=== PATIENT | female | born 1960 ===

== ENCOUNTER 2024-08-03 16:50 | Outpatient (CLI) | payer OTHER, SELFPAY ==
--- OUTSIDE RECORDS SUMMARY | 2024-08-03 16:55 | XMS_ITS | Encounter Summary ---
Author Organization [employer] Address [address] [place] [address] Care Team Providers Care Franchise Sales Manager Name Role Phone Clifford Newell Primary Care Provider + [phone] Encounter Details Date Type Department Care Team (Late st Contact Info) Description 07/31/2024 Documentation [facility] - [facility] [address] [place] [phone] Amanda Russell, CARDIAC SURGEON Social History Tobacco Use Types Packs/Day Years Used Date Smoking Tobacco: Never Smokeless Tobacco: Never Alcohol Use Standard Drinks/Week Comments Never 0 (1 standard drink = 0.6 oz pur e alcohol) Utilities Answer Date Recorded In the past 12 months, has t he electric, gas, oil, or water company threatened to shut off services in your home? No 07/12/2024 Interpersonal Safety Answer Date Record ed How often does anyone, venu thrasher family and friends, physically hurt you? Never 07/12/2024 How often does anyone, venu thrasher family and friends, insult or talk down to you? Never 07/12/2024 How often does anyone, venu thrasher family and friends, threaten you with harm? Never 07/12/2024 How often does anyone, venu thrasher family and friends, scream or curse at you? Never 07/12/2024 Housing Stability Answer Date Recorded What is your living situation today? I have a [facility] place to live 07/12/[address] you li ve. Do you have problems with any of the following? None of the above 07/12/2024 Food Insecurity Answer Date Recorded Within the past 12 months, y ou worried that your food would run out before you got money to buy more. Never true 07/12/2024 Within the past 12 months, t he food you bought just didn't last and you didn't have money to get more. Never true 07/12/2024 Transportation Needs Answer Date Record ed In the past 12 months, has l ack of reliable transportation kept you from medical appointments, meetings, work or from getting things needed for daily living? No 07/12/2024 Financial Resource Strain Answer Date R ecorded How hard is it for you to pa y for the very basics like food, housing, medical care, and heating? Would you say it is: Not hard at all 07/12/2024 Employment Answer Date Recorded Do you want help finding or keeping work or a job? I do not need or want help 07/12/2024 Family and Community Support Answer Baudilio e Recorded If for any reason you need h elp with day-to-day activities such as bathing, preparing meals, shopping, managing finances, etc., do you get the help you need? I don't need any help 07/12/2024 Feeling Lonely or Isolated 0 07/12 Educational Attainment Answer Date Kulwant rded Do you speak a language other than Emirati at [facility]? No 07/12/2024 Do you want help with school or training? For example, starting or completing job training or getting a high school diploma, GED or equivalent. No 07/12/2024 Physical Activity Answer Date Recorded Number of minutes of exercise per week 0 07/12/2024 Alcohol Use Answer Date Recorded 5 or More Drinks Per Day Past 12 Months 0 07/31/2024 Depression Answer Date Recorded Calculation of above two rows 0 Stress Answer Date Recorded Stress means a situation in which a person feels tense, restless, nervous, or anxious, or is unable to sleep at night because his or her mind is troubled all the time. Do you feel this kind of stress these days? Not at all 07/12/2024 Disabilities Answer Date Recorded Because of a physical, menta l, or emotional condition, do you have serious difficulty concentrating, remembering, or making decisions? (5 years or older) No 07/12/2024 Because of a physical, menta l, or emotional condition, do you have difficulty doing errands alone such as visiting a doctor's office or shopping? (15 years or older) No 07/12/2024 Substance Use Answer Date Recorded How many times in the past y ear have you used prescription drugs for non-medical reasons? Never 07/12/2024 How many times in the past year have you used [place] legal drugs? Never 07/12/2024 Comments No Sex and Gender Information Value Date Recorded Sex Assigned at Not on file Legal Sex Female 10:12 AM CDT Gender Identity Not on file Sexual Orientation Not on file documented as of this encounter Progress Notes * MP Rivera - 07/31/2024 10:09 AM ESTSummary: Hospice Referral Initial Social Work Assessment Patient:Francy Bailey :1960 alteration worker contacted today by patient's wavptevc-yl-vco, Wolfgang Bailey. Per [id number], patient and family have decided to transition to hospice care at home. alteration worker referred patient to [facility] today . Family was provided with manager social's contact information. Family was encouraged to contact me with any further questions or concerns. AINER FILLER documented in this encounter Plan of Treatment Not on file documented as of this encounter Visit Diagnoses Not on filedocumented in this encounter Care Teams Franchise Sales Manager Relationship Specialty Start Date End Date Clifford Newell PA [address] [place] [address] JERAD Ling [phone] PCP - General Physician Aed Trainer 10/14/23 documented as of this encounter
--- OUTSIDE RECORDS SUMMARY | 2024-08-03 16:55 | XMS_ITS | Encounter Summary ---
Author Organization [employer] Address [address] [place] [address] Care Team Providers Care Paste Mixer Liquid Name Role Phone Clifford Newell Primary Care Provider + [phone] Reason for Referral * Consultation (Routine) - New Request Specialty Diagnoses / Procedures Referred By Ana Paula anne Referred To Contact Hospice Services Diagnoses Multiple myeloma without remission (HCC) Caleb Pacheco MD [address] [facility] [employer] [address] [place] [phone] Phone: tel: fax: Referral ID Status Reason Start Date Expiration Date Visits Requested Visits Authorized [id number] New Request Specialty Services Required 07/25/2024 07/25/2025 1 1 Encounter Details Date Type Department Care Team (Late st Contact Info) Description 07/25/2024 Orders Only [facility] - [facility] [place] [address] Caleb Pacheco MD [address] [employer] [address] [place] [phone] Multiple myeloma without remission (HCC) (Primary Dx) Social History Tobacco Use Types Packs/Day Years [...] your living situation today? I have a [facility] place to live 07/12/2024 Think about the [...] Do you speak a language other than Comoran at [facility]? No 07/12/2024 Do you want help with school or training? For example, starting or completing job training or getting a high school diploma, GED or equivalent. No 07/12/2024 Physical Activity Answer Date Recorded Number of minutes of exercise per week 0 07/12/2024 Alcohol Use Answer Date Recorded 5 or More Drinks Per Day Past 12 Months 0 07/12/2024 Depression Answer Date Recorded Calculation of above [...] on file documented as of this encounter Plan of Treatment Scheduled Referrals Name Type Priority Associated Diagnoses Order Schedule Ambulatory referral to Hospice Outpatient Referral Routine Multiple myeloma without remission (HCC) Expected: 07/25/2024, Expires: 07/25/2025 documented as of this encounter Visit Diagnoses Diagnosis Multiple myeloma without remission (HCC)- Primary documented in this encounter Care Teams Paste Mixer Liquid Relationship Specialty Start Date End Date Clifford Newell PA [address] [place] [address] [place] [address] PCP - General Physician Powder Truck Driver 10/14/23 documented as of this encounter
--- OUTSIDE RECORDS SUMMARY | 2024-08-03 16:55 | XMS_ITS ---
Author Organization [employer] Address [address] [place] [address] Care Team Providers Care Cloth Printing Back Tender Name Role Phone Clifford Newell Primary Care Provider + [phone] Active Problems Problem Noted Date Diagnosed Date Sepsis 07/12/2024 Multiple myeloma without remission 06/16/2022 Current Oncology Plans [facility] DENOSUMAB (XGEVA) EVERY 28 DAYS* Plan Start Date:07/04/2024 Plan Provider:Caleb Pacheco MD Linked Problems Multiple myeloma without rem ission (HCC) Treatment Medications denosumab (XGEVA)sodium chlo ride 0.9 % (NS) [facility] LINE CARE - USE WITH INFUSIONS* Plan Start Date:02/29/2024 Linked Problems Multiple myeloma without rem ission (HCC) Treatment Medications No medications scheduled. [facility] Multiple Myeloma - elotuzumab (Empliciti) IV d1,8,15,22 + pomalidomide (Pomalyst) PO d1-21, fb elotuzumab IV d1 + pomalidomide PO d1-21, every 28 days * Plan Start Date:06/19/2024 Plan Provider:Caleb Pacheco MD Linked Problems Multiple myeloma without rem ission (HCC) Treatment Medications Current Day (Day 1 , Cycle 1 - Planned for 07/07/2024) Next Day (Day 8, Cycle 1 - Planned for 07/14/2024) dexamethasone (DECADRON) IVPBelotuzumab (Epliciti) infusiongranisetron (KYTRIL)sodium chloride 0.9 % (NS) dexAMETHasone (DECADRON) 20 mg in sodium chloride 0.9 % (NS) 50 mL IVPBelotuzumab (EMPLICITI) 1,000 mg in sodium chloride 0.9 % (NS) 290 mL infusiongranisetron (KYTRIL) injection 1 mgsodium chloride 0.9 % infusion elotuzumab (EMPLICITI) 1,000 mg in sodium chloride 0.9 % (NS) 290 mL infusiongranisetron (KYTRIL) injection 1 mgsodium chloride 0.9 % infusion Past Plans ONCOLOGY TREATMENT Plan Name Start Date Discontinue Date Treatment Medications Discontinue Reason Plan Provider Cycles [facility] Multiple Myeloma - carfilzomib (Kyprolis) 20/56 days 1,8,15 + pomalidomide (Pomalyst) 1mg PO days 1-21 + Dexamethasone weekly every 28 days 02/29/20 24 06/19/2024 Carfilzomib chemo infusiondexamethasone (DECADRON) IVPBdextrose 5 % (D5W)granisetron (KYTRIL)sodium chloride 0.9 % (NS) Progression Caleb Pacheco MD 4 of 12 cycles started [facility] Multiple Myeloma - daratumumab (Darzalex) IV d1,8,15,22 fb D1,15 fb d1 + pomalidomide (Pomalyst) PO d1-21 every 28 days 11/03/19 23 02/17/2024 daratumumab-hyaluronid ase-fihj (DARZALEX FASPRO) 1,800 mg-30,000 unit/15 mLsodium chloride 0.9 % (NS) Progression Caleb Pacheco MD 15 of 24 cycles started Therapy Infusion Plan 1 Plan Name Start Date Discontinue Date Treatment Medications Discontinue Reason Plan Provider [facility] BONE MODIFYING AGENT DENOSUMAB (PROLIA, XGEVA) 06/06/2024 06/13/2024 sodium chloride 0.9 % (NS)sodium chloride 0.9% (NS) Therapy Complete Caleb Pacheco MD [facility] BONE MODIFYING AGENT DENOSUMAB (PROLIA, XGEVA) 06/29/2023 06/06/2024 denosumab (XGEVA)sodium chloride 0.9 % (NS) Therapy Complete Caleb Pacheco MD [facility] BONE MODIFYING AGENT DENOSUMAB (PROLIA, XGEVA) 06/16/2022 06/29/2023 denosumab (XGEVA)sodium chloride 0.9 % (NS) Therapy Complete Caleb Pacheco MD Therapy Infusion Plan 2 Plan Name Start Date Discontinue Date Treatment Medications Discontinue Reason Plan Provider [facility] FILGRASTIM 01/19/2023 12/24/2023 No medication s scheduled. Therapy Complete Caleb Pacheco MD [facility] FILGRASTIM 11/25/2022 01/19/2023 No medication s scheduled. Therapy Complete Caleb Pacheco MD Radiation Treatments * No radiation treatments are documented for this patient in [facility]. Treatments may have been administered in another system.
--- OUTSIDE RECORDS SUMMARY | 2024-08-03 16:55 | XMS_ITS | Encounter Summary ---
Author Organization [employer] Address [address] [place] [address] Care Team Providers Care Roustabout Supervisor Name Role Phone Clifford Newell Primary Care Provider + [phone] Encounter Details Date Type Department Care Team (Late st Contact Info) Description 07/28/2024 Documentation [facility] - [facility] [address] [place] [phone] Shelby Nuñez RN Social History Tobacco Use Types Packs/Day Years [...] your living situation today? I [facility] a [facility] to live 07/12/2024 Think about the [...] Do you speak a language other than Frisian at [facility]? No 07/12/2024 Do you want help with [...] as of this encounter Progress Notes * Shelby Nuñez RN - 07/28/2024 8:24 AM EST Path report scanned TECHNIC ASSEMBLER documented in this encounter Plan of Treatment Not on file documented as of this encounter Visit Diagnoses Not on filedocumented in this encounter Care Teams Roustabout Supervisor Relationship Specialty Start Date End Date Clifford Newell PA [address] [place] [address] JER[place] Ling [phone] PCP - General Physician Asphalt Spreader Operator 10/14/23 documented as of this encounter
--- OUTSIDE RECORDS SUMMARY | 2024-08-03 16:55 | XMS_ITS | Encounter Summary ---
Author Organization [employer] Address [address] [place] [address] Care Team Providers Care District Manager Primary Care Sales Name Role Phone Clifford Newell Primary Care Provider + [phone] Encounter Details Date Type Department Care Team (Late st Contact Info) Description 07/28/2024 Social Work [facility] - [facility] [address] [place] [phone] Amanda Russell, SCROLL SAW OPERATOR Social History Tobacco Use Types Packs/Day Years [...] your living situation today? I have a [facility] place to live 07/12/2024 Think about [...] Do you speak a language other than [place] Korean at [facility]? No 07/12/2024 Do you want help with [...] encounter Progress Notes * MP Rivera - 07/28/2024 3:11 PM ESTSummary: Social work Note Initial Social Work Assessment Patient:Francy Bailey :1960 [employer] worker contacted by patient's brother, Rodney Thurmanibrahima. Patient's brother reported that patient has relocated to her son's home in [place], [place]. and she will remain there permanently. Brother reported that caregivers will be hired to assist with patients care. Per patient's brother, family and patient will decide this weekend if they wish to proceed with a hospice referral. Family provided with social director's contact information. They agreed to follow up with social director for hospice or home health referrals. MAKER documented in this encounter Plan of Treatment Not on file documented as of this encounter Visit Diagnoses Not on filedocumented in this encounter Care Teams District Manager Primary Care Sales Relationship Specialty Start Date End Date Clifford Newell PA [address] [place] [address] [place] [phone] PCP - General Physician Lehr Loader 10/14/23 documented as of this encounter
--- OUTSIDE RECORDS SUMMARY | 2024-08-03 16:55 | XMS_ITS | Clinical Summary ---
Author Organization [employer] Address [address] [place] [address] Care Team Providers Care Back Winder Name Role Phone Clifford Newell Primary Care Provider + [phone] Allergies Active Allergy Reactions Criticality Noted Date Comments Ampicillin Hives,Shortness Of Breath High 06/16/2022 07/12/24: Tolerated Rocephin Codeine 06/16/2022 Indomethacin 06/16/2022 Morphine 06/16/2022 Penicillin Hives High 06/16/2022 07/12/24: Tolerated Rocephin Medications busPIRone (BUSPAR) 15 MG tablet Take 1 tablet (15 mg total) by mouth 3 (three) times daily. 0 024 2024 Active cyanocobalamin 1000 MCG tablet Take 1 tablet (1,000 mcg total) by mouth daily. 0 024 2024 Active DULoxetine (CYMBALTA) 30 MG capsule Take 1 capsule (30 mg total) by mouth daily. 30 tablet 5 2024 Active ergocalciferol (DRISDOL) 1,250 mcg (50,000 unit) capsule Take 1 capsule (50,000 Units total) by mouth once a week. 4 capsule Active Additional Information Patient not taking.Reported on 07/21/2024 meclizine (ANTIVERT) 25 mg tablet Take 1 tablet (25 mg total) by mouth 4 (four) times daily as needed. 60 tablet 5 Active oxyCODONE (ROXICODONE) 10 MG tablet Take 1 tablet (10 mg total) by mouth every 4 (four) hours as needed (Pain). Max Daily Amount: 60 mg 4 tablet Active pomalidomide (Pomalyst) 1 mg cap Take 1 capsule (1 mg total) by mouth daily. 21 capsule Active Additional Information Patient not taking.Reported on 07/21/2024 simvastatin (ZOCOR) 10 MG tablet Take 1 tablet (10 mg total) by mouth nightly. 0 Active Additional Information Patient not taking.Reported on 07/21/2024 rifAXIMin (XIFAXAN) 550 mg tab Take 1 tablet (550 mg total) by mouth 2 (two) times daily for 30 days. 60 tablet 2023 Active Additional Information Patient not taking.Reported on 07/21/2024 metoprolol tartrate (LOPRESSOR) 25 MG tablet Take 0.5 tablets (12.5 mg total) by mouth 2 (two) times daily. 0 2024 Active Additional Information Patient not taking.Reported on 07/21/2024 BIOTIN ORAL Take 6,000 mcg by mouth. 2023 Discontinued cyanocobalamin (VITAMIN B-12) 1000 MCG tablet TAKE 1 TABLET BY MOUTH EVERY DAY ON AN EMPTY STOMACH FOR LOW VITAMIN B-12 2023 Discontinued ProAir HFA 90 mcg/actuation inhaler 2 puffs. 2023 Discontinued ascorbic acid, vitamin C, (VITAMIN C) 250 MG tablet Take 2 tablets (500 mg total) by mouth. 2023 Discontinued OneTouch Verio test strips Strp 2 (two) times daily. 2023 Discontinued busPIRone (BUSPAR) 15 MG tablet Take 1 tablet (15 mg total) by mouth 3 (three) times daily. 2023 Discontinued cyclobenzaprine (FLEXERIL) 5 MG tablet Take 1 tablet (5 mg total) by mouth 2 (two) times daily as needed. 2023 Discontinued ergocalciferol (ERGOCALCIFEROL) 1,250 mcg (50,000 unit) capsule Take 1 capsule (50,000 Units total) by mouth once a week. 2023 Discontinued fluticasone propionate (FLONASE) 50 mcg/actuation nasal spray 2 sprays daily. 2023 Discontinued gabapentin (NEURONTIN) 300 MG capsule Take 1 capsule (300 mg total) by mouth 3 (three) times daily. 2023 Discontinued Tab-A-Avery 400 mcg Tab Take 1 tablet by mouth daily. 2023 Discontinued PARoxetine (PAXIL) 30 MG tablet Take 1 tablet (30 mg total) by mouth daily. 2023 Discontinued potassium chloride SA (K-DUR,KLOR-CON-M ) 20 MEQ tablet Take 1 tablet (20 mEq total) by mouth daily. 2023 Discontinued Xarelto 20 mg tablet SMARTSI Tablet(s) By Mouth Every Evening 2023 Discontinued simvastatin (ZOCOR) 10 MG tablet Take 1 tablet (10 mg total) by mouth nightly. 2023 Discontinued cetirizine (ZyrTEC) 10 MG tablet Take 1 tablet (10 mg total) by mouth. 2023 Discontinued clonazePAM (KlonoPIN) 0.5 MG tablet Take 1 tablet (0.5 mg total) by mouth as needed. 2023 Discontinued Advair HFA 115-21 mcg/actuation inhaler 2 puffs 2 (two) times daily. 2023 Discontinued metoprolol succinate (TOPROL-XL) 25 MG 24 hr tablet Take 1 tablet (25 mg total) by mouth daily. 023 2023 Discontinued meclizine (ANTIVERT) 25 mg tablet Take 1 tablet (25 mg total) by mouth 4 (four) times daily as needed. 60 tablet 5 05/30/2 023 10/24/ 2024 Discontinued benzonatate (TESSALON) 100 MG capsule Take 1 capsule (100 mg total) by mouth 3 (three) times daily as needed for Cough for up to 30 doses. 30 capsule 023 2023 Discontinued oxyCODONE (OXY-IR) 10 mg tablet Take 1 tablet (10 mg total) by mouth every 4 (four) hours as needed for up to 100 doses. Max Daily Amount: 60 mg 100 tablet 2023 Discontinued UNKNOWN Take 1 tablet by mouth daily [facility] - for memory loss. 2023 Discontinued acyclovir (ZOVIRAX) 5 % ointment Apply topically every 3 (three) hours. 15 g 2 2023 Discontinued Pomalyst 1 mg Cap TAKE 1 CAPSULE BY MOUTH ONCE DAILY. 21 capsule 2023 Discontinued sulfamethoxazole- trimethoprim (BACTRIM DS) 800-160 mg per tablet Take 1 tablet (160 mg of trimethoprim total) by mouth 2 (two) times daily To begin on 04/13/2024. 20 tablet 2023 Discontinued DULoxetine (CYMBALTA) 30 MG capsule Take 1 capsule (30 mg total) by mouth daily. 30 tablet 5 2023 Discontinued fentaNYL (DURAGESIC) 25 mcg/hr patch Place 1 patch onto the skin every third day for 10 doses. Max Daily Amount: 1 patch 10 patch 2023 Discontinued promethazine (PHENERGAN) 12.5 MG tablet Take 1 tablet (12.5 mg total) by mouth every 6 (six) hours as needed for nausea or vomiting. 30 tablet 2023 Discontinued ondansetron (ZOFRAN-ODT) 4 MG disintegrating tablet Take 1 tablet (4 mg total) by mouth every 8 (eight) hours as needed. 12 tablet 2023 Discontinued nitrofurantoin, macrocrystal-mono hydrate, (MACROBID) 100 MG capsule Take 1 capsule (100 mg total) by mouth 2 (two) times daily with breakfast and dinner for 7 days. 14 capsule 024 2023 Discontinued nitrofurantoin, macrocrystal-mono hydrate, (MACROBID) 100 MG capsule Take 1 capsule (100 mg total) by mouth 2 (two) times daily with breakfast and dinner Start Date: 07/05/2024 for 7 days. 2023 Discontinued(S top Taking at Discharge) ondansetron (ZOFRAN-ODT) 4 MG disintegrating tablet Take 1 tablet (4 mg total) by mouth every 8 (eight) hours as needed for nausea or vomiting. 2023 Discontinued(S top Taking at Discharge) promethazine (PHENERGAN) 12.5 MG tablet Take 1 tablet (12.5 mg total) by mouth every 6 (six) hours as needed for nausea or vomiting. 2023 Discontinued(S top Taking at Discharge) gabapentin (NEURONTIN) 300 MG capsule Take 1 capsule (300 mg total) by mouth 3 (three) times daily Can take up to 2 caps as directed. 2023 Discontinued(S top Taking at Discharge) meclizine (ANTIVERT) 12.5 mg tablet Take 1-2 mg by mouth every 6 (six) hours as needed for dizziness. 2023 Discontinued(S top Taking at Discharge) simvastatin (ZOCOR) 10 MG tablet Take 1 tablet (10 mg total) by mouth nightly. 2023 Discontinued(S top Taking at Discharge) DULoxetine (CYMBALTA) 30 MG capsule Take 1 capsule (30 mg total) by mouth daily. 2023 Discontinued(S top Taking at Discharge) multivitamin per tablet Take 1 tablet by mouth daily. 2023 Discontinued(S top Taking at Discharge) cetirizine (ZyrTEC) 10 MG tablet Take 1 tablet (10 mg total) by mouth daily. 2023 Discontinued(S top Taking at Discharge) ergocalciferol (Vitamin D2) 1,250 mcg (50,000 unit) capsule Take 1 capsule (50,000 Units total) by mouth every 7 days. 2023 Discontinued(S top Taking at Discharge) aspirin 81 MG EC tablet Take 1 tablet (81 mg total) by mouth daily. 2023 Discontinued(S top Taking at Discharge) potassium chloride (KLOR-CON) 20 MEQ tablet Take 1 tablet (20 mEq total) by mouth daily. 2023 Discontinued(S top Taking at Discharge) metoprolol succinate (TOPROL-XL) 25 MG 24 hr tablet Take 1 tablet (25 mg total) by mouth daily. 2023 Discontinued(S top Taking at Discharge) rivaroxaban (XARELTO) 20 mg tablet Take 1 tablet (20 mg total) by mouth daily with dinner. 2023 Discontinued(S top Taking at Discharge) PARoxetine (PAXIL) 30 MG tablet Take 1 tablet (30 mg total) by mouth daily. 2023 Discontinued(S top Taking at Discharge) busPIRone (BUSPAR) 10 MG tablet Take 2 tablets (20 mg total) by mouth 3 (three) times daily. 2023 Discontinued(S top Taking at Discharge) cyanocobalamin 1000 MCG tablet Take 1 tablet (1,000 mcg total) by mouth daily. 2023 Discontinued(S top Taking at Discharge) oxyCODONE (ROXICODONE) 10 MG tablet Take 1 tablet (10 mg total) by mouth every 4 (four) hours as needed (Pain). Max Daily Amount: 60 mg 2023 Discontinued clonazePAM (KlonoPIN) 0.5 MG tablet Take 1 tablet (0.5 mg total) by mouth 2 (two) times daily as needed for anxiety. Max Daily Amount: 1 mg 2023 Discontinued(S top Taking at Discharge) albuterol 90 mcg/actuation inhaler Inhale 1-2 puffs by mouth via inhaler every 6 (six) hours as needed for wheezing. 2023 Discontinued(S top Taking at Discharge) gabapentin (NEURONTIN) 100 MG capsule Take 1 capsule (100 mg total) by mouth 3 (three) times daily for 2 days. Max Daily Amount: 300 mg 6 capsule 024 2023 valACYclovir (VALTREX) 1000 MG tablet Take 1 tablet (1,000 mg total) by mouth 3 (three) times daily for 9 days. 0 024 2023 lactulose (CHRONULAC) 20 gram/30 mL solution Take 30 mLs (20 g total) by mouth daily for 5 days. 150 mL 024 2023 Active Problems Problem Noted Date Diagnosed Date Sepsis 07/12/2024 Multiple myeloma without remission 06/16/2022 Encounters Date Type Department Care Team Description 07/31/2024 Documentation [facility] [address] [place] [id number] Amanda Russell, MAINTENANCE MECHANIC 07/28/2024 Social Work [facility] [address] [place] [address] Amanda Russell, MAINTENANCE MECHANIC 07/28/2024 Documentation [facility] [address] [place] [address] Shelby Nuñez, KOKI 07/27/2024 Documentation [facility] [address] [place] [address] Brandy Thomas, RN 07/25/2024 Orders Only [facility] [address] [place] [address] Caleb Pacheco MD Multiple myeloma without remission (HCC) (Primary Dx) 07/25/2024 Telephone [facility] [address] [place] [address] Caleb Pacheco MD hospice referral, gabapentin refill 07/21/2024 11:00 AM EDT Office Visit [facility] [address] [place] [address] Caleb Pacheco MD Multiple myeloma without remission (HCC) 07/21/2024 Travel 07/13/2024 Telephone [facility] [address] [place] [address] Caleb Pacheco MD PT update 07/12/2024 3:55 PM EDT - 07/20/2024 12:09 PM EDT Hospital Encounter [facility] 4 Interventional Care [address] [place] [address] Facundo Ackerman MD Tovar, Jesus V, MD Khan, Imran, MD Sepsis (HCC) (Primary Dx); Transient alteration of awareness; Anemia; Sepsis, due to unspecified organism, unspecified whether acute organ dysfunction present (HCC); Anemia, unspecified type Discharge Disposition: [facility] 07/12/2024 Travel 07/12/2024 Orders Only [facility] [address] [facility] [address] [place] [address] Caleb Pacheco MD 07/11/2024 Orders Only [facility] [address] [place] [address] [address] [place] [address] Caleb Pacheco MD 07/10/2024 Orders Only [facility] [address] [place] [address] [address] [place] [address] Caleb Pacheco MD 07/07/2024 12:15 PM EDT Infusion [facility] [address] [place] [address] Caleb Pacheco MD Multiple myeloma without remission (HCC) 07/07/2024 12:00 PM EDT Office Visit [facility] [address] [place] [address] Caleb Pacheco MD Multiple myeloma without remission (HCC) 07/07/2024 Documentation [facility] [address] [place] [address] Caleb Pacheco MD 07/07/2024 Travel 07/07/2024 Orders Only [facility] [address] [place] [address] Frank Castanon, PharmD BCPS 07/04/2024 12:01 PM EDT - 07/04/2024 9:[address] [facility] Emergency Department 1 [place] [address] Cuca Barajas MD Nausea and vomiting, unspecified vomiting type (Primary Dx); Urinary tract infection without hematuria, site unspecified Discharge Disposition: Home or Self Care 07/04/2024 Travel 07/04/2024 Telephone [facility] [address] [place] [address] Caleb Pacheco MD diarrhea, weakness,vertigo 2024 Orders Only [facility] [address] [place] [address] Caleb Pacheco MD 06/20/2024 Orders Only [facility] [address] [place] [address] Caleb Pacheco MD Multiple myeloma without remission (HCC) (Primary Dx) 06/20/2024 Orders Only [facility] [address] [place] [address] Caleb Pacheco MD 06/19/2024 Orders Only [facility] [address] [place] [address] Frank Castanon, PharmD BCPS 06/16/2024 Orders Only [facility] [address] [place] [address] Caleb Pacheco MD 06/16/2024 Refill [facility] [address] [place] [address] Caleb Pacheco MD 06/13/2024 2:15 PM EDT Infusion [facility] [address] [place] [address] Caleb Pacheco MD Multiple myeloma without remission (HCC) (Primary Dx) 06/13/2024 1:15 PM EDT Office Visit [facility] [address] [place] [address] Caleb Pacheco MD Multiple myeloma without remission (HCC) 06/13/2024 Travel 06/13/2024 Orders Only [facility] [address] [place] [address] Caleb Pacheco MD 06/06/2024 11:00 AM EDT Infusion [facility] [address] [place] [address] Caleb Pacheco MD Multiple myeloma without remission (HCC) (Primary Dx); Pain in both lower extremities 06/06/2024 Orders Only [facility] [address] [place] [address] Caleb Pacheco MD 06/06/2024 Travel 05/29/2024 Telephone [facility] [address] [place] [address] Caleb Pacheco MD appointment change request 05/26/2024 12:30 PM EDT Infusion [facility] [address] [place] [address] Caleb Pacheco MD Multiple myeloma without remission (HCC) (Primary Dx) 05/26/2024 12:15 PM EDT Office Visit [facility] [address] [place] [address] Caleb Pacheco MD Multiple myeloma without remission (HCC) 05/26/2024 Travel 05/19/2024 Orders Only [facility] [address] [place] [address] Caleb Pacheco MD Multiple myeloma without remission (HCC) (Primary Dx) 05/15/2024 Telephone [facility] [address] [place] [address] Caleb Pacheco MD reschedule appointment on 05/26/24 05/12/2024 10:00 AM EDT Infusion [facility] [address] [place] [address] Caleb Pacheco MD Multiple myeloma without remission (HCC) (Primary Dx) 05/12/2024 9:45 AM EDT Office Visit [facility] [address] [place] [address] Caleb Pacheco MD Multiple myeloma without remission (HCC) 05/12/2024 Travel 05/08/2024 Telephone [facility] [address] [place] [address] Caleb Pacheco MD reschedule appointment 05/04/2024 Orders Only [facility] [address] [place] [address] Caleb Pacheco MD Multiple myeloma without remission (HCC) (Primary Dx) from Last 3 Months Family History Medical History Relation Name Comments Heart attack Father Dementia Mother Relation Name Status Comments Father Mother Social History Tobacco Use Types Packs/Day Years Used Date Smoking Tobacco: Never Smokeless Tobacco: Never Tobacco Cessation:Counseling Given: Not Answered Alcohol Use Standard Drinks/Week Comments Never 0 (1 standard drink = 0.6 oz pur e alcohol) Utilities Answer Date Recorded In the past 12 months, has t he [employer], gas, oil, or water [employer] threatened to shut off services in your [...] Do you speak a language other than Uzbek at [facility]? No 07/12/2024 Do you want help [...] on file Sexual Orientation Not on file Last Filed Vital Signs Vital Sign Reading Time Taken Comments Blood Pressure 146/99 07/21/2024 10:44 AM EDT Pulse 120 07/21/2024 10:44 AM EDT Temperature 36.6 ??C (97.9 ??F) 07/21/2024 10:44 AM E DT Respiratory Rate 18 07/21/2024 10:44 AM EDT Oxygen Saturation 96% 07/21/2024 10:44 AM EDT Inhaled Oxygen Concentration - - Weight 98 kg (216 lb) 07/12/2024 3:57 PM EDT Height 177.8 cm (5' 10 ) 07/15/2024 12:28 PM EDT Body Mass Index 30.99 07/12/2024 3:57 PM EDT Plan of Treatment Health Maintenance Due Date Last Done Comments Medicare Initial AWV G0438 CT Colonography 1959 DXA SCAN 1959 FOBT/FIT 1959 Fit-DNA (Cologuard) 1959 Sigmoidoscopy 1959 COVID-19 VACCINE (#1) 1964 Depression Screening (12+) 1971 HIV Screening 1974 Hepatitis C Screening 1977 Pap Smear 1980 Respiratory Syncytial Virus (RSV) Adult or (1 - Risk 60-74 years 1-dose series) 2019 Pneumococcal 65+ years (3 of 3 - PPSV23 or PCV20) 11/06/2021 09/11/2021, 06/30/2021, 07/06/2012 Falls Risk Screening 09/20/2023 Influenza Vaccine (#1) 2024 2, 06/30/2021, 06/30/2021, Additional history exists Lipid Panel 06/30/2024 06/30/2021, 07/29/2020 Tobacco Cessation Counseling and Screening (12+) 07/21/2025 07/21/2024 Breast Cancer Screening 10/14/2025 10/14/2023 Colonoscopy 04/22/2030 04/22/2020 Colorectal Cancer Screening 04/22/2030 DTAP/TDAP/TD VACCINES (4 - T d or Tdap) 09/11/2031 09/11/2021, 06/30/2021, 06/06/2012 Shingles Vaccine (Zoster) Completed 09/11/2021, 07/2021 Procedures Procedure Name Priority Date/Time Associated Diagnosis Comments CBC HEMOGRAM (SJ-BKR) Routine 07/20/2024 8:17 AM EDT POTASSIUM STAT 07/19/2024 9:27 AM EDT BASIC METABOLIC PANEL Routine 07/19/2024 9:27 AM EDT NOVA GLUCOSE POC Routine 07/19/2024 7:29 AM EDT NOVA GLUCOSE POC Routine 07/18/2024 9:14 PM EDT NOVA GLUCOSE POC Routine 07/18/2024 4:[address] BIOPSY SITE - BONE MARROW Routine 07/18/2024 2:27 PM EDT BONE MARROW SMEAR, ASPIRATION, AND STAIN AP Routine 07/18/2024 12:42 PM EDT Sepsis (HCC) Transient alteration of awareness Anemia Sepsis, due to unspecified organism, unspecified whether acute organ dysfunction present (HCC) Anemia, unspecified type NOVA GLUCOSE POC Routine 07/18/2024 12:1 5 PM EDT NOVA GLUCOSE POC Routine 07/18/2024 6:15 AM EDT AMMONIA Routine 07/18/2024 5:13 AM EDT TSH Routine 07/18/2024 5:13 AM EDT CBC HEMOGRAM (SJ-BKR) Routine 07/18/2024 5:13 AM EDT BASIC METABOLIC PANEL Routine 07/18/2024 5:13 AM EDT NOVA GLUCOSE POC Routine 07/18/2024 12:5 7 AM EDT NOVA GLUCOSE POC Routine 07/17/2024 6:08 PM EDT ECHO COMPLETE (DOPPLER / COLOR) WO CONTRAST Routine 07/17/2024 11:49 AM EDT NOVA GLUCOSE POC Routine 07/17/2024 11:4 4 AM EDT AMMONIA Routine 07/17/2024 10:31 AM EDT NOVA GLUCOSE POC Routine 07/17/2024 8:26 AM EDT [facility] CBC SCAN Routine 07/17/2024 8:06 AM EDT COMPREHENSIVE METABOLIC PANEL Routine 07/17/2024 8:06 AM EDT CBC W/ AUTO DIFF Routine 07/17/2024 8:06 AM EDT NOVA GLUCOSE POC Routine 07/17/2024 6:00 AM EDT NOVA GLUCOSE POC Routine 07/17/2024 12:0 2 AM EDT FS_MODEL_IP_ECG 12-LEAD Routine 07/16/20 6:04 PM EDT POTASSIUM Routine 07/16/2024 5:40 PM EDT NOVA GLUCOSE POC Routine 07/16/2024 4:03 PM EDT FS_MODEL_IP_ECG 12-LEAD STAT 07/16/20 2:52 PM EDT NOVA GLUCOSE POC Routine 07/16/2024 1:00 PM EDT MAGNESIUM Add-On 07/16/2024 6:54 AM EDT AMMONIA Routine 07/16/2024 6:54 AM EDT CBC HEMOGRAM (SJ-BKR) Routine 07/16/2024 6:54 AM EDT BASIC METABOLIC PANEL Routine 07/16/2024 6:54 AM EDT NOVA GLUCOSE POC Routine 07/16/2024 5:15 AM EDT XR CHEST AP PORTABLE STAT 07/16/2024 3:32 AM EDT NOVA GLUCOSE POC Routine 07/15/2024 11:5 1 PM EDT NOVA GLUCOSE POC Routine 07/15/2024 6:20 PM EDT HEPATIC FUNCTION PANEL Add-On 2:39 PM EDT MAGNESIUM STAT 07/15/2024 2:39 PM EDT FS_MODEL_IP_ECG 12-LEAD Routine 07/15/20 1:44 PM EDT XR ABDOMEN/KUB 1 VIEW PORTABLE STAT 07/15/2024 12:00 PM EDT NOVA GLUCOSE POC Routine 07/15/2024 11:5 2 AM EDT MAGNESIUM Add-On 07/15/2024 6:13 AM EDT PHOSPHORUS Add-On 07/15/2024 6:13 AM EDT CBC HEMOGRAM (SJ-BKR) Routine 07/15/2024 6:13 AM EDT BASIC METABOLIC PANEL Routine 07/15/2024 6:13 AM EDT AMMONIA Routine 07/15/2024 6:13 AM EDT US LIVER Routine 07/14/2024 4:35 PM EDT BLOOD GAS, ARTERIAL STAT 07/14/2024 8 :15 AM EDT BASIC METABOLIC PANEL Routine 07/14/2024 6:20 AM EDT AMMONIA Routine 07/14/2024 6:19 AM EDT CBC HEMOGRAM (SJ-BKR) Routine 07/14/2024 6:19 AM EDT HEMOGLOBIN AND HEMATOCRIT Routine 07/13/2024 7:43 PM EDT HAPTOGLOBIN(SENDOUT) Routine 07/13/2024 7:43 PM EDT FS_MODEL_IP_TRANSFUSE RED BLOOD CELLS Routine 07/13/2024 12:38 PM EDT FS_MODEL_IP_TRANSFUSE RED BLOOD CELLS Routine 07/13/2024 8:26 AM EDT FS_MODEL_IP_PREPARE RBC Routine 07/13/20 6:53 AM EDT CALCIUM, IONIZED STAT 07/13/2024 6:37 AM EDT LACTATE DEHYDROGENASE (LDH) Add-On 07/13/2024 6:08 AM EDT FERRITIN Add-On 07/13/2024 6:08 AM EDT IRON AND TIBC Add-On 07/13/2024 6:08 AM EDT COMPREHENSIVE METABOLIC PANEL STAT 07/13/2024 6:08 AM EDT CBC HEMOGRAM (SJ-BKR) STAT 07/13/2024 6:08 AM EDT FOLATE, SERUM Add-On 07/13/2024 6:08 AM EDT AMMONIA STAT 07/13/2024 6:02 AM EDT URINE DRUG SCREEN STAT 07/13/2024 5:4 1 AM EDT FS_MODEL_IP_TRANSFUSE RED BLOOD CELLS Routine 07/13/2024 1:25 AM EDT URINALYSIS MICROSCOPIC STAT 7:47 PM EDT URINALYSIS, REFLEX MICROSCOPIC AND CULTURE IF INDICATED STAT 07/12/2024 7:47 PM EDT FS_MODEL_IP_TRANSFUSE RED BLOOD CELLS Routine 07/12/2024 7:34 PM EDT DIRECT JIN/BAUDILIO ([place] BKR) Routine 07/12/2024 5:22 PM EDT ABO/RH - ABORHTUBE ([place] BKR) Routine 07/12/2024 5:22 PM EDT ANTIBODY SCREEN ([place] BKR) Routine 07/12/2024 5:22 PM EDT HEMOGLOBIN AND HEMATOCRIT STAT 07/12/2024 5:[address] CHEST ABDOMEN PELVIS W CONTRAST STAT 07/12/2024 5:[address] BRAIN WITHOUT IV CONTRAST STAT 07/12/2024 5:07 PM EDT FS_MODEL_IP_PREPARE RBC STAT 07/12/20 5:01 PM EDT SARS-COV2 PCR (COVID 19) STAT 07/12/2024 4:47 PM EDT PHOSPHORUS Add-On 07/12/2024 4:46 PM EDT MAGNESIUM Add-On 07/12/2024 4:46 PM EDT VITAMIN B12 Add-On 07/12/2024 4:46 PM EDT PROCALCITONIN Add-On 07/12/2024 4:46 PM EDT [facility] PERIPHERAL SMEAR PATH REVIEW Routine 07/12/2024 4:46 PM EDT MANUAL DIFFERENTIAL Routine 07/12/2024 4 :46 PM EDT LIPASE STAT 07/12/2024 4:46 PM EDT LACTIC ACID WITH REFLEX STAT 07/12/20 4:46 PM EDT COMPREHENSIVE METABOLIC PANEL STAT 07/12/2024 4:46 PM EDT CBC W/ AUTO DIFF STAT 07/12/2024 4:46 PM EDT XR CHEST AP PORTABLE STAT 07/12/2024 4:27 PM EDT BLOOD CULTURE STAT 07/12/2024 4:20 PM EDT BLOOD CULTURE STAT 07/12/2024 4:20 PM EDT FS_MODEL_IP_ECG 12-LEAD Routine 07/12/20 4:05 PM EDT NOVA GLUCOSE POC Routine 07/12/2024 3:59 PM EDT EKG-SCANNED 07/12/2024 EKG-SCANNED 07/12/2024 URINALYSIS MICROSCOPIC STAT 8:02 PM EDT URINALYSIS, REFLEX MICROSCOPIC AND CULTURE IF INDICATED STAT 07/04/2024 8:02 PM EDT URINE CULTURE STAT 07/04/2024 8:[address] ABDOMEN/PELVIS WITH IV CONTRAST STAT 07/04/2024 4:25 PM EDT XR CHEST 1 VIEW PORTABLE / BEDSIDE STAT 07/04/2024 12:41 PM EDT MAGNESIUM Add-On 07/04/2024 12:29 PM EDT TSH STAT 07/04/2024 12:29 PM EDT LIPASE STAT 07/04/2024 12:29 PM EDT COMPREHENSIVE METABOLIC PANEL STAT 07/04/2024 12:29 PM EDT LACTIC ACID WITH REFLEX STAT 07/04/20 12:29 PM EDT CBC W/ AUTO DIFF STAT 07/04/2024 12:2 9 PM EDT SARS-COV2 PCR (COVID 19) STAT 07/04/2024 12:29 PM EDT IMMUNOFIX ELECTROPHORESIS BILL(SENDOUT) Routine 06/13/2024 3:45 PM EDT Multiple myeloma without remission (HCC) IMMUNOGLOBULIN A(SENDOUT) Routine 06/13/2024 3:45 PM EDT Multiple myeloma without remission (HCC) IMMUNOGLOBULIN M(SENDOUT) Routine 06/13/2024 3:45 PM EDT Multiple myeloma without remission (HCC) IMMUNOGLOBULIN G(SENDOUT) Routine 06/13/2024 3:45 PM EDT Multiple myeloma without remission (HCC) KAPPA-LAMBDA QUANT FLC WITH RATIO(SENDOUT) Routine 06/13/2024 3:45 PM EDT Multiple myeloma without remission (HCC) PROTEIN ELECTROPHORESIS W RFLX TO RALPH(SENDOUT) Routine 06/13/2024 3:45 PM EDT Multiple myeloma without remission (HCC) CBC W/ AUTO DIFF STAT 06/13/2024 2:43 PM EDT Multiple myeloma without remission (HCC) ONOCOLOGY CHEMISTRY PANEL STAT 06/06/2024 11:11 AM EDT Multiple myeloma without remission (HCC) CBC W/ AUTO DIFF STAT 06/06/2024 10:5 2 AM EDT Multiple myeloma without remission (HCC) CBC W/ AUTO DIFF STAT 05/26/2024 11:4 3 AM EDT Multiple myeloma without remission (HCC) ONOCOLOGY CHEMISTRY PANEL Routine 05/26/2024 11:43 AM EDT Multiple myeloma without remission (HCC) HEPATIC FUNCTION PANEL Routine 11:43 AM EDT Multiple myeloma without remission (HCC) CBC W/ AUTO DIFF STAT 05/12/2024 10:3 8 AM EDT Multiple myeloma without remission (HCC) MM DIGITAL MAMMO SCREEN BILATERAL Routine 10/14/2023 9:05 AM EST Encounter for screening mammogram for malignant neoplasm of breast from Last 3 Months or Most Recently Relevant to Health Maintenance Results * (ABNORMAL) CBC - Hemogram (SJ-BKR) (07/20/2024 8:17 AM EDT) Only the most recent of6 resultswithin the time period is included. WBC 5.5 4.0 - 10.0 K/??L 07/20/2024 8:53 AM EDT [facility] RBC 2.87(L) 3.93 - 5.22 M/??L 07/20/2024 8:53 AM EDT [facility] Hemoglobin 8.9(L) 11.2 - 15.7 GM/DL 07/20/2024 8:53 AM EDT [facility] Hematocrit 30.0(L) 34.1 - 44.9 % 07/20/2024 8:53 AM EDT [facility] MCV 105(H) 79 - 95 fL 07/20/2024 8:53 AM EDT [facility] MCH 31.0 25.6 - 32.2 pg 07/20/2024 8:53 AM EDT [facility] MCHC 29.7(L) 32.2 - 35.5 GM/DL 07/20/2024 8:53 AM EDT [facility] RDW 16.6(H) 11.7 - 14.4 % 07/20/2024 8:53 AM EDT [facility] Platelets 40(LL) 140 - 375 K/CU MM 07/20/2024 8:53 AM EDT [facility] MPV 13.5(H) 9.4 - 12.3 fL 07/20/2024 8:53 AM EDT [facility] Blood Venipuncture / Unknown 07/20/2024 8:17 AM EDT 07/20/2024 8:35 AM EDT us Chandra Jose MD LAB BLOOD ORDERABLES Final Resul t [facility] [address] [phone] * (ABNORMAL) Potassium (07/19/2024 9:27 AM EDT) Only the most recent of2 resultswithin the time period is included. Potassium 3.4(L) 3.5 - 5.1 meq/L 07/19/2024 9:58 AM EDT [facility] Blood Venipuncture / Unknown 07/19/2024 9:27 AM EDT 07/19/2024 9:32 AM EDT us Chandra Jose MD LAB BLOOD ORDERABLES Final Resul t [facility] [address] [phone] * (ABNORMAL) Basic Metabolic Panel (07/19/2024 9:27 AM EDT) Only the most recent of5 resultswithin the time period is included. Sodium 140 136 - 146 meq/L 07/19/2024 10:02 AM EDT [facility] Potassium 3.4(L) 3.5 - 5.1 meq/L 07/19/2024 10:02 AM EDT [facility] Chloride 110 102 - 112 meq/L 07/19/2024 10:02 AM EDT [facility] CO2 20(L) 21 - 32 meq/L 07/19/2024 10:02 AM EDT [facility] Anion Gap 13 9 - 20 07/19/2024 10:02 AM EDT [facility] BUN 11 7 - 22 mg/dL 07/19/2024 10:02 AM EDT [facility] Creatinine 0.47(L) 0.55 - 1.02 mg/dL 07/19/2024 10:02 AM EDT [facility] BUN/Creatinine 23(H) 8 - 20 07/19/2024 10:02 AM EDT [facility] Glucose 118(H) 74 - 106 mg/dL 07/19/2024 10:02 AM EDT [facility] Calcium 7.3(L) 8.4 - 10.1 mg/dL 07/19/2024 10:02 AM EDT [facility] Osmolality Calc 279.9 10:02 AM EDT [facility] eGFR (mL/min/1.73m2) >60 >=60 mL/min/1.7 3m2 07/19/2024 10:02 AM EDT [facility] Comment:eGFR of <60 suggests chronic kidney disease if found over a 3 month period of time. eGFR <15 indicates renal failure. Blood Venipuncture / Unknown 07/19/2024 9:27 AM EDT 07/19/2024 9:32 AM EDT us Chandra Jose MD LAB BLOOD ORDERABLES Final Resul t Performing Organization Address City/[facility] Co de Phone Number [facility] [address] [phone] * (ABNORMAL) Glucose, Nova Meter (07/19/2024 7:29 AM EDT) Only the most recent of18 resultswithin the time period is included. Pathologist [facility] POC-GLUCOSE 111(H) 70 - 110 mg/dL 07/19/2024 7:31 AM EDT [facility] Comment:In the event of poor peripheral blood flow, venous or arterial blood should be used due to the potential of erroneous results. Dollyman [id number] 07/19/2024 7:31 AM EDT [facility] Blood WHOLE BLOOD / Unknown 07/19/2024 7:29 AM EDT 07/19/2024 7:31 AM EDT Narrative [facility] - 07/19/2024 7:31 AM EDT Dollyman ID is - [id number] us Chandra Jose MD POINT OF CARE TEST ORDERABLES Fi nal Result Performing Organization Address City/[facility]/ZIP Co de Phone Number [facility] [address] [phone] * CT BIOPSY SITE - BONE MARROW (07/18/2024 2:27 PM EDT) Anatomical Region Laterality Modality Bone Computed Tomogra phy (CT) 07/18/2024 3:32 PM EDT Impressions 07/18/2024 3:35 PM EDT Status post CT guided bone marrow biopsy without immediate complication. PROCEDURAL SEDATION: 1 mg of IV Versed and 50 mcg of Fentanyl were administered. Continuous vital sign monitoring was used. An RN was present during the sedation process. Overall sedation time was 15 minutes. Images reviewed, interpreted, and dictated by Dr. Cristi Garrison. Transcribed by Serge Castillo PA-C. Narrative 07/18/2024 3:[address] GUIDED BONE MARROW BIOPSY HISTORY: ??Severe anemia and thrombocytopenia. ATTENDING PHYSICIAN: Dr. Garrison PHYSICIAN HISTORIC INTERPRETER: Serge Castillo PA-C PROCEDURE: This study was performed with techniques to keep radiation doses as low as reasonably achievable, (ALARA). Individualized dose reduction techniques using automated exposure control or adjustment of mA and/or kV according to the patient size were employed. After informed consent was obtained and a timeout was performed, the patient was prepped and draped in usual sterile fashion over the posterior superior iliac spine. Utilizing local anesthesia and sterile technique with a bone marrow biopsy system, access to marrow was obtained. Both marrow aspirates and marrow core biopsy passes were made. The patient received no procedural sedation. The patient tolerated the procedure well and left the department in good condition. Procedure Note Cristi Garrison MD - 07/18/2024 CT GUIDED BONE MARROW BIOPSY HISTORY: Severe anemia and thrombocytopenia. ATTENDING PHYSICIAN: Dr. Garrison PHYSICIAN HISTORIC INTERPRETER: Serge Castillo PA-C PROCEDURE: This study was performed with techniques to keep radiation doses as low as reasonably achievable, (ALARA). Individualized dose reduction techniques using automated exposure control or adjustment of mA and/or kV according to the patient size were employed. After informed consent was obtained and a timeout was performed, the patient was prepped and draped in usual sterile fashion over the posterior superior iliac spine. Utilizing local anesthesia and sterile technique with a bone marrow biopsy system, access to marrow was obtained. Both marrow aspirates and marrow core biopsy passes were made. The patient received no procedural sedation. The patient tolerated the procedure well and left the department in good condition. IMPRESSION: Status post CT guided bone marrow biopsy without immediate complication. PROCEDURAL SEDATION: 1 mg of IV Versed and 50 mcg of Fentanyl were administered. Continuous vital sign monitoring was used. An RN was present during the sedation process. Overall sedation time was 15 minutes. Images reviewed, interpreted, and dictated by Dr. Cristi Garrison. Transcribed by Serge Castillo PA-C. us Lico Rogers MD [facility] CT ORDERABLES Final Result * [facility] BONE MARROW SMEAR, ASPIRATION, AND STAIN (07/18/2024 12:42 PM EDT) AP RESULT See Note: [facility] Comment: [facility] [address] ?[place], [place] ??[address] or [phone] Forrest Rosado M.D., [employer] Engineer PATIENT NAME ?LABORATORY NO. [id number] ??ASHER DANIEL. ? [id number] [id number] [facility] ?AGE ?SEX ?? SSN ? CLIENT REF # [id number] ? 1960 F ? [id number] [address] [place] [address] ?REQUESTING M.D. ?? ATTENDING M.D.. ?? COPY TO.. LICO ROGERS DATE COLLECTED ?DATE RECEIVED ? DATE REPORTED 07/18/2024 ?07/18/2024 ?07/19/2024 ADDENDUM PRESENT ADDENDUM: This addendum is being released to report the result of additional testing which shows abnormal findings, see below. ??The diagnosis remains unchanged. 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 DIAGNOSIS: PERIPHERAL SMEAR , BONE MARROW ASPIRATION SMEAR , BONE MARROW ASPIRATE CLOT , BONE MARROW CORE BIOPSY BONE MARROW: Persistent/relapsed plasma cell myeloma representing ~80% of hypercellular bone marrow with decreased trilineage hematopoiesis. See comment. FLOW CYTOMETRY: Prominent lambda clonal plasma cell population identified, positive for CD56 and CD117. PERIPHERAL BLOOD: Macrocytic anemia with rouleaux formation. ??Leukopenia. ??Thrombocytopenia. COMMENT: Karyotype and myeloma FISH panel result are pending. ??These findings were communicated to Dr. Rogers by Dr. Perkins on 07/19/2024. CLINICAL HISTORY: Sepsis, Transient alteration of awareness, Anemia, Sepsis Patient has known history of multiple myeloma diagnosed in 2018 and recently presented with increased confusion and altered mental status. ??Patient recently had UTI with Klebsiella pneumoniae resistant to ampicillin and Bactrim in June. CLINICAL LABORATORY DATA WBC ?3.9 x10/3/-L RDW ?17.5% HGB ?7.5 g/dl ?PLT ? 30 x10/3/-L HCT ?23.4% MCV ?98fL PERIPHERAL SMEAR MICROSCOPIC DESCRIPTION: RBCs show macrocytic anemia with rouleaux formation. ??There is no significant increase in schistocytes population. ??WBCs show leukopenia with normal granulocyte morphology. ??No definitive circulating plasma cells or blasts identified. ??Platelets are decreased and show normal morphology. BONE MARROW ASPIRATION MICROSCOPIC DESCRIPTION: Aspirate smears are spicular and hypercellular. ??There is a significantly increased plasma cell population which comprises 80% of the total cellularity. ??There are frequent large atypical plasma cells which show prominent nucleoli, clumped chromatin or bi/multinucleation. ??There are decreased myeloid and erythroid precursors in the background with no high-grade dysplasia. ??Lymphocytes are not increased. ??Occasional unremarkable megakaryocytes are identified. BONE MARROW ASPIRATE CLOT MICROSCOPIC DESCRIPTION: The clot section shows multiple small spicules for review. The spicules have a average cellularity of approximately 80%, which is hypercellular for patient age. The cellular composition is similar to that of the core biopsy with increased sheets of plasma cells. ??There is maturing trilineage hematopoiesis in the background showing full maturation but is decreased. BONE MARROW CORE BIOPSY MICROSCOPIC DESCRIPTION: The core biopsy shows approximately 17 mm of marrow for review. The marrow shows variable cellularity ranging from 60 to 95% with an average of 80% which is hypercellular for patient age. ??It shows increased sheets of plasma cells distributed throughout the marrow. ??There is background maturing trilineage hematopoiesis. One immunohistochemical stain is performed. ??It was also evaluated by flow cytometry but is necessary to repeat on tissue for precise estimation of plasma cells which can often remain underrepresented on flow cytometry. ??CD138 identifies increased sheets of plasma cells which comprise 80% of the overall cellularity. FLOW CYTOMETRY: Interpretation: Prominent lambda clonal plasma cell population identified, positive for CD56 and CD117. The specimen viability is 93.8%. Flow cytometric analysis shows a heterogeneous cellular population. Blasts as indicated by low density CD45 antigen expression and CD34 expression are not increased (0.2%). Granulocytes show partial normal maturation pattern. ??Monocytes (11.5%) are immunophenotypically unremarkable. Lymphocytes are not increased (13.7%). T-cells (5.1%) show preserved expression of magaña-T-cell markers and have a CD4:CD8 ratio of 0.7:1. B-cells (2.5%) are polyclonal with a kappa to lambda ratio of 1.4. ??No hematogone population is identified. ??There is a prominent population of monoclonal plasma cell population (~30%) which shows right expression of CD38, CD138, lambda, bright CD56 and dim CD117. The following antibodies were evaluated by flow cytometry: CD2, CD3, CD4, CD5, CD7, CD8, CD10, CD13, CD14, CD15, CD16, CD19, CD20, CD33, CD34, CD38, CD45, CD56, CD57, CD117, CD123, HLA-DR, Blue [place], and Lambda. These tests use analyte specific reagents. The performance of these analyte specific reagents was determined by [facility] (see above for address). These tests have not been cleared or approved by the U.S. Food & Drug Administration (FDA). The FDA has determined that such approval is not necessary. These tests are used for clinical purposes and should not be considered experimental or research. Interpretation performed by Dr. Perkins. Professional interpretation rendered by Antonia Perkins M.D., MPH at [email or web address] [facility], [address] [place] [address]. GROSS DESCRIPTION: A. ?? Received 1 peripheral blood smears slides for review. B. ?? Received 5 aspirate smears slides for review. C. ?? Labeled first draw lpic consists of multiple pieces of red hemorrhagic soft tissue measuring 1.6 x 1.0 x 0.3 cm in aggregate. ??Specimen is filtered and submitted entirely in 1 block. D. ?? Labeled LPIC consists of a single portion of thorpe firm cylindrical soft tissue measuring 1.9 cm in length, and 0.3 cm in diameter. ??Specimen is submitted in 1 block following brief decalcification. ??BKO REVIEWED, DIAGNOSED AND ELECTRONICALLY SIGNED BY: Antonia Perkins M.D., MPH CPT CODES: ? 92436, 2FLP, 6FLP, 13854, 36864v2, 89787, 66048 Bone Marrow BONE MARROW STRUCTURE / Unknown 07/18/2024 12:42 PM EDT us Lico Rogers MD PATHOLOGY/CYTOLOGY ORDERABLES Edited Result - Final [facility] [address] [place] [address] * (ABNORMAL) TSH (07/18/2024 5:13 AM EDT) Only the most recent of2 resultswithin the time period is included. TSH 0.230(L) 0.358 - 3.740 uIU/mL 07/18/2024 6:02 AM EDT [facility] Blood Venipuncture / Unknown 07/18/2024 5:13 AM EDT 07/18/2024 5:28 AM EDT Narrative [facility] - 07/18/2024 6:02 AM EDT Biotin supplements can cause clinically significant incorrect lab results. The FDA has seen an increase in the number of reported adverse events related to biotin interference with lab tests. Chandra Jose MD LAB BLOOD ORDERABLES Final Resul t Performing Organization Address City/[facility] Co de Phone Number [facility] [address] [phone] * (ABNORMAL) Ammonia (07/18/2024 5:13 AM EDT) Only the most recent of6 resultswithin the time period is included. Ammonia 47(H) 11 - 32 ??mol/L 07/18/2024 5:47 AM EDT [facility] Comment:[employer] has become aware of sulfasalazine and sulfapyridine drug interference in the assays ALT, AST, T4, CKMB, glucose, and ammonia. The probability of misinterpretation of results for the assays is remote and would be limited to scenarios where a patient has taken the drug and had a blood sample drawn before clearance of the drug to a level that does not interfere with laboratory testing. Venipuncture should occur prior to administration of the drug. Blood Venipuncture / Unknown 07/18/2024 5:13 AM EDT 07/18/2024 5:28 AM EDT Chandra Jose MD LAB BLOOD ORDERABLES Final Resul t Performing Organization Address [facility]/ZIP Co de Phone Number [facility] [address] [phone] * ECHO COMPLETE (DOPPLER / COLOR) WO CONTRAST (07/17/2024 11:49 AM EDT) Anatomical Region Laterality Modality Heart Vascular Ultraso und 07/17/2024 10:4 7 AM EDT Narrative 07/17/2024 5:47 PM EDT TRANSTHORACIC ECHOCARDIOGRAPHY REPORT Demographics Patient Name: ? FREDY ASHER ?: ? 1960 ? [place] Medical Record ?[id number] ?Age: ? 64 year(s) Number: Corporate ID Number: ??[id number] ?Gender ? Female Radio Commentator: ?Amina Fiore RDCS ?Height: ?70 inches Referring Physician: ??TREY VALDES ?Weight: ?216 pounds Interpreting ?REJI CARRANZA MD ?BMI: ? 30.99 kg/m^2 Physician: Date of Service: ?07/17/2024 ?Blood ?132/67 mmHg ? Pressure: Room Number: ?2393 Type of Study: TTE procedure: ECHO COMPLETE (DOPPLER / COLOR) W OR WO CONTRAST. Patient Status: Routine IP Study Location: PortableTechnical Quality: Adequate visualization History/Tech Notes: Indication: altered mental status R40.4 Impression: ###################################### Mild left ventricular hypertrophy. Normal left ventricular systolic function with visually estimated ejection fraction 60% +/- 5%. Grade 1 diastolic dysfunction. Mild left atrial enlargement. Mild-moderate mitral regurgitation. ###################################### Measurements Summary: LVEDd: 5.31 cm ? LVESd: 3.55 cm ?IVSEd: 0.75 cm AO Root:3.24 cm ?LVPWd: 1.22 cm Contractility Score Normal Left Ventricular contractility was noted. LV regional wall motion: (0-Not visualized 1-Normal 2-Hypokinesis 3-Akinesis 4-Dyskinesis 5-Aneurysm) Left Ventricle Peak E-wave: 1.09 ?? Peak A-wave: 1.07 m/s ?? E/A ratio: 1.01 m/s ? Volume [id number] ??LV length: 8.57 cm ml Volume alcozosl45.64 ml LVOT diameter: 2.02 cm Mild left ventricular hypertrophy. Visually estimated ejection fraction 60% +/- 5%. Normal left ventricular systolic function with normal systolic strain pattern. Grade 1 diastolic dysfunction. No left ventricular masses or thrombi. Right Ventricle Diastolic dimension: 3.45 ? RV systolic pressure: 21.33 mmHg cm Normal sized right ventricle. Normal TAPSE c/w normal right ventricular function Left Atrium LA dimension: 3.8 cm ?LA volume:84.1 ml LA/Aorta: 1.17 Abnormal left atrial volume index 38.94 ml/m2. Intact atrial septum. No atrial mass or thrombus. Right Atrium RA area: 19.39 cm^2 Abnormal right atrial size. Intact atrial septum. No atrial mass or thrombus. Mitral Valve Deceleration time: ?MR velocity: 5.35 Mean gradient: 88.15 175.46 msec ? m/s ? mmHg MR VTI: 184.09 cm Thickened mitral valve leaflets. Mitral valve annulus calcification. Mild-moderate mitral regurgitation. Unable to obtain PISA ERO. No mitral stenosis. No masses or vegetations seen. Aortic Valve Peak velocity: 1.42 m/s LVOT VTI: 27.44 cm ?Peak gradient: 8.08 mmHg Thickend free edges of the aortic valve leaflets. No aortic regurgitation. No aortic stenosis. No masses or vegetations seen. Tricuspid Valve TR velocity: 1.83 m/s ?TR gradient: 13.3298 mmHg Estimated RAP: 8 mmHg ?RVSP: 21.33 mmHg Structurally normal tricuspid valve. Mild tricuspid regurgitation. No tricuspid stenosis. No masses or vegetations seen. Pulmonic Valve Acceleration time: 148.43 msec ?PASP: 21.33 mmHg Structurally normal pulmonic valve. Mild pulmonic regurgitation. No pulmonic stenosis. No masses or vegetations seen. Great Vessels Aorta Aortic Root: 3.24 cm LVOT Diameter: 2.02 cm Visualized aorta is normal. Normal aortic root. No evidence of dissection. Dilated IVC with partial collapse. Borderline elevated central venous pressure (8-12mmHg). Pericardium / Pleura No pericardial effusion. Procedure Note Reji Carranza MD - 07/17/2024 TRANSTHORACIC ECHOCARDIOGRAPHY REPORT Demographics Patient Name: FREDY STERLING : 1960 [place] Medical Record [id number] Age: 64 year(s) Number: Corporate ID Number: [id number] Gender Female Radio Commentator: Amina Fiore [facility] Height: 70 inches Referring Physician: TREY VALDES Weight: 216 pounds Interpreting REJI CARRANZA MD BMI: 30.99 kg/m^2 Physician: Date of Service: 07/17/2024 Blood 132/67 mmHg Pressure: Room Number: 3155 Type of Study: TTE procedure: ECHO COMPLETE (DOPPLER / COLOR) W OR WO CONTRAST. Patient Status: Routine IP Study Location: [facility] Quality: Adequate visualization History/Tech Notes: Indication: altered mental status R40.4 Impression: ###################################### Mild left ventricular hypertrophy. Normal left ventricular systolic function with visually estimatedejection fraction 60% +/- 5%. Grade 1 diastolic dysfunction. Mild left atrial enlargement. Mild-moderate mitral regurgitation. ###################################### Measurements Summary: LVEDd: 5.31 cm LVESd: 3.55 cm IVSEd: 0.75 cm AO Root:3.24 cm LVPWd: 1.22 cm Contractility Score Normal Left Ventricular contractility was noted. LV regional wall motion: (0-Not visualized 1-Normal 2-Hypokinesis 3-Akinesis 4-Dyskinesis 5-Aneurysm) Left Ventricle Peak E-wave: 1.09 Peak A-wave: 1.07 m/s E/A ratio: 1.01 m/s Volume [id number] LV length: 8.57 cm ml Volume xoctdymd89.64 ml LVOT diameter: 2.02 cm Mild left ventricular hypertrophy. Visually estimated ejection fraction 60% +/- 5%. Normal left ventricular systolic function with normal systolic strain pattern. Grade 1 diastolic dysfunction. No left ventricular masses or thrombi. Right Ventricle Diastolic dimension: 3.45 RV systolic pressure: 21.33 mmHg cm Normal sized right ventricle. Normal TAPSE c/w normal right ventricular function Left Atrium LA dimension: 3.8 cm LA volume:84.1 ml LA/Aorta: 1.17 Abnormal left atrial volume index 38.94 ml/m2. Intact atrial septum. No atrial mass or thrombus. Right Atrium RA area: 19.39 cm^2 Abnormal right atrial size. Intact atrial septum. No atrial mass or thrombus. Mitral Valve Deceleration time: MR velocity: 5.35 Mean gradient: 88.15 175.46 msec m/s mmHg MR VTI: 184.09 cm Thickened mitral valve leaflets. Mitral valve annulus calcification. Mild-moderate mitral regurgitation. Unable to obtain PISA ERO. No mitral stenosis. No masses or vegetations seen. Aortic Valve Peak velocity: 1.42 m/s LVOT VTI: 27.44 cm Peak gradient: 8.08 mmHg Thickend free edges of the aortic valve leaflets. No aortic regurgitation. No aortic stenosis. No masses or vegetations seen. Tricuspid Valve TR velocity: 1.83 m/s TR gradient: 13.3298 mmHg Estimated RAP: 8 mmHg RVSP: 21.33 mmHg Structurally normal tricuspid valve. Mild tricuspid regurgitation. No tricuspid stenosis. No masses or vegetations seen. Pulmonic Valve Acceleration time: 148.43 msec PASP: 21.33 mmHg Structurally normal pulmonic valve. Mild pulmonic regurgitation. No pulmonic stenosis. No masses or vegetations seen. Great Vessels Aorta Aortic Root: 3.24 cm LVOT Diameter: 2.02 cm Visualized aorta is normal. Normal aortic root. No evidence of dissection. Dilated IVC with partial collapse. Borderline elevated central venous pressure (8-12mmHg). Pericardium / Pleura No pericardial effusion. Chandra Jose MD CV ECHO ORDERABLES Final Result * (ABNORMAL) CBC Scan (07/17/2024 8:06 AM EDT) Platelet Estimate Decreased (A) Adequate 07/17/2024 9:01 AM EDT [facility] RBC Morphology abnormal( A) Normal 07/17/2024 9:01 AM EDT [facility] Anisocytosis 1+ 07/17/2024 9:01 AM EDT [facility] Polychromasia 1+ 07/17/2024 9:01 AM EDT [facility] Poikilocytes 1+ 07/17/2024 9:01 AM EDT [facility] Blood Venipuncture / Unknown 07/17/2024 8:06 AM EDT 07/17/2024 8:10 AM EDT us Jm Kimball MD LAB BLOOD ORDERABLES Final Res ult [facility] [address] [phone] * (ABNORMAL) CBC with automated diff (07/17/2024 8:06 AM EDT) Only the most recent of7 resultswithin the time period is included. WBC 5.2 4.0 - 10.0 K/??L 07/17/2024 8:22 AM EDT [facility] RBC 2.78(L) 3.93 - 5.22 M/??L 07/17/2024 8:22 AM EDT [facility] Hemoglobin 8.7(L) 11.2 - 15.7 GM/DL 07/17/2024 8:22 AM EDT [facility] Hematocrit 27.6(L) 34.1 - 44.9 % 07/17/2024 8:22 AM EDT [facility] MCV 99(H) 79 - 95 fL 07/17/2024 8:22 AM EDT [facility] MCH 31.3 25.6 - 32.2 pg 07/17/2024 8:22 AM EDT [facility] MCHC 31.5(L) 32.2 - 35.5 GM/DL 07/17/2024 8:22 AM EDT [facility] RDW 18.5(H) 11.7 - 14.4 % 07/17/2024 8:22 AM EDT [facility] Platelets 37(LL) 140 - 375 K/CU MM 07/17/2024 8:22 AM EDT [facility] MPV 12.8(H) 9.4 - 12.3 fL 07/17/2024 8:22 AM EDT [facility] Nucleated Red Blood Cell 3.1(H) 0 - 0.2 % 07/17/2024 8:22 AM EDT [facility] % Neutros 79(H) 34 - 71 % 07/17/2024 8:22 AM EDT [facility] % Lymphs 8(L) 19 - 52 % 07/17/2024 8:22 AM EDT [facility] % Monos 5 5 - 13 % 07/17/2024 8:22 AM EDT [facility] % Eos 0(L) 1 - 6 % 07/17/2024 8:22 AM EDT [facility] % Baso 0 0 - 1 % 07/17/2024 8:22 AM EDT [facility] NRBC Absolute 0.16(H) 0 - 0.012 K/ul 07/17/2024 8:22 AM EDT [facility] # Neutros 4.09 1.56 - 6.13 K/??L 07/17/2024 8:22 AM EDT [facility] # Lymphs 0.42(L) 1.18 - 3.74 K/??L 07/17/2024 8:22 AM EDT [facility] # Monos 0.24 0.24 - 0.86 K/??L 07/17/2024 8:22 AM EDT [facility] # Eos <0.03(L) 0.04 - 0.36 K/??L 07/17/2024 8:22 AM EDT [facility] # Baso <0.03 0.01 - 0.08 K/??L 07/17/2024 8:22 AM EDT [facility] Immature Granulocytes-Re lative 7.60(H) 0.01 - 0.43 % 07/17/2024 8:22 AM EDT [facility] # IG 0.39(H) 0.00 - 0.03 K/uL 07/17/2024 8:22 AM EDT [facility] Blood Venipuncture / Unknown 07/17/2024 8:06 AM EDT 07/17/2024 8:10 AM EDT Narrative [facility] - 07/17/2024 8:22 AM EDT When CBC w/ Auto Diff is ordered the lab will add a Manual Differential as a quality check at no additional charge if: Lymphocytes greater than seventy five percent with normal or increased WBC Monocytes greater than Fifteen percent Basophil greater than four percent Bands >10% or several immature myeloids are seen on scan Blast? Flag noted Atypical Lymph flag noted us Jm Kimball MD LAB BLOOD ORDERABLES Final Res ult [facility] [address] [phone] * (ABNORMAL) Comprehensive metabolic panel (07/17/2024 8:06 AM EDT) Only the most recent of4 resultswithin the time period is included. Sodium 149(H) 136 - 146 meq/L 07/17/2024 8:38 AM EDT [facility] Potassium 3.1(L) 3.5 - 5.1 meq/L 07/17/2024 8:38 AM EDT [facility] Chloride 118(H) 102 - 112 meq/L 07/17/2024 8:38 AM EDT [facility] CO2 20(L) 21 - 32 meq/L 07/17/2024 8:38 AM EDT [facility] Calcium 7.8(L) 8.4 - 10.1 mg/dL 07/17/2024 8:38 AM EDT [facility] Glucose 135(H) 74 - 106 mg/dL 07/17/2024 8:38 AM EDT [facility] BUN 19 7 - 22 mg/dL 07/17/2024 8:38 AM EDT [facility] Creatinine 0.61 0.55 - 1.02 mg/dL 07/17/2024 8:38 AM EDT [facility] BUN/Creatinine 31(H) 8 - 20 07/17/2024 8:38 AM EDT [facility] Albumin 1.1(L) 3.4 - 5.0 g/dL 07/17/2024 8:38 AM EDT [facility] Alkaline Phosphatase 45 27 - 136 U/L 07/17/2024 8:38 AM EDT [facility] ALT 11(L) 13 - 56 U/L 07/17/2024 8:38 AM EDT [facility] AST 38(H) 5 - 37 U/L 07/17/2024 8:38 AM EDT [facility] Total Bilirubin 0.5 0.2 - 1.2 mg/dL 07/17/2024 8:38 AM EDT [facility] Protein, Total 8.6(H) 6.4 - 8.2 gm/dL 07/17/2024 8:38 AM EDT [facility] Anion Gap 14 9 - 20 07/17/2024 8:38 AM EDT [facility] A/G Ratio 0.1(L) 1.1 - 2.5 07/17/2024 8:38 AM EDT [facility] Globulin 7.5(H) 1.5 - 4.5 g/dL 07/17/2024 8:38 AM EDT [facility] Osmolality Calc 300.4 8:38 AM EDT [facility] eGFR (mL/min/1.73m2) >60 >=60 mL/min/1.7 3m2 07/17/2024 8:38 AM EDT [facility] Comment:ESTIMATED GFR IS NOT ACCURATE CREATININE CLEARANCE IN PREDICTING GLOMERULAR FILTRATION RATE. ESTIMATED GFR IS NOT APPLICABLE FOR DIALYSIS PATIENTS. Blood Venipuncture / Unknown 07/17/2024 8:06 AM EDT 07/17/2024 8:10 AM EDT us Jm Kimball MD LAB BLOOD ORDERABLES Final Res ult [facility] [address] [phone] * ECG 12 lead (07/16/2024 6:04 PM EDT) Only the most recent of4 resultswithin the time period is included. VENTRICULAR RATE EKG/MIN 117 BPM GE MUSE ATRIAL RATE (MCT) 117 BPM GE MUSE ME Interval 168 ms GE MUSE QRS-INTERVAL (MSEC) 78 ms GE MUSE QT Interval 414 ms GE MUSE QTC Interval 577 ms GE MUSE P [place] 78 degrees GE MUSE R AXIS (MCT) 39 degrees GE MUSE T Wave [place] 27 degrees GE MUSE [place] Diagnosis Atrial fibrillation with rapid ventricular response Prolonged QT Abnormal ECG When compared with ECG of 16-JUL-2024 14:52, No significant change was found Confirmed by Reji Carranza ([id number]), loan expeditor DESTINY JOHN ([id number]) on 07/17/2024 6:23:03 PM GE MUSE 07/16/2024 6:04 PM EDT 07/17/2024 6:23 PM EDT Chandra Jose MD ECG ORDERABLES Final Result Performing Organization Address City/[facility]/ZIP Co de Phone Number GE MUSE * Magnesium (07/16/2024 6:54 AM EDT) Only the most recent of5 resultswithin the time period is included. Pathologist [facility] Magnesium 2.2 1.5 - 2.4 mg/dL 07/16/2024 3:37 PM EDT [facility] Blood Venipuncture / Unknown 07/16/2024 6:54 AM EDT 07/16/2024 7:57 AM EDT Chandra Jose MD LAB BLOOD ORDERABLES Final Resul t [facility] [address] [phone] * XR chest AP portable (07/16/2024 3:32 AM EDT) Only the most recent of2 resultswithin the time period is included. Anatomical Region Laterality Modality Chest X-Ray 07/16/2024 8:32 AM EDT Impressions 07/16/2024 4:32 PM EDT Stable exam. Images reviewed, interpreted, and dictated by Dr. Zac Ordoñez. Transcribed by Stacy Marte PA-C. Narrative 07/16/2024 4:32 PM EDT PORTABLE CHEST; ?? HISTORY: Precordial chest pain. COMPARISON: July 12, 2024. FINDINGS: The heart is stable in size. There are low lung volumes with perihilar vascular enlargement and crowding. There is no pneumothorax. ?? Procedure Note Zac Ordoñez MD - 07/16/2024 PORTABLE CHEST; HISTORY: Precordial chest pain. COMPARISON: July 12, 2024. FINDINGS: The heart is stable in size. There are low lung volumes with perihilar vascular enlargement and crowding. There is no pneumothorax. IMPRESSION: Stable exam. Images reviewed, interpreted, and dictated by Dr. Zac Ordoñez. Transcribed by Stacy Marte PA-C. Nelly Gallardo MD IMG DIAGNOSTIC IMAGING ORDERABLE S Final Result * (ABNORMAL) Hepatic function panel (07/15/2024 2:39 PM EDT) Only the most recent of2 resultswithin the time period is included. Protein, Total 9.1(H) 6.4 - 8.2 gm/dL 07/15/2024 6:42 PM EDT [facility] Albumin 1.1(L) 3.4 - 5.0 g/dL 07/15/2024 6:42 PM EDT [facility] Total Bilirubin 0.9 0.2 - 1.2 mg/dL 07/15/2024 6:42 PM EDT [facility] Bilirubin, Direct 0.6(H) 0.0 - 0.2 mg/dL 07/15/2024 6:42 PM EDT [facility] Alkaline Phosphatase 53 27 - 136 U/L 07/15/2024 6:42 PM EDT [facility] Globulin 8(H) 1.5 - 4.5 g/dL 07/15/2024 6:42 PM EDT [facility] A/G Ratio 0.1(L) 1.1 - 2.5 07/15/2024 6:42 PM EDT [facility] AST 26 5 - 37 U/L 07/15/2024 6:42 PM EDT [facility] Comment:[employer] has become aware of sulfasalazine and sulfapyridine drug interference in the assays ALT, AST, T4, CKMB, glucose, and ammonia. The probability of misinterpretation of results for the assays is remote and would be limited to scenarios where a patient has taken the drug and had a blood sample drawn before clearance of the drug to a level that does not interfere with laboratory testing. Venipuncture should occur prior to administration of the drug. ALT 7(L) 13 - 56 U/L 07/15/2024 6:42 PM EDT [facility] Comment:[employer] has become aware of sulfasalazine and sulfapyridine drug interference in the assays ALT, AST, T4, CKMB, glucose, and ammonia. The probability of misinterpretation of results for the assays is remote and would be limited to scenarios where a patient has taken the drug and had a blood sample drawn before clearance of the drug to a level that does not interfere with laboratory testing. Venipuncture should occur prior to administration of the drug. Blood Venipuncture / Unknown 07/15/2024 2:39 PM EDT 07/15/2024 2:55 PM EDT Gerson Aguirre MD LAB BLOOD ORDERABLES Final Re sult [facility] [address] [phone] * XR KUB PORTABLE (07/15/2024 12:00 PM EDT) Anatomical Region Laterality Modality Abdomen X-Ray 07/15/2024 12:5 4 PM EDT Impressions 07/15/2024 7:46 PM EDT Feeding tube tip in the stomach. Images reviewed, interpreted, and dictated by Dr. Zac Ordoñez. Transcribed by Stacy Marte PA-C. Narrative 07/15/2024 7:46 PM EDT SINGLE VIEW ABDOMEN HISTORY: Corpak placement. ABDOMEN: Single view of the abdomen demonstrates a nonobstructive bowel gas pattern. No abnormal calcifications are identified. There is a feeding tube with the tip in the stomach. Procedure Note Zac Ordoñez MD - 07/15/2024 SINGLE VIEW ABDOMEN HISTORY: Corpak placement. ABDOMEN: Single view of the abdomen demonstrates a nonobstructive bowel gas pattern. No abnormal calcifications are identified. There is a feeding tube with the tip in the stomach. IMPRESSION: Feeding tube tip in the stomach. Images reviewed, interpreted, and dictated by Dr. Zac Ordoñez. Transcribed by Stacy Marte PA-C. Adelaida Chowdhury PA-C IMG DIAGNOSTIC IMAGING ORD ERABLES Final Result * (ABNORMAL) Phosphorus (07/15/2024 6:13 AM EDT) Only the most recent of2 resultswithin the time period is included. Phosphorus 1.5(L) 2.5 - 4.9 mg/dL 07/15/2024 1:22 PM EDT [facility] Blood Venipuncture / Unknown 07/15/2024 6:13 AM EDT 07/15/2024 6:28 AM EDT Chandra Jose MD LAB BLOOD ORDERABLES Final Resul t [facility] [address] [phone] * Ultrasound liver (07/14/2024 4:35 PM EDT) Anatomical Region Laterality Modality Abdomen Ultrasound 07/14/2024 8:49 PM EDT Impressions 07/14/2024 8:56 PM EDT Normal-appearing portal vein. Apparent extrahepatic biliary ductal dilation, of uncertain etiology or significance, as discussed above. Images reviewed, interpreted and dictated by Dr. Bacilio Patel MD Narrative 07/14/2024 8:56 PM EDT ULTRASOUND OF THE LIVER HISTORY: Elevated ammonia. Assess patency and flow of portal vein PROCEDURE: Grayscale, color Doppler and pulsed Doppler evaluation. COMPARISON: CT of the chest abdomen and pelvis of 07/12/2024 FINDINGS: The gallbladder contains some dependent sludge, but is otherwise a subtle small echogenic area in the anterior liver likely corresponds to the focal area of fatty change adjacent to the fissure of ligamentum teres, as also seen on the prior CT. This is of no clinical significance. No focal liver lesion is identified otherwise. Common bile duct measures 9.6 mm, which is abnormally dilated, but no such biliary ductal dilation was seen on the recent CT. If (and only if) there is clinical evidence of jaundice, MRCP is recommended for further evaluation. The portal vein is a normal 11 mm in diameter, patent and flowing toward the liver. Hepatic artery is patent. Procedure Note Bacilio Patel MD - 07/14/2024 ULTRASOUND OF THE LIVER HISTORY: Elevated ammonia. Assess patency and flow of portal vein PROCEDURE: Grayscale, color Doppler and pulsed Doppler evaluation. COMPARISON: CT of the chest abdomen and pelvis of 07/12/2024 FINDINGS: The gallbladder contains some dependent sludge, but is otherwise a subtle small echogenic area in the anterior liver likely corresponds to the focal area of fatty change adjacent to the fissure of ligamentum teres, as also seen on the prior CT. This is of no clinical significance. No focal liver lesion is identified otherwise. Common bile duct measures 9.6 mm, which is abnormally dilated, but no such biliary ductal dilation was seen on the recent CT. If (and only if) there is clinical evidence of jaundice, MRCP is recommended for further evaluation. The portal vein is a normal 11 mm in diameter, patent and flowing toward the liver. Hepatic artery is patent. IMPRESSION: Normal-appearing portal vein. Apparent extrahepatic biliary ductal dilation, of uncertain etiology or significance, as discussed above. Images reviewed, interpreted and dictated by Dr. Bacilio Patel MD us Susie Petersen APRN [facility] [place] US ORDERABLES Final Res ult * (ABNORMAL) Blood gas, arterial (07/14/2024 8:15 AM EDT) pH, Arterial 7.50(H) 7.35 - 7.45 07/14/2024 8:18 AM EDT [facility] pCO2, Arterial 27(L) 35 - 45 mm Hg 07/14/2024 8:18 AM EDT [facility] pO2, Arterial 82 80 - 100 mm Hg 07/14/2024 8:18 AM EDT [facility] HCO3, Arterial 21 20 - 26 mmol/L 07/14/2024 8:18 AM EDT [facility] Base Excess, Arterial -2.1(L) -2.0 - 2.0 mmol/L 07/14/2024 8:18 AM EDT [facility] O2 Sat, Arterial 97.5 95.0 - 100.0 % 07/14/2024 8:18 AM EDT [facility] CTO2 ARTERIAL 10.4 mmol/L 07/14/2024 8:18 AM EDT [facility] THB ARTERIAL 7.7(L) 12.0 - 18.0 g/dL 07/14/2024 8:18 AM EDT [facility] PaO2/FIO2 calculated 389.0 07/14/2024 8:18 AM EDT [facility] COLLECTION SITE Left Radial 07/14/2024 8:18 AM EDT [facility] Arterial Puncture Yes 07/14/2024 8:18 AM EDT [facility] Blood Gas PT Temperature C 37.0 07/14/2024 8:18 AM EDT [facility] Rafael's Test Acceptable 07/14/2024 8:18 AM EDT [facility] ABG Number of Draw Attempts 1 07/14/2024 8:18 AM EDT [facility] FIO2 21.0 07/14/2024 8:18 AM EDT [facility] Blood Gas Temperature Corrected Results No No 07/14/2024 8:18 AM EDT [facility] Blood, Arterial 07/14/2024 8 :15 AM EDT 07/14/2024 8:18 AM EDT us Chandra Jose MD LAB BLOOD ORDERABLES Final Resul t [facility] [address] [phone] * (ABNORMAL) Haptoglobin(SENDOUT) (07/13/2024 7:43 PM EDT) Haptoglobin 213(H) 30 - 200 mg/dL 07/15/2024 11:11 PM EDT [employer] Comment: Performed By: [facility] [address] [place] [address] [employer]: Parker Rangel MD, PhD CLIA Number: [id number] Blood Venipuncture / Unknown 07/13/2024 7:43 PM EDT 07/13/2024 7:47 PM EDT us Lico Rogers MD LAB BLOOD ORDERABLES Final Res ult Performing Organization Address City/[facility]/ZIP Co de Phone Number [employer] [address] [place] [address], [facility] [phone] * (ABNORMAL) Hemoglobin and hematocrit (07/13/2024 7:43 PM EDT) Only the most recent of2 resultswithin the time period is included. Hemoglobin 7.6(L) 11.2 - 15.7 GM/DL 07/13/2024 7:53 PM EDT [facility] Hematocrit 23.5(L) 34.1 - 44.9 % 07/13/2024 7:53 PM EDT [facility] Blood Venipuncture / Unknown 07/13/2024 7:43 PM EDT 07/13/2024 7:47 PM EDT us Chandra Jose MD LAB BLOOD ORDERABLES Final Resul t [facility] [address] [place] [address], [facility] [phone] * Transfuse RBC (07/13/2024 3:47 PM EDT) Only the most recent of4 resultswithin the time period is included. us Rupert Betancourt MD [id number] TRANSFUSION ORDERABLES Final Result * Prepare RBC: 2 Units (07/13/2024 6:53 AM EDT) Only the most recent of2 resultswithin the time period is included. Issue Date/Time [id number] [facility] [place] Product Identification Red Blood Cells [facility] [place] Product Code [id number] [facility] [place] Status Information Transfused [facility] [place] Unit Number [id number] [facility]LO[facility] [place]) Blood Type 6200 [facility] [place] Cross Match Results Compatible [facility] [place] us Rupert Betancourt MD [email or web address] BANK PRODUCT ORDERABLES Final Result Performing Organization Address [facility]/ZIP Co de Phone Number [facility] ([place] [address] [place] [address], [facility] [phone] * (ABNORMAL) CALCIUM Ionized (07/13/2024 6:37 AM EDT) Pathologist [facility] Calcium Ionized 1.07(L) 1.12 - 1.32 mmol/L 07/13/2024 6:57 AM EDT [facility] Blood Venipuncture / Unknown 07/13/2024 6:37 AM EDT 07/13/2024 6:50 AM EDT us Rupert Betancourt MD LAB BLOOD ORDERABLES Final Res ult [facility] [address] [place] [address], [facility] [phone] * (ABNORMAL) Iron and TIBC (07/13/2024 6:08 AM EDT) Iron 74.0 50.0 - 170.0 ug/dL 07/13/2024 2:38 PM EDT [facility] TIBC 163(L) 250 - 450 ug/dL 07/13/2024 2:38 PM EDT [facility] % Saturation 45 15 - 55 % 07/13/2024 2:38 PM EDT [facility] UIBC 89 07/13/2024 2:38 PM EDT [facility] Blood Venipuncture / Unknown 07/13/2024 6:08 AM EDT 07/13/2024 6:16 AM EDT us Lico Rogers MD LAB BLOOD ORDERABLES Final Res ult [facility] [address] [phone] * Lactate dehydrogenase (LDH) (07/13/2024 6:08 AM EDT) LDH 231 84 - 246 U/L 07/13/2024 2:38 PM EDT [facility] Blood Venipuncture / Unknown 07/13/2024 6:08 AM EDT 07/13/2024 6:16 AM EDT us Lico Rogers MD LAB BLOOD ORDERABLES Final Res ult Performing Organization Address City/[facility]/ZIP Co de Phone Number [facility] [address] [phone] * Folate, Serum (07/13/2024 6:08 AM EDT) Folate 5.10 3.10 - 17.50 ng/mL 07/13/2024 7:05 AM EDT [facility] Blood Venipuncture / Unknown 07/13/2024 6:08 AM EDT 07/13/2024 6:16 AM EDT us Rupert Betancorut MD LAB BLOOD ORDERABLES Final Res ult [facility] [address] [phone] * (ABNORMAL) Ferritin (07/13/2024 6:08 AM EDT) Ferritin 1,036.20(H ) 8.00 - 252.00 ng/mL 07/13/2024 2:38 PM EDT [facility] Blood Venipuncture / Unknown 07/13/2024 6:08 AM EDT 07/13/2024 6:16 AM EDT us Lico Rogers MD LAB BLOOD ORDERABLES Final Res ult [facility] [address] [phone] * (ABNORMAL) Urine Drug Screen (07/13/2024 5:41 AM EDT) [facility] Amphetamine Urine Negative Negative 024 6:24 AM EDT [facility] Barbiturate Screen Negative Negative 2023 6:24 AM EDT [facility] Benzodiazepine Screen Negative Negative 6:24 AM EDT [facility] Cocaine (Metab.) Screen Negative Negative 07/13/2024 6:24 AM EDT [facility] Opiate Screen Positive(A ) Negative 07/13/2024 6:24 AM EDT [facility] Phencyclidine Screen Negative Negative 06/21 6:24 AM EDT [facility] Tricyclic Screen Negative Negative 07/13/20 6:24 AM EDT [facility] LABORATORY Tetrahydrocannabinol Positive(A ) Negative 07/13/2024 6:24 AM EDT [facility] Creatinine, Ur 219.0 mg/dL 07/13/2024 6:24 AM EDT [facility] pH, UA 5.0(L) 6.0 - 8.0 07/13/2024 6:24 AM EDT [facility] Urine 07/13/2024 5:41 AM EDT 07/13/2024 5:52 AM EDT Narrative [facility] - 07/13/2024 6:24 AM EDT Clinical consideration and professional judgement should be applied to any [id number] test result, particularly when preliminary positive results are used. Positive results should be confirmed if used for clinical or legal purposes. Cutoff Values: UDS Amphetamines & UDS TCA = 1000 ng/mL UDS Barbiturates & UDS Benzodiazepines = 200 ng/mL UDS Cocaine & UDS Opiates = 300 ng/mL UDS PCP = 25 ng/mL UDS THC = 50 ng/mL us Rupert Betancourt MD URINE ORDERABLES Final Result [facility] [address] [phone] * (ABNORMAL) Urinalysis, Reflex Microscopic and Culture If Indicated - Cath (07/12/2024 7:47 PM EDT) Only the most recent of2 resultswithin the time period is included. Color, UA Yellow 07/12/2024 8:16 PM EDT [facility] Clarity, UA Turbid(A) Clear 07/12/2024 8:16 PM EDT [facility] Specific Archie, UA 1.042(H) 1.005 - 1.030 07/12/2024 8:16 PM EDT [facility] pH, UA 5.5(L) 6.0 - 8.0 07/12/2024 8:16 PM EDT [facility] Leukocytes, UA Negative Negative 07/12/2024 8:16 PM EDT [facility] Nitrite, UA Negative Negative 07/12/2024 8:16 PM EDT [facility] Protein, UA 1+(A) Negative 07/12/2024 8:16 PM EDT [facility] Glucose, UA Normal Normal 07/12/2024 8:16 PM EDT [facility] Ketones, UA Trace(A) Negative 07/12/2024 8:16 PM EDT [facility] Bilirubin, UA Negative Negative 07/12/2024 8:16 PM EDT [facility] Blood, UA 1+(A) Negative 07/12/2024 8:16 PM EDT [facility] Urobilinogen, UA 3 mg/dL(A) Normal 07/12/2024 8:16 PM EDT [facility] Specimen Source Urine, Monet 07/12/2024 8:16 PM EDT [facility] Urine URINE SPECIMEN COLLECTION, CATHETERIZED / Unknown 07/12/2024 7:47 PM EDT 07/12/2024 8:07 PM EDT Sally Ribera DRIER UNLOADER URINE ORDERABLES Final Result Performing Organization Address City/[facility]/ZIP Co de Phone Number [facility] [address] [phone] * (ABNORMAL) Urinalysis Microscopic Only (07/12/2024 7:47 PM EDT) Only the most recent of2 resultswithin the time period is included. WBC, UA 3-5(A) None Seen /HPF 07/12/2024 8:22 PM EDT [facility] RBC, UA 0-2(A) None Seen /HPF 07/12/2024 8:22 PM EDT [facility] Bacteria, UA 1+(A) None Seen, Trace 07/12/2024 8:22 PM EDT [facility] Mucus 1+(A) None Seen 07/12/2024 8:22 PM EDT [facility] SQUAMOUS EPITHELIAL 0-2(A) None Seen /HPF 07/12/2024 8:22 PM EDT [facility] Urine URINE SPECIMEN COLLECTION, CATHETERIZED / Unknown 07/12/2024 7:47 PM EDT 07/12/2024 8:07 PM EDT us Sally Ribera DRIER UNLOADER URINE ORDERABLES Final Result [facility] [address] [place] [address], [facility] [phone] * ABO/Rh (07/12/2024 5:22 PM EDT) ABO/Rh A POSITIVE 07/12/2024 6:38 PM EDT [facility] [place] Blood Venipuncture / Unknown 07/12/2024 5:22 PM EDT 07/12/2024 5:27 PM EDT Sally Ribera APRN [facility] TEST ORDERABLES Final Result Performing Organization Address [facility]/ZIP Co de Phone Number [facility] ([place] [address] [place] [address], [facility] [phone] * Direct Jin/BAUDILIO (07/12/2024 5:22 PM EDT) BAUDILIO, Polyspecific Negative 2:14 PM EDT [facility] [place] Blood Venipuncture / Unknown 07/12/2024 5:22 PM EDT 07/13/2024 2:17 PM EDT Lico Rogers MD [facility] TEST ORDERABLES Final Result Performing Organization Address [facility]/ZIP Co de Phone Number [facility] [place] [address] [place] [address], [facility] [phone] * Antibody Screen (07/12/2024 5:22 PM EDT) Antibody Screen Negative 07/12/2024 6:39 PM EDT [facility] [place] Blood Venipuncture / Unknown 07/12/2024 5:22 PM EDT 07/12/2024 5:27 PM EDT Sally Ribera DRIER UNLOADER [facility] TEST ORDERABLES Final Result Performing Organization Address [facility]/ZIP Co de Phone Number [facility] [place] [address] [place] [id number], [facility] [phone] * CT brain without IV contrast (07/12/2024 5:07 PM EDT) Anatomical Region Laterality Modality Brain, Head Computed Tomogra phy (CT) 07/12/2024 5:40 PM EDT Impressions 07/12/2024 8:33 PM EDT No acute intracranial process. Innumerable lytic lesions throughout the calvarium, consistent with patient's known history of multiple myeloma. CT SCAN OF THE CHEST, ABDOMEN AND PELVIS WITH CONTRAST ?07/12/2024 5:06 PM HISTORY: Epigastric pain. COMPARISON: None. PROCEDURE: The patient was injected with IV contrast. Oral contrast was administered. Axial images were obtained from the lung apex to the pubic symphysis by computed tomography. This study was performed with techniques to keep radiation doses as low as reasonably achievable, (ALARA). Individualized dose reduction techniques using automated exposure control or adjustment of mA and/or kV according to the patient size were employed. FINDINGS: CHEST: There is no axillary adenopathy. There is no hilar or mediastinal adenopathy. ??The heart size is normal. There is no pericardial or pleural effusion. No suspicious infiltrate or nodule identified. There is evidence of old granulomatous disease exposure. ABDOMEN: The liver is homogenous with no focal abnormality. The spleen is unremarkable. Stable left adrenal nodule. The pancreas is unremarkable. The kidneys are unremarkable, without evidence of mass or hydronephrosis. The aorta is normal in caliber. There is no free fluid or adenopathy. Postsurgical changes to the stomach are noted. PELVIS: The GI tract demonstrates no obstruction. The appendix is normal. The urinary bladder is unremarkable. ??There is no free fluid, adenopathy, or inflammatory process. Genital organs are unremarkable. No findings to suggest ovarian torsion. BONES: No acute fractures. IMPRESSION: 1. ??No acute abnormality identified in the chest/abdomen/pelvis. 2. ??Stable left adrenal nodule. 3. ??No definite evidence to suggest cholelithiasis on today's study. 4. ??No significant interval change in innumerable lytic lesions throughout the bones consistent with patient's known history of multiple myeloma. Images reviewed, interpreted, and dictated by Trino Nguyen M.D. Narrative 07/12/2024 8:[address] ? 07/12/2024 5:06 PM HISTORY: Acute mental status change. COMPARISON: None. TECHNIQUE: Multiple axial CT images were performed from the foramen magnum to the vertex. Individualized dose reduction techniques using automated exposure control or adjustment of mA and/or kV according to the patient size were employed. FINDINGS: The brain parenchyma is unremarkable. ??The ventricles are proper size. There is no evidence of hemorrhage. No masses are identified. No abnormal extra-axial fluid is seen. The paranasal sinuses and mastoid air cells are unremarkable. Skull is intact. No skull fractures are evident. Innumerable lytic lesions scattered throughout the calvarium consistent with patient's known diagnosis of multiple myeloma. No pathologic fracture is evident. Procedure Note Forrest Nguyen MD - 07/12/[address] 07/12/2024 5:06 PM HISTORY: Acute mental status change. COMPARISON: None. TECHNIQUE: Multiple axial CT images were performed from the foramen magnum to the vertex. Individualized dose reduction techniques using automated exposure control or adjustment of mA and/or kV according to the patient size were employed. FINDINGS: The brain parenchyma is unremarkable. The ventricles are proper size. There is no evidence of hemorrhage. No masses are identified. No abnormal extra-axial fluid is seen. The paranasal sinuses and mastoid air cells are unremarkable. Skull is intact. No skull fractures are evident. Innumerable lytic lesions scattered throughout the calvarium consistent with patient's known diagnosis of multiple myeloma. No pathologic fracture is evident. IMPRESSION: No acute intracranial process. Innumerable lytic lesions throughout the calvarium, consistent with patient's known history of multiple myeloma. CT SCAN OF THE CHEST, ABDOMEN AND PELVIS WITH CONTRAST 07/12/2024 5:06 PM HISTORY: Epigastric pain. COMPARISON: None. PROCEDURE: The patient was injected with IV contrast. Oral contrast was administered. Axial images were obtained from the lung apex to the pubic symphysis by computed tomography. This study was performed with techniques to keep radiation doses as low as reasonably achievable, (ALARA). Individualized dose reduction techniques using automated exposure control or adjustment of mA and/or kV according to the patient size were employed. FINDINGS: CHEST: There is no axillary adenopathy. There is no hilar or mediastinal adenopathy. The heart size is normal. There is no pericardial or pleural effusion. No suspicious infiltrate or nodule identified. There is evidence of old granulomatous disease exposure. ABDOMEN: The liver is homogenous with no focal abnormality. The spleen is unremarkable. Stable left adrenal nodule. The pancreas is unremarkable. The kidneys are unremarkable, without evidence of mass or hydronephrosis. The aorta is normal in caliber. There is no free fluid or adenopathy. Postsurgical changes to the stomach are noted. PELVIS: The GI tract demonstrates no obstruction. The appendix is normal. The urinary bladder is unremarkable. There is no free fluid, adenopathy, or inflammatory process. Genital organs are unremarkable. No findings to suggest ovarian torsion. BONES: No acute fractures. IMPRESSION: 1. No acute abnormality identified in the chest/abdomen/pelvis. 2. Stable left adrenal nodule. 3. No definite evidence to suggest cholelithiasis on today's study. 4. No significant interval change in innumerable lytic lesions throughout the bones consistent with patient's known history of multiple myeloma. Images reviewed, interpreted, and dictated by Trino Nguyen M.D. Sally Ribera SHAR[facility] [place] CT ORDERABLES Final Result * CT chest abdomen pelvis with contrast (07/12/2024 5:07 PM EDT) Anatomical Region Laterality Modality Abdomen, Chest, Pelvis, Hip Comp uted Tomography (CT) 07/12/2024 5:40 PM EDT Impressions 07/12/2024 8:33 PM EDT No acute intracranial process. Innumerable lytic lesions throughout the calvarium, consistent with patient's known history of multiple myeloma. CT SCAN OF THE CHEST, ABDOMEN AND PELVIS WITH CONTRAST ?07/12/2024 5:06 PM HISTORY: Epigastric pain. COMPARISON: None. PROCEDURE: The patient was injected with IV contrast. Oral contrast was administered. Axial images were obtained from the lung apex to the pubic symphysis by computed tomography. This study was performed with techniques to keep radiation doses as low as reasonably achievable, (ALARA). Individualized dose reduction techniques using automated exposure control or adjustment of mA and/or kV according to the patient size were employed. FINDINGS: CHEST: There is no axillary adenopathy. There is no hilar or mediastinal adenopathy. ??The heart size is normal. There is no pericardial or pleural effusion. No suspicious infiltrate or nodule identified. There is evidence of old granulomatous disease exposure. ABDOMEN: The liver is homogenous with no focal abnormality. The spleen is unremarkable. Stable left adrenal nodule. The pancreas is unremarkable. The kidneys are unremarkable, without evidence of mass or hydronephrosis. The aorta is normal in caliber. There is no free fluid or adenopathy. Postsurgical changes to the stomach are noted. PELVIS: The GI tract demonstrates no obstruction. The appendix is normal. The urinary bladder is unremarkable. ??There is no free fluid, adenopathy, or inflammatory process. Genital organs are unremarkable. No findings to suggest ovarian torsion. BONES: No acute fractures. IMPRESSION: 1. ??No acute abnormality identified in the chest/abdomen/pelvis. 2. ??Stable left adrenal nodule. 3. ??No definite evidence to suggest cholelithiasis on today's study. 4. ??No significant interval change in innumerable lytic lesions throughout the bones consistent with patient's known history of multiple myeloma. Images reviewed, interpreted, and dictated by Trino Nguyen M.D. Narrative 07/12/2024 8:[address] ? 07/12/2024 5:06 PM HISTORY: Acute mental status change. COMPARISON: None. TECHNIQUE: Multiple axial CT images were performed from the foramen magnum to the vertex. Individualized dose reduction techniques using automated exposure control or adjustment of mA and/or kV according to the patient size were employed. FINDINGS: The brain parenchyma is unremarkable. ??The ventricles are proper size. There is no evidence of hemorrhage. No masses are identified. No abnormal extra-axial fluid is seen. The paranasal sinuses and mastoid air cells are unremarkable. Skull is intact. No skull fractures are evident. Innumerable lytic lesions scattered throughout the calvarium consistent with patient's known diagnosis of multiple myeloma. No pathologic fracture is evident. Procedure Note Forrest Nguyen MD - 07/12/[address] 07/12/2024 5:06 PM HISTORY: Acute mental status change. COMPARISON: None. TECHNIQUE: Multiple axial CT images were performed from the foramen magnum to the vertex. Individualized dose reduction techniques using automated exposure control or adjustment of mA and/or kV according to the patient size were employed. FINDINGS: The brain parenchyma is unremarkable. The ventricles are proper size. There is no evidence of hemorrhage. No masses are identified. No abnormal extra-axial fluid is seen. The paranasal sinuses and mastoid air cells are unremarkable. Skull is intact. No skull fractures are evident. Innumerable lytic lesions scattered throughout the calvarium consistent with patient's known diagnosis of multiple myeloma. No pathologic fracture is evident. IMPRESSION: No acute intracranial process. Innumerable lytic lesions throughout the calvarium, consistent with patient's known history of multiple myeloma. CT SCAN OF THE CHEST, ABDOMEN AND PELVIS WITH CONTRAST 07/12/2024 5:06 PM HISTORY: Epigastric pain. COMPARISON: None. PROCEDURE: The patient was injected with IV contrast. Oral contrast was administered. Axial images were obtained from the lung apex to the pubic symphysis by computed tomography. This study was performed with techniques to keep radiation doses as low as reasonably achievable, (ALARA). Individualized dose reduction techniques using automated exposure control or adjustment of mA and/or kV according to the patient size were employed. FINDINGS: CHEST: There is no axillary adenopathy. There is no hilar or mediastinal adenopathy. The heart size is normal. There is no pericardial or pleural effusion. No suspicious infiltrate or nodule identified. There is evidence of old granulomatous disease exposure. ABDOMEN: The liver is homogenous with no focal abnormality. The spleen is unremarkable. Stable left adrenal nodule. The pancreas is unremarkable. The kidneys are unremarkable, without evidence of mass or hydronephrosis. The aorta is normal in caliber. There is no free fluid or adenopathy. Postsurgical changes to the stomach are noted. PELVIS: The GI tract demonstrates no obstruction. The appendix is normal. The urinary bladder is unremarkable. There is no free fluid, adenopathy, or inflammatory process. Genital organs are unremarkable. No findings to suggest ovarian torsion. BONES: No acute fractures. IMPRESSION: 1. No acute abnormality identified in the chest/abdomen/pelvis. 2. Stable left adrenal nodule. 3. No definite evidence to suggest cholelithiasis on today's study. 4. No significant interval change in innumerable lytic lesions throughout the bones consistent with patient's known history of multiple myeloma. Images reviewed, interpreted, and dictated by Trino Nguyen M.D. Sally Ribera APRN [facility] [place] CT ORDERABLES Final Result * SARS-COV2/RT-PCR (07/12/2024 4:47 PM EDT) Only the most recent of2 resultswithin the time period is included. SARS-COV2/RT-P CR Negative Negative DEVICE ID9 07/12/2024 5:33 PM EDT [facility] Nasopharyngeal NASOPHARYNGEAL SWAB / Unknown 07/12/2024 4:47 PM EDT 07/12/2024 4:48 PM EDT Narrative [facility] - 07/12/2024 5:33 PM EDT Testing was performed using RT-PCR methodology approved for use under FDA Emergency Use Authorization only. Negative results do not preclude infection with the SARS-CoV-2 virus and should not be used as the sole basis of a patient treatment or public health decisions. Negative results must be considered in the context of an individual's recent exposures, history, and presence of clinical signs/symptoms. Follow-up testing should be performed according to the current CDC recommendations. us Sally Ribera APRN MICROBIOLOGY - GENERAL ORDERAB LES Final Result Performing Organization Address [facility] Co de Phone Number [facility] [address] [phone] * Peripheral Smear Path Review (07/12/2024 4:46 PM EDT) Pathologist Review See scanned Pathology Report 07/18/2024 10:11 AM EDT [facility] Blood Venipuncture / Unknown 07/12/2024 4:46 PM EDT 07/12/2024 4:47 PM EDT us Sally Ribera APRN LAB BLOOD ORDERABLES Final Res ult Performing Organization Address [facility]/ZIP Co de Phone Number [facility] [address] [phone] * (ABNORMAL) Manual Differential (07/12/2024 4:46 PM EDT) Total Counted 100 07/12/2024 6:04 PM EDT [facility] % Neutros (manual) 64 50 - 65 % 07/12/2024 6:04 PM EDT [facility] % Lymphs (manual) 21(L) 24 - 44 % 07/12/2024 6:04 PM EDT [facility] % Monos (manual) 7(H) 4 - 5 % 07/12/20 6:04 PM EDT [facility] % Metamyelo (manual) 3(H) 0 - 1 % 07/12/2024 6:04 PM EDT [facility] % Myelo (manual) 5 % 07/12/20 6:04 PM EDT [facility] RBC Morphology abnormal( A) Normal 07/12/2024 6:04 PM EDT [facility] Platelet Estimate Decreased (A) Adequate 07/12/2024 6:04 PM EDT [facility] Anisocytosis 1+ 07/12/2024 6:04 PM EDT [facility] Macrocytes 1+ 07/12/2024 6:04 PM EDT [facility] Ovalocytes 1+ 07/12/2024 6:04 PM EDT [facility] Rouleaux 1+ 07/12/2024 6:04 PM EDT [facility] Raw nRBC Count 1(H) 0 - 0 07/12/2024 6:04 PM EDT [facility] ANC# 3.58 K/??L 07/12/2024 6:04 PM EDT [facility] Blood Venipuncture / Unknown 07/12/2024 4:46 PM EDT 07/12/2024 4:47 PM EDT us Sally Ribera DRIER UNLOADER LAB BLOOD ORDERABLES Final Res ult Performing Organization Address City/State/[facility] Co de Phone Number [facility] [address] [phone] * Lactic Acid with reflex (SJ) (07/12/2024 4:46 PM EDT) Only the most recent of2 resultswithin the time period is included. Lactic Acid Level (mmol/L) 1.7 0.4 - 2.0 mmol/L 07/12/2024 5:15 PM EDT [facility] Comment:If a Lactic Acid Lev el with Reflex if Indicated result is greater than 2.0, a Lactic Acid Level will be ordered to be collected 2 hours after the original collection time. Blood Venipuncture / Unknown 07/12/2024 4:46 PM EDT 07/12/2024 4:48 PM EDT Sally Ribera DRIER UNLOADER LAB BLOOD ORDERABLES Final Res ult Performing Organization Address [facility] Co de Phone Number [facility] [address] [phone] * Procalcitonin (07/12/2024 4:46 PM EDT) Procalcitonin 0.39 <=0.50 ng/mL 07/12/2024 8:30 PM EDT [facility] Comment: Sepsis comment <0.5 Antibiotics Discouraged >0.5 Antibiotics Encouraged *Assessing Sepsis Risk and Severity* >2.0 ng/mL High Risk for Progression to severe sepsis and/or septic shock 0.5-2.0 ng/mL Sepsis should be considered <0.5 ng/mL Low Risk for Progression to Severe and/or septic shock Lower Respiratory Tract Infection (LRT) <0.25 Antibiotics Discouraged >0.25 Antibiotics Encouraged *Procalcitonin results should be interpreted carefully in settings that are known to falsely elevate results such as renal failure, trauma, localized infections and sheffield. Blood Venipuncture / Unknown 07/12/2024 4:46 PM EDT 07/12/2024 4:47 PM EDT Gagandeep Naranjo DO LAB BLOOD ORDERABLES Final Res ult Performing Organization Address [facility] Co de Phone Number [facility] [address] [phone] * Lipase (07/12/2024 4:46 PM EDT) Only the most recent of2 resultswithin the time period is included. Lipase 20 13 - 75 U/L 07/12/2024 5:15 PM EDT [facility] Blood Venipuncture / Unknown 07/12/2024 4:46 PM EDT 07/12/2024 4:47 PM EDT Sally Ribera APRN LAB BLOOD ORDERABLES Final Res ult Performing Organization Address [facility] Co de Phone Number [facility] [address] [phone] * (ABNORMAL) Vitamin B12 (07/12/2024 4:46 PM EDT) Vitamin B12 2,764(H) 193 - 986 pg/mL 07/12/2024 9:46 PM EDT [facility] Blood Venipuncture / Unknown 07/12/2024 4:46 PM EDT 07/12/2024 4:47 PM EDT Rupert Betancourt MD LAB BLOOD ORDERABLES Final Res ult Performing Organization Address [facility] Co de Phone Number [facility] [address] [phone] * Blood Culture (07/12/2024 4:20 PM EDT) Only the most recent of2 resultswithin the time period is included. Result No growth in 5 days 07/17/2024 5:00 PM EDT [facility] Blood Venipuncture / Unknown 07/12/2024 4:20 PM EDT 07/12/2024 4:23 PM EDT Sally Ribera APRN MICROBIOLOGY - GENERAL ORDERAB LES Final Result Performing Organization Address [facility] Co de Phone Number [facility] [address] [phone] * EKG-SCANNED (07/12/2024) Only the most recent of2 resultswithin the time period is included. Narrative 07/12/2024 Ordered by an unspecified provider. us Default Scanning Provider SCAN ORDERS Final Result * (ABNORMAL) Urine Culture (07/04/2024 8:02 PM EDT) Result 10-100,000 CFU Klebsiella pneumoniae(A) 07/06/2024 9:26 AM EDT [facility] Urine URINE SPECIMEN COLLECTION, CLEAN CATCH / Unknown 07/04/2024 8:02 PM EDT 07/04/2024 8:19 PM EDT Narrative Organism Antibiotic Method Susceptibility Klebsiella pneumoniae Amikacin <=16: Susceptible Klebsiella pneumoniae Amoxicillin + Clavulanate <=8/4: Susceptible Klebsiella pneumoniae Ampicillin <=8: Resistant Klebsiella pneumoniae Ampicillin + Sulbactam <=4/2: Susceptible Klebsiella pneumoniae Aztreonam <=4: Susceptible Klebsiella pneumoniae Cefazolin <=2: Susceptible Klebsiella pneumoniae Cefepime <=2: Susceptible Klebsiella pneumoniae Cefotaxime <=2: Susceptible Klebsiella pneumoniae Cefoxitin <=8: Susceptible Klebsiella pneumoniae Ceftazidime <=1: Susceptible Klebsiella pneumoniae Ceftriaxone <=1: Susceptible Klebsiella pneumoniae Cefuroxime <=4: Susceptible Klebsiella pneumoniae Ciprofloxacin <=0.25: Susceptible Klebsiella pneumoniae Ertapenem <=0.5: Susceptible Klebsiella pneumoniae Gentamicin <=2: Susceptible Klebsiella pneumoniae Imipenem <=1: Susceptible Klebsiella pneumoniae Levofloxacin <=0.5: Susceptible Klebsiella pneumoniae Meropenem <=1: Susceptible Klebsiella pneumoniae Minocycline <=4: Susceptible Klebsiella pneumoniae Nitrofurantoin <=32: Susceptible Klebsiella pneumoniae Piperacillin + Tazobactam <=8: Susceptible Klebsiella pneumoniae Tetracycline <=4: Susceptible Klebsiella pneumoniae Tigecycline <=2: Susceptible Klebsiella pneumoniae Tobramycin <=2: Susceptible Klebsiella pneumoniae Trimethoprim + Sulfamethoxazole >2/38: Resistant us Facundo Ackerman MD MICROBIOLOGY - GENERAL ORDERABL ES Final Result [facility] [address] [place] [address], [facility] [phone] * CT ABDOMEN/PELVIS WITH IV CONTRAST (07/04/2024 4:25 PM EDT) Anatomical Region Laterality Modality Abdomen, Pelvis Computed Tomogra phy (CT) 07/04/2024 5:01 PM EDT Impressions 07/04/2024 5:14 PM EDT Possible cholelithiasis. Otherwise, no acute process. Nonspecific left adrenal nodule. Numerous lytic lesions throughout the bones consistent with patient's known history of multiple myeloma. Images reviewed, interpreted, and dictated by Dr. Jaleesa Crabtree. Transcribed by Jaswant Lopez PA-C Narrative 07/04/2024 5:[address] SCAN OF THE ABDOMEN AND PELVIS WITH CONTRAST ?07/04/2024 4:10 PM HISTORY: Acute generalized weakness. COMPARISON: February 04, 2022. PROCEDURE: The patient was injected with IV contrast. Axial images were obtained from the lung bases to the pubic symphysis by computed tomography. This study was performed with techniques to keep radiation doses as low as reasonably achievable, (ALARA). Individualized dose reduction techniques using automated exposure control or adjustment of mA and/or kV according to the patient size were employed. FINDINGS: ABDOMEN: There is mild bibasilar atelectasis. The heart is normal in size. The liver is homogenous with no focal abnormality. There may be stones within the gallbladder. The spleen is unremarkable. There is a nonspecific 10 mm left adrenal nodule, new when compared to prior. The pancreas is unremarkable. The kidneys are unremarkable, without evidence of mass or hydronephrosis. The aorta is normal in caliber. There is no free fluid or adenopathy. PELVIS: The GI tract demonstrates no obstruction. ??The appendix is normal. Uterus is midline. The urinary bladder is unremarkable. There is no free fluid, adenopathy, or inflammatory process. There are numerous lytic lesions throughout the bones consistent patient's known history of multiple myeloma. Diffuse degenerative disc disease is seen throughout the spine. Procedure Note Crystal Crabtree MD - 07/04/2024 CT SCAN OF THE ABDOMEN AND PELVIS WITH CONTRAST 07/04/2024 4:10 PM HISTORY: Acute generalized weakness. COMPARISON: February 04, 2022. PROCEDURE: The patient was injected with IV contrast. Axial images were obtained from the lung bases to the pubic symphysis by computed tomography. This study was performed with techniques to keep radiation doses as low as reasonably achievable, (ALARA). Individualized dose reduction techniques using automated exposure control or adjustment of mA and/or kV according to the patient size were employed. FINDINGS: ABDOMEN: There is mild bibasilar atelectasis. The heart is normal in size. The liver is homogenous with no focal abnormality. There may be stones within the gallbladder. The spleen is unremarkable. There is a nonspecific 10 mm left adrenal nodule, new when compared to prior. The pancreas is unremarkable. The kidneys are unremarkable, without evidence of mass or hydronephrosis. The aorta is normal in caliber. There is no free fluid or adenopathy. PELVIS: The GI tract demonstrates no obstruction. The appendix is normal. Uterus is midline. The urinary bladder is unremarkable. There is no free fluid, adenopathy, or inflammatory process. There are numerous lytic lesions throughout the bones consistent patient's known history of multiple myeloma. Diffuse degenerative disc disease is seen throughout the spine. IMPRESSION: Possible cholelithiasis. Otherwise, no acute process. Nonspecific left adrenal nodule. Numerous lytic lesions throughout the bones consistent with patient's known history of multiple myeloma. Images reviewed, interpreted, and dictated by Dr. Jaleesa Crabtree. Transcribed by Jaswant Lopez PA-C Cuca Barajas MD IMG CT ORDERABLES Final Result * XR chest 1 view portable / bedside (07/04/2024 12:41 PM EDT) Anatomical Region Laterality Modality X-Ray 07/04/2024 2:35 PM EDT Impressions 07/04/2024 3:09 PM EDT No acute cardiopulmonary process. Images reviewed, interpreted, and dictated by Dr. Mert Knight. Transcribed by Silvia Pablo PA-C. Narrative 07/04/2024 3:09 PM EDT PORTABLE CHEST. ?07/04/2024 12:31 PM HISTORY: Weakness, multiple myeloma, nausea and vomiting. COMPARISON: January 2018. FINDINGS: The cardiac silhouette is normal in size. The mediastinum is unremarkable. The lungs are clear. There is no pneumothorax. Procedure Note Mert Knight MD - 07/04/2024 PORTABLE CHEST. 07/04/2024 12:31 PM HISTORY: Weakness, multiple myeloma, nausea and vomiting. COMPARISON: January 2018. FINDINGS: The cardiac silhouette is normal in size. The mediastinum is unremarkable. The lungs are clear. There is no pneumothorax. IMPRESSION: No acute cardiopulmonary process. Images reviewed, interpreted, and dictated by Dr. Mert Knight. Transcribed by Silvia Pablo PA-C. Facundo Ackerman MD IMG DIAGNOSTIC IMAGING ORDERABL ES Final Result * Immunofix Electrophoresis Bill(SENDOUT) (06/13/2024 3:45 PM EDT) Pathologist [facility] Immunofix Electrophoresis Bill Billed 06/17/2024 8:41 PM EDT [employer] Comment: Performed By: [facility] [address] [place] [address] Oil And Gas Drafter: Parker Rangel MD, PhD CLIA Number: [id number] Blood ENTIRE RIGHT UPPER ARM / Unknown Venipuncture / Unknown 06/13/2024 3:45 PM EDT 06/13/2024 3:55 PM EDT Caleb Pacheco MD LAB BLOOD ORDERABLES Final Res ult [facility] [address] [place] [address], [facility] [phone] * (ABNORMAL) Protein Electrophoresis w Rflx to RALPH(SENDOUT) (06/13/2024 3:45 PM EDT) [facility] Total Protein, Serum 7.4 6.3 - 8.2 g/dL 06/17/2024 8:41 PM EDT [facility] Albumin 2.35(L) 3.75 - 5.01 g/dL 06/17/2024 8:41 PM EDT [facility] Alpha 1 Globulin 0.35 0.19 - 0.46 g/dL 06/17/2024 8:41 PM EDT [facility] Alpha 2 Globulin 0.67 0.48 - 1.05 g/dL 06/17/2024 8:41 PM EDT [facility] Beta Globulin 3.89(H) 0.48 - 1.10 g/dL 06/17/2024 8:41 PM EDT [facility] Gamma 0.15(L) 0.62 - 1.51 g/dL 06/17/2024 8:41 PM EDT [facility] Immunofixation Reflex RALPH Done 06/17/2024 8:41 PM EDT [facility] Monoclonal Protein 3.41(H) <=0.00 g/dL 06/17/2024 8:41 PM EDT [facility] SPEP/RALPH Interpretation See Note 06/17/2024 8:41 PM EDT [facility] Comment: Monoclonal spike in the beta region. The quantitation may include complement and/or transferrin components. Measurement of total Immunoglobulin (IgA, IgG, or IgM) can be used for the quantitation of the monoclonal spike instead. Hypogammaglobulinemia. RALPH gel pattern shows an IgA type lambda monoclonal protein with an additional faint band in lambda. EER Serum Protein Electrophoresis Reflex See Note 06/17/2024 8:41 PM EDT [facility] Comment: Authorized individuals can access the [facility] Enhanced Report using the following link: [email or web address] Performed By: [facility] [address] [place] [address] Oil And [employer] Drafter: Parker Rangel MD, PhD CLIA Number: [id number] Blood ENTIRE RIGHT UPPER ARM / Unknown Venipuncture / Unknown 06/13/2024 3:45 PM EDT 06/13/2024 3:55 PM EDT us Caleb Pacheco MD LAB BLOOD ORDERABLES Final Res ult [facility] [address] [place] [address], [facility] [phone] * (ABNORMAL) [place]-Lambda Quant FLC with Ratio(SENDOUT) (06/13/2024 3:45 PM EDT) [facility] [place] Qnt Free Light Chains 1.38(L) 3.30 - 19.40 mg/L 06/15/2024 11:28 PM EDT [facility] Comment: INTERPRETIVE INFORMATION: [place] Qnt Free Light Chains Undetected antigen excess is a rare event but cannot be excluded. Free light chain results should always be interpreted in conjunction with other clinical and laboratory findings. Lambda Qnt Free Light Chains 333.51(H) 5.71 - 26.30 mg/L 06/15/2024 11:28 PM EDT [employer] Comment: INTERPRETIVE INFORMATION: Lambda Qnt Free Light Chains Undetected antigen excess is a rare event but cannot be excluded. Free light chain results should always be interpreted in conjunction with other clinical and laboratory findings. [place]/Lambda Free Light Chain Ratio <0.01(L) 0.26 - 1.65 06/15/2024 11:28 PM EDT [employer] Comment: Performed By: [facility] [address] [place] [address] [employer] And [employer] Drafter: Parker Rangel MD, PhD CLIA Number: [id number] Blood ENTIRE RIGHT UPPER ARM / Unknown Venipuncture / Unknown 06/13/2024 3:45 PM EDT 06/13/2024 3:55 PM EDT Caleb Pacheco MD LAB BLOOD ORDERABLES Final Res ult Performing Organization Address [facility] de Phone Number [address] [phone] * (ABNORMAL) Immunoglobulin M(SENDOUT) (06/13/2024 3:45 PM EDT) Immunoglobulin M 14(L) 35 - 263 mg/dL 06/17/2024 8:24 PM EDT [employer] Comment: Performed By: [facility] [address] [place] [address] [employer] And [employer] Drafter: Parker Rangel MD, PhD CLIA Number: [id number] Blood ENTIRE RIGHT UPPER ARM / Unknown Venipuncture / Unknown 06/13/2024 3:45 PM EDT 06/13/2024 3:55 PM EDT Caleb Pacheco MD LAB BLOOD ORDERABLES Final Res ult Performing Organization Address [facility]/ZIP Co de Phone Number [address] [phone] * (ABNORMAL) Immunoglobulin G(SENDOUT) (06/13/2024 3:45 PM EDT) Immunoglobulin G 107(L) 768 - 1632 mg/dL 06/17/2024 8:23 PM EDT [facility] Comment: Performed By: [facility] [address] [place] [address] [employer] And [employer] Drafter: Parker Rangel MD, PhD CLIA Number: [id number] Blood ENTIRE RIGHT UPPER ARM / Unknown Venipuncture / Unknown 06/13/2024 3:45 PM EDT 06/13/2024 3:55 PM EDT Caleb Pacheco MD LAB BLOOD ORDERABLES Final Res ult Performing Organization Address [facility] de Phone Number [address] [phone] * (ABNORMAL) Immunoglobulin A(SENDOUT) (06/13/2024 3:45 PM EDT) Pathologist [facility] Immunoglobulin A 3081(H) 68 - 408 mg/dL 06/17/2024 8:24 PM EDT [employer] Comment: Performed By: [facility] [address] [place] [address] [employer] Drafter: Parker Rangel MD, PhD CLIA Number: [id number] Blood ENTIRE RIGHT UPPER ARM / Unknown Venipuncture / Unknown 06/13/2024 3:45 PM EDT 06/13/2024 3:55 PM EDT Caleb Pacheco MD LAB BLOOD ORDERABLES Final Res ult Performing Organization Address [facility] de Phone Number [facility] [address] [phone] * (ABNORMAL) BMP (Onc - Blazer, BETTINA) (06/06/2024 11:11 AM EDT) Only the most recent of2 resultswithin the time period is included. Pathologist [facility] Sodium 141 136 - 146 meq/L 06/06/2024 11:27 AM EDT [facility] Potassium 3.8 3.5 - 5.1 meq/L 06/06/2024 11:27 AM EDT [facility] Chloride 105 98 - 108 meq/L 06/06/2024 11:27 AM EDT [facility] CO2 24 22 - 29 meq/L 06/06/2024 11:27 AM EDT [facility] Anion Gap 16 9 - 20 06/06/2024 11:27 AM EDT [facility] BUN 9 7 - 18 mg/dL 06/06/2024 11:27 AM EDT [facility] Creatinine 1.10 0.60 - 1.10 mg/dL 06/06/2024 11:27 AM EDT [facility] BUN/Creatinine 8 8 - 20 06/06/2024 11:27 AM EDT [facility] Glucose 118(H) 70 - 105 mg/dL 06/06/2024 11:27 AM EDT [facility] Calcium Ionized (mg/dL) 4.95 4.36 - 5.20 mg/dL 06/06/2024 11:27 AM EDT [facility] Blood ENTIRE RIGHT UPPER ARM / Unknown Venipuncture / Unknown 06/06/2024 11:11 AM EDT 06/06/2024 11:23 AM EDT us Caleb Pacheco MD LAB BLOOD ORDERABLES Final Res ult Performing Organization Address City/State/[facility] Co de Phone Number [facility] [address] [phone] * MM digital mammo screen bilateral (10/14/2023 9:05 AM EST) Anatomical Region Laterality Modality Breast Bilateral Mammography 10/14/2023 1:22 PM EST Impressions 10/14/2023 1:24 PM EST FINAL IMPRESSION: Stable mammogram. No findings suspicious for malignancy. Bi-RADS: ACR BI-RADS 1: Negative. RECOMMENDATIONS: ??Annual screening mammography. A letter including results and recommendations was sent to the patient. Density notification was included for patients with pattern 3 or 4 breast tissue. Patient information was entered into a reminder system with a target due date for the next mammogram. At our facility, a [place] marker is positioned over a visible skin lesion and a linear marker is used to indicate a scar. A triangular marker is placed on a self reported palpable finding. Note: Mammography does not detect approximately 10-15% of breast cancers. An annual clinical breast exam by the patient's breast care physician and regular monthly self breast exams by the patient are integral parts of breast cancer screening, in addition to annual mammography. A normal mammogram does not completely exclude the presence of breast cancer, especially if there is an abnormal finding on physical exam. When clinically indicated, a biopsy should not be deferred because of a normal mammogram report. Narrative 10/14/2023 1:24 PM EST PROCEDURE: ??Digital screening mammogram. REASON FOR EXAM: Routine screening. FAMILY HISTORY: ??Weak family history of breast cancer. COMPARISON STUDY: ??2021, 2020, 2018 from [facility] FINDINGS: Craniocaudal and mediolateral oblique images of both breasts were obtained. The breast tissue is almost entirely fatty. There is no evidence of dominant mass, architectural distortion, or suspicious calcifications. The mammogram was interpreted with the benefit of computer aided detection (CAD). Clifford HUNT [facility] MAMMOGRAPHY ORDERABLES F inal Result from Last 3 Months or Most Recently Relevant to Health Maintenance Insurance [id number] (Home) [address] [place] [id number] MEDICAID QMB DUAL COMPLETE [facility] DUAL COMPLETE MCR ADV Advance Directives For more information, please contact: [phone] * Full Code (Latest Code Status on File) Date Activated Date Inactivated Comments 07/12/2024 7:14 PM 07/20/2024 1:09 PM Care Teams Back Winder Relationship Specialty Start Date End Date Clifford Newell PA [address] [place] [address] [place] [address] PCP - General Physician Cadmium Liquor Maker 10/14/23
--- OUTSIDE RECORDS SUMMARY | 2024-08-03 16:55 | XMS_ITS | Encounter Summary ---
Author Organization [employer] Address [address] [place] [address] Care Team Providers Care Manager Garage Name Role Phone Clifford Newell Primary Care Provider + [phone] Encounter Details Date Type Department Care Team (Latest Contact Info) Description 07/21/2024 Travel Social History Tobacco Use Types Packs/Day Years [...] Date Record ed How often does anyone, debbydiane thrasher family and friends, physically hurt you? [...] Do you speak a language other than Tanzanian at [facility]? No 07/12/2024 Do you want help with [...] as of this encounter Plan of Treatment Not on file documented as of this encounter Visit Diagnoses Not on filedocumented in this encounter Care Teams Manager Garage Relationship Specialty Start Date End Date Clifford Newell PA [address] [place] [address] [place] [address] PCP - General Physician Valve Inserter 10/14/23 documented as of this encounter
--- OUTSIDE RECORDS SUMMARY | 2024-08-03 16:55 | XMS_ITS | Encounter Summary ---
Author Organization [employer] Address [address] [place] [address] Care Team Providers Care Bellows Charger Assembler Name Role Phone Clifford Newell Primary Care Provider + [phone] Reason for Visit * Reason Onset Date Comments hospice referral, gabapentin refill 07/25/2024 Encounter Details Date Type Department Care Team (Late st Contact Info) Description 07/25/2024 Telephone [place] [facility] [address] [facility] [address] [place] [address] Caleb Pacheco MD [address] [facility] [address] [place] [address] hospice referral, gabapentin refill Social History Tobacco Use Types Packs/Day Years [...] harm? Never 07/12/2024 How often does anyone, inclu ding family and friends, scream or curse at [...] Do you speak a language other than [place]ian at [facility]? No 07/12/2024 Do you want help with [...] on file documented as of this encounter Miscellaneous Notes * Telephone Encounter - Nicki Thurston RN - 07/25/2024 1:31 PM EST 07/25/24 12:43 pm Mikel Sousa [phone] about Francy Sousa like to go over options and refills and about hospice. RN returned call to pt's son Jama and he states that at the last appt DR Pacheco life expectancy, he doesn't know what to do. Pt thinks that she will be getting better because she has been getting better since being in Rehab facility. Son has taken her out of the Rehab facility after appt on Wednesday. She has been taking all her medications, she is getting up to use the bathroom. She is eating food, no full course meals. If she is not eating then she is taking ensure. She is more aware now. She does not complain of any pain. Son said that pt is out of gabapentin and inhaler. He said that every time he stands pt up to help her to the bathroom she gets short of breath and needs to use her inhaler. Advair HFA is the inhaler. RN advised son that this is not a rescue type inhaler, it's usually used scheduled. He can contact PCP or original prescriber to have them refill this. . Pt was prescribed Gabapentin [address] Jose from hospital. Pt will need this sent to [facility] on [address] in [place]. Rn will notify Dr Pacheco of refill request and also that they are ready to pursuehospice. Message sent to Dr Pacheco and Amanda, social services. ASSEMBLER documented in this encounter Plan of Treatment Not on file documented as of this encounter Visit Diagnoses Not on filedocumented in this encounter Care Teams Bellows Charger Assembler Relationship Specialty Start Date End Date Clifford Newell PA [address] [place] [address] [place] Ling [address] PCP - General Physician Developmental Psychologist 10/14/23 documented as of this encounter
--- OUTSIDE RECORDS SUMMARY | 2024-08-03 16:55 | XMS_ITS | Referral Summary ---
Author Organization [employer] Address [address] [place] [address] Care Team Providers Care Round Up Ring Hand Name Role Phone Clifford Newell Primary Care Provider + [phone] Encounters Date Type Department Care Team Description 07/31/2024 Documentation [facility] [address] [place] [phone] Amanda Russell, BED BUG EXTERMINATOR 07/28/2024 Social Work [facility] [address] [place] [phone] Amanda Russell, BED BUG EXTERMINATOR 07/28/2024 Documentation [facility] [address] [place] [address] Shelby Nuñez, RN 07/27/2024 Documentation [facility] [address] [place] [address] Brandy Thomas, RN 07/25/2024 Orders Only [facility] [address] [place] [address] Caleb Pacheco MD Multiple myeloma without remission (HCC) (Primary Dx) 07/25/2024 Telephone [facility] [address] [place] [address] Caleb Pacheco MD hospice referral, gabapentin refill 07/21/2024 Travel 07/21/2024 11:00 AM EDT Office Visit [facility] [address] [place] [address] Caleb Pacheco MD Multiple myeloma without remission (HCC) 07/12/2024 3:55 PM EDT - 07/20/2024 12:09 PM EDT Hospital Encounter [facility] 4 Interventional Care Unit 1 [place] [address] Facundo Ackerman MD Tovar, Jesus V, MD Khan, Imran, MD Sepsis (HCC) (Primary Dx); Transient alteration of awareness; Anemia; Sepsis, due to unspecified organism, unspecified whether acute organ dysfunction present (HCC); Anemia, unspecified type Discharge Disposition: Halfway Facility 07/13/2024 Telephone [facility] [address] [place] [address] Caleb Pacheco MD PT update 07/12/2024 Travel 07/12/2024 Orders Only [facility] [address] [place] [address] Caleb Pacheco MD 07/11/2024 Orders Only [facility] [address] [place] [address] Caleb Pacheco MD 07/10/2024 Orders Only [facility] [address] [place] [address] Caleb Pacheco MD 07/07/2024 Documentation [facility] - [facility] [address] [place] [address] Caleb Pacheco MD 07/07/2024 Travel 07/07/2024 Orders Only [facility] [address] [place] [address] Frank Castanon, PharmD BCPS 07/07/2024 12:15 PM EDT Infusion [facility] [address] [place] [address] Caleb Pacheco MD Multiple myeloma without remission (HCC) 07/07/2024 12:00 PM EDT Office Visit [facility] [address] [place] [address] Caleb Pacheco MD Multiple myeloma without remission (HCC) 07/04/2024 Travel 07/04/2024 12:01 PM EDT - 07/04/2024 9:00 PM EDT Emergency [facility] Emergency Department 1 [place] [address] Cuca Barajas MD Nausea and vomiting, unspecified vomiting type (Primary Dx); Urinary tract infection without hematuria, site unspecified Discharge Disposition: Home or Self Care 07/04/2024 Telephone [facility] [address] [place] [address] Caleb Pacheco MD diarrhea, weakness,vertigo 2024 Orders Only [facility] [address] [place] [phone] Caleb aPcheco MD 06/20/2024 Orders Only [facility] [address] [place] [address] Caleb Pacheco MD Multiple myeloma without remission (HCC) (Primary Dx) 06/20/2024 Orders Only [facility] [address] [place] [address] Caleb Pacheco MD 06/19/2024 Orders Only [facility] [address] [place] [address] Frank Castanon, PharmD BCPS 06/16/2024 Orders Only [facility] [address] [place] [address] Caleb Pacheco MD 06/16/2024 Refill [facility] - [facility] [address] [place] [address] Caleb Pacheco MD 06/13/2024 Travel 06/13/2024 Orders Only [facility] [address] [place] [address] Caleb Pacheco MD 06/13/2024 2:15 PM EDT Infusion [facility] [address] [place] [address] Caleb Pacheco MD Multiple myeloma without remission (HCC) (Primary Dx) 06/13/2024 1:15 PM EDT Office Visit [facility] [address] [place] [address] Caleb Pacheco MD Multiple myeloma without remission (HCC) 06/06/2024 Orders Only [facility] - [facility] [address] [place] [address] Caleb Pacheco MD 06/06/2024 Travel 06/06/2024 11:00 AM EDT Infusion [facility] [address] [place] [address] Caleb Pacheco MD Multiple myeloma without remission (HCC) (Primary Dx); Pain in both lower extremities 05/29/2024 Telephone [facility] [address] [place] [address] Caleb Pacheco MD appointment change request 05/26/2024 Travel 05/26/2024 12:30 PM EDT Infusion [facility] [address] [place] [address] Caleb Pacheco MD Multiple myeloma without remission (HCC) (Primary Dx) 05/26/2024 12:15 PM EDT Office Visit [facility] [address] [place] [address] Caleb Pacheco MD Multiple myeloma without remission (HCC) 05/19/2024 Orders Only [facility] - [facility] [address] [place] [address] Caleb Pacheco MD Multiple myeloma without remission (HCC) (Primary Dx) 05/15/2024 Telephone [facility] [address] [place] [address] Caleb Pacheco MD reschedule appointment on 05/26/24 05/12/2024 Travel 05/12/2024 10:00 AM EDT Infusion [facility] - [facility] [address] [place] [address] Caleb Pacheco MD Multiple myeloma without remission (HCC) (Primary Dx) 05/12/2024 9:45 AM EDT Office Visit [facility] [address] [place] [address] Caleb Pacheco MD Multiple myeloma without remission (HCC) 05/08/2024 Telephone [facility] - [facility] [address] [place] [address] Caleb Pacheco MD reschedule appointment 05/04/2024 Orders Only [facility] [address] [place] [address] Caleb Pacheco MD Multiple myeloma without remission (HCC) (Primary Dx) from Last 3 Months Allergies Active Allergy Reactions Criticality Noted Date [...] total) by mouth daily. 30 tablet 5 024 2024 Active ergocalciferol (DRISDOL) 1,250 mcg (50,000 [...] times daily for 30 days. 60 tablet 024 2023 Active Additional Information Patient not taking.Reported on 07/21/2024 metoprolol tartrate (LOPRESSOR) 25 MG tablet Take 0.5 tablets (12.5 mg total) by mouth 2 (two) times daily. 0 024 2024 Active Additional Information Patient not taking.Reported [...] tablet (10 mg total) by mouth nightly. 022 2023 Discontinued cetirizine (ZyrTEC) 10 MG tablet [...] (25 mg total) by mouth daily. 2023 Discontinued meclizine (ANTIVERT) 25 mg tablet Take 1 tablet (25 mg total) by mouth 4 (four) times daily as needed. 60 tablet 5 2023 Discontinued benzonatate (TESSALON) 100 MG capsule Take 1 capsule (100 mg total) by mouth 3 (three) times daily as needed for Cough for up to 30 doses. 30 capsule 023 2023 Discontinued oxyCODONE (OXY-IR) 10 mg tablet Take 1 tablet (10 mg total) by mouth every 4 (four) hours as needed for up to 100 doses. Max Daily Amount: 60 mg 100 tablet 024 2023 Discontinued UNKNOWN Take 1 tablet by mouth daily [employer] [place] - for memory loss. 2023 Discontinued acyclovir (ZOVIRAX) 5 % ointment Apply topically every 3 (three) hours. 15 g 2 024 2023 Discontinued Pomalyst 1 mg Cap TAKE 1 CAPSULE BY MOUTH ONCE DAILY. 21 capsule 024 2023 Discontinued sulfamethoxazole- trimethoprim (BACTRIM DS) 800-160 [...] and dinner for 7 days. 14 capsule 2023 Discontinued nitrofurantoin, macrocrystal-mono hydrate, (MACROBID) 100 [...] Sepsis 07/12/2024 Multiple myeloma without remission 06/16/2022 Social History Tobacco Use Types Packs/Day Years Used Date Smoking Tobacco: Never Smokeless Tobacco: Never Tobacco Cessation:Counseling Given: Not Answered Alcohol Use Standard Drinks/Week Comments Never 0 (1 standard drink = 0.6 oz pur e alcohol) Utilities Answer Date Recorded In the past 12 months, has t he [employer], gas, oil, or water company threatened to [...] Do you speak a language other than [place] at [facility]? No 07/12/2024 Do you [...] 07/12/2024 3:57 PM EDT Plan of Treatment Not on file Procedures Procedure Name Priority Date/Time Associated Diagnosis [...] GLUCOSE POC Routine 07/17/2024 8:26 AM EDT [facility] CBC SCAN Routine 07/17/2024 8:06 AM EDT [...] EDT PROCALCITONIN Add-On 07/12/2024 4:46 PM EDT [facility] PERIPHERAL SMEAR PATH REVIEW Routine 07/12/2024 4:46 [...] - 10.0 K/??L 07/20/2024 8:53 AM EDT [facility] RBC 2.87(L) 3.93 - 5.22 M/??L 07/20/2024 8:53 AM EDT [facility] Hemoglobin 8.9(L) 11.2 - 15.7 GM/DL 07/20/2024 8:53 AM T [facility] Hematocrit 30.0(L) 34.1 - 44.9 % 07/20/2024 8:53 AM [facility] MCV 105(H) 79 - 95 fL 07/20/2024 8:53 AM EDT [facility] MCH 31.0 25.6 - 32.2 pg 07/20/2024 8:53 AM EDT [facility] MCHC 29.7(L) 32.2 - 35.5 GM/DL 07/20/2024 8:53 AM T [facility] RDW 16.6(H) 11.7 - 14.4 % 07/20/2024 8:53 AM EDT [facility] Platelets 40(LL) 140 - 375 K/CU MM 07/20/2024 8:53 AM [facility] MPV 13.5(H) 9.4 - 12.3 fL 07/20/2024 8:53 AM T [facility] Blood Venipuncture / Unknown 07/20/2024 8:17 AM EDT 07/20/2024 8:35 AM EDT Chandra Jose MD LAB BLOOD ORDERABLES Final Resul t Performing Organization Address City/[facility]/ZIP Co de Phone Number [facility] [address] [phone] * (ABNORMAL) Potassium (07/19/2024 9:27 AM EDT) Only the most recent of2 resultswithin the time period is included. Potassium 3.4(L) 3.5 - 5.1 meq/L 07/19/2024 9:58 AM EDT [facility] Blood Venipuncture / Unknown 07/19/2024 9:27 AM EDT 07/19/2024 9:32 AM EDT Chandra Jose MD LAB BLOOD ORDERABLES Final Resul t [facility] [address] [phone] * (ABNORMAL) Basic Metabolic Panel (07/19/2024 9:27 AM EDT) Only the most recent of5 resultswithin the time period is included. Sodium 140 136 - 146 meq/L 07/19/2024 10:02 AM EDT [facility] Potassium 3.4(L) 3.5 - 5.1 meq/L 07/19/2024 10:02 AM EDT [facility] Chloride 110 102 - 112 meq/L 07/19/2024 10:02 AM EDT [facility] CO2 20(L) 21 - 32 meq/L 07/19/2024 10:02 AM EDT [facility] Anion Gap 13 9 - 20 07/19/2024 10:02 AM EDT [facility] BUN 11 7 - 22 mg/dL 07/19/2024 10:02 AM EDT [facility] Creatinine 0.47(L) 0.55 - 1.02 mg/dL 07/19/2024 10:02 AM EDT [facility] BUN/Creatinine 23(H) 8 - 20 07/19/2024 10:02 AM EDT [facility] Glucose 118(H) 74 - 106 mg/dL 07/19/2024 10:02 AM EDT [facility] Calcium 7.3(L) 8.4 - 10.1 mg/dL 07/19/2024 10:02 AM EDT [facility] Osmolality Calc 279.9 10:02 AM EDT [facility] eGFR (mL/min/1.73m2) >60 >=60 mL/min/1.7 3m2 07/19/2024 10:02 AM EDT [facility] Comment:eGFR of <60 suggests chronic kidney disease if found over a 3 month period of time. eGFR <15 indicates renal failure. Blood Venipuncture / Unknown 07/19/2024 9:27 AM EDT 07/19/2024 9:32 AM EDT us Chandra Jose MD LAB BLOOD ORDERABLES Final Resul t [facility] [address] [place] [address] * (ABNORMAL) Glucose, Nova Meter (07/19/2024 7:29 AM EDT) Only the most recent of18 resultswithin the time period is included. POC-GLUCOSE 111(H) 70 - 110 mg/dL 07/19/2024 7:31 AM EDT [facility] Comment:In the event of poor peripheral blood flow, venous or arterial blood should be used due to the potential of erroneous results. [employer] Support Manager [phone] 07/19/2024 7:31 AM EDT [facility] Blood WHOLE BLOOD / Unknown 07/19/2024 7:29 AM EDT 07/19/2024 7:31 AM EDT Narrative [facility] - 07/19/2024 7:31 AM EDT [employer] Support Manager ID is - [phone] Chandra Jose MD POINT OF CARE TEST ORDERABLES Fi nal Result [facility] [address] [place] [id number] [phone] * CT BIOPSY SITE - BONE MARROW [...] and thrombocytopenia. ATTENDING PHYSICIAN: Dr. Garrison PHYSICIAN PLANT CYTOLOGIST: Serge Castillo PA-C PROCEDURE: This study was [...] and thrombocytopenia. ATTENDING PHYSICIAN: Dr. Garrison PHYSICIAN PLANT CYTOLOGIST: Serge Castillo PA-C PROCEDURE: This study was [...] Cristi Garrison. Transcribed by Serge Castillo PA-C. Lico Rogers MD [facility] [place] ORDERABLES Final Result * [facility] BONE MARROW SMEAR, ASPIRATION, AND STAIN (07/18/2024 12:42 PM EDT) AP RESULT See Note: [facility] Comment: [facility] [address] ?[place], [place] ??[address] or [phone] Forrest Rosado M.D., Base Engineer PATIENT NAME ?LABORATORY NO. [id number] ??ASHER DANIEL. ? [id number] [facility] ?AGE ?SEX ?? SSN ? CLIENT REF # [id number] ? 1960 F ? [id number] [address] [place] [address] ?REQUESTING M.D. ?? ATTENDING M.Jose Angel. ?? COPY TO.. LICO ROGERS DATE COLLECTED [...] rendered by Antonia Perkins M.D., MPH at [facility], [address] [place] [address]. DIAGNOSIS: PERIPHERAL SMEAR , BONE MARROW ASPIRATION [...] CD38, CD45, CD56, CD57, CD117, CD123, HLA-DR, [place], and Lambda. These tests use analyte specific [...] rendered by Antonia Perkins M.D., MPH at [facility], [address] [place] [address]. GROSS DESCRIPTION: A. ?? Received 1 peripheral [...] Antonia Perkins M.D., MPH CPT CODES: ? 52088, 2FLP, 6FLP, 47431, [id number], 08816, 33402 Bone Marrow BONE MARROW STRUCTURE / Unknown 07/18/2024 12:42 PM EDT Lico Rogers MD PATHOLOGY/CYTOLOGY ORDERABLES Edited Result - Final [facility] [address] * (ABNORMAL) TSH (07/18/2024 5:13 AM EDT) Only the most recent of2 resultswithin the time period is included. TSH 0.230(L) 0.358 - 3.740 uIU/mL 07/18/2024 6:02 AM EDT [facility] Blood Venipuncture / Unknown 07/18/2024 5:13 AM EDT 07/18/2024 5:28 AM EDT Narrative [facility] - 07/18/2024 6:02 AM EDT Biotin supplements can cause clinically significant incorrect lab results. The FDA has seen an increase in the number of reported adverse events related to biotin interference with lab tests. Chandra Jose MD LAB BLOOD ORDERABLES Final Resul t [facility] [address] [phone] * (ABNORMAL) Ammonia (07/18/2024 5:13 AM EDT) Only the most recent of6 resultswithin the time period is included. Ammonia 47(H) 11 - 32 ??mol/L 07/18/2024 5:47 AM EDT [facility] Comment:[employer] has become aware of sulfasalazine and sulfapyridine [...] MD LAB BLOOD ORDERABLES Final Resul t [facility] [address] [phone] * ECHO COMPLETE (DOPPLER / COLOR) WO CONTRAST (07/17/2024 11:49 AM EDT) Anatomical Region Laterality Modality Heart Vascular Ultraso und 07/17/2024 10:4 7 AM EDT Narrative 07/17/2024 5:47 PM EDT TRANSTHORACIC ECHOCARDIOGRAPHY REPORT Demographics Patient Name: ? FREDY ASHER ?: ? 1960 ? [place] Medical Record ?[id number] ?Age: ? 64 year(s) Number: Corporate ID Number: ??[id number] ?Gender ? 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 30.99 kg/m^2 Physician: Date of Service: ?07/17/2024 ?Blood ?132/67 mmHg ? Pressure: Room Number: ?3155 Type of Study: TTE procedure: ECHO COMPLETE (DOPPLER / COLOR) W OR WO CONTRAST. Patient Status: Routine IP Study Location: [facility] Quality: Adequate visualization History/Tech Notes: Indication: [...] ?? E/A ratio: 1.01 m/s ? Volume [id number] ??LV length: 8.57 cm ml Volume nhppnowi74.64 ml LVOT diameter: 2.02 cm Mild left [...] Demographics Patient Name: FREDY STERLING : 1960 [place] Medical Record [id number] Age: 64 year(s) Number: Corporate ID Number: [id number] Gender Female Boat Carpenter Mechanic: Amina Fiore [facility] Height: 70 inches Referring Physician: TREY VALDES Weight: 216 pounds Interpreting REJI CARRANZA MD BMI: 30.99 kg/m^2 Physician: Date of Service: 07/17/2024 Blood 132/67 mmHg Pressure: Room Number: 3155 Type of Study: TTE procedure: ECHO COMPLETE (DOPPLER / COLOR) W OR WO CONTRAST. Patient Status: [facility]ine [facility] History/Tech Notes: Indication: altered [...] 1.07 m/s E/A ratio: 1.01 m/s Volume [id number] LV length: 8.57 cm ml Volume uydesabp12.64 ml LVOT diameter: 2.02 cm Mild left [...] (8-12mmHg). Pericardium / Pleura No pericardial effusion. us Chandra Jose MD CV ECHO ORDERABLES Final Result * (ABNORMAL) CBC Scan (07/17/2024 8:06 AM EDT) Pathologist [facility] Platelet Estimate Decreased (A) Adequate 07/17/2024 9:01 AM EDT [facility] RBC Morphology abnormal( A) Normal 07/17/2024 9:01 AM EDT [facility] Anisocytosis 1+ 07/17/2024 9:01 AM EDT [facility] Polychromasia 1+ 07/17/2024 9:01 AM EDT [facility] Poikilocytes 1+ 07/17/2024 9:01 AM EDT [facility] Blood Venipuncture / Unknown 07/17/2024 8:06 AM EDT 07/17/2024 8:10 AM EDT us Jm Kimball MD LAB BLOOD ORDERABLES Final Res ult [facility] [address] [phone] * (ABNORMAL) CBC with automated diff (07/17/2024 8:06 AM EDT) Only the most recent of7 resultswithin the time period is included. WBC 5.2 4.0 - 10.0 K/??L 07/17/2024 8:22 AM EDT [facility] RBC 2.78(L) 3.93 - 5.22 M/??L 07/17/2024 8:22 AM EDT [facility] Hemoglobin 8.7(L) 11.2 - 15.7 GM/DL 07/17/2024 8:22 AM EDT [facility] Hematocrit 27.6(L) 34.1 - 44.9 % 07/17/2024 8:22 AM EDT [facility] MCV 99(H) 79 - 95 fL 07/17/2024 8:22 AM EDT [facility] MCH 31.3 25.6 - 32.2 pg 07/17/2024 8:22 AM EDT [facility] MCHC 31.5(L) 32.2 - 35.5 GM/DL 07/17/2024 8:22 AM EDT [facility] RDW 18.5(H) 11.7 - 14.4 % 07/17/2024 8:22 AM EDT [facility] Platelets 37(LL) 140 - 375 K/CU MM 07/17/2024 8:22 AM EDT [facility] MPV 12.8(H) 9.4 - 12.3 fL 07/17/2024 8:22 AM EDT [facility] Nucleated Red Blood Cell 3.1(H) 0 - 0.2 % 07/17/2024 8:22 AM EDT [facility] % Neutros 79(H) 34 - 71 % 07/17/2024 8:22 AM EDT [facility] % Lymphs 8(L) 19 - 52 % 07/17/2024 8:22 AM EDT [facility] % Monos 5 5 - 13 % 07/17/2024 8:22 AM EDT [facility] % Eos 0(L) 1 - 6 % 07/17/2024 8:22 AM EDT [facility] % Baso 0 0 - 1 % 07/17/2024 8:22 AM EDT [facility] NRBC Absolute 0.16(H) 0 - 0.012 K/ul 07/17/2024 8:22 AM EDT [facility] # Neutros 4.09 1.56 - 6.13 K/??L 07/17/2024 8:22 AM EDT [facility] # Lymphs 0.42(L) 1.18 - 3.74 K/??L 07/17/2024 8:22 AM EDT [facility] # Monos 0.24 0.24 - 0.86 K/??L 07/17/2024 8:22 AM EDT [facility] # Eos <0.03(L) 0.04 - 0.36 K/??L 07/17/2024 8:22 AM EDT [facility] # Baso <0.03 0.01 - 0.08 K/??L 07/17/2024 8:22 AM EDT [facility] Immature Granulocytes-Re lative 7.60(H) 0.01 - 0.43 % 07/17/2024 8:22 AM EDT [facility] # IG 0.39(H) 0.00 - 0.03 K/uL 07/17/2024 8:22 AM EDT [facility] Blood Venipuncture / Unknown 07/17/2024 8:06 AM EDT 07/17/2024 8:10 AM EDT Narrative [facility] - 07/17/2024 8:22 AM EDT When [...] MD LAB BLOOD ORDERABLES Final Res ult [facility] [address] [phone] * (ABNORMAL) Comprehensive metabolic panel (07/17/2024 8:06 AM EDT) Only the most recent of4 resultswithin the time period is included. Sodium 149(H) 136 - 146 meq/L 07/17/2024 8:38 AM EDT [facility] Potassium 3.1(L) 3.5 - 5.1 meq/L 07/17/2024 8:38 AM EDT [facility] Chloride 118(H) 102 - 112 meq/L 07/17/2024 8:38 AM EDT [facility] CO2 20(L) 21 - 32 meq/L 07/17/2024 8:38 AM EDT [facility] Calcium 7.8(L) 8.4 - 10.1 mg/dL 07/17/2024 8:38 AM [facility] Glucose 135(H) 74 - 106 mg/dL 07/17/2024 8:38 AM [facility] BUN 19 7 - 22 mg/dL 07/17/2024 8:38 AM [facility] Creatinine 0.61 0.55 - 1.02 mg/dL 07/17/2024 8:38 AM [facility] BUN/Creatinine 31(H) 8 - 20 07/17/2024 8:38 AM [facility] Albumin 1.1(L) 3.4 - 5.0 g/dL 07/17/2024 8:38 AM [facility] Alkaline Phosphatase 45 27 - 136 U/L 07/17/2024 8:38 AM [facility] ALT 11(L) 13 - 56 U/L 07/17/2024 8:38 AM [facility] AST 38(H) 5 - 37 U/L 07/17/2024 8:38 AM [facility] Total Bilirubin 0.5 0.2 - 1.2 mg/dL 07/17/2024 8:38 AM [facility] Protein, Total 8.6(H) 6.4 - 8.2 gm/dL 07/17/2024 8:38 AM [facility] Anion Gap 14 9 - 20 07/17/2024 8:38 AM [facility] A/G Ratio 0.1(L) 1.1 - 2.5 07/17/2024 8:38 AM [facility] Globulin 7.5(H) 1.5 - 4.5 g/dL 07/17/2024 8:38 AM [facility] Osmolality Calc 300.4 8:38 AM [facility] eGFR (mL/min/1.73m2) >60 >=60 mL/min/1.7 3m2 07/17/2024 8:38 AM [facility] Comment:ESTIMATED GFR IS NOT ACCURATE CREATININE CLEARANCE IN PREDICTING GLOMERULAR FILTRATION RATE. ESTIMATED GFR IS NOT APPLICABLE FOR DIALYSIS PATIENTS. Blood Venipuncture / Unknown 07/17/2024 8:06 AM EDT 07/17/2024 8:10 AM EDT Jm Kimball MD LAB BLOOD ORDERABLES Final Res ult Performing Organization Address City/[facility] de Phone Number [facility] [address] [phone] * ECG 12 lead (07/16/2024 6:04 PM EDT) Only the most recent of4 resultswithin the time period is included. VENTRICULAR RATE EKG/MIN 117 BPM GE MUSE ATRIAL RATE (MCT) 117 BPM GE MUSE ME Interval 168 ms GE MUSE QRS-INTERVAL (MSEC) 78 ms GE MUSE QT Interval 414 ms GE MUSE QTC Interval 577 ms GE MUSE P [place] 78 degrees GE MUSE R AXIS (MCT) 39 degrees GE MUSE T Wave [place] 27 degrees GE MUSE [place] Diagnosis Atrial fibrillation with rapid ventricular response Prolonged QT Abnormal ECG When compared with ECG of 16-JUL-2024 14:52, No significant change was found Confirmed by Reji Carranza ([id number]), manuscript editor DESTINY JOHN ([id number]) on 07/17/2024 6:23:03 PM GE MUSE 07/16/2024 6:04 PM EDT 07/17/2024 6:23 PM EDT Chandra Jose MD ECG ORDERABLES Final Result Performing Organization Address [facility] de Phone Number GE MUSE * Magnesium (07/16/2024 6:54 AM EDT) Only the most recent of5 resultswithin the time period is included. Magnesium 2.2 1.5 - 2.4 mg/dL 07/16/2024 3:37 PM EDT [facility] Blood Venipuncture / Unknown 07/16/2024 6:54 AM EDT 07/16/2024 7:57 AM EDT Chandra Jose MD LAB BLOOD ORDERABLES Final Resul t [facility] 1 [place] [address], [facility] [phone] * XR chest AP portable (07/16/2024 3:32 [...] - 8.2 gm/dL 07/15/2024 6:42 PM EDT [facility] Albumin 1.1(L) 3.4 - 5.0 g/dL 07/15/2024 6:42 PM EDT [facility] Total Bilirubin 0.9 0.2 - 1.2 mg/dL 07/15/2024 6:42 PM EDT [facility] Bilirubin, Direct 0.6(H) 0.0 - 0.2 mg/dL 07/15/2024 6:42 PM EDT [facility] Alkaline Phosphatase 53 27 - 136 U/L 07/15/2024 6:42 PM EDT [facility] Globulin 8(H) 1.5 - 4.5 g/dL 07/15/2024 6:42 PM EDT [facility] A/G Ratio 0.1(L) 1.1 - 2.5 07/15/2024 6:42 PM EDT [facility] AST 26 5 - 37 U/L 07/15/2024 6:42 PM EDT [facility] Comment:[employer] has become aware of sulfasalazine and sulfapyridine [...] - 56 U/L 07/15/2024 6:42 PM EDT [facility] Comment:[employer] has become aware of sulfasalazine and sulfapyridine [...] 2:39 PM EDT 07/15/2024 2:55 PM EDT us Gerson Aguirre MD LAB BLOOD ORDERABLES Final Re sult [facility] [address] [phone] * XR KUB PORTABLE (07/15/2024 12:00 PM [...] - 4.9 mg/dL 07/15/2024 1:22 PM EDT [facility] Blood Venipuncture / Unknown 07/15/2024 6:13 AM EDT 07/15/2024 6:28 AM EDT Chandra Jose MD LAB BLOOD ORDERABLES Final Resul t [facility] [address] [phone] * Ultrasound liver (07/14/2024 4:35 PM EDT) [...] Dr. Bacilio Patel MD us Susie Petersen JOB COACH IMG US ORDERABLES Final Res ult * (ABNORMAL) Blood gas, arterial (07/14/2024 8:15 AM EDT) pH, Arterial 7.50(H) 7.35 - 7.45 07/14/2024 8:18 AM EDT [facility] pCO2, Arterial 27(L) 35 - 45 mm Hg 07/14/2024 8:18 AM EDT [facility] pO2, Arterial 82 80 - 100 mm Hg 07/14/2024 8:18 AM EDT [facility] HCO3, Arterial 21 20 - 26 mmol/L 07/14/2024 8:18 AM EDT [facility] Base Excess, Arterial -2.1(L) -2.0 - 2.0 mmol/L 07/14/2024 8:18 AM EDT [facility] O2 Sat, Arterial 97.5 95.0 - 100.0 % 07/14/2024 8:18 AM EDT [facility] CTO2 ARTERIAL 10.4 mmol/L 07/14/2024 8:18 AM EDT [facility] THB ARTERIAL 7.7(L) 12.0 - 18.0 g/dL 07/14/2024 8:18 AM T [facility] PaO2/FIO2 calculated 389.0 07/14/2024 8:18 AM EDT [facility] COLLECTION SITE Left Radial 07/14/2024 8:18 AM EDT [facility] Arterial Puncture Yes 07/14/2024 8:18 AM T [facility] Blood Gas PT Temperature C 37.0 07/14/2024 8:18 AM EDT [facility] Rafael's Test Acceptable 07/14/2024 8:18 AM T [facility] ABG Number of Draw Attempts 1 07/14/2024 8:18 AM EDT [facility] FIO2 21.0 07/14/2024 8:18 AM EDT [facility] Blood Gas Temperature Corrected Results No No 07/14/2024 8:18 AM EDT [facility] Blood, Arterial 07/14/2024 8 :15 AM EDT 07/14/2024 8:18 AM EDT Chandra Jose MD LAB BLOOD ORDERABLES Final Resul t Performing Organization Address City/[facility]/ZIP Co de Phone Number [facility] [address] [phone] * (ABNORMAL) Haptoglobin(SENDOUT) (07/13/2024 7:43 PM EDT) Haptoglobin 213(H) 30 - 200 mg/dL 07/15/2024 11:11 PM EDT [employer] Comment: Performed By: [employer] [address] [place] [address] Security Expert: Parker Rangel MD, PhD CLIA Number: [id number] Blood Venipuncture / Unknown 07/13/2024 7:43 PM EDT 07/13/2024 7:47 PM EDT Lico Rogers MD LAB BLOOD ORDERABLES Final Res ult Performing Organization Address [facility] Co de Phone Number [employer] [address] [place] [address] * (ABNORMAL) Hemoglobin and hematocrit (07/13/2024 7:43 PM EDT) Only the most recent of2 resultswithin the time period is included. Hemoglobin 7.6(L) 11.2 - 15.7 GM/DL 07/13/2024 7:53 PM EDT [facility] Hematocrit 23.5(L) 34.1 - 44.9 % 07/13/2024 7:53 PM EDT [facility] Blood Venipuncture / Unknown 07/13/2024 7:43 PM EDT 07/13/2024 7:47 PM EDT Chandra Jose MD LAB BLOOD ORDERABLES Final Resul t Performing Organization Address [facility] Co de Phone Number [facility] [address] [phone] * Transfuse RBC (07/13/2024 3:47 PM EDT) Only the most recent of4 resultswithin the time period is included. Rupert Betancourt MD [email or web address] TRANSFUSION ORDERABLES Final Result * Prepare RBC: 2 Units (07/13/2024 6:53 AM EDT) Only the most recent of2 resultswithin the time period is included. Issue Date/Time [id number] [facility] [place] [place] Product Identification Red Blood Cells [facility] [place] Product Code [id number] [facility] [place] Status Information Transfused [facility]) Unit Number [id number] [facility] [place]) Blood Type 6200 [facility] [place] Cross Match Results Compatible [facility] [place] us Rupert Betancourt MD [email or web address] BANK PRODUCT ORDERABLES Final Result Performing Organization Address [facility] Co de Phone Number [facility] [place] [address] [phone] * (ABNORMAL) CALCIUM Ionized (07/13/2024 6:37 AM EDT) Calcium Ionized 1.07(L) 1.12 - 1.32 mmol/L 07/13/2024 6:57 AM EDT [facility] Blood Venipuncture / Unknown 07/13/2024 6:37 AM EDT 07/13/2024 6:50 AM EDT Rupert Betancourt MD LAB BLOOD ORDERABLES Final Res ult Performing Organization Address [facility]/ZIP Co de Phone Number [facility] [address] [phone] * (ABNORMAL) Iron and TIBC (07/13/2024 6:08 AM EDT) Iron 74.0 50.0 - 170.0 ug/dL 07/13/2024 2:38 PM EDT [facility] TIBC 163(L) 250 - 450 ug/dL 07/13/2024 2:38 PM EDT [facility] % Saturation 45 15 - 55 % 07/13/2024 2:38 PM EDT [facility] UIBC 89 07/13/2024 2:38 PM EDT [facility] Blood Venipuncture / Unknown 07/13/2024 6:08 AM EDT 07/13/2024 6:16 AM EDT Lico Rogers MD LAB BLOOD ORDERABLES Final Res ult [facility] [address] [phone] * Lactate dehydrogenase (LDH) (07/13/2024 6:08 AM EDT) Pathologist [facility] LDH 231 84 - 246 U/L 07/13/2024 2:38 PM EDT [facility] Blood Venipuncture / Unknown 07/13/2024 6:08 AM EDT 07/13/2024 6:16 AM EDT Lico Rogers MD LAB BLOOD ORDERABLES Final Res ult [facility] [address] [phone] * Folate, Serum (07/13/2024 6:08 AM EDT) Folate 5.10 3.10 - 17.50 ng/mL 07/13/2024 7:05 AM EDT [facility] Blood Venipuncture / Unknown 07/13/2024 6:08 AM EDT 07/13/2024 6:16 AM EDT us Rupert Betancourt MD LAB BLOOD ORDERABLES Final Res ult Performing Organization Address [facility]/ZIP Co de Phone Number [facility] [address] [phone] * (ABNORMAL) Ferritin (07/13/2024 6:08 AM EDT) Ferritin 1,036.20(H ) 8.00 - 252.00 ng/mL 07/13/2024 2:38 PM EDT [facility] Blood Venipuncture / Unknown 07/13/2024 6:08 AM EDT 07/13/2024 6:16 AM EDT us Lico Rogers MD LAB BLOOD ORDERABLES Final Res ult Performing Organization Address [facility] Co de Phone Number [facility] [address] [phone] * (ABNORMAL) Urine Drug Screen (07/13/2024 5:41 AM EDT) [facility] Amphetamine Urine Negative Negative 024 6:24 AM EDT [facility] Barbiturate Screen Negative Negative 2023 6:24 AM EDT [facility] Benzodiazepine Screen Negative Negative 6:24 AM EDT [facility] Cocaine (Metab.) Screen Negative Negative 07/13/2024 6:24 AM EDT [facility] Opiate Screen Positive(A ) Negative 07/13/2024 6:24 AM EDT [facility] Phencyclidine Screen Negative Negative 06/21 6:24 AM EDT [facility] Tricyclic Screen Negative Negative 07/13/20 6:24 AM EDT [facility] Tetrahydrocannabinol Positive(A ) Negative 07/13/2024 6:24 AM EDT [facility] Creatinine, Ur 219.0 mg/dL 07/13/2024 6:24 AM EDT [facility] pH, UA 5.0(L) 6.0 - 8.0 07/13/2024 6:24 AM EDT [facility] Urine 07/13/2024 5:41 AM EDT 07/13/2024 5:52 AM EDT Narrative [facility] - 07/13/2024 6:24 AM EDT Clinical consideration and professional judgement should be applied to any [id number] test result, particularly when preliminary positive results [...] Rupert Betancourt MD URINE ORDERABLES Final Result [facility] [address] [phone] * (ABNORMAL) Urinalysis, Reflex Microscopic and Culture If Indicated - Cath (07/12/2024 7:47 PM EDT) Only the most recent of2 resultswithin the time period is included. Color, UA Yellow 07/12/2024 8:16 PM EDT [facility] Clarity, UA Turbid(A) Clear 07/12/2024 8:16 PM EDT [facility] Specific [place], UA 1.042(H) 1.005 - 1.030 07/12/2024 8:16 PM EDT [facility] pH, UA 5.5(L) 6.0 - 8.0 07/12/2024 8:16 PM EDT [facility] Leukocytes, UA Negative Negative 07/12/2024 8:16 PM EDT [facility] Nitrite, UA Negative Negative 07/12/2024 8:16 PM EDT [facility] Protein, UA 1+(A) Negative 07/12/2024 8:16 PM EDT [facility] Glucose, UA Normal Normal 07/12/2024 8:16 PM EDT [facility] Ketones, UA Trace(A) Negative 07/12/2024 8:16 PM EDT [facility] Bilirubin, UA Negative Negative 07/12/2024 8:16 PM EDT [facility] Blood, UA 1+(A) Negative 07/12/2024 8:16 PM EDT [facility] Urobilinogen, UA 3 mg/dL(A) Normal 07/12/2024 8:16 PM EDT [facility] Specimen Source Urine, [place] 07/12/2024 8:16 PM EDT [facility] Urine URINE SPECIMEN COLLECTION, CATHETERIZED / Unknown 07/12/2024 7:47 PM EDT 07/12/2024 8:07 PM EDT Sally Ribera JOB COACH URINE ORDERABLES Final Result Performing Organization Address City/State/[facility] Co de Phone Number [facility] [address] [place] [address] * (ABNORMAL) Urinalysis Microscopic Only (07/12/2024 7:47 PM EDT) Only the most recent of2 resultswithin the time period is included. WBC, UA 3-5(A) None Seen /HPF 07/12/2024 8:22 PM EDT [facility] RBC, UA 0-2(A) None Seen /HPF 07/12/2024 8:22 PM EDT [facility] Bacteria, UA 1+(A) None Seen, Trace 07/12/2024 8:22 PM EDT [facility] Mucus 1+(A) None Seen 07/12/2024 8:22 PM EDT [facility] SQUAMOUS EPITHELIAL 0-2(A) None Seen /HPF 07/12/2024 8:22 PM EDT [facility] Urine URINE SPECIMEN COLLECTION, CATHETERIZED / Unknown 07/12/2024 7:47 PM EDT 07/12/2024 8:07 PM EDT Sally Ribera JOB COACH URINE ORDERABLES Final Result [facility] 1 [place] [address], [facility] [phone] * ABO/Rh (07/12/2024 5:22 PM EDT) ABO/Rh A POSITIVE 07/12/2024 6:38 PM EDT [facility] ([place] Blood Venipuncture / Unknown 07/12/2024 5:22 PM EDT 07/12/2024 5:27 PM EDT Result [facility] Sallyrosa Ribera [facility] TEST ORDERABLES Final Result Performing Organization Address City/[facility]/ZIP Co de Phone Number [facility] ([place]) 1 [place] [address], [facility] [phone] * Direct Jin/BAUDILIO (07/12/2024 5:22 PM EDT) BAUDILIO, Polyspecific Negative 024 2:14 PM EDT [facility] [place] Blood Venipuncture / Unknown 07/12/2024 5:22 PM EDT 07/13/2024 2:17 PM EDT Result [facility] Lico Rogers MD [facility]OD B[facility] TEST ORDERABLES Final Result Performing Organization Address City/[facility]/ZIP Co de Phone Number [facility] ([place] 1 [place] [address], [facility] [phone] * Antibody Screen (07/12/2024 5:22 PM EDT) Antibody Screen Negative 07/12/2024 6:39 PM EDT [facility] [place] Blood Venipuncture / Unknown 07/12/2024 5:22 PM EDT 07/12/2024 5:27 PM EDT Result [facility] Sally Ribera APRN [facility] BLOOD BANK TEST ORDERABLES Final Result [facility] [place] 1 [facility] [place] [id number], [facility] [phone] * CT brain without IV contrast (07/12/2024 [...] dictated by Trino Nguyen M.D. Sally Ribera [facility] CT ORDERABLES Final Result * CT chest [...] interpreted, and dictated by Trino Nguyen M.D. us Sally Ribera APRN IMG CT ORDERABLES Final Result * SARS-COV2/RT-PCR (07/12/2024 4:47 PM EDT) Only the most recent of2 resultswithin the time period is included. SARS-COV2/RT-P CR Negative Negative DEVICE ID9 07/12/2024 5:33 PM EDT [facility] Nasopharyngeal NASOPHARYNGEAL SWAB / Unknown 07/12/2024 4:47 PM EDT 07/12/2024 4:48 PM EDT Narrative [facility] - 07/12/2024 5:33 PM EDT Testing [...] performed according to the current CDC recommendations. Sally Ribera APRN MICROBIOLOGY - GENERAL ORDERAB LES Final Result Performing Organization Address [facility]/ZIP Co de Phone Number [facility] [address] [phone] * Peripheral Smear Path Review (07/12/2024 4:46 PM EDT) Pathologist Review See scanned Pathology Report 07/18/2024 10:11 AM EDT [facility] Blood Venipuncture / Unknown 07/12/2024 4:46 PM EDT 07/12/2024 4:47 PM EDT Sally Ribera APRN LAB BLOOD ORDERABLES Final Res ult Performing Organization Address City/[facility]/ZIP Co de Phone Number [facility] [address] [phone] * (ABNORMAL) Manual Differential (07/12/2024 4:46 PM EDT) Total Counted 100 07/12/2024 6:04 PM EDT [facility] % Neutros (manual) 64 50 - 65 % 07/12/2024 6:04 PM EDT [facility] % Lymphs (manual) 21(L) 24 - 44 % 07/12/2024 6:04 PM EDT [facility] % Monos (manual) 7(H) 4 - 5 % 07/12/20 6:04 PM EDT [facility] % Metamyelo (manual) 3(H) 0 - 1 % 07/12/2024 6:04 PM EDT [facility] % Myelo (manual) 5 % 07/12/20 6:04 PM EDT [facility] RBC Morphology abnormal( A) Normal 07/12/2024 6:04 PM EDT [facility] Platelet Estimate Decreased (A) Adequate 07/12/2024 6:04 PM EDT [facility] Anisocytosis 1+ 07/12/2024 6:04 PM EDT [facility] Macrocytes 1+ 07/12/2024 6:04 PM EDT [facility] Ovalocytes 1+ 07/12/2024 6:04 PM EDT [facility] Rouleaux 1+ 07/12/2024 6:04 PM EDT [facility] Raw nRBC Count 1(H) 0 - 0 07/12/2024 6:04 PM EDT [facility] ANC# 3.58 K/??L 07/12/2024 6:04 PM EDT [facility] Blood Venipuncture / Unknown 07/12/2024 4:46 PM EDT 07/12/2024 4:47 PM EDT us Sally Ribera JOB COACH LAB BLOOD ORDERABLES Final Res ult [facility] [address] [phone] * Lactic Acid with reflex (SJ) (07/12/2024 4:46 PM EDT) Only the most recent of2 resultswithin the time period is included. Lactic Acid Level (mmol/L) 1.7 0.4 - 2.0 mmol/L 07/12/2024 5:15 PM EDT [facility] Comment:If a Lactic Acid Lev el with Reflex if Indicated result is greater than 2.0, a Lactic Acid Level will be ordered to be collected 2 hours after the original collection time. Blood Venipuncture / Unknown 07/12/2024 4:46 PM EDT 07/12/2024 4:48 PM EDT us Sally Ribera JOB COACH LAB BLOOD ORDERABLES Final Res ult Performing Organization Address [facility] Co de Phone Number [facility] [address] [phone] * Procalcitonin (07/12/2024 4:46 PM EDT) Procalcitonin 0.39 <=0.50 ng/mL 07/12/2024 8:30 PM EDT [facility] Comment: Sepsis comment <0.5 Antibiotics Discouraged [...] PM EDT 07/12/2024 4:47 PM EDT us Gagandeep Naranjo DO LAB BLOOD ORDERABLES Final Res ult Performing Organization Address [facility]/ZIP Co de Phone Number [facility] [address] [phone] * Lipase (07/12/2024 4:46 PM EDT) Only the most recent of2 resultswithin the time period is included. Lipase 20 13 - 75 U/L 07/12/2024 5:15 PM EDT [facility] Blood Venipuncture / Unknown 07/12/2024 4:46 PM EDT 07/12/2024 4:47 PM EDT us Sally Ribera APRN LAB BLOOD ORDERABLES Final Res ult Performing Organization Address City/[facility]/ZIP Co de Phone Number [facility] [address] [phone] * (ABNORMAL) Vitamin B12 (07/12/2024 4:46 PM EDT) Vitamin B12 2,764(H) 193 - 986 pg/mL 07/12/2024 9:46 PM EDT [facility] Blood Venipuncture / Unknown 07/12/2024 4:46 PM EDT 07/12/2024 4:47 PM EDT us Rupert Betancourt MD LAB BLOOD ORDERABLES Final Res ult Performing Organization Address City/[facility]/ZIP Co de Phone Number [facility] [address] [phone] * Blood Culture (07/12/2024 4:20 PM EDT) Only the most recent of2 resultswithin the time period is included. Result No growth in 5 days 07/17/2024 5:00 PM EDT [facility] Blood Venipuncture / Unknown 07/12/2024 4:20 PM EDT 07/12/2024 4:23 PM EDT us Sally Ribera JOB COACH MICROBIOLOGY - GENERAL ORDERAB LES Final Result [facility] 1 [place] [address], [facility] [phone] * EKG-SCANNED (07/12/2024) Only the most recent of2 resultswithin the time period is included. Narrative 07/12/2024 Ordered by an unspecified provider. us Default Scanning Provider SCAN ORDERS Final Result * (ABNORMAL) Urine Culture (07/04/2024 8:02 PM EDT) Result 10-100,000 CFU Klebsiella pneumoniae(A) 07/06/2024 9:26 AM EDT [facility] Urine URINE SPECIMEN COLLECTION, CLEAN CATCH [...] MICROBIOLOGY - GENERAL ORDERABL ES Final Result [facility] [address] [phone] * CT ABDOMEN/PELVIS WITH IV CONTRAST (07/04/2024 [...] is seen throughout the spine. Procedure Note Rosa Crabtree MD - 07/04/2024 CT SCAN OF [...] by Jaswant Lopez PA-C Cuca Barajas MD [facility] [place] ORDERABLES Final Result * XR chest [...] Electrophoresis Bill(SENDOUT) (06/13/2024 3:45 PM EDT) Pathologist [facility] [employer] Electrophoresis Bill Billed 06/17/2024 8:41 PM EDT [employer] Comment: Performed By: [employer] [address] [place] [address] Security Expert: Parker Rangel MD, PhD CLIA Number: [id number] Blood ENTIRE RIGHT UPPER ARM / Unknown Venipuncture / Unknown 06/13/2024 3:45 PM EDT 06/13/2024 3:55 PM EDT Caleb Pacheco MD LAB BLOOD ORDERABLES Final Res ult [employer] [address] [place] [address], [facility] [phone] * (ABNORMAL) Protein Electrophoresis w Rflx to RALPH(SENDOUT) (06/13/2024 3:45 PM EDT) Pathologist [facility] Total Protein, Serum 7.4 6.3 - 8.2 g/dL 06/17/2024 8:41 PM EDT [employer] Albumin 2.35(L) 3.75 - 5.01 g/dL 06/17/2024 8:41 PM EDT [employer] Alpha 1 Globulin 0.35 0.19 - 0.46 g/dL 06/17/2024 8:41 PM EDT [facility] Alpha 2 Globulin 0.67 0.48 - 1.05 g/dL 06/17/2024 8:41 PM EDT [facility] Beta Globulin 3.89(H) 0.48 - 1.10 g/dL 06/17/2024 8:41 PM EDT [facility] Gamma 0.15(L) 0.62 - 1.51 g/dL 06/17/2024 8:41 PM EDT [facility] Immunofixation Reflex RALPH Done 06/17/2024 8:41 PM EDT [facility] Monoclonal Protein 3.41(H) <=0.00 g/dL 06/17/2024 8:41 PM EDT [facility] SPEP/RALPH Interpretation See Note 06/17/2024 8:41 PM EDT [facility] Comment: Monoclonal spike in the beta region. The quantitation may include complement and/or transferrin components. Measurement of total Immunoglobulin (IgA, IgG, or IgM) can be used for the quantitation of the monoclonal spike instead. Hypogammaglobulinemia. RALPH gel pattern shows an IgA type lambda monoclonal protein with an additional faint band in lambda. EER Serum Protein Electrophoresis Reflex See Note 06/17/2024 8:41 PM EDT [facility] Comment: Authorized individuals can access the [facility] Enhanced Report using the following link: [email or web address] Performed By: [employer] [address] [place] [address] Security Expert: Parker aRngel MD, PhD CLIA Number: [id number] Blood ENTIRE RIGHT UPPER ARM / Unknown Venipuncture / Unknown 06/13/2024 3:45 PM EDT 06/13/2024 3:55 PM EDT us Caleb Pacheco MD LAB BLOOD ORDERABLES Final Res ult [facility] [employer] [address] [place] [address], [facility] [phone] * (ABNORMAL) [place]-Lambda Quant FLC with Ratio(SENDOUT) (06/13/2024 3:45 PM EDT) [place] Qnt Free Light Chains 1.38(L) 3.30 - 19.40 mg/L 06/15/2024 11:28 PM EDT [employer] Comment: INTERPRETIVE INFORMATION: [place] Qnt Free Light Chains Undetected antigen excess is a rare event but cannot be excluded. Free light chain results should always be interpreted in conjunction with other clinical and laboratory findings. [place] Qnt Free Light Chains 333.51(H) 5.71 - 26.30 mg/L 06/15/2024 11:28 PM EDT [employer] Comment: INTERPRETIVE INFORMATION: [place] Qnt Free Light Chains Undetected antigen excess is a rare event but cannot be excluded. Free light chain results should always be interpreted in conjunction with other clinical and laboratory findings. [place]/Lambda Free Light Chain Ratio <0.01(L) 0.26 - 1.65 06/15/2024 11:28 PM EDT [employer] Comment: Performed By: [facility] [address] [place] [address] Security Expert: Parker Rangel MD, PhD CLIA Number: [id number] Blood ENTIRE RIGHT UPPER ARM / Unknown Venipuncture / Unknown 06/13/2024 3:45 PM EDT 06/13/2024 3:55 PM EDT Caleb Pacheco MD LAB BLOOD ORDERABLES Final Res ult [facility] [address] [place] [address], [facility] [phone] * (ABNORMAL) Immunoglobulin M(SENDOUT) (06/13/2024 3:45 PM EDT) Pathologist [facility] Immunoglobulin M 14(L) 35 - 263 mg/dL 06/17/2024 8:24 PM EDT [employer] Comment: Performed By: [facility] [address] [place] [address] Security Expert: Parker Rangel MD, PhD CLIA Number: [id number] Blood ENTIRE RIGHT UPPER ARM / Unknown Venipuncture / Unknown 06/13/2024 3:45 PM EDT 06/13/2024 3:55 PM EDT Result [facility] Caleb Pacheco MD LAB BLOOD ORDERABLES Final Res ult Performing Organization Address [facility] de Phone Number [address] [phone] * (ABNORMAL) Immunoglobulin G(SENDOUT) (06/13/2024 3:45 PM EDT) Pathologist [facility] Immunoglobulin G 107(L) 768 - 1632 mg/dL 06/17/2024 8:23 PM EDT [facility] [employer] Comment: Performed By: [facility] [address] [place] [address] Security Expert: Parker Rangel MD, PhD CLIA Number: [id number] Blood ENTIRE RIGHT UPPER ARM / Unknown Venipuncture / Unknown 06/13/2024 3:45 PM EDT 06/13/2024 3:55 PM EDT Result [facility] Caleb Pacheco MD LAB BLOOD ORDERABLES Final Res ult Performing Organization Address [facility] de Phone Number [employer] [address] [place] [address] * (ABNORMAL) Immunoglobulin A(SENDOUT) (06/13/2024 3:45 PM EDT) Pathologist [facility] Immunoglobulin A 3081(H) 68 - 408 mg/dL 06/17/2024 8:24 PM EDT [employer] Comment: Performed By: [facility] [address] [place] [address] Security Expert: Parker Rangel MD, PhD CLIA Number: [id number] Blood ENTIRE RIGHT UPPER ARM / Unknown Venipuncture / Unknown 06/13/2024 3:45 PM EDT 06/13/2024 3:55 PM EDT Caleb Pacheco MD LAB BLOOD ORDERABLES Final Res ult Performing Organization Address [facility] de Phone Number [facility] [employer] [address] [place] [address] * (ABNORMAL) BMP (Onc - Blazer, BETTINA) (06/06/2024 11:11 AM EDT) Only the most recent of2 resultswithin the time period is included. Sodium 141 136 - 146 meq/L 06/06/2024 [...] MD LAB BLOOD ORDERABLES Final Res ult [facility] [address] [place] [address], [facility] [phone] * MM digital mammo screen bilateral (10/14/2023 [...] the next mammogram. At our facility, a lower [place] marker is positioned over a visible skin [...] cancer. COMPARISON STUDY: ??2021, 2020, 2018 from [facility] FINDINGS: Craniocaudal and mediolateral oblique images of both breasts were obtained. The breast tissue is almost entirely fatty. There is no evidence of dominant mass, architectural distortion, or suspicious calcifications. The mammogram was interpreted with the benefit of computer aided detection (CAD). Clifford [facility] MAMMOGRAPHY ORDERABLES F inal Result from Last 3 Months or Most Recently Relevant to Health Maintenance Insurance MEDICAID QMB [facility] MCR ADV DUAL COMPLETE [facility] DUAL COMPLETE MCR ADV Advance Directives For more information, please contact: [phone] * Full Code (Latest Code Status on File) Date Activated Date Inactivated Comments 07/12/2024 7:14 PM 07/20/2024 1:09 PM Care Teams Round Up Ring Hand Relationship Specialty Start Date End Date Clifford Newell PA [address] [place] [address] [place] [address] PCP - General Physician Maintenance Worker House Trailer 10/14/23
--- OUTSIDE RECORDS SUMMARY | 2024-08-03 16:56 | XMS_ITS | Encounter Summary ---
Author Organization [facility] Address [address] [place] [address] Care Team Providers Care Manager Architecture Name Role Phone Clifford Newell Primary Care Provider + [phone] Reason for Visit * Reason Comments Altered Mental Status * Auth/Cert (Routine) Specialty Diagnoses / Procedures Referred By Contac t Referred To Contact Diagnoses Transient alteration of awareness Anemia Sepsis (HCC) [facility] [address] [place] [address] Phone: tel: fax: [facility] [address] [place] [address] Phone: tel: fax: Referral ID Status Reason Start Date Expiration Date Visits Re quested Visits Authorized [id number] 1 1 Encounter Details Date Type Department Care Team (Late st Contact Info) Description 07/12/2024 3:55 PM EDT - 07/20/2024 12:09 PM EDT Hospital Encounter [facility] [address] [place] [address] Facundo Ackerman MD [address] [place] [address] Rupert Pagan MD [address] [address] Chandra Jose MD [address] [facility] [place] [address] Sepsis (HCC) (Primary Dx); Transient alteration of awareness; Anemia; Sepsis, due to unspecified organism, unspecified whether acute organ dysfunction present (HCC); Anemia, unspecified type Discharge Disposition: [facility] Facility Social History Tobacco Use Types Packs/Day Years [...] living situation today? I have a [facility] place to live 07/12/2024 Think about [...] Do you speak a language other than [place] at [facility]? No 07/12/2024 Do you want help [...] on file documented as of this encounter Last Filed Vital Signs Vital Sign Reading Time Taken Comments Blood Pressure 145/72 07/20/2024 4:00 AM EDT Pulse 78 07/20/2024 4:00 AM EDT Temperature 36.8 ??C (98.2 ??F) 07/20/2024 4:00 AM ED T Respiratory Rate 20 07/20/2024 4:00 AM EDT Oxygen Saturation 99% 07/19/2024 8:00 PM EDT Inhaled Oxygen Concentration - - Weight 98 kg (216 lb) 07/12/2024 3:57 PM EDT Height 177.8 cm (5' 10 ) 07/15/2024 12:28 PM EDT Body Mass Index 30.99 07/12/2024 3:57 PM EDT documented in this encounter Discharge Summaries * Chandra Jose MD - 07/20/2024 9:14 AM EDT PCP: MARILEE Muñoz Date of Admission: 07/12/2024 Date of Discharge 07/20/2024 Reason for Hospitalization Asher Daniel is a 64 y.o. female with PMHx of multiple myeloma which she is getting chemotherapy for biweekly and missed her last dose was brought in by her son with increasing confusion and altered mental status. Patient is intermittently confused. She has had multiple falls at home andhas an abrasion to right forehead. Pt is confused and able to answer some questions but most answers don't make sense. She has some lower abd discomfort. Consultations obtained -Physical and occupational therapy services -Case management -Oncology hematology -Gastroenterology -Neurology services -Infectious disease services Procedures performed -Bone marrow biopsy aspiration per oncology ordered Hospital course/follow-up 07/13 please note this is my first visit with this patient, she is somewhat somnolent at the time of my interaction no family in the room, marked anemia noted platelets also on the low side imaging studies reviewed patient appears quite sick at the moment H&P extensively reviewed as well 07/14 I have discussed extensively yesterday with the son over the phone and updated him about planof care, patient is quite sick, she is rather in critical condition, this morning she is still somnolent although easily arousable, low- grade fever overnight noted also received some Dilaudid, this morning I called and discussed with the nursing staff extensively as well, ammonia level slightly trending down after I initiated lactulose, prognosis not great, did receive blood transfusions, oncology hematology already on board here, due to her somnolent I would like to rule out hypercarbia therefore I will check arterial blood gas this was also communicated to the nursing staff, if patient deter iorates low threshold to transfer her to ICU critical illness unfortunately continues prognosis notgreat 07/15 patient seen and evaluated, remains quite sick overall, she is somnolent, unable to participate in history with me, son present in the room today, had long discussion with him today at bedside previously discussed with him extensively over the phone multiple times, patient had spiked a fever Tmax close 202 ??F last night, cultures are negative, she is on antibiotic therapy at present time, due to fever I will consult infectious disease services, patient has been placed on high-dose dexamethasone under the guidance of oncology hematology for underlying multiple myeloma, seen by gastroenterology and neurology services, rifaximin and lactulose has been added, ammonia level worsening, seems like patient unable to take oral medications on a consistent basis, I believe her prognosis not great at this time, plan discussed with the son extensively at bedside patient resisted full code 07/16 patient had good night seen and evaluated son at bedside mentation a lot better more awake follows some commands fever resolving antibiotics enhanced antiviral added sodium 149 potassium low son is happy with her progress patient's platelets hemoglobin remains low secondary to multiple myeloma, ammonia levels markedly improved after receiving rifaximin as well as lactulose 07/17 patient seen and evaluated, resting, yesterday late afternoon events noted when she went intotachyarrhythmia, now on Cardizem drip, Lovenox added per on- call physician, more awake resting communicating son at bedside overall happy with her progress, no labs out for today at the time of this dictation potassium was low magnesium normal, she remains on antivirals, I discussed with infectious disease yesterday multiple ongoing issues noted at present time although mentation fraga she is improving slowly 07/18 Patient was seen and examined today. She was much more alert and awake today and was able to answer questions properly. She feels overall better. She continues to have some back pain. Patient'sson in the room but unfortunately he slept throughout my encounter today did not wake up, now patient going for bone marrow studies per oncology, hemoglobin worse, platelet worse, full dose Lovenox on board which will be very problematic with worsening cytopenias, I worry that she is not toleratingfull dose blood thinners at this point, therefore I will hold it for now given risks in my opinion are much more than benefit, patient's ammonia levels improving, discussed with the case management in regards to discharge planning discussed with infectious disease as well 07/19 patient underwent bone marrow biopsy yesterday results pending, seen and evaluated this morning, laying on the bed awake follows command, son in the room but did not wake up at the time of my interaction, patient remains on antiviral therapy per infectious disease, oncology hematology on board, case management following for discharge planning at this time, patient not the best candidate foranticoagulation given risks are much more than benefit given marked anemia and marked thrombocytopenia 07/20 patient awake and resting at the time of my encounter nursing in the room, case management onboard, arrangements in place for rehabilitation facility discussed with oncology hematology they recommend outpatient appointment with them, I discussed with oncology hematology they agree that continuation of full dose anticoagulation is not ideal under the circumstances with anemia and thrombocytopenia, according to oncologist very risky to reinitiate anticoagulation as long as platelets are less than 50,000 Diagnosis: -Sepsis in an immunocompromise host, present upon admission, source appears to be genitourinary -Suspected UTI/acute cystitis -Acute metabolic encephalopathy, now improving, concern for encephalitis, antiviral added per oncology -Markedly elevated ammonia level, now improving, seen by gastroenterology -Marked symptomatic anemia with thrombocytopenia in the setting of known multiple myeloma-status post CT-guided bone marrow aspiration and biopsy per interventional radiology dated 07/18 -Atrial fibrillation with rapid ventricular response -Documented history of DVT/PE -chronically on xarelto, now Xarelto has been stopped given thrombocytopenia -Essential hypertension-History of peripheral neuropathy -Electrolyte imbalance with hypernatremia and hypokalemia Plan 07/13 continue broad-spectrum antibiotics, follow-up on pending cultures, continue gentle IV fluid support, monitor volume status closely, continue to monitor hemoglobin hematocrit, transfuse blood as needed, monitor platelets, watch mentation closely, continue subset of home meds as indicated, monitor labs closely, PT OT roxy, plan discussed with the patient but she is poorly cognizant of the situation, Complex medical issues with acute on chronic multiple co morbidities requiring multidisciplinary management. Holding Xarelto in the setting of marked anemia, oncology hematology consultation,in regards to elevated ammonia level adding lactulose and will monitor ammonia levels closely at this point, plan discussed with the nursing staff this morning 07/14 I will continue lactulose, continue to monitor ammonia levels on daily basis, I would like tocheck ABG to rule out hypercarbia as etiology of somnolence and mentation related issues, increase activity with physical therapy as much as possible continue lactulose at this point, continue to hold Xarelto up until hemoglobin improves further, follow oncology hematology recommendations, prognosis not great, discussed with the nursing extensively yesterday extensively discussed with the son as well updated him about plan of care and patient's poor prognosis, I have spent 32 minutes of critical care time taking care of this patient today 07/15 I will continue antibiotic therapy, enhancing coverage at this time given worsening fever, consulting infectious disease for their advice and input given patient's immunocompromise status, watch mentation closely, continue rifaximin and lactulose if she is able to take it, continue steroid added per oncology hematology, watch mentation closely, oncology thinks her prognosis is not great dueto advanced multiple myeloma, plan discussed with the patient's son extensively at bedside, discussed with the nursing staff as well 07/16 monitor electrolytes and replace as needed, continue antibiotics and antiviral per infectiousdisease, monitor labs closely monitor CBC on daily basis increase activity with physical therapy plan of care extensively discussed with son at bedside yet again, Complex medical issues with acute onchronic multiple co morbidities requiring multidisciplinary management. 07/17 continue gentle IV fluids, Lovenox added, needs to be cautious with worsening anemia worsening thrombocytopenia on full dose anticoagulation therapy will monitor CBC closely, continue antibiotics antivirals under the guidance of infectious disease services, I discussed with ID services yesterday, obtaining transthoracic echo, check TSH, cardiology consultation requested and pending, watch mentation plan extensively discussed with the son at bedside yet again 07/18 worsening CBC on full dose Lovenox, holding Lovenox given risk of more than the benefit, bonemarrow exam ordered per oncology, watch mentation closely markedly improved, antibiotics and antiviral deferred to infectious disease services, watch mentation closely, multiple issues noted discussed with the case management plan of care prognosis overall guarded 07/19 follow-up on bone marrow results, continue acyclovir under the guidance of infectious diseasewatch mentation closely increase activity with physical therapy patient need inpatient rehab case management on board plan of care discussed with the patient this morning 07/20 patient is discharging today order placed discussed with the nursing Per ID: oral valtrex 1g PO TID soon if she is tolerating PO meds ok. May consider a 14 day course empirically DCP: Post-acute facility has started a pre-cert. [facility] Your medication list START taking these medications Instructions Comments Quantity Refills lactulose 20 gram/30 mL solution Commonly known as: CHRONULAC Take 30 mLs (20 g total) by mouth daily for 5 days. 150 mL 0 metoprolol tartrate 25 MG tablet Commonly known as: LOPRESSOR Take 0.5 tablets (12.5 mg total) by mouth 2 (two) times daily. 0 rifAXIMin 550 mg Tab Commonly known as: XIFAXAN Take 1 tablet (550 mg total) by mouth 2 (two) times daily for 30 days. 60 tablet 0 valACYclovir 1000 MG tablet Commonly known as: VALTREX Take 1 tablet (1,000 mg total) by mouth 3 (three) times daily for 9 days. 0 CHANGE how you take these medications Instructions Comments Quantity Refills busPIRone 15 MG tablet Commonly known as: BUSPAR What changed: Another medication with the same name was removed. Continue taking this medication, and follow the directions you see here. Take 1 tablet (15 mg total) by mouth 3 (three) times daily. 0 cyanocobalamin 1000 MCG tablet What changed: See the new instructions. Another medication with the same name was removed. Continue taking this medication, and follow the directions you see here. Take 1 tablet (1,000 mcg total) by mouth daily. 0 DULoxetine 30 MG capsule Commonly known as: CYMBALTA What changed: Another medication with the same name was removed. Continue taking this medication, and follow the directions you see here. Take 1 capsule (30 mg total) by mouth daily. 30 tablet 5 ergocalciferol 1,250 mcg (50,000 unit) capsule Commonly known as: DRISDOL What changed: Another medication with the same name was removed. Continue taking this medication, and follow the directions you see here. Take 1 capsule (50,000 Units total) by mouth once a week. 4 capsule 0 gabapentin 100 MG capsule Commonly known as: NEURONTIN What changed: medication strength how much to take Another medication with the same name was removed. Continue taking this medication, and follow the directions you see here. Take 1 capsule (100 mg total) by mouth 3 (three) times daily for 2 days. Max Daily Amount: 300 mg 6 capsule 0 meclizine 25 mg tablet Commonly known as: ANTIVERT What changed: Another medication with the same name was removed. Continue taking this medication, and follow the directions you see here. Take 1 tablet (25 mg total) by mouth 4 (four) times daily as needed. 60 tablet 5 simvastatin 10 MG tablet Commonly known as: ZOCOR What changed: Another medication with the same name was removed. Continue taking this medication, and follow the directions you see here. Take 1 tablet (10 mg total) by mouth nightly. 0 CONTINUE taking these medications Instructions Comments Quantity Refills oxyCODONE 10 MG tablet Commonly known as: ROXICODONE Take 1 tablet (10 mg total) by mouth every 4 (four) hours as needed (Pain). Max Daily Amount: 60 mg 4 tablet 0 Pomalyst 1 mg Cap Generic drug: pomalidomide Take 1 capsule (1 mg total) by mouth daily. 21 capsule 0 STOP taking these medications albuterol 90 mcg/actuation inhaler aspirin 81 MG EC tablet cetirizine 10 MG tablet Commonly known as: ZyrTEC clonazePAM 0.5 MG tablet Commonly known as: KlonoPIN metoprolol succinate 25 MG 24 hr tablet Commonly known as: TOPROL-XL multivitamin per tablet nitrofurantoin (macrocrystal-monohydrate) 100 MG capsule Commonly known as: MACROBID ondansetron 4 MG disintegrating tablet Commonly known as: ZOFRAN-ODT PARoxetine 30 MG tablet Commonly known as: PAXIL potassium chloride 20 MEQ tablet Commonly known as: KLOR-CON promethazine 12.5 MG tablet Commonly known as: PHENERGAN rivaroxaban 20 mg tablet Commonly known as: XARELTO Where to Get Your Medications These medications were sent to [facility] [place], [place] - [address] [address], [facility] [address] DULoxetine 30 MG capsule ergocalciferol 1,250 mcg (50,000 unit) capsule gabapentin 100 MG capsule meclizine 25 mg tablet oxyCODONE 10 MG tablet You can get these medications from any pharmacy Bring a paper prescription for each of these medications Pomalyst 1 mg Cap Information about where to get these medications is not yet available Ask your nurse or doctor about these medications busPIRone 15 MG tablet cyanocobalamin 1000 MCG tablet lactulose 20 gram/30 mL solution metoprolol tartrate 25 MG tablet rifAXIMin 550 mg Tab simvastatin 10 MG tablet valACYclovir 1000 MG tablet Discharge and follow-up instructions -Follow-up with PCP recommended within 1 week -Follow-up with oncology hematology per their recommendation to discuss bone marrow results -Activity as tolerated -Patient seen and examined on the day of discharge -Discharge was discussed with the patient Time Spend: Greater than 30 minutes spent coordinating the discharge process Please send a copy of this discharge summary to primary care physician Voice compressor operator portable technology ([employer]) is used for dictation of this note and sound-alike words might be erroneously placed despite reviewing the note for accuracy. Errors in dictation mayreflect use of voice recognition software and not all errors in compressor operator portable may have been detected prior to signing Hospital Medications Scheduled Meds: atorvastatin 10 mg oral Daily 10 mg at 07/19/2444 busPIRone 15 mg oral TID 15 mg at 07/19/24 220 cyanocobalamin 1,000 mcg oral Daily 1,000 mcg at 07/19/2445 DULoxetine 30 mg oral Daily 30 mg at 07/19/2444 ergocalciferol 50,000 Units oral Weekly 50,000 Units at 07/19/24 0955 gabapentin 100 mg oral TID 100 mg at 07/19/24 2200 lactulose 20 g oral Daily 20 g at 07/19/24 0946 metoprolol tartrate 12.5 mg feeding tube BID 12.5 mg at 07/19/242129 pomalidomide 1 capsule oral Daily rifAXIMin 550 mg oral BID 550 mg at 07/19/240 valACYclovir 1,000 mg oral TID 1,000 mg at 07/19/24 2100 Continuous Infusions: PRN Meds:. acetaminophen dextrose docusate sodium glucagon glucose hydrALAZINE HYDROmorphone ipratropium-albuteroL LORazepam meclizine melatonin ondansetron Or ondansetron PF oxyCODONE sodium chloride Physical Exam Vitals: 07/20/24 0400 BP: (!) 145/72 Pulse: 78 Resp: 20 Temp: 98.2 ??F (36.8 ??C) SpO2: General: NAD HEENT: Generally negative Neck: No JVD noted CVS: S1, S2, no S3 or S4 Lungs: Equal air entry symmetrical chest expansion GI: Soft, audible bowel sounds Neurological: Nonfocal Musculoskeletal: Generally unremarkable Skin: Warm without any noted rashes Labs & Imaging Recent Results (from the past 24 hour(s)) Basic Metabolic Panel Collection Time: 07/19/24 9:27 AM Result Value Ref Range Sodium 140 136 - 146 meq/L Potassium 3.4 (L) 3.5 - 5.1 meq/L Chloride 110 102 - 112 meq/L CO2 20 (L) 21 - 32 meq/L Anion Gap 13 9 - 20 BUN 11 7 - 22 mg/dL Creatinine 0.47 (L) 0.55 - 1.02 mg/dL BUN/Creatinine 23 (H) 8 - 20 Glucose 118 (H) 74 - 106 mg/dL Calcium 7.3 (L) 8.4 - 10.1 mg/dL Osmolality Calc 279.9 eGFR (mL/min/1.73m2) >60 >=60 mL/min/1.73m2 Potassium Collection Time: 07/19/24 9:27 AM Result Value Ref Range Potassium 3.4 (L) 3.5 - 5.1 meq/L CBC - Hemogram ([facility]) Collection Time: 07/20/24 8:17 AM Result Value Ref Range WBC 5.5 4.0 - 10.0 K/??L RBC 2.87 (L) 3.93 - 5.22 M/??L Hemoglobin 8.9 (L) 11.2 - 15.7 GM/DL Hematocrit 30.0 (L) 34.1 - 44.9 % MCV 105 (H) 79 - 95 fL MCH 31.0 25.6 - 32.2 pg MCHC 29.7 (L) 32.2 - 35.5 GM/DL RDW 16.6 (H) 11.7 - 14.4 % Platelets 40 (LL) 140 - 375 K/CU MM MPV 13.5 (H) 9.4 - 12.3 fL XR chest AP portable Result Date: 07/13/2024 PORTABLE CHEST HISTORY: Mental status change for 2 days., Fall 2 days prior COMPARISON: 07/02/2024.FINDINGS: A single portable radiograph of the chest was performed. The heart is normal in size. There is a vascular congestion. There is decreased lung volume with atelectasis. There is no edema or infiltrate. The bony thorax appears intact. Underinflation with no acute process. Images reviewed, interpreted, dictated and electronically signed by Mert Knight MD Voice compressor operator portable technology ([employer]) is used for the dictation of this note and sound-alike words might be erroneously placed despite reviewing this note for accuracy. Errors in dictation may reflect use of voice recognition software and not all errors in transcripti on may have been detected prior to signing. CT brain without IV contrast Result Date: 07/12/[address] 07/12/2024 5:06 PM HISTORY: [...] are unremarkable. Skull is intact. No skull fracturesare evident. Innumerable lytic lesions scattered throughout the calvarium consistent with patient'sknown diagnosis of multiple myeloma. No pathologic fracture is evident. No acute intracranial process. Innumerable lytic lesions [...] study was performed with techniques to keep radiationdoses as low as reasonably achievable, (ALARA). Individualized [...] granulomatous disease exposure. ABDOMEN: The liver is homogenouswith no focal abnormality. The spleen is unremarkable. Stable left adrenal nodule. The pancreas is unremarkable. The kidneys are unremarkable, without evidence of mass or hydronephrosis. The aorta isnormal in caliber. There is no free fluid or adenopathy. Postsurgical changes to the stomach are noted. PELVIS: The GI tract demonstrates no obstruction. The appendix is normal. The urinary bladder is unremarkable. There is no free fluid, adenopathy, or inflammatory process. Genital organs are unremarkable. No findings to suggest ovarian torsion. BONES: No acute fractures. IMPRESSION: 1. No acuteabnormality identified in the chest/abdomen/pelvis. 2. Stable left adrenal nodule. 3. No definite evidence to suggest cholelithiasis on today's study. 4. No significant interval change in innumerablelytic lesions throughout the bones consistent with patient's known history of multiple myeloma. Images reviewed, interpreted, and dictated by Trino Nguyen M.D. CT chest abdomen pelvis with contrast Result Date: 07/12/[address] 07/12/2024 5:06 PM HISTORY: [...] are unremarkable. Skull is intact. No skull fracturesare evident. Innumerable lytic lesions scattered throughout the calvarium consistent with patient'sknown diagnosis of multiple myeloma. No pathologic fracture is evident. No acute intracranial process. Innumerable lytic lesions [...] study was performed with techniques to keep radiationdoses as low as reasonably achievable, (ALARA). Individualized [...] granulomatous disease exposure. ABDOMEN: The liver is homogenouswith no focal abnormality. The spleen is unremarkable. Stable left adrenal nodule. The pancreas is unremarkable. The kidneys are unremarkable, without evidence of mass or hydronephrosis. The aorta isnormal in caliber. There is no free fluid or adenopathy. Postsurgical changes to the stomach are noted. PELVIS: The GI tract demonstrates no obstruction. The appendix is normal. The urinary bladder is unremarkable. There is no free fluid, adenopathy, or inflammatory process. Genital organs are unremarkable. No findings to suggest ovarian torsion. BONES: No acute fractures. IMPRESSION: 1. No acuteabnormality identified in the chest/abdomen/pelvis. 2. Stable left adrenal nodule. 3. No definite evidence to suggest cholelithiasis on today's study. 4. No significant interval change in innumerablelytic lesions throughout the bones consistent with patient's known history of multiple myeloma. Images reviewed, interpreted, and dictated by Trino Nguyen M.D. CT ABDOMEN/PELVIS WITH IV CONTRAST Result Date: 07/04/2024 CT SCAN OF THE ABDOMEN AND [...] ABDOMEN: There is mild bibasilar atelectasis. The heartis normal in size. The liver is homogenous with no focal abnormality. There may be stones within the gallbladder. The spleen is unremarkable. There is a nonspecific 10 mm left adrenal nodule, new when compared to prior. The pancreas is unremarkable. The kidneys are unremarkable, without evidence ofmass or hydronephrosis. The aorta is normal in [...] disc disease is seen throughout the spine. Possible cholelithiasis. Otherwise, no acute process. Nonspecific left adrenal nodule. Numerous lytic lesions throughout the bones consistent with patient's known history of multiple myeloma. Images reviewed, interpreted, and dictated by Dr. Jaleesa Crabtree. Transcribed by Jaswant Lopez PA-C XR chest 1 view portable / bedside Result Date: 07/04/2024 PORTABLE CHEST. 07/04/2024 12:31 PM HISTORY: Weakness, multiple myeloma, nausea and vomiting. COMPARISON: January 2018. FINDINGS: The cardiac silhouette is normal in size. The mediastinum is unremarkable. The lungs are clear. There is no pneumothorax. No acute cardiopulmonary process. Images reviewed, interpreted, and dictated by Dr. Mert Knight. Transcribed by Silvia Pablo PA-C. Electronically signed by: Chandra Jose MD, 07/20/2024 at 8:13 AM EDT documented in this encounter Medications at Time of Discharge busPIRone (BUSPAR) 15 MG tablet Take 1 tablet (15 mg total) by mouth 3 (three) times daily. 0 07/19/2024 07/19/2025 cyanocobalamin 1000 MCG tablet Take 1 tablet (1,000 mcg total) by mouth daily. 0 07/20/2024 07/20/2025 DULoxetine (CYMBALTA) 30 MG capsule Take 1 capsule (30 mg total) by mouth daily. 30 tablet 5 07/19/2024 07/19/2025 ergocalciferol (DRISDOL) 1,250 mcg (50,000 unit) capsule Take 1 capsule (50,000 Units total) by mouth once a week. 4 capsule 07/19/2024 meclizine (ANTIVERT) 25 mg tablet Take 1 tablet (25 mg total) by mouth 4 (four) times daily as needed. 60 tablet 5 07/19/2024 metoprolol tartrate (LOPRESSOR) 25 MG tablet Take 0.5 tablets (12.5 mg total) by mouth 2 (two) times daily. 0 07/19/2024 07/19/2025 oxyCODONE (ROXICODONE) 10 MG tablet Take 1 tablet (10 mg total) by mouth every 4 (four) hours as needed (Pain). Max Daily Amount: 60 mg 4 tablet 07/19/2024 pomalidomide (Pomalyst) 1 mg cap Take 1 capsule (1 mg total) by mouth daily. 21 capsule 07/19/2024 rifAXIMin (XIFAXAN) 550 mg tab Take 1 tablet (550 mg total) by mouth 2 (two) times daily for 30 days. 60 tablet 07/19/2024 08/18/2024 simvastatin (ZOCOR) 10 MG tablet Take 1 tablet (10 mg total) by mouth nightly. 0 07/19/2024 gabapentin (NEURONTIN) 100 MG capsule Take 1 capsule (100 mg total) by mouth 3 (three) times daily for 2 days. Max Daily Amount: 300 mg 6 capsule 07/19/2024 07/21/2024 lactulose (CHRONULAC) 20 gram/30 mL solution Take 30 mLs (20 g total) by mouth daily for 5 days. 150 mL 07/20/2024 07/25/2024 valACYclovir (VALTREX) 1000 MG tablet Take 1 tablet (1,000 mg total) by mouth 3 (three) times daily for 9 days. 0 07/19/2024 07/28/2024 documented as of this encounter Progress Notes * Chandra Jose MD - 07/20/2024 9:12 AM EDT PCP: MARILEE Muñoz Date of Admission: 07/12/2024 Date of Discharge 07/20/2024 Reason for Hospitalization Asher Daniel is a 64 y.o. female with PMHx of multiple myeloma which she is getting chemotherapy for biweekly and missed her last dose was brought in by her son with increasing confusion and altered mental status. Patient is intermittently confused. She has had multiple falls at home andhas an abrasion to right forehead. Pt is confused and able to answer some questions but most answers don't make sense. She has some lower abd discomfort. Consultations obtained -Physical and occupational therapy services -Case management -Oncology hematology -Gastroenterology -Neurology services -Infectious disease services Procedures performed -Bone marrow biopsy aspiration per oncology ordered Hospital course/follow-up 07/13 please note this is my first visit with this patient, she is somewhat somnolent at the time of my interaction no family in the room, marked anemia noted platelets also on the low side imaging studies reviewed patient appears quite sick at the moment H&P extensively reviewed as well 07/14 I have discussed extensively yesterday with the son over the phone and updated him about planof care, patient is quite sick, she is rather in critical condition, this morning she is still somnolent although easily arousable, low- grade fever overnight noted also received some Dilaudid, this morning I called and discussed with the nursing staff extensively as well, ammonia level slightly trending down after I initiated lactulose, prognosis not great, did receive blood transfusions, oncology hematology already on board here, due to her somnolent I would like to rule out hypercarbia therefore I will check arterial blood gas this was also communicated to the nursing staff, if patient deter iorates low threshold to transfer her to ICU critical illness unfortunately continues prognosis notgreat 07/15 patient seen and evaluated, remains quite sick overall, she is somnolent, unable to participate in history with me, son present in the room today, had long discussion with him today at bedside previously discussed with him extensively over the phone multiple times, patient had spiked a fever Tmax close 202 ??F last night, cultures are negative, she is on antibiotic therapy at present time, due to fever I will consult infectious disease services, patient has been placed on high-dose dexamethasone under the guidance of oncology hematology for underlying multiple myeloma, seen by gastroenterology and neurology services, rifaximin and lactulose has been added, ammonia level worsening, seems like patient unable to take oral medications on a consistent basis, I believe her prognosis not great at this time, plan discussed with the son extensively at bedside patient resisted full code 07/16 patient had good night seen and evaluated son at bedside mentation a lot better more awake follows some commands fever resolving antibiotics enhanced antiviral added sodium 149 potassium low son is happy with her progress patient's platelets hemoglobin remains low secondary to multiple myeloma, ammonia levels markedly improved after receiving rifaximin as well as lactulose 07/17 patient seen and evaluated, resting, yesterday late afternoon events noted when she went intotachyarrhythmia, now on Cardizem drip, Lovenox added per on- call physician, more awake resting communicating son at bedside overall happy with her progress, no labs out for today at the time of this dictation potassium was low magnesium normal, she remains on antivirals, I discussed with infectious disease yesterday multiple ongoing issues noted at present time although mentation fraga she is improving slowly 07/18 Patient was seen and examined today. She was much more alert and awake today and was able to answer questions properly. She feels overall better. She continues to have some back pain. Patient'sson in the room but unfortunately he slept throughout my encounter today did not wake up, now patient going for bone marrow studies per oncology, hemoglobin worse, platelet worse, full dose Lovenox on board which will be very problematic with worsening cytopenias, I worry that she is not toleratingfull dose blood thinners at this point, therefore I will hold it for now given risks in my opinion are much more than benefit, patient's ammonia levels improving, discussed with the case management in regards to discharge planning discussed with infectious disease as well 07/19 patient underwent bone marrow biopsy yesterday results pending, seen and evaluated this morning, laying on the bed awake follows command, son in the room but did not wake up at the time of my interaction, patient remains on antiviral therapy per infectious disease, oncology hematology on board, case management following for discharge planning at this time, patient not the best candidate foranticoagulation given risks are much more than benefit given marked anemia and marked thrombocytopenia 07/20 patient awake and resting at the time of my encounter nursing in the room, case management onboard, arrangements in place for rehabilitation facility discussed with oncology hematology they recommend outpatient appointment with them, I discussed with oncology hematology they agree that continuation of full dose anticoagulation is not ideal under the circumstances with anemia and thrombocytopenia, according to oncologist very risky to reinitiate anticoagulation as long as platelets are less than 50,000 Diagnosis: -Sepsis in an immunocompromise host, present upon admission, source appears to be genitourinary -Suspected UTI/acute cystitis -Acute metabolic encephalopathy, now improving, concern for encephalitis, antiviral added per oncology -Markedly elevated ammonia level, now improving, seen by gastroenterology -Marked symptomatic anemia with thrombocytopenia in the setting of known multiple myeloma-status post CT-guided bone marrow aspiration and biopsy per interventional radiology dated 07/18 -Atrial fibrillation with rapid ventricular response -Documented history of DVT/PE -chronically on xarelto, now Xarelto has been stopped given thrombocytopenia -Essential hypertension-History of peripheral neuropathy -Electrolyte imbalance with hypernatremia and hypokalemia Plan 07/13 continue broad-spectrum antibiotics, follow-up on pending cultures, continue gentle IV fluid support, monitor volume status closely, continue to monitor hemoglobin hematocrit, transfuse blood as needed, monitor platelets, watch mentation closely, continue subset of home meds as indicated, monitor labs closely, PT TYSON ramsey, plan discussed with the patient but she is poorly cognizant of the situation, Complex medical issues with acute on chronic multiple co morbidities requiring multidisciplinary management. Holding Xarelto in the setting of marked anemia, oncology hematology consultation,in regards to elevated ammonia level adding lactulose and will monitor ammonia levels closely at this point, plan discussed with the nursing staff this morning 07/14 I will continue lactulose, continue to monitor ammonia levels on daily basis, I would like tocheck ABG to rule out hypercarbia as etiology of somnolence and mentation related issues, increase activity with physical therapy as much as possible continue lactulose at this point, continue to hold Xarelto up until hemoglobin improves further, follow oncology hematology recommendations, prognosis not great, discussed with the nursing extensively yesterday extensively discussed with the son as well updated him about plan of care and patient's poor prognosis, I have spent 32 minutes of critical care time taking care of this patient today 07/15 I will continue antibiotic therapy, enhancing coverage at this time given worsening fever, consulting infectious disease for their advice and input given patient's immunocompromise status, watch mentation closely, continue rifaximin and lactulose if she is able to take it, continue steroid added per oncology hematology, watch mentation closely, oncology thinks her prognosis is not great dueto advanced multiple myeloma, plan discussed with the patient's son extensively at bedside, discussed with the nursing staff as well 07/16 monitor electrolytes and replace as needed, continue antibiotics and antiviral per infectiousdisease, monitor labs closely monitor CBC on daily basis increase activity with physical therapy plan of care extensively discussed with son at bedside yet again, Complex medical issues with acute onchronic multiple co morbidities requiring multidisciplinary management. 07/17 continue gentle IV fluids, Lovenox added, needs to be cautious with worsening anemia worsening thrombocytopenia on full dose anticoagulation therapy will monitor CBC closely, continue antibiotics antivirals under the guidance of infectious disease services, I discussed with ID services yesterday, obtaining transthoracic echo, check TSH, cardiology consultation requested and pending, watch mentation plan extensively discussed with the son at bedside yet again 07/18 worsening CBC on full dose Lovenox, holding Lovenox given risk of more than the benefit, bonemarrow exam ordered per oncology, watch mentation closely markedly improved, antibiotics and antiviral deferred to infectious disease services, watch mentation closely, multiple issues noted discussed with the case management plan of care prognosis overall guarded 07/19 follow-up on bone marrow results, continue acyclovir under the guidance of infectious diseasewatch mentation closely increase activity with physical therapy patient need inpatient rehab case management on board plan of care discussed with the patient this morning 07/20 patient is discharging today order placed discussed with the nursing Per ID: oral valtrex 1g PO TID soon if she is tolerating PO meds ok. May consider a 14 day course empirically DCP: Post-acute facility has started a pre-cert. Signature of [employer] Voice compressor operator portable technology ([employer]) is used for dictation of this note and sound-alike words might be erroneously placed despite reviewing the note for accuracy. Errors in dictation mayreflect use of voice recognition software and not all errors in compressor operator portable may have been detected prior to signing Hospital Medications Scheduled Meds: atorvastatin 10 mg oral Daily 10 mg at 07/19/24 0944 busPIRone 15 mg oral TID 15 mg at 07/19/24 2200 cyanocobalamin 1,000 mcg oral Daily 1,000 mcg at 07/19/24 0945 DULoxetine 30 mg oral Daily 30 mg at 07/19/24 0944 ergocalciferol 50,000 Units oral Weekly 50,000 Units at 07/19/24 0955 gabapentin 100 mg oral TID 100 mg at 07/19/24 2200 lactulose 20 g oral Daily 20 g at 07/19/24 0946 metoprolol tartrate 12.5 mg feeding tube BID 12.5 mg at 07/19/24 2130 pomalidomide 1 capsule oral Daily rifAXIMin 550 mg oral BID 550 mg at 07/19/24 2200 valACYclovir 1,000 mg oral TID 1,000 mg at 07/19/24 2100 Continuous Infusions: PRN Meds:. acetaminophen dextrose docusate sodium glucagon glucose hydrALAZINE HYDROmorphone ipratropium-albuteroL LORazepam meclizine melatonin ondansetron Or ondansetron PF oxyCODONE sodium chloride Physical Exam Vitals: 07/20/24 0400 BP: (!) 145/72 Pulse: 78 Resp: 20 Temp: 98.2 ??F (36.8 ??C) SpO2: General: NAD HEENT: Generally negative Neck: No JVD noted CVS: S1, S2, no S3 or S4 Lungs: Equal air entry symmetrical chest expansion GI: Soft, audible bowel sounds Neurological: Nonfocal Musculoskeletal: Generally unremarkable Skin: Warm without any noted rashes Labs & Imaging Recent Results (from the past 24 hour(s)) Basic Metabolic Panel Collection Time: 07/19/24 9:27 AM Result Value Ref Range Sodium 140 136 - 146 meq/L Potassium 3.4 (L) 3.5 - 5.1 meq/L Chloride 110 102 - 112 meq/L CO2 20 (L) 21 - 32 meq/L Anion Gap 13 9 - 20 BUN 11 7 - 22 mg/dL Creatinine 0.47 (L) 0.55 - 1.02 mg/dL BUN/Creatinine 23 (H) 8 - 20 Glucose 118 (H) 74 - 106 mg/dL Calcium 7.3 (L) 8.4 - 10.1 mg/dL Osmolality Calc 279.9 eGFR (mL/min/1.73m2) >60 >=60 mL/min/1.73m2 Potassium Collection Time: 07/19/24 9:27 AM Result Value Ref Range Potassium 3.4 (L) 3.5 - 5.1 meq/L CBC - Hemogram (-BKR) Collection Time: 07/20/24 8:17 AM Result Value Ref Range WBC 5.5 4.0 - 10.0 K/??L RBC 2.87 (L) 3.93 - 5.22 M/??L Hemoglobin 8.9 (L) 11.2 - 15.7 GM/DL Hematocrit 30.0 (L) 34.1 - 44.9 % MCV 105 (H) 79 - 95 fL MCH 31.0 25.6 - 32.2 pg MCHC 29.7 (L) 32.2 - 35.5 GM/DL RDW 16.6 (H) 11.7 - 14.4 % Platelets 40 (LL) 140 - 375 K/CU MM MPV 13.5 (H) 9.4 - 12.3 fL XR chest AP portable Result Date: 07/13/2024 PORTABLE CHEST HISTORY: Mental status change for 2 days., Fall 2 days prior COMPARISON: 07/02/2024.FINDINGS: A single portable radiograph of the chest was performed. The heart is normal in size. There is a vascular congestion. There is decreased lung volume with atelectasis. There is no edema or infiltrate. The bony thorax appears intact. Underinflation with no acute process. Images reviewed, interpreted, dictated and electronically signed by Mert Knight MD Voice compressor operator portable technology ([employer]) is used for the dictation of this note and sound-alike words might be erroneously placed despite reviewing this note for accuracy. Errors in dictation may reflect use of voice recognition software and not all errors in transcripti on may have been detected prior to signing. CT brain without IV contrast Result Date: 07/12/[address] 07/12/2024 5:06 PM HISTORY: [...] are unremarkable. Skull is intact. No skull fracturesare evident. Innumerable lytic lesions scattered throughout the calvarium consistent with patient'sknown diagnosis of multiple myeloma. No pathologic fracture is evident. No acute intracranial process. Innumerable lytic lesions [...] study was performed with techniques to keep radiationdoses as low as reasonably achievable, (ALARA). Individualized [...] granulomatous disease exposure. ABDOMEN: The liver is homogenouswith no focal abnormality. The spleen is unremarkable. Stable left adrenal nodule. The pancreas is unremarkable. The kidneys are unremarkable, without evidence of mass or hydronephrosis. The aorta isnormal in caliber. There is no free fluid or adenopathy. Postsurgical changes to the stomach are noted. PELVIS: The GI tract demonstrates no obstruction. The appendix is normal. The urinary bladder is unremarkable. There is no free fluid, adenopathy, or inflammatory process. Genital organs are unremarkable. No findings to suggest ovarian torsion. BONES: No acute fractures. IMPRESSION: 1. No acuteabnormality identified in the chest/abdomen/pelvis. 2. Stable left adrenal nodule. 3. No definite evidence to suggest cholelithiasis on today's study. 4. No significant interval change in innumerablelytic lesions throughout the bones consistent with patient's known history of multiple myeloma. Images reviewed, interpreted, and dictated by Tirno Nguyen M.D. CT chest abdomen pelvis with contrast Result Date: 07/12/[address] 07/12/2024 5:06 PM HISTORY: [...] are unremarkable. Skull is intact. No skull fracturesare evident. Innumerable lytic lesions scattered throughout the calvarium consistent with patient'sknown diagnosis of multiple myeloma. No pathologic fracture is evident. No acute intracranial process. Innumerable lytic lesions [...] study was performed with techniques to keep radiationdoses as low as reasonably achievable, (ALARA). Individualized [...] granulomatous disease exposure. ABDOMEN: The liver is homogenouswith no focal abnormality. The spleen is unremarkable. Stable left adrenal nodule. The pancreas is unremarkable. The kidneys are unremarkable, without evidence of mass or hydronephrosis. The aorta isnormal in caliber. There is no free fluid or adenopathy. Postsurgical changes to the stomach are noted. PELVIS: The GI tract demonstrates no obstruction. The appendix is normal. The urinary bladder is unremarkable. There is no free fluid, adenopathy, or inflammatory process. Genital organs are unremarkable. No findings to suggest ovarian torsion. BONES: No acute fractures. IMPRESSION: 1. No acuteabnormality identified in the chest/abdomen/pelvis. 2. Stable left adrenal nodule. 3. No definite evidence to suggest cholelithiasis on today's study. 4. No significant interval change in innumerablelytic lesions throughout the bones consistent with patient's known history of multiple myeloma. Images reviewed, interpreted, and dictated by Trino Nguyen M.D. CT ABDOMEN/PELVIS WITH IV CONTRAST Result Date: 07/04/2024 CT SCAN OF THE ABDOMEN AND [...] ABDOMEN: There is mild bibasilar atelectasis. The heartis normal in size. The liver is homogenous with no focal abnormality. There may be stones within the gallbladder. The spleen is unremarkable. There is a nonspecific 10 mm left adrenal nodule, new when compared to prior. The pancreas is unremarkable. The kidneys are unremarkable, without evidence ofmass or hydronephrosis. The aorta is normal in [...] disc disease is seen throughout the spine. Possible cholelithiasis. Otherwise, no acute process. Nonspecific left adrenal nodule. Numerous lytic lesions throughout the bones consistent with patient's known history of multiple myeloma. Images reviewed, interpreted, and dictated by Dr. Jaleesa Crabtree. Transcribed by Jaswant John, PA-C XR chest 1 view portable / bedside Result Date: 07/04/2024 PORTABLE CHEST. 07/04/2024 12:31 PM HISTORY: Weakness, multiple myeloma, nausea and vomiting. COMPARISON: January 2018. FINDINGS: The cardiac silhouette is normal in size. The mediastinum is unremarkable. The lungs are clear. There is no pneumothorax. No acute cardiopulmonary process. Images reviewed, interpreted, and dictated by Dr. Mert Knight. Transcribed by Silvia Pablo PA-C. Electronically signed by: Chandra Jose MD, 07/20/2024 at 8:13 AM EDT * Ken Urrutia MD - 07/19/2024 4:45 PM EDT Hematology Oncology Follow Up Note History of Present Illness: Patient was seen and examined today. She denies any new complaint today. Hemodynamically stable. She reported improvement of the back pain. She is supposed to be transferred to inpatient rehab facility tomorrow. 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[facility]) Chronic low back pain DVT (deep venous thrombosis) ([facility]) History of shingles 12/2019 Hypertension Multiple myeloma ([facility]) Peripheral neuropathy Pulmonary embolism ([facility]) Past Surgical History: Procedure Laterality Date BONE MARROW BIOPSY TOTAL KNEE ARTHROPLASTY Allergies: Ampicillin, Penicillin, Codeine, Indomethacin, and Morphine Medications: Current Outpatient Medications Medication Instructions albuterol 90 mcg/actuation inhaler 1-2 puffs, inhalation, Every 6 hours PRN aspirin 81 mg, oral, Daily busPIRone (BUSPAR) 20 mg, oral, 3 times daily cetirizine (ZYRTEC) 10 mg, oral, Daily clonazePAM (KLONOPIN) 0.5 mg, oral, 2 times daily PRN cyanocobalamin 1,000 mcg, oral, Daily DULoxetine (CYMBALTA) 30 mg, oral, Daily ergocalciferol (VITAMIN D2) 50,000 Units, oral, Every 7 days gabapentin (NEURONTIN) 300 mg, oral, 3 times daily, Can take up to 2 caps as directed meclizine (ANTIVERT) 1-2 mg, oral, Every 6 hours PRN metoprolol succinate (TOPROL-XL) 25 mg, oral, Daily multivitamin per tablet 1 tablet, oral, Daily nitrofurantoin, macrocrystal-monohydrate, (MACROBID) 100 MG capsule 100 mg, oral, 2 times daily with breakfast and dinner, Start Date: 07/05/2024 for 7 days ondansetron (ZOFRAN-ODT) 4 mg, oral, Every 8 hours PRN oxyCODONE (ROXICODONE) 10 mg, oral, Every 4 hours PRN PARoxetine (PAXIL) 30 mg, oral, Daily potassium chloride (KLOR-CON) 20 MEQ tablet 20 mEq, oral, Daily promethazine (PHENERGAN) 12.5 mg, oral, Every 6 hours PRN rivaroxaban (XARELTO) 20 mg, oral, Daily with dinner simvastatin (ZOCOR) 10 mg, oral, Every Night Review of Symptoms: Review of Systems Constitutional: Positive for malaise/fatigue. HENT: Negative. Eyes: Negative. Respiratory: Negative. Cardiovascular: Negative. Gastrointestinal: Negative. Genitourinary: Negative. Musculoskeletal: Positive for back pain. Skin: Negative. Neurological: Negative. Endo/Heme/Allergies: Negative. Psychiatric/Behavioral: Negative. Vitals Vitals: 07/19/24 0010 07/19/24 0015 07/19/24 0944 07/19/24 1250 BP: (!) 145/80 133/72 (!) 148/81 (!) 162/89 BP Location: Right arm Patient Position: Sitting Pulse: 78 70 79 76 Resp: 20 18 Temp: 96.4 ??F (35.8 ??C) 98.2 ??F (36.8 ??C) 96.8 ??F (36 ??C) TempSrc: Oral SpO2: 100% 100% Weight: Height: Gain/Loss Since Last Wt (Kgs): 0 kg Physical Exam Cardiovascular: Rate and Rhythm: Normal rate and regular rhythm. Pulmonary: Effort: Pulmonary effort is normal. Breath sounds: Normal breath sounds. Abdominal: General: Abdomen is flat. Palpations: Abdomen is soft. Comments: No Hepatosplenomegaly Musculoskeletal: Cervical back: Neck supple. Comments: No peripheral edema Lymphadenopathy: Comments: No peripheral adenopathy. Skin: General: Skin is warm. Neurological: Mental Status: She is alert. Relevant Results: WBC Date Value Ref Range Status 07/18/2024 3.9 (L) 4.0 - 10.0 K/??L Final 07/17/2024 5.2 4.0 - 10.0 K/??L Final 07/16/2024 6.1 4.0 - 10.0 K/??L Final RBC Date Value Ref Range Status 07/18/2024 2.40 (L) 3.93 - 5.22 M/??L Final 07/17/2024 2.78 (L) 3.93 - 5.22 M/??L Final 07/16/2024 2.42 (L) 3.93 - 5.22 M/??L Final Hemoglobin Date Value Ref Range Status 07/18/2024 7.5 (L) 11.2 - 15.7 GM/DL Final 07/17/2024 8.7 (L) 11.2 - 15.7 GM/DL Final 07/16/2024 7.5 (L) 11.2 - 15.7 GM/DL Final Hematocrit Date Value Ref Range Status 07/18/2024 23.4 (L) 34.1 - 44.9 % Final 07/17/2024 27.6 (L) 34.1 - 44.9 % Final 07/16/2024 24.0 (L) 34.1 - 44.9 % Final Platelets Date Value Ref Range Status 07/18/2024 30 (LL) 140 - 375 K/CU MM Final 07/17/2024 37 (LL) 140 - 375 K/CU MM Final 07/16/2024 41 (L) 140 - 375 K/CU MM Final Chemistry Component Value Date/Time NA 140 07/19/2024 0927 K 3.4 (L) 07/19/2024 0927 K 3.4 (L) 07/19/2024 09 CL 110 07/19/2024 09 CO2 20 (L) 07/19/2024 09 BUN 11 07/19/2024 0927 CREATININE 0.47 (L) 07/19/2024 09 Component Value Date/Time CALCIUM 7.3 (L) 07/19/2024 09 ALKPHOS 45 07/17/2024 0806 AST 38 (H) 07/17/2024 0806 ALT 11 (L) 07/17/2024 0806 BILITOT 0.5 07/17/2024 0806 Radiology Results (last 7 days) Procedure Component Value Units Date/Time CT BIOPSY SITE - BONE MARROW [[id number]] Collected: 07/18/24 1532 Order Status: Completed Updated: 07/18/24 153 Narrative: CT GUIDED BONE MARROW BIOPSY HISTORY: Severe anemia and thrombocytopenia. ATTENDING PHYSICIAN: Dr. Garrison PHYSICIAN OPERATING ROOM TECH: Serge Castillo PA-C PROCEDURE: This study was [...] and left the department in good condition. Impression: Status post CT guided bone marrow biopsy without immediate complication. PROCEDURAL SEDATION: 1 mg of IV Versed and 50 mcg of Fentanyl were administered. Continuous vital sign monitoring was used. An RN was present during the sedation process. Overall sedation time was 15 minutes. Images reviewed, interpreted, and dictated by Dr. Cristi Garrison. Transcribed by Serge Castillo PA-C. XR chest AP portable [[id number]] Collected: 07/16/24 0832 Order Status: Completed Updated: 07/16/24 163 Narrative: PORTABLE CHEST; HISTORY: Precordial chest pain. COMPARISON: July 12, 2024. FINDINGS: The heart is stable in size. There are low lung volumes with perihilar vascular enlargement and crowding. There is no pneumothorax. Impression: Stable exam. Images reviewed, interpreted, and dictated by Dr. Zac Ordoñez. Transcribed by Stacy Marte PA-C. XR KUB PORTABLE [[id number]] Collected: 07/15/24 1254 Order Status: Completed Updated: 07/15/241947 Narrative: SINGLE VIEW ABDOMEN HISTORY: Corpak placement. ABDOMEN: Single view of the abdomen demonstrates a nonobstructive bowel gas pattern. No abnormal calcifications are identified. There is a feeding tube with the tip in the stomach. Impression: Feeding tube tip in the stomach. Images reviewed, interpreted, and dictated by Dr. Zac Ordoñez. Transcribed by Stacy Marte PA-C. Ultrasound liver [[id number]] Collected: 07/14/242048 Order Status: Completed Updated: 07/14/242057 Narrative: ULTRASOUND OF THE LIVER HISTORY: Elevated ammonia. [...] toward the liver. Hepatic artery is patent. Impression: Normal-appearing portal vein. Apparent extrahepatic biliary ductal dilation, of uncertain etiology or significance, as discussed above. Images reviewed, interpreted and dictated by Dr. Bacilio Patel MD CT brain without IV contrast [[id number]] Collected: 07/12/241739 Order Status: Completed Updated: 07/12/242034 Narrative: HEAD CT 07/12/2024 5:06 PM HISTORY: Acute [...] multiple myeloma. No pathologic fracture is evident. Impression: No acute intracranial process. Innumerable lytic lesions [...] interpreted, and dictated by Trino Nguyen M.D. CT chest abdomen pelvis with contrast [[id number]] Collected: 07/12/24 1740 Order Status: Completed Updated: 07/12/242034 Narrative: HEAD CT 07/12/2024 5:06 PM HISTORY: Acute [...] multiple myeloma. No pathologic fracture is evident. Impression: No acute intracranial process. Innumerable lytic lesions [...] interpreted, and dictated by Trino Nguyen M.D. Assessment Relapsed multiple myeloma. Her most recent systemic therapy was with Kyprolis and dexamethasone. She completed 4-day course of high-dose dexamethasone, 40 mg IV daily. She experienced significant improvement of her performance status and pain. Severe anemia and thrombocytopenia. This is most likely due to underlying bone marrow infiltration with clonal plasma cell. She had bone marrow biopsy and aspirate done the day before yesterday and the result is still pending. Plan Please consider blood and platelet transfusion as needed. Patient will be discharged to inpatient rehab facility tomorrow and she has a follow-up appointmentwith her aerospace project engineer, Dr. Pacheco day after tomorrow. Please call me if you have any question. We will continue to follow-up Signed: Electronically signed by Ken Urrutia MD 07/19/2024 4:45 PM EDT * Claritza Ocampo RN - 07/19/2024 11:21 AM EDT Discharge Plan Progress Note Pt is approved for [facility], awaiting transport time for 07/20/24 Scheduled with [employer] for 07/20 @ 11a. Claritza Ocampo RN * Jr Dominguez, PT - 07/19/2024 11:20 AM EDT Images from the original note were not included. Inpatient Physical Therapy Treatment Patient Name: Asher Daniel Date of : 1960 Date of Treatment: 07/19/24 Start Time 1120 Stop Time 1152 Session Duration 32 minutes General Visit Type: Treatment Approved by: Nurse Dahl Patient Disposition Upon Entry: Supine in bed, Call Light/Pull Cord in reach, HOB >30 degrees, Visitor/Family present Patient Verified By: Name and Date of Precautions Weight-Bearing Status: No Restrictions Precautions: Fall risk Isolation Precautions: Standard Subjective Subjective: Patient agreeable to physical therapy treatment. Pain No - Patient not reporting pain at this time Cognition Confused and anxious. Pt requiring max cues for encouragement Impulsive Objective Vitals Did not assess Functional Mobility Bed Mobility: Supine to Sit: moderate assistance Sit to Supine: maximal assistance Bed Scooting: total assistance / dependent Transfers Attempted multiple times but pt resistant due to anxiety Gait Attempted multiple times but pt resistant due to anxiety Stair Management Not appropriate at this time - working on transfers/gait as able Wheelchair Mobility Cont to assess [facility] Basic Mobility Inpatient Short Form How much difficulty does the patient currently have: Turning over in bed (including adjusting bedclothes, sheets, and blankets)? (1) Total/Unable (not able to do the activity or can only perform the activity using assistive devices or requires assistance from another person, including supervision or cueing for safety) Sitting down on and standing up from a chair with arms (e.g., wheelchair, bedside commode, etc.)? (1) Total/Unable (not able to do the activity or can only perform the activity using assistive devices or requires assistance from another person, including supervision or cueing for safety) Moving from lying on back to sitting on side of bed? (1) Total/Unable (not able to do the activity or can only perform the activity using assistive devices or requires assistance from another person,including supervision or cueing for safety) How much help from another person does the patient currently need: Moving to and from a bed to a chair (including a wheelchair)? (2) A lot (Maximal/Moderate assist) Need to walk in hospital room? (1) Total/Unable (Total assist/dependent) Climbing 3-5 steps with a railing? (1) Total/Unable (Total assist/dependent) Score Raw score=7 t-scale score=26.42 Standard error=4.33 CMS 0-100%=92.36% MDC=4.72 A raw score of >= 16 is significantly associated with increased odds of discharge to home in addition to consideration made for the patient's cognition and social determinants of health. Balance Static/dynamic sitting and static/dynamic standing balance grades Balance Grade Sitting Static Fair - patient able to maintain balance with handhold support; may require occasional minimal assistance Sitting Dynamic Fair - patient accepts minimal challenge; able to maintain balance while turning head/trunk Standing Static Did not assess Standing Dynamic Did not assess Activity Tolerance Patient limited with activity/intervention due to fatigue, deconditioning, weakness, anxiety, and difficulty following commands Treatment Performed sup to sit with HOB elevated modA. Upon sitting EOB, pt needing max cues for follow-through maxA for BLE positioned on ground with use of sheet. However, pt resistant throughout for OOB transfers despite reporting urge for voiding. Family present as well for attempts for encouragement to which pt anxious/indecisional about bathroom transfers. Pt then having watery BM at EOB. Pt returnedto supine with maxA for safety and notified for pericare. Assessment Patient demonstrates impairments and functional limitations of weakness, limited endurance, decreased mobility and impaired safety. Patient able to demonstrate bed mob but needing mod to maxA for follow-through. Primary limiting factor is capacitating pt to participate due to confusion per anxious.Family at bedside stating pt is normally able to ambulate independently as well as drive. Cont to assess. Patient would benefit from continued skilled PT services due to cooperation to improve functional mobility, activity tolerance, pain management to return to PLOF. Problems: Decreased functional mobility, Decreased strength, Decreased activity tolerance, Impairedsitting balance, Impaired standing balance Rehab potential: Guarded due to anxiety/confusion. Plan Treatment plan: Therapeutic Exercise, Therapeutic Activity, Gait Training, Neuromuscular Re-education, Transfer Training, Strengthening, Home Exercise Program, Patient/Family/Caregiver Education, DMERecommendations, Co-Treat with OT PT Frequency/Duration: 3x/week for 14 days Recommendations Discharge recommendations: Discharge recommendations pending progression of acute hospital stay secondary to the patient's medical status DME recommendations: Unable to make recommendations at this time. Goals Supine to/from sit: Linsey x 1 assist, HOB elevated, for active participation in skilled PT intervention, decreased caregiver burden Sit to/from stand: Min assist x1, Rwx, for improved functional ability, pressure relief Transfers: Linsey x 1, Rwx Gait: 50ft, Rwx, Linsey x 1 Target Date: 07/31/2024 Progress towards goals: progressing Education Patient educated on role of physical therapy, need for assistance, and risk for falls and following, they were not able to verbalize understanding. No further questions or concerns stated. Patient Disposition Upon Leaving Supine in bed, Call Light/Pull Cord in reach, All needs met and within reach, HOB >30 degrees, Side rails up, Family/visitor present If this patient discharges prior to next therapy session, this note serves as the patient's discharge summary. Electronically signed by Jr Dominguez, PT - 07/19/24 - 11:55 AM EDT * Claritza Ocampo RN - 07/19/2024 10:18 AM EDT Discharge Plan Progress Note Patient Name: Asher Daniel Date of : 1960 Insurance: Primary Coverage ([employer] - Medicare Mgd Care) Authorization number not found. Subscriber number: [id number] Admission Date: 07/12/2024 Admission Diagnosis: Transient alteration of awareness [R40.4] Anemia [D64.9] Sepsis (HCC) [A41.9] Hospital Room: [address] [place] [address] Requesting Transport Claritza Ocampo RN Oxygen Documentation from Nursing Flowsheets: Oxygen Therapy/Pulse Ox Oxygen Therapy: None (Room air) SpO2: 100 % Patient Activity During SpO2 Measurement: At rest Safety Instructions: Yes (Comment) EtCO2: 27 mmHg $ Oxygen per 12 hours: (prn) $ Pulse Oximetry Spot Check: Single $0 Patient Assessment Charge: Subsequent Ht Readings from Last 3 Encounters: 07/15/24 1.778 m (5' 10 ) 07/07/24 1.6 m (5' 3 ) 07/04/24 1.6 m (5' 3 ) Wt Readings from Last 3 Encounters: 07/12/24 98 kg (216 lb) 07/07/24 98 kg (216 lb) 07/04/24 103 kg (227 lb) Current Code Status Full code Isolation precautions: No active isolations Transport Type Requested: Ambulance - BLS PCS Justification: PCS Justification: Significant Weakness Monitoring Required: NONE Destination Type: Destination Types: Rehab Destination Address: [address] [place] [address] Destination Date Transport is Needed: 07/20/24 Phone Number for [facility] Nurses Station: [phone] Can the patient pay for transportation? N/A Claritza Ocampo RN * Mara Rodney APRN - 07/19/2024 9:52 AM EDT Subjective No complaints Objective Last Recorded Vitals Blood pressure 133/72, pulse 70, temperature 96.4 ??F (35.8 ??C), resp. rate 20, height 1.778 m (5'10 ), weight 98 kg (216 lb), SpO2 100 %. Physical Exam Vitals reviewed. Constitutional: Appearance: Normal appearance. She is normal weight. HENT: Head: Normocephalic and atraumatic. Mouth/Throat: Mouth: Mucous membranes are moist. Pharynx: Oropharynx is clear. Eyes: Extraocular Movements: Extraocular movements intact. Pupils: Pupils are equal, round, and reactive to light. Cardiovascular: Rate and Rhythm: Normal rate. Rhythm irregular. Pulses: Normal pulses. Heart sounds: Normal heart sounds. Pulmonary: Effort: Pulmonary effort is normal. Breath sounds: Normal breath sounds. Abdominal: General: Abdomen is flat. Bowel sounds are normal. Palpations: Abdomen is soft. Musculoskeletal: Right lower leg: No edema. Left lower leg: No edema. Skin: General: Skin is warm and dry. Neurological: General: No focal deficit present. Mental Status: She is alert and oriented to person, place, and time. Psychiatric: Mood and Affect: Mood normal. Behavior: Behavior normal. Labs: Results for orders placed or performed during the hospital encounter of 07/12/24 (from the past 24 hour(s)) Glucose, Nova Meter Status: Abnormal Collection Time: 07/18/24 12:15 PM Result Value Ref Range POC-GLUCOSE 125 (H) 70 - 110 mg/dL [employer] Consultant [id number] Glucose, Nova Meter Status: Abnormal Collection Time: 07/18/24 4:44 PM Result Value Ref Range POC-GLUCOSE 122 (H) 70 - 110 mg/dL [employer] Consultant [id number] Glucose, Nova Meter Status: Abnormal Collection Time: 07/18/24 9:14 PM Result Value Ref Range POC-GLUCOSE 114 (H) 70 - 110 mg/dL [employer] Resource Planning Consultant [id number] Glucose, Nova Meter Status: Abnormal Collection Time: 07/19/24 7:29 AM Result Value Ref Range POC-GLUCOSE 111 (H) 70 - 110 mg/dL [employer] Consultant [id number] CT BIOPSY SITE - BONE MARROW Narrative: CT GUIDED BONE MARROW BIOPSY HISTORY: Severe anemia and thrombocytopenia. ATTENDING PHYSICIAN: Dr. Garrison PHYSICIAN OPERATING ROOM TECH: Serge Castillo PA-C PROCEDURE: This study was [...] and left the department in good condition. Impression: Status post CT guided bone marrow biopsy without immediate complication. PROCEDURAL SEDATION: 1 mg of IV Versed and 50 mcg of Fentanyl were administered. Continuous vital sign monitoring was used. An RN was present during the sedation process. Overall sedation time was 15 minutes. Images reviewed, interpreted, and dictated by Dr. Cristi Garrison. Transcribed by Serge Castillo PA-C. Assessment PAF with RVR, now NSR - rate controlled on Cardizem, wean - keep K>4.0, Mag>2.0 replace prn - transition to oral beta ede, able to safely swallow now - echocardiogram Mild left ventricular hypertrophy. Normal left ventricular systolic function with visually estimated ejection fraction 60% +/- 5%. Grade 1 diastolic dysfunction. Mild left atrial enlargement. Mild-moderate mitral regurgitation. 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 Jose Evaluating Physician: Gerson Aguirre MD Chief Complaint: AMS Reason for Consultation: fever History of present illness: Patient is a 64 y.o. female with history of asthma, chronic lower back pain, DVT, HTN, Multiple myeloma on chemotherapy, PTE, seen today for fever. No history is available from the patient due to altered mental status and her mental status was last normal on Wednesday. Presented to the ED with complaints of recent fall, mental status changes, anorexia, and weakness. She has been treated for a recentUTI by her PCP. She was seen in the ED 07/04 with same complaints, CT revealing numerous lytic lesions throughout bones consistent with MM, CXR clear, UA with 500 LE, and urine culture with Klebsiella, and she was discharged home ojn Bactrim. Back to ED with above complaints. Tmax of 102 degrees. Ad mitting labs with WBC 6.1, plt 64, hgb 7.2, Scr 0.8, PCT 0.39, ALT 10 , AST 36, total bilirubin 1.2, and NH3 81. CXR without acute process, CT without acute abnormality chest, abdomen, pelvis, lytic lesions unchanged. HCT no acute process, innumerable lytic lesions throughout calvarium consistent with MM. Liver Us with fatty changes, no focal liver lesion noted. CBD 9.6 mm, abnormally dilated. Currently on Ceftriaxone and we were consulted for evaluation and treatment. Family in room. She will open eyes, grimace. 07/16/24: She remains afebrile without leukocytosis. Corpak removed due to malpostioning. She appears more alert this am. Does not follow commands. Son at bedside. 07/17/24: the patient is alert and following some simple commands today and trying to answer some questions although responses are minimal and not talking much. No fevers. Plt count remains low at 37today. Wbc is normal at 5.2. Cr is stable at 0.6. ammonia level has improved. 07/18/24: denies headache. Answering a few simple questions. Her son is trying to help her swallow her oral medications with water at bedside but she is not cooperating. No fevers. Ongoing cytopeniaswith downtrending plt count. BM biopsy planned for today. Hem/onc following. 07/19/24: BM biopsy results pending. Patient was sleeping during my exam. Her son who was at bedside states that she has been conversing better when she has been awake. She is still very weak but plans to work with PT. She is eating very little. No fevers. Review of Systems: Unable to provide any history due to encephalopathy 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HCC) Chronic low back pain DVT (deep venous thrombosis) (HCC) History of shingles 12/2019 Hypertension Multiple myeloma (HCC) Peripheral neuropathy Pulmonary embolism (HCC) Past Surgical History: Procedure Laterality Date BONE MARROW BIOPSY TOTAL KNEE ARTHROPLASTY Social History Socioeconomic History Marital status: / Spouse name: Not on file Number of children: 4 Years of education: Not on file Highest education level: Not on file Occupational History Not on file Tobacco Use Smoking status: Never Smokeless tobacco: Never Vaping Use Vaping Use: Never used Substance and Sexual Activity Alcohol use: Never Drug use: Never Sexual activity: Not on file Other Topics Concern Not on file Social History Narrative Not on file Social Determinants of Health Financial Resource Strain: Low Risk (07/19/2024) Financial Resource Strain : 0 Food Insecurity: No Food Insecurity (07/19/2024) Food Insecurity : 0 : 0 Transportation Needs: No Transportation Needs (07/19/2024) Transportation Needs : 2 Physical Activity: Inactive (07/12/2024) Physical Activity : 0 Stress: No Stress Concern Present (07/19/2024) Stress : 1 Social Connections: Low Risk (07/19/2024) Family and Community Support : 0 : 0 Intimate Partner Violence: Not on file Housing Stability: Low Risk (07/19/2024) Housing Stability : 0 : 0 Family History Problem Relation Age of Onset Dementia Mother Heart attack Father Allergies Allergen Reactions Ampicillin Hives and Shortness Of Breath 07/12/24: Tolerated Rocephin Penicillin Hives 07/12/24: Tolerated Rocephin Codeine Indomethacin Morphine @Scheduled Meds: acyclovir 690 mg intravenous Q8H IVPB Stopped at 07/19/24 0605 atorvastatin 10 mg oral Daily 10 mg at 07/19/24 0944 busPIRone 15 mg oral TID 15 mg at 07/19/24 0945 cyanocobalamin 1,000 mcg oral Daily 1,000 mcg at 07/19/24 0945 DULoxetine 30 mg oral Daily 30 mg at 07/19/24 0944 [Held by provider] enoxaparin 1 mg/kg subcutaneous Q12H 100 mg at 07/18/24 0912 ergocalciferol 50,000 Units oral Weekly 50,000 Units at 07/19/24 0955 gabapentin 100 mg oral TID 100 mg at 07/19/24 0945 lactulose 20 g oral Daily 20 g at 07/19/24 0946 metoprolol tartrate 12.5 mg feeding tube BID 12.5 mg at 07/19/24 0945 pomalidomide 1 capsule oral Daily rifAXIMin 550 mg oral BID 550 mg at 07/19/24 0944 Continuous Infusions: PRN Meds:. acetaminophen dextrose docusate sodium glucagon glucose hydrALAZINE HYDROmorphone ipratropium-albuteroL LORazepam meclizine melatonin ondansetron Or ondansetron PF oxyCODONE sodium chloride Physical Exam: Vital Signs Vitals: 07/19/24 0010 07/19/24 0015 07/19/24 0944 07/19/24 1250 BP: (!) 145/80 133/72 (!) 148/81 (!) 162/89 Pulse: 78 70 79 76 Resp: 20 18 Temp: 96.4 ??F (35.8 ??C) 98.2 ??F (36.8 ??C) 96.8 ??F (36 ??C) TempSrc: Oral SpO2: 100% 100% Weight: Height: GENERAL sleeping. Frail appearing HEENT: no external oral lesions noted NECK: Supple HEART: RRR; No murmur. LUNGS: CTAB. Normal respiratory effort. ABDOMEN: nondistended. EXT: No cyanosis, clubbing or edema. No palpable cord MSK: FROM without joint effusions noted arms/legs. SKIN: no generalized rashes noted. NEURO: sleeping Laboratory Data Lab Results Component Value Date WBC 3.9 (L) 07/18/2024 HGB 7.5 (L) 07/18/2024 HCT 23.4 (L) 07/18/2024 MCV 98 (H) 07/18/2024 PLT 30 (LL) 07/18/2024 Lab Results Component Value Date GLUCOSE 118 (H) 07/19/2024 CALCIUM 7.3 (L) 07/19/2024 NA 140 07/19/2024 K 3.4 (L) 07/19/2024 K 3.4 (L) 07/19/2024 CO2 20 (L) 07/19/2024 CL 110 07/19/2024 BUN 11 07/19/2024 CREATININE 0.47 (L) 07/19/2024 Estimated Creatinine Clearance: 60.7 mL/min (A) (by C-G formula based on SCr of 0.47 mg/dL (L)). Lab Results Component Value Date ALT 11 (L) 07/17/2024 AST 38 (H) 07/17/2024 ALKPHOS 45 07/17/2024 BILITOT 0.5 07/17/2024 Lab Results Component Value Date CRP < 0.2 (L) 06/17/2021 Lab Results Component Value Date SEDRATE 13 06/17/2021 Microbiology: Microbiology Results (last 7 days) Procedure Component Value Units Date/Time Blood Culture [[id number]] Collected: 07/12/241619 Order Status: Completed Specimen: Blood Updated: 07/17/24 170 Result No growth in 5 days Blood Culture [[id number]] Collected: 07/12/241619 Order Status: Completed Specimen: Blood Updated: 07/17/24 170 Result No growth in 5 days SARS-COV2/RT-PCR [[id number]] (Normal) Collected: 07/12/24 1647 Order Status: Completed Specimen: Nasopharyngeal Swab Updated: 07/12/24 173 SARS-COV2/RT-PCR Negative Narrative: Testing was performed using RT-PCR methodology approved for use under FDA Emergency Use Authorization only. Negative results do not preclude infection with the SARS-CoV-2 virus and should not be usedas the sole basis of a patient treatment or public health decisions. Negative results must be considered in the context of an individual's recent exposures, history, and presence of clinical signs/symptoms. Follow-up testing should be performed according to the current CDC recommendations. Blood Culture [[id number]] Order Status: Canceled Specimen: Blood Blood Culture [[id number]] Order Status: Canceled Specimen: Blood Radiology: Radiology Results (last 3 days) Procedure Component Value Units Date/Time CT BIOPSY SITE - BONE MARROW [[id number]] Collected: 07/18/24 153 Order Status: Completed Updated: 07/18/24 153 Narrative: CT GUIDED BONE MARROW BIOPSY HISTORY: Severe anemia and thrombocytopenia. ATTENDING PHYSICIAN: Dr. Garrison PHYSICIAN OPERATING ROOM TECH: Serge Castillo PA-C PROCEDURE: This study was [...] and left the department in good condition. Impression: Status post CT guided bone marrow biopsy without immediate complication. PROCEDURAL SEDATION: 1 mg of IV Versed and 50 mcg of Fentanyl were administered. Continuous vital sign monitoring was used. An RN was present during the sedation process. Overall sedation time was 15 minutes. Images reviewed, interpreted, and dictated by Dr. Cristi Garrison. Transcribed by Serge Castillo PA-C. XR chest AP portable [[id number]] Collected: 07/16/24 0832 Order Status: Completed Updated: 07/16/24 163 Narrative: PORTABLE CHEST; HISTORY: Precordial chest pain. COMPARISON: July 12, 2024. FINDINGS: The heart is stable in size. There are low lung volumes with perihilar vascular enlargement and crowding. There is no pneumothorax. Impression: Stable exam. Images reviewed, interpreted, and dictated by Dr. Zac Ordoñez. Transcribed by Stacy Marte PA-C. Impression: - Fever, source unclear; ? Medications/drug fever vs. HSV encephalitis. Urinalysis was not concerning for UTI and blood cultures remain NGTD. 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 No acute abnormalities noted on recent CT C/A/P. LFTs were repeat and were WNL so cholangitis seems unlikely. - Acute toxic/metabolic encephalopathy- mental status was last normal on 07/10/24 per family. Seemsmore alert today and trying to answer some simple questions and able to follow some simple commands. She is able to say a few words but was apparently conversing more with her son earlier. - Recent Klebsiella UTI, was on Bactrim - CBD dilatation, 9.6mm per liver US, not noted on CT - no indication for ERCP per GI note, now on Rifaximin, Lactulose - Multiple myeloma, s/p BM transplant- now on Pomalidomide but has not had chemo in a month - Anemia - Thrombocytopenia- worsening - DVT on Eliquis - Hyperammonemia- lactulose - History of PCN allergy- Hives PLAN: - follow cbc with diff and temperature curve - closely monitor off antibiotics - Acyclovir 10 mg/kg IV q 8hrs for now. Could consider switching to oral valtrex 1g PO TID soon if she is tolerating PO meds ok. May consider a 14 day course empirically given her fevers and mental status improved after starting acyclovir although her mental status improvement could have been due to improvement in her ammonia levels. - Hem/onc service following in the setting of her MM and cytopenias. BM biopsy done today with results pending. UM/HUNTER: I would be ok with her discharge to inpatient rehab when she is cleared by other teams. BM biopsy results pending. She can be switched to valtrex 1g PO TID through 07/28/24 at time of discharge. I discussed with her son at bedside today Copied text in this note has been reviewed and is accurate as of 07/19/24 Complex MDM Gerson Aguirre MD 07/19/2024 * Chandra Jose MD - 07/19/2024 8:06 AM EDT PCP: MARILEE Muñoz Date of Admission: 07/12/2024 Date of Discharge 07/20/2024 Reason for Hospitalization Asher Daniel is a 64 y.o. female with PMHx of multiple myeloma which she is getting chemotherapy for biweekly and missed her last dose was brought in by her son with increasing confusion and altered mental status. Patient is intermittently confused. She has had multiple falls at home andhas an abrasion to right forehead. Pt is confused and able to answer some questions but most answers don't make sense. She has some lower abd discomfort. Consultations obtained -Physical and occupational therapy services -Case management -Oncology hematology -Gastroenterology -Neurology services -Infectious disease services Procedures performed -Bone marrow biopsy aspiration per oncology ordered Hospital course/follow-up 07/13 please note this is my first visit with this patient, she is somewhat somnolent at the time of my interaction no family in the room, marked anemia noted platelets also on the low side imaging studies reviewed patient appears quite sick at the moment H&P extensively reviewed as well 07/14 I have discussed extensively yesterday with the son over the phone and updated him about planof care, patient is quite sick, she is rather in critical condition, this morning she is still somnolent although easily arousable, low- grade fever overnight noted also received some Dilaudid, this morning I called and discussed with the nursing staff extensively as well, ammonia level slightly trending down after I initiated lactulose, prognosis not great, did receive blood transfusions, oncology hematology already on board here, due to her somnolent I would like to rule out hypercarbia therefore I will check arterial blood gas this was also communicated to the nursing staff, if patient deter iorates low threshold to transfer her to ICU critical illness unfortunately continues prognosis notgreat 07/15 patient seen and evaluated, remains quite sick overall, she is somnolent, unable to participate in history with me, son present in the room today, had long discussion with him today at bedside previously discussed with him extensively over the phone multiple times, patient had spiked a fever Tmax close 202 ??F last night, cultures are negative, she is on antibiotic therapy at present time, due to fever I will consult infectious disease services, patient has been placed on high-dose dexamethasone under the guidance of oncology hematology for underlying multiple myeloma, seen by gastroenterology and neurology services, rifaximin and lactulose has been added, ammonia level worsening, seems like patient unable to take oral medications on a consistent basis, I believe her prognosis not great at this time, plan discussed with the son extensively at bedside patient resisted full code 07/16 patient had good night seen and evaluated son at bedside mentation a lot better more awake follows some commands fever resolving antibiotics enhanced antiviral added sodium 149 potassium low son is happy with her progress patient's platelets hemoglobin remains low secondary to multiple myeloma, ammonia levels markedly improved after receiving rifaximin as well as lactulose 07/17 patient seen and evaluated, resting, yesterday late afternoon events noted when she went intotachyarrhythmia, now on Cardizem drip, Lovenox added per on- call physician, more awake resting communicating son at bedside overall happy with her progress, no labs out for today at the time of this dictation potassium was low magnesium normal, she remains on antivirals, I discussed with infectiousdisease yesterday multiple ongoing issues noted at present time although mentation fraga she is improving slowly 07/18 Patient was seen and examined today. She was much more alert and awake today and was able to answer questions properly. She feels overall better. She continues to have some back pain. Patient'sson in the room but unfortunately he slept throughout my encounter today did not wake up, now patient going for bone marrow studies per oncology, hemoglobin worse, platelet worse, full dose Lovenox on board which will be very problematic with worsening cytopenias, I worry that she is not toleratingfull dose blood thinners at this point, therefore I will hold it for now given risks in my opinion are much more than benefit, patient's ammonia levels improving, discussed with the case management in regards to discharge planning discussed with infectious disease as well 07/19 patient underwent bone marrow biopsy yesterday results pending, seen and evaluated this morning, laying on the bed awake follows command, son in the room but did not wake up at the time of my interaction, patient remains on antiviral therapy per infectious disease, oncology hematology on board, case management following for discharge planning at this time, patient not the best candidate foranticoagulation given risks are much more than benefit given marked anemia and marked thrombocytopenia 07/20 Diagnosis: -Sepsis in an immunocompromise host, present upon admission, source appears to be genitourinary -Suspected UTI/acute cystitis -Acute metabolic encephalopathy, now improving, concern for encephalitis, antiviral added per oncology -Markedly elevated ammonia level, now improving, seen by gastroenterology -Marked symptomatic anemia with thrombocytopenia in the setting of known multiple myeloma-status post CT-guided bone marrow aspiration and biopsy per interventional radiology dated 07/18 -Atrial fibrillation with rapid ventricular response -Documented history of DVT/PE -chronically on Xarelto -Essential hypertension -History of peripheral neuropathy -Electrolyte imbalance with hypernatremia and hypokalemia Plan 07/13 continue broad-spectrum antibiotics, follow-up on pending cultures, continue gentle IV fluid support, monitor volume status closely, continue to monitor hemoglobin hematocrit, transfuse blood as needed, monitor platelets, watch mentation closely, continue subset of home meds as indicated, monitor labs closely, PT OT roxy, plan discussed with the patient but she is poorly cognizant of the situation, Complex medical issues with acute on chronic multiple co morbidities requiring multidisciplinary management. Holding Xarelto in the setting of marked anemia, oncology hematology consultation,in regards to elevated ammonia level adding lactulose and will monitor ammonia levels closely at this point, plan discussed with the nursing staff this morning 07/14 I will continue lactulose, continue to monitor ammonia levels on daily basis, I would like tocheck ABG to rule out hypercarbia as etiology of somnolence and mentation related issues, increase activity with physical therapy as much as possible continue lactulose at this point, continue to hold Xarelto up until hemoglobin improves further, follow oncology hematology recommendations, prognosis not great, discussed with the nursing extensively yesterday extensively discussed with the son as well updated him about plan of care and patient's poor prognosis, I have spent 32 minutes of critical care time taking care of this patient today 07/15 I will continue antibiotic therapy, enhancing coverage at this time given worsening fever, consulting infectious disease for their advice and input given patient's immunocompromise status, watch mentation closely, continue rifaximin and lactulose if she is able to take it, continue steroid added per oncology hematology, watch mentation closely, oncology thinks her prognosis is not great dueto advanced multiple myeloma, plan discussed with the patient's son extensively at bedside, discussed with the nursing staff as well 07/16 monitor electrolytes and replace as needed, continue antibiotics and antiviral per infectiousdisease, monitor labs closely monitor CBC on daily basis increase activity with physical therapy plan of care extensively discussed with son at bedside yet again, Complex medical issues with acute onchronic multiple co morbidities requiring multidisciplinary management. 07/17 continue gentle IV fluids, Lovenox added, needs to be cautious with worsening anemia worsening thrombocytopenia on full dose anticoagulation therapy will monitor CBC closely, continue antibiotics antivirals under the guidance of infectious disease services, I discussed with ID services yesterday, obtaining transthoracic echo, check TSH, cardiology consultation requested and pending, watch mentation plan extensively discussed with the son at bedside yet again 07/18 worsening CBC on full dose Lovenox, holding Lovenox given risk of more than the benefit, bonemarrow exam ordered per oncology, watch mentation closely markedly improved, antibiotics and antiviral deferred to infectious disease services, watch mentation closely, multiple issues noted discussed with the case management plan of care prognosis overall guarded 07/19 follow-up on bone marrow results, continue acyclovir under the guidance of infectious diseasewatch mentation closely increase activity with physical therapy patient need inpatient rehab case management on board plan of care discussed with the patient this morning 07/20 Per ID: oral valtrex 1g PO TID soon if she is tolerating PO meds ok. May consider a 14 day course empirically DCP: Post-acute facility has started a pre-cert. [employer] Voice compressor operator portable technology ([employer]) is used for dictation of this note and sound-alike words might be erroneously placed despite reviewing the note for accuracy. Errors in dictation mayreflect use of voice recognition software and not all errors in compressor operator portable may have been detected prior to signing Hospital Medications Scheduled Meds: acyclovir 690 mg intravenous Q8H IVPB Stopped at 07/19/24 06 atorvastatin 10 mg oral Daily 10 mg at 07/18/24912 busPIRone 15 mg oral TID 15 mg at 07/18/242116 cyanocobalamin 1,000 mcg oral Daily 1,000 mcg at 07/18/24912 DULoxetine 30 mg oral Daily 30 mg at 07/18/24912 [Held by provider] enoxaparin 1 mg/kg subcutaneous Q12H 100 mg at 07/18/24911 ergocalciferol 50,000 Units oral Weekly 50,000 Units at 07/12/242253 gabapentin 100 mg oral TID 100 mg at 07/18/242116 insulin lispro 0-18 Units subcutaneous 4x Daily AC lactulose 20 g oral BID 20 g at 07/18/242120 metoprolol tartrate 12.5 mg feeding tube BID 12.5 mg at 07/18/242121 pomalidomide 1 capsule oral Daily rifAXIMin 550 mg oral BID 550 mg at 07/18/242117 Continuous Infusions: dextrose 5 % (D5W) 50 mL/hr (07/18/24 1546) dilTIAZem Stopped (07/18/24 1023) PRN Meds:. acetaminophen dextrose docusate sodium glucagon glucose hydrALAZINE HYDROmorphone ipratropium-albuteroL LORazepam meclizine melatonin ondansetron Or ondansetron PF oxyCODONE sodium chloride Physical Exam Vitals: 07/19/24 0015 BP: 133/72 Pulse: 70 Resp: Temp: 96.4 ??F (35.8 ??C) SpO2: General: NAD HEENT: Generally negative Neck: No JVD noted CVS: S1, S2, no S3 or S4 Lungs: Equal air entry symmetrical chest expansion GI: Soft, audible bowel sounds Neurological: Nonfocal Musculoskeletal: Generally unremarkable Skin: Warm without any noted rashes Labs & Imaging Recent Results (from the past 24 hour(s)) Glucose, [employer] Meter Collection Time: 07/18/24 12:15 PM Result Value Ref Range POC-GLUCOSE 125 (H) 70 - 110 mg/dL [employer] Consultant [id number] Glucose, [employer] Meter Collection Time: 07/18/24 4:44 PM Result Value Ref Range POC-GLUCOSE 122 (H) 70 - 110 mg/dL [employer] Consultant [id number] Glucose, [employer] Meter Collection Time: 07/18/24 9:14 PM Result Value Ref Range POC-GLUCOSE 114 (H) 70 - 110 mg/dL [employer] Consultant [id number] Glucose, [employer] Meter Collection Time: 07/19/24 7:29 AM Result Value Ref Range POC-GLUCOSE 111 (H) 70 - 110 mg/dL [employer] Consultant [id number] XR chest AP portable Result Date: 07/13/2024 PORTABLE CHEST HISTORY: Mental status change for 2 days., Fall 2 days prior COMPARISON: 07/02/2024.FINDINGS: A single portable radiograph of the chest was performed. The heart is normal in size. There is a vascular congestion. There is decreased lung volume with atelectasis. There is no edema or infiltrate. The bony thorax appears intact. Underinflation with no acute process. 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 Errors in dictation may reflect use of voice recognition software and not all errors in transcripti on may have been detected prior to signing. CT brain without IV contrast Result Date: 07/12/[address] 07/12/2024 5:06 PM HISTORY: [...] are unremarkable. Skull is intact. No skull fracturesare evident. Innumerable lytic lesions scattered throughout the calvarium consistent with patient'sknown diagnosis of multiple myeloma. No pathologic fracture is evident. No acute intracranial process. Innumerable lytic lesions [...] study was performed with techniques to keep radiationdoses as low as reasonably achievable, (ALARA). Individualized [...] granulomatous disease exposure. ABDOMEN: The liver is homogenouswith no focal abnormality. The spleen is unremarkable. Stable left adrenal nodule. The pancreas is unremarkable. The kidneys are unremarkable, without evidence of mass or hydronephrosis. The aorta isnormal in caliber. There is no free fluid or adenopathy. Postsurgical changes to the stomach are noted. PELVIS: The GI tract demonstrates no obstruction. The appendix is normal. The urinary bladder is unremarkable. There is no free fluid, adenopathy, or inflammatory process. Genital organs are unremarkable. No findings to suggest ovarian torsion. BONES: No acute fractures. IMPRESSION: 1. No acuteabnormality identified in the chest/abdomen/pelvis. 2. Stable left adrenal nodule. 3. No definite evidence to suggest cholelithiasis on today's study. 4. No significant interval change in innumerablelytic lesions throughout the bones consistent with patient's known history of multiple myeloma. Images reviewed, interpreted, and dictated by Trino Nguyen M.D. CT chest abdomen pelvis with contrast Result Date: 07/12/[address] 07/12/2024 5:06 PM HISTORY: [...] are unremarkable. Skull is intact. No skull fracturesare evident. Innumerable lytic lesions scattered throughout the calvarium consistent with patient'sknown diagnosis of multiple myeloma. No pathologic fracture is evident. No acute intracranial process. Innumerable lytic lesions [...] study was performed with techniques to keep radiationdoses as low as reasonably achievable, (ALARA). Individualized [...] granulomatous disease exposure. ABDOMEN: The liver is homogenouswith no focal abnormality. The spleen is unremarkable. Stable left adrenal nodule. The pancreas is unremarkable. The kidneys are unremarkable, without evidence of mass or hydronephrosis. The aorta isnormal in caliber. There is no free fluid or adenopathy. Postsurgical changes to the stomach are noted. PELVIS: The GI tract demonstrates no obstruction. The appendix is normal. The urinary bladder is unremarkable. There is no free fluid, adenopathy, or inflammatory process. Genital organs are unremarkable. No findings to suggest ovarian torsion. BONES: No acute fractures. IMPRESSION: 1. No acuteabnormality identified in the chest/abdomen/pelvis. 2. Stable left adrenal nodule. 3. No definite evidence to suggest cholelithiasis on today's study. 4. No significant interval change in innumerablelytic lesions throughout the bones consistent with patient's known history of multiple myeloma. Images reviewed, interpreted, and dictated by Trino Nguyen M.D. CT ABDOMEN/PELVIS WITH IV CONTRAST Result Date: 07/04/2024 CT SCAN OF THE ABDOMEN AND [...] ABDOMEN: There is mild bibasilar atelectasis. The heartis normal in size. The liver is homogenous with no focal abnormality. There may be stones within the gallbladder. The spleen is unremarkable. There is a nonspecific 10 mm left adrenal nodule, new when compared to prior. The pancreas is unremarkable. The kidneys are unremarkable, without evidence ofmass or hydronephrosis. The aorta is normal in [...] disc disease is seen throughout the spine. Possible cholelithiasis. Otherwise, no acute process. Nonspecific left adrenal nodule. Numerous lytic lesions throughout the bones consistent with patient's known history of multiple myeloma. Images reviewed, interpreted, and dictated by Dr. Jaleesa Crabtree. Transcribed by Jaswant Lopez PA-C XR chest 1 view portable / bedside Result Date: 07/04/2024 PORTABLE CHEST. 07/04/2024 12:31 PM HISTORY: Weakness, multiple myeloma, nausea and vomiting. COMPARISON: January 2018. FINDINGS: The cardiac silhouette is normal in size. The mediastinum is unremarkable. The lungs are clear. There is no pneumothorax. No acute cardiopulmonary process. Images reviewed, interpreted, and dictated by Dr. Mert Knight. Transcribed by Silvia Pablo PA-C. Electronically signed by: Chandra Jose MD, 07/19/2024 at 8:13 AM EDT * Claritza Ocampo RN - 07/18/2024 2:20 PM EDT Discharge Plan Progress Note Post-acute facility has started a pre-cert. Signature of Joanne Ocampo RN * Giselle Leonard RD - 07/18/2024 12:[address] [facility] NUTRITION ASSESSMENT AD[facility] Nutrition Assessment The patient is a 64 y.o. female with h/o multiple myeloma (receives chemotherapy for biweekly;missed her last dose), admitted 07/12 with increasing confusion and altered mental status in setting of severe anemia, sepsis with UTI as well as elevated ammonia level . Present on Admission: Sepsis (HCC) Nutrition Evaluation Type: Follow Up Reason for Evaluation: MD consult- TF Subjective Comments: 07/18: High f/up. CLINICAL LABORATORY MANAGER eval today, pt ok'd for heart healthy diet. Intakes establishing. Corpak no longer in place per chart. Oncology following and planning for bone marrow biopsy today -- pt off thefloor for this during RD visit. Will monitor intakes and add ONS prn. Unable to assess wt loss/PCM,will try at next f/up. 07/15: Pt currently on room air. Heart healthy diet ordered with minimal intakes. Consult received for TF recs. Wt hx reviewed in EMR- pt with severe wt loss. Past Medical/Surgical History: 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HCC) Chronic low back pain DVT (deep venous thrombosis) (HCC) History of shingles 12/2019 Hypertension Multiple myeloma (HCC) Peripheral neuropathy Pulmonary embolism (HCC) Past Surgical History: Procedure Laterality Date BONE MARROW BIOPSY TOTAL KNEE ARTHROPLASTY Vitals and Basic Assessment: Vitals: Vitals: 07/18/24 0910 BP: 134/72 Pulse: 91 Resp: 18 Temp: 97.7 ??F (36.5 ??C) SpO2: Oxygen: room air Giuseppe Scale: Giuseppe Scale Score: 17 Last BM: Last BM Date: 07/17/24 GI: Soft abd, +BS Edema: none Skin: DTPI to R buttocks Allergies: Allergies Allergen Reactions Ampicillin Hives and Shortness Of Breath 07/12/24: Tolerated Rocephin Penicillin Hives 07/12/24: Tolerated Rocephin Codeine Indomethacin Morphine Scheduled Medications: acetaminophen acyclovir atorvastatin busPIRone cyanocobalamin dextrose 5 % (D5W) dextrose dilTIAZem docusate sodium DULoxetine [Held by provider] enoxaparin ergocalciferol gabapentin glucagon glucose hydrALAZINE HYDROmorphone insulin regular ipratropium-albuteroL lactulose LORazepam meclizine melatonin metoprolol tartrate ondansetron Or ondansetron PF oxyCODONE pomalidomide potassium chloride 10 mEq, lidocaine (PF) 10 mg/mL (1 %) 10 mg in sodium chloride 0.9 % (NS) 100 mLIVPB rifAXIMin sodium chloride sodium chloride 0.9 % (NS) Drips: D5 @ 50 ml/hr (204 kcal) Pertinent Labs: WBC 3.9, PLT 30, K+ 3.0, Glu 159, FSBG 130/124/125, Ca 7.6, Alb 1.1, AST 38, ALT 11, ammonia 47 Anthropometrics: Ht: Height: 177.8 cm (5' 10 ) Wt: Weight: 98 kg (216 lb) Wt hx: Wt Readings from Last 20 Encounters: 07/12/24 98 kg (216 lb) 07/07/24 98 kg (216 lb) 07/04/24 103 kg (227 lb) 05/26/24 103.2 kg (227 lb 8 oz) 05/12/24 106.6 kg (235 lb) 05/02/24 107.1 kg (236 lb 3.2 oz) 04/24/24 105.1 kg (231 lb 9.6 oz) 04/11/24 108 kg (238 lb) 03/28/24 105.2 kg (232 lb) 03/07/24 106.9 kg (235 lb 9.6 oz) 02/29/24 109 kg (240 lb 6.4 oz) 02/17/24 112.5 kg (248 lb 1.6 oz) 01/11/24 (P) 116.7 kg (257 lb 4 oz) 01/04/24 116.2 kg (256 lb 1.6 oz) 12/14/23 120.2 kg (265 lb) 11/16/23 119 kg (262 lb 4.8 oz) 10/19/23 121.9 kg (268 lb 11.2 oz) 09/21/23 122.4 kg (269 lb 12.8 oz) 08/24/23 125.2 kg (276 lb) 07/27/23 125.9 kg (277 lb 8 oz) BMI: Body mass index is 30.99 kg/m??. Wt Change: 9% wt loss in 3 months, 15% loss in 6 months, 22% loss in 1 year UBW: UTO IBW: 150# Percent IBW: 144% Adj BW: 76 kg Estimated Needs: 3345-2221 kcal/day (MSJ x 1.2-1.3, less 250) vs 0473-7254 kcal/day (25-27 kcal/kg Adj BW) 90-105 g protein/day (90-105 g/kg Adj BW) Current Nutrition Intake: Diet Orders: Diet Order(s): Heart Healthy Diet Supplements: none Intake: establishing Enteral Nutrition? no Diet Experience and Nutrition History: Previous Nutrition Education: unknown Diet Education Provided: monitor for needs Nutrition Focused Physical Exam: Date performed: unable to assess at this time Physical signs of fat or muscle wasting with severity: --- Energy intake hx: --- Wt loss: severe wt loss noted per EMR Assessment of Malnutrition: Unable to complete malnutrition evaluation at this time. Nutrition Diagnoses: Problem #1: Inadequate Oral Intake Etiology: AMS/confusion Signs/Symptoms: intakes establishing Status: Ongoing Problem #2: Increased Nutrient Needs Etiology: skin integrity Signs/Symptoms: DTPI to R buttocks Status: Ongoing Problem #3: Unintended Weight Loss Etiology: unsure Signs/Symptoms: 22% loss in 1 year Status: Ongoing Nutrition Interventions and Recommendations: Collaboration with other providers, General, FIGMD, and Commercial beverage Nutrition Monitoring and Goals: 1. Continue heart healthy diet per CLINICAL LABORATORY MANAGER. RD to monitor need for ONS Goal: safe PO intake, >50% 2. Monitor elytes, recommend replacing prn. Goal: wnls 3. Assess for PCM at f/up Goal: dx/rule out PCM 4. Obtain wt 2x weekly Goal: avoid involuntary significant wt change Nutrition Risk Level: High Risk Giselle Leonard RD * VAL Berman/Jessa - 07/18/2024 11:14 AM EDT Images from the original note were not included. Inpatient Occupational Therapy Treatment Note Patient Name: Asher Daniel Date of : 1960 Date of Treatment: 07/18/24 Start Time: 11:14 Stop Time: 11:58 Session Duration: 44 minutes This patient is a 64 y.o. female admitted on 07/12/2024 with Transient alteration of awareness [R40.4] Anemia [D64.9] Sepsis (HCC) [A41.9]. 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HCC) Chronic low back pain DVT (deep venous thrombosis) (HCC) History of shingles 12/2019 Hypertension Multiple myeloma (HCC) Peripheral neuropathy Pulmonary embolism (HCC) Past Surgical History: Procedure Laterality Date BONE MARROW BIOPSY TOTAL KNEE ARTHROPLASTY General Visit type: Treatment Approved by: Nurse Dahl Patient disposition upon entry: Patient verified by name, Patient verified by date of , Visitor/family present, Call light/pull cord in reach, Side rails up Precautions Weightbearing status: No restrictions Precautions: Fall risk Isolation precautions: Standard LDA/Brace/Protective equipment: Lines, drains, and airways: peripheral IV, telemetry Subjective Subjective: Pt agreeable Son and client motivated to participate in OT Pain No-patient has no complaints of pain Cognition Cognition: Overall cognitive status: Impaired Arousal/alertness: Generalized responses. Patient reacts inconsistently and nonpurposefully to stimuli in a nonspecific manner. Attention span: Difficulty attending to directions Memory: Decreased recall of recent events Orientation level: Oriented to person, Disoriented to place, Disoriented to time, Disoriented to situation Following commands: Follows one step commands with increased time Follows one step commands with repetition Safety judgment: Decreased awareness of need for assistance Decreased awareness of need for safety Objective Vitals Stable Bed Mobility Supine to sit: Minimal assistance, 1 person assist, Head of bed elevated, Use of bedrails Transfers Sit to stand:Moderate assistance, 1 person assist, Gait belt used, Rolling walker used, attempted to tsf to BSC,but client unable to pivot on BLE Stand to sit:Minimal assistance, 1 person assist, Gait belt used, Rolling walker used Balance Static sitting balance:Good: Patient able to maintain balance without handheld support; limited postural sway Dynamic sitting balance:Good: Patient accepts moderate challenge; able to maintain balance while picking object off the floor Static standing balance:Fair: Patient able to maintain balance with handheld support, may require occasional minimal assistance Dynamic standing balance:Poor: Patient unable to accept challenge or move without loss of balance Activity Tolerance Patient limited with activity/intervention due to fatigue, deconditioning, weakness, anxiety, cognitive impairment, and lethargy Treatment Client sat up to EOB with min A for LE movement. At EOB, client wanted to use the bathroom. Client stood up 3 times with mod A and attempted to pivot to BSC, but unable to take any steps. She expressed fear of falling and demonstrated anxious behavior. Son present and he attempted to complete BSC tsf, but unable to assist client with pivot tsf. Client sat EOB x 15' while participating in functional reach activities at waist to above head level. Client unable to reach floor or bring feet to opposite thigh to josh/doff socks due to decreased cognition. Client did perform nail cleaning while sitting EOB with setup with supplies and no LOB. Assessment Assessment Patient demonstrated improved performance during this treatment session. Patient continues to present with decreased strength, decreased endurance, decreased balance, decreased safety awareness, impaired cognition. These deficits currently impact the patient's ability to perform ADLs and functionalmobility, putting them at an increased risk for increased falls, decreased quality of life, poor outcomes, increased risk of pressure injury, further functional decline, further decreased strength, increased caregiver burden. Patient will benefit from continued OT services to address the aforementioned functional deficits. Plan Recommendations Discharge recommendations: Discharge recommendations pending progression of acute hospital stay secondary to the patient's medical status DME recommendations: Unable to make adaptive/DME recommendations at this time. Treatment Plan: Adaptive equipment training, ADL training, DME recommendations , Energy conservation instruction, Functional mobility/transfer training, Home modification recommendations , Home program instruction, Other activities to increase UE function, Pain management, Patient/family/caregiver education OT Frequency/Duration: 3x/week for 14 days Goals Grooming: grooming with setup Lower body dressing: donning and doffing lower body clothing with setup. Toileting: toileting with setup. Bed mobility: bed mobility with standby assist.- Progressing Functional transfers: stand pivot transfer with standby assist. Target Date: 07/31/2024 Goals were discussed with family Education Patient/Visitors educated on safety, role of occupational therapy, patient's plan of care, ADLs, functional mobility and following, they were able to verbalize understanding. Patient Disposition Upon Leaving Patient disposition upon leaving: Sitting edge of bed, All needs met and within reach, Call light/pull cord in reach, son present If this patient discharges prior to next therapy session, this note serves as the patient's discharge summary. Electronically signed by VAL Berman/Jessa - 07/18/2024 - 1:02 PM EDT * Claritza Ocampo RN - 07/18/2024 11:02 AM EDT Discharge Plan Progress Note Pt [facility], son had just left the room, will attempt to call him. Claritza Ocampo RN * Chandra Jose MD - 07/18/2024 10:12 AM EDT PCP: MARILEE Muñoz Date of Admission: 07/12/2024 Date of Discharge Reason for Hospitalization Asher Daniel is a 64 y.o. female with PMHx of multiple myeloma which she is getting chemotherapy for biweekly and missed her last dose was brought in by her son with increasing confusion and altered mental status. Patient is intermittently confused. She has had multiple falls at home andhas an abrasion to right forehead. Pt is confused and able to answer some questions but most answers don't make sense. She has some lower abd discomfort. Consultations obtained -Physical and occupational therapy services -Case management -Oncology hematology -Gastroenterology -Neurology services -Infectious disease services Procedures performed -Bone marrow biopsy aspiration per oncology ordered Hospital course/follow-up 07/13 please note this is my first visit with this patient, she is somewhat somnolent at the time of my interaction no family in the room, marked anemia noted platelets also on the low side imaging studies reviewed patient appears quite sick at the moment H&P extensively reviewed as well 07/14 I have discussed extensively yesterday with the son over the phone and updated him about planof care, patient is quite sick, she is rather in critical condition, this morning she is still somnolent although easily arousable, low- grade fever overnight noted also received some Dilaudid, this morning I called and discussed with the nursing staff extensively as well, ammonia level slightly trending down after I initiated lactulose, prognosis not great, did receive blood transfusions, oncology hematology already on board here, due to her somnolent I would like to rule out hypercarbia therefore I will check arterial blood gas this was also communicated to the nursing staff, if patient deter iorates low threshold to transfer her to ICU critical illness unfortunately continues prognosis notgreat 07/15 patient seen and evaluated, remains quite sick overall, she is somnolent, unable to participate in history with me, son present in the room today, had long discussion with him today at bedside previously discussed with him extensively over the phone multiple times, patient had spiked a fever Tmax close 202 ??F last night, cultures are negative, she is on antibiotic therapy at present time, due to fever I will consult infectious disease services, patient has been placed on high-dose dexamethasone under the guidance of oncology hematology for underlying multiple myeloma, seen by gastroenterology and neurology services, rifaximin and lactulose has been added, ammonia level worsening, seems like patient unable to take oral medications on a consistent basis, I believe her prognosis not great at this time, plan discussed with the son extensively at bedside patient resisted full code 07/16 patient had good night seen and evaluated son at bedside mentation a lot better more awake follows some commands fever resolving antibiotics enhanced antiviral added sodium 149 potassium low son is happy with her progress patient's platelets hemoglobin remains low secondary to multiple myeloma, ammonia levels markedly improved after receiving rifaximin as well as lactulose 07/17 patient seen and evaluated, resting, yesterday late afternoon events noted when she went intotachyarrhythmia, now on Cardizem drip, Lovenox added per on- call physician, more awake resting communicating son at bedside overall happy with her progress, no labs out for today at the time of this dictation potassium was low magnesium normal, she remains on antivirals, I discussed with infectiousdisease yesterday multiple ongoing issues noted at present time although mentation fraga she is improving slowly 07/18 Patient was seen and examined today. She was much more alert and awake today and was able to answer questions properly. She feels overall better. She continues to have some back pain. Patient'sson in the room but unfortunately he slept throughout my encounter today did not wake up, now patient going for bone marrow studies per oncology, hemoglobin worse, platelet worse, full dose Lovenox on board which will be very problematic with worsening cytopenias, I worry that she is not toleratingfull dose blood thinners at this point, therefore I will hold it for now given risks in my opinion are much more than benefit, patient's ammonia levels improving, discussed with the case management in regards to discharge planning discussed with infectious disease as well 07/19 07/20 07/21 07/22 07/23 Diagnosis: -Sepsis in an immunocompromise host, present upon admission, source appears to be genitourinary -Suspected UTI/acute cystitis -Acute metabolic encephalopathy, now improving, concern for encephalitis, antiviral added per oncology -Markedly elevated ammonia level, now improving, seen by gastroenterology -Marked symptomatic anemia with thrombocytopenia in the setting of known multiple myeloma -Atrial fibrillation with rapid ventricular response -Documented history of DVT/PE -chronically on Xarelto -Essential hypertension -History of peripheral neuropathy -Electrolyte imbalance with hypernatremia and hypokalemia Plan 07/13 continue broad-spectrum antibiotics, follow-up on pending cultures, continue gentle IV fluid support, monitor volume status closely, continue to monitor hemoglobin hematocrit, transfuse blood as needed, monitor platelets, watch mentation closely, continue subset of home meds as indicated, monitor labs closely, PT OT roxy, plan discussed with the patient but she is poorly cognizant of the situation, Complex medical issues with acute on chronic multiple co morbidities requiring multidisciplinary management. Holding Xarelto in the setting of marked anemia, oncology hematology consultation,in regards to elevated ammonia level adding lactulose and will monitor ammonia levels closely at this point, plan discussed with the nursing staff this morning 07/14 I will continue lactulose, continue to monitor ammonia levels on daily basis, I would like tocheck ABG to rule out hypercarbia as etiology of somnolence and mentation related issues, increase activity with physical therapy as much as possible continue lactulose at this point, continue to hold Xarelto up until hemoglobin improves further, follow oncology hematology recommendations, prognosis not great, discussed with the nursing extensively yesterday extensively discussed with the son as well updated him about plan of care and patient's poor prognosis, I have spent 32 minutes of critical care time taking care of this patient today 07/15 I will continue antibiotic therapy, enhancing coverage at this time given worsening fever, consulting infectious disease for their advice and input given patient's immunocompromise status, watch mentation closely, continue rifaximin and lactulose if she is able to take it, continue steroid added per oncology hematology, watch mentation closely, oncology thinks her prognosis is not great dueto advanced multiple myeloma, plan discussed with the patient's son extensively at bedside, discussed with the nursing staff as well 07/16 monitor electrolytes and replace as needed, continue antibiotics and antiviral per infectiousdisease, monitor labs closely monitor CBC on daily basis increase activity with physical therapy plan of care extensively discussed with son at bedside yet again, Complex medical issues with acute onchronic multiple co morbidities requiring multidisciplinary management. 07/17 continue gentle IV fluids, Lovenox added, needs to be cautious with worsening anemia worsening thrombocytopenia on full dose anticoagulation therapy will monitor CBC closely, continue antibiotics antivirals under the guidance of infectious disease services, I discussed with ID services yesterday, obtaining transthoracic echo, check TSH, cardiology consultation requested and pending, watch mentation plan extensively discussed with the son at bedside yet again 07/18 worsening CBC on full dose Lovenox, holding Lovenox given risk of more than the benefit, bonemarrow exam ordered per oncology, watch mentation closely markedly improved, antibiotics and antiviral deferred to infectious disease services, watch mentation closely, multiple issues noted discussed with the case management plan of care prognosis overall guarded 07/19 07/20 07/21 07/22 DCP: Pt wants [facility] Voice compressor operator portable technology ([employer]) is used for dictation of this note and sound-alike words might be erroneously placed despite reviewing the note for accuracy. Errors in dictation mayreflect use of voice recognition software and not all errors in compressor operator portable may have been detected prior to signing Hospital Medications Scheduled Meds: acetaminophen 650 mg rectal Once acyclovir 690 mg intravenous Q8H IVPB Stopped at 07/18/24512 atorvastatin 10 mg oral Daily 10 mg at 07/18/24912 busPIRone 15 mg oral TID 15 mg at 07/18/24912 cyanocobalamin 1,000 mcg oral Daily 1,000 mcg at 07/18/24912 DULoxetine 30 mg oral Daily 30 mg at 07/18/24912 [Held by provider] enoxaparin 1 mg/kg subcutaneous Q12H 100 mg at 07/18/24911 ergocalciferol 50,000 Units oral Weekly 50,000 Units at 07/12/24 3511 gabapentin 100 mg oral TID 100 mg at 07/18/24912 insulin regular 0-12 Units subcutaneous Q6H EDUARD 2 Units at 07/16/24 0126 lactulose 20 g oral TID 20 g at 07/18/24911 metoprolol tartrate 12.5 mg feeding tube BID 12.5 mg at 07/18/24 1007 pomalidomide 1 capsule oral Daily rifAXIMin 550 mg oral BID 550 mg at 07/18/24912 Continuous Infusions: dextrose 5 % (D5W) 50 mL/hr (07/17/242021) dilTIAZem 5 mg/hr (07/18/24930) PRN Meds:. acetaminophen dextrose docusate sodium glucagon glucose hydrALAZINE HYDROmorphone ipratropium-albuteroL LORazepam meclizine melatonin ondansetron Or ondansetron PF oxyCODONE sodium chloride Physical Exam Vitals: 07/18/24909 BP: 134/72 Pulse: 91 Resp: 18 Temp: 97.7 ??F (36.5 ??C) SpO2: General: NAD HEENT: Generally negative Neck: No JVD noted CVS: S1, S2, no S3 or S4 Lungs: Equal air entry symmetrical chest expansion GI: Soft, audible bowel sounds Neurological: Nonfocal Musculoskeletal: Generally unremarkable Skin: Warm without any noted rashes Labs & Imaging Recent Results (from the past 24 hour(s)) Ammonia Collection Time: 07/17/24 10:31 AM Result Value Ref Range Ammonia 28 11 - 32 ??mol/L Glucose, Nova Meter Collection Time: 07/17/24 11:44 AM Result Value Ref Range POC-GLUCOSE 113 (H) 70 - 110 mg/dL [employer] Consultant [id number] Glucose, Nova Meter Collection Time: 07/17/24 6:08 PM Result Value Ref Range POC-GLUCOSE 118 (H) 70 - 110 mg/dL [employer] Consultant [id number] Glucose, Nova Meter Collection Time: 07/18/24 12:57 AM Result Value Ref Range POC-GLUCOSE 130 (H) 70 - 110 mg/dL [employer] Consultant [id number] Basic Metabolic Panel Collection Time: 07/18/24 5:13 AM Result Value Ref Range Sodium 146 136 - 146 meq/L Potassium 3.0 (L) 3.5 - 5.1 meq/L Chloride 117 (H) 102 - 112 meq/L CO2 20 (L) 21 - 32 meq/L Anion Gap 12 9 - 20 BUN 17 7 - 22 mg/dL Creatinine 0.52 (L) 0.55 - 1.02 mg/dL BUN/Creatinine 33 (H) 8 - 20 Glucose 159 (H) 74 - 106 mg/dL Calcium 7.6 (L) 8.4 - 10.1 mg/dL Osmolality Calc 295.5 eGFR (mL/min/1.73m2) >60 >=60 mL/min/1.73m2 CBC - Hemogram ([facility]) Collection Time: 07/18/24 5:13 AM Result Value Ref Range WBC 3.9 (L) 4.0 - 10.0 K/??L RBC 2.40 (L) 3.93 - 5.22 M/??L Hemoglobin 7.5 (L) 11.2 - 15.7 GM/DL Hematocrit 23.4 (L) 34.1 - 44.9 % MCV 98 (H) 79 - 95 fL MCH 31.3 25.6 - 32.2 pg MCHC 32.1 (L) 32.2 - 35.5 GM/DL RDW 17.5 (H) 11.7 - 14.4 % Platelets 30 (LL) 140 - 375 K/CU MM MPV 12.8 (H) 9.4 - 12.3 fL TSH Collection Time: 07/18/24 5:13 AM Result Value Ref Range TSH 0.230 (L) 0.358 - 3.740 uIU/mL Ammonia Collection Time: 07/18/24 5:13 AM Result Value Ref Range Ammonia 47 (H) 11 - 32 ??mol/L Glucose, Nova Meter Collection Time: 07/18/24 6:15 AM Result Value Ref Range POC-GLUCOSE 124 (H) 70 - 110 mg/dL [employer] Consultant [id number] XR chest AP portable Result Date: 07/13/2024 PORTABLE CHEST HISTORY: Mental status change for 2 days., Fall 2 days prior COMPARISON: 07/02/2024.FINDINGS: A single portable radiograph of the chest was performed. The heart is normal in size. There is a vascular congestion. There is decreased lung volume with atelectasis. There is no edema or infiltrate. The bony thorax appears intact. Underinflation with no acute process. Images reviewed, interpreted, dictated and electronically signed by Mert Knight MD Voice compressor operator portable technology ([employer]) is used for the dictation of this note and sound-alike words might be erroneously placed despite reviewing this note for accuracy. Errors in dictation may reflect use of voice recognition software and not all errors in transcripti on may have been detected prior to signing. CT brain without IV contrast Result Date: 07/12/[address] 07/12/2024 5:06 PM HISTORY: [...] are unremarkable. Skull is intact. No skull fracturesare evident. Innumerable lytic lesions scattered throughout the calvarium consistent with patient'sknown diagnosis of multiple myeloma. No pathologic fracture is evident. No acute intracranial process. Innumerable lytic lesions [...] study was performed with techniques to keep radiationdoses as low as reasonably achievable, (ALARA). Individualized [...] granulomatous disease exposure. ABDOMEN: The liver is homogenouswith no focal abnormality. The spleen is unremarkable. Stable left adrenal nodule. The pancreas is unremarkable. The kidneys are unremarkable, without evidence of mass or hydronephrosis. The aorta isnormal in caliber. There is no free fluid or adenopathy. Postsurgical changes to the stomach are noted. PELVIS: The GI tract demonstrates no obstruction. The appendix is normal. The urinary bladder is unremarkable. There is no free fluid, adenopathy, or inflammatory process. Genital organs are unremarkable. No findings to suggest ovarian torsion. BONES: No acute fractures. IMPRESSION: 1. No acuteabnormality identified in the chest/abdomen/pelvis. 2. Stable left adrenal nodule. 3. No definite evidence to suggest cholelithiasis on today's study. 4. No significant interval change in innumerablelytic lesions throughout the bones consistent with patient's known history of multiple myeloma. Images reviewed, interpreted, and dictated by Trino Nguyen M.D. CT chest abdomen pelvis with contrast Result Date: 07/12/[address] 07/12/2024 5:06 PM HISTORY: [...] are unremarkable. Skull is intact. No skull fracturesare evident. Innumerable lytic lesions scattered throughout the calvarium consistent with patient'sknown diagnosis of multiple myeloma. No pathologic fracture is evident. No acute intracranial process. Innumerable lytic lesions [...] study was performed with techniques to keep radiationdoses as low as reasonably achievable, (ALARA). Individualized [...] granulomatous disease exposure. ABDOMEN: The liver is homogenouswith no focal abnormality. The spleen is unremarkable. Stable left adrenal nodule. The pancreas is unremarkable. The kidneys are unremarkable, without evidence of mass or hydronephrosis. The aorta isnormal in caliber. There is no free fluid or adenopathy. Postsurgical changes to the stomach are noted. PELVIS: The GI tract demonstrates no obstruction. The appendix is normal. The urinary bladder is unremarkable. There is no free fluid, adenopathy, or inflammatory process. Genital organs are unremarkable. No findings to suggest ovarian torsion. BONES: No acute fractures. IMPRESSION: 1. No acuteabnormality identified in the chest/abdomen/pelvis. 2. Stable left adrenal nodule. 3. No definite evidence to suggest cholelithiasis on today's study. 4. No significant interval change in innumerablelytic lesions throughout the bones consistent with patient's known history of multiple myeloma. Images reviewed, interpreted, and dictated by Trino Nguyen M.D. CT ABDOMEN/PELVIS WITH IV CONTRAST Result Date: 07/04/2024 CT SCAN OF THE ABDOMEN AND [...] ABDOMEN: There is mild bibasilar atelectasis. The heartis normal in size. The liver is homogenous with no focal abnormality. There may be stones within the gallbladder. The spleen is unremarkable. There is a nonspecific 10 mm left adrenal nodule, new when compared to prior. The pancreas is unremarkable. The kidneys are unremarkable, without evidence ofmass or hydronephrosis. The aorta is normal in [...] disc disease is seen throughout the spine. Possible cholelithiasis. Otherwise, no acute process. Nonspecific left adrenal nodule. Numerous lytic lesions throughout the bones consistent with patient's known history of multiple myeloma. Images reviewed, interpreted, and dictated by Dr. Jaleesa Crabtree. Transcribed by Jaswant Lopez PA-C XR chest 1 view portable / bedside Result Date: 07/04/2024 PORTABLE CHEST. 07/04/2024 12:31 PM HISTORY: Weakness, multiple myeloma, nausea and vomiting. COMPARISON: January 2018. FINDINGS: The cardiac silhouette is normal in size. The mediastinum is unremarkable. The lungs are clear. There is no pneumothorax. No acute cardiopulmonary process. Images reviewed, interpreted, and dictated by Dr. Mert Knight. Transcribed by Silvia Pablo PA-C. Electronically signed by: Chandra Jose MD, 07/18/2024 at 8:13 AM EDT * Gerson Aguirre MD - 07/18/2024 9:45 AM EDT [facility] Patient Name: Asher Daniel : 1960 Admission Date: 07/12/2024 Requesting Provider: Dr. Jose Evaluating Physician: Gerson Aguirre MD Chief Complaint: AMS Reason for Consultation: fever History of present illness: Patient is a 64 y.o. female with history of asthma, chronic lower back pain, DVT, HTN, Multiple myeloma on chemotherapy, PTE, seen today for fever. No history is available from the patient due to altered mental status and her mental status was last normal on Wednesday. Presented to the ED with complaints of recent fall, mental status changes, anorexia, and weakness. She has been treated for a recentUTI by her PCP. She was seen in the ED 07/04 with same complaints, CT revealing numerous lytic lesions throughout bones consistent with MM, CXR clear, UA with 500 LE, and urine culture with Klebsiella, and she was discharged home ojn Bactrim. Back to ED with above complaints. Tmax of 102 degrees. Ad mitting labs with WBC 6.1, plt 64, hgb 7.2, Scr 0.8, PCT 0.39, ALT 10 , AST 36, total bilirubin 1.2, and NH3 81. CXR without acute process, CT without acute abnormality chest, abdomen, pelvis, lytic lesions unchanged. HCT no acute process, innumerable lytic lesions throughout calvarium consistent with MM. Liver Us with fatty changes, no focal liver lesion noted. CBD 9.6 mm, abnormally dilated. Currently on Ceftriaxone and we were consulted for evaluation and treatment. Family in room. She will open eyes, grimace. 07/16/24: She remains afebrile without leukocytosis. Corpak removed due to malpostioning. She appears more alert this am. Does not follow commands. Son at bedside. 07/17/24: the patient is alert and following some simple commands today and trying to answer some questions although responses are minimal and not talking much. No fevers. Plt count remains low at 37today. Wbc is normal at 5.2. Cr is stable at 0.6. ammonia level has improved. 07/18/24: denies headache. Answering a few simple questions. Her son is trying to help her swallow her oral medications with water at bedside but she is not cooperating. No fevers. Ongoing cytopeniaswith downtrending plt count. BM biopsy planned for today. Hem/onc following. Review of Systems: Unable to provide any history due to encephalopathy 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HCC) Chronic low back pain DVT (deep venous thrombosis) (HCC) History of shingles 12/2019 Hypertension Multiple myeloma (HCC) Peripheral neuropathy Pulmonary embolism (HCC) Past Surgical History: Procedure Laterality Date BONE MARROW BIOPSY TOTAL KNEE ARTHROPLASTY Social History Socioeconomic History Marital status: / Spouse name: Not on file Number of children: 4 Years of education: Not on file Highest education level: Not on file Occupational History Not on file Tobacco Use Smoking status: Never Smokeless tobacco: Never Vaping Use Vaping Use: Never used Substance and Sexual Activity Alcohol use: Never Drug use: Never Sexual activity: Not on file Other Topics Concern Not on file Social History Narrative Not on file Social Determinants of Health Financial Resource Strain: Low Risk (07/18/2024) Financial Resource Strain : 0 Food Insecurity: No Food Insecurity (07/18/2024) Food Insecurity : 0 : 0 Transportation Needs: No Transportation Needs (07/18/2024) Transportation Needs : 2 Physical Activity: Inactive (07/12/2024) Physical Activity : 0 Stress: No Stress Concern Present (07/18/2024) Stress : 1 Social Connections: Low Risk (07/18/2024) Family and Community Support : 0 : 0 Intimate Partner Violence: Not on file Housing Stability: Low Risk (07/18/2024) Housing Stability : 0 : 0 Family History Problem Relation Age of Onset Dementia Mother Heart attack Father Allergies Allergen Reactions Ampicillin Hives and Shortness Of Breath 07/12/24: Tolerated Rocephin Penicillin Hives 07/12/24: Tolerated Rocephin Codeine Indomethacin Morphine @Scheduled Meds: acyclovir 690 mg intravenous Q8H IVPB Stopped at 07/18/24 1309 atorvastatin 10 mg oral Daily 10 mg at 07/18/24 0913 busPIRone 15 mg oral TID 15 mg at 07/18/24 1538 cyanocobalamin 1,000 mcg oral Daily 1,000 mcg at 07/18/24912 DULoxetine 30 mg oral Daily 30 mg at 07/18/24 09 [Held by provider] enoxaparin 1 mg/kg subcutaneous Q12H 100 mg at 07/18/24 0912 ergocalciferol 50,000 Units oral Weekly 50,000 Units at 07/12/24 2254 gabapentin 100 mg oral TID 100 mg at 07/18/24 1538 insulin regular 0-12 Units subcutaneous Q6H EDUARD 2 Units at 07/16/24 0126 lactulose 20 g oral BID metoprolol tartrate 12.5 mg feeding tube BID 12.5 mg at 07/18/24 1007 pomalidomide 1 capsule oral Daily potassium chloride 10 mEq, lidocaine (PF) 10 mg/mL (1 %) 10 mg in sodium chloride 0.9 % (NS) 100 mLIVPB 10 mEq intravenous Q1H EDUARD 10 mEq at 07/18/24 1400 rifAXIMin 550 mg oral BID 550 mg at 07/18/24 0913 Continuous Infusions: dextrose 5 % (D5W) 50 mL/hr (07/17/242021) dilTIAZem Stopped (07/18/24 1023) PRN Meds:. acetaminophen dextrose docusate sodium glucagon glucose hydrALAZINE HYDROmorphone ipratropium-albuteroL LORazepam meclizine melatonin ondansetron Or ondansetron PF oxyCODONE sodium chloride Physical Exam: Vital Signs Vitals: 07/18/24 0910 07/18/24 1408 07/18/24 1417 07/18/24 1426 BP: 134/72 (!) 152/89 (!) 147/75 (!) 149/87 Pulse: 91 86 81 76 Resp: 18 14 14 14 Temp: 97.7 ??F (36.5 ??C) TempSrc: SpO2: 100% 100% 100% Weight: Height: GENERAL more awake today, less confused. in no acute distress. Less ill appearing but still frail HEENT: Normocephalic, atraumatic. No conjunctival injection. NECK: Supple HEART: RRR; No murmur. LUNGS: CTAB. Normal respiratory effort. ABDOMEN: Soft, non-tender. nondistended. EXT: No cyanosis, clubbing or edema. No palpable cord : Without Monet catheter. MSK: FROM without joint effusions noted arms/legs. SKIN: no generalized rashes noted. No peripheral stigmata of infective endocarditis NEURO: more awake and alert. Following some simple commands. Answering some simple questions but still seems somewhat confused Laboratory Data Lab Results Component Value Date WBC 3.9 (L) 07/18/2024 HGB 7.5 (L) 07/18/2024 HCT 23.4 (L) 07/18/2024 MCV 98 (H) 07/18/2024 PLT 30 (LL) 07/18/2024 Lab Results Component Value Date GLUCOSE 125 (H) 07/18/2024 CALCIUM 7.6 (L) 07/18/2024 NA 146 07/18/2024 K 3.0 (L) 07/18/2024 CO2 20 (L) 07/18/2024 CL 117 (H) 07/18/2024 BUN 17 07/18/2024 CREATININE 0.52 (L) 07/18/2024 Estimated Creatinine Clearance: 60.7 mL/min (A) (by C-G formula based on SCr of 0.52 mg/dL (L)). Lab Results Component Value Date ALT 11 (L) 07/17/2024 AST 38 (H) 07/17/2024 ALKPHOS 45 07/17/2024 BILITOT 0.5 07/17/2024 Lab Results Component Value Date CRP < 0.2 (L) 06/17/2021 Lab Results Component Value Date SEDRATE 13 06/17/2021 Microbiology: Microbiology Results (last 7 days) Procedure Component Value Units Date/Time Blood Culture [[id number]] Collected: 07/12/24 162 Order Status: Completed Specimen: Blood Updated: 07/17/24 170 Result No growth in 5 days Blood Culture [[id number]] Collected: 07/12/24 162 Order Status: Completed Specimen: Blood Updated: 07/17/24 170 Result No growth in 5 days SARS-COV2/RT-PCR [[id number]] (Normal) Collected: 07/12/24 164 Order Status: Completed Specimen: Nasopharyngeal Swab Updated: 07/12/24 173 SARS-COV2/RT-PCR Negative Narrative: Testing was performed using RT-PCR methodology approved for use under FDA Emergency Use Authorization only. Negative results do not preclude infection with the SARS-CoV-2 virus and should not be usedas the sole basis of a patient treatment or public health decisions. Negative results must be considered in the context of an individual's recent exposures, history, and presence of clinical signs/symptoms. Follow-up testing should be performed according to the current CDC recommendations. Blood Culture [[id number]] Order Status: Canceled Specimen: Blood Blood Culture [[id number]] Order Status: Canceled Specimen: Blood Radiology: Radiology Results (last 3 days) Procedure Component Value Units Date/Time CT BIOPSY SITE - BONE MARROW [[id number]] Collected: 07/18/24 153 Order Status: Completed Updated: 07/18/241536 Narrative: CT GUIDED BONE MARROW BIOPSY HISTORY: Severe anemia and thrombocytopenia. ATTENDING PHYSICIAN: Dr. Garrison PHYSICIAN OPERATING ROOM TECH: Serge Castillo PA-C PROCEDURE: This study was [...] and left the department in good condition. Impression: Status post CT guided bone marrow biopsy without immediate complication. PROCEDURAL SEDATION: 1 mg of IV Versed and 50 mcg of Fentanyl were administered. Continuous vital sign monitoring was used. An RN was present during the sedation process. Overall sedation time was 15 minutes. Images reviewed, interpreted, and dictated by Dr. Cristi Garrison. Transcribed by Serge Castillo PA-C. XR chest AP portable [[id number]] Collected: 07/16/24 0832 Order Status: Completed Updated: 07/16/24 163 Narrative: PORTABLE CHEST; HISTORY: Precordial chest pain. COMPARISON: July 12, 2024. FINDINGS: The heart is stable in size. There are low lung volumes with perihilar vascular enlargement and crowding. There is no pneumothorax. Impression: Stable exam. Images reviewed, interpreted, and dictated by Dr. Zac Ordoñez. Transcribed by Stacy Marte PA-C. XR KUB PORTABLE [[id number]] Collected: 07/15/24 1254 Order Status: Completed Updated: 07/15/241947 Narrative: SINGLE VIEW ABDOMEN HISTORY: Corpak placement. ABDOMEN: Single view of the abdomen demonstrates a nonobstructive bowel gas pattern. No abnormal calcifications are identified. There is a feeding tube with the tip in the stomach. Impression: Feeding tube tip in the stomach. Images reviewed, interpreted, and dictated by Dr. Zac Ordoñez. Transcribed by Stacy Marte PA-C. Impression: - Fever, source unclear; ? Medications/drug fever vs. HSV encephalitis. Urinalysis was not concerning for UTI and blood cultures remain NGTD. 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 No acute abnormalities noted on recent CT C/A/P. LFTs were repeat and were WNL so cholangitis seems unlikely. - Acute toxic/metabolic encephalopathy- mental status was last normal on 07/10/24 per family. Seemsmore alert today and trying to answer some simple questions and able to follow some simple commands. She is able to say a few words but was apparently conversing more with her son earlier. - Recent Klebsiella UTI, was on Bactrim - CBD dilatation, 9.6mm per liver US, not noted on CT - no indication for ERCP per GI note, now on Rifaximin, Lactulose - Multiple myeloma, s/p BM transplant- now on Pomalidomide but has not had chemo in a month - Anemia - Thrombocytopenia- worsening - DVT on Eliquis - Hyperammonemia- lactulose - History of PCN allergy- Hives PLAN: - follow blood cultures, negative so far - could consider LP depending on clinical course and GOC. She has been on anticoagulation so this would need to be held prior to LP - closely monitor off antibiotics - Acyclovir 10 mg/kg IV q 8hrs for now. Could consider switching to oral valtrex 1g PO TID soon if she is tolerating PO meds ok. May consider a 14 day course empirically given her fevers and mental status improved after starting acyclovir although her mental status improvement could have been due to improvement in her ammonia levels. - Hem/onc service following in the setting of her MM and cytopenias. BM biopsy done today with results pending. Copied text in this note has been reviewed and is accurate as of 07/18/24 Complex MDM Gerson Aguirre MD 07/18/2024 * Mara Rashaun, SHARAD - 07/18/2024 9:41 AM EDT Subjective No complaints Objective Last Recorded Vitals Blood pressure 134/72, pulse 91, temperature 97.7 ??F (36.5 ??C), resp. rate 18, height 1.778 m (5'10 ), weight 98 kg (216 lb), SpO2 100 %. Physical Exam Vitals reviewed. Constitutional: Appearance: Normal appearance. She is normal weight. HENT: Head: Normocephalic and atraumatic. Mouth/Throat: Mouth: Mucous membranes are moist. Pharynx: Oropharynx is clear. Eyes: Extraocular Movements: Extraocular movements intact. Pupils: Pupils are equal, round, and reactive to light. Cardiovascular: Rate and Rhythm: Normal rate. Rhythm irregular. Pulses: Normal pulses. Heart sounds: Normal heart sounds. Pulmonary: Effort: Pulmonary effort is normal. Breath sounds: Normal breath sounds. Abdominal: General: Abdomen is flat. Bowel sounds are normal. Palpations: Abdomen is soft. Musculoskeletal: Right lower leg: No edema. Left lower leg: No edema. Skin: General: Skin is warm and dry. Neurological: General: No focal deficit present. Mental Status: She is alert and oriented to person, place, and time. Psychiatric: Mood and Affect: Mood normal. Behavior: Behavior normal. Labs: Results for orders placed or performed during the hospital encounter of 07/12/24 (from the past 24 hour(s)) Ammonia Status: Normal Collection Time: 07/17/24 10:31 AM Result Value Ref Range Ammonia 28 11 - 32 ??mol/L Glucose, Nova Meter Status: Abnormal Collection Time: 07/17/24 11:44 AM Result Value Ref Range POC-GLUCOSE 113 (H) 70 - 110 mg/dL [employer] Consultant [id number] Glucose, Nova Meter Status: Abnormal Collection Time: 07/17/24 6:08 PM Result Value Ref Range POC-GLUCOSE 118 (H) 70 - 110 mg/dL [employer] Planning Consultant [id number] Glucose, Nova Meter Status: Abnormal Collection Time: 07/18/24 12:57 AM Result Value Ref Range POC-GLUCOSE 130 (H) 70 - 110 mg/dL [employer] Planning Consultant [id number] Basic Metabolic Panel Status: Abnormal Collection Time: 07/18/24 5:13 AM Result Value Ref Range Sodium 146 136 - 146 meq/L Potassium 3.0 (L) 3.5 - 5.1 meq/L Chloride 117 (H) 102 - 112 meq/L CO2 20 (L) 21 - 32 meq/L Anion Gap 12 9 - 20 BUN 17 7 - 22 mg/dL Creatinine 0.52 (L) 0.55 - 1.02 mg/dL BUN/Creatinine 33 (H) 8 - 20 Glucose 159 (H) 74 - 106 mg/dL Calcium 7.6 (L) 8.4 - 10.1 mg/dL Osmolality Calc 295.5 eGFR (mL/min/1.73m2) >60 >=60 mL/min/1.73m2 CBC - Hemogram ([facility]J-BKR) Status: Abnormal Collection Time: 07/18/24 5:13 AM Result Value Ref Range WBC 3.9 (L) 4.0 - 10.0 K/??L RBC 2.40 (L) 3.93 - 5.22 M/??L Hemoglobin 7.5 (L) 11.2 - 15.7 GM/DL Hematocrit 23.4 (L) 34.1 - 44.9 % MCV 98 (H) 79 - 95 fL MCH 31.3 25.6 - 32.2 pg MCHC 32.1 (L) 32.2 - 35.5 GM/DL RDW 17.5 (H) 11.7 - 14.4 % Platelets 30 (LL) 140 - 375 K/CU MM MPV 12.8 (H) 9.4 - 12.3 fL TSH Status: Abnormal Collection Time: 07/18/24 5:13 AM Result Value Ref Range TSH 0.230 (L) 0.358 - 3.740 uIU/mL Ammonia Status: Abnormal Collection Time: 07/18/24 5:13 AM Result Value Ref Range Ammonia 47 (H) 11 - 32 ??mol/L Glucose, Nova Meter Status: Abnormal Collection Time: 07/18/24 6:15 AM Result Value Ref Range POC-GLUCOSE 124 (H) 70 - 110 mg/dL [employer] Consultant [id number] ECHO COMPLETE (DOPPLER / COLOR) W OR WO CONTRAST TRANSTHORACIC ECHOCARDIOGRAPHY REPORT Demographics Patient Name: FREDY STERLING : 1960 [place] Medical Record [id number] Age: 64 year(s) Number: Corporate ID Number: [id number] Gender Female Imcu Specialist: Amina Fiore RDCS Height: 70 inches Referring Physician: TREY VALDES Weight: 216 pounds Interpreting REJI SOUSA MD BMI: 30.99 kg/m^2 Physician: Date of [...] 1.07 m/s E/A ratio: 1.01 m/s Volume [id number] LV length: 8.57 cm ml Volume [id number] ml LVOT diameter: 2.02 cm Mild left [...] (8-12mmHg). Pericardium / Pleura No pericardial effusion. Assessment PAF with RVR - rate controlled on Cardizem, wean - keep K>4.0, Mag>2.0 replace prn - transition to oral beta ede, able to safely swallow now - echocardiogram Mild left ventricular hypertrophy. Normal left ventricular systolic function with visually estimated ejection fraction 60% +/- 5%. Grade 1 diastolic dysfunction. Mild left atrial enlargement. Mild-moderate mitral regurgitation. 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 [facility] Speech Language Pathology Clinical Swallow Evaluation Initial evaluation Therapy Diagnosis: No overt oropharyngeal patterns Recommendations: 1. Regular/thin 2. Meds per RN 3. No further evaluation/tx indicated Patient Name: Asher Daniel Birthday: 1960 Age: 64 y.o. Today: 07/18/2024 Time: 1771-1748 includes time spent for nursing collaboration, chart and systems review, and clinical reasoning. Mental status:Alert , Cooperative, and Confused Pain: 0 via 0-10 verbal History Additional History: Pt with acute hx of multiple myeloma. She receives chemo 2x/week. She missed her last infusion. Pt admitted to [facility] with increased confusion/AMS. +UTI and elevated ammonia. CLINICAL LABORATORY MANAGER consulted for bedside dysphagia evaluation. Speech and Dysphagia History: no previous ST in EMR Intubation History: n/a Patient Active Problem List Diagnosis Multiple myeloma without remission (HCC) Sepsis (HCC) 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HCC) Chronic low back pain DVT (deep venous thrombosis) ([facility]) History of shingles 12/2019 Hypertension Multiple myeloma (HCC) Peripheral neuropathy Pulmonary embolism ([facility]) Past Surgical History: Procedure Laterality Date BONE MARROW BIOPSY TOTAL KNEE ARTHROPLASTY Diet prior to admission: Regular/thin Current diet: Diet tube feeding continuous TF Formula: Jevity 1.5 NPO diet Subjective No c/o. Objective Respiratory Status: room air Oral Mechanism Exam: intact Dentition :Poor Condition Oral hygiene: WFL Secretion Management: functional Vocal Quality: adequate Cough: - Volitional :strong - Reflexive : Did not observe Oral Care Completed: yes Oral Feeding Trials: Positioning: upright at 90' Feeding assistance: moderate assistance Consistencies Administered: thin, puree/pudding, and solids Oral Stage: No overt oral dysphagia patterns Pharyngeal Stage: No overt pharyngeal dysphagia patterns 3 oz water test: pass Comments: Assessment Cognitive/Communication Status: Pt is alert but confused. She follows simple commands. Summary: Arrived to see pt for dysphagia evaluation. She is alert but confused. No Corpak in place.Oral care completed. No overt oropharyngeal patterns appreciated with thin, puree, or solid consistencies. Pt is ok for a regular diet and thin liquids. Meds per RN. No further evaluation/tx for oropharyngeal dysphagia is indicated. RN alerted. Patient Education:Instructed, Needs reinforcement, and Patient Results and recommendations of this evaluation were communicated to RN Plan CLINICAL LABORATORY MANAGER Recommendation at Discharge:No further CLINICAL LABORATORY MANAGER services warranted at this time. This will serve as a discharge statement if patient is discharged before further visits. Electronically signed by TALON Ken - 07/18/2024 - 7:53 AM EDT * Ken Urrutia MD - 07/17/2024 5:42 PM EDT Hematology Oncology Follow Up Note History of Present Illness: Patient was seen and examined today. She was much more alert and awake today and was able to answerquestions properly. She feels overall better. She continues to have some back pain. 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HCC) Chronic low back pain DVT (deep venous thrombosis) (HCC) History of shingles 12/2019 Hypertension Multiple myeloma (HCC) Peripheral neuropathy Pulmonary embolism (HCC) Past Surgical History: Procedure Laterality Date BONE MARROW BIOPSY TOTAL KNEE ARTHROPLASTY Allergies: Ampicillin, Penicillin, Codeine, Indomethacin, and Morphine Medications: Current Outpatient Medications Medication Instructions aspirin 81 mg, oral, Daily busPIRone (BUSPAR) 20 mg, oral, 3 times daily cetirizine (ZYRTEC) 10 mg, oral, Daily cyanocobalamin 1,000 mcg, oral, Daily DULoxetine (CYMBALTA) 30 mg, oral, Daily ergocalciferol (VITAMIN D2) 50,000 Units, oral, Every 7 days gabapentin (NEURONTIN) 300 mg, oral, 3 times daily, Can take up to 2 caps as directed meclizine (ANTIVERT) 1-2 mg, oral, Every 6 hours PRN metoprolol succinate (TOPROL-XL) 25 mg, oral, Daily multivitamin per tablet 1 tablet, oral, Daily nitrofurantoin, macrocrystal-monohydrate, (MACROBID) 100 MG capsule 100 mg, oral, 2 times daily with breakfast and dinner, Start Date: 07/05/2024 for 7 days ondansetron (ZOFRAN-ODT) 4 mg, oral, Every 8 hours PRN oxyCODONE (ROXICODONE) 10 mg, oral, Every 4 hours PRN PARoxetine (PAXIL) 30 mg, oral, Daily potassium chloride (KLOR-CON) 20 MEQ tablet 20 mEq, oral, Daily promethazine (PHENERGAN) 12.5 mg, oral, Every 6 hours PRN rivaroxaban (XARELTO) 20 mg, oral, Daily with dinner simvastatin (ZOCOR) 10 mg, oral, Every Night Review of Symptoms: Review of Systems Constitutional: Positive for malaise/fatigue. HENT: Negative. Eyes: Negative. Respiratory: Negative. Cardiovascular: Negative. Gastrointestinal: Negative. Genitourinary: Negative. Musculoskeletal: Positive for back pain. Skin: Negative. Neurological: Negative. Endo/Heme/Allergies: Negative. Psychiatric/Behavioral: Negative. Vitals Vitals: 07/17/24 0800 07/17/24 0900 07/17/24 1135 07/17/24 1625 BP: 111/64 132/67 BP Location: Right arm Patient Position: Lying Pulse: 72 72 Resp: 20 Temp: 97.4 ??F (36.3 ??C) TempSrc: Axillary SpO2: 97% 98% 97% Weight: Height: Gain/Loss Since Last Wt (Kgs): 0 kg Physical Exam Cardiovascular: Rate and Rhythm: Normal rate and regular rhythm. Pulmonary: Effort: Pulmonary effort is normal. Breath sounds: Normal breath sounds. Abdominal: General: Abdomen is flat. Palpations: Abdomen is soft. Comments: No Hepatosplenomegaly Musculoskeletal: Cervical back: Neck supple. Comments: No peripheral edema Lymphadenopathy: Comments: No peripheral adenopathy. Skin: General: Skin is warm. Neurological: Mental Status: She is alert. Relevant Results: WBC Date Value Ref Range Status 07/17/2024 5.2 4.0 - 10.0 K/??L Final 07/16/2024 6.1 4.0 - 10.0 K/??L Final 07/15/2024 5.4 4.0 - 10.0 K/??L Final RBC Date Value Ref Range Status 07/17/2024 2.78 (L) 3.93 - 5.22 M/??L Final 07/16/2024 2.42 (L) 3.93 - 5.22 M/??L Final 07/15/2024 2.41 (L) 3.93 - 5.22 M/??L Final Hemoglobin Date Value Ref Range Status 07/17/2024 8.7 (L) 11.2 - 15.7 GM/DL Final 07/16/2024 7.5 (L) 11.2 - 15.7 GM/DL Final 07/15/2024 7.6 (L) 11.2 - 15.7 GM/DL Final Hematocrit Date Value Ref Range Status 07/17/2024 27.6 (L) 34.1 - 44.9 % Final 07/16/2024 24.0 (L) 34.1 - 44.9 % Final 07/15/2024 24.3 (L) 34.1 - 44.9 % Final Platelets Date Value Ref Range Status 07/17/2024 37 (LL) 140 - 375 K/CU MM Final 07/16/2024 41 (L) 140 - 375 K/CU MM Final 07/15/2024 51 (L) 140 - 375 K/CU MM Final Chemistry Component Value Date/Time NA 149 (H) 07/17/2024 0806 K 3.1 (L) 07/17/2024 0806 CL 118 (H) 07/17/2024 0806 CO2 20 (L) 07/17/2024 0806 BUN 19 07/17/2024 0806 CREATININE 0.61 07/17/2024 0806 Component Value Date/Time CALCIUM 7.8 (L) 07/17/2024 0806 ALKPHOS 45 07/17/2024 0806 AST 38 (H) 07/17/2024 0806 ALT 11 (L) 07/17/2024 0806 BILITOT 0.5 07/17/2024 0806 Radiology Results (last 7 days) Procedure Component Value Units Date/Time XR chest AP portable [[id number]] Collected: 07/16/24 0832 Order Status: Completed Updated: 07/16/241634 Narrative: PORTABLE CHEST; HISTORY: Precordial chest pain. COMPARISON: July 12, 2024. FINDINGS: The heart is stable in size. There are low lung volumes with perihilar vascular enlargement and crowding. There is no pneumothorax. Impression: Stable exam. Images reviewed, interpreted, and dictated by Dr. Zac Ordoñez. Transcribed by Stacy Marte PA-C. XR KUB PORTABLE [[id number]] Collected: 07/15/24 1254 Order Status: Completed Updated: 07/15/241947 Narrative: SINGLE VIEW ABDOMEN HISTORY: Corpak placement. ABDOMEN: Single view of the abdomen demonstrates a nonobstructive bowel gas pattern. No abnormal calcifications are identified. There is a feeding tube with the tip in the stomach. Impression: Feeding tube tip in the stomach. Images reviewed, interpreted, and dictated by Dr. Zac Ordoñez. Transcribed by Stacy Marte PA-C. Ultrasound liver [[id number]] Collected: 07/14/242048 Order Status: Completed Updated: 07/14/242057 Narrative: ULTRASOUND OF THE LIVER HISTORY: Elevated ammonia. [...] toward the liver. Hepatic artery is patent. Impression: Normal-appearing portal vein. Apparent extrahepatic biliary ductal dilation, of uncertain etiology or significance, as discussed above. Images reviewed, interpreted and dictated by Dr. Bacilio Patel MD CT brain without IV contrast [[id number]] Collected: 07/12/241739 Order Status: Completed Updated: 07/12/242034 Narrative: HEAD CT 07/12/2024 5:06 PM HISTORY: Acute [...] multiple myeloma. No pathologic fracture is evident. Impression: No acute intracranial process. Innumerable lytic lesions [...] interpreted, and dictated by Trino Nguyen M.D. CT chest abdomen pelvis with contrast [[id number]] Collected: 07/12/241739 Order Status: Completed Updated: 07/12/242034 Narrative: HEAD CT 07/12/2024 5:06 PM HISTORY: Acute [...] multiple myeloma. No pathologic fracture is evident. Impression: No acute intracranial process. Innumerable lytic lesions [...] myeloma. Images reviewed, interpreted, and dictated by R.W. Hartsough, M.D. XR chest AP portable [[id number]] Collected: 07/12/24 3838 Order Status: Completed Updated: 07/13/24 0042 Narrative: PORTABLE CHEST HISTORY: Mental status change for 2 days., Fall 2 days prior COMPARISON: 07/02/2024. FINDINGS: A single portable radiograph of the chest was performed. The heart is normal in size. There is a vascular congestion. There is decreased lung volume with atelectasis. There is no edema or infiltrate. The bony thorax appears intact. Impression: Underinflation with no acute process. Images reviewed, interpreted, dictated and electronically signed by Mert Knight MD Voice compressor operator portable technology ([employer]) is used for the dictation of this note and sound-alike words might be erroneously placed despite reviewing this note for accuracy. Errors in dictation may reflect use of voice recognition software and not all errors in compressor operator portable may have been detected prior to signing. Assessment Relapsed multiple myeloma. Her most recent systemic therapy was with Kyprolis and dexamethasone. Patient clinically improved with high-dose of steroid. Severe anemia and thrombocytopenia. This is most likely due to underlying bone marrow infiltration with clonal plasma cell. Plan I discussed with the patient about considering bone marrow biopsy and aspirate for further evaluation of her cytopenia and specially that she is more alert and awake. She agreed. I will arrange for the bone marrow biopsy and aspirate tomorrow morning. Please consider blood and platelet transfusion as needed. We will continue to follow-up Signed: Electronically signed by Ken Urrutia MD 07/17/2024 5:43 PM EDT * Ford Sol, PT - 07/17/2024 12:09 PM EDT Images from the original note were not included. Therapist in MDRs from 1003 to 1133 for patient discussion. 6 zero charges dropped to account for time. Electronically signed by Ford Sol, PT - 07/17/2024 - 12:09 PM EDT * Glida Wang, PT - 07/17/2024 12:00 PM EDT Images from the original note were not included. Inpatient Physical Therapy Treatment This note will serve as a reassessment in order to update the patient's goals, target date for goals, and overall plan of care to appropriately reflect current presentation and participation in skilled Physical Therapy services. Patient Name: Asher Daniel Date of : 1960 Date of Treatment: 07/17/24 Start Time 1200 Stop Time 1242 Session Duration 42 minutes General Visit Type: Treatment Approved by: Nurse Huang Patient Disposition Upon Entry: Supine in bed, Call Light/Pull Cord in reach, All needs met and within reach, Nursing aware/notified, HOB >30 degrees, Side rails up, Visitor/Family present Patient Verified By: Name and Date of Assisted by: HANSA Precautions Weight-Bearing Status: No Restrictions Precautions: Fall risk Isolation Precautions: Standard Subjective Subjective: Pt informed of skilled PT treatment, and after a few seconds of silence patient states ok. When asked if she is in pain, patient shook her head no. Supine to sit, Linsey x 1. Pt supervision to CGA for EOB static sitting balance. Per son and RN, pt c/o of need to urinate for over one hour. Patient unable to allow herself to urinate using purewick; PT asked to see if patient could perform transfer to BSC. Pt sit to stand, Linsey x 2, hand hold. Pt seated on EOB. Patient performed two more sit to stands and on the third and final fourth sit to stand, encouraged to transfer to BSC. Pt could not perform any steps - most likely due to fear of falling. Patient eventually returned supine, min/modA x 1 and scooted to HOB, total assist x 2. Purewick placed and RN entered room to scan patient's bladder. Pain Pt appears to be in pain from having to urinate, and also stated her feet were very sore. PT performed skin check bilateral feet with no apparent wounds. Cognition Overall cognitive status: Impaired Arousal: Patient awake, eyes open Orientation Level: Oriented to person, was oriented to the fact she was in the hospital. Following commands: Follows one step commands with increased time Follows one step commands with repetition Safety Judgment: Decreased awareness of need for assistance Decreased awareness of need for safety Objective Vitals VSS Functional Mobility Bed Mobility: Supine to Sit: minimal assistance, 1-person assist Sit to Supine: minimal assistance, 2-person assist Transfers Sit to Stand: minimal assistance, 2-person assist, gait belt used, hand held assist Stand to Sit: minimal assistance, 1-person assist, gait belt used, hand held assist Gait Unable to assess due to impaired cognition, weakness, and fear of falling Stair Management Not assessed this date due to weakness, cognitive impairment; unsafe. Wheelchair Mobility Not assessed, patient ambulatory. -[facility] Basic Mobility Inpatient Short Form How much difficulty does the patient currently have: Turning over in bed (including adjusting bedclothes, sheets, and blankets)? (3) A little (can do the activity without assistive devices or help from another person, but requires A LITTLE more time and effort) Sitting down on and standing up from a chair with arms (e.g., wheelchair, bedside commode, etc.)? (1) Total/Unable (not able to do the activity or can only perform the activity using assistive devices or requires assistance from another person, including supervision or cueing for safety) Moving from lying on back to sitting on side of bed? (1) Total/Unable (not able to do the activity or can only perform the activity using assistive devices or requires assistance from another person,including supervision or cueing for safety) How much help from another person does the patient currently need: Moving to and from a bed to a chair (including a wheelchair)? (2) A lot (Maximal/Moderate assist) Need to walk in hospital room? (2) A lot (Maximal/Moderate assist) Climbing 3-5 steps with a railing? (2) A lot (Maximal/Moderate assist) Score Raw score=11 t-Scale score=33.86 Standard error=3.22 [facility] 0-100%=72.57% MDC=4.72 A raw score of >= 16 is significantly associated with increased odds of discharge to home in addition to consideration made for the patient's cognition and social determinants of health. Balance Static/dynamic sitting and static/dynamic standing balance grades Balance Grade Sitting Static Fair - patient able to maintain balance with handhold support; may require occasional minimal assistance Sitting Dynamic Poor - patient unable to accept challenge or move without loss of balance Standing Static Fair - patient able to maintain balance with handhold support; may require occasional minimal assistance Standing Dynamic Poor - patient unable to accept challenge or move without loss of balance Activity Tolerance Patient limited with activity/intervention due to fear, pain, cognitive impairment. Treatment PT introduced herself to patient; pt agrees to try sitting EOB. No c/o of pain. Patient supine to sit, Linsey x 1-2; initially patient's son was in the room to help encourage his mother. Once EOB, patient supervision for static sitting balance. BSC placed next to bed in hopes patient would transfer with assistance (pt has been c/o of needing to urinate, but is unable to tolerate the purewick thus far). After much encouragement, patient performed sit to stand, handheld x 2. Pt quickly seated secondary to fear. Patient performed 3 additional sit to stands, hand held x 2 (Linsey), but was unable to take any steps towards/to the BSC, to HOB, and eventually was returned supine, modA x 2. Pt positioned with HOB > 45 degrees, purewick placed, and RN entered room to perform a bladder scan. Patient was unable to cognitively follow one step commands for therapeutic exercise but was able tofollow one-step commands for functional mobility. Assessment Patient was unable to cognitively follow one step commands for therapeutic exercise but was able tofollow one-step commands for functional mobility. Son insisted patient was independent at home and was even driving to doctor's appointments. Pt will benefit from skilled PT to address deficits strength, mobility, endurance and cognition s/p admit with sepsis, and possible TIA. Problems: Decreased functional mobility, Decreased gait tolerance, Decreased strength, Decreased activity tolerance, Impaired standing balance, Pain , Impaired coordination Rehab potential: Fair Plan Treatment plan: Therapeutic Exercise, Therapeutic Activity, Gait Training, Neuromuscular Re-education, Transfer Training, Strengthening, Home Exercise Program, Patient/Family/Caregiver Education, DMERecommendations, Co-Treat with OT PT Frequency/Duration: 3x/week for 14 days Recommendations Discharge recommendations: Discharge recommendations pending progression of acute hospital stay secondary to the patient's medical status DME recommendations: Unable to make recommendations at this time. Goals Supine to/from sit: Linsey x 1 assist, HOB elevated, for active participation in skilled PT intervention, decreased caregiver burden Sit to/from stand: Min assist x1, Rwx, for improved functional ability, pressure relief Transfers: Linsey x 1, Rwx Gait: 50ft, Rwx, Linsey x 1 Target Date: 07/31/2024 Progress towards goals: progressing Education Patient educated on role of physical therapy, need for assistance, and risk for falls and following, they were not able to verbalize understanding. No further questions or concerns stated. Patient Disposition Upon Leaving Supine in bed, Call Light/Pull Cord in reach, All needs met and within reach, HOB >30 degrees, Side rails up, Nursing at bedside If this patient discharges prior to next therapy session, this note serves as the patient's discharge summary. Electronically signed by Gilda Wang, PT - 07/17/24 - 3:07 PM EDT * Gerson Aguirre MD - 07/17/2024 10:30 AM EDT [facility] Patient Name: Asher Daniel : 1960 Admission Date: 07/12/2024 Requesting Provider: Dr. Jose Evaluating Physician: Gerson Aguirre MD Chief Complaint: AMS Reason for Consultation: fever History of present illness: Patient is a 64 y.o. female with history of asthma, chronic lower back pain, DVT, HTN, Multiple myeloma on chemotherapy, PTE, seen today for fever. No history is available from the patient due to altered mental status and her mental status was last normal on Wednesday. Presented to the ED with complaints of recent fall, mental status changes, anorexia, and weakness. She has been treated for a recentUTI by her PCP. She was seen in the ED 07/04 with same complaints, CT revealing numerous lytic lesions throughout bones consistent with MM, CXR clear, UA with 500 LE, and urine culture with Klebsiella, and she was discharged home ojn Bactrim. Back to ED with above complaints. Tmax of 102 degrees. Ad mitting labs with WBC 6.1, plt 64, hgb 7.2, Scr 0.8, PCT 0.39, ALT 10 , AST 36, total bilirubin 1.2, and NH3 81. CXR without acute process, CT without acute abnormality chest, abdomen, pelvis, lytic lesions unchanged. HCT no acute process, innumerable lytic lesions throughout calvarium consistent with MM. Liver Us with fatty changes, no focal liver lesion noted. CBD 9.6 mm, abnormally dilated. Currently on Ceftriaxone and we were consulted for evaluation and treatment. Family in room. She will open eyes, grimace. 07/16/24: She remains afebrile without leukocytosis. Corpak removed due to malpostioning. She appears more alert this am. Does not follow commands. Son at bedside. 07/17/24: the patient is alert and following some simple commands today and trying to answer some questions although responses are minimal and not talking much. No fevers. Plt count remains low at 37today. Wbc is normal at 5.2. Cr is stable at 0.6. ammonia level has improved. Review of Systems: Unable to provide any history due to encephalopathy 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HCC) Chronic low back pain DVT (deep venous thrombosis) (HCC) History of shingles 12/2019 Hypertension Multiple myeloma (HCC) Peripheral neuropathy Pulmonary embolism (HCC) Past Surgical History: Procedure Laterality Date BONE MARROW BIOPSY TOTAL KNEE ARTHROPLASTY Social History Socioeconomic History Marital status: / Spouse name: Not on file Number of children: 4 Years of education: Not on file Highest education level: Not on file Occupational History Not on file Tobacco Use Smoking status: Never Smokeless tobacco: Never Vaping Use Vaping Use: Never used Substance and Sexual Activity Alcohol use: Never Drug use: Never Sexual activity: Not on file Other Topics Concern Not on file Social History Narrative Not on file Social Determinants of Health Financial Resource Strain: Low Risk (07/17/2024) Financial Resource Strain : 0 Food Insecurity: No Food Insecurity (07/17/2024) Food Insecurity : 0 : 0 Transportation Needs: No Transportation Needs (07/17/2024) Transportation Needs : 2 Physical Activity: Inactive (07/12/2024) Physical Activity : 0 Stress: No Stress Concern Present (07/17/2024) Stress : 1 Social Connections: Low Risk (07/17/2024) Family and Community Support : 0 : 0 Intimate Partner Violence: Not on file Housing Stability: Low Risk (07/17/2024) Housing Stability : 0 : 0 Family History Problem Relation Age of Onset Dementia Mother Heart attack Father Allergies Allergen Reactions Ampicillin Hives and Shortness Of Breath 07/12/24: Tolerated Rocephin Penicillin Hives 07/12/24: Tolerated Rocephin Codeine Indomethacin Morphine @Scheduled Meds: acetaminophen 650 mg rectal Once acyclovir 690 mg intravenous Q8H IVPB Stopped at 07/17/24 1526 albuterol 2.5 mg nebulization Q6H 2.5 mg at 07/17/24 1624 atorvastatin 10 mg oral Daily 10 mg at 07/13/24 0856 budesonide 0.5 mg nebulization 2 times daily 0.5 mg at 07/17/24 1134 busPIRone 15 mg oral TID 15 mg at 07/15/24 2142 cyanocobalamin 1,000 mcg oral Daily 1,000 mcg at 07/13/24 0856 dexamethasone 40 mg intravenous Q24H IVPB Stopped at 07/16/24 1810 DULoxetine 30 mg oral Daily 30 mg at 07/13/24 0856 enoxaparin 1 mg/kg subcutaneous Q12H 100 mg at 07/17/24 0858 ergocalciferol 50,000 Units oral Weekly 50,000 Units at 07/12/24 2254 gabapentin 100 mg oral TID 100 mg at 07/15/24 2142 insulin regular 0-12 Units subcutaneous Q6H EDUARD 2 Units at 07/16/24 0126 lactulose 20 g oral TID 20 g at 07/15/24 2328 pomalidomide 1 capsule oral Daily potassium chloride 10 mEq, lidocaine (PF) 10 mg/mL (1 %) 10 mg in sodium chloride 0.9 % (NS) 100 mLIVPB 10 mEq intravenous Q1H EDUARD 10 mEq at 07/17/24 1739 rifAXIMin 550 mg oral BID 550 mg at 07/15/24 2142 Continuous Infusions: dextrose 5 % (D5W) 50 mL/hr (07/17/24 0506) dilTIAZem 10 mg/hr (07/17/24 0859) PRN Meds:. acetaminophen dextrose docusate sodium glucagon glucose hydrALAZINE HYDROmorphone LORazepam meclizine melatonin ondansetron Or ondansetron PF oxyCODONE sodium chloride Physical Exam: Vital Signs Vitals: 07/17/24 0800 07/17/24 0900 07/17/24 1135 07/17/24 1625 BP: 111/64 132/67 Pulse: 72 72 Resp: 20 Temp: 97.4 ??F (36.3 ??C) TempSrc: Axillary SpO2: 97% 98% 97% Weight: Height: GENERAL more awake today, less confused. in no acute distress. Ill appearing HEENT: Normocephalic, atraumatic. PERRL. No conjunctival injection. Corpak removed NECK: Supple HEART: RRR; No murmur. LUNGS: CTAB. Normal respiratory effort. ABDOMEN: Soft, non-tender. nondistended. Positive bowel sounds. EXT: No cyanosis, clubbing or edema. No palpable cord : Without Monet catheter. MSK: FROM without joint effusions noted arms/legs. SKIN: no generalized rashes noted. No peripheral stigmata of infective endocarditis NEURO: more awake and alert. Following some simple commands. Trying to talk some but not speaking in sentences yet. Answering some simple yes/no questions. Laboratory Data Lab Results Component Value Date WBC 5.2 07/17/2024 HGB 8.7 (L) 07/17/2024 HCT 27.6 (L) 07/17/2024 MCV 99 (H) 07/17/2024 PLT 37 (LL) 07/17/2024 Lab Results Component Value Date GLUCOSE 113 (H) 07/17/2024 CALCIUM 7.8 (L) 07/17/2024 NA 149 (H) 07/17/2024 K 3.1 (L) 07/17/2024 CO2 20 (L) 07/17/2024 CL 118 (H) 07/17/2024 BUN 19 07/17/2024 CREATININE 0.61 07/17/2024 Estimated Creatinine Clearance: 60.7 mL/min (by C-G formula based on SCr of 0.61 mg/dL). Lab Results Component Value Date ALT 11 (L) 07/17/2024 AST 38 (H) 07/17/2024 ALKPHOS 45 07/17/2024 BILITOT 0.5 07/17/2024 Lab Results Component Value Date CRP < 0.2 (L) 06/17/2021 Lab Results Component Value Date SEDRATE 13 06/17/2021 Microbiology: Microbiology Results (last 7 days) Procedure Component Value Units Date/Time Blood Culture [[id number]] Collected: 07/12/24 1620 Order Status: Completed Specimen: Blood Updated: 07/17/24 1700 Result No growth in 5 days Blood Culture [[id number]] Collected: 07/12/24 1620 Order Status: Completed Specimen: Blood Updated: 07/17/24 1700 Result No growth in 5 days SARS-COV2/RT-PCR [[id number]] (Normal) Collected: 07/12/24 1647 Order Status: Completed Specimen: Nasopharyngeal Swab Updated: 07/12/24 1733 SARS-COV2/RT-PCR Negative Narrative: Testing was performed using RT-PCR methodology approved for use under [facility] Emergency Use Authorization only. Negative results do not preclude infection with the SARS-CoV-2 virus and should not be usedas the sole basis of a patient treatment or public health decisions. Negative results must be considered in the context of an individual's recent exposures, history, and presence of clinical signs/symptoms. Follow-up testing should be performed according to the current CDC recommendations. Blood Culture [[id number]] Order Status: Canceled Specimen: Blood Blood Culture [[id number]] Order Status: Canceled Specimen: Blood Radiology: Radiology Results (last 3 days) Procedure Component Value Units Date/Time XR chest AP portable [[id number]] Collected: 07/16/24 0832 Order Status: Completed Updated: 07/16/241634 Narrative: PORTABLE CHEST; HISTORY: Precordial chest pain. COMPARISON: July 12, 2024. FINDINGS: The heart is stable in size. There are low lung volumes with perihilar vascular enlargement and crowding. There is no pneumothorax. Impression: Stable exam. Images reviewed, interpreted, and dictated by Dr. Zac Ordoñez. Transcribed by Stacy Marte PA-C. XR KUB PORTABLE [[id number]] Collected: 07/15/24 1254 Order Status: Completed Updated: 07/15/24 194 Narrative: SINGLE VIEW ABDOMEN HISTORY: Corpak placement. ABDOMEN: Single view of the abdomen demonstrates a nonobstructive bowel gas pattern. No abnormal calcifications are identified. There is a feeding tube with the tip in the stomach. Impression: Feeding tube tip in the stomach. Images reviewed, interpreted, and dictated by Dr. Zac Ordoñez. Transcribed by Stacy Marte PA-C. Ultrasound liver [[id number]] Collected: 07/14/242048 Order Status: Completed Updated: 07/14/242057 Narrative: ULTRASOUND OF THE LIVER HISTORY: Elevated ammonia. [...] toward the liver. Hepatic artery is patent. Impression: Normal-appearing portal vein. Apparent extrahepatic biliary ductal dilation, of uncertain etiology or significance, as discussed above. Images reviewed, interpreted and dictated by Dr. Bacilio Patel MD Impression: - Fever, source unclear; ? Medications/drug fever vs. HSV encephalitis. Urinalysis was not concerning for UTI and blood cultures remain NGTD. 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 No acute abnormalities noted on recent CT C/A/P. LFTs were repeat and were WNL so cholangitis seems unlikely. - Acute toxic/metabolic encephalopathy- mental status was last normal on 07/10/24 per family. Seemsmore alert today and trying to answer some simple questions and able to follow some simple commands. - Recent Klebsiella UTI, was on Bactrim - CBD dilatation, 9.6mm per liver US, not noted on CT - no indication for ERCP per GI note, now on Rifaximin, Lactulose - Multiple myeloma, s/p BM transplant- now on Pomalidomide but has not had chemo in a month - Anemia - Thrombocytopenia - DVT on Eliquis - Hyperammonemia- lactulose - History of PCN allergy- Hives PLAN: - follow blood cultures, negative so far - could consider LP depending on clinical course and GOC. She has been on anticoagulation so this would need to be held prior to LP - stop meropenem and closely monitor off antibiotics - Acyclovir 10 mg/kg IV q 8hrs for now. Seems to be improving but her ammonia has also improved with lactulose so unclear if acyclovir is the reason for improvement in mental status. However, her fevers have resolved since starting acyclovir. Copied text in this note has been reviewed and is accurate as of 07/17/24 Complex MDM Gerson Aguirre MD 07/17/2024 * Sharona Clayton, OTR/L - 07/17/2024 9:09 AM EDT Images from the original note were not included. Inpatient Occupational Therapy Initial Evaluation Patient Name: Asher Daniel Date of : 1960 Date of Evaluation: 07/17/24 Start Time: 9:09 Stop Time: 9:26 Session Duration: 17 minutes Total time: 27 minutes spent, including 10 minutes for nursing collaboration, thorough chart and systems review, and clinical reasoning. This patient is a 64 y.o. female admitted on 07/12/2024 with Transient alteration of awareness [R40.4] Anemia [D64.9] Sepsis (HCC) [A41.9]. 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HCC) Chronic low back pain DVT (deep venous thrombosis) (HCC) History of shingles 12/2019 Hypertension Multiple myeloma (HCC) Peripheral neuropathy Pulmonary embolism (HCC) Past Surgical History: Procedure Laterality Date BONE MARROW BIOPSY TOTAL KNEE ARTHROPLASTY General Visit type: Initial Evaluation Approved by: Nurse Huang Patient disposition upon entry: Patient verified by name, Patient verified by date of , Supinein bed, Call light/pull cord in reach, Head of bed >30 degrees, son present Precautions Weightbearing status: No restrictions Precautions: Fall risk Isolation precautions: Standard LDA/Brace/Protective equipment: Lines, drains, and airways: peripheral IV, telemetry Subjective Son present. Client not able to agree to assessment, and generally looks uncomfortable. Son agrees to assessment. Pain Unable to answer pain question, but appears to be experiencing increased sensitivity to touch. Cognition Cognition: Overall cognitive status: Impaired Arousal/alertness: Generalized responses. Patient reacts inconsistently and nonpurposefully to stimuli in a nonspecific manner. Attention span: Difficulty attending to directions Orientation level: Unable to assess Following commands: follows some automatic motions, such as reaching hand out to shake hands; does not respond to commands when asked to perform a movement that is not automatic Vision/Hearing History Normal Home Living (from PT note and verified with son) All information provided by son, who was present in room with patient. Patient reports patient is both neurologically and cognitively intact at baseline, reports she drove herself to MD appointments,and ambulated short distances without use of AD occasionally. Lives with: Son Home Type: House Home Layout: One level Stairs to enter: handrail on right ascending, ramped entrance Stairs inside home: none Home Equipment: Rolling walker, Single point cane Functional Mobility PLOF: Family/caregiver reports patient was modified independent with all functional mobility with the use of Single point cane Activities of Daily Living PLOF: Family/caregiver reports patient was modified independent with allADL's with the use of Single point cane Objective Vitals Stab;e Range of Motion Assessment Normal: Client is able to use her arms/hand for reaching/grasping/holding objects in all planes, including above shoulder level Strength Assessment Good: client is able to use arms to pull/push/hold against resistance at shoulder/elbow/wrist levels Bed Mobility (level of assistance ONLY, see treatment note for details on quality of performance) Unable to formally assess, due to client becoming upset when being touched or moved. However, seen able to shift positions in the bed, and at baseline would be able to do this without assistance. Outcome Measures [facility] Daily Living Functional Assessment How much help from another person does the patient currently need: Putting on and taking off regular lower body clothing? 2 Bathing, including washing, rinsing, and drying? 1 Toileting, including using toilet, bedpan or urinal? 1 Putting on and taking off regular upper body clothing? 2 Taking care of personal grooming such as brushing teeth? 3 Eating meals? 3 1=Total/Unable (Total assist/Dependent) 2=A lot (Maximal/Moderate assist) 3=A little (Minimal/Contact guard/Supervision/Setup) 4=None (Modified independent/Independent) The patient's [facility] raw score is 12. The patient currently has 66.57% functional impairment. Clinicians are most likely to recommend inpatient/SNF/intermodal owner operator truck driver care for patients with scores between 6-17, home health for scores between 18-22, and routine discharge for scores above 22. Treatment Skilled service: Therapist attempted to engage client in grooming activity, using visual cues and afamiliar activity pattern. Client Did not wish to perform task, and appeared distressed. Client reported some pain in legs, son attributes to madhu horses and states that client has not been ableto sleep much last night. Client did, however, reach out to shake therapist's hand, was able to track therapist in room. Therapist provided a swab, some linens in the room for son, to help relieve some of the discomfort from dry mouth. Son reports that client has not received her usual anti-anxietymedication, due to being NPO for upcoming procedure. Therapist provided some suggestions to son to help make client more comfortable and for soothing, as client appears more receptive to son's intervention. Assessment Assessment Therapist and client/family collaborated on goals and treatment plan. Based on prior level of performance (independent), client preferences (unclear), current performances issues (feelings of distress interfering with participation), resources/level of support available (family) and social expectations, it was determined that the treatment plan should focus on mobility, ADLs in order to create discharge plan. Patient will benefit from OT services to address these goals. Without OT services, client is at increase risk for increased caregiver burden. Problems: difficulty with ADLs, impaired cognition, impaired endurance, impaired functional mobility Rehab potential: Good for stated goals and current plan Plan Recommendations Discharge recommendations: Discharge recommendations pending progression of acute hospital stay secondary to the patient's medical status DME recommendations: Unable to make adaptive/DME recommendations at this time. Treatment Plan: Adaptive equipment training, ADL training, DME recommendations , Energy conservation instruction, Functional mobility/transfer training, Home modification recommendations , Home program instruction, Other activities to increase UE function, Pain management, Patient/family/caregiver education OT Frequency/Duration: 3x/week for 14 days Goals Grooming: grooming with setup Lower body dressing: donning and doffing lower body clothing with setup. Toileting: toileting with setup. Bed mobility: bed mobility with standby assist. Functional transfers: stand pivot transfer with standby assist. Target Date: 07/31/2024 Goals were discussed with family Education Patient/Visitors educated on safety, role of occupational therapy, patient's plan of care, ADLs, functional mobility and following, they were able to verbalize understanding. Patient Disposition Upon Leaving Patient disposition upon leaving: Supine in bed, All needs met and within reach, Call light/pull cord in reach, Head of bed >30 degrees, Nursing aware/notified, son present If this patient discharges prior to next therapy session, this note serves as the patient's discharge summary. Electronically signed by Sharona Arnold OTR/L - 07/17/2024 - 12:23 PM EDT * Chandra Jose MD - 07/17/2024 8:12 AM EDT PCP: MARILEE Muñoz Date of Admission: 07/12/2024 Date of Discharge Reason for Hospitalization Asher Daniel is a 64 y.o. female with PMHx of multiple myeloma which she is getting chemotherapy for biweekly and missed her last dose was brought in by her son with increasing confusion and altered mental status. Patient is intermittently confused. She has had multiple falls at home andhas an abrasion to right forehead. Pt is confused and able to answer some questions but most answers don't make sense. She has some lower abd discomfort. Consultations obtained -Physical and occupational therapy services -Case management -Oncology hematology -Gastroenterology -Neurology services -Infectious disease services Procedures performed -None so far Hospital course/follow-up 07/13 please note this is my first visit with this patient, she is somewhat somnolent at the time of my interaction no family in the room, marked anemia noted platelets also on the low side imaging studies reviewed patient appears quite sick at the moment H&P extensively reviewed as well 07/14 I have discussed extensively yesterday with the son over the phone and updated him about planof care, patient is quite sick, she is rather in critical condition, this morning she is still somnolent although easily arousable, low- grade fever overnight noted also received some Dilaudid, this morning I called and discussed with the nursing staff extensively as well, ammonia level slightly trending down after I initiated lactulose, prognosis not great, did receive blood transfusions, oncology hematology already on board here, due to her somnolent I would like to rule out hypercarbia therefore I will check arterial blood gas this was also communicated to the nursing staff, if patient deter iorates low threshold to transfer her to ICU critical illness unfortunately continues prognosis notgreat 07/15 patient seen and evaluated, remains quite sick overall, she is somnolent, unable to participate in history with me, son present in the room today, had long discussion with him today at bedside previously discussed with him extensively over the phone multiple times, patient had spiked a fever Tmax close 202 ??F last night, cultures are negative, she is on antibiotic therapy at present time, due to fever I will consult infectious disease services, patient has been placed on high-dose dexamethasone under the guidance of oncology hematology for underlying multiple myeloma, seen by gastroenterology and neurology services, rifaximin and lactulose has been added, ammonia level worsening, seems like patient unable to take oral medications on a consistent basis, I believe her prognosis not great at this time, plan discussed with the son extensively at bedside patient resisted full code 07/16 patient had good night seen and evaluated son at bedside mentation a lot better more awake follows some commands fever resolving antibiotics enhanced antiviral added sodium 149 potassium low son is happy with her progress patient's platelets hemoglobin remains low secondary to multiple myeloma, ammonia levels markedly improved after receiving rifaximin as well as lactulose 07/17 patient seen and evaluated, resting, yesterday late afternoon events noted when she went intotachyarrhythmia, now on Cardizem drip, Lovenox added per on- call physician, more awake resting communicating son at bedside overall happy with her progress, no labs out for today at the time of this dictation potassium was low magnesium normal, she remains on antivirals, I discussed with infectiousdisease yesterday multiple ongoing issues noted at present time although mentation fraga she is improving slowly 07/18 07/19 07/20 Diagnosis: -Sepsis in an immunocompromise host, present upon admission, source appears to be genitourinary -Suspected UTI/acute cystitis -Acute metabolic encephalopathy, now improving -Markedly elevated ammonia level -Marked symptomatic anemia with thrombocytopenia in the setting of known multiple myeloma -Atrial fibrillation with rapid ventricular response -Documented history of DVT/PE -chronically on Xarelto -Essential hypertension -History of peripheral neuropathy -Electrolyte imbalance with hypernatremia and hypokalemia Plan 07/13 continue broad-spectrum antibiotics, follow-up on pending cultures, continue gentle IV fluid support, monitor volume status closely, continue to monitor hemoglobin hematocrit, transfuse blood as needed, monitor platelets, watch mentation closely, continue subset of home meds as indicated, monitor labs closely, PT OT roxy, plan discussed with the patient but she is poorly cognizant of the situation, Complex medical issues with acute on chronic multiple co morbidities requiring multidisciplinary management. Holding Xarelto in the setting of marked anemia, oncology hematology consultation,in regards to elevated ammonia level adding lactulose and will monitor ammonia levels closely at this point, plan discussed with the nursing staff this morning 07/14 I will continue lactulose, continue to monitor ammonia levels on daily basis, I would like tocheck ABG to rule out hypercarbia as etiology of somnolence and mentation related issues, increase activity with physical therapy as much as possible continue lactulose at this point, continue to hold Xarelto up until hemoglobin improves further, follow oncology hematology recommendations, prognosis not great, discussed with the nursing extensively yesterday extensively discussed with the son as well updated him about plan of care and patient's poor prognosis, I have spent 32 minutes of critical care time taking care of this patient today 07/15 I will continue antibiotic therapy, enhancing coverage at this time given worsening fever, consulting infectious disease for their advice and input given patient's immunocompromise status, watch mentation closely, continue rifaximin and lactulose if she is able to take it, continue steroid added per oncology hematology, watch mentation closely, oncology thinks her prognosis is not great dueto advanced multiple myeloma, plan discussed with the patient's son extensively at bedside, discussed with the nursing staff as well 07/16 monitor electrolytes and replace as needed, continue antibiotics and antiviral per infectiousdisease, monitor labs closely monitor CBC on daily basis increase activity with physical therapy plan of care extensively discussed with son at bedside yet again, Complex medical issues with acute onchronic multiple co morbidities requiring multidisciplinary management. 07/17 continue gentle IV fluids, Lovenox added, needs to be cautious with worsening anemia worsening thrombocytopenia on full dose anticoagulation therapy will monitor CBC closely, continue antibiotics antivirals under the guidance of infectious disease services, I discussed with ID services yesterday, obtaining transthoracic echo, check TSH, cardiology consultation requested and pending, watch mentation plan extensively discussed with the son at bedside yet again 07/18 07/19 07/20 DCP: Home vs inpatient rehab pending progress and medical stability Voice compressor operator portable technology ([employer]) is used for dictation of this note and sound-alike words might be erroneously placed despite reviewing the note for accuracy. Errors in dictation mayreflect use of voice recognition software and not all errors in compressor operator portable may have been detected prior to signing Hospital Medications Scheduled Meds: acetaminophen 650 mg rectal Once acyclovir 690 mg intravenous Q8H IVPB Stopped at 07/17/24 0610 albuterol 2.5 mg nebulization Q6H 2.5 mg at 07/17/24 0511 atorvastatin 10 mg oral Daily 10 mg at 07/13/24 0856 budesonide 0.5 mg nebulization 2 times daily 0.5 mg at 07/16/242055 busPIRone 15 mg oral TID 15 mg at 07/15/242141 cyanocobalamin 1,000 mcg oral Daily 1,000 mcg at 07/13/24 0856 dexamethasone 40 mg intravenous Q24H IVPB Stopped at 07/16/24 181 DULoxetine 30 mg oral Daily 30 mg at 07/13/24 0856 enoxaparin 1 mg/kg subcutaneous Q12H 100 mg at 07/16/247 ergocalciferol 50,000 Units oral Weekly 50,000 Units at 07/12/24 2254 gabapentin 100 mg oral TID 100 mg at 07/15/24 2142 insulin regular 0-12 Units subcutaneous Q6H EDUARD 2 Units at 07/16/24 0126 lactulose 20 g oral TID 20 g at 07/15/24 2328 pomalidomide 1 capsule oral Daily potassium chloride 20 mEq oral BID rifAXIMin 550 mg oral BID 550 mg at 07/15/24 214 Continuous Infusions: dextrose 5 % (D5W) 50 mL/hr (07/17/24 0506) dilTIAZem 10 mg/hr (07/16/24 2349) PRN Meds:. acetaminophen dextrose docusate sodium glucagon glucose hydrALAZINE HYDROmorphone LORazepam meclizine melatonin ondansetron Or ondansetron PF oxyCODONE sodium chloride Physical Exam Vitals: 07/17/24 0601 BP: 134/62 Pulse: 80 Resp: Temp: SpO2: General: NAD HEENT: Generally negative Neck: No JVD noted CVS: S1, S2, no S3 or S4 Lungs: Equal air entry symmetrical chest expansion GI: Soft, audible bowel sounds Neurological: Nonfocal Musculoskeletal: Generally unremarkable Skin: Warm without any noted rashes Labs & Imaging Recent Results (from the past 24 hour(s)) Glucose, Nova Meter Collection Time: 07/16/24 1:00 PM Result Value Ref Range POC-GLUCOSE 120 (H) 70 - 110 mg/dL [employer] Consultant [id number] ECG 12 lead Collection Time: 07/16/24 2:52 PM Result Value Ref Range VENTRICULAR RATE EKG/MIN 154 BPM ATRIAL RATE (MCT) 170 BPM QRS-INTERVAL (MSEC) 74 ms QT Interval 286 ms QTC Interval 458 ms R AXIS (MCT) 5 degrees T Wave [place] -109 degrees [place] Diagnosis Atrial fibrillation with rapid ventricular response Nonspecific ST and T wave abnormality Abnormal ECG When compared with ECG of 15-JUL-2024 13:44, Atrial fibrillation has replaced Sinus rhythm Vent. rate has increased BY 57 BPM Glucose, Nova Meter Collection Time: 07/16/24 4:03 PM Result Value Ref Range POC-GLUCOSE 131 (H) 70 - 110 mg/dL [employer] Consultant [id number] Potassium Collection Time: 07/16/24 5:40 PM Result Value Ref Range Potassium 3.1 (L) 3.5 - 5.1 meq/L ECG 12 lead Collection Time: 07/16/24 6:04 PM Result Value Ref Range VENTRICULAR RATE EKG/MIN 117 BPM ATRIAL RATE (MCT) 117 BPM RI Interval 168 ms QRS-INTERVAL (MSEC) 78 ms QT Interval 414 ms QTC Interval 577 ms P [place] 78 degrees R AXIS (MCT) 39 degrees T Wave [place] 27 degrees [place] Diagnosis Sinus tachycardia with frequent and consecutive premature ventricular complexes Prolonged QT Abnormal ECG When compared with ECG of 16-JUL-2024 14:52, Sinus rhythm has replaced Atrial fibrillation Glucose, Nova Meter Collection Time: 07/17/24 12:02 AM Result Value Ref Range POC-GLUCOSE 134 (H) 70 - 110 mg/dL [employer] Consultant [id number] Glucose, Nova Meter Collection Time: 07/17/24 6:00 AM Result Value Ref Range POC-GLUCOSE 126 (H) 70 - 110 mg/dL [employer]ant [id number] XR chest AP portable Result Date: 07/13/2024 PORTABLE CHEST HISTORY: Mental status change for 2 days., Fall 2 days prior COMPARISON: 07/02/2024.FINDINGS: A single portable radiograph of the chest was performed. The heart is normal in size. There is a vascular congestion. There is decreased lung volume with atelectasis. There is no edema or infiltrate. The bony thorax appears intact. Underinflation with no acute process. Images reviewed, interpreted, dictated and electronically signed by Mert Knight MD Voice compressor operator portable technology ([employer]) is used for the dictation of this note and sound-alike words might be erroneously placed despite reviewing this note for accuracy. Errors in dictation may reflect use of voice recognition software and not all errors in transcripti on may have been detected prior to signing. CT brain without IV contrast Result Date: 07/12/[address] 07/12/2024 5:06 PM HISTORY: [...] are unremarkable. Skull is intact. No skull fracturesare evident. Innumerable lytic lesions scattered throughout the calvarium consistent with patient'sknown diagnosis of multiple myeloma. No pathologic fracture is evident. No acute intracranial process. Innumerable lytic lesions [...] study was performed with techniques to keep radiationdoses as low as reasonably achievable, (ALARA). Individualized [...] granulomatous disease exposure. ABDOMEN: The liver is homogenouswith no focal abnormality. The spleen is unremarkable. Stable left adrenal nodule. The pancreas is unremarkable. The kidneys are unremarkable, without evidence of mass or hydronephrosis. The aorta isnormal in caliber. There is no free fluid or adenopathy. Postsurgical changes to the stomach are noted. PELVIS: The GI tract demonstrates no obstruction. The appendix is normal. The urinary bladder is unremarkable. There is no free fluid, adenopathy, or inflammatory process. Genital organs are unremarkable. No findings to suggest ovarian torsion. BONES: No acute fractures. IMPRESSION: 1. No acuteabnormality identified in the chest/abdomen/pelvis. 2. Stable left adrenal nodule. 3. No definite evidence to suggest cholelithiasis on today's study. 4. No significant interval change in innumerablelytic lesions throughout the bones consistent with patient's known history of multiple myeloma. Images reviewed, interpreted, and dictated by Trino Nguyen M.D. CT chest abdomen pelvis with contrast Result Date: 07/12/[address] 07/12/2024 5:06 PM HISTORY: [...] are unremarkable. Skull is intact. No skull fracturesare evident. Innumerable lytic lesions scattered throughout the calvarium consistent with patient'sknown diagnosis of multiple myeloma. No pathologic fracture is evident. No acute intracranial process. Innumerable lytic lesions [...] study was performed with techniques to keep radiationdoses as low as reasonably achievable, (ALARA). Individualized [...] granulomatous disease exposure. ABDOMEN: The liver is homogenouswith no focal abnormality. The spleen is unremarkable. Stable left adrenal nodule. The pancreas is unremarkable. The kidneys are unremarkable, without evidence of mass or hydronephrosis. The aorta isnormal in caliber. There is no free fluid or adenopathy. Postsurgical changes to the stomach are noted. PELVIS: The GI tract demonstrates no obstruction. The appendix is normal. The urinary bladder is unremarkable. There is no free fluid, adenopathy, or inflammatory process. Genital organs are unremarkable. No findings to suggest ovarian torsion. BONES: No acute fractures. IMPRESSION: 1. No acuteabnormality identified in the chest/abdomen/pelvis. 2. Stable left adrenal nodule. 3. No definite evidence to suggest cholelithiasis on today's study. 4. No significant interval change in innumerablelytic lesions throughout the bones consistent with patient's known history of multiple myeloma. Images reviewed, interpreted, and dictated by Trino Nguyen M.D. CT ABDOMEN/PELVIS WITH IV CONTRAST Result Date: 07/04/2024 CT SCAN OF THE ABDOMEN AND PELVIS WITH CONTRAST 07/04/2024 4:10 PM HISTORY: Acute generalized weakness. COMPARISON: February 04, 2022. PROCEDURE: The patient was injected with IV contrast. Axial images were obtained from the lung bases to the pubic symphysis by computed tomography. This study was performed with techniques to keep radiation doses as low as reasonably achievable, (ALARA). Individualizeddose reduction techniques using automated exposure control or adjustment of mA and/or kV according to the patient size were employed. FINDINGS: ABDOMEN: There is mild bibasilar atelectasis. The heartis normal in size. The liver is homogenous with no focal abnormality. There may be stones within the gallbladder. The spleen is unremarkable. There is a nonspecific 10 mm left adrenal nodule, new when compared to prior. The pancreas is unremarkable. The kidneys are unremarkable, without evidence ofmass or hydronephrosis. The aorta is normal in [...] disc disease is seen throughout the spine. Possible cholelithiasis. Otherwise, no acute process. Nonspecific left adrenal nodule. Numerous lytic lesions throughout the bones consistent with patient's known history of multiple myeloma. Images reviewed, interpreted, and dictated by Dr. Jaleesa Crabtree. Transcribed by Jaswant Lopez PA-C XR chest 1 view portable / bedside Result Date: 07/04/2024 PORTABLE CHEST. 07/04/2024 12:31 PM HISTORY: Weakness, multiple myeloma, nausea and vomiting. COMPARISON: January 2018. FINDINGS: The cardiac silhouette is normal in size. The mediastinum is unremarkable. The lungs are clear. There is no pneumothorax. No acute cardiopulmonary process. Images reviewed, interpreted, and dictated by Dr. Mert Knight. Transcribed by Silvia Pablo PA-C. Electronically signed by: Chandra Jose MD, 07/17/2024 at 8:13 AM EDT * Jm Kimball MD - 07/16/2024 3:33 PM EDT [facility] MEDICINE PROGRESS NOTE: HOSPITALIST PROGRESS NOTE Patient: Asher Daniel Date: 07/16/2024 Subjective HOSPITAL FOLLOW-UP: Was called by the nursing staff around 3 PM that patient is not doing well. She had A-fib with RVR with a heart rate in 150s. There is mild shortness of breath. Patient received 1 dose of metoprolol 5 mg IV around 2:45 PM. Patient is n.p.o. and did not receiveher regular metoprolol with known history of chronic atrial fibrillation. Patient also has a history of multiple myeloma and admitted for acute encephalopathy and mental status changes. I went in and saw the patient and evaluated her. Patient's son is at bedside. Discussed with the patient's nurse. Heart rate is in 130s to 150s range in atrial fibrillation with RVR. She open her eyes but she is nonverbal and noncommunicative. She is moaning throughout my exam and evaluation. According to son she recognizes him but she was not talking to him either. She is mildly short of breath.Her blood pressure seems stable with a systolic between 100 220 and diastolic between 60-70. There was a twelve-lead EKG done which is reviewed by me. Problem list currently included as follows: Atrial fibrillation with RVR. Chronic anticolic coagulation patient has been on Xarelto which is also on hold as she is not getting any oral medication being n.p.o. and [place] is not in place. Hyperammonemia Metabolic encephalopathy and confusion because is multifactorial. Sepsis source possibly . Acute cystitis and UTI as per admitting diagnosis. Immunocompromise host. Anemia and thrombocytopenia with a known history of multiple myeloma. Essential hypertension which is currently stable. PLAN: Start Cardizem drip Patient go to a different telemetry floor as per protocol. As oral anticoagulation is on hold due to her being n.p.o. I am going to start her on full dose of Lovenox Continue current antibiotic. Continue other current supportive and symptomatic care. Cardiology consult can be requested tomorrow if needed. Continue to monitor heart rate closely. Monitor and replace electrolytes. Potassium was low and being replaced and we have ordered the magnesium also. Needs close monitoring. Very sick patient high risk of developing more complication. Critical care time spent is around 50 minutes. I have discussed with the nursing staff in the room. Discussed with the patient's son in the room. Her CODE STATUS is full code currently. Objective Vitals: Temp: [97.3 ??F (36.3 ??C)-98.6 ??F (37 ??C)] 98 ??F (36.7 ??C) Pulse: [55-135] 76 Resp: [16-22] 22 BP: (100-149)/(57-83) 113/71 Intake/Output: Intake/Output Summary (Last 24 hours) at 07/16/2024 1533 Last data filed at 07/16/2024 1200 Gross per 24 hour Intake 129.17 ml Output 1 ml Net 128.17 ml Physical exam: General: Ill-appearing, open eyes but noncommunicative and nonverbal HEENT: PERRL reacting Neck: Supple. CVS: S1, S2, A-fib with RVR Lungs: Bilateral air entry. Clear to auscultation but diminished breath sounds at bases. Abdomen: Soft. Nontender. Positive bowel sounds. CONTACT CENTER AGENT: Cannot be assessed properly due to patient's current condition and level of cooperation. Musculoskeletal: Generally unremarkable. Skin: Warm and dry on exposed surface. Medications: Scheduled Meds: acetaminophen 650 mg rectal Once acyclovir 690 mg intravenous Q8H 690 mg at 07/16/24 1424 albuterol 2.5 mg nebulization Q6H 2.5 mg at 07/16/24 1117 atorvastatin 10 mg oral Daily 10 mg at 07/13/24 0856 budesonide 0.5 mg nebulization 2 times daily 0.5 mg at 07/16/24 1117 busPIRone 15 mg oral TID 15 mg at 07/15/24 2142 cyanocobalamin 1,000 mcg oral Daily 1,000 mcg at 07/13/24 0856 dexamethasone 40 mg intravenous Q24H IVPB Stopped at 07/16/24 0045 DULoxetine 30 mg oral Daily 30 mg at 07/13/24 0856 ergocalciferol 50,000 Units oral Weekly 50,000 Units at 07/12/24 2254 gabapentin 100 mg oral TID 100 mg at 07/15/24 2142 insulin regular 0-12 Units subcutaneous Q6H EDUARD 2 Units at 07/16/24 0126 lactulose 20 g oral TID 20 g at 07/15/24 2328 meropenem 500 mg intravenous Q6H IVPB Stopped at 07/16/24 1436 pomalidomide 1 capsule oral Daily potassium chloride 20 mEq oral BID potassium chloride 10 mEq, lidocaine (PF) 10 mg/mL (1 %) 10 mg in sodium chloride 0.9 % (NS) 100 mLIVPB 10 mEq intravenous Q1H EDUARD 10 mEq at 07/16/24 1526 rifAXIMin 550 mg oral BID 550 mg at 07/15/24 2142 sodium phosphate 15 mmol intravenous TID 15 mmol at 07/16/24 1426 Continuous Infusions: dextrose 5 % (D5W) 50 mL/hr (07/16/24 1125) dilTIAZem PRN Meds: acetaminophen dextrose docusate sodium glucagon glucose hydrALAZINE HYDROmorphone LORazepam meclizine melatonin ondansetron Or ondansetron PF oxyCODONE sodium chloride Labs: Results for orders placed or performed during the hospital encounter of 07/12/24 (from the past 24 hour(s)) Glucose, Nova Meter Status: Abnormal Collection Time: 07/15/24 6:20 PM Result Value Ref Range POC-GLUCOSE 158 (H) 70 - 110 mg/dL [employer] Consultant [id number] Glucose, Nova Meter Status: Abnormal Collection Time: 07/15/24 11:51 PM Result Value Ref Range POC-GLUCOSE 148 (H) 70 - 110 mg/dL [employer] Resource Planning Consultant [id number] Glucose, Nova Meter Status: Abnormal Collection Time: 07/16/24 5:15 AM Result Value Ref Range POC-GLUCOSE 124 (H) 70 - 110 mg/dL [employer] Planning Consultant [id number] Basic Metabolic Panel Status: Abnormal Collection Time: 07/16/24 6:54 AM Result Value Ref Range Sodium 149 (H) 136 - 146 meq/L Potassium 3.2 (L) 3.5 - 5.1 meq/L Chloride 119 (H) 102 - 112 meq/L CO2 20 (L) 21 - 32 meq/L Anion Gap 13 9 - 20 BUN 17 7 - 22 mg/dL Creatinine 0.61 0.55 - 1.02 mg/dL BUN/Creatinine 28 (H) 8 - 20 Glucose 141 (H) 74 - 106 mg/dL Calcium 8.6 8.4 - 10.1 mg/dL Osmolality Calc 300.0 eGFR (mL/min/1.73m2) >60 >=60 mL/min/1.73m2 CBC - Hemogram ([facility]J-BKR) Status: Abnormal Collection Time: 07/16/24 6:54 AM Result Value Ref Range WBC 6.1 4.0 - 10.0 K/??L RBC 2.42 (L) 3.93 - 5.22 M/??L Hemoglobin 7.5 (L) 11.2 - 15.7 GM/DL Hematocrit 24.0 (L) 34.1 - 44.9 % MCV 99 (H) 79 - 95 fL MCH 31.0 25.6 - 32.2 pg MCHC 31.3 (L) 32.2 - 35.5 GM/DL RDW 18.8 (H) 11.7 - 14.4 % Platelets 41 (L) 140 - 375 K/CU MM MPV 12.3 9.4 - 12.3 fL Ammonia Status: Abnormal Collection Time: 07/16/24 6:54 AM Result Value Ref Range Ammonia 61 (H) 11 - 32 ??mol/L Glucose, Nova Meter Status: Abnormal Collection Time: 07/16/24 1:00 PM Result Value Ref Range POC-GLUCOSE 120 (H) 70 - 110 mg/dL [employer] Resource [employer] Consultant [id number] ECG 12 lead Status: None (In process) Collection Time: 07/16/24 2:52 PM Result Value Ref Range VENTRICULAR RATE EKG/MIN 154 BPM ATRIAL RATE (MCT) 170 BPM QRS-INTERVAL (MSEC) 74 ms QT Interval 286 ms QTC Interval 458 ms R AXIS (MCT) 5 degrees T Wave [place] -109 degrees [place] Diagnosis Atrial fibrillation with rapid ventricular response Nonspecific ST and T wave abnormality Abnormal ECG When compared with ECG of 15-JUL-2024 13:44, Atrial fibrillation has replaced Sinus rhythm Vent. rate has increased BY 57 BPM Radiology: Radiology Results (last 3 days) Procedure Component Value Units Date/Time XR chest AP portable [[id number]] Collected: 07/16/24831 Order Status: Completed Updated: 07/16/24832 Narrative: PORTABLE CHEST; HISTORY: Precordial chest pain. COMPARISON: July 12, 2024. FINDINGS: The heart is stable in size. There are low lung volumes with perihilar vascular enlargement and crowding. There is no pneumothorax. Impression: Stable exam. Images reviewed, interpreted, and dictated by Dr. Zac Ordoñez. Transcribed by Stacy Marte PA-C. XR KUB PORTABLE [[id number]] Collected: 07/15/241253 Order Status: Completed Updated: 07/15/241947 Narrative: SINGLE VIEW ABDOMEN HISTORY: Corpak placement. ABDOMEN: Single view of the abdomen demonstrates a nonobstructive bowel gas pattern. No abnormal calcifications are identified. There is a feeding tube with the tip in the stomach. Impression: Feeding tube tip in the stomach. Images reviewed, interpreted, and dictated by Dr. Zac Ordoñez. Transcribed by Stacy Marte PA-C. Ultrasound liver [[id number]] Collected: 07/14/242048 Order Status: Completed Updated: 07/14/242057 Narrative: ULTRASOUND OF THE LIVER HISTORY: Elevated ammonia. [...] toward the liver. Hepatic artery is patent. Impression: Normal-appearing portal vein. Apparent extrahepatic biliary ductal dilation, of uncertain etiology or significance, as discussed above. Images reviewed, interpreted and dictated by Dr. Bacilio Patel MD Signed: 07/16/2024 * Lolis Avitia, [employer] - 07/16/2024 12:02 PM EDT Spiritual Care Progress Note 07/16/24 1202 Clinical Encounter Type Visited With Family Routine Visit Introduction Referral From Nurse;Verbal Consult Patient care Comments: Responded to request from RN and family to clarify decision maker; Ms. Daniel has no paperwork on file designating a Health Care Surrogate; therefore her 4 children, as next of kin, are together her decision makers; Discussed with son at bedside; He reported that Ms. Daniel has 3 sons and 1 daughter and that all can be available to discuss Ms. Daniel's care; He also reported Ms. Daniel identifies as Religion for crissy Chaplain Daniel 07/16/2024 12:02 PM * Gerson Aguirre MD - 07/16/2024 11:12 AM EDT [facility] Patient Name: Asher Daniel : 1960 Admission Date: 07/12/2024 Requesting Provider: Dr. Jose Evaluating Physician: Gerson Aguirre MD Chief Complaint: AMS Reason for Consultation: fever History of present illness: Patient is a 64 y.o. female with history of asthma, chronic lower back pain, DVT, HTN, Multiple myeloma on chemotherapy, PTE, seen today for fever. No history is available from the patient due to altered mental status and her mental status was last normal on Wednesday. Presented to the ED with complaints of recent fall, mental status changes, anorexia, and weakness. She has been treated for a recentUTI by her PCP. She was seen in the ED 07/04 with same complaints, CT revealing numerous lytic lesions throughout bones consistent with MM, CXR clear, UA with 500 LE, and urine culture with Klebsiella, and she was discharged home ojn Bactrim. Back to ED with above complaints. Tmax of 102 degrees. Ad mitting labs with WBC 6.1, plt 64, hgb 7.2, Scr 0.8, PCT 0.39, ALT 10 , AST 36, total bilirubin 1.2, and NH3 81. CXR without acute process, CT without acute abnormality chest, abdomen, pelvis, lytic lesions unchanged. HCT no acute process, innumerable lytic lesions throughout calvarium consistent with MM. Liver Us with fatty changes, no focal liver lesion noted. CBD 9.6 mm, abnormally dilated. Currently on Ceftriaxone and we were consulted for evaluation and treatment. Family in room. She will open eyes, grimace. 07/16/24: She remains afebrile without leukocytosis. Corpak removed due to malpostioning. She appears more alert this am. Does not follow commands. Son at bedside. Review of Systems: Unable to provide any history due to encephalopathy 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HCC) Chronic low back pain DVT (deep venous thrombosis) (HCC) History of shingles 12/2019 Hypertension Multiple myeloma (HCC) Peripheral neuropathy Pulmonary embolism (HCC) Past Surgical History: Procedure Laterality Date BONE MARROW BIOPSY TOTAL KNEE ARTHROPLASTY Social History Socioeconomic History Marital status: / Spouse name: Not on file Number of children: 4 Years of education: Not on file Highest education level: Not on file Occupational History Not on file Tobacco Use Smoking status: Never Smokeless tobacco: Never Vaping Use Vaping Use: Never used Substance and Sexual Activity Alcohol use: Never Drug use: Never Sexual activity: Not on file Other Topics Concern Not on file Social History Narrative Not on file Social Determinants of Health Financial Resource Strain: Low Risk (07/16/2024) Financial Resource Strain : 0 Food Insecurity: No Food Insecurity (07/16/2024) Food Insecurity : 0 : 0 Transportation Needs: No Transportation Needs (07/16/2024) Transportation Needs : 2 Physical Activity: Inactive (07/12/2024) Physical Activity : 0 Stress: No Stress Concern Present (07/16/2024) Stress : 1 Social Connections: Low Risk (07/16/2024) Family and Community Support : 0 : 0 Intimate Partner Violence: Not on file Housing Stability: Low Risk (07/16/2024) Housing Stability : 0 : 0 Family History Problem Relation Age of Onset Dementia Mother Heart attack Father Allergies Allergen Reactions Ampicillin Hives and Shortness Of Breath 07/12/24: Tolerated Rocephin Penicillin Hives 07/12/24: Tolerated Rocephin Codeine Indomethacin Morphine @Scheduled Meds: acetaminophen 650 mg rectal Once acyclovir 690 mg intravenous Q8H IVPB Stopped at 07/16/24 1526 albuterol 2.5 mg nebulization Q6H 2.5 mg at 07/16/24 1117 atorvastatin 10 mg oral Daily 10 mg at 07/13/24 0856 budesonide 0.5 mg nebulization 2 times daily 0.5 mg at 07/16/24 1117 busPIRone 15 mg oral TID 15 mg at 07/15/24 2142 cyanocobalamin 1,000 mcg oral Daily 1,000 mcg at 07/13/24 0856 dexamethasone 40 mg intravenous Q24H IVPB Stopped at 07/16/24 0045 DULoxetine 30 mg oral Daily 30 mg at 07/13/24 0856 enoxaparin 1 mg/kg subcutaneous Q12H ergocalciferol 50,000 Units oral Weekly 50,000 Units at 07/12/24 2254 gabapentin 100 mg oral TID 100 mg at 07/15/24 2142 insulin regular 0-12 Units subcutaneous Q6H EDUARD 2 Units at 07/16/24 0126 lactulose 20 g oral TID 20 g at 07/15/24 2328 meropenem 500 mg intravenous Q6H IVPB Stopped at 07/16/24 1436 pomalidomide 1 capsule oral Daily potassium chloride 20 mEq oral BID potassium chloride 10 mEq, lidocaine (PF) 10 mg/mL (1 %) 10 mg in sodium chloride 0.9 % (NS) 100 mLIVPB 10 mEq intravenous Q1H EDUARD 10 mEq at 07/16/24 1621 rifAXIMin 550 mg oral BID 550 mg at 07/15/24 2142 sodium phosphate 15 mmol intravenous TID 15 mmol at 07/16/24 1426 Continuous Infusions: dextrose 5 % (D5W) 50 mL/hr (07/16/24 1125) dilTIAZem 10 mg/hr (07/16/24 1624) PRN Meds:. acetaminophen dextrose docusate sodium glucagon glucose hydrALAZINE HYDROmorphone LORazepam meclizine melatonin ondansetron Or ondansetron PF oxyCODONE sodium chloride Physical Exam: Vital Signs Vitals: 07/16/24 1612 07/16/24 1620 07/16/24 1621 07/16/24 1633 BP: 109/66 110/65 113/55 117/67 Pulse: 158 156 155 155 Resp: Temp: 98 ??F (36.7 ??C) TempSrc: SpO2: 100% 99% 99% 98% Weight: Height: GENERAL more awake today, confused. in no acute distress. Ill appearing HEENT: Normocephalic, atraumatic. PERRL. No conjunctival injection. No icterus. Oropharynx clear without evidence of thrush or exudate. NECK: Supple HEART: RRR; No murmur. LUNGS: Clear to auscultation bilaterally without wheezing, rales, rhonchi. Normal respiratory effort. ABDOMEN: Soft, grimace to palpation in RUQ/LUQ nondistended. Positive bowel sounds. + guarding. Corpak EXT: No cyanosis, clubbing or edema. No palpable cord : Without Monet catheter. MSK: FROM without joint effusions noted arms/legs. SKIN: no generalized rashes noted. No peripheral stigmata of infective endocarditis NEURO: more awake. Does not follow commands. Not oriented Laboratory Data Lab Results Component Value Date WBC 6.1 07/16/2024 HGB 7.5 (L) 07/16/2024 HCT 24.0 (L) 07/16/2024 MCV 99 (H) 07/16/2024 PLT 41 (L) 07/16/2024 Lab Results Component Value Date GLUCOSE 131 (H) 07/16/2024 CALCIUM 8.6 07/16/2024 NA 149 (H) 07/16/2024 K 3.2 (L) 07/16/2024 CO2 20 (L) 07/16/2024 CL 119 (H) 07/16/2024 BUN 17 07/16/2024 CREATININE 0.61 07/16/2024 Estimated Creatinine Clearance: 60.7 mL/min (by C-G formula based on SCr of 0.61 mg/dL). Lab Results Component Value Date ALT 7 (L) 07/15/2024 AST 26 07/15/2024 ALKPHOS 53 07/15/2024 BILITOT 0.9 07/15/2024 Lab Results Component Value Date CRP < 0.2 (L) 06/17/2021 Lab Results Component Value Date SEDRATE 13 06/17/2021 Microbiology: Microbiology Results (last 7 days) Procedure Component Value Units Date/Time Blood Culture [[id number]] Collected: 07/12/241619 Order Status: Completed Specimen: Blood Updated: 07/16/241699 Result No growth in 4 days Blood Culture [[id number]] Collected: 07/12/241619 Order Status: Completed Specimen: Blood Updated: 07/16/241699 Result No growth in 4 days SARS-COV2/RT-PCR [[id number]] (Normal) Collected: 07/12/24 1647 Order Status: Completed Specimen: Nasopharyngeal Swab Updated: 07/12/24 173 SARS-COV2/RT-PCR Negative Narrative: Testing was performed using RT-PCR methodology approved for use under FDA Emergency Use Authorization only. Negative results do not preclude infection with the SARS-CoV-2 virus and should not be usedas the sole basis of a patient treatment or public health decisions. Negative results must be considered in the context of an individual's recent exposures, history, and presence of clinical signs/symptoms. Follow-up testing should be performed according to the current CDC recommendations. Blood Culture [[id number]] Order Status: Canceled Specimen: Blood Blood Culture [[id number]] Order Status: Canceled Specimen: Blood Radiology: Radiology Results (last 3 days) Procedure Component Value Units Date/Time XR chest AP portable [[id number]] Collected: 07/16/24 0832 Order Status: Completed Updated: 07/16/24 1635 Narrative: PORTABLE CHEST; HISTORY: Precordial chest pain. COMPARISON: July 12, 2024. FINDINGS: The heart is stable in size. There are low lung volumes with perihilar vascular enlargement and crowding. There is no pneumothorax. Impression: Stable exam. Images reviewed, interpreted, and dictated by Dr. Zac Ordoñez. Transcribed by Stacy Marte PA-C. XR KUB PORTABLE [[id number]] Collected: 07/15/24 1254 Order Status: Completed Updated: 07/15/241947 Narrative: SINGLE VIEW ABDOMEN HISTORY: Corpak placement. ABDOMEN: Single view of the abdomen demonstrates a nonobstructive bowel gas pattern. No abnormal calcifications are identified. There is a feeding tube with the tip in the stomach. Impression: Feeding tube tip in the stomach. Images reviewed, interpreted, and dictated by Dr. Zac Ordoñez. Transcribed by Stacy Marte PA-C. Ultrasound liver [[id number]] Collected: 07/14/242048 Order Status: Completed Updated: 07/14/242057 Narrative: ULTRASOUND OF THE LIVER HISTORY: Elevated ammonia. [...] toward the liver. Hepatic artery is patent. Impression: Normal-appearing portal vein. Apparent extrahepatic biliary ductal dilation, of uncertain etiology or significance, as discussed above. Images reviewed, interpreted and dictated by Dr. Bacilio Patel MD Impression: - Fever, source unclear; ? Medications/drug fever, CBD dilatation? 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 No acute abnormalities noted on recent CT C/A/P. LFTs were repeat and were WNL so cholangitis seems unlikely. - Acute toxic/metabolic encephalopathy- mental status was last normal on 07/10/24 per family. Seemsmore alert today and tracking with eyes but still altered - Recent Klebsiella UTI, was on Bactrim - CBD dilatation, 9.6mm per liver US, not noted on CT - no indication for ERCP per GI note, now on Rifaximin, Lactulose - Multiple myeloma, s/p BM transplant- now on Pomalidomide but has not had chemo in a month - Anemia - Thrombocytopenia - DVT on Eliquis - Hyperammonemia- lactulose - History of PCN allergy- Hives PLAN: - follow blood cultures, negative so far - could consider LP depending on clinical course and GOC. She has been on anticoagulation so this would need to be held prior to LP - Continue Meropenem. May consider stopping this soon depending on course - Acyclovir 10 mg/kg IV q 8hrs Dr. Aguirre has obtained the history, performed the PE, formulated the above treatment plan Copied text in this note has been reviewed and is accurate as of 07/16/24 I (Dr. Aguirre) independently obtained a history, performed a physical exam, and formulated the above assessment and plan. I reviewed the patient's labs, micro, radiographs, and medications today. I edited the above noted to reflect my findings. I discussed in length with the patient's son at bedside today. I discussed with Dr. Jose today. Complex MDM Gerson Aguirre MD 07/16/2024 * Chanel Salmeron MD - 07/16/2024 10:07 AM EDT Subjective Pt is more alert today, though remained nonverbal for me; son in room states she is doing better and will say a few words at times. Review of Systems Unable to perform ROS: Mental status change Objective Last Recorded Vitals Blood pressure 137/76, pulse 87, temperature 97.5 ??F (36.4 ??C), temperature source Oral, resp. rate 16, height 1.778 m (5' 10 ), weight 98 kg (216 lb), SpO2 92 %. Physical Exam Vitals and nursing note reviewed. Constitutional: Comments: Pt is awake but nonverbal; did not follow commands or participate in exam for me Eyes: Extraocular Movements: Extraocular movements intact. Pupils: Pupils are equal, round, and reactive to light. Pulmonary: Effort: Pulmonary effort is normal. Neurological: Comments: CN intact as I can assess- limited due to patient mentation She does have purposeful movement in BUE; she did not follow commands to participate in detailed exam, no obvious focal deficits noted Labs: Results for orders placed or performed during the hospital encounter of 07/12/24 (from the past 24 hour(s)) Glucose, Nova Meter Status: Abnormal Collection Time: 07/15/24 11:52 AM Result Value Ref Range POC-GLUCOSE 183 (H) 70 - 110 mg/dL [employer] Resource [employer] Consultant [id number] ECG 12 lead Status: None (In process) Collection Time: 07/15/24 1:44 PM Result Value Ref Range VENTRICULAR RATE EKG/MIN 97 BPM ATRIAL RATE (MCT) 97 BPM RI Interval 164 ms QRS-INTERVAL (MSEC) 84 ms QT Interval 402 ms QTC Interval 510 ms P [place] 68 degrees R AXIS (MCT) 19 degrees T Wave [place] 34 degrees [place] Diagnosis Normal sinus rhythm Prolonged QT Abnormal ECG When compared with ECG of 12-JUL-2024 16:05, No significant change was found Magnesium Status: Normal Collection Time: 07/15/24 2:39 PM Result Value Ref Range Magnesium 2.0 1.5 - 2.4 mg/dL Hepatic function panel Status: Abnormal Collection Time: 07/15/24 2:39 PM Result Value Ref Range Protein, Total 9.1 (H) 6.4 - 8.2 gm/dL Albumin 1.1 (L) 3.4 - 5.0 g/dL Total Bilirubin 0.9 0.2 - 1.2 mg/dL Bilirubin, Direct 0.6 (H) 0.0 - 0.2 mg/dL Alkaline Phosphatase 53 27 - 136 U/L Globulin 8 (H) 1.5 - 4.5 g/dL A/G Ratio 0.1 (L) 1.1 - 2.5 AST 26 5 - 37 U/L ALT 7 (L) 13 - 56 U/L Glucose, Nova Meter Status: Abnormal Collection Time: 07/15/24 6:20 PM Result Value Ref Range POC-GLUCOSE 158 (H) 70 - 110 mg/dL [employer] Consultant [id number] Glucose, Nova Meter Status: Abnormal Collection Time: 07/15/24 11:51 PM Result Value Ref Range POC-GLUCOSE 148 (H) 70 - 110 mg/dL [employer] Planning Consultant [id number] Glucose, Nova Meter Status: Abnormal Collection Time: 07/16/24 5:15 AM Result Value Ref Range POC-GLUCOSE 124 (H) 70 - 110 mg/dL [employer] Resource Planning Consultant [id number] Basic Metabolic Panel Status: Abnormal Collection Time: 07/16/24 6:54 AM Result Value Ref Range Sodium 149 (H) 136 - 146 meq/L Potassium 3.2 (L) 3.5 - 5.1 meq/L Chloride 119 (H) 102 - 112 meq/L CO2 20 (L) 21 - 32 meq/L Anion Gap 13 9 - 20 BUN 17 7 - 22 mg/dL Creatinine 0.61 0.55 - 1.02 mg/dL BUN/Creatinine 28 (H) 8 - 20 Glucose 141 (H) 74 - 106 mg/dL Calcium 8.6 8.4 - 10.1 mg/dL Osmolality Calc 300.0 eGFR (mL/min/1.73m2) >60 >=60 mL/min/1.73m2 CBC - Hemogram (SJ-BKR) Status: Abnormal Collection Time: 07/16/24 6:54 AM Result Value Ref Range WBC 6.1 4.0 - 10.0 K/??L RBC 2.42 (L) 3.93 - 5.22 M/??L Hemoglobin 7.5 (L) 11.2 - 15.7 GM/DL Hematocrit 24.0 (L) 34.1 - 44.9 % MCV 99 (H) 79 - 95 fL MCH 31.0 25.6 - 32.2 pg MCHC 31.3 (L) 32.2 - 35.5 GM/DL RDW 18.8 (H) 11.7 - 14.4 % Platelets 41 (L) 140 - 375 K/CU MM MPV 12.3 9.4 - 12.3 fL Ammonia Status: Abnormal Collection Time: 07/16/24 6:54 AM Result Value Ref Range Ammonia 61 (H) 11 - 32 ??mol/L XR chest AP portable Narrative: PORTABLE CHEST; HISTORY: Precordial chest pain. COMPARISON: July 12, 2024. FINDINGS: The heart is stable in size. There are low lung volumes with perihilar vascular enlargement and crowding. There is no pneumothorax. Impression: Stable exam. Images reviewed, interpreted, and dictated by Dr. Zac Ordoñez. Transcribed by Stacy Marte PA-C. Labs reviewed; ammonia 61 Assessment 64yo F with h/o multiple myeloma currently admitted with encephalopathy in setting of sepsis with UTI as well as hyperammonemia. She has continued with encephalopathy, though mentation slightly improved today; ammonia level is trending down but remains elevated. This is likely metabolic encephalopathy secondary to infection and metabolic derangements; MRI brain could be considered if mentation does not continue to improve but unlikely patient will tolerate that at this time. I suspect this would be low yield in any cause. Continue treatment of her acute medical issues; discussed with son, mentation may be slow to improve. I will plan to check back later this week if still admitted; call with any questions or concerns. * Chandra Jose MD - 07/16/2024 9:16 AM EDT PCP: MARILEE Muñoz Date of Admission: 07/12/2024 Date of Discharge Reason for Hospitalization Asher Daniel is a 64 y.o. female with PMHx of multiple myeloma which she is getting chemotherapy for biweekly and missed her last dose was brought in by her son with increasing confusion and altered mental status. Patient is intermittently confused. She has had multiple falls at home andhas an abrasion to right forehead. Pt is confused and able to answer some questions but most answers don't make sense. She has some lower abd discomfort. Consultations obtained -Physical and occupational therapy services -Case management -Oncology hematology -Gastroenterology -Neurology services -Infectious disease services Procedures performed -None so far Hospital course/follow-up 07/13 please note this is my first visit with this patient, she is somewhat somnolent at the time of my interaction no family in the room, marked anemia noted platelets also on the low side imaging studies reviewed patient appears quite sick at the moment H&P extensively reviewed as well 07/14 I have discussed extensively yesterday with the son over the phone and updated him about planof care, patient is quite sick, she is rather in critical condition, this morning she is still somnolent although easily arousable, low- grade fever overnight noted also received some Dilaudid, this morning I called and discussed with the nursing staff extensively as well, ammonia level slightly trending down after I initiated lactulose, prognosis not great, did receive blood transfusions, oncology hematology already on board here, due to her somnolent I would like to rule out hypercarbia therefore I will check arterial blood gas this was also communicated to the nursing staff, if patient deter iorates low threshold to transfer her to ICU critical illness unfortunately continues prognosis notgreat 07/15 patient seen and evaluated, remains quite sick overall, she is somnolent, unable to participate in history with me, son present in the room today, had long discussion with him today at bedside previously discussed with him extensively over the phone multiple times, patient had spiked a fever Tmax close 202 ??F last night, cultures are negative, she is on antibiotic therapy at present time, due to fever I will consult infectious disease services, patient has been placed on high-dose dexamethasone under the guidance of oncology hematology for underlying multiple myeloma, seen by gastroenterology and neurology services, rifaximin and lactulose has been added, ammonia level worsening, seems like patient unable to take oral medications on a consistent basis, I believe her prognosis not great at this time, plan discussed with the son extensively at bedside patient resisted full code 07/16 patient had good night seen and evaluated son at bedside mentation a lot better more awake follows some commands fever resolving antibiotics enhanced antiviral added sodium 149 potassium low son is happy with her progress patient's platelets hemoglobin remains low secondary to multiple myeloma, ammonia levels markedly improved after receiving rifaximin as well as lactulose 07/17 07/18 07/19 07/20 Diagnosis: -Sepsis in an immunocompromise host, present upon admission, source appears to be genitourinary -Suspected UTI/acute cystitis -Acute metabolic encephalopathy, now improving -Markedly elevated ammonia level -Marked symptomatic anemia with thrombocytopenia in the setting of known multiple myeloma -Documented history of DVT/PE -chronically on Xarelto -Essential hypertension -History of peripheral neuropathy -Electrolyte imbalance with hypernatremia and hypokalemia Plan 07/13 continue broad-spectrum antibiotics, follow-up on pending cultures, continue gentle IV fluid support, monitor volume status closely, continue to monitor hemoglobin hematocrit, transfuse blood as needed, monitor platelets, watch mentation closely, continue subset of home meds as indicated, monitor labs closely, PT OT eval, plan discussed with the patient but she is poorly cognizant of the situation, Complex medical issues with acute on chronic multiple co morbidities requiring multidisciplinary management. Holding Xarelto in the setting of marked anemia, oncology hematology consultation,in regards to elevated ammonia level adding lactulose and will monitor ammonia levels closely at this point, plan discussed with the nursing staff this morning 07/14 I will continue lactulose, continue to monitor ammonia levels on daily basis, I would like tocheck ABG to rule out hypercarbia as etiology of somnolence and mentation related issues, increase activity with physical therapy as much as possible continue lactulose at this point, continue to hold Xarelto up until hemoglobin improves further, follow oncology hematology recommendations, prognosis not great, discussed with the nursing extensively yesterday extensively discussed with the son as well updated him about plan of care and patient's poor prognosis, I have spent 32 minutes of critical care time taking care of this patient today 07/15 I will continue antibiotic therapy, enhancing coverage at this time given worsening fever, consulting infectious disease for their advice and input given patient's immunocompromise status, watch mentation closely, continue rifaximin and lactulose if she is able to take it, continue steroid added per oncology hematology, watch mentation closely, oncology thinks her prognosis is not great dueto advanced multiple myeloma, plan discussed with the patient's son extensively at bedside, discussed with the nursing staff as well 07/16 monitor electrolytes and replace as needed, continue antibiotics and antiviral per infectiousdisease, monitor labs closely monitor CBC on daily basis increase activity with physical therapy plan of care extensively discussed with son at bedside yet again, Complex medical issues with acute onchronic multiple co morbidities requiring multidisciplinary management. 07/17 07/18 07/19 07/20 DCP: Home vs inpatient rehab pending progress and medical stability Voice compressor operator portable technology ([employer]) is used for dictation of this note and sound-alike words might be erroneously placed despite reviewing the note for accuracy. Errors in dictation mayreflect use of voice recognition software and not all errors in compressor operator portable may have been detected prior to signing Hospital Medications Scheduled Meds: acetaminophen 650 mg rectal Once acyclovir 690 mg intravenous Q8H IVPB Stopped at 07/16/24 0310 albuterol 2.5 mg nebulization Q6H 2.5 mg at 07/16/24 0005 atorvastatin 10 mg oral Daily 10 mg at 07/13/24 08 budesonide 0.5 mg nebulization 2 times daily 0.5 mg at 07/16/24 0006 busPIRone 15 mg oral TID 15 mg at 07/15/24 214 cyanocobalamin 1,000 mcg oral Daily 1,000 mcg at 07/13/24 08 dexamethasone 40 mg intravenous Q24H IVPB Stopped at 07/16/24 0045 DULoxetine 30 mg oral Daily 30 mg at 07/13/24 08 ergocalciferol 50,000 Units oral Weekly 50,000 Units at 07/12/24 2254 gabapentin 100 mg oral TID 100 mg at 07/15/24 214 insulin regular 0-12 Units subcutaneous Q6H EDUARD 2 Units at 07/16/24 0126 lactulose 20 g oral TID 20 g at 07/15/24 2328 meropenem 500 mg intravenous Q6H 500 mg at 07/16/24 0600 pomalidomide 1 capsule oral Daily potassium chloride 20 mEq oral Daily 20 mEq at 07/13/24 0856 rifAXIMin 550 mg oral BID 550 mg at 07/15/24 2142 sodium phosphate 15 mmol intravenous TID IVPB Stopped at 07/16/24 0646 Continuous Infusions: sodium chloride 0.9 % (NS) 50 mL/hr (07/15/24 1519) PRN Meds:. acetaminophen dextrose docusate sodium glucagon glucose hydrALAZINE HYDROmorphone LORazepam meclizine melatonin ondansetron Or ondansetron PF oxyCODONE sodium chloride Physical Exam Vitals: 07/16/24 0700 BP: Pulse: Resp: Temp: SpO2: 92% General: NAD HEENT: Generally negative Neck: No JVD noted CVS: S1, S2, no S3 or S4 Lungs: Equal air entry symmetrical chest expansion GI: Soft, audible bowel sounds Neurological: Nonfocal Musculoskeletal: Generally unremarkable Skin: Warm without any noted rashes Labs & Imaging Recent Results (from the past 24 hour(s)) Glucose, Nova Meter Collection Time: 07/15/24 11:52 AM Result Value Ref Range POC-GLUCOSE 183 (H) 70 - 110 mg/dL [employer] [id number] ECG 12 lead Collection Time: 07/15/24 1:44 PM Result Value Ref Range VENTRICULAR RATE EKG/MIN 97 BPM ATRIAL RATE (MCT) 97 BPM RI Interval 164 ms QRS-INTERVAL (MSEC) 84 ms QT Interval 402 ms QTC Interval 510 ms P [place] 68 degrees R AXIS (MCT) 19 degrees T Wave [place] 34 degrees [place] Diagnosis Normal sinus rhythm Prolonged QT Abnormal ECG When compared with ECG of 12-JUL-2024 16:05, No significant change was found Magnesium Collection Time: 07/15/24 2:39 PM Result Value Ref Range Magnesium 2.0 1.5 - 2.4 mg/dL Hepatic function panel Collection Time: 07/15/24 2:39 PM Result Value Ref Range Protein, Total 9.1 (H) 6.4 - 8.2 gm/dL Albumin 1.1 (L) 3.4 - 5.0 g/dL Total Bilirubin 0.9 0.2 - 1.2 mg/dL Bilirubin, Direct 0.6 (H) 0.0 - 0.2 mg/dL Alkaline Phosphatase 53 27 - 136 U/L Globulin 8 (H) 1.5 - 4.5 g/dL A/G Ratio 0.1 (L) 1.1 - 2.5 AST 26 5 - 37 U/L ALT 7 (L) 13 - 56 U/L Glucose, Nova Meter Collection Time: 07/15/24 6:20 PM Result Value Ref Range POC-GLUCOSE 158 (H) 70 - 110 mg/dL [employer] [id number] Glucose, Nova Meter Collection Time: 07/15/24 11:51 PM Result Value Ref Range POC-GLUCOSE 148 (H) 70 - 110 mg/dL [employer] [id number] Glucose, Nova Meter Collection Time: 07/16/24 5:15 AM Result Value Ref Range POC-GLUCOSE 124 (H) 70 - 110 mg/dL [employer] [id number] Basic Metabolic Panel Collection Time: 07/16/24 6:54 AM Result Value Ref Range Sodium 149 (H) 136 - 146 meq/L Potassium 3.2 (L) 3.5 - 5.1 meq/L Chloride 119 (H) 102 - 112 meq/L CO2 20 (L) 21 - 32 meq/L Anion Gap 13 9 - 20 BUN 17 7 - 22 mg/dL Creatinine 0.61 0.55 - 1.02 mg/dL BUN/Creatinine 28 (H) 8 - 20 Glucose 141 (H) 74 - 106 mg/dL Calcium 8.6 8.4 - 10.1 mg/dL Osmolality Calc 300.0 eGFR (mL/min/1.73m2) >60 >=60 mL/min/1.73m2 CBC - Hemogram ([facility]) Collection Time: 07/16/24 6:54 AM Result Value Ref Range WBC 6.1 4.0 - 10.0 K/??L RBC 2.42 (L) 3.93 - 5.22 M/??L Hemoglobin 7.5 (L) 11.2 - 15.7 GM/DL Hematocrit 24.0 (L) 34.1 - 44.9 % MCV 99 (H) 79 - 95 fL MCH 31.0 25.6 - 32.2 pg MCHC 31.3 (L) 32.2 - 35.5 GM/DL RDW 18.8 (H) 11.7 - 14.4 % Platelets 41 (L) 140 - 375 K/CU MM MPV 12.3 9.4 - 12.3 fL Ammonia Collection Time: 07/16/24 6:54 AM Result Value Ref Range Ammonia 61 (H) 11 - 32 ??mol/L XR chest AP portable Result Date: 07/13/2024 PORTABLE CHEST HISTORY: Mental status change for 2 days., Fall 2 days prior COMPARISON: 07/02/2024.FINDINGS: A single portable radiograph of the chest was performed. The heart is normal in size. There is a vascular congestion. There is decreased lung volume with atelectasis. There is no edema or infiltrate. The bony thorax appears intact. Underinflation with no acute process. 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 Errors in dictation may reflect use of voice recognition software and not all errors in transcripti on may have been detected prior to signing. CT brain without IV contrast Result Date: 07/12/[address] 07/12/2024 5:06 PM HISTORY: [...] are unremarkable. Skull is intact. No skull fracturesare evident. Innumerable lytic lesions scattered throughout the calvarium consistent with patient'sknown diagnosis of multiple myeloma. No pathologic fracture is evident. No acute intracranial process. Innumerable lytic lesions [...] study was performed with techniques to keep radiationdoses as low as reasonably achievable, (ALARA). Individualized [...] granulomatous disease exposure. ABDOMEN: The liver is homogenouswith no focal abnormality. The spleen is unremarkable. Stable left adrenal nodule. The pancreas is unremarkable. The kidneys are unremarkable, without evidence of mass or hydronephrosis. The aorta isnormal in caliber. There is no free fluid or adenopathy. Postsurgical changes to the stomach are noted. PELVIS: The GI tract demonstrates no obstruction. The appendix is normal. The urinary bladder is unremarkable. There is no free fluid, adenopathy, or inflammatory process. Genital organs are unremarkable. No findings to suggest ovarian torsion. BONES: No acute fractures. IMPRESSION: 1. No acuteabnormality identified in the chest/abdomen/pelvis. 2. Stable left adrenal nodule. 3. No definite evidence to suggest cholelithiasis on today's study. 4. No significant interval change in innumerablelytic lesions throughout the bones consistent with patient's known history of multiple myeloma. Images reviewed, interpreted, and dictated by Trino Nguyen M.D. CT chest abdomen pelvis with contrast Result Date: 07/12/[address] 07/12/2024 5:06 PM HISTORY: [...] are unremarkable. Skull is intact. No skull fracturesare evident. Innumerable lytic lesions scattered throughout the calvarium consistent with patient'sknown diagnosis of multiple myeloma. No pathologic fracture is evident. No acute intracranial process. Innumerable lytic lesions [...] study was performed with techniques to keep radiationdoses as low as reasonably achievable, (ALARA). Individualized [...] granulomatous disease exposure. ABDOMEN: The liver is homogenouswith no focal abnormality. The spleen is unremarkable. Stable left adrenal nodule. The pancreas is unremarkable. The kidneys are unremarkable, without evidence of mass or hydronephrosis. The aorta isnormal in caliber. There is no free fluid or adenopathy. Postsurgical changes to the stomach are noted. PELVIS: The GI tract demonstrates no obstruction. The appendix is normal. The urinary bladder is unremarkable. There is no free fluid, adenopathy, or inflammatory process. Genital organs are unremarkable. No findings to suggest ovarian torsion. BONES: No acute fractures. IMPRESSION: 1. No acuteabnormality identified in the chest/abdomen/pelvis. 2. Stable left adrenal nodule. 3. No definite evidence to suggest cholelithiasis on today's study. 4. No significant interval change in innumerablelytic lesions throughout the bones consistent with patient's known history of multiple myeloma. Images reviewed, interpreted, and dictated by Trino Nguyen M.D. CT ABDOMEN/PELVIS WITH IV CONTRAST Result Date: 07/04/2024 CT SCAN OF THE ABDOMEN AND PELVIS WITH CONTRAST 07/04/2024 4:10 PM HISTORY: Acute generalized weakness. COMPARISON: February 04, 2022. PROCEDURE: The patient was injected with IV contrast. Axial images were obtained from the lung bases to the pubic symphysis by computed tomography. This study was performed with techniques to keep radiation doses as low as reasonably achievable, (ALARA). Individualizeddose reduction techniques using automated exposure control or adjustment of mA and/or kV according to the patient size were employed. FINDINGS: ABDOMEN: There is mild bibasilar atelectasis. The heartis normal in size. The liver is homogenous with no focal abnormality. There may be stones within the gallbladder. The spleen is unremarkable. There is a nonspecific 10 mm left adrenal nodule, new when compared to prior. The pancreas is unremarkable. The kidneys are unremarkable, without evidence ofmass or hydronephrosis. The aorta is normal in [...] disc disease is seen throughout the spine. Possible cholelithiasis. Otherwise, no acute process. Nonspecific left adrenal nodule. Numerous lytic lesions throughout the bones consistent with patient's known history of multiple myeloma. Images reviewed, interpreted, and dictated by Dr. Jaleesa Crabtree. Transcribed by Jaswant Lopez PA-C XR chest 1 view portable / bedside Result Date: 07/04/2024 PORTABLE CHEST. 07/04/2024 12:31 PM HISTORY: Weakness, multiple myeloma, nausea and vomiting. COMPARISON: January 2018. FINDINGS: The cardiac silhouette is normal in size. The mediastinum is unremarkable. The lungs are clear. There is no pneumothorax. No acute cardiopulmonary process. Images reviewed, interpreted, and dictated by Dr. Mert Knight. Transcribed by Silvia Pablo PA-C. Electronically signed by: Chandra Jose MD, 07/16/2024 at 8:13 AM EDT * Itz Freed, PT - 07/15/2024 3:54 PM EDT Images from the original note were not included. Inpatient Physical Therapy Initial Evaluation Patient Name: Asher Daniel Date of : 1960 Date of Evaluation: 07/15/24 In Time 1525 Out Time 1542 Session Duration 17 minutes Time spent for nursing collaboration, chart and systems review, and clinical reasoning. 8 minutes Total Time 25 minutes Pt is a 64 y.o. female admitted on 07/12/2024 with Transient alteration of awareness [R40.4] Anemia [D64.9] Sepsis (HCC) [A41.9]. 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HCC) Chronic low back pain DVT (deep venous thrombosis) (HCC) History of shingles 12/2019 Hypertension Multiple myeloma (HCC) Peripheral neuropathy Pulmonary embolism (HCC) Past Surgical History: Procedure Laterality Date BONE MARROW BIOPSY TOTAL KNEE ARTHROPLASTY General Visit Type: Initial Evaluation Approved By: Nurse Marquez Patient Disposition Upon Entry: Supine in bed, Nursing at bedside, Visitor/Family present Patient Verified By: Name and Date of Precautions Weight-Bearing Status: No Restrictions Precautions: Fall risk Isolation Precautions: Standard Lines, tubes, drains, airway: blood pressure cuff, nasogastric feeding tube, peripheral IV, telemetry Subjective Subjective: Patient unable to verbalize consent, patient would respond only to noxious stimuli, despite opening eyes, looking around. Pain FLACC SCALE CATEGORY SCORING FACE (REST) (1) Occasional grimace or frown, withdrawn, disinterested LEGS (REST) (2) Kicking or legs drawn up ACTIVITY (REST) (1) Squirming, shifting, back and forth, tense CRY (REST) (1) Moans or whimpers; occasional complaint CONSOLABILITY (REST) (2) Difficult to console or comfort SCORE 8/10. Pain intervention: RN aware, patient previously medicated. Repositioning. Response to intervention: Not changed Cognition Overall cognitive status: Impaired Arousal/Alertness: Patient responds only to noxious stimuli, moans/wails Following commands: Unable to register or respond to prompts this afternoon Deficits: Not aware of deficits Home Living All information provided by son, who was present in room with patient. Patient reports patient is both neurologically and cognitively intact at baseline, reports she drove herself to MD appointments,and ambulated short distances without use of AD occasionally. Lives with: Son Home Type: House Home Layout: One level Stairs to enter: handrail on right ascending, ramped entrance Stairs inside home: none Home Equipment: Rolling walker, Single point cane Functional Mobility PLOF: Family/caregiver reports patient was modified independent with all functional mobility with the use of Single point cane Activities of Daily Living PLOF: Family/caregiver reports patient was modified independent with allADL's with the use of Single point cane Objective Vitals No signs, symptoms indicative of cardiorespiratory distress observed or reported. Basic Strength Assessment Unable to assess, no volitional movement performed Range of Motion Assessment Grossly WFL PROM BLEs, Limited RUE elevation PROM Sensation Unable to assess Coordination Unable to assess, no volitional movement performed Functional Mobility Bed Mobility Unable to assess, no volitional movement performed Transfers Unable to assess, no volitional movement performed Gait Unable to assess, no volitional movement performed Stair Management Unable to assess, no volitional movement performed Wheelchair Mobility Unable to assess, no volitional movement performed Outcome Measures Unable to assess, no volitional movement performed AM-PAC Basic Mobility Inpatient Short Form How much difficulty does the patient currently have: Turning over in bed (including adjusting bedclothes, sheets, and blankets)? (1) Total/Unable (not able to do the activity or can only perform the activity using assistive devices or requires assistance from another person, including supervision or cueing for safety) Sitting down on and standing up from a chair with arms (e.g., wheelchair, bedside commode, etc.)? (1) Total/Unable (not able to do the activity or can only perform the activity using assistive devices or requires assistance from another person, including supervision or cueing for safety) Moving from lying on back to sitting on side of bed? (1) Total/Unable (not able to do the activity or can only perform the activity using assistive devices or requires assistance from another person,including supervision or cueing for safety) How much help from another person does the patient currently need: Moving to and from a bed to a chair (including a wheelchair)? (1) Total/Unable (Total assist/dependent) Need to walk in hospital room? (1) Total/Unable (Total assist/dependent) Climbing 3-5 steps with a railing? (1) Total/Unable (Total assist/dependent) Score Raw score=6 t-Scale score=23.55 Standard error=4.57 CMS 0-100%=100.00% MDC=4.72 A raw score of >= 16 is significantly associated with increased odds of discharge to home in addition to consideration made for the patient's cognition and social determinants of health. Balance Unable to assess Activity Tolerance Patient limited with activity/intervention due to pain, cognitive impairment, and difficulty following commands Treatment Assessment for spontaneous volitional activity and responsiveness to cuing performed, no active participation or volitional movement either spontaneously performed or performed in response to cuing this afternoon. PROM assessment performed, and discussed role of PT, goals of Evaluation, and PT POC with family present. Family demonstrated understanding, asked appropriate questions, and is in agreement with plan, will notify nursing of patient demonstrates improved responsiveness. Assessment Patient did not demonstrate volitional activity either spontaneously or in response to prompting this afternoon. Patient responds only to noxious stimuli at this time, and was dependent for repositioning. Patient currently unable to actively participate in skilled PT intervention at this time. Discussed plan of care with family, and they agree to notify nursing if patient demonstrates increased responsiveness while she remains in hospital. Patient's son reports high level of baseline functioning prior to hospitalization, Patient will likely benefit from skilled PT intervention once she is capable of actively participating in skilled PT treatments. Problems: Decreased functional mobility, Decreased activity tolerance, Perceptual deficits, Decreased tolerance to upright positioning Rehab potential: Guarded due to current cognitive status. Plan Treatment Plan: Therapeutic Exercise, Therapeutic Activity, Neuromuscular Re- education, Transfer Training, Balance Training, Strengthening, Patient/Family/Caregiver Education PT Frequency/Duration: 1x/week to educate family members, monitor for signs of improved cognitive status/readiness for skilled physical therapy intervention. On a trial basis, for up to 14 days if noimprovement cognitively. Recommendations Discharge recommendations: Discharge recommendations pending progression of acute hospital stay secondary to the patient's medical status DME recommendations: Unable to make recommendations at this time. Goals Supine to/from sit: Mod assist, HOB elevated, for active participation in skilled PT intervention, decreased caregiver burden Sit to/from stand: Max assist x1, for improved functional ability, pressure relief Family participation in care: Patient's family will demonstrate proficiency in essential positioning and PROM to prevent pressure ulcers, maximize patient's participation in skilled PT intervention when medically/cognitively appropriate. Target Date: 07/29/2024 Goals were discussed with family Education Patient/Visitors educated on role of physical therapy, plan of care, and positioning for pressure relief (heels) and following, family were, (patient was not) able to verbalize and nod head in understanding. No further questions or concerns stated. Patient Disposition Upon Leaving Supine in bed, Call Light/Pull Cord in reach, All needs met and within reach, Nursing aware/notified, HOB >30 degrees, Visitor/Family present, Pillow placed to offload pressure on heels BLEs If this patient discharges prior to next therapy session, this note serves as the patient's discharge summary. Electronically signed by Itz Freed, PT - 07/15/24 - 3:54 PM EDT * Itz Freed, PT - 07/15/2024 11:51 AM EDT Images from the original note were not included. Inpatient Physical Therapy Attempt to Treat Patient Name: Asher Daniel Birthday: 1960 Date of Attempt: 07/15/2024 PT orders received and chart reviewed prior to checking on patient. Patient sleeping, family present upon PT entering room. Patient's family requests PT not wake patient, notes she has just been giveDialudid, and would not be able to actively participate in PT evaluation this morning. Patient's family states she is cognitively and neurologically intact at baseline. PT to check back as time and patient's ability allow. Electronically signed by Itz Freed, PT - 07/15/2024 - 11:52 AM EDT * Chandra Jose MD - 07/15/2024 9:02 AM EDT PCP: MARILEE Muñoz Date of Admission: 07/12/2024 Date of Discharge Reason for Hospitalization Asher Daniel is a 64 y.o. female with PMHx of multiple myeloma which she is getting chemotherapy for biweekly and missed her last dose was brought in by her son with increasing confusion and altered mental status. Patient is intermittently confused. She has had multiple falls at home andhas an abrasion to right forehead. Pt is confused and able to answer some questions but most answers don't make sense. She has some lower abd discomfort. Consultations obtained -Physical and occupational therapy services -Case management -Oncology hematology -Gastroenterology -Neurology services -Infectious disease services Procedures performed -None so far Hospital course/follow-up 07/13 please note this is my first visit with this patient, she is somewhat somnolent at the time of my interaction no family in the room, marked anemia noted platelets also on the low side imaging studies reviewed patient appears quite sick at the moment H&P extensively reviewed as well 07/14 I have discussed extensively yesterday with the son over the phone and updated him about planof care, patient is quite sick, she is rather in critical condition, this morning she is still somnolent although easily arousable, low- grade fever overnight noted also received some Dilaudid, this morning I called and discussed with the nursing staff extensively as well, ammonia level slightly trending down after I initiated lactulose, prognosis not great, did receive blood transfusions, oncology hematology already on board here, due to her somnolent I would like to rule out hypercarbia therefore I will check arterial blood gas this was also communicated to the nursing staff, if patient deter iorates low threshold to transfer her to ICU critical illness unfortunately continues prognosis notgreat 07/15 patient seen and evaluated, remains quite sick overall, she is somnolent, unable to participate in history with me, son present in the room today, had long discussion with him today at bedside previously discussed with him extensively over the phone multiple times, patient had spiked a fever Tmax close 202 ??F last night, cultures are negative, she is on antibiotic therapy at present time, due to fever I will consult infectious disease services, patient has been placed on high-dose dexamethasone under the guidance of oncology hematology for underlying multiple myeloma, seen by gastroenterology and neurology services, rifaximin and lactulose has been added, ammonia level worsening, seems like patient unable to take oral medications on a consistent basis, I believe her prognosis not great at this time, plan discussed with the son extensively at bedside patient resisted full code 07/16 07/17 07/18 07/19 07/20 Diagnosis: -Sepsis in an immunocompromise host, present upon admission, source appears to be genitourinary -Suspected UTI/acute cystitis -Acute metabolic encephalopathy -Markedly elevated ammonia level -Marked symptomatic anemia with thrombocytopenia in the setting of known multiple myeloma -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 Holding Xarelto in the setting of marked anemia, oncology hematology consultation,in regards to elevated ammonia level adding lactulose and will monitor ammonia levels closely at this point, plan discussed with the nursing staff this morning 07/14 I will continue lactulose, continue to monitor ammonia levels on daily basis, I would like tocheck ABG to rule out hypercarbia as etiology of somnolence and mentation related issues, increase activity with physical therapy as much as possible continue lactulose at this point, continue to hold Xarelto up until hemoglobin improves further, follow oncology hematology recommendations, prognosis not great, discussed with the nursing extensively yesterday extensively discussed with the son as well updated him about plan of care and patient's poor prognosis, I have spent 32 minutes of critical care time taking care of this patient today 07/15 I will continue antibiotic therapy, enhancing coverage at this time given worsening fever, consulting infectious disease for their advice and input given patient's immunocompromise status, watch mentation closely, continue rifaximin and lactulose if she is able to take it, continue steroid added per oncology hematology, watch mentation closely, oncology thinks her prognosis is not great dueto advanced multiple myeloma, plan discussed with the patient's son extensively at bedside, discussed with the nursing staff as well 07/16 07/17 07/18 07/19 07/20 DCP: Home vs inpatient rehab pending progress and medical stability Voice compressor operator portable technology ([employer]) is used for dictation of this note and sound-alike words might be erroneously placed despite reviewing the note for accuracy. Errors in dictation mayreflect use of voice recognition software and not all errors in compressor operator portable may have been detected prior to signing Hospital Medications Scheduled Meds: acetaminophen 650 mg rectal Once albuterol 2.5 mg nebulization Q6H 2.5 mg at 07/15/24 0454 atorvastatin 10 mg oral Daily 10 mg at 07/13/24 0856 budesonide 0.5 mg nebulization 2 times daily 0.5 mg at 07/14/24 2351 busPIRone 15 mg oral TID 15 mg at 07/14/24 1248 cefTRIAXone 1 g intravenous Q24H IVPB Stopped at 07/14/24 1659 cyanocobalamin 1,000 mcg oral Daily 1,000 mcg at 07/13/24 0856 dexamethasone 40 mg intravenous Q24H IVPB Stopped at 07/14/24 2259 DULoxetine 30 mg oral Daily 30 mg at 07/13/24 0856 ergocalciferol 50,000 Units oral Weekly 50,000 Units at 07/12/24 2254 gabapentin 100 mg oral TID 100 mg at 07/14/24 1248 lactulose 20 g oral TID 20 g at 07/15/24 0900 pomalidomide 1 capsule oral Daily potassium chloride 20 mEq oral Daily 20 mEq at 07/13/24 0856 rifAXIMin 550 mg oral BID Continuous Infusions: dextrose 5 %-sodium chloride 0.9 % (D5NS) 50 mL/hr (07/14/24 1633) PRN Meds:. acetaminophen docusate sodium hydrALAZINE HYDROmorphone LORazepam meclizine melatonin ondansetron Or ondansetron PF oxyCODONE sodium chloride Physical Exam Vitals: 07/15/24 0853 BP: Pulse: 97 Resp: Temp: SpO2: 100% General: NAD HEENT: Generally negative Neck: No JVD noted CVS: S1, S2, no S3 or S4 Lungs: Equal air entry symmetrical chest expansion GI: Soft, audible bowel sounds Neurological: Nonfocal Musculoskeletal: Generally unremarkable Skin: Warm without any noted rashes Labs & Imaging Recent Results (from the past 24 hour(s)) Ammonia Collection Time: 07/15/24 6:13 AM Result Value Ref Range Ammonia 81 (H) 11 - 32 ??mol/L Basic Metabolic Panel Collection Time: 07/15/24 6:13 AM Result Value Ref Range Sodium 144 136 - 146 meq/L Potassium 3.9 3.5 - 5.1 meq/L Chloride 117 (H) 102 - 112 meq/L CO2 20 (L) 21 - 32 meq/L Anion Gap 11 9 - 20 BUN 14 7 - 22 mg/dL Creatinine 0.70 0.55 - 1.02 mg/dL BUN/Creatinine 20 8 - 20 Glucose 239 (H) 74 - 106 mg/dL Calcium 8.6 8.4 - 10.1 mg/dL Osmolality Calc 295.1 eGFR (mL/min/1.73m2) >60 >=60 mL/min/1.73m2 CBC - Hemogram (-[facility]) Collection Time: 07/15/24 6:13 AM Result Value Ref Range WBC 5.4 4.0 - 10.0 K/??L RBC 2.41 (L) 3.93 - 5.22 M/??L Hemoglobin 7.6 (L) 11.2 - 15.7 GM/DL Hematocrit 24.3 (L) 34.1 - 44.9 % MCV 101 (H) 79 - 95 fL MCH 31.5 25.6 - 32.2 pg MCHC 31.3 (L) 32.2 - 35.5 GM/DL RDW 19.0 (H) 11.7 - 14.4 % Platelets 51 (L) 140 - 375 K/CU MM MPV 11.8 9.4 - 12.3 fL XR chest AP portable Result Date: 07/13/2024 PORTABLE CHEST HISTORY: Mental status change for 2 days., Fall 2 days prior COMPARISON: 07/02/2024.FINDINGS: A single portable radiograph of the chest was performed. The heart is normal in size. There is a vascular congestion. There is decreased lung volume with atelectasis. There is no edema or infiltrate. The bony thorax appears intact. Underinflation with no acute process. 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 Errors in dictation may reflect use of voice recognition software and not all errors in transcripti on may have been detected prior to signing. CT brain without IV contrast Result Date: 07/12/[address] 07/12/2024 5:06 PM HISTORY: [...] are unremarkable. Skull is intact. No skull fracturesare evident. Innumerable lytic lesions scattered throughout the calvarium consistent with patient'sknown diagnosis of multiple myeloma. No pathologic fracture is evident. No acute intracranial process. Innumerable lytic lesions [...] study was performed with techniques to keep radiationdoses as low as reasonably achievable, (ALARA). Individualized [...] granulomatous disease exposure. ABDOMEN: The liver is homogenouswith no focal abnormality. The spleen is unremarkable. Stable left adrenal nodule. The pancreas is unremarkable. The kidneys are unremarkable, without evidence of mass or hydronephrosis. The aorta isnormal in caliber. There is no free fluid or adenopathy. Postsurgical changes to the stomach are noted. PELVIS: The GI tract demonstrates no obstruction. The appendix is normal. The urinary bladder is unremarkable. There is no free fluid, adenopathy, or inflammatory process. Genital organs are unremarkable. No findings to suggest ovarian torsion. BONES: No acute fractures. IMPRESSION: 1. No acuteabnormality identified in the chest/abdomen/pelvis. 2. Stable left adrenal nodule. 3. No definite evidence to suggest cholelithiasis on today's study. 4. No significant interval change in innumerablelytic lesions throughout the bones consistent with patient's known history of multiple myeloma. Images reviewed, interpreted, and dictated by Trino Nguyen M.D. CT chest abdomen pelvis with contrast Result Date: 07/12/[address] 07/12/2024 5:06 PM HISTORY: [...] are unremarkable. Skull is intact. No skull fracturesare evident. Innumerable lytic lesions scattered throughout the calvarium consistent with patient'sknown diagnosis of multiple myeloma. No pathologic fracture is evident. No acute intracranial process. Innumerable lytic lesions [...] study was performed with techniques to keep radiationdoses as low as reasonably achievable, (ALARA). Individualized [...] granulomatous disease exposure. ABDOMEN: The liver is homogenouswith no focal abnormality. The spleen is unremarkable. Stable left adrenal nodule. The pancreas is unremarkable. The kidneys are unremarkable, without evidence of mass or hydronephrosis. The aorta isnormal in caliber. There is no free fluid or adenopathy. Postsurgical changes to the stomach are noted. PELVIS: The GI tract demonstrates no obstruction. The appendix is normal. The urinary bladder is unremarkable. There is no free fluid, adenopathy, or inflammatory process. Genital organs are unremarkable. No findings to suggest ovarian torsion. BONES: No acute fractures. IMPRESSION: 1. No acuteabnormality identified in the chest/abdomen/pelvis. 2. Stable left adrenal nodule. 3. No definite evidence to suggest cholelithiasis on today's study. 4. No significant interval change in innumerablelytic lesions throughout the bones consistent with patient's known history of multiple myeloma. Images reviewed, interpreted, and dictated by Trino Nguyen M.D. CT ABDOMEN/PELVIS WITH IV CONTRAST Result Date: 07/04/2024 CT SCAN OF THE ABDOMEN AND PELVIS WITH CONTRAST 07/04/2024 4:10 PM HISTORY: Acute generalized weakness. COMPARISON: February 04, 2022. PROCEDURE: The patient was injected with IV contrast. Axial images were obtained from the lung bases to the pubic symphysis by computed tomography. This study was performed with techniques to keep radiation doses as low as reasonably achievable, (ALARA). Individualizeddose reduction techniques using automated exposure control or adjustment of mA and/or kV according to the patient size were employed. FINDINGS: ABDOMEN: There is mild bibasilar atelectasis. The heartis normal in size. The liver is homogenous with no focal abnormality. There may be stones within the gallbladder. The spleen is unremarkable. There is a nonspecific 10 mm left adrenal nodule, new when compared to prior. The pancreas is unremarkable. The kidneys are unremarkable, without evidence ofmass or hydronephrosis. The aorta is normal in [...] disc disease is seen throughout the spine. Possible cholelithiasis. Otherwise, no acute process. Nonspecific left adrenal nodule. Numerous lytic lesions throughout the bones consistent with patient's known history of multiple myeloma. Images reviewed, interpreted, and dictated by Dr. Jaleesa Crabtree. Transcribed by Jaswant Lopez PA-C XR chest 1 view portable / bedside Result Date: 07/04/2024 PORTABLE CHEST. 07/04/2024 12:31 PM HISTORY: Weakness, multiple myeloma, nausea and vomiting. COMPARISON: January 2018. FINDINGS: The cardiac silhouette is normal in size. The mediastinum is unremarkable. The lungs are clear. There is no pneumothorax. No acute cardiopulmonary process. Images reviewed, interpreted, and dictated by Dr. Mert Knight. Transcribed by Silvia Pablo PA-C. Electronically signed by: Chandra Jose MD, 07/15/2024 at 8:13 AM EDT * Adelaida Chowdhury PA-C - 07/15/2024 7:58 AM EDT Gastroenterology Progress Note Name: Asher Daniel Admit Date: 07/12/2024 LOS: 3 days Location:[address] [place] [address] PCP on file: MARILEE Muñoz Principal Problem: Sepsis (HCC) ASSESSMENT & PLAN for 07/15/2024 Principal Problem: Sepsis (HCC) Assessment: 64 y/o with MM on chemotherapy presents to our facility for increased confusion over the past week that has improved since admission per son. Hgb was 5.2 on arrival and has improved with 2 units of PRBCs. There is no overt bleeding. Ammonia level on arrival 101, now 71. No history liver disease. OnLactulose currently. -07/15/24: US with no clear evidence of cirrhosis, fatty changes noted, dilated CBD (9.6mm) howeverliver enzymes normal and CBD appeared normal on recent contrasted CT. Normal flow. Ammonia 81. Hgb stable, 7.6. Recommendations: No obvious liver disease on imaging No indication for ERCP with normal liver enzymes Continue lactulose and Xifaxan. Unable to take PO currently. Recommend [place]ak to give meds and initiate tube feeds if necessary Hyperammonemia likely related to sepsis r/t UTI vs medication induced ABX per primary team Anemia is likely chemotherapy induced. No signs of overt GI bleeding. No plans for endoscopic evaluation Supportive care Will sign off. Please call if needed SUBJECTIVE: Asher Daniel non-communicative. Lethargic appearing. No PO intake. Review of systems: Review of Systems Unable to perform ROS: Mental status change OBJECTIVE: Vitals Temp: 99.5 ??F (37.5 ??C) - BP: (!) 141/82 - Pulse: 94 - Resp: 18 - SpO2: 96 % Temp Min: 97.7 ??F (36.5 ??C) Max: 102 ??F (38.9 ??C) I / O I/O last 3 completed shifts: In: 120 [P.O.:120] Out: 1550 [Urine:1550] Weight / BMI Recent weight: @FLOWDT(14::1)@ - Body mass index is 30.99 kg/m??. Admit weight: 98 kg (216 lb) [place] - Gault (eCrCl) Estimated Creatinine Clearance: 60.7 mL/min (by C-G formula based on SCr of 0.7 mg/dL). Physical Exam Constitutional: General: She is not in acute distress. Appearance: She is ill-appearing. Comments: No family at bedside HENT: Head: Normocephalic and atraumatic. Pulmonary: Effort: Pulmonary effort is normal. Abdominal: General: There is no distension. Palpations: Abdomen is soft. Skin: General: Skin is warm and dry. Coloration: Skin is not jaundiced. Neurological: General: No focal deficit present. Mental Status: She is lethargic and disoriented. Data: Results for orders placed or performed during the hospital encounter of 07/12/24 (from the past 24 hour(s)) Blood gas, arterial Status: Abnormal Collection Time: 07/14/24 8:15 AM Result Value Ref Range pH, Arterial 7.50 (H) 7.35 - 7.45 pCO2, Arterial 27 (L) 35 - 45 mm Hg pO2, Arterial 82 80 - 100 mm Hg HCO3, Arterial 21 20 - 26 mmol/L Base Excess, Arterial -2.1 (L) -2.0 - 2.0 mmol/L O2 Sat, Arterial 97.5 95.0 - 100.0 % CTO2 ARTERIAL 10.4 mmol/L THB ARTERIAL 7.7 (L) 12.0 - 18.0 g/dL PaO2/FIO2 calculated 389.0 [facility] S[facility] Left Radial Arterial Puncture Yes Blood Gas PT Temperature C 37.0 Rafael's Test Acceptable ABG Number of Draw Attempts 1 FIO2 21.0 Blood Gas Temperature Corrected Results No No Ammonia Status: Abnormal Collection Time: 07/15/24 6:13 AM Result Value Ref Range Ammonia 81 (H) 11 - 32 ??mol/L Basic Metabolic Panel Status: Abnormal Collection Time: 07/15/24 6:13 AM Result Value Ref Range Sodium 144 136 - 146 meq/L Potassium 3.9 3.5 - 5.1 meq/L Chloride 117 (H) 102 - 112 meq/L CO2 20 (L) 21 - 32 meq/L Anion Gap 11 9 - 20 BUN 14 7 - 22 mg/dL Creatinine 0.70 0.55 - 1.02 mg/dL BUN/Creatinine 20 8 - 20 Glucose 239 (H) 74 - 106 mg/dL Calcium 8.6 8.4 - 10.1 mg/dL Osmolality Calc 295.1 eGFR (mL/min/1.73m2) >60 >=60 mL/min/1.73m2 CBC - Hemogram (-[facility]) Status: Abnormal Collection Time: 07/15/24 6:13 AM Result Value Ref Range WBC 5.4 4.0 - 10.0 K/??L RBC 2.41 (L) 3.93 - 5.22 M/??L Hemoglobin 7.6 (L) 11.2 - 15.7 GM/DL Hematocrit 24.3 (L) 34.1 - 44.9 % MCV 101 (H) 79 - 95 fL MCH 31.5 25.6 - 32.2 pg MCHC 31.3 (L) 32.2 - 35.5 GM/DL RDW 19.0 (H) 11.7 - 14.4 % Platelets 51 (L) 140 - 375 K/CU MM MPV 11.8 9.4 - 12.3 fL Radiology Results (last 3 days) Procedure Component Value Units Date/Time Ultrasound liver [[id number]] Collected: 07/14/242048 Order Status: Completed Updated: 07/14/242057 Narrative: ULTRASOUND OF THE LIVER HISTORY: Elevated ammonia. [...] toward the liver. Hepatic artery is patent. Impression: Normal-appearing portal vein. Apparent extrahepatic biliary ductal dilation, of uncertain etiology or significance, as discussed above. Images reviewed, interpreted and dictated by Dr. Bacilio Patel MD XR chest AP portable [[id number]] Collected: 07/12/24 2358 Order Status: Completed Updated: 07/13/24 0042 Narrative: PORTABLE CHEST HISTORY: Mental status change for 2 days., Fall 2 days prior COMPARISON: 07/02/2024. FINDINGS: A single portable radiograph of the chest was performed. The heart is normal in size. There is a vascular congestion. There is decreased lung volume with atelectasis. There is no edema or infiltrate. The bony thorax appears intact. Impression: Underinflation with no acute process. 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 Errors in dictation may reflect use of voice recognition software and not all errors in compressor operator portable may have been detected prior to signing. CT brain without IV contrast [[id number]] Collected: 07/12/24 1740 Order Status: Completed Updated: 07/12/242034 Narrative: HEAD CT 07/12/2024 5:06 PM HISTORY: Acute [...] multiple myeloma. No pathologic fracture is evident. Impression: No acute intracranial process. Innumerable lytic lesions [...] interpreted, and dictated by Trino Nguyen M.D. CT chest abdomen pelvis with contrast [[id number]] Collected: 07/12/240 Order Status: Completed Updated: 07/12/242034 Narrative: HEAD CT 07/12/2024 5:06 PM HISTORY: Acute [...] multiple myeloma. No pathologic fracture is evident. Impression: No acute intracranial process. Innumerable lytic lesions [...] interpreted, and dictated by Trino Nguyen M.D. Electronically signed by: Adelaida Chowdhury PA-C, 07/15/2024 at 7:59 AM Cosigned by Latonya Willoughby MD at 07/15/2024 2:07 PM EDT * Ken Urrutia MD - 07/14/2024 6:05 PM EDT Hematology Oncology Follow Up Note History of Present Illness: Patient was seen and examined today. She was very somnolent and lethargic. Patient looked very uncomfortable and in pain. Family members were at the bedside. 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HCC) Chronic low back pain DVT (deep venous thrombosis) (HCC) History of shingles 12/2019 Hypertension Multiple myeloma (HCC) Peripheral neuropathy Pulmonary embolism (HCC) Past Surgical History: Procedure Laterality Date BONE MARROW BIOPSY TOTAL KNEE ARTHROPLASTY Allergies: Ampicillin, Penicillin, Codeine, Indomethacin, and Morphine Medications: Current Outpatient Medications Medication Instructions aspirin 81 mg, oral, Daily busPIRone (BUSPAR) 20 mg, oral, 3 times daily cetirizine (ZYRTEC) 10 mg, oral, Daily cyanocobalamin 1,000 mcg, oral, Daily DULoxetine (CYMBALTA) 30 mg, oral, Daily ergocalciferol (VITAMIN D2) 50,000 Units, oral, Every 7 days gabapentin (NEURONTIN) 300 mg, oral, 3 times daily, Can take up to 2 caps as directed meclizine (ANTIVERT) 1-2 mg, oral, Every 6 hours PRN metoprolol succinate (TOPROL-XL) 25 mg, oral, Daily multivitamin per tablet 1 tablet, oral, Daily nitrofurantoin, macrocrystal-monohydrate, (MACROBID) 100 MG capsule 100 mg, oral, 2 times daily with breakfast and dinner, Start Date: 07/05/2024 for 7 days ondansetron (ZOFRAN-ODT) 4 mg, oral, Every 8 hours PRN oxyCODONE (ROXICODONE) 10 mg, oral, Every 4 hours PRN PARoxetine (PAXIL) 30 mg, oral, Daily potassium chloride (KLOR-CON) 20 MEQ tablet 20 mEq, oral, Daily promethazine (PHENERGAN) 12.5 mg, oral, Every 6 hours PRN rivaroxaban (XARELTO) 20 mg, oral, Daily with dinner simvastatin (ZOCOR) 10 mg, oral, Every Night Review of Symptoms: Review of Systems Unable to perform ROS: Acuity of condition Vitals Vitals: 07/14/24 0809 07/14/24 1157 07/14/24 1732 07/14/24 1733 BP: (!) 145/74 (!) 155/89 BP Location: Patient Position: Pulse: 91 115 Resp: 18 Temp: 98.2 ??F (36.8 ??C) 101.3 ??F (38.5 ??C) TempSrc: SpO2: 97% 100% 94% Weight: Height: Gain/Loss Since Last Wt (Kgs): 0 kg Physical Exam Cardiovascular: Rate and Rhythm: Normal rate and regular rhythm. Pulmonary: Effort: Pulmonary effort is normal. Breath sounds: Normal breath sounds. Abdominal: General: Abdomen is flat. Palpations: Abdomen is soft. Comments: No Hepatosplenomegaly Musculoskeletal: Cervical back: Neck supple. Comments: No peripheral edema Lymphadenopathy: Comments: No peripheral adenopathy. Skin: General: Skin is warm. Neurological: Mental Status: She is alert. Relevant Results: WBC Date Value Ref Range Status 07/14/2024 6.1 4.0 - 10.0 K/??L Final 07/13/2024 5.1 4.0 - 10.0 K/??L Final 07/12/2024 5.6 4.0 - 10.0 K/??L Final RBC Date Value Ref Range Status 07/14/2024 2.31 (L) 3.93 - 5.22 M/??L Final 07/13/2024 1.79 (L) 3.93 - 5.22 M/??L Final 07/12/2024 1.77 (L) 3.93 - 5.22 M/??L Final Hemoglobin Date Value Ref Range Status 07/14/2024 7.2 (L) 11.2 - 15.7 GM/DL Final 07/13/2024 7.6 (L) 11.2 - 15.7 GM/DL Final 07/13/2024 5.6 (LL) 11.2 - 15.7 GM/DL Final Hematocrit Date Value Ref Range Status 07/14/2024 22.3 (L) 34.1 - 44.9 % Final 07/13/2024 23.5 (L) 34.1 - 44.9 % Final 07/13/2024 18.3 (L) 34.1 - 44.9 % Final Platelets Date Value Ref Range Status 07/14/2024 64 (L) 140 - 375 K/CU MM Final 07/13/2024 76 (L) 140 - 375 K/CU MM Final 07/12/2024 92 (L) 140 - 375 K/CU MM Final Chemistry Component Value Date/Time NA 144 07/14/2024 0620 K 3.7 07/14/2024 0620 CL 116 (H) 07/14/2024 0620 CO2 17 (L) 07/14/2024 0620 BUN 13 07/14/2024 0620 CREATININE 0.80 07/14/2024 0620 Component Value Date/Time CALCIUM 8.8 07/14/2024 0620 ALKPHOS 54 07/13/2024 0608 AST 36 07/13/2024 0608 ALT 10 (L) 07/13/2024 0608 BILITOT 1.2 07/13/2024 0608 Radiology Results (last 7 days) Procedure Component Value Units Date/Time Ultrasound liver [[id number]] Resulted: 07/14/241643 Order Status: Sent Updated: 07/14/241645 CT brain without IV contrast [[id number]] Collected: 07/12/241739 Order Status: Completed Updated: 07/12/242034 Narrative: HEAD CT 07/12/2024 5:06 PM HISTORY: Acute [...] multiple myeloma. No pathologic fracture is evident. Impression: No acute intracranial process. Innumerable lytic lesions [...] interpreted, and dictated by Trino Nguyen M.D. CT chest abdomen pelvis with contrast [[id number]] Collected: 07/12/241739 Order Status: Completed Updated: 07/12/242034 Narrative: HEAD CT 07/12/2024 5:06 PM HISTORY: Acute [...] multiple myeloma. No pathologic fracture is evident. Impression: No acute intracranial process. Innumerable lytic lesions [...] interpreted, and dictated by Trino Nguyen M.D. XR chest AP portable [[id number]] Collected: 07/12/24 5768 Order Status: Completed Updated: 07/13/2441 Narrative: PORTABLE CHEST HISTORY: Mental status change for 2 days., Fall 2 days prior COMPARISON: 07/02/2024. FINDINGS: A single portable radiograph of the chest was performed. The heart is normal in size. There is a vascular congestion. There is decreased lung volume with atelectasis. There is no edema or infiltrate. The bony thorax appears intact. Impression: Underinflation with no acute process. 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 Errors in dictation may reflect use of voice recognition software and not all errors in compressor operator portable may have been detected prior to signing. Assessment Relapsed multiple myeloma. Unfortunately she progressed on several different lines of therapy, mostrecent regimen was Kyprolis with Pomalyst. She was in process of starting emplicitly with dexamethasone. Severe cytopenia. She received blood transfusion. Her hemoglobin today was 7.2 g/dL and platelets 64,000. Iron study was unremarkable in fact her ferritin was elevated. LDH was normal and same thing for direct Lena test. This is most likely consistent with bone marrow failure due progression of multiple myeloma. Plan I had no discussion with her family members including her sister and her son. Her overall prognosisis poor. I will try high-dose of dexamethasone, 40 mg IV daily for only a total of 4 days since multiple myeloma is usually sensitive to dexamethasone. I am hoping this will improve her performance status andmay be controlled the disease at least at the bone marrow. I also discussed with them considering comfortable measures only under hospice care. We will continue to follow-up. Signed: Electronically signed by Ken Urrutia MD 07/14/2024 6:05 PM EDT * Itz Freed, PT - 07/14/2024 4:21 PM EDT Images from the original note were not included. Inpatient Physical Therapy Attempt to Treat Patient Name: Asher Daniel Birthday: 1960 Date of Attempt: 07/14/2024 PT orders received and chart reviewed prior to PT checking on patient. Patient wailing/groining throughout attempts to see patient. Patient would not respond or adhere to questions/prompts by either PT or OT. Patient would only articulate no and don't hurt me. Patient unable to actively participate in PT evaluative process at this time. PT will check back as time and patient's status allow. Time in room: [id number] Electronically signed by Itz Freed PT - 07/14/2024 - 4:21 PM EDT * VAL Castro/Jessa - 07/14/2024 10:41 AM EDT Images from the original note were not included. Inpatient Occupational Therapy Attempt to Treat Patient Name: Asher Daniel Birthday: 1960 Date of Attempt: 07/14/2024 OT orders for eval/tx received. Upon therapists' arrival, pt was found supine in bed. Pt was moaning uncontrollably. Pt demonstrated decreased attention to task, was unable to state name and unable to follow one-step commands this date. Pt unable to participate with OT eval at this time. Therapist will follow up as time allows. Electronically signed by STACEY Castro - 07/14/2024 - 1:40 PM EDT * Chandra Jose MD - 07/14/2024 8:01 AM EDT PCP: MARILEE Muñoz Date of Admission: 07/12/2024 Date of Discharge Reason for Hospitalization Asher Daniel is a 64 y.o. female with PMHx of multiple myeloma which she is getting chemotherapy for biweekly and missed her last dose was brought in by her son with increasing confusion and altered mental status. Patient is intermittently confused. She has had multiple falls at home andhas an abrasion to right forehead. Pt is confused and able to answer some questions but most answers don't make sense. She has some lower abd discomfort. Consultations obtained -Physical and occupational therapy services -Case management -Oncology hematology Procedures performed -None so far Hospital course/follow-up 07/13 please note this is my first visit with this patient, she is somewhat somnolent at the time of my interaction no family in the room, marked anemia noted platelets also on the low side imaging studies reviewed patient appears quite sick at the moment H&P extensively reviewed as well 07/14 I have discussed extensively yesterday with the son over the phone and updated him about planof care, patient is quite sick, she is rather in critical condition, this morning she is still somnolent although easily arousable, low- grade fever overnight noted also received some Dilaudid, this morning I called and discussed with the nursing staff extensively as well, ammonia level slightly trending down after I initiated lactulose, prognosis not great, did receive blood transfusions, oncology hematology already on board here, due to her somnolent I would like to rule out hypercarbia therefore I will check arterial blood gas this was also communicated to the nursing staff, if patient deter iorates low threshold to transfer her to ICU critical illness unfortunately continues prognosis notgreat 07/15 07/16 07/17 Diagnosis: -Sepsis in an immunocompromise host, present upon admission, source appears to be genitourinary -Suspected UTI/acute cystitis -Acute metabolic encephalopathy -Markedly elevated ammonia level -Marked symptomatic anemia with thrombocytopenia in the setting of known multiple myeloma -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 Holding Xarelto in the setting of marked anemia, oncology hematology consultation,in regards to elevated ammonia level adding lactulose and will monitor ammonia levels closely at this point, plan discussed with the nursing staff this morning 07/14 I will continue lactulose, continue to monitor ammonia levels on daily basis, I would like tocheck ABG to rule out hypercarbia as etiology of somnolence and mentation related issues, increase activity with physical therapy as much as possible continue lactulose at this point, continue to hold Xarelto up until hemoglobin improves further, follow oncology hematology recommendations, prognosis not great, discussed with the nursing extensively yesterday extensively discussed with the son as well updated him about plan of care and patient's poor prognosis, I have spent 32 minutes of critical care time taking care of this patient today 07/15 07/16 07/17 07/18 07/19 DCP: Home vs inpatient rehab pending progress and medical stability Voice compressor operator portable technology ([employer]) is used for dictation of this note and sound-alike words might be erroneously placed despite reviewing the note for accuracy. Errors in dictation mayreflect use of voice recognition software and not all errors in compressor operator portable may have been detected prior to signing Hospital Medications Scheduled Meds: acetaminophen 650 mg rectal Once albuterol 2.5 mg nebulization Q6H 2.5 mg at 07/14/24 0424 atorvastatin 10 mg oral Daily 10 mg at 07/13/24 08 budesonide 0.5 mg nebulization 2 times daily 0.5 mg at 07/13/242112 busPIRone 15 mg oral TID 15 mg at 07/13/24 151 cefTRIAXone 1 g intravenous Q24H IVPB Stopped at 07/13/241914 cyanocobalamin 1,000 mcg oral Daily 1,000 mcg at 07/13/24 08 DULoxetine 30 mg oral Daily 30 mg at 07/13/24 08 ergocalciferol 50,000 Units oral Weekly 50,000 Units at 07/12/24 2254 gabapentin 100 mg oral TID 100 mg at 07/13/24 1509 lactulose 20 g oral TID 20 g at 07/13/24 1509 pomalidomide 1 capsule oral Daily potassium chloride 20 mEq oral Daily 20 mEq at 07/13/24 0856 Continuous Infusions: sodium chloride 0.9 % (NS) 20 mL/hr (07/13/24 1051) PRN Meds:. acetaminophen docusate sodium hydrALAZINE LORazepam meclizine melatonin ondansetron Or ondansetron PF oxyCODONE sodium chloride Physical Exam Vitals: 07/14/24 0755 BP: Pulse: Resp: Temp: SpO2: 95% General: NAD HEENT: Generally negative Neck: No JVD noted CVS: S1, S2, no S3 or S4 Lungs: Equal air entry symmetrical chest expansion GI: Soft, audible bowel sounds Neurological: Nonfocal Musculoskeletal: Generally unremarkable Skin: Warm without any noted rashes Labs & Imaging Recent Results (from the past 24 hour(s)) Hemoglobin and hematocrit Collection Time: 07/13/24 7:43 PM Result Value Ref Range Hemoglobin 7.6 (L) 11.2 - 15.7 GM/DL Hematocrit 23.5 (L) 34.1 - 44.9 % CBC - Hemogram ([facility]) Collection Time: 07/14/24 6:19 AM Result Value Ref Range WBC 6.1 4.0 - 10.0 K/??L RBC 2.31 (L) 3.93 - 5.22 M/??L Hemoglobin 7.2 (L) 11.2 - 15.7 GM/DL Hematocrit 22.3 (L) 34.1 - 44.9 % MCV 97 (H) 79 - 95 fL MCH 31.2 25.6 - 32.2 pg MCHC 32.3 32.2 - 35.5 GM/DL RDW 19.4 (H) 11.7 - 14.4 % Platelets 64 (L) 140 - 375 K/CU MM MPV 11.9 9.4 - 12.3 fL Ammonia Collection Time: 07/14/24 6:19 AM Result Value Ref Range Ammonia 71 (H) 11 - 32 ??mol/L Basic Metabolic Panel Collection Time: 07/14/24 6:20 AM Result Value Ref Range Sodium 144 136 - 146 meq/L Potassium 3.7 3.5 - 5.1 meq/L Chloride 116 (H) 102 - 112 meq/L CO2 17 (L) 21 - 32 meq/L Anion Gap 15 9 - 20 BUN 13 7 - 22 mg/dL Creatinine 0.80 0.55 - 1.02 mg/dL BUN/Creatinine 16 8 - 20 Glucose 156 (H) 74 - 106 mg/dL Calcium 8.8 8.4 - 10.1 mg/dL Osmolality Calc 290.1 eGFR (mL/min/1.73m2) >60 >=60 mL/min/1.73m2 XR chest AP portable Result Date: 07/13/2024 PORTABLE CHEST HISTORY: Mental status change for 2 days., Fall 2 days prior COMPARISON: 07/02/2024.FINDINGS: A single portable radiograph of the chest was performed. The heart is normal in size. There is a vascular congestion. There is decreased lung volume with atelectasis. There is no edema or infiltrate. The bony thorax appears intact. Underinflation with no acute process. 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 Errors in dictation may reflect use of voice recognition software and not all errors in transcripti on may have been detected prior to signing. CT brain without IV contrast Result Date: 07/12/[address] 07/12/2024 5:06 PM HISTORY: [...] are unremarkable. Skull is intact. No skull fracturesare evident. Innumerable lytic lesions scattered throughout the calvarium consistent with patient'sknown diagnosis of multiple myeloma. No pathologic fracture is evident. No acute intracranial process. Innumerable lytic lesions [...] study was performed with techniques to keep radiationdoses as low as reasonably achievable, (ALARA). Individualized [...] granulomatous disease exposure. ABDOMEN: The liver is homogenouswith no focal abnormality. The spleen is unremarkable. Stable left adrenal nodule. The pancreas is unremarkable. The kidneys are unremarkable, without evidence of mass or hydronephrosis. The aorta isnormal in caliber. There is no free fluid or adenopathy. Postsurgical changes to the stomach are noted. PELVIS: The GI tract demonstrates no obstruction. The appendix is normal. The urinary bladder is unremarkable. There is no free fluid, adenopathy, or inflammatory process. Genital organs are unremarkable. No findings to suggest ovarian torsion. BONES: No acute fractures. IMPRESSION: 1. No acuteabnormality identified in the chest/abdomen/pelvis. 2. Stable left adrenal nodule. 3. No definite evidence to suggest cholelithiasis on today's study. 4. No significant interval change in innumerablelytic lesions throughout the bones consistent with patient's known history of multiple myeloma. Images reviewed, interpreted, and dictated by Trino Nguyen M.D. CT chest abdomen pelvis with contrast Result Date: 07/12/[address] 07/12/2024 5:06 PM HISTORY: [...] are unremarkable. Skull is intact. No skull fracturesare evident. Innumerable lytic lesions scattered throughout the calvarium consistent with patient'sknown diagnosis of multiple myeloma. No pathologic fracture is evident. No acute intracranial process. Innumerable lytic lesions [...] study was performed with techniques to keep radiationdoses as low as reasonably achievable, (ALARA). Individualized [...] granulomatous disease exposure. ABDOMEN: The liver is homogenouswith no focal abnormality. The spleen is unremarkable. Stable left adrenal nodule. The pancreas is unremarkable. The kidneys are unremarkable, without evidence of mass or hydronephrosis. The aorta isnormal in caliber. There is no free fluid or adenopathy. Postsurgical changes to the stomach are noted. PELVIS: The GI tract demonstrates no obstruction. The appendix is normal. The urinary bladder is unremarkable. There is no free fluid, adenopathy, or inflammatory process. Genital organs are unremarkable. No findings to suggest ovarian torsion. BONES: No acute fractures. IMPRESSION: 1. No acuteabnormality identified in the chest/abdomen/pelvis. 2. Stable left adrenal nodule. 3. No definite evidence to suggest cholelithiasis on today's study. 4. No significant interval change in innumerablelytic lesions throughout the bones consistent with patient's known history of multiple myeloma. Images reviewed, interpreted, and dictated by Trino Nguyen M.D. CT ABDOMEN/PELVIS WITH IV CONTRAST Result Date: 07/04/2024 CT SCAN OF THE ABDOMEN AND PELVIS WITH CONTRAST 07/04/2024 4:10 PM HISTORY: Acute generalized weakness. COMPARISON: February 04, 2022. PROCEDURE: The patient was injected with IV contrast. Axial images were obtained from the lung bases to the pubic symphysis by computed tomography. This study was performed with techniques to keep radiation doses as low as reasonably achievable, (ALARA). Individualizeddose reduction techniques using automated exposure control or adjustment of mA and/or kV according to the patient size were employed. FINDINGS: ABDOMEN: There is mild bibasilar atelectasis. The heartis normal in size. The liver is homogenous with no focal abnormality. There may be stones within the gallbladder. The spleen is unremarkable. There is a nonspecific 10 mm left adrenal nodule, new when compared to prior. The pancreas is unremarkable. The kidneys are unremarkable, without evidence ofmass or hydronephrosis. The aorta is normal in [...] disc disease is seen throughout the spine. Possible cholelithiasis. Otherwise, no acute process. Nonspecific left adrenal nodule. Numerous lytic lesions throughout the bones consistent with patient's known history of multiple myeloma. Images reviewed, interpreted, and dictated by Dr. Jaleesa Crabtree. Transcribed by Jaswant Lopez PA-C XR chest 1 view portable / bedside Result Date: 07/04/2024 PORTABLE CHEST. 07/04/2024 12:31 PM HISTORY: Weakness, multiple myeloma, nausea and vomiting. COMPARISON: January 2018. FINDINGS: The cardiac silhouette is normal in size. The mediastinum is unremarkable. The lungs are clear. There is no pneumothorax. No acute cardiopulmonary process. Images reviewed, interpreted, and dictated by Dr. Mert Knight. Transcribed by Silvia Pablo PA-C. Electronically signed by: Chandra Jose MD, 07/14/2024 at 8:13 AM EDT * Chandra Jose MD - 07/13/2024 8:13 AM EDT PCP: MARILEE Muñoz Date of Admission: 07/12/2024 Date of Discharge Reason for Hospitalization Asher Daniel is a 64 y.o. female with PMHx of multiple myeloma which she is getting chemotherapy for biweekly and missed her last dose was brought in by her son with increasing confusion and altered mental status. Patient is intermittently confused. She has had multiple falls at home andhas an abrasion to right forehead. Pt is confused and able to answer some questions but most answers don't make sense. She has some lower abd discomfort. Consultations obtained -Physical and occupational therapy services -Case management -Oncology hematology Procedures performed -None so far Hospital course/follow-up 07/13 please note this is my first visit with this patient, she is somewhat somnolent at the time of my interaction no family in the room, marked anemia noted platelets also on the low side imaging studies reviewed patient appears quite sick at the moment H&P extensively reviewed as well 07/14 07/15 07/16 07/17 Diagnosis: -Sepsis in an immunocompromise host, present upon admission, source appears to be genitourinary -Suspected UTI/acute cystitis -Acute metabolic encephalopathy -Markedly elevated ammonia level -Marked symptomatic anemia with thrombocytopenia in the setting of known multiple myeloma -Documented history of DVT/PE -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 Holding Xarelto in the setting of marked anemia, oncology hematology consultation,in regards to elevated ammonia level adding lactulose and will monitor ammonia levels closely at this point, plan discussed with the nursing staff this morning 07/14 07/15 07/16 DCP: Home vs inpatient rehab pending progress and medical stability Voice compressor operator portable technology ([employer]) is used for dictation of this note and sound-alike words might be erroneously placed despite reviewing the note for accuracy. Errors in dictation mayreflect use of voice recognition software and not all errors in compressor operator portable may have been detected prior to signing Hospital Medications Scheduled Meds: albuterol 2.5 mg nebulization Q6H 2.5 mg at 07/13/24 0408 atorvastatin 10 mg oral Daily 10 mg at 07/12/242219 budesonide 0.5 mg nebulization 2 times daily 0.5 mg at 07/12/242234 busPIRone 15 mg oral TID 15 mg at 07/12/242218 cefTRIAXone 1 g intravenous Q24H cyanocobalamin 1,000 mcg oral Daily 1,000 mcg at 07/12/242219 DULoxetine 30 mg oral Daily 30 mg at 07/12/242217 ergocalciferol 50,000 Units oral Weekly 50,000 Units at 07/12/24 225 gabapentin 300 mg oral TID 300 mg at 07/12/242218 pomalidomide 1 capsule oral Daily potassium chloride 20 mEq oral Daily 20 mEq at 07/12/242218 Continuous Infusions: sodium chloride 0.9 % (NS) 100 mL/hr (07/13/24 0703) sodium chloride 0.9 % (NS) PRN Meds:. acetaminophen docusate sodium hydrALAZINE LORazepam meclizine melatonin ondansetron Or ondansetron PF oxyCODONE sodium chloride Physical Exam Vitals: 07/13/24 0445 BP: 119/71 Pulse: 86 Resp: 18 Temp: 97.9 ??F (36.6 ??C) SpO2: 96% General: NAD HEENT: Generally negative Neck: No JVD noted CVS: S1, S2, no S3 or S4 Lungs: Equal air entry symmetrical chest expansion GI: Soft, audible bowel sounds Neurological: Nonfocal Musculoskeletal: Generally unremarkable Skin: Warm without any noted rashes Labs & Imaging Recent Results (from the past 24 hour(s)) Glucose, Nova Meter Collection Time: 07/12/24 3:59 PM Result Value Ref Range POC-GLUCOSE 99 70 - 110 mg/dL [employer] [id number] ECG 12 lead Collection Time: 07/12/24 4:05 PM Result Value Ref Range VENTRICULAR RATE EKG/MIN 97 BPM ATRIAL RATE (MCT) 97 BPM RI Interval 158 ms QRS-INTERVAL (MSEC) 83 ms QT Interval 367 ms QTC Interval 466 ms P [place] 51 degrees R AXIS (MCT) 56 degrees T Wave [place] 27 degrees [place] Diagnosis Normal sinus rhythm Normal ECG No previous ECGs available CBC with automated diff Collection Time: 07/12/24 4:46 PM Result Value Ref Range WBC 5.6 4.0 - 10.0 K/??L RBC 1.77 (L) 3.93 - 5.22 M/??L Hemoglobin 5.7 (LL) 11.2 - 15.7 GM/DL Hematocrit 18.8 (L) 34.1 - 44.9 % MCV 106 (H) 79 - 95 fL MCH 32.2 25.6 - 32.2 pg MCHC 30.3 (L) 32.2 - 35.5 GM/DL RDW 14.5 (H) 11.7 - 14.4 % Platelets 92 (L) 140 - 375 K/CU MM MPV 11.6 9.4 - 12.3 fL NRBC Absolute 0.17 (H) 0 - 0.012 K/ul Comprehensive metabolic panel Collection Time: 07/12/24 4:46 PM Result Value Ref Range Sodium 140 136 - 146 meq/L Potassium 3.8 3.5 - 5.1 meq/L Chloride 109 102 - 112 meq/L CO2 19 (L) 21 - 32 meq/L Calcium 9.2 8.4 - 10.1 mg/dL Glucose 110 (H) 74 - 106 mg/dL BUN 12 7 - 22 mg/dL Creatinine 1.05 (H) 0.55 - 1.02 mg/dL BUN/Creatinine 11 8 - 20 Albumin 1.4 (L) 3.4 - 5.0 g/dL Alkaline Phosphatase 64 27 - 136 U/L ALT 12 (L) 13 - 56 U/L AST 52 (H) 5 - 37 U/L Total Bilirubin 1.0 0.2 - 1.2 mg/dL Protein, Total 9.9 (H) 6.4 - 8.2 gm/dL Anion Gap 16 9 - 20 A/G Ratio 0.2 (L) 1.1 - 2.5 Globulin 8.5 (H) 1.5 - 4.5 g/dL Osmolality Calc 279.8 eGFR (mL/min/1.73m2) 59 (L) >=60 mL/min/1.73m2 Lactic Acid with reflex (SJ) Collection Time: 07/12/24 4:46 PM Result Value Ref Range Lactic Acid Level (mmol/L) 1.7 0.4 - 2.0 mmol/L Lipase Collection Time: 07/12/24 4:46 PM Result Value Ref Range Lipase 20 13 - 75 U/L Manual Differential Collection Time: 07/12/24 4:46 PM Result Value Ref Range Total Counted 100 % Neutros (manual) 64 50 - 65 % % Lymphs (manual) 21 (L) 24 - 44 % % Monos (manual) 7 (H) 4 - 5 % % Metamyelo (manual) 3 (H) 0 - 1 % % Myelo (manual) 5 % RBC Morphology abnormal (A) Normal Platelet Estimate Decreased (A) Adequate Anisocytosis 1+ Macrocytes 1+ Ovalocytes 1+ Rouleaux 1+ Raw nRBC Count 1 (H) 0 - 0 ANC# 3.58 K/??L Procalcitonin Collection Time: 07/12/24 4:46 PM Result Value Ref Range Procalcitonin 0.39 <=0.50 ng/mL Vitamin B12 Collection Time: 07/12/24 4:46 PM Result Value Ref Range Vitamin B12 2,764 (H) 193 - 986 pg/mL Magnesium Collection Time: 07/12/24 4:46 PM Result Value Ref Range Magnesium 1.9 1.5 - 2.4 mg/dL Phosphorus Collection Time: 07/12/24 4:46 PM Result Value Ref Range Phosphorus 1.2 (L) 2.5 - 4.9 mg/dL SARS-COV2/RT-PCR Collection Time: 07/12/24 4:47 PM Specimen: Nasopharyngeal Swab Result Value Ref Range SARS-COV2/RT-PCR Negative Negative Prepare RBC: 2 Units Collection Time: 07/12/24 5:01 PM Result Value Ref Range Issue Date/Time [id number] Product Identification Red Blood Cells Product Code [id number] Status Information Transfused Unit Number [id number] Blood Type 6200 Cross Match Results Compatible Hemoglobin and hematocrit Collection Time: 07/12/24 5:22 PM Result Value Ref Range Hemoglobin 5.1 (LL) 11.2 - 15.7 GM/DL Hematocrit 16.7 (LL) 34.1 - 44.9 % Antibody Screen Collection Time: 07/12/24 5:22 PM Result Value Ref Range Antibody Screen Negative ABO/Rh Collection Time: 07/12/24 5:22 PM Result Value Ref Range ABO/Rh A POSITIVE Urinalysis, Reflex Microscopic and Culture If Indicated - Cath Collection Time: 07/12/24 7:47 PM Result Value Ref Range Color, UA Yellow Clarity, UA Turbid (A) Clear Specific [place], UA 1.042 (H) 1.005 - 1.030 pH, UA 5.5 (L) 6.0 - 8.0 Leukocytes, UA Negative Negative Nitrite, UA Negative Negative Protein, UA 1+ (A) Negative Glucose, UA Normal Normal Ketones, UA Trace (A) Negative Bilirubin, UA Negative Negative Blood, UA 1+ (A) Negative Urobilinogen, UA 3 mg/dL (A) Normal Specimen Source Urine, [place] Urinalysis Microscopic Only Collection Time: 07/12/24 7:47 PM Result Value Ref Range WBC, UA 3-5 (A) None Seen /HPF RBC, UA 0-2 (A) None Seen /HPF Bacteria, UA 1+ (A) None Seen, Trace Mucus 1+ (A) None Seen SQUAMOUS EPITHELIAL 0-2 (A) None Seen /HPF Urine Drug Screen Collection Time: 07/13/24 5:41 AM Result Value Ref Range Amphetamine Urine Negative Negative Barbiturate Screen Negative Negative Benzodiazepine Screen Negative Negative Cocaine (Metab.) Screen Negative Negative Opiate Screen Positive (A) Negative Phencyclidine Screen Negative Negative Tricyclic Screen Negative Negative Tetrahydrocannabinol Positive (A) Negative Creatinine, Ur 219.0 mg/dL pH, UA 5.0 (L) 6.0 - 8.0 Ammonia Collection Time: 07/13/24 6:02 AM Result Value Ref Range Ammonia 101 (H) 11 - 32 ??mol/L Folate, Serum Collection Time: 07/13/24 6:08 AM Result Value Ref Range Folate 5.10 3.10 - 17.50 ng/mL CBC - Hemogram ([facility]) Collection Time: 07/13/24 6:08 AM Result Value Ref Range WBC 5.1 4.0 - 10.0 K/??L RBC 1.79 (L) 3.93 - 5.22 M/??L Hemoglobin 5.6 (LL) 11.2 - 15.7 GM/DL Hematocrit 18.3 (L) 34.1 - 44.9 % MCV 102 (H) 79 - 95 fL MCH 31.3 25.6 - 32.2 pg MCHC 30.6 (L) 32.2 - 35.5 GM/DL RDW 17.2 (H) 11.7 - 14.4 % Platelets 76 (L) 140 - 375 K/CU MM MPV 11.5 9.4 - 12.3 fL Comprehensive Metabolic Panel Collection Time: 07/13/24 6:08 AM Result Value Ref Range Sodium 142 136 - 146 meq/L Potassium 3.9 3.5 - 5.1 meq/L Chloride 113 (H) 102 - 112 meq/L CO2 19 (L) 21 - 32 meq/L Calcium 8.3 (L) 8.4 - 10.1 mg/dL Glucose 124 (H) 74 - 106 mg/dL BUN 13 7 - 22 mg/dL Creatinine 0.88 0.55 - 1.02 mg/dL BUN/Creatinine 15 8 - 20 Albumin 1.2 (L) 3.4 - 5.0 g/dL Alkaline Phosphatase 54 27 - 136 U/L ALT 10 (L) 13 - 56 U/L AST 36 5 - 37 U/L Total Bilirubin 1.2 0.2 - 1.2 mg/dL Protein, Total 8.6 (H) 6.4 - 8.2 gm/dL Anion Gap 14 9 - 20 A/G Ratio 0.2 (L) 1.1 - 2.5 Globulin 7.4 (H) 1.5 - 4.5 g/dL Osmolality Calc 284.7 eGFR (mL/min/1.73m2) >60 >=60 mL/min/1.73m2 CALCIUM Ionized Collection Time: 07/13/24 6:37 AM Result Value Ref Range Calcium Ionized 1.07 (L) 1.12 - 1.32 mmol/L Prepare RBC: 2 Units Collection Time: 07/13/24 6:53 AM Result Value Ref Range Issue Date/Time [id number] Product Identification Red Blood Cells Product Code [id number] Status Information Issued Unit Number [id number] Blood Type 6200 Cross Match Results Compatible XR chest AP portable Result Date: 07/13/2024 PORTABLE CHEST HISTORY: Mental status change for 2 days., Fall 2 days prior COMPARISON: 07/02/2024.FINDINGS: A single portable radiograph of the chest was performed. The heart is normal in size. There is a vascular congestion. There is decreased lung volume with atelectasis. There is no edema or infiltrate. The bony thorax appears intact. Underinflation with no acute process. 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 Errors in dictation may reflect use of voice recognition software and not all errors in transcripti on may have been detected prior to signing. CT brain without IV contrast Result Date: 07/12/[address] 07/12/2024 5:06 PM HISTORY: [...] are unremarkable. Skull is intact. No skull fracturesare evident. Innumerable lytic lesions scattered throughout the calvarium consistent with patient'sknown diagnosis of multiple myeloma. No pathologic fracture is evident. No acute intracranial process. Innumerable lytic lesions [...] study was performed with techniques to keep radiationdoses as low as reasonably achievable, (ALARA). Individualized [...] granulomatous disease exposure. ABDOMEN: The liver is homogenouswith no focal abnormality. The spleen is unremarkable. Stable left adrenal nodule. The pancreas is unremarkable. The kidneys are unremarkable, without evidence of mass or hydronephrosis. The aorta isnormal in caliber. There is no free fluid or adenopathy. Postsurgical changes to the stomach are noted. PELVIS: The GI tract demonstrates no obstruction. The appendix is normal. The urinary bladder is unremarkable. There is no free fluid, adenopathy, or inflammatory process. Genital organs are unremarkable. No findings to suggest ovarian torsion. BONES: No acute fractures. IMPRESSION: 1. No acuteabnormality identified in the chest/abdomen/pelvis. 2. Stable left adrenal nodule. 3. No definite evidence to suggest cholelithiasis on today's study. 4. No significant interval change in innumerablelytic lesions throughout the bones consistent with patient's known history of multiple myeloma. Images reviewed, interpreted, and dictated by Trino Nguyen M.D. CT chest abdomen pelvis with contrast Result Date: 07/12/[address] 07/12/2024 5:06 PM HISTORY: [...] are unremarkable. Skull is intact. No skull fracturesare evident. Innumerable lytic lesions scattered throughout the calvarium consistent with patient'sknown diagnosis of multiple myeloma. No pathologic fracture is evident. No acute intracranial process. Innumerable lytic lesions [...] study was performed with techniques to keep radiationdoses as low as reasonably achievable, (ALARA). Individualized [...] granulomatous disease exposure. ABDOMEN: The liver is homogenouswith no focal abnormality. The spleen is unremarkable. Stable left adrenal nodule. The pancreas is unremarkable. The kidneys are unremarkable, without evidence of mass or hydronephrosis. The aorta isnormal in caliber. There is no free fluid or adenopathy. Postsurgical changes to the stomach are noted. PELVIS: The GI tract demonstrates no obstruction. The appendix is normal. The urinary bladder is unremarkable. There is no free fluid, adenopathy, or inflammatory process. Genital organs are unremarkable. No findings to suggest ovarian torsion. BONES: No acute fractures. IMPRESSION: 1. No acuteabnormality identified in the chest/abdomen/pelvis. 2. Stable left adrenal nodule. 3. No definite evidence to suggest cholelithiasis on today's study. 4. No significant interval change in innumerablelytic lesions throughout the bones consistent with patient's known history of multiple myeloma. Images reviewed, interpreted, and dictated by Trino Nguyen M.D. CT ABDOMEN/PELVIS WITH IV CONTRAST Result Date: 07/04/2024 CT SCAN OF THE ABDOMEN AND PELVIS WITH CONTRAST 07/04/2024 4:10 PM HISTORY: Acute generalized weakness. COMPARISON: February 04, 2022. PROCEDURE: The patient was injected with IV contrast. Axial images were obtained from the lung bases to the pubic symphysis by computed tomography. This study was performed with techniques to keep radiation doses as low as reasonably achievable, (ALARA). Individualizeddose reduction techniques using automated exposure control or adjustment of mA and/or kV according to the patient size were employed. FINDINGS: ABDOMEN: There is mild bibasilar atelectasis. The heartis normal in size. The liver is homogenous with no focal abnormality. There may be stones within the gallbladder. The spleen is unremarkable. There is a nonspecific 10 mm left adrenal nodule, new when compared to prior. The pancreas is unremarkable. The kidneys are unremarkable, without evidence ofmass or hydronephrosis. The aorta is normal in [...] disc disease is seen throughout the spine. Possible cholelithiasis. Otherwise, no acute process. Nonspecific left adrenal nodule. Numerous lytic lesions throughout the bones consistent with patient's known history of multiple myeloma. Images reviewed, interpreted, and dictated by Dr. Jaleesa Crabtree. Transcribed by Jaswant Lopez PA-C XR chest 1 view portable / bedside Result Date: 07/04/2024 PORTABLE CHEST. 07/04/2024 12:31 PM HISTORY: Weakness, multiple myeloma, nausea and vomiting. COMPARISON: January 2018. FINDINGS: The cardiac silhouette is normal in size. The mediastinum is unremarkable. The lungs are clear. There is no pneumothorax. No acute cardiopulmonary process. Images reviewed, interpreted, and dictated by Dr. Mert Knight. Transcribed by Silvia Pablo PA-C. Electronically signed by: Chandra Jose MD, 07/13/2024 at 8:13 AM EDT documented in this encounter H&P Notes * Rupert Betancourt MD - 07/12/2024 7:44 PM EDT HPI History Of Present Illness Asher Daniel is a 64 y.o. female with PMHx of multiple myeloma which she is getting chemotherapy for biweekly and missed her last dose was brought in by her son with increasing confusion and altered mental status. Patient is intermittently confused. She has had multiple falls at home andhas an abrasion to right forehead. Pt is confused and able to answer some questions but most answers don't make sense. She has some lower abd discomfort. ER workup: WBC 5.6, LA wnl hemoglobin was 5.7. ER ordered 2 units of blood. CMP unremarkable with the exception of mildly elevated LFTs. Lipase wnl CT of the head, chest, abdomen and pelvis do not show anything acute. No significant interval change in innumerable lytic lesions throughout the bones consistent with patient's known history of multiple myeloma. ER has not been able to get a urine yet because she is refusing to be cathed, but her son said thatsherrell recently was diagnosed with urinary tract infection has 1 dose of oral antibiotics left. She is tachycardic and febrile. ER gave her Rocephin. Blood Cx collected COVID test negative. CXR official report pending. EKG NSR, no acute ST changes. Pt will be admitted for sepsis, altered mental status and symptomatic anemia. Past Medical History She has a past medical history of Asthma, Autologous bone marrow transplantation status ([facility]), Chronic low back pain, DVT (deep venous thrombosis) ([facility]), History of shingles (12/2019), Hypertension, Multiple myeloma ([facility]), Peripheral neuropathy, and Pulmonary embolism ([facility]). Surgical History She has a past surgical history that includes Bone marrow biopsy and Total knee arthroplasty. Social History She reports that she has never smoked. She has never used smokeless tobacco. She reports that she does not drink alcohol and does not use drugs. Family History Her family history includes Dementia in her mother; Heart attack in her father. Allergies Ampicillin, Penicillin, Codeine, Indomethacin, and Morphine Medications Current Outpatient Medications Medication Instructions acyclovir (ZOVIRAX) 5 % ointment topical, Every 3 hours Advair HFA 115-21 mcg/actuation inhaler 2 puffs, 2 times daily ascorbic acid (VITAMIN C) 500 mg, oral benzonatate (TESSALON) 100 mg, oral, 3 times daily PRN BIOTIN ORAL 6,000 mcg, oral busPIRone (BUSPAR) 15 mg, oral, 3 times daily cetirizine (ZYRTEC) 10 mg, oral clonazePAM (KLONOPIN) 0.5 mg, oral, As needed cyanocobalamin (VITAMIN B-12) 1000 MCG tablet TAKE 1 TABLET BY MOUTH EVERY DAY ON AN EMPTY STOMACH FOR LOW VITAMIN B-12 cyclobenzaprine (FLEXERIL) 5 mg, oral, 2 times daily PRN DULoxetine (CYMBALTA) 30 mg, oral, Daily ergocalciferol (ERGOCALCIFEROL) 1,250 mcg (50,000 unit) capsule 1 capsule, oral, Weekly fentaNYL (DURAGESIC) 25 mcg/hr patch 1 patch, transdermal, Every 72 hours fluticasone propionate (FLONASE) 50 mcg/actuation nasal spray 2 sprays, Daily gabapentin (NEURONTIN) 300 mg, oral, 3 times daily meclizine (ANTIVERT) 25 mg, oral, 4 times daily PRN metoprolol succinate (TOPROL-XL) 25 mg, oral, Daily ondansetron (ZOFRAN-ODT) 4 mg, oral, Every 8 hours PRN OneTouch Verio test strips Strp 2 times daily oxyCODONE (ROXICODONE) 10 mg, oral, Every 4 hours PRN PARoxetine (PAXIL) 30 mg, oral, Daily Pomalyst 1 mg, oral, Daily potassium chloride SA (K-DUR,KLOR-CON-M) 20 MEQ tablet 20 mEq, oral, Daily ProAir HFA 90 mcg/actuation inhaler 2 puffs promethazine (PHENERGAN) 12.5 mg, oral, Every 6 hours PRN simvastatin (ZOCOR) 10 mg, oral, Every Night sulfamethoxazole-trimethoprim (BACTRIM DS) 800-160 mg per tablet 160 mg of trimethoprim, oral, 2 times daily, To begin on 04/13/2024 Tab-A-Avery 400 mcg Tab 1 tablet, oral, Daily UNKNOWN 1 tablet, oral, Daily, [place] - for memory loss Xarelto 20 mg tablet SMARTSI Tablet(s) By Mouth Every Evening Review of Systems Review of Systems As per HPI, all other systems reviewed and negative. Last Recorded Vitals Blood pressure 110/57, pulse 84, temperature 98.4 ??F (36.9 ??C), resp. rate 16, height 1.778 m (5'10 ), weight 98 kg (216 lb), SpO2 98 %. Physical Exam Constitutional: Appearance: She is ill-appearing. Alert only to person. HENT: Head: Comments: There is a small abrasion on the upper right forehead. Eyes: Pupils: Pupils are equal, round, and reactive to light. EOMI Cardiovascular: Rate and Rhythm: Regular rhythm. Tachycardia present. Pulses: Normal pulses. Heart sounds: No m/r/g Pulmonary: Effort: Pulmonary effort is normal. Breath sounds: Normal breath sounds. CTAB. Abdominal: Palpations: Abdomen is soft. Tenderness: There is lower abdominal tenderness. No rebound, +BS : FC anchored, an colored urine Musculoskeletal: Cervical back: Neck supple. No rigidity or tenderness. No C/C/E Skin: General: Skin is warm and dry. No jaundice or rash. Capillary Refill: Capillary refill takes less than 2 seconds. Neurological: Mental Status: She is alert. She is disoriented. No focal deficits, CN 2-12 intact. Psych: confused, no AVH, flat affect. Diagnostic Results Admission on 07/12/2024 Component Date Value Ref Range Status WBC 07/12/2024 5.6 4.0 - 10.0 K/??L Final RBC 07/12/2024 1.77 (L) 3.93 - 5.22 M/??L Final Hemoglobin 07/12/2024 5.7 (LL) 11.2 - 15.7 GM/DL Final Hematocrit 07/12/2024 18.8 (L) 34.1 - 44.9 % Final MCV 07/12/2024 106 (H) 79 - 95 fL Final MCH 07/12/2024 32.2 25.6 - 32.2 pg Final MCHC 07/12/2024 30.3 (L) 32.2 - 35.5 GM/DL Final RDW 07/12/2024 14.5 (H) 11.7 - 14.4 % Final Platelets 07/12/2024 92 (L) 140 - 375 K/CU MM Final MPV 07/12/2024 11.6 9.4 - 12.3 fL Final NRBC Absolute 07/12/2024 0.17 (H) 0 - 0.012 K/ul Final Sodium 07/12/2024 140 136 - 146 meq/L Final Potassium 07/12/2024 3.8 3.5 - 5.1 meq/L Final Chloride 07/12/2024 109 102 - 112 meq/L Final CO2 07/12/2024 19 (L) 21 - 32 meq/L Final Calcium 07/12/2024 9.2 8.4 - 10.1 mg/dL Final Glucose 07/12/2024 110 (H) 74 - 106 mg/dL Final BUN 07/12/2024 12 7 - 22 mg/dL Final Creatinine 07/12/2024 1.05 (H) 0.55 - 1.02 mg/dL Final BUN/Creatinine 07/12/2024 11 8 - 20 Final Albumin 07/12/2024 1.4 (L) 3.4 - 5.0 g/dL Final Alkaline Phosphatase 07/12/2024 64 27 - 136 U/L Final ALT 07/12/2024 12 (L) 13 - 56 U/L Final AST 07/12/2024 52 (H) 5 - 37 U/L Final Total Bilirubin 07/12/2024 1.0 0.2 - 1.2 mg/dL Final Protein, Total 07/12/2024 9.9 (H) 6.4 - 8.2 gm/dL Final Anion Gap 07/12/2024 16 9 - 20 Final A/G Ratio 07/12/2024 0.2 (L) 1.1 - 2.5 Final Globulin 07/12/2024 8.5 (H) 1.5 - 4.5 g/dL Final Osmolality Calc 07/12/2024 279.8 Final eGFR (mL/min/1.73m2) 07/12/2024 59 (L) >=60 mL/min/1.73m2 Final Lactic Acid Level (mmol/L) 07/12/2024 1.7 0.4 - 2.0 mmol/L Final VENTRICULAR RATE EKG/MIN 07/12/2024 97 BPM Incomplete ATRIAL RATE (MCT) 07/12/2024 97 BPM Incomplete RI Interval 07/12/2024 158 ms Incomplete QRS-INTERVAL (MSEC) 07/12/2024 83 ms Incomplete QT Interval 07/12/2024 367 ms Incomplete QTC Interval 07/12/2024 466 ms Incomplete P [place] 07/12/2024 51 degrees Incomplete R AXIS (MCT) 07/12/2024 56 degrees Incomplete T Wave [place] 07/12/2024 27 degrees Incomplete [place] Diagnosis 07/12/2024 Incomplete Value:Normal sinus rhythm Normal ECG No previous ECGs available SARS-COV2/RT-PCR 07/12/2024 Negative Negative Final Lipase 07/12/2024 20 13 - 75 U/L Final POC-GLUCOSE 07/12/2024 99 70 - 110 mg/dL Final Enterprise Resource Planning Consultant 07/12/2024 [id number] Final Hemoglobin 07/12/2024 5.1 (LL) 11.2 - 15.7 GM/DL Final Hematocrit 07/12/2024 16.7 (LL) 34.1 - 44.9 % Final Issue Date/Time 07/12/2024 [id number] Preliminary Product Identification 07/12/2024 Red Blood Cells Preliminary Product Code 07/12/2024 [id number] Preliminary Status Information 07/12/2024 Transfused Preliminary Unit Number 07/12/2024 [id number] Preliminary Blood Type 07/12/2024 6200 Preliminary Cross Match Results 07/12/2024 Compatible Preliminary Total Counted 07/12/2024 100 Final % Neutros (manual) 07/12/2024 64 50 - 65 % Final % Lymphs (manual) 07/12/2024 21 (L) 24 - 44 % Final % Monos (manual) 07/12/2024 7 (H) 4 - 5 % Final % Metamyelo (manual) 07/12/2024 3 (H) 0 - 1 % Final % Myelo (manual) 07/12/2024 5 % Final RBC Morphology 07/12/2024 abnormal (A) Normal Final Platelet Estimate 07/12/2024 Decreased (A) Adequate Final Anisocytosis 07/12/2024 1+ Final Macrocytes 07/12/2024 1+ Final Ovalocytes 07/12/2024 1+ Final Rouleaux 07/12/2024 1+ Final Raw nRBC Count 07/12/2024 1 (H) 0 - 0 Final ANC# 07/12/2024 3.58 K/??L Final Antibody Screen 07/12/2024 Negative Final ABO/Rh 07/12/[address] brain without IV contrast, CT chest abdomen pelvis with contrast Narrative: HEAD CT 07/12/2024 5:06 PM HISTORY: Acute [...] multiple myeloma. No pathologic fracture is evident. Impression: No acute intracranial process. Innumerable lytic lesions [...] interpreted, and dictated by Trino Nguyen M.D. Assessment & Plan Sepsis, presumed Recent UTI -WBC 5.6, LA wnl, COVID test negative. -07/04/24 Urine C&S with Klebsiella pneumonia resistant to ampicillin and bactrim. She appears to have been taking macrobid per ER DC note on 07/04/24 which was susceptible but <=32 which might have not been effective. -CT of the head, chest, abdomen and pelvis do not show anything acute. -Blood Cx collected -UA pending. -continue Rocephin IV. Acute Metabolic Encephalopathy -CT Head no acute process -recent TSH 07/04/24 wnl -despite h/o MM her total calcium is wnl but albumin is low, will check electrolytes. -UDS -UA pending -check ammonia, Vit B12 and folate -pt is on clonazepam, flexeril, gabapentin, fentanyl patch and high dose oxycodone 10 mg q4h prn sowonder if that is contributing. symptomatic anemia Thrombocytopenia -being transfused 2 units PRBCs -trend H&H -hold Xarelto for now as we rule out any acute bleeding process. H/o MM on chemo -CT No significant interval change in innumerable lytic lesions throughout the bones consistent with patient's known history of multiple myeloma. -resume Pomalidomide -Dr Caleb strauss oncology consulted. HTN -hold metoprolol for now in setting of sepsis. -IV hydralazine prn. Prophylaxis - SCDs and PPI FULL CODE Time: 75 mins Electronically signed by: Rupert Betancourt MD, 07/12/2024 at 7:44 PM documented in this encounter Procedure Notes * Donell Castillo PA-C - 07/18/2024 2:26 PM EDT Pre-Op Diagnosis: Abnormal Labs Post-OP Diagnosis: Same Procedure Performed: CT guided bone marrow biopsy Procedural PA: Donell Castillo PA-C Supervising Radiologist: Silas Garrison MD Sedation: Versed and Fentanyl Findings: Technically successful bone marrow biopsy from left iliac wing. Complications: No immediate complications EBL: Trace/ not significant Specimen(s) removed: Bone marrow aspirations and bone marrow core biopsy Full report to follow. * Donell Castillo PA-C - 07/18/2024 2:25 PM EDT ASA Mallampati score: Immediately prior to the procedure, I performed an ASA and or Mallampati assessment. ASA 3 - Patient with moderate systemic disease with functional limitations Mallampati score: III (soft and hard palate and base of uvula visible) Donell Castillo PA-C 2:25 PM documented in this encounter Consult Notes * Mara Rodney, DIRECTOR AUDIENCE MARKETING - 07/17/2024 9:45 AM EDT Consults History of Present Illness: Asher Daniel is a 64 y.o. female with a history of multiple myeloma, hypertension, DVT/PE, shingles, asthma. She currently follows with Dr. Pacheco with hematology/oncology. The patient presents to [facility] Emergency Department on 07/12/2024 with altered mental status, fatigue, weakness, fever and loss of appetite. She apparently had multiple falls at home recently. ER workup: WBC 5.6, LA wnl hemoglobin was 5.7. ER ordered 2 units of blood. CMP unremarkable with the exception of mildly elevated LFTs. Lipase wnl CT of the head, chest, abdomen and pelvis do not show anything acute. No significant interval change in innumerable lytic lesions throughout the bones consistent with patient's known history of multiple myeloma. ER has not been able to get a urine yet because she is refusing to be cathed, but her son said thatsherrell recently was diagnosed with urinary tract infection has 1 dose of oral antibiotics left. She is tachycardic and febrile. ER gave her Rocephin. Blood Cx collected COVID test negative. CXR official report pending. EKG NSR, no acute ST changes. The patient was admitted to medicine services for further evaluation. Past Medical History: She has a past medical history of Asthma, Autologous bone marrow transplantation status ([facility]), Chronic low back pain, DVT (deep venous thrombosis) ([facility]), History of shingles (12/2019), Hypertension, Multiple myeloma ([facility]), Peripheral neuropathy, and Pulmonary embolism ([facility]). Past Surgical History: She has a past surgical history that includes Bone marrow biopsy and Total knee arthroplasty. Social History: She reports that she has never smoked. She has never used smokeless tobacco. She reports that she does not drink alcohol and does not use drugs. Family History: Her family history includes Dementia in her mother; Heart attack in her father. Allergies: Ampicillin, Penicillin, Codeine, Indomethacin, and Morphine Medications: Medications Prior to Admission Medication Sig Dispense Refill Last Dose aspirin 81 MG EC tablet Take 1 tablet (81 mg total) by mouth daily. busPIRone (BUSPAR) 10 MG tablet Take 2 tablets (20 mg total) by mouth 3 (three) times daily. cetirizine (ZyrTEC) 10 MG tablet Take 1 tablet (10 mg total) by mouth daily. cyanocobalamin 1000 MCG tablet Take 1 tablet (1,000 mcg total) by mouth daily. DULoxetine (CYMBALTA) 30 MG capsule Take 1 capsule (30 mg total) by mouth daily. ergocalciferol (Vitamin D2) 1,250 mcg (50,000 unit) capsule Take 1 capsule (50,000 Units total) by mouth every 7 days. gabapentin (NEURONTIN) 300 MG capsule Take 1 capsule (300 mg total) by mouth 3 (three) times daily Can take up to 2 caps as directed. meclizine (ANTIVERT) 12.5 mg tablet Take 1-2 mg by mouth every 6 (six) hours as needed for dizziness. metoprolol succinate (TOPROL-XL) 25 MG 24 hr tablet Take 1 tablet (25 mg total) by mouth daily. multivitamin per tablet Take 1 tablet by mouth daily. nitrofurantoin, macrocrystal-monohydrate, (MACROBID) 100 MG capsule Take 1 capsule (100 mg total) by mouth 2 (two) times daily with breakfast and dinner Start Date: 07/05/2024 for 7 days. ondansetron (ZOFRAN-ODT) 4 MG disintegrating tablet Take 1 tablet (4 mg total) by mouth every 8 (eight) hours as needed for nausea or vomiting. oxyCODONE (ROXICODONE) 10 MG tablet Take 1 tablet (10 mg total) by mouth every 4 (four) hours as needed (Pain). Max Daily Amount: 60 mg PARoxetine (PAXIL) 30 MG tablet Take 1 tablet (30 mg total) by mouth daily. potassium chloride (KLOR-CON) 20 MEQ tablet Take 1 tablet (20 mEq total) by mouth daily. promethazine (PHENERGAN) 12.5 MG tablet Take 1 tablet (12.5 mg total) by mouth every 6 (six) hours as needed for nausea or vomiting. rivaroxaban (XARELTO) 20 mg tablet Take 1 tablet (20 mg total) by mouth daily with dinner. simvastatin (ZOCOR) 10 MG tablet Take 1 tablet (10 mg total) by mouth nightly. Vitals: Blood pressure 132/67, pulse 72, temperature (P) 97.4 ??F (36.3 ??C), temperature source (P) Axillary, resp. rate (P) 20, height 1.778 m (5' 10 ), weight 98 kg (216 lb), SpO2 (P) 97 %. Physical Exam Vitals reviewed. Constitutional: Comments: Son at bedside HENT: Head: Normocephalic and atraumatic. Mouth/Throat: Mouth: Mucous membranes are dry. Cardiovascular: Rate and Rhythm: Normal rate. Rhythm irregular. Pulses: Normal pulses. Heart sounds: Normal heart sounds. No murmur heard. Pulmonary: Effort: Pulmonary effort is normal. No respiratory distress. Breath sounds: Normal breath sounds. Neurological: Mental Status: She is alert. She is disoriented. 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 female with h/o multiple myeloma (receives chemotherapy for biweekly;missed her last dose), admitted 07/12 with increasing confusion and altered mental status in setting of severe anemia, sepsis with UTI as well as elevated ammonia level . Present on Admission: Sepsis (HCC) (Admitting Diagnoses) Nutrition Evaluation Type: Initial Assessment Reason for Evaluation: MD consult- TF Subjective Comments: 07/15: Pt currently on room air. Heart healthy diet ordered with minimal intakes. Consult received for TF recs. Wt hx reviewed in EMR- pt with severe wt loss. Past Medical/Surgical History: 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HCC) Chronic low back pain DVT (deep venous thrombosis) (HCC) History of shingles 12/2019 Hypertension Multiple myeloma (HCC) Peripheral neuropathy Pulmonary embolism (HCC) Past Surgical History: Procedure Laterality Date BONE MARROW BIOPSY TOTAL KNEE ARTHROPLASTY Vitals and Basic Assessment: Vitals: Vitals: 07/15/24 1151 BP: (!) 141/79 Pulse: 98 Resp: 20 Temp: 98.8 ??F (37.1 ??C) SpO2: Oxygen: room air Giuseppe Scale: Giuseppe Scale Score: 10 Last BM: Last BM Date: 07/14/24 GI: Soft, +BS Edema: none Skin: WNL Allergies: Allergies Allergen Reactions Ampicillin Hives and Shortness Of Breath 07/12/24: Tolerated Rocephin Penicillin Hives 07/12/24: Tolerated Rocephin Codeine Indomethacin Morphine Scheduled Medications: acetaminophen acetaminophen albuterol atorvastatin budesonide busPIRone cefTRIAXone cyanocobalamin dexamethasone dextrose docusate sodium DULoxetine ergocalciferol gabapentin glucagon glucose hydrALAZINE HYDROmorphone insulin regular lactulose LORazepam meclizine melatonin ondansetron Or ondansetron PF oxyCODONE pomalidomide potassium chloride rifAXIMin sodium chloride 0.9 % (NS) sodium chloride sodium chloride 0.9 % (NS) Drips: NaCl Pertinent Labs: Glu 239 (FSBS 183, 156) *steroids- no h/o DM noted, NH3 81 Anthropometrics: Ht: Height: 177.8 cm (5' 10 ) Wt: Weight: 98 kg (216 lb) Wt hx: Wt Readings from Last 20 Encounters: 07/12/24 98 kg (216 lb) 07/07/24 98 kg (216 lb) 07/04/24 103 kg (227 lb) 05/26/24 103.2 kg (227 lb 8 oz) 05/12/24 106.6 kg (235 lb) 05/02/24 107.1 kg (236 lb 3.2 oz) 04/24/24 105.1 kg (231 lb 9.6 oz) 04/11/24 108 kg (238 lb) 03/28/24 105.2 kg (232 lb) 03/07/24 106.9 kg (235 lb 9.6 oz) 02/29/24 109 kg (240 lb 6.4 oz) 02/17/24 112.5 kg (248 lb 1.6 oz) 01/11/24 (P) 116.7 kg (257 lb 4 oz) 01/04/24 116.2 kg (256 lb 1.6 oz) 12/14/23 120.2 kg (265 lb) 11/16/23 119 kg (262 lb 4.8 oz) 10/19/23 121.9 kg (268 lb 11.2 oz) 09/21/23 122.4 kg (269 lb 12.8 oz) 08/24/23 125.2 kg (276 lb) 07/27/23 125.9 kg (277 lb 8 oz) BMI: Body mass index is 30.99 kg/m??. Wt Change: 9% wt loss in 3 months, 15% loss in 6 months, 22% loss in 1 year UBW: UTO IBW: 150# Percent IBW: 144% Adj BW: 76 kg Estimated Needs: 0473-4761 kcal/day (MSJ x 1.2-1.3, less 250) vs 3379-6730 kcal/day (25-27 kcal/kg Adj BW) 90-105 g protein/day (90-105 g/kg Adj BW) Current Nutrition Intake: Diet Orders: Diet Order(s): Heart Healthy Diet Supplements: none Intake: 0% Enteral Nutrition? no Diet Experience and Nutrition History: Previous Nutrition Education: unknown Diet Education Provided: monitor for needs Nutrition Focused Physical Exam: Date performed: unable to assess at this time Physical signs of fat or muscle wasting with severity: --- Energy intake hx: --- Wt loss: severe wt loss noted per EMR Assessment of Malnutrition: Unable to complete malnutrition evaluation at this time. Nutrition Diagnoses: Problem #1: Inadequate Oral Intake Etiology: AMS/confusion Signs/Symptoms: need for EN Status: Ongoing Nutrition Interventions and Recommendations: Collaboration with other providers and Enteral nutrition Nutrition Monitoring and Goals: 1. Diet per MD (continue if safe given AMS/confusion) Goal: safe PO 2. Once corpak placed, then start Jevity 1.5 at 20 ml/hr, adv 10 ml q 12 hours to goal of 60 ml/hr (1980 kcal and 84 g protein). FW per MD Goal: meet est needs 3. Monitor elytes, recommend replacing prn. Pt at risk for refeeding. Will order phos/mag labs Goal: wnls 4. Monitor glucose with steroid use. Adjust insulin prn. Will adjust TF to carb steady formula prn Goal: glucose 80-140 5. Assess for PCM at f/u Goal: dx/rule out PCM 6. Obtain wt 2x weekly Goal: avoid involuntary significant wt change Nutrition Risk Level: High Risk Chanel Orosco RD * Gerson Aguirre MD - 07/15/2024 12:14 PM EDTAssociated Order(s): FS_MODEL_IP IP CONSULT TO INFECTIOUS DISEASES [facility] Patient Name: Asher Daniel : 1960 Date of Consult: 07/15/2024 Admission Date: 07/12/2024 Requesting Provider: Dr. Jose Evaluating Physician: Gerson Aguirre MD Chief Complaint: AMS Reason for Consultation: fever History of present illness: Patient is a 64 y.o. female with history of asthma, chronic lower back pain, DVT, HTN, Multiple myeloma on chemotherapy, PTE, seen today for fever. No history is available from the patient due to altered mental status and her mental status was last normal on Wednesday. Presented to the ED with complaints of recent fall, mental status changes, anorexia, and weakness. She has been treated for a recentUTI by her PCP. She was seen in the ED 07/04 with same complaints, CT revealing numerous lytic lesions throughout bones consistent with MM, CXR clear, UA with 500 LE, and urine culture with Klebsiella, and she was discharged home ojn Bactrim. Back to ED with above complaints. Tmax of 102 degrees. Ad mitting labs with WBC 6.1, plt 64, hgb 7.2, Scr 0.8, PCT 0.39, ALT 10 , AST 36, total bilirubin 1.2, and NH3 81. CXR without acute process, CT without acute abnormality chest, abdomen, pelvis, lytic lesions unchanged. HCT no acute process, innumerable lytic lesions throughout calvarium consistent with MM. Liver Us with fatty changes, no focal liver lesion noted. CBD 9.6 mm, abnormally dilated. Currently on Ceftriaxone and we were consulted for evaluation and treatment. Family in room. She will open eyes, grimace. Review of Systems: Unable to provide any history due to encephalopathy 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HCC) Chronic low back pain DVT (deep venous thrombosis) (HCC) History of shingles 12/2019 Hypertension Multiple myeloma (HCC) Peripheral neuropathy Pulmonary embolism (HCC) Past Surgical History: Procedure Laterality Date BONE MARROW BIOPSY TOTAL KNEE ARTHROPLASTY Social History Socioeconomic History Marital status: / Spouse name: Not on file Number of children: 4 Years of education: Not on file Highest education level: Not on file Occupational History Not on file Tobacco Use Smoking status: Never Smokeless tobacco: Never Vaping Use Vaping Use: Never used Substance and Sexual Activity Alcohol use: Never Drug use: Never Sexual activity: Not on file Other Topics Concern Not on file Social History Narrative Not on file Social Determinants of Health Financial Resource Strain: Low Risk (07/15/2024) Financial Resource Strain : 0 Food Insecurity: No Food Insecurity (07/15/2024) Food Insecurity : 0 : 0 Transportation Needs: No Transportation Needs (07/15/2024) Transportation Needs : 2 Physical Activity: Inactive (07/12/2024) Physical Activity : 0 Stress: No Stress Concern Present (07/15/2024) Stress : 1 Social Connections: Low Risk (07/15/2024) Family and Community Support : 0 : 0 Intimate Partner Violence: Not on file Housing Stability: Low Risk (07/15/2024) Housing Stability : 0 : 0 Family History Problem Relation Age of Onset Dementia Mother Heart attack Father Allergies Allergen Reactions Ampicillin Hives and Shortness Of Breath 07/12/24: Tolerated Rocephin Penicillin Hives 07/12/24: Tolerated Rocephin Codeine Indomethacin Morphine @Scheduled Meds: acetaminophen 650 mg rectal Once acyclovir 690 mg intravenous Q8H IVPB Stopped at 07/15/24 1619 albuterol 2.5 mg nebulization Q6H 2.5 mg at 07/15/24 1701 atorvastatin 10 mg oral Daily 10 mg at 07/13/24 0856 budesonide 0.5 mg nebulization 2 times daily 0.5 mg at 07/15/24 1105 busPIRone 15 mg oral TID 15 mg at 07/14/24 1248 cyanocobalamin 1,000 mcg oral Daily 1,000 mcg at 07/13/24 0856 dexamethasone 40 mg intravenous Q24H IVPB Stopped at 07/14/24 225 DULoxetine 30 mg oral Daily 30 mg at 07/13/24 0856 ergocalciferol 50,000 Units oral Weekly 50,000 Units at 07/12/24 2254 gabapentin 100 mg oral TID 100 mg at 07/14/24 1248 insulin regular 0-12 Units subcutaneous Q6H EDUARD 3 Units at 07/15/24 1521 lactulose 20 g oral TID 20 g at 07/15/24 0900 meropenem 1 g intravenous Once Followed by meropenem 500 mg intravenous Q6H pomalidomide 1 capsule oral Daily potassium chloride 20 mEq oral Daily 20 mEq at 07/13/24 0856 rifAXIMin 550 mg oral BID sodium phosphate 15 mmol intravenous TID 15 mmol at 07/15/24 1520 Continuous Infusions: sodium chloride 0.9 % (NS) 50 mL/hr (07/15/24 1519) PRN Meds:. acetaminophen dextrose docusate sodium glucagon glucose hydrALAZINE HYDROmorphone LORazepam meclizine melatonin ondansetron Or ondansetron PF oxyCODONE sodium chloride Physical Exam: Vital Signs Vitals: 07/15/24 1109 07/15/24 1151 07/15/24 1228 07/15/24 1604 BP: (!) 141/79 (!) 147/83 Pulse: 98 97 Resp: 20 17 Temp: 98.8 ??F (37.1 ??C) 97.3 ??F (36.3 ??C) TempSrc: Axillary Axillary SpO2: 95% 99% Weight: Height: 1.778 m (5' 10 ) GENERAL somnolent and confused. in no acute distress. Ill appearing HEENT: Normocephalic, atraumatic. PERRL. No conjunctival injection. No icterus. Oropharynx clear without evidence of thrush or exudate. NECK: Supple HEART: RRR; No murmur. LUNGS: Clear to auscultation bilaterally without wheezing, rales, rhonchi. Normal respiratory effort. ABDOMEN: Soft, grimace to palpation in RUQ. nondistended. Positive bowel sounds. + guarding. Corpak EXT: No cyanosis, clubbing or edema. No palpable cord : Without Monet catheter. MSK: FROM without joint effusions noted arms/legs. SKIN: no generalized rashes noted. No peripheral stigmata of infective endocarditis NEURO: somnolent. Not oriented Laboratory Data Lab Results Component Value Date WBC 5.4 07/15/2024 HGB 7.6 (L) 07/15/2024 HCT 24.3 (L) 07/15/2024 MCV 101 (H) 07/15/2024 PLT 51 (L) 07/15/2024 Lab Results Component Value Date GLUCOSE 183 (H) 07/15/2024 CALCIUM 8.6 07/15/2024 NA 144 07/15/2024 K 3.9 07/15/2024 CO2 20 (L) 07/15/2024 CL 117 (H) 07/15/2024 BUN 14 07/15/2024 CREATININE 0.70 07/15/2024 Estimated Creatinine Clearance: 60.7 mL/min (by C-G formula based on SCr of 0.7 mg/dL). Lab Results Component Value Date ALT 10 (L) 07/13/2024 AST 36 07/13/2024 ALKPHOS 54 07/13/2024 BILITOT 1.2 07/13/2024 Lab Results Component Value Date CRP < 0.2 (L) 06/17/2021 Lab Results Component Value Date SEDRATE 13 06/17/2021 Microbiology: Microbiology Results (last 7 days) Procedure Component Value Units Date/Time Blood Culture [[id number]] Collected: 07/12/241619 Order Status: Completed Specimen: Blood Updated: 07/15/241699 Result No growth in 3 days Blood Culture [[id number]] Collected: 07/12/241619 Order Status: Completed Specimen: Blood Updated: 07/15/241699 Result No growth in 3 days SARS-COV2/RT-PCR [[id number]] (Normal) Collected: 07/12/24 1647 Order Status: Completed Specimen: Nasopharyngeal Swab Updated: 07/12/24 9543 SARS-COV2/RT-PCR Negative Narrative: Testing was performed using RT-PCR methodology approved for use under FDA Emergency Use Authorization only. Negative results do not preclude infection with the SARS-CoV-2 virus and should not be usedas the sole basis of a patient treatment or public health decisions. Negative results must be considered in the context of an individual's recent exposures, history, and presence of clinical signs/symptoms. Follow-up testing should be performed according to the current CDC recommendations. Blood Culture [[id number]] Order Status: Canceled Specimen: Blood Blood Culture [[id number]] Order Status: Canceled Specimen: Blood Radiology: Radiology Results (last 3 days) Procedure Component Value Units Date/Time XR KUB PORTABLE [[id number]] Resulted: 07/15/24 1254 Order Status: Sent Updated: 07/15/24 1255 Ultrasound liver [[id number]] Collected: 07/14/242048 Order Status: Completed Updated: 07/14/242057 Narrative: ULTRASOUND OF THE LIVER HISTORY: Elevated ammonia. [...] toward the liver. Hepatic artery is patent. Impression: Normal-appearing portal vein. Apparent extrahepatic biliary ductal dilation, of uncertain etiology or significance, as discussed above. Images reviewed, interpreted and dictated by Dr. Bacilio Patel MD XR chest AP portable [[id number]] Collected: 07/12/24 2358 Order Status: Completed Updated: 07/13/24 0042 Narrative: PORTABLE CHEST HISTORY: Mental status change for 2 days., Fall 2 days prior COMPARISON: 07/02/2024. FINDINGS: A single portable radiograph of the chest was performed. The heart is normal in size. There is a vascular congestion. There is decreased lung volume with atelectasis. There is no edema or infiltrate. The bony thorax appears intact. Impression: Underinflation with no acute process. Images reviewed, interpreted, dictated and electronically signed by Mert Knight MD Voice compressor operator portable technology (Racemi) is used for the dictation of this note and sound-alike words might be erroneously placed despite reviewing this note for accuracy. Errors in dictation may reflect use of voice recognition software and not all errors in compressor operator portable may have been detected prior to signing. CT brain without IV contrast [[id number]] Collected: 07/12/241739 Order Status: Completed Updated: 07/12/242034 Narrative: HEAD CT 07/12/2024 5:06 PM HISTORY: Acute [...] multiple myeloma. No pathologic fracture is evident. Impression: No acute intracranial process. Innumerable lytic lesions [...] interpreted, and dictated by Trino Nguyen M.D. CT chest abdomen pelvis with contrast [[id number]] Collected: 07/12/241739 Order Status: Completed Updated: 07/12/242034 Narrative: HEAD CT 07/12/2024 5:06 PM HISTORY: Acute [...] multiple myeloma. No pathologic fracture is evident. Impression: No acute intracranial process. Innumerable lytic lesions [...] interpreted, and dictated by Trino Nguyen M.D. Impression: - Fever, source unclear; ? Medications/drug fever, CBD dilatation/stone? HSV encephalitis, UTI, vs other. 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 No acute abnormalities noted on recent CT C/A/P - Acute toxic/metabolic encephalopathy- mental status was last normal on 07/10/24 per family - Recent Klebsiella UTI, was on Bactrim - CBD dilatation, 9.6mm per liver US, not noted on CT - Multiple myeloma, s/p BM transplant- now on Pomalidomide but has not had chemo in a month - Anemia - Thrombocytopenia - DVT on Eliquis - Hyperammonemia- lactulose - History of PCN allergy- Hives PLAN: - follow blood cultures, negative so far - add hepatic function panel to las from today - could consider LP depending on clinical course and GOC. She has been on anticoagulation so this would need to be held prior to LP - DC Ceftriaxone - Start Meropenem - Acyclovir 10 mg/kg IV q 8hrs - Consider GI evaluation/MRCP Dr. Aguirre has obtained the history, performed the PE, formulated the above treatment plan I (Dr. Aguirre) independently obtained a history, performed a physical exam, and formulated the above assessment and plan. I reviewed the patient's labs, micro, radiographs, and medications today. I edited the above noted to reflect my findings. I discussed in length with the patient's family members at bedside today. Complex MDM Gerson Aguirre MD 07/15/2024 * Chanel Salmeron MD - 07/14/2024 3:03 PM EDTAssociated Order(s): Inpatient consult to Neurology Inpatient consult to Neurology Consult performed by: Chanel Salmeron MD Consult ordered by: Chandra Jose MD Reason for consult: Encephalopathy History of Present Illness: Asher Daniel is a 64 y.o. female presenting with weakness and lethargy in setting of severe anemia, UTI and sepsis; she has a history of multiple myeloma over the past 5 years and is on chemotherapy as an outpatient. Per son, she has not been taking her chemo for the past few weeks due to feeling unwell. She was admitted for this as well as encephalopathy and multiple falls at home; she has continued to be encephalopathic in the hospital setting. She did receive IV Dilaudid shortly before my evaluation and is now sleeping. She did not rouse to my exam. Multiple family members are in room; they state at baseline patient is alert and cognitively intact. They state she has been battling myeloma for a long time; oncology notes indicate that her currentregimen is for palliative treatment. Past Medical History: She has a past medical history of Asthma, Autologous bone marrow transplantation status ([facility]), Chronic low back pain, DVT (deep venous thrombosis) ([facility]), History of shingles (12/2019), Hypertension, Multiple myeloma (HCC), Peripheral neuropathy, and Pulmonary embolism (HCC). Past Surgical History: She has a past surgical history that includes Bone marrow biopsy and Total knee arthroplasty. Social History: She reports that she has never smoked. She has never used smokeless tobacco. She reports that she does not drink alcohol and does not use drugs. Family History: Her family history includes Dementia in her mother; Heart attack in her father. Allergies: Ampicillin, Penicillin, Codeine, Indomethacin, and Morphine Medications: Medications Prior to Admission Medication Sig Dispense Refill Last Dose aspirin 81 MG EC tablet Take 1 tablet (81 mg total) by mouth daily. busPIRone (BUSPAR) 10 MG tablet Take 2 tablets (20 mg total) by mouth 3 (three) times daily. cetirizine (ZyrTEC) 10 MG tablet Take 1 tablet (10 mg total) by mouth daily. cyanocobalamin 1000 MCG tablet Take 1 tablet (1,000 mcg total) by mouth daily. DULoxetine (CYMBALTA) 30 MG capsule Take 1 capsule (30 mg total) by mouth daily. ergocalciferol (Vitamin D2) 1,250 mcg (50,000 unit) capsule Take 1 capsule (50,000 Units total) by mouth every 7 days. gabapentin (NEURONTIN) 300 MG capsule Take 1 capsule (300 mg total) by mouth 3 (three) times daily Can take up to 2 caps as directed. meclizine (ANTIVERT) 12.5 mg tablet Take 1-2 mg by mouth every 6 (six) hours as needed for dizziness. metoprolol succinate (TOPROL-XL) 25 MG 24 hr tablet Take 1 tablet (25 mg total) by mouth daily. multivitamin per tablet Take 1 tablet by mouth daily. nitrofurantoin, macrocrystal-monohydrate, (MACROBID) 100 MG capsule Take 1 capsule (100 mg total) by mouth 2 (two) times daily with breakfast and dinner Start Date: 07/05/2024 for 7 days. ondansetron (ZOFRAN-ODT) 4 MG disintegrating tablet Take 1 tablet (4 mg total) by mouth every 8 (eight) hours as needed for nausea or vomiting. oxyCODONE (ROXICODONE) 10 MG tablet Take 1 tablet (10 mg total) by mouth every 4 (four) hours as needed (Pain). Max Daily Amount: 60 mg PARoxetine (PAXIL) 30 MG tablet Take 1 tablet (30 mg total) by mouth daily. potassium chloride (KLOR-CON) 20 MEQ tablet Take 1 tablet (20 mEq total) by mouth daily. promethazine (PHENERGAN) 12.5 MG tablet Take 1 tablet (12.5 mg total) by mouth every 6 (six) hours as needed for nausea or vomiting. rivaroxaban (XARELTO) 20 mg tablet Take 1 tablet (20 mg total) by mouth daily with dinner. simvastatin (ZOCOR) 10 MG tablet Take 1 tablet (10 mg total) by mouth nightly. Review of Systems Unable to perform ROS: Mental status change Vitals: Blood pressure (!) 145/74, pulse 91, temperature 98.2 ??F (36.8 ??C), resp. rate 24, height 1.778 m(5' 10 ), weight 98 kg (216 lb), SpO2 100 %. Physical Exam Vitals and nursing note reviewed. Constitutional: Comments: Pt is lethargic after medication; she did briefly open eyes to voice but did not answer questions or follow commands. She is not able to participate in exam at this time Eyes: Pupils: Pupils are equal, round, and reactive to light. Cardiovascular: Rate and Rhythm: Normal rate and regular rhythm. Pulmonary: Effort: Pulmonary effort is normal. Neurological: Comments: CN intact as I can assess- limited due to mental status Patient did not follow commands or participate in exam for me; strength/sensory/coordination function not able to be assessed Exam limited by degree of lethargy Relevant Results: Labs reviewed; ammonia 71. Hgb 5.6 on admission, now 7.2 CT head 07/12 with no acute findings Assessment & Plan Principal Problem: Sepsis (HCC) 64yo F with multiple myeloma, on chemotherapy, admitted with lethargy and encephalopathy in settingof severe anemia, sepsis with UTI as well as elevated ammonia level; she has continued to be encephalopathic in this setting, likely due to metabolic derangements and infection. CT head was done on admission and unremarkable. Recommend ongoing treatment of her acute medical issues as indicated; limit sedating medication as much as possible. I will plan to check back this weekend as time permits; call with questions or concerns. Electronically signed by Chanel Salmeron MD 07/14/2024 at 3:03 PM * Susie Petersen APRN - 07/14/2024 2:56 PM EDTAssociated Order(s): Inpatient consult to Gastroenterology Inpatient consult to Gastroenterology Consult performed by: Susie Petersen APRN Consult ordered by: Chandra Jose MD History of Present Illness: Asher Daniel is a 64 y.o. female we were asked to see for hyperammonemia. PMH includes multiple myeloma s/p bone marrow transplant, DVT, HTN, and PE. Presents to our facility for concerns of increased confusion and altered mental status over the last week. She is currently receiving chemo therapy and last dose 3 weeks ago. Denies GI symptoms. ER workup: WBC 5.6, LA wnl hemoglobin was 5.7. ER ordered 2 units of blood. CMP unremarkable with the exception of mildly elevated LFTs. Lipase wnl CT of the head, chest, abdomen and pelvis do not show anything acute. No significant interval change in innumerable lytic lesions throughout the bones consistent with patient's known history of multiple myeloma. Hemoglobin 5.7 on arrival. Now 7.2 after transfusion. Denies overt bleeding reported. Past Medical History She has a past medical history of Asthma, Autologous bone marrow transplantation status ([facility]), Chronic low back pain, DVT (deep venous thrombosis) ([facility]), History of shingles (12/2019), Hypertension, Multiple myeloma (HCC), Peripheral neuropathy, and Pulmonary embolism ([facility]). Past Surgical History She has a past surgical history that includes Bone marrow biopsy and Total knee arthroplasty. Family History: Her family history includes Dementia in her mother; Heart attack in her father. Social History: Social History Socioeconomic History Marital status: / Spouse name: Not on file Number of children: 4 Years of education: Not on file Highest education level: Not on file Occupational History Not on file Tobacco Use Smoking status: Never Smokeless tobacco: Never Vaping Use Vaping Use: Never used Substance and Sexual Activity Alcohol use: Never Drug use: Never Sexual activity: Not on file Other Topics Concern Not on file Social History Narrative Not on file Social Determinants of Health Financial Resource Strain: Low Risk (07/14/2024) Financial Resource Strain : 0 Food Insecurity: No Food Insecurity (07/14/2024) Food Insecurity : 0 : 0 Transportation Needs: No Transportation Needs (07/14/2024) Transportation Needs : 2 Physical Activity: Inactive (07/12/2024) Physical Activity : 0 Stress: No Stress Concern Present (07/14/2024) Stress : 1 Social Connections: Low Risk (07/14/2024) Family and Community Support : 0 : 0 Intimate Partner Violence: Not on file Housing Stability: Low Risk (07/14/2024) Housing Stability : 0 : 0 Allergies: Ampicillin, Penicillin, Codeine, Indomethacin, and Morphine Inpatient Medications: Current Facility-Administered Medications: acetaminophen (TYLENOL) suppository 650 mg, 650 mg, rectal, Once, Nelly Gallardo MD acetaminophen (TYLENOL) tablet 1,000 mg, 1,000 mg, oral, Q6H PRN, Rupert Betancourt MD albuterol (PROVENTIL) nebulizer solution 2.5 mg, 2.5 mg, nebulization, Q6H, Rupert Betancourt MD, 2.5 mg at 07/14/24 1058 atorvastatin (LIPITOR) tablet 10 mg, 10 mg, oral, Daily, Rupert Betancourt MD, 10 mg at 07/13/24 0856 budesonide (PULMICORT) nebulizer suspension 0.5 mg, 0.5 mg, nebulization, 2 times daily, Rupert Betancourt MD, 0.5 mg at 07/14/24 1057 busPIRone (BUSPAR) tablet 15 mg, 15 mg, oral, TID, Rupert Betancourt MD, 15 mg at 07/14/24 1248 cefTRIAXone (ROCEPHIN) 1 g in sodium chloride 0.9 % (NS) 50 mL YULISSA IVPB, 1 g, intravenous, Q24H, Rupert Betancourt MD, IVPB Stopped at 07/13/24 1915 cyanocobalamin tablet 1,000 mcg, 1,000 mcg, oral, Daily, Rupert Betancourt MD, 1,000 mcg at 07/13/24 0856 dextrose 5 % and sodium chloride 0.9 % infusion, 50 mL/hr, intravenous, Continuous, Chandra Jose MD docusate sodium (COLACE) capsule 100 mg, 100 mg, oral, BID PRN, Rupert Betancourt MD DULoxetine (CYMBALTA) DR capsule 30 mg, 30 mg, oral, Daily, Rupert Betancourt MD, 30 mg at 07/13/24 0856 ergocalciferol (DRISDOL) capsule 50,000 Units, 50,000 Units, oral, Weekly, Rupert Betancourt MD, 50,000 Units at 07/12/24 2254 gabapentin (NEURONTIN) capsule 100 mg, 100 mg, oral, TID, Chandra Jose MD, 100 mg at 07/14/24 1248 hydrALAZINE (APRESOLINE) injection 5 mg, 5 mg, intravenous, Q6H PRN, Rupert Betancourt MD HYDROmorphone (DILAUDID) injection 0.5 mg, 0.5 mg, intravenous, Q4H PRN, Chandra Jose MD, 0.5 mg at 07/14/24 1332 lactulose (CHRONULAC) solution 20 g, 20 g, oral, TID, Chandra Jose MD, 20 g at 07/13/24 1509 LORazepam (ATIVAN) tablet 1 mg, 1 mg, oral, Q4H PRN, Rupert Betancourt MD meclizine (ANTIVERT) tablet 25 mg, 25 mg, oral, 4x Daily PRN, Rupert Betancourt MD melatonin tablet 5 mg, 5 mg, oral, Every Night PRN, Rupert Betancourt MD, 5 mg at 07/13/24 0035 ondansetron (ZOFRAN-ODT) disintegrating tablet 4 mg, 4 mg, oral, Q8H PRN OR ondansetron PF (ZOFRAN) injection 4 mg, 4 mg, intravenous, Q8H PRN, Rupert Betancourt MD oxyCODONE (ROXICODONE) immediate release tablet 10 mg, 10 mg, oral, Q4H PRN, Rupert Betancourt MD, 10 mg at 07/13/24 0035 pomalidomide cap 1 mg (Pt to supply own med), 1 capsule, oral, Daily, Rupert Betancourt MD potassium chloride (KLOR-CON) ER tablet 20 mEq, 20 mEq, oral, Daily, Rupert Betancourt MD, 20 mEq at 07/13/24 0856 sodium chloride flush 10 mL, 10 mL, intravenous, PRN, Sally Ribera APRN Facility-Administered Medications Ordered in Other Encounters: sodium chloride 0.9 % infusion, 2,000 mL, intravenous, Continuous, Caleb Pacheco MD Home Medications: Medications Prior to Admission Medication Sig Dispense Refill Last Dose aspirin 81 MG EC tablet Take 1 tablet (81 mg total) by mouth daily. busPIRone (BUSPAR) 10 MG tablet Take 2 tablets (20 mg total) by mouth 3 (three) times daily. cetirizine (ZyrTEC) 10 MG tablet Take 1 tablet (10 mg total) by mouth daily. cyanocobalamin 1000 MCG tablet Take 1 tablet (1,000 mcg total) by mouth daily. DULoxetine (CYMBALTA) 30 MG capsule Take 1 capsule (30 mg total) by mouth daily. ergocalciferol (Vitamin D2) 1,250 mcg (50,000 unit) capsule Take 1 capsule (50,000 Units total) by mouth every 7 days. gabapentin (NEURONTIN) 300 MG capsule Take 1 capsule (300 mg total) by mouth 3 (three) times daily Can take up to 2 caps as directed. meclizine (ANTIVERT) 12.5 mg tablet Take 1-2 mg by mouth every 6 (six) hours as needed for dizziness. metoprolol succinate (TOPROL-XL) 25 MG 24 hr tablet Take 1 tablet (25 mg total) by mouth daily. multivitamin per tablet Take 1 tablet by mouth daily. nitrofurantoin, macrocrystal-monohydrate, (MACROBID) 100 MG capsule Take 1 capsule (100 mg total) by mouth 2 (two) times daily with breakfast and dinner Start Date: 07/05/2024 for 7 days. ondansetron (ZOFRAN-ODT) 4 MG disintegrating tablet Take 1 tablet (4 mg total) by mouth every 8 (eight) hours as needed for nausea or vomiting. oxyCODONE (ROXICODONE) 10 MG tablet Take 1 tablet (10 mg total) by mouth every 4 (four) hours as needed (Pain). Max Daily Amount: 60 mg PARoxetine (PAXIL) 30 MG tablet Take 1 tablet (30 mg total) by mouth daily. potassium chloride (KLOR-CON) 20 MEQ tablet Take 1 tablet (20 mEq total) by mouth daily. promethazine (PHENERGAN) 12.5 MG tablet Take 1 tablet (12.5 mg total) by mouth every 6 (six) hours as needed for nausea or vomiting. rivaroxaban (XARELTO) 20 mg tablet Take 1 tablet (20 mg total) by mouth daily with dinner. simvastatin (ZOCOR) 10 MG tablet Take 1 tablet (10 mg total) by mouth nightly. ROS: Review of Systems Unable to perform ROS: Mental status change Vitals Blood pressure (!) 145/74, pulse 91, temperature 98.2 ??F (36.8 ??C), resp. rate 24, height 1.778 m(5' 10 ), weight 98 kg (216 lb), SpO2 100 %. Physical Exam Vitals reviewed. Constitutional: Appearance: Normal appearance. She is obese. HENT: Head: Normocephalic. Mouth/Throat: Mouth: Mucous membranes are moist. Eyes: Pupils: Pupils are equal, round, and reactive to light. Cardiovascular: Rate and Rhythm: Normal rate and regular rhythm. Pulmonary: Effort: Pulmonary effort is normal. Breath sounds: Normal breath sounds. Abdominal: General: Abdomen is flat. Bowel sounds are normal. Palpations: Abdomen is soft. Musculoskeletal: Cervical back: Neck supple. Skin: General: Skin is warm and dry. Neurological: Mental Status: She is lethargic and disoriented. Psychiatric: Comments: Unable to assess Relevant Results: Results for orders placed or performed during the hospital encounter of 07/12/24 (from the past 24 hour(s)) Hemoglobin and hematocrit Status: Abnormal Collection Time: 07/13/24 7:43 PM Result Value Ref Range Hemoglobin 7.6 (L) 11.2 - 15.7 GM/DL Hematocrit 23.5 (L) 34.1 - 44.9 % CBC - Hemogram (SJ-BKR) Status: Abnormal Collection Time: 07/14/24 6:19 AM Result Value Ref Range WBC 6.1 4.0 - 10.0 K/??L RBC 2.31 (L) 3.93 - 5.22 M/??L Hemoglobin 7.2 (L) 11.2 - 15.7 GM/DL Hematocrit 22.3 (L) 34.1 - 44.9 % MCV 97 (H) 79 - 95 fL MCH 31.2 25.6 - 32.2 pg MCHC 32.3 32.2 - 35.5 GM/DL RDW 19.4 (H) 11.7 - 14.4 % Platelets 64 (L) 140 - 375 K/CU MM MPV 11.9 9.4 - 12.3 fL Ammonia Status: Abnormal Collection Time: 07/14/24 6:19 AM Result Value Ref Range Ammonia 71 (H) 11 - 32 ??mol/L Basic Metabolic Panel Status: Abnormal Collection Time: 07/14/24 6:20 AM Result Value Ref Range Sodium 144 136 - 146 meq/L Potassium 3.7 3.5 - 5.1 meq/L Chloride 116 (H) 102 - 112 meq/L CO2 17 (L) 21 - 32 meq/L Anion Gap 15 9 - 20 BUN 13 7 - 22 mg/dL Creatinine 0.80 0.55 - 1.02 mg/dL BUN/Creatinine 16 8 - 20 Glucose 156 (H) 74 - 106 mg/dL Calcium 8.8 8.4 - 10.1 mg/dL Osmolality Calc 290.1 eGFR (mL/min/1.73m2) >60 >=60 mL/min/1.73m2 Blood gas, arterial Status: Abnormal Collection Time: 07/14/24 8:15 AM Result Value Ref Range pH, Arterial 7.50 (H) 7.35 - 7.45 pCO2, Arterial 27 (L) 35 - 45 mm Hg pO2, Arterial 82 80 - 100 mm Hg HCO3, Arterial 21 20 - 26 mmol/L Base Excess, Arterial -2.1 (L) -2.0 - 2.0 mmol/L O2 Sat, Arterial 97.5 95.0 - 100.0 % CTO2 ARTERIAL 10.4 mmol/L THB ARTERIAL 7.7 (L) 12.0 - 18.0 g/dL PaO2/FIO2 calculated 389.0 [facility] SITE Left Radial Arterial Puncture Yes Blood Gas PT Temperature C 37.0 Rafael's Test Acceptable ABG Number of Draw Attempts 1 FIO2 21.0 Blood Gas Temperature Corrected Results No No Radiology Results (last 3 days) Procedure Component Value Units Date/Time XR chest AP portable [[id number]] Collected: 07/12/24 1442 Order Status: Completed Updated: 07/13/2441 Narrative: PORTABLE CHEST HISTORY: Mental status change for 2 days., Fall 2 days prior COMPARISON: 07/02/2024. FINDINGS: A single portable radiograph of the chest was performed. The heart is normal in size. There is a vascular congestion. There is decreased lung volume with atelectasis. There is no edema or infiltrate. The bony thorax appears intact. Impression: Underinflation with no acute process. Images reviewed, interpreted, dictated and electronically signed by Mert Knight MD Voice compressor operator portable technology ([employer]) is used for the dictation of this note and sound-alike words might be erroneously placed despite reviewing this note for accuracy. Errors in dictation may reflect use of voice recognition software and not all errors in compressor operator portable may have been detected prior to signing. CT brain without IV contrast [[id number]] Collected: 07/12/241739 Order Status: Completed Updated: 07/12/242034 Narrative: HEAD CT 07/12/2024 5:06 PM HISTORY: Acute [...] multiple myeloma. No pathologic fracture is evident. Impression: No acute intracranial process. Innumerable lytic lesions [...] interpreted, and dictated by Trino Nguyen M.D. CT chest abdomen pelvis with contrast [[id number]] Collected: 07/12/241739 Order Status: Completed Updated: 07/12/242034 Narrative: HEAD CT 07/12/2024 5:06 PM HISTORY: Acute [...] multiple myeloma. No pathologic fracture is evident. Impression: No acute intracranial process. Innumerable lytic lesions [...] interpreted, and dictated by Trino Nguyen M.D. Assessment & Plan Principal Problem: Sepsis (HCC) Assessment: 64 y/o with MM on chemotherapy presents to our facility for increased confusion over the past week that has improved since admission per son. Hgb was 5.2 on arrival and has improved with 2 units of PRBCs. There is no overt bleeding. Ammonia level on arrival 101, no 71. No history liver disease. On Lactulose currently. Recommendations: No obvious liver disease noted on CT. Ordering US liver for further evaluation. Add Xifaxan. Hyperammonemia likely related to sepsis r/t UTI vs medication induced. Anemia is likely chemotherapy induced. No signs of overt GI bleeding. GI will continue to follow. Discussed with Dr. Willoughby. Electronically signed by Susie Petersen APRN 07/14/2024 at 2:57 PM Cosigned by Latonya Willoughby MD at 07/14/2024 5:07 PM EDT * Ken Urrutia MD - 07/13/2024 2:07 PM EDTAssociated Order(s): FS_MODEL_IP IP CONSULT TO HEMATOLOGY/ONCOLOGY Hematology Oncology Consult Reason for the consult: Relapsed multiple myeloma and severe anemia. History of Present Illness: Asher Daniel is a very pleasant 64 y.o. female with medical history significant for relapsed multiple myeloma, deep venous thrombosis, hypertension, pulmonary emboli and peripheral neuropathy. Patient was brought to the emergency room for worsening fatigue and confusion and was found to havesevere anemia with hemoglobin of 5.7 g/dL. CT scan of chest, abdomen and pelvis was unremarkable except for diffuse bone lytic lesion. She was diagnosed with IgA kappa multiple myeloma in 2018 and had autologous stem cell transplant in June 2020. Unfortunately she developed disease recurrence in March 2022. She recently developed disease progression on Kyprolis and Pomalyst. Patient was very somnolent today and could not give good history however according to her son and other family members she did not have recently any rectal bleeding. She has been experiencing a lot of fatigue and significant decline in her performance status. 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[facility]) Chronic low back pain DVT (deep venous thrombosis) ([facility]) History of shingles 12/2019 Hypertension Multiple myeloma (HCC) Peripheral neuropathy Pulmonary embolism ([facility]) Past Surgical History: Procedure Laterality Date BONE MARROW BIOPSY TOTAL KNEE ARTHROPLASTY Social History Socioeconomic History Marital status: / Spouse name: Not on file Number of children: 4 Years of education: Not on file Highest education level: Not on file Occupational History Not on file Tobacco Use Smoking status: Never Smokeless tobacco: Never Vaping Use Vaping Use: Never used Substance and Sexual Activity Alcohol use: Never Drug use: Never Sexual activity: Not on file Other Topics Concern Not on file Social History Narrative Not on file Social Determinants of Health Financial Resource Strain: Low Risk (07/13/2024) Financial Resource Strain : 0 Food Insecurity: No Food Insecurity (07/13/2024) Food Insecurity : 0 : 0 Transportation Needs: No Transportation Needs (07/13/2024) Transportation Needs : 2 Physical Activity: Inactive (07/12/2024) Physical Activity : 0 Stress: No Stress Concern Present (07/13/2024) Stress : 1 Social Connections: Low Risk (07/13/2024) Family and Community Support : 0 : 0 Intimate Partner Violence: Not on file Housing Stability: Low Risk (07/13/2024) Housing Stability : 0 : 0 has a past surgical history that includes Bone marrow biopsy and Total knee arthroplasty. family history includes Dementia in her mother; Heart attack in her father. Allergies: Ampicillin, Penicillin, Codeine, Indomethacin, and Morphine Medications: Current Outpatient Medications Medication Instructions aspirin 81 mg, oral, Daily busPIRone (BUSPAR) 20 mg, oral, 3 times daily cetirizine (ZYRTEC) 10 mg, oral, Daily cyanocobalamin 1,000 mcg, oral, Daily DULoxetine (CYMBALTA) 30 mg, oral, Daily ergocalciferol (VITAMIN D2) 50,000 Units, oral, Every 7 days gabapentin (NEURONTIN) 300 mg, oral, 3 times daily, May take 2 capsules three times daily as directed meclizine (ANTIVERT) 1-2 mg, oral, Every 6 hours PRN metoprolol succinate (TOPROL-XL) 25 mg, oral, Daily multivitamin per tablet 1 tablet, oral, Daily nitrofurantoin, macrocrystal-monohydrate, (MACROBID) 100 MG capsule 100 mg, oral, 2 times daily with breakfast and dinner, Start Date: 07/05/2024 for 7 days ondansetron (ZOFRAN-ODT) 4 mg, oral, Every 8 hours PRN oxyCODONE (ROXICODONE) 10 mg, oral, Every 4 hours PRN PARoxetine (PAXIL) 30 mg, oral, Daily potassium chloride (KLOR-CON) 20 MEQ tablet 20 mEq, oral, Daily potassium chloride SA (K-DUR,KLOR-CON-M) 20 MEQ tablet 20 mEq, oral, Daily promethazine (PHENERGAN) 12.5 mg, oral, Every 6 hours PRN rivaroxaban (XARELTO) 20 mg, oral, Daily with dinner simvastatin (ZOCOR) 10 mg, oral, Every Night Review of Symptoms: Review of Systems Constitutional: Positive for malaise/fatigue. HENT: Negative. Respiratory: Negative. Cardiovascular: Negative. Gastrointestinal: Negative. Genitourinary: Negative. Musculoskeletal: Negative. Skin: Negative. Neurological: Positive for dizziness and headaches. Vitals Vitals: 07/13/24 1131 07/13/24 1201 07/13/24 1237 07/13/24 1300 BP: 123/60 127/64 122/63 131/68 Pulse: 76 80 78 81 Resp: 15 16 Temp: 97.8 ??F (36.6 ??C) 98.6 ??F (37 ??C) TempSrc: Oral SpO2: 98% 93% Weight: Height: Gain/Loss Since Last Wt (Kgs): 0 kg Physical Exam Cardiovascular: Rate and Rhythm: Normal rate and regular rhythm. Pulmonary: Effort: Pulmonary effort is normal. Breath sounds: Normal breath sounds. Abdominal: General: Abdomen is flat. Palpations: Abdomen is soft. Comments: No Hepatosplenomegaly Musculoskeletal: Cervical back: Neck supple. Comments: No peripheral edema Lymphadenopathy: Comments: No peripheral adenopathy. Skin: General: Skin is warm. Neurological: Mental Status: She is alert. Relevant Results: Radiology Results (last 7 days) Procedure Component Value Units Date/Time CT brain without IV contrast [[id number]] Collected: 07/12/24 1740 Order Status: Completed Updated: 07/12/242034 Narrative: HEAD CT 07/12/2024 5:06 PM HISTORY: Acute [...] multiple myeloma. No pathologic fracture is evident. Impression: No acute intracranial process. Innumerable lytic lesions [...] interpreted, and dictated by Trino Nguyen M.D. CT chest abdomen pelvis with contrast [[id number]] Collected: 07/12/24 1740 Order Status: Completed Updated: 07/12/242034 Narrative: HEAD CT 07/12/2024 5:06 PM HISTORY: Acute [...] multiple myeloma. No pathologic fracture is evident. Impression: No acute intracranial process. Innumerable lytic lesions [...] interpreted, and dictated by Trino Nguyen M.D. XR chest AP portable [[id number]] Collected: 07/12/24 3429 Order Status: Completed Updated: 07/13/2441 Narrative: PORTABLE CHEST HISTORY: Mental status change for 2 days., Fall 2 days prior COMPARISON: 07/02/2024. FINDINGS: A single portable radiograph of the chest was performed. The heart is normal in size. There is a vascular congestion. There is decreased lung volume with atelectasis. There is no edema or infiltrate. The bony thorax appears intact. Impression: Underinflation with no acute process. Images reviewed, interpreted, dictated and electronically signed by Mert Knight MD Voice compressor operator portable technology ([employer]) is used for the dictation of this note and sound-alike words might be erroneously placed despite reviewing this note for accuracy. Errors in dictation may reflect use of voice recognition software and not all errors in compressor operator portable may have been detected prior to signing. Admission on 07/12/2024 Component Date Value Ref Range Status WBC 07/12/2024 5.6 4.0 - 10.0 K/??L Final RBC 07/12/2024 1.77 (L) 3.93 - 5.22 M/??L Final Hemoglobin 07/12/2024 5.7 (LL) 11.2 - 15.7 GM/DL Final Hematocrit 07/12/2024 18.8 (L) 34.1 - 44.9 % Final MCV 07/12/2024 106 (H) 79 - 95 fL Final MCH 07/12/2024 32.2 25.6 - 32.2 pg Final MCHC 07/12/2024 30.3 (L) 32.2 - 35.5 GM/DL Final RDW 07/12/2024 14.5 (H) 11.7 - 14.4 % Final Platelets 07/12/2024 92 (L) 140 - 375 K/CU MM Final MPV 07/12/2024 11.6 9.4 - 12.3 fL Final NRBC Absolute 07/12/2024 0.17 (H) 0 - 0.012 K/ul Final Sodium 07/12/2024 140 136 - 146 meq/L Final Potassium 07/12/2024 3.8 3.5 - 5.1 meq/L Final Specimen slightly hemolyzed. May falsely increase potassium. Chloride 07/12/2024 109 102 - 112 meq/L Final CO2 07/12/2024 19 (L) 21 - 32 meq/L Final Calcium 07/12/2024 9.2 8.4 - 10.1 mg/dL Final Glucose 07/12/2024 110 (H) 74 - 106 mg/dL Final BUN 07/12/2024 12 7 - 22 mg/dL Final Creatinine 07/12/2024 1.05 (H) 0.55 - 1.02 mg/dL Final BUN/Creatinine 07/12/2024 11 8 - 20 Final Albumin 07/12/2024 1.4 (L) 3.4 - 5.0 g/dL Final Alkaline Phosphatase 07/12/2024 64 27 - 136 U/L Final ALT 07/12/2024 12 (L) 13 - 56 U/L Final AST 07/12/2024 52 (H) 5 - 37 U/L Final Total Bilirubin 07/12/2024 1.0 0.2 - 1.2 mg/dL Final Protein, Total 07/12/2024 9.9 (H) 6.4 - 8.2 gm/dL Final Anion Gap 07/12/2024 16 9 - 20 Final A/G Ratio 07/12/2024 0.2 (L) 1.1 - 2.5 Final Globulin 07/12/2024 8.5 (H) 1.5 - 4.5 g/dL Final Osmolality Calc 07/12/2024 279.8 Final eGFR (mL/min/1.73m2) 07/12/2024 59 (L) >=60 mL/min/1.73m2 Final ESTIMATED GFR IS NOT ACCURATE CREATININE CLEARANCE IN PREDICTING GLOMERULAR FILTRATION RATE. ESTIMATED GFR IS NOT APPLICABLE FOR DIALYSIS PATIENTS. Lactic Acid Level (mmol/L) 07/12/2024 1.7 0.4 - 2.0 mmol/L Final If a Lactic Acid Level with Reflex if Indicated result is greater than 2.0, a Lactic Acid Level will be ordered to be collected 2 hours after the original collection time. VENTRICULAR RATE EKG/MIN 07/12/2024 97 BPM Final ATRIAL RATE (MCT) 07/12/2024 97 BPM Final RI Interval 07/12/2024 158 ms Final QRS-INTERVAL (MSEC) 07/12/2024 83 ms Final QT Interval 07/12/2024 367 ms Final QTC Interval 07/12/2024 466 ms Final P [place] 07/12/2024 51 degrees Final R AXIS (MCT) 07/12/2024 56 degrees Final T Wave [place] 07/12/2024 27 degrees Final [place] Diagnosis 07/12/2024 Final Value:Normal sinus rhythm Normal ECG No previous ECGs available Confirmed by Joshua MARCUM MATTHEW ([id number]), editor city BREANNA REICH ([id number]) on 07/13/2024 2:02:48 PM Color, UA 07/12/2024 Yellow Final Clarity, UA 07/12/2024 Turbid (A) Clear Final Specific [place], UA 07/12/2024 1.042 (H) 1.005 - 1.030 Final pH, UA 07/12/2024 5.5 (L) 6.0 - 8.0 Final Leukocytes, UA 07/12/2024 Negative Negative Final Nitrite, UA 07/12/2024 Negative Negative Final Protein, UA 07/12/2024 1+ (A) Negative Final Glucose, UA 07/12/2024 Normal Normal Final Ketones, UA 07/12/2024 Trace (A) Negative Final Bilirubin, UA 07/12/2024 Negative Negative Final Blood, UA 07/12/2024 1+ (A) Negative Final Urobilinogen, UA 07/12/2024 3 mg/dL (A) Normal Final Specimen Source 07/12/2024 Urine, [place] Final SARS-COV2/RT-PCR 07/12/2024 Negative Negative Final Lipase 07/12/2024 20 13 - 75 U/L Final POC-GLUCOSE 07/12/2024 99 70 - 110 mg/dL Final In the event of poor peripheral blood flow, venous or arterial blood should be used due to the potential of erroneous results. Enterprise Resource Planning Consultant 07/12/2024 [id number] Final Hemoglobin 07/12/2024 5.1 (LL) 11.2 - 15.7 GM/DL Final Hematocrit 07/12/2024 16.7 (LL) 34.1 - 44.9 % Final Issue Date/Time 07/12/202483108128393824 Final Product Identification 07/12/2024 Red Blood Cells Final Product Code 07/12/2024 [id number] Final Status Information 07/12/2024 Transfused Final Unit Number 07/12/2024 [id number] Final Blood Type 07/12/2024 6200 Final Cross Match Results 07/12/2024 Compatible Final Total Counted 07/12/2024 100 Final % Neutros (manual) 07/12/2024 64 50 - 65 % Final % Lymphs (manual) 07/12/2024 21 (L) 24 - 44 % Final % Monos (manual) 07/12/2024 7 (H) 4 - 5 % Final % Metamyelo (manual) 07/12/2024 3 (H) 0 - 1 % Final % Myelo (manual) 07/12/2024 5 % Final RBC Morphology 07/12/2024 abnormal (A) Normal Final Platelet Estimate 07/12/2024 Decreased (A) Adequate Final Anisocytosis 07/12/2024 1+ Final Macrocytes 07/12/2024 1+ Final Ovalocytes 07/12/2024 1+ Final Rouleaux 07/12/2024 1+ Final Raw nRBC Count 07/12/2024 1 (H) 0 - 0 Final ANC# 07/12/2024 3.58 K/??L Final Antibody Screen 07/12/2024 Negative Final ABO/Rh 07/12/2024 A POSITIVE Final Procalcitonin 07/12/2024 0.39 <=0.50 ng/mL Final Sepsis comment <0.5 Antibiotics Discouraged >0.5 Antibiotics [...] renal failure, trauma, localized infections and [place]. Amphetamine Urine 07/13/2024 Negative Negative Final Barbiturate Screen 07/13/2024 Negative Negative Final Benzodiazepine Screen 07/13/2024 Negative Negative Final Cocaine (Metab.) Screen 07/13/2024 Negative Negative Final Opiate Screen 07/13/2024 Positive (A) Negative Final Phencyclidine Screen 07/13/2024 Negative Negative Final Tricyclic Screen 07/13/2024 Negative Negative Final Tetrahydrocannabinol 07/13/2024 Positive (A) Negative Final Creatinine, Ur 07/13/2024 219.0 mg/dL Final pH, UA 07/13/2024 5.0 (L) 6.0 - 8.0 Final Vitamin B12 07/12/2024 2,764 (H) 193 - 986 pg/mL Final Folate 07/13/2024 5.10 3.10 - 17.50 ng/mL Final Calcium Ionized 07/13/2024 1.07 (L) 1.12 - 1.32 mmol/L Final Magnesium 07/12/2024 1.9 1.5 - 2.4 mg/dL Final Phosphorus 07/12/2024 1.2 (L) 2.5 - 4.9 mg/dL Final WBC, UA 07/12/2024 3-5 (A) None Seen /HPF Final RBC, UA 07/12/2024 0-2 (A) None Seen /HPF Final Bacteria, UA 07/12/2024 1+ (A) None Seen, Trace Final Mucus 07/12/2024 1+ (A) None Seen Final SQUAMOUS EPITHELIAL 07/12/2024 0-2 (A) None Seen /HPF Final Ammonia 07/13/2024 101 (H) 11 - 32 ??mol/L Final eBrevia has become aware of sulfasalazine and sulfapyridine [...] occur prior to administration of the drug. WBC 07/13/2024 5.1 4.0 - 10.0 K/??L Final RBC 07/13/2024 1.79 (L) 3.93 - 5.22 M/??L Final Hemoglobin 07/13/2024 5.6 (LL) 11.2 - 15.7 GM/DL Final Hematocrit 07/13/2024 18.3 (L) 34.1 - 44.9 % Final MCV 07/13/2024 102 (H) 79 - 95 fL Final MCH 07/13/2024 31.3 25.6 - 32.2 pg Final MCHC 07/13/2024 30.6 (L) 32.2 - 35.5 GM/DL Final RDW 07/13/2024 17.2 (H) 11.7 - 14.4 % Final Platelets 07/13/2024 76 (L) 140 - 375 K/CU MM Final MPV 07/13/2024 11.5 9.4 - 12.3 fL Final Sodium 07/13/2024 142 136 - 146 meq/L Final Potassium 07/13/2024 3.9 3.5 - 5.1 meq/L Final Chloride 07/13/2024 113 (H) 102 - 112 meq/L Final CO2 07/13/2024 19 (L) 21 - 32 meq/L Final Calcium 07/13/2024 8.3 (L) 8.4 - 10.1 mg/dL Final Glucose 07/13/2024 124 (H) 74 - 106 mg/dL Final BUN 07/13/2024 13 7 - 22 mg/dL Final Creatinine 07/13/2024 0.88 0.55 - 1.02 mg/dL Final BUN/Creatinine 07/13/2024 15 8 - 20 Final Albumin 07/13/2024 1.2 (L) 3.4 - 5.0 g/dL Final Alkaline Phosphatase 07/13/2024 54 27 - 136 U/L Final ALT 07/13/2024 10 (L) 13 - 56 U/L Final AST 07/13/2024 36 5 - 37 U/L Final Total Bilirubin 07/13/2024 1.2 0.2 - 1.2 mg/dL Final Protein, Total 07/13/2024 8.6 (H) 6.4 - 8.2 gm/dL Final Anion Gap 07/13/2024 14 9 - 20 Final A/G Ratio 07/13/2024 0.2 (L) 1.1 - 2.5 Final Globulin 07/13/2024 7.4 (H) 1.5 - 4.5 g/dL Final Osmolality Calc 07/13/2024 284.7 Final eGFR (mL/min/1.73m2) 07/13/2024 >60 >=60 mL/min/1.73m2 Final ESTIMATED GFR IS NOT ACCURATE CREATININE CLEARANCE IN PREDICTING GLOMERULAR FILTRATION RATE. ESTIMATED GFR IS NOT APPLICABLE FOR DIALYSIS PATIENTS. Issue Date/Time 07/13/[id number] Final Product Identification 07/13/2024 Red Blood Cells Final Product Code 07/13/2024 [id number] Final Status Information 07/13/2024 Transfused Final Unit Number 07/13/2024 [id number] Final Blood Type 07/13/2024 6200 Final Cross Match Results 07/13/2024 Compatible Final Assessment: This is a very pleasant 64-year-old lady with medical history significant for IgA kappa multiple myeloma, relapsed disease. Most recently she had disease progression on kyprolis and Pomalyst. She wasadmitted for severe anemia, hemoglobin was 5.6 g/dL. Platelet count was 76,000 with normal white blood count. Serum creatinine was normal. Vitamin B12 was elevated. I believe this anemia and also thrombocytopenia are most likely due to underlying progressing multiple myeloma. However other etiologies need to be ruled out. She was in process of changing her myeloma treatment. Plan: I agree with the blood transfusion. I will send today for serum iron, iron saturation, TIBC, ferritin, direct Lena test, LDH and haptoglobin. We will continue to follow-up. Thank you very much for allowing me to participate in taking care of this pleasant lady. Signed: Electronically signed by Ken Urrutia MD 07/13/2024 2:07 PM EDT documented in this encounter ED Notes * Sally Ribera, DIRECTOR [employer]UDIENCE MARKETING - 07/12/2024 4:35 PM EDT Subjective Chief Complaint: Altered Mental Status Altered Mental Status Asher Daniel is a 64 y.o. female who has a past medical history of Asthma, Autologous bone marrow transplantation status ([facility]), Chronic low back pain, DVT (deep venous thrombosis) ([facility]), History of shingles (12/2019), Hypertension, Multiple myeloma ([facility]), Peripheral neuropathy, and Pulmonary embolism ([facility]). who is presenting with altered mental status, fatigue, weakness, fever and lossof appetite. Patient is disoriented at this time and is unable to answer questions. Her son is at the bedside and provides history. Patient's son says she has had a steady decline over the last two weeks. He says she will not eat, has become increasingly confused and weak. She had a fall three daysago and hit her head. Son also reports recent urinary tract infection. She has one dose of oral antibiotics left for this. ROS is negative except as documented in the HPI. Patient History 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HCC) Chronic low back pain DVT (deep venous thrombosis) (HCC) History of shingles 12/2019 Hypertension Multiple myeloma (HCC) Peripheral neuropathy Pulmonary embolism (HCC) Past Surgical History: Procedure Laterality Date BONE MARROW BIOPSY TOTAL KNEE ARTHROPLASTY Family History Problem Relation Age of Onset Dementia Mother Heart attack Father Social History Tobacco Use Smoking status: Never Smokeless tobacco: Never Substance Use Topics Alcohol use: Never I reviewed the HPI, ROS and PFSH documentation recorded by others in the medical record and supplemented my note as needed. Review of Systems Review of Systems Unable to perform ROS: Mental status change Physical Exam ED Triage Vitals [07/12/24 1557] Enc Vitals Group BP (!) 153/70 Pulse 98 Resp 20 Temp 100.5 ??F (38.1 ??C) Temp src Axillary SpO2 98 % Weight 98 kg (216 lb) Height 1.778 m (5' 10 ) Head Circumference Peak Flow Pain Score Pain Loc Pain Edu? Excl. in GC? Physical Exam Constitutional: Appearance: She is ill-appearing. HENT: Head: Comments: There is a small abrasion on the upper right forehead. Eyes: Pupils: Pupils are equal, round, and reactive to light. Cardiovascular: Rate and Rhythm: Regular rhythm. Tachycardia present. Pulses: Normal pulses. Heart sounds: Normal heart sounds. Pulmonary: Effort: Pulmonary effort is normal. Breath sounds: Normal breath sounds. Abdominal: Palpations: Abdomen is soft. Tenderness: There is abdominal tenderness. Musculoskeletal: Cervical back: Neck supple. No rigidity or tenderness. Right lower leg: Edema present. Left lower leg: Edema present. Skin: General: Skin is warm and dry. Capillary Refill: Capillary refill takes less than 2 seconds. Neurological: Mental Status: She is alert. She is disoriented. Neurologic Exam Cranial Nerves CN III, IV, Pupils are equal, round, and reactive to light. Ortho Exam ED Course & MDM Medications sodium chloride flush 10 mL (has no administration in time range) cefTRIAXone (ROCEPHIN) 2 g in sodium chloride 0.9 % (NS) 50 mL YULISSA IVPB (0 g intravenous Stopped 07/12/241856) sodium chloride 0.9 % infusion (20 mL/hr intravenous New Bag 07/12/241935) ketorolac (TORADOL) injection 15 mg (has no administration in time range) mometasone-formoterol (DULERA) HFA inhaler 200-5 mcg/puff (has no administration in time range) busPIRone (BUSPAR) tablet 15 mg (has no administration in time range) cyanocobalamin tablet 1,000 mcg (has no administration in time range) DULoxetine (CYMBALTA) DR capsule 30 mg (has no administration in time range) ergocalciferol (DRISDOL) capsule 50,000 Units (has no administration in time range) fentaNYL (DURAGESIC) patch 25 mcg/hr (has no administration in time range) gabapentin (NEURONTIN) capsule 300 mg (has no administration in time range) meclizine (ANTIVERT) tablet 25 mg (has no administration in time range) oxyCODONE (ROXICODONE) immediate release tablet 10 mg (has no administration in time range) pomalidomide cap 1 mg (has no administration in time range) potassium chloride (KLOR-CON) ER tablet 20 mEq (has no administration in time range) atorvastatin (LIPITOR) tablet 10 mg (has no administration in time range) sodium chloride 0.9% (NS) bolus (0 mLs intravenous Stopped 07/12/241856) iopamidoL (ISOVUE-370) 370 mg iodine /mL (76 %) injection 100 mL (100 mLs intravenous Given 07/12/241706) Results for orders placed or performed during the hospital encounter of 07/12/24 SARS-COV2/RT-PCR Specimen: Nasopharyngeal Swab Result Value Ref Range SARS-COV2/RT-PCR Negative Negative CBC with automated diff Result Value Ref Range WBC 5.6 4.0 - 10.0 K/??L RBC 1.77 (L) 3.93 - 5.22 M/??L Hemoglobin 5.7 (LL) 11.2 - 15.7 GM/DL Hematocrit 18.8 (L) 34.1 - 44.9 % MCV 106 (H) 79 - 95 fL MCH 32.2 25.6 - 32.2 pg MCHC 30.3 (L) 32.2 - 35.5 GM/DL RDW 14.5 (H) 11.7 - 14.4 % Platelets 92 (L) 140 - 375 K/CU MM MPV 11.6 9.4 - 12.3 fL NRBC Absolute 0.17 (H) 0 - 0.012 K/ul Comprehensive metabolic panel Result Value Ref Range Sodium 140 136 - 146 meq/L Potassium 3.8 3.5 - 5.1 meq/L Chloride 109 102 - 112 meq/L CO2 19 (L) 21 - 32 meq/L Calcium 9.2 8.4 - 10.1 mg/dL Glucose 110 (H) 74 - 106 mg/dL BUN 12 7 - 22 mg/dL Creatinine 1.05 (H) 0.55 - 1.02 mg/dL BUN/Creatinine 11 8 - 20 Albumin 1.4 (L) 3.4 - 5.0 g/dL Alkaline Phosphatase 64 27 - 136 U/L ALT 12 (L) 13 - 56 U/L AST 52 (H) 5 - 37 U/L Total Bilirubin 1.0 0.2 - 1.2 mg/dL Protein, Total 9.9 (H) 6.4 - 8.2 gm/dL Anion Gap 16 9 - 20 A/G Ratio 0.2 (L) 1.1 - 2.5 Globulin 8.5 (H) 1.5 - 4.5 g/dL Osmolality Calc 279.8 eGFR (mL/min/1.73m2) 59 (L) >=60 mL/min/1.73m2 Lactic Acid with reflex (SJ) Result Value Ref Range Lactic Acid Level (mmol/L) 1.7 0.4 - 2.0 mmol/L Lipase Result Value Ref Range Lipase 20 13 - 75 U/L Hemoglobin and hematocrit Result Value Ref Range Hemoglobin 5.1 (LL) 11.2 - 15.7 GM/DL Hematocrit 16.7 (LL) 34.1 - 44.9 % Manual Differential Result Value Ref Range Total Counted 100 % Neutros (manual) 64 50 - 65 % % Lymphs (manual) 21 (L) 24 - 44 % % Monos (manual) 7 (H) 4 - 5 % % Metamyelo (manual) 3 (H) 0 - 1 % % Myelo (manual) 5 % RBC Morphology abnormal (A) Normal Platelet Estimate Decreased (A) Adequate Anisocytosis 1+ Macrocytes 1+ Ovalocytes 1+ Rouleaux 1+ Raw nRBC Count 1 (H) 0 - 0 ANC# 3.58 K/??L Glucose, Nova Meter Result Value Ref Range POC-GLUCOSE 99 70 - 110 mg/dL [employer] Consultant [phone] ECG 12 lead Result Value Ref Range VENTRICULAR RATE EKG/MIN 97 BPM ATRIAL RATE (MCT) 97 BPM RI Interval 158 ms QRS-INTERVAL (MSEC) 83 ms QT Interval 367 ms QTC Interval 466 ms P [place] 51 degrees R AXIS (MCT) 56 degrees T Wave [place] 27 degrees [place] Diagnosis Normal sinus rhythm Normal ECG No previous ECGs available Prepare RBC: 2 Units Result Value Ref Range Issue Date/Time [id number] Product Identification Red Blood Cells Product Code [id number] Status Information Transfused Unit Number [id number] Blood Type [id number] Cross Match Results Compatible Antibody Screen Result Value Ref Range Antibody Screen Negative ABO/Rh Result Value Ref Range ABO/Rh A POSITIVE CT brain without IV contrast Preliminary Result No acute intracranial process. Innumerable lytic lesions [...] interpreted, and dictated by Trino Nguyen M.D. CT chest abdomen pelvis with contrast Preliminary Result No acute intracranial process. Innumerable lytic lesions [...] interpreted, and dictated by Trino Nguyen M.D. XR chest AP portable (Results Pending) ED Course as of 07/12/242007Jul 12, 2024 1620 ATTESTATION: Dr. Ackerman: I saw the patient [id number]. I performed a substantive portion of the MDM. [MP] 1621 EKG interpreted by me: Sinus rhythm, rate, no acute ST/T changes, this is a normal EKG [MP] ED Course User Index [MP] Facundo Ackerman MD Procedures Medical Decision Making Patient is ill-appearing and intermittently confused upon arrival. She has abdominal tenderness. She is tachycardic and febrile upon arrival. Sepsis protocol was initiated. Patient was given 1 L normal saline initially instead of a 30 cc/kg because of concern for fluid overload. Patient was given IV Rocephin here in the emergency department. Significant labs include hemoglobin 5.1, hematocrit 16.7, creatinine 1.05. 2 units of packed red blood cells were ordered and started here in the emergency department. EKG, interpreted by me in the absence of master sheet clerk, shows normal sinus rhythm without ST elevation or signs of acute ischemia. CT of the brain is negative for any acute intracranial process. CT abdomen and pelvis was also negative for any acute intra-abdominal process. I have discussed case with hospitalist who agrees on the need for admission for sepsis and symptomatic anemia. I have discussed admission and the plan of care with the patient and her son who is at the bedside. Her son is agreeable. Amount and/or Complexity of Data Reviewed Labs: ordered. Decision-making details documented in ED Course. Radiology: ordered. Decision-making details documented in ED Course. ECG/medicine tests: ordered and independent interpretation performed. Decision- making details documented in ED Course. Risk Prescription drug management. Decision regarding hospitalization. Assessment & Plan Clinical Impression Diagnosis Comment Added By Time Added Sepsis (HCC) Sally Ribera APRN 07/12/2024 7:44 PM Transient alteration of awareness Sally Ribera APRN 07/12/2024 7:44 PM Anemia Sally Ribera APRN 07/12/2024 7:44 PM Disposition Admit [3] - 07/12/2024 8:07 PM New Prescriptions No medications on file Electronically Signed By Sally Ribera APRN 07/12/242007 Cosigned by Facundo Ackerman MD at 07/13/2024 7:01 AM EDT Associated attestation - Facundo Ackerman MD - 07/13/2024 6:01 AM CDT Approximately 30 minutes total critical care time spent directly and personally managing the patient due to a high probability of clinically significant, life- threatening deterioration, the patient required my highest level of preparedness. This includes obtaining history, examination, hemodynamic m onitoring, ordering and review of studies, urgent treatment and development of management plan frequent reassessment, not including separately billable procedures. Critical care diagnoses include butnot limited to: sepsis This visit was performed by both the physician and an APC. I personally evaluated and examined thepatient. I performed all aspects of the MDM as documented. . * Sonali Foster RN - 07/12/2024 3:57 PM EDT Pt presents to ED with complaints of AMS x 2 days. Patient family at bedside states pt is normally AAO x4 and independent. Patient had fall 2 days ago, is currently on xarelto. documented in this encounter Miscellaneous Notes * Nursing Progress Notes - Angi Parra RN - 07/20/2024 11:06 AM EDT Report called to Anastacia at signature. [phone] * Plan of Care - Nabila Springer RN - 07/19/2024 2:05 PM EDT Problem: Pain Goal: Patient's pain/discomfort is manageable Description: Assess and monitor patient's pain using appropriate pain scale. Collaborate with interdisciplinary team and initiate plan and interventions as ordered. Re-assess patient's pain level after pain management intervention. Outcome: Progressing Problem: Safety Goal: Patient will be injury free during hospitalization Description: Assess and monitor vitals signs, neurological status including level of consciousness and orientation. Assess patient's risk for falls and implement fall prevention plan of care and interventions per hospital policy. Ensure arm band on, uncluttered walking paths in room, adequate room lighting, call light and overbed table within reach, bed in low position, wheels locked, side rails up per policy, and non-skid footwear provided. Outcome: Progressing Problem: Potential for Developing a Blood Clot Goal: Tissue perfusion is adequate - venous Description: Assess and monitor skin color and temperature, skin integrity, pulses, capillary refill, edema, pain in extremities, Homans' sign, labs (D- dimer), and diagnostic tests (ultrasound, CT scan, VQ scan). Monitor for signs and symptoms of deep vein thrombosis (swelling of calf/thigh, redness, pain, tenderness). Monitor for signs and symptoms of pulmonary embolism (dyspnea, tachypnea, tachycardia). Collaborate with interdisciplinary team and initiate plans and interventions as needed Outcome: Progressing Problem: Daily Care Goal: Daily care needs are met Description: Assess and monitor ability to perform self care and identify potential discharge needs. Outcome: Progressing Problem: Potential for Infection Goal: Remains infection free Description: Assess and monitor vital signs, skin (color, moisture, integrity, turgor), respiratorystatus, urinary and gastrointestinal status, and labs (WBC, cultures). Administer antibiotics and antipyretics as ordered. Ensure aseptic care of all intravenous lines, invasive tubes/drains and wounds. Monitor for signs and symptoms of infection (redness, warmth, discharge, increased body temperature). Wash hands properly before and after each patient care activity. Follow isolation guidelines per hospital protocol/policy. Collaborate with interdisciplinary team and initiate plan and interventions as ordered. Outcome: Progressing Problem: Psychosocial Needs Goal: Demonstrates ability to cope with hospitalization/illness Description: Assess and monitor patients ability to cope with his/her illness. Outcome: Progressing Goal: Collaborate with patient/family/caregiver to identify patient specific goals for this hospitalization Outcome: Progressing Problem: Anxiety Goal: Anxiety is at manageable level Description: Assess and monitor patient's anxiety level. Monitor for signs and symptoms of anxiety both physical and emotional (heart palpitations, chest pain, shortness of breath, headaches, nausea,feeling jumpy, restlessness, irritable, apprehensive). Collaborate with interdisciplinary team and initiate plan and interventions as ordered. Outcome: Progressing Problem: Inadequate Coping Goal: Demonstrates ability to cope effectively Description: Patient is able to verbalize feelings related to emotional state. Outcome: Progressing Goal: Verbalizes adaptive coping mechanisms Description: Able to verbalize adaptive coping mechanisms such as physical activity, distraction, and deep breathing exercises. Outcome: Progressing Goal: Verbalizes personal strengths Description: Spend time with the patient using empathy and active listening skills. Outcome: Progressing Problem: Discharge Barriers Goal: Patient's discharge needs are met Description: Collaborate with interdisciplinary team and initiate plans and interventions as needed. Outcome: Progressing Problem: NEUROSENSORY Goal: Achieves maximal functionality and self care Outcome: Progressing Problem: GENITOURINARY Goal: Absence of urinary retention Outcome: Progressing Goal: Urinary catheter remains patent Outcome: Progressing Problem: METABOLIC/FLUID AND ELECTROLYTES Goal: Electrolytes maintained within normal limits Outcome: Progressing Problem: SKIN/TISSUE INTEGRITY Goal: Skin integrity intact Outcome: Progressing Goal: Oral mucous membranes intact Outcome: Progressing Problem: HEMATOLOGIC Goal: Maintains hematologic stability Outcome: Progressing Problem: KNOWLEDGE DEFICIT Goal: Pt/family/caregiver demonstrates understanding of disease process, treatment plan, medications and/or discharge instructions Outcome: Progressing Problem: Knowledge Deficit Goal: Patient/family/caregiver demonstrates understanding of disease process, treatment plan, medications, and discharge instructions Description: Complete learning assessment and assess knowledge base. Outcome: Progressing Problem: Potential for Falls Goal: Patient will remain free of falls Description: Assess and monitor vitals signs, neurological status including level of consciousness and orientation. Reassess fall risk per hospital policy. Ensure arm band on, uncluttered walking paths in room, adequate room lighting, call light and overbed table within reach, bed in low position, wheels locked, side rails up per policy, and non-skid footwear provided. Outcome: Progressing Problem: Compromised Skin Integrity Goal: LTG - Patient will be free from infection Outcome: Progressing Goal: LTG - Patient will maintain/improve skin integrity through proper skin care techniques Outcome: Progressing Goal: LTG - Patient will demonstrate appropriate pressure relief techniques Outcome: Progressing Goal: LTG - Patient will demonstrate appropriate skin care techniques Outcome: Progressing Goal: LTG - Patient will be free from infection Outcome: Progressing Goal: STG - Patient demonstrates skin care/treatment/dressing change Outcome: Progressing Goal: STG - Patient will maintain good skin integrity Outcome: Progressing Goal: STG - Patient exhibits signs of wound healing. Outcome: Progressing Goal: STG - Patient demonstrates pressure reduction techniques Outcome: Progressing Goal: STG - Patient demonstrates preventative skin care measures Outcome: Progressing Problem: Increased Risk for /GI Compromise Goal: Optimal /GI status Outcome: Progressing * Plan of Care - Simona Luna RN - 07/18/2024 11:42 PM EDT Problem: Pain Goal: Patient's pain/discomfort is manageable Description: Assess and monitor patient's pain using appropriate pain scale. Collaborate with interdisciplinary team and initiate plan and interventions as ordered. Re-assess patient's pain level after pain management intervention. Outcome: Progressing Problem: Safety Goal: Patient will be injury free during hospitalization Description: Assess and monitor vitals signs, neurological status including level of consciousness and orientation. Assess patient's risk for falls and implement fall prevention plan of care and interventions per hospital policy. Ensure arm band on, uncluttered walking paths in room, adequate room lighting, call light and overbed table within reach, bed in low position, wheels locked, side rails up per policy, and non-skid footwear provided. Outcome: Progressing Problem: Potential for Developing a Blood Clot Goal: Tissue perfusion is adequate - venous Description: Assess and monitor skin color and temperature, skin integrity, pulses, capillary refill, edema, pain in extremities, Homans' sign, labs (D- dimer), and diagnostic tests (ultrasound, CT scan, VQ scan). Monitor for signs and symptoms of deep vein thrombosis (swelling of calf/thigh, redness, pain, tenderness). Monitor for signs and symptoms of pulmonary embolism (dyspnea, tachypnea, tachycardia). Collaborate with interdisciplinary team and initiate plans and interventions as needed Outcome: Progressing Problem: Daily Care Goal: Daily care needs are met Description: Assess and monitor ability to perform self care and identify potential discharge needs. Outcome: Progressing Problem: Potential for Infection Goal: Remains infection free Description: Assess and monitor vital signs, skin (color, moisture, integrity, turgor), respiratorystatus, urinary and gastrointestinal status, and labs (WBC, cultures). Administer antibiotics and antipyretics as ordered. Ensure aseptic care of all intravenous lines, invasive tubes/drains and wounds. Monitor for signs and symptoms of infection (redness, warmth, discharge, increased body temperature). Wash hands properly before and after each patient care activity. Follow isolation guidelines per hospital protocol/policy. Collaborate with interdisciplinary team and initiate plan and interventions as ordered. Outcome: Progressing Problem: Psychosocial Needs Goal: Demonstrates ability to cope with hospitalization/illness Description: Assess and monitor patients ability to cope with his/her illness. Outcome: Progressing Goal: Collaborate with patient/family/caregiver to identify patient specific goals for this hospitalization Outcome: Progressing Problem: Anxiety Goal: Anxiety is at manageable level Description: Assess and monitor patient's anxiety level. Monitor for signs and symptoms of anxiety both physical and emotional (heart palpitations, chest pain, shortness of breath, headaches, nausea,feeling jumpy, restlessness, irritable, apprehensive). Collaborate with interdisciplinary team and initiate plan and interventions as ordered. Outcome: Progressing Problem: Inadequate Coping Goal: Demonstrates ability to cope effectively Description: Patient is able to verbalize feelings related to emotional state. Outcome: Progressing Goal: Verbalizes adaptive coping mechanisms Description: Able to verbalize adaptive coping mechanisms such as physical activity, distraction, and deep breathing exercises. Outcome: Progressing Goal: Verbalizes personal strengths Description: Spend time with the patient using empathy and active listening skills. Outcome: Progressing Problem: Discharge Barriers Goal: Patient's discharge needs are met Description: Collaborate with interdisciplinary team and initiate plans and interventions as needed. Outcome: Progressing Problem: NEUROSENSORY Goal: Achieves maximal functionality and self care Outcome: Progressing Problem: GENITOURINARY Goal: Absence of urinary retention Outcome: Progressing Goal: Urinary catheter remains patent Outcome: Progressing Problem: METABOLIC/FLUID AND ELECTROLYTES Goal: Electrolytes maintained within normal limits Outcome: Progressing Problem: SKIN/TISSUE INTEGRITY Goal: Skin integrity intact Outcome: Progressing Goal: Oral mucous membranes intact Outcome: Progressing Problem: HEMATOLOGIC Goal: Maintains hematologic stability Outcome: Progressing Problem: KNOWLEDGE DEFICIT Goal: Pt/family/caregiver demonstrates understanding of disease process, treatment plan, medications and/or discharge instructions Outcome: Progressing Problem: Knowledge Deficit Goal: Patient/family/caregiver demonstrates understanding of disease process, treatment plan, medications, and discharge instructions Description: Complete learning assessment and assess knowledge base. Outcome: Progressing Problem: Potential for Falls Goal: Patient will remain free of falls Description: Assess and monitor vitals signs, neurological status including level of consciousness and orientation. Reassess fall risk per hospital policy. Ensure arm band on, uncluttered walking paths in room, adequate room lighting, call light and overbed table within reach, bed in low position, wheels locked, side rails up per policy, and non-skid footwear provided. Outcome: Progressing Problem: Compromised Skin Integrity Goal: LTG - Patient will be free from infection Outcome: Progressing Goal: LTG - Patient will maintain/improve skin integrity through proper skin care techniques Outcome: Progressing Goal: LTG - Patient will demonstrate appropriate pressure relief techniques Outcome: Progressing Goal: LTG - Patient will demonstrate appropriate skin care techniques Outcome: Progressing Goal: LTG - Patient will be free from infection Outcome: Progressing Goal: STG - Patient demonstrates skin care/treatment/dressing change Outcome: Progressing Goal: STG - Patient will maintain good skin integrity Outcome: Progressing Goal: STG - Patient exhibits signs of wound healing. Outcome: Progressing Goal: STG - Patient demonstrates pressure reduction techniques Outcome: Progressing Goal: STG - Patient demonstrates preventative skin care measures Outcome: Progressing Problem: Increased Risk for /GI Compromise Goal: Optimal /GI status Outcome: Progressing * Nursing Progress Notes - Alma Martin RN - 07/18/2024 10:12 AM EDTSummary: Wound Care Consult: Images from the original note were not included. Visit Date: 07/18/2024 Patient Name: Asher Daniel Date of : 1960 07/18/24 1012 Wound 07/14/24 Buttocks Inner;Right Date First Assessed/Time First Assessed: 07/14/24 1558 Location: Buttocks Wound Location Orientation: Inner;Right Site Assessment Purple;Red;Non-blanchable erythema Cecille-Wound Assessment Clean;Dry;Intact;Red Drainage Amount None Odor None Primary Dressing Silicone bordered dressing Dressing Changed Changed Dressing Status Clean;Dry;Intact Pressure Injury Stage DTPI Patient is seen this morning for wound care consult related to wound to the coccyx. The patient is sitting comfortably in bed with her son at the bed side. The patient is intermittently confused but is agreeable to dressing change. The wound is dressed and described as documented above. The Coccyx presents with a purple/red and non blanching DTI related to pressure. There is no open skin at this time and no moisture associated breakdown. A silicone border foam dressing is reccommended and placed to alleviate pressure. Patient tolerated the dressing change well. PIPP is in place and MANSI mattress is in use. Please consult wound care if wound worsens or new area of concern arises. * Plan of Care - Simona Luna RN - 07/17/2024 11:57 PM EDT Problem: Pain Goal: Patient's pain/discomfort is manageable Description: Assess and monitor patient's pain using appropriate pain scale. Collaborate with interdisciplinary team and initiate plan and interventions as ordered. Re-assess patient's pain level after pain management intervention. Outcome: Progressing Problem: Safety Goal: Patient will be injury free during hospitalization Description: Assess and monitor vitals signs, neurological status including level of consciousness and orientation. Assess patient's risk for falls and implement fall prevention plan of care and interventions per hospital policy. Ensure arm band on, uncluttered walking paths in room, adequate room lighting, call light and overbed table within reach, bed in low position, wheels locked, side rails up per policy, and non-skid footwear provided. Outcome: Progressing Problem: Potential for Developing a Blood Clot Goal: Tissue perfusion is adequate - venous Description: Assess and monitor skin color and temperature, skin integrity, pulses, capillary refill, edema, pain in extremities, Homans' sign, labs (D- dimer), and diagnostic tests (ultrasound, CT scan, VQ scan). Monitor for signs and symptoms of deep vein thrombosis (swelling of calf/thigh, redness, pain, tenderness). Monitor for signs and symptoms of pulmonary embolism (dyspnea, tachypnea, tachycardia). Collaborate with interdisciplinary team and initiate plans and interventions as needed Outcome: Progressing Problem: Daily Care Goal: Daily care needs are met Description: Assess and monitor ability to perform self care and identify potential discharge needs. Outcome: Progressing Problem: Potential for Infection Goal: Remains infection free Description: Assess and monitor vital signs, skin (color, moisture, integrity, turgor), respiratorystatus, urinary and gastrointestinal status, and labs (WBC, cultures). Administer antibiotics and antipyretics as ordered. Ensure aseptic care of all intravenous lines, invasive tubes/drains and wounds. Monitor for signs and symptoms of infection (redness, warmth, discharge, increased body temperature). Wash hands properly before and after each patient care activity. Follow isolation guidelines per hospital protocol/policy. Collaborate with interdisciplinary team and initiate plan and interventions as ordered. Outcome: Progressing Problem: Psychosocial Needs Goal: Demonstrates ability to cope with hospitalization/illness Description: Assess and monitor patients ability to cope with his/her illness. Outcome: Progressing Goal: Collaborate with patient/family/caregiver to identify patient specific goals for this hospitalization Outcome: Progressing Problem: Anxiety Goal: Anxiety is at manageable level Description: Assess and monitor patient's anxiety level. Monitor for signs and symptoms of anxiety both physical and emotional (heart palpitations, chest pain, shortness of breath, headaches, nausea,feeling jumpy, restlessness, irritable, apprehensive). Collaborate with interdisciplinary team and initiate plan and interventions as ordered. Outcome: Progressing Problem: Inadequate Coping Goal: Demonstrates ability to cope effectively Description: Patient is able to verbalize feelings related to emotional state. Outcome: Progressing Goal: Verbalizes adaptive coping mechanisms Description: Able to verbalize adaptive coping mechanisms such as physical activity, distraction, and deep breathing exercises. Outcome: Progressing Goal: Verbalizes personal strengths Description: Spend time with the patient using empathy and active listening skills. Outcome: Progressing Problem: Discharge Barriers Goal: Patient's discharge needs are met Description: Collaborate with interdisciplinary team and initiate plans and interventions as needed. Outcome: Progressing Problem: NEUROSENSORY Goal: Achieves maximal functionality and self care Outcome: Progressing Problem: GENITOURINARY Goal: Absence of urinary retention Outcome: Progressing Goal: Urinary catheter remains patent Outcome: Progressing Problem: METABOLIC/FLUID AND ELECTROLYTES Goal: Electrolytes maintained within normal limits Outcome: Progressing Problem: SKIN/TISSUE INTEGRITY Goal: Skin integrity intact Outcome: Progressing Goal: Oral mucous membranes intact Outcome: Progressing Problem: HEMATOLOGIC Goal: Maintains hematologic stability Outcome: Progressing Problem: KNOWLEDGE DEFICIT Goal: Pt/family/caregiver demonstrates understanding of disease process, treatment plan, medications and/or discharge instructions Outcome: Progressing Problem: Knowledge Deficit Goal: Patient/family/caregiver demonstrates understanding of disease process, treatment plan, medications, and discharge instructions Description: Complete learning assessment and assess knowledge base. Outcome: Progressing Problem: Potential for Falls Goal: Patient will remain free of falls Description: Assess and monitor vitals signs, neurological status including level of consciousness and orientation. Reassess fall risk per hospital policy. Ensure arm band on, uncluttered walking paths in room, adequate room lighting, call light and overbed table within reach, bed in low position, wheels locked, side rails up per policy, and non-skid footwear provided. Outcome: Progressing Problem: Compromised Skin Integrity Goal: LTG - Patient will be free from infection Outcome: Progressing Goal: LTG - Patient will maintain/improve skin integrity through proper skin care techniques Outcome: Progressing Goal: LTG - Patient will demonstrate appropriate pressure relief techniques Outcome: Progressing Goal: LTG - Patient will demonstrate appropriate skin care techniques Outcome: Progressing Goal: LTG - Patient will be free from infection Outcome: Progressing Goal: STG - Patient demonstrates skin care/treatment/dressing change Outcome: Progressing Goal: STG - Patient will maintain good skin integrity Outcome: Progressing Goal: STG - Patient exhibits signs of wound healing. Outcome: Progressing Goal: STG - Patient demonstrates pressure reduction techniques Outcome: Progressing Goal: STG - Patient demonstrates preventative skin care measures Outcome: Progressing Problem: Increased Risk for /GI Compromise Goal: Optimal /GI status Outcome: Progressing * Nursing Progress Notes - Myla Frey RN - 07/17/2024 9:00 AM EDTSummary: WOCN consult CWON attempted to see patient today, patient was working with PT/OT, sitting on edge of bed attempting to transfer to [facility], unable to assess inner buttocks. Will try again this week. PIPP measures to be implemented by nursing staff. * Plan of Care - Reina Cunningham RN - 07/17/2024 7:54 AM EDT Problem: Pain Goal: Patient's pain/discomfort is manageable Description: Assess and monitor patient's pain using appropriate pain scale. Collaborate with interdisciplinary team and initiate plan and interventions as ordered. Re-assess patient's pain level after pain management intervention. Outcome: Progressing Problem: Safety Goal: Patient will be injury free during hospitalization Description: Assess and monitor vitals signs, neurological status including level of consciousness and orientation. Assess patient's risk for falls and implement fall prevention plan of care and interventions per hospital policy. Ensure arm band on, uncluttered walking paths in room, adequate room lighting, call light and overbed table within reach, bed in low position, wheels locked, side rails up per policy, and non-skid footwear provided. Outcome: Progressing Problem: Potential for Developing a Blood Clot Goal: Tissue perfusion is adequate - venous Description: Assess and monitor skin color and temperature, skin integrity, pulses, capillary refill, edema, pain in extremities, Homans' sign, labs (D- dimer), and diagnostic tests (ultrasound, CT scan, VQ scan). Monitor for signs and symptoms of deep vein thrombosis (swelling of calf/thigh, redness, pain, tenderness). Monitor for signs and symptoms of pulmonary embolism (dyspnea, tachypnea, tachycardia). Collaborate with interdisciplinary team and initiate plans and interventions as needed Outcome: Progressing Problem: Daily Care Goal: Daily care needs are met Description: Assess and monitor ability to perform self care and identify potential discharge needs. Outcome: Progressing Problem: Potential for Infection Goal: Remains infection free Description: Assess and monitor vital signs, skin (color, moisture, integrity, turgor), respiratorystatus, urinary and gastrointestinal status, and labs (WBC, cultures). Administer antibiotics and antipyretics as ordered. Ensure aseptic care of all intravenous lines, invasive tubes/drains and wounds. Monitor for signs and symptoms of infection (redness, warmth, discharge, increased body temperature). Wash hands properly before and after each patient care activity. Follow isolation guidelines per hospital protocol/policy. Collaborate with interdisciplinary team and initiate plan and interventions as ordered. Outcome: Progressing Problem: Psychosocial Needs Goal: Demonstrates ability to cope with hospitalization/illness Description: Assess and monitor patients ability to cope with his/her illness. Outcome: Progressing Goal: Collaborate with patient/family/caregiver to identify patient specific goals for this hospitalization Outcome: Progressing Problem: Anxiety Goal: Anxiety is at manageable level Description: Assess and monitor patient's anxiety level. Monitor for signs and symptoms of anxiety both physical and emotional (heart palpitations, chest pain, shortness of breath, headaches, nausea,feeling jumpy, restlessness, irritable, apprehensive). Collaborate with interdisciplinary team and initiate plan and interventions as ordered. Outcome: Progressing Problem: Inadequate Coping Goal: Demonstrates ability to cope effectively Description: Patient is able to verbalize feelings related to emotional state. Outcome: Progressing Goal: Verbalizes adaptive coping mechanisms Description: Able to verbalize adaptive coping mechanisms such as physical activity, distraction, and deep breathing exercises. Outcome: Progressing Goal: Verbalizes personal strengths Description: Spend time with the patient using empathy and active listening skills. Outcome: Progressing Problem: Discharge Barriers Goal: Patient's discharge needs are met Description: Collaborate with interdisciplinary team and initiate plans and interventions as needed. Outcome: Progressing Problem: NEUROSENSORY Goal: Achieves maximal functionality and self care Outcome: Progressing Problem: GENITOURINARY Goal: Absence of urinary retention Outcome: Progressing Goal: Urinary catheter remains patent Outcome: Progressing Problem: METABOLIC/FLUID AND ELECTROLYTES Goal: Electrolytes maintained within normal limits Outcome: Progressing Problem: SKIN/TISSUE INTEGRITY Goal: Skin integrity intact Outcome: Progressing Goal: Oral mucous membranes intact Outcome: Progressing Problem: HEMATOLOGIC Goal: Maintains hematologic stability Outcome: Progressing Problem: KNOWLEDGE DEFICIT Goal: Pt/family/caregiver demonstrates understanding of disease process, treatment plan, medications and/or discharge instructions Outcome: Progressing Problem: Knowledge Deficit Goal: Patient/family/caregiver demonstrates understanding of disease process, treatment plan, medications, and discharge instructions Description: Complete learning assessment and assess knowledge base. Outcome: Progressing Problem: Potential for Falls Goal: Patient will remain free of falls Description: Assess and monitor vitals signs, neurological status including level of consciousness and orientation. Reassess fall risk per hospital policy. Ensure arm band on, uncluttered walking paths in room, adequate room lighting, call light and overbed table within reach, bed in low position, wheels locked, side rails up per policy, and non-skid footwear provided. Outcome: Progressing Problem: Compromised Skin Integrity Goal: LTG - Patient will be free from infection Outcome: Progressing Goal: LTG - Patient will maintain/improve skin integrity through proper skin care techniques Outcome: Progressing Goal: LTG - Patient will demonstrate appropriate pressure relief techniques Outcome: Progressing Goal: LTG - Patient will demonstrate appropriate skin care techniques Outcome: Progressing Goal: LTG - Patient will be free from infection Outcome: Progressing Goal: STG - Patient demonstrates skin care/treatment/dressing change Outcome: Progressing Goal: STG - Patient will maintain good skin integrity Outcome: Progressing Goal: STG - Patient exhibits signs of wound healing. Outcome: Progressing Goal: STG - Patient demonstrates pressure reduction techniques Outcome: Progressing Goal: STG - Patient demonstrates preventative skin care measures Outcome: Progressing Problem: Increased Risk for /GI Compromise Goal: Optimal /GI status Outcome: Progressing * Plan of Care - Malika Del Castillo - 07/16/2024 11:38 PM EDT Problem: Pain Goal: Patient's pain/discomfort is manageable Description: Assess and monitor patient's pain using appropriate pain scale. Collaborate with interdisciplinary team and initiate plan and interventions as ordered. Re-assess patient's pain level after pain management intervention. Outcome: Progressing Problem: Safety Goal: Patient will be injury free during hospitalization Description: Assess and monitor vitals signs, neurological status including level of consciousness and orientation. Assess patient's risk for falls and implement fall prevention plan of care and interventions per hospital policy. Ensure arm band on, uncluttered walking paths in room, adequate room lighting, call light and overbed table within reach, bed in low position, wheels locked, side rails up per policy, and non-skid footwear provided. Outcome: Progressing Problem: Potential for Developing a Blood Clot Goal: Tissue perfusion is adequate - venous Description: Assess and monitor skin color and temperature, skin integrity, pulses, capillary refill, edema, pain in extremities, Homans' sign, labs (D- dimer), and diagnostic tests (ultrasound, CT scan, VQ scan). Monitor for signs and symptoms of deep vein thrombosis (swelling of calf/thigh, redness, pain, tenderness). Monitor for signs and symptoms of pulmonary embolism (dyspnea, tachypnea, tachycardia). Collaborate with interdisciplinary team and initiate plans and interventions as needed Outcome: Progressing Problem: Daily Care Goal: Daily care needs are met Description: Assess and monitor ability to perform self care and identify potential discharge needs. Outcome: Progressing Problem: Potential for Infection Goal: Remains infection free Description: Assess and monitor vital signs, skin (color, moisture, integrity, turgor), respiratorystatus, urinary and gastrointestinal status, and labs (WBC, cultures). Administer antibiotics and antipyretics as ordered. Ensure aseptic care of all intravenous lines, invasive tubes/drains and wounds. Monitor for signs and symptoms of infection (redness, warmth, discharge, increased body temperature). Wash hands properly before and after each patient care activity. Follow isolation guidelines per hospital protocol/policy. Collaborate with interdisciplinary team and initiate plan and interventions as ordered. Outcome: Progressing Problem: Psychosocial Needs Goal: Demonstrates ability to cope with hospitalization/illness Description: Assess and monitor patients ability to cope with his/her illness. Outcome: Progressing Goal: Collaborate with patient/family/caregiver to identify patient specific goals for this hospitalization Outcome: Progressing Problem: Anxiety Goal: Anxiety is at manageable level Description: Assess and monitor patient's anxiety level. Monitor for signs and symptoms of anxiety both physical and emotional (heart palpitations, chest pain, shortness of breath, headaches, nausea,feeling jumpy, restlessness, irritable, apprehensive). Collaborate with interdisciplinary team and initiate plan and interventions as ordered. Outcome: Progressing Problem: Inadequate Coping Goal: Demonstrates ability to cope effectively Description: Patient is able to verbalize feelings related to emotional state. Outcome: Progressing Goal: Verbalizes adaptive coping mechanisms Description: Able to verbalize adaptive coping mechanisms such as physical activity, distraction, and deep breathing exercises. Outcome: Progressing Goal: Verbalizes personal strengths Description: Spend time with the patient using empathy and active listening skills. Outcome: Progressing Problem: Discharge Barriers Goal: Patient's discharge needs are met Description: Collaborate with interdisciplinary team and initiate plans and interventions as needed. Outcome: Progressing Problem: NEUROSENSORY Goal: Achieves maximal functionality and self care Outcome: Progressing Problem: GENITOURINARY Goal: Absence of urinary retention Outcome: Progressing Goal: Urinary catheter remains patent Outcome: Progressing Problem: METABOLIC/FLUID AND ELECTROLYTES Goal: Electrolytes maintained within normal limits Outcome: Progressing Problem: SKIN/TISSUE INTEGRITY Goal: Skin integrity intact Outcome: Progressing Goal: Oral mucous membranes intact Outcome: Progressing Problem: HEMATOLOGIC Goal: Maintains hematologic stability Outcome: Progressing Problem: KNOWLEDGE DEFICIT Goal: Pt/family/caregiver demonstrates understanding of disease process, treatment plan, medications and/or discharge instructions Outcome: Progressing Problem: Knowledge Deficit Goal: Patient/family/caregiver demonstrates understanding of disease process, treatment plan, medications, and discharge instructions Description: Complete learning assessment and assess knowledge base. Outcome: Progressing Problem: Potential for Falls Goal: Patient will remain free of falls Description: Assess and monitor vitals signs, neurological status including level of consciousness and orientation. Reassess fall risk per hospital policy. Ensure arm band on, uncluttered walking paths in room, adequate room lighting, call light and overbed table within reach, bed in low position, wheels locked, side rails up per policy, and non-skid footwear provided. Outcome: Progressing Problem: Compromised Skin Integrity Goal: LTG - Patient will be free from infection Outcome: Progressing Goal: LTG - Patient will maintain/improve skin integrity through proper skin care techniques Outcome: Progressing Goal: LTG - Patient will demonstrate appropriate pressure relief techniques Outcome: Progressing Goal: LTG - Patient will demonstrate appropriate skin care techniques Outcome: Progressing Goal: LTG - Patient will be free from infection Outcome: Progressing Goal: STG - Patient demonstrates skin care/treatment/dressing change Outcome: Progressing Goal: STG - Patient will maintain good skin integrity Outcome: Progressing Goal: STG - Patient exhibits signs of wound healing. Outcome: Progressing Goal: STG - Patient demonstrates pressure reduction techniques Outcome: Progressing Goal: STG - Patient demonstrates preventative skin care measures Outcome: Progressing Problem: Increased Risk for /GI Compromise Goal: Optimal /GI status Outcome: Progressing * Nursing Progress Notes - Cynthia Vickers RN - 07/16/2024 5:29 PM EDT 1446H- Patient develop A-fib RVR HR 150-180 bpm, Dr Jose was updated, one dose of metoprolol IV given, EKG was done. 1500H-Seen and examined by Dr Kimball and family was updated regarding the plan of care. 1600H-Cardizem drip was started as ordered and transferred to room 416 in C for continuity of care. * Nursing Progress Notes - Cassie Nice RN - 07/16/2024 8:00 AM EDT During the timeframe of 6250-2859 patient care was provided through a virtually integrated care team model. Any physical assessments or hands-on patient care documented by this Virtual RN were completed with a clinician at the bedside and the virtual RN acting as a scribe/mentor. * Significant Event - Mara Foley RN - 07/16/2024 3:10 AM EDT RN requested corpak repositioning. KUB shows tube terminates in tip of stomach. Repositioning unsuccessful. Pt loudly protesting, crying, coughing and unable to follow instructions. Tube pulled back and attempted repositioning again. Patient with bloody oral secretions and tube found to be coiled in mouth. Post repositioning, pt coughing small amount of bloody secretions, airway cleared with oralsuctioning. O2 sat 100%. Recommend small bore feeding tube placed under fluoroscopy. MD notified \RN * Plan of Care - Kristin Dorsey RN - 07/15/2024 10:30 PM EDT During the timeframe of 1419-2083 patient care was provided through a virtually integrated care team model. Any physical assessments or hands-on patient care documented by this Virtual RN were completed with a clinician at the bedside and the virtual RN acting as a scribe/mentor Problem: Pain Goal: Patient's pain/discomfort is manageable Description: Assess and monitor patient's pain using appropriate pain scale. Collaborate with interdisciplinary team and initiate plan and interventions as ordered. Re-assess patient's pain level after pain management intervention. 07/15/20242229 by Kristin Dorsey RN Outcome: Progressing 07/15/20242228 by Kristin Dorsey RN Outcome: Progressing Problem: Safety Goal: Patient will be injury free during hospitalization Description: Assess and monitor vitals signs, neurological status including level of consciousness and orientation. Assess patient's risk for falls and implement fall prevention plan of care and interventions per hospital policy. Ensure arm band on, uncluttered walking paths in room, adequate room lighting, call light and overbed table within reach, bed in low position, wheels locked, side rails up per policy, and non-skid footwear provided. 07/15/20242229 by Kristin Dorsey RN Outcome: Progressing 07/15/20242228 by Kristin Dorsey RN Outcome: Progressing Problem: Potential for Developing a Blood Clot Goal: Tissue perfusion is adequate - venous Description: Assess and monitor skin color and temperature, skin integrity, pulses, capillary refill, edema, pain in extremities, Homans' sign, labs (D- dimer), and diagnostic tests (ultrasound, CT scan, VQ scan). Monitor for signs and symptoms of deep vein thrombosis (swelling of calf/thigh, redness, pain, tenderness). Monitor for signs and symptoms of pulmonary embolism (dyspnea, tachypnea, tachycardia). Collaborate with interdisciplinary team and initiate plans and interventions as needed 07/15/20242229 by Kristin Dorsey RN Outcome: Progressing 07/15/20242228 by Kristin Dorsey RN Outcome: Progressing Problem: Daily Care Goal: Daily care needs are met Description: Assess and monitor ability to perform self care and identify potential discharge needs. 07/15/20242229 by Kristin Dorsey RN Outcome: Progressing 07/15/20242228 by Kristin Dorsey RN Outcome: Progressing Problem: Potential for Infection Goal: Remains infection free Description: Assess and monitor vital signs, skin (color, moisture, integrity, turgor), respiratorystatus, urinary and gastrointestinal status, and labs (WBC, cultures). Administer antibiotics and antipyretics as ordered. Ensure aseptic care of all intravenous lines, invasive tubes/drains and wounds. Monitor for signs and symptoms of infection (redness, warmth, discharge, increased body temperature). Wash hands properly before and after each patient care activity. Follow isolation guidelines per hospital protocol/policy. Collaborate with interdisciplinary team and initiate plan and interventions as ordered. 07/15/20242229 by Kristin Dorsey RN Outcome: Progressing 07/15/20242228 by Kristin Dorsey RN Outcome: Progressing Problem: Psychosocial Needs Goal: Demonstrates ability to cope with hospitalization/illness Description: Assess and monitor patients ability to cope with his/her illness. 07/15/20242229 by Kristin Dorsey RN Outcome: Progressing 07/15/20242228 by Kristin Dorsey RN Outcome: Progressing Goal: Collaborate with patient/family/caregiver to identify patient specific goals for this hospitalization 07/15/20242229 by Kristin Dorsey RN Outcome: Progressing 07/15/20242228 by Kirstin Dorsey RN Outcome: Progressing Problem: Anxiety Goal: Anxiety is at manageable level Description: Assess and monitor patient's anxiety level. Monitor for signs and symptoms of anxiety both physical and emotional (heart palpitations, chest pain, shortness of breath, headaches, nausea,feeling jumpy, restlessness, irritable, apprehensive). Collaborate with interdisciplinary team and initiate plan and interventions as ordered. 07/15/20242229 by Kristin Dorsey RN Outcome: Progressing 07/15/20242228 by Kristin Dorsey RN Outcome: Progressing Problem: Inadequate Coping Goal: Demonstrates ability to cope effectively Description: Patient is able to verbalize feelings related to emotional state. 07/15/20242229 by Kristin Dorsey RN Outcome: Progressing 07/15/20242228 by Krsitin Dorsey RN Outcome: Progressing Goal: Verbalizes adaptive coping mechanisms Description: Able to verbalize adaptive coping mechanisms such as physical activity, distraction, and deep breathing exercises. 07/15/20242229 by Kristin Dorsey RN Outcome: Progressing 07/15/20242228 by Kristin Dorsey RN Outcome: Progressing Goal: Verbalizes personal strengths Description: Spend time with the patient using empathy and active listening skills. 07/15/20242229 by Kristin Dorsey RN Outcome: Progressing 07/15/20242228 by Kristin Dorsey RN Outcome: Progressing Problem: Discharge Barriers Goal: Patient's discharge needs are met Description: Collaborate with interdisciplinary team and initiate plans and interventions as needed. 07/15/20242229 by Kristin Dorsey RN Outcome: Progressing 07/15/20242228 by Kristin Dorsey RN Outcome: Progressing Problem: NEUROSENSORY Goal: Achieves maximal functionality and self care 07/15/20242229 by Kristin Dorsey RN Outcome: Progressing 07/15/20242228 by Kristin Dorsey RN Outcome: Progressing Problem: GENITOURINARY Goal: Absence of urinary retention 07/15/20242229 by Kristin Dorsey RN Outcome: Progressing 07/15/20242228 by Kristin Dorsey RN Outcome: Progressing Goal: Urinary catheter remains patent 07/15/20242229 by Kristin Dorsey RN Outcome: Progressing 07/15/20242228 by Kristin Dorsey RN Outcome: Progressing Problem: METABOLIC/FLUID AND ELECTROLYTES Goal: Electrolytes maintained within normal limits 07/15/20242229 by Kristin Dorsey RN Outcome: Progressing 07/15/20242228 by Kristin Dorsey RN Outcome: Progressing Problem: SKIN/TISSUE INTEGRITY Goal: Skin integrity intact 07/15/20242229 by Kristin Dorsey RN Outcome: Progressing 07/15/20242228 by Kristin Dorsey RN Outcome: Progressing Goal: Oral mucous membranes intact 07/15/20242229 by Kristin Dorsey RN Outcome: Progressing 07/15/20242228 by Kristin Dorsey RN Outcome: Progressing Problem: HEMATOLOGIC Goal: Maintains hematologic stability 07/15/20242229 by Kristin Dorsey RN Outcome: Progressing 07/15/20242228 by Kristin Dorsey RN Outcome: Progressing Problem: KNOWLEDGE DEFICIT Goal: Pt/family/caregiver demonstrates understanding of disease process, treatment plan, medications and/or discharge instructions 07/15/20242229 by Kristin Dorsey RN Outcome: Progressing 07/15/20242228 by Kristin Dorsey RN Outcome: Progressing Problem: Knowledge Deficit Goal: Patient/family/caregiver demonstrates understanding of disease process, treatment plan, medications, and discharge instructions Description: Complete learning assessment and assess knowledge base. 07/15/20242229 by Kristin Dorsey RN Outcome: Progressing 07/15/20242228 by Kristin Dorsey RN Outcome: Progressing Problem: Potential for Falls Goal: Patient will remain free of falls Description: Assess and monitor vitals signs, neurological status including level of consciousness and orientation. Reassess fall risk per hospital policy. Ensure arm band on, uncluttered walking paths in room, adequate room lighting, call light and overbed table within reach, bed in low position, wheels locked, side rails up per policy, and non-skid footwear provided. 07/15/20242229 by Kristin Dorsey RN Outcome: Progressing 07/15/20242228 by Kristin Dorsey RN Outcome: Progressing Problem: Compromised Skin Integrity Goal: LTG - Patient will be free from infection 07/15/2024 2230 by Kristin Dorsey RN Outcome: Progressing 07/15/2024 222 by Kristin Dorsey RN Outcome: Progressing Goal: LTG - Patient will maintain/improve skin integrity through proper skin care techniques 07/15/2024 223 by Kristin Dorsey RN Outcome: Progressing 07/15/2024 222 by Kristin Dorsey RN Outcome: Progressing Goal: LTG - Patient will demonstrate appropriate pressure relief techniques 07/15/2024 2230 by Kristin Dorsey RN Outcome: Progressing 07/15/2024 222 by Kristin Dorsey RN Outcome: Progressing Goal: LTG - Patient will demonstrate appropriate skin care techniques 07/15/2024 223 by Kristin Dorsey RN Outcome: Progressing 07/15/2024 222 by Kristin Dorsey RN Outcome: Progressing Goal: LTG - Patient will be free from infection 07/15/2024 223 by Kristin Dorsey RN Outcome: Progressing 07/15/2024 222 by Kristin Dorsey RN Outcome: Progressing Goal: STG - Patient demonstrates skin care/treatment/dressing change 07/15/20242229 by Kristin Dorsey RN Outcome: Progressing 07/15/20242228 by Kristin Dorsey RN Outcome: Progressing Goal: STG - Patient will maintain good skin integrity 07/15/20242229 by Kristin Dorsey RN Outcome: Progressing 07/15/2024 222 by Kristin Dorsey RN Outcome: Progressing Goal: STG - Patient exhibits signs of wound healing. 07/15/2024 223 by Kristin Dorsey RN Outcome: Progressing 07/15/2024 222 by Kristin Dorsey RN Outcome: Progressing Goal: STG - Patient demonstrates pressure reduction techniques 07/15/20242229 by Kristin Dorsey RN Outcome: Progressing 07/15/2024 222 by Kristin Dorsey RN Outcome: Progressing Goal: STG - Patient demonstrates preventative skin care measures 07/15/2024 223 by Kristin Dorsey RN Outcome: Progressing 07/15/20242228 by Kristin Dorsey RN Outcome: Progressing Problem: Increased Risk for /GI Compromise Goal: Optimal /GI status Outcome: Progressing * Nursing Progress Notes - Alma Dominguez RN - 07/15/2024 4:06 PM EDT STAT KUB was ordered at 11:30am to confirm placement of corpak so that tube feeds could be started and meds given, 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 Family updated * Nursing Progress Notes - Anastacia Mcadams RN - 07/15/2024 9:15 AM EDT During the timeframe of 3528-7540 patient care will be provided through a virtually integrated careteam model. Any physical assessments or hands-on patient care documented by this Virtual RN will becompleted with a clinician at the bedside and the virtual RN acting as a scribe/mentor. * Plan of Care - Kristin Dorsey RN - 07/15/2024 12:27 AM EDT During the timeframe of 4294-0207 patient care was provided through a virtually integrated care team model. Any physical assessments or hands-on patient care documented by this Virtual RN were completed with a clinician at the bedside and the virtual RN acting as a scribe/mentor Problem: Pain Goal: Patient's pain/discomfort is manageable Description: Assess and monitor patient's pain using appropriate pain scale. Collaborate with interdisciplinary team and initiate plan and interventions as ordered. Re-assess patient's pain level after pain management intervention. Outcome: Progressing Problem: Safety Goal: Patient will be injury free during hospitalization Description: Assess and monitor vitals signs, neurological status including level of consciousness and orientation. Assess patient's risk for falls and implement fall prevention plan of care and interventions per hospital policy. Ensure arm band on, uncluttered walking paths in room, adequate room lighting, call light and overbed table within reach, bed in low position, wheels locked, side rails up per policy, and non-skid footwear provided. Outcome: Progressing Problem: Potential for Developing a Blood Clot Goal: Tissue perfusion is adequate - venous Description: Assess and monitor skin color and temperature, skin integrity, pulses, capillary refill, edema, pain in extremities, Homans' sign, labs (D- dimer), and diagnostic tests (ultrasound, CT scan, VQ scan). Monitor for signs and symptoms of deep vein thrombosis (swelling of calf/thigh, redness, pain, tenderness). Monitor for signs and symptoms of pulmonary embolism (dyspnea, tachypnea, tachycardia). Collaborate with interdisciplinary team and initiate plans and interventions as needed Outcome: Progressing Problem: Daily Care Goal: Daily care needs are met Description: Assess and monitor ability to perform self care and identify potential discharge needs. Outcome: Progressing Problem: Potential for Infection Goal: Remains infection free Description: Assess and monitor vital signs, skin (color, moisture, integrity, turgor), respiratorystatus, urinary and gastrointestinal status, and labs (WBC, cultures). Administer antibiotics and antipyretics as ordered. Ensure aseptic care of all intravenous lines, invasive tubes/drains and wounds. Monitor for signs and symptoms of infection (redness, warmth, discharge, increased body temperature). Wash hands properly before and after each patient care activity. Follow isolation guidelines per hospital protocol/policy. Collaborate with interdisciplinary team and initiate plan and interventions as ordered. Outcome: Progressing Problem: Psychosocial Needs Goal: Demonstrates ability to cope with hospitalization/illness Description: Assess and monitor patients ability to cope with his/her illness. Outcome: Progressing Goal: Collaborate with patient/family/caregiver to identify patient specific goals for this hospitalization Outcome: Progressing Problem: Anxiety Goal: Anxiety is at manageable level Description: Assess and monitor patient's anxiety level. Monitor for signs and symptoms of anxiety both physical and emotional (heart palpitations, chest pain, shortness of breath, headaches, nausea,feeling jumpy, restlessness, irritable, apprehensive). Collaborate with interdisciplinary team and initiate plan and interventions as ordered. Outcome: Progressing Problem: Inadequate Coping Goal: Demonstrates ability to cope effectively Description: Patient is able to verbalize feelings related to emotional state. Outcome: Progressing Goal: Verbalizes adaptive coping mechanisms Description: Able to verbalize adaptive coping mechanisms such as physical activity, distraction, and deep breathing exercises. Outcome: Progressing Goal: Verbalizes personal strengths Description: Spend time with the patient using empathy and active listening skills. Outcome: Progressing Problem: Discharge Barriers Goal: Patient's discharge needs are met Description: Collaborate with interdisciplinary team and initiate plans and interventions as needed. Outcome: Progressing Problem: NEUROSENSORY Goal: Achieves maximal functionality and self care Outcome: Progressing Problem: GENITOURINARY Goal: Absence of urinary retention Outcome: Progressing Goal: Urinary catheter remains patent Outcome: Progressing Problem: METABOLIC/FLUID AND ELECTROLYTES Goal: Electrolytes maintained within normal limits Outcome: Progressing Problem: SKIN/TISSUE INTEGRITY Goal: Skin integrity intact Outcome: Progressing Goal: Oral mucous membranes intact Outcome: Progressing Problem: HEMATOLOGIC Goal: Maintains hematologic stability Outcome: Progressing Problem: KNOWLEDGE DEFICIT Goal: Pt/family/caregiver demonstrates understanding of disease process, treatment plan, medications and/or discharge instructions Outcome: Progressing Problem: Knowledge Deficit Goal: Patient/family/caregiver demonstrates understanding of disease process, treatment plan, medications, and discharge instructions Description: Complete learning assessment and assess knowledge base. Outcome: Progressing Problem: Potential for Falls Goal: Patient will remain free of falls Description: Assess and monitor vitals signs, neurological status including level of consciousness and orientation. Reassess fall risk per hospital policy. Ensure arm band on, uncluttered walking paths in room, adequate room lighting, call light and overbed table within reach, bed in low position, wheels locked, side rails up per policy, and non-skid footwear provided. Outcome: Progressing Problem: Compromised Skin Integrity Goal: LTG - Patient will be free from infection Outcome: Progressing Goal: LTG - Patient will maintain/improve skin integrity through proper skin care techniques Outcome: Progressing Goal: LTG - Patient will demonstrate appropriate pressure relief techniques Outcome: Progressing Goal: LTG - Patient will demonstrate appropriate skin care techniques Outcome: Progressing Goal: LTG - Patient will be free from infection Outcome: Progressing Goal: STG - Patient demonstrates skin care/treatment/dressing change Outcome: Progressing Goal: STG - Patient will maintain good skin integrity Outcome: Progressing Goal: STG - Patient exhibits signs of wound healing. Outcome: Progressing Goal: STG - Patient demonstrates pressure reduction techniques Outcome: Progressing Goal: STG - Patient demonstrates preventative skin care measures Outcome: Progressing * Nursing Progress Notes - Alma Dominguez RN - 07/14/2024 1:22 PM EDT Pt goes from lethargic to screaming, RN asked pt if she is hurting but pt will not respond to questions, pt does not follow commands, pt is rolling back and forth in bed when awake, pt will not take PO medications, RN attempted while family in the room to give pt PO medications and pt spits them out. Family at bedside requesting IV pain medication for pt, RN notified Dr. Jose and orders received * Nursing Progress Notes - Teto Bravo RN - 07/14/2024 7:16 AM EDT During the timeframe of [id number] patient care was provided through a virtually integrated care team model. Any physical assessments or hands-on patient care documented by this Virtual RN were completed with a clinician at the bedside and the virtual RN acting as a scribe/mentor. * Nursing Progress Notes - Hal Randolph RN - 07/14/2024 6:00 AM EDT Patient has spiked a temp of 100.8. She did receive 2 units PRBCs earlier today on day shift. She'spretty lethargic but responsive which is how she has been I am told. Not trying to swallow her meds. Dr Gallardo aware of these findings. Tylenol supp ordered per . Pt more alert throughout rest of shift * Plan of Care - Noemi Fontanez RN - 07/13/2024 7:43 PM EDT During the timeframe of 5988-9110 patient care was provided through a virtually integrated care team model. Any physical assessments or hands-on patient care documented by this Virtual RN were completed with a clinician at the bedside and the virtual RN acting as a scribe/mentor. Problem: Pain Goal: Patient's pain/discomfort is manageable Description: Assess and monitor patient's pain using appropriate pain scale. Collaborate with interdisciplinary team and initiate plan and interventions as ordered. Re-assess patient's pain level after pain management intervention. Outcome: Progressing Problem: Safety Goal: Patient will be injury free during hospitalization Description: Assess and monitor vitals signs, neurological status including level of consciousness and orientation. Assess patient's risk for falls and implement fall prevention plan of care and interventions per hospital policy. Ensure arm band on, uncluttered walking paths in room, adequate room lighting, call light and overbed table within reach, bed in low position, wheels locked, side rails up per policy, and non-skid footwear provided. Outcome: Progressing Problem: Potential for Developing a Blood Clot Goal: Tissue perfusion is adequate - venous Description: Assess and monitor skin color and temperature, skin integrity, pulses, capillary refill, edema, pain in extremities, Homans' sign, labs (D- dimer), and diagnostic tests (ultrasound, CT scan, VQ scan). Monitor for signs and symptoms of deep vein thrombosis (swelling of calf/thigh, redness, pain, tenderness). Monitor for signs and symptoms of pulmonary embolism (dyspnea, tachypnea, tachycardia). Collaborate with interdisciplinary team and initiate plans and interventions as needed Outcome: Progressing Problem: Daily Care Goal: Daily care needs are met Description: Assess and monitor ability to perform self care and identify potential discharge needs. Outcome: Progressing Problem: Potential for Infection Goal: Remains infection free Description: Assess and monitor vital signs, skin (color, moisture, integrity, turgor), respiratorystatus, urinary and gastrointestinal status, and labs (WBC, cultures). Administer antibiotics and antipyretics as ordered. Ensure aseptic care of all intravenous lines, invasive tubes/drains and wounds. Monitor for signs and symptoms of infection (redness, warmth, discharge, increased body temperature). Wash hands properly before and after each patient care activity. Follow isolation guidelines per hospital protocol/policy. Collaborate with interdisciplinary team and initiate plan and interventions as ordered. Outcome: Progressing Problem: Psychosocial Needs Goal: Demonstrates ability to cope with hospitalization/illness Description: Assess and monitor patients ability to cope with his/her illness. Outcome: Progressing Goal: Collaborate with patient/family/caregiver to identify patient specific goals for this hospitalization Outcome: Progressing Problem: Anxiety Goal: Anxiety is at manageable level Description: Assess and monitor patient's anxiety level. Monitor for signs and symptoms of anxiety both physical and emotional (heart palpitations, chest pain, shortness of breath, headaches, nausea,feeling jumpy, restlessness, irritable, apprehensive). Collaborate with interdisciplinary team and initiate plan and interventions as ordered. Outcome: Progressing Problem: Inadequate Coping Goal: Demonstrates ability to cope effectively Description: Patient is able to verbalize feelings related to emotional state. Outcome: Progressing Goal: Verbalizes adaptive coping mechanisms Description: Able to verbalize adaptive coping mechanisms such as physical activity, distraction, and deep breathing exercises. Outcome: Progressing Goal: Verbalizes personal strengths Description: Spend time with the patient using empathy and active listening skills. Outcome: Progressing Problem: Discharge Barriers Goal: Patient's discharge needs are met Description: Collaborate with interdisciplinary team and initiate plans and interventions as needed. Outcome: Progressing Problem: NEUROSENSORY Goal: Achieves maximal functionality and self care Outcome: Progressing Problem: GENITOURINARY Goal: Absence of urinary retention Outcome: Progressing Goal: Urinary catheter remains patent Outcome: Progressing Problem: METABOLIC/FLUID AND ELECTROLYTES Goal: Electrolytes maintained within normal limits Outcome: Progressing Problem: SKIN/TISSUE INTEGRITY Goal: Skin integrity intact Outcome: Progressing Goal: Oral mucous membranes intact Outcome: Progressing Problem: HEMATOLOGIC Goal: Maintains hematologic stability Outcome: Progressing Problem: KNOWLEDGE DEFICIT Goal: Pt/family/caregiver demonstrates understanding of disease process, treatment plan, medications and/or discharge instructions Outcome: Progressing * Nursing Progress Notes - Cassie Nice RN - 07/13/2024 8:00 AM EDT During the timeframe of [id number] patient care was provided through a virtually integrated care team model. Any physical assessments or hands-on patient care documented by this Virtual RN were completed with a clinician at the bedside and the virtual RN acting as a scribe/mentor. * Plan of Care - Nicole Guevara RN - 07/13/2024 4:13 AM EDT Problem: Pain Goal: Patient's pain/discomfort is manageable Description: Assess and monitor patient's pain using appropriate pain scale. Collaborate with interdisciplinary team and initiate plan and interventions as ordered. Re-assess patient's pain level after pain management intervention. Outcome: Progressing Problem: Anxiety Goal: Anxiety is at manageable level Description: Assess and monitor patient's anxiety level. Monitor for signs and symptoms of anxiety both physical and emotional (heart palpitations, chest pain, shortness of breath, headaches, nausea,feeling jumpy, restlessness, irritable, apprehensive). Collaborate with interdisciplinary team and initiate plan and interventions as ordered. Outcome: Progressing * Plan of Care - Wendie Llamas RN - 07/12/2024 9:53 PM EDT Problem: Pain Goal: Patient's pain/discomfort is manageable Description: Assess and monitor patient's pain using appropriate pain scale. Collaborate with interdisciplinary team and initiate plan and interventions as ordered. Re-assess patient's pain level after pain management intervention. Outcome: Progressing Problem: Safety Goal: Patient will be injury free during hospitalization Description: Assess and monitor vitals signs, neurological status including level of consciousness and orientation. Assess patient's risk for falls and implement fall prevention plan of care and interventions per hospital policy. Ensure arm band on, uncluttered walking paths in room, adequate room lighting, call light and overbed table within reach, bed in low position, wheels locked, side rails up per policy, and non-skid footwear provided. Outcome: Progressing Problem: Potential for Developing a Blood Clot Goal: Tissue perfusion is adequate - venous Description: Assess and monitor skin color and temperature, skin integrity, pulses, capillary refill, edema, pain in extremities, Homans' sign, labs (D- dimer), and diagnostic tests (ultrasound, CT scan, VQ scan). Monitor for signs and symptoms of deep vein thrombosis (swelling of calf/thigh, redness, pain, tenderness). Monitor for signs and symptoms of pulmonary embolism (dyspnea, tachypnea, tachycardia). Collaborate with interdisciplinary team and initiate plans and interventions as needed Outcome: Progressing Problem: Daily Care Goal: Daily care needs are met Description: Assess and monitor ability to perform self care and identify potential discharge needs. Outcome: Progressing Problem: Potential for Infection Goal: Remains infection free Description: Assess and monitor vital signs, skin (color, moisture, integrity, turgor), respiratorystatus, urinary and gastrointestinal status, and labs (WBC, cultures). Administer antibiotics and antipyretics as ordered. Ensure aseptic care of all intravenous lines, invasive tubes/drains and wounds. Monitor for signs and symptoms of infection (redness, warmth, discharge, increased body temperature). Wash hands properly before and after each patient care activity. Follow isolation guidelines per hospital protocol/policy. Collaborate with interdisciplinary team and initiate plan and interventions as ordered. Outcome: Progressing Problem: Psychosocial Needs Goal: Demonstrates ability to cope with hospitalization/illness Description: Assess and monitor patients ability to cope with his/her illness. Outcome: Progressing Goal: Collaborate with patient/family/caregiver to identify patient specific goals for this hospitalization Outcome: Progressing Flowsheets (Taken 07/12/20242146) Cultural Requests During Hospitalization: No Spiritual Requests During Hospitalization: No Problem: Anxiety Goal: Anxiety is at manageable level Description: Assess and monitor patient's anxiety level. Monitor for signs and symptoms of anxiety both physical and emotional (heart palpitations, chest pain, shortness of breath, headaches, nausea,feeling jumpy, restlessness, irritable, apprehensive). Collaborate with interdisciplinary team and initiate plan and interventions as ordered. Outcome: Progressing Problem: Inadequate Coping Goal: Demonstrates ability to cope effectively Description: Patient is able to verbalize feelings related to emotional state. Outcome: Progressing Goal: Verbalizes adaptive coping mechanisms Description: Able to verbalize adaptive coping mechanisms such as physical activity, distraction, and deep breathing exercises. Outcome: Progressing Goal: Verbalizes personal strengths Description: Spend time with the patient using empathy and active listening skills. Outcome: Progressing Problem: Discharge Barriers Goal: Patient's discharge needs are met Description: Collaborate with interdisciplinary team and initiate plans and interventions as needed. Outcome: Progressing Problem: NEUROSENSORY Goal: Achieves maximal functionality and self care Outcome: Progressing Problem: GENITOURINARY Goal: Absence of urinary retention Outcome: Progressing Goal: Urinary catheter remains patent Outcome: Progressing Problem: METABOLIC/FLUID AND ELECTROLYTES Goal: Electrolytes maintained within normal limits Outcome: Progressing Problem: SKIN/TISSUE INTEGRITY Goal: Skin integrity intact Outcome: Progressing Goal: Oral mucous membranes intact Outcome: Progressing Problem: HEMATOLOGIC Goal: Maintains hematologic stability Outcome: Progressing Problem: KNOWLEDGE DEFICIT Goal: Pt/family/caregiver demonstrates understanding of disease process, treatment plan, medications and/or discharge instructions Outcome: Progressing documented in this encounter Plan of Treatment Not on file documented as of this encounter Procedures Procedure Name Priority Date/Time Associated Diagnosis [...] GLUCOSE POC Routine 07/18/2024 6:15 AM EDT CBC HEMOGRAM (SJ-BKR) Routine 07/18/2024 5:13 AM EDT TSH Routine 07/18/2024 5:13 AM EDT AMMONIA Routine 07/18/2024 5:13 AM EDT BASIC METABOLIC [...] GLUCOSE POC Routine 07/17/2024 8:26 AM EDT [facility] CBC SCAN Routine 07/17/2024 8:06 AM EDT CBC W/ AUTO DIFF Routine 07/17/2024 8:06 AM EDT COMPREHENSIVE METABOLIC PANEL Routine 07/17/2024 8:06 AM EDT NOVA GLUCOSE POC Routine 07/17/2024 6:00 AM EDT NOVA GLUCOSE POC Routine 07/17/2024 12:0 2 AM EDT FS_MODEL_IP_ECG 12-LEAD Routine 07/16/2024 6:04 PM EDT POTASSIUM Routine 07/16/2024 5:40 PM EDT NOVA GLUCOSE POC Routine 07/16/2024 4:03 PM EDT FS_MODEL_IP_ECG 12-LEAD STAT 07/16/2024 2:52 PM EDT NOVA GLUCOSE POC Routine 07/16/2024 1:00 PM EDT CBC HEMOGRAM (SJ-BKR) Routine 07/16/2024 6:54 AM EDT MAGNESIUM Add-On 07/16/2024 6:54 AM EDT AMMONIA Routine 07/16/2024 6:54 AM EDT BASIC METABOLIC PANEL Routine 07/16/2024 6:54 AM EDT NOVA GLUCOSE POC Routine 07/16/2024 5:15 AM EDT XR CHEST AP PORTABLE STAT 07/16/2024 3:32 AM EDT NOVA GLUCOSE POC Routine 07/15/2024 11:5 1 PM EDT NOVA GLUCOSE POC Routine 07/15/2024 6:20 PM EDT MAGNESIUM STAT 07/15/2024 2:39 PM EDT HEPATIC FUNCTION PANEL Add-On 07/15/2024 2:39 PM EDT FS_MODEL_IP_ECG 12-LEAD Routine 07/15/2024 1:44 PM EDT XR ABDOMEN/KUB 1 VIEW PORTABLE STAT 07/15/2024 12:00 PM EDT NOVA GLUCOSE POC Routine 07/15/2024 11:5 2 AM EDT CBC HEMOGRAM (SJ-BKR) Routine 07/15/2024 6:13 AM EDT PHOSPHORUS Add-On 07/15/2024 6:13 AM EDT MAGNESIUM Add-On 07/15/2024 6:13 AM EDT AMMONIA Routine 07/15/2024 6:13 AM EDT BASIC METABOLIC PANEL Routine 07/15/2024 6:13 AM EDT US LIVER Routine 07/14/2024 4:35 PM EDT BLOOD GAS, ARTERIAL STAT 07/14/2024 8 :15 AM EDT BASIC METABOLIC PANEL Routine 07/14/2024 6:20 AM EDT CBC HEMOGRAM (SJ-BKR) Routine 07/14/2024 6:19 AM EDT AMMONIA Routine 07/14/2024 6:19 AM EDT HAPTOGLOBIN(SENDOUT) Routine 07/13/2024 7:43 PM EDT HEMOGLOBIN AND HEMATOCRIT Routine 07/13/2024 7:43 PM EDT FS_MODEL_IP_TRANSFUSE RED BLOOD CELLS Routine 07/13/2024 12:38 PM EDT FS_MODEL_IP_TRANSFUSE RED BLOOD CELLS Routine 07/13/2024 8:26 AM EDT FS_MODEL_IP_PREPARE RBC Routine 07/13/2024 6:53 AM EDT CALCIUM, IONIZED STAT 07/13/2024 6:37 AM EDT CBC HEMOGRAM (SJ-BKR) STAT 07/13/2024 6:08 AM EDT IRON AND TIBC Add-On 07/13/2024 6:08 AM EDT LACTATE DEHYDROGENASE (LDH) Add-On 07/13/2024 6:08 AM EDT FOLATE, SERUM Add-On 07/13/2024 6:08 AM EDT FERRITIN Add-On 07/13/2024 6:08 AM EDT COMPREHENSIVE METABOLIC PANEL STAT 07/13/2024 6:08 AM EDT AMMONIA STAT 07/13/2024 6:02 AM EDT URINE DRUG SCREEN STAT 07/13/2024 5:4 1 AM EDT FS_MODEL_IP_TRANSFUSE RED BLOOD CELLS Routine 07/13/2024 1:25 AM EDT URINALYSIS, REFLEX MICROSCOPIC AND CULTURE IF INDICATED STAT 07/12/2024 7:47 PM EDT URINALYSIS MICROSCOPIC STAT 07/12/2024 7:47 PM EDT FS_MODEL_IP_TRANSFUSE RED BLOOD CELLS Routine 07/12/2024 7:34 PM EDT ABO/RH - ABORHTUBE ([place] BKR) Routine 07/12/2024 5:22 PM EDT DIRECT LENA/BAUDILIO ([place] BKR) Routine 07/12/2024 5:22 PM EDT ANTIBODY SCREEN ([place] BKR) Routine 07/12/2024 5:22 PM EDT HEMOGLOBIN AND HEMATOCRIT STAT 07/12/2024 5:[address] BRAIN WITHOUT IV CONTRAST STAT 07/12/2024 5:[address] CHEST ABDOMEN PELVIS W CONTRAST STAT 07/12/2024 5:07 PM EDT FS_MODEL_IP_PREPARE RBC STAT 07/12/2024 5:01 PM EDT SARS-COV2 PCR (COVID 19) STAT 07/12/2024 4:47 PM EDT [facility] PERIPHERAL SMEAR PATH REVIEW Routine 07/12/2024 4:46 PM EDT CBC W/ AUTO DIFF STAT 07/12/2024 4:46 PM EDT MANUAL DIFFERENTIAL Routine 07/12/2024 4 :46 PM EDT LACTIC ACID WITH REFLEX STAT 07/12/2024 4:46 PM EDT PROCALCITONIN Add-On 07/12/2024 4:46 PM EDT PHOSPHORUS Add-On 07/12/2024 4:46 PM EDT MAGNESIUM Add-On 07/12/2024 4:46 PM EDT LIPASE STAT 07/12/2024 4:46 PM EDT VITAMIN B12 Add-On 07/12/2024 4:46 PM EDT COMPREHENSIVE METABOLIC PANEL STAT 07/12/2024 4:46 PM EDT XR CHEST AP PORTABLE STAT 07/12/2024 4:27 PM EDT BLOOD CULTURE STAT 07/12/2024 4:20 PM EDT BLOOD CULTURE STAT 07/12/2024 4:20 PM EDT FS_MODEL_IP_ECG 12-LEAD Routine 07/12/2024 4:05 PM EDT NOVA GLUCOSE POC Routine 07/12/2024 3:59 PM EDT EKG-SCANNED 07/12/2024 EKG-SCANNED 07/12/2024 documented in this encounter Results * (ABNORMAL) CBC - Hemogram (SJ-BKR) (07/20/2024 8:17 AM EDT) [facility] WBC 5.5 4.0 - 10.0 K/??L 07/20/2024 8:53 AM EDT [facility] RBC 2.87(L) 3.93 - 5.22 M/??L 07/20/2024 8:53 AM EDT [facility] Hemoglobin 8.9(L) 11.2 - 15.7 GM/DL 07/20/2024 8:53 AM EDT [facility] Hematocrit 30.0(L) 34.1 - 44.9 % 07/20/2024 8:53 AM EDT [facility] MCV 105(H) 79 - 95 fL 07/20/2024 8:53 AM EDT [facility] MCH 31.0 25.6 - 32.2 pg 07/20/2024 8:53 AM EDT [facility] MCHC 29.7(L) 32.2 - 35.5 GM/DL 07/20/2024 8:53 AM EDT [facility] RDW 16.6(H) 11.7 - 14.4 % 07/20/2024 8:53 AM EDT [facility] Platelets 40(LL) 140 - 375 K/CU MM 07/20/2024 8:53 AM EDT [facility] MPV 13.5(H) 9.4 - 12.3 fL 07/20/2024 8:53 AM EDT [facility] Blood Venipuncture / Unknown 07/20/2024 8:17 AM EDT 07/20/2024 8:35 AM EDT us Chandra Jose MD LAB BLOOD ORDERABLES Final Resul t [facility] [address] [phone] * (ABNORMAL) Potassium (07/19/2024 9:27 AM EDT) Potassium 3.4(L) 3.5 - 5.1 meq/L 07/19/2024 9:58 AM EDT [facility] Blood Venipuncture / Unknown 07/19/2024 9:27 AM EDT 07/19/2024 9:32 AM EDT us Chandra Jose MD LAB BLOOD ORDERABLES Final Resul t [facility] [address] [place] [address], [facility] [phone] * (ABNORMAL) Basic Metabolic Panel (07/19/2024 9:27 AM EDT) Sodium 140 136 - 146 meq/L 07/19/2024 10:02 AM EDT [facility] Potassium 3.4(L) 3.5 - 5.1 meq/L 07/19/2024 10:02 AM EDT [facility] Chloride 110 102 - 112 meq/L 07/19/2024 10:02 AM EDT [facility] CO2 20(L) 21 - 32 meq/L 07/19/2024 10:02 AM EDT [facility] Anion Gap 13 9 - 20 07/19/2024 10:02 AM EDT [facility] BUN 11 7 - 22 mg/dL 07/19/2024 10:02 AM EDT [facility] Creatinine 0.47(L) 0.55 - 1.02 mg/dL 07/19/2024 10:02 AM EDT [facility] BUN/Creatinine 23(H) 8 - 20 07/19/2024 10:02 AM EDT [facility] Glucose 118(H) 74 - 106 mg/dL 07/19/2024 10:02 AM EDT [facility] Calcium 7.3(L) 8.4 - 10.1 mg/dL 07/19/2024 10:02 AM EDT [facility] Osmolality Calc 279.9 10:02 AM EDT [facility] eGFR (mL/min/1.73m2) >60 >=60 mL/min/1.7 3m2 07/19/2024 10:02 AM EDT [facility] Comment:eGFR of <60 suggests chronic kidney disease if found over a 3 month period of time. eGFR <15 indicates renal failure. Blood Venipuncture / Unknown 07/19/2024 9:27 AM EDT 07/19/2024 9:32 AM EDT us Chandra Jose MD LAB BLOOD ORDERABLES Final Resul t Performing Organization Address [facility]/ZIP Co de Phone Number [facility] [address] [phone] * (ABNORMAL) Glucose, Nova Meter (07/19/2024 7:29 AM EDT) POC-GLUCOSE 111(H) 70 - 110 mg/dL 07/19/2024 7:31 AM EDT [facility] Comment:In the event of poor peripheral blood flow, venous or arterial blood should be used due to the potential of erroneous results. [employer] Resource [employer] Consultant [phone] 07/19/2024 7:31 AM EDT [facility] Blood WHOLE BLOOD / Unknown 07/19/2024 7:29 AM EDT 07/19/2024 7:31 AM EDT Narrative [facility] - 07/19/2024 7:31 AM EDT [employer] Consultant ID is - [id number] us Chandra Jose MD POINT OF CARE TEST ORDERABLES Fi nal Result Performing Organization Address [facility]/ZIP Co de Phone Number [facility] [address] [phone] * (ABNORMAL) Glucose, Nova Meter (07/18/2024 9:14 PM EDT) POC-GLUCOSE 114(H) 70 - 110 mg/dL 07/18/2024 9:16 PM EDT [facility] Comment: In the event of poor peripheral blood flow, venous or arterial blood should be used due to the potential of erroneous results. Protocols Followed [employer] Consultant [id number] 07/18/2024 9:16 PM EDT [facility] Blood WHOLE BLOOD / Unknown 07/18/2024 9:14 PM EDT 07/18/2024 9:16 PM EDT Narrative [facility] - 07/18/2024 9:16 PM EDT [employer] Consultant ID is - [id number] Chandra Jose MD POINT OF CARE TEST ORDERABLES Fi nal Result Performing Organization Address [facility] de Phone Number [facility] [address] [place] [address], [facility] [phone] * (ABNORMAL) Glucose, Nova Meter (07/18/2024 4:44 PM EDT) POC-GLUCOSE 122(H) 70 - 110 mg/dL 07/18/2024 4:48 PM EDT [facility] Comment: In the event of poor peripheral blood flow, venous or arterial blood should be used due to the potential of erroneous results. Notified Nurse RBV [employer] Consultant [id number] 07/18/2024 4:48 PM EDT [facility] Blood WHOLE BLOOD / Unknown 07/18/2024 4:44 PM EDT 07/18/2024 4:48 PM EDT Narrative [facility] - 07/18/2024 4:48 PM EDT [employer] Consultant ID is - [id number] Chandra Jose MD POINT OF CARE TEST ORDERABLES Fi nal Result Performing Organization Address [facility] de Phone Number [facility] [address] [phone] * CT BIOPSY SITE - BONE MARROW [...] and thrombocytopenia. ATTENDING PHYSICIAN: Dr. Garrison PHYSICIAN OPERATING ROOM TECH: Serge Castillo PA-C PROCEDURE: This study was [...] and thrombocytopenia. ATTENDING PHYSICIAN: Dr. Garrison PHYSICIAN OPERATING ROOM TECH: Serge Castillo PA-C PROCEDURE: This study was [...] Cristi Garrison. Transcribed by Serge Castillo PA-C. Ken Urrutia MD IM CT ORDERABLES Final Result * [facility] BONE MARROW SMEAR, ASPIRATION, AND STAIN (07/18/2024 12:42 PM EDT) AP RESULT See Note: [facility] Comment: [facility] [address] ?[place], [place] ??[address] or [phone] Forrest Rosado M.D., [employer]ered We[employer] Manager PATIENT NAME ?LABORATORY NO. [id number] ??ASHER DANIEL. ? [id number] [facility] ?AGE ?SEX ?? SSN ? CLIENT REF # [id number] ? 1960 F ? [id number] [address] [place] [address] ?REQUESTING M.D. ?? ATTENDING M.D.. ?? COPY TO.. KEN URRUTIA DATE COLLECTED ?DATE RECEIVED ? DATE REPORTED [...] rendered by Antonia Perkins M.D., MPH at [employer], [address] [facility], [place] [address]. DIAGNOSIS: PERIPHERAL SMEAR , BONE MARROW ASPIRATION [...] pending. ??These findings were communicated to Dr. Urrutia by Dr. Perkins on 07/19/2024. CLINICAL HISTORY: [...] CD38, CD45, CD56, CD57, CD117, CD123, HLA-DR, Sea Bright, and Lambda. These tests use analyte specific [...] rendered by Antonia Perkins M.D., MPH at [employer], [facility], [address] [place] [address]. GROSS DESCRIPTION: A. ?? Received 1 peripheral [...] Antonia Perkins M.D., MPH CPT CODES: ? 97765, 2FLP, 6FLP, 37996, [id number], 43466, 12003 Bone Marrow BONE MARROW STRUCTURE / Unknown 07/18/2024 12:42 PM EDT us Ken Urrutia MD PATHOLOGY/CYTOLOGY ORDERABLES Edited Result - Final [facility] [address] [place] [address] * (ABNORMAL) Glucose, Nova Meter (07/18/2024 12:15 PM EDT) POC-GLUCOSE 125(H) 70 - 110 mg/dL 07/18/2024 12:16 PM EDT [facility] Comment: In the event of poor peripheral blood flow, venous or arterial blood should be used due to the potential of erroneous results. Notified Nurse RBV [employer] Consultant [id number] 07/18/2024 12:16 PM EDT [facility] Blood WHOLE BLOOD / Unknown 07/18/2024 12:15 PM EDT 07/18/2024 12:16 PM EDT Narrative [facility] - 07/18/2024 12:16 PM EDT [employer] Consultant ID is - [id number] Chandra Jose MD POINT OF CARE TEST ORDERABLES Fi nal Result Performing Organization Address City/[facility] Co de Phone Number [facility] [address] [phone] * (ABNORMAL) Glucose, Nova Meter (07/18/2024 6:15 AM EDT) POC-GLUCOSE 124(H) 70 - 110 mg/dL 07/18/2024 6:17 AM EDT [facility] Comment: In the event of poor peripheral blood flow, venous or arterial blood should be used due to the potential of erroneous results. Notified MD RBV Notified Nurse RBV [employer] Consultant [phone] 07/18/2024 6:17 AM EDT [facility] Blood WHOLE BLOOD / Unknown 07/18/2024 6:15 AM EDT 07/18/2024 6:17 AM EDT Narrative [facility] - 07/18/2024 6:17 AM EDT [employer] Consultant ID is - [id number] Chandra Jose MD POINT OF CARE TEST ORDERABLES Fi nal Result Performing Organization Address [facility] de Phone Number [facility] [address] [phone] * (ABNORMAL) Ammonia (07/18/2024 5:13 AM EDT) Pathologist [facility] Ammonia 47(H) 11 - 32 ??mol/L 07/18/2024 5:47 AM EDT [facility] Comment:[employer] has become aware of sulfasalazine and sulfapyridine [...] ORDERABLES Final Resul t Performing Organization Address [facility]/ZIP Co de Phone Number [facility] [address] [phone] * (ABNORMAL) TSH (07/18/2024 5:13 AM EDT) TSH 0.230(L) 0.358 - 3.740 uIU/mL 07/18/2024 6:02 AM EDT [facility] Blood Venipuncture / Unknown 07/18/2024 5:13 AM EDT 07/18/2024 5:28 AM EDT Narrative [facility] - 07/18/2024 6:02 AM EDT Biotin supplements can cause clinically significant incorrect lab results. The FDA has seen an increase in the number of reported adverse events related to biotin interference with lab tests. us Chandra Jose MD LAB BLOOD ORDERABLES Final Resul t Performing Organization Address [facility] Co de Phone Number [facility] [address] [phone] * (ABNORMAL) CBC - Hemogram (SJ-BKR) (07/18/2024 5:13 AM EDT) WBC 3.9(L) 4.0 - 10.0 K/??L 07/18/2024 5:45 AM EDT [facility] RBC 2.40(L) 3.93 - 5.22 M/??L 07/18/2024 5:45 AM EDT [facility] Hemoglobin 7.5(L) 11.2 - 15.7 GM/DL 07/18/2024 5:45 AM EDT [facility] Hematocrit 23.4(L) 34.1 - 44.9 % 07/18/2024 5:45 AM EDT [facility] MCV 98(H) 79 - 95 fL 07/18/2024 5:45 AM EDT [facility] MCH 31.3 25.6 - 32.2 pg 07/18/2024 5:45 AM EDT [facility] MCHC 32.1(L) 32.2 - 35.5 GM/DL 07/18/2024 5:45 AM EDT [facility] RDW 17.5(H) 11.7 - 14.4 % 07/18/2024 5:45 AM EDT [facility] Platelets 30(LL) 140 - 375 K/CU MM 07/18/2024 5:45 AM EDT [facility] MPV 12.8(H) 9.4 - 12.3 fL 07/18/2024 5:45 AM EDT [facility] Blood Venipuncture / Unknown 07/18/2024 5:13 AM EDT 07/18/2024 5:30 AM EDT us Chandra Jose MD LAB BLOOD ORDERABLES Final Resul t Performing Organization Address City/State/[facility] Co de Phone Number [facility] [address] [phone] * (ABNORMAL) Basic Metabolic Panel (07/18/2024 5:13 AM EDT) Sodium 146 136 - 146 meq/L 07/18/2024 6:02 AM EDT [facility] Potassium 3.0(L) 3.5 - 5.1 meq/L 07/18/2024 6:02 AM EDT [facility] Chloride 117(H) 102 - 112 meq/L 07/18/2024 6:02 AM EDT [facility] CO2 20(L) 21 - 32 meq/L 07/18/2024 6:02 AM EDT [facility] Anion Gap 12 9 - 20 07/18/2024 6:02 AM EDT [facility] BUN 17 7 - 22 mg/dL 07/18/2024 6:02 AM EDT [facility] Creatinine 0.52(L) 0.55 - 1.02 mg/dL 07/18/2024 6:02 AM EDT [facility] BUN/Creatinine 33(H) 8 - 20 07/18/2024 6:02 AM EDT [facility] Glucose 159(H) 74 - 106 mg/dL 07/18/2024 6:02 AM EDT [facility] Calcium 7.6(L) 8.4 - 10.1 mg/dL 07/18/2024 6:02 AM EDT [facility] Osmolality Calc 295.5 6:02 AM EDT [facility] eGFR (mL/min/1.73m2) >60 >=60 mL/min/1.7 3m2 07/18/2024 6:02 AM EDT [facility] Comment:eGFR of <60 suggests chronic kidney disease if found over a 3 month period of time. eGFR <15 indicates renal failure. Blood Venipuncture / Unknown 07/18/2024 5:13 AM EDT 07/18/2024 5:28 AM EDT us Chandra Jose MD LAB BLOOD ORDERABLES Final Resul t Performing Organization Address [facility] de Phone Number [facility] [address] [phone] * (ABNORMAL) Glucose, Nova Meter (07/18/2024 12:57 AM EDT) POC-GLUCOSE 130(H) 70 - 110 mg/dL 07/18/2024 12:58 AM EDT [facility] Comment: In the event of poor peripheral blood flow, venous or arterial blood should be used due to the potential of erroneous results. Notified RBV Notified Nurse RBV [employer] Consultant [phone] 07/18/2024 12:58 AM EDT [facility] Blood WHOLE BLOOD / Unknown 07/18/2024 12:57 AM EDT 07/18/2024 12:58 AM EDT Narrative [facility] - 07/18/2024 12:58 AM EDT [employer] Consultant ID is - [id number] us Chandra Jose MD POINT OF CARE TEST ORDERABLES Fi nal Result Performing Organization Address [facility]/State/ZIP Co de Phone Number [facility] [address] [phone] * (ABNORMAL) Glucose, Nova Meter (07/17/2024 6:08 PM EDT) POC-GLUCOSE 118(H) 70 - 110 mg/dL 07/17/2024 6:09 PM EDT [facility] Comment: In the event of poor peripheral blood flow, venous or arterial blood should be used due to the potential of erroneous results. Notified Nurse RBV [employer] Consultant [phone] 07/17/2024 6:09 PM EDT [facility] Blood WHOLE BLOOD / Unknown 07/17/2024 6:08 PM EDT 07/17/2024 6:09 PM EDT Narrative [facility] - 07/17/2024 6:09 PM EDT [employer] Consultant ID is - [id number] hCandra Jose MD POINT OF CARE TEST ORDERABLES Fi nal Result Performing Organization Address [facility]/State/ZIP Co de Phone Number [facility] [address] [phone] * ECHO COMPLETE (DOPPLER / COLOR) WO CONTRAST (07/17/2024 11:49 AM EDT) Anatomical Region Laterality Modality Heart Vascular Ultraso und 07/17/2024 10:4 7 AM EDT Narrative 07/17/2024 5:47 PM EDT TRANSTHORACIC ECHOCARDIOGRAPHY REPORT Demographics Patient Name: ? FREDY STERLING ?: ? 1960 ? [place] Medical Record ?[id number] ?Age: ? 64 year(s) Number: Corporate ID Number: ??[id number] ?Gender ? Female Imcu Specialist: ?Amina Fiore RD ?Height: ?70 inches Referring Physician: ??TREY VALDES ?Weight: ?216 pounds Interpreting ?REJI SOUSA MD ?BMI: ? 30.99 kg/m^2 Physician: Date of Service: ?07/17/2024 ?Blood ?132/67 mmHg ? Pressure: Room Number: ?5854 Type of Study: TTE procedure: ECHO COMPLETE [...] ?? E/A ratio: 1.01 m/s ? Volume [id number] ??LV length: 8.57 cm ml Volume semmwxjd59.64 ml LVOT diameter: 2.02 cm Mild left [...] Pleura No pericardial effusion. Procedure Note Reji Sousa MD - 07/17/2024 TRANSTHORACIC ECHOCARDIOGRAPHY REPORT Demographics Patient Name: FREDY STERLING : 1960 [place] Medical Record [id number] Age: 64 year(s) Number: Corporate ID Number: [id number] Gender Female Imcu Specialist: Amina Fiore DAVIS Height: 70 inches Referring Physician: TREY VALDES Weight: 216 pounds Interpreting REJI SOUSA MD BMI: 30.99 kg/m^2 Physician: Date of [...] 1.07 m/s E/A ratio: 1.01 m/s Volume songedcli671.66 LV length: 8.57 cm ml Volume ndqupymi08.64 ml LVOT diameter: 2.02 cm Mild left [...] CV ECHO ORDERABLES Final Result * (ABNORMAL) Glucose, Nova Meter (07/17/2024 11:44 AM EDT) POC-GLUCOSE 113(H) 70 - 110 mg/dL 07/17/2024 11:47 AM EDT [facility] Comment: In the event of poor peripheral blood flow, venous or arterial blood should be used due to the potential of erroneous results. Notified Nurse [facility] [employer] Consultant [phone] 07/17/2024 11:47 AM EDT [facility] Blood WHOLE BLOOD / Unknown 07/17/2024 11:44 AM EDT 07/17/2024 11:47 AM EDT Narrative [facility] - 07/17/2024 11:47 AM EDT [employer] Consultant ID is - [id number] Chandra Jose MD POINT OF CARE TEST ORDERABLES Fi nal Result [facility] [address] [phone] * Ammonia (07/17/2024 10:31 AM EDT) Pathologist [facility] Ammonia 28 11 - 32 ??mol/L 07/17/2024 11:22 AM EDT [facility] Comment:[employer] has become aware of sulfasalazine and sulfapyridine [...] of the drug. Blood Venipuncture / Unknown 07/17/2024 10:31 AM EDT 07/17/2024 10:42 AM EDT us Mara Rodney DIRECTOR [employer] LAB BLOOD ORDERABLES Fi nal Result Performing Organization Address [facility] [facility] Co de Phone Number [facility] [address] [phone] * (ABNORMAL) Glucose, Nova Meter (07/17/2024 8:26 AM EDT) Pathologist [facility] POC-GLUCOSE 120(H) 70 - 110 mg/dL 07/17/2024 8:28 AM EDT [facility] Comment: In the event of poor peripheral blood flow, venous or arterial blood should be used due to the potential of erroneous results. Notified Nurse [facility]BV [employer] Consultant [phone] 07/17/2024 8:28 AM EDT [facility] Blood WHOLE BLOOD / Unknown 07/17/2024 8:26 AM EDT 07/17/2024 8:28 AM EDT Narrative [facility] - 07/17/2024 8:28 AM EDT [employer] Consultant ID is - [id number] us Chandra Jose MD POINT OF CARE TEST ORDERABLES Fi nal Result [facility] [address] [phone] * (ABNORMAL) CBC Scan (07/17/2024 8:06 AM EDT) Platelet Estimate Decreased (A) Adequate 07/17/2024 9:01 AM EDT [facility] RBC Morphology abnormal( A) Normal 07/17/2024 9:01 AM EDT [facility] Anisocytosis 1+ 07/17/2024 9:01 AM EDT [facility] Polychromasia 1+ 07/17/2024 9:01 AM EDT [facility] Poikilocytes 1+ 07/17/2024 9:01 AM EDT [facility] Blood Venipuncture / Unknown 07/17/2024 8:06 AM EDT 07/17/2024 8:10 AM EDT us Jm Kimball MD LAB BLOOD ORDERABLES Final Res ult [facility] [address] [phone] * (ABNORMAL) Comprehensive metabolic panel (07/17/2024 8:06 AM EDT) Sodium 149(H) 136 - 146 meq/L 07/17/2024 8:38 AM EDT [facility] Potassium 3.1(L) 3.5 - 5.1 meq/L 07/17/2024 8:38 AM EDT [facility] Chloride 118(H) 102 - 112 meq/L 07/17/2024 8:38 AM EDT [facility] CO2 20(L) 21 - 32 meq/L 07/17/2024 8:38 AM EDT [facility] Calcium 7.8(L) 8.4 - 10.1 mg/dL 07/17/2024 8:38 AM EDT [facility] Glucose 135(H) 74 - 106 mg/dL 07/17/2024 8:38 AM [facility] BUN 19 7 - 22 mg/dL 07/17/2024 8:38 AM [facility] Creatinine 0.61 0.55 - 1.02 mg/dL 07/17/2024 8:38 AM [facility] BUN/Creatinine 31(H) 8 - 20 07/17/2024 8:38 AM [facility] Albumin 1.1(L) 3.4 - 5.0 g/dL 07/17/2024 8:38 AM [facility] Alkaline Phosphatase 45 27 - 136 U/L 07/17/2024 8:38 AM [facility] ALT 11(L) 13 - 56 U/L 07/17/2024 8:38 AM [facility] AST 38(H) 5 - 37 U/L 07/17/2024 8:38 AM [facility] Total Bilirubin 0.5 0.2 - 1.2 mg/dL 07/17/2024 8:38 AM [facility] Protein, Total 8.6(H) 6.4 - 8.2 gm/dL 07/17/2024 8:38 AM [facility] Anion Gap 14 9 - 20 07/17/2024 8:38 AM [facility] A/G Ratio 0.1(L) 1.1 - 2.5 07/17/2024 8:38 AM [facility] Globulin 7.5(H) 1.5 - 4.5 g/dL 07/17/2024 8:38 AM [facility] Osmolality Calc 300.4 8:38 AM [facility] eGFR (mL/min/1.73m2) >60 >=60 mL/min/1.7 3m2 07/17/2024 8:38 AM [facility] Comment:ESTIMATED GFR IS NOT ACCURATE CREATININE CLEARANCE IN PREDICTING GLOMERULAR FILTRATION RATE. ESTIMATED GFR IS NOT APPLICABLE FOR DIALYSIS PATIENTS. Blood Venipuncture / Unknown 07/17/2024 8:06 AM EDT 07/17/2024 8:10 AM EDT us Jm Kimball MD LAB BLOOD ORDERABLES Final Res ult [facility] [address] [place] [id number] [phone] * (ABNORMAL) CBC with automated diff (07/17/2024 8:06 AM EDT) WBC 5.2 4.0 - 10.0 K/??L 07/17/2024 8:22 AM EDT [facility] RBC 2.78(L) 3.93 - 5.22 M/??L 07/17/2024 8:22 AM EDT [facility] Hemoglobin 8.7(L) 11.2 - 15.7 GM/DL 07/17/2024 8:22 AM EDT [facility] Hematocrit 27.6(L) 34.1 - 44.9 % 07/17/2024 8:22 AM EDT [facility] MCV 99(H) 79 - 95 fL 07/17/2024 8:22 AM EDT [facility] MCH 31.3 25.6 - 32.2 pg 07/17/2024 8:22 AM EDT [facility] MCHC 31.5(L) 32.2 - 35.5 GM/DL 07/17/2024 8:22 AM EDT [facility] RDW 18.5(H) 11.7 - 14.4 % 07/17/2024 8:22 AM EDT [facility] Platelets 37(LL) 140 - 375 K/CU MM 07/17/2024 8:22 AM EDT [facility] MPV 12.8(H) 9.4 - 12.3 fL 07/17/2024 8:22 AM EDT [facility] Nucleated Red Blood Cell 3.1(H) 0 - 0.2 % 07/17/2024 8:22 AM EDT [facility] % Neutros 79(H) 34 - 71 % 07/17/2024 8:22 AM EDT [facility] % Lymphs 8(L) 19 - 52 % 07/17/2024 8:22 AM EDT [facility] % Monos 5 5 - 13 % 07/17/2024 8:22 AM EDT [facility] % Eos 0(L) 1 - 6 % 07/17/2024 8:22 AM EDT [facility] % Baso 0 0 - 1 % 07/17/2024 8:22 AM EDT [facility] NRBC Absolute 0.16(H) 0 - 0.012 K/ul 07/17/2024 8:22 AM EDT [facility] # Neutros 4.09 1.56 - 6.13 K/??L 07/17/2024 8:22 AM EDT [facility] # Lymphs 0.42(L) 1.18 - 3.74 K/??L 07/17/2024 8:22 AM EDT [facility] # Monos 0.24 0.24 - 0.86 K/??L 07/17/2024 8:22 AM EDT [facility] # Eos <0.03(L) 0.04 - 0.36 K/??L 07/17/2024 8:22 AM EDT [facility] # Baso <0.03 0.01 - 0.08 K/??L 07/17/2024 8:22 AM EDT [facility] Immature Granulocytes-Re lative 7.60(H) 0.01 - 0.43 % 07/17/2024 8:22 AM EDT [facility] # IG 0.39(H) 0.00 - 0.03 K/uL 07/17/2024 8:22 AM EDT [facility] Blood Venipuncture / Unknown 07/17/2024 8:06 AM EDT 07/17/2024 8:10 AM EDT [facility] - 07/17/2024 8:22 AM EDT When [...] Flag noted Atypical Lymph flag noted us mJ Kimball MD LAB BLOOD ORDERABLES Final Res ult [facility] [address] [phone] * (ABNORMAL) Glucose, Nova Meter (07/17/2024 6:00 AM EDT) POC-GLUCOSE 126(H) 70 - 110 mg/dL 07/17/2024 6:01 AM EDT [facility] Comment: In the event of poor peripheral blood flow, venous or arterial blood should be used due to the potential of erroneous results. Notified Nurse [facility]BV [employer] Consultant [phone] 07/17/2024 6:01 AM EDT [facility] Blood WHOLE BLOOD / Unknown 07/17/2024 6:00 AM EDT 07/17/2024 6:01 AM EDT [facility] - 07/17/2024 6:01 AM EDT [employer] Resource Planning Consultant ID is - [phone] us Chandra Jose MD POINT OF CARE TEST ORDERABLES Fi nal Result Performing Organization Address City/[facility]/ZIP Co de Phone Number [facility] [address] [phone] * (ABNORMAL) Glucose, Nova Meter (07/17/2024 12:02 AM EDT) POC-GLUCOSE 134(H) 70 - 110 mg/dL 07/17/2024 12:04 AM EDT [facility] Comment: In the event of poor peripheral blood flow, venous or arterial blood should be used due to the potential of erroneous results. Notified Nurse RBV [employer] Consultant [phone] 07/17/2024 12:04 AM EDT [facility] Blood WHOLE BLOOD / Unknown 07/17/2024 12:02 AM EDT 07/17/2024 12:04 AM EDT [facility] - 07/17/2024 12:04 AM EDT [employer] Resource Planning Consultant ID is - [id number] us Chandra Jose MD POINT OF CARE TEST ORDERABLES Fi nal Result Performing Organization Address [facility]/ZIP Co de Phone Number [facility] [address] [phone] * ECG 12 lead (07/16/2024 6:04 PM EDT) VENTRICULAR RATE EKG/MIN 117 BPM GE MUSE ATRIAL RATE (MCT) 117 BPM GE MUSE RI Interval 168 ms GE MUSE QRS-INTERVAL (MSEC) 78 ms GE MUSE QT Interval 414 ms GE MUSE QTC Interval 577 ms GE MUSE P [place] 78 degrees GE MUSE R AXIS (MCT) 39 degrees GE MUSE T Wave [place] 27 degrees GE MUSE [place] Diagnosis Atrial fibrillation with rapid ventricular response Prolonged QT Abnormal ECG When compared with ECG of 16-JUL-2024 14:52, No significant change was found Confirmed by Reji Sousa ([id number]), editor city [place] ([id number]) on 07/17/2024 6:23:03 PM GE MUSE 07/16/2024 6:04 PM EDT 07/17/2024 6:23 PM EDT us Chandra Jose MD ECG ORDERABLES Final Result Performing Organization Address [facility] Co de Phone Number GE M[facility] * (ABNORMAL) Potassium (07/16/2024 5:40 PM EDT) Potassium 3.1(L) 3.5 - 5.1 meq/L 07/16/2024 6:02 PM EDT [facility] Blood Venipuncture / Unknown 07/16/2024 5:40 PM EDT 07/16/2024 5:44 PM EDT us Jm Kimball MD LAB BLOOD ORDERABLES Final Res ult Performing Organization Address [facility]/ZIP Co de Phone Number [facility] [address] [phone] * (ABNORMAL) Glucose, Nova Meter (07/16/2024 4:03 PM EDT) [facility] POC-GLUCOSE 131(H) 70 - 110 mg/dL 07/16/2024 4:08 PM EDT [facility] Comment: In the event of poor peripheral blood flow, venous or arterial blood should be used due to the potential of erroneous results. Notified Nurse RBV [employer] Consultant [phone] 07/16/2024 4:08 PM EDT [facility] Blood WHOLE BLOOD / Unknown 07/16/2024 4:03 PM EDT 07/16/2024 4:08 PM EDT Narrative [facility] - 07/16/2024 4:08 PM EDT [employer] Planning Consultant ID is - [id number] Chandra Jose MD POINT OF CARE TEST ORDERABLES Fi nal Result [facility] [address] [phone] * ECG 12 lead (07/16/2024 2:52 PM EDT) [facility] VENTRICULAR RATE EKG/MIN 154 BPM GE MUSE ATRIAL RATE (MCT) 170 BPM GE MUSE QRS-INTERVAL (MSEC) 74 ms GE MUSE QT Interval 286 ms GE MUSE QTC Interval 458 ms GE MUSE R AXIS (MCT) 5 degrees GE MUSE T Wave [place] -109 degrees GE MUSE [place] Diagnosis Atrial fibrillation with rapid ventricular response Nonspecific ST and T wave abnormality Abnormal ECG When compared with ECG of 15-JUL-2024 13:44, Atrial fibrillation has replaced Sinus rhythm Vent. rate has increased BY ??57 BPM Confirmed by Reji Sousa ([id number]), editor city [place] ([id number]) on 07/17/2024 6:19:31 PM GE MUSE 07/16/2024 2:52 PM EDT 07/17/2024 6:19 PM EDT Chandra Jose MD ECG ORDERABLES Final Result Performing Organization Address City/[facility]/ZIP Co de Phone Number GE MUSE * (ABNORMAL) Glucose, Nova Meter (07/16/2024 1:00 PM EDT) [facility] POC-GLUCOSE 120(H) 70 - 110 mg/dL 07/16/2024 1:02 PM EDT [facility] Comment:In the event of poor peripheral blood flow, venous or arterial blood should be used due to the potential of erroneous results. [employer] Resource [employer] Consultant [id number] 07/16/2024 1:02 PM EDT [facility] Blood WHOLE BLOOD / Unknown 07/16/2024 1:00 PM EDT 07/16/2024 1:02 PM EDT Narrative [facility] - 07/16/2024 1:02 PM EDT [employer] Consultant ID is - [id number] Chandra Jose MD POINT OF CARE TEST ORDERABLES Fi nal Result Performing Organization Address [facility]/ZIP Co de Phone Number [facility] [address] [phone] * Magnesium (07/16/2024 6:54 AM EDT) Pathologist [facility] Magnesium 2.2 1.5 - 2.4 mg/dL 07/16/2024 3:37 PM EDT [facility] Blood Venipuncture / Unknown 07/16/2024 6:54 AM EDT 07/16/2024 7:57 AM EDT us Chandra Jose MD LAB BLOOD ORDERABLES Final Resul t Performing Organization Address [facility]/ZIP Co de Phone Number [facility] [address] [phone] * (ABNORMAL) Ammonia (07/16/2024 6:54 AM EDT) Pathologist [facility] Ammonia 61(H) 11 - 32 ??mol/L 07/16/2024 8:19 AM EDT [facility] Comment:[employer] has become aware of sulfasalazine and sulfapyridine [...] of the drug. Blood Venipuncture / Unknown 07/16/2024 6:54 AM EDT 07/16/2024 7:58 AM EDT us Chandra Jose MD LAB BLOOD ORDERABLES Final Resul t [facility] [address] [phone] * (ABNORMAL) CBC - Hemogram (SJ-BKR) (07/16/2024 6:54 AM EDT) WBC 6.1 4.0 - 10.0 K/??L 07/16/2024 8:12 AM EDT [facility] RBC 2.42(L) 3.93 - 5.22 M/??L 07/16/2024 8:12 AM EDT [facility] Hemoglobin 7.5(L) 11.2 - 15.7 GM/DL 07/16/2024 8:12 AM EDT [facility] Hematocrit 24.0(L) 34.1 - 44.9 % 07/16/2024 8:12 AM EDT [facility] MCV 99(H) 79 - 95 fL 07/16/2024 8:12 AM EDT [facility] MCH 31.0 25.6 - 32.2 pg 07/16/2024 8:12 AM EDT [facility] MCHC 31.3(L) 32.2 - 35.5 GM/DL 07/16/2024 8:12 AM EDT [facility] RDW 18.8(H) 11.7 - 14.4 % 07/16/2024 8:12 AM EDT [facility] Platelets 41(L) 140 - 375 K/CU MM 07/16/2024 8:12 AM EDT [facility] MPV 12.3 9.4 - 12.3 fL 07/16/2024 8:12 AM EDT [facility] Blood Venipuncture / Unknown 07/16/2024 6:54 AM EDT 07/16/2024 7:56 AM EDT us Chandra Jose MD LAB BLOOD ORDERABLES Final Resul t [facility] [address] [phone] * (ABNORMAL) Basic Metabolic Panel (07/16/2024 6:54 AM EDT) Sodium 149(H) 136 - 146 meq/L 07/16/2024 8:32 AM EDT [facility] Potassium 3.2(L) 3.5 - 5.1 meq/L 07/16/2024 8:32 AM EDT [facility] Chloride 119(H) 102 - 112 meq/L 07/16/2024 8:32 AM EDT [facility] CO2 20(L) 21 - 32 meq/L 07/16/2024 8:32 AM EDT [facility] Anion Gap 13 9 - 20 07/16/2024 8:32 AM EDT [facility] BUN 17 7 - 22 mg/dL 07/16/2024 8:32 AM EDT [facility] Creatinine 0.61 0.55 - 1.02 mg/dL 07/16/2024 8:32 AM EDT [facility] BUN/Creatinine 28(H) 8 - 20 07/16/2024 8:32 AM EDT [facility] Glucose 141(H) 74 - 106 mg/dL 07/16/2024 8:32 AM EDT [facility] Calcium 8.6 8.4 - 10.1 mg/dL 07/16/2024 8:32 AM EDT [facility] Osmolality Calc 300.0 8:32 AM EDT [facility] eGFR (mL/min/1.73m2) >60 >=60 mL/min/1.7 3m2 07/16/2024 8:32 AM EDT [facility] Comment:eGFR of <60 suggests chronic kidney disease if found over a 3 month period of time. eGFR <15 indicates renal failure. Blood Venipuncture / Unknown 07/16/2024 6:54 AM EDT 07/16/2024 7:57 AM EDT Chandra Jose MD LAB BLOOD ORDERABLES Final Resul t Performing Organization Address [facility] de Phone Number [facility] [address] [phone] * (ABNORMAL) Glucose, Nova Meter (07/16/2024 5:15 AM EDT) POC-GLUCOSE 124(H) 70 - 110 mg/dL 07/16/2024 5:16 AM EDT [facility] Comment: In the event of poor peripheral blood flow, venous or arterial blood should be used due to the potential of erroneous results. Notified Nurse RBV [employer] Consultant [phone] 07/16/2024 5:16 AM EDT [facility] Blood WHOLE BLOOD / Unknown 07/16/2024 5:15 AM EDT 07/16/2024 5:16 AM EDT Narrative [facility] - 07/16/2024 5:16 AM EDT [employer] Consultant ID is - [id number] us Chandra Jose MD POINT OF CARE TEST ORDERABLES Fi nal Result Performing Organization Address [facility] de Phone Number [facility] [address] [phone] * XR chest AP portable (07/16/2024 3:32 AM EDT) Anatomical Region Laterality Modality Chest X-Ray 07/16/2024 [...] Zac Ordoñez. Transcribed by Stacy Marte PA-C. us Nelly Gallardo MD IMG DIAGNOSTIC IMAGING ORDERABLE S Final Result * (ABNORMAL) Glucose, Nova Meter (07/15/2024 11:51 PM EDT) POC-GLUCOSE 148(H) 70 - 110 mg/dL 07/15/2024 11:52 PM EDT [facility] Comment: In the event of poor peripheral blood flow, venous or arterial blood should be used due to the potential of erroneous results. Notified Nurse RBV [employer] Consultant [phone] 07/15/2024 11:52 PM EDT [facility] Blood WHOLE BLOOD / Unknown 07/15/2024 11:51 PM EDT 07/15/2024 11:51 PM EDT Narrative [facility] - 07/15/2024 11:52 PM EDT [employer] Consultant ID is - [id number] us Chandra Jose MD POINT OF CARE TEST ORDERABLES Fi nal Result [facility] [address] [phone] * (ABNORMAL) Glucose, Nova Meter (07/15/2024 6:20 PM EDT) POC-GLUCOSE 158(H) 70 - 110 mg/dL 07/15/2024 6:21 PM EDT [facility] Comment: In the event of poor peripheral blood flow, venous or arterial blood should be used due to the potential of erroneous results. Protocols Followed [employer] Consultant [phone] 07/15/2024 6:21 PM EDT [facility] Blood WHOLE BLOOD / Unknown 07/15/2024 6:20 PM EDT 07/15/2024 6:21 PM EDT Narrative [facility] - 07/15/2024 6:21 PM EDT [employer] Consultant ID is - [phone] us Chandra Jose MD POINT OF CARE TEST ORDERABLES Fi nal Result [facility] [address] [phone] * (ABNORMAL) Hepatic function panel (07/15/2024 2:39 PM EDT) Protein, Total 9.1(H) 6.4 - 8.2 gm/dL 07/15/2024 6:42 PM EDT [facility] Albumin 1.1(L) 3.4 - 5.0 g/dL 07/15/2024 6:42 PM EDT [facility] Total Bilirubin 0.9 0.2 - 1.2 mg/dL 07/15/2024 6:42 PM EDT [facility] Bilirubin, Direct 0.6(H) 0.0 - 0.2 mg/dL 07/15/2024 6:42 PM EDT [facility] Alkaline Phosphatase 53 27 - 136 U/L 07/15/2024 6:42 PM EDT [facility] Globulin 8(H) 1.5 - 4.5 g/dL 07/15/2024 6:42 PM EDT [facility] A/G Ratio 0.1(L) 1.1 - 2.5 07/15/2024 6:42 PM EDT [facility] AST 26 5 - 37 U/L 07/15/2024 6:42 PM EDT [facility] Comment:[employer] has become aware of sulfasalazine and sulfapyridine [...] - 56 U/L 07/15/2024 6:42 PM EDT [facility] Comment:[employer] has become aware of sulfasalazine and sulfapyridine [...] MD LAB BLOOD ORDERABLES Final Re sult Performing Organization Address City/[facility]/ZIP Co de Phone Number [facility] [address] [phone] * Magnesium (07/15/2024 2:39 PM EDT) [facility] Magnesium 2.0 1.5 - 2.4 mg/dL 07/15/2024 3:14 PM EDT [facility] Blood Venipuncture / Unknown 07/15/2024 2:39 PM EDT 07/15/2024 2:55 PM EDT Chandra Jose MD LAB BLOOD ORDERABLES Final Resul t Performing Organization Address [facility]/State/ZIP Co de Phone Number [facility] [address] [phone] * ECG 12 lead (07/15/2024 1:44 PM EDT) [facility] VENTRICULAR RATE EKG/MIN 97 BPM GE MUSE ATRIAL RATE (MCT) 97 BPM GE MUSE RI Interval 164 ms GE MUSE QRS-INTERVAL (MSEC) 84 ms GE MUSE QT Interval 402 ms GE MUSE QTC Interval 510 ms GE MUSE P [place] 68 degrees GE MUSE R AXIS (MCT) 19 degrees GE MUSE T Wave [place] 34 degrees GE MUSE [place] Diagnosis Normal sinus rhythm Prolonged QT Abnormal ECG When compared with ECG of 12-JUL-2024 16:05, No significant change was found Confirmed by Joshua BRAVO, NEGRO ([id number]), editor city [place] ([id number]) on 07/16/2024 12:12:32 PM GE MUSE 07/15/2024 1:44 PM EDT 07/16/2024 12:12 PM EDT Chandra Jose MD ECG ORDERABLES Final Result GE MUSE * XR KUB PORTABLE (07/15/2024 12:00 PM [...] IMAGING ORD ERABLES Final Result * (ABNORMAL) Glucose, Nova Meter (07/15/2024 11:52 AM EDT) POC-GLUCOSE 183(H) 70 - 110 mg/dL 07/15/2024 11:53 AM EDT [facility] Comment: In the event of poor peripheral blood flow, venous or arterial blood should be used due to the potential of erroneous results. Notified Nurse RBV [employer] Consultant [phone] 07/15/2024 11:53 AM EDT [facility] Blood WHOLE BLOOD / Unknown 07/15/2024 11:52 AM EDT 07/15/2024 11:53 AM EDT Narrative [facility] - 07/15/2024 11:53 AM EDT [employer] Consultant ID is - [id number] us Chandra Jose MD POINT OF CARE TEST ORDERABLES Fi nal Result Performing Organization Address City/[facility] Co de Phone Number [facility] [address] [phone] * Magnesium (07/15/2024 6:13 AM EDT) [facility] Magnesium 2.2 1.5 - 2.4 mg/dL 07/15/2024 1:22 PM EDT [facility] Blood Venipuncture / Unknown 07/15/2024 6:13 AM EDT 07/15/2024 6:28 AM EDT us Chandra Jose MD LAB BLOOD ORDERABLES Final Resul t [facility] [address] [phone] * (ABNORMAL) Phosphorus (07/15/2024 6:13 AM EDT) Phosphorus 1.5(L) 2.5 - 4.9 mg/dL 07/15/2024 1:22 PM EDT [facility] Blood Venipuncture / Unknown 07/15/2024 6:13 AM EDT 07/15/2024 6:28 AM EDT us Chandra Jose MD LAB BLOOD ORDERABLES Final Resul t Performing Organization Address City/[facility]/ZIP Co de Phone Number [facility] [address] [phone] * (ABNORMAL) CBC - Hemogram (SJ-BKR) (07/15/2024 6:13 AM EDT) WBC 5.4 4.0 - 10.0 K/??L 07/15/2024 6:53 AM EDT [facility] RBC 2.41(L) 3.93 - 5.22 M/??L 07/15/2024 6:53 AM EDT [facility] Hemoglobin 7.6(L) 11.2 - 15.7 GM/DL 07/15/2024 6:53 AM EDT [facility] Hematocrit 24.3(L) 34.1 - 44.9 % 07/15/2024 6:53 AM EDT [facility] MCV 101(H) 79 - 95 fL 07/15/2024 6:53 AM EDT [facility] MCH 31.5 25.6 - 32.2 pg 07/15/2024 6:53 AM EDT [facility] MCHC 31.3(L) 32.2 - 35.5 GM/DL 07/15/2024 6:53 AM EDT [facility] RDW 19.0(H) 11.7 - 14.4 % 07/15/2024 6:53 AM EDT [facility] Platelets 51(L) 140 - 375 K/CU MM 07/15/2024 6:53 AM EDT [facility] MPV 11.8 9.4 - 12.3 fL 07/15/2024 6:53 AM EDT [facility] Blood Venipuncture / Unknown 07/15/2024 6:13 AM EDT 07/15/2024 6:28 AM EDT us Chandra Jose MD LAB BLOOD ORDERABLES Final Resul t [facility] [address] [place] [address], [facility] [phone] * (ABNORMAL) Basic Metabolic Panel (07/15/2024 6:13 AM EDT) Sodium 144 136 - 146 meq/L 07/15/2024 7:08 AM EDT [facility] Potassium 3.9 3.5 - 5.1 meq/L 07/15/2024 7:08 AM EDT [facility] Chloride 117(H) 102 - 112 meq/L 07/15/2024 7:08 AM EDT [facility] CO2 20(L) 21 - 32 meq/L 07/15/2024 7:08 AM EDT [facility] Anion Gap 11 9 - 20 07/15/2024 7:08 AM EDT [facility] BUN 14 7 - 22 mg/dL 07/15/2024 7:08 AM EDT [facility] Creatinine 0.70 0.55 - 1.02 mg/dL 07/15/2024 7:08 AM EDT [facility] BUN/Creatinine 20 8 - 20 07/15/2024 7:08 AM EDT [facility] Glucose 239(H) 74 - 106 mg/dL 07/15/2024 7:08 AM EDT [facility] Calcium 8.6 8.4 - 10.1 mg/dL 07/15/2024 7:08 AM EDT [facility] Osmolality Calc 295.1 7:08 AM EDT [facility] eGFR (mL/min/1.73m2) >60 >=60 mL/min/1.7 3m2 07/15/2024 7:08 AM EDT [facility] Comment:eGFR of <60 suggests chronic kidney disease if found over a 3 month period of time. eGFR <15 indicates renal failure. Blood Venipuncture / Unknown 07/15/2024 6:13 AM EDT 07/15/2024 6:28 AM EDT us Chandra Jose MD LAB BLOOD ORDERABLES Final Resul t [facility] [address] [phone] * (ABNORMAL) Ammonia (07/15/2024 6:13 AM EDT) Ammonia 81(H) 11 - 32 ??mol/L 07/15/2024 6:50 AM EDT [facility] Comment:[employer] has become aware of sulfasalazine and sulfapyridine [...] the drug. Blood Venipuncture / Unknown 07/15/2024 6:13 AM EDT 07/15/2024 6:27 AM EDT us Chandra Jose MD LAB BLOOD ORDERABLES Final Resul t [facility] [address] [phone] * Ultrasound liver (07/14/2024 4:35 PM EDT) [...] and dictated by Dr. Bacilio Patel MD Susie Petersen APRN [facility] US ORDERABLES Final Res ult * (ABNORMAL) Blood gas, arterial (07/14/2024 8:15 AM EDT) pH, Arterial 7.50(H) 7.35 - 7.45 07/14/2024 8:18 AM EDT [facility] pCO2, Arterial 27(L) 35 - 45 mm Hg 07/14/2024 8:18 AM EDT [facility] pO2, Arterial 82 80 - 100 mm Hg 07/14/2024 8:18 AM EDT [facility] HCO3, Arterial 21 20 - 26 mmol/L 07/14/2024 8:18 AM EDT [facility] Base Excess, Arterial -2.1(L) -2.0 - 2.0 mmol/L 07/14/2024 8:18 AM EDT [facility] O2 Sat, Arterial 97.5 95.0 - 100.0 % 07/14/2024 8:18 AM EDT [facility] CTO2 ARTERIAL 10.4 mmol/L 07/14/2024 8:18 AM EDT [facility] THB ARTERIAL 7.7(L) 12.0 - 18.0 g/dL 07/14/2024 8:18 AM EDT [facility] PaO2/FIO2 calculated 389.0 07/14/2024 8:18 AM EDT [facility] COLLECTION SITE Left Radial 07/14/2024 8:18 AM EDT [facility] Arterial Puncture Yes 07/14/2024 8:18 AM EDT [facility] Blood Gas PT Temperature C 37.0 07/14/2024 8:18 AM EDT [facility] Rafael's Test Acceptable 07/14/2024 8:18 AM EDT [facility] ABG Number of Draw Attempts 1 07/14/2024 8:18 AM EDT [facility] FIO2 21.0 07/14/2024 8:18 AM EDT [facility] Blood Gas Temperature Corrected Results No No 07/14/2024 8:18 AM EDT [facility] Blood, Arterial 07/14/2024 8 :15 AM EDT 07/14/2024 8:18 AM EDT us Chandra Jose MD LAB BLOOD ORDERABLES Final Resul t [facility] [address] [phone] * (ABNORMAL) Basic Metabolic Panel (07/14/2024 6:20 AM EDT) Sodium 144 136 - 146 meq/L 07/14/2024 7:19 AM EDT [facility] Potassium 3.7 3.5 - 5.1 meq/L 07/14/2024 7:19 AM EDT [facility] Chloride 116(H) 102 - 112 meq/L 07/14/2024 7:19 AM EDT [facility] CO2 17(L) 21 - 32 meq/L 07/14/2024 7:19 AM EDT [facility] Anion Gap 15 9 - 20 07/14/2024 7:19 AM EDT [facility] BUN 13 7 - 22 mg/dL 07/14/2024 7:19 AM EDT [facility] Creatinine 0.80 0.55 - 1.02 mg/dL 07/14/2024 7:19 AM EDT [facility] BUN/Creatinine 16 8 - 20 07/14/2024 7:19 AM EDT [facility] Glucose 156(H) 74 - 106 mg/dL 07/14/2024 7:19 AM EDT [facility] Calcium 8.8 8.4 - 10.1 mg/dL 07/14/2024 7:19 AM EDT [facility] Osmolality Calc 290.1 7:19 AM EDT [facility] eGFR (mL/min/1.73m2) >60 >=60 mL/min/1.7 3m2 07/14/2024 7:19 AM EDT [facility] Comment:eGFR of <60 suggests chronic kidney disease if found over a 3 month period of time. eGFR <15 indicates renal failure. Blood Venipuncture / Unknown 07/14/2024 6:20 AM EDT 07/14/2024 6:46 AM EDT us Chandra Jose MD LAB BLOOD ORDERABLES Final Resul t [facility] [address] [phone] * (ABNORMAL) Ammonia (07/14/2024 6:19 AM EDT) Ammonia 71(H) 11 - 32 ??mol/L 07/14/2024 7:08 AM EDT [facility] Comment:[employer] has become aware of sulfasalazine and sulfapyridine [...] of the drug. Blood Venipuncture / Unknown 07/14/2024 6:19 AM EDT 07/14/2024 6:45 AM EDT us Chandra Jose MD LAB BLOOD ORDERABLES Final Resul t [facility] [address] [phone] * (ABNORMAL) CBC - Hemogram (SJ-BKR) (07/14/2024 6:19 AM EDT) WBC 6.1 4.0 - 10.0 K/??L 07/14/2024 6:54 AM EDT [facility] RBC 2.31(L) 3.93 - 5.22 M/??L 07/14/2024 6:54 AM EDT [facility] Hemoglobin 7.2(L) 11.2 - 15.7 GM/DL 07/14/2024 6:54 AM EDT [facility] Hematocrit 22.3(L) 34.1 - 44.9 % 07/14/2024 6:54 AM EDT [facility] MCV 97(H) 79 - 95 fL 07/14/2024 6:54 AM EDT [facility] MCH 31.2 25.6 - 32.2 pg 07/14/2024 6:54 AM EDT [facility] MCHC 32.3 32.2 - 35.5 GM/DL 07/14/2024 6:54 AM EDT [facility] RDW 19.4(H) 11.7 - 14.4 % 07/14/2024 6:54 AM EDT [facility] Platelets 64(L) 140 - 375 K/CU MM 07/14/2024 6:54 AM EDT [facility] MPV 11.9 9.4 - 12.3 fL 07/14/2024 6:54 AM EDT [facility] Blood Venipuncture / Unknown 07/14/2024 6:19 AM EDT 07/14/2024 6:46 AM EDT us Chandra Jose MD LAB BLOOD ORDERABLES Final Resul t Performing Organization Address [facility] de Phone Number [facility] [address] [phone] * (ABNORMAL) Hemoglobin and hematocrit (07/13/2024 7:43 PM EDT) Hemoglobin 7.6(L) 11.2 - 15.7 GM/DL 07/13/2024 7:53 PM EDT [facility] Hematocrit 23.5(L) 34.1 - 44.9 % 07/13/2024 7:53 PM EDT [facility] Blood Venipuncture / Unknown 07/13/2024 7:43 PM EDT 07/13/2024 7:47 PM EDT us Chandra Jose MD LAB BLOOD ORDERABLES Final Resul t Performing Organization Address [facility] de Phone Number [facility] [address] [phone] * (ABNORMAL) Haptoglobin(SENDOUT) (07/13/2024 7:43 PM EDT) Haptoglobin 213(H) 30 - 200 mg/dL 07/15/2024 11:11 PM EDT [email or web address] Comment: Performed By: [email or web address] [address] [place] [id number] Derrick Barge Operator: Parker Rangel MD, PhD CLIA Number: [id number] Blood Venipuncture / Unknown 07/13/2024 7:43 PM EDT 07/13/2024 7:47 PM EDT us Ken Urrutia MD LAB BLOOD ORDERABLES Final Res ult [facility] [place] [address], [facility] [phone] * Transfuse RBC (07/13/2024 3:47 PM EDT) Result MD MIMA Prince_MODEL_IP_BLOOD TRANSFUSION ORDERABLES Final Result * Transfuse RBC: 2 Units (07/13/2024 3:47 PM EDT) Result MD MIMA Prince_MODEL_IP_BLOOD TRANSFUSION ORDERABLES Final Result * Transfuse RBC (07/13/2024 12:35 PM EDT) Result MD MIMA Prince_MODEL_IP_BLOOD TRANSFUSION ORDERABLES Final Result * Prepare RBC: 2 Units (07/13/2024 6:53 AM EDT) Issue Date/Time [id number] [facility] BLOOD [facility] [place] Product Identification Red Blood Cells [facility] [place]) Product Code [id number] [facility] [place] Status Information Transfused [facility] [place] Unit Number [id number] [facility] BLOOD [facility] [place]) Blood Type 6200 [facility] [place] Cross Match Results Compatible [facility] [place] Result MD MIMA Prince_MODEL_IP_BLOOD BANK PRODUCT ORDERABLES Final Result [facility] [place] 1 [facility] [address] [phone] * (ABNORMAL) CALCIUM Ionized (07/13/2024 6:37 AM EDT) Calcium Ionized 1.07(L) 1.12 - 1.32 mmol/L 07/13/2024 6:57 AM EDT [facility] Blood Venipuncture / Unknown 07/13/2024 6:37 AM EDT 07/13/2024 6:50 AM EDT us Rupert Betancourt MD LAB BLOOD ORDERABLES Final Res ult Performing Organization Address [facility]/ZIP Co de Phone Number [facility] [address] [phone] * Lactate dehydrogenase (LDH) (07/13/2024 6:08 AM EDT) LDH 231 84 - 246 U/L 07/13/2024 2:38 PM EDT [facility] Blood Venipuncture / Unknown 07/13/2024 6:08 AM EDT 07/13/2024 6:16 AM EDT us Ken Urrutia MD LAB BLOOD ORDERABLES Final Res ult Performing Organization Address [facility]/ZIP Co de Phone Number [facility] [address] [phone] * (ABNORMAL) Ferritin (07/13/2024 6:08 AM EDT) Ferritin 1,036.20(H ) 8.00 - 252.00 ng/mL 07/13/2024 2:38 PM EDT [facility] Blood Venipuncture / Unknown 07/13/2024 6:08 AM EDT 07/13/2024 6:16 AM EDT us Ken Urrutia MD LAB BLOOD ORDERABLES Final Res ult Performing Organization Address City/[facility]/ZIP Co de Phone Number [facility] [address] [phone] * (ABNORMAL) Iron and TIBC (07/13/2024 6:08 AM EDT) Iron 74.0 50.0 - 170.0 ug/dL 07/13/2024 2:38 PM EDT [facility] TIBC 163(L) 250 - 450 ug/dL 07/13/2024 2:38 PM EDT [facility] % Saturation 45 15 - 55 % 07/13/2024 2:38 PM EDT [facility] UIBC 89 07/13/2024 2:38 PM EDT [facility] Blood Venipuncture / Unknown 07/13/2024 6:08 AM EDT 07/13/2024 6:16 AM EDT us Ken Urrutia MD LAB BLOOD ORDERABLES Final Res ult [facility] [address] [phone] * (ABNORMAL) Comprehensive Metabolic Panel (07/13/2024 6:08 AM EDT) Sodium 142 136 - 146 meq/L 07/13/2024 7:01 AM EDT [facility] Potassium 3.9 3.5 - 5.1 meq/L 07/13/2024 7:01 AM EDT [facility] Chloride 113(H) 102 - 112 meq/L 07/13/2024 7:01 AM EDT [facility] CO2 19(L) 21 - 32 meq/L 07/13/2024 7:01 AM EDT [facility] Calcium 8.3(L) 8.4 - 10.1 mg/dL 07/13/2024 7:01 AM EDT [facility] Glucose 124(H) 74 - 106 mg/dL 07/13/2024 7:01 AM EDT [facility] BUN 13 7 - 22 mg/dL 07/13/2024 7:01 AM EDT [facility] Creatinine 0.88 0.55 - 1.02 mg/dL 07/13/2024 7:01 AM EDT [facility] BUN/Creatinine 15 8 - 20 07/13/2024 7:01 AM EDT [facility] Albumin 1.2(L) 3.4 - 5.0 g/dL 07/13/2024 7:01 AM EDT [facility] Alkaline Phosphatase 54 27 - 136 U/L 07/13/2024 7:01 AM EDT [facility] ALT 10(L) 13 - 56 U/L 07/13/2024 7:01 AM EDT [facility] AST 36 5 - 37 U/L 07/13/2024 7:01 AM EDT [facility] Total Bilirubin 1.2 0.2 - 1.2 mg/dL 07/13/2024 7:01 AM EDT [facility] Protein, Total 8.6(H) 6.4 - 8.2 gm/dL 07/13/2024 7:01 AM EDT [facility] Anion Gap 14 9 - 20 07/13/2024 7:01 AM EDT [facility] A/G Ratio 0.2(L) 1.1 - 2.5 07/13/2024 7:01 AM EDT [facility] Globulin 7.4(H) 1.5 - 4.5 g/dL 07/13/2024 7:01 AM EDT [facility] Osmolality Calc 284.7 7:01 AM EDT [facility] eGFR (mL/min/1.73m2) >60 >=60 mL/min/1.7 3m2 07/13/2024 7:01 AM EDT [facility] Comment:ESTIMATED GFR IS NOT ACCURATE CREATININE CLEARANCE IN PREDICTING GLOMERULAR FILTRATION RATE. ESTIMATED GFR IS NOT APPLICABLE FOR DIALYSIS PATIENTS. Blood Venipuncture / Unknown 07/13/2024 6:08 AM EDT 07/13/2024 6:16 AM EDT us Rupert Betancourt MD LAB BLOOD ORDERABLES Final Res ult [facility] 1 [place] [address], [facility] [phone] * (ABNORMAL) CBC - Hemogram (SJ-BKR) (07/13/2024 6:08 AM EDT) WBC 5.1 4.0 - 10.0 K/??L 07/13/2024 6:39 AM EDT [facility] RBC 1.79(L) 3.93 - 5.22 M/??L 07/13/2024 6:39 AM EDT [facility] Hemoglobin 5.6(LL) 11.2 - 15.7 GM/DL 07/13/2024 6:39 AM EDT [facility] Hematocrit 18.3(L) 34.1 - 44.9 % 07/13/2024 6:39 AM EDT [facility] MCV 102(H) 79 - 95 fL 07/13/2024 6:39 AM EDT [facility] MCH 31.3 25.6 - 32.2 pg 07/13/2024 6:39 AM EDT [facility] MCHC 30.6(L) 32.2 - 35.5 GM/DL 07/13/2024 6:39 AM EDT [facility] RDW 17.2(H) 11.7 - 14.4 % 07/13/2024 6:39 AM EDT [facility] Platelets 76(L) 140 - 375 K/CU MM 07/13/2024 6:39 AM EDT [facility] MPV 11.5 9.4 - 12.3 fL 07/13/2024 6:39 AM EDT [facility] Blood Venipuncture / Unknown 07/13/2024 6:08 AM EDT 07/13/2024 6:16 AM EDT us Rupert Betancourt MD LAB BLOOD ORDERABLES Final Res ult Performing Organization Address City/State/[facility] Co de Phone Number [facility] [address] [place] [address] * Folate, Serum (07/13/2024 6:08 AM EDT) Folate 5.10 3.10 - 17.50 ng/mL 07/13/2024 7:05 AM EDT [facility] Blood Venipuncture / Unknown 07/13/2024 6:08 AM EDT 07/13/2024 6:16 AM EDT us Rupert Betancourt MD LAB BLOOD ORDERABLES Final Res ult Performing Organization Address [facility]/State/ZIP Co de Phone Number [facility] [address] [phone] * (ABNORMAL) Ammonia (07/13/2024 6:02 AM EDT) Ammonia 101(H) 11 - 32 ??mol/L 07/13/2024 6:36 AM EDT [facility] Comment:[employer] has become aware of sulfasalazine and sulfapyridine [...] of the drug. Blood Venipuncture / Unknown 07/13/2024 6:02 AM EDT 07/13/2024 6:17 AM EDT Rupert Betancourt MD LAB BLOOD ORDERABLES Final Res ult Performing Organization Address [facility] Co de Phone Number [facility] [address] [phone] * (ABNORMAL) Urine Drug Screen (07/13/2024 5:41 AM EDT) Amphetamine Urine Negative Negative 024 6:24 AM EDT [facility] Barbiturate Screen Negative Negative 2023 6:24 AM EDT [facility] Benzodiazepine Screen Negative Negative 6:24 AM EDT [facility] Cocaine (Metab.) Screen Negative Negative 07/13/2024 6:24 AM EDT [facility] Opiate Screen Positive(A ) Negative 07/13/2024 6:24 AM EDT [facility] Phencyclidine Screen Negative Negative 06/21 6:24 AM EDT [facility] Tricyclic Screen Negative Negative 07/13/20 6:24 AM EDT [facility] Tetrahydrocannabinol Positive(A ) Negative 07/13/2024 6:24 AM EDT [facility] Creatinine, Ur 219.0 mg/dL 07/13/2024 6:24 AM EDT [facility] pH, UA 5.0(L) 6.0 - 8.0 07/13/2024 6:24 AM EDT [facility] Urine 07/13/2024 5:41 AM EDT 07/13/2024 5:52 AM EDT Narrative [facility] - 07/13/2024 6:24 AM EDT Clinical consideration and professional judgement should be applied to any [id number] test result, particularly when preliminary positive results [...] Rupert Betancourt MD URINE ORDERABLES Final Result Performing Organization Address City/State/[facility] Co de Phone Number [facility] [address] [place] [address], [facility] [phone] * Transfuse RBC (07/13/2024 5:26 AM EDT) Sally Ribera APRN FS_MODEL_IP_BLOOD TRANSFUSION ORDERABLES Edited Result - Final * Transfuse RBC: 2 Units (07/13/2024 5:26 AM EDT) Sally Ribera APRN FS_MODEL_IP_BLOOD TRANSFUSION ORDERABLES Edited Result - Final * Transfuse RBC (07/12/2024 10:52 PM EDT) Sally Ribera APRN FS_MODEL_IP_BLOOD TRANSFUSION ORDERABLES Final Result * (ABNORMAL) Urinalysis Microscopic Only (07/12/2024 7:47 PM EDT) WBC, UA 3-5(A) None Seen /HPF 07/12/2024 8:22 PM EDT [facility] RBC, UA 0-2(A) None Seen /HPF 07/12/2024 8:22 PM EDT [facility] Bacteria, UA 1+(A) None Seen, Trace 07/12/2024 8:22 PM EDT [facility] Mucus 1+(A) None Seen 07/12/2024 8:22 PM EDT [facility] SQUAMOUS EPITHELIAL 0-2(A) None Seen /HPF 07/12/2024 8:22 PM EDT [facility] Urine URINE SPECIMEN COLLECTION, CATHETERIZED / Unknown 07/12/2024 7:47 PM EDT 07/12/2024 8:07 PM EDT us Sally Ribera DIRECTOR [employer] URINE ORDERABLES Final Result [facility] [address] [place] [address] * (ABNORMAL) Urinalysis, Reflex Microscopic and Culture If Indicated - Cath (07/12/2024 7:47 PM EDT) Color, UA Yellow 07/12/2024 8:16 PM EDT [facility] Clarity, UA Turbid(A) Clear 07/12/2024 8:16 PM EDT [facility] Specific [place], UA 1.042(H) 1.005 - 1.030 07/12/2024 8:16 PM EDT [facility] pH, UA 5.5(L) 6.0 - 8.0 07/12/2024 8:16 PM EDT [facility] Leukocytes, UA Negative Negative 07/12/2024 8:16 PM EDT [facility] Nitrite, UA Negative Negative 07/12/2024 8:16 PM EDT [facility] Protein, UA 1+(A) Negative 07/12/2024 8:16 PM EDT [facility] Glucose, UA Normal Normal 07/12/2024 8:16 PM EDT [facility] Ketones, UA Trace(A) Negative 07/12/2024 8:16 PM EDT [facility] Bilirubin, UA Negative Negative 07/12/2024 8:16 PM EDT [facility] Blood, UA 1+(A) Negative 07/12/2024 8:16 PM EDT [facility] Urobilinogen, UA 3 mg/dL(A) Normal 07/12/2024 8:16 PM EDT [facility] Specimen Source Urine, [place] 07/12/2024 8:16 PM EDT [facility] Urine URINE SPECIMEN COLLECTION, CATHETERIZED / Unknown 07/12/2024 7:47 PM EDT 07/12/2024 8:07 PM EDT Sally Ribera APRN URINE ORDERABLES Final Result [facility] [address] [place] [address], [facility] [phone] * Direct Lena/BAUDILIO (07/12/2024 5:22 PM EDT) BAUDILIO, Polyspecific Negative 024 2:14 PM EDT [facility]LOOD [place] Blood Venipuncture / Unknown 07/12/2024 5:22 PM EDT 07/13/2024 2:17 PM EDT Ken Urrutia MD [facility] BLOOD BANK TEST ORDERABLES Final Result [facility] ([place]) 1 [place] [address], [facility] [phone] * ABO/Rh (07/12/2024 5:22 PM EDT) ABO/Rh A POSITIVE 07/12/2024 6:38 PM EDT [facility] [place] Blood Venipuncture / Unknown 07/12/2024 5:22 PM EDT 07/12/2024 5:27 PM EDT [facility] BLOOD BANK TEST ORDERABLES Final Result [facility] ([place] 1 [facility] [place] [address], [facility] [phone] * Antibody Screen (07/12/2024 5:22 PM EDT) Antibody Screen Negative 07/12/2024 6:39 PM EDT [facility] ([place] Blood Venipuncture / Unknown 07/12/2024 5:22 PM EDT 07/12/2024 5:27 PM EDT [facility] BLOOD BANK TEST ORDERABLES Final Result Performing Organization Address [facility]/ZIP Co de Phone Number [facility] ([place] 1 [facility] [place] [address], [facility] [phone] * (ABNORMAL) Hemoglobin and hematocrit (07/12/2024 5:22 PM EDT) [facility] Hemoglobin 5.1(LL) 11.2 - 15.7 GM/DL 07/12/2024 5:50 PM EDT [facility] Hematocrit 16.7(LL) 34.1 - 44.9 % 07/12/2024 5:50 PM EDT [facility] Blood Venipuncture / Unknown 07/12/2024 5:22 PM EDT 07/12/2024 5:28 PM EDT [facility] LAB BLOOD ORDERABLES Final Res ult [facility] 1 [place] [address], [facility] [phone] * CT chest abdomen pelvis with contrast [...] dictated by Trino Nguyen M.D. Sally Ribera [facility] CT ORDERABLES Final Result * CT brain without IV contrast (07/12/2024 [...] by Trino Nguyen M.D. Sally Ribera APRN [facility] CT ORDERABLES Final Result * Prepare RBC: 2 Units (07/12/2024 5:01 PM EDT) Issue Date/Time [id number] [facility] [place] Product Identification Red Blood Cells [facility] [place] Product Code [id number] [facility] [place] Status Information Transfused [facility] [place] Unit Number [id number] [facility] ([place] Blood Type 6200 [facility] [place] Cross Match Results Compatible [facility] [place] Sally Ribera APRN FS_MODEL_IP_BLOOD BANK PRODUCT ORDERABLES Final Result [facility] ([place]) 1 [place] [address], [facility] [phone] * SARS-COV2/RT-PCR (07/12/2024 4:47 PM EDT) SARS-COV2/RT-P CR Negative Negative DEVICE ID9 07/12/2024 5:33 PM EDT [facility] Nasopharyngeal NASOPHARYNGEAL SWAB / Unknown 07/12/2024 4:47 PM EDT 07/12/2024 4:48 PM EDT Narrative [facility] - 07/12/2024 5:33 PM EDT Testing [...] MICROBIOLOGY - GENERAL ORDERAB LES Final Result [facility] [address] [place] [address], [facility] [phone] * (ABNORMAL) Phosphorus (07/12/2024 4:46 PM EDT) Phosphorus 1.2(L) 2.5 - 4.9 mg/dL 07/12/2024 9:46 PM EDT [facility] Blood Venipuncture / Unknown 07/12/2024 4:46 PM EDT 07/12/2024 4:47 PM EDT us Rupert Betancourt MD LAB BLOOD ORDERABLES Final Res ult Performing Organization Address [facility]/ZIP Co de Phone Number [facility] [address] [phone] * Magnesium (07/12/2024 4:46 PM EDT) Magnesium 1.9 1.5 - 2.4 mg/dL 07/12/2024 9:46 PM EDT [facility] Blood Venipuncture / Unknown 07/12/2024 4:46 PM EDT 07/12/2024 4:47 PM EDT us Rupert Betancourt MD LAB BLOOD ORDERABLES Final Res ult Performing Organization Address [facility]/ZIP Co de Phone Number [facility] [address] [phone] * (ABNORMAL) Vitamin B12 (07/12/2024 4:46 PM EDT) Vitamin B12 2,764(H) 193 - 986 pg/mL 07/12/2024 9:46 PM EDT [facility] Blood Venipuncture / Unknown 07/12/2024 4:46 PM EDT 07/12/2024 4:47 PM EDT us Rupert Betancourt MD LAB BLOOD ORDERABLES Final Res ult Performing Organization Address [facility]/ZIP Co de Phone Number [facility] [address] [phone] * Procalcitonin (07/12/2024 4:46 PM EDT) Procalcitonin 0.39 <=0.50 ng/mL 07/12/2024 8:30 PM EDT [facility] Comment: Sepsis comment <0.5 Antibiotics Discouraged [...] ORDERABLES Final Res ult Performing Organization Address [facility]/ZIP Co de Phone Number [facility] [address] [phone] * Peripheral Smear Path Review (07/12/2024 4:46 PM EDT) Pathologist Review See scanned Pathology Report 07/18/2024 10:11 AM EDT [facility] Blood Venipuncture / Unknown 07/12/2024 4:46 PM EDT 07/12/2024 4:47 PM EDT Sally Ribera APRN LAB BLOOD ORDERABLES Final Res ult Performing Organization Address City/[facility]/ZIP Co de Phone Number [facility] [address] [phone] * (ABNORMAL) Manual Differential (07/12/2024 4:46 PM EDT) Total Counted 100 07/12/2024 6:04 PM EDT [facility] % Neutros (manual) 64 50 - 65 % 07/12/2024 6:04 PM EDT [facility] % Lymphs (manual) 21(L) 24 - 44 % 07/12/2024 6:04 PM EDT [facility] % Monos (manual) 7(H) 4 - 5 % 07/12/20 6:04 PM EDT [facility] % Metamyelo (manual) 3(H) 0 - 1 % 07/12/2024 6:04 PM EDT [facility] % Myelo (manual) 5 % 07/12/20 6:04 PM EDT [facility] RBC Morphology abnormal( A) Normal 07/12/2024 6:04 PM EDT [facility] Platelet Estimate Decreased (A) Adequate 07/12/2024 6:04 PM EDT [facility] Anisocytosis 1+ 07/12/2024 6:04 PM EDT [facility] Macrocytes 1+ 07/12/2024 6:04 PM EDT [facility] Ovalocytes 1+ 07/12/2024 6:04 PM EDT [facility] Rouleaux 1+ 07/12/2024 6:04 PM EDT [facility] Raw nRBC Count 1(H) 0 - 0 07/12/2024 6:04 PM EDT [facility] ANC# 3.58 K/??L 07/12/2024 6:04 PM EDT [facility] Blood Venipuncture / Unknown 07/12/2024 4:46 PM EDT 07/12/2024 4:47 PM EDT us Sally Ribera DIRECTOR [employer] LAB BLOOD ORDERABLES Final Res ult Performing Organization Address [facility]/State/ZIP Co de Phone Number [facility] [address] [phone] * Lipase (07/12/2024 4:46 PM EDT) Lipase 20 13 - 75 U/L 07/12/2024 5:15 PM EDT [facility] Blood Venipuncture / Unknown 07/12/2024 4:46 PM EDT 07/12/2024 4:47 PM EDT us Sally Ribera DIRECTOR [employer] LAB BLOOD ORDERABLES Final Res ult Performing Organization Address [facility]/ZIP Co de Phone Number [facility] [address] [phone] * Lactic Acid with reflex (SJ) (07/12/2024 4:46 PM EDT) Lactic Acid Level (mmol/L) 1.7 0.4 - 2.0 mmol/L 07/12/2024 5:15 PM EDT [facility] Comment:If a Lactic Acid Lev el with Reflex if Indicated result is greater than 2.0, a Lactic Acid Level will be ordered to be collected 2 hours after the original collection time. Blood Venipuncture / Unknown 07/12/2024 4:46 PM EDT 07/12/2024 4:48 PM EDT Sally Ribera DIRECTOR AUDIENCE MARKETING LAB BLOOD ORDERABLES Final Res ult Performing Organization Address [facility] Co de Phone Number [facility] [address] [phone] * (ABNORMAL) Comprehensive metabolic panel (07/12/2024 4:46 PM EDT) Sodium 140 136 - 146 meq/L 07/12/2024 5:15 PM EDT [facility] Potassium 3.8 3.5 - 5.1 meq/L 07/12/2024 5:15 PM EDT [facility] Comment:Specimen slightly he molyzed. May falsely increase potassium. Chloride 109 102 - 112 meq/L 07/12/2024 5:15 PM EDT [facility] CO2 19(L) 21 - 32 meq/L 07/12/2024 5:15 PM EDT [facility] Calcium 9.2 8.4 - 10.1 mg/dL 07/12/2024 5:15 PM EDT [facility] Glucose 110(H) 74 - 106 mg/dL 07/12/2024 5:15 PM EDT [facility] BUN 12 7 - 22 mg/dL 07/12/2024 5:15 PM EDT [facility] Creatinine 1.05(H) 0.55 - 1.02 mg/dL 07/12/2024 5:15 PM EDT [facility] BUN/Creatinine 11 8 - 20 07/12/2024 5:15 PM EDT [facility] Albumin 1.4(L) 3.4 - 5.0 g/dL 07/12/2024 5:15 PM EDT [facility] Alkaline Phosphatase 64 27 - 136 U/L 07/12/2024 5:15 PM EDT [facility] ALT 12(L) 13 - 56 U/L 07/12/2024 5:15 PM EDT [facility] AST 52(H) 5 - 37 U/L 07/12/2024 5:15 PM EDT [facility] Total Bilirubin 1.0 0.2 - 1.2 mg/dL 07/12/2024 5:15 PM EDT [facility] Protein, Total 9.9(H) 6.4 - 8.2 gm/dL 07/12/2024 5:15 PM EDT [facility] Anion Gap 16 9 - 20 07/12/2024 5:15 PM EDT [facility] A/G Ratio 0.2(L) 1.1 - 2.5 07/12/2024 5:15 PM EDT [facility] Globulin 8.5(H) 1.5 - 4.5 g/dL 07/12/2024 5:15 PM EDT [facility] Osmolality Calc 279.8 5:15 PM EDT [facility] eGFR (mL/min/1.73m2) 59(L) >=60 mL/min/1.7 3m2 07/12/2024 5:15 PM EDT [facility] Comment:ESTIMATED GFR IS NOT ACCURATE CREATININE CLEARANCE IN PREDICTING GLOMERULAR FILTRATION RATE. ESTIMATED GFR IS NOT APPLICABLE FOR DIALYSIS PATIENTS. Blood Venipuncture / Unknown 07/12/2024 4:46 PM EDT 07/12/2024 4:47 PM EDT us Sally Ribera DIRECTOR AUDIENCE MARKETING LAB BLOOD ORDERABLES Final Res ult [facility] [address] [phone] * (ABNORMAL) CBC with automated diff (07/12/2024 4:46 PM EDT) WBC 5.6 4.0 - 10.0 K/??L 07/12/2024 5:46 PM EDT [facility] RBC 1.77(L) 3.93 - 5.22 M/??L 07/12/2024 5:46 PM EDT [facility] Hemoglobin 5.7(LL) 11.2 - 15.7 GM/DL 07/12/2024 5:46 PM EDT [facility] Hematocrit 18.8(L) 34.1 - 44.9 % 07/12/2024 5:46 PM EDT [facility] MCV 106(H) 79 - 95 fL 07/12/2024 5:46 PM EDT [facility] MCH 32.2 25.6 - 32.2 pg 07/12/2024 5:46 PM EDT [facility] MCHC 30.3(L) 32.2 - 35.5 GM/DL 07/12/2024 5:46 PM EDT [facility] RDW 14.5(H) 11.7 - 14.4 % 07/12/2024 5:46 PM EDT [facility] Platelets 92(L) 140 - 375 K/CU MM 07/12/2024 5:46 PM EDT [facility] MPV 11.6 9.4 - 12.3 fL 07/12/2024 5:46 PM EDT [facility] NRBC Absolute 0.17(H) 0 - 0.012 K/ul 07/12/2024 5:46 PM EDT [facility] Blood Venipuncture / Unknown 07/12/2024 4:46 PM EDT 07/12/2024 4:47 PM EDT Narrative [facility] - 07/12/2024 5:46 PM EDT When CBC w/ Auto Diff is ordered the lab will add a Manual Differential as a quality check at no additional charge if: Lymphocytes greater than seventy five percent with normal or increased WBC Monocytes greater than Fifteen percent Basophil greater than four percent Bands >10% or several immature myeloids are seen on scan Blast? Flag noted Atypical Lymph flag noted us Sally Ribera DIRECTOR AUD[employer] MARKETING LAB BLOOD ORDERABLES Final Res ult [facility] [address] [place] [id number], [facility] [phone] * XR chest AP portable (07/12/2024 4:27 PM EDT) Anatomical Region Laterality Modality Chest X-Ray 07/12/2024 11:5 8 PM EDT Impressions 07/13/2024 12:39 AM EDT Underinflation with no acute process. 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 Errors in dictation may reflect use of voice recognition software and not all errors in compressor operator portable may have been detected prior to signing. Narrative 07/13/2024 12:39 AM EDT PORTABLE CHEST HISTORY: Mental status change for 2 days., Fall 2 days prior COMPARISON: 07/02/2024. FINDINGS: A single portable radiograph of the chest was performed. The heart is normal in size. There is a vascular congestion. There is decreased lung volume with atelectasis. There is no edema or infiltrate. The bony thorax appears intact. Procedure Note Mert Knight MD - 07/13/2024 PORTABLE CHEST HISTORY: Mental status change for 2 days., Fall 2 days prior COMPARISON: 07/02/2024. FINDINGS: A single portable radiograph of the chest was performed. The heart is normal in size. There is a vascular congestion. There is decreased lung volume with atelectasis. There is no edema or infiltrate. The bony thorax appears intact. IMPRESSION: Underinflation with no acute process. Images reviewed, interpreted, dictated and electronically signed by Mert Knight MD Voice compressor operator portable technology (Power Scribe) is used for the dictation of this note and sound-alike words might be erroneously placed despite reviewing this note for accuracy. Errors in dictation may reflect use of voice recognition software and not all errors in compressor operator portable may have been detected prior to signing. us Sally Ribera DIRECTOR AUDIENCE MARKETING IMG DIAGNOSTIC IMAGING ORDERAB LES Final Result * Blood Culture (07/12/2024 4:20 PM EDT) Result No growth in 5 days 07/17/2024 5:00 PM EDT [facility] Blood Venipuncture / Unknown 07/12/2024 4:20 PM EDT 07/12/2024 4:23 PM EDT Sally Ribera DIRECTOR AUD[employer]ENCE MARKETING MICROBIOLOGY - GENERAL ORDERAB LES Final Result Performing Organization Address [facility]/ZIP Co de Phone Number [facility] [address] [phone] * Blood Culture (07/12/2024 4:20 PM EDT) Result No growth in 5 days 07/17/2024 5:00 PM EDT [facility] Blood Venipuncture / Unknown 07/12/2024 4:20 PM EDT 07/12/2024 4:23 PM EDT Sally Ribera DIRECTOR AUDIENCE MARKETING MICROBIOLOGY - GENERAL ORDERAB LES Final Result Performing Organization Address City/[facility]/ZIP Co de Phone Number [facility] [address] [phone] * ECG 12 lead (07/12/2024 4:05 PM EDT) VENTRICULAR RATE EKG/MIN 97 BPM GE MUSE ATRIAL RATE (MCT) 97 BPM GE MUSE RI Interval 158 ms GE MUSE QRS-INTERVAL (MSEC) 83 ms GE MUSE QT Interval 367 ms GE MUSE QTC Interval 466 ms GE MUSE P [place] 51 degrees GE MUSE R AXIS (MCT) 56 degrees GE MUSE T Wave [place] 27 degrees GE MUSE [place] Diagnosis Normal sinus rhythm Normal ECG No previous ECGs available Confirmed by Joshua MARCUMKRISTA ([id number]), editor city BREANNA REICH ([id number]) on 07/13/2024 2:02:48 PM GE MUSE 07/12/2024 4:05 PM EDT 07/13/2024 2:02 PM EDT us Sally Ribera DIRECTOR AUDIENCE MARKETING ECG ORDERABLES Final Result Performing Organization Address City/[facility]/ZIP Co de Phone Number GE MUSE * Glucose, Nova Meter (07/12/2024 3:59 PM EDT) [facility] POC-GLUCOSE 99 70 - 110 mg/dL 07/12/2024 4:40 PM EDT [facility] Comment:In the event of poor peripheral blood flow, venous or arterial blood should be used due to the potential of erroneous results. Enterprise Resource Planning Consultant [phone] 07/12/2024 4:40 PM EDT [facility] Blood WHOLE BLOOD / Unknown 07/12/2024 3:59 PM EDT 07/12/2024 4:40 PM EDT Narrative [facility] - 07/12/2024 4:40 PM EDT Enterprise Resource Planning Consultant ID is - [id number] us Not In System Provider POINT OF CARE TEST ORDERA BLES Final Result [facility] [address] [phone] * EKG-SCANNED (07/12/2024) Narrative 07/12/2024 Ordered by an unspecified provider. us Default Scanning Provider SCAN ORDERS Final Result * EKG-SCANNED (07/12/2024) Narrative 07/12/2024 Ordered by an unspecified provider. us Default Scanning Provider SCAN ORDERS Final Result documented in this encounter Visit Diagnoses Diagnosis Sepsis (HCC)- Primary Unspecified septicemia Sepsis (HCC) Unspecified septicemia Transient alteration of awareness Anemia Unspecified anemia Sepsis, due to unspecified organism, unspecified whether acute organ dysfunction present (HCC) Anemia, unspecified type documented in this encounter Admitting Diagnoses Diagnosis Sepsis (HCC) Unspecified septicemia documented in this encounter Administered Medications Inactive Administered Medications - up to 3 most recent administrations Medication Order MAR Action Action Date Dose Rate Site acetaminophen (TYLENOL) suppository 650 mg 650 mg Once, rectal, On Karine 07/13/24 at 2230, For 1 dose, Recommended maximum dose of acetaminophen is 4000 mg from all sources in 24 hours Given 07/14/2024 5:57 PM EDT 650 mg acetaminophen (TYLENOL) tablet 1,000 mg 1,000 mg Every 6 hours PRN, oral, fever greater than or equal to 38C, mild pain (1-3), headache, Starting on 07/12/24 at 2014, Recommended maximum dose of acetaminophen is 4000 mg from all sources in 24 hours acyclovir (ZOVIRAX) 690 mg in sodium chloride 0.9 % (NS) 100 mL IVPB 690 mg Every 8 hours scheduled, intravenous, at 100 mL/hr, First dose on 07/15/24 at 1400 IVPB Started 07/19/2024 3:27 PM EDT 690 mg 100 mL/hr IVPB Started 07/19/2024 5:04 AM EDT 690 mg 100 mL/hr IVPB Started 07/18/2024 9:49 PM EDT 690 mg 100 mL/hr albuterol (PROVENTIL) nebulizer solution 2.5 mg 2.5 mg Every 6 hours (RT), nebulization, First dose on Wed07/12/24 at 2300, RESPIRATORY THERAPY TREATMENT , What is the respiratory therapy Modality? Small volume Nebulization Given 07/18/2024 4:15 AM EDT 2.5 mg Given 07/17/2024 8:26 PM EDT 2.5 mg Given 07/17/2024 4:24 PM EDT 2.5 mg atorvastatin (LIPITOR) tablet 10 mg 10 mg Daily, oral, First dose on 07/12/24 at 2010, Therapeutic Interchange for Statins. Given 07/20/2024 10: 15 AM EDT 10 mg Given 07/19/2024 9:44 AM EDT 10 mg Given 07/18/2024 9:13 AM EDT 10 mg budesonide (PULMICORT) nebulizer suspension 0.5 mg 0.5 mg 2 times daily (RT), nebulization, First dose on Wed07/12/24 at 2030, *RESPIRATORY THERAPY TREATMENT*, What is the respiratory therapy Modality? Small volume Nebulization Given 07/17/2024 8:26 PM EDT 0.5 mg Given 07/17/2024 11:34 AM EDT 0.5 mg Given 07/16/2024 8:56 PM EDT 0.5 mg busPIRone (BUSPAR) tablet 15 mg 15 mg 3 times daily, oral, First dose on Wed07/12/24 at 2100 Given 07/20/2024 10:15 AM EDT 15 mg Given 07/19/2024 10:00 PM EDT 15 mg Given 07/19/2024 2:48 PM EDT 15 mg cefTRIAXone (ROCEPHIN) 1 g in sodium chloride 0.9 % (NS) 50 mL YULISSA IVPB 1 g Every 24 hours, intravenous, at 100 mL/hr, First dose (after last modification) on Karine 07/13/24 at 1700, Please choose an indication: Urinary Tract Infection, Empiric for Fever of Unknown Origin Secondary to Suspected Infection IVPB Started 07/14/2024 4:29 PM EDT 1 g 100 mL/hr IVPB Started 07/13/2024 6:48 PM EDT 1 g 100 mL/hr cefTRIAXone (ROCEPHIN) 2 g in sodium chloride 0.9 % (NS) 50 mL YULISSA IVPB 2 g Every 24 hours scheduled, intravenous, at 100 mL/hr, First dose on Wed07/12/24 at 1635, Please choose an indication: Urinary Tract Infection IVPB Started 07/12/2024 4:53 PM EDT 2 g 100 mL/ hr cyanocobalamin tablet 1,000 mcg 1,000 mcg Daily, oral, First dose on Wed07/12/24 at 2010 Given 07/20/2024 10:15 AM EDT 1,000 mcg Given 07/19/2024 9:45 AM EDT 1,000 mcg Given 07/18/2024 9:13 AM EDT 1,000 mcg dexAMETHasone (DECADRON) 40 mg in sodium chloride 0.9 % (NS) 50 mL IVPB 40 mg Every 24 hours, intravenous, at 120 mL/hr, First dose on Wed07/14/24 at 1830, For 4 doses IVPB Started 07/17/2024 8:05 PM EDT 40 mg 120 mL/hr IVPB Started 07/16/2024 5:43 PM EDT 40 mg 120 mL/hr IVPB Started 07/15/2024 11:24 PM EDT 40 mg 120 mL/hr dextrose 5 % and sodium chloride 0.9 % infusion 50 mL/hr Continuous, intravenous, Starting on Wed07/14/24 at 1500 New Bag 07/14/2024 4:33 PM EDT 50 mL/hr 50 mL/hr dextrose 5 % infusion 50 mL/hr Continuous, intravenous, Starting on Wed07/16/24 at 1000 New Bag 07/18/2024 3:46 PM EDT 50 mL/hr 50 mL/hr New Bag 07/17/2024 8:22 PM EDT 50 mL/hr 50 mL/hr New Bag 07/17/2024 5:06 AM EDT 50 mL/hr 50 mL/hr dextrose 50% (D50W) injection 25 g 25 g As needed, intravenous, low blood glucose (specify value in prn comments), less than 41 mg/dL or 41-69 mg/dL and unable to take PO, Starting on Wed07/15/24 at 1101, For 2 doses, Repeat blood glucose every 15 minutes until blood glucose greater than 70 mg/dL. Call Provider if not resolved after 2 treatments Repeat BS in 1 hour, retime for 1 hour after blood sugar greater than 70 mg/dL If less than 41: Repeat Finger stick within 5 minutes with same machine Send serum glucose level: Do not wait on lab to treat diltiazem 100 mg in sodium chloride 0.9 % (NS) MBP 100 mL infusion 2-15 mg/hr Continuous (2-15 mL/hr), intravenous, Starting on Wed07/16/24 at 1530 Rate/Dose Change 07/18/2024 9:31 AM EDT 5 mg/hr 5 mL/hr New 07/18/2024 4:08 AM EDT 10 mg/hr 10 mL/hr New 07/17/2024 6:43 PM EDT 10 mg/hr 10 mL/hr docusate sodium (COLACE) capsule 100 mg 100 mg 2 times daily PRN, oral, constipation, Starting on Wed07/12/24 at 2014, Bowel Regimen - for prevention of constipation. DULoxetine (CYMBALTA) DR capsule 30 mg 30 mg Daily, oral, First dose on Wed07/12/24 at 2009, * DO NOT CRUSH THIS DOSAGE FORM * Given 07/20/2024 10:15 AM EDT 30 mg Given 07/19/2024 9:44 AM EDT 30 mg Given 07/18/2024 9:13 AM EDT 30 mg enoxaparin (LOVENOX) syringe 100 mg 100 mg Every 12 hours scheduled (rounded from 98 mg = 1 mg/kg ? 98 kg), subcutaneous, First dose on Wed07/16/24 at 2100, Do not administer within 12 hours of epidural or lumbar puncture. Look-Alike/Sound-Alike Alert, On hold since Wed07/18/2024 at 1011 until manually unheld Given 07/18/2024 9:12 AM EDT 100 mg Ab dominal Tissue Given 07/17/2024 8:28 PM EDT 100 mg Ab dominal Tissue Given 07/17/2024 8:58 AM EDT 100 mg Ab dominal Tissue ergocalciferol (DRISDOL) capsule 50,000 Units 50,000 Units Weekly, oral, First dose on Wed07/12/24 at 2009, * DO NOT CRUSH THIS DOSAGE FORM * Given 07/19/2024 9:55 AM EDT 50,000 Units Given 07/12/2024 10:54 PM EDT 50,000 Units fentaNYL PF (SUBLIMAZE) injection IMG once as needed, intravenous, Starting on Wed07/18/24 at 1416, For 1 dose, Intra-op Given 07/18/2024 2:16 PM EDT 5 0 mcg gabapentin (NEURONTIN) capsule 100 mg 100 mg 3 times daily, oral, First dose (after last modification) on Wed07/13/24 at 0900 Given 07/20/2024 10:15 AM EDT 100 mg Given 07/19/2024 10:00 PM EDT 100 mg Given 07/19/2024 2:48 PM EDT 100 mg gabapentin (NEURONTIN) capsule 300 mg 300 mg 3 times daily, oral, First dose on Wed07/12/24 at 2100 Given 07/12/2024 10:19 PM EDT 300 mg glucagon injection 1 mg 1 mg As needed, intraMUSCULAR, low blood glucose (specify value in prn comments), For Patients without IV access and blood glucose 41-69 mg/dL AND unable to take PO OR Less than 41 mg/dL, Starting on Wed07/15/24 at 1101, For 2 doses, Caution: glucagon . Roll patient on their side when administering to prevent aspiration. Call Provider if not resolved after 2 treatments Repeat BS in 1 hour, retime for 1 hour after blood sugar greater than 70 mg/dL glucose chewable tablet 16 g 16 g As needed, oral, low blood glucose (specify value in prn comments), 41-69 mg/dL, Starting on Wed07/15/24 at 1101, For 3 doses, For Patients who can take oral AND blood glucose 41-69 mg/dL Give 4 Tabs every 15 minutes. Recheck blood glucose every 15 minutes and repeat 15 grams of carbohydrates until blood glucose is above 70 mg/dL. Give Meal or Snack Call Provider if not resolved after 3 treatments Repeat BS in 1 hour, retime for 1 hour after blood sugar greater than 70 mg/dL hydrALAZINE (APRESOLINE) injection 5 mg 5 mg Every 6 hours PRN, intravenous, hypertension (sbp greater than 160), Starting on Wed07/12/24 at 2014, Hold if SBP < 100 mmHg, DBP < 50 mmHg, or patient is on pressor. Look-alike/Sound-alike medication HYDROmorphone (DILAUDID) injection 0.2 mg 0.2 mg Once, intravenous, On Wed07/14/24 at 0300, For 1 dose Given 07/14/2024 2:38 AM EDT 0.2 mg HYDROmorphone (DILAUDID) injection 0.5 mg 0.5 mg Every 4 hours PRN, intravenous, severe pain (7-10), Starting on Wed07/14/24 at 1322 Given 07/16/2024 1:03 PM EDT 0.5 mg Given 07/16/2024 2:34 AM EDT 0.5 mg Given 07/15/2024 6:16 PM EDT 0.5 mg insulin regular (HUMULIN R,NOVOLIN R) injection 0-12 Units Every 6 hours scheduled, subcutaneous, First dose on Wed07/15/24 at 1200, Corrective Scale B 0 units for fingerstick blood glucose LESS than 140 mg/dL 2 units subcutaneously once for fingerstick blood glucose [140] - [180] mg/dL 4 units subcutaneously once for fingerstick blood glucose [181] - [220] mg/dL 6 units subcutaneously once for fingerstick blood glucose [221] - [260] mg/dL 8 units subcutaneously once for fingerstick blood glucose [261] - [300] mg/dL 10 units subcutaneously once for fingerstick blood glucose [301] - [350] mg/dL 12 units subcutaneously once for fingerstick blood glucose [351] - [400] mg/dL Notify provider of glucose levels LESS than [70] and GREATER than [400] Given 07/16/2024 1:26 AM EDT 2 Units Abdominal Tissue Given 07/15/2024 3:21 PM EDT 3 Units Ab dominal Tissue iopamidoL (ISOVUE-370) 370 mg iodine /mL (76 %) injection 100 mL 100 mL Once, intravenous, On Wed07/12/24 at 1730, For 1 dose, Intra-op Given 07/12/2024 5:07 PM EDT 100 mLs ipratropium-albuteroL (DUO-NEB) 0.5 mg-3 mg(2.5 mg base)/3 mL nebulizer solution 3 mL 3 mL Every 6 hours PRN, nebulization, wheezing, Starting on Wed07/18/24 at 0814, RESPIRATORY THERAPY TREATMENT Protect from Light, What is the respiratory therapy Modality? Small volume Nebulization ketorolac (TORADOL) injection 15 mg 15 mg Once, intravenous, On Wed07/12/24 at 1910, For 1 dose Given 07/12/2024 8:13 PM EDT 15 mg lactulose (CHRONULAC) solution 20 g 20 g 3 times daily, oral, First dose on Wed07/13/24 at 1500 Given 07/18/2024 9:12 AM EDT 20 g Given 07/15/2024 11:28 PM EDT 20 g Given 07/15/2024 5:58 PM EDT 20 g lactulose (CHRONULAC) solution 20 g 20 g 2 times daily, oral, First dose (after last modification) on Wed07/18/24 at 2100 Given 07/18/2024 9:21 PM EDT 2 0 g lactulose (CHRONULAC) solution 20 g 20 g Daily, oral, First dose (after last modification) on Wed07/19/24 at 0900 Given 07/20/2024 10:16 AM EDT 20 g Given 07/19/2024 9:46 AM EDT 20 g LORazepam (ATIVAN) tablet 1 mg 1 mg Every 4 hours PRN, oral, anxiety, agitation, Starting on Wed07/12/24 at 2013 melatonin tablet 5 mg 5 mg Every Night PRN, oral, insomnia, Starting on Wed07/12/24 at 2013 Given 07/13/2024 12:35 AM EDT 5 mg meropenem (MERREM) 1 g in sodium chloride 0.9 % (NS) 50 mL YULISSA IVPB 1 g Once, intravenous, Administer over 30 Minutes, On 07/15/24 at 1330, For 1 dose, Please choose an indication: Pneumonia IVPB Started 07/15/2024 11:11 PM EDT 1 g 100 mL/hr meropenem (MERREM) 500 mg in sodium chloride 0.9 % (NS) 50 mL YULISSA IVPB 500 mg Every 6 hours interval, intravenous, Administer over 3 Hours, First dose on Wed07/15/24 at 1930, Please choose an indication: Pneumonia IVPB Started 07/17/2024 6:21 AM EDT 500 mg 16.7 mL/hr IVPB Started 07/17/2024 12:00 AM EDT 500 mg 16.7 mL/hr IVPB Started 07/16/2024 5:41 PM EDT 500 mg 16.7 mL/hr metoprolol (LOPRESSOR) injection 5 mg 5 mg Once, intravenous, On Wed07/16/24 at 1500, For 1 dose, Hold if SBP < 100 mmHg, DBP < 50 mmHg, or HR < 50 bpm, or patient is on pressor or inotrope. *Telemetry required*, unless patient is in Labor & Delivery. Given 07/16/2024 2:46 PM EDT 5 mg metoprolol tartrate (LOPRESSOR) tablet 12.5 mg 12.5 mg 2 times daily, feeding tube, First dose on Wed07/18/24 at 1030, Hold for systolic BP < 90 mmHg or for HR < 50 BPM Given 07/20/2024 10:15 AM EDT 12 .5 mg Given 07/19/2024 9:30 PM EDT 12.5 mg Given 07/19/2024 9:45 AM EDT 12.5 mg midazolam (PF) (VERSED) injection IMG once as needed, intravenous, Starting on Wed07/18/24 at 1416, For 1 dose, Intra-op Given 07/18/2024 2:16 PM EDT 1 mg ondansetron (ZOFRAN-ODT) disintegrating tablet 4 mg 4 mg Every 8 hours PRN, oral, nausea, vomiting, Starting on Wed07/12/24 at 2013, 1st line. If inadequate response within 60 minutes, proceed to next-line agent for same PRN reason or contact provider if no further options ordered. ondansetron PF (ZOFRAN) injection 4 mg 4 mg Every 8 hours PRN, intravenous, nausea, vomiting, Starting on Wed07/12/24 at 2013, Give IV if patient is unable to take orally. 1st line If inadequate response within 60 minutes, proceed to next-line agent for same PRN reason or contact provider if no further options ordered. For IV push, give over 2 - 5 minutes. oxyCODONE (ROXICODONE) immediate release tablet 10 mg 10 mg Every 4 hours PRN, oral, moderate pain (4-6), severe pain (7-10), Starting on Wed07/12/24 at 2000, Look-alike/Sound-alike medication Given 07/13/2024 12:35 AM EDT 10 mg potassium chloride (KLOR-CON) ER tablet 20 mEq 20 mEq Daily, oral, First dose on Wed07/12/24 at 2010, DO NOT CRUSH THIS DOSAGE FORM. Given 07/13/2024 8:56 AM EDT 20 mEq Given 07/12/2024 10:19 PM EDT 20 mEq potassium chloride 10 mEq, lidocaine (PF) 10 mg/mL (1 %) 10 mg in sodium chloride 0.9 % (NS) 100 mL IVPB at 100 mL/hr, intravenous, Every 1 hour, First dose on Wed07/16/24 at 1300, For 4 doses IVPB Started 07/16/2024 4:21 PM EDT 10 mEq 100 mL/hr IVPB Started 07/16/2024 3:26 PM EDT 10 mEq 100 mL/hr IVPB Started 07/16/2024 2:23 PM EDT 10 mEq 100 mL/hr potassium chloride 10 mEq, lidocaine (PF) 10 mg/mL (1 %) 10 mg in sodium chloride 0.9 % (NS) 100 mL IVPB at 100 mL/hr, intravenous, Every 1 hour, First dose on Wed07/17/24 at 1700, For 6 doses IVPB Started 07/17/2024 10:36 PM EDT 10 mEq 100 mL/hr IVPB Started 07/17/2024 9:39 PM EDT 10 mEq 100 mL/hr IVPB Started 07/17/2024 8:15 PM EDT 10 mEq 100 mL/hr potassium chloride 10 mEq, lidocaine (PF) 10 mg/mL (1 %) 10 mg in sodium chloride 0.9 % (NS) 100 mL IVPB at 100 mL/hr, intravenous, Every 1 hour, First dose on Wed07/18/24 at 1100, For 6 doses IVPB Started 07/18/2024 4:05 PM EDT 10 mEq 100 mL/hr IVPB Started 07/18/2024 3:00 PM EDT 10 mEq 100 mL/hr IVPB Started 07/18/2024 2:00 PM EDT 10 mEq 100 mL/hr rifAXIMin (XIFAXAN) tablet 550 mg 550 mg 2 times daily, oral, First dose on Wed07/14/24 at 2100 Given 07/20/2024 10:16 AM EDT 550 mg Given 07/19/2024 10:00 PM EDT 550 mg Given 07/19/2024 9:44 AM EDT 550 mg sodium chloride 0.9 % infusion 20 mL/hr Once, intravenous, On Wed07/12/24 at 1705, For 1 dose, Used to prep and flush blood tubing before and in between units of blood. New Bag 07/12/2024 7:36 PM EDT 20 mL/hr 20 mL/hr sodium chloride 0.9 % infusion 50 mL/hr Continuous, intravenous, Starting on Wed07/12/24 at 2020 Rate/Dose Change 07/13/2024 10:51 AM EDT 20 mL/hr 20 mL/hr New Bag 07/13/2024 7:03 AM EDT 100 mL/hr 100 mL/hr New Bag 07/12/2024 10:22 PM EDT 100 mL/hr 100 mL/hr sodium chloride 0.9 % infusion 20 mL/hr Once, intravenous, On Wed07/13/24 at 0730, For 1 dose, Used to prep and flush blood tubing before and in between units of blood. New Bag 07/13/2024 8:18 AM EDT 20 mL/hr 20 mL/hr sodium chloride 0.9 % infusion 50 mL/hr Continuous, intravenous, Starting on 07/15/24 at 1130 New Bag 07/15/2024 3:19 PM EDT 50 mL/hr 50 mL/hr sodium chloride 0.9% (NS) bolus 1,000 mL Once, intravenous, Administer over 60 Minutes, On Wed07/12/24 at 1610, For 1 dose, During sepsis resuscitation, the following SEP1 bundle exclusion/modification criteria occurred: Patient will be given 1000 mL of IVF instead of the 30mL/Kg due to concern for fluid overload. New Bag 07/12/2024 4:53 PM EDT 1,000 mLs 1000 mL/hr sodium chloride flush 10 mL 10 mL As needed, intravenous, line care, Starting on Wed07/12/24 at 1604 sodium phosphate 15 mmol in sodium chloride 0.9 % (NS) 250 mL infusion 15 mmol 3 times daily, intravenous, Administer over 4 Hours, First dose on Wed07/15/24 at 1500, For 4 doses, *HIGH ALERT MEDICATION* IVPB Started 07/16/2024 7:34 PM EDT 15 mmol 62.5 mL/hr IVPB Started 07/16/2024 2:26 PM EDT 15 mmol 62.5 mL/hr IVPB Started 07/16/2024 2:40 AM EDT 15 mmol 62.5 mL/hr valACYclovir (VALTREX) tablet 1,000 mg 1,000 mg 3 times daily, oral, First dose on Wed07/19/24 at 2100 Given 07/20/2024 10:16 AM EDT 1,000 mg Given 07/19/2024 9:00 PM EDT 1,000 mg documented in this encounter Active and Recently Administered Medications Times are shown in EDT. Scheduled Medication Order 07/18/2024 07/19/2024 07/20/2024 acyclovir (ZOVIRAX) 690 mg in sodium chloride 0.9 % (NS) 100 mL IVPB (CANCELED) 690 mg Every 8 hours scheduled, intravenous, at 100 mL/hr, First dose on Wed07/15/24 at 1400 0406 (IVPB Started - Provider: Simona Luna RN)0513 (IVPB Stopped - Provider: Simona Luna RN)1209 (IVPB Started - Provider: Nabila Springer RN)1309 (IVPB Stopped - Provider: Nabila Springer RN)2149 (IVPB Started - Provider: Simona Luna RN)2309 (IVPB Stopped - Provider: Simona Luan, RN) 0504 (IVPB Started - Provider: Simona Luna, RN)0605 (IVPB Stopped - Provider: Simona Luna RN)1527 (IVPB Started - Provider: Nabila Springer RN)1627 (IVPB Stopped - Provider: Nabila Springer RN) albuterol (PROVENTIL) nebulizer solution 2.5 mg (CANCELED) 2.5 mg Every 6 hours (RT), nebulization, First dose on Wed07/12/24 at 2300, RESPIRATORY THERAPY TREATMENT , What is the respiratory therapy Modality? Small volume Nebulization 0415 (Given - Provider: Alfonso Buchanan, TAX RECORD CLERK) atorvastatin (LIPITOR) tablet 10 mg 10 mg Daily, oral, First dose on Wed07/12/24 at 2009, Therapeutic Interchange for Statins. 0913 (Given - Provider: Nabila Springer RN) 0944 (Given - Provider: Nabila Springer RN) 1015 (Given - Provider: Angi Parra, KOKI) busPIRone (BUSPAR) tablet 15 mg 15 mg 3 times daily, oral, First dose on Wed07/12/24 at 2100 0913 (Given - Provider: Nabila Springer RN)1538 (Given - Provider: Nabila Springer RN)2117 (Given - Provider: Simona Luna RN) 0945 (Given - Provider: Nabila Springer RN)1448 (Given - Provider: Yudy Saleem)2200 (Given - Provider: Sally Cloud RN) 1015 (Given - Provider: Angi Parra, KOKI) cyanocobalamin tablet 1,000 mcg 1,000 mcg Daily, oral, First dose on Wed07/12/24 at 2009 0913 (Given - Provider: Nabila Springer RN) 0945 (Given - Provider: Nabila Springer RN) 1015 (Given - Provider: Angi Parra, KOKI) DULoxetine (CYMBALTA) DR capsule 30 mg 30 mg Daily, oral, First dose on Wed07/12/24 at 2009, * DO NOT CRUSH THIS DOSAGE FORM * 0913 (Given - Provider: Nabila Springer RN) 0944 (Given - Provider: Nabila Springer RN) 1015 (Given - Provider: Angi Parra, KOKI) enoxaparin (LOVENOX) syringe 100 mg (CANCELED) 100 mg Every 12 hours scheduled (rounded from 98 mg = 1 mg/kg ? 98 kg), subcutaneous, First dose on Wed07/16/24 at 2100, Do not administer within 12 hours of epidural or lumbar puncture. Look-Alike/Sound-Alike Alert, On hold since Wed07/18/2024 at 1011 until manually unheld 0912 (Given - Provider: Nabila Springer RN)1011 (Held by provider - Provider: Chandra Jose MD)2100 (Hold - Provider: Simona Luna RN - Reason: Per MD Order) 0900 (Automatically Held - Provider: Chandra Jose MD)1901 (Unheld by provider - Provider: Chandra Jose MD) ergocalciferol (DRISDOL) capsule 50,000 Units 50,000 Units Weekly, oral, First dose on Wed07/12/24 at 2009, * DO NOT CRUSH THIS DOSAGE FORM * 0955 (Given - Provider: Nabila Springer RN) gabapentin (NEURONTIN) capsule 100 mg 100 mg 3 times daily, oral, First dose (after last modification) on Wed07/13/24 at 0900 0913 (Given - Provider: Nabila Springer RN)1538 (Given - Provider: Nabila Springer RN)2117 (Given - Provider: Simona Luna RN) 0945 (Given - Provider: Nabila Springer RN)1448 (Given - Provider: Yudy Saleem)2200 (Given - Provider: Sally Cloud RN) 1015 (Given - Provider: Angi Parra, KOKI) lactulose (CHRONULAC) solution 20 g (CANCELED) 20 g 3 times daily, oral, First dose on Wed07/13/24 at 1500 0912 (Given - Provider: Nablia Springer RN) lactulose (CHRONULAC) solution 20 g (CANCELED) 20 g 2 times daily, oral, First dose (after last modification) on Wed07/18/24 at 2100 2121 (Given - Provider: Simona Luna, KOKI) lactulose (CHRONULAC) solution 20 g 20 g Daily, oral, First dose (after last modification) on Wed07/19/24 at 0900 0946 (Given - Provider: Nabila Springer RN) 1016 (Given - Provider: Angi Parra, RN) metoprolol tartrate (LOPRESSOR) tablet 12.5 mg 12.5 mg 2 times daily, feeding tube, First dose on Wed07/18/24 at 1030, Hold for systolic BP < 90 mmHg or for HR < 50 BPM 1007 (Given - Provider: Nabila Springer RN)2122 (Given - Provider: Simona Luna, KOKI) 0945 (Given - Provider: aNbila Springer RN)2130 (Given - Provider: Sally Cloud, KOKI) 1015 (Given - Provider: Angi Parra, KOKI) pomalidomide cap 1 mg (Pt to supply own med) 1 mg Daily (1 capsule), oral, First dose on Wed07/12/24 at 2010, Caution: Recommend wearing chemo gloves during administration. Although these tablets are chewable by the patient, it is not recommended for employees to break or crush. If there is no reasonable alternative, employee should use the closed system pill mat packer. Employees who are , trying to become , or should not handle this medication. Dispose of trace medication (including packaging) in the BLACK waste bin. 0900 (Not Given - Provider: Nabila Springer RN - Reason: Patient/family refused) 0900 (Not Given - Provider: Nabila Springer RN - Reason: Patient/family refused) 0900 (Due) potassium chloride 10 mEq, lidocaine (PF) 10 mg/mL (1 %) 10 mg in sodium chloride 0.9 % (NS) 100 mL IVPB (COMPLETED) at 100 mL/hr, intravenous, Every 1 hour, First dose on Wed07/18/24 at 1100, For 6 doses 1054 (IVPB Started - Provider: Nabila Springer RN)1145 (IVPB Stopped - Provider: Nabila Springer RN)1209 (IVPB Started - Provider: Nabila Springer RN)1259 (IVPB Stopped - Provider: Nabila Springer, RN)1300 (IVPB Started - Provider: Nabila Springer RN)1359 (IVPB Stopped - Provider: Nabila Springer RN)1400 (IVPB Started - Provider: Nabila Springer RN)1459 (IVPB Stopped - Provider: Nabila Springer RN)1500 (IVPB Started - Provider: Nabila Springer RN)1559 (IVPB Stopped - Provider: Nabila Springer RN)1605 (IVPB Started - Provider: Nabila Springer RN)1705 (IVPB Stopped - Provider: Nabila Springer RN) rifAXIMin (XIFAXAN) tablet 550 mg 550 mg 2 times daily, oral, First dose on Wed07/14/24 at 2100 0913 (Given - Provider: Nabila Springer RN)2118 (Given - Provider: Simona Luna, KOKI) 0944 (Given - Provider: Nabila Springer RN)2200 (Given - Provider: Sally Cloud RN) 1016 (Given - Provider: Angi Parra, KOKI) valACYclovir (VALTREX) tablet 1,000 mg 1,000 mg 3 times daily, oral, First dose on Wed07/19/24 at 2100 2100 (Given - Provider: Sally Cloud, KOKI) 1016 (Given - Provider: Angi Parra, KOKI) Continuous Medication Order 07/18/2024 07/19/2024 07/20/2024 dextrose 5 % infusion (CANCELED) 50 mL/hr Continuous, intravenous, Starting on 07/16/24 at 1000 1546 (New Bag - Provider: Nabila Springer RN) 0835 (Stopped - Provider: Nabila Springer RN) diltiazem 100 mg in sodium chloride 0.9 % (NS) MBP 100 mL infusion (CANCELED) 2-15 mg/hr Continuous (2-15 mL/hr), intravenous, Starting on 07/16/24 at 1530 0408 (New Bag - Provider: Simona Luna, KOKI)0931 (Rate/Dose Change - Provider: Nabila Springer RN)1023 (Stopped - Provider: Nabila Springer RN) PRN Medication Order 07/18/2024 07/19/2024 07/20/2024 acetaminophen (TYLENOL) tablet 1,000 mg 1,000 mg Every 6 hours PRN, oral, fever greater than or equal to 38C, mild pain (1-3), headache, Starting on Wed07/12/24 at 2013, Recommended maximum dose of acetaminophen is 4000 mg from all sources in 24 hours dextrose 50% (D50W) injection 25 g 25 g As needed, intravenous, low blood glucose (specify value in prn comments), less than 41 mg/dL or 41-69 mg/dL and unable to take PO, Starting on 07/15/24 at 1101, For 2 doses, Repeat blood glucose every 15 minutes until blood glucose greater than 70 mg/dL. Call Provider if not resolved after 2 treatments Repeat BS in 1 hour, retime for 1 hour after blood sugar greater than 70 mg/dL If less than 41: Repeat Finger stick within 5 minutes with same machine Send serum glucose level: Do not wait on lab to treat docusate sodium (COLACE) capsule 100 mg 100 mg 2 times daily PRN, oral, constipation, Starting on Wed07/12/24 at 2013, Bowel Regimen - for prevention of constipation. fentaNYL PF (SUBLIMAZE) injection (COMPLETED) IMG once as needed, intravenous, Starting on Wed07/18/24 at 1416, For 1 dose, Intra-op 1416 (Given - Provider: Yael Newman RN) glucagon injection 1 mg 1 mg As needed, intraMUSCULAR, low blood glucose (specify value in prn comments), For Patients without IV access and blood glucose 41-69 mg/dL AND unable to take PO OR Less than 41 mg/dL, Starting on 07/15/24 at 1101, For 2 doses, Caution: glucagon . Roll patient on their side when administering to prevent aspiration. Call Provider if not resolved after 2 treatments Repeat BS in 1 hour, retime for 1 hour after blood sugar greater than 70 mg/dL glucose chewable tablet 16 g 16 g As needed, oral, low blood glucose (specify value in prn comments), 41-69 mg/dL, Starting on 07/15/24 at 1101, For 3 doses, For Patients who can take oral AND blood glucose 41-69 mg/dL Give 4 Tabs every 15 minutes. Recheck blood glucose every 15 minutes and repeat 15 grams of carbohydrates until blood glucose is above 70 mg/dL. Give Meal or Snack Call Provider if not resolved after 3 treatments Repeat BS in 1 hour, retime for 1 hour after blood sugar greater than 70 mg/dL hydrALAZINE (APRESOLINE) injection 5 mg 5 mg Every 6 hours PRN, intravenous, hypertension (sbp greater than 160), Starting on Wed07/12/24 at 2013, Hold if SBP < 100 mmHg, DBP < 50 mmHg, or patient is on pressor. Look-alike/Sound-alike medication HYDROmorphone (DILAUDID) injection 0.5 mg 0.5 mg Every 4 hours PRN, intravenous, severe pain (7-10), Starting on Wed07/14/24 at 1322 ipratropium-albuteroL (DUO-NEB) 0.5 mg-3 mg(2.5 mg base)/3 mL nebulizer solution 3 mL 3 mL Every 6 hours PRN, nebulization, wheezing, Starting on Wed07/18/24 at 0814, RESPIRATORY THERAPY TREATMENT Protect from Light, What is the respiratory therapy Modality? Small volume Nebulization LORazepam (ATIVAN) tablet 1 mg 1 mg Every 4 hours PRN, oral, anxiety, agitation, Starting on Wed07/12/24 at 2013 meclizine (ANTIVERT) tablet 25 mg 25 mg 4 times daily PRN, oral, dizziness, Starting on Wed07/12/24 at 2000 melatonin tablet 5 mg 5 mg Every Night PRN, oral, insomnia, Starting on Wed07/12/24 at 2013 midazolam (PF) (VERSED) injection (COMPLETED) IMG once as needed, intravenous, Starting on Wed07/18/24 at 1416, For 1 dose, Intra-op 1416 (Given - Provider: Yael Newman RN) ondansetron (ZOFRAN-ODT) disintegrating tablet 4 mg(Linked Group 1) 4 mg Every 8 hours PRN, oral, nausea, vomiting, Starting on Wed07/12/24 at 2012, 1st line. If inadequate response within 60 minutes, proceed to next-line agent for same PRN reason or contact provider if no further options ordered. ondansetron PF (ZOFRAN) injection 4 mg(Linked Group 1) 4 mg Every 8 hours PRN, intravenous, nausea, vomiting, Starting on Wed07/12/24 at 2012, Give IV if patient is unable to take orally. 1st line If inadequate response within 60 minutes, proceed to next-line agent for same PRN reason or contact provider if no further options ordered. For IV push, give over 2 - 5 minutes. oxyCODONE (ROXICODONE) immediate release tablet 10 mg 10 mg Every 4 hours PRN, oral, moderate pain (4-6), severe pain (7-10), Starting on Wed07/12/24 at 2001, Look-alike/Sound-alike medication sodium chloride flush 10 mL 10 mL As needed, intravenous, line care, Starting on Wed07/12/24 at 1604 Linked Groups Order Group 1: ondansetron (ZOFRAN-ODT) disintegrating tablet 4 mgJump to med 4 mg Every 8 hours PRN, oral, nausea, vomiting, Starting on Wed07/12/24 at 2012, 1st line. If inadequate response within 60 minutes, proceed to next-line agent for same PRN reason or contact provider if no further options ordered. Or ondansetron PF (ZOFRAN) injection 4 mgJump to med 4 mg Every 8 hours PRN, intravenous, nausea, vomiting, Starting on Wed07/12/24 at 2012, Give IV if patient is unable to take orally. 1st line If inadequate response within 60 minutes, proceed to next-line agent for same PRN reason or contact provider if no further options ordered. For IV push, give over 2 - 5 minutes. documented in this encounter Care Teams Manager Architecture Relationship Specialty Start Date End Date Clifford Newell PA [address] [place] [address] [place] [id number] PCP - General Physician Virology Teacher 10/14/23 documented as of this encounter
--- OUTSIDE RECORDS SUMMARY | 2024-08-03 16:56 | XMS_ITS | Encounter Summary ---
Author Organization [employer] Address [address] [place] [address] Care Team Providers Care Shirt Presser Name Role Phone Clifford Newell Primary Care Provider + [phone] Reason for Visit * Reason Comments Follow-up Multiple myeloma wit hout remission Encounter Details Date Type Department Care Team (Late st Contact Info) Description 07/21/2024 11:00 AM EDT Office Visit [facility] - [facility] [address] [place] [address] [address] [place] [address] Caleb Pacheco MD [address] [facility] [address] [place] [address] Multiple myeloma without remission (HCC) Social History Tobacco Use Types Packs/Day Years [...] Do you speak a language other than Nicaraguan at [facility]? No 07/12/2024 Do you want help [...] EDT Inhaled Oxygen Concentration - - Weight - - Height - - Body Mass Index - - documented in this encounter Progress Notes * Caleb Pacheco MD - 07/21/2024 11:00 AM EDT Chief Complaint: History of Present Illness: Francy Bailey is a 64 y.o. female who presents today for follow up of multiple myeloma. She has had a very difficult time the last month or so. Today she is confused. She has fallen and shehas an abrasion on her forehead. She has been hospitalized for several days. She is pancytopenic. She underwent a bone marrow biopsy. She is in a rehabilitation center right now. She denies any bone pain. No other additional concerns 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HCC) Chronic low back pain DVT (deep venous thrombosis) (HCC) History of shingles 12/2019 Hypertension Multiple myeloma (HCC) Peripheral neuropathy Pulmonary embolism (HCC) Past Surgical History: Procedure Laterality Date BONE MARROW BIOPSY TOTAL KNEE ARTHROPLASTY Cancer History: Oncology History Overview Note Diagnosis of multiple myeloma. A. Bone marrow demonstrates 60% plasma cells. B. Elevation of IgA to 5362 mg with suppression of other immunoglobulins. M spike of 4.9 grams at diagnosis C. Lytic lesions on x-ray. D. Anemia and hypercalcemia at presentation. E. Treatment with Velcade, Revlimid, and dexamethasone 04/26/2019 - 09/27/2019. F. Revlimid maintenance therapy 10/09-11/09. G. Evaluation for autologous transplant demonstrated still with 15 to 20% plasma cells on bone marrow biopsy. H. Darzalex, dexamethasone, and Velcade 12/07-03/09. I. S/p autologous transplantation 07/06/2020. J. Initiation of maintenance Revlimid 10/09. K. Indication of recurrence with elevation of her M spike 04/10. L. Darzalex and pomalidomide initiated 11/03/2022, Pomalyst dose reduced for severe neutropenia. M. Pomalidomide stopped 04/06/2023 cytopenias N. Darzalex stopped 02/17/2024 progression O. Pomalidomide 1 mg with Kyprolis 02/29/2024- P. Stopped pomalidomide due to cytopenias 04/10/2024 Q. Carfilzomab 02/29/2024- 05/2024. Progression and neuropathy Multiple myeloma without remission (HCC) 06/16/2022 Initial Diagnosis Multiple myeloma without remission (HCC) 11/03/2022 - 01/11/2024 Chemotherapy Treatment Summary Treatment goal Palliative Plan Name [facility] Multiple Myeloma - daratumumab (Darzalex) IV d1,8,15,22 fb D1,15 fb d1 + pomalidomide(Pomalyst) PO d1-21 every 28 days Status Inactive Start Date 11/03/2022 End Date 01/11/2024 Provider Caleb Pacheco MD Chemotherapy pomalidomide 4 mg Cap, 4 mg, Oral, Daily, 1 of 1 cycle, Start date: --, End date: -- fzlpmeegazd-ilvfltxhpbant-lzym (DARZALEX FASPRO) 1,800 mg-30,000 unit/15 mL subcutaneous injection 1,800 mg, 1,800 mg, Subcutaneous, Once, 15 of 24 cycles Administration: 1,800 mg (11/03/2022), 1,800 mg (11/10/2022), 1,800 mg (12/01/2022), 1,800 mg (12/15/2022), 1,800 mg (12/22/2022), 1,800 mg (01/12/2023), 1,800 mg (02/02/2023), 1,800 mg (02/16/2023), 1,800 mg(06/01/2023), 1,800 mg (10/19/2023), 1,800 mg (12/29/2022), 1,800 mg (01/20/2023), 1,800 mg (03/02/2023), 1,800 mg (03/16/2023), 1,800 mg (04/06/2023), 1,800 mg (04/20/2023), 1,800 mg (05/04/2023), 1,800 mg (05/18/2023), 1,800 mg (06/29/2023), 1,800 mg (07/27/2023), 1,800 mg (08/24/2023), 1,800 mg (09/21/2023), 1,800 mg (11/16/2023), 1,800 mg (12/14/2023), 1,800 mg (01/11/2024) 02/29/2024 - 06/13/2024 Chemotherapy Treatment Summary Treatment goal Palliative Plan Name [facility] Multiple Myeloma - carfilzomib (Kyprolis) 20/56 days 1,8,15 + pomalidomide (Pomalyst)1mg PO days 1-21 + Dexamethasone weekly every 28 days Status Inactive Start Date 02/29/2024 End Date 06/13/2024 Provider Caleb Pacheco MD Chemotherapy carfilzomib 44 mg in dextrose 5% (D5W) 132 mL chemo infusion, 44 mg, intravenous, Once, 4 of 12 cycles Dose modification: 120 mg (original dose 123.2 mg, Cycle 1, Reason: Other (See Comments)) Administration: 44 mg (02/29/2024), 120 mg (03/07/2024), 120 mg (03/21/2024), 120 mg (03/28/2024), 120 mg(04/11/2024), 120 mg (04/24/2024), 120 mg (05/02/2024), 120 mg (05/12/2024), 120 mg (05/26/2024), 120 mg (06/06/2024), 120 mg (06/13/2024) 07/07/2024 - Chemotherapy Treatment Summary Treatment goal Palliative Plan Name [facility] Multiple Myeloma - elotuzumab (Empliciti) IV d1,8,15,22 + pomalidomide (Pomalyst) PO d1-21, fb elotuzumab IV d1 + pomalidomide PO d1-21, every 28 days Status Active Start Date 07/07/2024 (Planned) End Date 02/02/2025 (Planned) Provider Caleb Pacheco MD Chemotherapy pomalidomide 4 mg cap, 4 mg, oral, Daily, 0 of 7 cycles elotuzumab (EMPLICITI) 1,000 mg in sodium chloride 0.9 % (NS) 290 mL infusion, 1,000 mg (original dose ), intravenous, Once, 0 of 8 cycles Dose modification: 1,000 mg (Cycle 1, Reason: Other (See Comments)) Allergies: Ampicillin, Penicillin, Codeine, Indomethacin, and Morphine Medications: Current Outpatient Medications on File Prior to Visit Medication Sig Dispense Refill busPIRone (BUSPAR) 15 MG tablet Take 1 tablet (15 mg total) by mouth 3 (three) times daily. 0 cyanocobalamin 1000 MCG tablet Take 1 tablet (1,000 mcg total) by mouth daily. 0 DULoxetine (CYMBALTA) 30 MG capsule Take 1 capsule (30 mg total) by mouth daily. 30 tablet 5 gabapentin (NEURONTIN) 100 MG capsule Take 1 capsule (100 mg total) by mouth 3 (three) times daily for 2 days. Max Daily Amount: 300 mg 6 capsule 0 lactulose (CHRONULAC) 20 gram/30 mL solution Take 30 mLs (20 g total) by mouth daily for 5 days. 150 mL 0 meclizine (ANTIVERT) 25 mg tablet Take 1 tablet (25 mg total) by mouth 4 (four) times daily as needed. 60 tablet 5 oxyCODONE (ROXICODONE) 10 MG tablet Take 1 tablet (10 mg total) by mouth every 4 (four) hours as needed (Pain). Max Daily Amount: 60 mg 4 tablet 0 valACYclovir (VALTREX) 1000 MG tablet Take 1 tablet (1,000 mg total) by mouth 3 (three) times dailyfor 9 days. 0 ergocalciferol (DRISDOL) 1,250 mcg (50,000 unit) capsule Take 1 capsule (50,000 Units total) by mouth once a week. (Patient not taking: Reported on 07/21/2024.) 4 capsule 0 metoprolol tartrate (LOPRESSOR) 25 MG tablet Take 0.5 tablets (12.5 mg total) by mouth 2 (two) times daily. (Patient not taking: Reported on 07/21/2024.) 0 pomalidomide (Pomalyst) 1 mg cap Take 1 capsule (1 mg total) by mouth daily. (Patient not taking: Reported on 07/21/2024.) 21 capsule 0 rifAXIMin (XIFAXAN) 550 mg tab Take 1 tablet (550 mg total) by mouth 2 (two) times daily for 30 days. (Patient not taking: Reported on 07/21/2024.) 60 tablet 0 simvastatin (ZOCOR) 10 MG tablet Take 1 tablet (10 mg total) by mouth nightly. (Patient not taking:Reported on 07/21/2024.) 0 Current Facility-Administered Medications on File Prior to Visit Medication Dose Route Frequency Provider Last Rate Last Admin sodium chloride 0.9 % infusion 2,000 mL intravenous Continuous Caleb Pacheco MD Review of Systems: Review of Systems Psychiatric/Behavioral: Positive for confusion. All other systems reviewed and are negative. Vitals: Vitals: 07/21/24 1044 BP: (!) 146/99 Pulse: 120 Resp: 18 Temp: 97.9 ??F (36.6 ??C) SpO2: 96% Physical Exam: Physical Exam Vitals reviewed. Constitutional: Appearance: Normal appearance. HENT: Head: Normocephalic and atraumatic. Mouth/Throat: Mouth: Mucous membranes are moist. Pharynx: Oropharynx is clear. Eyes: Extraocular Movements: Extraocular movements intact. Conjunctiva/sclera: Conjunctivae normal. Pupils: Pupils are equal, round, and reactive to light. Cardiovascular: Rate and Rhythm: Normal rate and regular rhythm. Pulses: Normal pulses. Heart sounds: Normal heart sounds. Pulmonary: Effort: Pulmonary effort is normal. Breath sounds: Normal breath sounds. Abdominal: General: Abdomen is flat. Bowel sounds are normal. Palpations: Abdomen is soft. Musculoskeletal: General: Normal range of motion. Cervical back: Normal range of motion and neck supple. Skin: Comments: Patient on the forehead and large ecchymosis in the left hand Neurological: Mental Status: She is alert. She is disoriented. Comments: Is confused this specifically encephalopathic Relevant Results: No results displayed because visit has over 200 results. Admission on 07/04/2024, Discharged on 07/04/2024 Component Date Value Ref Range Status WBC 07/04/2024 5.1 4.0 - 10.0 K/??L Final RBC 07/04/2024 2.41 (L) 3.93 - 5.22 M/??L Final Hemoglobin 07/04/2024 8.0 (L) 11.2 - 15.7 GM/DL Final Hematocrit 07/04/2024 26.0 (L) 34.1 - 44.9 % Final MCV 07/04/2024 108 (H) 79 - 95 fL Final MCH 07/04/2024 33.2 (H) 25.6 - 32.2 pg Final MCHC 07/04/2024 30.8 (L) 32.2 - 35.5 GM/DL Final RDW 07/04/2024 13.5 11.7 - 14.4 % Final Platelets 07/04/2024 156 140 - 375 K/CU MM Final MPV 07/04/2024 11.2 9.4 - 12.3 fL Final % Neutros 07/04/2024 62 34 - 71 % Final % Lymphs 07/04/2024 22 19 - 52 % Final % Monos 07/04/2024 10 5 - 13 % Final % Eos 07/04/2024 0 (L) 1 - 6 % Final % Baso 07/04/2024 0 0 - 1 % Final NRBC Absolute 07/04/2024 0.05 (H) 0 - 0.012 K/ul Final # Neutros 07/04/2024 3.14 1.56 - 6.13 K/??L Final # Lymphs 07/04/2024 1.14 (L) 1.18 - 3.74 K/??L Final # Monos 07/04/2024 0.53 0.24 - 0.86 K/??L Final # Eos 07/04/2024 <0.03 (L) 0.04 - 0.36 K/??L Final # Baso 07/04/2024 <0.03 0.01 - 0.08 K/??L Final Immature Granulocytes-Relative 07/04/2024 5.10 (H) 0.01 - 0.43 % Final # IG 07/04/2024 0.26 (H) 0.00 - 0.03 K/uL Final Lactic Acid Level (mmol/L) 07/04/2024 1.3 0.4 - 2.0 mmol/L Final If a Lactic Acid Level with Reflex if Indicated result is greater than 2.0, a Lactic Acid Level will be ordered to be collected 2 hours after the original collection time. Sodium 07/04/2024 134 (L) 136 - 146 meq/L Final Potassium 07/04/2024 3.0 (L) 3.5 - 5.1 meq/L Final Chloride 07/04/2024 101 (L) 102 - 112 meq/L Final CO2 07/04/2024 19 (L) 21 - 32 meq/L Final Calcium 07/04/2024 9.2 8.4 - 10.1 mg/dL Final Glucose 07/04/2024 101 74 - 106 mg/dL Final BUN 07/04/2024 15 7 - 22 mg/dL Final Creatinine 07/04/2024 1.01 0.55 - 1.02 mg/dL Final BUN/Creatinine 07/04/2024 15 8 - 20 Final Albumin 07/04/2024 1.8 (L) 3.4 - 5.0 g/dL Final Alkaline Phosphatase 07/04/2024 57 27 - 136 U/L Final ALT 07/04/2024 7 (L) 13 - 56 U/L Final AST 07/04/2024 23 5 - 37 U/L Final Total Bilirubin 07/04/2024 0.8 0.2 - 1.2 mg/dL Final Protein, Total 07/04/2024 9.9 (H) 6.4 - 8.2 gm/dL Final Anion Gap 07/04/2024 17 9 - 20 Final A/G Ratio 07/04/2024 0.2 (L) 1.1 - 2.5 Final Globulin 07/04/2024 8.1 (H) 1.5 - 4.5 g/dL Final Osmolality Calc 07/04/2024 269.2 Final eGFR (mL/min/1.73m2) 07/04/2024 >60 >=60 mL/min/1.73m2 Final ESTIMATED GFR IS NOT ACCURATE CREATININE CLEARANCE IN PREDICTING GLOMERULAR FILTRATION RATE. ESTIMATED GFR IS NOT APPLICABLE FOR DIALYSIS PATIENTS. Lipase 07/04/2024 24 13 - 75 U/L Final TSH 07/04/2024 0.900 0.358 - 3.740 uIU/mL Final Color, UA 07/04/2024 Yellow Final Clarity, UA 07/04/2024 Turbid (A) Clear Final Specific [place], UA 07/04/2024 1.049 (H) 1.005 - 1.030 Final pH, UA 07/04/2024 5.5 (L) 6.0 - 8.0 Final Leukocytes, UA 07/04/2024 500 Marta/uL (A) Negative Final Nitrite, UA 07/04/2024 Negative Negative Final Protein, UA 07/04/2024 1+ (A) Negative Final Glucose, UA 07/04/2024 Normal Normal Final Ketones, UA 07/04/2024 1+ (A) Negative Final Bilirubin, UA 07/04/2024 Negative Negative Final Blood, UA 07/04/2024 Trace (A) Negative Final Urobilinogen, UA 07/04/2024 Normal Normal Final Specimen Source 07/04/2024 Urine, Clean Catch Final SARS-COV2/RT-PCR 07/04/2024 Negative Negative Final Magnesium 07/04/2024 2.2 1.5 - 2.4 mg/dL Final WBC, UA 07/04/2024 51-100 (A) None Seen /HPF Final RBC, UA 07/04/2024 3-5 (A) None Seen /HPF Final Bacteria, UA 07/04/2024 1+ (A) None Seen, Trace Final Mucus 07/04/2024 2+ (A) None Seen Final SQUAMOUS EPITHELIAL 07/04/2024 0-2 (A) None Seen /HPF Final Result 07/04/2024 10-100,000 CFU Klebsiella pneumoniae (A) Final CT BIOPSY SITE - BONE MARROW Result Date: 07/18/2024 CT GUIDED BONE MARROW BIOPSY HISTORY: Severe anemia and thrombocytopenia. ATTENDING PHYSICIAN: Dr. Garrison PHYSICIAN LAPEL PADDER: Serge Castillo PA-C PROCEDURE: This study was performed with techniques to keep radiation doses as low as reasonably achievable, (ALARA). Individualized dose reduction techniques using automated exposure control or adjustment of mA and/or kV according to the patient size wereemployed. After informed consent was obtained and a [...] and left the department in good condition. Status post CT guided bone marrow biopsy without immediate complication. PROCEDURAL SEDATION: 1 mg of IV Versed and 50 mcg of Fentanyl were administered. Continuous vital sign monitoring was used. AnRN was present during the sedation process. Overall sedation time was 15 minutes. Images reviewed, interpreted, and dictated by Dr. Cristi Garrison. Transcribed by Serge Castillo PA-C. ECHO COMPLETE (DOPPLER / COLOR) W OR WO CONTRAST Result Date: 07/17/2024 TRANSTHORACIC ECHOCARDIOGRAPHY REPORT Demographics Patient Name: FREDY STERLING : 1960 [place] Medical Record [id number] Age: 64 year(s) Number: Corporate ID Number: [id number] Gender Female Helicopter Pilot Instructor: Amina Fiore RDCS Height: 70 inches Referring Physician: TREY VALDES Weight: 216 pounds Interpreting RONEY CARRANZA MD BMI: 30.99 kg/m^2 Physician: Date of Service: 07/17/2024 Blood 132/67 mmHg Pressure: Room Number: 3155 Type of Study: TTE procedure: ECHO COMPLETE (DOPPLER / COLOR) W OR WO CONTRAST. Patient Status: Routine IP Study Location: [facility] Quality: Adequate visualization History/Tech Notes: Indication: altered mental status R40.4 Impression: ###################################### Mild left ventricular hypertrophy. Normal left ventricular systolic function with visually estimated ejection fraction 60% +/- 5%. Grade 1 diastolic dysfunction. Mild left atrial enlargement. Mild-moderate mitral regurgitation. ############################ ########## Measurements Summary: LVEDd: 5.31 cm LVESd: 3.55 cm IVSEd: 0.75 cm AO Root:3.24 cm LVPWd: 1.22 cm Contractility Score Normal Left Ventricular contractility was noted. LV regional wall motion: (0-Not visualized 1-Normal 2- Hypokinesis 3-Akinesis 4-Dyskinesis 5-Aneurysm) Left Ventricle Robles-wave: 1.09 Peak A-wave: 1.07 m/s E/A ratio: 1.01 m/s Volume [id number] LV length: 8.57 cm mlVolume vbrhawix72.64 ml LVOT diameter: 2.02 cm Mild left [...] LA dimension: 3.8 cm LA volume:84.1 ml LA/Aorta:1.17 Abnormal left atrial volume index 38.94 ml/m2. Intact atrial septum. No atrial mass or thrombus. Right Atrium RA area: 19.39 cm^2 Abnormal right atrial size. Intact atrial septum. No atrial massor thrombus. Mitral Valve Deceleration time: MR velocity: 5.35 Mean gradient: 88.15 175.46 msec m/smmHg MR VTI: 184.09 cm Thickened mitral valve leaflets. Mitral valve annulus calcification. Mild-moderate mitral regurgitation. Unable to obtain PISA ERO. No mitral stenosis. No masses or vegetationsseen. Aortic Valve Peak velocity: 1.42 m/s LVOT VTI: 27.44 cm Peak gradient: 8.08 mmHg Thickend free edges of the aortic valve leaflets. No aortic regurgitation. No aortic stenosis. No masses or vegetations seen. Tricuspid Valve TR velocity: 1.83 m/s TR gradient: 13.3298 mmHg Estimated RAP: 8 mmHg R VSP: 21.33 mmHg Structurally normal tricuspid valve. Mild tricuspid regurgitation. No tricuspid stenosis. No masses or vegetations seen. Pulmonic Valve Acceleration time: 148.43 msec PASP: 21.33 mmHgStructurally normal pulmonic valve. Mild pulmonic regurgitation. No pulmonic stenosis. No masses or vegetations seen. Great Vessels Aorta Aortic Root: 3.24 cm LVOT Diameter: 2.02 cm Visualized aorta is normal. Normal aortic root. No evidence of dissection. Dilated IVC with partial collapse. Borderline elevated central venous pressure (8-12mmHg). Pericardium / Pleura No pericardial effusion. ------ XR chest AP portable Result Date: 07/16/2024 PORTABLE CHEST; HISTORY: Precordial chest pain. COMPARISON: July 12, 2024. FINDINGS: The heart is stable in size. There are low lung volumes with perihilar vascular enlargement and crowding. Thereis no pneumothorax. Stable exam. Images reviewed, interpreted, and dictated by Dr. Zac Ordoñez. Transcribed by JENNIFER Preston. XR KUB PORTABLE Result Date: 07/15/2024 SINGLE VIEW ABDOMEN HISTORY: Corpak placement. ABDOMEN: Single view of the abdomen demonstrates a nonobstructive bowel gas pattern. No abnormal calcifications are identified. There is a feeding tube with the tip in the stomach. Feeding tube tip in the stomach. Images reviewed, interpreted, and dictated by Dr. Zac Ordoñez.Transcribed by Stacy Marte PA-C. Ultrasound liver Result Date: 07/14/2024 ULTRASOUND OF THE LIVER HISTORY: Elevated [...] Common bile duct measures 9.6 mm, which isabnormally dilated, but no such biliary ductal dilation was seen on the recent CT. If (and only if)there is clinical evidence of jaundice, MRCP is recommended for further evaluation. The portal veinis a normal 11 mm in diameter, patent and flowing toward the liver. Hepatic artery is patent. Normal-appearing portal vein. Apparent extrahepatic biliary ductal dilation, of uncertain etiology or significance, as discussed above. Images reviewed, interpreted and dictated by Dr. Bacilio Patel MD XR chest AP portable Result Date: 07/13/2024 [...] electronically signed by Mert Knight MD Voice sausage machine operator technology (Power mobile mumibe) is used for the dictation of this [...] Mert Knight. Transcribed by Silvia Pablo PA-C. Cancer Staging No matching staging information was found for the patient. Plan: Overall she is having a rapid deterioration in her bone marrow demonstrated 80% plasma cells.Her condition is such that I think she should be placed in hospice and her son was present and agreed with that. She is presently in a rehabilitation center. Once she is unable to be rehabilitated she will be sent to the hospital and then perhaps more appropriate placement will be under taken. I amnot certain what else to do. I do know she is inappropriate for continued chemotherapy Signed: Electronically signed by Caleb Pacheco MD 07/21/24 5:27 PM EDT MARILEE Muñoz documented in this encounter Plan of Treatment Not on file documented as of this encounter Visit Diagnoses Diagnosis Multiple myeloma without remission (HCC) documented in this encounter Care Teams Shirt Presser Relationship Specialty Start Date End Date Clifford Newell PA [address] [place] [address] [place] Ling [phone] PCP - General Physician Environmental Studies Professor 10/14/23 documented as of this encounter
--- OUTSIDE RECORDS SUMMARY | 2024-08-03 16:57 | XMS_ITS | Encounter Summary ---
Author Organization [employer] Address [address] [place] [address] Care Team Providers Care Pin Ticket Machine Operator Name Role Phone Clifford Newell Primary Care Provider + [phone] Encounter Details Date Type Department Care Team (Late st Contact Info) Description 06/16/2024 Orders Only [facility] [address] [place] [address] Caleb Pacheco MD [address] [facility] [address] [place] [address] Social History Tobacco Use Types Packs/Day Years Used Date Smoking Tobacco: Never Smokeless Tobacco: Never Alcohol Use Standard Drinks/Week Comments Never 0 (1 standard drink = 0.6 oz pur e alcohol) Interpersonal Safety Answer Date Record ed Family or friends hurt you Not on file 10/05 Family or friends insult you Not on file Family or friends threaten you Not on file 0 10/05/2023 Family or friends scream or curse at you Not on file 10/05/2023 Housing Stability Answer Date Recorded Living situation today Not on file Living situation problems Not on file 2023 Food Insecurity Answer Date Recorded Food run out past 12 months Not on file 09/20 Food did not last past 12 months Not on file 10/05/2023 Employment Answer Date Recorded Help finding and keeping a job Not on file 0 10/05/2023 Family and Community Support Answer Baudilio e Recorded Help with Day to Day Activities Not on file 10/05/2023 Feeling Lonely or Isolated Not on file 10/05 Educational Attainment Answer Date Kulwant rded Speak language other than Croatian at home Not on file 10/05/2023 Want help with school or training Not on file 10/05/2023 Depression Answer Date Recorded PHQ-2 Risk Not on file 10/05/2023 Disabilities Answer Date Recorded Difficulty concentrating Not on file 024 Difficulty doing errands alone Not on file 0 10/05/2023 Substance Use Answer Date Recorded Used prescription meds for non-medical reasons N ot on file 10/05/2023 Used illegal drugs past 12 months Not on file 10/05/2023 Comments No Sex and Gender Information Value Date Recorded Sex Assigned at Not on file Legal Sex Female 10:12 AM CDT Gender Identity Not on file Sexual Orientation Not on file documented as of this encounter Plan of Treatment Not on file documented as of this encounter Visit Diagnoses Not on filedocumented in this encounter Care Teams Pin Ticket Machine Operator Relationship Specialty Start Date End Date Clifford Newell PA [address] [place] [address] Dr [place]illo, [place] [phone] PCP - General Physician Oil Recovery Unit Operator 10/14/23 documented as of this encounter
--- OUTSIDE RECORDS SUMMARY | 2024-08-03 16:57 | XMS_ITS | Encounter Summary ---
Author Organization [employer] Address [address] [place] [address] Care Team Providers Care Master Control Operator Name Role Phone Clifford Newell Primary Care Provider + [phone] Encounter Details Date Type Department Care Team (Latest Contact Info) Description 06/06/2024 Travel Social History Tobacco Use Types Packs/Day [...] Date Kulwant rded Speak language other than Czech at home Not on file 10/05/2023 Want [...] on filedocumented in this encounter Care Teams Master Control Operator Relationship Specialty Start Date End Date Clifford Newell PA [address] [place] [address] [place] [phone] PCP - General Physician Slicing Machine Feeder 10/14/23 documented as of this encounter
--- OUTSIDE RECORDS SUMMARY | 2024-08-03 16:57 | XMS_ITS | Encounter Summary ---
Author Organization [employer] Address [address] [place] [address] Care Team Providers Care Vice President Biostatistics Name Role Phone Clifford Newell Primary Care Provider + [phone] Encounter Details Date Type Department Care Team (Late st Contact Info) Description 07/07/2024 Orders Only [facility] [address] [place] [address] Frank Castanon, PharmD BCPS Social History Tobacco Use Types Packs/Day Years [...] Date Kulwant rded Speak language other than Citizen [place] at home Not on file 10/05/2023 Want [...] on filedocumented in this encounter Care Teams Vice President Biostatistics Relationship Specialty Start Date End Date Clifford Newell PA [address] [place] [address] [place] [phone] PCP - General Physician Surface Logging Systems Logger 10/14/23 documented as of this encounter
--- OUTSIDE RECORDS SUMMARY | 2024-08-03 16:57 | XMS_ITS | Encounter Summary ---
Author Organization [employer] [facility] Address [address] [place] [address] Care Team Providers Care Commercial Plumber Name Role Phone Clifford Newell Primary Care Provider + [phone] Encounter Details Date Type Department Care Team (Late st Contact Info) Description 07/11/2024 Orders Only [facility] [address] [place] [address] Caleb Pacheco MD [facility] [address] [place] [address] Social History Tobacco Use Types Packs/Day Years Used Date Smoking Tobacco: Never Smokeless Tobacco: Never Alcohol Use Standard Drinks/Week Comments Never 0 (1 standard drink = 0.6 oz pur e alcohol) Utilities Answer Date Recorded In the past 12 months, has t he electric, gas, oil, or water [employer] threatened to shut off services in your [...] Do you speak a language other than [place] at [facility]? No 07/12/2024 Do you [...] on filedocumented in this encounter Care Teams Commercial Plumber Relationship Specialty Start Date End Date Clifford Newell PA [address] [place] [address] [place] [address] PCP - General Physician Railway Engineer 10/14/23 documented as of this encounter
--- OUTSIDE RECORDS SUMMARY | 2024-08-03 16:57 | XMS_ITS | Encounter Summary ---
Author Organization [facility] Address [address] [place] [address] Care Team Providers Care Chromosomal Disorders Counselor Name Role Phone Clifford Newell Primary Care Provider + [phone] Reason for Visit * Reason Comments Chemotherapy * Episode Based Medication (Routine) - Closed Specialty Diagnoses / Procedures Referred By Ana Paula anne Referred To Contact Diagnoses Multiple myeloma without remission (HCC) Procedures NJ GRANISETRON HCL INJECTION NJ INJECTION, CARFILZOMIB, 1 MG Caleb Pacheco MD [address] [place] [address] Phone: tel: fax: [facility] [address] [place] [address] Phone: tel: fax:[phone] Referral ID Status Reason Start Date Expiration Date Visits Re quested Visits Authorized [id number] Closed 02/17/2024 02/17/2025 1 193 Encounter Details Date Type Department Care Team (Late st Contact Info) Description 06/13/2024 2:15 PM EDT Infusion [facility] [address] [place] [address] Caleb Pacheco MD [address] [place] [address] Multiple myeloma without remission (HCC) (Primary [...] Date Kulwant rded Speak language other than Danish at home Not on file 10/05/2023 Want [...] as of this encounter Progress Notes * Alma Valladares RN - 06/13/2024 2:15 PM EDT Patient tolerated treatment well. IV was removed and intact. Patient was discharged home in stable condition. documented in this encounter Plan of Treatment Not on file documented as of this encounter Procedures Procedure Name Priority Date/Time Associated Diagnosis Comments IMMUNOFIX ELECTROPHORESIS BILL(SENDOUT) Routine 06/13/2024 3:45 PM [...] PM EDT Multiple myeloma without remission (HCC) documented in this encounter Results * Immunofix Electrophoresis Bill(SENDOUT) (06/13/2024 3:45 PM EDT) Immunofix Electrophoresis Bill Billed 06/17/2024 8:41 PM EDT [facility] Comment: Performed By: [employer] [address] [place] [address] Personal Development Educator: Parker Rangel MD, PhD CLIA Number: [id number] Blood ENTIRE RIGHT UPPER ARM / Unknown Venipuncture / Unknown 06/13/2024 3:45 PM EDT 06/13/2024 3:55 PM EDT us Caleb Pacheco MD LAB BLOOD ORDERABLES Final Res ult [facility] [address] [id number], [facility] [phone] * (ABNORMAL) Immunoglobulin A(SENDOUT) (06/13/2024 3:45 PM EDT) Immunoglobulin A 3081(H) 68 - 408 mg/dL 06/17/2024 8:24 PM EDT [facility] Comment: Performed By: [employer] [address] [place] [address] Personal Development Educator: Parker Rangel MD, PhD CLIA Number: [id number] Blood ENTIRE RIGHT UPPER ARM / Unknown Venipuncture / Unknown 06/13/2024 3:45 PM EDT 06/13/2024 3:55 PM EDT Caleb Pacheco MD LAB BLOOD ORDERABLES Final Res ult Performing Organization Address City/[facility]/ZIP Co de Phone Number [address] [phone] * (ABNORMAL) Immunoglobulin M(SENDOUT) (06/13/2024 3:45 PM EDT) Pathologist [facility] Immunoglobulin M 14(L) 35 - 263 mg/dL 06/17/2024 8:24 PM EDT [facility] Comment: Performed By: [employer] [address] [place] [address] Personal Development Educator: Parker Rangel MD, PhD CLIA Number: [id number] Blood ENTIRE RIGHT UPPER ARM / Unknown Venipuncture / Unknown 06/13/2024 3:45 PM EDT 06/13/2024 3:55 PM EDT Caleb Pacheco MD LAB BLOOD ORDERABLES Final Res ult Performing Organization Address City/[facility]/ZIP Co de Phone Number [address] [phone] * (ABNORMAL) Immunoglobulin G(SENDOUT) (06/13/2024 3:45 PM EDT) Immunoglobulin G 107(L) 768 - 1632 mg/dL 06/17/2024 8:23 PM EDT [facility] Comment: Performed By: [employer] [address] [place] [address] Personal Development Educator: Parker Rangel MD, PhD CLIA Number: [id number] Blood ENTIRE RIGHT UPPER ARM / Unknown Venipuncture / Unknown 06/13/2024 3:45 PM EDT 06/13/2024 3:55 PM EDT Caleb Pacheco MD LAB BLOOD ORDERABLES Final Res ult Performing Organization Address City/[facility]/ZIP Co de Phone Number [facility] [address] [phone] * (ABNORMAL) [place]-Lambda Quant FLC with Ratio(SENDOUT) (06/13/2024 3:45 PM EDT) [place] Qnt Free Light Chains 1.38(L) 3.30 - 19.40 mg/L 06/15/2024 11:28 PM EDT [facility] Comment: INTERPRETIVE INFORMATION: [place] Qnt Free Light Chains Undetected antigen excess is a rare event but cannot be excluded. Free light chain results should always be interpreted in conjunction with other clinical and laboratory findings. [place]ambda Qnt Free Light Chains 333.51(H) 5.71 - 26.30 mg/L 06/15/2024 11:28 PM EDT [facility] Comment: INTERPRETIVE INFORMATION: Lambda Qnt Free Light Chains Undetected antigen excess is a rare event but cannot be excluded. Free light chain results should always be interpreted in conjunction with other clinical and laboratory findings. [place]/Lambda Free Light Chain Ratio <0.01(L) 0.26 - 1.65 06/15/2024 11:28 PM EDT [facility] Comment: Performed By: [employer] [address] [place] [address] Personal Development Educator: Parker Rangel MD, PhD CLIA Number: [id number] Blood ENTIRE RIGHT UPPER ARM / Unknown Venipuncture / Unknown 06/13/2024 3:45 PM EDT 06/13/2024 3:55 PM EDT Caleb Pacheco MD LAB BLOOD ORDERABLES Final Res ult Performing Organization Address City/[facility]/ZIP Co de Phone Number [facility] [address] [phone] * (ABNORMAL) Protein Electrophoresis w Rflx to RALPH(SENDOUT) (06/13/2024 3:45 PM EDT) Total Protein, Serum 7.4 6.3 - 8.2 g/dL 06/17/2024 8:41 PM EDT [facility] Albumin 2.35(L) 3.75 - 5.01 g/dL 06/17/2024 8:41 PM EDT [facility] Alpha 1 Globulin 0.35 0.19 - 0.46 g/dL 06/17/2024 8:41 PM EDT [facility] Alpha 2 Globulin 0.67 0.48 - 1.05 g/dL 06/17/2024 8:41 PM EDT [facility] Beta Globulin 3.89(H) 0.48 - 1.10 g/dL 06/17/2024 8:41 PM EDT [facility] Gamma 0.15(L) 0.62 - 1.51 g/dL 06/17/2024 8:41 PM EDT [facility] Immunofixation Reflex RALPH Done 06/17/2024 8:41 PM EDT [facility] Monoclonal Protein 3.41(H) <=0.00 g/dL 06/17/2024 8:41 PM EDT [facility] SPEP/RALPH Interpretation See Note 06/17/2024 8:41 PM EDT [facility] Comment: Monoclonal spike in the [...] Reflex See Note 06/17/2024 8:41 PM EDT [facility] Comment: Authorized individuals can access the [facility] Enhanced Report using the following link: [email or web address] Performed By: [employer] [address] [place] [address] Personal Development Educator: Parker Rangel MD, PhD CLIA Number: [id number] Blood ENTIRE RIGHT UPPER ARM / Unknown Venipuncture / Unknown 06/13/2024 3:45 PM EDT 06/13/2024 3:55 PM EDT us Caleb Pacheco MD LAB BLOOD ORDERABLES Final Res ult [facility] [address] [place] [address], [facility] [phone] * (ABNORMAL) CBC with Automated Diff (06/13/2024 2:43 PM EDT) Pathologist [facility] WBC 4.0(L) 4.5 - 12.5 K/??L 06/13/2024 2:58 PM EDT [facility] RBC 2.44(L) 4.00 - 5.25 M/??L 06/13/2024 2:58 PM EDT [facility] Hemoglobin 8.3(L) 12.0 - 16.0 GM/DL 06/13/2024 2:58 PM EDT [facility] Hematocrit 26.5(L) 36.0 - 46.0 % 06/13/2024 2:58 PM EDT [facility] MCV 109(H) 80 - 100 fL 06/13/2024 2:58 PM EDT [facility] MCH 34.0 26.0 - 34.0 pg 06/13/2024 2:58 PM EDT [facility] MCHC 31.3 31.0 - 37.0 GM/DL 06/13/2024 2:58 PM EDT [facility] RDW 13.9 12.0 - 16.8 % 06/13/2024 2:58 PM EDT [facility] Platelets 216 140 - 440 K/CU MM 06/13/2024 2:58 PM EDT [facility] MPV 12.5(H) 7.4 - 10.4 fL 06/13/2024 2:58 PM EDT [facility] % Neutros 62 45 - 80 % 06/13/2024 2:58 PM EDT [facility] % Lymphs 25 15 - 45 % 06/13/2024 2:58 PM EDT [facility] % Monos 12(H) 0 - 10 % 06/13/2024 2:58 PM EDT [facility] % Eos 1 0 - 5 % 06/13/2024 2:58 PM EDT [facility] % Baso 1 0 - 3 % 06/13/2024 2:58 PM EDT [facility] # Neutros 2.49 2.00 - 8.80 K/??L 06/13/2024 2:58 PM EDT [facility] # Lymphs 0.99 0.70 - 5.50 K/??L 06/13/2024 2:58 PM EDT [facility] # Monos 0.46 0.00 - 1.70 K/??L 06/13/2024 2:58 PM EDT [facility] # Eos 0.05 0.00 - 0.80 K/??L 06/13/2024 2:58 PM EDT [facility] # Baso 0.02 0.00 - 0.20 K/??L 06/13/2024 2:58 PM EDT [facility] Blood Venipuncture / Unknown 06/13/2024 2:43 PM EDT 06/13/2024 2:51 PM EDT Narrative [facility] - 06/13/2024 2:58 PM EDT When CBC w/ Auto Diff [...] Flag noted Atypical Lymph flag noted us Caleb Pacheco MD LAB BLOOD ORDERABLES Final Res ult [facility] [address] [place] [address], [facility] [phone] documented in this encounter Visit Diagnoses Diagnosis Multiple myeloma without remission (HCC)- Primary documented in this encounter Administered Medications Inactive Administered Medications - up to 3 most recent administrations Medication Order MAR Action Action Date Dose Rate Site carfilzomib 120 mg in dextrose 5 % (D5W) 170 mL chemo infusion 120 mg Once, intravenous, Administer over 30 Minutes, On Wed06/13/24 at 1600, For 1 dose, Chemo IV Set #: [id number] BSA = 2.2m2 (Max BSA for regimen) Reconstitute 60mg vial with 29mL SWFI Carfilzomib = 60mL Caution: Recommend wearing double gloves and protective gown during administration. Employees who are , trying to become , or should not handle this medication. Dispose of trace chemotherapy (including packaging) in the YELLOW waste bin.Indications:Multiple myeloma without remission (HCC) IVPB Started 06/13/2024 4:03 PM EDT 120 mg 340 mL/hr dexAMETHasone (DECADRON) 20 mg in sodium chloride 0.9 % (NS) 50 mL IVPB 20 mg Once, intravenous, Administer over 5 Minutes, On Wed06/13/24 at 1530, For 1 dose, Protect from Light.Indications:Multiple myeloma without remission (HCC) IVPB Started 06/13/2024 3:46 PM EDT 20 mg 756 mL/hr dextrose 5 % infusion 500 mL Once, intravenous, at 100 mL/hr, On Wed06/13/24 at 1530, For 1 dose, Infuse at 100 ml/hr for the duration of treatment. May increase or decrease rate as needed.Indications:Multiple myeloma without remission (HCC) New Bag 06/13/2024 3:44 PM EDT 500 mLs 100 mL/hr diphenhydrAMINE (BENADRYL) injection 25 mg 25 mg Once, intravenous, On Wed06/13/24 at 1530, For 1 doseIndications:Multiple myeloma without remission (HCC) Given 06/13/2024 3:45 PM EDT 25 mg famotidine (PF) injection 20 mg 20 mg Once, intravenous, On Wed06/13/24 at 1530, For 1 dose, Pharmacist to renally dose if CrCl is less than 50 mL/min or on CRRT.Indications:Multiple myeloma without remission (HCC) Given 06/13/2024 3:45 PM EDT 20 mg granisetron (KYTRIL) injection 1 mg 1 mg Once, intravenous, On Wed06/13/24 at 1530, For 1 doseIndications:Multiple myeloma without remission (HCC) Given 06/13/2024 3:45 PM EDT 1 mg sodium chloride flush 10 mL 10 mL As needed, intravenous, line care, Starting on Wed06/13/24 at 1555, Per [facility] Policy.Indications:Multiple myeloma without remission (HCC) Given 06/13/2024 3:55 PM EDT 10 mLs documented in this encounter Care Teams Chromosomal Disorders Counselor Relationship Specialty Start Date End Date Clifford Newell PA [address] [place] [address] [place] [address] PCP - General Physician Quail Farmer 10/14/23 documented as of this encounter
--- OUTSIDE RECORDS SUMMARY | 2024-08-03 16:57 | XMS_ITS | Encounter Summary ---
Author Organization [employer] Address [address] [place] [address] Care Team Providers Care Pneumatic Press Hand Name Role Phone Clifford Newell Primary Care Provider + [phone] Encounter Details Date Type Department Care Team (Late st Contact Info) Description 2024 Orders Only [facility] [address] [place] [address] Caleb Pacheco MD [address] [facility] [address] [place] [address] Social History Tobacco Use Types [...] Date Kulwant rded Speak language other than Telugu at home Not on file 10/05/2023 Want [...] on filedocumented in this encounter Care Teams Pneumatic Press Hand Relationship Specialty Start Date End Date Clifford Newell PA [address] [place] [address] Dr [place], [place] [address] PCP - General Physician Charter Boat Operator 10/14/23 documented as of this encounter
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
--- OUTSIDE RECORDS SUMMARY | 2024-08-03 16:57 | XMS_ITS | Encounter Summary ---
Author Organization [employer] Address [address] [place] [address] Care Team Providers Care Vegetable Farm Manager Name Role Phone Clifford Newell Primary Care Provider + [phone] Reason for Visit * Reason Comments Medication Refill Encounter Details Date Type Department Care Team (Late st Contact Info) Description 06/16/2024 Refill [facility] - [place] [address] [facility] [address] [place] [address] Caleb Pacheco MD [address] [facility] [address] [place] [address] Social History Tobacco Use Types [...] Date Kulwant rded Speak language other than [place] at home Not on file 10/05/2023 Want [...] encounter Miscellaneous Notes * Telephone Encounter - Camilla Barbosa RN - 06/16/2024 4:42 PM EDT Prescription Refill Name/Strength/Directions: Fentanyl Patch 25 mcg/hr, APPLY 1 PATCH TO THE SKIN DIRECTED EVERY THIRD DAY. REMOVE OLD PATCH BEFORE APPLYING A NEW PATCH. Quantity:5 patches Last Fill Date/Provider:05/14/24Dr. Pacheco Last Appt:06/13/24 Next Appt:06/27/24 Requested Pharmacy:[facility] Medication pended for MD to send. documented in this encounter Plan of Treatment Not on file documented as of this encounter Visit Diagnoses Not on filedocumented in this encounter Care Teams Vegetable Farm Manager Relationship Specialty Start Date End Date Clifford Newell PA [address] [place] [address] Dr Portillo, [place] [phone] PCP - General Physician Classroom Teacher 10/14/23 documented as of this encounter
--- OUTSIDE RECORDS SUMMARY | 2024-08-03 16:57 | XMS_ITS | Encounter Summary ---
Author Organization [employer] Address [address] [place] [address] Care Team Providers Care Leaf Tinner Name Role Phone Clifford Newell Primary Care Provider + [phone] Encounter Details Date Type Department Care Team (Late st Contact Info) Description 06/06/2024 Orders Only [facility] - [facility] [address] [place] [address] Caleb Pacheco MD [address] [facility] [address] [place] [address] Social History Tobacco Use Types [...] Date Kulwant rded Speak language other than Swedish at home Not on file 10/05/2023 Want [...] on filedocumented in this encounter Care Teams Leaf Tinner Relationship Specialty Start Date End Date Clifford Newell PA [address] [place] [address] Dr Portillo, [place] [phone] PCP - General Physician Community Mental Health Worker 10/14/23 documented as of this encounter
--- OUTSIDE RECORDS SUMMARY | 2024-08-03 16:57 | XMS_ITS | Encounter Summary ---
Author Organization [employer] Address [address] [place] [address] Care Team Providers Care Roll On Worker Name Role Phone Clifford Newell Primary Care Provider + [phone] Encounter Details Date Type Department Care Team (Late st Contact Info) Description 07/10/2024 Orders Only [facility] - [facility] [address] [place] [address] Caleb Pacheco MD [address] [facility] [address] [place] [address] Social History Tobacco Use Types [...] Date Kulwant rded Speak language other than Uz[place] at home Not on file 10/05/2023 Want [...] on filedocumented in this encounter Care Teams Roll On Worker Relationship Specialty Start Date End Date Clifford Newell PA [address] [place] [address] Dr Portillo, JERAD [phone] PCP - General Physician Curb Attendant 10/14/23 documented as of this encounter
--- OUTSIDE RECORDS SUMMARY | 2024-08-03 16:57 | XMS_ITS | Encounter Summary ---
Author Organization [employer] Address [address] [place] [address] Care Team Providers Care Chief Bank Examiner Name Role Phone Clifford Newell Primary Care Provider + [phone] Encounter Details Date Type Department Care Team (Latest Contact Info) Description 07/04/2024 Travel Social History Tobacco Use Types Packs/Day [...] Date Kulwant rded Speak language other than Vietnamese at home Not on file 10/05/2023 Want [...] on filedocumented in this encounter Care Teams Chief Bank Examiner Relationship Specialty Start Date End Date Clifford Newell PA [address] [place] [address] [place] [phone] PCP - General Physician Granulizing Machine Operator 10/14/23 documented as of this encounter
--- OUTSIDE RECORDS SUMMARY | 2024-08-03 16:57 | XMS_ITS | Encounter Summary ---
Author Organization [employer] Address [address] [place] [address] Care Team Providers Care Appliance Sales Associate Name Role Phone Clifford Newell Primary Care Provider + [phone] Reason for Visit * Reason Comments Generalized Weakness, Not Associated Wit h Extremities Encounter Details Date Type Department Care Team (Late st Contact Info) Description 07/04/2024 12:01 PM EDT - 07/04/2024 9:00 PM EDT Emergency [facility] [address] [place] [address] Cuca Barajas MD [address] [place] [address] Nausea and vomiting, unspecified vomiting type (Primary Dx); Urinary tract infection without hematuria, site unspecified Discharge Disposition: Home or Self Care Social History Tobacco Use Types Packs/Day Years [...] Recorded Living situation today Not on file 01/16/202 4 Living situation problems Not on file 2023 [...] Date Kulwant rded Speak language other than Pakistani at home Not on file 10/05/2023 Want [...] Sign Reading Time Taken Comments Blood Pressure 114/75 07/04/2024 8:59 PM EDT Pulse 78 07/04/2024 8:59 PM EDT Temperature 36.8 ??C (98.3 ??F) 07/04/2024 12:00 PM E DT Respiratory Rate 15 07/04/2024 8:59 PM EDT Oxygen Saturation 98% 07/04/2024 8:59 PM EDT Inhaled Oxygen Concentration - - Weight 103 kg (227 lb) 07/04/2024 12:00 PM EDT Height 160 cm (5' 3 ) 07/04/2024 12:00 PM EDT Body Mass Index 40.21 07/04/2024 12:00 PM EDT documented in this encounter Discharge Instructions * Attachments The following attachments cannot be sent through Care Everywhere. * Nausea and Vomiting Adult (Pakistani) * Urinary Tract Infection Adult Onad-ex-Cmwy (Pakistani) documented in this encounter Medications at Time of Discharge acyclovir (ZOVIRAX) 5 % ointment Apply topically every 3 (three) hours. 15 g 2 4 07/13/20 Advair HFA 115-21 mcg/actuation inhaler 2 puffs 2 (two) times daily. 3 07/13/20 ascorbic acid, vitamin C, (VITAMIN C) 250 MG tablet Take 2 tablets (500 mg total) by mouth. 07/13/20 benzonatate (TESSALON) 100 MG capsule Take 1 capsule (100 mg total) by mouth 3 (three) times daily as needed for Cough for up to 30 doses. 30 capsule 3 07/13/20 BIOTIN ORAL Take 6,000 mcg by mouth. 07/13/20 busPIRone (BUSPAR) 15 MG tablet Take 1 tablet (15 mg total) by mouth 3 (three) times daily. 2 07/13/20 cetirizine (ZyrTEC) 10 MG tablet Take 1 tablet (10 mg total) by mouth. 07/13/20 clonazePAM (KlonoPIN) 0.5 MG tablet Take 1 tablet (0.5 mg total) by mouth as needed. 3 07/13/20 cyanocobalamin (VITAMIN B-12) 1000 MCG tablet TAKE 1 TABLET BY MOUTH EVERY DAY ON AN EMPTY STOMACH FOR LOW VITAMIN B-12 2 07/13/20 cyclobenzaprine (FLEXERIL) 5 MG tablet Take 1 tablet (5 mg total) by mouth 2 (two) times daily as needed. 2 07/13/20 DULoxetine (CYMBALTA) 30 MG capsule Take 1 capsule (30 mg total) by mouth daily. 30 tablet 5 4 07/13/20 ergocalciferol (ERGOCALCIFEROL) 1,250 mcg (50,000 unit) capsule Take 1 capsule (50,000 Units total) by mouth once a week. 2 07/13/20 fentaNYL (DURAGESIC) 25 mcg/hr patch Place 1 patch onto the skin every third day for 10 doses. Max Daily Amount: 1 patch 10 patch 4 07/13/20 fluticasone propionate (FLONASE) 50 mcg/actuation nasal spray 2 sprays daily. 2 07/13/20 gabapentin (NEURONTIN) 300 MG capsule Take 1 capsule (300 mg total) by mouth 3 (three) times daily. 2 07/13/20 meclizine (ANTIVERT) 25 mg tablet Take 1 tablet (25 mg total) by mouth 4 (four) times daily as needed. 60 tablet 5 3 07/13/20 metoprolol succinate (TOPROL-XL) 25 MG 24 hr tablet Take 1 tablet (25 mg total) by mouth daily. 3 07/13/20 nitrofurantoin, macrocrystal-monohy drate, (MACROBID) 100 MG capsule Take 1 capsule (100 mg total) by mouth 2 (two) times daily with breakfast and dinner for 7 days. 14 capsule 4 07/13/20 ondansetron (ZOFRAN-ODT) 4 MG disintegrating tablet Take 1 tablet (4 mg total) by mouth every 8 (eight) hours as needed. 12 tablet 4 07/13/20 OneTouch Verio test strips Strp 2 (two) times daily. 2 07/13/20 oxyCODONE (OXY-IR) 10 mg tablet Take 1 tablet (10 mg total) by mouth every 4 (four) hours as needed for up to 100 doses. Max Daily Amount: 60 mg 100 tablet 4 07/13/20 PARoxetine (PAXIL) 30 MG tablet Take 1 tablet (30 mg total) by mouth daily. 2 07/13/20 Pomalyst 1 mg Cap TAKE 1 CAPSULE BY MOUTH ONCE DAILY. 21 capsule 4 07/13/20 potassium chloride SA (K-DUR,KLOR-CON-M) 20 MEQ tablet Take 1 tablet (20 mEq total) by mouth daily. 2 07/13/20 ProAir HFA 90 mcg/actuation inhaler 2 puffs. 2 07/13/20 promethazine (PHENERGAN) 12.5 MG tablet Take 1 tablet (12.5 mg total) by mouth every 6 (six) hours as needed for nausea or vomiting. 30 tablet 4 07/13/20 simvastatin (ZOCOR) 10 MG tablet Take 1 tablet (10 mg total) by mouth nightly. 2 07/13/20 sulfamethoxazole-tr imethoprim (BACTRIM DS) 800-160 mg per tablet Take 1 tablet (160 mg of trimethoprim total) by mouth 2 (two) times daily To begin on 04/13/2024. 20 tablet 4 07/13/20 Tab-A-Avery 400 mcg Tab Take 1 tablet by mouth daily. 2 07/13/20 UNKNOWN Take 1 tablet by mouth daily Likina's Dawson - for memory loss. 07/13/20 Xarelto 20 mg tablet SMARTSI Tablet(s) By Mouth Every Evening 2 07/13/20 documented as of this encounter ED Notes * Stacy Fontanez RN - 07/04/2024 11:59 AM EDT Weakness and vomiting for three days. States she has not had anything to eat or drink in days due to vomiting- pt is able to drink a cup of water without difficulty during her triage. * Cuca Barajas MD - 07/04/2024 11:53 AM EDT Subjective Chief Complaint: Generalized Weakness, Not Associated With Extremities HPI 64 year old female presenting with general weakness. She states that for two weeks she has had nausea, vomiting, has not been able to keep anything down. She has gotten increasingly generally weak. Has tried Zofran and Phenergan without relief. No fevers, chest pain or shortness of breath. She has history of multiple myeloma, gets infusions of chemotherapy but has not had it in about 2 weeks. Patient History 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HCC) Chronic low back pain DVT (deep venous thrombosis) ([facility]) History of shingles 12/2019 Hypertension Multiple myeloma (HCC) Peripheral neuropathy Pulmonary embolism ([facility]) Past Surgical History: Procedure Laterality Date [...] needed. Review of Systems Review of Systems Physical Exam Vitals: 07/04/24 1648 BP: 111/53 Pulse: 82 Resp: 19 Temp: SpO2: 98% Physical Exam GENERAL: Chronically ill HEENT: Normocephalic, atraumatic. PERRL. Mucous membranes moist NECK: Neck supple, no tracheal deviation HEART: Regular rhythm, normal rate, no murmurs LUNGS: Clear bilaterally with normal effort and good air movement. No wheezes, rales, or rhonchi ABDOMEN: Soft, nontender, nondistended. EXTREMITIES: No edema or tenderness SKIN: Warm, dry, well-perfused, no rashes NEURO: Alert, awake, and oriented to person, place, and time. Grossly nonfocal with intact strengthand sensation to bilateral upper and lower extremities Neurologic Exam Ortho Exam ED Course & MDM Procedures Medical Decision Making Patient was seen in triage for a medical screening examination. A brief history and physical examination was performed in triage to initiate a work-up. Differential diagnosis includes but is not limited to viral illness, dehydration, electrolyte abnormality, malignancy. Rest of care was provided in main ED by a provider. Amount and/or Complexity of Data Reviewed Labs: ordered. Radiology: ordered. Risk Prescription drug management. ED COURSE / MEDICAL DECISION MAKING: Francy Bailey is a 64 y.o. female who presents to the emergency department for evaluation of nausea, vomiting, dehydration. Patient does have dry mucous membranes on my evaluation but no abdominal tenderness. Differential diagnosis includes dehydration, electrolyte imbalance, gastritis among other etiologies. An EKG, CBC, CMP, chest x-ray was ordered for further evaluation of the patient's presentation. Diagnostic information from other sources: Family, chart review Interventions: IV fluids, pain medicine, nausea medication Narrative: Patient presents with nausea and vomiting. Laboratory testing reveals a normal white blood cell count, renal function is preserved. Potassium mildly low at 3.0, this was replenished in theemergency department. Other labs are largely nonactionable. I obtained a chest x-ray which per my interpretation did not show any obvious acute process. CT scan of the abdomen pelvis per radiology interpretation revealed evidence of metastatic disease with multiple myeloma but otherwise no acute process. I did personally review the CT scan. COVID screen is negative. I did discuss with the hospitalist this patient did require several doses of nausea medication, but given her nausea was improvingthey did not feel that she required admission at this time. I did briefly speak with her oncologistwho indicated that if we get patient's nausea under control he believes she can also be discharged home. Assessment & Plan Clinical Impression Diagnosis Comment Added By Time Added Nausea and vomiting, unspecified vomiting type Cuca Barajas MD 07/04/2024 6:53 PM Disposition Discharge [1] - 07/04/2024 6:53 PM New Prescriptions ONDANSETRON (ZOFRAN-ODT) 4 MG DISINTEGRATING TABLET Take 1 tablet (4 mg total) by mouth every 8 (eight) hours as needed. PROMETHAZINE (PHENERGAN) 12.5 MG TABLET Take 1 tablet (12.5 mg total) by mouth every 6 (six) hours as needed for nausea or vomiting. Electronically Signed By Cuca Barajas MD 07/04/241853 documented in this encounter Plan of Treatment Not on file documented as of this encounter Procedures Procedure Name Priority Date/Time Associated Diagnosis Comments URINALYSIS, REFLEX MICROSCOPIC AND CULTURE IF INDICATED STAT 07/04/2024 8:02 PM EDT URINALYSIS MICROSCOPIC STAT 8:02 PM EDT URINE CULTURE STAT 07/04/2024 8:[address] ABDOMEN/PELVIS WITH IV CONTRAST STAT 07/04/2024 4:25 PM EDT XR CHEST 1 VIEW PORTABLE / BEDSIDE STAT 07/04/2024 12:41 PM EDT SARS-COV2 PCR (COVID 19) STAT 07/04/2024 12:29 PM EDT CBC W/ AUTO DIFF STAT 07/04/2024 12:2 9 PM EDT LACTIC ACID WITH REFLEX STAT 07/04/2024 12:29 PM EDT TSH STAT 07/04/2024 12:29 PM EDT MAGNESIUM Add-On 07/04/2024 12:29 PM EDT LIPASE STAT 07/04/2024 12:29 PM EDT COMPREHENSIVE METABOLIC PANEL STAT 07/04/2024 12:29 PM EDT documented in this encounter Results * (ABNORMAL) Urine Culture (07/04/2024 8:02 PM EDT) Result 10-100,000 CFU Klebsiella pneumoniae(A) 07/06/2024 9:[address] [facility] Urine URINE SPECIMEN COLLECTION, CLEAN CATCH [...] MICROBIOLOGY - GENERAL ORDERABL ES Final Result Performing Organization Address [facility]/ZIP Co de Phone Number [facility] [address] [phone] * (ABNORMAL) Urinalysis Microscopic Only (07/04/2024 8:02 PM EDT) WBC, UA 51-100(A) None Seen /HPF 07/04/2024 8:[address] [facility] RBC, UA 3-5(A) None Seen /HPF 07/04/2024 8:[address] [facility] Bacteria, UA 1+(A) None Seen, Trace 07/04/2024 8:[address] [facility] Mucus 2+(A) None Seen 07/04/2024 8:[address] [facility] SQUAMOUS EPITHELIAL 0-2(A) None Seen /HPF 07/04/2024 8:[address] [facility] Urine URINE SPECIMEN COLLECTION, CLEAN CATCH / Unknown 07/04/2024 8:02 PM EDT 07/04/2024 8:04 PM EDT us Facundo Ackerman MD URINE ORDERABLES Final Result Performing Organization Address [facility] Co de Phone Number [facility] [address] [phone] * (ABNORMAL) Urinalysis, Reflex Microscopic and Culture If Indicated (07/04/2024 8:02 PM EDT) Color, UA Yellow 07/04/2024 8:[address] [facility] Clarity, UA Turbid(A) Clear 07/04/2024 8:[address] [facility] Specific [place], UA 1.049(H) 1.005 - 1.030 07/04/2024 8:[address] [facility] pH, UA 5.5(L) 6.0 - 8.0 07/04/2024 8:[address] [facility] Leukocytes, UA 500 Marta/uL(A) Negative 07/04/2024 8:[address] [facility] Nitrite, UA Negative Negative 07/04/2024 8:[address] [facility] Protein, UA 1+(A) Negative 07/04/2024 8:[address] [facility] Glucose, UA Normal Normal 07/04/2024 8:[address] [facility] Ketones, UA 1+(A) Negative 07/04/2024 8:[address] [facility] Bilirubin, UA Negative Negative 07/04/2024 8:[address] [facility] Blood, UA Trace(A) Negative 07/04/2024 8:[address] [facility] Urobilinogen, UA Normal Normal 07/04/2024 8:[address] [facility] Specimen Source Urine, Clean Catch 07/04/2024 8:[address] [facility] Urine URINE SPECIMEN COLLECTION, CLEAN CATCH / Unknown 07/04/2024 8:02 PM EDT 07/04/2024 8:04 PM EDT us Facundo Ackerman MD URINE ORDERABLES Final Result [facility] [address] [place] [address] * CT ABDOMEN/PELVIS WITH IV CONTRAST (07/04/2024 [...] by Jaswant Lopez PA-C Cuca Barajas MD [facility] CT ORDERABLES Final Result * XR chest [...] reviewed, interpreted, and dictated by Dr. Mert Kngiht. Transcribed by Silvia Pablo PA-C. Facundo [facility] ORDERABL ES Final Result * Magnesium (07/04/2024 12:29 PM EDT) Magnesium 2.2 1.5 - 2.4 mg/dL 07/04/2024 3:[address] [facility] Blood Venipuncture / Unknown 07/04/2024 12:29 PM EDT 07/04/2024 12:43 PM EDT Cuca Barajas MD LAB BLOOD ORDERABLES Final Res ult Performing Organization Address City/[facility]/ZIP Co de Phone Number [facility] [address] [phone] * SARS-COV2/RT-PCR (07/04/2024 12:29 PM EDT) Pathologist [facility] SARS-COV2/RT-P CR Negative Negative DEVICE ID9 07/04/2024 1:[address] [facility] Nasopharyngeal NASOPHARYNGEAL SWAB / Unknown 07/04/2024 12:29 PM EDT 07/04/2024 12:[address] [facility] - 07/04/2024 1:22 PM EDT Testing was performed using RT-PCR [...] performed according to the current CDC recommendations. Facundo Ackerman MD MICROBIOLOGY - GENERAL ORDERABL ES Final Result Performing Organization Address City/[facility] Co de Phone Number [facility] [address] [phone] * TSH (07/04/2024 12:29 PM EDT) TSH 0.900 0.358 - 3.740 uIU/mL 07/04/2024 1:[address] [facility] Blood Venipuncture / Unknown 07/04/2024 12:29 PM EDT 07/04/2024 12:[address] [facility] - 07/04/2024 1:30 PM EDT Biotin supplements can cause clinically significant incorrect lab results. The FDA has seen an increase in the number of reported adverse events related to biotin interference with lab tests. us Facundo Ackerman MD LAB BLOOD ORDERABLES Final Resu lt Performing Organization Address [facility]/ZIP Co de Phone Number [facility] [address] [phone] * Lipase (07/04/2024 12:29 PM EDT) Pathologist [facility] Lipase 24 13 - 75 U/L 07/04/2024 1:[address] [facility] Blood Venipuncture / Unknown 07/04/2024 12:29 PM EDT 07/04/2024 12:43 PM EDT us Facundo Ackerman MD LAB BLOOD ORDERABLES Final Resu lt Performing Organization Address [facility] Co de Phone Number [facility] [address] [phone] * (ABNORMAL) Comprehensive metabolic panel (07/04/2024 12:29 PM EDT) [facility] Sodium 134(L) 136 - 146 meq/L 07/04/2024 1:[address] [facility] Potassium 3.0(L) 3.5 - 5.1 meq/L 07/04/2024 1:[address] [facility] Chloride 101(L) 102 - 112 meq/L 07/04/2024 1:[address] [facility] CO2 19(L) 21 - 32 meq/L 07/04/2024 1:[address] [facility] Calcium 9.2 8.4 - 10.1 mg/dL 07/04/2024 1:[address] [facility] Glucose 101 74 - 106 mg/dL 07/04/2024 1:[address] [facility] BUN 15 7 - 22 mg/dL 07/04/2024 1:[address] [facility] Creatinine 1.01 0.55 - 1.02 mg/dL 07/04/2024 1:[address] [facility] BUN/Creatinine 15 8 - 20 07/04/2024 1:[address] [facility] Albumin 1.8(L) 3.4 - 5.0 g/dL 07/04/2024 1:[address] [facility] Alkaline Phosphatase 57 27 - 136 U/L 07/04/2024 1:[address] [facility] ALT 7(L) 13 - 56 U/L 07/04/2024 1:[address] [facility] AST 23 5 - 37 U/L 07/04/2024 1:[address] [facility] Total Bilirubin 0.8 0.2 - 1.2 mg/dL 07/04/2024 1:[address] [facility] Protein, Total 9.9(H) 6.4 - 8.2 gm/dL 07/04/2024 1:[address] [facility] Anion Gap 17 9 - 20 07/04/2024 1:[address] [facility] A/G Ratio 0.2(L) 1.1 - 2.5 07/04/2024 1:[address] [facility] Globulin 8.1(H) 1.5 - 4.5 g/dL 07/04/2024 1:[address] [facility] Osmolality Calc 269.2 1:[address] [facility] eGFR (mL/min/1.73m2) >60 >=60 mL/min/1.7 3m2 07/04/2024 1:[address] [facility] Comment:ESTIMATED GFR IS NOT ACCURATE CREATININE CLEARANCE IN PREDICTING GLOMERULAR FILTRATION RATE. ESTIMATED GFR IS NOT APPLICABLE FOR DIALYSIS PATIENTS. Blood Venipuncture / Unknown 07/04/2024 12:29 PM EDT 07/04/2024 12:43 PM EDT us Facundo Ackerman MD LAB BLOOD ORDERABLES Final Resu lt [facility] [address] [phone] * Lactic Acid with reflex (SJ) (07/04/2024 12:29 PM EDT) Lactic Acid Level (mmol/L) 1.3 0.4 - 2.0 mmol/L 07/04/2024 1:[address] [facility] Comment:If a Lactic Acid Lev el with Reflex if Indicated result is greater than 2.0, a Lactic Acid Level will be ordered to be collected 2 hours after the original collection time. Blood Venipuncture / Unknown 07/04/2024 12:29 PM EDT 07/04/2024 12:43 PM EDT us Facundo Ackerman MD LAB BLOOD ORDERABLES Final Resu lt [facility] [address] [phone] * (ABNORMAL) CBC with Auto Diff (07/04/2024 12:29 PM EDT) WBC 5.1 4.0 - 10.0 K/??L 07/04/2024 2:[address] [facility] RBC 2.41(L) 3.93 - 5.22 M/??L 07/04/2024 2:[address] [facility] Hemoglobin 8.0(L) 11.2 - 15.7 GM/DL 07/04/2024 2:[address] [facility] Hematocrit 26.0(L) 34.1 - 44.9 % 07/04/2024 2:[address] [facility] MCV 108(H) 79 - 95 fL 07/04/2024 2:[address] [facility] MCH 33.2(H) 25.6 - 32.2 pg 07/04/2024 2:[address] [facility] MCHC 30.8(L) 32.2 - 35.5 GM/DL 07/04/2024 2:[address] [facility] RDW 13.5 11.7 - 14.4 % 07/04/2024 2:[address] [facility] Platelets 156 140 - 375 K/CU MM 07/04/2024 2:[address] [facility] MPV 11.2 9.4 - 12.3 fL 07/04/2024 2:[address] [facility] % Neutros 62 34 - 71 % 07/04/2024 2:[address] [facility] % Lymphs 22 19 - 52 % 07/04/2024 2:[address] [facility] % Monos 10 5 - 13 % 07/04/2024 2:[address] [facility] % Eos 0(L) 1 - 6 % 07/04/2024 2:[address] [facility] % Baso 0 0 - 1 % 07/04/2024 2:[address] [facility] NRBC Absolute 0.05(H) 0 - 0.012 K/ul 07/04/2024 2:[address] [facility] # Neutros 3.14 1.56 - 6.13 K/??L 07/04/2024 2:[address] [facility] # Lymphs 1.14(L) 1.18 - 3.74 K/??L 07/04/2024 2:[address] [facility] # Monos 0.53 0.24 - 0.86 K/??L 07/04/2024 2:[address] [facility] # Eos <0.03(L) 0.04 - 0.36 K/??L 07/04/2024 2:[address] [facility] # Baso <0.03 0.01 - 0.08 K/??L 07/04/2024 2:[address] [facility] Immature Granulocytes-Re lative 5.10(H) 0.01 - 0.43 % 07/04/2024 2:[address] [facility] # IG 0.26(H) 0.00 - 0.03 K/uL 07/04/2024 2:[address] [facility] Blood Venipuncture / Unknown 07/04/2024 12:29 PM EDT 07/04/2024 12:[address] [facility] - 07/04/2024 2:08 PM EDT When CBC w/ Auto Diff [...] Flag noted Atypical Lymph flag noted us Facundo Ackerman MD LAB BLOOD ORDERABLES Final Resu lt [facility] [address] [phone] documented in this encounter Visit Diagnoses Diagnosis Nausea and vomiting, unspecified vomiting type- Primary Urinary tract infection without hematuria, site unspecified documented in this encounter Administered Medications Inactive Administered Medications - up to 3 most recent administrations Medication Order MAR Action Action Date Dose Rate Site diphenhydrAMINE (BENADRYL) injection 25 mg 25 mg Once, intravenous, On Wed07/04/24 at 1205, For 1 dose Given 07/04/2024 12:30 PM EDT 25 mg famotidine (PF) injection 20 mg 20 mg Once, intravenous, On Wed07/04/24 at 1205, For 1 dose, Pharmacist to renally dose if CrCl is less than 50 mL/min or on CRRT. Given 07/04/2024 12:29 PM EDT 20 mg HYDROmorphone (DILAUDID) 1 mg/mL injection Starting on Wed07/04/24 at 1247, For 1 dose, Created by shane rockwellide HYDROmorphone (DILAUDID) injection 0.5 mg 0.5 mg Once, intravenous, On Wed07/04/24 at 1250, For 1 dose Given 07/04/2024 12:52 PM EDT 1 mg iopamidoL (ISOVUE-370) 370 mg iodine /mL (76 %) injection 75 mL 75 mL IMG once as needed, intravenous, contrast, Starting on Wed07/04/24 at 1604, For 1 dose, Intra-op Given 07/04/2024 4:22 PM EDT 75 mLs metoclopramide HCl (REGLAN) injection 10 mg 10 mg Once, intravenous, On Wed07/04/24 at 1205, For 1 dose Given 07/04/2024 12:30 PM EDT 10 mg nitrofurantoin (macrocrystal-monohydrate) (MACROBID) capsule 100 mg 100 mg Once, oral, On Wed07/04/24 at 2055, For 1 dose, Please choose an indication: Urinary Tract Infection Given 07/04/2024 8:56 PM EDT 100 mg ondansetron PF (ZOFRAN) injection 4 mg 4 mg Once, intravenous, On Wed07/04/24 at 1540, For 1 dose, For IV push, give over 2 - 5 minutes. Given 07/04/2024 3:43 PM EDT 4 mg potassium chloride 10 mEq in 100 mL IVPB 10 mEq Once, intravenous, Administer over 60 Minutes, On Wed07/04/24 at 1450, For 1 dose IVPB Started 07/04/2024 3:03 PM EDT 10 mEq 100 mL/hr promethazine (PHENERGAN) 12.5 mg in sodium chloride 0.9 % (NS) 50 mL IVPB (Immediate Use Only) 12.5 mg Once, intravenous, Administer over 20 Minutes, On Wed07/04/24 at 1710, For 1 dose, Nurse to prepare for administration in 50 mL NS. IVPB Started 07/04/2024 5:31 PM EDT 12.5 mg 150 mL/hr sodium chloride 0.9% (NS) bolus 1,000 mL Once, intravenous, Administer over 60 Minutes, On Wed07/04/24 at 1205, For 1 dose New Bag 07/04/2024 12:31 PM EDT 1,000 mLs 1000 mL/hr sodium chloride 0.9% (NS) bolus 1,000 mL Once, intravenous, Administer over 60 Minutes, On Wed07/04/24 at 1710, For 1 dose New Bag 07/04/2024 5:30 PM EDT 1,000 mLs 1000 mL/hr sodium chloride 0.9% (NS) bolus 1,000 mL Once, intravenous, Administer over 60 Minutes, On Wed07/04/24 at 1845, For 1 dose New Bag 07/04/2024 6:48 PM EDT 1,000 mLs 1000 mL/hr documented in this encounter Active and Recently Administered Medications Times are shown in EDT. Scheduled Medication Order 07/02/2024 07/03/2024 07/04/2024 diphenhydrAMINE (BENADRYL) injection 25 mg (COMPLETED) 25 mg Once, intravenous, On 07/04/24 at 1205, For 1 dose 1230 (Given - Provid er: William Kerr) famotidine (PF) injection 20 mg (COMPLETED) 20 mg Once, intravenous, On 07/04/24 at 1205, For 1 dose, Pharmacist to renally dose if CrCl is less than 50 mL/min or on CRRT. 1229 (Given - Provid er: [employer]) HYDROmorphone (DILAUDID) injection 0.5 mg (COMPLETED) 0.5 mg Once, intravenous, On 07/04/24 at 1250, For 1 dose 1252 (Given - Provid er: [employer]) metoclopramide HCl (REGLAN) injection 10 mg (COMPLETED) 10 mg Once, intravenous, On 07/04/24 at 1205, For 1 dose 1230 (Given - Provid er: William Kerr) nitrofurantoin (macrocrystal-monohydrate) (MACROBID) capsule 100 mg (COMPLETED) 100 mg Once, oral, On 07/04/24 at 2055, For 1 dose, Please choose an indication: Urinary Tract Infection 2055 (Given - Provid er: [employer]) ondansetron PF (ZOFRAN) injection 4 mg (COMPLETED) 4 mg Once, intravenous, On 07/04/24 at 1540, For 1 dose, For IV push, give over 2 - 5 minutes. 1543 (Given - Provid er: [employer]) potassium chloride 10 mEq in 100 mL IVPB (COMPLETED) 10 mEq Once, intravenous, Administer over 60 Minutes, On 07/04/24 at 1450, For 1 dose 1503 (IVPB Started - Provider: William Kerr)1650 (Stopped - Provider: William Kerr) promethazine (PHENERGAN) 12.5 mg in sodium chloride 0.9 % (NS) 50 mL IVPB (Immediate Use Only) (COMPLETED) 12.5 mg Once, intravenous, Administer over 20 Minutes, On Wed07/04/24 at 1710, For 1 dose, Nurse to prepare for administration in 50 mL NS. 1731 (IVPB Started - Provider: William Kerr)1846 (Stopped - Provider: William Kerr) sodium chloride 0.9% (NS) bolus (COMPLETED) 1,000 mL Once, intravenous, Administer over 60 Minutes, On Wed07/04/24 at 1205, For 1 dose 1231 (New Bag - Prov ider: William Kerr)1533 (Stopped - Provider: William Kerr) sodium chloride 0.9% (NS) bolus (COMPLETED) 1,000 mL Once, intravenous, Administer over 60 Minutes, On Wed07/04/24 at 1710, For 1 dose 1730 (New Bag - Prov ider: William Kerr)1846 (Stopped - Provider: William Kerr) sodium chloride 0.9% (NS) bolus (COMPLETED) 1,000 mL Once, intravenous, Administer over 60 Minutes, On Wed07/04/24 at 1845, For 1 dose 1848 (New Bag - Prov ider: William Kerr)2002 (Stopped - Provider: William Kerr) PRN Medication Order 07/02/2024 07/03/2024 07/04/2024 iopamidoL (ISOVUE-370) 370 mg iodine /mL (76 %) injection 75 mL (COMPLETED) 75 mL IMG once as needed, intravenous, contrast, Starting on Wed07/04/24 at 1604, For 1 dose, Intra-op 1622 (Given - Provid er: Mitzi Coto) documented in this encounter Care Teams Appliance Sales Associate Relationship Specialty Start Date End Date Clifford Newell PA [address] [place] [address] [place] [address] PCP - General Physician Manager Work 10/14/23 documented as of this encounter
--- OUTSIDE RECORDS SUMMARY | 2024-08-03 16:57 | XMS_ITS | Encounter Summary ---
Author Organization [employer] Address [address] [place] [address] Care Team Providers Care Air Defense Artillery Officer Name Role Phone Clifford Newell Primary Care Provider + [phone] Encounter Details Date Type Department Care Team (Late st Contact Info) Description 06/13/2024 Orders Only [facility] - [facility] [address] [place] [address] Caleb Pacheco MD [address] [facility] [address] [place] [address] Social History Tobacco Use Types [...] Date Kulwant rded Speak language other than Ukrainian at home Not on file 10/05/2023 Want [...] on filedocumented in this encounter Care Teams Air Defense Artillery Officer Relationship Specialty Start Date End Date Clifford Newell PA [address] [place] [address] Dr [place], [place] [address] PCP - General Physician Dog Food Shredder Operator 10/14/23 documented as of this encounter
--- OUTSIDE RECORDS SUMMARY | 2024-08-03 16:57 | XMS_ITS | Encounter Summary ---
Author Organization [employer] Address [address] [place] [address] Care Team Providers Care Copy Preparer Name Role Phone Clifford Newell Primary Care Provider + [phone] Encounter Details Date Type Department Care Team (Late st Contact Info) Description 07/12/2024 Orders Only [facility] - [facility] [address] [place] [address] Caleb Pacheco MD [facility] [address] [place] [address] Social History Tobacco Use Types Packs/Day Years Used Date Smoking Tobacco: Never Smokeless Tobacco: Never Alcohol Use Standard Drinks/Week Comments Never 0 (1 standard drink = 0.6 oz pur e alcohol) Utilities Answer Date Recorded In the past 12 months, has t he electric, gas, oil, or water [employer] threatened to shut off services in your [...] Do you speak a language other than Pakistani at [facility]? No 07/12/2024 Do you want help [...] on filedocumented in this encounter Care Teams Copy Preparer Relationship Specialty Start Date End Date Clifford Newell PA [address] [place] [address] [place] [phone] PCP - General Physician Folding Machine Tender 10/14/23 documented as of this encounter
--- OUTSIDE RECORDS SUMMARY | 2024-08-03 16:57 | XMS_ITS | Encounter Summary ---
Author Organization [employer] Address [address] [place] [address] Care Team Providers Care Negative Spotter Name Role Phone Clifford Newell Primary Care Provider + [phone] Encounter Details Date Type Department Care Team (Late st Contact Info) Description 06/20/2024 Orders Only [facility] - [facility] [address] [place] [address] Caleb Pacheco MD [address] [facility] [address] [place] [address] Social History Tobacco Use Types [...] Date Kulwant rded Speak language other than Macedonian at home Not on file 10/05/2023 Want [...] on filedocumented in this encounter Care Teams Negative Spotter Relationship Specialty Start Date End Date Clifford Newell PA [address] [place] [address] Dr [place], [place] [address] PCP - General Physician Oiler Helper 10/14/23 documented as of this encounter
--- OUTSIDE RECORDS SUMMARY | 2024-08-03 16:57 | XMS_ITS | Encounter Summary ---
Author Organization [employer] Address [address] [place] [address] Care Team Providers Care Lay Health Advocate Name Role Phone Clifford Newell Primary Care Provider + [phone] Reason for Visit * Reason Comments Infusion * Episode Based Medication (Routine) - Authorized Specialty Diagnoses / Procedures Referred By Ana Paula anne Referred To Contact Diagnoses Multiple myeloma without remission (HCC) Procedures IA GRANISETRON HCL INJECTION IA INJECTION, ELOTUZUMAB, 1MG Caleb Pacheco MD [address] [facility] [address] [place] [address] Phone: tel: fax: [facility] [address] [place] [address] Phone: tel: fax:[phone] Referral ID Status Reason Start Date Expiration Date V isits Requested Visits Authorized [id number] Authorized 06/19/2024 06/19/2025 1 197 Encounter Details Date Type Department Care Team (Late st Contact Info) Description 07/07/2024 12:15 PM EDT Infusion [facility] [address] [place] [address] Caleb Pacheco MD [address] [facility] [address] [place] [address] Multiple myeloma without remission (HCC) [...] Date Kulwant rded Speak language other than Chinese at home Not on file 10/05/2023 Want [...] as of this encounter Progress Notes * Myla Pelayo RN - 07/07/2024 12:15 PM EDTSummary: discharge 1505: tolerated infusion. DC IV and DC home with son. SM documented in this encounter Plan of Treatment Not on file documented as of this encounter Visit Diagnoses Diagnosis Multiple myeloma without remission (HCC) documented in this encounter Administered Medications Inactive Administered Medications - up to 3 most recent administrations Medication Order MAR Action Action Date Dose Rate Site sodium chloride 0.9 % infusion 2,000 mL Once, intravenous, at 1,000 mL/hr, On Wed07/07/24 at 1430, For 1 dose New Bag 07/07/2024 2:07 PM EDT 2,000 mLs 1000 mL/hr documented in this encounter Care Teams Lay Health Advocate Relationship Specialty Start Date End Date Clifford Newell PA [address] [place] [address] [place] [address] PCP - General Physician Form Drafter 10/14/23 documented as of this encounter
--- OUTSIDE RECORDS SUMMARY | 2024-08-03 16:57 | XMS_ITS | Encounter Summary ---
Author Organization [employer] Address [address] [place] [address] Care Team Providers Care Hunter Trapper Name Role Phone Clifford Newell Primary Care Provider + [phone] Encounter Details Date Type Department Care Team (Latest Contact Info) Description 07/12/2024 Travel Social History Tobacco Use Types Packs/Day [...] Do you speak a language other than [place] at [facility]? No 07/12/2024 Do you want help with [...] on filedocumented in this encounter Care Teams Hunter Trapper Relationship Specialty Start Date End Date Clifford Newell PA [address] [place] [address] [place] [address] PCP - General Physician Diamond Die Maker 10/14/23 documented as of this encounter
--- OUTSIDE RECORDS SUMMARY | 2024-08-03 16:57 | XMS_ITS | Encounter Summary ---
Author Organization [employer] Address [address] [place] [address] Care Team Providers Care Furnace Combustion Tester Name Role Phone Clifford Newell Primary Care Provider + [phone] Reason for Visit * Reason Onset Date Comments diarrhea, weakness,vertigo 07/04/2024 Encounter Details Date Type Department Care Team (Late st Contact Info) Description 07/04/2024 Telephone [facility] - [facility] [address] [facility] [address] [place] [address] Caleb Pacheco MD [address] [facility] [address] [place] [address] diarrhea, weakness,vertigo Social History Tobacco Use Types Packs/Day Years [...] Date Kulwant rded Speak language other than Persian at home Not on file 10/05/2023 Want [...] Telephone Encounter - Nicki Thurston RN - 07/04/2024 10:[address] Pacheco advised Rn to have pt go to ER locally since she lives in [place]. RN notified pt ofabove and she said she will try to find a ride. She is having trouble walking and breathing at the same time due to the weakness. RN encouraged her to call 911 to have ambulance transport her if she i s unable to get family to take her to hospital. She agreed to plan. * Telephone Encounter - Nicki Thurston RN - 07/04/2024 10:00 AM EDT 07/04/24 9:30 am Francy Talley very sick, appt Wednesday but she thinks she needs to be put in hospital. diarrhea, vertigo. not eating. only drinking water, wore out. RN sent message to Dr Pacheco to see if he wants to see her in clinic today or have pt go to ER. Waiting on response. documented in this encounter Plan of Treatment Not on file documented as of this encounter Visit Diagnoses Not on filedocumented in this encounter Care Teams Furnace Combustion Tester Relationship Specialty Start Date End Date Clifford Newell, MARILEE [address] [place] [address] [place] [address] PCP - General Physician Direct Mail Coordinator 10/14/23 documented as of this encounter
--- OUTSIDE RECORDS SUMMARY | 2024-08-03 16:57 | XMS_ITS | Encounter Summary ---
Author Organization [employer] Address [address] [place] [address] Care Team Providers Care Rotary Kiln Operator Name Role Phone Clifford Newell Primary Care Provider + [phone] Encounter Details Date Type Department Care Team (Latest Contact Info) Description 07/07/2024 Travel Social History Tobacco Use Types Packs/Day [...] Date Kulwant rded Speak language other than Maori at home Not on file 10/05/2023 Want [...] on filedocumented in this encounter Care Teams Rotary Kiln Operator Relationship Specialty Start Date End Date Clifford Newell PA [address] [place] [address] [place] [phone] PCP - General Physician Venetian Blind Mechanic 10/14/23 documented as of this encounter
--- OUTSIDE RECORDS SUMMARY | 2024-08-03 16:57 | XMS_ITS | Encounter Summary ---
Author Organization [employer] Address [address] [place] [address] Care Team Providers Care Bone Char Kiln Operator Name Role Phone Clifford Newell Primary Care Provider + [phone] Reason for Visit * Reason Onset Date Comments PT update 07/13/2024 Encounter Details Date Type Department Care Team (Late st Contact Info) Description 07/13/2024 Telephone [facility] - [facility] [address] [facility] [address] [place] [address] Caleb Pacheco MD [address] [facility] [address] [place] [address] PT update Social History Tobacco Use Types Packs/Day Years [...] Do you speak a language other than Czech at [facility]? No 07/12/2024 Do you want [...] Telephone Encounter - Nicki Thurston RN - 07/13/2024 12:39 PM EDT 07/13/24 12:19 pm Greg PT with [facility]. Wanted to let Dr Pacheco know that she did PT home evaluation opening on [facility]. She was not doing well and the sons took her to ER. She was lethargic, in and out of alertness, confused, not able to verbalize any answers to questions,vitals were low. they are happy to see her after she is discharged. [phone] RN sent message notifying Dr Pacheco and his clinic [facility]. documented in this encounter Plan of Treatment Not on file documented as of this encounter Visit Diagnoses Not on filedocumented in this encounter Care Teams Bone Char Kiln Operator Relationship Specialty Start Date End Date Clifford Newell, MARILEE [address] [place] [address] [place] [address] PCP - General Physician Elevator Installer 10/14/23 documented as of this encounter
--- OUTSIDE RECORDS SUMMARY | 2024-08-03 16:57 | XMS_ITS | Encounter Summary ---
Author Organization [employer] Address [address] [place] [address] Care Team Providers Care Fish Hatchery Manager Name Role Phone Clifford Newell Primary Care Provider + [phone] Encounter Details Date Type Department Care Team (Late st Contact Info) Description 06/19/2024 Orders Only [facility] [address] [place] [address] Frank Castanon, PharmD BCPS Social [...] Date Kulwant rded Speak language other than Bangladeshi at home Not on file 10/05/2023 Want [...] on filedocumented in this encounter Care Teams Fish Hatchery Manager Relationship Specialty Start Date End Date Clifford Newell PA [address] [place] [address] [place] [phone] PCP - General Physician Process Helper 10/14/23 documented as of this encounter
--- OUTSIDE RECORDS SUMMARY | 2024-08-03 16:57 | XMS_ITS | Encounter Summary ---
Author Organization [employer] Address [address] [place] [address] Care Team Providers Care Cancer Registry Coordinator Name Role Phone Clifford Newell Primary Care Provider + [phone] Encounter Details Date Type Department Care Team (Latest Contact Info) Description 06/13/2024 Travel Social History Tobacco Use Types Packs/Day [...] Date Kulwant rded Speak language other than Polish at home Not on file 10/05/2023 Want [...] on filedocumented in this encounter Care Teams Cancer Registry Coordinator Relationship Specialty Start Date End Date Clifford Newell PA [address] [place] [address] [place] [phone] PCP - General Physician Housing Inspectors 10/14/23 documented as of this encounter
--- OUTSIDE RECORDS SUMMARY | 2024-08-03 16:57 | XMS_ITS | Encounter Summary ---
Author Organization [employer] Address [address] [place] [address] Care Team Providers Care Quick Print Operator Name Role Phone Clifford Newell Primary Care Provider + [phone] Encounter Details Date Type Department Care Team (Late st Contact Info) Description 07/07/2024 Documentation [facility] [address] [facility] [address] [place] [address] Caleb Pacheco MD [address] [facility] [address] [place] [address] Social History Tobacco Use Types [...] as of this encounter Progress Notes * Camilla Barbosa RN - 07/07/2024 1:59 PM EDT order documented in this encounter Plan of Treatment Not on file documented as of this encounter Visit Diagnoses Not on filedocumented in this encounter Care Teams Quick Print Operator Relationship Specialty Start Date End Date Clifford Newell PA [address] [place] [address] [place] [address] PCP - General Physician Hatchery Helper 10/14/23 documented as of this encounter
--- OUTSIDE RECORDS SUMMARY | 2024-08-03 16:57 | XMS_ITS | Encounter Summary ---
Author Organization [employer] Address [address] [place] [address] Care Team Providers Care Plaster Patternmaker Name Role Phone Clifford Newell Primary Care Provider + [phone] Reason for Visit * Reason Comments Chemotherapy * Episode Based Medication (Routine) - Closed Specialty Diagnoses / Procedures Referred By Ana Paula anne Referred To Contact Diagnoses Multiple myeloma without remission (HCC) Procedures GA GRANISETRON HCL INJECTION GA INJECTION, CARFILZOMIB, 1 MG Caleb Pacheco MD [address] [place] [address] Phone: tel: fax: [facility] [address] [place] [address] Phone: tel: fax:[phone] Referral ID Status Reason Start Date Expiration Date Visits Re quested Visits Authorized [id number] Closed 02/17/2024 02/17/2025 1 193 Encounter Details Date Type Department Care Team (Late st Contact Info) Description 06/06/2024 11:00 AM EDT Infusion [facility] [address] [place] [address] Caleb Pacheco MD [address] [place] [address] Multiple myeloma without remission (HCC) (Primary Dx); Pain in both lower extremities Social History Tobacco Use Types Packs/Day Years [...] rded Speak language other than Citizen [place] at home Not on file 10/05/2023 Want [...] Sign Reading Time Taken Comments Blood Pressure 119/54 06/06/2024 11:00 AM EDT Pulse 77 06/06/2024 11:00 AM EDT Temperature 36.6 ??C (97.8 ??F) 06/06/2024 11:00 AM E DT Respiratory Rate - - Oxygen Saturation 97% 06/06/2024 11:00 AM EDT Inhaled Oxygen Concentration - - Weight - - Height - - Body Mass Index - - documented in this encounter Progress Notes * Adelaida Leal RN - 06/06/2024 11:00 AM EDT Pt tolerated infusion and injection well. PIV removed, catheter intact, dressing applied. Discharged in stable condition, aware of next appts documented in this encounter Miscellaneous Notes * Addendum Note - Debra Castanon PharmD BCPS - 06/06/2024 11:00 AM EDTAddended by: DEBRA CASTANON on: 06/06/2024 01:28 PM Modules accepted: Orders documented in this encounter Plan of Treatment Not on file documented as of this encounter Procedures Procedure Name Priority Date/Time Associated Diagnosis Comments ONOCOLOGY CHEMISTRY PANEL STAT 06/06/2024 11:11 AM EDT Multiple myeloma without remission (HCC) CBC W/ AUTO DIFF STAT 06/06/2024 10:5 2 AM EDT Multiple myeloma without remission (HCC) documented in this encounter Results * (ABNORMAL) BMP (Onc - [facility], [facility]) (06/06/2024 11:11 AM EDT) Sodium 141 136 - 146 meq/L 06/06/2024 [...] Res ult [facility] [facility] [address] [phone] * (ABNORMAL) CBC with Automated Diff (06/06/2024 10:52 AM EDT) WBC 3.0(L) 4.5 - 12.5 K/??L 06/06/2024 11:27 AM EDT [facility] RBC 2.93(L) 4.00 - 5.25 M/??L 06/06/2024 11:27 AM EDT [facility] Hemoglobin 9.8(L) 12.0 - 16.0 GM/DL 06/06/2024 11:27 AM EDT [facility] Hematocrit 32.1(L) 36.0 - 46.0 % 06/06/2024 11:27 AM EDT [facility] MCV 110(H) 80 - 100 fL 06/06/2024 11:27 AM EDT [facility] MCH 33.4 26.0 - 34.0 pg 06/06/2024 11:27 AM EDT [facility] MCHC 30.5(L) 31.0 - 37.0 GM/DL 06/06/2024 11:27 AM EDT [facility] RDW 13.9 12.0 - 16.8 % 06/06/2024 11:27 AM EDT [facility] Platelets 198 140 - 440 K/CU MM 06/06/2024 11:27 AM EDT [facility] MPV 10.4 7.4 - 10.4 fL 06/06/2024 11:27 AM EDT [facility] % Neutros 53 45 - 80 % 06/06/2024 11:27 AM EDT [facility] % Lymphs 31 15 - 45 % 06/06/2024 11:27 AM EDT [facility] % Monos 14(H) 0 - 10 % 06/06/2024 11:27 AM EDT [facility] % Eos 1 0 - 5 % 06/06/2024 11:27 AM EDT [facility] % Baso 1 0 - 3 % 06/06/2024 11:27 AM EDT [facility] # Neutros 1.62(L) 2.00 - 8.80 K/??L 06/06/2024 11:27 AM EDT [facility] # Lymphs 0.93 0.70 - 5.50 K/??L 06/06/2024 11:27 AM EDT [facility] # Monos 0.42 0.00 - 1.70 K/??L 06/06/2024 11:27 AM EDT [facility] # Eos 0.04 0.00 - 0.80 K/??L 06/06/2024 11:27 AM EDT [facility] # Baso 0.02 0.00 - 0.20 K/??L 06/06/2024 11:27 AM EDT [facility] Blood ENTIRE RIGHT UPPER ARM / Unknown Venipuncture / Unknown 06/06/2024 10:52 AM EDT 06/06/2024 11:23 AM EDT Narrative [facility] - 06/06/2024 11:27 AM EDT When CBC w/ Auto Diff [...] ORDERABLES Final Res ult [facility] [address] [place] [address], [facility] [phone] documented in this encounter Visit Diagnoses Diagnosis Multiple myeloma without remission (HCC)- Primary Pain in both lower extremities documented in this encounter Administered Medications Inactive Administered Medications - up to 3 most recent administrations Medication Order MAR Action Action Date Dose Rate Site acetaminophen (TYLENOL) tablet 650 mg 650 mg Once, oral, On Wed06/06/24 at 1300, For 1 dose, Recommended maximum dose of acetaminophen is 4000 mg from all sources in 24 hoursIndications:Pain in both lower extremities Given 06/06/2024 12:24 PM EDT 650 mg carfilzomib 120 mg in dextrose 5 % (D5W) 170 mL chemo infusion 120 mg Once, intravenous, Administer over 30 Minutes, On Wed06/06/24 at 1230, For 1 dose, Chemo IV Set #: [id number] BSA = 2.2m2 (Max BSA for regimen) Reconstitute 60mg vial with 29mL SWFI Carfilzomib = 60mL Caution: Recommend wearing double gloves and protective gown during administration. Employees who are , trying to become , or should not handle this medication. Dispose of trace chemotherapy (including packaging) in the YELLOW waste bin.Indications:Multip le myeloma without remission (HCC) IVPB Started 06/06/2024 12:15 PM EDT 120 mg 340 mL/hr denosumab (XGEVA) subcutaneous injection 120 mg 120 mg Once, subcutaneous, On Wed06/06/24 at 1200, For 1 dose, * Refrigerated * Bring to room temperature 15 to 30 minutes prior to administration., This medication is restricted to use in outpatients only. Is this patient in outpatient status? YesIndications:Multipl e myeloma without remission (HCC) Given 06/06/2024 12:51 PM EDT 120 mg Abdominal Tissue dexAMETHasone (DECADRON) 20 mg in sodium chloride 0.9 % (NS) 50 mL IVPB 20 mg Once, intravenous, Administer over 5 Minutes, On Wed06/06/24 at 1200, For 1 dose, Protect from Light.Indications:Mult iple myeloma without remission (HCC) IVPB Started 06/06/2024 11:38 AM EDT 20 mg 756 mL/hr dextrose 5 % infusion 500 mL Once, intravenous, at 100 mL/hr, On Wed06/06/24 at 1200, For 1 dose, Infuse at 100 ml/hr for the duration of treatment. May increase or decrease rate as needed.Indications:Mul tiple myeloma without remission (HCC) New Bag 06/06/2024 11:37 AM EDT 500 mLs 100 mL/hr diphenhydrAMINE (BENADRYL) injection 25 mg 25 mg Once, intravenous, On Wed06/06/24 at 1200, For 1 doseIndications:Multip le myeloma without remission (HCC) Given 06/06/2024 11:37 AM EDT 25 mg famotidine (PF) injection 20 mg 20 mg Once, intravenous, On Wed06/06/24 at 1200, For 1 dose, Pharmacist to renally dose if CrCl is less than 50 mL/min or on CRRT.Indications:Multi ple myeloma without remission (HCC) Given 06/06/2024 11:37 AM EDT 20 mg granisetron (KYTRIL) injection 1 mg 1 mg Once, intravenous, On Wed06/06/24 at 1200, For 1 doseIndications:Multip le myeloma without remission (HCC) Given 06/06/2024 11:37 AM EDT 1 mg documented in this encounter Care Teams Plaster Patternmaker Relationship Specialty Start Date End Date Clifford Newell PA [address] [place] [address] [place] [address] PCP - General Physician Signal Tower Operator 10/14/23 documented as of this encounter
--- OUTSIDE RECORDS SUMMARY | 2024-08-03 16:57 | XMS_ITS | Encounter Summary ---
Author Organization [employer] Address [address] [place] [address] Care Team Providers Care Managed Services Consultant Name Role Phone Clifford Newell Primary Care Provider + [phone] Reason for Visit * Reason Comments Follow-up Multiple myeloma wit hout remission (HCC) Multiple Myeloma Encounter Details Date Type Department Care Team (Late st Contact Info) Description 06/13/2024 1:15 PM EDT Office Visit [facility] - [address] [place] [address] Caleb Pacheco MD [address] [facility] [address] [place] [address] Multiple myeloma without remission (HCC) [...] Date Kulwant rded Speak language other than Slovenian at home Not on file 10/05/2023 Want [...] Sign Reading Time Taken Comments Blood Pressure - - Pulse - - Temperature - - Respiratory Rate 18 06/13/2024 2:50 PM EDT Oxygen Saturation - - Inhaled Oxygen Concentration - - Weight - - Height 170.2 cm (5' 7 ) 06/13/2024 2:50 PM EDT Body Mass Index - - documented in this encounter Progress Notes * Caleb Pacheco MD - 06/13/2024 1:15 PM EDT Chief Complaint: History of Present Illness: Francy Bailey is a 63 y.o. female who presents today for follow up of multiple myeloma. She is currently on carfilzomib. She cannot tolerate the pomalidomide with it. She is had increasing leg pain. This is below the knees. She does not have painful numbness in her feet but she does say they feel like they are asleep. She has had really no other bone pain other sites. And is without other additional or new complaints Past Medical History: Diagnosis Date Asthma Autologous [...] P. Stopped pomalidomide due to cytopenias 04/10/2024 Multiple myeloma without remission (HCC) 06/16/2022 Initial Diagnosis Multiple myeloma without remission (HCC) 11/03/2022 - 01/11/2024 Chemotherapy Treatment Summary Treatment goal Palliative Plan Name [facility] Multiple Myeloma - daratumumab (Darzalex) IV d1,8,15,22 fb D1,15 fb d1 + pomalidomide(Pomalyst) PO d1-21 every 28 days Status Inactive Start Date 11/03/2022 End Date 01/11/2024 Provider Caleb Pacheco MD Chemotherapy pomalidomide 4 mg Cap, 4 mg, Oral, Daily, 1 of 1 cycle, Start date: --, End date: -- [id number] (DARZALEX FASPRO) 1,800 mg-30,000 unit/15 mL subcutaneous [...] mg (12/14/2023), 1,800 mg (01/11/2024) 02/29/2024 - Chemotherapy Treatment Summary Treatment goal Palliative Plan Name [facility] Multiple Myeloma - carfilzomib (Kyprolis) 20/56 days 1,8,15 + pomalidomide (Pomalyst)1mg PO days 1-21 + Dexamethasone weekly every 28 days Status Active Start Date 02/29/2024 End Date 01/23/2025 (Planned) Provider Caleb Pacheco MD Chemotherapy carfilzomib 43 [...] (05/26/2024), 120 mg (06/06/2024), 120 mg (06/13/2024) Allergies: Ampicillin, Codeine, Indomethacin, Morphine, and Penicillin [...] mouth 2 (two) times daily as needed. ergocalciferol (ERGOCALCIFEROL) 1,250 mcg (50,000 unit) capsule Take 1 capsule (50,000 Units total)by mouth once a week. fluticasone propionate (FLONASE) 50 mcg/actuation nasal spray [...] tablet (25 mg total) by mouth daily. OneTouch Verio test strips Strp 2 (two) [...] ProAir HFA 90 mcg/actuation inhaler 2 puffs. simvastatin (ZOCOR) 10 MG tablet Take 1 [...] tablet SMARTSI Tablet(s) By Mouth Every Evening No current facility-administered medications on file prior to visit. Review of Systems: Review of Systems Neurological: Positive for numbness. All other systems reviewed and are negative. Vitals: Vitals: 06/13/24 1450 Resp: 18 Height: 1.702 m (5' 7 ) Physical Exam: Physical Exam Vitals reviewed. [...] normal. Palpations: Abdomen is soft. Comments: No hepato or splenomegaly below the costal margin Musculoskeletal: General: Normal range of motion. Cervical back: Normal range of motion and neck supple. Comments: She has significant pain when I palpate her soft tissue below the knee especially in the calves. There is no swelling erythema or other abnormality. Neurological: General: No focal deficit present. Mental Status: She is alert. Relevant Results: Office Visit on 06/13/2024 Component Date Value Ref Range Status WBC 06/13/2024 4.0 (L) 4.5 - 12.5 K/??L Final RBC 06/13/2024 2.44 (L) 4.00 - 5.25 M/??L Final Hemoglobin 06/13/2024 8.3 (L) 12.0 - 16.0 GM/DL Final Hematocrit 06/13/2024 26.5 (L) 36.0 - 46.0 % Final MCV 06/13/2024 109 (H) 80 - 100 fL Final MCH 06/13/2024 34.0 26.0 - 34.0 pg Final MCHC 06/13/2024 31.3 31.0 - 37.0 GM/DL Final RDW 06/13/2024 13.9 12.0 - 16.8 % Final Platelets 06/13/2024 216 140 - 440 K/CU MM Final MPV 06/13/2024 12.5 (H) 7.4 - 10.4 fL Final % Neutros 06/13/2024 62 45 - 80 % Final % Lymphs 06/13/2024 25 15 - 45 % Final % Monos 06/13/2024 12 (H) 0 - 10 % Final % Eos 06/13/2024 1 0 - 5 % Final % Baso 06/13/2024 1 0 - 3 % Final # Neutros 06/13/2024 2.49 2.00 - 8.80 K/??L Final # Lymphs 06/13/2024 0.99 0.70 - 5.50 K/??L Final # Monos 06/13/2024 0.46 0.00 - 1.70 K/??L Final # Eos 06/13/2024 0.05 0.00 - 0.80 K/??L Final # Baso 06/13/2024 0.02 0.00 - 0.20 K/??L Final Infusion on 06/06/2024 Component Date Value Ref Range Status WBC 06/06/2024 3.0 (L) 4.5 - 12.5 K/??L Final RBC 06/06/2024 2.93 (L) 4.00 - 5.25 M/??L Final Hemoglobin 06/06/2024 9.8 (L) 12.0 - 16.0 GM/DL Final Hematocrit 06/06/2024 32.1 (L) 36.0 - 46.0 % Final MCV 06/06/2024 110 (H) 80 - 100 fL Final MCH 06/06/2024 33.4 26.0 - 34.0 pg Final MCHC 06/06/2024 30.5 (L) 31.0 - 37.0 GM/DL Final RDW 06/06/2024 13.9 12.0 - 16.8 % Final Platelets 06/06/2024 198 140 - 440 K/CU MM Final MPV 06/06/2024 10.4 7.4 - 10.4 fL Final % Neutros 06/06/2024 53 45 - 80 % Final % Lymphs 06/06/2024 31 15 - 45 % Final % Monos 06/06/2024 14 (H) 0 - 10 % Final % Eos 06/06/2024 1 0 - 5 % Final % Baso 06/06/2024 1 0 - 3 % Final # Neutros 06/06/2024 1.62 (L) 2.00 - 8.80 K/??L Final # Lymphs 06/06/2024 0.93 0.70 - 5.50 K/??L Final # Monos 06/06/2024 0.42 0.00 - 1.70 K/??L Final # Eos 06/06/2024 0.04 0.00 - 0.80 K/??L Final # Baso 06/06/2024 0.02 0.00 - 0.20 K/??L Final Sodium 06/06/2024 141 136 - 146 meq/L Final Potassium 06/06/2024 3.8 3.5 - 5.1 meq/L Final Chloride 06/06/2024 105 98 - 108 meq/L Final CO2 06/06/2024 24 22 - 29 meq/L Final Anion Gap 06/06/2024 16 9 - 20 Final BUN 06/06/2024 9 7 - 18 mg/dL Final Creatinine 06/06/2024 1.10 0.60 - 1.10 mg/dL Final BUN/Creatinine 06/06/2024 8 8 - 20 Final Glucose 06/06/2024 118 (H) 70 - 105 mg/dL Final Calcium Ionized (mg/dL) 06/06/2024 4.95 4.36 - 5.20 mg/dL Final Office Visit on 05/26/2024 Component Date Value Ref Range Status Protein, Total 05/26/2024 7.9 6.4 - 8.2 gm/dL Final Albumin 05/26/2024 2.6 (L) 3.4 - 5.0 g/dL Final Total Bilirubin 05/26/2024 0.5 0.2 - 1.3 mg/dL Final Bilirubin, Direct 05/26/2024 0.2 0.0 - 0.2 mg/dL Final Alkaline Phosphatase 05/26/2024 54 27 - 136 U/L Final Globulin 05/26/2024 5.3 (H) 1.5 - 4.5 g/dL Final A/G Ratio 05/26/2024 0.5 (L) 1.1 - 2.5 Final AST 05/26/2024 17 5 - 37 U/L Final [employer] has become aware of sulfasalazine and sulfapyridine [...] prior to administration of the drug. ALT 05/26/2024 12 12 - 78 U/L Final [employer] has become aware of sulfasalazine and sulfapyridine [...] occur prior to administration of the drug. Sodium 05/26/2024 143 136 - 146 meq/L Final Potassium 05/26/2024 3.9 3.5 - 5.1 meq/L Final Chloride 05/26/2024 111 (H) 98 - 108 meq/L Final CO2 05/26/2024 25 22 - 29 meq/L Final Anion Gap 05/26/2024 11 9 - 20 Final BUN 05/26/2024 13 7 - 18 mg/dL Final Creatinine 05/26/2024 0.90 0.60 - 1.10 mg/dL Final BUN/Creatinine 05/26/2024 14 8 - 20 Final Glucose 05/26/2024 81 70 - 105 mg/dL Final Calcium Ionized (mg/dL) 05/26/2024 5.03 4.36 - 5.20 mg/dL Final WBC 05/26/2024 4.7 4.5 - 12.5 K/??L Final RBC 05/26/2024 2.53 (L) 4.00 - 5.25 M/??L Final Hemoglobin 05/26/2024 8.5 (L) 12.0 - 16.0 GM/DL Final Hematocrit 05/26/2024 27.9 (L) 36.0 - 46.0 % Final MCV 05/26/2024 110 (H) 80 - 100 fL Final MCH 05/26/2024 33.6 26.0 - 34.0 pg Final MCHC 05/26/2024 30.5 (L) 31.0 - 37.0 GM/DL Final RDW 05/26/2024 14.5 12.0 - 16.8 % Final Platelets 05/26/2024 198 140 - 440 K/CU MM Final MPV 05/26/2024 9.9 7.4 - 10.4 fL Final % Neutros 05/26/2024 74 45 - 80 % Final % Lymphs 05/26/2024 18 15 - 45 % Final % Monos 05/26/2024 8 0 - 10 % Final % Eos 05/26/2024 1 0 - 5 % Final % Baso 05/26/2024 0 0 - 3 % Final # Neutros 05/26/2024 3.42 2.00 - 8.80 K/??L Final # Lymphs 05/26/2024 0.82 0.70 - 5.50 K/??L Final # Monos 05/26/2024 0.37 0.00 - 1.70 K/??L Final # Eos 05/26/2024 0.03 0.00 - 0.80 K/??L Final # Baso 05/26/2024 0.01 0.00 - 0.20 K/??L Final No results found. Cancer Staging No matching staging information was found for the patient. Plan: Her hemoglobin is down to 8-1/2 but her white blood count and platelet count are fine. Her chemistries are pending. I want her to have her immunoelectrophoresis and free light chain ratio performed today I will see her back in 2 weeks. At that point will make decisions about continuing or disc ontinuing the present treatment since I am concerned that carfilzomib may be leading to her lower extremity discomfort. I did write a prescription for duloxetine for her and see if it will help with some of this discomfort in the meantime. Did receive the carfilzomib today 120 mg over about 30 minutes premedicated with Benadryl 25 Pepcid 20 dexamethasone 20 and Kytril 1 mg IV. I have answered herquestions Signed: Electronically signed by Caleb Pacheco MD 06/13/24 5:15 PM EDT MARILEE Muñoz documented in this encounter Plan of Treatment Not on file documented as of this encounter Procedures Procedure Name Priority Date/Time Associated Diagnosis Comments CBC W/ AUTO DIFF STAT 06/13/2024 2:43 PM EDT Multiple myeloma without remission (HCC) documented in this encounter Results * (ABNORMAL) CBC with Automated Diff (06/13/2024 2:43 PM EDT) WBC 4.0(L) 4.5 - 12.5 K/??L 06/13/2024 [...] 06/13/2024 2:58 PM EDT [facility] Blood Venipuncture / Unknown 06/13/2024 2:43 PM [...] Res ult [facility] [address] [place] [address], [facility] [phone] documented in this encounter Visit Diagnoses Diagnosis Multiple myeloma without remission (HCC) documented in this encounter Care Teams Managed Services Consultant Relationship Specialty Start Date End Date Clifford Newell PA [address] [place] [address] [place] [address] PCP - General Physician Major Donor Coordinator 10/14/23 documented as of this encounter
--- OUTSIDE RECORDS SUMMARY | 2024-08-03 16:57 | XMS_ITS | Encounter Summary ---
Author Organization [email or web address] Address [address] [place] [address] Care Team Providers Care Outreach Analyst Name Role Phone Clifford Newell Primary Care Provider + [phone] Encounter Details Date Type Department Care Team (Late st Contact Info) Description 06/20/2024 Orders Only [facility] [address] [place] [address] Caleb Pacheco MD [address] [facility] [address] [place] [address] Multiple myeloma without remission (HCC) [...] out past 12 months Not on file 01/1 02/2024 Food did not last past 12 months Not on file 10/05/2023 Employment Answer Date Recorded Help finding and keeping a job Not on file 0 10/05/2023 Family and Community Support Answer Baudilio e Recorded Help with Day to Day Activities Not on file 10/05/2023 Feeling Lonely or Isolated Not on file 10/05 Educational Attainment Answer Date Kulwant rded Speak language other than Albanian at home Not on file 10/05/2023 Want [...] of this encounter Plan of Treatment Scheduled Orders Name Type Priority Associated Diagnoses Orde r Schedule CBC with Automated Diff Lab STAT Multiple myeloma without remission (HCC) Expected: 07/07/2024, Expires: 10/07/2024 Oncology Basic Metabolic Panel Lab Routine Multiple myeloma without remission (HCC) Expected: 07/07/2024, Expires: 10/05/2024 Hepatic function panel Lab Routine Multiple myeloma without remission (HCC) Expected: 07/07/2024, Expires: 07/07/2025 documented as of this encounter Visit Diagnoses Diagnosis Multiple myeloma without remission (HCC)- Primary documented in this encounter Care Teams Outreach Analyst Relationship Specialty Start Date End Date Clifford Newell PA [address] [place] [address] [place] [address] PCP - General Physician Call Center Support Representative 10/14/23 documented as of this encounter
--- OUTSIDE RECORDS SUMMARY | 2024-08-03 16:58 | XMS_ITS | Encounter Summary ---
Author Organization [employer] Address [address] [place] [address] Care Team Providers Care Boat Ride Operator Name Role Phone Clifford Newell Primary Care Provider + [phone] Encounter Details Date Type Department Care Team (Latest Contact Info) Description 05/12/2024 Travel Social History Tobacco Use Types Packs/Day [...] Date Kulwant rded Speak language other than Upper Sorbian at home Not on file 10/05/2023 Want [...] on filedocumented in this encounter Care Teams Boat Ride Operator Relationship Specialty Start Date End Date Clifford Newell PA [address] [place] [address] J[place] Ling [address] PCP - General Physician Sales Program Coordinator 10/14/23 documented as of this encounter
--- OUTSIDE RECORDS SUMMARY | 2024-08-03 16:58 | XMS_ITS | Encounter Summary ---
Author Organization [employer] Address [address] [place] [address] Care Team Providers Care Embedded Engineer Name Role Phone Clifford Newell Primary Care Provider + [phone] Encounter Details Date Type Department Care Team (Late st Contact Info) Description 05/19/2024 Orders Only [facility] [place] [address] Caleb Pacheco MD [address] [facility] [address] [place] [address] Multiple myeloma without remission (HCC) [...] Date Kulwant rded Speak language other than Georgian at home Not on file 10/05/2023 Want [...] on file documented as of this encounter Results * (ABNORMAL) Hepatic function panel (05/26/2024 11:43 AM EDT) Protein, Total 7.9 6.4 - 8.2 gm/dL 05/26/2024 1:12 PM EDT [facility] Albumin 2.6(L) 3.4 - 5.0 g/dL 05/26/2024 1:12 PM EDT [facility] Total Bilirubin 0.5 0.2 - 1.3 mg/dL 05/26/2024 1:12 PM EDT [facility] Bilirubin, Direct 0.2 0.0 - 0.2 mg/dL 05/26/2024 1:12 PM EDT [facility] Alkaline Phosphatase 54 27 - 136 U/L 05/26/2024 1:12 PM EDT [facility] Globulin 5.3(H) 1.5 - 4.5 g/dL 05/26/2024 1:12 PM EDT [facility] A/G Ratio 0.5(L) 1.1 - 2.5 05/26/2024 1:12 PM EDT [facility] AST 17 5 - 37 U/L 05/26/2024 1:12 PM EDT [facility] Comment:[facility] has become aware of sulfasalazine and sulfapyridine [...] prior to administration of the drug. ALT 12 12 - 78 U/L 05/26/2024 1:12 PM EDT [facility] Comment:[facility] has become aware of sulfasalazine and sulfapyridine [...] prior to administration of the drug. Blood ENTIRE RIGHT UPPER ARM / Unknown Venipuncture / Unknown 05/26/2024 11:43 AM EDT 05/26/2024 11:48 AM EDT us Caleb Pacheco MD LAB BLOOD ORDERABLES Final Res ult [facility] [address] [phone] * (ABNORMAL) Oncology Basic Metabolic Panel (05/26/2024 11:43 AM EDT) Sodium 143 136 - 146 meq/L 05/26/2024 11:53 AM EDT [facility] Potassium 3.9 3.5 - 5.1 meq/L 05/26/2024 11:53 AM EDT [facility] Chloride 111(H) 98 - 108 meq/L 05/26/2024 11:53 AM EDT [facility] CO2 25 22 - 29 meq/L 05/26/2024 11:53 AM EDT [facility] Anion Gap 11 9 - 20 05/26/2024 11:53 AM EDT [facility] BUN 13 7 - 18 mg/dL 05/26/2024 11:53 AM EDT [facility] Creatinine 0.90 0.60 - 1.10 mg/dL 05/26/2024 11:53 AM EDT [facility] BUN/Creatinine 14 8 - 20 05/26/2024 11:53 AM EDT [facility] Glucose 81 70 - 105 mg/dL 05/26/2024 11:53 AM EDT [facility] Calcium Ionized (mg/dL) 5.03 4.36 - 5.20 mg/dL 05/26/2024 11:53 AM EDT [facility] Blood ENTIRE RIGHT UPPER ARM / Unknown Venipuncture / Unknown 05/26/2024 11:43 AM EDT 05/26/2024 11:48 AM EDT us Caleb Pacheco MD LAB BLOOD ORDERABLES Final Res ult [facility] [address] [phone] * (ABNORMAL) CBC with Automated Diff (05/26/2024 11:43 AM EDT) WBC 4.7 4.5 - 12.5 K/??L 05/26/2024 11:53 AM EDT [facility] RBC 2.53(L) 4.00 - 5.25 M/??L 05/26/2024 11:53 AM EDT [facility] Hemoglobin 8.5(L) 12.0 - 16.0 GM/DL 05/26/2024 11:53 AM EDT [facility] Hematocrit 27.9(L) 36.0 - 46.0 % 05/26/2024 11:53 AM EDT [facility] MCV 110(H) 80 - 100 fL 05/26/2024 11:53 AM EDT [facility] MCH 33.6 26.0 - 34.0 pg 05/26/2024 11:53 AM EDT [facility] MCHC 30.5(L) 31.0 - 37.0 GM/DL 05/26/2024 11:53 AM EDT [facility] RDW 14.5 12.0 - 16.8 % 05/26/2024 11:53 AM EDT [facility] Platelets 198 140 - 440 K/CU MM 05/26/2024 11:53 AM EDT [facility] MPV 9.9 7.4 - 10.4 fL 05/26/2024 11:53 AM EDT [facility] % Neutros 74 45 - 80 % 05/26/2024 11:53 AM EDT [facility] % Lymphs 18 15 - 45 % 05/26/2024 11:53 AM EDT [facility] % Monos 8 0 - 10 % 05/26/2024 11:53 AM EDT [facility] % Eos 1 0 - 5 % 05/26/2024 11:53 AM EDT [facility] % Baso 0 0 - 3 % 05/26/2024 11:53 AM EDT [facility] # Neutros 3.42 2.00 - 8.80 K/??L 05/26/2024 11:53 AM EDT [facility] # Lymphs 0.82 0.70 - 5.50 K/??L 05/26/2024 11:53 AM EDT [facility] # Monos 0.37 0.00 - 1.70 K/??L 05/26/2024 11:53 AM EDT [facility] # Eos 0.03 0.00 - 0.80 K/??L 05/26/2024 11:53 AM EDT [facility] # Baso 0.01 0.00 - 0.20 K/??L 05/26/2024 11:53 AM EDT [facility] Blood ENTIRE RIGHT UPPER ARM / Unknown Venipuncture / Unknown 05/26/2024 11:43 AM EDT 05/26/2024 11:48 AM EDT Narrative [facility] - 05/26/2024 11:53 AM EDT When CBC w/ Auto Diff [...] ORDERABLES Final Res ult [facility] [place] [address] [place] [address], [facility] [phone] documented in this encounter Visit Diagnoses Diagnosis Multiple myeloma without remission (HCC)- Primary documented in this encounter Care Teams Embedded Engineer Relationship Specialty Start Date End Date Clifford Newell PA [address] [place] [address] [place] [address] PCP - General Physician Bricklayer Sewer 10/14/23 documented as of this encounter
--- OUTSIDE RECORDS SUMMARY | 2024-08-03 16:58 | XMS_ITS | Encounter Summary ---
Author Organization [employer] Address [address] [place] [address] Care Team Providers Care Automobile Body Repairer Name Role Phone Clifford Newell Primary Care Provider + [phone] Encounter Details Date Type Department Care Team (Latest Contact Info) Description 04/24/2024 Travel Social History Tobacco Use Types Packs/Day [...] Date Kulwant rded Speak language other than Slovak at home Not on file 10/05/2023 Want [...] on filedocumented in this encounter Care Teams Automobile Body Repairer Relationship Specialty Start Date End Date Clifford Newell PA [address] [place] [address] [place] [address] PCP - General Physician Body Recall Instructor 10/14/23 documented as of this encounter
--- OUTSIDE RECORDS SUMMARY | 2024-08-03 16:58 | XMS_ITS | Encounter Summary ---
Author Organization [employer] Address [address] [place] [address] Care Team Providers Care Glass Robot Operator Name Role Phone Clifford Newell Primary Care Provider + [phone] Reason for Visit * Reason Onset Date Comments appointment change request 05/29/2024 Encounter Details Date Type Department Care Team (Late st Contact Info) Description 05/29/2024 Telephone [facility] [address] [facility] [address] [place] [address] Caleb Pacheco MD [address] [facility] [address] [place] [address] appointment change request Social History Tobacco Use Types Packs/Day Years [...] Date Kulwant rded Speak language other than Rwandan at home Not on file 10/05/2023 Want [...] Telephone Encounter - Camilla Barbosa RN - 06/02/2024 9:51 AM EDT Pt infusion appt rescheduled to 06/06. * Telephone Encounter - Wolfgang Godinez RN - 06/02/2024 9:33 AM EDT Pt called this morning to cancel today's appt and change to Wednesday. Returned call and went straightto . Camilla can you try to call her from clinic? Nicki and I have been trying to reach her all week without any success. * Telephone Encounter - Nicki Thurston RN - 06/01/2024 12:10 PM EDT LM to have pt return call. * Telephone Encounter - Wolfgang Godinez RN - 05/31/2024 12:41 PM EDT LVM requesting return call to reschedule. * Telephone Encounter - Nicki Thurston RN - 05/30/2024 9:46 AM EDT LM to have pt return call. * Telephone Encounter - Nicki Thurston RN - 05/29/2024 2:58 PM EDT LM to have pt return call. * Telephone Encounter - Nicki Thurston RN - 05/29/2024 12:34 PM EDT LM to have pt return call. * Telephone Encounter - Nicki Thurston RN - 05/29/2024 10:[address] Pacheco gave okay to move appt on 06/02 to next Wed or . Rn LM to have pt return call to move appt. * Telephone Encounter - Nicki Thurston RN - 05/29/2024 9:43 AM EDT Pt called into RN line stating she would like to know if she can get in for appt on Mon or Tu. She is in [place] and this would make it easier for her. RN reviewed chart and pt is scheduled on 06/02/24 for Xgeva and Kyprolis. Pt will be seeing DR Pacheco next on 06/13/24. RN sent message to Dr Pacheco to see if okay to postpone treatment appointment to next Mon or , waiting on response. documented in this encounter Plan of Treatment Not on file documented as of this encounter Visit Diagnoses Not on filedocumented in this encounter Care Teams Glass Robot Operator Relationship Specialty Start Date End Date Clifford Newell, MARILEE [address] [place] [address] [place] [address] PCP - General Physician Manager Endoscopy 10/14/23 documented as of this encounter
--- OUTSIDE RECORDS SUMMARY | 2024-08-03 16:58 | XMS_ITS | Encounter Summary ---
Author Organization [employer] Address [address] [place] [address] Care Team Providers Care Supervisor Endless Track Vehicle Name Role Phone Clifford Newell Primary Care Provider + [phone] Reason for Visit * Reason Comments Infusion Injections * Episode Based Medication (Routine) - Closed Specialty Diagnoses / Procedures Referred By Ana Paula anne Referred To Contact Diagnoses Multiple myeloma without remission (HCC) Procedures VT GRANISETRON HCL INJECTION VT INJECTION, CARFILZOMIB, 1 MG Caleb Pacheco MD [address] [place] [address] Phone: tel: fax: [facility] [address] [place] [address] Phone: tel: fax: Referral ID Status Reason Start Date Expiration Date Visits Re quested Visits Authorized [id number] Closed 02/17/2024 02/17/2025 1 193 Encounter Details Date Type Department Care Team (Late st Contact Info) Description 05/26/2024 12:30 PM EDT Infusion [facility] [address] [place] [address] Caleb Pacheco MD [address] [place] [address] Multiple myeloma without remission (HCC) [...] as of this encounter Progress Notes * Adelaida Leal RN - 05/26/2024 12:30 PM EDT Pt tolerated infusion well. PIV removed, catheter tip intact, dressing applied. Discharged in stable condition, aware of next appts documented in this encounter Plan of Treatment Not on file documented as of this encounter Visit Diagnoses Diagnosis Multiple myeloma without remission (HCC)- Primary documented in this encounter Administered Medications Inactive Administered Medications - up to 3 most recent administrations Medication Order MAR Action Action Date Dose Rate Site carfilzomib 120 mg in dextrose 5 % 170 mL chemo infusion 120 mg Once, intravenous, Administer over 30 Minutes, On Wed05/26/24 at 1430, For 1 dose, Chemo IV Set #: [id number] BSA = 2.2m2 (Max BSA for regimen) Reconstitute 60mg vial with 29mL SWFI Carfilzomib = 60mL Caution: Recommend wearing double gloves and protective gown during administration. Employees who are , trying to become , or should not handle this medication. Dispose of trace chemotherapy (including packaging) in the YELLOW waste bin.Indications:Multiple myeloma without remission (HCC) IVPB Started 05/26/2024 2:09 PM EDT 120 mg 340 mL/hr dexAMETHasone (DECADRON) 20 mg in sodium chloride 0.9 % (NS) 50 mL IVPB 20 mg Once, intravenous, Administer over 5 Minutes, On Wed05/26/24 at 1400, For 1 dose, Protect from Light.Indications:Multiple myeloma without remission (HCC) IVPB Started 05/26/2024 1:36 PM EDT 20 mg 756 mL/hr dextrose 5 % infusion 500 mL Once, intravenous, at 100 mL/hr, On Wed05/26/24 at 1400, For 1 dose, Infuse at 100 ml/hr for the duration of treatment. May increase or decrease rate as needed.Indications:Multiple myeloma without remission (HCC) New Bag 05/26/2024 1:31 PM EDT 500 mLs 100 mL/hr diphenhydrAMINE (BENADRYL) injection 25 mg 25 mg Once, intravenous, On Wed05/26/24 at 1400, For 1 doseIndications:Multiple myeloma without remission (HCC) Given 05/26/2024 1:32 PM EDT 25 mg famotidine (PF) injection 20 mg 20 mg Once, intravenous, On Wed05/26/24 at 1400, For 1 dose, Pharmacist to renally dose if CrCl is less than 50 mL/min or on CRRT.Indications:Multiple myeloma without remission (HCC) Given 05/26/2024 1:32 PM EDT 20 mg granisetron (KYTRIL) injection 1 mg 1 mg Once, intravenous, On Wed05/26/24 at 1400, For 1 doseIndications:Multiple myeloma without remission (HCC) Given 05/26/2024 1:32 PM EDT 1 mg documented in this encounter Care Teams Supervisor Endless Track Vehicle Relationship Specialty Start Date End Date Clifford Newell PA [address] [place] [address] [place] [address] PCP - General Physician Speed Belt Sander 10/14/23 documented as of this encounter
--- OUTSIDE RECORDS SUMMARY | 2024-08-03 16:58 | XMS_ITS | Encounter Summary ---
Author Organization [employer] Address [address] [place] [address] Care Team Providers Care Micro Computer Data Processor Name Role Phone Clifford Newell Primary Care Provider + [phone] Reason for Visit * Reason Comments Infusion * Episode Based Medication (Routine) - Closed Specialty Diagnoses / Procedures Referred By Ana Paula anne Referred To Contact Diagnoses Multiple myeloma without remission (HCC) Procedures CO GRANISETRON HCL INJECTION CO INJECTION, CARFILZOMIB, 1 MG Caleb Pacheco MD [address] [place] [address] Phone: tel: fax: [facility] [address] [place] [address] Phone: tel: fax:[phone] Referral ID Status Reason Start Date Expiration Date Visits Re quested Visits Authorized [id number] Closed 02/17/2024 02/17/2025 1 193 Encounter Details Date Type Department Care Team (Late st Contact Info) Description 05/12/2024 10:00 AM EDT Infusion [facility] [address] [place] [address] Caleb Pacheco MD [address] [place] [address] [place] [address] Multiple myeloma without remission (HCC) [...] on file documented as of this encounter Patient Instructions * Patient Instructions* Adelaida Leal RN - 05/12/2024 10:00 AM EDT You will have an appointment with Dr. Pardo on 05/26. We are having to get management to override it, so the clinic will call you when they are scheduled documented in this encounter Progress Notes * Adelaida Leal RN - 05/12/2024 10:00 AM EDT Pt tolerated infusion well. PIV removed intact, dressing applied. Discharged in stable condition, aware that clinic will be calling her with next appts documented in this encounter Plan of Treatment Not on file documented as of this encounter Visit Diagnoses Diagnosis Multiple myeloma without remission (HCC)- Primary documented in this encounter Administered Medications Inactive Administered Medications - up to 3 most recent administrations Medication Order MAR Action Action Date Dose Rate Site carfilzomib 120 mg in dextrose 5% (D5W) 170 mL chemo infusion 120 mg Once, intravenous, Administer over 30 Minutes, On Wed05/12/24 at 1230, For 1 dose, Chemo IV Set #: [id number] BSA = 2.2m2 (Max BSA for regimen) Reconstitute 60mg vial with 29mL SWFI Carfilzomib = 60mL Caution: Recommend wearing double gloves and protective gown during administration. Employees who are , trying to become , or should not handle this medication. Dispose of trace chemotherapy (including packaging) in the YELLOW waste bin.Indications:Multiple myeloma without remission (HCC) IVPB Started 05/12/2024 12:29 PM EDT 120 mg 340 mL/hr dexamethasone (DECADRON) 20 mg in sodium chloride 0.9% (NS) 50 mL IVPB 20 mg Once, intravenous, Administer over 5 Minutes, On Wed05/12/24 at 1200, For 1 dose, Protect from Light.Indications:Multiple myeloma without remission (HCC) IVPB Started 05/12/2024 11:54 AM EDT 20 mg 756 mL/hr dextrose 5% (D5W) infusion 500 mL Once, intravenous, at 100 mL/hr, On Wed05/12/24 at 1200, For 1 dose, Infuse at 100 ml/hr for the duration of treatment. May increase or decrease rate as needed.Indications:Multiple myeloma without remission (HCC) New Bag 05/12/2024 11:51 AM EDT 500 mLs 100 mL/hr famotidine (PF) injection 20 mg 20 mg Once, intravenous, On Wed05/12/24 at 1200, For 1 dose, Pharmacist to renally dose if CrCl is less than 50 mL/min or on CRRT.Indications:Multiple myeloma without remission (HCC) Given 05/12/2024 11:51 AM EDT 20 mg granisetron (KYTRIL) injection 1 mg 1 mg Once, intravenous, On Wed05/12/24 at 1200, For 1 doseIndications:Multiple myeloma without remission (HCC) Given 05/12/2024 11:51 AM EDT 1 mg documented in this encounter Care Teams Micro Computer Data Processor Relationship Specialty Start Date End Date Clifford Newell PA [address] [place] [address] [place] [address] PCP - General Physician Ratoprinter 10/14/23 documented as of this encounter
--- OUTSIDE RECORDS SUMMARY | 2024-08-03 16:58 | XMS_ITS | Encounter Summary ---
Author Organization [email or web address] Address [address] [place] [address] Care Team Providers Care Diagram Clerk Name Role Phone Clifford Newell Primary Care Provider + [phone] Encounter Details Date Type Department Care Team (Late st Contact Info) Description 05/02/2024 Orders Only [facility] [address] [place] [address] Caleb Pacheco MD [address] [facility] [address] [place] [address] Social History Tobacco Use Types [...] Date Kulwant rded Speak language other than Malay at home Not on file 10/05/2023 Want [...] on filedocumented in this encounter Care Teams Diagram Clerk Relationship Specialty Start Date End Date Clifford Newell PA [address] [place] [address] Dr [place], [place] [address] PCP - General Physician Electrical Service Technician 10/14/23 documented as of this encounter
--- OUTSIDE RECORDS SUMMARY | 2024-08-03 16:58 | XMS_ITS | Encounter Summary ---
Author Organization [employer] Address [address] [place] [address] Care Team Providers Care Bindery Supervisor Name Role Phone Clifford Newell Primary Care Provider + [phone] Encounter Details Date Type Department Care Team (Latest Contact Info) Description 04/11/2024 Travel Social History Tobacco Use Types Packs/Day [...] Date Kulwant rded Speak language other than Bengali at home Not on file 10/05/2023 Want [...] on filedocumented in this encounter Care Teams Bindery Supervisor Relationship Specialty Start Date End Date Clifford Newell PA [address] [place] [address] [place] [address] PCP - General Physician Tire Changer Aircraft 10/14/23 documented as of this encounter
--- OUTSIDE RECORDS SUMMARY | 2024-08-03 16:58 | XMS_ITS | Encounter Summary ---
Author Organization [employer] Address [address] [place] [address] Care Team Providers Care Fiberglass Pipe Covering Supervisor Name Role Phone Clifford Newell Primary Care Provider + [phone] Encounter Details Date Type Department Care Team (Late st Contact Info) Description 04/08/2024 Orders Only [facility] [address] [place] [address] Caleb Pacheco MD [address] [facility] [address] [place] [address] Multiple myeloma without remission (HCC) [...] Date Kulwant rded Speak language other than Togolese at home Not on file 10/05/2023 Want [...] as of this encounter Results * (ABNORMAL) CBC with Automated Diff (04/11/2024 10:53 AM EDT) WBC 2.4(L) 4.5 - 12.5 K/??L 04/11/2024 11:16 AM EDT [facility] RBC 3.05(L) 4.00 - 5.25 M/??L 04/11/2024 11:16 AM EDT [facility] Hemoglobin 9.9(L) 12.0 - 16.0 GM/DL 04/11/2024 11:16 AM EDT [facility] Hematocrit 32.5(L) 36.0 - 46.0 % 04/11/2024 11:16 AM EDT [facility] MCV 107(H) 80 - 100 fL 04/11/2024 11:16 AM EDT [facility] MCH 32.5 26.0 - 34.0 pg 04/11/2024 11:16 AM EDT [facility] MCHC 30.5(L) 31.0 - 37.0 GM/DL 04/11/2024 11:16 AM EDT [facility] RDW 14.5 12.0 - 16.8 % 04/11/2024 11:16 AM EDT [facility] Platelets 237 140 - 440 K/CU MM 04/11/2024 11:16 AM EDT [facility] MPV 9.7 7.4 - 10.4 fL 04/11/2024 11:16 AM EDT [facility] % Neutros 43(L) 45 - 80 % 04/11/2024 11:16 AM EDT [facility] % Lymphs 40 15 - 45 % 04/11/2024 11:16 AM EDT [facility] % Monos 9 0 - 10 % 04/11/2024 11:16 AM EDT [facility] % Eos 5 0 - 5 % 04/11/2024 11:16 AM EDT [facility] % Baso 3 0 - 3 % 04/11/2024 11:16 AM EDT [facility] # Neutros 1.04(L) 2.00 - 8.80 K/??L 04/11/2024 11:16 AM EDT [facility] # Lymphs 0.96 0.70 - 5.50 K/??L 04/11/2024 11:16 AM EDT [facility] # Monos 0.22 0.00 - 1.70 K/??L 04/11/2024 11:16 AM EDT [facility] # Eos 0.12 0.00 - 0.80 K/??L 04/11/2024 11:16 AM EDT [facility] # Baso 0.08 0.00 - 0.20 K/??L 04/11/2024 11:16 AM EDT [facility] Blood Venipuncture / Unknown 04/11/2024 10:53 AM EDT 04/11/2024 11:09 AM EDT Narrative [facility] - 04/11/2024 11:16 AM EDT When CBC w/ Auto Diff [...] ORDERABLES Final Res ult [facility] [address] [place] [address], [facility] [phone] documented in this encounter Visit Diagnoses Diagnosis Multiple myeloma without remission (HCC)- Primary documented in this encounter Care Teams Fiberglass Pipe Covering Supervisor Relationship Specialty Start Date End Date Clifford Newell PA [address] [place] [address] [place] [address] PCP - General Physician Vice President Integrated 10/14/23 documented as of this encounter
--- OUTSIDE RECORDS SUMMARY | 2024-08-03 16:58 | XMS_ITS | Encounter Summary ---
Author Organization [employer] Address [address] [place] [address] Care Team Providers Care Nursing Officer Name Role Phone Clifford Newell Primary Care Provider + [phone] Reason for Visit * Reason Comments Follow-up Multiple Myeloma Encounter Details Date Type Department Care Team (Late st Contact Info) Description 05/26/2024 12:15 PM EDT Office Visit [facility] [address] [place] [address] [address] [place] [address] Caleb Pacheco MD [address] [place] [address] Multiple myeloma without remission (HCC) [...] Date Kulwant rded Speak language other than Thai at home Not on file 10/05/2023 Want [...] Sign Reading Time Taken Comments Blood Pressure 129/66 05/26/2024 11:47 AM EDT Pulse 84 05/26/2024 11:47 AM EDT Temperature 36.7 ??C (98.1 ??F) 05/26/2024 11:47 AM E DT Respiratory Rate 18 05/26/2024 11:47 AM EDT Oxygen Saturation 96% 05/26/2024 11:47 AM EDT Inhaled Oxygen Concentration - - Weight 103.2 kg (227 lb 8 oz) 05/26/2024 11:47 A M EDT Height 170.2 cm (5' 7 ) 05/26/2024 11:47 AM EDT Body Mass Index 35.63 05/26/2024 11:47 AM EDT documented in this encounter Progress Notes * Caleb Pacheco MD - 05/26/2024 12:15 PM EDT Chief Complaint: History of Present Illness: Francy Bailey is a 63 y.o. female who presents today for follow up of multiple myeloma. She is currently on carfilzomib. She cannot tolerate an imid with that of low blood counts. She has had really no other additional problems except some back pain that she says is getting more severe. She has maintained her weight. No other new areas of bone pain or discomfort Past Medical History: Diagnosis Date Asthma Autologous [...] Treatment Summary Treatment goal Palliative Plan Name [facility] Multiple Myeloma - daratumumab (Darzalex) IV d1,8,15,22 fb D1,15 fb d1 + pomalidomide(Pomalyst) PO d1-21 every 28 days Status Inactive Start Date 11/03/2022 End Date 01/11/2024 Provider Caleb Pacheco MD Chemotherapy pomalidomide 4 mg Cap, 4 mg, Oral, Daily, 1 of 1 cycle, Start date: --, End date: -- [id number]-[id number] (DARZALEX FASPRO) 1,800 mg-30,000 unit/15 mL subcutaneous [...] Treatment Summary Treatment goal Palliative Plan Name [facility] Multiple Myeloma - carfilzomib (Kyprolis) 20/56 days 1,8,15 + pomalidomide (Pomalyst)1mg PO days 1-21 + Dexamethasone weekly every 28 days Status Active Start Date 02/29/2024 End Date 01/19/2025 (Planned) Provider Caleb Pacheco MD Chemotherapy carfilzomib [...] mg (05/02/2024), 120 mg (05/12/2024), 120 mg (05/26/2024) Allergies: Ampicillin, Codeine, Indomethacin, Morphine, and Penicillin [...] visit. Review of Systems: Review of Systems All other systems reviewed and are negative. Vitals: Vitals: 05/26/24 1147 BP: 129/66 Pulse: 84 Resp: 18 Temp: 98.1 ??F (36.7 ??C) SpO2: 96% Weight: 103.2 kg (227 lb 8 oz) Height: 1.702 m (5' 7 ) Physical [...] breath sounds. Comments: No dullness to percussion bilaterally in the lower lung britt. Abdominal: General: Abdomen is flat. Bowel sounds are normal. Palpations: Abdomen is soft. Comments: No hepatomegaly below the right costal margin Musculoskeletal: General: Normal range of motion. Cervical back: Normal range of motion and neck supple. Comments: Lower back discomfort Neurological: General: No focal deficit present. Mental Status: She is alert. Relevant Results: Office Visit on 05/26/2024 Component Date Value [...] 05/26/2024 17 5 - 37 U/L Final [facility] has become aware of sulfasalazine and sulfapyridine [...] 05/26/2024 12 12 - 78 U/L Final [facility] has become aware of sulfasalazine and sulfapyridine [...] 05/26/2024 0.01 0.00 - 0.20 K/??L Final Office Visit on 05/12/2024 Component Date Value Ref Range Status WBC 05/12/2024 3.2 (L) 4.5 - 12.5 K/??L Final RBC 05/12/2024 2.95 (L) 4.00 - 5.25 M/??L Final Hemoglobin 05/12/2024 9.7 (L) 12.0 - 16.0 GM/DL Final Hematocrit 05/12/2024 31.8 (L) 36.0 - 46.0 % Final MCV 05/12/2024 108 (H) 80 - 100 fL Final MCH 05/12/2024 32.9 26.0 - 34.0 pg Final MCHC 05/12/2024 30.5 (L) 31.0 - 37.0 GM/DL Final RDW 05/12/2024 14.8 12.0 - 16.8 % Final Platelets 05/12/2024 171 140 - 440 K/CU MM Final MPV 05/12/2024 10.4 7.4 - 10.4 fL Final % Neutros 05/12/2024 47 45 - 80 % Final % Lymphs 05/12/2024 34 15 - 45 % Final % Monos 05/12/2024 17 (H) 0 - 10 % Final % Eos 05/12/2024 2 0 - 5 % Final % Baso 05/12/2024 0 0 - 3 % Final # Neutros 05/12/2024 1.49 (L) 2.00 - 8.80 K/??L Final # Lymphs 05/12/2024 1.06 0.70 - 5.50 K/??L Final # Monos 05/12/2024 0.55 0.00 - 1.70 K/??L Final # Eos 05/12/2024 0.05 0.00 - 0.80 K/??L Final # Baso 05/12/2024 0.01 0.00 - 0.20 K/??L Final No results found. Cancer Staging No matching staging information was found for the patient. Plan: Her blood counts are acceptable. Her monoclonal protein has dropped at least 25% on treatment. I am going to continue the carfilzomib. She receives 120 mg over an hour. She also gets her Xgeva today. She is premedicated with Benadryl 25 dexamethasone 20 mg IV Pepcid 20 and Kytril 1 mg IV. Jadynwill continue on this treatment for 2 more weeks thoughts when I will see her back. I have answeredher questions. Will continue to monitor her immunoelectrophoresis. She did not wish to be seen by radiation medicine in spite of her back pain. I did not make other recommendations. I did place her on a fentanyl patch in addition the oxycodone to see if that would be of benefit Signed: Electronically signed by Caleb Pacheco MD 05/26/24 5:51 PM EDT MARILEE Muñoz documented in this encounter Plan of Treatment Not on file documented as of this encounter Procedures Procedure Name Priority Date/Time Associated Diagnosis Comments CBC W/ AUTO DIFF STAT 05/26/2024 11:4 3 AM EDT Multiple myeloma without remission (HCC) ONOCOLOGY CHEMISTRY PANEL Routine 05/26/2024 11:43 AM EDT Multiple myeloma without remission (HCC) HEPATIC FUNCTION PANEL Routine 05/26/2024 11:43 AM EDT Multiple myeloma without remission (HCC) documented in this encounter Results * (ABNORMAL) Protein Electrophoresis w Rflx to RALPH(SENDOUT) (06/13/2024 3:45 PM EDT) Total Protein, Serum 7.4 6.3 - 8.2 g/dL 06/17/2024 8:41 PM EDT [facility] Albumin 2.35(L) 3.75 - 5.01 g/dL 06/17/2024 8:41 PM EDT [facility] Alpha 1 Globulin 0.35 0.19 - 0.46 g/dL 06/17/2024 8:41 PM EDT [facility] Alpha 2 Globulin 0.67 0.48 - 1.05 g/dL 06/17/2024 8:41 PM EDT [facility] Beta Globulin 3.89(H) 0.48 - 1.10 g/dL 06/17/2024 8:41 PM EDT [facility] Gamma 0.15(L) 0.62 - 1.51 g/dL 06/17/2024 8:41 PM EDT [facility] Immunofixation Reflex RALPH Done 06/17/2024 8:41 PM EDT [facility] Monoclonal Protein 3.41(H) <=0.00 g/dL 06/17/2024 8:41 PM EDT [facility] SPEP/RALPH Interpretation See Note 06/17/2024 8:41 PM EDT [facility] Comment: Monoclonal spike in the beta region. The quantitation may include complement and/or transferrin components. Measurement of total Immunoglobulin (IgA, IgG, or IgM) can be used for the quantitation of the monoclonal spike instead. Hypogammaglobulinemia. RALPH gel pattern shows an IgA type lambda monoclonal protein with an additional faint band in lambda. EER Serum Protein Electrophoresis Reflex See Note 06/17/2024 8:41 PM EDT [facility] Comment: Authorized individuals can access the [facility] Enhanced Report using the following link: [email or web address] Performed By: [facility] [address] [place] [id number] Canal Superintendent: Parker Rangel MD, PhD CLIA Number: [id number] Blood ENTIRE RIGHT UPPER ARM / Unknown Venipuncture / Unknown 06/13/2024 3:45 PM EDT 06/13/2024 3:55 PM EDT us Caleb Pacheco MD LAB BLOOD ORDERABLES Final Res ult [facility] [address] [phone] * (ABNORMAL) Detmold-Lambda Quant FLC with Ratio(SENDOUT) (06/13/2024 3:45 PM EDT) Detmold Qnt Free Light Chains 1.38(L) 3.30 - 19.40 mg/L 06/15/2024 11:28 PM EDT [facility] Comment: INTERPRETIVE INFORMATION: Detmold Qnt Free Light Chains Undetected antigen excess is a rare event but cannot be excluded. Free light chain results should always be interpreted in conjunction with other clinical and laboratory findings. Lambda Qnt Free Light Chains 333.51(H) 5.71 - 26.30 mg/L 06/15/2024 11:28 PM EDT [facility] Comment: INTERPRETIVE INFORMATION: Lambda Qnt Free Light Chains Undetected antigen excess is a rare event but cannot be excluded. Free light chain results should always be interpreted in conjunction with other clinical and laboratory findings. Detmold/Lambda Free Light Chain Ratio <0.01(L) 0.26 - 1.65 06/15/2024 11:28 PM EDT [facility] Comment: Performed By: [facility] [address] [place] [address] Canal Superintendent: Parker Rangel MD, PhD CLIA Number: [id number] Blood ENTIRE RIGHT UPPER ARM / Unknown Venipuncture / Unknown 06/13/2024 3:45 PM EDT 06/13/2024 3:55 PM EDT Caleb Pacheco MD LAB BLOOD ORDERABLES Final Res ult [facility] [address] [phone] * (ABNORMAL) CBC with Automated Diff (05/26/2024 11:43 AM EDT) Pathologist [facility] WBC 4.7 4.5 - 12.5 K/??L 05/26/2024 [...] ult [facility] [address] [phone] * (ABNORMAL) Oncology Basic Metabolic Panel (05/26/2024 [...] Res ult [facility] [address] [place] [address], [facility] [phone] * (ABNORMAL) Hepatic function panel (05/26/2024 11:43 AM EDT) Protein, Total 7.9 6.4 - 8.2 gm/dL 05/26/2024 1:12 PM EDT [facility] Albumin 2.6(L) 3.4 - 5.0 g/dL 05/26/2024 1:12 PM EDT [facility] Total Bilirubin 0.5 0.2 - 1.3 mg/dL 05/26/2024 1:12 PM EDT [facility] Bilirubin, Direct 0.2 0.0 - 0.2 mg/dL 05/26/2024 1:12 PM EDT [facility] Alkaline Phosphatase 54 27 - 136 U/L 05/26/2024 1:12 PM EDT [facility] Globulin 5.3(H) 1.5 - 4.5 g/dL 05/26/2024 1:12 PM EDT [facility] A/G Ratio 0.5(L) 1.1 - 2.5 05/26/2024 1:12 PM EDT [facility] AST 17 5 - 37 U/L 05/26/2024 1:12 PM EDT [facility] Comment:[employer] [facility] has become aware of sulfasalazine and sulfapyridine [...] - 78 U/L 05/26/2024 1:12 PM EDT [facility] Comment:[employer] has become aware of sulfasalazine and sulfapyridine [...] MD LAB BLOOD ORDERABLES Final Res ult [facility] [address] [phone] documented in this encounter Visit Diagnoses Diagnosis Multiple myeloma without remission (HCC) documented in this encounter Care Teams Nursing Officer Relationship Specialty Start Date End Date Clifford Newell PA [address] [place] [address] [place] [address] PCP - General Physician Senior Sous [employer] 10/14/23 documented as of this encounter
--- OUTSIDE RECORDS SUMMARY | 2024-08-03 16:58 | XMS_ITS | Encounter Summary ---
Author Organization [employer] Address [address] [place] [address] Care Team Providers Care Soap Chipper Name Role Phone Clifford Newell Primary Care Provider + [phone] Reason for Visit * Reason Comments Multiple Myeloma without remission Follow-up 3 wk f/u Encounter Details Date Type Department Care Team (Late st Contact Info) Description 03/28/2024 9:15 AM EDT Office Visit [facility] [address] [place] [address] [address] [place] [address] Caleb Pacheco MD [address] [facility] [address] [place] [address] Multiple myeloma without remission (HCC) [...] Sign Reading Time Taken Comments Blood Pressure 136/69 03/28/2024 9:35 AM EDT Pulse 79 03/28/2024 9:35 AM EDT Temperature 36.5 ??C (97.7 ??F) 03/28/2024 9:35 AM ED T Respiratory Rate 16 03/28/2024 9:35 AM EDT Oxygen Saturation 98% 03/28/2024 9:35 AM EDT Inhaled Oxygen Concentration - - Weight 105.2 kg (232 lb) 03/28/2024 9:35 AM EDT Height 172.7 cm (5' 8 ) 03/28/2024 9:35 AM EDT Body Mass Index 35.28 03/28/2024 9:35 AM EDT documented in this encounter Progress Notes * Caleb Pacheco MD - 03/28/2024 9:15 AM EDT Chief Complaint: History of Present Illness: Francy Bailey is a 63 y.o. female who presents today for follow up of multiple myeloma. She is currently on carfilzomib and pomalidomide. Unfortunately on the third week of treatment and her white count was low and we held it and held the pomalidomide. She is going back on it and took thelast pill yesterday. She was here today for a week to cycle 2 of carfilzomib. She has some bone pain still in her right shoulder but appears to have less discomfort in her lower back and other sites.She is losing bit of weight but still is over her ideal body weight. She is without other complaintsuch as shortness of breath heart rhythm abnormalities excetra. Past Medical History: Diagnosis Date ??? Asthma ??? 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 Chronic low back pain ??? DVT (deep venous thrombosis) ([facility]) ??? History of shingles 12/2019 ??? Hypertension ??? Multiple myeloma ([facility]) ??? Peripheral neuropathy ??? Pulmonary embolism ([facility]) Past Surgical History: Procedure Laterality Date ??? BONE MARROW BIOPSY ??? TOTAL KNEE ARTHROPLASTY Cancer History: Oncology History Overview Note 1. Diagnosis of multiple myeloma. A. Bone marrow [...] O. Pomalidomide 1 mg with Kyprolis 02/29/2024- Multiple myeloma without remission (HCC) 06/16/2022 Initial Diagnosis Multiple myeloma without remission (HCC) 11/03/2022 - 01/11/2024 Chemotherapy Treatment Summary Treatment goal Palliative Plan Name [facility] Multiple Myeloma - daratumumab (Darzalex) IV d1,8,15,22 fb D1,15 fb d1 + pomalidomide(Pomalyst) PO d1-21 every 28 days Status Inactive Start Date 11/03/2022 End Date 01/11/2024 Provider Caleb Pacheco MD Chemotherapy pomalidomide 4 mg Cap, 4 mg, Oral, Daily, 1 of 1 cycle, Start date: --, End date: -- moahosdumyb-[id number]-qskk (DARZALEX FASPRO) 1,800 mg-30,000 unit/15 mL subcutaneous [...] Treatment Summary Treatment goal Palliative Plan Name [facility] Multiple Myeloma - carfilzomib (Kyprolis) 20/56 days 1,8,15 + pomalidomide (Pomalyst)1mg PO days 1-21 + Dexamethasone weekly every 28 days Status Active Start Date 02/29/2024 End Date 01/09/2025 (Planned) Provider Caleb aPcheco MD Chemotherapy carfilzomib 44 mg in dextrose 5% (D5W) 132 mL chemo infusion, 44 mg, intravenous, Once, 2 of 12 cycles Dose modification: 120 mg (original dose 123.2 mg, Cycle 1, Reason: Other (See Comments)) Administration: 44 mg (02/29/2024), 120 mg (03/07/2024), 120 mg (03/21/2024) Allergies: Ampicillin, Codeine, Indomethacin, Morphine, and Penicillin Medications: Current Outpatient Medications on File Prior to Visit Medication Sig Dispense Refill ??? acyclovir (ZOVIRAX) 5 % ointment Apply topically every 3 (three) hours. 15 g 2 ??? Advair HFA 115-21 mcg/actuation inhaler 2 puffs 2 (two) times daily. ??? ascorbic acid, vitamin C, (VITAMIN C) 250 MG tablet Take 2 tablets (500 mg total) by mouth. ??? benzonatate (TESSALON) 100 MG capsule Take 1 capsule (100 mg total) by mouth 3 (three) times daily as needed for Cough for up to 30 doses. 30 capsule 0 ??? BIOTIN ORAL Take 6,000 mcg by mouth. ??? busPIRone (BUSPAR) 15 MG tablet Take 1 tablet (15 mg total) by mouth 3 (three) times daily. ??? cetirizine (ZyrTEC) 10 MG tablet Take 1 tablet (10 mg total) by mouth. ??? clonazePAM (KlonoPIN) 0.5 MG tablet Take 1 tablet (0.5 mg total) by mouth as needed. ??? cyanocobalamin (VITAMIN B-12) 1000 MCG tablet TAKE 1 TABLET BY MOUTH EVERY DAY ON AN EMPTY STOMACH FOR LOW VITAMIN B-12 ??? cyclobenzaprine (FLEXERIL) 5 MG tablet Take 1 tablet (5 mg total) by mouth 2 (two) times daily as needed. ??? ergocalciferol (ERGOCALCIFEROL) 1,250 mcg (50,000 unit) capsule Take 1 capsule (50,000 Units total) by mouth once a week. ??? fluticasone propionate (FLONASE) 50 mcg/actuation nasal spray 2 sprays daily. ??? gabapentin (NEURONTIN) 300 MG capsule Take 1 capsule (300 mg total) by mouth 3 (three) times daily. ??? meclizine (ANTIVERT) 25 mg tablet Take 1 tablet (25 mg total) by mouth 4 (four) times daily as needed. 60 tablet 5 ??? metoprolol succinate (TOPROL-XL) 25 MG 24 hr tablet Take 1 tablet (25 mg total) by mouth daily. ??? OneTouch Verio test strips Strp 2 (two) times daily. ??? oxyCODONE (OXY-IR) 10 mg tablet Take 1 tablet (10 mg total) by mouth every 4 (four) hours as needed for up to 100 doses. Max Daily Amount: 60 mg 100 tablet 0 ??? PARoxetine (PAXIL) 30 MG tablet Take 1 tablet (30 mg total) by mouth daily. ??? Pomalyst 1 mg Cap TAKE 1 CAPSULE BY MOUTH ONCE DAILY. 21 capsule 0 ??? potassium chloride SA (K-DUR,KLOR-CON-M) 20 MEQ tablet Take 1 tablet (20 mEq total) by mouth daily. ??? ProAir HFA 90 mcg/actuation inhaler 2 puffs. ??? simvastatin (ZOCOR) 10 MG tablet Take 1 tablet (10 mg total) by mouth nightly. ??? Tab-A-Avery 400 mcg Tab Take 1 tablet by mouth daily. ??? UNKNOWN Take 1 tablet by mouth daily [facility] [facility] - for memory loss. ??? Xarelto 20 mg tablet SMARTSI Tablet(s) By Mouth Every Evening Current Facility-Administered Medications on File Prior to Visit Medication Dose Route Frequency Provider Last Rate Last Admin ??? carfilzomib 120 mg in dextrose 5% (D5W) 170 mL chemo infusion 120 mg intravenous Once Caleb Pacheco MD ??? [COMPLETED] denosumab (XGEVA) subcutaneous injection 120 mg 120 mg subcutaneous Once Frank Castanon, PharmD BCPS 120 mg at 03/28/24 1056 ??? [COMPLETED] dexamethasone (DECADRON) 20 mg in sodium chloride 0.9% (NS) 50 mL IVPB 20 mg intravenous Once Reilly Campos PharmD 756 mL/hr at 03/28/24 1056 20 mg at 03/28/24 1056 ??? [COMPLETED] dextrose 5% (D5W) infusion 500 mL intravenous Once Reilly Campos PharmD 100 mL/hr at 03/28/24 1054 500 mL at 03/28/24 1054 ??? [COMPLETED] diphenhydrAMINE (BENADRYL) injection 25 mg 25 mg intravenous Once Reilly Campos, PharmD 25 mg at 03/28/24 1055 ??? [COMPLETED] famotidine (PF) injection 20 mg 20 mg intravenous Once Reilly Campos, PharmD 20 mg at 03/28/24 1056 ??? [COMPLETED] granisetron (KYTRIL) injection 1 mg 1 mg intravenous Once Reilly Campos PharmD 1mg at 03/28/24 105 ??? sodium chloride 0.9% (NS) flush 10 mL 10 mL intravenous PRN Caleb Pacheco MD 10 mL at 03/28/24 1053 Review of Systems: Review of Systems All other systems reviewed and are negative. Vitals: Vitals: 03/28/24 0935 BP: 136/69 Pulse: 79 Resp: 16 Temp: 97.7 ??F (36.5 ??C) SpO2: 98% Weight: 105.2 kg (232 lb) Height: 1.727 m (5' 8 ) Physical Exam: Physical Exam Vitals reviewed. Constitutional: Appearance: Normal appearance. HENT: Head: Normocephalic and atraumatic. Mouth/Throat: Mouth: Mucous membranes are moist. Eyes: Extraocular Movements: Extraocular movements intact. Conjunctiva/sclera: [...] of motion and neck supple. Comments: Some pain in the right shoulder but minimal discomfort in the lower back Neurological: General: No focal deficit present. Mental Status: She is alert. Relevant Results: Office Visit on 03/28/2024 Component Date Value Ref Range Status ??? WBC 03/28/2024 2.8 (L) 4.5 - 12.5 K/??L Final ??? RBC 03/28/2024 3.43 (L) 4.00 - 5.25 M/??L Final ??? Hemoglobin 03/28/2024 11.0 (L) 12.0 - 16.0 GM/DL Final ??? Hematocrit 03/28/2024 35.6 (L) 36.0 - 46.0 % Final ??? MCV 03/28/2024 104 (H) 80 - 100 fL Final ??? MCH 03/28/2024 32.1 26.0 - 34.0 pg Final ??? MCHC 03/28/2024 30.9 (L) 31.0 - 37.0 GM/DL Final ??? RDW 03/28/2024 12.7 12.0 - 16.8 % Final ??? Platelets 03/28/2024 176 140 - 440 K/CU MM Final ??? MPV 03/28/2024 10.7 (H) 7.4 - 10.4 fL Final ??? % Neutros 03/28/2024 43 (L) 45 - 80 % Final ??? % Lymphs 03/28/2024 38 15 - 45 % Final ??? % Monos 03/28/2024 16 (H) 0 - 10 % Final ??? % Eos 03/28/2024 3 0 - 5 % Final ??? % Baso 03/28/2024 0 0 - 3 % Final ??? # Neutros 03/28/2024 1.20 (L) 2.00 - 8.80 K/??L Final ??? # Lymphs 03/28/2024 1.05 0.70 - 5.50 K/??L Final ??? # Monos 03/28/2024 0.44 0.00 - 1.70 K/??L Final ??? # Eos 03/28/2024 0.07 0.00 - 0.80 K/??L Final ??? # Baso 03/28/2024 0.01 0.00 - 0.20 K/??L Final Infusion on 03/21/2024 Component Date Value Ref Range Status ??? Protein, Total 03/21/2024 8.1 6.4 - 8.2 gm/dL Final ??? Albumin 03/21/2024 2.3 (L) 3.4 - 5.0 g/dL Final ??? Total Bilirubin 03/21/2024 0.3 0.2 - 1.3 mg/dL Final ??? Bilirubin, Direct 03/21/2024 0.1 0.0 - 0.2 mg/dL Final ??? Alkaline Phosphatase 03/21/2024 58 27 - 136 U/L Final ??? Globulin 03/21/2024 5.8 (H) 1.5 - 4.5 g/dL Final ??? A/G Ratio 03/21/2024 0.4 (L) 1.1 - 2.5 Final ??? AST 03/21/2024 13 5 - 37 U/L Final [employer] has become aware of sulfasalazine and sulfapyridine [...] occur prior to administration of the drug. ??? ALT 03/21/2024 15 12 - 78 U/L Final [employer] has become aware of sulfasalazine and sulfapyridine [...] occur prior to administration of the drug. ??? Sodium 03/21/2024 141 136 - 146 meq/L Final ??? Potassium 03/21/2024 3.6 3.5 - 5.1 meq/L Final ??? Chloride 03/21/2024 108 98 - 108 meq/L Final ??? CO2 03/21/2024 28 22 - 29 meq/L Final ??? Anion Gap 03/21/2024 9 9 - 20 Final ??? BUN 03/21/2024 8 7 - 18 mg/dL Final ??? Creatinine 03/21/2024 0.90 0.60 - 1.10 mg/dL Final ??? BUN/Creatinine 03/21/2024 9 8 - 20 Final ??? Glucose 03/21/2024 81 70 - 105 mg/dL Final ??? Calcium Ionized (mg/dL) 03/21/2024 4.65 4.36 - 5.20 mg/dL Final ??? WBC 03/21/2024 2.8 (L) 4.5 - 12.5 K/??L Final ??? RBC 03/21/2024 2.99 (L) 4.00 - 5.25 M/??L Final ??? Hemoglobin 03/21/2024 9.8 (L) 12.0 - 16.0 GM/DL Final ??? Hematocrit 03/21/2024 31.6 (L) 36.0 - 46.0 % Final ??? MCV 03/21/2024 106 (H) 80 - 100 fL Final ??? MCH 03/21/2024 32.8 26.0 - 34.0 pg Final ??? MCHC 03/21/2024 31.0 31.0 - 37.0 GM/DL Final ??? RDW 03/21/2024 11.9 (L) 12.0 - 16.8 % Final ??? Platelets 03/21/2024 241 140 - 440 K/CU MM Final ??? MPV 03/21/2024 10.9 (H) 7.4 - 10.4 fL Final ??? % Neutros 03/21/2024 50 45 - 80 % Final ??? % Lymphs 03/21/2024 32 15 - 45 % Final ??? % Monos 03/21/2024 13 (H) 0 - 10 % Final ??? % Eos 03/21/2024 5 0 - 5 % Final ??? % Baso 03/21/2024 0 0 - 3 % Final ??? # Neutros 03/21/2024 1.42 (L) 2.00 - 8.80 K/??L Final ??? # Lymphs 03/21/2024 0.91 0.70 - 5.50 K/??L Final ??? # Monos 03/21/2024 0.36 0.00 - 1.70 K/??L Final ??? # Eos 03/21/2024 0.14 0.00 - 0.80 K/??L Final ??? # Baso 03/21/2024 0.01 0.00 - 0.20 K/??L Final Infusion on 03/14/2024 Component Date Value Ref Range Status ??? WBC 03/14/2024 2.2 (L) 4.5 - 12.5 K/??L Final ??? RBC 03/14/2024 2.94 (L) 4.00 - 5.25 M/??L Final ??? Hemoglobin 03/14/2024 9.6 (L) 12.0 - 16.0 GM/DL Final ??? Hematocrit 03/14/2024 31.1 (L) 36.0 - 46.0 % Final ??? MCV 03/14/2024 106 (H) 80 - 100 fL Final ??? MCH 03/14/2024 32.7 26.0 - 34.0 pg Final ??? MCHC 03/14/2024 30.9 (L) 31.0 - 37.0 GM/DL Final ??? RDW 03/14/2024 12.2 12.0 - 16.8 % Final ??? Platelets 03/14/2024 115 (L) 140 - 440 K/CU MM Final ??? MPV 03/14/2024 11.2 (H) 7.4 - 10.4 fL Final ??? % Neutros 03/14/2024 44 (L) 45 - 80 % Final ??? % Lymphs 03/14/2024 40 15 - 45 % Final ??? % Monos 03/14/2024 12 (H) 0 - 10 % Final ??? % Eos 03/14/2024 3 0 - 5 % Final ??? % Baso 03/14/2024 1 0 - 3 % Final ??? # Neutros 03/14/2024 0.98 (L) 2.00 - 8.80 K/??L Final ??? # Lymphs 03/14/2024 0.88 0.70 - 5.50 K/??L Final ??? # Monos 03/14/2024 0.27 0.00 - 1.70 K/??L Final ??? # Eos 03/14/2024 0.07 0.00 - 0.80 K/??L Final ??? # Baso 03/14/2024 0.01 0.00 - 0.20 K/??L Final No results found. Cancer Staging No matching staging information was found for the patient. Plan: Her neutrophil count today is 1200. Her hemoglobin and platelet counts stable. She will receive carfilzomib today a dose of 120 mg. She is premedicated with Kytril 1 dexamethasone 20 Benadryl 25 and Pepcid 20 IV. Because of logistical issues she will not be able to return next week I will seeher in 2 weeks. She is not to start back on her pomalidomide again until I see her again. I have answered her questions. Sometime the next few weeks perhaps in early April I will repeat her free light chain ratio and immunoelectrophoresis did see if were not making some headway in regards to her underlying cancer. Signed: Electronically signed by Caleb Pacheco MD 03/28/24 11:38 AM EDT MARILEE Muñoz documented in this encounter Plan of Treatment Not on file documented as of this encounter Procedures Procedure Name Priority Date/Time Associated Diagnosis Comments CBC W/ AUTO DIFF STAT 03/28/2024 9:31 AM EDT Multiple myeloma without remission (HCC) documented in this encounter Results * (ABNORMAL) CBC with Automated Diff (03/28/2024 9:31 AM EDT) WBC 2.8(L) 4.5 - 12.5 K/??L 03/28/2024 9:40 AM EDT [facility] RBC 3.43(L) 4.00 - 5.25 M/??L 03/28/2024 9:40 AM EDT [facility] Hemoglobin 11.0(L) 12.0 - 16.0 GM/DL 03/28/2024 9:40 AM EDT [facility] Hematocrit 35.6(L) 36.0 - 46.0 % 03/28/2024 9:40 AM EDT [facility] MCV 104(H) 80 - 100 fL 03/28/2024 9:40 AM EDT [facility] MCH 32.1 26.0 - 34.0 pg 03/28/2024 9:40 AM EDT [facility] MCHC 30.9(L) 31.0 - 37.0 GM/DL 03/28/2024 9:40 AM EDT [facility] RDW 12.7 12.0 - 16.8 % 03/28/2024 9:40 AM EDT [facility] Platelets 176 140 - 440 K/CU MM 03/28/2024 9:40 AM EDT [facility] MPV 10.7(H) 7.4 - 10.4 fL 03/28/2024 9:40 AM EDT [facility] % Neutros 43(L) 45 - 80 % 03/28/2024 9:40 AM EDT [facility] % Lymphs 38 15 - 45 % 03/28/2024 9:40 AM EDT [facility] % Monos 16(H) 0 - 10 % 03/28/2024 9:40 AM EDT [facility] % Eos 3 0 - 5 % 03/28/2024 9:40 AM EDT [facility] % Baso 0 0 - 3 % 03/28/2024 9:40 AM EDT [facility] # Neutros 1.20(L) 2.00 - 8.80 K/??L 03/28/2024 9:40 AM EDT [facility] # Lymphs 1.05 0.70 - 5.50 K/??L 03/28/2024 9:40 AM EDT [facility] # Monos 0.44 0.00 - 1.70 K/??L 03/28/2024 9:40 AM EDT [facility] # Eos 0.07 0.00 - 0.80 K/??L 03/28/2024 9:40 AM EDT [facility] # Baso 0.01 0.00 - 0.20 K/??L 03/28/2024 9:40 AM EDT [facility] Blood Venipuncture / Unknown 03/28/2024 9:31 AM EDT 03/28/2024 9:35 AM EDT Narrative [facility] - 03/28/2024 9:40 AM EDT When CBC w/ Auto Diff [...] ORDERABLES Final Res ult Performing Organization Address City/State/[facility] Co de Phone Number [facility] [address] [phone] documented in this encounter Visit Diagnoses Diagnosis Multiple myeloma without remission (HCC) documented in this encounter Care Teams Soap Chipper Relationship Specialty Start Date End Date Clifford Newell PA [address] [place] [id number] PCP - General Physician Direct Marketing Executive 10/14/23 documented as of this encounter
--- OUTSIDE RECORDS SUMMARY | 2024-08-03 16:58 | XMS_ITS | Encounter Summary ---
Author Organization [employer] Address [address] [place] [address] Care Team Providers Care General Engineering Teacher Name Role Phone Clifford Newell Primary Care Provider + [phone] Reason for Visit * Reason Comments Chemotherapy * Episode Based Medication (Routine) - Closed Specialty Diagnoses / Procedures Referred By Ana Paula anne Referred To Contact Diagnoses Multiple myeloma without remission (HCC) Procedures OR GRANISETRON HCL INJECTION OR INJECTION, CARFILZOMIB, 1 MG Caleb Pacheco MD [address] [place] [address] Phone: tel: fax: [facility] [address] [place] [address] Phone: tel: fax:[phone] Referral ID Status Reason Start Date Expiration Date Visits Re quested Visits Authorized [id number] Closed 02/17/2024 02/17/2025 1 193 Encounter Details Date Type Department Care Team (Late st Contact Info) Description 04/11/2024 12:15 PM EDT Infusion [facility] [address] [place] [address] Caleb Pacheco MD [address] [place] [address] Multiple myeloma without remission (HCC) [...] as of this encounter Progress Notes * Kandi Ford RN - 04/11/2024 12:15 PM EDT Tolerated infusion well. Discharged in stable condition documented in this encounter Plan of Treatment [...] Once, intravenous, Administer over 30 Minutes, On Wed04/11/24 at 1330, For 1 dose, Chemo IV Set #: [id number] BSA = 2.2m2 (Max BSA for regimen) Reconstitute 60mg vial with 29mL SWFI Carfilzomib = 60mL Caution: Recommend wearing double gloves and protective gown during administration. Employees who are , trying to become , or should not handle this medication. Dispose of trace chemotherapy (including packaging) in the YELLOW waste bin.Indications:Multiple myeloma without remission (HCC) IVPB Started 04/11/2024 1:25 PM EDT 120 mg 340 mL/hr dexamethasone (DECADRON) 20 mg in sodium chloride 0.9% (NS) 50 mL IVPB 20 mg Once, intravenous, Administer over 5 Minutes, On Wed04/11/24 at 1300, For 1 dose, Protect from Light.Indications:Multiple myeloma without remission (HCC) IVPB Started 04/11/2024 12:51 PM EDT 20 mg 756 mL/hr dextrose 5% (D5W) infusion 500 mL Once, intravenous, at 100 mL/hr, On Wed04/11/24 at 1300, For 1 dose, Infuse at 100 ml/hr for the duration of treatment. May increase or decrease rate as needed.Indications:Multiple myeloma without remission (HCC) New Bag 04/11/2024 12:46 PM EDT 500 mLs 100 mL/hr diphenhydrAMINE (BENADRYL) injection 25 mg 25 mg Once, intravenous, On Wed04/11/24 at 1300, For 1 doseIndications:Multiple myeloma without remission (HCC) Given 04/11/2024 12:50 PM EDT 25 mg famotidine (PF) injection 20 mg 20 mg Once, intravenous, On Wed04/11/24 at 1300, For 1 dose, Pharmacist to renally dose if CrCl is less than 50 mL/min or on CRRT.Indications:Multiple myeloma without remission (HCC) Given 04/11/2024 12:49 PM EDT 20 mg granisetron (KYTRIL) injection 1 mg 1 mg Once, intravenous, On Wed04/11/24 at 1300, For 1 doseIndications:Multiple myeloma without remission (HCC) Given 04/11/2024 12:48 PM EDT 1 mg sodium chloride 0.9% (NS) flush 10 mL 10 mL As needed, intravenous, line care, Starting on Wed04/11/24 at 1258, Per [facility] Policy.Indications:Multiple myeloma without remission (HCC) Given 04/11/2024 12:45 PM EDT 10 mLs documented in this encounter Care Teams General Engineering Teacher Relationship Specialty Start Date End Date Clifford Newell PA [address] [place] [address] [place] [address] PCP - General Physician Foam Caster 10/14/23 documented as of this encounter
--- OUTSIDE RECORDS SUMMARY | 2024-08-03 16:58 | XMS_ITS | Encounter Summary ---
Author Organization [employer] Address [address] [place] [address] Care Team Providers Care [employer] Name Role Phone Clifford Newell Primary Care Provider + [phone] Reason for Visit * Reason Comments Medication Refill Encounter Details Date Type Department Care Team (Late st Contact Info) Description 04/14/2024 Refill [facility] [address] [facility] [address] [place] [address] Caleb Pacheco MD [address] [facility] [address] [place] [address] Social History Tobacco Use Types [...] Date Kulwant rded Speak language other than Filipino at home Not on file 10/05/2023 Want [...] encounter Miscellaneous Notes * Telephone Encounter - Wolfgang Godinez RN - 04/14/2024 4:36 PM EDT Sending to you Madhuri, wasn't sure if Dr. Pacheco wanted to send script via fax# or electronically. documented in this encounter Plan of Treatment Not on file documented as of this encounter Visit Diagnoses Not on filedocumented in this encounter Care Teams [employer] Relationship Specialty Start Date End Date Clifford Newell PA [address] [place] [address] JER[place] Ling [phone] PCP - General Physician Nuclear Powerplant Supervisor 10/14/23 documented as of this encounter
--- OUTSIDE RECORDS SUMMARY | 2024-08-03 16:58 | XMS_ITS | Encounter Summary ---
Author Organization [employer] Address [address] [place] [address] Care Team Providers Care Bulwark Carpenter Name Role Phone Clifford Newell Primary Care Provider + [phone] Reason for Visit * Reason Onset Date Comments reschedule appointment 05/08/2024 Encounter Details Date Type Department Care Team (Late st Contact Info) Description 05/08/2024 Telephone [facility] [address] [facility] [address] [place] [address] Caleb Pacheco MD [address] [facility] [address] [place] [address] reschedule appointment Social History Tobacco Use Types Packs/Day Years [...] Date Kulwant rded Speak language other than Korean at home Not on file 10/05/2023 [...] Telephone Encounter - Nicki Thurston RN - 05/08/2024 2:35 PM EDT Pt called back to Rn line requesting appt be moved to Wednesday morning as she does not have a ride for today or tomorrow. Rn returned call to pt and moved appt to 05/12/24 at 9:[address] Pacheco and infusion to follow. Pt agreed to plan. * Telephone Encounter - Nicki Thurston RN - 05/08/2024 9:45 AM EDT Pt called into RN line requesting to reschedule appt from today. Rn cancelled appt today with SP and infusion. RN returned call to pt to reschedule but no answer, LM to have her return call. documented in this encounter Plan of Treatment Not on file documented as of this encounter Visit Diagnoses Not on filedocumented in this encounter Care Teams Bulwark Carpenter Relationship Specialty Start Date End Date Clifford Newell PA [address] [place] [address] [place] [address] PCP - General Physician Director Global Market Research 10/14/23 documented as of this encounter
--- OUTSIDE RECORDS SUMMARY | 2024-08-03 16:58 | XMS_ITS | Encounter Summary ---
Author Organization [employer] Address [address] [place] [address] Care Team Providers Care Lpn Rn Name Role Phone Clifford Newell Primary Care Provider + [phone] Reason for Visit * Reason Comments Multiple myeloma without remission (HCC) Follow-up 2 wk f/u Carfilzomib C3D1 Encounter Details Date Type Department Care Team (Late st Contact Info) Description 04/24/2024 11:30 AM EDT Office Visit [facility] [address] [facility] [address] [place] [address] Caleb Pacheco MD [address] [facility] [address] [place] [address] Multiple myeloma without remission (HCC) [...] Date Kulwant rded Speak language other than Mongolian at home Not on file 10/05/2023 Want [...] Sign Reading Time Taken Comments Blood Pressure 122/74 04/24/2024 11:52 AM EDT Pulse 75 04/24/2024 11:52 AM EDT Temperature 36.7 ??C (98.1 ??F) 04/24/2024 1 1:52 AM EDT Respiratory Rate 16 04/24/2024 11:5 2 AM EDT Oxygen Saturation 97% 04/24/2024 11: 52 AM EDT Inhaled Oxygen Concentration - - Weight 105.1 kg (231 lb 9.6 oz) 024 11:52 AM EDT Height 172.7 cm (5' 7.99 ) 04/24/2024 1 1:52 AM EDT Body Mass Index 35.22 04/24/2024 11:52 AM EDT documented in this encounter Progress Notes * Caleb Pacheco MD - 04/24/2024 11:30 AM EDT Chief Complaint: History of Present Illness: Francy Bailey is a 63 y.o. female who presents today for follow up of multiple myeloma. She is on Kyprolis. I attempted to treat her with pomalidomide but she developed significant cytopenias. She has had this issue before. She denies any bone pain at all. She has had a little bit of weight loss over time. She denies other new or additional concerns. Past Medical History: Diagnosis Date ??? Asthma ??? Autologous bone marrow transplantation status (HCC) ??? Chronic low back pain ??? DVT (deep venous thrombosis) (HCC) ??? History of shingles 12/2019 ??? Hypertension ??? Multiple myeloma (HCC) ??? Peripheral neuropathy ??? Pulmonary embolism (HCC) Past Surgical History: Procedure Laterality Date ??? [...] Treatment Summary Treatment goal Palliative Plan Name [facility] Multiple Myeloma - daratumumab (Darzalex) IV d1,8,15,22 fb D1,15 fb d1 + pomalidomide(Pomalyst) PO d1-21 every 28 days Status Inactive Start Date 11/03/2022 End Date 01/11/2024 Provider Caleb Pacheco MD Chemotherapy pomalidomide 4 mg Cap, 4 mg, Oral, Daily, 1 of 1 cycle, Start date: --, End date: -- bgtytltmint-pvplbjylhgpso-gnnt (DARZALEX FASPRO) 1,800 mg-30,000 unit/15 mL subcutaneous [...] Treatment Summary Treatment goal Palliative Plan Name [facility] Multiple Myeloma - carfilzomib (Kyprolis) 20/56 days 1,8,15 + pomalidomide (Pomalyst)1mg PO days 1-21 + Dexamethasone weekly every 28 days Status Active Start Date 02/29/2024 End Date 01/15/2025 (Planned) Provider Caleb Pacheco MD Chemotherapy carfilzomib 44 mg in dextrose 5% (D5W) 132 mL chemo infusion, 44 mg, intravenous, Once, 3 of 12 cycles Dose modification: 120 mg (original dose 123.2 mg, Cycle 1, Reason: Other (See Comments)) Administration: 44 mg (02/29/2024), 120 mg (03/07/2024), 120 mg (03/21/2024), 120 mg (03/28/2024), 120 mg(04/11/2024), 120 mg (04/24/2024) Allergies: Ampicillin, Codeine, Indomethacin, Morphine, and Penicillin [...] (10 mg total) by mouth nightly. ??? sulfamethoxazole-trimethoprim (BACTRIM DS) 800-160 mg per tablet Take 1 tablet (160 mg of trimethoprim total) by mouth 2 (two) times daily To begin on 04/13/2024. 20 tablet 0 ??? Tab-A-Avery 400 mcg Tab Take 1 tablet by mouth daily. ??? UNKNOWN Take 1 tablet by mouth daily [facility] [place] - for memory loss. ??? Xarelto 20 mg tablet SMARTSI Tablet(s) By Mouth Every Evening No current facility-administered medications on file prior to visit. Review of Systems: Review of Systems All other systems reviewed and are negative. Vitals: Vitals: 08/05/24 1152 BP: 122/74 Pulse: 75 Resp: 16 Temp: 98.1 ??F (36.7 ??C) SpO2: 97% Weight: 105.1 kg (231 lb 9.6 oz) Height: 1.727 m (5' 7.99 ) Physical Exam: Physical Exam Vitals reviewed. Constitutional: Appearance: Normal appearance. HENT: Head: Normocephalic and atraumatic. Mouth/Throat: Mouth: Mucous membranes are moist. Pharynx: Oropharynx is clear. Eyes: Extraocular Movements: Extraocular movements intact. Conjunctiva/sclera: Conjunctivae normal. Pupils: Pupils are equal, round, and reactive to light. Neck: Comments: No cervical supraclavicular or axillary adenopathy Cardiovascular: Rate and Rhythm: Normal rate and regular rhythm. Pulses: Normal pulses. Heart sounds: Normal heart sounds. Pulmonary: Effort: Pulmonary effort is normal. Breath sounds: Normal breath sounds. Comments: No dullness to percussion in her lung bases bilaterally Abdominal: General: Abdomen is flat. Bowel sounds are normal. Palpations: Abdomen is soft. Comments: No splenomegaly below the left costal margin Musculoskeletal: General: Normal range of motion. Cervical back: Normal range of motion and neck supple. Neurological: General: No focal deficit present. Mental Status: She is alert. Relevant Results: Infusion on 04/24/2024 Component Date Value Ref Range Status ??? Potassium 04/24/2024 3.7 3.5 - 5.1 meq/L Final Office Visit on 04/24/2024 Component Date Value Ref Range Status ??? Protein, Total 04/24/2024 7.9 6.4 - 8.2 gm/dL Final ??? Albumin 04/24/2024 3.0 (L) 3.4 - 5.0 g/dL Final ??? Total Bilirubin 04/24/2024 0.4 0.2 - 1.3 mg/dL Final ? ? Bilirubin, Direct 04/24/2024 <0.1 0.0 - 0.2 mg/dL Final ??? Alkaline Phosphatase 04/24/2024 64 27 - 136 U/L Final ??? Globulin 04/24/2024 4.9 (H) 1.5 - 4.5 g/dL Final ??? A/G Ratio 04/24/2024 0.6 (L) 1.1 - 2.5 Final ??? AST 04/24/2024 21 5 - 37 U/L Final [facility] has become aware of sulfasalazine and sulfapyridine [...] to administration of the drug. ??? ALT 04/24/2024 14 12 - 78 U/L Final [facility] has become aware of sulfasalazine and sulfapyridine [...] to administration of the drug. ??? Sodium 04/24/2024 140 136 - 146 meq/L Final ??? Potassium 04/24/2024 5.7 (H) 3.5 - 5.1 meq/L Final ??? Chloride 04/24/2024 107 98 - 108 meq/L Final ??? CO2 04/24/2024 22 22 - 29 meq/L Final ??? Anion Gap 04/24/2024 17 9 - 20 Final ??? BUN 04/24/2024 13 7 - 18 mg/dL Final ??? Creatinine 04/24/2024 1.10 0.60 - 1.10 mg/dL Final ??? BUN/Creatinine 04/24/2024 12 8 - 20 Final ??? Glucose 04/24/2024 81 70 - 105 mg/dL Final ??? Calcium Ionized (mg/dL) 04/24/2024 4.80 4.36 - 5.20 mg/dL Final ??? WBC 04/24/2024 6.3 4.5 - 12.5 K/??L Final ??? RBC 04/24/2024 3.27 (L) 4.00 - 5.25 M/??L Final ??? Hemoglobin 04/24/2024 10.6 (L) 12.0 - 16.0 GM/DL Final ??? Hematocrit 04/24/2024 34.1 (L) 36.0 - 46.0 % Final ??? MCV 04/24/2024 104 (H) 80 - 100 fL Final ??? MCH 04/24/2024 32.4 26.0 - 34.0 pg Final ??? MCHC 04/24/2024 31.1 31.0 - 37.0 GM/DL Final ??? RDW 04/24/2024 14.7 12.0 - 16.8 % Final ??? Platelets 04/24/2024 256 140 - 440 K/CU MM Final ??? MPV 04/24/2024 10.6 (H) 7.4 - 10.4 fL Final ??? % Neutros 04/24/2024 61 45 - 80 % Final ??? % Lymphs 04/24/2024 27 15 - 45 % Final ??? % Monos 04/24/2024 10 0 - 10 % Final ??? % Eos 04/24/2024 3 0 - 5 % Final ??? % Baso 04/24/2024 1 0 - 3 % Final ??? # Neutros 04/24/2024 3.80 2.00 - 8.80 K/??L Final ??? # Lymphs 04/24/2024 1.68 0.70 - 5.50 K/??L Final ??? # Monos 04/24/2024 0.60 0.00 - 1.70 K/??L Final ??? # Eos 04/24/2024 0.16 0.00 - 0.80 K/??L Final ??? # Baso 04/24/2024 0.03 0.00 - 0.20 K/??L Final Office Visit on 04/11/2024 Component Date Value Ref Range Status ??? WBC 04/11/2024 2.4 (L) 4.5 - 12.5 K/??L Final ??? RBC 04/11/2024 3.05 (L) 4.00 - 5.25 M/??L Final ??? Hemoglobin 04/11/2024 9.9 (L) 12.0 - 16.0 GM/DL Final ??? Hematocrit 04/11/2024 32.5 (L) 36.0 - 46.0 % Final ??? MCV 04/11/2024 107 (H) 80 - 100 fL Final ??? MCH 04/11/2024 32.5 26.0 - 34.0 pg Final ??? MCHC 04/11/2024 30.5 (L) 31.0 - 37.0 GM/DL Final ??? RDW 04/11/2024 14.5 12.0 - 16.8 % Final ??? Platelets 04/11/2024 237 140 - 440 K/CU MM Final ??? MPV 04/11/2024 9.7 7.4 - 10.4 fL Final ??? % Neutros 04/11/2024 43 (L) 45 - 80 % Final ??? % Lymphs 04/11/2024 40 15 - 45 % Final ??? % Monos 04/11/2024 9 0 - 10 % Final ??? % Eos 04/11/2024 5 0 - 5 % Final ??? % Baso 04/11/2024 3 0 - 3 % Final ??? # Neutros 04/11/2024 1.04 (L) 2.00 - 8.80 K/??L Final ??? # Lymphs 04/11/2024 0.96 0.70 - 5.50 K/??L Final ??? # Monos 04/11/2024 0.22 0.00 - 1.70 K/??L Final ??? # Eos 04/11/2024 0.12 0.00 - 0.80 K/??L Final ??? # Baso 04/11/2024 0.08 0.00 - 0.20 K/??L Final No results found. Cancer Staging No matching staging information was found for the patient. Plan: She will receive carfilzomib at a dose of 120 mg today premedicated with dexamethasone 20 Kytril 1 Benadryl 25 and Pepcid 20 IV. She return next week for the same. I will see her in 2 weeks which will conclude her third cycle of treatment. She is going to have a result from free light chain ratio in a.m. electrophoresis within the next few days. Hopefully will see some improvement. I am encouraged since her bone pain has resolved. Signed: Electronically signed by Caleb Pacheco MD 04/24/24 5:36 PM EDT MARILEE Muñoz documented in this encounter Plan of Treatment Not on file documented as of this encounter Procedures Procedure Name Priority Date/Time Associated Diagnosis Comments IMMUNOFIX ELECTROPHORESIS BILL(SENDOUT) Routine 04/24/2024 11:54 AM EDT Multiple myeloma without remission (HCC) CBC W/ AUTO DIFF STAT 04/24/2024 11:5 4 AM EDT Multiple myeloma without remission (HCC) ONOCOLOGY CHEMISTRY PANEL Routine 04/24/2024 11:54 AM EDT Multiple myeloma without remission (HCC) PROTEIN ELECTROPHORESIS W RFLX TO RALPH(SENDOUT) Routine 04/24/2024 11:54 AM EDT Multiple myeloma without remission (HCC) KAPPA-LAMBDA QUANT FLC WITH RATIO(SENDOUT) Routine 04/24/2024 11:54 AM EDT Multiple myeloma without remission (HCC) IMMUNOGLOBULIN M(SENDOUT) Routine 04/24/2024 11:54 AM EDT Multiple myeloma without remission (HCC) IMMUNOGLOBULIN G(SENDOUT) Routine 04/24/2024 11:54 AM EDT Multiple myeloma without remission (HCC) IMMUNOGLOBULIN A(SENDOUT) Routine 04/24/2024 11:54 AM EDT Multiple myeloma without remission (HCC) HEPATIC FUNCTION PANEL Routine 11:54 AM EDT Multiple myeloma without remission (HCC) documented in this encounter Results * Immunofix Electrophoresis Bill(SENDOUT) (04/24/2024 11:54 AM EDT) Immun[facility]ix Electrophoresis Bill Billed 04/28/2024 12:27 PM EDT [facility] Comment: Performed By: [facility] [address] [place] [address] Medical Instrument Technician: Parker Rangel MD, PhD CLIA Number: [id number] Blood Venipuncture / Unknown 04/24/2024 11:54 AM EDT 04/24/2024 12:15 PM EDT Caleb Pacheco MD LAB BLOOD ORDERABLES Final Res ult Performing Organization Address [facility] de Phone Number [address] [phone] * (ABNORMAL) Immunoglobulin A(SENDOUT) (04/24/2024 11:54 AM EDT) Pathologist [facility] Immunoglobulin A 1690(H) 68 - 408 mg/dL 04/28/2024 12:12 PM EDT [facility] Comment: Performed By: [facility] [address] [place] [address] Medical Instrument Technician: Parker Rangel MD, PhD CLIA Number: [id number] Blood Venipuncture / Unknown 04/24/2024 11:54 AM EDT 04/24/2024 12:15 PM EDT Caleb Pacheco MD LAB BLOOD ORDERABLES Final Res ult Performing Organization Address [facility] de Phone Number [address] [phone] * (ABNORMAL) Immunoglobulin M(SENDOUT) (04/24/2024 11:54 AM EDT) Immunoglobulin M 12(L) 35 - 263 mg/dL 04/28/2024 12:12 PM EDT [facility] Comment: Performed By: [facility] [address] [place] [address] Medical Instrument Technician: Parker Rangel MD, PhD CLIA Number: [id number] Blood Venipuncture / Unknown 04/24/2024 11:54 AM EDT 04/24/2024 12:15 PM EDT Caleb Pacheco MD LAB BLOOD ORDERABLES Final Res ult Performing Organization Address [facility] de Phone Number [facility] [address] [phone] * (ABNORMAL) Immunoglobulin G(SENDOUT) (04/24/2024 11:54 AM EDT) Pathologist [facility] Immunoglobulin G 142(L) 768 - 1632 mg/dL 04/28/2024 12:12 PM EDT [facility] Comment: Performed By: [facility] [address] [place] [address] Medical Instrument Technician: Parker Rangel MD, PhD CLIA Number: [id number] Blood Venipuncture / Unknown 04/24/2024 11:54 AM EDT 04/24/2024 12:15 PM EDT Caleb Pacheco MD LAB BLOOD ORDERABLES Final Res ult Performing Organization Address [facility] de Phone Number [facility] [address] [phone] * (ABNORMAL) Protein Electrophoresis w Rflx to RALPH(SENDOUT) (04/24/2024 11:54 AM EDT) Pathologist [facility] Total Protein, Serum 6.7 6.3 - 8.2 g/dL 04/28/2024 12:27 PM EDT [facility] Albumin 2.95(L) 3.75 - 5.01 g/dL 04/28/2024 12:27 PM EDT [facility] Alpha 1 Globulin 0.31 0.19 - 0.46 g/dL 04/28/2024 12:27 PM EDT [facility] Alpha 2 Globulin 0.72 0.48 - 1.05 g/dL 04/28/2024 12:27 PM EDT [facility] Beta Globulin 2.54(H) 0.48 - 1.10 g/dL 04/28/2024 12:27 PM EDT [facility] Gamma 0.17(L) 0.62 - 1.51 g/dL 04/28/2024 12:27 PM EDT [facility] Immunofixation Reflex RALPH Done 04/28/2024 12:27 PM EDT [facility] Monoclonal Protein 2.19(H) <=0.00 g/dL 04/28/2024 12:27 PM EDT [facility] SPEP/RALPH Interpretation See Note 04/28/2024 12:27 PM EDT [facility] Comment: Monoclonal spike in the beta region. The quantitation may include complement and/or transferrin components. Measurement of total Immunoglobulin (IgA, IgG, or IgM) can be used for the quantitation of the monoclonal spike instead. Hypogammaglobulinemia. RALPH gel pattern shows an IgA type lambda monoclonal protein with an additional faint band in lambda. [facility] Serum Protein Electrophoresis Reflex See Note 04/28/2024 12:27 PM EDT [facility] Comment: Authorized individuals can access the [facility] Enhanced Report using the following link: [email or web address] Performed By: [facility] [address] [place] [address] Medical Instrument Technician: Parker Rangel MD, PhD CLIA Number: [id number] Blood Venipuncture / Unknown 04/24/2024 11:54 AM EDT 04/24/2024 12:15 PM EDT us Caleb Pacheco MD LAB BLOOD ORDERABLES Final Res ult [facility] [address] [place] [address], [facility] [phone] * (ABNORMAL) [place]-Lambda Quant FLC with Ratio(SENDOUT) (04/24/2024 11:54 AM EDT) [place] Qnt Free Light Chains 1.63(L) 3.30 - 19.40 mg/L 04/26/2024 10:00 PM EDT [facility] Comment: INTERPRETIVE INFORMATION: [place] Qnt Free Light Chains Undetected antigen excess is a rare event but cannot be excluded. Free light chain results should always be interpreted in conjunction with other clinical and laboratory findings. Lambda Qnt Free Light Chains 113.62(H) 5.71 - 26.30 mg/L 04/26/2024 10:00 PM EDT [email or web address] Comment: INTERPRETIVE INFORMATION: Lambda Qnt Free Light Chains Undetected antigen excess is a rare event but cannot be excluded. Free light chain results should always be interpreted in conjunction with other clinical and laboratory findings. [place]/Lambda Free Light Chain Ratio 0.01(L) 0.26 - 1.65 04/26/2024 10:00 PM EDT [email or web address] Comment: Performed By: [facility] [address] [place] [address] Medical Instrument Technician: Parker Rangel MD, PhD CLIA Number: [id number] Blood Venipuncture / Unknown 04/24/2024 11:54 AM EDT 04/24/2024 12:15 PM EDT us Caleb Pacheco MD LAB BLOOD ORDERABLES Final Res ult [facility] [address] [place] [address], [facility] [phone] * (ABNORMAL) CBC with Automated Diff (04/24/2024 11:54 AM EDT) WBC 6.3 4.5 - 12.5 K/??L 04/24/2024 12:20 PM EDT [facility] RBC 3.27(L) 4.00 - 5.25 M/??L 04/24/2024 12:20 PM EDT [facility] Hemoglobin 10.6(L) 12.0 - 16.0 GM/DL 04/24/2024 12:20 PM EDT [facility] Hematocrit 34.1(L) 36.0 - 46.0 % 04/24/2024 12:20 PM EDT [facility] MCV 104(H) 80 - 100 fL 04/24/2024 12:20 PM EDT [facility] MCH 32.4 26.0 - 34.0 pg 04/24/2024 12:20 PM EDT [facility] MCHC 31.1 31.0 - 37.0 GM/DL 04/24/2024 12:20 PM EDT [facility] RDW 14.7 12.0 - 16.8 % 04/24/2024 12:20 PM EDT [facility] Platelets 256 140 - 440 K/CU MM 04/24/2024 12:20 PM EDT [facility] MPV 10.6(H) 7.4 - 10.4 fL 04/24/2024 12:20 PM EDT [facility] % Neutros 61 45 - 80 % 04/24/2024 12:20 PM EDT [facility] % Lymphs 27 15 - 45 % 04/24/2024 12:20 PM EDT [facility] % Monos 10 0 - 10 % 04/24/2024 12:20 PM EDT [facility] % Eos 3 0 - 5 % 04/24/2024 12:20 PM EDT [facility] % Baso 1 0 - 3 % 04/24/2024 12:20 PM EDT [facility] # Neutros 3.80 2.00 - 8.80 K/??L 04/24/2024 12:20 PM EDT [facility] # Lymphs 1.68 0.70 - 5.50 K/??L 04/24/2024 12:20 PM EDT [facility] # Monos 0.60 0.00 - 1.70 K/??L 04/24/2024 12:20 PM EDT [facility] # Eos 0.16 0.00 - 0.80 K/??L 04/24/2024 12:20 PM EDT [facility] # Baso 0.03 0.00 - 0.20 K/??L 04/24/2024 12:20 PM EDT [facility] Blood Venipuncture / Unknown 04/24/2024 11:54 AM EDT 04/24/2024 12:15 PM EDT Narrative [facility] - 04/24/2024 12:20 PM EDT When CBC w/ Auto Diff is ordered the lab will add a Manual Differential as a quality check at no additional charge if: Lymphocytes greater than seventy five percent with normal or increased WBC Monocytes greater than Fifteen percent Basophil greater than four percent Bands >10% or several immature myeloids are seen on scan Blast? Flag noted Atypical Lymph flag noted Caleb Pacheco MD LAB BLOOD ORDERABLES Final Res ult [facility] [address] [phone] * (ABNORMAL) Oncology Basic Metabolic Panel (04/24/2024 11:54 AM EDT) Sodium 140 136 - 146 meq/L 04/24/2024 12:20 PM EDT [facility] Potassium 5.7(H) 3.5 - 5.1 meq/L 04/24/2024 12:20 PM EDT [facility] Chloride 107 98 - 108 meq/L 04/24/2024 12:20 PM EDT [facility] CO2 22 22 - 29 meq/L 04/24/2024 12:20 PM EDT [facility] Anion Gap 17 9 - 20 04/24/2024 12:20 PM EDT [facility] BUN 13 7 - 18 mg/dL 04/24/2024 12:20 PM EDT [facility] Creatinine 1.10 0.60 - 1.10 mg/dL 04/24/2024 12:20 PM EDT [facility] BUN/Creatinine 12 8 - 20 04/24/2024 12:20 PM EDT [facility] Glucose 81 70 - 105 mg/dL 04/24/2024 12:20 PM EDT [facility] Calcium Ionized (mg/dL) 4.80 4.36 - 5.20 mg/dL 04/24/2024 12:20 PM EDT [facility] Blood Venipuncture / Unknown 04/24/2024 11:54 AM EDT 04/24/2024 12:15 PM EDT Caleb Pacheco MD LAB BLOOD ORDERABLES Final Res ult [facility] [address] [phone] * (ABNORMAL) Hepatic function panel (04/24/2024 11:54 AM EDT) Protein, Total 7.9 6.4 - 8.2 gm/dL 04/24/2024 12:58 PM [facility] Albumin 3.0(L) 3.4 - 5.0 g/dL 04/24/2024 12:58 PM [facility] Total Bilirubin 0.4 0.2 - 1.3 mg/dL 04/24/2024 12:58 PM [facility] Bilirubin, Direct <0.1 0.0 - 0.2 mg/dL 04/24/2024 12:58 PM [facility] Alkaline Phosphatase 64 27 - 136 U/L 04/24/2024 12:58 PM [facility] Globulin 4.9(H) 1.5 - 4.5 g/dL 04/24/2024 12:58 PM [facility] A/G Ratio 0.6(L) 1.1 - 2.5 04/24/2024 12:58 PM [facility] AST 21 5 - 37 U/L 04/24/2024 12:58 PM [facility] Comment:[employer] has become aware of sulfasalazine and [...] prior to administration of the drug. ALT 14 12 - 78 U/L 04/24/2024 12:58 PM [facility] Comment:[employer] has become aware of sulfasalazine and [...] prior to administration of the drug. Blood VENOUS STRUCTURE / Unknown Venipuncture / Unknown 04/24/2024 11:54 AM EDT 04/24/2024 12:15 PM EDT us Caleb Pacheco MD LAB BLOOD ORDERABLES Final Res ult [facility] [address] [phone] documented in this encounter Visit Diagnoses Diagnosis Multiple myeloma without remission (HCC) documented in this encounter Care Teams Lpn Rn Relationship Specialty Start Date End Date Clifford Newell PA [address] [place] [phone] PCP - General Physician Floral Design Teacher 10/14/23 documented as of this encounter
--- OUTSIDE RECORDS SUMMARY | 2024-08-03 16:58 | XMS_ITS | Encounter Summary ---
Author Organization [facility] Address [address] [place] [address] Care Team Providers Care Chronic Disease Manager Name Role Phone Clifford Newell Primary Care Provider + [phone] Reason for Visit * Reason Comments Follow-up Multiple Myeloma 2 week f/u Kyprolis [id number] Encounter Details Date Type Department Care Team (Late st Contact Info) Description 05/12/2024 9:45 AM EDT Office Visit [facility] [address] [place] [address] [address] [place] [address] Caleb Pacheco MD [address] [facility] [address] [place] [address] Multiple myeloma without remission (HCC) [...] Date Kulwant rded Speak language other than Sri Lankan at home Not on file 10/05/2023 Want [...] Sign Reading Time Taken Comments Blood Pressure 128/63 05/12/2024 11:07 AM EDT Pulse 79 05/12/2024 11:07 AM EDT Temperature 36.6 ??C (97.9 ??F) 05/12/2024 11:07 AM E DT Respiratory Rate 18 05/12/2024 11:07 AM EDT Oxygen Saturation 98% 05/12/2024 11:07 AM EDT Inhaled Oxygen Concentration - - Weight 106.6 kg (235 lb) 05/12/2024 11:07 AM EDT Height - - Body Mass Index 35.74 04/24/2024 11:52 AM EDT documented in this encounter Progress Notes * Caleb Pacheco MD - 05/12/2024 9:45 AM EDT Chief Complaint: History of Present Illness: Francy Bailey is a 63 y.o. female who presents today for follow up of multiple myeloma. She has been on carfilzomib. She tolerates it well. She does have fatigue. She does complain a littleback pain today. She has not had bone pain for some time. She has maintained her weight. She deniesany shortness of breath except with exertion no cardiac rhythm abnormalities. Past Medical History: Diagnosis Date ??? Asthma [...] Treatment Summary Treatment goal Palliative Plan Name [facility] Multiple Myeloma - daratumumab (Darzalex) IV d1,8,15,22 fb D1,15 fb d1 + pomalidomide(Pomalyst) PO d1-21 every 28 days Status Inactive Start Date 11/03/2022 End Date 01/11/2024 Provider Caleb Pacheco MD Chemotherapy pomalidomide 4 mg Cap, 4 mg, Oral, Daily, 1 of 1 cycle, Start date: --, End date: -- kjktvsijljn-pwhrcqbyncmoc-gnau (DARZALEX FASPRO) 1,800 mg-30,000 unit/15 mL subcutaneous [...] Treatment Summary Treatment goal Palliative Plan Name [facility] Multiple Myeloma - carfilzomib (Kyprolis) 20/56 [...] 120 mg(04/11/2024), 120 mg (04/24/2024), 120 mg (05/02/2024) Allergies: Ampicillin, Codeine, Indomethacin, Morphine, and Penicillin [...] visit. Review of Systems: Review of Systems Constitutional: Positive for fatigue. Respiratory: Positive for shortness of breath. Musculoskeletal: Positive for back pain. All other systems reviewed and are negative. Vitals: Vitals: 05/12/24 1107 BP: 128/63 Pulse: 79 Resp: 18 Temp: 97.9 ??F (36.6 ??C) SpO2: 98% Weight: 106.6 kg (235 lb) Physical Exam: Physical Exam Vitals reviewed. Constitutional: [...] No dullness to percussion in her lung lower bases bilaterally Abdominal: General: Abdomen is flat. Bowel sounds are normal. Palpations: Abdomen is soft. Comments: No splenomegaly below left costal margin Musculoskeletal: General: Normal range of motion. Cervical back: Normal range of motion and neck supple. Comments: I cannot reproduce or cause her to have significant bone pain today Neurological: General: No focal deficit present. Mental Status: She is alert. Relevant Results: Office Visit on 05/12/2024 Component Date Value Ref Range Status ??? WBC 05/12/2024 3.2 (L) 4.5 - 12.5 K/??L Final ??? RBC 05/12/2024 2.95 (L) 4.00 - 5.25 M/??L Final ??? Hemoglobin 05/12/2024 9.7 (L) 12.0 - 16.0 GM/DL Final ??? Hematocrit 05/12/2024 31.8 (L) 36.0 - 46.0 % Final ??? MCV 05/12/2024 108 (H) 80 - 100 fL Final ??? MCH 05/12/2024 32.9 26.0 - 34.0 pg Final ??? MCHC 05/12/2024 30.5 (L) 31.0 - 37.0 GM/DL Final ??? RDW 05/12/2024 14.8 12.0 - 16.8 % Final ??? Platelets 05/12/2024 171 140 - 440 K/CU MM Final ??? MPV 05/12/2024 10.4 7.4 - 10.4 fL Final ??? % Neutros 05/12/2024 47 45 - 80 % Final ??? % Lymphs 05/12/2024 34 15 - 45 % Final ??? % Monos 05/12/2024 17 (H) 0 - 10 % Final ??? % Eos 05/12/2024 2 0 - 5 % Final ??? % Baso 05/12/2024 0 0 - 3 % Final ??? # Neutros 05/12/2024 1.49 (L) 2.00 - 8.80 K/??L Final ??? # Lymphs 05/12/2024 1.06 0.70 - 5.50 K/??L Final ??? # Monos 05/12/2024 0.55 0.00 - 1.70 K/??L Final ??? # Eos 05/12/2024 0.05 0.00 - 0.80 K/??L Final ??? # Baso 05/12/2024 0.01 0.00 - 0.20 K/??L Final Infusion on 05/02/2024 Component Date Value Ref Range Status ??? WBC 05/02/2024 4.6 4.5 - 12.5 K/??L Final ??? RBC 05/02/2024 2.99 (L) 4.00 - 5.25 M/??L Final ??? Hemoglobin 05/02/2024 9.8 (L) 12.0 - 16.0 GM/DL Final ??? Hematocrit 05/02/2024 31.9 (L) 36.0 - 46.0 % Final ??? MCV 05/02/2024 107 (H) 80 - 100 fL Final ??? MCH 05/02/2024 32.8 26.0 - 34.0 pg Final ??? MCHC 05/02/2024 30.7 (L) 31.0 - 37.0 GM/DL Final ??? RDW 05/02/2024 14.6 12.0 - 16.8 % Final ??? Platelets 05/02/2024 154 140 - 440 K/CU MM Final ??? MPV 05/02/2024 10.7 (H) 7.4 - 10.4 fL Final ??? % Neutros 05/02/2024 58 45 - 80 % Final ??? % Lymphs 05/02/2024 25 15 - 45 % Final ??? % Monos 05/02/2024 15 (H) 0 - 10 % Final ??? % Eos 05/02/2024 2 0 - 5 % Final ??? % Baso 05/02/2024 0 0 - 3 % Final ??? # Neutros 05/02/2024 2.66 2.00 - 8.80 K/??L Final ??? # Lymphs 05/02/2024 1.17 0.70 - 5.50 K/??L Final ??? # Monos 05/02/2024 0.67 0.00 - 1.70 K/??L Final ??? # Eos 05/02/2024 0.09 0.00 - 0.80 K/??L Final ??? # Baso 05/02/2024 0.02 0.00 - 0.20 K/??L Final Infusion on 04/24/2024 Component Date Value Ref [...] 04/24/2024 21 5 - 37 U/L Final [facility] has become aware of sulfasalazine and sulfapyridine [...] 04/24/2024 14 12 - 78 U/L Final [facility] has become aware of sulfasalazine and sulfapyridine [...] 04/24/2024 0.03 0.00 - 0.20 K/??L Final ??? [place] Qnt Free Light Chains 04/24/2024 1.63 (L) 3.30 - 19.40 mg/L Final INTERPRETIVE INFORMATION: [place] Qnt Free Light Chains Undetected antigen excess is a rare event but cannot be excluded. Free light chain results should always be interpreted in conjunction with other clinical and laboratory findings. ??? Lambda Qnt Free Light Chains 04/24/2024 113.62 (H) 5.71 - 26.30 mg/L Final INTERPRETIVE INFORMATION: Lambda Qnt Free Light Chains Undetected antigen excess is a rare event but cannot be excluded. Free light chain results should always be interpreted in conjunction with other clinical and laboratory findings. ??? [place]/Lambda Free Light Chain Ratio 04/24/2024 0.01 (L) 0.26 - 1.65 Final Performed By: [facility] [address] [place] [address] Gripper Attacher: Parker Rangel MD, PhD CLIA Number: [id number] ??? Total Protein, Serum 04/24/2024 6.7 6.3 - 8.2 g/dL Final ??? Albumin 04/24/2024 2.95 (L) 3.75 - 5.01 g/dL Final ??? Alpha 1 Globulin 04/24/2024 0.31 0.19 - 0.46 g/dL Final ??? Alpha 2 Globulin 04/24/2024 0.72 0.48 - 1.05 g/dL Final ??? Beta Globulin 04/24/2024 2.54 (H) 0.48 - 1.10 g/dL Final ??? Gamma 04/24/2024 0.17 (L) 0.62 - 1.51 g/dL Final ??? Immunofixation Reflex 04/24/2024 RALPH Done Final ? ? Monoclonal Protein 04/24/2024 2.19 (H) <=0.00 g/dL Final ??? SPEP/RALPH Interpretation 04/24/2024 See Note Final Monoclonal spike in the beta region. The quantitation may include complement and/or transferrin components. Measurement of total Immunoglobulin (IgA, IgG, or IgM) can be used for the quantitation of the monoclonal spike instead. Hypogammaglobulinemia. RALPH gel pattern shows an IgA type lambda monoclonal protein with an additional faint band in lambda. ??? EER Serum Protein Electrophoresis * 04/24/2024 See Note Final Authorized individuals can access the [employer] Enhanced Report using the following link: [email or web address] Performed By: [facility] [address] [place] [address] Gripper Attacher: Parker Rangel MD, PhD CLIA Number: [id number] ??? Immunoglobulin G 04/24/2024 142 (L) 768 - 1632 mg/dL Final Performed By: [facility] [address] [place] [address] Gripper Attacher: Parker Rangel MD, PhD CLIA Number: [id number] ??? Immunoglobulin M 04/24/2024 12 (L) 35 - 263 mg/dL Final Performed By: [facility] [address] [place] [address] Gripper Attacher: Parker Rangel MD, PhD CLIA Number: [id number] ??? Immunoglobulin A 04/24/2024 1690 (H) 68 - 408 mg/dL Final Performed By: [facility] [address] [place] [address] Gripper Attacher: Parker Rangel MD, PhD CLIA Number: [id number] ??? [employer]ix Electrophoresis Bill 04/24/2024 Billed Final Performed By: [facility] [address] [place] [address] Gripper Attacher: Parker Rangel MD, PhD CLIA Number: [id number] No results found. Cancer Staging No matching staging information was found for the patient. Plan: Her blood counts are acceptable. She will finish her third cycle of treatment. She receives the carfilzomib at 120 mg over an hour. She will be premedicated with Pepcid 20 Benadryl 25 Kytril 1 and dexamethasone 20 mg. She is off next week and returns in 2 weeks. I did show her her M spike is dropped about 30 to 40%. Probably check that again in May. Overall I think she is doing okay. She is tolerating treatment all right and we are seeing her response to therapy. Signed: Electronically signed by Caleb Pacheco MD 05/12/24 12:21 PM EDT MARILEE Muñoz documented in this encounter Plan of Treatment Not on file documented as of this encounter Procedures Procedure Name Priority Date/Time Associated Diagnosis Comments CBC W/ AUTO DIFF STAT 05/12/2024 10:3 8 AM EDT Multiple myeloma without remission (HCC) documented in this encounter Results * (ABNORMAL) CBC with Automated Diff (05/12/2024 10:38 AM EDT) WBC 3.2(L) 4.5 - 12.5 K/??L 05/12/2024 10:48 AM EDT [facility] RBC 2.95(L) 4.00 - 5.25 M/??L 05/12/2024 10:48 AM EDT [facility] Hemoglobin 9.7(L) 12.0 - 16.0 GM/DL 05/12/2024 10:48 AM EDT [facility] Hematocrit 31.8(L) 36.0 - 46.0 % 05/12/2024 10:48 AM EDT [facility] MCV 108(H) 80 - 100 fL 05/12/2024 10:48 AM EDT [facility] MCH 32.9 26.0 - 34.0 pg 05/12/2024 10:48 AM EDT [facility] MCHC 30.5(L) 31.0 - 37.0 GM/DL 05/12/2024 10:48 AM EDT [facility] RDW 14.8 12.0 - 16.8 % 05/12/2024 10:48 AM EDT [facility] Platelets 171 140 - 440 K/CU MM 05/12/2024 10:48 AM EDT [facility] MPV 10.4 7.4 - 10.4 fL 05/12/2024 10:48 AM EDT [facility] % Neutros 47 45 - 80 % 05/12/2024 10:48 AM EDT [facility] % Lymphs 34 15 - 45 % 05/12/2024 10:48 AM EDT [facility] % Monos 17(H) 0 - 10 % 05/12/2024 10:48 AM EDT [facility] % Eos 2 0 - 5 % 05/12/2024 10:48 AM EDT [facility] % Baso 0 0 - 3 % 05/12/2024 10:48 AM EDT [facility] # Neutros 1.49(L) 2.00 - 8.80 K/??L 05/12/2024 10:48 AM EDT [facility] # Lymphs 1.06 0.70 - 5.50 K/??L 05/12/2024 10:48 AM EDT [facility] # Monos 0.55 0.00 - 1.70 K/??L 05/12/2024 10:48 AM EDT [facility] # Eos 0.05 0.00 - 0.80 K/??L 05/12/2024 10:48 AM EDT [facility] # Baso 0.01 0.00 - 0.20 K/??L 05/12/2024 10:48 AM EDT [facility] Blood ENTIRE RIGHT UPPER ARM / Unknown Venipuncture / Unknown 05/12/2024 10:38 AM EDT 05/12/2024 10:45 AM EDT Narrative [facility] - 05/12/2024 10:48 AM EDT When CBC w/ Auto Diff [...] ORDERABLES Final Res ult Performing Organization Address City/State/[facility] Co de Phone Number [facility] [address] [phone] documented in this encounter Visit Diagnoses Diagnosis Multiple myeloma without remission (HCC) documented in this encounter Care Teams Chronic Disease Manager Relationship Specialty Start Date End Date Clifford Newell PA [address] [place] [address] [place] [address] PCP - General Physician Combat Systems Engineer 10/14/23 documented as of this encounter
--- OUTSIDE RECORDS SUMMARY | 2024-08-03 16:58 | XMS_ITS | Encounter Summary ---
Author Organization [employer] Address [address] [place] [address] Care Team Providers Care Personnel Worker Name Role Phone Clifford Newell Primary Care Provider + [phone] Encounter Details Date Type Department Care Team (Latest Contact Info) Description 05/26/2024 Travel Social History Tobacco Use Types Packs/Day [...] on filedocumented in this encounter Care Teams Personnel Worker Relationship Specialty Start Date End Date Clifford Newell PA [address] [place] [address] JERAD Ling [address] PCP - General Physician Android Programmer 10/14/23 documented as of this encounter
--- OUTSIDE RECORDS SUMMARY | 2024-08-03 16:58 | XMS_ITS | Encounter Summary ---
Author Organization [employer] Address [address] [place] [address] Care Team Providers Care Robotics Technologist Name Role Phone Clifford Newell Primary Care Provider + [phone] Reason for Visit * Reason Comments Chemotherapy * Episode Based Medication (Routine) - Closed Specialty Diagnoses / Procedures Referred By Ana Paula anne Referred To Contact Diagnoses Multiple myeloma without remission (HCC) Procedures ND GRANISETRON HCL INJECTION ND INJECTION, CARFILZOMIB, 1 MG Caleb Pacheco MD [address] [place] [address] Phone: tel: fax: [facility] [address] [place] [address] Phone: tel: fax:[phone] Referral ID Status Reason Start Date Expiration Date Visits Re quested Visits Authorized [id number] Closed 02/17/2024 02/17/2025 1 193 Encounter Details Date Type Department Care Team (Late st Contact Info) Description 05/02/2024 11:30 AM EDT Infusion [facility] [address] [place] [address] Caleb Pacheco MD [address] [place] [address] Multiple myeloma without remission (HCC) [...] Date Kulwant rded Speak language other than Armenian at home Not on file 10/05/2023 Want [...] Sign Reading Time Taken Comments Blood Pressure 111/57 05/02/2024 11:29 AM EDT Pulse 73 05/02/2024 11:29 AM EDT Temperature 36.6 ??C (97.8 ??F) 05/02/2024 1 1:29 AM EDT Respiratory Rate 16 05/02/2024 11:2 9 AM EDT Oxygen Saturation 98% 05/02/2024 11: 29 AM EDT Inhaled Oxygen Concentration - - Weight 107.1 kg (236 lb 3.2 oz) 024 11:29 AM EDT Height - - Body Mass Index 35.92 04/24/2024 11:52 AM EDT documented in this encounter Progress Notes * Kandi Ford RN - 05/02/2024 11:30 AM EDT Tolerated infusion and injection well. Discharged in stable condition documented in this encounter Plan of Treatment Not on file documented as of this encounter Procedures Procedure Name Priority Date/Time Associated Diagnosis Comments CBC W/ AUTO DIFF STAT 05/02/2024 10:5 9 AM EDT Multiple myeloma without remission (HCC) documented in this encounter Results * (ABNORMAL) CBC with Automated Diff (05/02/2024 10:59 AM EDT) WBC 4.6 4.5 - 12.5 K/??L 05/02/2024 11:23 AM EDT [facility] RBC 2.99(L) 4.00 - 5.25 M/??L 05/02/2024 11:23 AM EDT [facility] Hemoglobin 9.8(L) 12.0 - 16.0 GM/DL 05/02/2024 11:23 AM EDT [facility] Hematocrit 31.9(L) 36.0 - 46.0 % 05/02/2024 11:23 AM EDT [facility] MCV 107(H) 80 - 100 fL 05/02/2024 11:23 AM EDT [facility] MCH 32.8 26.0 - 34.0 pg 05/02/2024 11:23 AM EDT [facility] MCHC 30.7(L) 31.0 - 37.0 GM/DL 05/02/2024 11:23 AM EDT [facility] RDW 14.6 12.0 - 16.8 % 05/02/2024 11:23 AM EDT [facility] Platelets 154 140 - 440 K/CU MM 05/02/2024 11:23 AM EDT [facility] MPV 10.7(H) 7.4 - 10.4 fL 05/02/2024 11:23 AM EDT [facility] % Neutros 58 45 - 80 % 05/02/2024 11:23 AM EDT [facility] % Lymphs 25 15 - 45 % 05/02/2024 11:23 AM EDT [facility] % Monos 15(H) 0 - 10 % 05/02/2024 11:23 AM EDT [facility] % Eos 2 0 - 5 % 05/02/2024 11:23 AM EDT [facility] % Baso 0 0 - 3 % 05/02/2024 11:23 AM EDT [facility] # Neutros 2.66 2.00 - 8.80 K/??L 05/02/2024 11:23 AM EDT [facility] # Lymphs 1.17 0.70 - 5.50 K/??L 05/02/2024 11:23 AM EDT [facility] # Monos 0.67 0.00 - 1.70 K/??L 05/02/2024 11:23 AM EDT [facility] # Eos 0.09 0.00 - 0.80 K/??L 05/02/2024 11:23 AM EDT [facility] # Baso 0.02 0.00 - 0.20 K/??L 05/02/2024 11:23 AM EDT [facility] Blood ENTIRE LEFT UPPER ARM / Unknown Venipuncture / Unknown 05/02/2024 10:59 AM EDT 05/02/2024 11:20 AM EDT Narrative [facility] - 05/02/2024 11:23 AM EDT When CBC w/ Auto Diff [...] Final Res ult [facility] [address] [place] [id number], [facility] [phone] documented in this encounter Visit Diagnoses Diagnosis Multiple myeloma without remission (HCC)- Primary documented in this encounter Administered Medications Inactive Administered Medications - up to 3 most recent administrations Medication Order MAR Action Action Date Dose Rate Site carfilzomib 120 mg in dextrose 5% (D5W) 170 mL chemo infusion 120 mg Once, intravenous, Administer over 30 Minutes, On Wed05/02/24 at 1230, For 1 dose, Chemo IV Set #: [id number] BSA = 2.2m2 (Max BSA for regimen) Reconstitute 60mg vial with 29mL SWFI Carfilzomib = 60mL Caution: Recommend wearing double gloves and protective gown during administration. Employees who are , trying to become , or should not handle this medication. Dispose of trace chemotherapy (including packaging) in the YELLOW waste bin.Indications:Multiple myeloma without remission (HCC) IVPB Started 05/02/2024 12:16 PM EDT 120 mg 340 mL/hr denosumab (XGEVA) subcutaneous injection 120 mg 120 mg Once, subcutaneous, On Wed05/02/24 at 1230, For 1 dose, * Refrigerated * Bring to room temperature 15 to 30 minutes prior to administration., This medication is restricted to use in outpatients only. Is this patient in outpatient status? YesIndications:Multiple myeloma without remission (HCC) Given 05/02/2024 12:56 PM EDT 120 mg Right Arm dexamethasone (DECADRON) 20 mg in sodium chloride 0.9% (NS) 50 mL IVPB 20 mg Once, intravenous, Administer over 5 Minutes, On Wed05/02/24 at 1200, For 1 dose, Protect from Light.Indications:Multiple myeloma without remission (HCC) IVPB Started 05/02/2024 11:41 AM EDT 20 mg 756 mL/hr dextrose 5% (D5W) infusion 500 mL Once, intravenous, at 100 mL/hr, On Wed05/02/24 at 1200, For 1 dose, Infuse at 100 ml/hr for the duration of treatment. May increase or decrease rate as needed.Indications:Multipl e myeloma without remission (HCC) New Bag 05/02/2024 11:35 AM EDT 500 mLs 100 mL/hr diphenhydrAMINE (BENADRYL) injection 25 mg 25 mg Once, intravenous, On Wed05/02/24 at 1200, For 1 doseIndications:Multiple myeloma without remission (HCC) Given 05/02/2024 11:39 AM EDT 25 mg famotidine (PF) injection 20 mg 20 mg Once, intravenous, On Wed05/02/24 at 1200, For 1 dose, Pharmacist to renally dose if CrCl is less than 50 mL/min or on CRRT.Indications:Multiple myeloma without remission (HCC) Given 05/02/2024 11:38 AM EDT 20 mg granisetron (KYTRIL) injection 1 mg 1 mg Once, intravenous, On Wed05/02/24 at 1200, For 1 doseIndications:Multiple myeloma without remission (HCC) Given 05/02/2024 11:37 AM EDT 1 mg sodium chloride 0.9% (NS) flush 10 mL 10 mL As needed, intravenous, line care, Starting on Wed05/02/24 at 1212, Per [facility] Policy.Indications:Multipl e myeloma without remission (HCC) Given 05/02/2024 12:12 PM EDT 10 mLs documented in this encounter Care Teams Robotics Technologist Relationship Specialty Start Date End Date Clifford Newell PA [address] [place] [address] [place] [address] PCP - General Physician Agricultural Services Director 10/14/23 documented as of this encounter
--- OUTSIDE RECORDS SUMMARY | 2024-08-03 16:58 | XMS_ITS | Encounter Summary ---
Author Organization [employer] Address [address] [place] [address] Care Team Providers Care Electric Screw Driver Operator Name Role Phone Clifford Newell Primary Care Provider + [phone] Reason for Visit * Reason Onset Date Comments reschedule appointment on 05/26/24 05/15/2024 Encounter Details Date Type Department Care Team (Late st Contact Info) Description 05/15/2024 Telephone [facility] [address] [facility] [address] [place] [address] Caleb Pacheco MD [address] [facility] [address] [place] [address] reschedule appointment on 05/26/24 Social History Tobacco Use Types Packs/Day Years [...] Date Kulwant rded Speak language other than Lithuanian at home Not on file 10/05/2023 Want [...] Telephone Encounter - Nicki Thurston RN - 05/16/2024 3:15 PM EDT Megan with front desk person spoke with pt regarding her appt, she informed her that DR Pacheco doesn't have any earlier appts. * Telephone Encounter - Nicki Thurston RN - 05/15/2024 11:08 AM EDT Pt called into RN line stating that she needs to move appt on 05/26/24 to between 10 am -12 pm due toissues with finding rides. RN sent message to Any at front desk person to schedule, waiting on response. documented in this encounter Plan of Treatment Not on file documented as of this encounter Visit Diagnoses Not on filedocumented in this encounter Care Teams Electric Screw Driver Operator Relationship Specialty Start Date End Date Clifford Newell PA [address] [place] [address] [place] [address] PCP - General Physician Gas Stove Servicer Helper 10/14/23 documented as of this encounter
--- OUTSIDE RECORDS SUMMARY | 2024-08-03 16:58 | XMS_ITS | Encounter Summary ---
Author Organization [employer] Address [address] [place] [address] Care Team Providers Care Senior Warehouse Clerk Name Role Phone Clifford Newell Primary Care Provider + [phone] Reason for Visit * Episode Based Medication (Routine) - Closed Specialty Diagnoses / Procedures Referred By Ana Paula anne Referred To Contact Diagnoses Multiple myeloma without remission (HCC) Procedures KS GRANISETRON HCL INJECTION KS INJECTION, CARFILZOMIB, 1 MG Caleb Pacheco MD [address] [place] [address] Phone: tel: fax: [facility] [address] [place] [address] Phone: tel: fax: Referral ID Status Reason Start Date Expiration Date Visits Re quested Visits Authorized [id number] Closed 02/17/2024 02/17/2025 1 193 Encounter Details Date Type Department Care Team (Late st Contact Info) Description 04/24/2024 12:30 PM EDT Infusion [facility] [address] [place] [address] Caleb Pacheco MD [address] [place] [address] Multiple myeloma without remission (HCC) [...] Date Kulwant rded Speak language other than Cape Verdean at home Not on file 10/05/2023 Want [...] as of this encounter Progress Notes * Lyudmila Lopez RN - 04/24/2024 12:30 PM EDT Removed invasive line once infusions completed. No problems with infiltration; hemostasis easily achieved. DC home stable condition with family to transport; tolerated procedure well, denies issues or complaints at this time. documented in this encounter Plan of Treatment Not on file documented as of this encounter Procedures Procedure Name Priority Date/Time Associated Diagnosis Comments POTASSIUM STAT 04/24/2024 2:03 PM EDT documented in this encounter Results * Potassium (04/24/2024 2:03 PM EDT) Potassium 3.7 3.5 - 5.1 meq/L 04/24/2024 2:14 PM EDT [facility] Blood ENTIRE LEFT UPPER ARM / Unknown Venipuncture / Unknown 04/24/2024 2:03 PM EDT 04/24/2024 2:04 PM EDT Caleb Pacheco MD LAB BLOOD ORDERABLES Final Res ult [facility] [address] [place] [address] documented in this encounter Visit Diagnoses Diagnosis Multiple myeloma without remission (HCC)- Primary documented in this encounter Administered Medications Inactive Administered Medications - up to 3 most recent administrations Medication Order MAR Action Action Date Dose Rate Site carfilzomib 120 mg in dextrose 5% (D5W) 170 mL chemo infusion 120 mg Once, intravenous, Administer over 30 Minutes, On Wed04/24/24 at 1400, For 1 dose, Chemo IV Set #: [id number] BSA = 2.2m2 (Max BSA for regimen) Reconstitute 60mg vial with 29mL SWFI Carfilzomib = 60mL Caution: Recommend wearing double gloves and protective gown during administration. Employees who are , trying to become , or should not handle this medication. Dispose of trace chemotherapy (including packaging) in the YELLOW waste bin.Indications:Multiple myeloma without remission (HCC) IVPB Started 04/24/2024 2:10 PM EDT 120 mg 340 mL/hr dexamethasone (DECADRON) 20 mg in sodium chloride 0.9% (NS) 50 mL IVPB 20 mg Once, intravenous, Administer over 5 Minutes, On Wed04/24/24 at 1330, For 1 dose, Protect from Light.Indications:Multiple myeloma without remission (HCC) IVPB Started 04/24/2024 1:27 PM EDT 20 mg 756 mL/hr dextrose 5% (D5W) infusion 500 mL Once, intravenous, at 100 mL/hr, On Wed04/24/24 at 1330, For 1 dose, Infuse at 100 ml/hr for the duration of treatment. May increase or decrease rate as needed.Indications:Multiple myeloma without remission (HCC) New Bag 04/24/2024 1:28 PM EDT 500 mLs 100 mL/hr diphenhydrAMINE (BENADRYL) injection 25 mg 25 mg Once, intravenous, On Wed04/24/24 at 1330, For 1 doseIndications:Multiple myeloma without remission (HCC) Given 04/24/2024 1:27 PM EDT 25 mg famotidine (PF) injection 20 mg 20 mg Once, intravenous, On Wed04/24/24 at 1330, For 1 dose, Pharmacist to renally dose if CrCl is less than 50 mL/min or on CRRT.Indications:Multiple myeloma without remission (HCC) Given 04/24/2024 1:27 PM EDT 20 mg granisetron (KYTRIL) injection 1 mg 1 mg Once, intravenous, On Wed04/24/24 at 1330, For 1 doseIndications:Multiple myeloma without remission (HCC) Given 04/24/2024 1:27 PM EDT 1 mg documented in this encounter Care Teams Senior Warehouse Clerk Relationship Specialty Start Date End Date Clifford Newell PA [address] [place] [address] [place] [address] PCP - General Physician Electrical Electronics Engineer 10/14/23 documented as of this encounter
--- OUTSIDE RECORDS SUMMARY | 2024-08-03 16:58 | XMS_ITS | Encounter Summary ---
Author Organization [employer] Address [address] [place] [address] Care Team Providers Care Diamond Mounter Name Role Phone Clifford Newell Primary Care Provider + [phone] Encounter Details Date Type Department Care Team (Late st Contact Info) Description 04/17/2024 Orders Only [facility] [place] [address] Caleb Pacheco MD [address] [place] [address] Multiple myeloma without remission (HCC) [...] Date Kulwant rded Speak language other than Icelandic at home Not on file 10/05/2023 Want [...] encounter Results * (ABNORMAL) Hepatic function panel (04/24/2024 11:54 AM EDT) Protein, Total 7.9 6.4 - 8.2 gm/dL 04/24/2024 12:58 PM EDT [facility] Albumin 3.0(L) 3.4 - 5.0 g/dL 04/24/2024 12:58 PM EDT [facility] Total Bilirubin 0.4 0.2 - 1.3 mg/dL 04/24/2024 12:58 PM EDT [facility] Bilirubin, Direct <0.1 0.0 - 0.2 mg/dL 04/24/2024 12:58 PM EDT [facility] Alkaline Phosphatase 64 27 - 136 U/L 04/24/2024 12:58 PM EDT [facility] Globulin 4.9(H) 1.5 - 4.5 g/dL 04/24/2024 12:58 PM EDT [facility] A/G Ratio 0.6(L) 1.1 - 2.5 04/24/2024 12:58 PM EDT [facility] AST 21 5 - 37 U/L 04/24/2024 12:58 PM EDT [facility] Comment:[employer] has become aware of sulfasalazine and sulfapyridine [...] 12 - 78 U/L 04/24/2024 12:58 PM EDT [facility] Comment:[employer] has become aware of sulfasalazine and sulfapyridine [...] MD LAB BLOOD ORDERABLES Final Res ult [facility] [address] [phone] * (ABNORMAL) Oncology Basic Metabolic Panel (04/24/2024 [...] Res ult [facility] [address] [place] [address], [facility] [phone] * (ABNORMAL) CBC with Automated Diff (04/24/2024 [...] ORDERABLES Final Res ult [facility] - [address] [phone] documented in this encounter Visit Diagnoses Diagnosis Multiple myeloma without remission (HCC)- Primary documented in this encounter Care Teams Diamond Mounter Relationship Specialty Start Date End Date Clifford Newell PA [address] [place] [address] [place] [address] PCP - General Physician Special Agent [employer] 10/14/23 documented as of this encounter
--- OUTSIDE RECORDS SUMMARY | 2024-08-03 16:58 | XMS_ITS | Encounter Summary ---
Author Organization [employer] Address [address] [place] [address] Care Team Providers Care Charter Boat Captain Name Role Phone Clifford Newell Primary Care Provider + [phone] Reason for Visit * Reason Comments Multiple myeloma without remission (HCC) Follow-up 1 wk follow-up + Car filzomib [id number] Encounter Details Date Type Department Care Team (Late st Contact Info) Description 04/11/2024 11:30 AM EDT Office Visit [facility] - [facility] [address] [facility] [address] [place] [address] Caleb Pacheco MD [address] [place] [address] Multiple myeloma without remission (HCC) [...] Date Kulwant rded Speak language other than Mozambican at home Not on file 10/05/2023 Want [...] Sign Reading Time Taken Comments Blood Pressure 122/69 04/11/2024 11:02 AM EDT Pulse 65 04/11/2024 11:02 AM EDT Temperature 36.3 ??C (97.3 ??F) 04/11/2024 11:02 AM E DT Respiratory Rate 18 04/11/2024 11:02 AM EDT Oxygen Saturation 97% 04/11/2024 11:02 AM EDT Inhaled Oxygen Concentration - - Weight 108 kg (238 lb) 04/11/2024 11:02 AM EDT Height 172.7 cm (5' 7.99 ) 04/11/2024 11:02 AM E DT Body Mass Index 36.2 04/11/2024 11:02 AM EDT documented in this encounter Progress Notes * Caleb Pacheco MD - 04/11/2024 11:30 AM EDT Chief Complaint: History of Present Illness: Francy Bailey is a 63 y.o. female who presents today for follow up of multiple myeloma. We have had this problem before where she cannot tolerate a imed. and also carfilzomib at the same time. Very cytopenic. She has not taken any of the pomalidomide now for a week or 2. Her bone pain is pretty well resolved. She has maintained her weight. She has had no significant alopecia. She has had no nausea or other additional concerns Past Medical History: Diagnosis Date ??? Asthma ??? 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 Chronic low back pain ??? [...] Treatment Summary Treatment goal Palliative Plan Name [facility] Multiple Myeloma - daratumumab (Darzalex) IV d1,8,15,22 fb D1,15 fb d1 + pomalidomide(Pomalyst) PO d1-21 every 28 days Status Inactive Start Date 11/03/2022 End Date 01/11/2024 Provider Caleb Pacheco MD Chemotherapy pomalidomide 4 mg Cap, 4 mg, Oral, Daily, 1 of 1 cycle, Start date: --, End date: -- tokkpvskbuz-iyastqqusvkvy-muuu (DARZALEX FASPRO) 1,800 mg-30,000 unit/15 mL subcutaneous [...] Treatment Summary Treatment goal Palliative Plan Name [facility] Multiple Myeloma - carfilzomib (Kyprolis) 20/56 days 1,8,15 + pomalidomide (Pomalyst)1mg PO days 1-21 + Dexamethasone weekly every 28 days Status Active Start Date 02/29/2024 End Date 01/16/2025 (Planned) Provider Caleb Pacheco MD Chemotherapy carfilzomib 44 mg in dextrose 5% (D5W) 132 mL chemo infusion, 44 mg, intravenous, Once, 2 of 12 cycles Dose modification: 120 mg (original dose 123.2 mg, Cycle 1, Reason: Other (See Comments)) Administration: 44 mg (02/29/2024), 120 mg (03/07/2024), 120 mg (03/21/2024), 120 mg (03/28/2024), 120 mg(04/11/2024) Allergies: Ampicillin, Codeine, Indomethacin, Morphine, and Penicillin [...] systems reviewed and are negative. Vitals: Vitals: 04/11/24 1102 BP: 122/69 Pulse: 65 Resp: 18 Temp: 97.3 ??F (36.3 ??C) SpO2: 97% Weight: 108 kg (238 lb) Height: 1.727 m (5' 7.99 ) Physical [...] range of motion and neck supple. Comments: Significant areas of bone pain even in the lower back and hips today Neurological: General: No focal deficit present. Mental Status: She is alert. Relevant Results: Office Visit on 04/11/2024 Component Date Value [...] 04/11/2024 0.08 0.00 - 0.20 K/??L Final Office Visit on 03/28/2024 Component Date Value [...] 03/28/2024 0.01 0.00 - 0.20 K/??L Final No results found. Cancer Staging No matching staging information was found for the patient. Plan: Her neutrophil count is low but still over thousand and her hemoglobin and platelet count areacceptable. She will receive the carfilzomib today at a dose of 120 mg over an hour. She is premedicated with Kytril 1 mg IV Benadryl 25 Pepcid 20 mg IV and dexamethasone 20 IV. Next week she is off from treatment I will see her in a couple weeks. I Jayne stop her pomalidomide. I have not made other recommendations at this time. We will repeat her immunoelectrophoresis and free light chain ratio soon to determine and establish an objective outcome or response. Signed: Electronically signed by Caleb Pacheco MD 04/11/24 5:02 PM EDT MARILEE Muñoz documented in this encounter Plan of Treatment Not on file documented as of this encounter Procedures Procedure Name Priority Date/Time Associated Diagnosis Comments CBC W/ AUTO DIFF STAT 04/11/2024 10:5 3 AM EDT Multiple myeloma without remission (HCC) documented in this encounter Results * (ABNORMAL) Frankewing-Lambda Quant FLC with Ratio(SENDOUT) (04/24/2024 11:54 AM EDT) Frankewing Qnt Free Light Chains 1.63(L) 3.30 - 19.40 mg/L 04/26/2024 10:00 PM EDT [facility] [employer] Comment: INTERPRETIVE INFORMATION: Frankewing Qnt Free Light Chains Undetected antigen excess is a rare event but cannot be excluded. Free light chain results should always be interpreted in conjunction with other clinical and laboratory findings. Lambda Qnt Free Light Chains 113.62(H) 5.71 - 26.30 mg/L 04/26/2024 10:00 PM EDT [facility] [employer] Comment: INTERPRETIVE INFORMATION: Lambda Qnt Free Light Chains Undetected antigen excess is a rare event but cannot be excluded. Free light chain results should always be interpreted in conjunction with other clinical and laboratory findings. Frankewing/Lambda Free Light Chain Ratio 0.01(L) 0.26 - 1.65 04/26/2024 10:00 PM EDT [facility] [employer] Comment: Performed By: [facility] [address] [place] [address] Oncology Consultant: Parker Rangel MD, PhD CLIA Number: [id number] Blood Venipuncture / Unknown 04/24/2024 11:54 AM EDT 04/24/2024 12:15 PM EDT us Caleb Pacheco MD LAB BLOOD ORDERABLES Final Res ult [facility] [address] [place] [address], [facility] [phone] * (ABNORMAL) Protein Electrophoresis w Rflx to RALPH(SENDOUT) (04/24/2024 11:54 AM EDT) Total Protein, Serum 6.7 6.3 - 8.2 g/dL 04/28/2024 12:27 PM EDT [facility] Albumin 2.95(L) 3.75 - 5.01 g/dL 04/28/2024 12:27 PM EDT [facility] Alpha 1 Globulin 0.31 0.19 - 0.46 g/dL 04/28/2024 12:27 PM EDT [facility] Alpha 2 Globulin 0.72 0.48 - 1.05 g/dL 04/28/2024 12:27 PM EDT [facility] Beta Globulin 2.54(H) 0.48 - 1.10 g/dL 04/28/2024 12:27 PM EDT [facility] Gamma 0.17(L) 0.62 - 1.51 g/dL 04/28/2024 12:27 PM EDT [facility] Immunofixation Reflex RALPH Done 04/28/2024 12:27 PM EDT [facility] Monoclonal Protein 2.19(H) <=0.00 g/dL 04/28/2024 12:27 PM EDT [facility] SPEP/RALPH Interpretation See Note 04/28/2024 12:27 PM EDT [facility] Comment: Monoclonal spike in the beta [...] Reflex See Note 04/28/2024 12:27 PM EDT [facility] Comment: Authorized individuals can access the [facility] Enhanced Report using the following link: [email or web address] Performed By: [facility] [address] [place] [address] Oncology Consultant: Parker Rangel MD, PhD CLIA Number: [id number] Blood Venipuncture / Unknown 04/24/2024 11:54 AM EDT 04/24/2024 12:15 PM EDT us Caleb Pacheco MD LAB BLOOD ORDERABLES Final Res ult [facility] [employer] [address] [place] [address], [facility] [phone] * (ABNORMAL) CBC with Automated Diff (04/11/2024 [...] ORDERABLES Final Res ult Performing Organization Address City/State/[facility] Co de Phone Number [facility] [address] [facility] [address] [phone] documented in this encounter Visit Diagnoses Diagnosis Multiple myeloma without remission (HCC) documented in this encounter Care Teams Charter Boat Captain Relationship Specialty Start Date End Date Clifford Newell PA [address] [place] [address] [place] [address] PCP - General Physician Professor Of Fine Art 10/14/23 documented as of this encounter
--- OUTSIDE RECORDS SUMMARY | 2024-08-03 16:58 | XMS_ITS | Encounter Summary ---
Author Organization [employer] Address [address] [place] [address] Care Team Providers Care Mergers And Acquisitions Manager Name Role Phone Clifford Newell Primary Care Provider + [phone] Encounter Details Date Type Department Care Team (Latest Contact Info) Description 03/28/2024 Travel Social History Tobacco Use Types Packs/Day [...] Date Kulwant rded Speak language other than Bulgarian at home Not on file 10/05/2023 Want [...] on filedocumented in this encounter Care Teams Mergers And Acquisitions Manager Relationship Specialty Start Date End Date Clifford Newell PA [address] [place] [address] [place] [phone] PCP - General Physician General Doc 10/14/23 documented as of this encounter
--- OUTSIDE RECORDS SUMMARY | 2024-08-03 16:58 | XMS_ITS | Encounter Summary ---
Author Organization [employer] Address [address] [place] [address] Care Team Providers Care Network Operations Center Technician Name Role Phone Clifford Newell Primary Care Provider + [phone] Encounter Details Date Type Department Care Team (Latest Contact Info) Description 05/02/2024 Travel Social History Tobacco Use Types Packs/Day [...] Date Kulwant rded Speak language other than Japanese at home Not on file 10/05/2023 Want [...] on filedocumented in this encounter Care Teams Network Operations Center Technician Relationship Specialty Start Date End Date Clifford Newell PA [address] [place] [address] [place] [phone] PCP - General Physician Supervisor Cooler Service 10/14/23 documented as of this encounter
--- OUTSIDE RECORDS SUMMARY | 2024-08-03 16:58 | XMS_ITS | Encounter Summary ---
Author Organization [employer] Address [address] [place] [address] Care Team Providers Care Garment Steamer Name Role Phone Clifford Newell Primary Care Provider + [phone] Encounter Details Date Type Department Care Team (Late st Contact Info) Description 05/04/2024 Orders Only [facility] [address] [place] [address] Caleb Pacheco MD [address] [facility] [address] [place] [address] Multiple myeloma without remission (HCC) [...] Date Kulwant rded Speak language other than Cameroonian at home Not on file 10/05/2023 Want [...] ORDERABLES Final Res ult [facility] - [facility] [address] [place] [address], [facility] [phone] documented in this encounter Visit Diagnoses Diagnosis Multiple myeloma without remission (HCC)- Primary documented in this encounter Care Teams Garment Steamer Relationship Specialty Start Date End Date Clifford Newell PA [address] [place] [address] [place] [address] PCP - General Physician Hotel Reservation Agent 10/14/23 documented as of this encounter
--- OUTSIDE RECORDS SUMMARY | 2024-08-03 16:59 | XMS_ITS | Encounter Summary ---
Author Organization [employer] Address [address] [place] [address] Care Team Providers Care Wheat Buyer Name Role Phone Clifford Newell Primary Care Provider + [phone] Reason for Visit * Episode Based Medication (Routine) - Closed Specialty Diagnoses / Procedures Referred By Ana Paula anne Referred To Contact Diagnoses Multiple myeloma without remission (HCC) Procedures OR GRANISETRON HCL INJECTION OR INJECTION, CARFILZOMIB, 1 MG Caleb Pacheco MD [address] [employer] [address] [place] [address] Phone: tel: fax: [facility] [address] [place] [address] Phone: tel: fax: Referral ID Status Reason Start Date Expiration Date Visits Re quested Visits Authorized [id number] Closed 02/17/2024 02/17/2025 1 193 Encounter Details Date Type Department Care Team (Late st Contact Info) Description 02/29/2024 12:15 PM EDT Infusion [facility] [address] [place] [address] Caleb Pacheco MD [address] [place] [address] Multiple myeloma without remission (HCC) [...] Date Kulwant rded Speak language other than Norwegian at home Not on file 10/05/2023 Want [...] Progress Notes * Lyudmila Lopez RN - 02/29/2024 12:15 PM EDT Removed invasive line once infusions [...] Action Action Date Dose Rate Site carfilzomib 44 mg in dextrose 5% (D5W) 132 mL chemo infusion 44 mg Once (set by rule on 02/17/2024 2:48 PM), intravenous, Administer over 30 Minutes, On Wed02/29/24 at 1400, For 1 dose, Chemo IV Set #: [id number] BSA = 2.2m2 (Max BSA for regimen) Reconstitute 10mg vial with 5mL SWFI Reconstitute 30mg vial with 15mL SWFI Carfilzomib = 22mL Caution: Recommend wearing double gloves and protective gown during administration. Employees who are , trying to become , or should not handle this medication. Dispose of trace chemotherapy (including packaging) in the YELLOW waste bin.Indications:Multiple myeloma without remission (HCC) IVPB Started 02/29/2024 2:21 PM EDT 44 mg 264 mL/hr denosumab (XGEVA) subcutaneous injection 120 mg 120 mg Once, subcutaneous, On Wed02/29/24 at 1530, For 1 dose, * Refrigerated * Bring to room temperature 15 to 30 minutes prior to administration., This medication is restricted to use in outpatients only. Is this patient in outpatient status? YesIndications:Multiple myeloma without remission (HCC) Given 02/29/2024 3:17 PM EDT 120 mg Left Arm dexamethasone (DECADRON) 20 mg in sodium chloride 0.9% (NS) 50 mL IVPB 20 mg Once, intravenous, Administer over 5 Minutes, On Wed02/29/24 at 1330, For 1 dose, Protect from Light.Indications:Multiple myeloma without remission (HCC) IVPB Started 02/29/2024 1:19 PM EDT 20 mg 756 mL/hr dextrose 5% (D5W) infusion 500 mL Once, intravenous, at 100 mL/hr, On Wed02/29/24 at 1330, For 1 dose, Infuse at 100 ml/hr for the duration of treatment. May increase or decrease rate as needed.Indications:Multipl e myeloma without remission (HCC) New Bag 02/29/2024 1:20 PM EDT 500 mLs 100 mL/hr diphenhydrAMINE (BENADRYL) injection 25 mg 25 mg Once, intravenous, On 02/29/24 at 1330, For 1 doseIndications:Multiple myeloma without remission (HCC) Given 02/29/2024 1:19 PM EDT 25 mg famotidine (PF) injection 20 mg 20 mg Once, intravenous, On Wed02/29/24 at 1330, For 1 dose, Pharmacist to renally dose if CrCl is less than 50 mL/min or on CRRT.Indications:Multiple myeloma without remission (HCC) Given 02/29/2024 1:19 PM EDT 20 mg granisetron (KYTRIL) injection 1 mg 1 mg Once, intravenous, On e 02/29/24 at 1330, For 1 doseIndications:Multiple myeloma without remission (HCC) Given 02/29/2024 1:19 PM EDT 1 mg documented in this encounter Care Teams Wheat Buyer Relationship Specialty Start Date End Date Clifford Newell PA [address] [place] [address] PCP - General Physician Tube Worker 10/14/23 documented as of this encounter
--- OUTSIDE RECORDS SUMMARY | 2024-08-03 16:59 | XMS_ITS | Encounter Summary ---
Author Organization [employer] Address [address] [place] [address] Care Team Providers Care Cardiovascular Technologist Name Role Phone Clifford Newell Primary Care Provider + [phone] Encounter Details Date Type Department Care Team (Latest Contact Info) Description 03/21/2024 Travel Social History Tobacco Use Types Packs/Day [...] on filedocumented in this encounter Care Teams Cardiovascular Technologist Relationship Specialty Start Date End Date Clifford Newell PA [address] [place] [address] [place] [phone] PCP - General Physician Environmental Designer 10/14/23 documented as of this encounter
--- OUTSIDE RECORDS SUMMARY | 2024-08-03 16:59 | XMS_ITS | Encounter Summary ---
Author Organization [employer] Address [address] [place] [address] Care Team Providers Care Material Controller Name Role Phone Clifford Newell Primary Care Provider + [phone] Reason for Visit * Reason Comments Medication Refill Encounter Details Date Type Department Care Team (Late st Contact Info) Description 03/16/2024 Refill [facility] [place] [address] [facility] [address] [place] [address] Caleb Pacheco MD [address] [facility] [address] [place] [address] Social History Tobacco Use Types [...] Date Kulwant rded Speak language other than [place] at home Not on file 10/05/2023 Want [...] Telephone Encounter - Nicki Thurston RN - 03/16/2024 11:24 AM EDT Prescription Refill Name/Strength/Directions: Pomalyst 1 mg daily for 21 days Quantity:#21 Last Fill Date/Provider:02/17/24 Dr. Pacheco Last Appt:03/07/24-continue pomalyst Next Appt:03/28/24 Requested Pharmacy:[facility] sending this to you to obtain [employer] Auth and process for Dr Pacheco. documented in this encounter Plan of Treatment Not on file documented as of this encounter Visit Diagnoses Not on filedocumented in this encounter Care Teams Material Controller Relationship Specialty Start Date End Date Clifford Newell PA [address] [place] [address] [place] [address] PCP - General Physician Consumer Educator 10/14/23 documented as of this encounter
--- OUTSIDE RECORDS SUMMARY | 2024-08-03 16:59 | XMS_ITS | Encounter Summary ---
Author Organization [employer] Address [address] [place] [address] Care Team Providers Care Egg Crater Name Role Phone Clifford Newell Primary Care Provider + [phone] Reason for Visit * Reason Comments Infusion * Episode Based Medication (Routine) - Authorized Specialty Diagnoses / Procedures Referred By Ana Paula anne Referred To Contact Diagnoses Multiple myeloma without remission (HCC) Procedures DENOSUMAB INJECTION Xgeva/ [id number] Caleb Pacheco MD [address] [place] [address] Phone: tel: fax: [facility] - [place] [address] [place] [address] Phone: tel: fax: Referral ID Status Reason Start Date Expiration Date V isits Requested Visits Authorized [id number] Authorized 06/29/2023 05/15/2025 1 198 Encounter Details Date Type Department Care Team (Late st Contact Info) Description 03/28/2024 9:30 AM EDT Infusion [facility] [place] [address] [place] [address] Caleb Pacheco MD [address] [place] [address] Multiple myeloma without remission (HCC) [...] of this encounter Progress Notes * Myla Franco RN - 03/28/2024 9:30 AM EDTSummary: discharge 1220: Tolerated infusion. DC IV and DC home. SM documented in this encounter Plan of [...] Once, intravenous, Administer over 30 Minutes, On Wed03/28/24 at 1130, For 1 dose, Chemo IV Set #: [id number] BSA = 2.2m2 (Max BSA for regimen) Reconstitute 60mg vial with 29mL SWFI Carfilzomib = 60mL Caution: Recommend wearing double gloves and protective gown during administration. Employees who are , trying to become , or should not handle this medication. Dispose of trace chemotherapy (including packaging) in the YELLOW waste bin.Indications:Multiple myeloma without remission (HCC) IVPB Started 03/28/2024 11:43 AM EDT 120 mg 340 mL/hr denosumab (XGEVA) subcutaneous injection 120 mg 120 mg Once, subcutaneous, On Wed03/28/24 at 1100, For 1 dose, * Refrigerated * Bring to room temperature 15 to 30 minutes prior to administration., This medication is restricted to use in outpatients only. Is this patient in outpatient status? YesIndications:Multiple myeloma without remission (HCC) Given 03/28/2024 10:56 AM EDT 120 mg Left Arm dexamethasone (DECADRON) 20 mg in sodium chloride 0.9% (NS) 50 mL IVPB 20 mg Once, intravenous, Administer over 5 Minutes, On Wed03/28/24 at 1100, For 1 dose, Protect from Light.Indications:Multiple myeloma without remission (HCC) IVPB Started 03/28/2024 10:56 AM EDT 20 mg 756 mL/hr dextrose 5% (D5W) infusion 500 mL Once, intravenous, at 100 mL/hr, On Wed03/28/24 at 1100, For 1 dose, Infuse at 100 ml/hr for the duration of treatment. May increase or decrease rate as needed.Indications:Multipl e myeloma without remission (HCC) New Bag 03/28/2024 10:54 AM EDT 500 mLs 100 mL/hr diphenhydrAMINE (BENADRYL) injection 25 mg 25 mg Once, intravenous, On Wed03/28/24 at 1100, For 1 doseIndications:Multiple myeloma without remission (HCC) Given 03/28/2024 10:55 AM EDT 25 mg famotidine (PF) injection 20 mg 20 mg Once, intravenous, On Wed03/28/24 at 1100, For 1 dose, Pharmacist to renally dose if CrCl is less than 50 mL/min or on CRRT.Indications:Multiple myeloma without remission (HCC) Given 03/28/2024 10:56 AM EDT 20 mg granisetron (KYTRIL) injection 1 mg 1 mg Once, intravenous, On Wed03/28/24 at 1100, For 1 doseIndications:Multiple myeloma without remission (HCC) Given 03/28/2024 10:55 AM EDT 1 mg sodium chloride 0.9% (NS) flush 10 mL 10 mL As needed, intravenous, line care, Starting on Wed03/28/24 at 1027, Per [facility] Policy.Indications:Multipl e myeloma without remission (HCC) Given 03/28/2024 10:53 AM EDT 10 mLs documented in this encounter Care Teams Egg Crater Relationship Specialty Start Date End Date Clifford Newell PA [address] [place] [address] [place] [address] PCP - General Physician Software Installer 10/14/23 documented as of this encounter
--- OUTSIDE RECORDS SUMMARY | 2024-08-03 16:59 | XMS_ITS | Encounter Summary ---
Author Organization [employer] Address [address] [place] [address] Care Team Providers Care Field Care Manager Name Role Phone Clifford Newell Primary Care Provider + [phone] Encounter Details Date Type Department Care Team (Late st Contact Info) Description 03/21/2024 Orders Only [facility] [address] [place] [address] Caleb Pacheco MD [address] [facility] [address] [place] [address] Multiple myeloma without remission (HCC) [...] Date Kulwant rded Speak language other than Yi at home Not on file 10/05/2023 Want [...] encounter Results * (ABNORMAL) Hepatic function panel (03/21/2024 11:40 AM EDT) Protein, Total 8.1 6.4 - 8.2 gm/dL 03/21/2024 1:29 PM EDT [facility] Albumin 2.3(L) 3.4 - 5.0 g/dL 03/21/2024 1:29 PM EDT [facility] Total Bilirubin 0.3 0.2 - 1.3 mg/dL 03/21/2024 1:29 PM EDT [facility] Bilirubin, Direct 0.1 0.0 - 0.2 mg/dL 03/21/2024 1:29 PM EDT [facility] Alkaline Phosphatase 58 27 - 136 U/L 03/21/2024 1:29 PM EDT [facility] Globulin 5.8(H) 1.5 - 4.5 g/dL 03/21/2024 1:29 PM EDT [facility] A/G Ratio 0.4(L) 1.1 - 2.5 03/21/2024 1:29 PM EDT [facility] AST 13 5 - 37 U/L 03/21/2024 1:29 PM EDT [facility] Comment:[employer] has become aware of sulfasalazine and sulfapyridine [...] prior to administration of the drug. ALT 15 12 - 78 U/L 03/21/2024 1:29 PM EDT [facility] Comment:[employer] has become aware of sulfasalazine and sulfapyridine [...] VENOUS STRUCTURE / Unknown Venipuncture / Unknown 03/21/2024 11:40 AM EDT 03/21/2024 12:07 PM EDT us Caleb Pacheco MD LAB BLOOD ORDERABLES Final Res ult Performing Organization Address City/State/[facility] Co de Phone Number [facility] [address] [phone] * Oncology Basic Metabolic Panel (03/21/2024 11:40 AM EDT) Sodium 141 136 - 146 meq/L 03/21/2024 12:12 PM EDT [facility] Potassium 3.6 3.5 - 5.1 meq/L 03/21/2024 12:12 PM EDT [facility] Chloride 108 98 - 108 meq/L 03/21/2024 12:12 PM EDT [facility] CO2 28 22 - 29 meq/L 03/21/2024 12:12 PM EDT [facility] Anion Gap 9 9 - 20 03/21/2024 12:12 PM EDT [facility] BUN 8 7 - 18 mg/dL 03/21/2024 12:12 PM EDT [facility] Creatinine 0.90 0.60 - 1.10 mg/dL 03/21/2024 12:12 PM EDT [facility] BUN/Creatinine 9 8 - 20 03/21/2024 12:12 PM EDT [facility] Glucose 81 70 - 105 mg/dL 03/21/2024 12:12 PM EDT [facility] Calcium Ionized (mg/dL) 4.65 4.36 - 5.20 mg/dL 03/21/2024 12:12 PM EDT [facility] Blood Venipuncture / Unknown 03/21/2024 11:40 AM EDT 03/21/2024 12:07 PM EDT us Caleb Pacheco MD LAB BLOOD ORDERABLES Final Res ult [facility] [address] [place] [address], [facility] [phone] * (ABNORMAL) CBC with Automated Diff (03/21/2024 11:40 AM EDT) WBC 2.8(L) 4.5 - 12.5 K/??L 03/21/2024 12:12 PM EDT [facility] RBC 2.99(L) 4.00 - 5.25 M/??L 03/21/2024 12:12 PM EDT [facility] Hemoglobin 9.8(L) 12.0 - 16.0 GM/DL 03/21/2024 12:12 PM EDT [facility] Hematocrit 31.6(L) 36.0 - 46.0 % 03/21/2024 12:12 PM EDT [facility] MCV 106(H) 80 - 100 fL 03/21/2024 12:12 PM EDT [facility] MCH 32.8 26.0 - 34.0 pg 03/21/2024 12:12 PM EDT [facility] MCHC 31.0 31.0 - 37.0 GM/DL 03/21/2024 12:12 PM EDT [facility] RDW 11.9(L) 12.0 - 16.8 % 03/21/2024 12:12 PM EDT [facility] Platelets 241 140 - 440 K/CU MM 03/21/2024 12:12 PM EDT [facility] MPV 10.9(H) 7.4 - 10.4 fL 03/21/2024 12:12 PM EDT [facility] % Neutros 50 45 - 80 % 03/21/2024 12:12 PM EDT [facility] % Lymphs 32 15 - 45 % 03/21/2024 12:12 PM EDT [facility] % Monos 13(H) 0 - 10 % 03/21/2024 12:12 PM EDT [facility] % Eos 5 0 - 5 % 03/21/2024 12:12 PM EDT [facility] % Baso 0 0 - 3 % 03/21/2024 12:12 PM EDT [facility] # Neutros 1.42(L) 2.00 - 8.80 K/??L 03/21/2024 12:12 PM EDT [facility] # Lymphs 0.91 0.70 - 5.50 K/??L 03/21/2024 12:12 PM EDT [facility] # Monos 0.36 0.00 - 1.70 K/??L 03/21/2024 12:12 PM EDT [facility] # Eos 0.14 0.00 - 0.80 K/??L 03/21/2024 12:12 PM EDT [facility] # Baso 0.01 0.00 - 0.20 K/??L 03/21/2024 12:12 PM EDT [facility] Blood Venipuncture / Unknown 03/21/2024 11:40 AM EDT 03/21/2024 12:07 PM EDT Narrative [facility] - 03/21/2024 12:12 PM EDT When CBC w/ Auto Diff [...] ORDERABLES Final Res ult [facility] [address] [phone] documented in this encounter Visit Diagnoses Diagnosis Multiple myeloma without remission (HCC)- Primary documented in this encounter Care Teams Field Care Manager Relationship Specialty Start Date End Date Clifford Newell PA [address] [place] [phone] PCP - General Physician School Community Relations Coordinator 10/14/23 documented as of this encounter
--- OUTSIDE RECORDS SUMMARY | 2024-08-03 16:59 | XMS_ITS | Encounter Summary ---
Author Organization [employer] Address [address] [place] [address] Care Team Providers Care School Adjustment Counselor Name Role Phone Clifford Newell Primary Care Provider + [phone] Encounter Details Date Type Department Care Team (Late st Contact Info) Description 02/22/2024 Orders Only [facility] [address] [place] [address] Caleb Pacheco MD [address] [facility] [address] [place] [address] Multiple myeloma without remission (HCC) [...] Date Kulwant rded Speak language other than Maltese at home Not on file 10/05/2023 Want [...] encounter Results * (ABNORMAL) Hepatic function panel (02/29/2024 11:47 AM EDT) Protein, Total 9.3(H) 6.4 - 8.2 gm/dL 02/29/2024 12:58 PM EDT [facility] Albumin 2.8(L) 3.4 - 5.0 g/dL 02/29/2024 12:58 PM EDT [facility] Total Bilirubin 0.4 0.2 - 1.3 mg/dL 02/29/2024 12:58 PM EDT [facility] Bilirubin, Direct 0.1 0.0 - 0.2 mg/dL 02/29/2024 12:58 PM EDT [facility] Alkaline Phosphatase 56 27 - 136 U/L 02/29/2024 12:58 PM EDT [facility] Globulin 6.5(H) 1.5 - 4.5 g/dL 02/29/2024 12:58 PM EDT [facility] A/G Ratio 0.4(L) 1.1 - 2.5 02/29/2024 12:58 PM EDT [facility] AST 16 5 - 37 U/L 02/29/2024 12:58 PM EDT [facility] Comment:[employer] has become aware of sulfasalazine and sulfapyridine [...] drug. ALT 12 12 - 78 U/L 02/29/2024 12:58 PM EDT [facility] Comment:[facility] has become aware of sulfasalazine and sulfapyridine [...] VENOUS STRUCTURE / Unknown Venipuncture / Unknown 02/29/2024 11:47 AM EDT 02/29/2024 12:02 PM EDT us Caleb Pacheco MD LAB BLOOD ORDERABLES Final Res ult [facility] [address] [phone] * (ABNORMAL) Oncology Basic Metabolic Panel (02/29/2024 11:47 AM EDT) Sodium 144 136 - 146 meq/L 02/29/2024 12:11 PM EDT [facility] Potassium 3.4(L) 3.5 - 5.1 meq/L 02/29/2024 12:11 PM EDT [facility] Chloride 108 98 - 108 meq/L 02/29/2024 12:11 PM EDT [facility] CO2 24 22 - 29 meq/L 02/29/2024 12:11 PM EDT [facility] Anion Gap 15 9 - 20 02/29/2024 12:11 PM EDT [facility] BUN 12 7 - 18 mg/dL 02/29/2024 12:11 PM EDT [facility] Creatinine 1.00 0.60 - 1.10 mg/dL 02/29/2024 12:11 PM EDT [facility] BUN/Creatinine 12 8 - 20 02/29/2024 12:11 PM EDT [facility] Glucose 103 70 - 105 mg/dL 02/29/2024 12:11 PM EDT [facility] Calcium Ionized (mg/dL) 5.08 4.36 - 5.20 mg/dL 02/29/2024 12:11 PM EDT [facility] Blood Venipuncture / Unknown 02/29/2024 11:47 AM EDT 02/29/2024 12:02 PM EDT us Caleb Pacheco MD LAB BLOOD ORDERABLES Final Res ult [facility] [address] [place] [address], [facility] [phone] * (ABNORMAL) CBC with Automated Diff (02/29/2024 11:47 AM EDT) WBC 5.2 4.5 - 12.5 K/??L 02/29/2024 12:11 PM EDT [facility] RBC 3.64(L) 4.00 - 5.25 M/??L 02/29/2024 12:11 PM EDT [facility] Hemoglobin 12.4 12.0 - 16.0 GM/DL 02/29/2024 12:11 PM EDT [facility] Hematocrit 37.5 36.0 - 46.0 % 02/29/2024 12:11 PM EDT [facility] MCV 103(H) 80 - 100 fL 02/29/2024 12:11 PM EDT [facility] MCH 34.1(H) 26.0 - 34.0 pg 02/29/2024 12:11 PM EDT [facility] MCHC 33.1 31.0 - 37.0 GM/DL 02/29/2024 12:11 PM EDT [facility] RDW 12.7 12.0 - 16.8 % 02/29/2024 12:11 PM EDT [facility] Platelets 185 140 - 440 K/CU MM 02/29/2024 12:11 PM EDT [facility] MPV 10.5(H) 7.4 - 10.4 fL 02/29/2024 12:11 PM EDT [facility] % Neutros 61 45 - 80 % 02/29/2024 12:11 PM EDT [facility] % Lymphs 31 15 - 45 % 02/29/2024 12:11 PM EDT [facility] % Monos 7 0 - 10 % 02/29/2024 12:11 PM EDT [facility] % Eos 0 0 - 5 % 02/29/2024 12:11 PM EDT [facility] % Baso 0 0 - 3 % 02/29/2024 12:11 PM EDT [facility] # Neutros 3.17 2.00 - 8.80 K/??L 02/29/2024 12:11 PM EDT [facility] # Lymphs 1.60 0.70 - 5.50 K/??L 02/29/2024 12:11 PM EDT [facility] # Monos 0.38 0.00 - 1.70 K/??L 02/29/2024 12:11 PM EDT [facility] # Eos 0.02 0.00 - 0.80 K/??L 02/29/2024 12:11 PM EDT [facility] # Baso 0.01 0.00 - 0.20 K/??L 02/29/2024 12:11 PM EDT [facility] Blood Venipuncture / Unknown 02/29/2024 11:47 AM EDT 02/29/2024 12:02 PM EDT Narrative [facility] - 02/29/2024 12:11 PM EDT When CBC w/ Auto Diff [...] ORDERABLES Final Res ult [facility] [address] [phone] documented in this encounter Visit Diagnoses Diagnosis Multiple myeloma without remission (HCC)- Primary documented in this encounter Care Teams School Adjustment Counselor Relationship Specialty Start Date End Date Clifford Newell PA [address] [place] [address] [place] [address] PCP - General Physician Customer Service Dispatcher 10/14/23 documented as of this encounter
--- OUTSIDE RECORDS SUMMARY | 2024-08-03 16:59 | XMS_ITS | Encounter Summary ---
Author Organization [employer] Address [address] [place] [address] Care Team Providers Care Grocery Cashier Name Role Phone Clifford Newell Primary Care Provider + [phone] Reason for Visit * Episode Based Medication (Routine) - Authorized Specialty Diagnoses / Procedures Referred By Ana Paula anne Referred To Contact Diagnoses Multiple myeloma without remission (HCC) Procedures DENOSUMAB INJECTION Xgeva/ [id number] Caleb Pacheco MD [address] [place] [address] Phone: tel: fax: [facility] [place] [address] [place] [address] Phone: tel: fax: Referral ID Status Reason Start Date Expiration Date V isits Requested Visits Authorized [id number] Authorized 06/29/2023 05/15/2025 1 198 Encounter Details Date Type Department Care Team (Late st Contact Info) Description 03/07/2024 12:15 PM EDT Infusion [facility] [place] [address] [place] [address] Caleb Pacheco MD [address] [place] [address] Multiple myeloma without remission (HCC) [...] Progress Notes * Lyudmila Lopez RN - 03/07/2024 12:15 PM EDT Removed invasive line once [...] Once, intravenous, Administer over 30 Minutes, On Wed03/07/24 at 1400, For 1 dose, Chemo IV Set #: [id number] BSA = 2.2m2 (Max BSA for regimen) Reconstitute 60mg vial with 29mL SWFI Carfilzomib = 60mL Caution: Recommend wearing double gloves and protective gown during administration. Employees who are , trying to become , or should not handle this medication. Dispose of trace chemotherapy (including packaging) in the YELLOW waste bin.Indications:Multiple myeloma without remission (HCC) IVPB Started 03/07/2024 1:51 PM EDT 120 mg 340 mL/hr dexamethasone (DECADRON) 20 mg in sodium chloride 0.9% (NS) 50 mL IVPB 20 mg Once, intravenous, Administer over 5 Minutes, On Wed03/07/24 at 1330, For 1 dose, Protect from Light.Indications:Multiple myeloma without remission (HCC) IVPB Started 03/07/2024 1:15 PM EDT 20 mg 756 mL/hr dextrose 5% (D5W) infusion 500 mL Once, intravenous, at 100 mL/hr, On Wed03/07/24 at 1330, For 1 dose, Infuse at 100 ml/hr for the duration of treatment. May increase or decrease rate as needed.Indications:Multiple myeloma without remission (HCC) New Bag 03/07/2024 1:05 PM EDT 500 mLs 100 mL/hr diphenhydrAMINE (BENADRYL) injection 25 mg 25 mg Once, intravenous, On Wed03/07/24 at 1330, For 1 doseIndications:Multiple myeloma without remission (HCC) Given 03/07/2024 1:11 PM EDT 25 mg famotidine (PF) injection 20 mg 20 mg Once, intravenous, On Wed03/07/24 at 1330, For 1 dose, Pharmacist to renally dose if CrCl is less than 50 mL/min or on CRRT.Indications:Multiple myeloma without remission (HCC) Given 03/07/2024 1:09 PM EDT 20 mg granisetron (KYTRIL) injection 1 mg 1 mg Once, intravenous, On Wed03/07/24 at 1330, For 1 doseIndications:Multiple myeloma without remission (HCC) Given 03/07/2024 1:07 PM EDT 1 mg sodium chloride 0.9% (NS) flush 10 mL 10 mL As needed, intravenous, line care, Starting on Wed03/07/24 at 1255, Per [facility] Policy.Indications:Multiple myeloma without remission (HCC) Given 03/07/2024 1:05 PM EDT 10 mLs documented in this encounter Care Teams Grocery Cashier Relationship Specialty Start Date End Date Clifford Newell PA [address] [place] [address] JERAD Ling [phone] PCP - General Physician Plumbing Mechanic 10/14/23 documented as of this encounter
--- OUTSIDE RECORDS SUMMARY | 2024-08-03 16:59 | XMS_ITS | Encounter Summary ---
Author Organization [employer] Address [address] [place] [address] Care Team Providers Care Weaver Axminster Name Role Phone Clifford Newell Primary Care Provider + [phone] Reason for Referral * Diagnostic X-Ray (Routine) - Pending Review Specialty Diagnoses / Procedures Referred By Ana Paula anne Referred To Contact Diagnoses Multiple myeloma without remission (HCC) Procedures Skeletal Survey Caleb Pacheco MD [address] [facility] [address] [place] [address] Phone: tel: fax: Referral ID Status Reason Start Date Expiration Date V isits Requested Visits Authorized [id number] Pending Review 02/18/2024 02/17/2025 1 1 Encounter Details Date Type Department Care Team (Late st Contact Info) Description 02/17/2024 10:00 AM EDT Office Visit [facility] - [facility] [facility] [address] [facility] [address] [place] [address] Caleb Pacheco MD [address] [facility] [address] [place] [address] Multiple myeloma without remission (HCC) [...] Date Kulwant rded Speak language other than Afghan at home Not on file 10/05/2023 Want [...] Sign Reading Time Taken Comments Blood Pressure 124/71 02/17/2024 10:13 AM EDT Pulse 63 02/17/2024 10:13 AM EDT Temperature 36 ??C (96.8 ??F) 02/17/2024 10: 13 AM EDT Respiratory Rate 18 02/17/2024 10:1 3 AM EDT Oxygen Saturation 96% 02/17/2024 10: 13 AM EDT RA Inhaled Oxygen Concentration - - Weight 112.5 kg (248 lb 1.6 oz) 05/30/2 024 10:13 AM EDT Height - - Body Mass Index 37.17 01/04/2024 1:37 PM EDT documented in this encounter Progress Notes * Caleb Pacheco MD - 02/17/2024 10:00 AM EDT Chief Complaint: History of Present Illness: Francy Bailey is a 63 y.o. female who presents today for follow up of multiple myeloma. Her M spike continues to worsen. She has pain in her shoulders and back. She has not any progressive weakness. She denies other new symptoms today. Past Medical History: Diagnosis Date ??? Asthma ??? 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 Chronic low back pain ??? DVT [...] severe neutropenia. M. Pomalidomide stopped 04/06/2023 cytopenias Multiple myeloma without remission (HCC) 06/16/2022 Initial Diagnosis Multiple myeloma without remission (HCC) 11/03/2022 - Chemotherapy Treatment Summary Treatment goal Palliative Plan Name [facility] Multiple Myeloma - daratumumab (Darzalex) IV d1,8,15,22 fb D1,15 fb d1 + pomalidomide(Pomalyst) PO d1-21 every 28 days Status Active Start Date 11/03/2022 End Date 09/28/2024 (Planned) Provider Caleb Pacheco MD Chemotherapy pomalidomide 4 mg Cap, 4 mg, Oral, Daily, 1 of 1 cycle, Start date: --, End date: -- [id number] (DARZALEX FASPRO) 1,800 mg-30,000 unit/15 mL subcutaneous [...] (11/16/2023), 1,800 mg (12/14/2023), 1,800 mg (01/11/2024) Allergies: Ampicillin, Codeine, Indomethacin, Morphine, and Penicillin Medications: Current Outpatient Medications on File Prior to Visit Medication Sig Dispense Refill ??? Advair HFA 115-21 mcg/actuation inhaler 2 puffs 2 (two) times daily. ??? ascorbic acid, vitamin C, (VITAMIN C) 250 MG tablet Take 2 tablets (500 mg total) by mouth. ??? BIOTIN ORAL Take 6,000 mcg by [...] 2 (two) times daily as needed. ??? dexAMETHasone (DECADRON) 4 MG tablet TAKE 5 TABLETS BY MOUTH ON THE MORNING OF CHEMOTHERAPY. 30tablet 3 ??? ergocalciferol (ERGOCALCIFEROL) 1,250 mcg (50,000 unit) capsule Take 1 capsule (50,000 Units total) by mouth once a week. ??? fluticasone propionate (FLONASE) 50 mcg/actuation nasal spray 2 sprays daily. ??? meclizine (ANTIVERT) 25 mg tablet [...] (30 mg total) by mouth daily. ??? potassium chloride SA (K-DUR,KLOR-CON-M) 20 MEQ tablet Take 1 tablet (20 mEq total) by mouth daily. ??? ProAir HFA 90 mcg/actuation inhaler 2 puffs. ??? scopolamine (TRANSDERM-SCOP) 1 mg over [address] 1 patch (1.5 mg total) onto the skin every third day. 10 patch 3 ??? simvastatin (ZOCOR) 10 MG tablet Take 1 tablet (10 mg total) by mouth nightly. ??? Tab-A-Avery 400 mcg Tab Take 1 tablet by mouth daily. ??? Xarelto 20 mg tablet SMARTSI Tablet(s) By Mouth Every Evening ??? zolpidem (AMBIEN) 10 mg tablet Take 1 tablet (10 mg total) by mouth every night as needed for Insomnia for up to 90 days. Max Daily Amount: 10 mg 30 tablet 2 ??? benzonatate (TESSALON) 100 MG capsule Take 1 capsule (100 mg total) by mouth 3 (three) times daily as needed for Cough for up to 30 doses. (Patient not taking: Reported on 02/17/2024.) 30 capsule 0 ??? gabapentin (NEURONTIN) 300 MG capsule Take 1 capsule (300 mg total) by mouth 3 (three) times daily. No current facility-administered medications on file prior to visit. Review of Systems: Review of Systems All other systems reviewed and are negative. Vitals: Vitals: 02/17/24 1013 BP: 124/71 Pulse: 63 Resp: 18 Temp: 96.8 ??F (36 ??C) SpO2: 96% Weight: 112.5 kg (248 lb 1.6 oz) Physical Exam: Physical Exam Vitals reviewed. Constitutional: Appearance: Normal appearance. HENT: Head: Normocephalic and atraumatic. Mouth/Throat: Mouth: Mucous membranes are moist. Eyes: Extraocular Movements: Extraocular movements intact. Pupils: [...] range of motion and neck supple. Comments: If he can pain over the shoulder joints and AC joints bilaterally. She also has lower back discomfort that subjectively she feels is worse Neurological: General: No focal deficit present. Mental Status: She is alert. Relevant Results: Office Visit on 02/17/2024 Component Date Value Ref Range Status ??? WBC 02/17/2024 3.1 (L) 4.5 - 12.5 K/??L Final ??? RBC 02/17/2024 3.52 (L) 4.00 - 5.25 M/??L Final ??? Hemoglobin 02/17/2024 11.6 (L) 12.0 - 16.0 GM/DL Final ??? Hematocrit 02/17/2024 36.9 36.0 - 46.0 % Final ??? MCV 02/17/2024 105 (H) 80 - 100 fL Final ??? MCH 02/17/2024 33.0 26.0 - 34.0 pg Final ??? MCHC 02/17/2024 31.4 31.0 - 37.0 GM/DL Final ??? RDW 02/17/2024 12.2 12.0 - 16.8 % Final ??? Platelets 02/17/2024 172 140 - 440 K/CU MM Final ??? MPV 02/17/2024 9.9 7.4 - 10.4 fL Final ??? % Neutros 02/17/2024 43 (L) 45 - 80 % Final ??? % Lymphs 02/17/2024 45 15 - 45 % Final ??? % Monos 02/17/2024 10 0 - 10 % Final ??? % Eos 02/17/2024 2 0 - 5 % Final ??? % Baso 02/17/2024 1 0 - 3 % Final ??? # Neutros 02/17/2024 1.32 (L) 2.00 - 8.80 K/??L Final ??? # Lymphs 02/17/2024 1.37 0.70 - 5.50 K/??L Final ??? # Monos 02/17/2024 0.29 0.00 - 1.70 K/??L Final ??? # Eos 02/17/2024 0.05 0.00 - 0.80 K/??L Final ??? # Baso 02/17/2024 0.02 0.00 - 0.20 K/??L Final ??? Sodium 02/17/2024 140 136 - 146 meq/L Final ??? Potassium 02/17/2024 3.6 3.5 - 5.1 meq/L Final ??? Chloride 02/17/2024 108 102 - 112 meq/L Final ??? CO2 02/17/2024 27 21 - 32 meq/L Final ??? Calcium 02/17/2024 9.9 8.5 - 10.1 mg/dL Final ??? Glucose 02/17/2024 106 74 - 106 mg/dL Final ??? BUN 02/17/2024 16 7 - 22 mg/dL Final ??? Creatinine 02/17/2024 1.09 (H) 0.55 - 1.02 mg/dL Final ??? BUN/Creatinine 02/17/2024 15 8 - 20 Final ??? Albumin 02/17/2024 2.8 (L) 3.4 - 5.0 g/dL Final ??? Alkaline Phosphatase 02/17/2024 49 27 - 136 U/L Final ??? ALT 02/17/2024 11 (L) 12 - 78 U/L Final ??? AST 02/17/2024 15 5 - 37 U/L Final ??? Total Bilirubin 02/17/2024 0.4 0.2 - 1.3 mg/dL Final ??? Protein, Total 02/17/2024 8.4 (H) 6.4 - 8.2 gm/dL Final ??? Anion Gap 02/17/2024 9 9 - 20 Final ??? A/G Ratio 02/17/2024 0.5 (L) 1.1 - 2.5 Final ??? Globulin 02/17/2024 5.6 (H) 1.5 - 4.5 g/dL Final ??? Osmolality Calc 02/17/2024 281.0 Final ? ? eGFR (mL/min/1.73m2) 02/17/2024 57 (L) >=60 mL/min/1.73m2 Final ESTIMATED GFR IS NOT ACCURATE CREATININE CLEARANCE IN PREDICTING GLOMERULAR FILTRATION RATE. ESTIMATED GFR IS NOT APPLICABLE FOR DIALYSIS PATIENTS. No results found. Cancer Staging No matching staging information was found for the patient. Plan: She is slightly anemic today but her creatinine and calcium are still fine. Last month her monoclonal protein was up to 2.2 g and it is steadily worsened. Based on this unguinal discontinue her Darzalex. After consideration unguinal place her on a very low-dose of pomalidomide 1 mg daily. When she was on 2 mg it caused significant cytopenias. Along with this were going to use carfilzomib weekly 3out of 4 weeks along with dexamethasone. Hopefully she will tolerate this well. There is no hair loss with this regimen typically. She will have significant problems with low blood counts. Some risk of nausea. Other associations are with heart and lung disease. Hopefully she will have great benefitfrom this. She is not interested in transplant again. She may be someone that could receive by specific therapy in the future or possible CAR-T treatment. I have answered her questions Signed: Electronically signed by Caleb Pacheco MD 02/17/24 12:56 PM EDT MARILEE Muñoz documented in this encounter Plan of Treatment Scheduled Orders Name Type Priority Associated Diagnoses Orde r Schedule Skeletal Survey Imaging Routine Multiple myeloma without remission (HCC) Expected: 02/18/2024, Expires: 02/16/2025 documented as of this encounter Procedures Procedure Name Priority Date/Time Associated Diagnosis Comments IMMUNOFIX ELECTROPHORESIS BILL(SENDOUT) Routine 02/17/2024 10:03 AM EDT Multiple myeloma without remission (HCC) CBC W/ AUTO DIFF STAT 02/17/2024 10:0 3 AM EDT Multiple myeloma without remission (HCC) PROTEIN ELECTROPHORESIS W RFLX TO RALPH(SENDOUT) Routine 02/17/2024 10:03 AM EDT Multiple myeloma without remission (HCC) KAPPA-LAMBDA QUANT FLC WITH RATIO(SENDOUT) Routine 02/17/2024 10:03 AM EDT Multiple myeloma without remission (HCC) IMMUNOGLOBULIN M(SENDOUT) Routine 02/17/2024 10:03 AM EDT Multiple myeloma without remission (HCC) IMMUNOGLOBULIN G(SENDOUT) Routine 02/17/2024 10:03 AM EDT Multiple myeloma without remission (HCC) IMMUNOGLOBULIN A(SENDOUT) Routine 02/17/2024 10:03 AM EDT Multiple myeloma without remission (HCC) COMPREHENSIVE METABOLIC PANEL STAT 02/17/2024 10:03 AM EDT Multiple myeloma without remission (HCC) documented in this encounter Results * (ABNORMAL) Immunoglobulin A(SENDOUT) (02/17/2024 10:03 AM EDT) Immunoglobulin A 2763(H) 68 - 408 mg/dL 02/21/2024 11:09 AM EDT [employer] Comment: Performed By: [employer] [address] [place] [address] Service Establishment Attendant: Parker Rangel MD, PhD CLIA Number: [id number] Blood Venipuncture / Unknown 02/17/2024 10:03 AM EDT 02/17/2024 10:07 AM EDT us Caleb Pacheco MD LAB BLOOD [place] [address], [facility] [phone] * (ABNORMAL) Immunoglobulin M(SENDOUT) (02/17/2024 10:03 AM EDT) Immunoglobulin M 14(L) 35 - 263 mg/dL 02/21/2024 11:09 AM EDT [employer] Comment: Performed By: [employer] [address] [place] [address] Service Establishment Attendant: Parker Rangel MD, PhD CLIA Number: [id number] Blood Venipuncture / Unknown 02/17/2024 10:03 AM EDT 02/17/2024 10:07 AM EDT us Caleb Pacheco MD LAB BLOOD ORDERABLES Final Res ult Performing Organization Address [facility] de Phone Number [address] [phone] * (ABNORMAL) Immunoglobulin G(SENDOUT) (02/17/2024 10:03 AM EDT) [facility] Immunoglobulin G 166(L) 768 - 1632 mg/dL 02/21/2024 11:09 AM EDT [facility] [employer] Comment: Performed By: [employer] [address] [place] [address] Service Establishment Attendant: Parker Rangel MD, PhD CLIA Number: [id number] Blood Venipuncture / Unknown 02/17/2024 10:03 AM EDT 02/17/2024 10:07 AM EDT Caleb Pacheco MD LAB BLOOD ORDERABLES Final Res ult Performing Organization Address [facility] de Phone Number [facility] [employer] [address] [place] [address] * Immunofix Electrophoresis Bill(SENDOUT) (02/17/2024 10:03 AM EDT) [facility] Immunofix Electrophoresis Bill Billed 02/21/2024 11:07 AM EDT [facility] [employer] Comment: Performed By: [facility] [email or web address] [address] [place] [address] Service Establishment Attendant: Parker Rangel MD, PhD CLIA Number: [id number] Blood Venipuncture / Unknown 02/17/2024 10:03 AM EDT 02/17/2024 10:07 AM EDT Caleb Pacheco MD LAB BLOOD ORDERABLES Final Res ult Performing Organization Address [facility] de Phone Number [address] [phone] * (ABNORMAL) Protein Electrophoresis w Rflx to RALPH(SENDOUT) (02/17/2024 10:03 AM EDT) [facility] Total Protein, Serum 7.8 6.3 - 8.2 g/dL 02/21/2024 11:07 AM EDT [facility] Albumin 3.15(L) 3.75 - 5.01 g/dL 02/21/2024 11:07 AM EDT [facility] Alpha 1 Globulin 0.34 0.19 - 0.46 g/dL 02/21/2024 11:07 AM EDT [facility] Alpha 2 Globulin 0.78 0.48 - 1.05 g/dL 02/21/2024 11:07 AM EDT [facility] Beta Globulin 3.31(H) 0.48 - 1.10 g/dL 02/21/2024 11:07 AM T [facility] Gamma 0.22(L) 0.62 - 1.51 g/dL 02/21/2024 11:07 AM T [facility] Immunofixation Reflex RALPH Done 02/21/2024 11:07 AM T [facility] Monoclonal Protein 2.92(H) <=0.00 g/dL 02/21/2024 11:07 AM T [facility] SPEP/RALPH Interpretation See Note 02/21/2024 11:07 AM T [facility] Comment: Monoclonal spike in the beta region. The quantitation may include complement and/or transferrin components. Measurement of total Immunoglobulin (IgA, IgG, or IgM) can be used for the quantitation of the monoclonal spike instead. Hypogammaglobulinemia. Restricted band of protein migration in the gamma region. RALPH gel pattern shows a dimerizing IgA type lambda monoclonal protein with an additional faint band in lambda. EER Serum Protein Electrophoresis Reflex See Note 02/21/2024 11:07 AM T [facility] Comment: Authorized individuals can access the [facility] Enhanced Report using the following link: [email or web address] Performed By: [employer] [address] [place] [address] Service Establishment Attendant: Parker Rangel MD, PhD CLIA Number: [id number] Blood Venipuncture / Unknown 02/17/2024 10:03 AM EDT 02/17/2024 10:07 AM EDT Caleb Pacheco MD LAB BLOOD ORDERABLES Final Res ult [facility] [employer] [address] [place] [address] * (ABNORMAL) Edroy-Lambda Quant FLC with Ratio(SENDOUT) (02/17/2024 10:03 AM EDT) Edroy Qnt Free Light Chains 3.66 3.30 - 19.40 mg/L 02/19/2024 1:41 AM EDT [employer] Comment: INTERPRETIVE INFORMATION: Edroy Qnt Free Light Chains Undetected antigen excess is a rare event but cannot be excluded. Free light chain results should always be interpreted in conjunction with other clinical and laboratory findings. Lambda Qnt Free Light Chains 104.55(H) 5.71 - 26.30 mg/L 02/19/2024 1:41 AM EDT [employer] Comment: INTERPRETIVE INFORMATION: Lambda Qnt Free Light Chains Undetected antigen excess is a rare event but cannot be excluded. Free light chain results should always be interpreted in conjunction with other clinical and laboratory findings. Edroy/Lambda Free Light Chain Ratio 0.04(L) 0.26 - 1.65 02/19/2024 1:41 AM EDT [employer] Comment: Performed By: [employer] [address] [place] [address] Service Establishment Attendant: Parker Rangel MD, PhD CLIA Number: [id number] Blood Venipuncture / Unknown 02/17/2024 10:03 AM EDT 02/17/2024 10:07 AM EDT Caleb Pacheco MD LAB BLOOD ORDERABLES Final Res ult [employer] [address] [place] [address] * (ABNORMAL) Comprehensive metabolic panel (02/17/2024 10:03 AM EDT) Sodium 140 136 - 146 meq/L 02/17/2024 11:43 AM EDT [facility] Potassium 3.6 3.5 - 5.1 meq/L 02/17/2024 11:43 AM [facility] Chloride 108 102 - 112 meq/L 02/17/2024 11:43 AM [facility] CO2 27 21 - 32 meq/L 02/17/2024 11:43 AM [facility] Calcium 9.9 8.5 - 10.1 mg/dL 02/17/2024 11:43 AM [facility] Glucose 106 74 - 106 mg/dL 02/17/2024 11:43 AM [facility] BUN 16 7 - 22 mg/dL 02/17/2024 11:43 AM [facility] Creatinine 1.09(H) 0.55 - 1.02 mg/dL 02/17/2024 11:43 AM [facility] BUN/Creatinine 15 8 - 20 02/17/2024 11:43 AM [facility] Albumin 2.8(L) 3.4 - 5.0 g/dL 02/17/2024 11:43 AM [facility] Alkaline Phosphatase 49 27 - 136 U/L 02/17/2024 11:43 AM [facility] ALT 11(L) 12 - 78 U/L 02/17/2024 11:43 AM [facility] AST 15 5 - 37 U/L 02/17/2024 11:43 AM [facility] Total Bilirubin 0.4 0.2 - 1.3 mg/dL 02/17/2024 11:43 AM [facility] Protein, Total 8.4(H) 6.4 - 8.2 gm/dL 02/17/2024 11:43 AM [facility] Anion Gap 9 9 - 20 02/17/2024 11:43 AM [facility] A/G Ratio 0.5(L) 1.1 - 2.5 02/17/2024 11:43 AM [facility] Globulin 5.6(H) 1.5 - 4.5 g/dL 02/17/2024 11:43 AM [facility] Osmolality Calc 281.0 11:43 AM [facility] eGFR (mL/min/1.73m2) 57(L) >=60 mL/min/1.7 3m2 02/17/2024 11:43 AM EDT [facility] Comment:ESTIMATED GFR IS NOT ACCURATE CREATININE CLEARANCE IN PREDICTING GLOMERULAR FILTRATION RATE. ESTIMATED GFR IS NOT APPLICABLE FOR DIALYSIS PATIENTS. Blood Venipuncture / Unknown 02/17/2024 10:03 AM EDT 02/17/2024 10:07 AM EDT us Caleb Pacheco MD LAB BLOOD ORDERABLES Final Res ult [facility] [address] [employer] [address] [phone] * (ABNORMAL) CBC with Automated Diff (02/17/2024 10:03 AM EDT) WBC 3.1(L) 4.5 - 12.5 K/??L 02/17/2024 10:22 AM EDT [facility] RBC 3.52(L) 4.00 - 5.25 M/??L 02/17/2024 10:22 AM EDT [facility] Hemoglobin 11.6(L) 12.0 - 16.0 GM/DL 02/17/2024 10:22 AM EDT [facility] Hematocrit 36.9 36.0 - 46.0 % 02/17/2024 10:22 AM EDT [facility] MCV 105(H) 80 - 100 fL 02/17/2024 10:22 AM EDT [facility] MCH 33.0 26.0 - 34.0 pg 02/17/2024 10:22 AM EDT [facility] MCHC 31.4 31.0 - 37.0 GM/DL 02/17/2024 10:22 AM EDT [facility] RDW 12.2 12.0 - 16.8 % 02/17/2024 10:22 AM EDT [facility] Platelets 172 140 - 440 K/CU MM 02/17/2024 10:22 AM EDT [facility] MPV 9.9 7.4 - 10.4 fL 02/17/2024 10:22 AM EDT [facility] % Neutros 43(L) 45 - 80 % 02/17/2024 10:22 AM EDT [facility] % Lymphs 45 15 - 45 % 02/17/2024 10:22 AM EDT [facility] % Monos 10 0 - 10 % 02/17/2024 10:22 AM EDT [facility] % Eos 2 0 - 5 % 02/17/2024 10:22 AM EDT [facility] % Baso 1 0 - 3 % 02/17/2024 10:22 AM EDT [facility] # Neutros 1.32(L) 2.00 - 8.80 K/??L 02/17/2024 10:22 AM EDT [facility] # Lymphs 1.37 0.70 - 5.50 K/??L 02/17/2024 10:22 AM EDT [facility] # Monos 0.29 0.00 - 1.70 K/??L 02/17/2024 10:22 AM EDT [facility] # Eos 0.05 0.00 - 0.80 K/??L 02/17/2024 10:22 AM EDT [facility] # Baso 0.02 0.00 - 0.20 K/??L 02/17/2024 10:22 AM EDT [facility] Blood Venipuncture / Unknown 02/17/2024 10:03 AM EDT 02/17/2024 10:07 AM EDT Narrative [facility] - 02/17/2024 10:22 AM EDT When CBC w/ Auto Diff [...] Final Res ult [facility] [address] [place] [id number], [facility] [phone] documented in this encounter Visit Diagnoses Diagnosis Multiple myeloma without remission (HCC) documented in this encounter Care Teams Weaver Axminster Relationship Specialty Start Date End Date Clifford Newell PA [address] [place] [address] [place] [address] PCP - General Physician Ripsawyer 10/14/23 documented as of this encounter
--- OUTSIDE RECORDS SUMMARY | 2024-08-03 16:59 | XMS_ITS | Encounter Summary ---
Author Organization [employer] Address [address] [place] [address] Care Team Providers Care Felt Cementer Name Role Phone Clifford Newell Primary Care Provider + [phone] Encounter Details Date Type Department Care Team (Latest Contact Info) Description 03/07/2024 Travel Social History Tobacco Use Types Packs/Day [...] Date Kulwant rded Speak language other than Occitan at home Not on file 10/05/2023 Want [...] on filedocumented in this encounter Care Teams Felt Cementer Relationship Specialty Start Date End Date Clifford Newell PA [address] [place] [address] J[place] Ling [phone] PCP - General Physician Counter Help 10/14/23 documented as of this encounter
--- OUTSIDE RECORDS SUMMARY | 2024-08-03 16:59 | XMS_ITS | Encounter Summary ---
Author Organization [employer] Address [address] [place] [address] Care Team Providers Care Barbecue Cook Name Role Phone Clifford Newell Primary Care Provider + [phone] Reason for Visit * Reason Onset Date Comments reschedule infusion appointment 03/20/2024 Encounter Details Date Type Department Care Team (Late st Contact Info) Description 03/20/2024 Telephone [facility] [address] [facility] [address] [place] [address] Caleb Pacheco MD [address] [facility] [address] [place] [address] reschedule infusion appointment Social History Tobacco Use Types Packs/Day [...] Telephone Encounter - Nicki Thurston RN - 03/20/2024 3:33 PM EDT RN reached out to [facility] with desktop publishing associate and she was able to get pt rescheduled. * Telephone Encounter - Nicki Thurston RN - 03/20/2024 2:53 PM EDT RN tried to call pt again but no answer and no voicemail. * Telephone Encounter - Nicki Thurston RN - 03/20/2024 8:52 AM EDT Pt called into RN line stating that she needs to reschedule her infusion appt for today due to transportation issues. RN attempted to call pt but call not going through. documented in this encounter Plan of Treatment Not on file documented as of this encounter Visit Diagnoses Not on filedocumented in this encounter Care Teams Barbecue Cook Relationship Specialty Start Date End Date Clifford Newell PA [address] [place] [address] [place] [address] PCP - General Physician Finish Photographer 10/14/23 documented as of this encounter
--- OUTSIDE RECORDS SUMMARY | 2024-08-03 16:59 | XMS_ITS | Encounter Summary ---
Author Organization [employer] Address [address] [place] [address] Care Team Providers Care Telegraph And Teletype Operator Name Role Phone Clifford Newell Primary Care Provider + [phone] Encounter Details Date Type Department Care Team (Latest Contact Info) Description 03/14/2024 Travel Social History Tobacco Use Types Packs/Day [...] Date Kulwant rded Speak language other than Yoruba at home Not on file 10/05/2023 Want [...] on filedocumented in this encounter Care Teams Telegraph And Teletype Operator Relationship Specialty Start Date End Date Clifford Newell PA [address] [place] [address] [place] Ling [phone] PCP - General Physician Evp 10/14/23 documented as of this encounter
--- OUTSIDE RECORDS SUMMARY | 2024-08-03 16:59 | XMS_ITS | Encounter Summary ---
Author Organization [employer] Address [address] [place] [address] Care Team Providers Care Anesthesia Attending Name Role Phone Clifford Newell Primary Care Provider + [phone] Reason for Visit * Episode Based Medication (Routine) - Closed Specialty Diagnoses / Procedures Referred By Ana Paula anne Referred To Contact Diagnoses Multiple myeloma without remission (HCC) Procedures DC GRANISETRON HCL INJECTION DC INJECTION, CARFILZOMIB, 1 MG Caleb Pacheco MD [address] [place] [address] Phone: tel: fax: [facility] [address] [place] [address] Phone: tel: fax: Referral ID Status Reason Start Date Expiration Date Visits Re quested Visits Authorized [id number] Closed 02/17/2024 02/17/2025 1 193 Encounter Details Date Type Department Care Team (Late st Contact Info) Description 03/14/2024 1:30 PM EDT Infusion [facility] [address] [place] [address] Caleb Pacheco MD [address] [place] [address] Multiple myeloma without remission (HCC) [...] Sign Reading Time Taken Comments Blood Pressure 136/74 03/14/2024 12:59 PM EDT Pulse 73 03/14/2024 12:59 PM EDT Temperature 36.7 ??C (98 ??F) 03/14/2024 12:59 PM EDT Respiratory Rate 18 03/14/2024 12:59 PM EDT Oxygen Saturation 94% 03/14/2024 12:59 PM EDT Inhaled Oxygen Concentration - - Weight - - Height - - Body Mass Index - - documented in this encounter Progress Notes * Alma Valladares RN - 03/14/2024 1:30 PM EDT PT UNABLE TO RECEIVE TREATMENT TODAY ENR[facility] TO LABS PER DR PACHECO. PT RESCHEDULED. DISCHARGED HOME IN STABLE CONDITION. documented in this encounter Plan of Treatment Not on file documented as of this encounter Procedures Procedure Name Priority Date/Time Associated Diagnosis Comments CBC W/ AUTO DIFF STAT 03/14/2024 12:5 8 PM EDT Multiple myeloma without remission (HCC) documented in this encounter Results * (ABNORMAL) CBC with Automated Diff (03/14/2024 12:58 PM EDT) WBC 2.2(L) 4.5 - 12.5 K/??L 03/14/2024 1:31 PM EDT [facility] RBC 2.94(L) 4.00 - 5.25 M/??L 03/14/2024 1:31 PM EDT [facility] Hemoglobin 9.6(L) 12.0 - 16.0 GM/DL 03/14/2024 1:31 PM EDT [facility] Hematocrit 31.1(L) 36.0 - 46.0 % 03/14/2024 1:31 PM EDT [facility] MCV 106(H) 80 - 100 fL 03/14/2024 1:31 PM EDT [facility] MCH 32.7 26.0 - 34.0 pg 03/14/2024 1:31 PM EDT [facility] MCHC 30.9(L) 31.0 - 37.0 GM/DL 03/14/2024 1:31 PM EDT [facility] RDW 12.2 12.0 - 16.8 % 03/14/2024 1:31 PM EDT [facility] Platelets 115(L) 140 - 440 K/CU MM 03/14/2024 1:31 PM EDT [facility] MPV 11.2(H) 7.4 - 10.4 fL 03/14/2024 1:31 PM EDT [facility] % Neutros 44(L) 45 - 80 % 03/14/2024 1:31 PM EDT [facility] % Lymphs 40 15 - 45 % 03/14/2024 1:31 PM EDT [facility] % Monos 12(H) 0 - 10 % 03/14/2024 1:31 PM EDT [facility] % Eos 3 0 - 5 % 03/14/2024 1:31 PM EDT [facility] % Baso 1 0 - 3 % 03/14/2024 1:31 PM EDT [facility] # Neutros 0.98(L) 2.00 - 8.80 K/??L 03/14/2024 1:31 PM EDT [facility] # Lymphs 0.88 0.70 - 5.50 K/??L 03/14/2024 1:31 PM EDT [facility] # Monos 0.27 0.00 - 1.70 K/??L 03/14/2024 1:31 PM EDT [facility] # Eos 0.07 0.00 - 0.80 K/??L 03/14/2024 1:31 PM EDT [facility] # Baso 0.01 0.00 - 0.20 K/??L 03/14/2024 1:31 PM EDT [facility] Blood Venipuncture / Unknown 03/14/2024 12:58 PM EDT 03/14/2024 1:16 PM EDT Narrative [facility] - 03/14/2024 1:31 PM EDT When CBC w/ Auto Diff [...] Final Res ult [facility] [address] [place] [address], [facility] [phone] documented in this encounter Visit Diagnoses Diagnosis Multiple myeloma without remission (HCC)- Primary documented in this encounter Care Teams Anesthesia Attending Relationship Specialty Start Date End Date Clifford Newell PA [address] [place] [address] PCP - General Physician Online Marketing Strategist 10/14/23 documented as of this encounter
--- OUTSIDE RECORDS SUMMARY | 2024-08-03 16:59 | XMS_ITS | Encounter Summary ---
Author Organization [employer] Address [address] [place] [address] Care Team Providers Care Market Manager Name Role Phone Clifford Newell Primary Care Provider + [phone] Reason for Visit * Reason Comments Multiple Myeloma without remission Follow-up Encounter Details Date Type Department Care Team (Late st Contact Info) Description 02/29/2024 11:15 AM EDT Office Visit [facility] [address] [place] [address] [address] [place] [address] Caleb Pacheco MD [address] [place] [address] Multiple myeloma without remission (HCC) [...] Date Kulwant rded Speak language other than Monegasque at home Not on file 10/05/2023 Want [...] Sign Reading Time Taken Comments Blood Pressure 127/76 02/29/2024 11:55 AM EDT Pulse 87 02/29/2024 11:55 AM EDT Temperature 35.6 ??C (96.1 ??F) 02/29/2024 11:55 AM E DT Respiratory Rate 16 02/29/2024 11:55 AM EDT Oxygen Saturation 97% 02/29/2024 11:55 AM EDT Inhaled Oxygen Concentration - - Weight 109 kg (240 lb 6.4 oz) 02/29/2024 11:55 A M EDT Height 172.7 cm (5' 8 ) 02/29/2024 11:55 AM EDT Body Mass Index 36.55 02/29/2024 11:55 AM EDT documented in this encounter Progress Notes * Caleb Pacheco MD - 02/29/2024 11:15 AM EDT Chief Complaint: History of Present Illness: Francy Bailey is a 63 y.o. female who presents today for follow up of multiple myeloma. She has had no new issues. She does have a lot of fatigue. She is had the same bone pain. She has nothad considerable weight loss yet. She is ready to initiate her treatment Past Medical History: Diagnosis Date ??? Asthma [...] Treatment Summary Treatment goal Palliative Plan Name [facility] Multiple Myeloma - daratumumab (Darzalex) IV d1,8,15,22 fb D1,15 fb d1 + pomalidomide(Pomalyst) PO d1-21 every 28 days Status Inactive Start Date 11/03/2022 End Date 01/11/2024 Provider Caleb Pacheco MD Chemotherapy pomalidomide 4 mg Cap, 4 mg, Oral, Daily, 1 of 1 cycle, Start date: --, End date: -- mqranuazbjn-vuhjlbsftkyrd-vnle (DARZALEX FASPRO) 1,800 mg-30,000 unit/15 mL subcutaneous [...] Treatment Summary Treatment goal Palliative Plan Name [facility] Multiple Myeloma - carfilzomib (Kyprolis) 20/56 days 1,8,15 + pomalidomide (Pomalyst)1mg PO days 1-21 + Dexamethasone weekly every 28 days Status Active Start Date 02/29/2024 End Date 01/16/2025 (Planned) Provider Caleb Pacheco MD Chemotherapy carfilzomib 44 mg in dextrose 5% (D5W) 132 mL chemo infusion, 44 mg, Intravenous, Once, 1 of 12 cycles Dose modification: 120 mg (original dose 123.2 mg, Cycle 1, Reason: Other (See Comments)) Administration: 44 mg (02/29/2024) Allergies: Ampicillin, Codeine, Indomethacin, Morphine, and Penicillin [...] Amount: 10 mg 30 tablet 2 ??? [DISCONTINUED] dexAMETHasone (DECADRON) 4 MG tablet TAKE 5 TABLETS BY MOUTH ON THE MORNING OF CHEMOTHERAPY. 30 tablet 3 No current facility-administered medications on file prior to visit. Review of Systems: Review of Systems Constitutional: Positive for fatigue. All other systems reviewed and are negative. Vitals: Vitals: 02/29/24 1155 BP: 127/76 Pulse: 87 Resp: 16 Temp: 96.1 ??F (35.6 ??C) SpO2: 97% Weight: 109 kg (240 lb 6.4 oz) Height: 1.727 m (5' 8 ) Physical [...] motion and neck supple. Comments: Lower back and hip pain as before Neurological: General: No focal deficit present. Mental Status: She is alert. Relevant Results: Office Visit on 02/29/2024 Component Date Value Ref Range Status ??? WBC 02/29/2024 5.2 4.5 - 12.5 K/??L Final ??? RBC 02/29/2024 3.64 (L) 4.00 - 5.25 M/??L Final ??? Hemoglobin 02/29/2024 12.4 12.0 - 16.0 GM/DL Final ??? Hematocrit 02/29/2024 37.5 36.0 - 46.0 % Final ??? MCV 02/29/2024 103 (H) 80 - 100 fL Final ??? MCH 02/29/2024 34.1 (H) 26.0 - 34.0 pg Final ??? MCHC 02/29/2024 33.1 31.0 - 37.0 GM/DL Final ??? RDW 02/29/2024 12.7 12.0 - 16.8 % Final ??? Platelets 02/29/2024 185 140 - 440 K/CU MM Final ??? MPV 02/29/2024 10.5 (H) 7.4 - 10.4 fL Final ??? % Neutros 02/29/2024 61 45 - 80 % Final ??? % Lymphs 02/29/2024 31 15 - 45 % Final ??? % Monos 02/29/2024 7 0 - 10 % Final ??? % Eos 02/29/2024 0 0 - 5 % Final ??? % Baso 02/29/2024 0 0 - 3 % Final ??? # Neutros 02/29/2024 3.17 2.00 - 8.80 K/??L Final ??? # Lymphs 02/29/2024 1.60 0.70 - 5.50 K/??L Final ??? # Monos 02/29/2024 0.38 0.00 - 1.70 K/??L Final ??? # Eos 02/29/2024 0.02 0.00 - 0.80 K/??L Final ??? # Baso 02/29/2024 0.01 0.00 - 0.20 K/??L Final ??? Sodium 02/29/2024 144 136 - 146 meq/L Final ??? Potassium 02/29/2024 3.4 (L) 3.5 - 5.1 meq/L Final ??? Chloride 02/29/2024 108 98 - 108 meq/L Final ??? CO2 02/29/2024 24 22 - 29 meq/L Final ??? Anion Gap 02/29/2024 15 9 - 20 Final ??? BUN 02/29/2024 12 7 - 18 mg/dL Final ??? Creatinine 02/29/2024 1.00 0.60 - 1.10 mg/dL Final ??? BUN/Creatinine 02/29/2024 12 8 - 20 Final ??? Glucose 02/29/2024 103 70 - 105 mg/dL Final ??? Calcium Ionized (mg/dL) 02/29/2024 5.08 4.36 - 5.20 mg/dL Final ??? Protein, Total 02/29/2024 9.3 (H) 6.4 - 8.2 gm/dL Final ??? Albumin 02/29/2024 2.8 (L) 3.4 - 5.0 g/dL Final ??? Total Bilirubin 02/29/2024 0.4 0.2 - 1.3 mg/dL Final ??? Bilirubin, Direct 02/29/2024 0.1 0.0 - 0.2 mg/dL Final ??? Alkaline Phosphatase 02/29/2024 56 27 - 136 U/L Final ??? Globulin 02/29/2024 6.5 (H) 1.5 - 4.5 g/dL Final ??? A/G Ratio 02/29/2024 0.4 (L) 1.1 - 2.5 Final ??? AST 02/29/2024 16 5 - 37 U/L Final [employer] has become aware of sulfasalazine and [...] to administration of the drug. ??? ALT 02/29/2024 12 12 - 78 U/L Final [employer] has become aware of sulfasalazine and [...] occur prior to administration of the drug. Office Visit on 02/17/2024 Component Date Value [...] GFR IS NOT APPLICABLE FOR DIALYSIS PATIENTS. ??? [place] Qnt Free Light Chains 02/17/2024 3.66 3.30 - 19.40 mg/L Final INTERPRETIVE INFORMATION: [place] Qnt Free Light Chains Undetected antigen excess is a rare event but cannot be excluded. Free light chain results should always be interpreted in conjunction with other clinical and laboratory findings. ??? Lambda Qnt Free Light Chains 02/17/2024 104.55 (H) 5.71 - 26.30 mg/L Final INTERPRETIVE INFORMATION: Lambda Qnt Free Light Chains Undetected antigen excess is a rare event but cannot be excluded. Free light chain results should always be interpreted in conjunction with other clinical and laboratory findings. ??? [place]/Lambda Free Light Chain Ratio 02/17/2024 0.04 (L) 0.26 - 1.65 Final Performed By: [email or web address] [address] [place] [address] Senior Java Programmer: Parker Rangel MD, PhD CLIA Number: [id number] ??? Total Protein, Serum 02/17/2024 7.8 6.3 - 8.2 g/dL Final ??? Albumin 02/17/2024 3.15 (L) 3.75 - 5.01 g/dL Final ??? Alpha 1 Globulin 02/17/2024 0.34 0.19 - 0.46 g/dL Final ??? Alpha 2 Globulin 02/17/2024 0.78 0.48 - 1.05 g/dL Final ??? Beta Globulin 02/17/2024 3.31 (H) 0.48 - 1.10 g/dL Final ??? Gamma 02/17/2024 0.22 (L) 0.62 - 1.51 g/dL Final ??? Immunofixation Reflex 02/17/2024 RALPH Done Final ? ? Monoclonal Protein 02/17/2024 2.92 (H) <=0.00 g/dL Final ??? SPEP/RALPH Interpretation 02/17/2024 See Note Final Monoclonal spike in the [...] lambda. ??? EER Serum Protein Electrophoresis * 02/17/2024 See Note Final Authorized individuals can access the [facility] Enhanced Report using the following link: [email or web address] Performed By: [email or web address] [address] [place] [address] Senior Java Programmer: Parker Rangel MD, PhD CLIA Number: [id number] ??? Immunofix Electrophoresis Bill 02/17/2024 Billed Final Performed By: [email or web address] [address] [place] [address] Senior Java Programmer: Parker Rangel MD, PhD CLIA Number: [id number] ??? Immunoglobulin G 02/17/2024 166 (L) 768 - 1632 mg/dL Final Performed By: [email or web address] [address] [place] [address] Senior Java Programmer: Parker Rangel MD, PhD CLIA Number: [id number] ??? Immunoglobulin M 02/17/2024 14 (L) 35 - 263 mg/dL Final Performed By: [email or web address] [address] [place] [address] Senior Java Programmer: Parker Rangel MD, PhD CLIA Number: [id number] ??? Immunoglobulin A 02/17/2024 2763 (H) 68 - 408 mg/dL Final Performed By: [email or web address] [address] [place] [address] Senior Java Programmer: Parker Rangel MD, PhD CLIA Number: [id number] CT lumbar spine wo IV contrast Result Date: 02/25/2024 ACCESSION NUMBER: [id number] DATE: 02/25/2024 19:06 EXAMINATION: CT Spine Lumbar WO PROVIDED INDICATION: Back Pain: pain COMPARISON: CT lumbar spine dated 07/07/2022 TECHNIQUE: CT of the lumbar spine was obtained without contrast in the axial plane followed by sagittal and coronal reformats using 2 mm thin slices. FINDINGS: Numbering: The last well-defined disc space is considered as L5-S1. Based on this numbering, L1 vertebral body has a right-sided hypoplastic rib and the left-sided transverse process. Multiple hypodense lesions are noted throughout the spine with the relatively larger onein L2 and S1 segments. They are in keeping with known history of multiple myeloma. Vertebral body heights are relatively preserved. There is mild retrolisthesis of L5 on S1. Degenerative disc diseaseis noted throughout the lumbar spine, worst at L4-5 and L5-S1 with loss of disc height, vacuum discat L4-5 and sclerotic endplate changes. Facet hypertrophic changes are at multiple levels. Pre and paravertebral soft tissues do not demonstrate any significant abnormality. L1-2: Disc osteophyte complex with mild inferior right neural foraminal narrowing. No canal stenosis. L2-3: Disc osteophyte complex with mild to moderate canal stenosis and mild inferior bilateral neural foraminal narrowing. Mild bilateral facet hypertrophic changes. L3-4: Disc osteophyte complex with bilateral severe ligamentum flavum thickening, severe canal stenosis, moderate bilateral lateral recess stenosis, mild bilateral neural foraminal narrowing. Mild bilateral facet degenerative change. L4-5: Moderate disc large disc osteophyte complex with moderate to severe bilateral facet hypertrophic change, severe bilateral ligamentum flavum thickening, severe canal stenosis, mild to moderate bilateral lateral recess s tenosis and moderate to severe bilateral neural foraminal narrowing. Relatively worse level. L5-S1:Disc osteophyte complex with moderate right and mild left facet hypertrophic change, severe right and mild to moderate left neural foraminal narrowing, mild to moderate right lateral recess stenosis.No canal stenosis. SI joints: Mild to moderate bilateral degenerative change. IMPRESSION: 1. Multiple bony lesions are scattered throughout the imaged spine, in keeping with the given history of multiple myeloma. No pathological fracture. 2. Multilevel degenerative changes as described above with varying degrees of canal stenosis or neural foraminal narrowing. Dictated by: Tesha Carvajal M.D. Signed by Tesha Carvajal M.D. on 02/25/2024 19:30 ##### Final ##### Dictated by: ?TESHA CARVAJAL MD-RAD Dictated DT/TM: 02/25/2024 7:30 pm Interpreted and electronically signed by: ??TESHA CARVAJAL MD-RAD Signed DT/TM: ??02/25/2024 7:30 pm Cancer Staging No matching staging information was found for the patient. Plan: Her bone survey has not been completed yet. She has not started her pomalidomide yet but has received it. Today she received carfilzomib at 44 mg over 30 minutes premedicated with Kytril 1 Benadryl 25 Pepcid 20 and dexamethasone 20 mg IV. She will start the pomalidomide. She will return to see me in a week. I have not made other recommendations. We talked about side effects. I have not madeany other recommendations as noted. I did show her her monoclonal protein was up to 2.9 g but she still has a normal calcium and creatinine along with hemoglobin at this time. Signed: Electronically signed by Caleb Pacheco MD 02/29/24 4:40 PM EDT MARILEE Muñoz documented in this encounter Plan of Treatment Not on file documented as of this encounter Procedures Procedure Name Priority Date/Time Associated Diagnosis Comments CBC W/ AUTO DIFF STAT 02/29/2024 11:4 7 AM EDT Multiple myeloma without remission (HCC) ONOCOLOGY CHEMISTRY PANEL Routine 02/29/2024 11:47 AM EDT Multiple myeloma without remission (HCC) HEPATIC FUNCTION PANEL Routine 02/29/2024 11:47 AM EDT Multiple myeloma without remission (HCC) documented in this encounter Results * (ABNORMAL) Hepatic function panel (02/29/2024 11:47 AM EDT) Protein, Total 9.3(H) 6.4 - 8.2 gm/dL 02/29/2024 12:58 PM [facility] Albumin 2.8(L) 3.4 - 5.0 g/dL 02/29/2024 12:58 PM [facility] Total Bilirubin 0.4 0.2 - 1.3 mg/dL 02/29/2024 12:58 PM [facility] Bilirubin, Direct 0.1 0.0 - 0.2 mg/dL 02/29/2024 12:58 PM [facility] Alkaline Phosphatase 56 27 - 136 U/L 02/29/2024 12:58 PM [facility] Globulin 6.5(H) 1.5 - 4.5 g/dL 02/29/2024 12:58 PM [facility] A/G Ratio 0.4(L) 1.1 - 2.5 02/29/2024 12:58 PM [facility] AST 16 5 - 37 U/L 02/29/2024 12:58 PM [facility] Comment:[employer] has become aware of sulfasalazine and [...] 12 - 78 U/L 02/29/2024 12:58 PM [facility] Comment:[employer] has become aware of sulfasalazine and [...] 11:47 AM EDT 02/29/2024 12:02 PM EDT Caleb Pacheco MD LAB BLOOD ORDERABLES Final Res ult [facility] [address] [phone] * (ABNORMAL) Oncology Basic Metabolic Panel (02/29/2024 11:47 AM EDT) Pathologist [facility] Sodium 144 136 - 146 meq/L 02/29/2024 [...] 11:47 AM EDT 02/29/2024 12:02 PM EDT Caleb Pacheco MD LAB BLOOD ORDERABLES Final Res ult [facility] [address] [phone] * (ABNORMAL) CBC with Automated Diff (02/29/2024 11:47 AM EDT) Pathologist [facility] WBC 5.2 4.5 - 12.5 K/??L 02/29/2024 [...] [facility] [address] [facility] [place] [address], [facility] [phone] documented in this encounter Visit Diagnoses Diagnosis Multiple myeloma without remission (HCC) documented in this encounter Care Teams Market Manager Relationship Specialty Start Date End Date Clifford Newell PA [address] [place] [address] [place] [address] PCP - General Physician Book Or Script Editor 10/14/23 documented as of this encounter
--- OUTSIDE RECORDS SUMMARY | 2024-08-03 16:59 | XMS_ITS | Encounter Summary ---
Author Organization [employer] Address [address] [place] [address] Care Team Providers Care Call Center Trainer Name Role Phone Clifford Newell Primary Care Provider + [phone] Reason for Visit * Reason Comments Follow-up Multiple Myeloma Encounter Details Date Type Department Care Team (Late st Contact Info) Description 03/07/2024 11:15 AM EDT Office Visit [place] [facility] - [facility] [address] [place] [address] [address] [place] [address] Caleb Pacheco MD [address] [facility] [address] [place] [address] Multiple myeloma without remission (HCC) [...] Date Kulwant rded Speak language other than Greenlandic at home Not on file 10/05/2023 Want [...] Sign Reading Time Taken Comments Blood Pressure 154/84 03/07/2024 12:09 PM EDT Pulse 73 03/07/2024 12:09 PM EDT Temperature 36.6 ??C (97.9 ??F) 03/07/2024 1 2:09 PM EDT Respiratory Rate 16 03/07/2024 12:0 9 PM EDT Oxygen Saturation 98% 03/07/2024 12: 09 PM EDT Inhaled Oxygen Concentration - - Weight 106.9 kg (235 lb 9.6 oz) 024 12:09 PM EDT Height 172.7 cm (5' 8 ) 03/07/2024 12:0 9 PM EDT Body Mass Index 35.82 03/07/2024 12:09 PM EDT documented in this encounter Progress Notes * Caleb Pacheco MD - 03/07/2024 11:15 AM EDT Chief Complaint: History of Present Illness: Francy Bailey is a 63 y.o. female who presents today for follow up of multiple myeloma. She started carfilzomib pomalidomide and dexamethasone 1 week ago. She had no nausea or vomiting. Shehas had some fatigue. She denies that her bone pain is any worse. She is without other additional concerns or problems today. Past Medical History: Diagnosis Date ??? [...] Summary Treatment goal Palliative Plan Name [facility] Multiple Myeloma - daratumumab (Darzalex) IV d1,8,15,22 fb D1,15 fb d1 + pomalidomide(Pomalyst) PO d1-21 every 28 days Status Inactive Start Date 11/03/2022 End Date 01/11/2024 Provider Caleb Pacheco MD Chemotherapy pomalidomide 4 mg Cap, 4 mg, Oral, Daily, 1 of 1 cycle, Start date: --, End date: -- pxvquagcztj-flzexzmsoguub-ludw (DARZALEX FASPRO) 1,800 mg-30,000 unit/15 mL subcutaneous [...] Summary Treatment goal Palliative Plan Name [facility] Multiple Myeloma - carfilzomib (Kyprolis) [...] Daily Amount: 10 mg 30 tablet 2 No current facility-administered medications on file prior to visit. Review of Systems: Review of Systems All other systems reviewed and are negative. Vitals: Vitals: 03/07/24 1209 BP: (!) 154/84 Pulse: 73 Resp: 16 Temp: 97.9 ??F (36.6 ??C) SpO2: 98% Weight: 106.9 kg (235 lb 9.6 oz) Height: 1.727 m (5' 8 ) [...] is alert. Relevant Results: Office Visit on 03/07/2024 Component Date Value Ref Range Status ??? Sodium 03/07/2024 143 136 - 146 meq/L Final ??? Potassium 03/07/2024 3.4 (L) 3.5 - 5.1 meq/L Final ??? Chloride 03/07/2024 106 98 - 108 meq/L Final ??? CO2 03/07/2024 25 22 - 29 meq/L Final ??? Anion Gap 03/07/2024 15 9 - 20 Final ??? BUN 03/07/2024 9 7 - 18 mg/dL Final ??? Creatinine 03/07/2024 1.20 (H) 0.60 - 1.10 mg/dL Final ??? BUN/Creatinine 03/07/2024 8 8 - 20 Final ??? Glucose 03/07/2024 87 70 - 105 mg/dL Final ??? Calcium Ionized (mg/dL) 03/07/2024 5.06 4.36 - 5.20 mg/dL Final ??? WBC 03/07/2024 4.8 4.5 - 12.5 K/??L Final ??? RBC 03/07/2024 3.42 (L) 4.00 - 5.25 M/??L Final ??? Hemoglobin 03/07/2024 11.2 (L) 12.0 - 16.0 GM/DL Final ??? Hematocrit 03/07/2024 36.3 36.0 - 46.0 % Final ??? MCV 03/07/2024 106 (H) 80 - 100 fL Final ??? MCH 03/07/2024 32.7 26.0 - 34.0 pg Final ??? MCHC 03/07/2024 30.9 (L) 31.0 - 37.0 GM/DL Final ??? RDW 03/07/2024 12.5 12.0 - 16.8 % Final ??? Platelets 03/07/2024 181 140 - 440 K/CU MM Final ??? MPV 03/07/2024 10.7 (H) 7.4 - 10.4 fL Final ??? % Neutros 03/07/2024 64 45 - 80 % Final ??? % Lymphs 03/07/2024 25 15 - 45 % Final ??? % Monos 03/07/2024 8 0 - 10 % Final ??? % Eos 03/07/2024 2 0 - 5 % Final ??? % Baso 03/07/2024 0 0 - 3 % Final ??? # Neutros 03/07/2024 3.12 2.00 - 8.80 K/??L Final ??? # Lymphs 03/07/2024 1.21 0.70 - 5.50 K/??L Final ??? # Monos 03/07/2024 0.40 0.00 - 1.70 K/??L Final ??? # Eos 03/07/2024 0.10 0.00 - 0.80 K/??L Final ??? # Baso 03/07/2024 0.01 0.00 - 0.20 K/??L Final Office Visit on 02/29/2024 Component Date Value [...] 02/29/2024 16 5 - 37 U/L Final [facility] has become aware of sulfasalazine and sulfapyridine [...] 02/29/2024 12 12 - 78 U/L Final [facility] has become aware of sulfasalazine and sulfapyridine [...] IS NOT APPLICABLE FOR DIALYSIS PATIENTS. ??? [place] Qnt Free Light Chains 02/17/2024 3.66 3.30 - 19.40 mg/L Final INTERPRETIVE INFORMATION: [place] Qnt Free Light Chains Undetected antigen excess [...] with other clinical and laboratory findings. ??? [place]/Lambda Free Light Chain Ratio 02/17/2024 0.04 (L) 0.26 - 1.65 Final Performed By: [facility] [address] [place] [address] Wetland Scientist: Parker Rangel MD, PhD CLIA Number: [id number] ??? Total Protein, Serum 02/17/2024 7.8 6.3 [...] Note Final Authorized individuals can access the [facility] Enhanced Report using the following link: [email or web address] Performed By: [facility] [address] [place], [place] [id number] Wetland Scientist: Parker Rangel MD, PhD CLIA Number: [id number] ??? Immunofix Electrophoresis Bill 02/17/2024 Billed Final Performed By: [facility] [address] [place] [address] Wetland Scientist: Parker Rangel MD, PhD CLIA Number: [id number] ??? Immunoglobulin G 02/17/2024 166 (L) 768 - 1632 mg/dL Final Performed By: [facility] [address] [place] [address] Wetland Scientist: Parker Rangel MD, PhD CLIA Number: [id number] ??? Immunoglobulin M 02/17/2024 14 (L) 35 - 263 mg/dL Final Performed By: [facility] [address] [place] [address] Wetland Scientist: Parker Rangel MD, PhD CLIA Number: [id number] ??? Immunoglobulin A 02/17/2024 2763 (H) 68 - 408 mg/dL Final Performed By: [facility] [address] [place] [address] Wetland Scientist: Parker Rangel MD, PhD CLIA Number: [id number] CT lumbar spine wo IV contrast Result Date: 02/25/2024 ACCESSION NUMBER: [id number] DATE: 02/25/2024 19:06 EXAMINATION: CT Spine Lumbar [...] information was found for the patient. Plan: Blood counts have been stable and so she will receive the carfilzomib 20 mg today over about 30 minutes. She is premedicate with dexamethasone 20 Benadryl 25 Pepcid 20 and Kytril 1 IV she will continue on the pomalidomide a milligram a day. She did have problems with significant cytopenias onher last treatment and we will have to watch that carefully she will be back next week for her nextdose and then she will be off March 21 and I will see her on the . Will recheck her blood test at that time. I have answered her questions Signed: Electronically signed by Caleb Pacheco MD 03/07/24 12:49 PM EDT MARILEE Muñoz documented in this encounter Plan of Treatment Not on file documented as of this encounter Procedures Procedure Name Priority Date/Time Associated Diagnosis Comments IMMUNOFIX ELECTROPHORESIS BILL(SENDOUT) Routine 03/07/2024 12:05 PM EDT Multiple myeloma without remission (HCC) CBC W/ AUTO DIFF STAT 03/07/2024 12:0 5 PM EDT Multiple myeloma without remission (HCC) ONOCOLOGY CHEMISTRY PANEL Routine 03/07/2024 12:05 PM EDT Multiple myeloma without remission (HCC) PROTEIN ELECTROPHORESIS W RFLX TO RALPH(SENDOUT) Routine 03/07/2024 12:05 PM EDT Multiple myeloma without remission (HCC) KAPPA-LAMBDA QUANT FLC WITH RATIO(SENDOUT) Routine 03/07/2024 12:05 PM EDT Multiple myeloma without remission (HCC) IMMUNOGLOBULIN M(SENDOUT) Routine 03/07/2024 12:05 PM EDT Multiple myeloma without remission (HCC) IMMUNOGLOBULIN G(SENDOUT) Routine 03/07/2024 12:05 PM EDT Multiple myeloma without remission (HCC) IMMUNOGLOBULIN A(SENDOUT) Routine 03/07/2024 12:05 PM EDT Multiple myeloma without remission (HCC) documented in this encounter Results * Immunofix Electrophoresis Bill(SENDOUT) (03/07/2024 12:05 PM EDT) Immunofix Electrophoresis Bill Billed 03/11/2024 9:10 PM EDT [facility] Comment: Performed By: [facility] [address] [place] [id number] Wetland Scientist: Parker Rangel MD, PhD CLIA Number: [id number] Blood Venipuncture / Unknown 03/07/2024 12:05 PM EDT 03/07/2024 12:12 PM EDT us Caleb Pacheco MD LAB BLOOD ORDERABLES Final Res ult Performing Organization Address [facility] de Phone Number [address] [phone] * (ABNORMAL) Immunoglobulin A(SENDOUT) (03/07/2024 12:05 PM EDT) Immunoglobulin A 3239(H) 68 - 408 mg/dL 03/11/2024 8:[address] [facility] [employer] Comment: Performed By: [facility] [address] [place] [address] Wetland Scientist: Parker Rangel MD, PhD CLIA Number: [id number] Blood Venipuncture / Unknown 03/07/2024 12:05 PM EDT 03/07/2024 12:12 PM EDT Caleb Pacheco MD LAB BLOOD ORDERABLES Final Res ult Performing Organization Address [facility] de Phone Number [address] [phone] * (ABNORMAL) Immunoglobulin M(SENDOUT) (03/07/2024 12:05 PM EDT) Pathologist [facility] Immunoglobulin M 18(L) 35 - 263 mg/dL 03/11/2024 8:[address] [facility] [employer] Comment: Performed By: [facility] [employer] [address] [place] [address] Wetland Scientist: Parker Rangel MD, PhD CLIA Number: [id number] Blood Venipuncture / Unknown 03/07/2024 12:05 PM EDT 03/07/2024 12:12 PM EDT Caleb Pacheco MD LAB BLOOD ORDERABLES Final Res ult Performing Organization Address [facility] de Phone Number [address] [phone] * (ABNORMAL) Immunoglobulin G(SENDOUT) (03/07/2024 12:05 PM EDT) Immunoglobulin G 158(L) 768 - 1632 mg/dL 03/11/2024 8:54 PM EDT [facility] Comment: Performed By: [facility] [address] [place] [address] Wetland Scientist: Parker Rangel MD, PhD CLIA Number: [id number] Blood Venipuncture / Unknown 03/07/2024 12:05 PM EDT 03/07/2024 12:12 PM EDT us Caleb Pacheco MD LAB BLOOD ORDERABLES Final Res ult [facility] [address] [place] [address], [facility] [phone] * (ABNORMAL) CBC with Automated Diff (03/07/2024 12:05 PM EDT) WBC 4.8 4.5 - 12.5 K/??L 03/07/2024 12:16 PM EDT [facility] RBC 3.42(L) 4.00 - 5.25 M/??L 03/07/2024 12:16 PM EDT [facility] Hemoglobin 11.2(L) 12.0 - 16.0 GM/DL 03/07/2024 12:16 PM EDT [facility] Hematocrit 36.3 36.0 - 46.0 % 03/07/2024 12:16 PM EDT [facility] MCV 106(H) 80 - 100 fL 03/07/2024 12:16 PM EDT [facility] MCH 32.7 26.0 - 34.0 pg 03/07/2024 12:16 PM EDT [facility] MCHC 30.9(L) 31.0 - 37.0 GM/DL 03/07/2024 12:16 PM EDT [facility] RDW 12.5 12.0 - 16.8 % 03/07/2024 12:16 PM EDT [facility] Platelets 181 140 - 440 K/CU MM 03/07/2024 12:16 PM EDT [facility] MPV 10.7(H) 7.4 - 10.4 fL 03/07/2024 12:16 PM EDT [facility] % Neutros 64 45 - 80 % 03/07/2024 12:16 PM EDT [facility] % Lymphs 25 15 - 45 % 03/07/2024 12:16 PM EDT [facility] % Monos 8 0 - 10 % 03/07/2024 12:16 PM EDT [facility] % Eos 2 0 - 5 % 03/07/2024 12:16 PM EDT [facility] % Baso 0 0 - 3 % 03/07/2024 12:16 PM EDT [facility] # Neutros 3.12 2.00 - 8.80 K/??L 03/07/2024 12:16 PM EDT [facility] # Lymphs 1.21 0.70 - 5.50 K/??L 03/07/2024 12:16 PM EDT [facility] # Monos 0.40 0.00 - 1.70 K/??L 03/07/2024 12:16 PM EDT [facility] # Eos 0.10 0.00 - 0.80 K/??L 03/07/2024 12:16 PM EDT [facility] # Baso 0.01 0.00 - 0.20 K/??L 03/07/2024 12:16 PM EDT [facility] Blood Venipuncture / Unknown 03/07/2024 12:05 PM EDT 03/07/2024 12:12 PM EDT Narrative [facility] - 03/07/2024 12:16 PM EDT When CBC w/ Auto Diff [...] ult [facility] [address] [phone] * (ABNORMAL) Protein Electrophoresis w Rflx to RALPH(SENDOUT) (03/07/2024 12:05 PM EDT) Total Protein, Serum 8.5(H) 6.3 - 8.2 g/dL 03/11/2024 9:10 PM EDT [facility] Albumin 2.98(L) 3.75 - 5.01 g/dL 03/11/2024 9:[address] [facility] Alpha 1 Globulin 0.45 0.19 - 0.46 g/dL 03/11/2024 9:10 PM EDT [facility] Alpha 2 Globulin 0.94 0.48 - 1.05 g/dL 03/11/2024 9:10 PM EDT [facility] Beta Globulin 3.94(H) 0.48 - 1.10 g/dL 03/11/2024 9:[address] [facility] Gamma 0.19(L) 0.62 - 1.51 g/dL 03/11/2024 9:10 PM EDT [facility] Immunofixation Reflex RALPH Done 03/11/2024 9:10 PM EDT [facility] Monoclonal Protein 3.47(H) <=0.00 g/dL 03/11/2024 9:10 PM EDT [facility] SPEP/RALPH Interpretation See Note 03/11/2024 9:[address] [facility] Comment: Monoclonal spike in the beta region. The quantitation may include complement and/or transferrin components. Measurement of total Immunoglobulin (IgA, IgG, or IgM) can be used for the quantitation of the monoclonal spike instead. Hypogammaglobulinemia. RALPH gel pattern shows an IgA type lambda monoclonal protein with an additional faint band in lambda. EER Serum Protein Electrophoresis Reflex See Note 03/11/2024 9:10 PM EDT [facility] Comment: Authorized individuals can access the [facility] Enhanced Report using the following link: [email or web address] Performed By: [facility] [address] [place] [address] Wetland Scientist: Parker Rangel MD, PhD CLIA Number: [id number] Blood Venipuncture / Unknown 03/07/2024 12:05 PM EDT 03/07/2024 12:12 PM EDT Caleb Pacheco MD LAB BLOOD ORDERABLES Final Res ult [facility] [address] [phone] * (ABNORMAL) [place]-Lambda Quant FLC with Ratio(SENDOUT) (03/07/2024 12:05 PM EDT) [place] Qnt Free Light Chains 3.04(L) 3.30 - 19.40 mg/L 03/09/2024 9:25 PM EDT [email or web address] Comment: INTERPRETIVE INFORMATION: [place] Qnt Free Light Chains Undetected antigen excess is a rare event but cannot be excluded. Free light chain results should always be interpreted in conjunction with other clinical and laboratory findings. Lambda Qnt Free Light Chains 83.76(H) 5.71 - 26.30 mg/L 03/09/2024 9:[address] [facility] [employer] Comment: INTERPRETIVE INFORMATION: Lambda Qnt Free Light Chains Undetected antigen excess is a rare event but cannot be excluded. Free light chain results should always be interpreted in conjunction with other clinical and laboratory findings. [place]/Lambda Free Light Chain Ratio 0.04(L) 0.26 - 1.65 03/09/2024 9:[address] [facility] [employer] Comment: Performed By: [facility] [address] [place] [address] Wetland Scientist: Parker Rangel MD, PhD CLIA Number: [id number] Blood Venipuncture / Unknown 03/07/2024 12:05 PM EDT 03/07/2024 12:12 PM EDT Caleb Pacheco MD LAB BLOOD ORDERABLES Final Res ult [facility] [address] [phone] * (ABNORMAL) Oncology Chemistry Panel (03/07/2024 12:05 PM EDT) Sodium 143 136 - 146 meq/L 03/07/2024 12:28 PM EDT [facility] Potassium 3.4(L) 3.5 - 5.1 meq/L 03/07/2024 12:28 PM EDT [facility] Chloride 106 98 - 108 meq/L 03/07/2024 12:28 PM EDT [facility] CO2 25 22 - 29 meq/L 03/07/2024 12:28 PM EDT [facility] Anion Gap 15 9 - 20 03/07/2024 12:28 PM EDT [facility] BUN 9 7 - 18 mg/dL 03/07/2024 12:28 PM EDT [facility] Creatinine 1.20(H) 0.60 - 1.10 mg/dL 03/07/2024 12:28 PM EDT [facility] BUN/Creatinine 8 8 - 20 03/07/2024 12:28 PM EDT [facility] Glucose 87 70 - 105 mg/dL 03/07/2024 12:28 PM EDT [facility] Calcium Ionized (mg/dL) 5.06 4.36 - 5.20 mg/dL 03/07/2024 12:28 PM EDT [facility] Blood Venipuncture / Unknown 03/07/2024 12:05 PM EDT 03/07/2024 12:12 PM EDT us Caleb Pacheco MD LAB BLOOD ORDERABLES Final Res ult [facility] [address] [phone] documented in this encounter Visit Diagnoses Diagnosis Multiple myeloma without remission (HCC) documented in this encounter Care Teams Call Center Trainer Relationship Specialty Start Date End Date Clifford Newell PA [address] [place] [address] [place] [address] PCP - General Physician Pc Tech 10/14/23 documented as of this encounter
--- OUTSIDE RECORDS SUMMARY | 2024-08-03 16:59 | XMS_ITS | Encounter Summary ---
Author Organization [employer] Address [address] [place] [address] Care Team Providers Care Computer Support Analyst Name Role Phone Clifford Newell Primary Care Provider + [phone] Encounter Details Date Type Department Care Team (Late st Contact Info) Description 03/21/2024 Orders Only [place] [facility] - [facility] [address] [place] [address] Caleb Pacheco MD [address] [facility] [address] [place] [address] Social History Tobacco Use Types [...] Date Kulwant rded Speak language other than Kazakh at home Not on file 10/05/2023 Want [...] on filedocumented in this encounter Care Teams Computer Support Analyst Relationship Specialty Start Date End Date Clifford Newell PA [address] [place] [address] Dr [place], [place] [address] PCP - General Physician Adult Manager 10/14/23 documented as of this encounter
--- OUTSIDE RECORDS SUMMARY | 2024-08-03 16:59 | XMS_ITS | Encounter Summary ---
Author Organization [facility] Address [address] [place] [address] Care Team Providers Care Machine Room Engineer Name Role Phone Clifford Newell Primary Care Provider + [phone] Reason for Visit * Reason Onset Date Comments Mouth Lesions 03/02/2024 Encounter Details Date Type Department Care Team (Late st Contact Info) Description 03/02/2024 Telephone [place] [facility] - [facility] [address] [facility] [address] [place] [address] Caleb Pacheco MD [address] [facility] [address] [place] [address] Mouth Lesions Social History Tobacco Use Types Packs/Day Years [...] Date Kulwant rded Speak language other than Tunisian at home Not on file 10/05/2023 Want [...] Telephone Encounter - Nicki Thurston RN - 03/02/2024 12:11 PM EDT See message below from Dr Pacheco: I can send in zovirax topical but it can be expensive LM notifying pt. * Telephone Encounter - Nicki Thurston RN - 03/02/2024 12:06 PM EDT Pt called into RN line stating that she saw SP earlier this week and forgot to ask for medication for her cold sore. She has developed a cold sore and it's painful so she would like a medication called into [facility]. Message sent to Dr Pacheco. documented in this encounter Plan of Treatment Not on file documented as of this encounter Visit Diagnoses Not on filedocumented in this encounter Care Teams Machine Room Engineer Relationship Specialty Start Date End Date Clifford Newell PA [address] [place] [address] PCP - General Physician Print Inspector 10/14/23 documented as of this encounter
--- OUTSIDE RECORDS SUMMARY | 2024-08-03 16:59 | XMS_ITS | Encounter Summary ---
Author Organization [employer] Address [address] [place] [address] Care Team Providers Care Retirement Administrator Name Role Phone Clifford Newell Primary Care Provider + [phone] Reason for Visit * Episode Based Medication (Routine) - Closed Specialty Diagnoses / Procedures Referred By Ana Paula anne Referred To Contact Diagnoses Multiple myeloma without remission (HCC) Procedures VT GRANISETRON HCL INJECTION VT INJECTION, CARFILZOMIB, 1 MG Caleb Pacheco MD [address] [place] [address] Phone: tel: fax: [facility] [address] [place] [address] Phone: tel: fax: Referral ID Status Reason Start Date Expiration Date Visits Re quested Visits Authorized [id number] Closed 02/17/2024 02/17/2025 1 193 Encounter Details Date Type Department Care Team (Late st Contact Info) Description 03/21/2024 1:00 PM EDT Infusion [facility] [address] [place] [address] Caleb Pacheco MD [address] [place] [address] Multiple myeloma without remission (HCC) [...] Sign Reading Time Taken Comments Blood Pressure 119/56 03/21/2024 3:00 PM EDT Pulse 69 03/21/2024 3:00 PM EDT Temperature 37 ??C (98.6 ??F) 03/21/2024 3:00 PM EDT Respiratory Rate 16 03/21/2024 3:00 PM EDT Oxygen Saturation 98% 03/21/2024 3:00 PM EDT Inhaled Oxygen Concentration - - Weight - - Height - - Body Mass Index - - documented in this encounter Progress Notes * Lyudmila Lopez RN - 03/21/2024 1:00 PM EDT Removed invasive line once infusions completed. No problems with infiltration; hemostasis easily achieved. DC home stable condition with family to transport; tolerated procedure well, denies issues or complaints at this time. documented in this encounter Plan of Treatment Not on file documented as of this encounter Procedures Procedure Name Priority Date/Time Associated Diagnosis Comments CBC W/ AUTO DIFF STAT 03/21/2024 11:4 0 AM EDT Multiple myeloma without remission (HCC) ONOCOLOGY CHEMISTRY PANEL Routine 03/21/2024 11:40 AM EDT Multiple myeloma without remission (HCC) HEPATIC FUNCTION PANEL Routine 03/21/2024 11:40 AM EDT Multiple myeloma without remission (HCC) documented in this encounter Results * (ABNORMAL) CBC with Automated Diff (03/21/2024 [...] ult [facility] [address] [phone] * Oncology Basic Metabolic Panel (03/21/2024 11:40 [...] Res ult [facility] [address] [place] [address], [facility] [phone] * (ABNORMAL) Hepatic function panel (03/21/2024 11:40 AM EDT) Protein, Total 8.1 6.4 - 8.2 gm/dL 03/21/2024 1:29 PM EDT [facility] Albumin 2.3(L) 3.4 - 5.0 g/dL 03/21/2024 1:29 PM EDT [facility] Total Bilirubin 0.3 0.2 - 1.3 mg/dL 03/21/2024 1:29 PM [facility] Bilirubin, Direct 0.1 0.0 - 0.2 mg/dL 03/21/2024 1:29 PM [facility] Alkaline Phosphatase 58 27 - 136 U/L 03/21/2024 1:29 PM [facility] Globulin 5.8(H) 1.5 - 4.5 g/dL 03/21/2024 1:29 PM [facility] A/G Ratio 0.4(L) 1.1 - 2.5 03/21/2024 1:29 PM T [facility] AST 13 5 - 37 U/L 03/21/2024 1:29 PM T [facility] Comment:[employer] has become aware of sulfasalazine and [...] 12 - 78 U/L 03/21/2024 1:29 PM [facility] Comment:[employer] has become aware of sulfasalazine and [...] MD LAB BLOOD ORDERABLES Final Res ult [facility] [address] [phone] documented in this encounter Visit Diagnoses Diagnosis Multiple myeloma without remission (HCC)- Primary documented in this encounter Administered Medications Inactive Administered Medications - up to 3 most recent administrations Medication Order MAR Action Action Date Dose Rate Site carfilzomib 120 mg in dextrose 5% (D5W) 170 mL chemo infusion 120 mg Once, intravenous, Administer over 30 Minutes, On Wed03/21/24 at 1330, For 1 dose, Chemo IV Set #: [id number] BSA = 2.2m2 (Max BSA for regimen) Reconstitute 60mg vial with 29mL SWFI Carfilzomib = 60mL Caution: Recommend wearing double gloves and protective gown during administration. Employees who are , trying to become , or should not handle this medication. Dispose of trace chemotherapy (including packaging) in the YELLOW waste bin.Indications:Multiple myeloma without remission (HCC) IVPB Started 03/21/2024 1:15 PM EDT 120 mg 340 mL/hr dexamethasone (DECADRON) 20 mg in sodium chloride 0.9% (NS) 50 mL IVPB 20 mg Once, intravenous, Administer over 5 Minutes, On Wed03/21/24 at 1300, For 1 dose, Protect from Light.Indications:Multiple myeloma without remission (HCC) IVPB Started 03/21/2024 12:41 PM EDT 20 mg 756 mL/hr dextrose 5% (D5W) infusion 500 mL Once, intravenous, at 100 mL/hr, On Wed03/21/24 at 1300, For 1 dose, Infuse at 100 ml/hr for the duration of treatment. May increase or decrease rate as needed.Indications:Multiple myeloma without remission (HCC) New Bag 03/21/2024 12:40 PM EDT 500 mLs 100 mL/hr diphenhydrAMINE (BENADRYL) injection 25 mg 25 mg Once, intravenous, On Wed03/21/24 at 1300, For 1 doseIndications:Multiple myeloma without remission (HCC) Given 03/21/2024 12:40 PM EDT 25 mg famotidine (PF) injection 20 mg 20 mg Once, intravenous, On Wed03/21/24 at 1300, For 1 dose, Pharmacist to renally dose if CrCl is less than 50 mL/min or on CRRT.Indications:Multiple myeloma without remission (HCC) Given 03/21/2024 12:39 PM EDT 20 mg granisetron (KYTRIL) injection 1 mg 1 mg Once, intravenous, On Wed03/21/24 at 1300, For 1 doseIndications:Multiple myeloma without remission (HCC) Given 03/21/2024 12:41 PM EDT 1 mg sodium chloride 0.9% (NS) flush 10 mL 10 mL As needed, intravenous, line care, Starting on Wed03/21/24 at 1239, Per [facility] Policy.Indications:Multiple myeloma without remission (HCC) Given 03/21/2024 12:39 PM EDT 10 mLs documented in this encounter Care Teams Retirement Administrator Relationship Specialty Start Date End Date Clifford Newell PA [address] [place] [address] [place] [address] PCP - General Physician Cognos Bi Developer 10/14/23 documented as of this encounter
--- OUTSIDE RECORDS SUMMARY | 2024-08-03 16:59 | XMS_ITS | Encounter Summary ---
Author Organization [employer] Address [address] [place] [address] Care Team Providers Care Cartography Teacher Name Role Phone Clifford Newell Primary Care Provider + [phone] Encounter Details Date Type Department Care Team (Late st Contact Info) Description 03/02/2024 Orders Only [facility] [address] [place] [address] Caleb Pacheco MD [address] [facility] [address] [place] [address] Social History Tobacco Use Types [...] Date Kulwant rded Speak language other than Khmer at home Not on file 10/05/2023 Want [...] on filedocumented in this encounter Care Teams Cartography Teacher Relationship Specialty Start Date End Date Clifford Newell PA [address] [place] [address] [place], [place] [address] PCP - General Physician Slitting Machine Feeder 10/14/23 documented as of this encounter
--- OUTSIDE RECORDS SUMMARY | 2024-08-03 16:59 | XMS_ITS | Encounter Summary ---
Author Organization [employer] Address [address] [place] [address] Care Team Providers Care Underground Truck Operator Name Role Phone Clifford Newell Primary Care Provider + [phone] Encounter Details Date Type Department Care Team (Latest Contact Info) Description 02/29/2024 Travel Social History Tobacco Use Types Packs/Day [...] on filedocumented in this encounter Care Teams Underground Truck Operator Relationship Specialty Start Date End Date Clifford Newell PA [address] [place] [address] [place] [phone] PCP - General Physician Sales Person 10/14/23 documented as of this encounter
--- OUTSIDE RECORDS SUMMARY | 2024-08-03 16:59 | XMS_ITS | Encounter Summary ---
Author Organization [id number] Address [address] [place] [address] Care Team Providers Care Cnc Applications Engineer Name Role Phone Clifford Newell Primary Care Provider + [phone] Reason for Visit * Reason Onset Date Comments Pomalyst cycle 03/22/2024 Encounter Details Date Type Department Care Team (Late st Contact Info) Description 03/22/2024 Documentation [facility] [address] [address] Ava Cruz Social History Tobacco Use Types Packs/Day Years [...] Date Kulwant rded Speak language other than Romansh at home Not on file 10/05/2023 Want [...] as of this encounter Progress Notes * Ava Cruz - 03/22/2024 10:41 AM EDTSummary: Pomalyst cycle [id number] called stating the patient was confused on when to start her next cycle. She had taken a week off due to being sick and has 8 pills left. New cycle should have started yesterday -. Pt needs to start new cycle today and continue for 21 days then 7 days off. Just hold the 8 pills and do not use. Tried calling patient and did not get an answer and no voicemail. documented in this encounter Plan of Treatment Not on file documented as of this encounter Visit Diagnoses Not on filedocumented in this encounter Care Teams Cnc Applications Engineer Relationship Specialty Start Date End Date Clifford Newell PA [address] [place] [address] [place] [address] PCP - General Physician Dining Chair Seat Cushion Trimmer 10/14/23 documented as of this encounter
--- OUTSIDE RECORDS SUMMARY | 2024-08-03 16:59 | XMS_ITS | Encounter Summary ---
Author Organization [employer] Address [address] [place] [address] Care Team Providers Care Lamp Stack Developer Name Role Phone Clifford Newell Primary Care Provider + [phone] Encounter Details Date Type Department Care Team (Latest Contact Info) Description 02/17/2024 Travel Social History Tobacco Use Types Packs/Day [...] Date Kulwant rded Speak language other than Nepali at home Not on file 10/05/2023 Want [...] on filedocumented in this encounter Care Teams Lamp Stack Developer Relationship Specialty Start Date End Date Clifford Newell PA [address] [place] [address] [place] [phone] PCP - General Physician Deckhand Shrimp Boat 10/14/23 documented as of this encounter
--- OUTSIDE RECORDS SUMMARY | 2024-08-03 16:59 | XMS_ITS | Encounter Summary ---
Author Organization [employer] Address [address] [place] [address] Care Team Providers Care Infrastructure Director Name Role Phone Clifford Newell Primary Care Provider + [phone] Encounter Details Date Type Department Care Team (Late st Contact Info) Description 03/24/2024 Orders Only [facility] [address] [place] [address] Caleb Pacheco MD [address] [facility] [address] [place] [address] Multiple myeloma without remission (HCC) [...] Date Kulwant rded Speak language other than Tajik at home Not on file 10/05/2023 Want [...] ORDERABLES Final Res ult [facility] [address] [place] [address], [facility] [phone] documented in this encounter Visit Diagnoses Diagnosis Multiple myeloma without remission (HCC)- Primary documented in this encounter Care Teams Infrastructure Director Relationship Specialty Start Date End Date Clifford Newell PA [address] [place] [address] [place] [address] PCP - General Physician Criminal Justice Program Director 10/14/23 documented as of this encounter
--- OUTSIDE RECORDS SUMMARY | 2024-08-03 16:59 | XMS_ITS | Encounter Summary ---
Author Organization [employer] Address [address] [place] [address] Care Team Providers Care System Dispatcher Name Role Phone Clifford Newell Primary Care Provider + [phone] Encounter Details Date Type Department Care Team (Late st Contact Info) Description 02/25/2024 Orders Only [facility] [address] [place] [address] Caleb Pacheco MD [address] [facility] [address] [place] [address] Social History Tobacco Use Types [...] Date Kulwant rded Speak language other than Pashto at home Not on file 10/05/2023 Want [...] on filedocumented in this encounter Care Teams System Dispatcher Relationship Specialty Start Date End Date Clifford Newell PA [address] [place] [address] Dr [place], [place] [phone] PCP - General Physician Oyster Opener 10/14/23 documented as of this encounter
--- OUTSIDE RECORDS SUMMARY | 2024-08-03 17:00 | XMS_ITS | Encounter Summary ---
Author Organization [employer] Address [address] [place] [address] Care Team Providers Care Director Industrial Nursing Name Role Phone Clifford Newell Primary Care Provider + [phone] Encounter Details Date Type Department Care Team (Late st Contact Info) Description 11/13/2023 Orders Only [facility] [address] [place] [address] Caleb Pacheco MD [address] [facility] [address] [place] [address] Social History Tobacco Use Types [...] on filedocumented in this encounter Care Teams Director Industrial Nursing Relationship Specialty Start Date End Date Clifford Newell PA [address] [place] [address] Dr [place], [place] [phone] PCP - General Physician Order Make Up Clerk 10/14/23 documented as of this encounter
--- OUTSIDE RECORDS SUMMARY | 2024-08-03 17:00 | XMS_ITS | Encounter Summary ---
Author Organization [employer] Address [address] [place] [address] Care Team Providers Care Medical Policy Specialist Name Role Phone Clifford Newell Primary Care Provider + [phone] Reason for Visit * Reason Comments Multiple Myeloma Follow-up 4 wk f/u Encounter Details Date Type Department Care Team (Late st Contact Info) Description 12/14/2023 2:40 PM EDT Office Visit [facility] [address] [place] [address] Lico Rogers MD [address] [place] [address] Multiple myeloma without remission (HCC) [...] Sign Reading Time Taken Comments Blood Pressure 170/84 12/14/2023 2:54 PM EDT Pulse 74 12/14/2023 2:54 PM EDT Temperature 36.4 ??C (97.5 ??F) 12/14/2023 2:54 PM ED T Respiratory Rate 18 12/14/2023 2:54 PM EDT Oxygen Saturation 98% 12/14/2023 2:54 PM EDT Inhaled Oxygen Concentration - - Weight 120.2 kg (265 lb) 12/14/2023 2:54 PM EDT Height 172.7 cm (5' 7.99 ) 12/14/2023 2:54 PM ED T Body Mass Index 40.3 12/14/2023 2:54 PM EDT documented in this encounter Progress Notes * Lico Rogers MD - 12/14/2023 2:40 PM EDT Chief Complaint: History of Present Illness: Francy Bailey is a 63 y.o. female who presents today for follow up of multiple myeloma. She is on Darzalex. She denies any new complaint today. She continues to have bilateral joint pain but denied any new bone pain. No nausea or vomiting. Past Medical History: Diagnosis Date ??? Asthma [...] Treatment Summary Treatment goal Palliative Plan Name [facility] Multiple Myeloma - daratumumab (Darzalex) IV d1,8,15,22 fb D1,15 fb d1 + pomalidomide(Pomalyst) PO d1-21 every 28 days Status Active Start Date 11/03/2022 End Date 09/19/2024 (Planned) Provider Caleb Pacheco MD Chemotherapy pomalidomide 4 mg Cap, 4 mg, Oral, Daily, 1 of 1 cycle, Start date: --, End date: -- [id number] (DARZALEX FASPRO) 1,800 mg-30,000 unit/15 mL subcutaneous injection 1,800 mg, 1,800 mg, Subcutaneous, Once, 14 of 24 cycles Administration: 1,800 mg (11/03/2022), [...] mg (09/21/2023), 1,800 mg (11/16/2023), 1,800 mg (12/14/2023) Allergies: Ampicillin, Codeine, Indomethacin, Morphine, and Penicillin Medications: Current Outpatient Medications on File Prior to Visit Medication Sig Dispense Refill ??? Advair HFA 115-21 mcg/actuation inhaler 2 puffs 2 (two) times daily. ??? amitriptyline (ELAVIL) 10 MG tablet SMARTSI Tablet(s) By Mouth Every Evening PRN ??? ascorbic acid, vitamin C, (VITAMIN C) [...] total) by mouth once a week. ??? fluconazole (DIFLUCAN) 200 MG tablet Take 1 tablet (200 mg total) by mouth daily. ??? fluticasone propionate (FLONASE) 50 mcg/actuation nasal spray 2 sprays daily. ??? gabapentin (NEURONTIN) 300 MG capsule Take 1-2 capsules (300-600 mg total) by mouth 3 (three) times daily as needed. ??? HYDROcodone-acetaminophen (NORCO 7.5-325) 7.5-325 mg per tablet Take 1 tablet by mouth. ? ? lidocaine HCl (magic mouthwash, without steroid & Benadryl,) suspension SWISH AND EXPECTORATE OR SWALLOW 5 TO 10 ML BY MOUTH FOUR TIMES DAILY ??? LORazepam (ATIVAN) 0.5 MG tablet Take 1 tablet (0.5 mg total) by mouth every 12 (twelve) hours as needed. ??? meclizine (ANTIVERT) 25 mg tablet Take 1 tablet (25 mg total) by mouth 4 (four) times daily as needed. 60 tablet 5 ??? metoprolol succinate (TOPROL-XL) 25 MG 24 hr tablet Take 1 tablet (25 mg total) by mouth daily. ??? Mucus Relief ER 600 mg 12 hr tablet Take 2 tablets (1,200 mg total) by mouth 2 (two) times daily. ??? nystatin (MYCOSTATIN) 100,000 unit/mL suspension Take by mouth. ??? OneTouch Verio test strips Strp 2 (two) times daily. ??? oxyCODONE (OXY-IR) 10 mg tablet Take 1 tablet (10 mg total) by mouth every 4 (four) hours as needed for up to 100 doses. Max Daily Amount: 60 mg 100 tablet 0 ??? pantoprazole (PROTONIX) 40 MG tablet Take 1 tablet (40 mg total) by mouth daily. ??? PARoxetine (PAXIL) 30 MG tablet Take 1 tablet (30 mg total) by mouth daily. ??? Pomalyst 2 mg Cap TAKE 1 CAPSULE BY MOUTH DAILY FOR 21 DAYS, THEN 7 DAYS OFF 21 capsule 0 ??? potassium chloride SA (K-DUR,KLOR-CON-M) 20 MEQ tablet Take 1 tablet (20 mEq total) by mouth daily. ??? potassium citrate (UROCIT-K) 5 mEq (540 mg) SR tablet Take 8 tablets (40 mEq total) by mouth. ??? predniSONE (DELTASONE) 20 MG tablet Take 1 tablet (20 mg total) by mouth daily. ??? ProAir HFA 90 mcg/actuation inhaler 2 puffs. ??? prochlorperazine (COMPAZINE) 5 MG tablet Take 1 tablet (5 mg total) by mouth every 6 (six) hours as needed. ??? scopolamine (TRANSDERM-SCOP) 1 mg over 3 [...] Review of Systems Constitutional: Positive for fatigue. HENT: Negative. Eyes: Negative. Respiratory: Negative. Gastrointestinal: Negative. Endocrine: Negative. Genitourinary: Negative. Musculoskeletal: Positive for joint swelling. Neurological: Negative. Hematological: Negative. Psychiatric/Behavioral: Negative. All other systems reviewed and are negative. Vitals: Vitals: 12/14/23 1454 BP: (!) 170/84 Pulse: 74 Resp: 18 Temp: 97.5 ??F (36.4 ??C) SpO2: 98% Weight: 120.2 kg (265 lb) Height: 1.727 m (5' 7.99 ) [...] range of motion and neck supple. Comments: Subjective discomfort in the lower back to palpation Neurological: General: No focal deficit present. Mental Status: She is alert. Relevant Results: Office Visit on 12/14/2023 Component Date Value Ref Range Status ??? WBC 12/14/2023 5.6 4.5 - 12.5 K/??L Final ??? RBC 12/14/2023 3.54 (L) 4.00 - 5.25 M/??L Final ??? Hemoglobin 12/14/2023 11.9 (L) 12.0 - 16.0 GM/DL Final ??? Hematocrit 12/14/2023 36.8 36.0 - 46.0 % Final ??? MCV 12/14/2023 104 (H) 80 - 100 fL Final ??? MCH 12/14/2023 33.6 26.0 - 34.0 pg Final ??? MCHC 12/14/2023 32.3 31.0 - 37.0 GM/DL Final ??? RDW 12/14/2023 12.5 12.0 - 16.8 % Final ??? Platelets 12/14/2023 172 140 - 440 K/CU MM Final ??? MPV 12/14/2023 10.0 7.4 - 10.4 fL Final ??? % Neutros 12/14/2023 54 45 - 80 % Final ??? % Lymphs 12/14/2023 35 15 - 45 % Final ??? % Monos 12/14/2023 10 0 - 10 % Final ??? % Eos 12/14/2023 1 0 - 5 % Final ??? % Baso 12/14/2023 0 0 - 3 % Final ??? # Neutros 12/14/2023 3.01 2.00 - 8.80 K/??L Final ??? # Lymphs 12/14/2023 1.93 0.70 - 5.50 K/??L Final ??? # Monos 12/14/2023 0.54 0.00 - 1.70 K/??L Final ??? # Eos 12/14/2023 0.07 0.00 - 0.80 K/??L Final ??? # Baso 12/14/2023 0.02 0.00 - 0.20 K/??L Final ??? Sodium 12/14/2023 141 136 - 146 meq/L Final ??? Potassium 12/14/2023 3.7 3.5 - 5.1 meq/L Final ??? Chloride 12/14/2023 108 102 - 112 meq/L Final ??? CO2 12/14/2023 27 21 - 32 meq/L Final ??? Calcium 12/14/2023 9.7 8.5 - 10.1 mg/dL Final ??? Glucose 12/14/2023 111 (H) 74 - 106 mg/dL Final ??? BUN 12/14/2023 14 7 - 22 mg/dL Final ??? Creatinine 12/14/2023 1.14 (H) 0.55 - 1.02 mg/dL Final ??? BUN/Creatinine 12/14/2023 12 8 - 20 Final ??? Albumin 12/14/2023 3.0 (L) 3.4 - 5.0 g/dL Final ??? Alkaline Phosphatase 12/14/2023 51 27 - 136 U/L Final ??? ALT 12/14/2023 16 12 - 78 U/L Final ??? AST 12/14/2023 10 5 - 37 U/L Final ??? Total Bilirubin 12/14/2023 0.3 0.2 - 1.3 mg/dL Final ??? Protein, Total 12/14/2023 7.4 6.4 - 8.2 gm/dL Final ??? Anion Gap 12/14/2023 10 9 - 20 Final ??? A/G Ratio 12/14/2023 0.7 (L) 1.1 - 2.5 Final ??? Globulin 12/14/2023 4.4 1.5 - 4.5 g/dL Final ??? Osmolality Calc 12/14/2023 282.4 Final ? ? eGFR (mL/min/1.73m2) 12/14/2023 54 (L) >=60 mL/min/1.73m2 Final ESTIMATED GFR IS NOT ACCURATE CREATININE CLEARANCE IN PREDICTING GLOMERULAR FILTRATION RATE. ESTIMATED GFR IS NOT APPLICABLE FOR DIALYSIS PATIENTS. No results found. Cancer Staging No matching staging information was found for the patient. Plan: She is not aware of any enlarged lymph nodes or abnormal mass. Patient will proceed with Darzalex treatment today as scheduled. She was advised about possible side effects including but not limited to allergic reaction. There has been interval increase in the monoclonal protein. I will repeat serum protein electrophoresis with serum free light chain ratio and quantitative immunoglobulin. She will return in 4 weeks. She understand my recommendation and she knows to call with any new difficulties. Signed: Electronically signed by Lico Rogers MD 12/15/23 11:12 AM MARILEE Brown documented in this encounter Plan of Treatment Scheduled Orders Name Type Priority Associated Diagnoses Orde r Schedule CBC with Diff Lab Routine Multiple myeloma without remission (HCC) Expected: 01/11/2024, Expires: 12/13/2024 documented as of this encounter Procedures Procedure Name Priority Date/Time Associated Diagnosis Comments MONOCLONAL PROTEIN STUDY, EXPANDED PANEL(SENDOUT) Routine 12/14/2023 3:58 PM EDT Multiple myeloma without remission (HCC) CBC W/ AUTO DIFF STAT 12/14/2023 3:00 PM EDT Multiple myeloma without remission (HCC) COMPREHENSIVE METABOLIC PANEL STAT 12/14/2023 3:00 PM EDT Multiple myeloma without remission (HCC) documented in this encounter Results * (ABNORMAL) Monoclonal Protein Study, Expanded Panel(SENDOUT) (01/11/2024 10:53 AM EDT) Total Protein, Serum 7.3 6.3 - 8.2 g/dL 01/13/2024 8:59 PM EDT [facility] Albumin 3.28(L) 3.75 - 5.01 g/dL 01/13/2024 8:59 PM EDT [email or web address] Alpha 1 Globulin 0.32 0.19 - 0.46 g/dL 01/13/2024 8:59 PM EDT [email or web address] Alpha 2 Globulin 0.82 0.48 - 1.05 g/dL 01/13/2024 8:59 PM EDT [email or web address] Beta Globulin 2.64(H) 0.48 - 1.10 g/dL 01/13/2024 8:59 PM EDT [email or web address] Gamma 0.24(L) 0.62 - 1.51 g/dL 01/13/2024 8:59 PM EDT [email or web address] Immunofixation RALPH Done 01/13/2024 8:59 PM EDT [email or web address] Immunoglobulin G 213(L) 768 - 1632 mg/dL 01/13/2024 8:59 PM EDT [email or web address] Immunoglobulin A 1728(H) 68 - 408 mg/dL 01/13/2024 8:59 PM EDT [email or web address] Immunoglobulin M 14(L) 35 - 263 mg/dL 01/13/2024 8:59 PM EDT [email or web address] Monoclonal Protein 2.28(H) <=0.00 g/dL 01/13/2024 8:59 PM EDT [email or web address] [place] Qnt Free Light Chains 4.50 3.30 - 19.40 mg/L 01/13/2024 8:59 PM EDT [email or web address] Comment: INTERPRETIVE INFORMATION: [place] Qnt Free Light Chains Undetected antigen excess is a rare event but cannot be excluded. Free light chain results should always be interpreted in conjunction with other clinical and laboratory findings. Lambda Qnt Free Light Chains 55.72(H) 5.71 - 26.30 mg/L 01/13/2024 8:59 PM EDT [facility] [[email or web address] Comment: INTERPRETIVE INFORMATION: Lambda Qnt Free Light Chains Undetected antigen excess is a rare event but cannot be excluded. Free light chain results should always be interpreted in conjunction with other clinical and laboratory findings. [place]/Lambda Free Light Chain Ratio 0.08(L) 0.26 - 1.65 01/13/2024 8:59 PM EDT [email or web address] SPEP/RALPH Interpretation See Note 01/13/2024 8:59 PM EDT [facility] [[email or web address] [employer] Comment: Monoclonal spike in the beta region. The quantitation may include complement and/or transferrin components. Measurement of total Immunoglobulin (IgA, IgG, or IgM) can be used for the quantitation of the monoclonal spike instead. Hypogammaglobulinemia. RALPH gel pattern shows an IgA type lambda monoclonal protein with an additional faint band in IgG kappa. EER Monoclonal Protein and FLC, Serum See Note 01/13/2024 8:59 PM EDT [facility] [[email or web address]] [facility] Comment: Authorized individuals can access the [facility] [[email or web address]] Enhanced Report using the following link: [email or web address] Performed By: [facility] [address] [place] [id number] Family Service Caseworker: Parker Rangel MD, PhD CLIA Number: [id number] Blood ENTIRE RIGHT UPPER ARM / Unknown Venipuncture / Unknown 01/11/2024 10:53 AM EDT 01/11/2024 11:09 AM EDT us Lico Rogers MD LAB BLOOD ORDERABLES Final Res ult [facility] [[email or web address]] [facility] [employer] [address] [place] [address], [facility] [phone] * (ABNORMAL) LFTs (01/11/2024 10:53 AM EDT) Protein, Total 7.8 6.4 - 8.2 gm/dL 01/11/2024 12:03 PM EDT [facility] Albumin 3.1(L) 3.4 - 5.0 g/dL 01/11/2024 12:03 PM EDT [facility] Total Bilirubin 0.4 0.2 - 1.3 mg/dL 01/11/2024 12:03 PM T [facility] Bilirubin, Direct <0.1 0.0 - 0.2 mg/dL 01/11/2024 12:03 PM EDT [facility] Alkaline Phosphatase 51 27 - 136 U/L 01/11/2024 12:03 PM T [facility] Globulin 4.7(H) 1.5 - 4.5 g/dL 01/11/2024 12:03 PM T [facility] A/G Ratio 0.7(L) 1.1 - 2.5 01/11/2024 12:03 PM T [facility] AST 18 5 - 37 U/L 01/11/2024 12:03 PM EDT [facility] Comment:Yeahka has become aware of sulfasalazine and sulfapyridine [...] prior to administration of the drug. ALT 17 12 - 78 U/L 01/11/2024 12:03 PM T [facility] Comment:Yeahka has become aware of sulfasalazine and sulfapyridine [...] UPPER ARM / Unknown Venipuncture / Unknown 01/11/2024 10:53 AM EDT 01/11/2024 11:09 AM EDT us Lico Rogers MD LAB BLOOD ORDERABLES Final Res ult [facility] [address] [place] [address] [phone] * (ABNORMAL) ONC BMP (01/11/2024 10:53 AM EDT) Sodium 141 136 - 146 meq/L 01/11/2024 11:14 AM EDT [facility] Potassium 4.1 3.5 - 5.1 meq/L 01/11/2024 11:14 AM EDT [facility] Chloride 104 98 - 108 meq/L 01/11/2024 11:14 AM EDT [facility] CO2 32(H) 22 - 29 meq/L 01/11/2024 11:14 AM EDT [facility] Anion Gap 9 9 - 20 01/11/2024 11:14 AM EDT [facility] BUN 13 7 - 18 mg/dL 01/11/2024 11:14 AM EDT [facility] Creatinine 1.30(H) 0.60 - 1.10 mg/dL 01/11/2024 11:14 AM EDT [facility] BUN/Creatinine 10 8 - 20 01/11/2024 11:14 AM EDT [facility] Glucose 73 70 - 105 mg/dL 01/11/2024 11:14 AM EDT [facility] Calcium Ionized (mg/dL) 5.38(H) 4.36 - 5.20 mg/dL 01/11/2024 11:14 AM EDT [facility] Blood ENTIRE RIGHT UPPER ARM / Unknown Venipuncture / Unknown 01/11/2024 10:53 AM EDT 01/11/2024 11:09 AM EDT us Lico Rogers MD LAB BLOOD ORDERABLES Final Res ult [facility] [address] [place] [address], [facility] [phone] * (ABNORMAL) Monoclonal Protein Study, Expanded Panel(SENDOUT) (12/14/2023 3:58 PM EDT) Total Protein, Serum 6.9 6.3 - 8.2 g/dL 12/17/2023 11:47 PM EDT [email or web address] Albumin 3.33(L) 3.75 - 5.01 g/dL 12/17/2023 11:47 PM EDT [email or web address] Alpha 1 Globulin 0.31 0.19 - 0.46 g/dL 12/17/2023 11:47 PM EDT [email or web address] Alpha 2 Globulin 0.83 0.48 - 1.05 g/dL 12/17/2023 11:47 PM EDT [email or web address] Beta Globulin 2.17(H) 0.48 - 1.10 g/dL 12/17/2023 11:47 PM EDT [email or web address] Gamma 0.26(L) 0.62 - 1.51 g/dL 12/17/2023 11:47 PM [facility] Immunofixation RALPH Done 12/17/2023 11:47 PM [facility] Immunoglobulin G 243(L) 768 - 1632 mg/dL 12/17/2023 11:47 PM T [facility] Immunoglobulin A 1343(H) 68 - 408 mg/dL 12/17/2023 11:47 PM T [facility] Immunoglobulin M 11(L) 35 - 263 mg/dL 12/17/2023 11:47 PM T [facility] Monoclonal Protein 1.80(H) <=0.00 g/dL 12/17/2023 11:47 PM T [email or web address] [place] Qnt Free Light Chains 3.35 3.30 - 19.40 mg/L 12/17/2023 11:47 PM T [facility] Comment: INTERPRETIVE INFORMATION: [place] Qnt Free Light Chains Undetected antigen excess is a rare event but cannot be excluded. Free light chain results should always be interpreted in conjunction with other clinical and laboratory findings. Lambda Qnt Free Light Chains 30.95(H) 5.71 - 26.30 mg/L 12/17/2023 11:47 PM [facility] Comment: INTERPRETIVE INFORMATION: Lambda Qnt Free Light Chains Undetected antigen excess is a rare event but cannot be excluded. Free light chain results should always be interpreted in conjunction with other clinical and laboratory findings. [place]/Lambda Free Light Chain Ratio 0.11(L) 0.26 - 1.65 12/17/2023 11:47 PM EDT [facility] [[email or web address] SPEP/RALPH Interpretation See Note 12/17/2023 11:47 PM EDT [facility] [[email or web address] Comment: Monoclonal spike in the beta region. The quantitation may include complement and/or transferrin components. Measurement of total Immunoglobulin (IgA, IgG, or IgM) can be used for the quantitation of the monoclonal spike instead. Hypogammaglobulinemia. RALPH gel pattern shows an IgA type lambda monoclonal protein. EER Monoclonal Protein and FLC, Serum See Note 12/17/2023 11:47 PM EDT [facility] [[email or web address]] [facility] Comment: Authorized individuals can access the [facility] [[email or web address]] Enhanced Report using the following link: [email or web address] Performed By: [facility] [address] [place] [address] Family Service Caseworker: Parker Rangel MD, PhD CLIA Number: [id number] Blood Venipuncture / Unknown 12/14/2023 3:58 PM EDT 12/14/2023 4:01 PM EDT us Lico Rogers MD LAB BLOOD ORDERABLES Final Res ult [facility] [[email or web address]] [facility] [employer] [address] [place] [address], [facility] [phone] * (ABNORMAL) Comprehensive metabolic panel (12/14/2023 3:00 PM EDT) Sodium 141 136 - 146 meq/L 12/14/2023 3:56 PM EDT [facility] Potassium 3.7 3.5 - 5.1 meq/L 12/14/2023 3:56 PM EDT [facility] Chloride 108 102 - 112 meq/L 12/14/2023 3:56 PM EDT [facility] CO2 27 21 - 32 meq/L 12/14/2023 3:56 PM EDT [facility] Calcium 9.7 8.5 - 10.1 mg/dL 12/14/2023 3:56 PM EDT [facility] Glucose 111(H) 74 - 106 mg/dL 12/14/2023 3:56 PM T [facility] BUN 14 7 - 22 mg/dL 12/14/2023 3:56 PM T [facility] Creatinine 1.14(H) 0.55 - 1.02 mg/dL 12/14/2023 3:56 PM T [facility] BUN/Creatinine 12 8 - 20 12/14/2023 3:56 PM T [facility] Albumin 3.0(L) 3.4 - 5.0 g/dL 12/14/2023 3:56 PM T [facility] Alkaline Phosphatase 51 27 - 136 U/L 12/14/2023 3:56 PM T [facility] ALT 16 12 - 78 U/L 12/14/2023 3:56 PM T [facility] AST 10 5 - 37 U/L 12/14/2023 3:56 PM [facility] Total Bilirubin 0.3 0.2 - 1.3 mg/dL 12/14/2023 3:56 PM [facility] Protein, Total 7.4 6.4 - 8.2 gm/dL 12/14/2023 3:56 PM [facility] Anion Gap 10 9 - 20 12/14/2023 3:56 PM [facility] A/G Ratio 0.7(L) 1.1 - 2.5 12/14/2023 3:56 PM [facility] Globulin 4.4 1.5 - 4.5 g/dL 12/14/2023 3:56 PM T [facility] Osmolality Calc 282.4 3:56 PM [facility] eGFR (mL/min/1.73m2) 54(L) >=60 mL/min/1.7 3m2 12/14/2023 3:56 PM [facility] Comment:ESTIMATED GFR IS NOT ACCURATE CREATININE CLEARANCE IN PREDICTING GLOMERULAR FILTRATION RATE. ESTIMATED GFR IS NOT APPLICABLE FOR DIALYSIS PATIENTS. Blood Venipuncture / Unknown 12/14/2023 3:00 PM EDT 12/14/2023 3:03 PM EDT us Lico Rogers MD LAB BLOOD ORDERABLES Final Res ult [facility] [address] [place] [address], [facility] [phone] * (ABNORMAL) CBC with Automated Diff (12/14/2023 3:00 PM EDT) WBC 5.6 4.5 - 12.5 K/??L 12/14/2023 3:19 PM EDT [facility] RBC 3.54(L) 4.00 - 5.25 M/??L 12/14/2023 3:19 PM EDT [facility] Hemoglobin 11.9(L) 12.0 - 16.0 GM/DL 12/14/2023 3:19 PM EDT [facility] Hematocrit 36.8 36.0 - 46.0 % 12/14/2023 3:19 PM EDT [facility] MCV 104(H) 80 - 100 fL 12/14/2023 3:19 PM EDT [facility] MCH 33.6 26.0 - 34.0 pg 12/14/2023 3:19 PM EDT [facility] MCHC 32.3 31.0 - 37.0 GM/DL 12/14/2023 3:19 PM EDT [facility] RDW 12.5 12.0 - 16.8 % 12/14/2023 3:19 PM EDT [facility] Platelets 172 140 - 440 K/CU MM 12/14/2023 3:19 PM EDT [facility] MPV 10.0 7.4 - 10.4 fL 12/14/2023 3:19 PM EDT [facility] % Neutros 54 45 - 80 % 12/14/2023 3:19 PM EDT [facility] % Lymphs 35 15 - 45 % 12/14/2023 3:19 PM EDT [facility] % Monos 10 0 - 10 % 12/14/2023 3:19 PM EDT [facility] % Eos 1 0 - 5 % 12/14/2023 3:19 PM EDT [facility] % Baso 0 0 - 3 % 12/14/2023 3:19 PM EDT [facility] # Neutros 3.01 2.00 - 8.80 K/??L 12/14/2023 3:19 PM EDT [facility] # Lymphs 1.93 0.70 - 5.50 K/??L 12/14/2023 3:19 PM EDT [facility] # Monos 0.54 0.00 - 1.70 K/??L 12/14/2023 3:19 PM EDT [facility] # Eos 0.07 0.00 - 0.80 K/??L 12/14/2023 3:19 PM EDT [facility] # Baso 0.02 0.00 - 0.20 K/??L 12/14/2023 3:19 PM EDT [facility] Blood Venipuncture / Unknown 12/14/2023 3:00 PM EDT 12/14/2023 3:03 PM EDT Narrative [facility] - 12/14/2023 3:19 PM EDT When CBC w/ Auto Diff [...] Flag noted Atypical Lymph flag noted us Lico Rogers MD LAB BLOOD ORDERABLES Final Res ult Performing Organization Address City/State/[facility] Co de Phone Number [facility] [address] [phone] documented in this encounter Visit Diagnoses Diagnosis Multiple myeloma without remission (HCC) documented in this encounter Care Teams Medical Policy Specialist Relationship Specialty Start Date End Date Clifford Newell PA [address] [place] [address] [place] [phone] PCP - General Physician Pay Station Collector 10/14/23 documented as of this encounter
--- OUTSIDE RECORDS SUMMARY | 2024-08-03 17:00 | XMS_ITS | Encounter Summary ---
Author Organization [employer] Address [address] [place] [address] Care Team Providers Care Nutrition Therapist Name Role Phone Clifford Newell Primary Care Provider + [phone] Reason for Visit * Reason Comments Follow-up 1m f/u with labs and infusion Multiple myeloma without remission (HCC) Encounter Details Date Type Department Care Team (Late st Contact Info) Description 11/16/2023 9:30 AM EST Office Visit [place] [facility] [address] [place] [address] [address] [place] [address] Raimundo Pacheco MD [address] [facility] [address] [place] [address] Multiple myeloma without remission (HCC) [...] Sign Reading Time Taken Comments Blood Pressure 145/86 11/16/2023 9:47 AM EST Pulse 74 11/16/2023 9:47 AM EST Temperature 36.8 ??C (98.2 ??F) 11/16/2023 9:47 AM ES T Respiratory Rate 18 11/16/2023 9:47 AM EST Oxygen Saturation 97% 11/16/2023 9:47 AM EST Inhaled Oxygen Concentration - - Weight 119 kg (262 lb 4.8 oz) 11/16/2023 9:47 AM EST Height 172.7 cm (5' 7.99 ) 11/16/2023 9:47 AM ES T Body Mass Index 39.89 11/16/2023 9:47 AM EST documented in this encounter Progress Notes * Raimundo Pacheco MD - 11/16/2023 9:30 AM EST Chief Complaint: History of Present Illness: Francy Bailey is a 63 y.o. female who presents today for follow up of multiple myeloma. She is on Darzalex. She takes steroids with that. Her blood counts could not support taking the pomalidomide at the same time. Her bone pain is about the same. She is lost a little weight. She denies any other new concerns or problems. Past Medical History: Diagnosis Date ??? Asthma [...] Treatment Summary Treatment goal Palliative Plan Name [facility] Multiple Myeloma - daratumumab (Darzalex) IV d1,8,15,22 fb D1,15 fb d1 + pomalidomide(Pomalyst) PO d1-21 every 28 days Status Active Start Date 11/03/2022 End Date 11/16/2023 Provider Raimundo Pacheco MD Chemotherapy pomalidomide 4 mg Cap, 4 mg, Oral, Daily, 1 of 1 cycle, Start date: --, End date: -- [id number]-wapioqcfetthd-sbsv (DARZALEX FASPRO) 1,800 mg-30,000 unit/15 mL subcutaneous injection 1,800 mg, 1,800 mg, Subcutaneous, Once, 13 of 13 cycles Administration: 1,800 mg (11/03/2022), 1,800 mg [...] mg (07/27/2023), 1,800 mg (08/24/2023), 1,800 mg (09/21/2023) Allergies: Ampicillin, Codeine, Indomethacin, Morphine, and Penicillin [...] strips Strp 2 (two) times daily. ??? pantoprazole (PROTONIX) 40 MG tablet Take [...] SMARTSI Tablet(s) By Mouth Every Evening ??? [DISCONTINUED] oxyCODONE (OXY-IR) 10 mg tablet Take 1 tablet (10 mg total) by mouth every 4 (four) hours as needed for up to 100 doses. Max Daily Amount: 60 mg 100 tablet 0 No current facility-administered medications on file prior to visit. Review of Systems: Review of Systems All other systems reviewed and are negative. Vitals: Vitals: 11/16/23 0947 BP: (!) 145/86 Pulse: 74 Resp: 18 Temp: 98.2 ??F (36.8 ??C) SpO2: 97% Weight: 119 kg (262 lb 4.8 oz) Height: 1.727 m (5' 7.99 ) [...] is alert. Relevant Results: Office Visit on 11/16/2023 Component Date Value Ref Range Status ??? WBC 11/16/2023 2.9 (L) 4.5 - 12.5 K/??L Final ??? RBC 11/16/2023 3.85 (L) 4.00 - 5.25 M/??L Final ??? Hemoglobin 11/16/2023 12.7 12.0 - 16.0 GM/DL Final ??? Hematocrit 11/16/2023 40.0 36.0 - 46.0 % Final ??? MCV 11/16/2023 104 (H) 80 - 100 fL Final ??? MCH 11/16/2023 33.0 26.0 - 34.0 pg Final ??? MCHC 11/16/2023 31.8 31.0 - 37.0 GM/DL Final ??? RDW 11/16/2023 12.4 12.0 - 16.8 % Final ??? Platelets 11/16/2023 179 140 - 440 K/CU MM Final ??? MPV 11/16/2023 9.7 7.4 - 10.4 fL Final ??? % Neutros 11/16/2023 40 (L) 45 - 80 % Final ??? % Lymphs 11/16/2023 44 15 - 45 % Final ??? % Monos 11/16/2023 13 (H) 0 - 10 % Final ??? % Eos 11/16/2023 2 0 - 5 % Final ??? % Baso 11/16/2023 1 0 - 3 % Final ??? # Neutros 11/16/2023 1.18 (L) 2.00 - 8.80 K/??L Final ??? # Lymphs 11/16/2023 1.28 0.70 - 5.50 K/??L Final ??? # Monos 11/16/2023 0.37 0.00 - 1.70 K/??L Final ??? # Eos 11/16/2023 0.06 0.00 - 0.80 K/??L Final ??? # Baso 11/16/2023 0.03 0.00 - 0.20 K/??L Final ??? Sodium 11/16/2023 144 136 - 146 meq/L Final ??? Potassium 11/16/2023 4.1 3.5 - 5.1 meq/L Final ??? Chloride 11/16/2023 111 102 - 112 meq/L Final ??? CO2 11/16/2023 27 21 - 32 meq/L Final ??? Calcium 11/16/2023 9.5 8.5 - 10.1 mg/dL Final ??? Glucose 11/16/2023 125 (H) 74 - 106 mg/dL Final ??? BUN 11/16/2023 11 7 - 22 mg/dL Final ??? Creatinine 11/16/2023 1.02 0.55 - 1.02 mg/dL Final ??? BUN/Creatinine 11/16/2023 11 8 - 20 Final ??? Albumin 11/16/2023 3.1 (L) 3.4 - 5.0 g/dL Final ??? Alkaline Phosphatase 11/16/2023 61 27 - 136 U/L Final ??? ALT 11/16/2023 16 12 - 78 U/L Final ??? AST 11/16/2023 14 5 - 37 U/L Final ??? Total Bilirubin 11/16/2023 0.3 0.2 - 1.3 mg/dL Final ??? Protein, Total 11/16/2023 7.5 6.4 - 8.2 gm/dL Final ??? Anion Gap 11/16/2023 10 9 - 20 Final ??? A/G Ratio 11/16/2023 0.7 (L) 1.1 - 2.5 Final ??? Globulin 11/16/2023 4.4 1.5 - 4.5 g/dL Final ??? Osmolality Calc 11/16/2023 287.7 Final ? ? eGFR (mL/min/1.73m2) 11/16/2023 >60 >=60 mL/min/1.73m2 Final ESTIMATED GFR IS NOT ACCURATE CREATININE CLEARANCE IN PREDICTING GLOMERULAR FILTRATION RATE. ESTIMATED GFR IS NOT APPLICABLE FOR DIALYSIS PATIENTS. No results found. Cancer Staging No matching staging information was found for the patient. Plan: Her hemoglobin is excellent. Her creatinine and calcium are still pending. She will receive Darzalex 1800 mg subcutaneously today she return in a month for the same potentially. Notify regarding her immunoelectrophoresis. At some point her M spike will be high enough that we will have to consider stopping the Darzalex and changing to a different drug such as carfilzomib. I have answered herquestions. Signed: Electronically signed by RAIMUNDO PACHECO MD 11/16/23 11:12 AM EST [facility] documented in this encounter Plan of Treatment Not on file documented as of this encounter Procedures Procedure Name Priority Date/Time Associated Diagnosis Comments IMMUNOFIX ELECTROPHORESIS BILL(SENDOUT) Routine 11/16/2023 9:55 AM EST Multiple myeloma without remission (HCC) CBC W/ AUTO DIFF STAT 11/16/2023 9:55 AM EST Multiple myeloma without remission (HCC) PROTEIN ELECTROPHORESIS W RFLX TO RALPH(SENDOUT) Routine 11/16/2023 9:55 AM EST Multiple myeloma without remission (HCC) IMMUNOGLOBULIN M(SENDOUT) Routine 11/16/2023 9:55 AM EST Multiple myeloma without remission (HCC) IMMUNOGLOBULIN G(SENDOUT) Routine 11/16/2023 9:55 AM EST Multiple myeloma without remission (HCC) IMMUNOGLOBULIN A(SENDOUT) Routine 11/16/2023 9:55 AM EST Multiple myeloma without remission (HCC) COMPREHENSIVE METABOLIC PANEL STAT 11/16/2023 9:55 AM EST Multiple myeloma without remission (HCC) documented in this encounter Results * (ABNORMAL) Immunoglobulin A(SENDOUT) (11/16/2023 9:55 AM EST) Immunoglobulin A 1440(H) 68 - 408 mg/dL 11/19/2023 12:36 PM EST [facility] Comment: Performed By: [facility] [address] [place] [address] Nurse Wound: Parker Rangel MD, PhD CLIA Number: [id number] Blood Venipuncture / Unknown 11/16/2023 9:55 AM EST 11/16/2023 9:59 AM EST Raimundo Pacheco MD LAB BLOOD ORDERABLES Final Res ult Performing Organization Address City/[facility]/ZIP Co de Phone Number [facility] [address] [place] [address] * (ABNORMAL) Immunoglobulin M(SENDOUT) (11/16/2023 9:55 AM EST) Immunoglobulin M 12(L) 35 - 263 mg/dL 11/19/2023 12:36 PM EST [facility] Comment: Performed By: [facility] [address] [place] [address] Nurse Wound: Parker Rangel MD, PhD CLIA Number: [id number] Blood Venipuncture / Unknown 11/16/2023 9:55 AM EST 11/16/2023 9:59 AM EST Raimundo Pacheco MD LAB BLOOD ORDERABLES Final Res ult [facility] [address] [place] [address] * (ABNORMAL) Immunoglobulin G(SENDOUT) (11/16/2023 9:55 AM EST) Pathologist [facility] Immunoglobulin G 256(L) 768 - 1632 mg/dL 11/19/2023 12:36 PM EST [facility] Comment: Performed By: [facility] [address] [place] [address] Nurse Wound: Parker Rangel MD, PhD CLIA Number: [id number] Blood Venipuncture / Unknown 11/16/2023 9:55 AM EST 11/16/2023 9:59 AM EST Raimundo Pacheco MD LAB BLOOD ORDERABLES Final Res ult Performing Organization Address [facility]/ZIP Co de Phone Number [address] [phone] * [employer] Electrophoresis Bill(SENDOUT) (11/16/2023 9:55 AM EST) [facility]ix Electrophoresis Bill Billed 11/19/2023 12:35 PM EST [facility] Comment: Performed By: [facility] [employer] [address] [place] [address] Nurse Wound: Parker Rangel MD, PhD CLIA Number: [id number] Blood Venipuncture / Unknown 11/16/2023 9:55 AM EST 11/16/2023 9:59 AM EST Raimundo Pacheco MD LAB BLOOD ORDERABLES Final Res ult Performing Organization Address City/[facility]/ZIP Co de Phone Number [address] [phone] * (ABNORMAL) Protein Electrophoresis w Rflx to RALPH(SENDOUT) (11/16/2023 9:55 AM EST) [facility] Total Protein, Serum 7.0 6.3 - 8.2 g/dL 11/19/2023 12:35 PM EST [facility] Albumin 3.47(L) 3.75 - 5.01 g/dL 11/19/2023 12:35 PM EST [facility] Alpha 1 Globulin 0.32 0.19 - 0.46 g/dL 11/19/2023 12:35 PM EST [facility] Alpha 2 Globulin 0.88 0.48 - 1.05 g/dL 11/19/2023 12:35 PM EST [facility] Beta Globulin 2.07(H) 0.48 - 1.10 g/dL 11/19/2023 12:35 PM [facility] Gamma 0.27(L) 0.62 - 1.51 g/dL 11/19/2023 12:35 PM [facility] Immunofixation Reflex RALPH Done 11/19/2023 12:35 PM [facility] Monoclonal Protein 1.69(H) <=0.00 g/dL 11/19/2023 12:35 PM [facility] SPEP/RALPH Interpretation See Note 11/19/2023 12:35 PM [facility] Comment: Monoclonal spike in the beta region. The quantitation may include complement and/or transferrin components. Measurement of total Immunoglobulin (IgA, IgG, or IgM) can be used for the quantitation of the monoclonal spike instead. Hypogammaglobulinemia. RALPH gel pattern shows an IgA type lambda monoclonal protein with an additional faint band in kappa. [facility] Serum Protein Electrophoresis Reflex See Note 11/19/2023 12:35 PM [facility] Comment: Authorized individuals can access the [facility] Enhanced Report using the following link: [email or web address] Performed By: [facility] [address] [place] [address] Nurse Wound: Parker Rangel MD, PhD CLIA Number: [id number] Blood Venipuncture / Unknown 11/16/2023 9:55 AM EST 11/16/2023 9:59 AM EST us Raimundo Pacheco MD LAB BLOOD ORDERABLES Final Res ult [facility] [employer] [address] [place] [address], [facility] [phone] * (ABNORMAL) Comprehensive metabolic panel (11/16/2023 9:55 AM EST) Sodium 144 136 - 146 meq/L 11/16/2023 10:53 AM [facility] Potassium 4.1 3.5 - 5.1 meq/L 11/16/2023 10:53 AM [facility] Chloride 111 102 - 112 meq/L 11/16/2023 10:53 AM [facility] CO2 27 21 - 32 meq/L 11/16/2023 10:53 AM [facility] Calcium 9.5 8.5 - 10.1 mg/dL 11/16/2023 10:53 AM [facility] Glucose 125(H) 74 - 106 mg/dL 11/16/2023 10:53 AM [facility] BUN 11 7 - 22 mg/dL 11/16/2023 10:53 AM [facility] Creatinine 1.02 0.55 - 1.02 mg/dL 11/16/2023 10:53 AM [facility] BUN/Creatinine 11 8 - 20 11/16/2023 10:53 AM [facility] Albumin 3.1(L) 3.4 - 5.0 g/dL 11/16/2023 10:53 AM [facility] Alkaline Phosphatase 61 27 - 136 U/L 11/16/2023 10:53 AM [facility] ALT 16 12 - 78 U/L 11/16/2023 10:53 AM [facility] AST 14 5 - 37 U/L 11/16/2023 10:53 AM [facility] Total Bilirubin 0.3 0.2 - 1.3 mg/dL 11/16/2023 10:53 AM [facility] Protein, Total 7.5 6.4 - 8.2 gm/dL 11/16/2023 10:53 AM [facility] Anion Gap 10 9 - 20 11/16/2023 10:53 AM [facility] A/G Ratio 0.7(L) 1.1 - 2.5 11/16/2023 10:53 AM [facility] Globulin 4.4 1.5 - 4.5 g/dL 11/16/2023 10:53 AM [facility] Osmolality Calc 287.7 10:53 AM EST [facility] eGFR (mL/min/1.73m2) >60 >=60 mL/min/1.7 3m2 11/16/2023 10:53 AM EST [facility] Comment:ESTIMATED GFR IS NOT ACCURATE CREATININE CLEARANCE IN PREDICTING GLOMERULAR FILTRATION RATE. ESTIMATED GFR IS NOT APPLICABLE FOR DIALYSIS PATIENTS. Blood Venipuncture / Unknown 11/16/2023 9:55 AM EST 11/16/2023 9:59 AM EST us Raimundo Pacheco MD LAB BLOOD ORDERABLES Final Res ult [facility] [address] [phone] * (ABNORMAL) CBC with Automated Diff (11/16/2023 9:55 AM EST) WBC 2.9(L) 4.5 - 12.5 K/??L 11/16/2023 10:08 AM EST [facility] RBC 3.85(L) 4.00 - 5.25 M/??L 11/16/2023 10:08 AM EST [facility] Hemoglobin 12.7 12.0 - 16.0 GM/DL 11/16/2023 10:08 AM EST [facility] Hematocrit 40.0 36.0 - 46.0 % 11/16/2023 10:08 AM EST [facility] MCV 104(H) 80 - 100 fL 11/16/2023 10:08 AM EST [facility] MCH 33.0 26.0 - 34.0 pg 11/16/2023 10:08 AM EST [facility] MCHC 31.8 31.0 - 37.0 GM/DL 11/16/2023 10:08 AM EST [facility] RDW 12.4 12.0 - 16.8 % 11/16/2023 10:08 AM EST [facility] Platelets 179 140 - 440 K/CU MM 11/16/2023 10:08 AM EST [facility] MPV 9.7 7.4 - 10.4 fL 11/16/2023 10:08 AM EST [facility] % Neutros 40(L) 45 - 80 % 11/16/2023 10:08 AM EST [facility] % Lymphs 44 15 - 45 % 11/16/2023 10:08 AM EST [facility] % Monos 13(H) 0 - 10 % 11/16/2023 10:08 AM EST [facility] % Eos 2 0 - 5 % 11/16/2023 10:08 AM EST [facility] % Baso 1 0 - 3 % 11/16/2023 10:08 AM EST [facility] # Neutros 1.18(L) 2.00 - 8.80 K/??L 11/16/2023 10:08 AM EST [facility] # Lymphs 1.28 0.70 - 5.50 K/??L 11/16/2023 10:08 AM EST [facility] # Monos 0.37 0.00 - 1.70 K/??L 11/16/2023 10:08 AM EST [facility] # Eos 0.06 0.00 - 0.80 K/??L 11/16/2023 10:08 AM EST [facility] # Baso 0.03 0.00 - 0.20 K/??L 11/16/2023 10:08 AM EST [facility] Blood Venipuncture / Unknown 11/16/2023 9:55 AM EST 11/16/2023 9:59 AM EST Narrative [facility] - 11/16/2023 10:08 AM EST When CBC w/ Auto Diff is ordered the lab will add a Manual Differential as a quality check at no additional charge if: Lymphocytes greater than seventy five percent with normal or increased WBC Monocytes greater than Fifteen percent Basophil greater than four percent Bands >10% or several immature myeloids are seen on scan Blast? Flag noted Atypical Lymph flag noted us Raimundo Pacheco MD LAB BLOOD ORDERABLES Final Res ult [facility] [address] [phone] documented in this encounter Visit Diagnoses Diagnosis Multiple myeloma without remission (HCC)- Primary documented in this encounter Care Teams Nutrition Therapist Relationship Specialty Start Date End Date Clifford Newell PA [address] [place] [address] [place] [id number] PCP - General Physician Electrical Development Engineer 10/14/23 documented as of this encounter
--- OUTSIDE RECORDS SUMMARY | 2024-08-03 17:00 | XMS_ITS | Encounter Summary ---
Author Organization [employer] Address [address] [place] [address] Care Team Providers Care Management Services Technician Name Role Phone Clifford Newell Primary Care Provider + [phone] Reason for Visit * Reason Comments Follow-up F/u with labs and in j Multiple myeloma without remission (HCC) Encounter Details Date Type Department Care Team (Late st Contact Info) Description 10/19/2023 11:30 AM EST Office Visit [facility] - [facility] [address] [place] [address] [address] [place] [address] Raimundo Pacheco MD [address] [place] [address] Multiple myeloma without remission (HCC) [...] Sign Reading Time Taken Comments Blood Pressure 136/70 10/19/2023 11:09 AM EST Pulse 67 10/19/2023 11:09 AM EST Temperature 36.2 ??C (97.2 ??F) 10/19/2023 1 1:09 AM EST Respiratory Rate 18 10/19/2023 11:0 9 AM EST Oxygen Saturation 94% 10/19/2023 11: 09 AM EST Inhaled Oxygen Concentration - - Weight 121.9 kg (268 lb 11.2 oz) 2023 11:09 AM EST Height 172.7 cm (5' 7.99 ) 10/19/2023 1 1:09 AM EST Body Mass Index 40.87 10/19/2023 11:09 AM EST documented in this encounter Progress Notes * Raimundo Pacheco MD - 10/19/2023 11:30 AM EST Chief Complaint: History of Present Illness: Francy Bailey is a 63 y.o. female who presents today for follow up of multiple myeloma. She is on Darzalex single agent with steroids. She cannot tolerate Pomalyst because of severe cytopenias. She denies any new bone pain. She does have chronic bone discomfort. She has had some weakness she is without other new concerns since I last saw her Past Medical History: Diagnosis Date ??? Asthma [...] Summary Treatment goal Palliative Plan Name [facility] Multiple Myeloma - daratumumab (Darzalex) IV d1,8,15,22 fb D1,15 fb d1 + pomalidomide(Pomalyst) PO d1-21 every 28 days Status Active Start Date 11/03/2022 End Date 10/19/2023 Provider Raimundo Pacheco MD Chemotherapy pomalidomide 4 mg Cap, 4 mg, Oral, Daily, 1 of 1 cycle, Start date: --, End date: -- dhxgraiqqtt-ylwdeihnmukfq-bowl (DARZALEX FASPRO) 1,800 mg-30,000 unit/15 mL subcutaneous injection 1,800 mg, 1,800 mg, Subcutaneous, Once, 12 of 12 cycles Administration: 1,800 mg (11/03/2022), 1,800 mg [...] 1 tablet (15 mg total) by mouth in the morning and 1 tablet (15 mg total) at noon and 1 tablet (15 mg total) in the evening. ??? cetirizine (ZyrTEC) 10 MG tablet Take [...] (FLONASE) 50 mcg/actuation nasal spray 2 sprays in the morning. ??? gabapentin (NEURONTIN) 300 MG capsule Take [...] 1 tablet (25 mg total) by mouth in themorning. ??? Mucus Relief ER 600 mg 12 hr tablet Take 2 tablets (1,200 mg total) by mouth in the morning and2 tablets (1,200 mg total) before bedtime. ??? nystatin (MYCOSTATIN) 100,000 unit/mL suspension Take [...] 1 tablet (30 mg total) by mouth in the morning. ??? Pomalyst 2 mg Cap TAKE 1 CAPSULE BY MOUTH DAILY FOR 21 DAYS, THEN 7 DAYS OFF 21 capsule 0 ??? potassium chloride SA (K-DUR,KLOR-CON-M) 20 MEQ tablet Take 1 tablet (20 mEq total) by mouth inthe morning. ??? potassium citrate (UROCIT-K) 5 mEq (540 mg) SR tablet Take 8 tablets (40 mEq total) by mouth. ??? predniSONE (DELTASONE) 20 MG tablet Take 1 tablet (20 mg total) by mouth in the morning. ??? ProAir HFA 90 mcg/actuation inhaler 2 [...] mcg Tab Take 1 tablet by mouth in the morning. ??? Xarelto 20 mg tablet SMARTSI Tablet(s) By Mouth Every Evening ??? [DISCONTINUED] sulfamethoxazole-trimethoprim (BACTRIM DS) 800-160 mg per tablet Take 1 tablet (160 mg of trimethoprim total) by mouth 2 (two) times daily. 10 tablet 0 No current facility-administered medications on file prior to visit. Review of Systems: Review of Systems All other systems reviewed and are negative. Vitals: Vitals: 10/19/23 1109 BP: 136/70 Pulse: 67 Resp: 18 Temp: 97.2 ??F (36.2 ??C) SpO2: 94% Weight: 121.9 kg (268 lb 11.2 oz) Height: 1.727 m (5' 7.99 ) Physical Exam: Physical Exam Vitals reviewed. Constitutional: Appearance: Normal appearance. She is not toxic-appearing. HENT: Head: Normocephalic and atraumatic. Mouth/Throat: Mouth: [...] Abdomen is flat. Bowel sounds are normal. There is no distension. Palpations: Abdomen is soft. Musculoskeletal: General: Normal range of motion. Cervical back: Normal range of motion and neck supple. Neurological: General: No focal deficit present. Mental Status: She is alert. Relevant Results: Lab Patient Walk-In on 10/19/2023 Component Date Value Ref Range Status ??? WBC 10/19/2023 4.2 (L) 4.5 - 12.5 K/??L Final ??? RBC 10/19/2023 3.65 (L) 4.00 - 5.25 M/??L Final ??? Hemoglobin 10/19/2023 12.4 12.0 - 16.0 GM/DL Final ??? Hematocrit 10/19/2023 37.1 36.0 - 46.0 % Final ??? MCV 10/19/2023 102 (H) 80 - 100 fL Final ??? MCH 10/19/2023 34.0 26.0 - 34.0 pg Final ??? MCHC 10/19/2023 33.4 31.0 - 37.0 GM/DL Final ??? RDW 10/19/2023 11.9 (L) 12.0 - 16.8 % Final ??? Platelets 10/19/2023 190 140 - 440 K/CU MM Final ??? MPV 10/19/2023 10.0 7.4 - 10.4 fL Final ??? % Neutros 10/19/2023 61 45 - 80 % Final ??? % Lymphs 10/19/2023 29 15 - 45 % Final ??? % Monos 10/19/2023 8 0 - 10 % Final ??? % Eos 10/19/2023 1 0 - 5 % Final ??? % Baso 10/19/2023 1 0 - 3 % Final ??? # Neutros 10/19/2023 2.55 2.00 - 8.80 K/??L Final ??? # Lymphs 10/19/2023 1.22 0.70 - 5.50 K/??L Final ??? # Monos 10/19/2023 0.35 0.00 - 1.70 K/??L Final ??? # Eos 10/19/2023 0.05 0.00 - 0.80 K/??L Final ??? # Baso 10/19/2023 0.02 0.00 - 0.20 K/??L Final ??? Sodium 10/19/2023 144 136 - 146 meq/L Final ??? Potassium 10/19/2023 4.0 3.5 - 5.1 meq/L Final ??? Chloride 10/19/2023 109 (H) 98 - 108 meq/L Final ??? CO2 10/19/2023 28 22 - 29 meq/L Final ??? Anion Gap 10/19/2023 11 9 - 20 Final ??? BUN 10/19/2023 12 7 - 18 mg/dL Final ??? Creatinine 10/19/2023 1.10 0.60 - 1.10 mg/dL Final ??? BUN/Creatinine 10/19/2023 11 8 - 20 Final ??? Glucose 10/19/2023 90 70 - 105 mg/dL Final ??? Calcium Ionized (mg/dL) 10/19/2023 4.92 4.36 - 5.20 mg/dL Final MM digital mammo screen bilateral Result Date: 10/14/2023 PROCEDURE: Digital screening mammogram. REASON FOR EXAM: Routine screening. FAMILY HISTORY: Weak family history of breast cancer. COMPARISON STUDY: 2021, 2020, 2018 from [facility] FINDINGS: Craniocaudal and mediolateral oblique images of both breasts were obtained. The breast tissue is almost entirely fatty. There is no evidence of dominant mass, architectural distortion, or suspicious calcifications. The mammogram was interpreted with the benefit of computer aided detection (CAD). FINAL IMPRESSION: Stable mammogram. No findings suspicious for malignancy. Bi- RADS: ACR BI-RADS 1: Negative. RECOMMENDATIONS: Annual screening mammography. A letter including results and recommendations was sent to the patient. Density notification was included for patients with pattern 3 or 4 breast tissue. Patient information was entered into a reminder system with a target due date for the next mammogram. At our facility, a [place] marker is positioned over a visible skin [...] deferred because of a normal mammogram report. Cancer Staging No matching staging information was found for the patient. Plan: For now she will continue on the Darzalex 1800 mg subcutaneously premedicate with dexamethasone 20 and Zofran 8 mg orally. She return in about a month. Her free light chain ratio is worthless so we depend on her immunoelectrophoresis to provide me with how the situation is going. Her M spike is rising. When she gets close to 2 g I think we will stop her present treatment and switch to something different. She could receive Velcade and Xpovio or simplicity or carfilzomib. I have answered her questions. I think I would choose the carfilzomib Signed: Electronically signed by RAIMUNDO PACHECO MD 10/19/23 5:46 PM MARILEE Brown ING HOUSE OILER documented in this encounter Plan of Treatment Not on file documented as of this encounter Results * (ABNORMAL) Protein Electrophoresis w Rflx to RALPH(SENDOUT) (11/16/2023 9:55 AM EST) Total Protein, Serum 7.0 6.3 - 8.2 g/dL 11/19/2023 12:35 PM EST [facility] [employer] Albumin 3.47(L) 3.75 - 5.01 g/dL 11/19/2023 12:35 PM EST [facility] Alpha 1 Globulin 0.32 0.19 - 0.46 g/dL 11/19/2023 12:35 PM EST [facility] Alpha 2 Globulin 0.88 0.48 - 1.05 g/dL 11/19/2023 12:35 PM [facility] Beta Globulin 2.07(H) 0.48 - 1.10 g/dL 11/19/2023 12:35 PM EST [facility] Gamma 0.27(L) 0.62 - 1.51 g/dL 11/19/2023 12:35 PM [facility] Immunofixation Reflex ARLPH Done 11/19/2023 12:35 PM [facility] Monoclonal Protein 1.69(H) <=0.00 g/dL 11/19/2023 12:35 PM [facility] SPEP/RALPH Interpretation See Note 11/19/2023 12:35 PM [facility] Comment: Monoclonal spike in the beta region. The quantitation may include complement and/or transferrin components. Measurement of total Immunoglobulin (IgA, IgG, or IgM) can be used for the quantitation of the monoclonal spike instead. Hypogammaglobulinemia. RALPH gel pattern shows an IgA type lambda monoclonal protein with an additional faint band in kappa. EER Serum Protein Electrophoresis Reflex See Note 11/19/2023 12:35 PM [facility] Comment: Authorized individuals can access the [facility] Enhanced Report using the following link: [email or web address] Performed By: [employer] [address] [place] [id number] Ferryboat Operator: Parker Rangel MD, PhD CLIA Number: [id number] Blood Venipuncture / Unknown 11/16/2023 9:55 AM EST 11/16/2023 9:59 AM EST us Raimundo Pacheco MD LAB BLOOD ORDERABLES Final Res ult [facility] [address] [place] [address], [facility] [phone] documented in this encounter Visit Diagnoses Diagnosis Multiple myeloma without remission (HCC) documented in this encounter Care Teams Management Services Technician Relationship Specialty Start Date End Date Clifford Newell PA [address] [place] [address] [place] [address] PCP - General Physician Job Analysis Manager 10/14/23 documented as of this encounter
--- OUTSIDE RECORDS SUMMARY | 2024-08-03 17:00 | XMS_ITS | Encounter Summary ---
Author Organization [employer] Address [address] [place] [address] Care Team Providers Care Cs Associate Name Role Phone Clifford Newell Primary Care Provider + [phone] Reason for Visit * Reason Comments Chemotherapy * Episode Based Medication (Routine) - Authorized Specialty Diagnoses / Procedures Referred By Ana Paula anne Referred To Contact Diagnoses Multiple myeloma without remission (HCC) Procedures DENOSUMAB INJECTION Xgeva/ [id number] Caleb Pacheco MD [address] [place] [address] Phone: tel: fax: [facility] [address] [place] [address] Phone: tel: fax: Referral ID Status Reason Start Date Expiration Date V isits Requested Visits Authorized [id number] Authorized 06/29/2023 05/15/2025 1 198 Encounter Details Date Type Department Care Team (Late st Contact Info) Description 10/19/2023 12:15 PM EST Infusion [facility] [address] [place] [address] Caleb Pacheco MD [address] [place] [address] Multiple myeloma without remission (HCC) [...] Date Kulwant rded Speak language other than Turkmen at home Not on file 10/05/2023 Want [...] of this encounter Progress Notes * Shelby Schilling RN - 10/19/2023 12:15 PM EST Patient tolerated treatment well, discharged home. 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 encounter Plan of Treatment Not on file documented as of this encounter Visit Diagnoses Diagnosis Multiple myeloma without remission (HCC)- Primary documented in this encounter Administered Medications Inactive Administered Medications - up to 3 most recent administrations Medication Order MAR Action Action Date Dose Rate Site acetaminophen (TYLENOL) tablet 650 mg 650 mg Once, oral, On Wed10/19/23 at 1300, For 1 dose, Recommended maximum dose of acetaminophen is 4000 mg from all sources in 24 hoursIndications:Multip le myeloma without remission (HCC) Given 10/19/2023 12:20 PM EST 650 mg daratumumab-hyaluronida se-fihj (DARZALEX FASPRO) 1,800 mg-30,000 unit/15 mL subcutaneous injection 1,800 mg 1,800 mg Once, subcutaneous, at 300 mL/hr, On Wed10/19/23 at 1300, For 1 dose, FLAT DOSING Administer into the subcutaneous tissue of the abdomen about 3 inches to the right or left of the navel over 3-5 minutes. Rotate injection sites for successive injections.Indications: Multiple myeloma without remission (HCC) Given 10/19/2023 12:40 PM EST 1,800 mg 300 mL/hr Abdominal Tissue denosumab (XGEVA) subcutaneous injection 120 mg 120 mg Once, subcutaneous, On Wed10/19/23 at 1300, For 1 dose, * Refrigerated * Bring to room temperature 15 to 30 minutes prior to administration., This medication is restricted to use in outpatients only. Is this patient in outpatient status? YesIndications:Multiple myeloma without remission (HCC) Given 10/19/2023 12:40 PM EST 120 mg Abdominal Tissue diphenhydrAMINE (BENADRYL) capsule 25 mg 25 mg Once, oral, On Wed10/19/23 at 1300, For 1 doseIndications:Multipl e myeloma without remission (HCC) Given 10/19/2023 12:20 PM EST 25 mg documented in this encounter Care Teams Cs Associate Relationship Specialty Start Date End Date Clifford Newell PA [address] [place] [address] [place] [phone] PCP - General Physician Technician Automatic 10/14/23 documented as of this encounter
--- OUTSIDE RECORDS SUMMARY | 2024-08-03 17:00 | XMS_ITS | Encounter Summary ---
Author Organization [employer] Address [address] [place] [address] Care Team Providers Care Bee Producer Name Role Phone Clifford Newell Primary Care Provider + [phone] Encounter Details Date Type Department Care Team (Latest Contact Info) Description 01/11/2024 Travel Social History Tobacco Use Types Packs/Day [...] on filedocumented in this encounter Care Teams Bee Producer Relationship Specialty Start Date End Date Clifford Newell PA [address] [place] [address] [place] [phone] PCP - General Physician Freight Dispatcher 10/14/23 documented as of this encounter
--- OUTSIDE RECORDS SUMMARY | 2024-08-03 17:00 | XMS_ITS | Encounter Summary ---
Author Organization [employer] Address [address] [place] [address] Care Team Providers Care Machine Assembler For Puller Over Name Role Phone Clifford Newell Primary Care Provider + [phone] Reason for Visit * Reason Onset Date Comments Medication Refill 10/19/2023 Encounter Details Date Type Department Care Team (Late st Contact Info) Description 10/19/2023 Refill [facility] [address] [facility] [address] [place] [address] Caleb Pacheco MD [address] [place] [address] Social History Tobacco Use Types [...] Date Kulwant rded Speak language other than French at home Not on file 10/05/2023 Want [...] Telephone Encounter - Wolfgang Godinez RN - 10/19/2023 1:00 PM EST Resent fluconazole to [facility] in [place] per pt request. 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
--- OUTSIDE RECORDS SUMMARY | 2024-08-03 17:00 | XMS_ITS | Encounter Summary ---
Author Organization [employer] Address [address] [place] [address] Care Team Providers Care Skin Specialist Name Role Phone Clifford Newell Primary Care Provider + [phone] Encounter Details Date Type Department Care Team (Latest Contact Info) Description 10/19/2023 11:15 AM EST Lab Patient Walk-In [place] [facility] - [facility] [address] [facility] [place] [address] [place] [address] Caleb Pacheco MD [address] [facility] [address] [place] [address] Multiple myeloma without remission (HCC) [...] Associated Diagnosis Comments IMMUNOFIX ELECTROPHORESIS BILL(SENDOUT) Routine 10/19/2023 11:08 AM EST Multiple myeloma without remission (HCC) CBC W/ AUTO DIFF Routine 10/19/2023 11:0 8 AM EST Multiple myeloma without remission (HCC) ONOCOLOGY CHEMISTRY PANEL Routine 10/19/2023 11:08 AM EST Multiple myeloma without remission (HCC) PROTEIN ELECTROPHORESIS W RFLX TO RALPH(SENDOUT) Routine 10/19/2023 11:08 AM EST Multiple myeloma without remission (HCC) [place]AM[place]DA QUANT FLC WITH RATIO(SENDOUT) Routine 10/19/2023 11:08 AM EST Multiple myeloma without remission (HCC) IMMUNOGLOBULIN M(SENDOUT) Routine 10/19/2023 11:08 AM EST Multiple myeloma without remission (HCC) IMMUNOGLOBULIN G(SENDOUT) Routine 10/19/2023 11:08 AM EST Multiple myeloma without remission (HCC) IMMUNOGLOBULIN A(SENDOUT) Routine 10/19/2023 11:08 AM EST Multiple myeloma without remission (HCC) documented in this encounter Results * (ABNORMAL) Immunoglobulin A(SENDOUT) (10/19/2023 11:08 AM EST) Immunoglobulin A 977(H) 68 - 408 mg/dL 10/22/2023 9:44 AM EST [facility] Comment: Performed By: [facility] [address] [place] [address] Batch Room Technician: Parker Rangel MD, PhD CLIA Number: [id number] Blood Venipuncture / Unknown 10/19/2023 11:08 AM EST 10/19/2023 11:21 AM EST Caleb Pacheco MD LAB BLOOD ORDERABLES Final Res ult Performing Organization Address [facility]/ZIP Co de Phone Number [facility] [address] [place] [address] * (ABNORMAL) Immunoglobulin M(SENDOUT) (10/19/2023 11:08 AM EST) Immunoglobulin M <10(L) 35 - 263 mg/dL 10/22/2023 9:44 AM EST [facility] Comment: Performed By: [facility] [address] [place] [address] Batch Room Technician: Parker Rangel MD, PhD CLIA Number: [id number] Blood Venipuncture / Unknown 10/19/2023 11:08 AM EST 10/19/2023 11:21 AM EST Caleb Pacheco MD LAB BLOOD ORDERABLES Final Res ult Performing Organization Address City/[facility]/ZIP Co de Phone Number [facility] [address] [place] [address] * (ABNORMAL) Immunoglobulin G(SENDOUT) (10/19/2023 11:08 AM EST) Pathologist [facility] [place] Immunoglobulin G 226(L) 768 - 1632 mg/dL 10/22/2023 9:44 AM EST [facility] Comment: Performed By: [facility] [address] [place] [address] Batch Room Technician: Parker Rangel MD, PhD CLIA Number: [id number] Blood Venipuncture / Unknown 10/19/2023 11:08 AM EST 10/19/2023 11:21 AM EST Caleb Pacheco MD LAB BLOOD ORDERABLES Final Res ult Performing Organization Address [facility] de Phone Number [address] [phone] * [employer] Electrophoresis Bill(SENDOUT) (10/19/2023 11:08 AM EST) [facility] Immunofix Electrophoresis Bill Billed 10/22/2023 9:36 AM EST [facility] Comment: Performed By: [facility] [address] [place] [address] Batch Room Technician: Parker Rangel MD, PhD CLIA Number: [id number] Blood Venipuncture / Unknown 10/19/2023 11:08 AM EST 10/19/2023 11:21 AM EST Caleb Pacheco MD LAB BLOOD ORDERABLES Final Res ult Performing Organization Address [facility] de Phone Number [address] [phone] * (ABNORMAL) Protein Electrophoresis w Rflx to RALPH(SENDOUT) (10/19/2023 11:08 AM EST) [facility] Total Protein, Serum 6.4 6.3 - 8.2 g/dL 10/22/2023 9:36 AM EST [facility] Albumin 3.37(L) 3.75 - 5.01 g/dL 10/22/2023 9:36 AM EST [facility] Alpha 1 Globulin 0.27 0.19 - 0.46 g/dL 10/22/2023 9:36 AM EST [facility] Alpha 2 Globulin 0.78 0.48 - 1.05 g/dL 10/22/2023 9:36 AM [facility] Beta Globulin 1.74(H) 0.48 - 1.10 g/dL 10/22/2023 9:36 AM EST [facility] Gamma 0.24(L) 0.62 - 1.51 g/dL 10/22/2023 9:36 AM [facility] Immunofixation Reflex RALPH Done 10/22/2023 9:36 AM [facility] Monoclonal Protein 1.40 g/dL 2023 9:36 AM [facility] SPEP/RALPH Interpretation See Note 10/22/2023 9:36 AM [facility] Comment: Monoclonal spike in the beta region. The quantitation may include complement and/or transferrin components. Measurement of total Immunoglobulin (IgA, IgG, or IgM) can be used for the quantitation of the monoclonal spike instead. Hypogammaglobulinemia. RALPH gel pattern shows an IgA type lambda monoclonal protein with an additional faint band in IgG kappa. EER Serum Protein Electrophoresis Reflex See Note 10/22/2023 9:36 AM [facility] Comment: Authorized individuals can access the [facility] Enhanced Report using the following link: [email or web address] Performed By: [facility] [address] [place] [address] Batch Room Technician: Parker Rangel MD, PhD CLIA Number: [id number] Blood Venipuncture / Unknown 10/19/2023 11:08 AM EST 10/19/2023 11:21 AM EST us Caleb Pacheco MD LAB BLOOD ORDERABLES Final Res ult [facility] [address] [place] [address], [facility] [phone] * (ABNORMAL) [place]-Lambda Quant FLC with Ratio(SENDOUT) (10/19/2023 11:08 AM EST) [place] Qnt Free Light Chains 5.00 3.30 - 19.40 mg/L 10/21/2023 12:22 AM EST [facility] Comment: INTERPRETIVE INFORMATION: [place] Qnt Free Light Chains Undetected antigen excess is a rare event but cannot be excluded. Free light chain results should always be interpreted in conjunction with other clinical and laboratory findings. Lambda Qnt Free Light Chains 20.58 5.71 - 26.30 mg/L 10/21/2023 12:22 AM EST [facility] Comment: INTERPRETIVE INFORMATION: Lambda Qnt Free Light Chains Undetected antigen excess is a rare event but cannot be excluded. Free light chain results should always be interpreted in conjunction with other clinical and laboratory findings. [place]/Lambda Free Light Chain Ratio 0.24(L) 0.26 - 1.65 10/21/2023 12:22 AM EST [facility] Comment: Performed By: [facility] [address] [place] [address] Batch Room Technician: Parker Rangel MD, PhD CLIA Number: [id number] Blood Venipuncture / Unknown 10/19/2023 11:08 AM EST 10/19/2023 11:21 AM EST us Caleb Pacheco MD LAB BLOOD ORDERABLES Final Res ult [facility] [address] [place] [address], [facility] [phone] * (ABNORMAL) Oncology Chemistry Panel (10/19/2023 11:08 AM EST) Sodium 144 136 - 146 meq/L 10/19/2023 11:28 AM EST [facility] Potassium 4.0 3.5 - 5.1 meq/L 10/19/2023 11:28 AM EST [facility] Chloride 109(H) 98 - 108 meq/L 10/19/2023 11:28 AM EST [facility] CO2 28 22 - 29 meq/L 10/19/2023 11:28 AM EST [facility] Anion Gap 11 9 - 20 10/19/2023 11:28 AM EST [facility] BUN 12 7 - 18 mg/dL 10/19/2023 11:28 AM EST [facility] Creatinine 1.10 0.60 - 1.10 mg/dL 10/19/2023 11:28 AM EST [facility] BUN/Creatinine 11 8 - 20 10/19/2023 11:28 AM EST [facility] Glucose 90 70 - 105 mg/dL 10/19/2023 11:28 AM EST [facility] Calcium Ionized (mg/dL) 4.92 4.36 - 5.20 mg/dL 10/19/2023 11:28 AM EST [facility] Blood Venipuncture / Unknown 10/19/2023 11:08 AM EST 10/19/2023 11:21 AM EST us Caleb Pacheco MD LAB BLOOD ORDERABLES Final Res ult [facility] [address] [place] [address], [facility] [phone] * (ABNORMAL) CBC with automated diff (10/19/2023 11:08 AM EST) WBC 4.2(L) 4.5 - 12.5 K/??L 10/19/2023 11:25 AM EST [facility] RBC 3.65(L) 4.00 - 5.25 M/??L 10/19/2023 11:25 AM EST [facility] Hemoglobin 12.4 12.0 - 16.0 GM/DL 10/19/2023 11:25 AM EST [facility] Hematocrit 37.1 36.0 - 46.0 % 10/19/2023 11:25 AM EST [facility] MCV 102(H) 80 - 100 fL 10/19/2023 11:25 AM EST [facility] MCH 34.0 26.0 - 34.0 pg 10/19/2023 11:25 AM EST [facility] MCHC 33.4 31.0 - 37.0 GM/DL 10/19/2023 11:25 AM EST [facility] RDW 11.9(L) 12.0 - 16.8 % 10/19/2023 11:25 AM EST [facility] Platelets 190 140 - 440 K/CU MM 10/19/2023 11:25 AM EST [facility] MPV 10.0 7.4 - 10.4 fL 10/19/2023 11:25 AM EST [facility] % Neutros 61 45 - 80 % 10/19/2023 11:25 AM EST [facility] % Lymphs 29 15 - 45 % 10/19/2023 11:25 AM EST [facility] % Monos 8 0 - 10 % 10/19/2023 11:25 AM EST [facility] % Eos 1 0 - 5 % 10/19/2023 11:25 AM EST [facility] % Baso 1 0 - 3 % 10/19/2023 11:25 AM EST [facility] # Neutros 2.55 2.00 - 8.80 K/??L 10/19/2023 11:25 AM EST [facility] # Lymphs 1.22 0.70 - 5.50 K/??L 10/19/2023 11:25 AM EST [facility] # Monos 0.35 0.00 - 1.70 K/??L 10/19/2023 11:25 AM EST [facility] # Eos 0.05 0.00 - 0.80 K/??L 10/19/2023 11:25 AM EST [facility] # Baso 0.02 0.00 - 0.20 K/??L 10/19/2023 11:25 AM EST [facility] Blood Venipuncture / Unknown 10/19/2023 11:08 AM EST 10/19/2023 11:21 AM EST Narrative [facility] - 10/19/2023 11:25 AM EST When CBC w/ Auto Diff [...] Res ult [facility] [address] [phone] documented in this encounter Visit Diagnoses Diagnosis Multiple myeloma without remission (HCC) documented in this encounter Care Teams Skin Specialist Relationship Specialty Start Date End Date Clifford Newell PA [address] [place] [phone] PCP - General Physician Cleaner And Polisher 10/14/23 documented as of this encounter
--- OUTSIDE RECORDS SUMMARY | 2024-08-03 17:00 | XMS_ITS | Encounter Summary ---
Author Organization [employer] [facility] Address [address] [place] [address] Care Team Providers Care Middleware Engineer Name Role Phone Clifford Newell Primary Care Provider + [phone] Reason for Visit * Reason Comments Injections * Episode Based Medication (Routine) - Authorized Specialty Diagnoses / Procedures Referred By Ana Paula anne Referred To Contact Diagnoses Multiple myeloma without remission (HCC) Procedures DENOSUMAB INJECTION Xgeva/ [id number] Caleb Pacheco MD [address] [place] [address] Phone: tel: fax: [place] [facility] [address] [place] [address] Phone: tel: fax:[phone] Referral ID Status Reason Start Date Expiration Date V isits Requested Visits Authorized [id number] Authorized 06/29/2023 05/15/2025 1 198 Encounter Details Date Type Department Care Team (Late st Contact Info) Description 12/14/2023 3:00 PM EDT Infusion [place] [facility] [address] [place] [address] Lico Rogers MD [address] [place] [address] Multiple myeloma without remission (HCC) [...] Date Kulwant rded Speak language other than Estonian at home Not on file 10/05/2023 Want [...] Progress Notes * Myla Franco RN - 12/14/2023 3:00 PM EDTSummary: discharge 1650: Tolerated injections. DC home. documented in this encounter Plan of Treatment Not on file documented as of this encounter Results * (ABNORMAL) Comprehensive metabolic panel (12/14/2023 3:00 PM EDT) Sodium 141 136 - 146 meq/L 12/14/2023 3:56 PM EDT [facility] Potassium 3.7 3.5 - 5.1 meq/L 12/14/2023 3:56 PM EDT [facility] Chloride 108 102 - 112 meq/L 12/14/2023 3:56 PM EDT [facility] CO2 27 21 - 32 meq/L 12/14/2023 3:56 PM EDT [facility] Calcium 9.7 8.5 - 10.1 mg/dL 12/14/2023 3:56 PM EDT [facility] Glucose 111(H) 74 - 106 mg/dL 12/14/2023 3:56 PM EDT [facility] BUN 14 7 - 22 mg/dL 12/14/2023 3:56 PM EDT [facility] Creatinine 1.14(H) 0.55 - 1.02 mg/dL 12/14/2023 3:56 PM EDT [facility] BUN/Creatinine 12 8 - 20 12/14/2023 3:56 PM EDT [facility] Albumin 3.0(L) 3.4 - 5.0 g/dL 12/14/2023 3:56 PM EDT [facility] Alkaline Phosphatase 51 27 - 136 U/L 12/14/2023 3:56 PM EDT [facility] ALT 16 12 - 78 U/L 12/14/2023 3:56 PM EDT [facility] AST 10 5 - 37 U/L 12/14/2023 3:56 PM EDT [facility] Total Bilirubin 0.3 0.2 - 1.3 mg/dL 12/14/2023 3:56 PM EDT [facility] Protein, Total 7.4 6.4 - 8.2 gm/dL 12/14/2023 3:56 PM EDT [facility] Anion Gap 10 9 - 20 12/14/2023 3:56 PM EDT [facility] A/G Ratio 0.7(L) 1.1 - 2.5 12/14/2023 3:56 PM EDT [facility] Globulin 4.4 1.5 - 4.5 g/dL 12/14/2023 3:56 PM EDT [facility] Osmolality Calc 282.4 3:56 PM EDT [facility] eGFR (mL/min/1.73m2) 54(L) >=60 mL/min/1.7 3m2 12/14/2023 3:56 PM EDT [facility] Comment:ESTIMATED GFR IS NOT ACCURATE CREATININE CLEARANCE IN PREDICTING GLOMERULAR FILTRATION RATE. ESTIMATED GFR IS NOT APPLICABLE FOR DIALYSIS PATIENTS. Blood Venipuncture / Unknown 12/14/2023 3:00 PM EDT 12/14/2023 3:03 PM EDT us Lico Rogers MD LAB BLOOD ORDERABLES Final Res ult Performing Organization Address City/State/[facility] Co de Phone Number [facility] [address] [place] [address] * (ABNORMAL) CBC with Automated Diff (12/14/2023 [...] Final Res ult [facility] [address] [place] [address], [facility] [phone] documented in this encounter Visit Diagnoses Diagnosis Multiple myeloma without remission (HCC)- Primary documented in this encounter Administered Medications Inactive Administered Medications - up to 3 most recent administrations Medication Order MAR Action Action Date Dose Rate Site acetaminophen (TYLENOL) tablet 650 mg 650 mg Once, oral, On Wed12/14/23 at 1630, For 1 dose, Recommended maximum dose of acetaminophen is 4000 mg from all sources in 24 hoursIndications:Multip le myeloma without remission (HCC) Given 12/14/2023 4:18 PM EDT 650 mg daratumumab-hyaluronida se-fihj (DARZALEX FASPRO) 1,800 mg-30,000 unit/15 mL subcutaneous injection 1,800 mg 1,800 mg Once, subcutaneous, at 300 mL/hr, On Wed12/14/23 at 1630, For 1 dose, FLAT DOSING Administer into the subcutaneous tissue of the abdomen about 3 inches to the right or left of the navel over 3-5 minutes. Rotate injection sites for successive injections.Indications: Multiple myeloma without remission (HCC) Given 12/14/2023 4:42 PM EDT 1,800 mg 300 mL/hr Abdominal Tissue denosumab (XGEVA) subcutaneous injection 120 mg 120 mg Once, subcutaneous, On Wed12/14/23 at 1630, For 1 dose, * Refrigerated * Bring to room temperature 15 to 30 minutes prior to administration., This medication is restricted to use in outpatients only. Is this patient in outpatient status? YesIndications:Multiple myeloma without remission (HCC) Given 12/14/2023 4:42 PM EDT 120 mg Abdominal Tissue diphenhydrAMINE (BENADRYL) capsule 25 mg 25 mg Once, oral, On Wed12/14/23 at 1630, For 1 doseIndications:Multipl e myeloma without remission (HCC) Given 12/14/2023 4:18 PM EDT 25 mg documented in this encounter Care Teams Middleware Engineer Relationship Specialty Start Date End Date Clifford Newell PA [address] [place] [address] [place] [address] PCP - General Physician Assistant Refinery Operator 10/14/23 documented as of this encounter
--- OUTSIDE RECORDS SUMMARY | 2024-08-03 17:00 | XMS_ITS | Encounter Summary ---
Author Organization [employer] [facility] Address [address] [place] [address] Care Team Providers Care Boiler Welder Name Role Phone Clifford Newell Primary Care Provider + [phone] Reason for Visit * Reason Onset Date Comments Medication Refill 01/19/2024 Encounter Details Date Type Department Care Team (Late st Contact Info) Description 01/19/2024 Refill [place] [facility] [address] [facility] [address] [place] [address] Caleb Pacheco MD [address] [place] [address] Social History Tobacco Use Types [...] Date Kulwant rded Speak language other than Luxembourgish at home Not on file 10/05/2023 Want [...] Telephone Encounter - Nicki Thurston RN - 01/19/2024 2:42 PM EDT Prescription Refill Name/Strength/Directions: Oxycodone 10 mg every 4hrs PRN Quantity:#100 Last Fill Date/Provider:11/16/23 Dr. Pahceco Last Appt:12/14/23 Next Appt:01/20/24 Requested Pharmacy:[facility] Refill does not meet protocol. , Medication pended for MD to send. documented in this encounter Plan of Treatment Not on file documented as of this encounter Visit Diagnoses Not on filedocumented in this encounter Care Teams Boiler Welder Relationship Specialty Start Date End Date Clifford Newell PA [address] [place] [address] JERAD Ling [phone] PCP - General Physician Multimedia Services Coordinator 10/14/23 documented as of this encounter
--- OUTSIDE RECORDS SUMMARY | 2024-08-03 17:00 | XMS_ITS | Encounter Summary ---
Author Organization [employer] Address [address] [place] [address] Care Team Providers Care Ultrasound Technol Name Role Phone Clifford Newell Primary Care Provider + [phone] Reason for Visit * Reason Comments Injections * Episode Based Medication (Routine) - Closed Specialty Diagnoses / Procedures Referred By Ana Paula anne Referred To Contact Diagnoses Multiple myeloma without remission (HCC) Procedures [place] DARATUMUMAB, HYALURONIDASE [id number]-[id number] Caleb Pacheco MD [address] [facility] [address] [place] [address] Phone: tel: fax: [facility] [address] [address] [place] [address] Phone: tel: fax: Referral ID Status Reason Start Date Expiration Date Visits Re quested Visits Authorized [id number] Closed 10/20/2022 05/14/2024 1 100 Encounter Details Date Type Department Care Team (Late st Contact Info) Description 01/11/2024 10:30 AM EDT Infusion [facility] [address] [place] [address] Caleb Pacheco MD [address] [facility] [address] [place] [address] Multiple myeloma without remission (HCC) [...] Date Kulwant rded Speak language other than Marshallese at home Not on file 10/05/2023 Want [...] Progress Notes * Myla Franco RN - 01/11/2024 10:30 AM EDTSummary: discharge 1220: Injections given. Patient tolerated well. Discharged home. Patient next appt is 02/11 with . Told patient he would not be back then, and that Radha will be calling her to reschedule her appt. She understood. SM documented in this encounter Plan of Treatment Not on file documented as of this encounter Procedures Procedure Name Priority Date/Time Associated Diagnosis Comments CBC W/ AUTO DIFF STAT 01/11/2024 10:5 3 AM EDT Multiple myeloma without remission (HCC) ONOCOLOGY CHEMISTRY PANEL Routine 01/11/2024 10:53 AM EDT Multiple myeloma without remission (HCC) MONOCLONAL PROTEIN STUDY, EXPANDED PANEL(SENDOUT) Routine 01/11/2024 10:53 AM EDT Multiple myeloma without remission (HCC) HEPATIC FUNCTION PANEL Routine 01/11/2024 10:53 AM EDT Multiple myeloma without remission (HCC) documented in this encounter Results * (ABNORMAL) LFTs (01/11/2024 10:53 AM EDT) Protein, Total 7.8 6.4 - 8.2 gm/dL 01/11/2024 12:03 PM EDT [facility] Albumin 3.1(L) 3.4 - 5.0 g/dL 01/11/2024 12:03 PM EDT [facility] Total Bilirubin 0.4 0.2 - 1.3 mg/dL 01/11/2024 12:03 PM EDT [facility] Bilirubin, Direct <0.1 0.0 - 0.2 mg/dL 01/11/2024 12:03 PM EDT [facility] Alkaline Phosphatase 51 27 - 136 U/L 01/11/2024 12:03 PM EDT [facility] Globulin 4.7(H) 1.5 - 4.5 g/dL 01/11/2024 12:03 PM EDT [facility] A/G Ratio 0.7(L) 1.1 - 2.5 01/11/2024 12:03 PM EDT [facility] AST 18 5 - 37 U/L 01/11/2024 12:03 PM EDT [facility] Comment:[employer] has become aware of sulfasalazine and sulfapyridine [...] 12 - 78 U/L 01/11/2024 12:03 PM EDT [facility] Comment:[employer] has become aware of sulfasalazine and sulfapyridine [...] [facility] [address] [phone] * (ABNORMAL) ONC BMP (01/11/2024 10:53 AM [...] ult [facility] [address] [place] [address], [facility] [phone] * (ABNORMAL) Monoclonal Protein Study, Expanded Panel(SENDOUT) (01/11/2024 10:53 AM EDT) Total Protein, Serum 7.3 6.3 - 8.2 g/dL 01/13/2024 8:59 PM EDT [facility] Albumin 3.28(L) 3.75 - 5.01 g/dL 01/13/2024 8:59 PM EDT [facility] Alpha 1 Globulin 0.32 0.19 - 0.46 g/dL 01/13/2024 8:59 PM EDT [facility] Alpha 2 Globulin 0.82 0.48 - 1.05 g/dL 01/13/2024 8:59 PM EDT [facility] Beta Globulin 2.64(H) 0.48 - 1.10 g/dL 01/13/2024 8:59 PM EDT [facility] Gamma 0.24(L) 0.62 - 1.51 g/dL 01/13/2024 8:59 PM EDT [facility] Immunofixation RALPH Done 01/13/2024 8:59 PM EDT [facility] Immunoglobulin G 213(L) 768 - 1632 mg/dL 01/13/2024 8:59 PM EDT [facility] Immunoglobulin A 1728(H) 68 - 408 mg/dL 01/13/2024 8:59 PM EDT [facility] Immunoglobulin M 14(L) 35 - 263 mg/dL 01/13/2024 8:59 PM EDT [facility] Monoclonal Protein 2.28(H) <=0.00 g/dL 01/13/2024 8:59 PM EDT [facility] [place] Qnt Free Light Chains 4.50 3.30 - 19.40 mg/L 01/13/2024 8:59 PM EDT [facility] Comment: INTERPRETIVE INFORMATION: [place] Qnt Free Light Chains Undetected antigen excess is a rare event but cannot be excluded. Free light chain results should always be interpreted in conjunction with other clinical and laboratory findings. Lambda Qnt Free Light Chains 55.72(H) 5.71 - 26.30 mg/L 01/13/2024 8:59 PM EDT [facility] Comment: INTERPRETIVE INFORMATION: Lambda Qnt Free Light Chains Undetected antigen excess is a rare event but cannot be excluded. Free light chain results should always be interpreted in conjunction with other clinical and laboratory findings. [place]/Lambda Free Light Chain Ratio 0.08(L) 0.26 - 1.65 01/13/2024 8:59 PM EDT [facility] SPEP/RALPH Interpretation See Note 01/13/2024 8:59 PM EDT [facility] Comment: Monoclonal spike in the beta region. [...] Serum See Note 01/13/2024 8:59 PM EDT [facility] Comment: Authorized individuals can access the [facility] Enhanced Report using the following link: [email or web address] Performed By: [facility] [address] [place] [address] Microcomputer Support Specialist: Parker Rangel MD, PhD CLIA Number: [id number] Blood ENTIRE RIGHT UPPER ARM / Unknown Venipuncture / Unknown 01/11/2024 10:53 AM EDT 01/11/2024 11:09 AM EDT us Lico Rogers MD LAB BLOOD ORDERABLES Final Res ult [facility] [address] [place] [address], [facility] [phone] * (ABNORMAL) CBC with Automated Diff (01/11/2024 10:53 AM EDT) WBC 4.5 4.5 - 12.5 K/??L 01/11/2024 11:18 AM EDT [facility] RBC 3.71(L) 4.00 - 5.25 M/??L 01/11/2024 11:18 AM EDT [facility] Hemoglobin 12.3 12.0 - 16.0 GM/DL 01/11/2024 11:18 AM EDT [facility] Hematocrit 39.0 36.0 - 46.0 % 01/11/2024 11:18 AM EDT [facility] MCV 105(H) 80 - 100 fL 01/11/2024 11:18 AM EDT [facility] MCH 33.2 26.0 - 34.0 pg 01/11/2024 11:18 AM EDT [facility] MCHC 31.5 31.0 - 37.0 GM/DL 01/11/2024 11:18 AM EDT [facility] RDW 12.7 12.0 - 16.8 % 01/11/2024 11:18 AM EDT [facility] Platelets 180 140 - 440 K/CU MM 01/11/2024 11:18 AM EDT [facility] MPV 9.8 7.4 - 10.4 fL 01/11/2024 11:18 AM EDT [facility] % Neutros 47 45 - 80 % 01/11/2024 11:18 AM EDT [facility] % Lymphs 40 15 - 45 % 01/11/2024 11:18 AM EDT [facility] % Monos 12(H) 0 - 10 % 01/11/2024 11:18 AM EDT [facility] % Eos 1 0 - 5 % 01/11/2024 11:18 AM EDT [facility] % Baso 0 0 - 3 % 01/11/2024 11:18 AM EDT [facility] # Neutros 2.12 2.00 - 8.80 K/??L 01/11/2024 11:18 AM EDT [facility] # Lymphs 1.78 0.70 - 5.50 K/??L 01/11/2024 11:18 AM EDT [facility] # Monos 0.53 0.00 - 1.70 K/??L 01/11/2024 11:18 AM EDT [facility] # Eos 0.06 0.00 - 0.80 K/??L 01/11/2024 11:18 AM EDT [facility] # Baso 0.01 0.00 - 0.20 K/??L 01/11/2024 11:18 AM EDT [facility] Blood ENTIRE RIGHT UPPER ARM / Unknown Venipuncture / Unknown 01/11/2024 10:53 AM EDT 01/11/2024 11:09 AM EDT Narrative [facility] - 01/11/2024 11:18 AM EDT When CBC w/ Auto Diff [...] ult [facility] [address] [phone] documented in this encounter Visit Diagnoses Diagnosis Multiple myeloma without remission (HCC)- Primary documented in this encounter Administered Medications Inactive Administered Medications - up to 3 most recent administrations Medication Order MAR Action Action Date Dose Rate Site acetaminophen (TYLENOL) tablet 650 mg 650 mg Once, oral, On Wed01/11/24 at 1200, For 1 dose, Recommended maximum dose of acetaminophen is 4000 mg from all sources in 24 hoursIndications:Multip le myeloma without remission (HCC) Given 01/11/2024 12:04 PM EDT 650 mg daratumumab-hyaluronida se-fihj (DARZALEX FASPRO) 1,800 mg-30,000 unit/15 mL subcutaneous injection 1,800 mg 1,800 mg Once, subcutaneous, at 300 mL/hr, On Wed01/11/24 at 1200, For 1 dose, FLAT DOSING Administer into the subcutaneous tissue of the abdomen about 3 inches to the right or left of the navel over 3-5 minutes. Rotate injection sites for successive injections.Indications: Multiple myeloma without remission (HCC) Given 01/11/2024 12:13 PM EDT 1,800 mg 300 mL/hr Abdominal Tissue denosumab (XGEVA) subcutaneous injection 120 mg 120 mg Once, subcutaneous, On Wed01/11/24 at 1200, For 1 dose, * Refrigerated * Bring to room temperature 15 to 30 minutes prior to administration., This medication is restricted to use in outpatients only. Is this patient in outpatient status? YesIndications:Multiple myeloma without remission (HCC) Given 01/11/2024 12:13 PM EDT 120 mg Left Arm diphenhydrAMINE (BENADRYL) capsule 25 mg 25 mg Once, oral, On Wed01/11/24 at 1200, For 1 doseIndications:Multipl e myeloma without remission (HCC) Given 01/11/2024 12:05 PM EDT 25 mg documented in this encounter Care Teams Ultrasound Technol Relationship Specialty Start Date End Date Clifford Newell, MARILEE [address] [place] [address] [place] [address] PCP - General Physician Bottle Blowing Machine Tender 10/14/23 documented as of this encounter
--- OUTSIDE RECORDS SUMMARY | 2024-08-03 17:00 | XMS_ITS | Encounter Summary ---
Author Organization [employer] Address [address] [place] [address] Care Team Providers Care Product Manager Financial Services Name Role Phone Clifford Newell Primary Care Provider + [phone] Encounter Details Date Type Department Care Team (Latest Contact Info) Description 10/19/2023 Travel Social History Tobacco Use Types Packs/Day [...] on filedocumented in this encounter Care Teams Product Manager Financial Services Relationship Specialty Start Date End Date Clifford Newell PA [address] [place] [address] [place] [phone] PCP - General Physician Air Transportation Provider 10/14/23 documented as of this encounter
--- OUTSIDE RECORDS SUMMARY | 2024-08-03 17:00 | XMS_ITS | Encounter Summary ---
Author Organization [employer] Address [address] [place] [address] Care Team Providers Care Building Supplies Salesperson Retail Name Role Phone Clifford Newell Primary Care Provider + [phone] Encounter Details Date Type Department Care Team (Late st Contact Info) Description 02/10/2024 Orders Only [facility] - [facility] [address] [place] [address] Caleb Pacheco MD [address] [facility] [address] [place] [address] Multiple myeloma without remission (HCC) [...] Rflx to RALPH(SENDOUT) (02/17/2024 10:03 AM EDT) Total Protein, Serum 7.8 6.3 - 8.2 g/dL 02/21/2024 11:07 AM EDT [facility] Albumin 3.15(L) 3.75 - 5.01 g/dL 02/21/2024 11:07 AM EDT [facility] Alpha 1 Globulin 0.34 0.19 - 0.46 g/dL 02/21/2024 11:07 AM EDT [facility] Alpha 2 Globulin 0.78 0.48 - 1.05 g/dL 02/21/2024 11:07 AM EDT [facility] Beta Globulin 3.31(H) 0.48 - 1.10 g/dL 02/21/2024 11:07 AM EDT [facility] Gamma 0.22(L) 0.62 - 1.51 g/dL 02/21/2024 11:07 AM EDT [facility] Immunofixation Reflex RALPH Done 02/21/2024 11:07 AM EDT [facility] Monoclonal Protein 2.92(H) <=0.00 g/dL 02/21/2024 11:07 AM EDT [facility] SPEP/RALPH Interpretation See Note 02/21/2024 11:07 AM EDT [facility] Comment: Monoclonal spike in the beta [...] Electrophoresis Reflex See Note 02/21/2024 11:07 AM EDT [facility] Comment: Authorized individuals can access the [facility] Enhanced Report using the following link: [email or web address] Performed By: [facility] [address] [place] [address] Commissioner Of Internal Revenue: Parker Rangel MD, PhD CLIA Number: [id number] Blood Venipuncture / Unknown 02/17/2024 10:03 AM EDT 02/17/2024 10:07 AM EDT us Caleb Pacheco MD LAB BLOOD ORDERABLES Final Res ult [facility] [address] [place] [address], [facility] [phone] * (ABNORMAL) [place]-Lambda Quant FLC with Ratio(SENDOUT) (02/17/2024 10:03 AM EDT) [place] Qnt Free Light Chains 3.66 3.30 - 19.40 mg/L 02/19/2024 1:41 AM EDT [facility] Comment: INTERPRETIVE INFORMATION: [place] Qnt Free Light Chains Undetected antigen excess is a rare event but cannot be excluded. Free light chain results should always be interpreted in conjunction with other clinical and laboratory findings. Lambda Qnt Free Light Chains 104.55(H) 5.71 - 26.30 mg/L 02/19/2024 1:41 AM EDT [facility] Comment: INTERPRETIVE INFORMATION: Lambda Qnt Free Light Chains Undetected antigen excess is a rare event but cannot be excluded. Free light chain results should always be interpreted in conjunction with other clinical and laboratory findings. [place]/Lambda Free Light Chain Ratio 0.04(L) 0.26 - 1.65 02/19/2024 1:41 AM EDT [facility] Comment: Performed By: [facility] [address] [place] [address] Commissioner Of Internal Revenue: Parker Rangel MD, PhD CLIA Number: [id number] Blood Venipuncture / Unknown 02/17/2024 10:03 AM EDT 02/17/2024 10:07 AM EDT us Caleb Pacheco MD LAB BLOOD ORDERABLES Final Res ult [facility] [address] [place] [address], [facility] [phone] * (ABNORMAL) Comprehensive metabolic panel (02/17/2024 10:03 AM EDT) Sodium 140 136 - 146 meq/L 02/17/2024 11:43 AM EDT [facility] Potassium 3.6 3.5 - 5.1 meq/L 02/17/2024 11:43 AM EDT [facility] Chloride 108 102 - 112 meq/L 02/17/2024 11:43 AM EDT [facility] CO2 27 21 - 32 meq/L 02/17/2024 11:43 AM EDT [facility] Calcium 9.9 8.5 - 10.1 mg/dL 02/17/2024 11:43 AM EDT [facility] Glucose 106 74 - 106 mg/dL 02/17/2024 11:43 AM EDT [facility] BUN 16 7 - 22 mg/dL 02/17/2024 11:43 AM EDT [facility] Creatinine 1.09(H) 0.55 - 1.02 mg/dL 02/17/2024 11:43 AM EDT [facility] BUN/Creatinine 15 8 - 20 02/17/2024 11:43 AM EDT [facility] Albumin 2.8(L) 3.4 - 5.0 g/dL 02/17/2024 11:43 AM EDT [facility] Alkaline Phosphatase 49 27 - 136 U/L 02/17/2024 11:43 AM T [facility] ALT 11(L) 12 - 78 U/L 02/17/2024 11:43 AM EDT [facility] AST 15 5 - 37 U/L 02/17/2024 11:43 AM T [facility] Total Bilirubin 0.4 0.2 - 1.3 mg/dL 02/17/2024 11:43 AM T [facility] Protein, Total 8.4(H) 6.4 - 8.2 gm/dL 02/17/2024 11:43 AM [facility] Anion Gap 9 9 - 20 02/17/2024 11:43 AM [facility] A/G Ratio 0.5(L) 1.1 - 2.5 02/17/2024 11:43 AM T [facility] Globulin 5.6(H) 1.5 - 4.5 g/dL 02/17/2024 11:43 AM [facility] Osmolality Calc 281.0 11:43 AM [facility] eGFR (mL/min/1.73m2) 57(L) >=60 mL/min/1.7 3m2 02/17/2024 11:43 AM [facility] Comment:ESTIMATED GFR IS NOT ACCURATE CREATININE CLEARANCE IN PREDICTING GLOMERULAR FILTRATION RATE. ESTIMATED GFR IS NOT APPLICABLE FOR DIALYSIS PATIENTS. Blood Venipuncture / Unknown 02/17/2024 10:03 AM EDT 02/17/2024 10:07 AM EDT us Caleb Pacheco MD LAB BLOOD ORDERABLES Final Res ult [facility] [address] [place] [address], [facility] [phone] * (ABNORMAL) CBC with Automated Diff (02/17/2024 10:03 AM EDT) [facility] WBC 3.1(L) 4.5 - 12.5 K/??L 02/17/2024 [...] ult [facility] [address] [place] [address], [facility] [phone] documented in this encounter Visit Diagnoses Diagnosis Multiple myeloma without remission (HCC)- Primary documented in this encounter Care Teams Building Supplies Salesperson Retail Relationship Specialty Start Date End Date Clifford Newell PA [address] [place] [phone] PCP - General Physician Accounts Payable Or Receivable Clerk 10/14/23 documented as of this encounter
--- OUTSIDE RECORDS SUMMARY | 2024-08-03 17:00 | XMS_ITS | Encounter Summary ---
Author Organization [employer] Address [address] [place] [address] Care Team Providers Care Track Repair Person Name Role Phone Clifford Newell Primary Care Provider + [phone] Reason for Referral * Durable Medical Equipment (Routine) - Closed Specialty Diagnoses / Procedures Referred By Contac t Referred To Contact Diagnoses CAILIN (obstructive sleep apnea) Procedures DME Sleep Supplies Huber Ellsworth MD [address] [place] [address] Phone: tel: fax: [facility] Referral ID Status Reason Start Date Expiration Date Visits Re quested Visits Authorized [id number] Closed 01/04/2024 01/03/2025 1 1 * Durable Medical Equipment (Routine) - Closed Specialty Diagnoses / Procedures Referred By Contac t Referred To Contact Diagnoses CAILIN (obstructive sleep apnea) Procedures DME Equipment Order Huber Ellsworth MD [address] [place] [address] Phone: tel: fax: [facility] Referral ID Status Reason Start Date Expiration Date Visits Re quested Visits Authorized [id number] Closed 01/04/2024 01/03/2025 1 1 Reason for Visit * Reason Comments Sleep Apnea Encounter Details Date Type Department Care Team (Latest Contact Info) Description 01/04/2024 1:30 PM EDT Initial Consult [facility] [address] [place] [phone] Huber Ellsworth MD [address] [place] [id number] CAILIN (obstructive sleep apnea) (Primary Dx) Social History Tobacco Use Types [...] Sign Reading Time Taken Comments Blood Pressure 141/81 01/04/2024 1:37 PM EDT Pulse 77 01/04/2024 1:37 PM EDT Temperature 36.3 ??C (97.3 ??F) 01/04/2024 1:37 PM ED T Respiratory Rate 20 01/04/2024 1:37 PM EDT Oxygen Saturation 96% 01/04/2024 1:37 PM EDT Inhaled Oxygen Concentration - - Weight 116.2 kg (256 lb 1.6 oz) 01/04/2024 1:37 PM EDT Height 174 cm (5' 8.5 ) 01/04/2024 1:37 PM EDT Body Mass Index 38.37 01/04/2024 1:37 PM EDT documented in this encounter Progress Notes * Huber Ellsworth MD - 01/04/2024 1:30 PM EDT [facility] New Patient HPI: 63-year-old female with past medical history of multiple myeloma(currently going through chemotherapy) anxiety, insomnia, depression, COPD, chronci back pain who presents with chief complaitn of I have sleep apnea and I have not had a machine for 6 months. Her nava/Dremastation (that she had bene using for atelast 6 years) was recalled 6 months ago and she stopped using it. She lives with her sister, she has been told she snores, family has observed apniec episodes. She is interested in being re-tested for CAILIN and starting Pap therapy indira possible. Previous diagnosis and treatment: Obstructive Sleep Apnea Dr. Rey Machine on recall. Hasn't registered for a new one. Last used the CPAP 6 months ago. Takes archie menon for sleep Sleep patterns: Weekday bedtime: 2199 Weekday wake up time: 2918-2496 Weekend bedtime: 2199 Weekend wake up time: 0318-2774 How long to fall asleep: 30 mins How many times to wake up at night: 3-4 Avg. Number of hours of sleep: 8-10 How many days/Wk of nappin How long: Munday sleepiness Scale: 12 Past Medical History: Diagnosis Date ??? Asthma ??? Autologous bone marrow transplantation status (HCC) ??? Chronic low back pain ??? DVT (deep venous thrombosis) (HCC) ??? History of shingles 12/2019 ??? Hypertension ??? Multiple myeloma (HCC) ??? Peripheral neuropathy ??? Pulmonary embolism (HCC) Current Outpatient Medications on File Prior to [...] 10 mg 30 tablet 2 ??? [DISCONTINUED] Advair HFA 230-21 mcg/actuation inhaler 2 puffs 2 (two) times daily. ??? [DISCONTINUED] amitriptyline (ELAVIL) 10 MG tablet SMARTSI Tablet(s) By Mouth Every Evening PRN ??? [DISCONTINUED] busPIRone (BUSPAR) 10 MG tablet Take by mouth. ??? [DISCONTINUED] clonazePAM (KlonoPIN) 0.5 MG tablet Take 1 tablet (0.5 mg total) by mouth. ??? [DISCONTINUED] fluconazole (DIFLUCAN) 200 MG tablet Take 1 tablet (200 mg total) by mouth daily. ??? [DISCONTINUED] HYDROcodone-acetaminophen (NORCO 7.5-325) 7.5-325 mg per tablet Take 1 tablet bymouth. ? ? [DISCONTINUED] lidocaine HCl (magic mouthwash, without steroid & Benadryl,) suspension SWISH AND EXPECTORATE OR SWALLOW 5 TO 10 ML BY MOUTH FOUR TIMES DAILY ??? [DISCONTINUED] LORazepam (ATIVAN) 0.5 MG tablet Take 1 tablet (0.5 mg total) by mouth every 12 (twelve) hours as needed. ??? [DISCONTINUED] meclizine (ANTIVERT) 12.5 mg tablet Take 1 tablet (12.5 mg total) by mouth 2 (two) times daily. ??? [DISCONTINUED] Mucus Relief ER 600 mg 12 hr tablet Take 2 tablets (1,200 mg total) by mouth 2 (two) times daily. ??? [DISCONTINUED] nystatin (MYCOSTATIN) 100,000 unit/mL suspension Take by mouth. ??? [DISCONTINUED] pantoprazole (PROTONIX) 40 MG tablet Take 1 tablet (40 mg total) by mouth daily. ??? [DISCONTINUED] Pomalyst 2 mg Cap TAKE 1 CAPSULE BY MOUTH DAILY FOR 21 DAYS, THEN 7 DAYS OFF 21 capsule 0 ??? [DISCONTINUED] potassium citrate (UROCIT-K) 5 mEq (540 mg) SR tablet Take 8 tablets (40 mEq total) by mouth. ??? [DISCONTINUED] predniSONE (DELTASONE) 20 MG tablet Take 1 tablet (20 mg total) by mouth daily. ??? [DISCONTINUED] prochlorperazine (COMPAZINE) 5 MG tablet Take 1 tablet (5 mg total) by mouth every 6 (six) hours as needed. No current facility-administered medications on file prior to visit. Social History Socioeconomic History ??? Marital status: / Spouse name: Not on file ??? Number of children: 4 ??? Years of education: Not on file ??? Highest education level: Not on file Occupational History ??? Not on file Tobacco Use ??? Smoking status: Never ??? Smokeless tobacco: Never Vaping Use ??? Vaping Use: Never used Substance and Sexual Activity ??? Alcohol use: Never ??? Drug use: Never ??? Sexual activity: Not on file Other Topics Concern ??? Not on file Social History Narrative ??? Not on file Social Determinants of Health Financial Resource Strain: Not on file Food Insecurity: No Food Insecurity (10/05/2023) Food Insecurity ??? : Not on file ??? : Not on file Transportation Needs: Not on file Physical Activity: Not on file Stress: Not on file Social Connections: Low Risk (10/05/2023) Family and Community Support ??? : Not on file ??? : Not on file Intimate Partner Violence: Not on file Housing Stability: Low Risk (10/05/2023) Housing Stability ??? : Not on file ??? : Not on file Past Surgical History: Procedure Laterality Date ??? BONE MARROW BIOPSY ??? TOTAL KNEE ARTHROPLASTY Vitals: 01/04/24 1337 BP: (!) 141/81 Pulse: 77 Resp: 20 Temp: 97.3 ??F (36.3 ??C) SpO2: 96% Weight: 116.2 kg (256 lb 1.6 oz) Height: 1.74 m (5' 8.5 ) Body mass index is 38.37 kg/m??. Physical Exam Constitutional: Appearance: Normal appearance. She is obese. HENT: Head: Normocephalic and atraumatic. Eyes: Extraocular Movements: Extraocular movements intact. Conjunctiva/sclera: Conjunctivae normal. Cardiovascular: Rate and Rhythm: Normal rate and regular rhythm. Pulmonary: Effort: Pulmonary effort is normal. Breath sounds: Normal breath sounds. Skin: General: Skin is warm and dry. Neurological: General: No focal deficit present. Mental Status: She is alert. Mental status is at baseline. Psychiatric: Comments: anxious Assessment/Plan CAILIN: Today in clinic I ma ordering Ms. Bailey a new autoCPAP at 6-16 with a nasal mask. I suspect a significant element of her insomnia and bedroom associated anxiety secondary to to not treating her sleep apnea over the past 6 months. She also reports that ever since going into remission she has been living in a home with 11 other people and she says it is always loud and she is not able to get a good sleep there. I counseled her on the importance of trying to prevent healthy sleep environment andalso possibly investing in any sound machine. Inadequate sleep hygiene: - I discussed with the patient healthy sleep habits. The importance of a fixed wake up time with sunlight exposure shortly thereafter to promote their circadian rhythm. I discussed the benefits of a healthy sleep environment. We discussed absolutely no drowsy driving. Insomnia: Patient appears to have significantly better associated anxiety. Her PCP has recently started her on Ambien 10 mg nightly but she has not started taking this yet. I advised her on the importance of not using her bed is a place to go to worry and trying to have a schedule I time before bed. Will follow this up at our next visit. Huber Ellsworth MD documented in this encounter Plan of Treatment Not on file documented as of this encounter Visit Diagnoses Diagnosis CAILIN (obstructive sleep apnea)- Primary Obstructive sleep apnea (adult) (pediatric) documented in this encounter Care Teams Track Repair Person Relationship Specialty Start Date End Date Clifford Newell PA [address] [place] [address] [place] [phone] PCP - General Physician Teacher Of Family And Consumer Science 10/14/23 documented as of this encounter
--- OUTSIDE RECORDS SUMMARY | 2024-08-03 17:00 | XMS_ITS | Encounter Summary ---
Author Organization [employer] Address [address] [place] [address] Care Team Providers Care Furnace Combination Analyst Name Role Phone Clifford Newell Primary Care Provider + [phone] Encounter Details Date Type Department Care Team (Late st Contact Info) Description 01/11/2024 Orders Only [facility] [place] [address] [place] [address] Lico Rogers MD [address] [place] [address] Social History Tobacco Use Types [...] Date Kulwant rded Speak language other than Belizean at home Not on file 10/05/2023 Want [...] filedocumented in this encounter Care Teams Furnace Combination Analyst Relationship Specialty Start Date End Date Clifford Newell PA [address] [place] [address] [address] [place], [place] [phone] PCP - General Physician Iron Pellet Tester 10/14/23 documented as of this encounter
--- OUTSIDE RECORDS SUMMARY | 2024-08-03 17:00 | XMS_ITS | Encounter Summary ---
Author Organization [employer] Address [address] [place] [address] Care Team Providers Care Sped Teacher Name Role Phone Clifford Newell Primary Care Provider + [phone] Reason for Visit * Reason Comments Injections * Episode Based Medication (Routine) - Authorized Specialty Diagnoses / Procedures Referred By Ana Paula anne Referred To Contact Diagnoses Multiple myeloma without remission (HCC) Procedures DENOSUMAB INJECTION Xgeva/ [id number] Caleb Pacheco MD [email or web address] [place] [address] Phone: tel: fax: [facility] [place] [address] [place] [address] Phone: tel: fax: Referral ID Status Reason Start Date Expiration Date V isits Requested Visits Authorized [id number] Authorized 06/29/2023 05/15/2025 1 198 Encounter Details Date Type Department Care Team (Late st Contact Info) Description 11/16/2023 9:45 AM EST Infusion [facility] [place] [address] [place] [address] Caleb Pacheco MD [email or web address] [place] [address] Multiple myeloma without remission (HCC) [...] Progress Notes * Myla Franco RN - 11/16/2023 9:45 AM ESTSummary: discharge 1135: Injections tolerated. DC home. NIZATION DEVELOPMENT CONSULTANT documented in this encounter Plan of Treatment Not on file documented as of this encounter Visit Diagnoses Diagnosis Multiple myeloma without remission (HCC)- Primary documented in this encounter Administered Medications Inactive Administered Medications - up to 3 most recent administrations Medication Order MAR Action Action Date Dose Rate Site acetaminophen (TYLENOL) tablet 650 mg 650 mg Once, oral, On Wed11/16/23 at 1130, For 1 dose, Recommended maximum dose of acetaminophen is 4000 mg from all sources in 24 hoursIndications:Multip le myeloma without remission (HCC) Given 11/16/2023 11:09 AM EST 650 mg daratumumab-hyaluronida se-fij (DARZALEX FASPRO) 1,800 mg-30,000 unit/15 mL subcutaneous injection 1,800 mg 1,800 mg Once, subcutaneous, at 300 mL/hr, On Wed11/16/23 at 1130, For 1 dose, FLAT DOSING Administer into the subcutaneous tissue of the abdomen about 3 inches to the right or left of the navel over 3-5 minutes. Rotate injection sites for successive injections.Indications: Multiple myeloma without remission (HCC) Given 11/16/2023 11:27 AM EST 1,800 mg 300 mL/hr Abdominal Tissue denosumab (XGEVA) subcutaneous injection 120 mg 120 mg Once, subcutaneous, On Wed11/16/23 at 1130, For 1 dose, * Refrigerated * Bring to room temperature 15 to 30 minutes prior to administration., This medication is restricted to use in outpatients only. Is this patient in outpatient status? YesIndications:Multiple myeloma without remission (HCC) Given 11/16/2023 11:27 AM EST 120 mg Abdominal Tissue diphenhydrAMINE (BENADRYL) capsule 25 mg 25 mg Once, oral, On Wed11/16/23 at 1130, For 1 doseIndications:Multipl e myeloma without remission (HCC) Given 11/16/2023 11:09 AM EST 25 mg documented in this encounter Care Teams Sped Teacher Relationship Specialty Start Date End Date Clifford Newell PA [address] [place] [address] [place] [address] PCP - General Physician Film Inspector 10/14/23 documented as of this encounter
--- OUTSIDE RECORDS SUMMARY | 2024-08-03 17:00 | XMS_ITS | Encounter Summary ---
Author Organization [employer] Address [address] [place] [address] Care Team Providers Care Wan Support Specialist Name Role Phone Clifford Newell Primary Care Provider + [phone] Encounter Details Date Type Department Care Team (Latest Contact Info) Description 11/16/2023 Travel Social History Tobacco Use Types Packs/Day [...] Date Kulwant rded Speak language other than Serbian at home Not on file 10/05/2023 Want [...] on filedocumented in this encounter Care Teams Wan Support Specialist Relationship Specialty Start Date End Date Clifford Newell PA [address] [place] [address] [place] [phone] PCP - General Physician Program Coordinator 10/14/23 documented as of this encounter
--- OUTSIDE RECORDS SUMMARY | 2024-08-03 17:00 | XMS_ITS | Encounter Summary ---
Author Organization [employer] Address [address] [place] [address] Care Team Providers Care Databases Computer Consultant Name Role Phone Clifford Newell Primary Care Provider + [phone] Encounter Details Date Type Department Care Team (Latest Contact Info) Description 12/14/2023 Travel Social History Tobacco Use Types Packs/Day [...] on filedocumented in this encounter Care Teams Databases Computer Consultant Relationship Specialty Start Date End Date Clifford Newell PA [address] [place] [address] [place] [phone] PCP - General Physician Bag Grader 10/14/23 documented as of this encounter
--- OUTSIDE RECORDS SUMMARY | 2024-08-03 17:01 | XMS_ITS | Encounter Summary ---
Author Organization [employer] Address [address] [place] [address] Care Team Providers Care Nuclear Medicine Physician Name Role Phone Unavailable Primary Care Provider Unavailabl e Encounter Details Date Type Department Care Team (Late st Contact Info) Description 08/31/2023 Orders Only [facility] [address] [place] [address] Caleb Pacheco MD [address] [facility] [address] [place] [address] Social History Tobacco Use Types Packs/Day Years Used Date Smoking Tobacco: Never Smokeless Tobacco: Never Alcohol Use Standard Drinks/Week Comments Never 0 (1 standard drink = 0.6 oz pur e alcohol) Comments No Sex and Gender Information Value Date Recorded Sex Assigned at Not on file Legal Sex Female 10:12 AM CDT Gender Identity Not on file Sexual Orientation Not on file documented as of this encounter Plan of Treatment Not on file documented as of this encounter Visit Diagnoses Not on filedocumented in this encounter
--- OUTSIDE RECORDS SUMMARY | 2024-08-03 17:01 | XMS_ITS | Encounter Summary ---
Author Organization [employer] Address [address] [place] [address] Care Team Providers Care Sas Bi Developer Name Role Phone Unavailable Primary Care Provider Unavailabl e Reason for Visit * Reason Comments Injections * Episode Based Medication (Routine) - Authorized Specialty Diagnoses / Procedures Referred By Ana Paula anne Referred To Contact Diagnoses Multiple myeloma without remission (HCC) Procedures DENOSUMAB INJECTION Xgeva/ [id number] Caleb Pacheco MD [address] [place] [address] Phone: tel: fax: [facility] [place] [address] [place] [address] Phone: tel: fax: Referral ID Status Reason Start Date Expiration Date V isits Requested Visits Authorized [id number] Authorized 06/29/2023 05/15/2025 1 198 Encounter Details Date Type Department Care Team (Late st Contact Info) Description 08/24/2023 12:15 PM EST Infusion [facility] [place] [address] [place] [address] Caleb Pacheco MD [address] [place] [address] Multiple myeloma without remission (HCC) [...] on file Sexual Orientation Not on file COVID-19 Exposure Response Date Recorded In the last 10 days, have yo u been in contact with someone who was confirmed or suspected to have Coronavirus/COVID-19? No / Unsure 07/27/2023 10:23 AM EST documented as of this encounter Progress Notes * Myla Franco RN - 08/24/2023 12:15 PM ESTSummary: discharge Injections given in abdomen SM FIELD PERSON documented in this encounter Plan of Treatment Not on file documented as of this encounter Visit Diagnoses Diagnosis Multiple myeloma without remission (HCC)- Primary documented in this encounter Administered Medications Inactive Administered Medications - up to 3 most recent administrations Medication Order MAR Action Action Date Dose Rate Site acetaminophen (TYLENOL) tablet 650 mg 650 mg Once, oral, On Wed08/24/23 at 1300, For 1 dose, Recommended maximum dose of acetaminophen is 4000 mg from all sources in 24 hoursIndications:Multip le myeloma without remission (HCC) Given 08/24/2023 12:45 PM EST 650 mg daratumumab-hyaluronida se-fihj (DARZALEX FASPRO) 1,800 mg-30,000 unit/15 mL subcutaneous injection 1,800 mg 1,800 mg Once, subcutaneous, at 300 mL/hr, On Wed08/24/23 at 1300, For 1 dose, FLAT DOSING Administer into the subcutaneous tissue of the abdomen about 3 inches to the right or left of the navel over 3-5 minutes. Rotate injection sites for successive injections.Indications: Multiple myeloma without remission (HCC) Given 08/24/2023 1:09 PM EST 1,800 mg 300 mL/hr Abdominal Tissue denosumab (XGEVA) subcutaneous injection 120 mg 120 mg Once, subcutaneous, On Wed08/24/23 at 1300, For 1 dose, * Refrigerated * Bring to room temperature 15 to 30 minutes prior to administration., This medication is restricted to use in outpatients only. Is this patient in outpatient status? YesIndications:Multiple myeloma without remission (HCC) Given 08/24/2023 1:09 PM EST 120 mg Left Arm diphenhydrAMINE (BENADRYL) capsule 25 mg 25 mg Once, oral, On Wed08/24/23 at 1300, For 1 doseIndications:Multipl e myeloma without remission (HCC) Given 08/24/2023 12:45 PM EST 25 mg documented in this encounter
--- OUTSIDE RECORDS SUMMARY | 2024-08-03 17:01 | XMS_ITS | Encounter Summary ---
Author Organization [employer] Address [address] [place] [address] Care Team Providers Care Snow Ranger Name Role Phone Clifford Newell Primary Care Provider + [phone] Reason for Visit * Reason Comments Medication Refill Encounter Details Date Type Department Care Team (Late st Contact Info) Description 07/29/2023 Refill [facility] [address] [facility] [address] [place] [address] Caleb Pacheco MD [address] [facility] [address] [place] [address] Social History Tobacco Use Types [...] AM EST documented as of this encounter Miscellaneous Notes * Telephone Encounter - Nicki Thurston RN - 07/29/2023 9:35 AM EST Prescription Refill Name/Strength/Directions: Oxycodone 10 mg every 4hrs PRN Quantity:#100 Last Fill Date/Provider:05/18/23 Dr. Pacheco Last Appt:07/27/23 Next Appt:08/24/23 Requested Pharmacy:[facility] Refill does not meet protocol. , Medication pended for MD to send. S TENDER INCENDIARY GRENADE documented in this encounter Plan of Treatment Not on file documented as of this encounter Visit Diagnoses Not on filedocumented in this encounter Care Teams Snow Ranger Relationship Specialty Start Date End Date Clifford Newell PA [address] [place] [address] [place] [phone] PCP - General Physician Trouble Shooting Mechanic 10/14/23 documented as of this encounter
--- OUTSIDE RECORDS SUMMARY | 2024-08-03 17:01 | XMS_ITS | Encounter Summary ---
Author Organization [employer] Address [address] [place] [address] Care Team Providers Care Casino Floorperson Name Role Phone Unavailable Primary Care Provider Unavailabl e Encounter Details Date Type Department Care Team (Latest Contact Info) Description 09/21/2023 11:15 AM EST Lab Patient Walk-In [facility] - [address] [place] [address] Caleb Pacheco MD [address] [address] [place] [address] Multiple myeloma without remission (HCC) [...] Associated Diagnosis Comments IMMUNOFIX ELECTROPHORESIS BILL(SENDOUT) Routine 09/21/2023 11:10 AM EST Multiple myeloma without remission (HCC) CBC W/ AUTO DIFF Routine 09/21/2023 11:1 0 AM EST Multiple myeloma without remission (HCC) ONOCOLOGY CHEMISTRY PANEL Routine 09/21/2023 11:10 AM EST Multiple myeloma without remission (HCC) PROTEIN ELECTROPHORESIS W RFLX TO RALPH(SENDOUT) Routine 09/21/2023 11:10 AM EST Multiple myeloma without remission (HCC) IMMUNOGLOBULIN M(SENDOUT) Routine 09/21/2023 11:10 AM EST Multiple myeloma without remission (HCC) IMMUNOGLOBULIN G(SENDOUT) Routine 09/21/2023 11:10 AM EST Multiple myeloma without remission (HCC) IMMUNOGLOBULIN A(SENDOUT) Routine 09/21/2023 11:10 AM EST Multiple myeloma without remission (HCC) COMPREHENSIVE METABOLIC PANEL STAT 09/21/2023 11:10 AM EST Multiple myeloma without remission (HCC) documented in this encounter Results * Immunofix Electrophoresis Bill(SENDOUT) (09/21/2023 11:10 AM EST) Pathologist [facility] Immunofix Electrophoresis Bill Billed 09/25/2023 8:38 PM EST [facility] Comment: Performed By: Recommend [address] [place] [address] Virtual Assistant: Parker Rangel MD, PhD CLIA Number: [id number] Blood Venipuncture / Unknown 09/21/2023 11:10 AM EST 09/21/2023 11:14 AM EST Caleb Pacheco MD LAB BLOOD ORDERABLES Final Res ult [facility] [address] [place] [address], [facility] [phone] * (ABNORMAL) Immunoglobulin A(SENDOUT) (09/21/2023 11:10 AM EST) Pathologist [facility] Immunoglobulin A 1097(H) 68 - 408 mg/dL 09/25/2023 8:23 PM EST [facility] Comment: Performed By: [facility] [address] [place] [address] Virtual Assistant: Parker Rangel MD, PhD CLIA Number: [id number] Blood Venipuncture / Unknown 09/21/2023 11:10 AM EST 09/21/2023 11:14 AM EST Caleb Pacheco MD LAB BLOOD ORDERABLES Final Res ult Performing Organization Address [facility] Co de Phone Number [address] [phone] * (ABNORMAL) Immunoglobulin M(SENDOUT) (09/21/2023 11:10 AM EST) Immunoglobulin M 12(L) 35 - 263 mg/dL 09/25/2023 8:23 PM EST [facility] Comment: Performed By: [facility] [address] [place] [address] Virtual Assistant: Parker Rangel MD, PhD CLIA Number: [id number] Blood Venipuncture / Unknown 09/21/2023 11:10 AM EST 09/21/2023 11:14 AM EST Caleb Pacheco MD LAB BLOOD ORDERABLES Final Res ult Performing Organization Address [facility] de Phone Number [address] [phone] * (ABNORMAL) Immunoglobulin G(SENDOUT) (09/21/2023 11:10 AM EST) Immunoglobulin G 262(L) 768 - 1632 mg/dL 09/25/2023 8:23 PM EST [facility] Comment: Performed By: [facility] [address] [place] [address] Virtual Assistant: Parker Rangel MD, PhD CLIA Number: [id number] Blood Venipuncture / Unknown 09/21/2023 11:10 AM EST 09/21/2023 11:14 AM EST us Caleb Pacheco MD LAB BLOOD ORDERABLES Final Res ult [address] [phone] * (ABNORMAL) Comprehensive metabolic panel (09/21/2023 11:10 AM [facility]) Sodium 143 136 - 146 meq/L 09/21/2023 11:56 AM [facility] Potassium 3.4(L) 3.5 - 5.1 meq/L 09/21/2023 11:56 AM [facility] Chloride 112 102 - 112 meq/L 09/21/2023 11:56 AM [facility] CO2 23 21 - 32 meq/L 09/21/2023 11:56 AM [facility] Calcium 9.1 8.5 - 10.1 mg/dL 09/21/2023 11:56 AM [facility] Glucose 102 74 - 106 mg/dL 09/21/2023 11:56 AM [facility] BUN 10 7 - 22 mg/dL 09/21/2023 11:56 AM [facility] Creatinine 1.09(H) 0.55 - 1.02 mg/dL 09/21/2023 11:56 AM [facility] BUN/Creatinine 9 8 - 20 09/21/2023 11:56 AM [facility] Albumin 3.2(L) 3.4 - 5.0 g/dL 09/21/2023 11:56 AM [facility] Alkaline Phosphatase 54 27 - 136 U/L 09/21/2023 11:56 AM [facility] ALT 16 12 - 78 U/L 09/21/2023 11:56 AM [facility] AST 19 5 - 37 U/L 09/21/2023 11:56 AM [facility] Total Bilirubin 0.5 0.2 - 1.3 mg/dL 09/21/2023 11:56 AM [facility] Protein, Total 7.3 6.4 - 8.2 gm/dL 09/21/2023 11:56 AM [facility] Anion Gap 11 9 - 20 09/21/2023 11:56 AM [facility] A/G Ratio 0.8(L) 1.1 - 2.5 09/21/2023 11:56 AM [facility] Globulin 4.1 1.5 - 4.5 g/dL 09/21/2023 11:56 AM [facility] Osmolality Calc 284.2 11:56 AM [facility] eGFR (mL/min/1.73m2) 57(L) >=60 mL/min/1.7 3m2 09/21/2023 11:56 AM [facility] Comment:ESTIMATED GFR IS NOT ACCURATE CREATININE CLEARANCE IN PREDICTING GLOMERULAR FILTRATION RATE. ESTIMATED GFR IS NOT APPLICABLE FOR DIALYSIS PATIENTS. Blood Venipuncture / Unknown 09/21/2023 11:10 AM EST 09/21/2023 11:14 AM EST us Caleb Pacheco MD LAB BLOOD ORDERABLES Final Res ult Performing Organization Address City/State/[facility] Co de Phone Number [facility] [address] [place] [address] * (ABNORMAL) Protein Electrophoresis w Rflx to RALPH(SENDOUT) (09/21/2023 11:10 AM EST) Total Protein, Serum 6.7 6.3 - 8.2 g/dL 09/25/2023 8:38 PM EST [facility] Albumin 3.61(L) 3.75 - 5.01 g/dL 09/25/2023 8:38 PM [facility] Alpha 1 Globulin 0.27 0.19 - 0.46 g/dL 09/25/2023 8:38 PM [facility] Alpha 2 Globulin 0.82 0.48 - 1.05 g/dL 09/25/2023 8:38 PM EST [facility] Beta Globulin 1.74(H) 0.48 - 1.10 g/dL 09/25/2023 8:38 PM EST [facility] Gamma 0.25(L) 0.62 - 1.51 g/dL 09/25/2023 8:38 PM [facility] Immunofixation Reflex RALPH Done 09/25/2023 8:38 PM EST [facility] Monoclonal Protein 1.44 g/dL 2023 8:38 PM EST [facility] SPEP/RALPH Interpretation See Note 09/25/2023 8:38 PM EST [facility] Comment: Monoclonal spike in the beta region. The quantitation may include complement and/or transferrin components. Measurement of total Immunoglobulin (IgA, IgG, or IgM) can be used for the quantitation of the monoclonal spike instead. Hypogammaglobulinemia. Restricted band of protein migration in the gamma region. RALPH gel pattern shows an IgA type lambda monoclonal protein with an additional faint band in IgG kappa. EER Serum Protein Electrophoresis Reflex See Note 09/25/2023 8:38 PM EST [facility] Comment: Authorized individuals can access the [facility] Enhanced Report using the following link: [email or web address] Performed By: [facility] [address] [place] [address] Virtual Assistant: Parker Rangel MD, PhD CLIA Number: [id number] Blood Venipuncture / Unknown 09/21/2023 11:10 AM EST 09/21/2023 11:14 AM EST us Caleb Pacheco MD LAB BLOOD ORDERABLES Final Res ult [facility] [address] [phone] * (ABNORMAL) Oncology Chemistry Panel (09/21/2023 11:10 AM EST) Sodium 143 136 - 146 meq/L 09/21/2023 11:21 AM EST [facility] Potassium 3.6 3.5 - 5.1 meq/L 09/21/2023 11:21 AM EST [facility] Chloride 107 98 - 108 meq/L 09/21/2023 11:21 AM EST [facility] CO2 18(L) 22 - 29 meq/L 09/21/2023 11:21 AM EST [facility] Anion Gap 22(H) 9 - 20 09/21/2023 11:21 AM EST [facility] BUN 10 7 - 18 mg/dL 09/21/2023 11:21 AM EST [facility] Creatinine 1.00 0.60 - 1.10 mg/dL 09/21/2023 11:21 AM EST [facility] BUN/Creatinine 10 8 - 20 09/21/2023 11:21 AM EST [facility] Glucose 82 70 - 105 mg/dL 09/21/2023 11:21 AM EST [facility] Calcium Ionized (mg/dL) 4.81 4.36 - 5.20 mg/dL 09/21/2023 11:21 AM EST [facility] Blood Venipuncture / Unknown 09/21/2023 11:10 AM EST 09/21/2023 11:14 AM EST us Caleb Pacheco MD LAB BLOOD ORDERABLES Final Res ult [facility] [address] [phone] * (ABNORMAL) CBC with automated diff (09/21/2023 11:10 AM EST) WBC 4.2(L) 4.5 - 12.5 K/??L 09/21/2023 11:17 AM EST [facility] RBC 3.89(L) 4.00 - 5.25 M/??L 09/21/2023 11:17 AM EST [facility] Hemoglobin 13.0 12.0 - 16.0 GM/DL 09/21/2023 11:17 AM EST [facility] Hematocrit 40.4 36.0 - 46.0 % 09/21/2023 11:17 AM EST [facility] MCV 104(H) 80 - 100 fL 09/21/2023 11:17 AM EST [facility] MCH 33.4 26.0 - 34.0 pg 09/21/2023 11:17 AM EST [facility] MCHC 32.2 31.0 - 37.0 GM/DL 09/21/2023 11:17 AM EST [facility] RDW 12.2 12.0 - 16.8 % 09/21/2023 11:17 AM EST [facility] Platelets 176 140 - 440 K/CU MM 09/21/2023 11:17 AM EST [facility] MPV 9.9 7.4 - 10.4 fL 09/21/2023 11:17 AM EST [facility] % Neutros 42(L) 45 - 80 % 09/21/2023 11:17 AM EST [facility] % Lymphs 45 15 - 45 % 09/21/2023 11:17 AM EST [facility] % Monos 11(H) 0 - 10 % 09/21/2023 11:17 AM EST [facility] % Eos 2 0 - 5 % 09/21/2023 11:17 AM EST [facility] % Baso 0 0 - 3 % 09/21/2023 11:17 AM EST [facility] # Neutros 1.77(L) 2.00 - 8.80 K/??L 09/21/2023 11:17 AM EST [facility] # Lymphs 1.90 0.70 - 5.50 K/??L 09/21/2023 11:17 AM EST [facility] # Monos 0.45 0.00 - 1.70 K/??L 09/21/2023 11:17 AM EST [facility] # Eos 0.07 0.00 - 0.80 K/??L 09/21/2023 11:17 AM EST [facility] # Baso 0.01 0.00 - 0.20 K/??L 09/21/2023 11:17 AM EST [facility] Blood Venipuncture / Unknown 09/21/2023 11:10 AM EST 09/21/2023 11:14 AM EST Narrative [facility] - 09/21/2023 11:17 AM EST When CBC w/ Auto Diff [...] ORDERABLES Final Res ult [facility] [address] [facility] [place] [address], [facility] [phone] documented in this encounter Visit Diagnoses Diagnosis Multiple myeloma without remission (HCC) documented in this encounter
--- OUTSIDE RECORDS SUMMARY | 2024-08-03 17:01 | XMS_ITS | Encounter Summary ---
Author Organization [employer] Address [address] [place] [address] Care Team Providers Care Optical Instrument Assembler Name Role Phone Unavailable Primary Care Provider Unavailabl e Encounter Details Date Type Department Care Team (Late st Contact Info) Description 07/24/2023 Orders Only [place] [facility] - [address] [place] [address] Caleb Pacheco MD [address] [facility] [address] [place] [address] Multiple myeloma without remission (HCC) [...] suspected to have Coronavirus/COVID-19? No / Unsure 06/29/2023 10:45 AM EDT documented as of this encounter Plan of Treatment Not on file documented as of this encounter Results * (ABNORMAL) Comprehensive metabolic panel (07/27/2023 10:50 AM EST) Sodium 143 136 - 146 meq/L 07/27/2023 11:38 AM [facility] Potassium 3.9 3.5 - 5.1 meq/L 07/27/2023 11:38 AM [facility] Chloride 111 102 - 112 meq/L 07/27/2023 11:38 AM [facility] CO2 29 21 - 32 meq/L 07/27/2023 11:38 AM [facility] Calcium 9.1 8.5 - 10.1 mg/dL 07/27/2023 11:38 AM [facility] Glucose 103 74 - 106 mg/dL 07/27/2023 11:38 AM [facility] BUN 14 7 - 22 mg/dL 07/27/2023 11:38 AM [facility] Creatinine 0.99 0.55 - 1.02 mg/dL 07/27/2023 11:38 AM [facility] BUN/Creatinine 14 8 - 20 07/27/2023 11:38 AM [facility] Albumin 3.0(L) 3.4 - 5.0 g/dL 07/27/2023 11:38 AM [facility] Alkaline Phosphatase 43 27 - 136 U/L 07/27/2023 11:38 AM [facility] ALT 16 12 - 78 U/L 07/27/2023 11:38 AM [facility] AST 15 5 - 37 U/L 07/27/2023 11:38 AM [facility] Total Bilirubin 0.4 0.2 - 1.3 mg/dL 07/27/2023 11:38 AM [facility] Protein, Total 6.6 6.4 - 8.2 gm/dL 07/27/2023 11:38 AM [facility] Anion Gap 7(L) 9 - 20 07/27/2023 11:38 AM [facility] A/G Ratio 0.8(L) 1.1 - 2.5 07/27/2023 11:38 AM [facility] Globulin 3.6 1.5 - 4.5 g/dL 07/27/2023 11:38 AM [facility] Osmolality Calc 285.7 11:38 AM EST [facility] eGFR (mL/min/1.73m2) >60 >=60 mL/min/1.7 3m2 07/27/2023 11:38 AM EST [facility] Comment:ESTIMATED GFR IS NOT ACCURATE CREATININE CLEARANCE IN PREDICTING GLOMERULAR FILTRATION RATE. ESTIMATED GFR IS NOT APPLICABLE FOR DIALYSIS PATIENTS. Blood Venipuncture / Unknown 07/27/2023 10:50 AM EST 07/27/2023 10:54 AM EST us Caleb Pacheco MD LAB BLOOD ORDERABLES Final Res ult [facility] [address] [place], [place] [address] [phone] * (ABNORMAL) CBC with Automated Diff (07/27/2023 10:50 AM EST) WBC 4.7 4.5 - 12.5 K/??L 07/27/2023 10:59 AM EST [facility] RBC 3.56(L) 4.00 - 5.25 M/??L 07/27/2023 10:59 AM EST [facility] Hemoglobin 12.0 12.0 - 16.0 GM/DL 07/27/2023 10:59 AM EST [facility] Hematocrit 36.9 36.0 - 46.0 % 07/27/2023 10:59 AM EST [facility] MCV 104(H) 80 - 100 fL 07/27/2023 10:59 AM EST [facility] MCH 33.7 26.0 - 34.0 pg 07/27/2023 10:59 AM EST [facility] MCHC 32.5 31.0 - 37.0 GM/DL 07/27/2023 10:59 AM EST [facility] RDW 12.1 12.0 - 16.8 % 07/27/2023 10:59 AM EST [facility] Platelets 152 140 - 440 K/CU MM 07/27/2023 10:59 AM EST [facility] MPV 9.9 7.4 - 10.4 fL 07/27/2023 10:59 AM EST [facility] % Neutros 46 45 - 80 % 07/27/2023 10:59 AM EST [facility] % Lymphs 41 15 - 45 % 07/27/2023 10:59 AM EST [facility] % Monos 10 0 - 10 % 07/27/2023 10:59 AM EST [facility] % Eos 2 0 - 5 % 07/27/2023 10:59 AM EST [facility] % Baso 0 0 - 3 % 07/27/2023 10:59 AM EST [facility] # Neutros 2.18 2.00 - 8.80 K/??L 07/27/2023 10:59 AM EST [facility] # Lymphs 1.93 0.70 - 5.50 K/??L 07/27/2023 10:59 AM EST [facility] # Monos 0.49 0.00 - 1.70 K/??L 07/27/2023 10:59 AM EST [facility] # Eos 0.10 0.00 - 0.80 K/??L 07/27/2023 10:59 AM EST [facility] # Baso 0.02 0.00 - 0.20 K/??L 07/27/2023 10:59 AM EST [facility] Blood Venipuncture / Unknown 07/27/2023 10:50 AM EST 07/27/2023 10:54 AM EST Narrative [facility] - 07/27/2023 10:59 AM EST When CBC w/ Auto Diff [...] ult [facility] [address] [phone] documented in this encounter Visit Diagnoses Diagnosis Multiple myeloma without remission (HCC)- Primary documented in this encounter
--- OUTSIDE RECORDS SUMMARY | 2024-08-03 17:01 | XMS_ITS | Encounter Summary ---
Author Organization [employer] Address [address] [place] [address] Care Team Providers Care Invasive Cardiologist Name Role Phone Unavailable Primary Care Provider Unavailabl e Encounter Details Date Type Department Care Team (Latest Contact Info) Description 08/24/2023 Travel Social History Tobacco Use Types Packs/Day [...] AM EST documented as of this encounter Plan of Treatment Not on file documented as of this encounter Visit Diagnoses Not on filedocumented in this encounter
--- OUTSIDE RECORDS SUMMARY | 2024-08-03 17:01 | XMS_ITS | Encounter Summary ---
Author Organization [employer] Address [address] [place] [address] Care Team Providers Care Creative Services Coordinator Name Role Phone Unavailable Primary Care Provider Unavailabl e Reason for Visit * Episode Based Medication (Routine) - Closed Specialty Diagnoses / Procedures Referred By Ana Paula anne Referred To Contact Diagnoses Multiple myeloma without remission (HCC) Procedures [place] DARATUMUMAB, HYALURONIDASE [id number]-[id number] Caleb Pacheco MD [address] [place] [address] Phone: tel: fax: [facility] [address] [place] [address] Phone: tel: fax: Referral ID Status Reason Start Date Expiration Date Visits Re quested Visits Authorized [id number] Closed 10/20/2022 05/14/2024 1 100 Encounter Details Date Type Department Care Team (Late st Contact Info) Description 07/27/2023 11:45 AM EST Infusion [facility] [place] [address] [place] [address] Caleb Pacheco MD [address] [facility] [address] [place] [address] Multiple myeloma without remission (HCC) [...] Progress Notes * Lyudmila Lopez RN - 07/27/2023 11:45 AM ESTSummary: Notes judd well RNET MARKETING CONSULTANT documented in this encounter Plan of Treatment Not on file documented as of this encounter Visit Diagnoses Diagnosis Multiple myeloma without remission (HCC)- Primary documented in this encounter Administered Medications Inactive Administered Medications - up to 3 most recent administrations Medication Order MAR Action Action Date Dose Rate Site acetaminophen (TYLENOL) tablet 650 mg 650 mg Once, oral, On Wed07/27/23 at 1330, For 1 dose, Recommended maximum dose of acetaminophen is 4000 mg from all sources in 24 hoursIndications:Multip le myeloma without remission (HCC) Given 07/27/2023 1:15 PM EST 650 mg daratumumab-hyaluronida se-fij (DARZALEX FASPRO) 1,800 mg-30,000 unit/15 mL subcutaneous injection 1,800 mg 1,800 mg Once, subcutaneous, at 300 mL/hr, On Wed07/27/23 at 1330, For 1 dose, FLAT DOSING Administer into the subcutaneous tissue of the abdomen about 3 inches to the right or left of the navel over 3-5 minutes. Rotate injection sites for successive injections.Indications: Multiple myeloma without remission (HCC) Given 07/27/2023 1:52 PM EST 1,800 mg 300 mL/hr Abdominal Tissue denosumab (XGEVA) subcutaneous injection 120 mg 120 mg Once, subcutaneous, On Wed07/27/23 at 1330, For 1 dose, * Refrigerated * Bring to room temperature 15 to 30 minutes prior to administration., This medication is restricted to use in outpatients only. Is this patient in outpatient status? YesIndications:Multiple myeloma without remission (HCC) Given 07/27/2023 1:52 PM EST 120 mg Abdominal Tissue diphenhydrAMINE (BENADRYL) capsule 25 mg 25 mg Once, oral, On Wed07/27/23 at 1330, For 1 dose,Indications:Multip le myeloma without remission (HCC) Given 07/27/2023 1:15 PM EST 25 mg documented in this encounter
--- OUTSIDE RECORDS SUMMARY | 2024-08-03 17:01 | XMS_ITS | Encounter Summary ---
Author Organization [facility] [employer] Address [address] [place] [address] Care Team Providers Care Agricultural Economics Professor Name Role Phone Clifford Newell Primary Care Provider + [phone] Reason for Referral * Mammography (Routine) - Closed Specialty Diagnoses / Procedures Referred By Ana Paula anne Referred To Contact Diagnoses Encounter for screening mammogram for malignant neoplasm of breast Procedures MM digital mammo screen bilateral Clifford Newell PA [address] [place] [address] Phone: tel: fax: Referral ID Status Reason Start Date Expiration Date Visits Re quested Visits Authorized [id number] Closed 10/11/2023 04/08/2024 1 1 Reason for Visit * Mammography (Routine) - Closed Specialty Diagnoses / Procedures Referred By Ana Paula anne Referred To Contact Diagnoses Encounter for screening mammogram for malignant neoplasm of breast Procedures MM digital mammo screen bilateral Clifford Newell PA [address] [place] [address] Phone: tel: fax: Referral ID Status Reason Start Date Expiration Date Visits Re quested Visits Authorized [id number] Closed 10/11/2023 04/08/2024 1 1 Encounter Details Date Type Department Care Team (Latest Contact Info) Description 10/14/2023 8:55 AM EST - 10/14/2023 11:59 PM EST Hospital Encounter [facility] [address] [place] [address] Clifford Newell, PA [address] [place] [address] Encounter for screening mammogram for malignant neoplasm of breast Discharge Disposition: Home or Self Care Social [...] Date Kulwant rded Speak language other than Italian at home Not on file 10/05/2023 Want [...] on file documented as of this encounter Medications at Time of Discharge scopolamine (TRANSDERM-SCOP) 1 mg over [address] 1 patch (1.5 mg total) onto the skin every third day. 10 patch 3 03/02/2023 4 Advair HFA 115-21 mcg/actuation inhaler 2 puffs 2 (two) times daily. 11/06/2022 4 amitriptyline (ELAVIL) 10 MG tablet SMARTSI Tablet(s) By Mouth Every Evening PRN 06/20/2022 4 ascorbic acid, vitamin C, (VITAMIN C) 250 MG tablet Take 2 tablets (500 mg total) by mouth. 4 benzonatate (TESSALON) 100 MG capsule Take 1 capsule (100 mg total) by mouth 3 (three) times daily as needed for Cough for up to 30 doses. 30 capsule 08/31/2023 4 BIOTIN ORAL Take 6,000 mcg by mouth. 4 busPIRone (BUSPAR) 15 MG tablet Take 1 tablet (15 mg total) by mouth 3 (three) times daily. 07/02/2022 4 cetirizine (ZyrTEC) 10 MG tablet Take 1 tablet (10 mg total) by mouth. 4 clonazePAM (KlonoPIN) 0.5 MG tablet Take 1 tablet (0.5 mg total) by mouth as needed. 10/20/2022 4 cyanocobalamin (VITAMIN B-12) 1000 MCG tablet TAKE 1 TABLET BY MOUTH EVERY DAY ON AN EMPTY STOMACH FOR LOW VITAMIN B-12 07/02/2022 4 cyclobenzaprine (FLEXERIL) 5 MG tablet Take 1 tablet (5 mg total) by mouth 2 (two) times daily as needed. 05/05/2022 4 dexAMETHasone (DECADRON) 4 MG tablet TAKE 5 TABLETS BY MOUTH ON THE MORNING OF CHEMOTHERAPY. 30 tablet 3 03/04/2023 4 ergocalciferol (ERGOCALCIFEROL) 1,250 mcg (50,000 unit) capsule Take 1 capsule (50,000 Units total) by mouth once a week. 06/20/2022 4 fluticasone propionate (FLONASE) 50 mcg/actuation nasal spray 2 sprays daily. 06/14/2022 07/13/20 2 4 gabapentin (NEURONTIN) 300 MG capsule Take 1 capsule (300 mg total) by mouth 3 (three) times daily. 07/02/2022 4 HYDROcodone-acet aminophen (NORCO 7.5-325) 7.5-325 mg per tablet Take 1 tablet by mouth. 12/01/2022 4 lidocaine HCl (magic mouthwash, without steroid & Benadryl,) suspension SWISH AND EXPECTORATE OR SWALLOW 5 TO 10 ML BY MOUTH FOUR TIMES DAILY 11/17/2022 4 LORazepam (ATIVAN) 0.5 MG tablet Take 1 tablet (0.5 mg total) by mouth every 12 (twelve) hours as needed. 05/06/2022 4 meclizine (ANTIVERT) 25 mg tablet Take 1 tablet (25 mg total) by mouth 4 (four) times daily as needed. 60 tablet 5 02/16/2023 4 metoprolol succinate (TOPROL-XL) 25 MG 24 hr tablet Take 1 tablet (25 mg total) by mouth daily. 11/03/2022 4 Mucus Relief ER 600 mg 12 hr tablet Take 2 tablets (1,200 mg total) by mouth 2 (two) times daily. 06/14/2022 4 nystatin (MYCOSTATIN) 100,000 unit/mL suspension Take by mouth. 11/17/2022 4 OneTouch Verio test strips Strp 2 (two) times daily. 06/24/2022 4 oxyCODONE (OXY-IR) 10 mg tablet Take 1 tablet (10 mg total) by mouth every 4 (four) hours as needed for up to 100 doses. Max Daily Amount: 60 mg 100 tablet 07/29/2023 4 pantoprazole (PROTONIX) 40 MG tablet Take 1 tablet (40 mg total) by mouth daily. 02/24/2023 4 PARoxetine (PAXIL) 30 MG tablet Take 1 tablet (30 mg total) by mouth daily. 07/02/2022 4 Pomalyst 2 mg Cap TAKE 1 CAPSULE BY MOUTH DAILY FOR 21 DAYS, THEN 7 DAYS OFF 21 capsule 03/24/2023 4 potassium chloride SA (K-DUR,KLOR-CON- M) 20 MEQ tablet Take 1 tablet (20 mEq total) by mouth daily. 06/20/2022 4 potassium citrate (UROCIT-K) 5 mEq (540 mg) SR tablet Take 8 tablets (40 mEq total) by mouth. 4 predniSONE (DELTASONE) 20 MG tablet Take 1 tablet (20 mg total) by mouth daily. 08/06/2022 4 ProAir HFA 90 mcg/actuation inhaler 2 puffs. 06/02/2022 4 prochlorperazine (COMPAZINE) 5 MG tablet Take 1 tablet (5 mg total) by mouth every 6 (six) hours as needed. 02/24/2023 4 simvastatin (ZOCOR) 10 MG tablet Take 1 tablet (10 mg total) by mouth nightly. 06/20/2022 4 sulfamethoxazole -trimethoprim (BACTRIM DS) 800-160 mg per tablet Take 1 tablet (160 mg of trimethoprim total) by mouth 2 (two) times daily. 10 tablet 08/24/2023 4 Tab-A-Avery 400 mcg Tab Take 1 tablet by mouth daily. 06/20/2022 4 Xarelto 20 mg tablet SMARTSI Tablet(s) By Mouth Every Evening 06/20/2022 4 documented as of this encounter Plan of Treatment Not on file documented as of this encounter Procedures Procedure Name Priority Date/Time Associated Diagnosis Comments MM DIGITAL MAMMO SCREEN BILATERAL Routine 10/14/2023 9:05 AM EST Encounter for screening mammogram for malignant neoplasm of breast documented in this encounter Results * MM digital mammo screen bilateral (10/14/2023 [...] the next mammogram. At our facility, a craig marker is positioned over a visible skin [...] cancer. COMPARISON STUDY: ??2021, 2020, 2018 from [facility] FINDINGS: Craniocaudal and mediolateral oblique images of both breasts were obtained. The breast tissue is almost entirely fatty. There is no evidence of dominant mass, architectural distortion, or suspicious calcifications. The mammogram was interpreted with the benefit of computer aided detection (CAD). Clifford [facility] ORDERABLES F inal Result documented in this encounter Visit Diagnoses Diagnosis Encounter for screening mammogram for malignant neoplasm of breast documented in this encounter Care Teams Agricultural Economics Professor Relationship Specialty Start Date End Date Clifford Newell PA [address] [place] [address] [place] Ling [phone] PCP - General Physician Global Climate Change Researcher 10/14/23 documented as of this encounter
--- OUTSIDE RECORDS SUMMARY | 2024-08-03 17:01 | XMS_ITS | Encounter Summary ---
Author Organization [facility] [employer] Address [address] [place] [address] Care Team Providers Care Wreath Maker Name Role Phone Unavailable Primary Care Provider Unavailabl e Encounter Details Date Type Department Care Team (Late st Contact Info) Description 06/29/2023 Social Work [facility] [place] [address] [place] [id number] Kian James MSW Social History Tobacco Use Types Packs/Day Years [...] AM EDT documented as of this encounter Progress Notes * MP Myers - 06/29/2023 1:21 PM EDTSummary: SW/Transportation Provided Ms. Bailey two gas cards today to assist with transportation and mileage. Will continue to assist as needed. documented in this encounter Plan of Treatment Not on file documented as of this encounter Visit Diagnoses Not on filedocumented in this encounter
--- OUTSIDE RECORDS SUMMARY | 2024-08-03 17:01 | XMS_ITS | Encounter Summary ---
Author Organization [employer] [employer] Address [address] [place] [address] Care Team Providers Care Public Works Manager Name Role Phone Unavailable Primary Care Provider Unavailabl e Reason for Visit * Reason Comments Follow-up 1m f/u with labs and infusion and Xgeva Multiple myeloma without remission (HCC) Encounter Details Date Type Department Care Team (Late st Contact Info) Description 07/27/2023 11:15 AM EST Office Visit [facility] - [address] [address] Raimundo Pacheco MD [address] [facility] [address] [place] [address] Multiple myeloma without remission (HCC) [...] AM EST documented as of this encounter Last Filed Vital Signs Vital Sign Reading Time Taken Comments Blood Pressure 126/70 07/27/2023 11:29 AM EST Pulse 71 07/27/2023 11:29 AM EST Temperature 36.5 ??C (97.7 ??F) 07/27/2023 11:[address] Respiratory Rate 18 07/27/2023 11:29 AM EST Oxygen Saturation 95% 07/27/2023 11:29 AM EST Inhaled Oxygen Concentration - - Weight 125.9 kg (277 lb 8 oz) 07/27/2023 11:29 A M EST Height 172.7 cm (5' 7.99 ) 07/27/2023 11:[address] Body Mass Index 42.2 07/27/2023 11:29 AM EST documented in this encounter Progress Notes * Raimundo Pacheco MD - 07/27/2023 11:15 AM EST Chief Complaint: History of Present Illness: Francy Bailey is a 63 y.o. female who presents today for follow up of multiple myeloma. She is on durvalumab with steroids. She has had no new issues. She has some lower back pain. She has not any weight loss. She does not wish to have another transplant. She is without other additional complaints or concerns Past Medical History: Diagnosis Date ??? [...] 5362 mg with suppression of other immunoglobulins. C. Lytic lesions on x-ray. D. Anemia [...] Treatment Summary Treatment goal Palliative Plan Name [facility] Multiple Myeloma - daratumumab (Darzalex) IV d1,8,15,22 fb D1,15 fb d1 + pomalidomide(Pomalyst) PO d1-21 every 28 days Status Active Start Date 11/03/2022 End Date 10/19/2023 (Planned) Provider Raimundo Pacheco MD Chemotherapy pomalidomide 4 mg Cap, 4 mg, Oral, Daily, 1 of 1 cycle, Start date: --, End date: -- beacziyskeu-decslxgyfllbe-ovpj (DARZALEX FASPRO) 1,800 mg-30,000 unit/15 mL subcutaneous injection 1,800 mg, 1,800 mg, Subcutaneous, Once, 9 of 12 cycles Administration: 1,800 mg (11/03/2022), 1,800 mg (11/10/2022), 1,800 mg (12/01/2022), 1,800 mg (12/15/2022), 1,800 mg (12/22/2022), 1,800 mg (01/12/2023), 1,800 mg (02/02/2023), 1,800 mg (02/16/2023), 1,800 mg(06/01/2023), 1,800 mg (12/29/2022), 1,800 mg (01/20/2023), 1,800 mg (03/02/2023), 1,800 mg (03/16/2023), 1,800 mg (04/06/2023), 1,800 mg (04/20/2023), 1,800 mg (05/04/2023), 1,800 mg (05/18/2023), 1,800 mg (06/29/2023), 1,800 mg (07/27/2023) Allergies: Ampicillin, Codeine, Indomethacin, Morphine, and Penicillin [...] total) by mouth 2 (two) times daily. 20 tablet 0 ??? Tab-A-Avery 400 mcg Tab Take 1 tablet by mouth in the morning. ??? Xarelto 20 mg tablet SMARTSI Tablet(s) By Mouth Every Evening Current Facility-Administered Medications on File Prior to Visit Medication Dose Route Frequency Provider Last Rate Last Admin ??? [COMPLETED] acetaminophen (TYLENOL) tablet 650 mg 650 mg Oral Once Reilly Campos PharmD 650 mgat 07/27/23 1315 ??? [COMPLETED] yorhayuztiv-ojfilqnwvpqgk-xavh (DARZALEX FASPRO) 1,800 mg-30,000 unit/15 mL subcutaneous injection 1,800 mg 1,800 mg Subcutaneous Once Raimundo Pacheco MD 1,800 mg at 07/27/23 1352 ??? [COMPLETED] denosumab (XGEVA) subcutaneous injection 120 mg 120 mg Subcutaneous Once Frank Castanon PharmD BCPS 120 mg at 07/27/23 1352 ??? [COMPLETED] diphenhydrAMINE (BENADRYL) capsule 25 mg 25 mg Oral Once Reilly Campos PharmD 25 mg at 07/27/23 1315 Review of Systems: Review of Systems All other systems reviewed and are negative. Vitals: Vitals: 07/27/23 1129 BP: 126/70 Pulse: 71 Resp: 18 Temp: 97.7 ??F (36.5 ??C) SpO2: 95% Weight: 125.9 kg (277 lb 8 oz) Height: 1.727 m (5' 7.99 ) [...] motion and neck supple. Comments: Lower back pain upon palpation Neurological: General: No focal deficit present. Mental Status: She is alert. Relevant Results: Lab Patient Walk-In on 07/27/2023 Component Date Value Ref Range Status ??? WBC 07/27/2023 4.7 4.5 - 12.5 K/??L Final ??? RBC 07/27/2023 3.56 (L) 4.00 - 5.25 M/??L Final ??? Hemoglobin 07/27/2023 12.0 12.0 - 16.0 GM/DL Final ??? Hematocrit 07/27/2023 36.9 36.0 - 46.0 % Final ??? MCV 07/27/2023 104 (H) 80 - 100 fL Final ??? MCH 07/27/2023 33.7 26.0 - 34.0 pg Final ??? MCHC 07/27/2023 32.5 31.0 - 37.0 GM/DL Final ??? RDW 07/27/2023 12.1 12.0 - 16.8 % Final ??? Platelets 07/27/2023 152 140 - 440 K/CU MM Final ??? MPV 07/27/2023 9.9 7.4 - 10.4 fL Final ??? % Neutros 07/27/2023 46 45 - 80 % Final ??? % Lymphs 07/27/2023 41 15 - 45 % Final ??? % Monos 07/27/2023 10 0 - 10 % Final ??? % Eos 07/27/2023 2 0 - 5 % Final ??? % Baso 07/27/2023 0 0 - 3 % Final ??? # Neutros 07/27/2023 2.18 2.00 - 8.80 K/??L Final ??? # Lymphs 07/27/2023 1.93 0.70 - 5.50 K/??L Final ??? # Monos 07/27/2023 0.49 0.00 - 1.70 K/??L Final ??? # Eos 07/27/2023 0.10 0.00 - 0.80 K/??L Final ??? # Baso 07/27/2023 0.02 0.00 - 0.20 K/??L Final ??? Sodium 07/27/2023 143 136 - 146 meq/L Final ??? Potassium 07/27/2023 3.9 3.5 - 5.1 meq/L Final ??? Chloride 07/27/2023 111 102 - 112 meq/L Final ??? CO2 07/27/2023 29 21 - 32 meq/L Final ??? Calcium 07/27/2023 9.1 8.5 - 10.1 mg/dL Final ??? Glucose 07/27/2023 103 74 - 106 mg/dL Final ??? BUN 07/27/2023 14 7 - 22 mg/dL Final ??? Creatinine 07/27/2023 0.99 0.55 - 1.02 mg/dL Final ??? BUN/Creatinine 07/27/2023 14 8 - 20 Final ??? Albumin 07/27/2023 3.0 (L) 3.4 - 5.0 g/dL Final ??? Alkaline Phosphatase 07/27/2023 43 27 - 136 U/L Final ??? ALT 07/27/2023 16 12 - 78 U/L Final ??? AST 07/27/2023 15 5 - 37 U/L Final ??? Total Bilirubin 07/27/2023 0.4 0.2 - 1.3 mg/dL Final ??? Protein, Total 07/27/2023 6.6 6.4 - 8.2 gm/dL Final ??? Anion Gap 07/27/2023 7 (L) 9 - 20 Final ??? A/G Ratio 07/27/2023 0.8 (L) 1.1 - 2.5 Final ??? Globulin 07/27/2023 3.6 1.5 - 4.5 g/dL Final ??? Osmolality Calc 07/27/2023 285.7 Final ? ? eGFR (mL/min/1.73m2) 07/27/2023 >60 >=60 mL/min/1.73m2 Final ESTIMATED GFR IS NOT ACCURATE CREATININE CLEARANCE IN PREDICTING GLOMERULAR FILTRATION RATE. ESTIMATED GFR IS NOT APPLICABLE FOR DIALYSIS PATIENTS. No results found. Cancer Staging No matching staging information was found for the patient. Plan: Her most recent M spike came up slightly. The free light chain ratio was a worthless test in her. I am not can to change her regimen yet unless we see continued worsening. She will get [id number] mg today subcutaneously premedicated with dexamethasone 20 mg IV and Zofran 8 mg. I will see her in a month. I have answered her questions. She wanted me to renew her pain medicine but told me the wrong type and so I will have the nurse check into that. I have no other recommendations Signed: Electronically signed by RAIMUNDO PACHECO MD 07/27/23 6:17 PM EST No primary care provider on file. US AGENT documented in this encounter Plan of Treatment Not on file documented as of this encounter Results * (ABNORMAL) Protein Electrophoresis w Rflx to RALPH(SENDOUT) (08/24/2023 11:30 AM EST) Total Protein, Serum 6.4 6.3 - 8.2 g/dL 08/27/2023 7:55 PM EST [facility] Albumin 3.56(L) 3.75 - 5.01 g/dL 08/27/2023 7:55 PM EST [facility] Alpha 1 Globulin 0.28 0.19 - 0.46 g/dL 08/27/2023 7:55 PM EST [facility] Alpha 2 Globulin 0.79 0.48 - 1.05 g/dL 08/27/2023 7:55 PM EST [facility] Beta Globulin 1.52(H) 0.48 - 1.10 g/dL 08/27/2023 7:55 PM EST [facility] Gamma 0.24(L) 0.62 - 1.51 g/dL 08/27/2023 7:55 PM EST [facility] Immunofixation Reflex RALPH Done 08/27/2023 7:55 PM EST [facility] Monoclonal Protein 1.23 g/dL 2022 7:55 PM EST [facility] SPEP/RALPH Interpretation See Note 08/27/2023 7:55 PM EST [facility] Senior Moments Comment: Monoclonal spike in the beta region. The quantitation may include complement and/or transferrin components. Measurement of total Immunoglobulin (IgA, IgG, or IgM) can be used for the quantitation of the monoclonal spike instead. Hypogammaglobulinemia. RALPH gel pattern shows an IgA type lambda monoclonal protein with an additional faint band in IgG kappa. EER Serum Protein Electrophoresis Reflex See Note 08/27/2023 7:55 PM EST [facility] Comment: Authorized individuals can access the [facility] Enhanced Report using the following link: [email or web address] Performed By: [facility] [address] [place] [address] Senior Software Engineer Analytics: Parker Rangel MD, PhD CLIA Number: [id number] Blood Venipuncture / Unknown 08/24/2023 11:30 AM EST 08/24/2023 11:47 AM EST us Raimundo Pacheco MD LAB BLOOD ORDERABLES Final Res ult [facility] [address] [place] [address], [facility] [phone] * Lorenzo-Lambda Quant FLC with Ratio(SENDOUT) (08/24/2023 11:30 AM EST) Lorenzo Qnt Free Light Chains 4.98 3.30 - 19.40 mg/L 08/26/2023 12:43 AM EST [facility] Comment: INTERPRETIVE INFORMATION: Lorenzo Qnt Free Light Chains Undetected antigen excess is a rare event but cannot be excluded. Free light chain results should always be interpreted in conjunction with other clinical and laboratory findings. Lambda Qnt Free Light Chains 18.38 5.71 - 26.30 mg/L 08/26/2023 12:43 AM EST [facility] Comment: INTERPRETIVE INFORMATION: Lambda Qnt Free Light Chains Undetected antigen excess is a rare event but cannot be excluded. Free light chain results should always be interpreted in conjunction with other clinical and laboratory findings. Lorenzo/Lambda Free Light Chain Ratio 0.27 0.26 - 1.65 08/26/2023 12:43 AM EST [facility] Comment: Performed By: [facility] [address] [place] [address] Senior Software Engineer Analytics: Parker Rangel MD, PhD CLIA Number: [id number] Blood Venipuncture / Unknown 08/24/2023 11:30 AM EST 08/24/2023 11:47 AM EST us Raimundo Pacheco MD LAB BLOOD ORDERABLES Final Res ult [facility] [address] [place] [address], [facility] [phone] * (ABNORMAL) Oncology Chemistry Panel (08/24/2023 11:30 AM EST) Sodium 145 136 - 146 meq/L 08/24/2023 11:49 AM EST [facility] Potassium 3.7 3.5 - 5.1 meq/L 08/24/2023 11:49 AM EST [facility] Chloride 111(H) 98 - 108 meq/L 08/24/2023 11:49 AM EST [facility] CO2 27 22 - 29 meq/L 08/24/2023 11:49 AM EST [facility] Anion Gap 11 9 - 20 08/24/2023 11:49 AM EST [facility] BUN 13 7 - 18 mg/dL 08/24/2023 11:49 AM EST [facility] Creatinine 1.10 0.60 - 1.10 mg/dL 08/24/2023 11:49 AM EST [facility] BUN/Creatinine 12 8 - 20 08/24/2023 11:49 AM EST [facility] Glucose 76 70 - 105 mg/dL 08/24/2023 11:49 AM EST [facility] Calcium Ionized (mg/dL) 4.98 4.36 - 5.20 mg/dL 08/24/2023 11:49 AM EST [facility] Blood Venipuncture / Unknown 08/24/2023 11:30 AM EST 08/24/2023 11:44 AM EST us Raimundo Pacheco MD LAB BLOOD ORDERABLES Final Res ult [facility] [place] [id number] [address] [phone] documented in this encounter Visit Diagnoses Diagnosis Multiple myeloma without remission (HCC) documented in this encounter
--- OUTSIDE RECORDS SUMMARY | 2024-08-03 17:01 | XMS_ITS | Encounter Summary ---
Author Organization [employer] Address [address] [place] [address] Care Team Providers Care Quality Assurance Coach Name Role Phone Unavailable Primary Care Provider Unavailabl e Reason for Visit * Episode Based Medication (Routine) - Closed Specialty Diagnoses / Procedures Referred By Ana Paula anne Referred To Contact Diagnoses Multiple myeloma without remission (HCC) Procedures LA DARATUMUMAB, HYALURONIDASE Daratumumab-[id number] Caleb Pacheco MD [address] [facility] [address] [place] [address] Phone: tel: fax: [facility] [place] [address] Phone: tel: fax: Referral ID Status Reason Start Date Expiration Date Visits Re quested Visits Authorized [id number] Closed 10/20/2022 05/14/2024 1 100 Encounter Details Date Type Department Care Team (Latest Contact Info) Description 07/27/2023 11:00 AM EST Lab Patient Walk-In [facility] [place] [address] [place] [address] Caleb Pacheco MD [address] [facility] [address] [place] [address] Multiple myeloma without remission [...] Associated Diagnosis Comments IMMUNOFIX ELECTROPHORESIS BILL(SENDOUT) Routine 07/27/2023 10:50 AM EST Multiple myeloma without remission (HCC) CBC W/ AUTO DIFF STAT 07/27/2023 10:5 0 AM EST Multiple myeloma without remission (HCC) PROTEIN ELECTROPHORESIS W RFLX TO RALPH(SENDOUT) Routine 07/27/2023 10:50 AM EST Multiple myeloma without remission (HCC) KAPPA-LAMBDA QUANT FLC WITH RATIO(SENDOUT) Routine 07/27/2023 10:50 AM EST Multiple myeloma without remission (HCC) IMMUNOGLOBULIN M(SENDOUT) Routine 07/27/2023 10:50 AM EST Multiple myeloma without remission (HCC) IMMUNOGLOBULIN G(SENDOUT) Routine 07/27/2023 10:50 AM EST Multiple myeloma without remission (HCC) IMMUNOGLOBULIN A(SENDOUT) Routine 07/27/2023 10:50 AM EST Multiple myeloma without remission (HCC) COMPREHENSIVE METABOLIC PANEL STAT 07/27/2023 10:50 AM EST Multiple myeloma without remission (HCC) documented in this encounter Results * Immunofix Electrophoresis Bill(SENDOUT) (07/27/2023 10:50 AM EST) Pathologist [facility] Immunofix Electrophoresis Bill Billed 07/30/2023 1:01 PM EST Chargeback Comment: Performed By: [facility] [employer] [address] [place] [address] Medical Reviewer: Parker Rangel MD, PhD CLIA Number: [id number] Blood Venipuncture / Unknown 07/27/2023 10:50 AM EST 07/27/2023 10:54 AM EST Caleb Pacheco MD LAB BLOOD ORDERABLES Final Res ult Performing Organization Address [facility] de Phone Number [facility] [employer] [address] [place] [address] * (ABNORMAL) Immunoglobulin A(SENDOUT) (07/27/2023 10:50 AM EST) [facility] Immunoglobulin A 758(H) 68 - 408 mg/dL 07/30/2023 12:39 PM EST [employer] Comment: REFERENCE INTERVAL: Immunoglobulin A Access complete set of age- and/or gender-specific reference intervals for this test in the [facility] Laboratory Test Directory (Dine in). Performed By: [facility] [employer] [address] [place] [address] Medical Reviewer: Parker Rangel MD, PhD CLIA Number: [id number] Blood Venipuncture / Unknown 07/27/2023 10:50 AM EST 07/27/2023 10:54 AM EST Caleb Pacheco MD LAB BLOOD ORDERABLES Final Res ult Performing Organization Address [facility] de Phone Number [facility] [employer] [address] [place] [address] * (ABNORMAL) Immunoglobulin M(SENDOUT) (07/27/2023 10:50 AM EST) Pathologist [facility] Immunoglobulin M 14(L) 35 - 263 mg/dL 07/30/2023 12:39 PM EST Chargeback Comment: REFERENCE INTERVAL: Immunoglobulin M Access complete set of age- and/or gender-specific reference intervals for this test in the [facility] Test Directory (Dine in). Performed By: [employer] [address] [place] [address] Medical Reviewer: Parker Rangel MD, PhD CLIA Number: [id number] Blood Venipuncture / Unknown 07/27/2023 10:50 AM EST 07/27/2023 10:54 AM EST Caleb Pacheco MD LAB BLOOD ORDERABLES Final Res ult Performing Organization Address [facility] de Phone Number [address] [phone] * (ABNORMAL) Immunoglobulin G(SENDOUT) (07/27/2023 10:50 AM EST) Immunoglobulin G 248(L) 768 - 1632 mg/dL 07/30/2023 12:39 PM EST [facility] Comment: REFERENCE INTERVAL: Immunoglobulin G Access complete set of age- and/or gender-specific reference intervals for this test in the [facility] Test Directory (Dine in). Performed By: [employer] [address] [place] [address] Medical Reviewer: Parker Rangel MD, PhD CLIA Number: [id number] Blood Venipuncture / Unknown 07/27/2023 10:50 AM EST 07/27/2023 10:54 AM EST Caleb Pacheco MD LAB BLOOD ORDERABLES Final Res ult Performing Organization Address [facility] Co de Phone Number [address] [phone] * (ABNORMAL) Comprehensive metabolic panel (07/27/2023 10:50 AM EST) Sodium 143 136 - 146 meq/L 07/27/2023 11:38 AM EST [facility] Potassium 3.9 3.5 - 5.1 meq/L 07/27/2023 11:38 AM EST [facility] Chloride 111 102 - 112 meq/L 07/27/2023 11:38 AM [facility] CO2 29 21 - 32 meq/L 07/27/2023 11:38 AM [facility] Calcium 9.1 8.5 - 10.1 mg/dL 07/27/2023 11:38 AM [facility] Glucose 103 74 - 106 mg/dL 07/27/2023 11:38 AM [facility] BUN 14 7 - 22 mg/dL 07/27/2023 11:38 AM [facility] Creatinine 0.99 0.55 - 1.02 mg/dL 07/27/2023 11:38 AM [facility] BUN/Creatinine 14 8 - 20 07/27/2023 11:38 AM [facility] Albumin 3.0(L) 3.4 - 5.0 g/dL 07/27/2023 11:38 AM [facility] Alkaline Phosphatase 43 27 - 136 U/L 07/27/2023 11:38 AM [facility] ALT 16 12 - 78 U/L 07/27/2023 11:38 AM [facility] AST 15 5 - 37 U/L 07/27/2023 11:38 AM [facility] Total Bilirubin 0.4 0.2 - 1.3 mg/dL 07/27/2023 11:38 AM [facility] Protein, Total 6.6 6.4 - 8.2 gm/dL 07/27/2023 11:38 AM [facility] Anion Gap 7(L) 9 - 20 07/27/2023 11:38 AM [facility] A/G Ratio 0.8(L) 1.1 - 2.5 07/27/2023 11:38 AM [facility] Globulin 3.6 1.5 - 4.5 g/dL 07/27/2023 11:38 AM [facility] Osmolality Calc 285.7 11:38 AM [facility] eGFR (mL/min/1.73m2) >60 >=60 mL/min/1.7 3m2 07/27/2023 11:38 AM [facility] Comment:ESTIMATED GFR IS NOT ACCURATE CREATININE CLEARANCE IN PREDICTING GLOMERULAR FILTRATION RATE. ESTIMATED GFR IS NOT APPLICABLE FOR DIALYSIS PATIENTS. Blood Venipuncture / Unknown 07/27/2023 10:50 AM EST 07/27/2023 10:54 AM EST us Caleb Pacheco MD LAB BLOOD ORDERABLES Final Res ult [facility] [address] [address] [phone] * (ABNORMAL) CBC with Automated Diff (07/27/2023 [...] ult [facility] [address] [place] [address], [facility] [phone] * (ABNORMAL) Protein Electrophoresis w Rflx to RALPH(SENDOUT) (07/27/2023 10:50 AM EST) Total Protein, Serum 6.1(L) 6.3 - 8.2 g/dL 07/30/2023 1:01 PM EST [facility] Albumin 3.45(L) 3.75 - 5.01 g/dL 07/30/2023 1:01 PM EST [facility] Alpha 1 Globulin 0.26 0.19 - 0.46 g/dL 07/30/2023 1:01 PM [facility] Alpha 2 Globulin 0.78 0.48 - 1.05 g/dL 07/30/2023 1:01 PM [facility] Beta Globulin 1.36(H) 0.48 - 1.10 g/dL 07/30/2023 1:01 PM [facility] Gamma 0.25(L) 0.62 - 1.51 g/dL 07/30/2023 1:01 PM [facility] Immunofixation Reflex RALPH Done 07/30/2023 1:01 PM [facility] Monoclonal Protein 1.09 g/dL 2022 1:01 PM [facility] SPEP/RALPH Interpretation See Note 07/30/2023 1:01 PM [facility] Comment: [...] EER Serum Protein Electrophoresis Reflex See Note 07/30/2023 1:01 PM [facility] Comment: Authorized individuals can access the [facility] Enhanced Report using the following link: [email or web address] Performed By: [employer] [address] [place] [address] Medical Reviewer: Parker Rangel MD, PhD CLIA Number: [id number] Blood Venipuncture / Unknown 07/27/2023 10:50 AM EST 07/27/2023 10:54 AM EST us Caleb Pacheco MD LAB BLOOD ORDERABLES Final Res ult [facility] [employer] [address] [place] [address], [facility] [phone] * Apison-Lambda Quant FLC with Ratio(SENDOUT) (07/27/2023 10:50 AM EST) Apison Qnt Free Light Chains 6.02 3.30 - 19.40 mg/L 07/28/2023 9:30 PM EST Chargeback Comment: INTERPRETIVE INFORMATION: Apison Qnt Free Light Chains Undetected antigen excess is a rare event but cannot be excluded. Free light chain results should always be interpreted in conjunction with other clinical and laboratory findings. Lambda Qnt Free Light Chains 17.09 5.71 - 26.30 mg/L 07/28/2023 9:30 PM EST [employer] Comment: INTERPRETIVE INFORMATION: Lambda Qnt Free Light Chains Undetected antigen excess is a rare event but cannot be excluded. Free light chain results should always be interpreted in conjunction with other clinical and laboratory findings. Apison/Lambda Free Light Chain Ratio 0.35 0.26 - 1.65 07/28/2023 9:30 PM EST [employer] Comment: Performed By: [employer] [address] [place] [address] Medical Reviewer: Parker Rangel MD, PhD CLIA Number: [id number] Blood Venipuncture / Unknown 07/27/2023 10:50 AM EST 07/27/2023 10:54 AM EST us Caleb Pacheco MD LAB BLOOD ORDERABLES Final Res ult [employer] [address] [place] [address], [facility] [phone] documented in this encounter Visit Diagnoses Diagnosis Multiple myeloma without remission (HCC) documented in this encounter
--- OUTSIDE RECORDS SUMMARY | 2024-08-03 17:01 | XMS_ITS | Encounter Summary ---
Author Organization [employer] Address [address] [place] [address] Care Team Providers Care Monitoring Tech Name Role Phone Unavailable Primary Care Provider Unavailabl e Encounter Details Date Type Department Care Team (Late st Contact Info) Description 09/15/2023 Orders Only [facility] [address] [place] [address] Caleb Pacheco MD [address] [facility] [address] [place] [address] Multiple myeloma without remission [...] encounter Results * (ABNORMAL) Comprehensive metabolic panel (09/21/2023 11:10 AM EST) Sodium 143 136 - 146 meq/L 09/21/2023 11:56 AM EST [facility] Potassium 3.4(L) 3.5 - 5.1 meq/L 09/21/2023 11:56 AM [facility] Chloride 112 102 - 112 meq/L 09/21/2023 11:56 AM [facility] CO2 23 21 - 32 meq/L 09/21/2023 11:56 AM [facility] Calcium 9.1 8.5 - 10.1 mg/dL 09/21/2023 11:56 AM [facility] Glucose 102 74 - 106 mg/dL 09/21/2023 11:56 AM [facility] BUN 10 7 - 22 mg/dL 09/21/2023 11:56 AM [facility] Creatinine 1.09(H) 0.55 - 1.02 mg/dL 09/21/2023 11:56 AM [facility] BUN/Creatinine 9 8 - 20 09/21/2023 11:56 AM [facility] Albumin 3.2(L) 3.4 - 5.0 g/dL 09/21/2023 11:56 AM [facility] Alkaline Phosphatase 54 27 - 136 U/L 09/21/2023 11:56 AM [facility] ALT 16 12 - 78 U/L 09/21/2023 11:56 AM [facility] AST 19 5 - 37 U/L 09/21/2023 11:56 AM [facility] Total Bilirubin 0.5 0.2 - 1.3 mg/dL 09/21/2023 11:56 AM [facility] Protein, Total 7.3 6.4 - 8.2 gm/dL 09/21/2023 11:56 AM [facility] Anion Gap 11 9 - 20 09/21/2023 11:56 AM [facility] A/G Ratio 0.8(L) 1.1 - 2.5 09/21/2023 11:56 AM [facility] Globulin 4.1 1.5 - 4.5 g/dL 09/21/2023 11:56 AM [facility] Osmolality Calc 284.2 11:56 AM [facility] eGFR (mL/min/1.73m2) 57(L) >=60 mL/min/1.7 3m2 09/21/2023 11:56 AM EST [facility] Comment:ESTIMATED GFR IS NOT ACCURATE CREATININE CLEARANCE IN PREDICTING GLOMERULAR FILTRATION RATE. ESTIMATED GFR IS NOT APPLICABLE FOR DIALYSIS PATIENTS. Blood Venipuncture / Unknown 09/21/2023 11:10 AM EST 09/21/2023 11:14 AM EST us Caleb Pacheco MD LAB BLOOD ORDERABLES Final Res ult [facility] [address] [phone] documented in this encounter Visit Diagnoses Diagnosis Multiple myeloma without remission (HCC)- Primary documented in this encounter
--- OUTSIDE RECORDS SUMMARY | 2024-08-03 17:01 | XMS_ITS | Encounter Summary ---
Author Organization [employer] Address [address] [place] [address] Care Team Providers Care Game Warden Name Role Phone Unavailable Primary Care Provider Unavailabl e Reason for Visit * Reason Comments Follow-up F/u with labs and in jection Multiple myeloma without remission (HCC) * Auth/Cert (Routine) Specialty Diagnoses / Procedures Referred By Ana Paula anne Referred To Contact [facility] [address] [place] [address] Phone: tel: fax: Referral ID Status Reason Start Date Expiration Date Visits Re quested Visits Authorized [id number] 1 1 Encounter Details Date Type Department Care Team (Late st Contact Info) Description 08/24/2023 11:30 AM EST Office Visit [facility] [address] [place] [address] Raimundo Pacheco MD [address] [place] [address] Multiple myeloma without remission (HCC) [...] Sign Reading Time Taken Comments Blood Pressure 170/88 08/24/2023 11:48 AM EST Pulse 71 08/24/2023 11:48 AM EST Temperature 36.7 ??C (98.1 ??F) 08/24/2023 11:[address] Respiratory Rate 18 08/24/2023 11:48 AM EST Oxygen Saturation 98% 08/24/2023 11:48 AM EST Inhaled Oxygen Concentration - - Weight 125.2 kg (276 lb) 08/24/2023 11:48 AM EST Height 172.7 cm (5' 7.99 ) 08/24/2023 11:[address] Body Mass Index 41.98 08/24/2023 11:48 AM EST documented in this encounter Progress Notes * Raimundo Pacheco MD - 08/24/2023 11:30 AM EST Chief Complaint: History of Present Illness: Francy Bailey is a 63 y.o. female who presents today for follow up of multiple myeloma. She is on Darzalex and steroids. She has less bone pain today than when she was reported before. She has maintained her appetite and activity. She is without any new complaints today Past Medical History: Diagnosis Date ??? Asthma [...] Treatment Summary Treatment goal Palliative Plan Name [facility] Multiple Myeloma - daratumumab (Darzalex) IV d1,8,15,22 fb D1,15 fb d1 + pomalidomide(Pomalyst) PO d1-21 every 28 days Status Active Start Date 11/03/2022 End Date 10/19/2023 (Planned) Provider Raimundo Pacheco MD Chemotherapy pomalidomide 4 mg Cap, 4 mg, Oral, Daily, 1 of 1 cycle, Start date: --, End date: -- fwckfhhoqqy-iixbwagjwdhrg-loai (DARZALEX FASPRO) 1,800 mg-30,000 unit/15 mL subcutaneous injection 1,800 mg, 1,800 mg, Subcutaneous, Once, 10 of 12 cycles Administration: 1,800 mg (11/03/2022), 1,800 mg (11/10/2022), 1,800 mg (12/01/2022), 1,800 mg (12/15/2022), 1,800 mg (12/22/2022), 1,800 mg (01/12/2023), 1,800 mg (02/02/2023), 1,800 mg (02/16/2023), 1,800 mg(06/01/2023), 1,800 mg (12/29/2022), 1,800 mg (01/20/2023), 1,800 mg (03/02/2023), 1,800 mg (03/16/2023), 1,800 mg (04/06/2023), 1,800 mg (04/20/2023), 1,800 mg (05/04/2023), 1,800 mg (05/18/2023), 1,800 mg (06/29/2023), 1,800 mg (07/27/2023), 1,800 mg (08/24/2023) Allergies: Ampicillin, Codeine, Indomethacin, Morphine, and Penicillin [...] 2 (two) times daily. 20 tablet 0 Current Facility-Administered Medications on File Prior to Visit Medication Dose Route Frequency Provider Last Rate Last Admin ??? [COMPLETED] acetaminophen (TYLENOL) tablet 650 mg 650 mg Oral Once Reilly Campos PharmD 650 mgat 08/24/23 1245 ??? [COMPLETED] jvtivfinzoz-gxrvftnwwatpu-umix (DARZALEX FASPRO) 1,800 mg-30,000 unit/15 mL subcutaneous injection 1,800 mg 1,800 mg Subcutaneous Once Raimundo Pacheco MD 1,800 mg at 08/24/23 1309 ??? [COMPLETED] denosumab (XGEVA) subcutaneous injection 120 mg 120 mg Subcutaneous Once Frank Castanon PharmD BCPS 120 mg at 08/24/23 1309 ??? [COMPLETED] diphenhydrAMINE (BENADRYL) capsule 25 mg 25 mg Oral Once Reilly Campos PharmD 25 mg at 08/24/23 1245 Review of Systems: Review of Systems All other systems reviewed and are negative. Vitals: Vitals: 08/24/23 1148 BP: (!) 170/88 Pulse: 71 Resp: 18 Temp: 98.1 ??F (36.7 ??C) SpO2: 98% Weight: 125.2 kg (276 lb) Height: 1.727 m (5' 7.99 ) Physical Exam: Physical Exam Vitals reviewed. Constitutional: Appearance: Normal appearance. HENT: Head: Normocephalic and atraumatic. Eyes: Extraocular Movements: Extraocular movements intact. Pupils: [...] alert. Relevant Results: Lab Patient Walk-In on 08/24/2023 Component Date Value Ref Range Status ??? Sodium 08/24/2023 145 136 - 146 meq/L Final ??? Potassium 08/24/2023 3.7 3.5 - 5.1 meq/L Final ??? Chloride 08/24/2023 111 (H) 98 - 108 meq/L Final ??? CO2 08/24/2023 27 22 - 29 meq/L Final ??? Anion Gap 08/24/2023 11 9 - 20 Final ??? BUN 08/24/2023 13 7 - 18 mg/dL Final ??? Creatinine 08/24/2023 1.10 0.60 - 1.10 mg/dL Final ??? BUN/Creatinine 08/24/2023 12 8 - 20 Final ??? Glucose 08/24/2023 76 70 - 105 mg/dL Final ??? Calcium Ionized (mg/dL) 08/24/2023 4.98 4.36 - 5.20 mg/dL Final ??? WBC 08/24/2023 4.6 4.5 - 12.5 K/??L Final ??? RBC 08/24/2023 3.74 (L) 4.00 - 5.25 M/??L Final ??? Hemoglobin 08/24/2023 12.5 12.0 - 16.0 GM/DL Final ??? Hematocrit 08/24/2023 39.3 36.0 - 46.0 % Final ??? MCV 08/24/2023 105 (H) 80 - 100 fL Final ??? MCH 08/24/2023 33.4 26.0 - 34.0 pg Final ??? MCHC 08/24/2023 31.8 31.0 - 37.0 GM/DL Final ??? RDW 08/24/2023 12.2 12.0 - 16.8 % Final ??? Platelets 08/24/2023 162 140 - 440 K/CU MM Final ??? MPV 08/24/2023 10.6 (H) 7.4 - 10.4 fL Final ??? % Neutros 08/24/2023 61 45 - 80 % Final ??? % Lymphs 08/24/2023 28 15 - 45 % Final ??? % Monos 08/24/2023 9 0 - 10 % Final ??? % Eos 08/24/2023 2 0 - 5 % Final ??? % Baso 08/24/2023 0 0 - 3 % Final ??? # Neutros 08/24/2023 2.81 2.00 - 8.80 K/??L Final ??? # Lymphs 08/24/2023 1.29 0.70 - 5.50 K/??L Final ??? # Monos 08/24/2023 0.42 0.00 - 1.70 K/??L Final ??? # Eos 08/24/2023 0.07 0.00 - 0.80 K/??L Final ??? # Baso 08/24/2023 0.01 0.00 - 0.20 K/??L Final ??? Sodium 08/24/2023 143 136 - 146 meq/L Final ??? Potassium 08/24/2023 3.6 3.5 - 5.1 meq/L Final ??? Chloride 08/24/2023 112 102 - 112 meq/L Final ??? CO2 08/24/2023 26 21 - 32 meq/L Final ??? Calcium 08/24/2023 9.0 8.5 - 10.1 mg/dL Final ??? Glucose 08/24/2023 96 74 - 106 mg/dL Final ??? BUN 08/24/2023 13 7 - 22 mg/dL Final ??? Creatinine 08/24/2023 0.94 0.55 - 1.02 mg/dL Final ??? BUN/Creatinine 08/24/2023 14 8 - 20 Final ??? Albumin 08/24/2023 3.1 (L) 3.4 - 5.0 g/dL Final ??? Alkaline Phosphatase 08/24/2023 46 27 - 136 U/L Final ??? ALT 08/24/2023 17 12 - 78 U/L Final ??? AST 08/24/2023 18 5 - 37 U/L Final ??? Total Bilirubin 08/24/2023 0.5 0.2 - 1.3 mg/dL Final ??? Protein, Total 08/24/2023 6.8 6.4 - 8.2 gm/dL Final ??? Anion Gap 08/24/2023 9 9 - 20 Final ??? A/G Ratio 08/24/2023 0.8 (L) 1.1 - 2.5 Final ??? Globulin 08/24/2023 3.7 1.5 - 4.5 g/dL Final ??? Osmolality Calc 08/24/2023 285.0 Final ? ? eGFR (mL/min/1.73m2) 08/24/2023 >60 >=60 mL/min/1.73m2 Final ESTIMATED GFR IS NOT ACCURATE CREATININE CLEARANCE IN PREDICTING GLOMERULAR FILTRATION RATE. ESTIMATED GFR IS NOT APPLICABLE FOR DIALYSIS PATIENTS. No results found. Cancer Staging No matching staging information was found for the patient. Plan: Her monoclonal protein has been around 1. It was at 5 g at diagnosis. We will continue the Darzalex at 1800 mg subcutaneously today premedicate with dexamethasone 20 and Zofran 8. She sees me once a month. I have answered her questions. For now she is stable. She is not willing to consider repeat bone marrow transplant or other therapy such as that. I see no reason to change her treatment at this time Signed: Electronically signed by RAIMUNDO PACHECO MD 08/24/23 5:53 PM EST No primary care provider on file. GER LIGHTING documented in this encounter Plan of Treatment Not on file documented as of this encounter Results * (ABNORMAL) Protein Electrophoresis w Rflx to RALPH(SENDOUT) (09/21/2023 11:10 AM EST) Total Protein, Serum 6.7 6.3 - 8.2 g/dL 09/25/2023 8:38 PM EST [facility] [employer] Albumin 3.61(L) 3.75 - 5.01 g/dL 09/25/2023 8:38 PM EST [facility] [employer] Alpha 1 Globulin 0.27 0.19 - 0.46 g/dL 09/25/2023 8:38 PM EST [facility] [employer] Alpha 2 Globulin 0.82 0.48 - 1.05 g/dL 09/25/2023 8:38 PM EST [facility] [employer] Beta Globulin 1.74(H) 0.48 - 1.10 g/dL 09/25/2023 8:38 PM EST [facility] Gamma 0.25(L) 0.62 - 1.51 g/dL 09/25/2023 8:38 PM EST [facility] [employer] Immunofixation Reflex RALPH Done 09/25/2023 8:38 PM EST [facility] [employer] Monoclonal Protein 1.44 g/dL 2023 8:38 PM EST [facility] [employer] SPEP/RALPH Interpretation See Note 09/25/2023 8:38 PM EST [facility] [employer] Comment: Monoclonal spike in the beta region. [...] Electrophoresis Reflex See Note 09/25/2023 8:38 PM [facility] [employer] Comment: Authorized individuals can access the [employer] Enhanced Report using the following link: [email or web address] Performed By: [facility] [address] [place] [id number] [facility] Animal Care: Parker Rangel MD, PhD CLIA Number: [id number] Blood Venipuncture / Unknown 09/21/2023 11:10 AM EST 09/21/2023 11:14 AM EST Raimundo Pacheco MD LAB BLOOD ORDERABLES Final Res ult [facility] [place] [place] [address], [facility] [phone] * (ABNORMAL) Oncology Chemistry Panel (09/21/2023 11:10 [...] 11:10 AM EST 09/21/2023 11:14 AM EST Raimundo Pacheco MD LAB BLOOD ORDERABLES Final Res ult [facility] [address] [place] [address], [facility] [phone] * (ABNORMAL) CBC with automated diff (09/21/2023 [...] Final Res ult [facility] [address] [facility] [place] [address], [facility] [phone] documented in this encounter Visit Diagnoses Diagnosis Multiple myeloma without remission (HCC) documented in this encounter
--- OUTSIDE RECORDS SUMMARY | 2024-08-03 17:01 | XMS_ITS | Encounter Summary ---
Author Organization [employer] Address [address] [place] [address] Care Team Providers Care Swing Grinder Name Role Phone Unavailable Primary Care Provider Unavailabl e Encounter Details Date Type Department Care Team (Late st Contact Info) Description 07/29/2023 Orders Only [facility] - [address] [facility] [address] [place] [phone] Mya Aaron PA-C [address] [place] [address] Multiple myeloma without remission (HCC) (Primary Dx); Urinary incontinence, unspecified type Social History Tobacco Use Types Packs/Day Years [...] Diagnosis Multiple myeloma without remission (HCC)- Primary Urinary incontinence, unspecified type documented in this encounter
--- OUTSIDE RECORDS SUMMARY | 2024-08-03 17:01 | XMS_ITS | Encounter Summary ---
Author Organization [employer] Address [address] [place] [address] Care Team Providers Care Billet Recorder Name Role Phone Unavailable Primary Care Provider Unavailabl e Reason for Visit * Reason Comments Injections * Episode Based Medication (Routine) - Closed Specialty Diagnoses / Procedures Referred By Ana Paula anne Referred To Contact Diagnoses Multiple myeloma without remission (HCC) Procedures ME DARATUMUMAB, HYALURONIDASE Daratumumab-[id number] Caleb Pacheco MD [address] [place] [address] Phone: tel: fax: [facility] - [address] [facility] [address] [place] [address] Phone: tel: fax: Referral ID Status Reason Start Date Expiration Date Visits Re quested Visits Authorized [id number] Closed 10/20/2022 05/14/2024 1 100 Encounter Details Date Type Department Care Team (Late st Contact Info) Description 06/29/2023 11:30 AM EDT Infusion [facility] - [place] [address] [place] [address] Caleb Pacheco MD [address] [facility] [address] [place] [address] Multiple myeloma without remission (HCC) [...] Progress Notes * Myla Franco RN - 06/29/2023 11:30 AM EDTSummary: discharge 1340: Tolerated injections. Discharge home. SM documented in this encounter Plan of Treatment Not on file documented as of this encounter Visit Diagnoses Diagnosis Multiple myeloma without remission (HCC)- Primary documented in this encounter Administered Medications Inactive Administered Medications - up to 3 most recent administrations Medication Order MAR Action Action Date Dose Rate Site acetaminophen (TYLENOL) tablet 650 mg 650 mg Once, oral, On Wed06/29/23 at 1300, For 1 dose, Recommended maximum dose of acetaminophen is 4000 mg from all sources in 24 hoursIndications:Multip le myeloma without remission (HCC) Given 06/29/2023 12:45 PM EDT 650 mg daratum[facility]ida [facility] (DARZALEX FASPRO) 1,800 mg-30,000 unit/15 mL subcutaneous injection 1,800 mg 1,800 mg Once, subcutaneous, at 300 mL/hr, On Wed06/29/23 at 1300, For 1 dose, FLAT DOSING Administer into the subcutaneous tissue of the abdomen about 3 inches to the right or left of the navel over 3-5 minutes. Rotate injection sites for successive injections.Indications: Multiple myeloma without remission (HCC) Given 06/29/2023 1:33 PM EDT 1,800 mg 300 mL/hr Abdominal Tissue denosumab (XGEVA) subcutaneous injection 120 mg 120 mg Once, subcutaneous, On Wed06/29/23 at 1300, For 1 dose, * Refrigerated * Bring to room temperature 15 to 30 minutes prior to administration., This medication is restricted to use in outpatients only. Is this patient in outpatient status? YesIndications:Multiple myeloma without remission (HCC) Given 06/29/2023 1:33 PM EDT 120 mg Right Arm diphenhydrAMINE (BENADRYL) capsule 25 mg 25 mg Once, oral, On Wed06/29/23 at 1300, For 1 dose,Indications:Multip le myeloma without remission (HCC) Given 06/29/2023 12:45 PM EDT 25 mg documented in this encounter
--- OUTSIDE RECORDS SUMMARY | 2024-08-03 17:01 | XMS_ITS | Encounter Summary ---
Author Organization [employer] Address [address] [place] [address] Care Team Providers Care Business Functional Analyst Name Role Phone Unavailable Primary Care Provider Unavailabl e Encounter Details Date Type Department Care Team (Late st Contact Info) Description 08/22/2023 Orders Only [facility] - [place] [address] [place] [address] Caleb Pacheco MD [address] [facility] [address] [place] [address] Multiple myeloma without remission (HCC) [...] encounter Results * (ABNORMAL) Comprehensive metabolic panel (08/24/2023 11:30 AM EST) Sodium 143 136 - 146 meq/L 08/24/2023 12:39 PM [facility] Potassium 3.6 3.5 - 5.1 meq/L 08/24/2023 12:39 PM [facility] Chloride 112 102 - 112 meq/L 08/24/2023 12:39 PM [facility] CO2 26 21 - 32 meq/L 08/24/2023 12:39 PM [facility] Calcium 9.0 8.5 - 10.1 mg/dL 08/24/2023 12:39 PM [facility] Glucose 96 74 - 106 mg/dL 08/24/2023 12:39 PM [facility] BUN 13 7 - 22 mg/dL 08/24/2023 12:39 PM [facility] Creatinine 0.94 0.55 - 1.02 mg/dL 08/24/2023 12:39 PM [facility] BUN/Creatinine 14 8 - 20 08/24/2023 12:39 PM [facility] Albumin 3.1(L) 3.4 - 5.0 g/dL 08/24/2023 12:39 PM [facility] Alkaline Phosphatase 46 27 - 136 U/L 08/24/2023 12:39 PM [facility] ALT 17 12 - 78 U/L 08/24/2023 12:39 PM [facility] AST 18 5 - 37 U/L 08/24/2023 12:39 PM [facility] Total Bilirubin 0.5 0.2 - 1.3 mg/dL 08/24/2023 12:39 PM [facility] Protein, Total 6.8 6.4 - 8.2 gm/dL 08/24/2023 12:39 PM [facility] Anion Gap 9 9 - 20 08/24/2023 12:39 PM [facility] A/G Ratio 0.8(L) 1.1 - 2.5 08/24/2023 12:39 PM [facility] Globulin 3.7 1.5 - 4.5 g/dL 08/24/2023 12:39 PM [facility] Osmolality Calc 285.0 12:39 PM EST [facility] eGFR (mL/min/1.73m2) >60 >=60 mL/min/1.7 3m2 08/24/2023 12:39 PM EST [facility] Comment:ESTIMATED GFR IS NOT ACCURATE CREATININE CLEARANCE IN PREDICTING GLOMERULAR FILTRATION RATE. ESTIMATED GFR IS NOT APPLICABLE FOR DIALYSIS PATIENTS. Blood Venipuncture / Unknown 08/24/2023 11:30 AM EST 08/24/2023 11:47 AM EST us Caleb Pacheco MD LAB BLOOD ORDERABLES Final Res ult [facility] [address] [place] [id number], [facility] [phone] * (ABNORMAL) CBC with Automated Diff (08/24/2023 11:30 AM EST) WBC 4.6 4.5 - 12.5 K/??L 08/24/2023 11:47 AM EST [facility] RBC 3.74(L) 4.00 - 5.25 M/??L 08/24/2023 11:47 AM EST [facility] Hemoglobin 12.5 12.0 - 16.0 GM/DL 08/24/2023 11:47 AM EST [facility] Hematocrit 39.3 36.0 - 46.0 % 08/24/2023 11:47 AM EST [facility] MCV 105(H) 80 - 100 fL 08/24/2023 11:47 AM EST [facility] MCH 33.4 26.0 - 34.0 pg 08/24/2023 11:47 AM EST [facility] MCHC 31.8 31.0 - 37.0 GM/DL 08/24/2023 11:47 AM EST [facility] RDW 12.2 12.0 - 16.8 % 08/24/2023 11:47 AM EST [facility] Platelets 162 140 - 440 K/CU MM 08/24/2023 11:47 AM EST [facility] MPV 10.6(H) 7.4 - 10.4 fL 08/24/2023 11:47 AM EST [facility] % Neutros 61 45 - 80 % 08/24/2023 11:47 AM EST [facility] % Lymphs 28 15 - 45 % 08/24/2023 11:47 AM EST [facility] % Monos 9 0 - 10 % 08/24/2023 11:47 AM EST [facility] % Eos 2 0 - 5 % 08/24/2023 11:47 AM EST [facility] % Baso 0 0 - 3 % 08/24/2023 11:47 AM EST [facility] # Neutros 2.81 2.00 - 8.80 K/??L 08/24/2023 11:47 AM EST [facility] # Lymphs 1.29 0.70 - 5.50 K/??L 08/24/2023 11:47 AM EST [facility] # Monos 0.42 0.00 - 1.70 K/??L 08/24/2023 11:47 AM EST [facility] # Eos 0.07 0.00 - 0.80 K/??L 08/24/2023 11:47 AM EST [facility] # Baso 0.01 0.00 - 0.20 K/??L 08/24/2023 11:47 AM EST [facility] Blood Venipuncture / Unknown 08/24/2023 11:30 AM EST 08/24/2023 11:44 AM EST Narrative [facility] - 08/24/2023 11:47 AM EST When CBC w/ Auto Diff [...] ult [facility] [address] [phone] documented in this encounter Visit Diagnoses Diagnosis Multiple myeloma without remission (HCC)- Primary documented in this encounter
--- OUTSIDE RECORDS SUMMARY | 2024-08-03 17:01 | XMS_ITS | Encounter Summary ---
Author Organization [employer] Address [address] [place] [address] Care Team Providers Care Tile Picker Name Role Phone Unavailable Primary Care Provider Unavailabl e Reason for Visit * Reason Onset Date Comments Estimate Xgeva 07/07/2023 No Est. Needed P t has Dual Coverage Encounter Details Date Type Department Care Team (Late st Contact Info) Description 07/07/2023 Telephone [facility] - [facility] [address] [place] [address] [address] [place] [address] Caleb Pacheco MD [address] [facility] [address] [place] [address] Estimate Xgeva (No Est. Needed Pt has Dual Coverage) Social History Tobacco Use Types Packs/Day Years [...] AM EDT documented as of this encounter Miscellaneous Notes * Telephone Encounter - Cristi Frost - 07/07/2023 8:40 AM EDTSummary: Estimate Xgeva No Est. Needed Pt has Dual Coverage documented in this encounter Plan of Treatment Not on file documented as of this encounter Visit Diagnoses Not on filedocumented in this encounter
--- OUTSIDE RECORDS SUMMARY | 2024-08-03 17:01 | XMS_ITS | Encounter Summary ---
Author Organization [employer] Address [address] [place] [address] Care Team Providers Care Beam Builder Name Role Phone Unavailable Primary Care Provider Unavailabl e Encounter Details Date Type Department Care Team (Latest Contact Info) Description 06/29/2023 Travel Social History Tobacco Use Types Packs/Day [...]
--- OUTSIDE RECORDS SUMMARY | 2024-08-03 17:01 | XMS_ITS | Encounter Summary ---
Author Organization [employer] Address [address] [place] [address] Care Team Providers Care Nurse Manager Name Role Phone Unavailable Primary Care Provider Unavailabl e Reason for Visit * Reason Onset Date Comments DME supplies 08/31/2023 Encounter Details Date Type Department Care Team (Late st Contact Info) Description 08/31/2023 Telephone [facility] - [address] [place] [address] Caleb Pacheco MD [address] [facility] [address] [place] [address] DME supplies Social History Tobacco Use Types Packs/Day Years [...] encounter Miscellaneous Notes * Telephone Encounter - Therese Martinez RN - 09/01/2023 1:27 PM EST Re-faxed ATTENDANT * Telephone Encounter - Nicki Thurston RN - 08/31/2023 10:19 AM EST Pt called into Rn line stating that a DME company will be faxing paperwork for her pull ups and also the pads to put on her bed. This will need to be signed by and faxed back. Therese, please watch for fax. Thanks ATTENDANT documented in this encounter Plan of Treatment Not on file documented as of this encounter Visit Diagnoses Not on filedocumented in this encounter
--- OUTSIDE RECORDS SUMMARY | 2024-08-03 17:01 | XMS_ITS | Encounter Summary ---
Author Organization [employer] Address [address] [place] [address] Care Team Providers Care Media Clerk Name Role Phone Clifford Newell Primary Care Provider + [phone] Reason for Referral * Mammography (Routine) - Closed Specialty Diagnoses / Procedures Referred By Ana Paula anne Referred To Contact Diagnoses Encounter for screening mammogram for malignant neoplasm of breast Procedures MM digital mammo screen bilateral Clifford Newell PA [address] [place] [address] Phone: tel: fax: Referral ID Status Reason Start Date Expiration Date Visits Re quested Visits Authorized [id number] Closed 10/11/2023 04/08/2024 1 1 Encounter Details Date Type Department Care Team (Late st Contact Info) Description 10/11/[address] [facility] Central Scheduling [address] [place] [address] Clifford Newell PA [address] [place] [address] Encounter for screening mammogram for malignant neoplasm of breast (Primary Dx) Social History Tobacco Use Types [...] Date Kulwant rded Speak language other than Singaporean at home Not on file 10/05/2023 Want [...] documented as of this encounter Results * MM digital mammo [...] the next mammogram. At our facility, a [place] marker is positioned over a visible skin [...] cancer. COMPARISON STUDY: ??2021, 2020, 2018 from [facility] FINDINGS: Craniocaudal and mediolateral oblique images of both breasts were obtained. The breast tissue is almost entirely fatty. There is no evidence of dominant mass, architectural distortion, or suspicious calcifications. The mammogram was interpreted with the benefit of computer aided detection (CAD). Clifford HUNT IM MAMMOGRAPHY ORDERABLES F inal Result documented in this encounter Visit Diagnoses Diagnosis Encounter for screening mammogram for malignant neoplasm of breast- Primary Encounter for screening mammogram for malignant neoplasm of breast documented in this encounter Care Teams Media Clerk Relationship Specialty Start Date End Date Clifford Newell PA [address] [place] [address] JERAD Ling [phone] PCP - General Physician Reading Recovery Teacher 10/14/23 documented as of this encounter
--- OUTSIDE RECORDS SUMMARY | 2024-08-03 17:01 | XMS_ITS | Encounter Summary ---
Author Organization [employer] Address [address] [place] [address] Care Team Providers Care Asparagus Buncher Name Role Phone Unavailable Primary Care Provider Unavailabl e Encounter Details Date Type Department Care Team (Latest Contact Info) Description 09/21/2023 Travel Social History Tobacco Use Types Packs/Day [...]
--- OUTSIDE RECORDS SUMMARY | 2024-08-03 17:01 | XMS_ITS | Encounter Summary ---
Author Organization [employer] Address [address] [place] [address] Care Team Providers Care Inpatient Services Director Name Role Phone Unavailable Primary Care Provider Unavailabl e Reason for Visit * Reason Comments Follow-up F/u appt with labs a nd infusion Multiple myeloma without remission (HCC) Encounter Details Date Type Department Care Team (Late st Contact Info) Description 09/21/2023 11:30 AM EST Office Visit [facility] - [address] [place] [address] Raimundo Pacheco MD [address] [facility] [address] [place] [address] Multiple myeloma without remission (HCC) [...] Sign Reading Time Taken Comments Blood Pressure 166/92 09/21/2023 12:05 PM EST Pulse 83 09/21/2023 12:05 PM EST Temperature 36.8 ??C (98.2 ??F) 09/21/2023 1 2:05 PM EST Respiratory Rate 18 09/21/2023 12:0 5 PM EST Oxygen Saturation 98% 09/21/2023 12: 05 PM EST Inhaled Oxygen Concentration - - Weight 122.4 kg (269 lb 12.8 oz) 2023 12:05 PM EST Height 172.7 cm (5' 7.99 ) 09/21/2023 1 2:05 PM EST Body Mass Index 41.03 09/21/2023 12:05 PM EST documented in this encounter Progress Notes * Raimundo Pacheco MD - 09/21/2023 11:30 AM EST Chief Complaint: History of Present Illness: Francy Bailey is a 63 y.o. female who presents today for follow up of multiple myeloma. She is on Darzalex single agent. She has some generalized bone discomfort. She is not any weight loss. She has had no fatigue. She has had no skin rash. And denies other new complaints Past Medical History: Diagnosis Date ??? Asthma [...] Treatment Summary Treatment goal Palliative Plan Name [facility] Multiple Myeloma - daratumumab (Darzalex) IV d1,8,15,22 fb D1,15 fb d1 + pomalidomide(Pomalyst) PO d1-21 every 28 days Status Active Start Date 11/03/2022 End Date 10/19/2023 (Planned) Provider Raimundo Pacheco MD Chemotherapy pomalidomide 4 mg Cap, 4 mg, Oral, Daily, 1 of 1 cycle, Start date: --, End date: -- ffhmpxbbfwo-mkfamyganinbh-lwwf (DARZALEX FASPRO) 1,800 mg-30,000 unit/15 mL subcutaneous injection 1,800 mg, 1,800 mg, Subcutaneous, Once, 11 of 12 cycles Administration: 1,800 mg (11/03/2022), [...] 2 (two) times daily. 10 tablet 0 ??? Tab-A-Avery 400 mcg Tab Take 1 tablet by mouth in the morning. ??? Xarelto 20 mg tablet SMARTSI Tablet(s) By Mouth Every Evening No current facility-administered medications on file prior to visit. Review of Systems: Review of Systems All other systems reviewed and are negative. Vitals: Vitals: 09/21/23 1205 BP: (!) 166/92 Pulse: 83 Resp: 18 Temp: 98.2 ??F (36.8 ??C) SpO2: 98% Weight: 122.4 kg (269 lb 12.8 oz) Height: 1.727 m (5' 7.99 ) [...] Comments: Subjective discomfort in the lower back Neurological: General: No focal deficit present. Mental Status: She is alert. Relevant Results: Lab Patient Walk-In on 09/21/2023 Component Date Value Ref Range Status ??? WBC 09/21/2023 4.2 (L) 4.5 - 12.5 K/??L Final ??? RBC 09/21/2023 3.89 (L) 4.00 - 5.25 M/??L Final ??? Hemoglobin 09/21/2023 13.0 12.0 - 16.0 GM/DL Final ??? Hematocrit 09/21/2023 40.4 36.0 - 46.0 % Final ??? MCV 09/21/2023 104 (H) 80 - 100 fL Final ??? MCH 09/21/2023 33.4 26.0 - 34.0 pg Final ??? MCHC 09/21/2023 32.2 31.0 - 37.0 GM/DL Final ??? RDW 09/21/2023 12.2 12.0 - 16.8 % Final ??? Platelets 09/21/2023 176 140 - 440 K/CU MM Final ??? MPV 09/21/2023 9.9 7.4 - 10.4 fL Final ??? % Neutros 09/21/2023 42 (L) 45 - 80 % Final ??? % Lymphs 09/21/2023 45 15 - 45 % Final ??? % Monos 09/21/2023 11 (H) 0 - 10 % Final ??? % Eos 09/21/2023 2 0 - 5 % Final ??? % Baso 09/21/2023 0 0 - 3 % Final ??? # Neutros 09/21/2023 1.77 (L) 2.00 - 8.80 K/??L Final ??? # Lymphs 09/21/2023 1.90 0.70 - 5.50 K/??L Final ??? # Monos 09/21/2023 0.45 0.00 - 1.70 K/??L Final ??? # Eos 09/21/2023 0.07 0.00 - 0.80 K/??L Final ??? # Baso 09/21/2023 0.01 0.00 - 0.20 K/??L Final ??? Sodium 09/21/2023 143 136 - 146 meq/L Final ??? Potassium 09/21/2023 3.6 3.5 - 5.1 meq/L Final ??? Chloride 09/21/2023 107 98 - 108 meq/L Final ??? CO2 09/21/2023 18 (L) 22 - 29 meq/L Final ??? Anion Gap 09/21/2023 22 (H) 9 - 20 Final ??? BUN 09/21/2023 10 7 - 18 mg/dL Final ??? Creatinine 09/21/2023 1.00 0.60 - 1.10 mg/dL Final ??? BUN/Creatinine 09/21/2023 10 8 - 20 Final ??? Glucose 09/21/2023 82 70 - 105 mg/dL Final ??? Calcium Ionized (mg/dL) 09/21/2023 4.81 4.36 - 5.20 mg/dL Final ??? Sodium 09/21/2023 143 136 - 146 meq/L Final ??? Potassium 09/21/2023 3.4 (L) 3.5 - 5.1 meq/L Final ??? Chloride 09/21/2023 112 102 - 112 meq/L Final ??? CO2 09/21/2023 23 21 - 32 meq/L Final ??? Calcium 09/21/2023 9.1 8.5 - 10.1 mg/dL Final ??? Glucose 09/21/2023 102 74 - 106 mg/dL Final ??? BUN 09/21/2023 10 7 - 22 mg/dL Final ??? Creatinine 09/21/2023 1.09 (H) 0.55 - 1.02 mg/dL Final ??? BUN/Creatinine 09/21/2023 9 8 - 20 Final ??? Albumin 09/21/2023 3.2 (L) 3.4 - 5.0 g/dL Final ??? Alkaline Phosphatase 09/21/2023 54 27 - 136 U/L Final ??? ALT 09/21/2023 16 12 - 78 U/L Final ??? AST 09/21/2023 19 5 - 37 U/L Final ??? Total Bilirubin 09/21/2023 0.5 0.2 - 1.3 mg/dL Final ??? Protein, Total 09/21/2023 7.3 6.4 - 8.2 gm/dL Final ??? Anion Gap 09/21/2023 11 9 - 20 Final ??? A/G Ratio 09/21/2023 0.8 (L) 1.1 - 2.5 Final ??? Globulin 09/21/2023 4.1 1.5 - 4.5 g/dL Final ??? Osmolality Calc 09/21/2023 284.2 Final ? ? eGFR (mL/min/1.73m2) 09/21/2023 57 (L) >=60 mL/min/1.73m2 Final ESTIMATED GFR IS NOT ACCURATE CREATININE CLEARANCE IN PREDICTING GLOMERULAR FILTRATION RATE. ESTIMATED GFR IS NOT APPLICABLE FOR DIALYSIS PATIENTS. No results found. Cancer Staging No matching staging information was found for the patient. Plan: Her blood counts are acceptable. Her M spike is risen slowly over time but she has had no other accompanying complications thus far. She will get Darzalex 1800 mg today premedicated with dexamethasone 20 and Zofran 8 orally. She return in 4 weeks for the same. We will attempt to let her know what today's M spike was. I will not change therapy unless she has significant change in her M spike or a change in her accompanying test such as her creatinine hemoglobin or calcium. Signed: Electronically signed by RAIMUNDO PACHECO MD 09/21/23 5:40 PM EST No primary care provider on file. LE SOLUTIONS ARCHITECT documented in this encounter Plan of Treatment Not on file documented as of this encounter Results * (ABNORMAL) Protein Electrophoresis w Rflx to RALPH(SENDOUT) (10/19/2023 11:08 AM EST) Total Protein, Serum 6.4 6.3 - 8.2 g/dL 10/22/2023 9:36 AM EST [facility] Albumin 3.37(L) 3.75 - 5.01 g/dL 10/22/2023 9:36 AM EST [facility] Alpha 1 Globulin 0.27 0.19 - 0.46 g/dL 10/22/2023 9:36 AM EST [facility] Alpha 2 Globulin 0.78 0.48 - 1.05 g/dL 10/22/2023 9:36 AM EST [facility] Beta Globulin 1.74(H) 0.48 - 1.10 g/dL 10/22/2023 9:36 AM EST [facility] Gamma 0.24(L) 0.62 - 1.51 g/dL 10/22/2023 9:36 AM EST [facility] Immunofixation Reflex RALPH Done 10/22/2023 9:36 AM EST [facility] Monoclonal Protein 1.40 g/dL 2023 9:36 AM EST [facility] [place] SPEP/RALPH Interpretation See Note 10/22/2023 9:36 AM EST [facility] [place] Comment: Monoclonal spike in the beta region. The quantitation may include complement and/or transferrin components. Measurement of total Immunoglobulin (IgA, IgG, or IgM) can be used for the quantitation of the monoclonal spike instead. Hypogammaglobulinemia. RALPH gel pattern shows an IgA type lambda monoclonal protein with an additional faint band in IgG kappa. EER Serum Protein Electrophoresis Reflex See Note 10/22/2023 9:36 AM [facility] [place] Comment: Authorized individuals can access the [facility] Enhanced Report using the following link: [email or web address] Performed By: [facility] [address] [place] [address] [place] Operator: Parker Rangel MD, PhD CLIA Number: [id number] Blood Venipuncture / Unknown 10/19/2023 11:08 AM EST 10/19/2023 11:21 AM EST us Raimundo Pacheco MD LAB BLOOD ORDERABLES Final Res ult [facility] [address] [place] [address], [facility] [phone] * (ABNORMAL) [place]-Lambda Quant FLC with Ratio(SENDOUT) (10/19/2023 11:08 AM EST) [place] Qnt Free Light Chains 5.00 3.30 - 19.40 mg/L 10/21/2023 12:22 AM EST [facility] Comment: INTERPRETIVE INFORMATION: [place] Qnt Free Light Chains Undetected antigen excess is a rare event but cannot be excluded. Free light chain results should always be interpreted in conjunction with other clinical and laboratory findings. [place] Qnt Free Light Chains 20.58 5.71 - 26.30 mg/L 10/21/2023 12:22 AM EST [facility] Comment: INTERPRETIVE INFORMATION: Lambda Qnt Free Light Chains Undetected antigen excess is a rare event but cannot be excluded. Free light chain results should always be interpreted in conjunction with other clinical and laboratory findings. [place]/Lambda Free Light Chain Ratio 0.24(L) 0.26 - 1.65 10/21/2023 12:22 AM EST [facility] Comment: Performed By: [facility] [address] [place] [address] [place] Operator: Parker Rangel MD, PhD CLIA Number: [id number] Blood Venipuncture / Unknown 10/19/2023 11:08 AM EST 10/19/2023 11:21 AM EST us Raimundo Pacheco MD LAB BLOOD ORDERABLES Final Res ult [facility] [address] [place] [address], [facility] [phone] * (ABNORMAL) Oncology Chemistry Panel (10/19/2023 11:08 [...] AM EST 10/19/2023 11:21 AM EST us Raimundo Pacheco MD LAB BLOOD ORDERABLES Final Res ult [facility] [address] [place] [address], [facility] [phone] * (ABNORMAL) CBC with automated diff (10/19/2023 [...] ult [facility] [address] [phone] documented in this encounter Visit Diagnoses Diagnosis Multiple myeloma without remission (HCC) documented in this encounter
--- OUTSIDE RECORDS SUMMARY | 2024-08-03 17:01 | XMS_ITS | Encounter Summary ---
Author Organization [employer] Address [address] [place] [address] Care Team Providers Care Peanut Sorter Name Role Phone Unavailable Primary Care Provider Unavailabl e Reason for Visit * Reason Onset Date Comments Medication Refill 08/31/2023 Encounter Details Date Type Department Care Team (Late st Contact Info) Description 08/31/2023 Refill [facility] [address] [facility] [address] [place] [address] Caleb Pacheco MD [address] [facility] [address] [place] [address] Social History Tobacco Use Types [...] Encounter - Nicki Thurston RN - 08/31/2023 10:20 AM EST Pt called into RN line requesting refills on Benzonatate 100 mg TID PRN cough #30 (last sent by SP on 05/18/23). Pt stated that she has a horrible cough and SP said he would refill this medication Dr Pacheco script is pended for your approval. Thanks. ER MEAT documented in this encounter Plan of Treatment Not on file documented as of this encounter Visit Diagnoses Not on filedocumented in this encounter
--- OUTSIDE RECORDS SUMMARY | 2024-08-03 17:01 | XMS_ITS | Encounter Summary ---
Author Organization [employer] Address [address] [place] [address] Care Team Providers Care Fuel Buyer Name Role Phone Unavailable Primary Care Provider Unavailabl e Encounter Details Date Type Department Care Team (Late st Contact Info) Description 10/12/2023 Orders Only [facility] - [facility] [address] [place] [address] Caleb Pacheco MD [address] [facility] [address] [place] [address] Multiple myeloma without remission (HCC) [...] Date Kulwant rded Speak language other than Sammarinese at home Not on file 10/05/2023 Want [...]
--- OUTSIDE RECORDS SUMMARY | 2024-08-03 17:01 | XMS_ITS | Encounter Summary ---
Author Organization [employer] Address [address] [place] [address] Care Team Providers Care Director Patient Name Role Phone Unavailable Primary Care Provider Unavailabl e Encounter Details Date Type Department Care Team (Late st Contact Info) Description 07/29/2023 Orders Only [facility] - [facility] [address] [place] [address] Caleb Pacheco MD [address] [facility] [address] [place] [address] Social History Tobacco Use Types [...]
--- OUTSIDE RECORDS SUMMARY | 2024-08-03 17:01 | XMS_ITS | Encounter Summary ---
Author Organization [employer] Address [address] [place] [address] Care Team Providers Care Weapons System Instrument Mechanic Name Role Phone Unavailable Primary Care Provider Unavailabl e Encounter Details Date Type Department Care Team (Late st Contact Info) Description 07/29/2023 Orders Only [facility] - [facility] [address] [place] [address] Caleb Pacheco MD [address] [facility] [address] [place] [address] Social History Tobacco Use Types [...]
--- OUTSIDE RECORDS SUMMARY | 2024-08-03 17:01 | XMS_ITS | Encounter Summary ---
Author Organization [employer] Address [address] [place] [address] Care Team Providers Care Cost Estimating Engineer Name Role Phone Unavailable Primary Care Provider Unavailabl e Encounter Details Date Type Department Care Team (Latest Contact Info) Description 07/27/2023 Travel Social History Tobacco Use Types Packs/Day [...]
--- OUTSIDE RECORDS SUMMARY | 2024-08-03 17:01 | XMS_ITS | Encounter Summary ---
Author Organization [email or web address] Address [address] [place] [address] Care Team Providers Care Insurance Salesman Name Role Phone Unavailable Primary Care Provider Unavailabl e Reason for Visit * Reason Comments Injections * Episode Based Medication (Routine) - Authorized Specialty Diagnoses / Procedures Referred By Ana Paula anne Referred To Contact Diagnoses Multiple myeloma without remission (HCC) Procedures DENOSUMAB INJECTION Xgeva/ [id number] Caleb Pacheco MD [address] [place] [address] Phone: tel: fax: [facility] [address] [place] [address] Phone: tel: fax: Referral ID Status Reason Start Date Expiration Date V isits Requested Visits Authorized [id number] Authorized 06/29/2023 05/15/2025 1 198 Encounter Details Date Type Department Care Team (Late st Contact Info) Description 09/21/2023 12:15 PM EST Infusion [facility] - [facility] [address] [place] [address] Caleb Pacheco MD [address] [place] [address] Multiple myeloma without remission (HCC) [...] Sign Reading Time Taken Comments Blood Pressure 143/62 09/21/2023 1:53 PM EST rec hecked at request of pt Pulse - - Temperature - - Respiratory Rate - - Oxygen Saturation - - Inhaled Oxygen Concentration - - Weight - - Height - - Body Mass Index - - documented in this encounter Progress Notes * Adelaida Leal RN - 09/21/2023 12:15 PM EST Pt tolerated injections well to abdomen. Discharged in stable condition, aware of next appts GER TRANSIT documented in this encounter Plan of Treatment Not on file documented as of this encounter Visit Diagnoses Diagnosis Multiple myeloma without remission (HCC)- Primary documented in this encounter Administered Medications Inactive Administered Medications - up to 3 most recent administrations Medication Order MAR Action Action Date Dose Rate Site acetaminophen (TYLENOL) tablet 650 mg 650 mg Once, oral, On Wed09/21/23 at 1330, For 1 dose, Recommended maximum dose of acetaminophen is 4000 mg from all sources in 24 hoursIndications:Multip le myeloma without remission (HCC) Given 09/21/2023 1:16 PM EST 650 mg daratumumab-hyaluronida se-fij (DARZALEX FASPRO) 1,800 mg-30,000 unit/15 mL subcutaneous injection 1,800 mg 1,800 mg Once, subcutaneous, at 300 mL/hr, On Wed09/21/23 at 1330, For 1 dose, FLAT DOSING Administer into the subcutaneous tissue of the abdomen about 3 inches to the right or left of the navel over 3-5 minutes. Rotate injection sites for successive injections.Indications: Multiple myeloma without remission (HCC) Given 09/21/2023 1:36 PM EST 1,800 mg 300 mL/hr Abdominal Tissue denosumab (XGEVA) subcutaneous injection 120 mg 120 mg Once, subcutaneous, On Wed09/21/23 at 1330, For 1 dose, * Refrigerated * Bring to room temperature 15 to 30 minutes prior to administration., This medication is restricted to use in outpatients only. Is this patient in outpatient status? YesIndications:Multiple myeloma without remission (HCC) Given 09/21/2023 1:37 PM EST 120 mg Abdominal Tissue diphenhydrAMINE (BENADRYL) capsule 25 mg 25 mg Once, oral, On Wed09/21/23 at 1330, For 1 doseIndications:Multipl e myeloma without remission (HCC) Given 09/21/2023 1:16 PM EST 25 mg documented in this encounter
--- OUTSIDE RECORDS SUMMARY | 2024-08-03 17:01 | XMS_ITS | Encounter Summary ---
Author Organization [employer] Address [address] [place] [address] Care Team Providers Care Assistant City Attorney Name Role Phone Unavailable Primary Care Provider Unavailabl e Reason for Visit * Auth/Cert (Routine) Specialty Diagnoses / Procedures Referred By Ana Paula anne Referred To Contact [place] [facility] [address] [place] [address] Phone: tel: fax: Referral ID Status Reason Start Date Expiration Date Visits Re quested Visits Authorized [id number] 1 1 Encounter Details Date Type Department Care Team (Latest Contact Info) Description 08/24/2023 11:15 AM EST Lab Patient Walk-In [place] [facility] - [place] [id number] Francisco LEERAUL [facility] [address] [place] [address] Caleb Pacheco MD [address] [place] [address] Multiple myeloma without remission (HCC) [...] Recorded In the last 10 days, have evangelina u been in contact with someone who was confirmed or suspected to have Coronavirus/COVID-19? No / Unsure 07/27/2023 10:23 AM EST documented as of this encounter Plan of Treatment Not on file documented as of this encounter Procedures Procedure Name Priority Date/Time Associated Diagnosis Comments IMMUNOFIX ELECTROPHORESIS BILL(SENDOUT) Routine 08/24/2023 11:30 AM EST Multiple myeloma without remission (HCC) CBC W/ AUTO DIFF STAT 08/24/2023 11:3 0 AM EST Multiple myeloma without remission (HCC) ONOCOLOGY CHEMISTRY PANEL Routine 08/24/2023 11:30 AM EST Multiple myeloma without remission (HCC) PROTEIN ELECTROPHORESIS W RFLX TO RALPH(SENDOUT) Routine 08/24/2023 11:30 AM EST Multiple myeloma without remission (HCC) KAPPA-LAMBDA QUANT FLC WITH RATIO(SENDOUT) Routine 08/24/2023 11:30 AM EST Multiple myeloma without remission (HCC) IMMUNOGLOBULIN M(SENDOUT) Routine 08/24/2023 11:30 AM EST Multiple myeloma without remission (HCC) IMMUNOGLOBULIN G(SENDOUT) Routine 08/24/2023 11:30 AM EST Multiple myeloma without remission (HCC) IMMUNOGLOBULIN A(SENDOUT) Routine 08/24/2023 11:30 AM EST Multiple myeloma without remission (HCC) COMPREHENSIVE METABOLIC PANEL STAT 08/24/2023 11:30 AM EST Multiple myeloma without remission (HCC) documented in this encounter Results * Immunofix Electrophoresis Bill(SENDOUT) (08/24/2023 11:30 AM EST) Immunofix Electrophoresis Bill Billed 08/27/2023 7:56 PM EST [employer] Comment: Performed By: [facility] [address] [place] [address] Hand Gluer And Slicer: Parker Rangel MD, PhD CLIA Number: [id number] Blood Venipuncture / Unknown 08/24/2023 11:30 AM EST 08/24/2023 11:47 AM EST Caleb Pacheco MD LAB BLOOD ORDERABLES Final Res ult Performing Organization Address [facility] de Phone Number [facility] [address] [place] [address] * (ABNORMAL) Immunoglobulin A(SENDOUT) (08/24/2023 11:30 AM EST) Immunoglobulin A 877(H) 68 - 408 mg/dL 08/27/2023 7:42 PM EST [facility] Comment: Performed By: [facility] [address] [place] [address] Hand Gluer And Slicer: Parker Rangel MD, PhD CLIA Number: [id number] Blood Venipuncture / Unknown 08/24/2023 11:30 AM EST 08/24/2023 11:47 AM EST Caleb Pacheco MD LAB BLOOD ORDERABLES Final Res ult Performing Organization Address [facility] de Phone Number [facility] [address] [place] [address] * (ABNORMAL) Immunoglobulin M(SENDOUT) (08/24/2023 11:30 AM EST) Immunoglobulin M 11(L) 35 - 263 mg/dL 08/27/2023 7:42 PM EST [facility] Comment: Performed By: [facility] [address] [place] [address] Hand Gluer And Slicer: Parker Rangel MD, PhD CLIA Number: [id number] Blood Venipuncture / Unknown 08/24/2023 11:30 AM EST 08/24/2023 11:47 AM EST Caleb Pacheco MD LAB BLOOD ORDERABLES Final Res ult Performing Organization Address City/[facility] Co de Phone Number [employer] [address] [phone] * (ABNORMAL) Immunoglobulin G(SENDOUT) (08/24/2023 11:30 AM EST) Immunoglobulin G 249(L) 768 - 1632 mg/dL 08/27/2023 7:42 PM EST [facility] [employer] Comment: Performed By: [facility] [address] [place] [address] Hand Gluer And Slicer: Parker Rangel MD, PhD CLIA Number: [id number] Blood Venipuncture / Unknown 08/24/2023 11:30 AM EST 08/24/2023 11:47 AM EST Caleb Pacheco MD LAB BLOOD ORDERABLES Final Res ult Performing Organization Address [facility]/State/ZIP Co de Phone Number [employer] [address] [place] [address] * (ABNORMAL) Comprehensive metabolic panel (08/24/2023 11:30 AM EST) Pathologist [facility] Sodium 143 136 - 146 meq/L 08/24/2023 12:39 PM [facility] Potassium 3.6 3.5 - 5.1 meq/L 08/24/2023 12:39 PM [facility] Chloride 112 102 - 112 meq/L 08/24/2023 12:39 PM [facility] CO2 26 21 - 32 meq/L 08/24/2023 12:39 PM [facility] Calcium 9.0 8.5 - 10.1 mg/dL 08/24/2023 12:39 PM [facility] Glucose 96 74 - 106 mg/dL 08/24/2023 12:39 PM [facility] BUN 13 7 - 22 mg/dL 08/24/2023 12:39 PM [facility] Creatinine 0.94 0.55 - 1.02 mg/dL 08/24/2023 12:39 PM [facility] BUN/Creatinine 14 8 - 20 08/24/2023 12:39 PM [facility] Albumin 3.1(L) 3.4 - 5.0 g/dL 08/24/2023 12:39 PM [facility] Alkaline Phosphatase 46 27 - 136 U/L 08/24/2023 12:39 PM [facility] ALT 17 12 - 78 U/L 08/24/2023 12:39 PM [facility] AST 18 5 - 37 U/L 08/24/2023 12:39 PM [facility] Total Bilirubin 0.5 0.2 - 1.3 mg/dL 08/24/2023 12:39 PM [facility] Protein, Total 6.8 6.4 - 8.2 gm/dL 08/24/2023 12:39 PM [facility] Anion Gap 9 9 - 20 08/24/2023 12:39 PM [facility] A/G Ratio 0.8(L) 1.1 - 2.5 08/24/2023 12:39 PM [facility] Globulin 3.7 1.5 - 4.5 g/dL 08/24/2023 12:39 PM [facility] Osmolality Calc 285.0 12:39 PM [facility] eGFR (mL/min/1.73m2) >60 >=60 mL/min/1.7 3m2 08/24/2023 12:39 PM [facility] Comment:ESTIMATED GFR IS NOT ACCURATE CREATININE CLEARANCE IN PREDICTING GLOMERULAR FILTRATION RATE. ESTIMATED GFR IS NOT APPLICABLE FOR DIALYSIS PATIENTS. Blood Venipuncture / Unknown 08/24/2023 11:30 AM EST 08/24/2023 11:47 AM EST us Caleb Pacheco MD LAB BLOOD ORDERABLES Final Res ult [facility] [address] [place] [address], [facility] [phone] * (ABNORMAL) CBC with Automated Diff (08/24/2023 [...] ult [facility] [address] [phone] * (ABNORMAL) Protein Electrophoresis w Rflx to [...] Protein 1.23 g/dL 2022 7:55 PM EST [facility] SPEP/RALPH Interpretation See Note 08/27/2023 7:55 PM EST [facility] [employer] Comment: Monoclonal spike in the beta region. [...] Reflex See Note 08/27/2023 7:55 PM EST [employer] Comment: Authorized individuals can access the [facility] Enhanced Report using the following link: [email or web address] Performed By: [facility] [address] [place] [address] Hand Gluer And Slicer: Parker Rangel MD, PhD CLIA Number: [id number] Blood Venipuncture / Unknown 08/24/2023 11:30 AM EST 08/24/2023 11:47 AM EST us Caleb Pacheco MD LAB BLOOD ORDERABLES Final Res ult [facility] [address] [place] [address], [facility] [phone] * [place]-Lambda Quant FLC with Ratio(SENDOUT) (08/24/2023 11:30 AM EST) [place] Qnt Free Light Chains 4.98 3.30 - 19.40 mg/L 08/26/2023 12:43 AM EST [employer] Comment: INTERPRETIVE INFORMATION: [place] Qnt Free Light Chains Undetected antigen excess is a rare event but cannot be excluded. Free light chain results should always be interpreted in conjunction with other clinical and laboratory findings. Lambda Qnt Free Light Chains 18.38 5.71 - 26.30 mg/L 08/26/2023 12:43 AM EST [employer] Comment: INTERPRETIVE INFORMATION: Lambda Qnt Free Light Chains Undetected antigen excess is a rare event but cannot be excluded. Free light chain results should always be interpreted in conjunction with other clinical and laboratory findings. [place]/Lambda Free Light Chain Ratio 0.27 0.26 - 1.65 08/26/2023 12:43 AM EST [employer] Comment: Performed By: [facility] [address] [place] [address] Hand Gluer And Slicer: Parker Rangel MD, PhD CLIA Number: [id number] Blood Venipuncture / Unknown 08/24/2023 11:30 AM EST 08/24/2023 11:47 AM EST us Caleb Pacheco MD LAB BLOOD ORDERABLES Final Res ult [employer] [address] [place] [address], [facility] [phone] * (ABNORMAL) Oncology Chemistry Panel (08/24/2023 11:30 [...] AM EST 08/24/2023 11:44 AM EST us Caleb Pacheco MD LAB BLOOD ORDERABLES Final Res ult [facility] [address] [place] [address], [facility] [phone] documented in this encounter Visit Diagnoses Diagnosis Multiple myeloma without remission (HCC) documented in this encounter
[2024-08-03 17:02] LABS: Microscopic, Urine URINE MICROSCOPIC (MICROSCOPIC)
--- OUTSIDE RECORDS SUMMARY | 2024-08-03 17:02 | XMS_ITS | Encounter Summary ---
Author Organization [employer] Address [address] [place] [address] Care Team Providers Care Ranch Hand Supervisor Name Role Phone Unavailable Primary Care Provider Unavailabl e Encounter Details Date Type Department Care Team (Latest Contact Info) Description 04/06/2023 8:45 AM EDT Lab Patient Walk-In [place] [facility] - [address] [place] [address] Caleb Pacheco MD [address] [facility] [address] [place] [address] Multiple myeloma without remission (HCC) [...] Diagnosis Comments CBC W/ AUTO DIFF STAT 04/06/2023 10:0 2 AM EDT Multiple myeloma without remission (HCC) COMPREHENSIVE METABOLIC PANEL STAT 04/06/2023 10:02 AM EDT Multiple myeloma without remission (HCC) documented in this encounter Results * (ABNORMAL) Comprehensive metabolic panel (04/06/2023 10:02 AM EDT) Sodium 145 136 - 146 meq/L 04/06/2023 11:13 AM EDT [facility] Potassium 3.7 3.5 - 5.1 meq/L 04/06/2023 11:13 AM EDT [facility] Chloride 112 102 - 112 meq/L 04/06/2023 11:13 AM EDT [facility] CO2 26 21 - 32 meq/L 04/06/2023 11:13 AM EDT [facility] Calcium 8.9 8.5 - 10.1 mg/dL 04/06/2023 11:13 AM EDT [facility] Glucose 98 74 - 106 mg/dL 04/06/2023 11:13 AM EDT [facility] BUN 15 7 - 22 mg/dL 04/06/2023 11:13 AM EDT [facility] Creatinine 1.00 0.55 - 1.02 mg/dL 04/06/2023 11:13 AM EDT [facility] BUN/Creatinine 15 8 - 20 04/06/2023 11:13 AM T [facility] Albumin 3.0(L) 3.4 - 5.0 g/dL 04/06/2023 11:13 AM EDT [facility] Alkaline Phosphatase 49 27 - 136 U/L 04/06/2023 11:13 AM EDT [facility] ALT 17 12 - 78 U/L 04/06/2023 11:13 AM EDT [facility] AST 15 5 - 37 U/L 04/06/2023 11:13 AM EDT [facility] Total Bilirubin 0.3 0.2 - 1.3 mg/dL 04/06/2023 11:13 AM EDT [facility] Protein, Total 6.3(L) 6.4 - 8.2 gm/dL 04/06/2023 11:13 AM EDT [facility] Anion Gap 11 9 - 20 04/06/2023 11:13 AM EDT [facility] A/G Ratio 0.9(L) 1.1 - 2.5 04/06/2023 11:13 AM EDT [facility] Globulin 3.3 1.5 - 4.5 g/dL 04/06/2023 11:13 AM EDT [facility] Osmolality Calc 289.5 11:13 AM EDT [facility] eGFR (mL/min/1.73m2) >60 >=60 mL/min/1.7 3m2 04/06/2023 11:13 AM EDT [facility] Comment:ESTIMATED GFR IS NOT ACCURATE CREATININE CLEARANCE IN PREDICTING GLOMERULAR FILTRATION RATE. ESTIMATED GFR IS NOT APPLICABLE FOR DIALYSIS PATIENTS. Blood ENTIRE LEFT UPPER ARM / Unknown Venipuncture / Unknown 04/06/2023 10:02 AM EDT 04/06/2023 10:09 AM EDT us Caleb Pacheco MD LAB BLOOD ORDERABLES Final Res ult [facility] [address] [place] [address] * (ABNORMAL) CBC with Automated Diff (04/06/2023 10:02 AM EDT) WBC 2.8(L) 4.5 - 12.5 K/??L 04/06/2023 10:16 AM EDT [facility] RBC 3.47(L) 4.00 - 5.25 M/??L 04/06/2023 10:16 AM EDT [facility] Hemoglobin 11.8(L) 12.0 - 16.0 GM/DL 04/06/2023 10:16 AM EDT [facility] Hematocrit 37.0 36.0 - 46.0 % 04/06/2023 10:16 AM EDT [facility] MCV 107(H) 80 - 100 fL 04/06/2023 10:16 AM EDT [facility] MCH 34.0 26.0 - 34.0 pg 04/06/2023 10:16 AM EDT [facility] MCHC 31.9 31.0 - 37.0 GM/DL 04/06/2023 10:16 AM EDT [facility] RDW 13.3 12.0 - 16.8 % 04/06/2023 10:16 AM EDT [facility] Platelets 165 140 - 440 K/CU MM 04/06/2023 10:16 AM EDT [facility] MPV 9.7 7.4 - 10.4 fL 04/06/2023 10:16 AM EDT [facility] % Neutros 38(L) 45 - 80 % 04/06/2023 10:16 AM EDT [facility] % Lymphs 47(H) 15 - 45 % 04/06/2023 10:16 AM EDT [facility] % Monos 10 0 - 10 % 04/06/2023 10:16 AM EDT [facility] % Eos 3 0 - 5 % 04/06/2023 10:16 AM EDT [facility] % Baso 3 0 - 3 % 04/06/2023 10:16 AM EDT [facility] # Neutros 1.05(L) 2.00 - 8.80 K/??L 04/06/2023 10:16 AM EDT [facility] # Lymphs 1.30 0.70 - 5.50 K/??L 04/06/2023 10:16 AM EDT [facility] # Monos 0.27 0.00 - 1.70 K/??L 04/06/2023 10:16 AM EDT [facility] # Eos 0.07 0.00 - 0.80 K/??L 04/06/2023 10:16 AM EDT [facility] # Baso 0.08 0.00 - 0.20 K/??L 04/06/2023 10:16 AM EDT [facility] Blood ENTIRE LEFT UPPER ARM / Unknown Venipuncture / Unknown 04/06/2023 10:02 AM EDT 04/06/2023 10:09 AM EDT Narrative [facility] - 04/06/2023 10:16 AM EDT When CBC w/ Auto Diff [...] Final Res ult [facility] [address] [place] [address], [facility] [phone] documented in this encounter Visit Diagnoses Diagnosis Multiple myeloma without remission (HCC) documented in this encounter
--- OUTSIDE RECORDS SUMMARY | 2024-08-03 17:02 | XMS_ITS | Encounter Summary ---
Author Organization [employer] Address [address] [place] [address] Care Team Providers Care Technical Writing Lead/Mgr Name Role Phone Unavailable Primary Care Provider Unavailabl e Reason for Visit * Episode Based Medication (Routine) - Closed Specialty Diagnoses / Procedures Referred By Ana Paula anne Referred To Contact Diagnoses Multiple myeloma without remission (HCC) Procedures DENOSUMAB INJECTION Xgeva/ [id number] Caleb Pacheco MD [address] [facility] [address] [place] [address] Phone: tel: fax: [facility] [place] [address] [place] [address] Phone: tel: fax: Referral ID Status Reason Start Date Expiration Date Visits Re quested Visits Authorized [id number] Closed 06/16/2022 05/14/2024 99 100 Encounter Details Date Type Department Care Team (Latest Contact Info) Description 05/18/2023 11:00 AM EDT Lab Patient Walk-In [facility] [facility] [address] [facility] [address] [place] [address] Caleb Pacheco MD [address] [facility] [address] [place] [address] [...] suspected to have Coronavirus/COVID-19? No / Unsure 05/18/2023 11:07 AM EDT documented as of this encounter Plan of Treatment Not on file documented as of this encounter Procedures Procedure Name Priority Date/Time Associated Diagnosis Comments CBC W/ AUTO DIFF STAT 05/18/2023 11:2 1 AM EDT Multiple myeloma without remission (HCC) HEPATIC FUNCTION PANEL Routine 05/18/2023 11:21 AM EDT Multiple myeloma without remission (HCC) BASIC METABOLIC PANEL STAT 05/18/2023 11:21 AM EDT Multiple myeloma without remission (HCC) documented in this encounter Results * (ABNORMAL) Hepatic function panel (05/18/2023 11:21 AM EDT) Protein, Total 6.4 6.4 - 8.2 gm/dL 05/18/2023 12:36 PM EDT [facility] Albumin 3.0(L) 3.4 - 5.0 g/dL 05/18/2023 12:36 PM EDT [facility] Total Bilirubin 0.5 0.2 - 1.3 mg/dL 05/18/2023 12:36 PM EDT [facility] Bilirubin, Direct <0.1 0.0 - 0.2 mg/dL 05/18/2023 12:36 PM EDT [facility] Alkaline Phosphatase 52 27 - 136 U/L 05/18/2023 12:36 PM EDT [facility] Globulin 3.4 1.5 - 4.5 g/dL 05/18/2023 12:36 PM EDT [facility] A/G Ratio 0.9(L) 1.1 - 2.5 05/18/2023 12:36 PM EDT [facility] AST 14 5 - 37 U/L 05/18/2023 12:36 PM EDT [facility] Comment:[employer] has become aware of sulfasalazine and sulfapyridine [...] prior to administration of the drug. ALT 21 12 - 78 U/L 05/18/2023 12:36 PM EDT [facility] Comment:[employer] has become aware of sulfasalazine and sulfapyridine [...] VENOUS STRUCTURE / Unknown Venipuncture / Unknown 05/18/2023 11:21 AM EDT 05/18/2023 11:25 AM EDT us Caleb Pacheco MD LAB BLOOD ORDERABLES Final Res ult [facility] [address] [phone] * (ABNORMAL) Basic Metabolic Panel (05/18/2023 11:21 AM EDT) Sodium 142 136 - 146 meq/L 05/18/2023 12:32 PM EDT [facility] Potassium 3.7 3.5 - 5.1 meq/L 05/18/2023 12:32 PM EDT [facility] Chloride 111 102 - 112 meq/L 05/18/2023 12:32 PM EDT [facility] CO2 27 21 - 32 meq/L 05/18/2023 12:32 PM EDT [facility] Anion Gap 8(L) 9 - 20 05/18/2023 12:32 PM EDT [facility] BUN 11 7 - 22 mg/dL 05/18/2023 12:32 PM EDT [facility] Creatinine 0.94 0.55 - 1.02 mg/dL 05/18/2023 12:32 PM EDT [facility] BUN/Creatinine 12 8 - 20 05/18/2023 12:32 PM EDT [facility] Glucose 102 74 - 106 mg/dL 05/18/2023 12:32 PM EDT [facility] Calcium 9.2 8.5 - 10.1 mg/dL 05/18/2023 12:32 PM EDT [facility] Osmolality Calc 282.7 12:32 PM EDT [facility] eGFR (mL/min/1.73m2) >60 >=60 mL/min/1.7 3m2 05/18/2023 12:32 PM EDT [facility] Comment:eGFR of <60 suggests chronic kidney disease if found over a 3 month period of time. eGFR <15 indicates renal failure. Blood Venipuncture / Unknown 05/18/2023 11:21 AM EDT 05/18/2023 11:25 AM EDT us Caleb Pacheco MD LAB BLOOD ORDERABLES Final Res ult [facility] [address] [phone] * (ABNORMAL) CBC with Automated Diff (05/18/2023 11:21 AM EDT) WBC 4.3(L) 4.5 - 12.5 K/??L 05/18/2023 11:28 AM EDT [facility] RBC 3.48(L) 4.00 - 5.25 M/??L 05/18/2023 11:28 AM EDT [facility] Hemoglobin 11.8(L) 12.0 - 16.0 GM/DL 05/18/2023 11:28 AM EDT [facility] Hematocrit 36.7 36.0 - 46.0 % 05/18/2023 11:28 AM EDT [facility] MCV 106(H) 80 - 100 fL 05/18/2023 11:28 AM EDT [facility] MCH 33.9 26.0 - 34.0 pg 05/18/2023 11:28 AM EDT [facility] MCHC 32.2 31.0 - 37.0 GM/DL 05/18/2023 11:28 AM EDT [facility] RDW 12.7 12.0 - 16.8 % 05/18/2023 11:28 AM EDT [facility] Platelets 147 140 - 440 K/CU MM 05/18/2023 11:28 AM EDT [facility] MPV 9.4 7.4 - 10.4 fL 05/18/2023 11:28 AM EDT [facility] % Neutros 52 45 - 80 % 05/18/2023 11:28 AM EDT [facility] % Lymphs 34 15 - 45 % 05/18/2023 11:28 AM EDT [facility] % Monos 11(H) 0 - 10 % 05/18/2023 11:28 AM EDT [facility] % Eos 3 0 - 5 % 05/18/2023 11:28 AM EDT [facility] % Baso 0 0 - 3 % 05/18/2023 11:28 AM EDT [facility] # Neutros 2.21 2.00 - 8.80 K/??L 05/18/2023 11:28 AM EDT [facility] # Lymphs 1.45 0.70 - 5.50 K/??L 05/18/2023 11:28 AM EDT [facility] # Monos 0.48 0.00 - 1.70 K/??L 05/18/2023 11:28 AM EDT [facility] # Eos 0.11 0.00 - 0.80 K/??L 05/18/2023 11:28 AM EDT [facility] # Baso 0.01 0.00 - 0.20 K/??L 05/18/2023 11:28 AM EDT [facility] Blood Venipuncture / Unknown 05/18/2023 11:21 AM EDT 05/18/2023 11:25 AM EDT Narrative [facility] - 05/18/2023 11:28 AM EDT When CBC w/ Auto Diff [...] Res ult [facility] [address] [place] [address], [facility] [phone] documented in this encounter Visit Diagnoses Diagnosis Multiple myeloma without remission (HCC) documented in this encounter
--- OUTSIDE RECORDS SUMMARY | 2024-08-03 17:02 | XMS_ITS | Encounter Summary ---
Author Organization [employer] [facility] [employer] Address [address] [place] [address] Care Team Providers Care Orthopedic Shoe Fitter Name Role Phone Unavailable Primary Care Provider Unavailabl e Encounter Details Date Type Department Care Team (Late st Contact Info) Description 06/27/2023 Orders Only [facility] - [facility] [address] [place] [address] Caleb Pacheco MD [address] [facility] [address] [place] [address] Multiple myeloma without remission (HCC) [...] suspected to have Coronavirus/COVID-19? No / Unsure 06/01/2023 10:40 AM EDT documented as of this encounter Plan of Treatment Not on file documented as of this encounter Results * (ABNORMAL) Protein Electrophoresis w Rflx to RALPH(SENDOUT) (06/29/2023 11:00 AM EDT) Total Protein, Serum 6.5 6.3 - 8.2 g/dL 07/02/2023 12:50 PM EDT [facility] Albumin 3.67(L) 3.75 - 5.01 g/dL 07/02/2023 12:50 PM EDT [facility] Alpha 1 Globulin 0.29 0.19 - 0.46 g/dL 07/02/2023 12:50 PM EDT [facility] Alpha 2 Globulin 0.85 0.48 - 1.05 g/dL 07/02/2023 12:50 PM EDT [facility] Beta Globulin 1.38(H) 0.48 - 1.10 g/dL 07/02/2023 12:50 PM EDT [facility] Gamma 0.31(L) 0.62 - 1.51 g/dL 07/02/2023 12:50 PM EDT [facility] Immunofixation Reflex RALPH Done 07/02/2023 12:50 PM EDT [facility] Monoclonal Protein 1.03 g/dL 2022 12:50 PM EDT [facility] SPEP/RALPH Interpretation See Note 07/02/2023 12:50 PM EDT [facility] Comment: Monoclonal spike in the beta region. The quantitation may include complement and/or transferrin components. Measurement of total Immunoglobulin (IgA, IgG, or IgM) can be used for the quantitation of the monoclonal spike instead. Hypogammaglobulinemia. Restricted band of protein migration in the gamma region. RALPH gel pattern shows an IgA type lambda monoclonal protein with an additional band in IgG kappa. EER Serum Protein Electrophoresis Reflex See Note 07/02/2023 12:50 PM EDT [facility] Comment: Authorized individuals can access the [facility] Enhanced Report using the following link: [email or web address] Performed By: [facility] [address] [place] [address] Marketing Development Specialist: Parker Rangel MD, PhD CLIA Number: [id number] Blood Venipuncture / Unknown 06/29/2023 11:00 AM EDT 06/29/2023 11:19 AM EDT Caleb Pacheco MD LAB BLOOD ORDERABLES Final Res ult Performing Organization Address [facility] de Phone Number [facility] [employer] [address] [phone] * [place]-Lambda Quant FLC with Ratio(SENDOUT) (06/29/2023 11:00 AM EDT) [place] Qnt Free Light Chains 7.29 3.30 - 19.40 mg/L 06/30/2023 6:28 PM EDT [facility] Comment: INTERPRETIVE INFORMATION: [place] Qnt Free Light Chains Undetected antigen excess is a rare event but cannot be excluded. Free light chain results should always be interpreted in conjunction with other clinical and laboratory findings. Lambda Qnt Free Light Chains 16.63 5.71 - 26.30 mg/L 06/30/2023 6:28 PM EDT [facility] Comment: INTERPRETIVE INFORMATION: [place]ambda Qnt Free Light Chains Undetected antigen excess is a rare event but cannot be excluded. Free light chain results should always be interpreted in conjunction with other clinical and laboratory findings. [place]/Lambda Free Light Chain Ratio 0.44 0.26 - 1.65 06/30/2023 6:28 PM EDT [facility] Comment: Performed By: [facility] [address] [place] [address] Marketing Development Specialist: Parker Rangel MD, PhD CLIA Number: [id number] Blood Venipuncture / Unknown 06/29/2023 11:00 AM EDT 06/29/2023 11:19 AM EDT Caleb Pacheco MD LAB BLOOD ORDERABLES Final Res ult Performing Organization Address City/[facility]/ZIP Co de Phone Number [facility] [address] [phone] * (ABNORMAL) Comprehensive metabolic panel (06/29/2023 11:00 AM EDT) Sodium 143 136 - 146 meq/L 06/29/2023 12:04 PM EDT [facility] Potassium 3.8 3.5 - 5.1 meq/L 06/29/2023 12:04 PM [facility] Chloride 114(H) 102 - 112 meq/L 06/29/2023 12:04 PM [facility] CO2 22 21 - 32 meq/L 06/29/2023 12:04 PM [facility] Calcium 9.2 8.5 - 10.1 mg/dL 06/29/2023 12:04 PM [facility] Glucose 104 74 - 106 mg/dL 06/29/2023 12:04 PM [facility] BUN 12 7 - 22 mg/dL 06/29/2023 12:04 PM [facility] Creatinine 0.89 0.55 - 1.02 mg/dL 06/29/2023 12:04 PM [facility] BUN/Creatinine 13 8 - 20 06/29/2023 12:04 PM [facility] Albumin 3.4 3.4 - 5.0 g/dL 06/29/2023 12:04 PM [facility] Alkaline Phosphatase 42 27 - 136 U/L 06/29/2023 12:04 PM [facility] ALT 17 12 - 78 U/L 06/29/2023 12:04 PM [facility] AST 16 5 - 37 U/L 06/29/2023 12:04 PM [facility] Total Bilirubin 0.5 0.2 - 1.3 mg/dL 06/29/2023 12:04 PM [facility] Protein, Total 7.0 6.4 - 8.2 gm/dL 06/29/2023 12:04 PM [facility] Anion Gap 11 9 - 20 06/29/2023 12:04 PM [facility] A/G Ratio 0.9(L) 1.1 - 2.5 06/29/2023 12:04 PM [facility] Globulin 3.6 1.5 - 4.5 g/dL 06/29/2023 12:04 PM [facility] Osmolality Calc 285.0 12:04 PM [facility] eGFR (mL/min/1.73m2) >60 >=60 mL/min/1.7 3m2 06/29/2023 12:04 PM EDT [facility] Comment:ESTIMATED GFR IS NOT ACCURATE CREATININE CLEARANCE IN PREDICTING GLOMERULAR FILTRATION RATE. ESTIMATED GFR IS NOT APPLICABLE FOR DIALYSIS PATIENTS. Blood Venipuncture / Unknown 06/29/2023 11:00 AM EDT 06/29/2023 11:19 AM EDT us Caleb Pacheco MD LAB BLOOD ORDERABLES Final Res ult [facility] [address] [place] [address], [facility] [phone] * (ABNORMAL) CBC with Automated Diff (06/29/2023 11:00 AM EDT) WBC 5.0 4.5 - 12.5 K/??L 06/29/2023 11:23 AM EDT [facility] RBC 3.82(L) 4.00 - 5.25 M/??L 06/29/2023 11:23 AM EDT [facility] Hemoglobin 12.6 12.0 - 16.0 GM/DL 06/29/2023 11:23 AM EDT [facility] Hematocrit 39.4 36.0 - 46.0 % 06/29/2023 11:23 AM EDT [facility] MCV 103(H) 80 - 100 fL 06/29/2023 11:23 AM EDT [facility] MCH 33.0 26.0 - 34.0 pg 06/29/2023 11:23 AM EDT [facility] MCHC 32.0 31.0 - 37.0 GM/DL 06/29/2023 11:23 AM EDT [facility] RDW 12.8 12.0 - 16.8 % 06/29/2023 11:23 AM EDT [facility] Platelets 176 140 - 440 K/CU MM 06/29/2023 11:23 AM EDT [facility] MPV 9.9 7.4 - 10.4 fL 06/29/2023 11:23 AM EDT [facility] % Neutros 39(L) 45 - 80 % 06/29/2023 11:23 AM EDT [facility] % Lymphs 47(H) 15 - 45 % 06/29/2023 11:23 AM EDT [facility] % Monos 11(H) 0 - 10 % 06/29/2023 11:23 AM EDT [facility] % Eos 2 0 - 5 % 06/29/2023 11:23 AM EDT [facility] % Baso 0 0 - 3 % 06/29/2023 11:23 AM EDT [facility] # Neutros 1.97(L) 2.00 - 8.80 K/??L 06/29/2023 11:23 AM EDT [facility] # Lymphs 2.36 0.70 - 5.50 K/??L 06/29/2023 11:23 AM EDT [facility] # Monos 0.57 0.00 - 1.70 K/??L 06/29/2023 11:23 AM EDT [facility] # Eos 0.09 0.00 - 0.80 K/??L 06/29/2023 11:23 AM EDT [facility] # Baso 0.02 0.00 - 0.20 K/??L 06/29/2023 11:23 AM EDT [facility] Blood Venipuncture / Unknown 06/29/2023 11:00 AM EDT 06/29/2023 11:19 AM EDT Narrative [facility] - 06/29/2023 11:23 AM EDT When CBC w/ Auto [...] Res ult [facility] [address] [address] [phone] documented in this encounter Visit Diagnoses Diagnosis Multiple myeloma without remission (HCC)- Primary documented in this encounter
--- OUTSIDE RECORDS SUMMARY | 2024-08-03 17:02 | XMS_ITS | Encounter Summary ---
Author Organization [employer] Address [address] [place] [address] Care Team Providers Care Assignment Clerk Name Role Phone Unavailable Primary Care Provider Unavailabl e Reason for Visit * Reason Comments Injections * Episode Based Medication (Routine) - Closed Specialty Diagnoses / Procedures Referred By Ana Paula anne Referred To Contact Diagnoses Multiple myeloma without remission (HCC) Procedures [place] DARATUMUMAB, HYALURONIDASE [id number] Caleb Pacheco MD [address] [facility] [address] [place] [address] Phone: tel: fax: [facility] - [facility] [address] [facility] [address] [place] [address] Phone: tel: fax: Referral ID Status Reason Start Date Expiration Date Visits Re quested Visits Authorized [id number] Closed 10/20/2022 05/14/2024 1 100 Encounter Details Date Type Department Care Team (Late st Contact Info) Description 05/18/2023 12:00 PM EDT Infusion [facility] - [facility] [address] [place] [address] Caleb Pacheco MD [address] [facility] [address] [place] [address] Multiple myeloma without remission (HCC) [...] Progress Notes * Kandi Ford RN - 05/18/2023 12:00 PM EDT Tolerated injection well. Discharged in stable condition documented [...] 650 mg 650 mg Once, oral, On Wed05/18/23 at 1300, For 1 dose, Recommended maximum dose of acetaminophen is 4000 mg from all sources in 24 hoursIndications:Multip le myeloma without remission (HCC) Given 05/18/2023 12:42 PM EDT 650 mg daratumumab-hyaluronida se-fij (DARZALEX FASPRO) 1,800 mg-30,000 unit/15 mL subcutaneous injection 1,800 mg 1,800 mg Once, subcutaneous, at 300 mL/hr, On Wed05/18/23 at 1300, For 1 dose, FLAT DOSING Administer into the subcutaneous tissue of the abdomen about 3 inches to the right or left of the navel over 3-5 minutes. Rotate injection sites for successive injections.Indications: Multiple myeloma without remission (HCC) Given 05/18/2023 1:04 PM EDT 1,800 mg 300 mL/hr Abdominal Tissue diphenhydrAMINE (BENADRYL) capsule 25 mg 25 mg Once, oral, On Wed05/18/23 at 1300, For 1 dose,Indications:Multip le myeloma without remission (HCC) Given 05/18/2023 12:42 PM EDT 25 mg documented in this encounter
--- OUTSIDE RECORDS SUMMARY | 2024-08-03 17:02 | XMS_ITS | Encounter Summary ---
Author Organization [employer] Address [address] [place] [address] Care Team Providers Care Cosmetology Educator Name Role Phone Unavailable Primary Care Provider Unavailabl e Encounter Details Date Type Department Care Team (Late st Contact Info) Description 05/16/2023 Orders Only [facility] - [employer] [address] [place] [address] Caleb Pacheco MD [address] [facility] [address] [place] [address] Multiple myeloma without remission (HCC) [...] suspected to have Coronavirus/COVID-19? No / Unsure 05/04/2023 11:18 AM EDT documented as of this encounter Plan of Treatment Not on file documented as of this encounter Visit Diagnoses Diagnosis Multiple myeloma without remission (HCC)- Primary documented in this encounter
--- OUTSIDE RECORDS SUMMARY | 2024-08-03 17:02 | XMS_ITS | Encounter Summary ---
Author Organization [employer] Address [address] [place] [address] Care Team Providers Care Supervisor Filtration Name Role Phone Unavailable Primary Care Provider Unavailabl e Encounter Details Date Type Department Care Team (Late st Contact Info) Description 04/01/2023 Orders Only [facility] - [facility] [address] [facility] [address] [place] [address] Donna Almodovar APRN [address] [facility] [address] [place] [address] Multiple myeloma without remission (HCC) (Primary Dx) [...] suspected to have Coronavirus/COVID-19? No / Unsure 03/05/2023 8:27 AM EDT documented as of this encounter Progress Notes * Donna Almodovar, SHARAD - 04/01/2023 2:47 PM EDT Rad onc documented in this encounter Plan of Treatment Not on file documented as of this encounter Visit Diagnoses Diagnosis Multiple myeloma without remission (HCC)- Primary documented in this encounter
--- OUTSIDE RECORDS SUMMARY | 2024-08-03 17:02 | XMS_ITS | Encounter Summary ---
Author Organization [employer] Address [address] [place] [address] Care Team Providers Care Front Counter Clerk Name Role Phone Unavailable Primary Care Provider Unavailabl e Encounter Details Date Type Department Care Team (Latest Contact Info) Description 06/29/2023 11:00 AM EDT Lab Patient Walk-In [facility] - [facility] [address] [place] [address] Caleb Pacheco MD [address] [facility] [address] [place] [address] Multiple myeloma without remission (HCC) [...] Associated Diagnosis Comments IMMUNOFIX ELECTROPHORESIS BILL(SENDOUT) Routine 06/29/2023 11:00 AM EDT Multiple myeloma without remission (HCC) CBC W/ AUTO DIFF STAT 06/29/2023 11:0 0 AM EDT Multiple myeloma without remission (HCC) PROTEIN ELECTROPHORESIS W RFLX TO RALPH(SENDOUT) Routine 06/29/2023 11:00 AM EDT Multiple myeloma without remission (HCC) [place]-LAMBDA QUANT FLC WITH RATIO(SENDOUT) Routine 06/29/2023 11:00 AM EDT Multiple myeloma without remission (HCC) IMMUNOGLOBULIN M(SENDOUT) Routine 06/29/2023 11:00 AM EDT Multiple myeloma without remission (HCC) IMMUNOGLOBULIN G(SENDOUT) Routine 06/29/2023 11:00 AM EDT Multiple myeloma without remission (HCC) IMMUNOGLOBULIN A(SENDOUT) Routine 06/29/2023 11:00 AM EDT Multiple myeloma without remission (HCC) COMPREHENSIVE METABOLIC PANEL STAT 06/29/2023 11:00 AM EDT Multiple myeloma without remission (HCC) documented in this encounter Results * Immun[employer]ix Electrophoresis Bill(SENDOUT) (06/29/2023 11:00 AM EDT) [facility]ix Electrophoresis Bill Billed 07/02/2023 12:50 PM EDT [facility] Comment: Performed By: [employer] [address] [place] [address] Knife Operator: Parker Rangel MD, PhD CLIA Number: [id number] Blood Venipuncture / Unknown 06/29/2023 11:00 AM EDT 06/29/2023 11:19 AM EDT Caleb Pacheco MD LAB BLOOD ORDERABLES Final Res ult [facility] [address] [place] [address], [facility] [phone] * (ABNORMAL) Immunoglobulin A(SENDOUT) (06/29/2023 11:00 AM EDT) Pathologist [facility] Immunoglobulin A 690(H) 68 - 408 mg/dL 07/02/2023 10:32 AM EDT [facility] Comment: REFERENCE INTERVAL: Immunoglobulin A Access complete set of age- and/or gender-specific reference intervals for this test in the [facility] Test Directory ([employer]). Performed By: [employer] [address] [place] [address] Knife Operator: Parker Rangel MD, PhD CLIA Number: [id number] Blood Venipuncture / Unknown 06/29/2023 11:00 AM EDT 06/29/2023 11:19 AM EDT Caleb Pacheco MD LAB BLOOD ORDERABLES Final Res ult Performing Organization Address [facility] de Phone Number [employer] [address] [place] [address] * (ABNORMAL) Immunoglobulin M(SENDOUT) (06/29/2023 11:00 AM EDT) [facility] Immunoglobulin M 17(L) 35 - 263 mg/dL 07/02/2023 10:32 AM EDT [facility] Comment: REFERENCE INTERVAL: Immunoglobulin M Access complete set of age- and/or gender-specific reference intervals for this test in the [facility] Test Directory ([employer]). Performed By: [employer] [address] [place] [address] Knife Operator: Parker Rangel MD, PhD CLIA Number: [id number] Blood Venipuncture / Unknown 06/29/2023 11:00 AM EDT 06/29/2023 11:19 AM EDT us Caleb Pacheco MD LAB BLOOD ORDERABLES Final Res ult Performing Organization Address [facility] de Phone Number [facility] [employer] [address] [place] [address] * (ABNORMAL) Immunoglobulin G(SENDOUT) (06/29/2023 11:00 AM EDT) Pathologist [facility] Immunoglobulin G 347(L) 768 - 1632 mg/dL 07/02/2023 10:32 AM EDT [facility] [employer] Comment: REFERENCE INTERVAL: Immunoglobulin G Access complete set of age- and/or gender-specific reference intervals for this test in the [facility] Laboratory Test Directory ([employer]). Performed By: [facility] [email or web address] [address] [place] [address] Knife Operator: Parker Rangel MD, PhD CLIA Number: [id number] Blood Venipuncture / Unknown 06/29/2023 11:00 AM EDT 06/29/2023 11:19 AM EDT us Caleb Pacheco MD LAB BLOOD [place] [address], [facility] [phone] * (ABNORMAL) Protein Electrophoresis w Rflx to RALPH(SENDOUT) (06/29/2023 11:00 AM EDT) Pathologist [facility] Total Protein, Serum 6.5 6.3 - 8.2 g/dL 07/02/2023 12:50 PM EDT [facility] Albumin 3.67(L) 3.75 - 5.01 g/dL 07/02/2023 12:50 PM EDT [facility] Alpha 1 Globulin 0.29 0.19 - 0.46 g/dL 07/02/2023 12:50 PM EDT [facility] Alpha 2 Globulin 0.85 0.48 - 1.05 g/dL 07/02/2023 12:50 PM EDT [facility] Beta Globulin 1.38(H) 0.48 - 1.10 g/dL 07/02/2023 12:50 PM EDT [facility] Gamma 0.31(L) 0.62 - 1.51 g/dL 07/02/2023 12:50 PM EDT [facility] Immunofixation Reflex RALPH Done 07/02/2023 12:50 PM EDT [facility] Monoclonal Protein 1.03 g/dL 2022 12:50 PM EDT [facility] SPEP/RALPH Interpretation See Note 07/02/2023 12:50 PM EDT [facility] Comment: Monoclonal spike in the [...] Reflex See Note 07/02/2023 12:50 PM EDT [facility] [employer] Comment: Authorized individuals can access the [facility] Enhanced Report using the following link: [email or web address] Performed By: [employer] [address] [place] [address] Knife Operator: Parker Rangel MD, PhD CLIA Number: [id number] Blood Venipuncture / Unknown 06/29/2023 11:00 AM EDT 06/29/2023 11:19 AM EDT us Caleb Pacheco MD LAB BLOOD ORDERABLES Final Res ult [facility] [address] [place] [address], [facility] [phone] * [place]-Lambda Quant FLC with Ratio(SENDOUT) (06/29/2023 11:00 AM EDT) [place] Qnt Free Light Chains 7.29 3.30 - 19.40 mg/L 06/30/2023 6:28 PM EDT [facility] [employer] Comment: INTERPRETIVE INFORMATION: [place] Qnt Free Light Chains Undetected antigen excess is a rare event but cannot be excluded. Free light chain results should always be interpreted in conjunction with other clinical and laboratory findings. Lambda Qnt Free Light Chains 16.63 5.71 - 26.30 mg/L 06/30/2023 6:28 PM EDT [facility] Comment: INTERPRETIVE INFORMATION: Lambda Qnt Free Light Chains Undetected antigen excess is a rare event but cannot be excluded. Free light chain results should always be interpreted in conjunction with other clinical and laboratory findings. [place]/Lambda Free Light Chain Ratio 0.44 0.26 - 1.65 06/30/2023 6:28 PM EDT [facility] Comment: Performed By: [employer] [address] [place] [address] Knife Operator: Parker Rangel MD, PhD CLIA Number: [id number] Blood Venipuncture / Unknown 06/29/2023 11:00 AM EDT 06/29/2023 11:19 AM EDT us Caleb Pacheco MD LAB BLOOD ORDERABLES Final Res ult [facility] [address] [place] [address], [facility] [phone] * (ABNORMAL) Comprehensive metabolic panel (06/29/2023 11:00 AM EDT) Sodium 143 136 - 146 meq/L 06/29/2023 12:04 PM EDT [facility] Potassium 3.8 3.5 - 5.1 meq/L 06/29/2023 12:04 PM EDT [facility] Chloride 114(H) 102 - 112 meq/L 06/29/2023 12:04 PM EDT [facility] CO2 22 21 - 32 meq/L 06/29/2023 12:04 PM EDT [facility] Calcium 9.2 8.5 - 10.1 mg/dL 06/29/2023 12:04 PM EDT [facility] Glucose 104 74 - 106 mg/dL 06/29/2023 12:04 PM EDT [facility] BUN 12 7 - 22 mg/dL 06/29/2023 12:04 PM EDT [facility] Creatinine 0.89 0.55 - 1.02 mg/dL 06/29/2023 12:04 PM EDT [facility] BUN/Creatinine 13 8 - 20 06/29/2023 12:04 PM EDT [facility] Albumin 3.4 3.4 - 5.0 g/dL 06/29/2023 12:04 PM EDT [facility] Alkaline Phosphatase 42 27 - 136 U/L 06/29/2023 12:04 PM EDT [facility] ALT 17 12 - 78 U/L 06/29/2023 12:04 PM EDT [facility] AST 16 5 - 37 U/L 06/29/2023 12:04 PM EDT [facility] Total Bilirubin 0.5 0.2 - 1.3 mg/dL 06/29/2023 12:04 PM EDT [facility] Protein, Total 7.0 6.4 - 8.2 gm/dL 06/29/2023 12:04 PM EDT [facility] Anion Gap 11 9 - 20 06/29/2023 12:04 PM EDT [facility] A/G Ratio 0.9(L) 1.1 - 2.5 06/29/2023 12:04 PM EDT [facility] Globulin 3.6 1.5 - 4.5 g/dL 06/29/2023 12:04 PM EDT [facility] Osmolality Calc 285.0 12:04 PM T [facility] eGFR (mL/min/1.73m2) >60 >=60 mL/min/1.7 3m2 06/29/2023 12:04 PM T [facility] Comment:ESTIMATED GFR IS NOT ACCURATE CREATININE CLEARANCE IN PREDICTING GLOMERULAR FILTRATION RATE. ESTIMATED GFR IS NOT APPLICABLE FOR DIALYSIS PATIENTS. Blood Venipuncture / Unknown 06/29/2023 11:00 AM EDT 06/29/2023 11:19 AM EDT us Caleb Pacheco MD LAB BLOOD ORDERABLES Final Res ult [facility] [address] [place] [address], [facility] [phone] * (ABNORMAL) CBC with Automated Diff (06/29/2023 [...] Res ult [facility] [address] [phone] documented in this encounter Visit Diagnoses Diagnosis Multiple myeloma without remission (HCC) documented in this encounter
--- OUTSIDE RECORDS SUMMARY | 2024-08-03 17:02 | XMS_ITS | Encounter Summary ---
Author Organization [employer] Address [address] [place] [address] Care Team Providers Care Lombardi Developer Name Role Phone Unavailable Primary Care Provider Unavailabl e Reason for Visit * Reason Onset Date Comments cough-requesting strong cough medicine Encounter Details Date Type Department Care Team (Late st Contact Info) Description 05/17/2023 Telephone [facility] - [facility] [address] [place] [address] [address] [place] [address] Caleb Pacheco MD [address] [facility] [address] [place] [address] cough-requesting strong cough medicine Social History Tobacco Use Types Packs/Day Years [...] Telephone Encounter - Nicki Thurston RN - 05/18/2023 8:10 AM EDT No return call from patient. She sees SP today at 11am. Rn notified SP of her request since unable to discuss with pt and assess symptoms yesterday. * Telephone Encounter - Nicki Thurston RN - 05/17/2023 2:59 PM EDT Pt called into RN line stating that she is seeing SP tomorrow but she is needing a strong cough med sent to [facility]. Rn returned call to pt to assess symptoms but she did not answer. LM to have pt return call. documented in this encounter Plan of Treatment Not on file documented as of this encounter Visit Diagnoses Not on filedocumented in this encounter
--- OUTSIDE RECORDS SUMMARY | 2024-08-03 17:02 | XMS_ITS | Encounter Summary ---
Author Organization [employer] [facility] [employer] Address [address] [place] [address] Care Team Providers Care Flag Signalman Name Role Phone Unavailable Primary Care Provider Unavailabl e Reason for Visit * Reason Comments Follow-up 1m f/u with labs and infusion Malignant neoplasm of thymus Encounter Details Date Type Department Care Team (Late st Contact Info) Description 06/29/2023 11:15 AM EDT Office Visit [facility] [place] [facility] - [facility] [address] [place] [address] [address] [place] [address] Raimundo Pacheco MD [address] [facility] [address] [place] [address] Multiple myeloma without remission (HCC) [...] AM EDT documented as of this encounter Last Filed Vital Signs Vital Sign Reading Time Taken Comments Blood Pressure 158/86 06/29/2023 11:20 AM EDT Pulse 76 06/29/2023 11:20 AM EDT Temperature 36.6 ??C (97.9 ??F) 06/29/2023 1 1:20 AM EDT Respiratory Rate 18 06/29/2023 11:2 0 AM EDT Oxygen Saturation 96% 06/29/2023 11: 20 AM EDT Inhaled Oxygen Concentration - - Weight 124.1 kg (273 lb 9.6 oz) 023 11:20 AM EDT Height 172.7 cm (5' 8 ) 06/29/2023 11:2 0 AM EDT Body Mass Index 41.6 06/29/2023 11:20 AM EDT documented in this encounter Progress Notes * Raimundo Pacheco MD - 06/29/2023 11:15 AM EDT Chief Complaint: History of Present Illness: Francy Bailey is a 62 y.o. female who presents today for follow up of multiple myeloma. She is on Darzalex with steroids. When she was on pomalidomide it made her severely cytopenic. She isnow at the point that she is receiving Darzalex once a month. She complains of pain in her knee andfoot. She still has some back discomfort. She has had no new areas of bone pain. She is without othe r additional complaints or problems today Past Medical History: Diagnosis Date ??? Asthma ??? Autologous bone marrow transplantation status (HCC) ??? Chronic low back pain ??? DVT (deep venous thrombosis) ([facility]) ??? History of shingles 12/2019 ??? [...] Treatment Summary Treatment goal Palliative Plan Name [facility] Multiple Myeloma - daratumumab (Darzalex) IV d1,8,15,22 fb D1,15 fb d1 + pomalidomide(Pomalyst) PO d1-21 every 28 days Status Active Start Date 11/03/2022 End Date 10/19/2023 (Planned) Provider Raimundo Pacheco MD Chemotherapy pomalidomide 4 mg Cap, 4 mg, Oral, Daily, 1 of 1 cycle, Start date: --, End date: -- hrtjgarpqxg-vkpswzcwrwcoa-hpfu (DARZALEX FASPRO) 1,800 mg-30,000 unit/15 mL subcutaneous injection 1,800 mg, 1,800 mg, Subcutaneous, Once, 8 of 12 cycles Administration: 1,800 mg (11/03/2022), 1,800 mg (11/10/2022), 1,800 mg (12/01/2022), 1,800 mg (12/15/2022), 1,800 mg (12/22/2022), 1,800 mg (01/12/2023), 1,800 mg (02/02/2023), 1,800 mg (02/16/2023), 1,800 mg(06/01/2023), 1,800 mg (12/29/2022), 1,800 mg (01/20/2023), 1,800 mg (03/02/2023), 1,800 mg (03/16/2023), 1,800 mg (04/06/2023), 1,800 mg (04/20/2023), 1,800 mg (05/04/2023), 1,800 mg (05/18/2023), 1,800 mg (06/29/2023) Allergies: Ampicillin, Codeine, Indomethacin, Morphine, and Penicillin [...] systems reviewed and are negative. Vitals: Vitals: 06/29/23 1120 BP: (!) 158/86 Pulse: 76 Resp: 18 Temp: 97.9 ??F (36.6 ??C) SpO2: 96% Weight: 124.1 kg (273 lb 9.6 oz) Height: 1.727 m (5' [...] of motion and neck supple. Comments: Subjective of discomfort in the lower lumbar spine Neurological: General: No focal deficit present. Mental Status: She is alert. Relevant Results: Lab Patient Walk-In on 06/29/2023 Component Date Value Ref Range Status ??? WBC 06/29/2023 5.0 4.5 - 12.5 K/??L Final ??? RBC 06/29/2023 3.82 (L) 4.00 - 5.25 M/??L Final ??? Hemoglobin 06/29/2023 12.6 12.0 - 16.0 GM/DL Final ??? Hematocrit 06/29/2023 39.4 36.0 - 46.0 % Final ??? MCV 06/29/2023 103 (H) 80 - 100 fL Final ??? MCH 06/29/2023 33.0 26.0 - 34.0 pg Final ??? MCHC 06/29/2023 32.0 31.0 - 37.0 GM/DL Final ??? RDW 06/29/2023 12.8 12.0 - 16.8 % Final ??? Platelets 06/29/2023 176 140 - 440 K/CU MM Final ??? MPV 06/29/2023 9.9 7.4 - 10.4 fL Final ??? % Neutros 06/29/2023 39 (L) 45 - 80 % Final ??? % Lymphs 06/29/2023 47 (H) 15 - 45 % Final ??? % Monos 06/29/2023 11 (H) 0 - 10 % Final ??? % Eos 06/29/2023 2 0 - 5 % Final ??? % Baso 06/29/2023 0 0 - 3 % Final ??? # Neutros 06/29/2023 1.97 (L) 2.00 - 8.80 K/??L Final ??? # Lymphs 06/29/2023 2.36 0.70 - 5.50 K/??L Final ??? # Monos 06/29/2023 0.57 0.00 - 1.70 K/??L Final ??? # Eos 06/29/2023 0.09 0.00 - 0.80 K/??L Final ??? # Baso 06/29/2023 0.02 0.00 - 0.20 K/??L Final ??? Sodium 06/29/2023 143 136 - 146 meq/L Final ??? Potassium 06/29/2023 3.8 3.5 - 5.1 meq/L Final ??? Chloride 06/29/2023 114 (H) 102 - 112 meq/L Final ??? CO2 06/29/2023 22 21 - 32 meq/L Final ??? Calcium 06/29/2023 9.2 8.5 - 10.1 mg/dL Final ??? Glucose 06/29/2023 104 74 - 106 mg/dL Final ??? BUN 06/29/2023 12 7 - 22 mg/dL Final ??? Creatinine 06/29/2023 0.89 0.55 - 1.02 mg/dL Final ??? BUN/Creatinine 06/29/2023 13 8 - 20 Final ??? Albumin 06/29/2023 3.4 3.4 - 5.0 g/dL Final ??? Alkaline Phosphatase 06/29/2023 42 27 - 136 U/L Final ??? ALT 06/29/2023 17 12 - 78 U/L Final ??? AST 06/29/2023 16 5 - 37 U/L Final ??? Total Bilirubin 06/29/2023 0.5 0.2 - 1.3 mg/dL Final ??? Protein, Total 06/29/2023 7.0 6.4 - 8.2 gm/dL Final ??? Anion Gap 06/29/2023 11 9 - 20 Final ??? A/G Ratio 06/29/2023 0.9 (L) 1.1 - 2.5 Final ??? Globulin 06/29/2023 3.6 1.5 - 4.5 g/dL Final ??? Osmolality Calc 06/29/2023 285.0 Final ? ? eGFR (mL/min/1.73m2) 06/29/2023 >60 >=60 mL/min/1.73m2 Final ESTIMATED GFR IS NOT ACCURATE CREATININE CLEARANCE IN PREDICTING GLOMERULAR FILTRATION RATE. ESTIMATED GFR IS NOT APPLICABLE FOR DIALYSIS PATIENTS. No results found. Cancer Staging No matching staging information was found for the patient. Plan: I show that her immunoelectrophoresis is down to 0.8 g. Is about a 60% improvement from time of initiation of treatment. Her hemoglobin is improved her calcium and kidney function is normal. She will get Darzalex today 1800 mg subcutaneously premedicated with dexamethasone 20 and Zofran 8 orally. She sees me once a month. I did not make other recommendations today and overall she is stable.She stated once again that she does not want to go through a bone marrow transplant again. Signed: Electronically signed by RAIMUNDO PACHECO MD 06/29/23 5:58 PM EDT No primary care provider on file. documented in this encounter Plan of Treatment Not on file documented as of this encounter Results * (ABNORMAL) Protein Electrophoresis w Rflx to RALPH(SENDOUT) (07/27/2023 10:50 AM EST) Total Protein, Serum 6.1(L) 6.3 - 8.2 g/dL 07/30/2023 1:01 PM EST [facility] Albumin 3.45(L) 3.75 - 5.01 g/dL 07/30/2023 1:01 PM EST [facility] Alpha 1 Globulin 0.26 0.19 - 0.46 g/dL 07/30/2023 1:01 PM EST [facility] Alpha 2 Globulin 0.78 0.48 - 1.05 g/dL 07/30/2023 1:01 PM EST [facility] Beta Globulin 1.36(H) 0.48 - 1.10 g/dL 07/30/2023 1:01 PM EST [facility] Gamma 0.25(L) 0.62 - 1.51 g/dL 07/30/2023 1:01 PM EST [facility] Immunofixation Reflex RALPH Done 07/30/2023 1:01 PM EST [facility] Monoclonal Protein 1.09 g/dL 2022 1:01 PM EST [facility] SPEP/RALPH Interpretation See Note 07/30/2023 1:01 PM EST [facility] Comment: Monoclonal spike in the beta [...] Electrophoresis Reflex See Note 07/30/2023 1:01 PM EST [employer] Comment: Authorized individuals can access the [facility] Enhanced Report using the following link: [email or web address] Performed By: [facility] [address] [place] [address] Roller Shop Utility Worker: Parker Rangel MD, PhD CLIA Number: [id number] Blood Venipuncture / Unknown 07/27/2023 10:50 AM EST 07/27/2023 10:54 AM EST Raimundo Pacheco MD LAB BLOOD ORDERABLES Final Res ult [facility] [address] [place] [address] * [place]-Lambda Quant FLC with Ratio(SENDOUT) (07/27/2023 10:50 AM EST) [place] Qnt Free Light Chains 6.02 3.30 - 19.40 mg/L 07/28/2023 9:30 PM EST [employer] Comment: INTERPRETIVE INFORMATION: [place] Qnt Free Light Chains Undetected antigen excess is a rare event but cannot be excluded. Free light chain results should always be interpreted in conjunction with other clinical and laboratory findings. Lambda Qnt Free Light Chains 17.09 5.71 - 26.30 mg/L 07/28/2023 9:30 PM EST [employer] Comment: INTERPRETIVE INFORMATION: Lambda Qnt Free Light Chains Undetected antigen excess is a rare event but cannot be excluded. Free light chain results should always be interpreted in conjunction with other clinical and laboratory findings. [place]/Lambda Free Light Chain Ratio 0.35 0.26 - 1.65 07/28/2023 9:30 PM EST [employer] Comment: Performed By: [facility] [address] [place] [address] Rol[employer] Shop Utility Worker: Parker Rangel MD, PhD CLIA Number: [id number] Blood Venipuncture / Unknown 07/27/2023 10:50 AM EST 07/27/2023 10:54 AM EST Raimundo Pacheco MD LAB BLOOD ORDERABLES Final Res ult [employer] [address] [place] [address], [facility] [phone] documented in this encounter Visit Diagnoses Diagnosis Multiple myeloma without remission (HCC)- Primary documented in this encounter
--- OUTSIDE RECORDS SUMMARY | 2024-08-03 17:02 | XMS_ITS | Encounter Summary ---
Author Organization [employer] Address [address] [place] [address] Care Team Providers Care Human Resources Team Member Name Role Phone Unavailable Primary Care Provider Unavailabl e Reason for Visit * Reason Comments Chemotherapy * Episode Based Medication (Routine) - Closed Specialty Diagnoses / Procedures Referred By Ana Paula anne Referred To Contact Diagnoses Multiple myeloma without remission (HCC) Procedures MT DARATUMUMAB, HYALURONIDASE [id number] Caleb Pacheco MD [address] [place] [address] Phone: tel: fax: [facility] - [facility] [address] [facility] [address] [place] [address] Phone: tel: fax: Referral ID Status Reason Start Date Expiration Date Visits Re quested Visits Authorized [id number] Closed 10/20/2022 05/14/2024 1 100 Encounter Details Date Type Department Care Team (Late st Contact Info) Description 04/06/2023 9:15 AM EDT Infusion [facility] [facility] - [facility] [address] [place] [address] Caleb Pacheco MD [address] [facility] [address] [place] [address] Multiple myeloma without remission (HCC) [...] Progress Notes * Myla Franco RN - 04/06/2023 9:15 AM EDTSummary: discharge 1241: Injection given in left abdomen. SM documented in this encounter Plan of Treatment Not on file documented as of this encounter Visit Diagnoses Diagnosis Multiple myeloma without remission (HCC)- Primary documented in this encounter Administered Medications Inactive Administered Medications - up to 3 most recent administrations Medication Order MAR Action Action Date Dose Rate Site acetaminophen (TYLENOL) tablet 650 mg 650 mg Once, oral, On Wed04/06/23 at 1130, For 1 dose, Recommended maximum dose of acetaminophen is 4000 mg from all sources in 24 hoursIndications:Multip le myeloma without remission (HCC) Given 04/06/2023 11:21 AM EDT 650 mg daratumumab-hyaluronida se-fihj (DARZALEX FASPRO) 1,800 mg-30,000 unit/15 mL subcutaneous injection 1,800 mg 1,800 mg Once, subcutaneous, at 300 mL/hr, On Wed04/06/23 at 1130, For 1 dose, Administer into the subcutaneous tissue of the abdomen about 3 inches to the right or left of the navel over 3-5 minutes. Rotate injection sites for successive injections.Indications: Multiple myeloma without remission (HCC) Given 04/06/2023 12:34 PM EDT 1,800 mg 300 mL/hr Abdominal Tissue diphenhydrAMINE (BENADRYL) capsule 25 mg 25 mg Once, oral, On Wed04/06/23 at 1130, For 1 dose,Indications:Multip le myeloma without remission (HCC) Given 04/06/2023 11:21 AM EDT 25 mg documented in this encounter
--- OUTSIDE RECORDS SUMMARY | 2024-08-03 17:02 | XMS_ITS | Encounter Summary ---
Author Organization [employer] Address [address] [place] [address] Care Team Providers Care Lasting Machine Operator Name Role Phone Unavailable Primary Care Provider Unavailabl e Reason for Visit * Episode Based Medication (Routine) - Closed Specialty Diagnoses / Procedures Referred By Ana Paula anne Referred To Contact Diagnoses Multiple myeloma without remission (HCC) Procedures [place] DARATUMUMAB, HYALURONIDASE Daratumumab-[id number] Caleb Pacheco MD [address] [facility] [address] [place] [address] Phone: tel: fax: [facility] - [facility] [address] [place] [address] Phone: tel: fax: Referral ID Status Reason Start Date Expiration Date Visits Re quested Visits Authorized [id number] Closed 10/20/2022 05/14/2024 1 100 Encounter Details Date Type Department Care Team (Latest Contact Info) Description 04/20/2023 11:00 AM EDT Lab Patient Walk-In [facility] [place] [facility] - [facility] [address] [place] [address] Caleb Pacheco MD [address] [facility] [address] [place] [address] Multiple myeloma without remission (HCC) [...] Diagnosis Comments CBC W/ AUTO DIFF STAT 04/20/2023 10:3 7 AM EDT Multiple myeloma without remission (HCC) HEPATIC FUNCTION PANEL Routine 04/20/2023 10:37 AM EDT Multiple myeloma without remission (HCC) BASIC METABOLIC PANEL STAT 04/20/2023 10:37 AM EDT Multiple myeloma without remission (HCC) documented in this encounter Results * (ABNORMAL) Hepatic function panel (04/20/2023 10:37 AM EDT) Protein, Total 6.6 6.4 - 8.2 gm/dL 04/20/2023 11:41 AM EDT [facility] Albumin 3.1(L) 3.4 - 5.0 g/dL 04/20/2023 11:41 AM EDT [facility] Total Bilirubin 0.6 0.2 - 1.3 mg/dL 04/20/2023 11:41 AM EDT [facility] Bilirubin, Direct 0.1 0.0 - 0.2 mg/dL 04/20/2023 11:41 AM T [facility] Alkaline Phosphatase 52 27 - 136 U/L 04/20/2023 11:41 AM EDT [facility] Globulin 3.5 1.5 - 4.5 g/dL 04/20/2023 11:41 AM EDT [facility] A/G Ratio 0.9(L) 1.1 - 2.5 04/20/2023 11:41 AM EDT [facility] AST 15 5 - 37 U/L 04/20/2023 11:41 AM EDT [facility] Comment:[facility] has become aware of sulfasalazine and sulfapyridine [...] prior to administration of the drug. ALT 22 12 - 78 U/L 04/20/2023 11:41 AM EDT [facility] Comment:[facility] has become aware of sulfasalazine and sulfapyridine [...] VENOUS STRUCTURE / Unknown Venipuncture / Unknown 04/20/2023 10:37 AM EDT 04/20/2023 10:42 AM EDT us Caleb Pacheco MD LAB BLOOD ORDERABLES Final Res ult [facility] [address] [place] [address], [facility] [phone] * (ABNORMAL) Basic Metabolic Panel (04/20/2023 10:37 AM EDT) Sodium 145 136 - 146 meq/L 04/20/2023 11:35 AM EDT [facility] Potassium 3.4(L) 3.5 - 5.1 meq/L 04/20/2023 11:35 AM EDT [facility] Chloride 115(H) 102 - 112 meq/L 04/20/2023 11:35 AM EDT [facility] CO2 23 21 - 32 meq/L 04/20/2023 11:35 AM EDT [facility] Anion Gap 10 9 - 20 04/20/2023 11:35 AM EDT [facility] BUN 10 7 - 22 mg/dL 04/20/2023 11:35 AM EDT [facility] Creatinine 1.00 0.55 - 1.02 mg/dL 04/20/2023 11:35 AM EDT [facility] BUN/Creatinine 10 8 - 20 04/20/2023 11:35 AM EDT [facility] Glucose 127(H) 74 - 106 mg/dL 04/20/2023 11:35 AM EDT [facility] Calcium 8.8 8.5 - 10.1 mg/dL 04/20/2023 11:35 AM EDT [facility] Osmolality Calc 289.3 11:35 AM EDT [facility] eGFR (mL/min/1.73m2) >60 >=60 mL/min/1.7 3m2 04/20/2023 11:35 AM EDT [facility] Comment:eGFR of <60 suggests chronic kidney disease if found over a 3 month period of time. eGFR <15 indicates renal failure. Blood Venipuncture / Unknown 04/20/2023 10:37 AM EDT 04/20/2023 10:42 AM EDT us Caleb Pacheco MD LAB BLOOD ORDERABLES Final Res ult [facility] [address] [place] [address], [facility] [phone] * (ABNORMAL) CBC with Automated Diff (04/20/2023 10:37 AM EDT) WBC 3.9(L) 4.5 - 12.5 K/??L 04/20/2023 10:54 AM EDT [facility] RBC 3.36(L) 4.00 - 5.25 M/??L 04/20/2023 10:54 AM EDT [facility] Hemoglobin 11.5(L) 12.0 - 16.0 GM/DL 04/20/2023 10:54 AM EDT [facility] Hematocrit 35.6(L) 36.0 - 46.0 % 04/20/2023 10:54 AM EDT [facility] MCV 106(H) 80 - 100 fL 04/20/2023 10:54 AM EDT [facility] MCH 34.2(H) 26.0 - 34.0 pg 04/20/2023 10:54 AM EDT [facility] MCHC 32.3 31.0 - 37.0 GM/DL 04/20/2023 10:54 AM EDT [facility] RDW 12.8 12.0 - 16.8 % 04/20/2023 10:54 AM EDT [facility] Platelets 146 140 - 440 K/CU MM 04/20/2023 10:54 AM EDT [facility] MPV 9.0 7.4 - 10.4 fL 04/20/2023 10:54 AM EDT [facility] % Neutros 53 45 - 80 % 04/20/2023 10:54 AM EDT [facility] % Lymphs 31 15 - 45 % 04/20/2023 10:54 AM EDT [facility] % Monos 12(H) 0 - 10 % 04/20/2023 10:54 AM EDT [facility] % Eos 3 0 - 5 % 04/20/2023 10:54 AM EDT [facility] % Baso 1 0 - 3 % 04/20/2023 10:54 AM EDT [facility] # Neutros 2.05 2.00 - 8.80 K/??L 04/20/2023 10:54 AM EDT [facility] # Lymphs 1.22 0.70 - 5.50 K/??L 04/20/2023 10:54 AM EDT [facility] # Monos 0.48 0.00 - 1.70 K/??L 04/20/2023 10:54 AM EDT [facility] # Eos 0.12 0.00 - 0.80 K/??L 04/20/2023 10:54 AM EDT [facility] # Baso 0.02 0.00 - 0.20 K/??L 04/20/2023 10:54 AM EDT [facility] Blood Venipuncture / Unknown 04/20/2023 10:37 AM EDT 04/20/2023 10:42 AM EDT Narrative [facility] - 04/20/2023 10:54 AM EDT When CBC w/ Auto Diff [...] Final Res ult [facility] [address] [place] [address], [facility] [phone] documented in this encounter Visit Diagnoses Diagnosis Multiple myeloma without remission (HCC) documented in this encounter
--- OUTSIDE RECORDS SUMMARY | 2024-08-03 17:02 | XMS_ITS | Encounter Summary ---
Author Organization [employer] [facility] [employer] Address [address] [place] [address] Care Team Providers Care Public Affairs Director Name Role Phone Unavailable Primary Care Provider Unavailabl e Reason for Visit * Reason Comments Medication Refill Encounter Details Date Type Department Care Team (Late st Contact Info) Description 03/22/2023 Refill [facility] [address] [facility] [address] [place] [address] Caleb Pacheco MD [address] [place] [address] Social History Tobacco Use Types [...]
--- OUTSIDE RECORDS SUMMARY | 2024-08-03 17:02 | XMS_ITS | Encounter Summary ---
Author Organization [employer] Address [address] [place] [address] Care Team Providers Care Informatics Analyst Name Role Phone Unavailable Primary Care Provider Unavailabl e Reason for Visit * Reason Comments Follow-up Encounter Details Date Type Department Care Team (Late st Contact Info) Description 04/06/2023 9:00 AM EDT Office Visit [facility] - [address] [place] [address] Raimundo Pacheco MD [address] [facility] [address] [place] [address] Multiple myeloma without remission (HCC) [...] Sign Reading Time Taken Comments Blood Pressure 168/90 04/06/2023 10:07 AM EDT Pulse 84 04/06/2023 10:07 AM EDT Temperature 36.5 ??C (97.7 ??F) 04/06/2023 1 0:07 AM EDT Respiratory Rate 20 04/06/2023 10:0 7 AM EDT Oxygen Saturation 99% 04/06/2023 10: 07 AM EDT Inhaled Oxygen Concentration - - Weight 125.9 kg (277 lb 9.6 oz) 023 10:07 AM EDT Height - - Body Mass Index 42.21 03/02/2023 11:36 AM EDT documented in this encounter Progress Notes * Raimundo Pacheco MD - 04/06/2023 9:00 AM EDT Chief Complaint: History of Present Illness: Francy Bailey is a 62 y.o. female who presents today for follow up of multiple myeloma. She has been on pomalidomide dexamethasone and Darzalex. She has had severe cytopenias we had to delay treatment often. She has had some lower back pain and has been medicating with oxycodone. She states that that is stable. She has had no new concerns or complaints. She has had no weight loss. No reactions to the Darzalex. No change in bowel habits. No neuropathic symptoms Past Medical History: Diagnosis Date ??? Asthma [...] 11/03/2022, Pomalyst dose reduced for severe neutropenia. Multiple myeloma without remission (HCC) 06/16/2022 Initial Diagnosis Multiple myeloma without remission (HCC) 11/03/2022 - Chemotherapy Treatment Summary Treatment goal Palliative Plan Name [facility] Multiple Myeloma - daratumumab (Darzalex) IV d1,8,15,22 fb D1,15 fb d1 + pomalidomide(Pomalyst) PO d1-21 every 28 days Status Active Start Date 11/03/2022 End Date 10/19/2023 (Planned) Provider Raimundo Pacheco MD Chemotherapy pomalidomide 4 mg Cap, 4 mg, Oral, Daily, 1 of 1 cycle, Start date: --, End date: -- pqmkmumzvim-juxalysuglszo-jtec (DARZALEX FASPRO) 1,800 mg-30,000 unit/15 mL subcutaneous injection 1,800 mg, 1,800 mg, Subcutaneous, Once, 5 of 12 cycles Administration: 1,800 mg (11/03/2022), 1,800 mg (11/10/2022), 1,800 mg (12/01/2022), 1,800 mg (12/15/2022), 1,800 mg (12/22/2022), 1,800 mg (01/12/2023), 1,800 mg (02/02/2023), 1,800 mg (02/16/2023), 1,800 mg(12/29/2022), 1,800 mg (01/20/2023), 1,800 mg (03/02/2023), 1,800 mg (03/16/2023), 1,800 mg (04/06/2023) Allergies: Ampicillin, Codeine, Indomethacin, Morphine, and Penicillin [...] systems reviewed and are negative. Vitals: Vitals: 04/06/23 1007 BP: (!) 168/90 Pulse: 84 Resp: 20 Temp: 97.7 ??F (36.5 ??C) SpO2: 99% Weight: 125.9 kg (277 lb 9.6 oz) Physical Exam: Physical Exam Vitals reviewed. Constitutional: Appearance: Normal appearance. HENT: Head: Normocephalic and atraumatic. Mouth/Throat: Mouth: Mucous membranes are moist. Eyes: Extraocular Movements: Extraocular movements intact. Pupils: Pupils are equal, round, and reactive to light. Cardiovascular: Rate and Rhythm: Normal rate and regular rhythm. Pulmonary: Effort: Pulmonary effort is normal. Breath sounds: Normal breath sounds. Comments: No dullness to percussion no pain in the ribs Abdominal: General: Abdomen is flat. Bowel sounds are normal. Palpations: Abdomen is soft. Comments: No hepatomegaly noted in the right upper quadrant of the abdomen on deep inspiration Musculoskeletal: General: Normal range of motion. Cervical back: Normal range of motion and neck supple. Neurological: General: No focal deficit present. Mental Status: She is alert. Relevant Results: Lab Patient Walk-In on 04/06/2023 Component Date Value Ref Range Status ??? WBC 04/06/2023 2.8 (L) 4.5 - 12.5 K/??L Final ??? RBC 04/06/2023 3.47 (L) 4.00 - 5.25 M/??L Final ??? Hemoglobin 04/06/2023 11.8 (L) 12.0 - 16.0 GM/DL Final ??? Hematocrit 04/06/2023 37.0 36.0 - 46.0 % Final ??? MCV 04/06/2023 107 (H) 80 - 100 fL Final ??? MCH 04/06/2023 34.0 26.0 - 34.0 pg Final ??? MCHC 04/06/2023 31.9 31.0 - 37.0 GM/DL Final ??? RDW 04/06/2023 13.3 12.0 - 16.8 % Final ??? Platelets 04/06/2023 165 140 - 440 K/CU MM Final ??? MPV 04/06/2023 9.7 7.4 - 10.4 fL Final ??? % Neutros 04/06/2023 38 (L) 45 - 80 % Final ??? % Lymphs 04/06/2023 47 (H) 15 - 45 % Final ??? % Monos 04/06/2023 10 0 - 10 % Final ??? % Eos 04/06/2023 3 0 - 5 % Final ??? % Baso 04/06/2023 3 0 - 3 % Final ??? # Neutros 04/06/2023 1.05 (L) 2.00 - 8.80 K/??L Final ??? # Lymphs 04/06/2023 1.30 0.70 - 5.50 K/??L Final ??? # Monos 04/06/2023 0.27 0.00 - 1.70 K/??L Final ??? # Eos 04/06/2023 0.07 0.00 - 0.80 K/??L Final ??? # Baso 04/06/2023 0.08 0.00 - 0.20 K/??L Final ??? Sodium 04/06/2023 145 136 - 146 meq/L Final ??? Potassium 04/06/2023 3.7 3.5 - 5.1 meq/L Final ??? Chloride 04/06/2023 112 102 - 112 meq/L Final ??? CO2 04/06/2023 26 21 - 32 meq/L Final ??? Calcium 04/06/2023 8.9 8.5 - 10.1 mg/dL Final ??? Glucose 04/06/2023 98 74 - 106 mg/dL Final ??? BUN 04/06/2023 15 7 - 22 mg/dL Final ??? Creatinine 04/06/2023 1.00 0.55 - 1.02 mg/dL Final ??? BUN/Creatinine 04/06/2023 15 8 - 20 Final ??? Albumin 04/06/2023 3.0 (L) 3.4 - 5.0 g/dL Final ??? Alkaline Phosphatase 04/06/2023 49 27 - 136 U/L Final ??? ALT 04/06/2023 17 12 - 78 U/L Final ??? AST 04/06/2023 15 5 - 37 U/L Final ??? Total Bilirubin 04/06/2023 0.3 0.2 - 1.3 mg/dL Final ??? Protein, Total 04/06/2023 6.3 (L) 6.4 - 8.2 gm/dL Final ??? Anion Gap 04/06/2023 11 9 - 20 Final ??? A/G Ratio 04/06/2023 0.9 (L) 1.1 - 2.5 Final ??? Globulin 04/06/2023 3.3 1.5 - 4.5 g/dL Final ??? Osmolality Calc 04/06/2023 289.5 Final ? ? eGFR (mL/min/1.73m2) 04/06/2023 >60 >=60 mL/min/1.73m2 Final ESTIMATED GFR IS NOT ACCURATE CREATININE CLEARANCE IN PREDICTING GLOMERULAR FILTRATION RATE. ESTIMATED GFR IS NOT APPLICABLE FOR DIALYSIS PATIENTS. Office Visit on 03/30/2023 Component Date Value Ref Range Status ??? [place] Qnt Free Light Chains 03/30/2023 9.90 3.30 - 19.40 mg/L Final INTERPRETIVE INFORMATION: [place] Qnt Free Light Chains Undetected antigen excess is a rare event but cannot be excluded. Free light chain results should always be interpreted in conjunction with other clinical and laboratory findings. ??? Lambda Qnt Free Light Chains 03/30/2023 14.44 5.71 - 26.30 mg/L Final INTERPRETIVE INFORMATION: Lambda Qnt Free Light Chains Undetected antigen excess is a rare event but cannot be excluded. Free light chain results should always be interpreted in conjunction with other clinical and laboratory findings. ??? [place]/Lambda Free Light Chain Ratio 03/30/2023 0.69 0.26 - 1.65 Final Performed By: [facility] [address] [place] [address] Global Risk Management Director: Parker Rangel MD, PhD ??? Total Protein, Serum 03/30/2023 5.9 (L) 6.3 - 8.2 g/dL Final ??? Albumin 03/30/2023 3.37 (L) 3.75 - 5.01 g/dL Final ??? Alpha 1 Globulin 03/30/2023 0.27 0.19 - 0.46 g/dL Final ??? Alpha 2 Globulin 03/30/2023 0.78 0.48 - 1.05 g/dL Final ??? Beta Globulin 03/30/2023 1.13 (H) 0.48 - 1.10 g/dL Final ??? Gamma 03/30/2023 0.34 (L) 0.62 - 1.51 g/dL Final ??? Immunofixation Reflex 03/30/2023 RALPH Done Final ??? Monoclonal Protein 03/30/2023 0.82 g/dL Final ??? SPEP/RALPH Interpretation 03/30/2023 See Note Final Monoclonal spike in the [...] an additional faint band in IgG kappa. ??? EER Serum Protein Electrophoresis * 03/30/2023 See Note Final Authorized individuals can access the [facility] Enhanced Report using the following link: [email or web address] Performed By: [facility] [address] [place] [address] Global Risk Management Director: Parker Rangel MD, PhD ??? Immunoglobulin G 03/30/2023 344 (L) 768 - 1632 mg/dL Final REFERENCE INTERVAL: Immunoglobulin G Access complete set of age- and/or gender-specific reference intervals for this test in the [facility] Test Directory (Grivy). Performed By: [facility] [address] [place] [address] Global Risk Management Director: Parker Rangel MD, PhD ??? Immunoglobulin M 03/30/2023 19 (L) 35 - 263 mg/dL Final REFERENCE INTERVAL: Immunoglobulin M Access complete set of age- and/or gender-specific reference intervals for this test in the [email or web address] Test Directory (Grivy). Performed By: [facility] [address] [place] [address] Global Risk Management Director: Parker Rangel MD, PhD ??? Immunoglobulin A 03/30/2023 472 (H) 68 - 408 mg/dL Final REFERENCE INTERVAL: Immunoglobulin A Access complete set of age- and/or gender-specific reference intervals for this test in the [email or web address] Test Directory (Grivy). Performed By: [place] [address] Global Risk Management Director: Parker Rangel MD, PhD ??? Immunofix Electrophoresis Bill 03/30/2023 Billed Final Performed By: [facility] [address] [place] [address] Global Risk Management Director: Parker Rangel MD, PhD Lab Patient Walk-In on 03/30/2023 Component Date Value Ref Range Status ??? WBC 03/30/2023 3.0 (L) 4.5 - 12.5 K/??L Final ??? RBC 03/30/2023 3.30 (L) 4.00 - 5.25 M/??L Final ??? Hemoglobin 03/30/2023 11.2 (L) 12.0 - 16.0 GM/DL Final ??? Hematocrit 03/30/2023 35.1 (L) 36.0 - 46.0 % Final ??? MCV 03/30/2023 106 (H) 80 - 100 fL Final ??? MCH 03/30/2023 33.9 26.0 - 34.0 pg Final ??? MCHC 03/30/2023 31.9 31.0 - 37.0 GM/DL Final ??? RDW 03/30/2023 13.2 12.0 - 16.8 % Final ??? Platelets 03/30/2023 152 140 - 440 K/CU MM Final ??? MPV 03/30/2023 9.6 7.4 - 10.4 fL Final ??? % Neutros 03/30/2023 26 (L) 45 - 80 % Final ??? % Lymphs 03/30/2023 52 (H) 15 - 45 % Final ??? % Monos 03/30/2023 15 (H) 0 - 10 % Final ??? % Eos 03/30/2023 4 0 - 5 % Final ??? % Baso 03/30/2023 3 0 - 3 % Final ??? # Neutros 03/30/2023 0.77 (L) 2.00 - 8.80 K/??L Final ??? # Lymphs 03/30/2023 1.55 0.70 - 5.50 K/??L Final ??? # Monos 03/30/2023 0.46 0.00 - 1.70 K/??L Final ??? # Eos 03/30/2023 0.12 0.00 - 0.80 K/??L Final ??? # Baso 03/30/2023 0.08 0.00 - 0.20 K/??L Final ??? Sodium 03/30/2023 143 136 - 146 meq/L Final ??? Potassium 03/30/2023 3.4 (L) 3.5 - 5.1 meq/L Final ??? Chloride 03/30/2023 111 102 - 112 meq/L Final ??? CO2 03/30/2023 26 21 - 32 meq/L Final ??? Anion Gap 03/30/2023 9 9 - 20 Final ??? BUN 03/30/2023 10 7 - 22 mg/dL Final ??? Creatinine 03/30/2023 0.86 0.55 - 1.02 mg/dL Final ??? BUN/Creatinine 03/30/2023 12 8 - 20 Final ??? Glucose 03/30/2023 82 74 - 106 mg/dL Final ??? Calcium 03/30/2023 8.6 8.5 - 10.1 mg/dL Final ??? Osmolality Calc 03/30/2023 283.1 Final ? ? eGFR (mL/min/1.73m2) 03/30/2023 >60 >=60 mL/min/1.73m2 Final eGFR of <60 suggests chronic kidney disease if found over a 3 month period of time. eGFR <15 indicates renal failure. ??? Protein, Total 03/30/2023 6.1 (L) 6.4 - 8.2 gm/dL Final ??? Albumin 03/30/2023 2.9 (L) 3.4 - 5.0 g/dL Final ??? Total Bilirubin 03/30/2023 0.3 0.2 - 1.3 mg/dL Final ??? Bilirubin, Direct 03/30/2023 0.1 0.0 - 0.2 mg/dL Final ??? Alkaline Phosphatase 03/30/2023 47 27 - 136 U/L Final ??? Globulin 03/30/2023 3.2 1.5 - 4.5 g/dL Final ??? A/G Ratio 03/30/2023 0.9 (L) 1.1 - 2.5 Final ??? AST 03/30/2023 14 5 - 37 U/L Final [employer] has become aware of sulfasalazine and [...] to administration of the drug. ??? ALT 03/30/2023 18 12 - 78 U/L Final [employer] has become aware of sulfasalazine and [...] occur prior to administration of the drug. No results found. Cancer Staging No matching staging information was found for the patient. Plan: Her ANC today is 1.3 and will be able to give her Darzalex 1800 mg subcutaneously premedicated withdexamethasone 20 and Zofran 8. I Jayne stop her pomalidomide since we have repetitive low white count. 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 She states that she is not interested in transplant possibly. She asked me about other treatment options or experimental therapy and I told her that she needs to talk to the people that [facility] to see if they have any protocols that she would fit under. She could have BCMA or CAR T therapy that I cannotoffer her under a protocol at the Psych[facility] if she is a good candidate. Signed: Electronically signed by RAIMUNDO PACHECO MD 04/06/23 2:05 PM EDT No primary care provider on file. documented in this encounter Plan of Treatment Not on file documented as of this encounter Visit Diagnoses Diagnosis Multiple myeloma without remission (HCC)- Primary documented in this encounter
--- OUTSIDE RECORDS SUMMARY | 2024-08-03 17:02 | XMS_ITS | Encounter Summary ---
Author Organization [employer] Address [address] [place] [address] Care Team Providers Care Safety Trainer Name Role Phone Unavailable Primary Care Provider Unavailabl e Encounter Details Date Type Department Care Team (Latest Contact Info) Description 05/18/2023 Travel Social History Tobacco Use Types Packs/Day [...]
--- OUTSIDE RECORDS SUMMARY | 2024-08-03 17:02 | XMS_ITS | Encounter Summary ---
Author Organization [employer] Address [address] [place] [address] Care Team Providers Care Game Designer/Creative Director Name Role Phone Unavailable Primary Care Provider Unavailabl e Reason for Visit * Reason Comments Follow-up Encounter Details Date Type Department Care Team (Late st Contact Info) Description 04/20/2023 11:15 AM EDT Office Visit [facility] - [address] [place] [address] Raimundo Pacheco MD [address] [facility] [address] [place] [address] Multiple myeloma without remission (HCC) [...] Sign Reading Time Taken Comments Blood Pressure 141/68 04/20/2023 11:01 AM EDT Pulse 81 04/20/2023 11:01 AM EDT Temperature 36.3 ??C (97.3 ??F) 04/20/2023 11:01 AM E DT Respiratory Rate 18 04/20/2023 11:01 AM EDT Oxygen Saturation 95% 04/20/2023 11:01 AM EDT Inhaled Oxygen Concentration - - Weight 125.2 kg (276 lb) 04/20/2023 11:01 AM EDT Height - - Body Mass Index 41.97 03/02/2023 11:36 AM EDT documented in this encounter Progress Notes * Raimundo Pacheco MD - 04/20/2023 11:15 AM EDT Chief Complaint: History of Present Illness: Francy Bailey is a 62 y.o. female who presents today for follow up of multiple myeloma. We stopped her pomalidomide and continue the Darzalex and steroids. She has no change in her bone pain. She has some lower back discomfort. She has had no side effects from the Darzalex no skin rash wheezing etc. she has no new complaints Past Medical History: Diagnosis Date [...] Treatment Summary Treatment goal Palliative Plan Name [facility] Multiple Myeloma - daratumumab (Darzalex) IV d1,8,15,22 fb D1,15 fb d1 + pomalidomide(Pomalyst) PO d1-21 every 28 days Status Active Start Date 11/03/2022 End Date 10/19/2023 (Planned) Provider Raimundo Pacheco MD Chemotherapy pomalidomide 4 mg Cap, 4 mg, Oral, Daily, 1 of 1 cycle, Start date: --, End date: -- vcybrsvvjbr-jlxdsaahqnppn-hukk (DARZALEX FASPRO) 1,800 mg-30,000 unit/15 mL subcutaneous injection 1,800 mg, 1,800 mg, Subcutaneous, Once, 5 of 12 cycles Administration: 1,800 mg (11/03/2022), 1,800 mg (11/10/2022), 1,800 mg (12/01/2022), 1,800 mg (12/15/2022), 1,800 mg (12/22/2022), 1,800 mg (01/12/2023), 1,800 mg (02/02/2023), 1,800 mg (02/16/2023), 1,800 mg(12/29/2022), 1,800 mg (01/20/2023), 1,800 mg (03/02/2023), 1,800 mg (03/16/2023), 1,800 mg (04/06/2023), 1,800 mg (04/20/2023) Allergies: Ampicillin, Codeine, Indomethacin, Morphine, and Penicillin [...] (four) hours as needed for up to 30 doses. Max Daily Amount: 60 mg 30 tablet 0 ??? pantoprazole (PROTONIX) 40 MG [...] systems reviewed and are negative. Vitals: Vitals: 04/20/23 1101 BP: (!) 141/68 Pulse: 81 Resp: 18 Temp: 97.3 ??F (36.3 ??C) SpO2: 95% Weight: 125.2 kg (276 lb) Physical Exam: Physical Exam Vitals reviewed. [...] flat. Palpations: Abdomen is soft. Comments: No organomegaly Musculoskeletal: General: Normal range of motion. Cervical back: Normal range of motion and neck supple. Neurological: General: No focal deficit present. Mental Status: She is alert. Relevant Results: Lab Patient Walk-In on 04/20/2023 Component Date Value Ref Range Status ??? WBC 04/20/2023 3.9 (L) 4.5 - 12.5 K/??L Final ??? RBC 04/20/2023 3.36 (L) 4.00 - 5.25 M/??L Final ??? Hemoglobin 04/20/2023 11.5 (L) 12.0 - 16.0 GM/DL Final ??? Hematocrit 04/20/2023 35.6 (L) 36.0 - 46.0 % Final ??? MCV 04/20/2023 106 (H) 80 - 100 fL Final ??? MCH 04/20/2023 34.2 (H) 26.0 - 34.0 pg Final ??? MCHC 04/20/2023 32.3 31.0 - 37.0 GM/DL Final ??? RDW 04/20/2023 12.8 12.0 - 16.8 % Final ??? Platelets 04/20/2023 146 140 - 440 K/CU MM Final ??? MPV 04/20/2023 9.0 7.4 - 10.4 fL Final ??? % Neutros 04/20/2023 53 45 - 80 % Final ??? % Lymphs 04/20/2023 31 15 - 45 % Final ??? % Monos 04/20/2023 12 (H) 0 - 10 % Final ??? % Eos 04/20/2023 3 0 - 5 % Final ??? % Baso 04/20/2023 1 0 - 3 % Final ??? # Neutros 04/20/2023 2.05 2.00 - 8.80 K/??L Final ??? # Lymphs 04/20/2023 1.22 0.70 - 5.50 K/??L Final ??? # Monos 04/20/2023 0.48 0.00 - 1.70 K/??L Final ??? # Eos 04/20/2023 0.12 0.00 - 0.80 K/??L Final ??? # Baso 04/20/2023 0.02 0.00 - 0.20 K/??L Final ??? Sodium 04/20/2023 145 136 - 146 meq/L Final ??? Potassium 04/20/2023 3.4 (L) 3.5 - 5.1 meq/L Final ??? Chloride 04/20/2023 115 (H) 102 - 112 meq/L Final ??? CO2 04/20/2023 23 21 - 32 meq/L Final ??? Anion Gap 04/20/2023 10 9 - 20 Final ??? BUN 04/20/2023 10 7 - 22 mg/dL Final ??? Creatinine 04/20/2023 1.00 0.55 - 1.02 mg/dL Final ??? BUN/Creatinine 04/20/2023 10 8 - 20 Final ??? Glucose 04/20/2023 127 (H) 74 - 106 mg/dL Final ??? Calcium 04/20/2023 8.8 8.5 - 10.1 mg/dL Final ??? Osmolality Calc 04/20/2023 289.3 Final ? ? eGFR (mL/min/1.73m2) 04/20/2023 >60 >=60 mL/min/1.73m2 Final eGFR of <60 suggests chronic kidney disease if found over a 3 month period of time. eGFR <15 indicates renal failure. ??? Protein, Total 04/20/2023 6.6 6.4 - 8.2 gm/dL Final ??? Albumin 04/20/2023 3.1 (L) 3.4 - 5.0 g/dL Final ??? Total Bilirubin 04/20/2023 0.6 0.2 - 1.3 mg/dL Final ??? Bilirubin, Direct 04/20/2023 0.1 0.0 - 0.2 mg/dL Final ??? Alkaline Phosphatase 04/20/2023 52 27 - 136 U/L Final ??? Globulin 04/20/2023 3.5 1.5 - 4.5 g/dL Final ??? A/G Ratio 04/20/2023 0.9 (L) 1.1 - 2.5 Final ??? AST 04/20/2023 15 5 - 37 U/L Final [employer] has become aware of sulfasalazine and sulfapyridine [...] to administration of the drug. ??? ALT 04/20/2023 22 12 - 78 U/L Final [employer] has become aware of sulfasalazine and sulfapyridine [...] occur prior to administration of the drug. Lab Patient Walk-In on 04/06/2023 Component Date [...] was found for the patient. Plan: Her white count is better. She will get Darzalex today 1800 mg subcutaneously premedicated with dexamethasone 20 and Zofran 8 mg orally. She return in 2 weeks for the same and in a month to seeme. I reviewed her past laboratory studies and her hemoglobin is stable her white counts improved and her creatinine is normal. Her immunoelectrophoresis is stable with M spike of 0.8 g and her free light chain ratio is of no help. I discussed this all with her and answered her questions Signed: Electronically signed by RAIMUNDO PACHECO MD 04/20/23 1:53 PM EDT No primary care provider on file. documented in this encounter Plan of Treatment Not on file documented as of this encounter Visit Diagnoses Diagnosis Multiple myeloma without remission (HCC)- Primary documented in this encounter
--- OUTSIDE RECORDS SUMMARY | 2024-08-03 17:02 | XMS_ITS | Encounter Summary ---
Author Organization [employer] Address [address] [place] [address] Care Team Providers Care Insurance Agent Name Role Phone Unavailable Primary Care Provider Unavailabl e Encounter Details Date Type Department Care Team (Late st Contact Info) Description 05/04/2023 Orders Only [facility] - [facility] [address] [place] [address] Caleb Pacheco MD [address] [facility] [address] [place] [address] Social History Tobacco Use Types [...]
--- OUTSIDE RECORDS SUMMARY | 2024-08-03 17:02 | XMS_ITS | Encounter Summary ---
Author Organization [employer] [facility] Address [address] [place] [address] Care Team Providers Care Button Broacher Name Role Phone Unavailable Primary Care Provider Unavailabl e Reason for Visit * Reason Comments Follow-up 4 wk f/u appt with i nfusion Multiple Myeloma Encounter Details Date Type Department Care Team (Late st Contact Info) Description 05/18/2023 11:15 AM EDT Office Visit [facility] - [address] [place] [address] Raimundo Pacheco MD [address] [facility] [address] [place] [address] Multiple myeloma without remission (HCC) [...] Sign Reading Time Taken Comments Blood Pressure 149/88 05/18/2023 11:25 AM EDT Pulse 77 05/18/2023 11:25 AM EDT Temperature 36.7 ??C (98.1 ??F) 05/18/2023 1 1:25 AM EDT Respiratory Rate 18 05/18/2023 11:2 5 AM EDT Oxygen Saturation 96% 05/18/2023 11: 25 AM EDT Inhaled Oxygen Concentration - - Weight 127.1 kg (280 lb 4.8 oz) 023 11:25 AM EDT Height 172.7 cm (5' 7.99 ) 05/18/2023 1 1:25 AM EDT Body Mass Index 42.63 05/18/2023 11:25 AM EDT documented in this encounter Progress Notes * Raimundo Pacheco MD - 05/18/2023 11:15 AM EDT Chief Complaint: History of Present Illness: Francy Bailey is a 62 y.o. female who presents today for follow up of multiple myeloma. She is on Darzalex and dexamethasone. When she was on pomalidomide she had severe pancytopenia and could not tolerate it. As noted she has had stability in her M spike. She complains of increasing bonepain today especially in the lower back and right thigh. Past Medical History: Diagnosis Date ??? Asthma [...] Treatment Summary Treatment goal Palliative Plan Name [facility] Multiple Myeloma - daratumumab (Darzalex) IV d1,8,15,22 fb D1,15 fb d1 + pomalidomide(Pomalyst) PO d1-21 every 28 days Status Active Start Date 11/03/2022 End Date 10/19/2023 (Planned) Provider Raimundo Pacheco MD Chemotherapy pomalidomide 4 mg Cap, 4 mg, Oral, Daily, 1 of 1 cycle, Start date: --, End date: -- evtkfppyfmt-gljqoxdgbbiah-pgls (DARZALEX FASPRO) 1,800 mg-30,000 unit/15 mL subcutaneous injection 1,800 mg, 1,800 mg, Subcutaneous, Once, 6 of 12 cycles Administration: 1,800 mg (11/03/2022), 1,800 mg (11/10/2022), 1,800 mg (12/01/2022), 1,800 mg (12/15/2022), 1,800 mg (12/22/2022), 1,800 mg (01/12/2023), 1,800 mg (02/02/2023), 1,800 mg (02/16/2023), 1,800 mg(12/29/2022), 1,800 mg (01/20/2023), 1,800 mg (03/02/2023), 1,800 mg (03/16/2023), 1,800 mg (04/06/2023), 1,800 mg (04/20/2023), 1,800 mg (05/04/2023), 1,800 mg (05/18/2023) Allergies: Ampicillin, Codeine, Indomethacin, Morphine, and Penicillin [...] Daily Amount: 60 mg 30 tablet 0 No current facility-administered medications on file prior to visit. Review of Systems: Review of Systems All other systems reviewed and are negative. Vitals: Vitals: 05/18/23 1125 BP: (!) 149/88 Pulse: 77 Resp: 18 Temp: 98.1 ??F (36.7 ??C) SpO2: 96% Weight: 127.1 kg (280 lb 4.8 oz) Height: 1.727 m (5' 7.99 ) Physical Exam: Physical Exam Vitals reviewed. Constitutional: Appearance: Normal appearance. HENT: Head: Normocephalic and atraumatic. Mouth/Throat: Mouth: Mucous membranes are moist. Eyes: Extraocular Movements: Extraocular movements intact. Pupils: Pupils are equal, round, and reactive to light. Cardiovascular: Rate and Rhythm: Normal rate and regular rhythm. Pulses: Normal pulses. Pulmonary: Effort: Pulmonary effort is normal. Breath sounds: Normal breath sounds. Abdominal: General: Abdomen is flat. Bowel sounds are normal. Palpations: Abdomen is soft. Musculoskeletal: General: Normal range of motion. Cervical back: Normal range of motion and neck supple. Comments: Discomfort in the lower back. No obvious bony pain on palpation other sites Neurological: General: No focal deficit present. Mental Status: She is alert. Relevant Results: Lab Patient Walk-In on 05/18/2023 Component Date Value Ref Range Status ??? WBC 05/18/2023 4.3 (L) 4.5 - 12.5 K/??L Final ??? RBC 05/18/2023 3.48 (L) 4.00 - 5.25 M/??L Final ??? Hemoglobin 05/18/2023 11.8 (L) 12.0 - 16.0 GM/DL Final ??? Hematocrit 05/18/2023 36.7 36.0 - 46.0 % Final ??? MCV 05/18/2023 106 (H) 80 - 100 fL Final ??? MCH 05/18/2023 33.9 26.0 - 34.0 pg Final ??? MCHC 05/18/2023 32.2 31.0 - 37.0 GM/DL Final ??? RDW 05/18/2023 12.7 12.0 - 16.8 % Final ??? Platelets 05/18/2023 147 140 - 440 K/CU MM Final ??? MPV 05/18/2023 9.4 7.4 - 10.4 fL Final ??? % Neutros 05/18/2023 52 45 - 80 % Final ??? % Lymphs 05/18/2023 34 15 - 45 % Final ??? % Monos 05/18/2023 11 (H) 0 - 10 % Final ??? % Eos 05/18/2023 3 0 - 5 % Final ??? % Baso 05/18/2023 0 0 - 3 % Final ??? # Neutros 05/18/2023 2.21 2.00 - 8.80 K/??L Final ??? # Lymphs 05/18/2023 1.45 0.70 - 5.50 K/??L Final ??? # Monos 05/18/2023 0.48 0.00 - 1.70 K/??L Final ??? # Eos 05/18/2023 0.11 0.00 - 0.80 K/??L Final ??? # Baso 05/18/2023 0.01 0.00 - 0.20 K/??L Final ??? Sodium 05/18/2023 142 136 - 146 meq/L Final ??? Potassium 05/18/2023 3.7 3.5 - 5.1 meq/L Final ??? Chloride 05/18/2023 111 102 - 112 meq/L Final ??? CO2 05/18/2023 27 21 - 32 meq/L Final ??? Anion Gap 05/18/2023 8 (L) 9 - 20 Final ??? BUN 05/18/2023 11 7 - 22 mg/dL Final ??? Creatinine 05/18/2023 0.94 0.55 - 1.02 mg/dL Final ??? BUN/Creatinine 05/18/2023 12 8 - 20 Final ??? Glucose 05/18/2023 102 74 - 106 mg/dL Final ??? Calcium 05/18/2023 9.2 8.5 - 10.1 mg/dL Final ??? Osmolality Calc 05/18/2023 282.7 Final ? ? eGFR (mL/min/1.73m2) 05/18/2023 >60 >=60 mL/min/1.73m2 Final eGFR of <60 suggests chronic kidney disease if found over a 3 month period of time. eGFR <15 indicates renal failure. ??? Protein, Total 05/18/2023 6.4 6.4 - 8.2 gm/dL Final ??? Albumin 05/18/2023 3.0 (L) 3.4 - 5.0 g/dL Final ??? Total Bilirubin 05/18/2023 0.5 0.2 - 1.3 mg/dL Final ? ? Bilirubin, Direct 05/18/2023 <0.1 0.0 - 0.2 mg/dL Final ??? Alkaline Phosphatase 05/18/2023 52 27 - 136 U/L Final ??? Globulin 05/18/2023 3.4 1.5 - 4.5 g/dL Final ??? A/G Ratio 05/18/2023 0.9 (L) 1.1 - 2.5 Final ??? AST 05/18/2023 14 5 - 37 U/L Final [facility] has become aware of sulfasalazine and sulfapyridine [...] to administration of the drug. ??? ALT 05/18/2023 21 12 - 78 U/L Final [facility] has become aware of sulfasalazine and sulfapyridine [...] occur prior to administration of the drug. Infusion on 05/04/2023 Component Date Value Ref Range Status ??? Sodium 05/04/2023 144 136 - 146 meq/L Final ??? Potassium 05/04/2023 3.8 3.5 - 5.1 meq/L Final ??? Chloride 05/04/2023 111 102 - 112 meq/L Final ??? CO2 05/04/2023 27 21 - 32 meq/L Final ??? Calcium 05/04/2023 8.7 8.5 - 10.1 mg/dL Final ??? Glucose 05/04/2023 105 74 - 106 mg/dL Final ??? BUN 05/04/2023 13 7 - 22 mg/dL Final ??? Creatinine 05/04/2023 0.98 0.55 - 1.02 mg/dL Final ??? BUN/Creatinine 05/04/2023 13 8 - 20 Final ??? Albumin 05/04/2023 2.8 (L) 3.4 - 5.0 g/dL Final ??? Alkaline Phosphatase 05/04/2023 51 27 - 136 U/L Final ??? ALT 05/04/2023 22 12 - 78 U/L Final ??? AST 05/04/2023 14 5 - 37 U/L Final ??? Total Bilirubin 05/04/2023 0.3 0.2 - 1.3 mg/dL Final ??? Protein, Total 05/04/2023 6.2 (L) 6.4 - 8.2 gm/dL Final ??? Anion Gap 05/04/2023 10 9 - 20 Final ??? A/G Ratio 05/04/2023 0.8 (L) 1.1 - 2.5 Final ??? Globulin 05/04/2023 3.4 1.5 - 4.5 g/dL Final ??? Osmolality Calc 05/04/2023 287.3 Final ? ? eGFR (mL/min/1.73m2) 05/04/2023 >60 >=60 mL/min/1.73m2 Final ESTIMATED GFR IS NOT ACCURATE CREATININE CLEARANCE IN PREDICTING GLOMERULAR FILTRATION RATE. ESTIMATED GFR IS NOT APPLICABLE FOR DIALYSIS PATIENTS. ??? WBC 05/04/2023 3.6 (L) 4.5 - 12.5 K/??L Final ??? RBC 05/04/2023 3.50 (L) 4.00 - 5.25 M/??L Final ??? Hemoglobin 05/04/2023 11.7 (L) 12.0 - 16.0 GM/DL Final ??? Hematocrit 05/04/2023 37.0 36.0 - 46.0 % Final ??? MCV 05/04/2023 106 (H) 80 - 100 fL Final ??? MCH 05/04/2023 33.4 26.0 - 34.0 pg Final ??? MCHC 05/04/2023 31.6 31.0 - 37.0 GM/DL Final ??? RDW 05/04/2023 12.8 12.0 - 16.8 % Final ??? Platelets 05/04/2023 130 (L) 140 - 440 K/CU MM Final ??? MPV 05/04/2023 9.6 7.4 - 10.4 fL Final ??? % Neutros 05/04/2023 44 (L) 45 - 80 % Final ??? % Lymphs 05/04/2023 42 15 - 45 % Final ??? % Monos 05/04/2023 12 (H) 0 - 10 % Final ??? % Eos 05/04/2023 2 0 - 5 % Final ??? % Baso 05/04/2023 0 0 - 3 % Final ??? # Neutros 05/04/2023 1.58 (L) 2.00 - 8.80 K/??L Final ??? # Lymphs 05/04/2023 1.48 0.70 - 5.50 K/??L Final ??? # Monos 05/04/2023 0.43 0.00 - 1.70 K/??L Final ??? # Eos 05/04/2023 0.07 0.00 - 0.80 K/??L Final ??? # Baso 05/04/2023 0.01 0.00 - 0.20 K/??L Final No results found. Cancer Staging No matching staging information was found for the patient. Plan: Her immunoelectrophoresis is pending. At this point she will get Darzalex 1800 mg subcutaneously and will be premedicated with dexamethasone 20 and Zofran 8 orally. She returns every 2 weeks for the Darzalex. I will see her in 4 weeks. She is about intermediate through the every other week treatment of the Darzalex because there was significant delay while she was on pomalidomide. We will have her continue present treatment as long as her M spike is stable. She is not interested in transplant at this point. I have answered her questions Signed: Electronically signed by RAIMUNDO PACHECO MD 05/18/23 6:51 PM EDT No primary care provider on file. documented in this encounter Plan of Treatment Not on file documented as of this encounter Visit Diagnoses Diagnosis Multiple myeloma without remission (HCC) documented in this encounter
--- OUTSIDE RECORDS SUMMARY | 2024-08-03 17:02 | XMS_ITS | Encounter Summary ---
Author Organization [employer] Address [address] [place] [address] Care Team Providers Care Environmental Health Technologist Name Role Phone Unavailable Primary Care Provider Unavailabl e Encounter Details Date Type Department Care Team (Latest Contact Info) Description 03/30/2023 8:45 AM EDT Lab Patient Walk-In [facility] - [address] [place] [address] Caleb Pacheco MD [address] [facility] [address] [place] [address] Multiple myeloma without remission (HCC) [...] Diagnosis Comments CBC W/ AUTO DIFF STAT 03/30/2023 8:58 AM EDT Multiple myeloma without remission (HCC) HEPATIC FUNCTION PANEL Routine 03/30/2023 8:58 AM EDT Multiple myeloma without remission (HCC) BASIC METABOLIC PANEL STAT 03/30/2023 8:58 AM EDT Multiple myeloma without remission (HCC) documented in this encounter Results * (ABNORMAL) Hepatic function panel (03/30/2023 8:58 AM EDT) [facility] Protein, Total 6.1(L) 6.4 - 8.2 gm/dL 03/30/2023 10:43 AM [facility] Albumin 2.9(L) 3.4 - 5.0 g/dL 03/30/2023 10:43 AM [facility] Total Bilirubin 0.3 0.2 - 1.3 mg/dL 03/30/2023 10:43 AM [facility] Bilirubin, Direct 0.1 0.0 - 0.2 mg/dL 03/30/2023 10:43 AM [facility] Alkaline Phosphatase 47 27 - 136 U/L 03/30/2023 10:43 AM [facility] Globulin 3.2 1.5 - 4.5 g/dL 03/30/2023 10:43 AM [facility] A/G Ratio 0.9(L) 1.1 - 2.5 03/30/2023 10:43 AM [facility] AST 14 5 - 37 U/L 03/30/2023 10:43 AM [facility] Comment:[facility] has become aware of sulfasalazine and sulfapyridine [...] prior to administration of the drug. ALT 18 12 - 78 U/L 03/30/2023 10:43 AM [facility] Comment:[facility] has become aware of sulfasalazine and sulfapyridine [...] to administration of the drug. Blood ENTIRE LEFT UPPER ARM / Unknown Venipuncture / Unknown 03/30/2023 8:58 AM EDT 03/30/2023 9:02 AM EDT us Caleb Pacheco MD LAB BLOOD ORDERABLES Final Res ult [facility] [address] [phone] * (ABNORMAL) Basic Metabolic Panel (03/30/2023 8:58 AM EDT) Sodium 143 136 - 146 meq/L 03/30/2023 10:42 AM EDT [facility] Potassium 3.4(L) 3.5 - 5.1 meq/L 03/30/2023 10:42 AM T [facility] Chloride 111 102 - 112 meq/L 03/30/2023 10:42 AM EDT [facility] CO2 26 21 - 32 meq/L 03/30/2023 10:42 AM EDT [facility] Anion Gap 9 9 - 20 03/30/2023 10:42 AM EDT [facility] BUN 10 7 - 22 mg/dL 03/30/2023 10:42 AM EDT [facility] Creatinine 0.86 0.55 - 1.02 mg/dL 03/30/2023 10:42 AM [facility] BUN/Creatinine 12 8 - 20 03/30/2023 10:42 [facility] Glucose 82 74 - 106 mg/dL 03/30/2023 10:42 AM [facility] Calcium 8.6 8.5 - 10.1 mg/dL 03/30/2023 10:42 AM EDT [facility] Osmolality Calc 283.1 10:42 AM EDT [facility] eGFR (mL/min/1.73m2) >60 >=60 mL/min/1.7 3m2 03/30/2023 10:42 AM EDT [facility] Comment:eGFR of <60 suggests chronic kidney disease if found over a 3 month period of time. eGFR <15 indicates renal failure. Blood ENTIRE LEFT UPPER ARM / Unknown Venipuncture / Unknown 03/30/2023 8:58 AM EDT 03/30/2023 9:02 AM EDT us Caleb Pacheco MD LAB BLOOD ORDERABLES Final Res ult Performing Organization Address City/State/[facility] Co de Phone Number [facility] [address] [place] [address], [facility] [phone] * (ABNORMAL) CBC with Automated Diff (03/30/2023 8:58 AM EDT) WBC 3.0(L) 4.5 - 12.5 K/??L 03/30/2023 9:05 AM EDT [facility] RBC 3.30(L) 4.00 - 5.25 M/??L 03/30/2023 9:05 AM EDT [facility] Hemoglobin 11.2(L) 12.0 - 16.0 GM/DL 03/30/2023 9:05 AM EDT [facility] Hematocrit 35.1(L) 36.0 - 46.0 % 03/30/2023 9:05 AM EDT [facility] MCV 106(H) 80 - 100 fL 03/30/2023 9:05 AM EDT [facility] MCH 33.9 26.0 - 34.0 pg 03/30/2023 9:05 AM EDT [facility] MCHC 31.9 31.0 - 37.0 GM/DL 03/30/2023 9:05 AM EDT [facility] RDW 13.2 12.0 - 16.8 % 03/30/2023 9:05 AM EDT [facility] Platelets 152 140 - 440 K/CU MM 03/30/2023 9:05 AM EDT [facility] MPV 9.6 7.4 - 10.4 fL 03/30/2023 9:05 AM EDT [facility] % Neutros 26(L) 45 - 80 % 03/30/2023 9:05 AM EDT [facility] % Lymphs 52(H) 15 - 45 % 03/30/2023 9:05 AM EDT [facility] % Monos 15(H) 0 - 10 % 03/30/2023 9:05 AM EDT [facility] % Eos 4 0 - 5 % 03/30/2023 9:05 AM EDT [facility] % Baso 3 0 - 3 % 03/30/2023 9:05 AM EDT [facility] # Neutros 0.77(L) 2.00 - 8.80 K/??L 03/30/2023 9:05 AM EDT [facility] # Lymphs 1.55 0.70 - 5.50 K/??L 03/30/2023 9:05 AM EDT [facility] # Monos 0.46 0.00 - 1.70 K/??L 03/30/2023 9:05 AM EDT [facility] # Eos 0.12 0.00 - 0.80 K/??L 03/30/2023 9:05 AM EDT [facility] # Baso 0.08 0.00 - 0.20 K/??L 03/30/2023 9:05 AM EDT [facility] Blood ENTIRE LEFT UPPER ARM / Unknown Venipuncture / Unknown 03/30/2023 8:58 AM EDT 03/30/2023 9:02 AM EDT Narrative [facility] - 03/30/2023 9:05 AM EDT When CBC w/ Auto Diff [...] ORDERABLES Final Res ult [facility] [address] [place] [address], [facility] [phone] documented in this encounter Visit Diagnoses Diagnosis Multiple myeloma without remission (HCC) documented in this encounter
--- OUTSIDE RECORDS SUMMARY | 2024-08-03 17:02 | XMS_ITS | Encounter Summary ---
Author Organization [email or web address] [facility] [employer] Address [address] [place] [address] Care Team Providers Care Dye Box Operator Name Role Phone Unavailable Primary Care Provider Unavailabl e Reason for Visit * Reason Comments Medication Refill Encounter Details Date Type Department Care Team (Late st Contact Info) Description 03/24/2023 Refill [facility] - [address] [place] [address] Caleb Pacheco MD [address] [facility] [address] [place] [address] Social History Tobacco Use Types [...] encounter Miscellaneous Notes * Telephone Encounter - Ava Cruz - 03/24/2023 2:52 PM EDT Refill request received. Have faxed back to [id number] * Telephone Encounter - Nicki Thurston RN - 03/24/2023 2:47 PM EDT Madhuri, received this request for Pomalyst refill. Are you working on this? documented in this encounter Plan of Treatment Not on file documented as of this encounter Visit Diagnoses Not on filedocumented in this encounter
--- OUTSIDE RECORDS SUMMARY | 2024-08-03 17:02 | XMS_ITS | Encounter Summary ---
Author Organization [employer] Address [address] [place] [address] Care Team Providers Care Talent Acquisition Lead Name Role Phone Unavailable Primary Care Provider Unavailabl e Encounter Details Date Type Department Care Team (Latest Contact Info) Description 06/01/2023 Travel Social History Tobacco Use Types Packs/Day [...]
--- OUTSIDE RECORDS SUMMARY | 2024-08-03 17:02 | XMS_ITS | Encounter Summary ---
Author Organization [employer] Address [address] [place] [address] Care Team Providers Care Balance Staff Staker Name Role Phone Unavailable Primary Care Provider Unavailabl e Reason for Visit * Reason Comments Follow-up Encounter Details Date Type Department Care Team (Late st Contact Info) Description 03/30/2023 9:00 AM EDT Office Visit [facility] - [address] [place] [address] Raimundo Pacheco MD [address] [facility] [address] [place] [address] Multiple myeloma without remission (HCC) [...] Sign Reading Time Taken Comments Blood Pressure 133/72 03/30/2023 9:00 AM EDT Pulse 75 03/30/2023 9:00 AM EDT Temperature - - Respiratory Rate 20 03/30/2023 9:00 AM EDT Oxygen Saturation 94% 03/30/2023 9:00 AM EDT Inhaled Oxygen Concentration - - Weight - - Height - - Body Mass Index - - documented in this encounter Progress Notes * Raimundo Pacheco MD - 03/30/2023 9:00 AM EDT Chief Complaint: History of Present Illness: Francy Bailey is a 62 y.o. female who presents today for follow up of recurrent multiple myeloma. She is on darolutamide pomalidomide and dexamethasone. We had to delay her treatment because of significant cytopenias. She has had a reduction in her M spike. She complains of lower back pain. She is on oxycodone for this and it seems to be effective. She may take it twice a day. She has really no other additional concerns or problems today. Past [...] recurrence with elevation of her M spike 7/22. L. Darzalex and pomalidomide initiated 11/03/2022, Pomalyst dose reduced for severe neutropenia. Multiple myeloma without remission (HCC) 06/16/2022 Initial Diagnosis Multiple myeloma without remission (HCC) 11/03/2022 - Chemotherapy Treatment Summary Treatment goal Palliative Plan Name [facility] Multiple Myeloma - daratumumab (Darzalex) IV d1,8,15,22 fb D1,15 fb d1 + pomalidomide(Pomalyst) PO d1-21 every 28 days Status Active Start Date 11/03/2022 End Date 10/19/2023 (Planned) Provider Raimundo Pacheco MD Chemotherapy pomalidomide 4 mg Cap, 4 mg, Oral, Daily, 1 of 1 cycle, Start date: --, End date: -- [id number] (DARZALEX FASPRO) 1,800 mg-30,000 unit/15 mL subcutaneous injection 1,800 mg, 1,800 mg, Subcutaneous, Once, 4 of 12 cycles Administration: 1,800 mg (11/03/2022), 1,800 mg (11/10/2022), 1,800 mg (12/01/2022), 1,800 mg (12/15/2022), 1,800 mg (12/22/2022), 1,800 mg (01/12/2023), 1,800 mg (02/02/2023), 1,800 mg (02/16/2023), 1,800 mg(12/29/2022), 1,800 mg (01/20/2023), 1,800 mg (03/02/2023), 1,800 mg (03/16/2023) Allergies: Ampicillin, Codeine, Indomethacin, Morphine, and Penicillin Medications: Current Outpatient Medications on File Prior to Visit Medication Sig Dispense Refill ??? HYDROcodone-acetaminophen (NORCO 7.5-325) 7.5-325 mg per tablet Take 1 tablet by mouth. ??? Advair HFA 115-21 mcg/actuation inhaler 2 [...] mouth 3 (three) times daily as needed. ? ? lidocaine HCl (magic mouthwash, without [...] (two) times daily. 20 tablet 0 ??? [DISCONTINUED] sulfamethoxazole-trimethoprim (BACTRIM DS) 800-160 mg per tablet Take 1 tablet (160 mg of trimethoprim total) by mouth in the morning and 1 tablet (160 mg of trimethoprim total) before bedtime. 20 tablet 0 ??? [DISCONTINUED] traMADoL (ULTRAM) 50 mg tablet Take 1 tablet (50 mg total) by mouth. No current facility-administered medications on file prior to visit. Review of Systems: Review of Systems All other systems reviewed and are negative. Vitals: Vitals: 03/30/23 0900 BP: 133/72 Pulse: 75 Resp: 20 SpO2: 94% Physical Exam: Physical Exam Vitals reviewed. Constitutional: Appearance: Normal appearance. HENT: Head: Normocephalic and atraumatic. Mouth/Throat: Mouth: Mucous membranes are moist. Eyes: Extraocular Movements: Extraocular movements intact. Pupils: Pupils are equal, round, and reactive to light. Cardiovascular: Rate and Rhythm: Normal rate and regular rhythm. Pulmonary: Effort: Pulmonary effort is normal. Breath sounds: Normal breath sounds. Comments: No dullness to percussion Abdominal: General: Abdomen is flat. Bowel sounds are normal. Palpations: Abdomen is soft. Comments: No hepatomegaly on deep inspiration Musculoskeletal: General: Normal range of motion. Cervical back: Normal range of motion and neck supple. Comments: Subjective discomfort in the lumbar spine but without other neurologic symptoms Neurological: General: No focal deficit present. Mental Status: She is alert. Relevant Results: Lab Patient Walk-In on 03/30/2023 Component Date [...] 03/30/2023 14 5 - 37 U/L Final [facility] has become aware of sulfasalazine and sulfapyridine [...] 03/30/2023 18 12 - 78 U/L Final [facility] has become aware of sulfasalazine and sulfapyridine [...] to administration of the drug. Infusion on 03/16/2023 Component Date Value Ref Range Status ??? WBC 03/16/2023 4.0 (L) 4.5 - 12.5 K/??L Final ??? RBC 03/16/2023 3.41 (L) 4.00 - 5.25 M/??L Final ??? Hemoglobin 03/16/2023 11.7 (L) 12.0 - 16.0 GM/DL Final ??? Hematocrit 03/16/2023 36.5 36.0 - 46.0 % Final ??? MCV 03/16/2023 107 (H) 80 - 100 fL Final ??? MCH 03/16/2023 34.3 (H) 26.0 - 34.0 pg Final ??? MCHC 03/16/2023 32.1 31.0 - 37.0 GM/DL Final ??? RDW 03/16/2023 13.4 12.0 - 16.8 % Final ??? Platelets 03/16/2023 147 140 - 440 K/CU MM Final ??? MPV 03/16/2023 9.6 7.4 - 10.4 fL Final ??? % Neutros 03/16/2023 33 (L) 45 - 80 % Final ??? % Lymphs 03/16/2023 41 15 - 45 % Final ??? % Monos 03/16/2023 17 (H) 0 - 10 % Final ??? % Eos 03/16/2023 7 (H) 0 - 5 % Final ??? % Baso 03/16/2023 2 0 - 3 % Final ??? # Neutros 03/16/2023 1.34 (L) 2.00 - 8.80 K/??L Final ??? # Lymphs 03/16/2023 1.65 0.70 - 5.50 K/??L Final ??? # Monos 03/16/2023 0.68 0.00 - 1.70 K/??L Final ??? # Eos 03/16/2023 0.28 0.00 - 0.80 K/??L Final ??? # Baso 03/16/2023 0.06 0.00 - 0.20 K/??L Final No results found. Cancer Staging No matching staging information was found for the patient. Plan: I talked her about consideration of having radiation to her lower back and she does not wish to do that. Her ANC today was only 770 and so I have held both her pomalidomide and Darzalex. We will give her Granix 480 mcg today. She is not interested in bone marrow transplant. Her M spike is around 0.9 and has not improved or worsened. Regular recheck that today. I Jayne see her in a week. I may end up just leaving her on the Darzalex maintenance and discontinuing the pomalidomide. Certainlywe can do the opposite also. I have answered her questions Signed: Electronically signed by RAIMUNDO PACHECO MD 03/30/23 1:00 PM EDT No primary care provider on file. documented in this encounter Plan of Treatment Not on file documented as of this encounter Procedures Procedure Name Priority Date/Time Associated Diagnosis Comments IMMUNOFIX ELECTROPHORESIS BILL(SENDOUT) Routine 03/30/2023 1:55 PM EDT Multiple myeloma without remission (HCC) PROTEIN ELECTROPHORESIS W RFLX TO RALPH(SENDOUT) Routine 03/30/2023 1:55 PM EDT Multiple myeloma without remission (HCC) KAPPA-LAMBDA QUANT FLC WITH RATIO(SENDOUT) Routine 03/30/2023 1:55 PM EDT Multiple myeloma without remission (HCC) IMMUNOGLOBULIN M(SENDOUT) Routine 03/30/2023 1:55 PM EDT Multiple myeloma without remission (HCC) IMMUNOGLOBULIN G(SENDOUT) Routine 03/30/2023 1:55 PM EDT Multiple myeloma without remission (HCC) IMMUNOGLOBULIN A(SENDOUT) Routine 03/30/2023 1:55 PM EDT Multiple myeloma without remission (HCC) documented in this encounter Results * Immunofix Electrophoresis Bill(SENDOUT) (03/30/2023 1:55 PM EDT) Immunofix Electrophoresis Bill Billed 04/04/2023 11:02 AM EDT [facility] Comment: Performed By: [facility] [address] [place] [address] [employer] Operator: Parker Rangel MD, PhD Blood Venipuncture / Unknown 03/30/2023 1:55 PM EDT 03/30/2023 1:55 PM EDT Raimundo Pacheco MD LAB BLOOD ORDERABLES Final Res ult Performing Organization Address [facility] Co de Phone Number [address] [phone] * (ABNORMAL) Immunoglobulin A(SENDOUT) (03/30/2023 1:55 PM EDT) Immunoglobulin A 472(H) 68 - 408 mg/dL 04/04/2023 10:53 AM EDT [facility] Comment: REFERENCE INTERVAL: Immunoglobulin A Access complete set of age- and/or gender-specific reference intervals for this test in the [facility] Test Directory (Meet You). Performed By: [facility] [address] [place] [address] [employer] Operator: Parker Rangel MD, PhD Blood Venipuncture / Unknown 03/30/2023 1:55 PM EDT 03/30/2023 1:55 PM EDT Raimundo Pacheco MD LAB BLOOD ORDERABLES Final Res ult Performing Organization Address [facility] Co de Phone Number [address] [phone] * (ABNORMAL) Immunoglobulin M(SENDOUT) (03/30/2023 1:55 PM EDT) Immunoglobulin M 19(L) 35 - 263 mg/dL 04/04/2023 10:53 AM EDT [employer] Comment: REFERENCE INTERVAL: Immunoglobulin M Access complete set of age- and/or gender-specific reference intervals for this test in the [facility] Test Directory (Meet You). Performed By: [facility] [address] [place] [address] [employer] Operator: Parker Rangel MD, PhD Blood Venipuncture / Unknown 03/30/2023 1:55 PM EDT 03/30/2023 1:55 PM EDT us Raimundo Pacheco MD LAB BLOOD ORDERABLES Final Res ult Performing Organization Address [facility] de Phone Number [facility] [address] [phone] * (ABNORMAL) Immunoglobulin G(SENDOUT) (03/30/2023 1:55 PM EDT) [facility] Immunoglobulin G 344(L) 768 - 1632 mg/dL 04/04/2023 10:53 AM EDT [facility] Comment: REFERENCE INTERVAL: Immunoglobulin G Access complete set of age- and/or gender-specific reference intervals for this test in the [facility] Laboratory Test Directory (Meet You). Performed By: [facility] [address] [place] [address] [employer] Operator: Parker Rangel MD, PhD Blood Venipuncture / Unknown 03/30/2023 1:55 PM EDT 03/30/2023 1:55 PM EDT Raimundo Pacheco MD LAB BLOOD ORDERABLES Final Res ult Performing Organization Address [facility] de Phone Number [facility] [address] [phone] * (ABNORMAL) Protein Electrophoresis w Rflx to RALPH(SENDOUT) (03/30/2023 1:55 PM EDT) [facility] Total Protein, Serum 5.9(L) 6.3 - 8.2 g/dL 04/04/2023 11:02 AM EDT [facility] Albumin 3.37(L) 3.75 - 5.01 g/dL 04/04/2023 11:02 AM EDT [facility] Alpha 1 Globulin 0.27 0.19 - 0.46 g/dL 04/04/2023 11:02 AM EDT [facility] Alpha 2 Globulin 0.78 0.48 - 1.05 g/dL 04/04/2023 11:02 AM EDT [facility] Beta Globulin 1.13(H) 0.48 - 1.10 g/dL 04/04/2023 11:02 AM EDT [facility] Gamma 0.34(L) 0.62 - 1.51 g/dL 04/04/2023 11:02 AM EDT [facility] Immunofixation Reflex RALPH Done 04/04/2023 11:02 AM EDT [facility] Monoclonal Protein 0.82 g/dL 2022 11:02 AM EDT [facility] SPEP/RALPH Interpretation See Note 04/04/2023 11:02 AM EDT [facility] Comment: [...] EER Serum Protein Electrophoresis Reflex See Note 04/04/2023 11:02 AM EDT [facility] Comment: Authorized individuals can access the [facility] Enhanced Report using the following link: [email or web address] Performed By: [facility] [employer] [address] [place] [address] [employer] Operator: Parker Rangel MD, PhD Blood Venipuncture / Unknown 03/30/2023 1:55 PM EDT 03/30/2023 1:55 PM EDT us Raimundo Pacheco MD LAB BLOOD ORDERABLES Final Res ult [facility] [address] [place] [address], [facility] [phone] * [place]-Lambda Quant FLC with Ratio(SENDOUT) (03/30/2023 1:55 PM EDT) [place] Qnt Free Light Chains 9.90 3.30 - 19.40 mg/L 04/02/2023 3:30 AM EDT [facility] Comment: INTERPRETIVE INFORMATION: [place] Qnt Free Light Chains Undetected antigen excess is a rare event but cannot be excluded. Free light chain results should always be interpreted in conjunction with other clinical and laboratory findings. Lambda Qnt Free Light Chains 14.44 5.71 - 26.30 mg/L 04/02/2023 3:30 AM EDT [facility] Comment: INTERPRETIVE INFORMATION: Lambda Qnt Free Light Chains Undetected antigen excess is a rare event but cannot be excluded. Free light chain results should always be interpreted in conjunction with other clinical and laboratory findings. [place]/Lambda Free Light Chain Ratio 0.69 0.26 - 1.65 04/02/2023 3:30 AM EDT [facility] Comment: Performed By: [facility] [address] [place] [address] [employer] Operator: Parker Rangel MD, PhD Blood Venipuncture / Unknown 03/30/2023 1:55 PM EDT 03/30/2023 1:55 PM EDT us Raimundo Pacheco MD LAB BLOOD ORDERABLES Final Res ult [facility] [address] [place] [address], [facility] [phone] documented in this encounter Visit Diagnoses Diagnosis Multiple myeloma without remission (HCC)- Primary documented in this encounter
--- OUTSIDE RECORDS SUMMARY | 2024-08-03 17:02 | XMS_ITS | Encounter Summary ---
Author Organization [employer] Address [address] [place] [address] Care Team Providers Care Cardiac Sonographer Name Role Phone Unavailable Primary Care Provider Unavailabl e Encounter Details Date Type Department Care Team (Latest Contact Info) Description 05/04/2023 Travel Social History Tobacco Use Types Packs/Day [...]
--- OUTSIDE RECORDS SUMMARY | 2024-08-03 17:02 | XMS_ITS | Encounter Summary ---
Author Organization [employer] Address [address] [place] [address] Care Team Providers Care Phonograph Needle Tip Maker Name Role Phone Unavailable Primary Care Provider Unavailabl e Reason for Visit * Reason Comments Injections * Episode Based Medication (Routine) - Closed Specialty Diagnoses / Procedures Referred By Ana Paula anne Referred To Contact Diagnoses Multiple myeloma without remission (HCC) Procedures VA DARATUMUMAB, HYALURONIDASE Daratumumab-[id number] Caleb Pacheco MD [address] [place] [address] Phone: tel: fax: [facility] [address] [facility] [facility] [address] [place] [address] Phone: tel: fax: Referral ID Status Reason Start Date Expiration Date Visits Re quested Visits Authorized [id number] Closed 10/20/2022 05/14/2024 1 100 Encounter Details Date Type Department Care Team (Late st Contact Info) Description 04/20/2023 12:45 PM EDT Infusion [facility] [address] [place] [address] Caleb Pacheco MD [address] [facility] [address] [place] [address] Multiple myeloma without remission (HCC) [...] Progress Notes * Adelaida Leal RN - 04/20/2023 12:45 PM EDT Pt tolerated injection well to right side of abdomen. Discharged in stable condition, aware of nextappts. Due for XGEVA injection next visit documented in this encounter Plan of Treatment Not on file documented as of this encounter Visit Diagnoses Diagnosis Multiple myeloma without remission (HCC)- Primary documented in this encounter Administered Medications Inactive Administered Medications - up to 3 most recent administrations Medication Order MAR Action Action Date Dose Rate Site acetaminophen (TYLENOL) tablet 650 mg 650 mg Once, oral, On Wed04/20/23 at 1230, For 1 dose, Recommended maximum dose of acetaminophen is 4000 mg from all sources in 24 hoursIndications:Multip le myeloma without remission (HCC) Given 04/20/2023 12:16 PM EDT 650 mg daratumumab-hyaluronida se-fihj (DARZALEX FASPRO) 1,800 mg-30,000 unit/15 mL subcutaneous injection 1,800 mg 1,800 mg Once, subcutaneous, at 300 mL/hr, On Wed04/20/23 at 1230, For 1 dose, FLAT DOSING Administer into the subcutaneous tissue of the abdomen about 3 inches to the right or left of the navel over 3-5 minutes. Rotate injection sites for successive injections.Indications: Multiple myeloma without remission (HCC) Given 04/20/2023 12:33 PM EDT 1,800 mg 300 mL/hr Abdominal Tissue diphenhydrAMINE (BENADRYL) capsule 25 mg 25 mg Once, oral, On Wed04/20/23 at 1230, For 1 dose,Indications:Multip le myeloma without remission (HCC) Given 04/20/2023 12:16 PM EDT 25 mg documented in this encounter
--- OUTSIDE RECORDS SUMMARY | 2024-08-03 17:02 | XMS_ITS | Encounter Summary ---
Author Organization [employer] Address [address] [place] [address] Care Team Providers Care Power Line Installer Name Role Phone Unavailable Primary Care Provider Unavailabl e Reason for Visit * Reason Comments Chemotherapy * Episode Based Medication (Routine) - Closed Specialty Diagnoses / Procedures Referred By Ana Paula anne Referred To Contact Diagnoses Multiple myeloma without remission (HCC) Procedures CO DARATUMUMAB, HYALURONIDASE [id number] Caleb Pacheco MD [address] [place] [address] Phone: tel: fax: [facility] [address] [facility] [address] [place] [address] Phone: tel: fax: Referral ID Status Reason Start Date Expiration Date Visits Re quested Visits Authorized [id number] Closed 10/20/2022 05/14/2024 1 100 Encounter Details Date Type Department Care Team (Late st Contact Info) Description 06/01/2023 11:00 AM EDT Infusion [facility] [address] [place] [address] Caleb Pacheco MD [address] [facility] [address] [place] [address] Multiple myeloma without remission (HCC) [...] Sign Reading Time Taken Comments Blood Pressure 119/61 06/01/2023 11:31 AM EDT Pulse 66 06/01/2023 11:31 AM EDT Temperature 36.3 ??C (97.3 ??F) 06/01/2023 1 1:31 AM EDT Respiratory Rate 16 06/01/2023 11:3 1 AM EDT Oxygen Saturation 95% 06/01/2023 11: 31 AM EDT Inhaled Oxygen Concentration - - Weight 128.6 kg (283 lb 8.2 oz) 023 11:31 AM EDT Height - - Body Mass Index 43.12 05/18/2023 11:25 AM EDT documented in this encounter Progress Notes * Kandi Ford RN - 06/01/2023 11:00 AM EDT Tolerated injection well. Discharged in stable condition documented in this encounter Plan of Treatment Not on file documented as of this encounter Procedures Procedure Name Priority Date/Time Associated Diagnosis Comments IMMUNOFIX ELECTROPHORESIS BILL(SENDOUT) Routine 06/01/2023 11:07 AM EDT Multiple myeloma without remission (HCC) CBC W/ AUTO DIFF STAT 06/01/2023 11:0 7 AM EDT Multiple myeloma without remission (HCC) PROTEIN ELECTROPHORESIS W RFLX TO RALPH(SENDOUT) Routine 06/01/2023 11:07 AM EDT Multiple myeloma without remission (HCC) KAPPA-LAMBDA QUANT FLC WITH RATIO(SENDOUT) Routine 06/01/2023 11:07 AM EDT Multiple myeloma without remission (HCC) IMMUNOGLOBULIN M(SENDOUT) Routine 06/01/2023 11:07 AM EDT Multiple myeloma without remission (HCC) IMMUNOGLOBULIN G(SENDOUT) Routine 06/01/2023 11:07 AM EDT Multiple myeloma without remission (HCC) IMMUNOGLOBULIN A(SENDOUT) Routine 06/01/2023 11:07 AM EDT Multiple myeloma without remission (HCC) COMPREHENSIVE METABOLIC PANEL STAT 06/01/2023 11:07 AM EDT Multiple myeloma without remission (HCC) documented in this encounter Results * Immunofix Electrophoresis Bill(SENDOUT) (06/01/2023 11:07 AM EDT) [facility] Immunofix Electrophoresis Bill Billed 06/05/2023 11:31 AM EDT [facility] Comment: Performed By: [facility] [address] [place] [address] Registered Dietician: Parker Rangel MD, PhD CLIA Number: [id number] Blood Venipuncture / Unknown 06/01/2023 11:07 AM EDT 06/01/2023 11:29 AM EDT Caleb Pacheco MD LAB BLOOD ORDERABLES Final Res ult [facility] [address] [place] [address], [facility] [phone] * Immunoglobulin A(SENDOUT) (06/01/2023 11:07 AM EDT) [facility] Immunoglobulin A 373 68 - 408 mg/dL 06/05/2023 9:57 AM EDT [facility] Comment: REFERENCE INTERVAL: Immunoglobulin A Access complete set of age- and/or gender-specific reference intervals for this test in the [facility] ([facility]). Performed By: [facility] [address] [place] [address] Registered Dietician: Parker Rangel MD, PhD CLIA Number: [id number] Blood Venipuncture / Unknown 06/01/2023 11:07 AM EDT 06/01/2023 11:29 AM EDT Caleb Pacheco MD LAB BLOOD ORDERABLES Final Res ult Performing Organization Address [facility] Co de Phone Number [address] [phone] * (ABNORMAL) Immunoglobulin M(SENDOUT) (06/01/2023 11:07 AM EDT) Immunoglobulin M 12(L) 35 - 263 mg/dL 06/05/2023 9:57 AM EDT [facility] Comment: REFERENCE INTERVAL: Immunoglobulin M Access complete set of age- and/or gender-specific reference intervals for this test in the [facility] ([facility]). Performed By: [facility] [address] [place] [address] Registered Dietician: Parker Rangel MD, PhD CLIA Number: [id number] Blood Venipuncture / Unknown 06/01/2023 11:07 AM EDT 06/01/2023 11:29 AM EDT Caleb Pacheco MD LAB BLOOD ORDERABLES Final Res ult Performing Organization Address [facility]/ZIP Co de Phone Number [address] [phone] * (ABNORMAL) Immunoglobulin G(SENDOUT) (06/01/2023 11:07 AM EDT) Immunoglobulin G 284(L) 768 - 1632 mg/dL 06/05/2023 9:57 AM EDT [facility] [employer] Comment: REFERENCE INTERVAL: Immunoglobulin G Access complete set of age- and/or gender-specific reference intervals for this test in the [facility] ([facility]). Performed By: [facility] [address] [place], [place] [id number] Registered Dietician: Parker Rangel MD, PhD CLIA Number: [id number] Blood Venipuncture / Unknown 06/01/2023 11:07 AM EDT 06/01/2023 11:29 AM EDT Caleb Pacheco MD LAB BLOOD ORDERABLES Final Res ult Performing Organization Address [facility]/ZIP Co de Phone Number [facility] [employer] [address] [place] [address], [facility] [phone] * Seis Lagos-Lambda Quant FLC with Ratio (SENDOUT) (06/01/2023 11:07 AM EDT) [facility] [place] Qnt Free Light Chains 6.65 3.30 - 19.40 mg/L 06/03/2023 7:45 AM EDT [facility] Comment: INTERPRETIVE INFORMATION: Seis Lagos Qnt Free Light Chains Undetected antigen excess is a rare event but cannot be excluded. Free light chain results should always be interpreted in conjunction with other clinical and laboratory findings. Lambda Qnt Free Light Chains 12.35 5.71 - 26.30 mg/L 06/03/2023 7:45 AM EDT [facility] Comment: INTERPRETIVE INFORMATION: Lambda Qnt Free Light Chains Undetected antigen excess is a rare event but cannot be excluded. Free light chain results should always be interpreted in conjunction with other clinical and laboratory findings. Seis Lagos/Lambda Free Light Chain Ratio 0.54 0.26 - 1.65 06/03/2023 7:45 AM EDT [facility] [employer] Comment: Performed By: [facility] [address] [place] [address] Registered Dietician: Parker Rangel MD, PhD CLIA Number: [id number] Blood Venipuncture / Unknown 06/01/2023 11:07 AM EDT 06/01/2023 11:29 AM EDT Caleb Pacheco MD LAB BLOOD ORDERABLES Final Res ult [facility] [address] [phone] * (ABNORMAL) Protein Electrophoresis w Rflx to RALPH (SENDOUT) (06/01/2023 11:07 AM EDT) Total Protein, Serum 5.8(L) 6.3 - 8.2 g/dL 06/05/2023 11:30 AM EDT [facility] Albumin 3.28(L) 3.75 - 5.01 g/dL 06/05/2023 11:30 AM EDT [facility] Alpha 1 Globulin 0.28 0.19 - 0.46 g/dL 06/05/2023 11:30 AM EDT [facility] Alpha 2 Globulin 0.78 0.48 - 1.05 g/dL 06/05/2023 11:30 AM EDT [facility] Beta Globulin 1.15(H) 0.48 - 1.10 g/dL 06/05/2023 11:30 AM EDT [facility] Gamma 0.30(L) 0.62 - 1.51 g/dL 06/05/2023 11:30 AM EDT [facility] Immunofixation Reflex RALPH Done 06/05/2023 11:30 AM EDT [facility] Monoclonal Protein 0.80 g/dL 2022 11:30 AM EDT [facility] SPEP/RALPH Interpretation See Note 06/05/2023 11:30 AM EDT [facility] Comment: Monoclonal spike in [...] EER Serum Protein Electrophoresis Reflex See Note 06/05/2023 11:30 AM EDT [facility] Comment: Authorized individuals can access the [facility] Enhanced Report using the following link: [email or web address] Performed By: [facility] [employer] [address] [place] [address] Registered Dietician: Parker Rangel MD, PhD CLIA Number: [id number] Blood Venipuncture / Unknown 06/01/2023 11:07 AM EDT 06/01/2023 11:29 AM EDT us Caleb Pacheco MD LAB BLOOD ORDERABLES Final Res ult [facility] [employer] [address] [place] [address] * (ABNORMAL) Comprehensive metabolic panel (06/01/2023 11:07 AM EDT) Sodium 142 136 - 146 meq/L 06/01/2023 12:40 PM EDT [facility] Potassium 3.9 3.5 - 5.1 meq/L 06/01/2023 12:40 PM EDT [facility] Chloride 111 102 - 112 meq/L 06/01/2023 12:40 PM EDT [facility] CO2 27 21 - 32 meq/L 06/01/2023 12:40 PM EDT [facility] Calcium 8.8 8.5 - 10.1 mg/dL 06/01/2023 12:40 PM EDT [facility] Glucose 110(H) 74 - 106 mg/dL 06/01/2023 12:40 PM EDT [facility] BUN 9 7 - 22 mg/dL 06/01/2023 12:40 PM EDT [facility] Creatinine 0.91 0.55 - 1.02 mg/dL 06/01/2023 12:40 PM EDT [facility] BUN/Creatinine 10 8 - 20 06/01/2023 12:40 PM EDT [facility] Albumin 2.9(L) 3.4 - 5.0 g/dL 06/01/2023 12:40 PM EDT [facility] Alkaline Phosphatase 50 27 - 136 U/L 06/01/2023 12:40 PM EDT [facility] ALT 18 12 - 78 U/L 06/01/2023 12:40 PM EDT [facility] AST 15 5 - 37 U/L 06/01/2023 12:40 PM EDT [facility] Total Bilirubin 0.5 0.2 - 1.3 mg/dL 06/01/2023 12:40 PM EDT [facility] Protein, Total 6.2(L) 6.4 - 8.2 gm/dL 06/01/2023 12:40 PM EDT [facility] Anion Gap 8(L) 9 - 20 06/01/2023 12:40 PM EDT [facility] A/G Ratio 0.9(L) 1.1 - 2.5 06/01/2023 12:40 PM EDT [facility] Globulin 3.3 1.5 - 4.5 g/dL 06/01/2023 12:40 PM EDT [facility] Osmolality Calc 282.4 12:40 PM EDT [facility] eGFR (mL/min/1.73m2) >60 >=60 mL/min/1.7 3m2 06/01/2023 12:40 PM EDT [facility] Comment:ESTIMATED GFR IS NOT ACCURATE CREATININE CLEARANCE IN PREDICTING GLOMERULAR FILTRATION RATE. ESTIMATED GFR IS NOT APPLICABLE FOR DIALYSIS PATIENTS. Blood Venipuncture / Unknown 06/01/2023 11:07 AM EDT 06/01/2023 11:29 AM EDT us Caleb Pacheco MD LAB BLOOD ORDERABLES Final Res ult [facility] [address] [place] [address], [facility] [phone] * (ABNORMAL) CBC with Automated Diff (06/01/2023 11:07 AM EDT) WBC 3.8(L) 4.5 - 12.5 K/??L 06/01/2023 11:35 AM EDT [facility] RBC 3.28(L) 4.00 - 5.25 M/??L 06/01/2023 11:35 AM EDT [facility] Hemoglobin 11.0(L) 12.0 - 16.0 GM/DL 06/01/2023 11:35 AM EDT [facility] Hematocrit 34.4(L) 36.0 - 46.0 % 06/01/2023 11:35 AM EDT [facility] MCV 105(H) 80 - 100 fL 06/01/2023 11:35 AM EDT [facility] MCH 33.5 26.0 - 34.0 pg 06/01/2023 11:35 AM EDT [facility] MCHC 32.0 31.0 - 37.0 GM/DL 06/01/2023 11:35 AM EDT [facility] RDW 12.6 12.0 - 16.8 % 06/01/2023 11:35 AM EDT [facility] Platelets 138(L) 140 - 440 K/CU MM 06/01/2023 11:35 AM EDT [facility] MPV 9.8 7.4 - 10.4 fL 06/01/2023 11:35 AM EDT [facility] % Neutros 47 45 - 80 % 06/01/2023 11:35 AM EDT [facility] % Lymphs 38 15 - 45 % 06/01/2023 11:35 AM EDT [facility] % Monos 12(H) 0 - 10 % 06/01/2023 11:35 AM EDT [facility] % Eos 2 0 - 5 % 06/01/2023 11:35 AM EDT [facility] % Baso 0 0 - 3 % 06/01/2023 11:35 AM EDT [facility] # Neutros 1.77(L) 2.00 - 8.80 K/??L 06/01/2023 11:35 AM EDT [facility] # Lymphs 1.43 0.70 - 5.50 K/??L 06/01/2023 11:35 AM EDT [facility] # Monos 0.45 0.00 - 1.70 K/??L 06/01/2023 11:35 AM EDT [facility] # Eos 0.09 0.00 - 0.80 K/??L 06/01/2023 11:35 AM EDT [facility] # Baso 0.01 0.00 - 0.20 K/??L 06/01/2023 11:35 AM EDT [facility] Blood Venipuncture / Unknown 06/01/2023 11:07 AM EDT 06/01/2023 11:28 AM EDT Narrative [facility] - 06/01/2023 11:35 AM EDT When CBC w/ Auto Diff [...] ult [facility] [address] [place] [address], [facility] [phone] documented in this encounter Visit Diagnoses Diagnosis Multiple myeloma without remission (HCC)- Primary documented in this encounter Administered Medications Inactive Administered Medications - up to 3 most recent administrations Medication Order MAR Action Action Date Dose Rate Site acetaminophen (TYLENOL) tablet 650 mg 650 mg Once, oral, On Wed06/01/23 at 1200, For 1 dose, Recommended maximum dose of acetaminophen is 4000 mg from all sources in 24 hoursIndications:Multip le myeloma without remission (HCC) Given 06/01/2023 11:52 AM EDT 650 mg daratumumab-hyaluronida se-fihj (DARZALEX FASPRO) 1,800 mg-30,000 unit/15 mL subcutaneous injection 1,800 mg 1,800 mg Once, subcutaneous, at 300 mL/hr, On Wed06/01/23 at 1230, For 1 dose, FLAT DOSING Administer into the subcutaneous tissue of the abdomen about 3 inches to the right or left of the navel over 3-5 minutes. Rotate injection sites for successive injections.Indications: Multiple myeloma without remission (HCC) Given 06/01/2023 12:25 PM EDT 1,800 mg 300 mL/hr Abdominal Tissue diphenhydrAMINE (BENADRYL) capsule 25 mg 25 mg Once, oral, On Wed06/01/23 at 1200, For 1 dose,Indications:Multip le myeloma without remission (HCC) Given 06/01/2023 11:53 AM EDT 25 mg documented in this encounter
--- OUTSIDE RECORDS SUMMARY | 2024-08-03 17:02 | XMS_ITS | Encounter Summary ---
Author Organization [employer] Address [address] [place] [address] Care Team Providers Care Bartender Manager Name Role Phone Unavailable Primary Care Provider Unavailabl e Reason for Visit * Reason Onset Date Comments ongoing pain 04/01/2023 Encounter Details Date Type Department Care Team (Late st Contact Info) Description 04/01/2023 Telephone [facility] - [address] [place] [address] Caleb Pacheco MD [address] [facility] [address] [place] [address] ongoing pain Social History Tobacco Use Types Packs/Day Years [...] Telephone Encounter - Nicki Thurston RN - 04/01/2023 2:55 PM EDT Images from the original note were not included. Donna Almodovar, SHARAD You 7 minutes ago (2:46 PM) SB Looks like back pain has been ongoing and having issues getting treatment due to cytopenias. ??Has she tried anything else to help with back pain such as ibuprofen/tylenol in addition to narcs? It was recommended she receive radiation to that area to help with pain and that would be the next step. ??I can put in referral to have her see rad onc for evaluation. ??If pain is unbearable, or she is having incontinence or saddle numbness, she needs to go to ED for evaluation for spinal cord compression. SB Pt notified of above and states that she does not wish to proceed with Rad Onc consult. She will try the tylenol and if it doesn't improve she will go to ED. She will keep our office posted. * Telephone Encounter - Nicki Thurston RN - 04/01/2023 2:25 PM EDT Pt returned call to Rn and she states that she got woken up in the night with pain in her back on Wednesday night. She has tried ice and has been taking Oxycodone 5 mg 2 tablets and it's not helping. Pain is in her lower back and down her left leg from hip to knee. Denies any swelling in her leg or redness. Denies any injury or popping sound. The pain is worse when laying down or walking. If she sits and doesn't move then she doesn't hurt. Donna, please advise. Thanks * Telephone Encounter - Nicki Thurston RN - 04/01/2023 2:17 PM EDT Pt returned call to RN line. Rn attempted to call back but went to . to have pt return call. * Telephone Encounter - Nicki Thurston RN - 04/01/2023 11:13 AM EDT Pt called into RN line stating that she is having awful pain in her back and down her legs. She hastried doubling up on the pain medication and it's not helping. She needs something stronger. RN attempted to call pt back but no answer. LM to have pt return call. documented in this encounter Plan of Treatment Not on file documented as of this encounter Visit Diagnoses Not on filedocumented in this encounter
--- OUTSIDE RECORDS SUMMARY | 2024-08-03 17:02 | XMS_ITS | Encounter Summary ---
Author Organization [employer] Address [address] [place] [address] Care Team Providers Care Neonatal Social Worker Name Role Phone Unavailable Primary Care Provider Unavailabl e Encounter Details Date Type Department Care Team (Late st Contact Info) Description 04/18/2023 Orders Only [facility] - [facility] [address] [place] [address] Caleb Pacheco MD [address] [facility] [address] [place] [address] Multiple myeloma without remission (HCC) [...]
--- OUTSIDE RECORDS SUMMARY | 2024-08-03 17:02 | XMS_ITS | Encounter Summary ---
Author Organization [employer] Address [address] [place] [address] Care Team Providers Care Satellite Instruction Facilitator Name Role Phone Unavailable Primary Care Provider Unavailabl e Reason for Visit * Reason Comments Injections Xgeva & zarxio * Episode Based Medication (Routine) - Closed Specialty Diagnoses / Procedures Referred By Ana Paula anne Referred To Contact Diagnoses Multiple myeloma without remission (HCC) Procedures DENOSUMAB INJECTION Xgeva/ [id number] Caleb Pacheco MD [address] [facility] [facility] [address] [place] [address] Phone: tel: fax: [facility] [address] [facility] [address] [place] [address] Phone: tel: fax: Referral ID Status Reason Start Date Expiration Date Visits Re quested Visits Authorized [id number] Closed 06/16/2022 05/14/2024 99 100 Encounter Details Date Type Department Care Team (Late st Contact Info) Description 03/30/2023 10:15 AM EDT Infusion [facility] - [facility] [address] [place] [address] Caleb Pacheco MD [address] [facility] [address] [place] [address] Multiple myeloma without remission (HCC) [...] as of this encounter Progress Notes * Brandy Thomas RN - 03/30/2023 10:15 AM EDTSummary: DOCUMENTATION DOCUMENTATION documented in this encounter Plan of Treatment Not on file documented as of this encounter Visit Diagnoses Diagnosis Multiple myeloma without remission (HCC)- Primary documented in this encounter Administered Medications Inactive Administered Medications - up to 3 most recent administrations Medication Order MAR Action Action Date Dose Rate Site denosumab (XGEVA) subcutaneous injection 120 mg 120 mg Once, subcutaneous, On Wed03/30/23 at 1030, For 1 dose, * Refrigerated * Bring to room temperature 15 to 30 minutes prior to administration., This medication is restricted to use in outpatients only. Is this patient in outpatient status? YesIndications:Multiple myeloma without remission (HCC) Given 03/30/2023 10:46 AM EDT 120 mg Abdominal Tissue filgrastim-sndz (ZARXIO) injection 480 mcg 480 mcg Once, subcutaneous, On Wed03/30/23 at 1030, For 1 dose, ZARXIO TERTIARY AGENT Contact MD to consider discontinuation if ANC > 2,000/mL or WBC > 5,000/mL. Refrigerate.Indications:Mul tiple myeloma without remission (HCC) Given 03/30/2023 10:46 AM EDT 480 mcg Abdominal Tissue documented in this encounter
--- OUTSIDE RECORDS SUMMARY | 2024-08-03 17:02 | XMS_ITS | Encounter Summary ---
Author Organization [employer] Address [address] [place] [address] Care Team Providers Care Household Coordinator Name Role Phone Unavailable Primary Care Provider Unavailabl e Reason for Visit * Reason Comments Injections * Episode Based Medication (Routine) - Closed Specialty Diagnoses / Procedures Referred By Ana Paula anne Referred To Contact Diagnoses Multiple myeloma without remission (HCC) Procedures [place] DARATUMUMAB, HYALURONIDASE Daratumumab-[id number] Caleb Pacheco MD [address] [place] [address] Phone: tel: fax: [facility] - [facility] [address] [facility] [address] [place] [address] Phone: tel: fax: Referral ID Status Reason Start Date Expiration Date Visits Re quested Visits Authorized [id number] Closed 10/20/2022 05/14/2024 1 100 Encounter Details Date Type Department Care Team (Late st Contact Info) Description 05/04/2023 11:30 AM EDT Infusion [facility] - [facility] [address] [place] [address] Caleb Pacheco MD [address] [facility] [address] [place] [address] Multiple myeloma without remission [...] Progress Notes * Kandi Ford RN - 05/04/2023 11:30 AM EDT Tolerated injections well. Discharged in stable condition documented in this encounter Plan of Treatment Not on file documented as of this encounter Procedures Procedure Name Priority Date/Time Associated Diagnosis Comments CBC W/ AUTO DIFF STAT 05/04/2023 11:4 6 AM EDT Multiple myeloma without remission (HCC) COMPREHENSIVE METABOLIC PANEL STAT 05/04/2023 11:46 AM EDT Multiple myeloma without remission (HCC) documented in this encounter Results * (ABNORMAL) Comprehensive metabolic panel (05/04/2023 11:46 AM EDT) Sodium 144 136 - 146 meq/L 05/04/2023 12:51 PM EDT [facility] Potassium 3.8 3.5 - 5.1 meq/L 05/04/2023 12:51 PM EDT [facility] Chloride 111 102 - 112 meq/L 05/04/2023 12:51 PM EDT [facility] CO2 27 21 - 32 meq/L 05/04/2023 12:51 PM EDT [facility] Calcium 8.7 8.5 - 10.1 mg/dL 05/04/2023 12:51 PM EDT [facility] Glucose 105 74 - 106 mg/dL 05/04/2023 12:51 PM [facility] BUN 13 7 - 22 mg/dL 05/04/2023 12:51 PM [facility] Creatinine 0.98 0.55 - 1.02 mg/dL 05/04/2023 12:51 PM [facility] BUN/Creatinine 13 8 - 20 05/04/2023 12:51 PM [facility] Albumin 2.8(L) 3.4 - 5.0 g/dL 05/04/2023 12:51 PM [facility] Alkaline Phosphatase 51 27 - 136 U/L 05/04/2023 12:51 PM [facility] ALT 22 12 - 78 U/L 05/04/2023 12:51 PM [facility] AST 14 5 - 37 U/L 05/04/2023 12:51 PM [facility] Total Bilirubin 0.3 0.2 - 1.3 mg/dL 05/04/2023 12:51 PM [facility] Protein, Total 6.2(L) 6.4 - 8.2 gm/dL 05/04/2023 12:51 PM [facility] Anion Gap 10 9 - 20 05/04/2023 12:51 PM [facility] A/G Ratio 0.8(L) 1.1 - 2.5 05/04/2023 12:51 PM [facility] Globulin 3.4 1.5 - 4.5 g/dL 05/04/2023 12:51 PM [facility] Osmolality Calc 287.3 12:51 PM [facility] eGFR (mL/min/1.73m2) >60 >=60 mL/min/1.7 3m2 05/04/2023 12:51 PM [facility] Comment:ESTIMATED GFR IS NOT ACCURATE CREATININE CLEARANCE IN PREDICTING GLOMERULAR FILTRATION RATE. ESTIMATED GFR IS NOT APPLICABLE FOR DIALYSIS PATIENTS. Blood ENTIRE LEFT UPPER ARM / Unknown Venipuncture / Unknown 05/04/2023 11:46 AM EDT 05/04/2023 11:55 AM EDT us Caleb Pacheco MD LAB BLOOD ORDERABLES Final Res ult [facility] [address] [place] [address], [facility] [phone] * (ABNORMAL) CBC with Automated Diff (05/04/2023 11:46 AM EDT) WBC 3.6(L) 4.5 - 12.5 K/??L 05/04/2023 12:01 PM EDT [facility] RBC 3.50(L) 4.00 - 5.25 M/??L 05/04/2023 12:01 PM EDT [facility] Hemoglobin 11.7(L) 12.0 - 16.0 GM/DL 05/04/2023 12:01 PM EDT [facility] Hematocrit 37.0 36.0 - 46.0 % 05/04/2023 12:01 PM EDT [facility] MCV 106(H) 80 - 100 fL 05/04/2023 12:01 PM EDT [facility] MCH 33.4 26.0 - 34.0 pg 05/04/2023 12:01 PM EDT [facility] MCHC 31.6 31.0 - 37.0 GM/DL 05/04/2023 12:01 PM EDT [facility] RDW 12.8 12.0 - 16.8 % 05/04/2023 12:01 PM EDT [facility] Platelets 130(L) 140 - 440 K/CU MM 05/04/2023 12:01 PM EDT [facility] MPV 9.6 7.4 - 10.4 fL 05/04/2023 12:01 PM EDT [facility] % Neutros 44(L) 45 - 80 % 05/04/2023 12:01 PM EDT [facility] % Lymphs 42 15 - 45 % 05/04/2023 12:01 PM EDT [facility] % Monos 12(H) 0 - 10 % 05/04/2023 12:01 PM EDT [facility] % Eos 2 0 - 5 % 05/04/2023 12:01 PM EDT [facility] % Baso 0 0 - 3 % 05/04/2023 12:01 PM EDT [facility] # Neutros 1.58(L) 2.00 - 8.80 K/??L 05/04/2023 12:01 PM EDT [facility] # Lymphs 1.48 0.70 - 5.50 K/??L 05/04/2023 12:01 PM EDT [facility] # Monos 0.43 0.00 - 1.70 K/??L 05/04/2023 12:01 PM EDT [facility] # Eos 0.07 0.00 - 0.80 K/??L 05/04/2023 12:01 PM EDT [facility] # Baso 0.01 0.00 - 0.20 K/??L 05/04/2023 12:01 PM EDT [facility] Blood ENTIRE LEFT UPPER ARM / Unknown Venipuncture / Unknown 05/04/2023 11:46 AM EDT 05/04/2023 11:55 AM EDT Narrative [facility] - 05/04/2023 12:01 PM EDT When CBC w/ Auto Diff [...] Res ult [facility] [address] [place] [address], [facility] [phone] documented in this encounter Visit Diagnoses Diagnosis Multiple myeloma without remission (HCC)- Primary documented in this encounter Administered Medications Inactive Administered Medications - up to 3 most recent administrations Medication Order MAR Action Action Date Dose Rate Site acetaminophen (TYLENOL) tablet 650 mg 650 mg Once, oral, On Wed05/04/23 at 1230, For 1 dose, Recommended maximum dose of acetaminophen is 4000 mg from all sources in 24 hoursIndications:Multip le myeloma without remission (HCC) Given 05/04/2023 12:16 PM EDT 650 mg daratumumab-hyaluronida se-fihj (DARZALEX FASPRO) 1,800 mg-30,000 unit/15 mL subcutaneous injection 1,800 mg 1,800 mg Once, subcutaneous, at 300 mL/hr, On Wed05/04/23 at 1230, For 1 dose, FLAT DOSING Administer into the subcutaneous tissue of the abdomen about 3 inches to the right or left of the navel over 3-5 minutes. Rotate injection sites for successive injections.Indications: Multiple myeloma without remission (HCC) Given 05/04/2023 12:28 PM EDT 1,800 mg 300 mL/hr Abdominal Tissue denosumab (XGEVA) subcutaneous injection 120 mg 120 mg Once, subcutaneous, On Wed05/04/23 at 1230, For 1 dose, * Refrigerated * Bring to room temperature 15 to 30 minutes prior to administration., This medication is restricted to use in outpatients only. Is this patient in outpatient status? YesIndications:Multiple myeloma without remission (HCC) Given 05/04/2023 12:34 PM EDT 120 mg Right Arm diphenhydrAMINE (BENADRYL) capsule 25 mg 25 mg Once, oral, On Wed05/04/23 at 1230, For 1 dose,Indications:Multip le myeloma without remission (HCC) Given 05/04/2023 12:16 PM EDT 25 mg documented in this encounter
--- OUTSIDE RECORDS SUMMARY | 2024-08-03 17:02 | XMS_ITS | Encounter Summary ---
Author Organization [employer] Address [address] [place] [address] Care Team Providers Care Linux Network Engineer Name Role Phone Unavailable Primary Care Provider Unavailabl e Encounter Details Date Type Department Care Team (Late st Contact Info) Description 04/05/2023 Orders Only [facility] - [facility] [address] [place] [address] Caleb Pacheco MD [address] [facility] [address] [place] [address] Multiple myeloma without remission (HCC) [...] - 146 meq/L 04/06/2023 11:13 AM EDT [facility] Potassium 3.7 3.5 - 5.1 meq/L 04/06/2023 11:13 AM [facility] Chloride 112 102 - 112 meq/L 04/06/2023 11:13 AM [facility] CO2 26 21 - 32 meq/L 04/06/2023 11:13 AM [facility] Calcium 8.9 8.5 - 10.1 mg/dL 04/06/2023 11:13 AM [facility] Glucose 98 74 - 106 mg/dL 04/06/2023 11:13 AM [facility] BUN 15 7 - 22 mg/dL 04/06/2023 11:13 AM [facility] Creatinine 1.00 0.55 - 1.02 mg/dL 04/06/2023 11:13 AM [facility] BUN/Creatinine 15 8 - 20 04/06/2023 11:13 AM [facility] Albumin 3.0(L) 3.4 - 5.0 g/dL 04/06/2023 11:13 AM [facility] Alkaline Phosphatase 49 27 - 136 U/L 04/06/2023 11:13 AM [facility] ALT 17 12 - 78 U/L 04/06/2023 11:13 AM [facility] AST 15 5 - 37 U/L 04/06/2023 11:13 AM [facility] Total Bilirubin 0.3 0.2 - 1.3 mg/dL 04/06/2023 11:13 AM [facility] Protein, Total 6.3(L) 6.4 - 8.2 gm/dL 04/06/2023 11:13 AM [facility] Anion Gap 11 9 - 20 04/06/2023 11:13 AM [facility] A/G Ratio 0.9(L) 1.1 - 2.5 04/06/2023 11:13 AM [facility] Globulin 3.3 1.5 - 4.5 g/dL 04/06/2023 11:13 AM [facility] Osmolality Calc 289.5 11:13 AM [facility] eGFR (mL/min/1.73m2) >60 >=60 mL/min/1.7 3m2 04/06/2023 11:13 AM EDT [facility] Comment:ESTIMATED GFR IS NOT ACCURATE CREATININE CLEARANCE IN PREDICTING GLOMERULAR FILTRATION RATE. ESTIMATED GFR IS NOT APPLICABLE FOR DIALYSIS PATIENTS. Blood ENTIRE LEFT UPPER ARM / Unknown Venipuncture / Unknown 04/06/2023 10:02 AM EDT 04/06/2023 10:09 AM EDT us Caleb Pacheco MD LAB BLOOD ORDERABLES Final Res ult [facility] [address] [place] [address], [place] [phone] * (ABNORMAL) CBC with Automated Diff (04/06/2023 [...] ult [facility] [address] [phone] documented in this encounter Visit Diagnoses Diagnosis Multiple myeloma without remission (HCC)- Primary documented in this encounter
--- OUTSIDE RECORDS SUMMARY | 2024-08-03 17:03 | XMS_ITS | Encounter Summary ---
Author Organization [employer] Address [address] [place] [address] Care Team Providers Care Fence Machine Operator Name Role Phone Unavailable Primary Care Provider Unavailabl e Reason for Visit * Reason Comments Medication Refill Encounter Details Date Type Department Care Team (Late st Contact Info) Description 01/21/2023 Refill [facility] - [facility] [address] [place] [address] Caleb Pacheco MD [facility] [facility] [address] [place] [address] Social History Tobacco Use Types [...]
--- OUTSIDE RECORDS SUMMARY | 2024-08-03 17:03 | XMS_ITS | Encounter Summary ---
Author Organization [employer] Address [address] [place] [address] Care Team Providers Care Joint Cutter Name Role Phone Unavailable Primary Care Provider Unavailabl e Reason for Visit * Reason Comments Injections Darzalex * Episode Based Medication (Routine) - Closed Specialty Diagnoses / Procedures Referred By Ana Paula anne Referred To Contact Diagnoses Multiple myeloma without remission (HCC) Procedures [place] DARATUMUMAB, HYALURONIDASE Daratumumab-[id number] Caleb Pacheco MD [address] [place] [address] Phone: tel: fax: [facility] - [facility] [address] [place] [phone] Phone: tel: fax: Referral ID Status Reason Start Date Expiration Date Visits Re quested Visits Authorized [id number] Closed 10/20/2022 05/14/2024 1 100 Encounter Details Date Type Department Care Team (Late st Contact Info) Description 01/12/2023 10:15 AM EDT Infusion [facility] - [facility] [address] [place] [address] Caleb Pacheco MD [address] [place] [address] Multiple myeloma without remission (HCC) [...] suspected to have Coronavirus/COVID-19? No / Unsure 01/11/2023 3:50 PM EDT documented as of this encounter Last Filed Vital Signs Vital Sign Reading Time Taken Comments Blood Pressure 148/96 01/12/2023 10:38 AM EDT Pulse 68 01/12/2023 10:38 AM EDT Temperature 36.7 ??C (98 ??F) 01/12/2023 10:38 AM EDT Respiratory Rate 19 01/12/2023 10:38 AM EDT Oxygen Saturation 97% 01/12/2023 10:38 AM EDT Inhaled Oxygen Concentration - - Weight - - Height - - Body Mass Index - - documented in this encounter Progress Notes * Ivet Yee RN - 01/12/2023 10:15 AM EDT Tolerated Darzalex and xgeva without problems. Will return in 1 week. documented in this encounter Plan of Treatment Not on file documented as of this encounter Visit Diagnoses Diagnosis Multiple myeloma without remission (HCC)- Primary documented in this encounter Administered Medications Inactive Administered Medications - up to 3 most recent administrations Medication Order MAR Action Action Date Dose Rate Site acetaminophen (TYLENOL) tablet 650 mg 650 mg Once, oral, On Wed01/12/23 at 1100, For 1 dose, Recommended maximum dose of acetaminophen is 4000 mg from all sources in 24 hoursIndications:Multip le myeloma without remission (HCC) Given 01/12/2023 10:43 AM EDT 650 mg daratumumab-hyaluronida se-fihj (DARZALEX FASPRO) 1,800 mg-30,000 unit/15 mL subcutaneous injection 1,800 mg 1,800 mg Once, subcutaneous, at 300 mL/hr, On Wed01/12/23 at 1130, For 1 dose, FLAT DOSING Administer into the subcutaneous tissue of the abdomen about 3 inches to the right or left of the navel over 3-5 minutes. Rotate injection sites for successive injections.Indications: Multiple myeloma without remission (HCC) Given 01/12/2023 11:09 AM EDT 1,800 mg 300 mL/hr Abdominal Tissue denosumab (XGEVA) subcutaneous injection 120 mg 120 mg Once, subcutaneous, On Wed01/12/23 at 1130, For 1 dose, * Refrigerated * Bring to room temperature 15 to 30 minutes prior to administration., This medication is restricted to use in outpatients only. Is this patient in outpatient status? YesIndications:Multiple myeloma without remission (HCC) Given 01/12/2023 11:09 AM EDT 120 mg Right Arm diphenhydrAMINE (BENADRYL) capsule 25 mg 25 mg Once, oral, On Wed01/12/23 at 1100, For 1 dose,Indications:Multip le myeloma without remission (HCC) Given 01/12/2023 10:43 AM EDT 25 mg documented in this encounter
--- OUTSIDE RECORDS SUMMARY | 2024-08-03 17:03 | XMS_ITS | Encounter Summary ---
Author Organization [email or web address] Address [address] [place] [address] Care Team Providers Care Excelsior Machine Operator Name Role Phone Unavailable Primary Care Provider Unavailabl e Encounter Details Date Type Department Care Team (Latest Contact Info) Description 12/29/2022 11:00 AM EDT Lab Patient Walk-[facility] - [facility] [address] [place] [address] Caleb Pacheco MD [facility] [address] [place] [address] Multiple myeloma, remission status unspecified (HCC); Multiple myeloma without remission (HCC) Social History [...] Pressure - - Pulse - - Temperature 36.7 ??C (98 ??F) 12/29/2022 11: 00 AM EDT Respiratory Rate - - Oxygen Saturation - - Inhaled Oxygen Concentration - - Weight 120.6 kg (265 lb 12.8 oz) 2022 11:00 AM EDT Height - - Body Mass Index 40.99 06/16/2022 9:00 AM EDT documented in this encounter Plan of Treatment Not on file documented as of this encounter Procedures Procedure Name Priority Date/Time Associated Diagnosis Comments BASIC METABOLIC PANEL STAT 01/12/2023 10:02 AM EDT Multiple myeloma without remission (HCC) IMMUNOFIX ELECTROPHORESIS BILL(SENDOUT) Routine 12/29/2022 11:00 AM EDT Multiple myeloma, remission status unspecified (HCC) CBC W/ AUTO DIFF STAT 12/29/2022 11:0 0 AM EDT Multiple myeloma without remission (HCC) PROTEIN ELECTROPHORESIS W RFLX TO RALPH(SENDOUT) Routine 12/29/2022 11:00 AM EDT Multiple myeloma, remission status unspecified (HCC) KAPPA-LAMBDA QUANT FLC WITH RATIO(SENDOUT) Routine 12/29/2022 11:00 AM EDT Multiple myeloma, remission status unspecified (HCC) IMMUNOGLOBULIN M(SENDOUT) Routine 12/29/2022 11:00 AM EDT Multiple myeloma, remission status unspecified (HCC) IMMUNOGLOBULIN G(SENDOUT) Routine 12/29/2022 11:00 AM EDT Multiple myeloma, remission status unspecified (HCC) IMMUNOGLOBULIN A(SENDOUT) Routine 12/29/2022 11:00 AM EDT Multiple myeloma, remission status unspecified (HCC) BASIC METABOLIC PANEL STAT 12/29/2022 11:00 AM EDT Multiple myeloma, remission status unspecified (HCC) documented in this encounter Results * (ABNORMAL) Basic Metabolic Panel (01/12/2023 10:02 AM EDT) Sodium 143 136 - 146 meq/L 01/12/2023 6:39 PM EDT [facility] Potassium 3.1(L) 3.5 - 5.1 meq/L 01/12/2023 6:39 PM EDT [facility] Chloride 108 102 - 112 meq/L 01/12/2023 6:39 PM [facility] CO2 29 21 - 32 meq/L 01/12/2023 6:39 PM T [facility] Anion Gap 9 9 - 20 01/12/2023 6:39 PM [facility] BUN 12 7 - 22 mg/dL 01/12/2023 6:39 PM [facility] Creatinine 0.81 0.55 - 1.02 mg/dL 01/12/2023 6:39 PM [facility] BUN/Creatinine 15 8 - 20 01/12/2023 6:39 PM [facility] Glucose 62(L) 74 - 106 mg/dL 01/12/2023 6:39 PM T [facility] Calcium 9.2 8.5 - 10.1 mg/dL 01/12/2023 6:39 PM [facility] Osmolality Calc 282.7 6:39 PM [facility] eGFR (mL/min/1.73m2) >60 >=60 mL/min/1.7 3m2 01/12/2023 6:39 PM [facility] Comment:eGFR of <60 suggests chronic kidney disease if found over a 3 month period of time. eGFR <15 indicates renal failure. Blood ENTIRE LEFT UPPER ARM / Unknown Venipuncture / Unknown 01/12/2023 10:02 AM EDT 01/12/2023 1:01 PM EDT [facility] - 01/12/2023 6:39 PM EDT As of 12-04-2022 date, reported eGFR is based on the CKD-EPI 2020 equation that does not use a race coefficient. Laboratory Report for eGFR of 45-59 mL/min/1.73m2- For eGFR of 45-59 mL/min/1.73m2, NKF KDOQI and KDIGO guidelines recommend one - time confirmation of eGFR calculated using both creatinine and cystatin C. Cystatin C is recommended in the outpatient patient setting for purposes of confirming chronic kidney disease, rather than in the acute setting for acute kidney injury or failure. us Caleb Pacheco MD LAB BLOOD ORDERABLES Final Res ult [facility] [address] [phone] * Immun[employer]ix Electrophoresis Bill(SENDOUT) (12/29/2022 11:00 AM EDT) Immunofix Electrophoresis Bill Billed 01/04/2023 6:49 AM EDT [facility] Comment: Performed By: [facility] [address] [place] [address] Assistant Activities Director: Parker Rangel MD, PhD Blood Venipuncture / Unknown 12/29/2022 11:00 AM EDT 12/29/2022 11:01 AM EDT us Caleb Pacheco MD LAB BLOOD ORDERABLES Final Res ult Performing Organization Address [facility] de Phone Number [email or web address] [address] [place] [address], [facility] [phone] * (ABNORMAL) Immunoglobulin A(SENDOUT) (12/29/2022 11:00 AM EDT) Pathologist [facility] Immunoglobulin A 534(H) 68 - 408 mg/dL 01/04/2023 6:28 AM EDT [facility] Comment: REFERENCE INTERVAL: Immunoglobulin A Access complete set of age- and/or gender-specific reference intervals for this test in the [facility] Laboratory Test Directory (FAMOCO). Performed By: [facility] [address] [place] [address] Assistant Activities Director: Parker Rangel MD, PhD Blood Venipuncture / Unknown 12/29/2022 11:00 AM EDT 12/29/2022 11:01 AM EDT us Caleb Pacheco MD LAB BLOOD ORDERABLES Final Res ult Performing Organization Address [facility] de Phone Number [address] [phone] * (ABNORMAL) Immunoglobulin M(SENDOUT) (12/29/2022 11:00 AM EDT) Immunoglobulin M 33(L) 35 - 263 mg/dL 01/04/2023 6:28 AM EDT [email or web address] Comment: REFERENCE INTERVAL: Immunoglobulin M Access complete set of age- and/or gender-specific reference intervals for this test in the [facility] Laboratory Test Directory (FAMOCO). Performed By: [facility] [address] [place] [address] Assistant Activities Director: Parker Rangel MD, PhD Blood Venipuncture / Unknown 12/29/2022 11:00 AM EDT 12/29/2022 11:01 AM EDT Caleb Pacheco MD LAB BLOOD ORDERABLES Final Res ult Performing Organization Address [facility] de Phone Number [address] [phone] * (ABNORMAL) Immunoglobulin G(SENDOUT) (12/29/2022 11:00 AM EDT) Immunoglobulin G 433(L) 768 - 1632 mg/dL 01/04/2023 6:28 AM EDT [facility] Comment: REFERENCE INTERVAL: Immunoglobulin G Access complete set of age- and/or gender-specific reference intervals for this test in the [facility] Laboratory Test Directory (FAMOCO). Performed By: [facility] [address] [place] [address] Assistant Activities Director: Parker Rangel MD, PhD Blood Venipuncture / Unknown 12/29/2022 11:00 AM EDT 12/29/2022 11:01 AM EDT Caleb Pacheco MD LAB BLOOD ORDERABLES Final Res ult Performing Organization Address City/[facility] de Phone Number [facility] [address] [place], [place] [id number] [place] [address] * (ABNORMAL) BMP (done in hospital lab) (12/29/2022 11:00 AM EDT) Sodium 142 136 - 146 meq/L 12/29/2022 1:[address] [facility] Potassium 3.0(L) 3.5 - 5.1 meq/L 12/29/2022 1:[address] [facility] Chloride 109 102 - 112 meq/L 12/29/2022 1:[address] [facility] CO2 27 21 - 32 meq/L 12/29[facility]2022 1:04 [facility] Anion Gap 9 9 - 20 12/29/2022 1:04 PM [facility] BUN 12 7 - 22 mg/dL 12/29/2022 1:04 PM [facility] Creatinine 0.77 0.55 - 1.02 mg/dL 12/29/2022 1:04 PM [facility] BUN/Creatinine 16 8 - 20 12/29/2022 1:04 PM [facility] Glucose 91 74 - 106 mg/dL 12/29/2022 1:04 PM [facility] Calcium 9.0 8.4 - 10.1 mg/dL 12/29/2022 1:04 PM [facility] Osmolality Calc 282.5 3 1:04 PM [facility] eGFR (mL/min/1.73m2) >60 >=60 mL/min/1.7 3m2 12/29/2022 1:04 PM [facility] Comment:eGFR of <60 suggests chronic kidney disease if found over a 3 month period of time. eGFR <15 indicates renal failure. Blood Venipuncture / Unknown 12/29/2022 11:00 AM EDT 12/29/2022 11:31 AM EDT [facility] LAB[facility]ATORY - 12/29/2022 1:04 PM EDT As of 12-04-2022 date, reported eGFR is based on the CKD-EPI 2020 equation that does not use a race coefficient. Laboratory Report for eGFR of 45-59 mL/min/1.73m2- For eGFR of 45-59 mL/min/1.73m2, NKF KDOQI and KDIGO guidelines recommend one - time confirmation of eGFR calculated using both creatinine and cystatin C. Cystatin C is recommended in the outpatient patient setting for purposes of confirming chronic kidney disease, rather than in the acute setting for acute kidney injury or failure. us Caleb Pacheco MD LAB BLOOD ORDERABLES Final Res ult [facility] [address] [place] [address] * (ABNORMAL) CBC with Automated Diff (12/29/2022 11:00 AM EDT) WBC 2.5(L) 4.5 - 12.5 K/??L 12/29/2022 11:07 AM EDT [facility] RBC 3.29(L) 4.00 - 5.25 M/??L 12/29/2022 11:07 AM EDT [facility] Hemoglobin 11.1(L) 12.0 - 16.0 GM/DL 12/29/2022 11:07 AM EDT [facility] Hematocrit 35.6(L) 36.0 - 46.0 % 12/29/2022 11:07 AM EDT [facility] MCV 108(H) 80 - 100 fL 12/29/2022 11:07 AM EDT [facility] MCH 33.7 26.0 - 34.0 pg 12/29/2022 11:07 AM EDT [facility] MCHC 31.2 31.0 - 37.0 GM/DL 12/29/2022 11:07 AM EDT [facility] RDW 14.2 12.0 - 16.8 % 12/29/2022 11:07 AM EDT [facility] Platelets 143 140 - 440 K/CU MM 12/29/2022 11:07 AM EDT [facility] MPV 9.5 7.4 - 10.4 fL 12/29/2022 11:07 AM EDT [facility] % Neutros 37(L) 45 - 80 % 12/29/2022 11:07 AM EDT [facility] % Lymphs 36 15 - 45 % 12/29/2022 11:07 AM EDT [facility] % Monos 17(H) 0 - 10 % 12/29/2022 11:07 AM EDT [facility] % Eos 8(H) 0 - 5 % 12/29/2022 11:07 AM EDT [facility] % Baso 2 0 - 3 % 12/29/2022 11:07 AM EDT [facility] # Neutros 0.91(L) 2.00 - 8.80 K/??L 12/29/2022 11:07 AM EDT [facility] # Lymphs 0.88 0.70 - 5.50 K/??L 12/29/2022 11:07 AM EDT [facility] # Monos 0.42 0.00 - 1.70 K/??L 12/29/2022 11:07 AM EDT [facility] # Eos 0.20 0.00 - 0.80 K/??L 12/29/2022 11:07 AM EDT [facility] # Baso 0.04 0.00 - 0.20 K/??L 12/29/2022 11:07 AM EDT [facility] Blood Venipuncture / Unknown 12/29/2022 11:00 AM EDT 12/29/2022 11:01 AM EDT Narrative [facility] - 12/29/2022 11:07 AM EDT When CBC w/ Auto Diff [...] ORDERABLES Final Res ult [facility] [address] [place] [address], [facility] [phone] * (ABNORMAL) Protein Electrophoresis w Rflx to RALPH(SENDOUT) (12/29/2022 11:00 AM EDT) Total Protein, Serum 6.2(L) 6.3 - 8.2 g/dL 01/04/2023 6:[address] [facility] Albumin 3.17(L) 3.75 - 5.01 g/dL 01/04/2023 6:[address] [facility] Alpha 1 Globulin 0.37 0.19 - 0.46 g/dL 01/04/2023 6:[address] [facility] Alpha 2 Globulin 0.95 0.48 - 1.05 g/dL 01/04/2023 6:[address] [facility] Beta Globulin 1.26(H) 0.48 - 1.10 g/dL 01/04/2023 6:[address] [facility] Gamma 0.44(L) 0.62 - 1.51 g/dL 01/04/2023 6:[address] [facility] Immunofixation Reflex RALPH Done 01/04/2023 6:[address] [facility] Monoclonal Protein 0.91 g/dL 2022 6:[address] [facility] SPEP/RALPH Interpretation See Note 01/04/2023 6:[address] [facility] Comment: Monoclonal spike in the beta region. The quantitation may include complement and/or transferrin components. Measurement of total Immunoglobulin (IgA, IgG, or IgM) can be used for the quantitation of the monoclonal spike instead. ??Hypogammaglobluinemia. Restricted band of protein migration in the gamma region. RALPH gel pattern shows an IgA type lambda monoclonal protein with an additional band in IgG kappa. EER Serum Protein Electrophoresis Reflex See Note 01/04/2023 6:[address] [facility] Comment: Authorized individuals can access the [facility] Enhanced Report using the following link: [email or web address] Performed By: [facility] [address] [id number] Assistant Activities Director: Parker Rangel MD, PhD Blood Venipuncture / Unknown 12/29/2022 11:00 AM EDT 12/29/2022 11:01 AM EDT Caleb Pacheco MD LAB BLOOD ORDERABLES Final Res ult Performing Organization Address City/[facility]/ZIP Co de Phone Number [facility] [address] [place] [address], [facility] [phone] * [place]-Lambda Quant FLC with Ratio(SENDOUT) (12/29/2022 11:00 AM EDT) [place] Qnt Free Light Chains 12.68 3.30 - 19.40 mg/L 12/31/2022 4:43 PM EDT [facility] Comment: INTERPRETIVE INFORMATION: [place] Qnt Free Light Chains Undetected antigen excess is a rare event but cannot be excluded. Free light chain results should always be interpreted in conjunction with other clinical and laboratory findings. [place] Qnt Free Light Chains 17.30 5.71 - 26.30 mg/L 12/31/2022 4:43 PM EDT [facility] Comment: INTERPRETIVE INFORMATION: Lambda Qnt Free Light Chains Undetected antigen excess is a rare event but cannot be excluded. Free light chain results should always be interpreted in conjunction with other clinical and laboratory findings. [place]/Lambda Free Light Chain Ratio 0.73 0.26 - 1.65 12/31/2022 4:43 PM EDT [facility] Comment: Performed By: [facility] [address] [place] [address] Assistant Activities Director: Parker Rangel MD, PhD Blood ENTIRE LEFT UPPER ARM / Unknown Venipuncture / Unknown 12/29/2022 11:00 AM EDT 12/29/2022 11:01 AM EDT Caleb Pacheco MD LAB BLOOD ORDERABLES Final Res ult [address] [phone] documented in this encounter Visit Diagnoses Diagnosis Multiple myeloma, remission status unspecified (HCC) documented in this encounter
--- OUTSIDE RECORDS SUMMARY | 2024-08-03 17:03 | XMS_ITS | Encounter Summary ---
Author Organization [employer] Address [address] [place] [address] Care Team Providers Care Woodworking Machine Feeder Name Role Phone Unavailable Primary Care Provider Unavailabl e Reason for Visit * Reason Onset Date Comments Diarrhea 12/30/2022 Encounter Details Date Type Department Care Team (Late st Contact Info) Description 12/30/2022 Telephone [facility] - [place] [address] [address] Jennifer Ibarra RN Diarrhea Social History Tobacco Use Types Packs/Day Years [...] encounter Miscellaneous Notes * Telephone Encounter - Jennifer Ibarra RN - 12/30/2022 3:40 PM EDT Left voicemail for pt. That [facility] sent per Dr. Pacheco . * Telephone Encounter - Jennifer Ibarra RN - 12/30/2022 12:51 PM EDT Pt. Calling stating Dr. Pacheco was to send in diarrheal medication To [facility]. Can you please advise and thank you documented in this encounter Plan of Treatment Not on file documented as of this encounter Visit Diagnoses Not on filedocumented in this encounter
--- OUTSIDE RECORDS SUMMARY | 2024-08-03 17:03 | XMS_ITS | Encounter Summary ---
Author Organization [employer] Address [address] [place] [address] Care Team Providers Care Wheel And Axle Inspector Name Role Phone Unavailable Primary Care Provider Unavailabl e Encounter Details Date Type Department Care Team (Late st Contact Info) Description 01/11/2023 Orders Only [place] [facility] - [employer] [address] [place] [address] Caleb Pacheco MD [address] [facility] [address] [place] [address] Multiple myeloma without remission [...] PM EDT documented as of this encounter Plan of Treatment Not on file documented as of this encounter Results * (ABNORMAL) CBC with Automated Diff (02/16/2023 12:42 PM EDT) [facility] WBC 4.1(L) 4.5 - 12.5 K/??L 02/16/2023 12:53 PM EDT [facility] RBC 3.01(L) 4.00 - 5.25 M/??L 02/16/2023 12:53 PM EDT [facility] Hemoglobin 10.4(L) 12.0 - 16.0 GM/DL 02/16/2023 12:53 PM EDT [facility] Hematocrit 32.8(L) 36.0 - 46.0 % 02/16/2023 12:53 PM EDT [facility] MCV 109(H) 80 - 100 fL 02/16/2023 12:53 PM EDT [facility] MCH 34.6(H) 26.0 - 34.0 pg 02/16/2023 12:53 PM EDT [facility] MCHC 31.7 31.0 - 37.0 GM/DL 02/16/2023 12:53 PM EDT [facility] RDW 14.4 12.0 - 16.8 % 02/16/2023 12:53 PM EDT [facility] Platelets 164 140 - 440 K/CU MM 02/16/2023 12:53 PM EDT [facility] MPV 9.0 7.4 - 10.4 fL 02/16/2023 12:53 PM EDT [facility] % Neutros 36(L) 45 - 80 % 02/16/2023 12:53 PM EDT [facility] % Lymphs 42 15 - 45 % 02/16/2023 12:53 PM EDT [facility] % Monos 15(H) 0 - 10 % 02/16/2023 12:53 PM EDT [facility] % Eos 6(H) 0 - 5 % 02/16/2023 12:53 PM EDT [facility] % Baso 1 0 - 3 % 02/16/2023 12:53 PM EDT [facility] # Neutros 1.50(L) 2.00 - 8.80 K/??L 02/16/2023 12:53 PM EDT [facility] # Lymphs 1.73 0.70 - 5.50 K/??L 02/16/2023 12:53 PM EDT [facility] # Monos 0.63 0.00 - 1.70 K/??L 02/16/2023 12:53 PM EDT [facility] # Eos 0.23 0.00 - 0.80 K/??L 02/16/2023 12:53 PM EDT [facility] # Baso 0.05 0.00 - 0.20 K/??L 02/16/2023 12:53 PM EDT [facility] Blood ENTIRE LEFT UPPER ARM / Unknown Venipuncture / Unknown 02/16/2023 12:42 PM EDT 02/16/2023 12:47 PM EDT Narrative [facility] - 02/16/2023 12:53 PM EDT When CBC w/ Auto Diff [...] ORDERABLES Final Res ult [facility] [address] [place] [address], [facility] [phone] documented in this encounter Visit Diagnoses Diagnosis Multiple myeloma without remission (HCC)- Primary documented in this encounter
--- OUTSIDE RECORDS SUMMARY | 2024-08-03 17:03 | XMS_ITS | Encounter Summary ---
Author Organization [employer] Address [address] [place] [address] Care Team Providers Care Welding Foreman Name Role Phone Unavailable Primary Care Provider Unavailabl e Reason for Visit * Reason Comments Medication Refill Encounter Details Date Type Department Care Team (Late st Contact Info) Description 03/03/2023 Refill [place] [facility] - [place] [address] [facility] [address] [place] [address] Caleb Pacheco MD [address] [facility] [address] [place] [address] Social History Tobacco Use Types [...] Telephone Encounter - Nicki Thurston RN - 03/04/2023 4:43 PM EDT Received My chart request to refill Dexamethasone 4mg take 5 tablets on the morning of chemotherapy#30 3RF (last sent by SP on 10/20/22). Rn reviewed chart and pt was last seen on 03/02/23 and pt received Darzalex and was premedicated with Dexamethasone 20mg. Pt was to f/u in 1mo. Pt has next appt on 03/30/23. Rn refilled medication per medication refill protocol. documented in this encounter Plan of Treatment Not on file documented as of this encounter Visit Diagnoses Not on filedocumented in this encounter
--- OUTSIDE RECORDS SUMMARY | 2024-08-03 17:03 | XMS_ITS | Encounter Summary ---
Author Organization [employer] Address [address] [place] [address] Care Team Providers Care Board Design Engineer Name Role Phone Unavailable Primary Care Provider Unavailabl e Encounter Details Date Type Department Care Team (Late st Contact Info) Description 01/18/2023 Orders Only [place] [facility] - [email or web address] [address] [place] [address] Caleb Pacheco MD [address] [facility] [address] [place] [address] Multiple myeloma without remission [...] Results * (ABNORMAL) CBC with Automated Diff (01/19/2023 11:15 AM EDT) [facility] WBC 2.9(L) 4.5 - 12.5 K/??L 01/19/2023 11:25 AM EDT [facility] RBC 3.07(L) 4.00 - 5.25 M/??L 01/19/2023 11:25 AM EDT [facility] Hemoglobin 10.5(L) 12.0 - 16.0 GM/DL 01/19/2023 11:25 AM EDT [facility] Hematocrit 33.4(L) 36.0 - 46.0 % 01/19/2023 11:25 AM EDT [facility] MCV 109(H) 80 - 100 fL 01/19/2023 11:25 AM EDT [facility] MCH 34.2(H) 26.0 - 34.0 pg 01/19/2023 11:25 AM EDT [facility] MCHC 31.4 31.0 - 37.0 GM/DL 01/19/2023 11:25 AM EDT [facility] RDW 14.8 12.0 - 16.8 % 01/19/2023 11:25 AM EDT [facility] Platelets 141 140 - 440 K/CU MM 01/19/2023 11:25 AM EDT [facility] MPV 9.6 7.4 - 10.4 fL 01/19/2023 11:25 AM EDT [facility] % Neutros 17(L) 45 - 80 % 01/19/2023 11:25 AM EDT [facility] % Lymphs 55(H) 15 - 45 % 01/19/2023 11:25 AM EDT [facility] % Monos 20(H) 0 - 10 % 01/19/2023 11:25 AM EDT [facility] % Eos 7(H) 0 - 5 % 01/19/2023 11:25 AM EDT [facility] % Baso 1 0 - 3 % 01/19/2023 11:25 AM EDT [facility] # Neutros 0.49(L) 2.00 - 8.80 K/??L 01/19/2023 11:25 AM EDT [facility] # Lymphs 1.59 0.70 - 5.50 K/??L 01/19/2023 11:25 AM EDT [facility] # Monos 0.58 0.00 - 1.70 K/??L 01/19/2023 11:25 AM EDT [facility] # Eos 0.21 0.00 - 0.80 K/??L 01/19/2023 11:25 AM EDT [facility] # Baso 0.02 0.00 - 0.20 K/??L 01/19/2023 11:25 AM EDT [facility] Blood ENTIRE LEFT UPPER ARM / Unknown Venipuncture / Unknown 01/19/2023 11:15 AM EDT 01/19/2023 11:20 AM EDT Narrative [facility] - 01/19/2023 11:25 AM EDT When CBC w/ Auto Diff [...] Final Res ult [facility] [address] [employer] [address] [phone] documented in this encounter Visit Diagnoses Diagnosis Multiple myeloma without remission (HCC)- Primary documented in this encounter
--- OUTSIDE RECORDS SUMMARY | 2024-08-03 17:03 | XMS_ITS | Encounter Summary ---
Author Organization [employer] Address [address] [place] [address] Care Team Providers Care Train Operations Manager Name Role Phone Unavailable Primary Care Provider Unavailabl e Encounter Details Date Type Department Care Team (Latest Contact Info) Description 03/05/2023 Travel Social History Tobacco Use Types Packs/Day [...]
--- OUTSIDE RECORDS SUMMARY | 2024-08-03 17:03 | XMS_ITS | Encounter Summary ---
Author Organization [employer] Address [address] [place] [address] Care Team Providers Care Scalp Treatment Operator Name Role Phone Unavailable Primary Care Provider Unavailabl e Encounter Details Date Type Department Care Team (Latest Contact Info) Description 01/12/2023 9:45 AM EDT Lab Patient Walk-In [facility] - [employer] [address] [place] [address] Caleb Pacheco MD [facility] [facility] [address] [place] [address] Multiple myeloma without remission (HCC); Multiple myeloma, remission status unspecified (HCC) Social History Tobacco Use Types Packs/Day [...] Diagnosis Comments CBC W/ AUTO DIFF STAT 01/12/2023 10:0 2 AM EDT Multiple myeloma without remission (HCC) HEPATIC FUNCTION PANEL Routine 01/12/2023 10:02 AM EDT Multiple myeloma without remission (HCC) documented in this encounter Results * (ABNORMAL) Hepatic function panel (01/12/2023 10:02 AM EDT) Pathologist [facility] Protein, Total 6.3(L) 6.4 - 8.2 gm/dL 01/12/2023 6:49 PM [facility] Albumin 2.7(L) 3.4 - 5.0 g/dL 01/12/2023 6:49 PM [facility] Total Bilirubin 0.4 0.2 - 1.3 mg/dL 01/12/2023 6:49 PM [facility] Bilirubin, Direct <0.1 0.0 - 0.2 mg/dL 01/12/2023 6:49 PM [facility] Alkaline Phosphatase 59 27 - 136 U/L 01/12/2023 6:49 PM [facility] Globulin 3.6 1.5 - 4.5 g/dL 01/12/2023 6:49 PM [facility] A/G Ratio 0.8(L) 1.1 - 2.5 01/12/2023 6:49 PM [facility] AST 12 5 - 37 U/L 01/12/2023 6:49 PM [facility] Comment:[employer] has become aware of sulfasalazine and sulfapyridine [...] prior to administration of the drug. ALT 16 12 - 78 U/L 01/12/2023 6:49 PM [facility] Comment:[employer] has become aware of sulfasalazine and sulfapyridine [...] / Unknown 01/12/2023 10:02 AM EDT 01/12/2023 12:30 PM EDT us Caleb Pacheco MD LAB BLOOD ORDERABLES Final Res ult [facility] [address] [place] [address] * (ABNORMAL) CBC with Automated Diff (01/12/2023 10:02 AM EDT) WBC 2.3(L) 4.5 - 12.5 K/??L 01/12/2023 10:11 AM EDT [facility] RBC 3.04(L) 4.00 - 5.25 M/??L 01/12/2023 10:11 AM EDT [facility] Hemoglobin 10.2(L) 12.0 - 16.0 GM/DL 01/12/2023 10:11 AM EDT [facility] Hematocrit 32.7(L) 36.0 - 46.0 % 01/12/2023 10:11 AM EDT [facility] MCV 108(H) 80 - 100 fL 01/12/2023 10:11 AM EDT [facility] MCH 33.6 26.0 - 34.0 pg 01/12/2023 10:11 AM EDT [facility] MCHC 31.2 31.0 - 37.0 GM/DL 01/12/2023 10:11 AM EDT [facility] RDW 14.2 12.0 - 16.8 % 01/12/2023 10:11 AM EDT [facility] Platelets 160 140 - 440 K/CU MM 01/12/2023 10:11 AM EDT [facility] MPV 9.6 7.4 - 10.4 fL 01/12/2023 10:11 AM EDT [facility] % Neutros 45 45 - 80 % 01/12/2023 10:11 AM EDT [facility] % Lymphs 36 15 - 45 % 01/12/2023 10:11 AM EDT [facility] % Monos 12(H) 0 - 10 % 01/12/2023 10:11 AM EDT [facility] % Eos 6(H) 0 - 5 % 01/12/2023 10:11 AM EDT [facility] % Baso 1 0 - 3 % 01/12/2023 10:11 AM EDT [facility] # Neutros 1.02(L) 2.00 - 8.80 K/??L 01/12/2023 10:11 AM EDT [facility] # Lymphs 0.81 0.70 - 5.50 K/??L 01/12/2023 10:11 AM EDT [facility] # Monos 0.27 0.00 - 1.70 K/??L 01/12/2023 10:11 AM EDT [facility] # Eos 0.13 0.00 - 0.80 K/??L 01/12/2023 10:11 AM EDT [facility] # Baso 0.02 0.00 - 0.20 K/??L 01/12/2023 10:11 AM EDT [facility] Blood ENTIRE LEFT UPPER ARM / Unknown Venipuncture / Unknown 01/12/2023 10:02 AM EDT 01/12/2023 10:07 AM EDT Narrative [facility] - 01/12/2023 10:11 AM EDT When CBC w/ Auto Diff [...] Final Res ult [facility] [address] [place] [address], [facility] [phone] documented in this encounter Visit Diagnoses Diagnosis Multiple myeloma, remission status unspecified (HCC) documented in this encounter
--- OUTSIDE RECORDS SUMMARY | 2024-08-03 17:03 | XMS_ITS | Encounter Summary ---
Author Organization [employer] Address [address] [place] [address] Care Team Providers Care Olap Developer Name Role Phone Unavailable Primary Care Provider Unavailabl e Reason for Visit * Reason Comments Follow-up Here for f/u - Darza salima injection. Encounter Details Date Type Department Care Team (Late st Contact Info) Description 01/19/2023 11:30 AM EDT Office Visit [facility] [address] [place] [address] Raimundo Pacheco MD [address] [facility] [address] [place] [address] Multiple myeloma without remission (HCC) [...] Sign Reading Time Taken Comments Blood Pressure 140/70 01/19/2023 11:22 AM EDT Pulse 62 01/19/2023 11:22 AM EDT Temperature - - Respiratory Rate 19 01/19/2023 11:22 AM EDT Oxygen Saturation 99% 01/19/2023 11:22 AM EDT Inhaled Oxygen Concentration - - Weight - - Height - - Body Mass Index - - documented in this encounter Progress Notes * Raimundo Pacheco MD - 01/19/2023 11:30 AM EDT Chief Complaint: History of Present Illness: Francy Bailey is a 62 y.o. female who presents today for follow up of multiple myeloma. She is on Darzalex pomalidomide and dexamethasone. She was here today for her eighth dose of Darzalex. Her bone pain seems to be somewhat less. Her performance status is stable. She denies other additional complaints or problems Past Medical History: Diagnosis Date ??? Asthma [...] Treatment Summary Treatment goal Palliative Plan Name [facility] Multiple Myeloma - daratumumab (Darzalex) IV d1,8,15,22 fb D1,15 fb d1 + pomalidomide(Pomalyst) PO d1-21 every 28 days Status Active Start Date 11/03/2022 End Date 10/05/2023 (Planned) Provider Raimundo Pacheco MD Chemotherapy pomalidomide 4 mg Cap, 4 mg, Oral, Daily, 1 of 1 cycle, Start date: --, End date: -- dpgsvawemhd-mktlawharjfhl-twyx (DARZALEX FASPRO) 1,800 mg-30,000 unit/15 mL subcutaneous injection 1,800 mg, 1,800 mg, Subcutaneous, Once, 2 of 12 cycles Administration: 1,800 mg (11/03/2022), 1,800 mg (11/10/2022), 1,800 mg (12/01/2022), 1,800 mg (12/15/2022), 1,800 mg (12/22/2022), 1,800 mg (01/12/2023), 1,800 mg (12/29/2022) Allergies: Ampicillin, Codeine, Indomethacin, Morphine, and Penicillin [...] needed. ??? dexAMETHasone (DECADRON) 4 MG tablet Take 5 pills the morning of chemotherapy once a week. 30 tablet 3 ??? ergocalciferol (ERGOCALCIFEROL) 1,250 mcg (50,000 [...] mouth 4 (four) times daily as needed. ??? metoprolol succinate (TOPROL-XL) 25 MG 24 [...] Strp 2 (two) times daily. ??? oxyCODONE (ROXICODONE) 5 MG immediate release tablet Take 1 tablet (5 mg total) by mouth every 4 (four) hours as needed for Pain for up to 30 days. Max Daily Amount: 30 mg 30 tablet 0 ??? PARoxetine (PAXIL) 30 MG tablet Take 1 tablet (30 mg total) by mouth in the morning. ??? Pomalyst 2 mg Cap Take by mouth. ??? potassium chloride SA (K-DUR,KLOR-CON-M) 20 MEQ [...] (two) times daily. 20 tablet 0 ??? Tab-A-Aveyr 400 mcg Tab Take 1 tablet by mouth in the morning. ??? traMADoL (ULTRAM) 50 mg tablet Take 1 tablet (50 mg total) by mouth. ??? Xarelto 20 mg tablet SMARTSI Tablet(s) By Mouth Every Evening No current facility-administered medications on file prior to visit. Review of Systems: Review of Systems All other systems reviewed and are negative. Vitals: Vitals: 01/19/23 1122 BP: (!) 140/70 Pulse: 62 Resp: 19 SpO2: 99% Physical Exam: Physical Exam Vitals reviewed. Constitutional: [...] of motion and neck supple. Comments: Subjective lower back pain Neurological: General: No focal deficit present. Mental Status: She is alert. Relevant Results: Clinical Support on 01/19/2023 Component Date Value Ref Range Status ??? WBC 01/19/2023 2.9 (L) 4.5 - 12.5 K/??L Final ??? RBC 01/19/2023 3.07 (L) 4.00 - 5.25 M/??L Final ??? Hemoglobin 01/19/2023 10.5 (L) 12.0 - 16.0 GM/DL Final ??? Hematocrit 01/19/2023 33.4 (L) 36.0 - 46.0 % Final ??? MCV 01/19/2023 109 (H) 80 - 100 fL Final ??? MCH 01/19/2023 34.2 (H) 26.0 - 34.0 pg Final ??? MCHC 01/19/2023 31.4 31.0 - 37.0 GM/DL Final ??? RDW 01/19/2023 14.8 12.0 - 16.8 % Final ??? Platelets 01/19/2023 141 140 - 440 K/CU MM Final ??? MPV 01/19/2023 9.6 7.4 - 10.4 fL Final ??? % Neutros 01/19/2023 17 (L) 45 - 80 % Final ??? % Lymphs 01/19/2023 55 (H) 15 - 45 % Final ??? % Monos 01/19/2023 20 (H) 0 - 10 % Final ??? % Eos 01/19/2023 7 (H) 0 - 5 % Final ??? % Baso 01/19/2023 1 0 - 3 % Final ??? # Neutros 01/19/2023 0.49 (L) 2.00 - 8.80 K/??L Final ??? # Lymphs 01/19/2023 1.59 0.70 - 5.50 K/??L Final ??? # Monos 01/19/2023 0.58 0.00 - 1.70 K/??L Final ??? # Eos 01/19/2023 0.21 0.00 - 0.80 K/??L Final ??? # Baso 01/19/2023 0.02 0.00 - 0.20 K/??L Final ??? Sodium 01/19/2023 142 136 - 146 meq/L Final ??? Potassium 01/19/2023 3.4 (L) 3.5 - 5.1 meq/L Final ??? Chloride 01/19/2023 110 102 - 112 meq/L Final ??? CO2 01/19/2023 25 21 - 32 meq/L Final ??? Anion Gap 01/19/2023 10 9 - 20 Final ??? BUN 01/19/2023 14 7 - 22 mg/dL Final ??? Creatinine 01/19/2023 0.81 0.55 - 1.02 mg/dL Final ??? BUN/Creatinine 01/19/2023 17 8 - 20 Final ??? Glucose 01/19/2023 88 74 - 106 mg/dL Final ??? Calcium 01/19/2023 8.5 8.4 - 10.1 mg/dL Final ??? Osmolality Calc 01/19/2023 283.0 Final ? ? eGFR (mL/min/1.73m2) 01/19/2023 >60 >=60 mL/min/1.73m2 Final eGFR of <60 suggests chronic kidney disease if found over a 3 month period of time. eGFR <15 indicates renal failure. Clinical Support on 01/12/2023 Component Date Value Ref Range Status ??? WBC 01/12/2023 2.3 (L) 4.5 - 12.5 K/??L Final ??? RBC 01/12/2023 3.04 (L) 4.00 - 5.25 M/??L Final ??? Hemoglobin 01/12/2023 10.2 (L) 12.0 - 16.0 GM/DL Final ??? Hematocrit 01/12/2023 32.7 (L) 36.0 - 46.0 % Final ??? MCV 01/12/2023 108 (H) 80 - 100 fL Final ??? MCH 01/12/2023 33.6 26.0 - 34.0 pg Final ??? MCHC 01/12/2023 31.2 31.0 - 37.0 GM/DL Final ??? RDW 01/12/2023 14.2 12.0 - 16.8 % Final ??? Platelets 01/12/2023 160 140 - 440 K/CU MM Final ??? MPV 01/12/2023 9.6 7.4 - 10.4 fL Final ??? % Neutros 01/12/2023 45 45 - 80 % Final ??? % Lymphs 01/12/2023 36 15 - 45 % Final ??? % Monos 01/12/2023 12 (H) 0 - 10 % Final ??? % Eos 01/12/2023 6 (H) 0 - 5 % Final ??? % Baso 01/12/2023 1 0 - 3 % Final ??? # Neutros 01/12/2023 1.02 (L) 2.00 - 8.80 K/??L Final ??? # Lymphs 01/12/2023 0.81 0.70 - 5.50 K/??L Final ??? # Monos 01/12/2023 0.27 0.00 - 1.70 K/??L Final ??? # Eos 01/12/2023 0.13 0.00 - 0.80 K/??L Final ??? # Baso 01/12/2023 0.02 0.00 - 0.20 K/??L Final ??? Protein, Total 01/12/2023 6.3 (L) 6.4 - 8.2 gm/dL Final ??? Albumin 01/12/2023 2.7 (L) 3.4 - 5.0 g/dL Final ??? Total Bilirubin 01/12/2023 0.4 0.2 - 1.3 mg/dL Final ? ? Bilirubin, Direct 01/12/2023 <0.1 0.0 - 0.2 mg/dL Final ??? Alkaline Phosphatase 01/12/2023 59 27 - 136 U/L Final ??? Globulin 01/12/2023 3.6 1.5 - 4.5 g/dL Final ??? A/G Ratio 01/12/2023 0.8 (L) 1.1 - 2.5 Final ??? AST 01/12/2023 12 5 - 37 U/L Final [employer] has become aware of sulfasalazine and sulfapyridine [...] to administration of the drug. ??? ALT 01/12/2023 16 12 - 78 U/L Final [employer] has become aware of sulfasalazine and sulfapyridine [...] was found for the patient. Plan: Her absolute neutrophil count is only 490. I would have her get Granix today at 480 mcg. We will see what her blood count is tomorrow and if it is appropriate go ahead with the Darzalex then. If she is still low we will give another dose of Granix and think about the Darzalex on . I also held her pomalidomide right now she is in the second week of this. I placed her on Bactrim DS tostart today. I have answered her questions Signed: Electronically signed by RAIMUNDO PACHECO MD 01/19/23 1:26 PM EDT No primary care provider on file. documented in this encounter Plan of Treatment Not on file documented as of this encounter Results * (ABNORMAL) CBC with automated diff (01/20/2023 8:47 AM EDT) Pathologist [facility] WBC 4.8 4.5 - 12.5 K/??L 01/20/2023 8:54 AM EDT [facility] RBC 3.29(L) 4.00 - 5.25 M/??L 01/20/2023 8:54 AM EDT [facility] Hemoglobin 11.1(L) 12.0 - 16.0 GM/DL 01/20/2023 8:54 AM EDT [facility] Hematocrit 35.9(L) 36.0 - 46.0 % 01/20/2023 8:54 AM EDT [facility] MCV 109(H) 80 - 100 fL 01/20/2023 8:54 AM EDT [facility] MCH 33.7 26.0 - 34.0 pg 01/20/2023 8:54 AM EDT [facility] MCHC 30.9(L) 31.0 - 37.0 GM/DL 01/20/2023 8:54 AM EDT [facility] RDW 15.0 12.0 - 16.8 % 01/20/2023 8:54 AM EDT [facility] Platelets 140 140 - 440 K/CU MM 01/20/2023 8:54 AM EDT [facility] MPV 9.9 7.4 - 10.4 fL 01/20/2023 8:54 AM EDT [facility] % Neutros 36(L) 45 - 80 % 01/20/2023 8:54 AM EDT [facility] % Lymphs 40 15 - 45 % 01/20/2023 8:54 AM EDT [facility] % Monos 17(H) 0 - 10 % 01/20/2023 8:54 AM EDT [facility] % Eos 6(H) 0 - 5 % 01/20/2023 8:54 AM EDT [facility] % Baso 1 0 - 3 % 01/20/2023 8:54 AM EDT [facility] # Neutros 1.75(L) 2.00 - 8.80 K/??L 01/20/2023 8:54 AM EDT [facility] # Lymphs 1.95 0.70 - 5.50 K/??L 01/20/2023 8:54 AM EDT [facility] # Monos 0.81 0.00 - 1.70 K/??L 01/20/2023 8:54 AM EDT [facility] # Eos 0.29 0.00 - 0.80 K/??L 01/20/2023 8:54 AM EDT [facility] # Baso 0.04 0.00 - 0.20 K/??L 01/20/2023 8:54 AM EDT [facility] Blood ENTIRE LEFT UPPER ARM / Unknown Venipuncture / Unknown 01/20/2023 8:47 AM EDT 01/20/2023 8:50 AM EDT Narrative [facility] - 01/20/2023 8:54 AM EDT When CBC w/ Auto Diff [...] ult [facility] [address] [phone] documented in this encounter Visit Diagnoses Diagnosis Multiple myeloma without remission (HCC)- Primary documented in this encounter
--- OUTSIDE RECORDS SUMMARY | 2024-08-03 17:03 | XMS_ITS | Encounter Summary ---
Author Organization [employer] Address [address] [place] [address] Care Team Providers Care Darklight Inspector Name Role Phone Unavailable Primary Care Provider Unavailabl e Encounter Details Date Type Department Care Team (Latest Contact Info) Description 01/19/2023 11:15 AM EDT Lab Patient Walk-In [facility] - [employer] [address] [place] [address] Caleb Pacheco MD [facility] [address] [place] [address] Multiple myeloma without remission (HCC) [...] Diagnosis Comments CBC W/ AUTO DIFF STAT 01/19/2023 11:1 5 AM EDT Multiple myeloma without remission (HCC) BASIC METABOLIC PANEL STAT 01/19/2023 11:15 AM EDT Multiple myeloma without remission (HCC) documented in this encounter Results * (ABNORMAL) Basic Metabolic Panel (01/19/2023 11:15 AM EDT) Sodium 142 136 - 146 meq/L 01/19/2023 12:03 PM [facility] Potassium 3.4(L) 3.5 - 5.1 meq/L 01/19/2023 12:03 PM [facility] Chloride 110 102 - 112 meq/L 01/19/2023 12:03 PM [facility] CO2 25 21 - 32 meq/L 01/19/2023 12:03 PM [facility] Anion Gap 10 9 - 20 01/19/2023 12:03 PM [facility] BUN 14 7 - 22 mg/dL 01/19/2023 12:03 PM [facility] Creatinine 0.81 0.55 - 1.02 mg/dL 01/19/2023 12:03 PM [facility] BUN/Creatinine 17 8 - 20 01/19/2023 12:03 PM [facility] Glucose 88 74 - 106 mg/dL 01/19/2023 12:03 PM [facility] Calcium 8.5 8.4 - 10.1 mg/dL 01/19/2023 12:03 PM [facility] Osmolality Calc 283.0 12:03 PM [facility] eGFR (mL/min/1.73m2) >60 >=60 mL/min/1.7 3m2 01/19/2023 12:03 PM [facility] Comment:eGFR of <60 suggests chronic kidney disease if found over a 3 month period of time. eGFR <15 indicates renal failure. Blood ENTIRE LEFT UPPER ARM / Unknown Venipuncture / Unknown 01/19/2023 11:15 AM EDT 01/19/2023 11:20 AM EDT Narrative [facility] - 01/19/2023 12:03 PM EDT As of 12-04-2022 date, reported [...] MD LAB BLOOD ORDERABLES Final Res ult [facility] [address] [place], [place] [id number], [facility] [phone] * (ABNORMAL) CBC with Automated Diff (01/19/2023 11:15 AM EDT) WBC 2.9(L) 4.5 - 12.5 K/??L 01/19/2023 11:25 AM EDT [facility] RBC 3.07(L) 4.00 - 5.25 M/??L 01/19/2023 11:25 AM EDT [facility] Hemoglobin 10.5(L) 12.0 - 16.0 GM/DL 01/19/2023 11:25 AM EDT [facility] Hematocrit 33.4(L) 36.0 - 46.0 % 01/19/2023 11:25 AM EDT [facility] MCV 109(H) 80 - 100 fL 01/19/2023 11:25 AM EDT [facility] MCH 34.2(H) 26.0 - 34.0 pg 01/19/2023 11:25 AM EDT [facility] MCHC 31.4 31.0 - 37.0 GM/DL 01/19/2023 11:25 AM EDT [facility] RDW 14.8 12.0 - 16.8 % 01/19/2023 11:25 AM EDT [facility] Platelets 141 140 - 440 K/CU MM 01/19/2023 11:25 AM EDT [facility] MPV 9.6 7.4 - 10.4 fL 01/19/2023 11:25 AM EDT [facility] % Neutros 17(L) 45 - 80 % 01/19/2023 11:25 AM EDT [facility] % Lymphs 55(H) 15 - 45 % 01/19/2023 11:25 AM EDT [facility] % Monos 20(H) 0 - 10 % 01/19/2023 11:25 AM EDT [facility] % Eos 7(H) 0 - 5 % 01/19/2023 11:25 AM EDT [facility] % Baso 1 0 - 3 % 01/19/2023 11:25 AM EDT [facility] # Neutros 0.49(L) 2.00 - 8.80 K/??L 01/19/2023 11:25 AM EDT [facility] # Lymphs 1.59 0.70 - 5.50 K/??L 01/19/2023 11:25 AM EDT [facility] # Monos 0.58 0.00 - 1.70 K/??L 01/19/2023 11:25 AM EDT [facility] # Eos 0.21 0.00 - 0.80 K/??L 01/19/2023 11:25 AM EDT [facility] # Baso 0.02 0.00 - 0.20 K/??L 01/19/2023 11:25 AM EDT [facility] Blood ENTIRE LEFT UPPER ARM / Unknown Venipuncture / Unknown 01/19/2023 11:15 AM EDT 01/19/2023 11:20 AM EDT [facility] - 01/19/2023 [...] ORDERABLES Final Res ult [facility] - [facility] [employer] [address] [phone] documented in this encounter Visit Diagnoses Diagnosis Multiple myeloma without remission (HCC) documented in this encounter
--- OUTSIDE RECORDS SUMMARY | 2024-08-03 17:03 | XMS_ITS | Encounter Summary ---
Author Organization [employer] Address [address] [place] [address] Care Team Providers Care Shuttle Fitting Supervisor Name Role Phone Unavailable Primary Care Provider Unavailabl e Encounter Details Date Type Department Care Team (Late st Contact Info) Description 02/12/2023 Orders Only [facility] - [facility] [address] [place] [address] Caleb Pacheco MD [address] [facility] [address] [place] [address] Multiple myeloma without remission (HCC) [...]
--- OUTSIDE RECORDS SUMMARY | 2024-08-03 17:03 | XMS_ITS | Encounter Summary ---
Author Organization [employer] Address [address] [place] [address] Care Team Providers Care Storekeeper Helper Name Role Phone Unavailable Primary Care Provider Unavailabl e Encounter Details Date Type Department Care Team (Late st Contact Info) Description 01/12/2023 10:00 AM EDT Office Visit [facility] [address] [facility] [address] [place] [address] Raimundo Pacheco MD [address] [place] [address] [address] [place] [address] Multiple myeloma without remission (HCC) (Primary Dx); Multiple myeloma, remission status unspecified (HCC) Social [...] PM EDT documented as of this encounter Progress Notes * Raimundo Pacheco MD - 01/12/2023 10:00 AM EDT Chief Complaint: History of Present Illness: Francy Bailey is a 62 y.o. female who presents today for follow up of multiple myeloma. She is on Darzalex and pomalidomide. She often has low blood counts we have had to stop therapy at a time. She has had about a 50% improvement in her M spike. She still has lower back pain. She has maintained her weight. She has had no neurologic symptoms in her feet or hands. No change in her bowel habits. Past Medical History: Diagnosis Date ??? Asthma ??? 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 Chronic low back pain ??? DVT [...] Treatment Summary Treatment goal Palliative Plan Name [facility] Multiple Myeloma - daratumumab (Darzalex) IV d1,8,15,22 fb D1,15 fb d1 + pomalidomide(Pomalyst) PO d1-21 every 28 days Status Active Start Date 11/03/2022 End Date 10/05/2023 (Planned) Provider Raimundo Pacheco MD Chemotherapy pomalidomide 4 mg Cap, 4 mg, Oral, Daily, 1 of 1 cycle, Start date: --, End date: -- hetwjcqxakd-irvlszcyfwypq-oubr (DARZALEX FASPRO) 1,800 mg-30,000 unit/15 mL subcutaneous [...] strips Strp 2 (two) times daily. ??? PARoxetine (PAXIL) 30 MG tablet [...] By Mouth Every Evening ??? [DISCONTINUED] oxyCODONE (ROXICODONE) 5 MG immediate release tablet Take 1 tablet (5 mg total) by mouth every 4 (four) hours as needed for Pain for up to 30 days. Max Daily Amount: 30 mg 30 tablet 0 No current facility-administered medications on file prior to visit. Review of Systems: Review of Systems All other systems reviewed and are negative. Vitals: There were no vitals filed for this visit. Physical Exam: Physical Exam Vitals reviewed. HENT: Head: Normocephalic. Mouth/Throat: Mouth: Mucous membranes [...] and neck supple. Comments: Subjective lower back discomfort Neurological: General: No focal deficit present. Mental Status: She is alert. Relevant Results: Clinical Support on 01/12/2023 Component Date Value [...] 01/12/2023 0.02 0.00 - 0.20 K/??L Final Clinical Support on 12/29/2022 Component Date Value Ref Range Status ??? [place] Qnt Free Light Chains 12/29/2022 12.68 3.30 - 19.40 mg/L Final INTERPRETIVE INFORMATION: [place] Qnt Free Light Chains Undetected antigen excess is a rare event but cannot be excluded. Free light chain results should always be interpreted in conjunction with other clinical and laboratory findings. ??? Lambda Qnt Free Light Chains 12/29/2022 17.30 5.71 - 26.30 mg/L Final INTERPRETIVE INFORMATION: Lambda Qnt Free Light Chains Undetected antigen excess is a rare event but cannot be excluded. Free light chain results should always be interpreted in conjunction with other clinical and laboratory findings. ??? [place]/Lambda Free Light Chain Ratio 12/29/2022 0.73 0.26 - 1.65 Final Performed By: [facility] [address] [place] [address] Carpenter Supervisor [employer]en [employer]: Parker Rangel MD, PhD ??? Total Protein, Serum 12/29/2022 6.2 (L) 6.3 - 8.2 g/dL Final ??? Albumin 12/29/2022 3.17 (L) 3.75 - 5.01 g/dL Final ??? Alpha 1 Globulin 12/29/2022 0.37 0.19 - 0.46 g/dL Final ??? Alpha 2 Globulin 12/29/2022 0.95 0.48 - 1.05 g/dL Final ??? Beta Globulin 12/29/2022 1.26 (H) 0.48 - 1.10 g/dL Final ??? Gamma 12/29/2022 0.44 (L) 0.62 - 1.51 g/dL Final ??? Immunofixation Reflex 12/29/2022 RALPH Done Final ??? Monoclonal Protein 12/29/2022 0.91 g/dL Final ??? SPEP/RALPH Interpretation 12/29/2022 See Note Final Monoclonal spike in the beta region. The quantitation may include complement and/or transferrin components. Measurement of total Immunoglobulin (IgA, IgG, or IgM) can be used for the quantitation of the monoclonal spike instead. Hypogammaglobluinemia. Restricted band of protein migration in the gamma region. RALPH gel pattern shows an IgA type lambda monoclonal protein with an additional band in IgG kappa. ??? EER Serum Protein Electrophoresis * 12/29/2022 See Note Final Authorized individuals can access the [facility] Enhanced Report using the following link: [email or web address] Performed By: [facility] [address] [place] [address] Carpenter Supervisor [employer]en [employer]: Parker Rangel MD, PhD ??? WBC 12/29/2022 2.5 (L) 4.5 - 12.5 K/??L Final ??? RBC 12/29/2022 3.29 (L) 4.00 - 5.25 M/??L Final ??? Hemoglobin 12/29/2022 11.1 (L) 12.0 - 16.0 GM/DL Final ??? Hematocrit 12/29/2022 35.6 (L) 36.0 - 46.0 % Final ??? MCV 12/29/2022 108 (H) 80 - 100 fL Final ??? MCH 12/29/2022 33.7 26.0 - 34.0 pg Final ??? MCHC 12/29/2022 31.2 31.0 - 37.0 GM/DL Final ??? RDW 12/29/2022 14.2 12.0 - 16.8 % Final ??? Platelets 12/29/2022 143 140 - 440 K/CU MM Final ??? MPV 12/29/2022 9.5 7.4 - 10.4 fL Final ??? % Neutros 12/29/2022 37 (L) 45 - 80 % Final ??? % Lymphs 12/29/2022 36 15 - 45 % Final ??? % Monos 12/29/2022 17 (H) 0 - 10 % Final ??? % Eos 12/29/2022 8 (H) 0 - 5 % Final ??? % Baso 12/29/2022 2 0 - 3 % Final ??? # Neutros 12/29/2022 0.91 (L) 2.00 - 8.80 K/??L Final ??? # Lymphs 12/29/2022 0.88 0.70 - 5.50 K/??L Final ??? # Monos 12/29/2022 0.42 0.00 - 1.70 K/??L Final ??? # Eos 12/29/2022 0.20 0.00 - 0.80 K/??L Final ??? # Baso 12/29/2022 0.04 0.00 - 0.20 K/??L Final ??? Sodium 12/29/2022 142 136 - 146 meq/L Final ??? Potassium 12/29/2022 3.0 (L) 3.5 - 5.1 meq/L Final ??? Chloride 12/29/2022 109 102 - 112 meq/L Final ??? CO2 12/29/2022 27 21 - 32 meq/L Final ??? Anion Gap 12/29/2022 9 9 - 20 Final ??? BUN 12/29/2022 12 7 - 22 mg/dL Final ??? Creatinine 12/29/2022 0.77 0.55 - 1.02 mg/dL Final ??? BUN/Creatinine 12/29/2022 16 8 - 20 Final ??? Glucose 12/29/2022 91 74 - 106 mg/dL Final ??? Calcium 12/29/2022 9.0 8.4 - 10.1 mg/dL Final ??? Osmolality Calc 12/29/2022 282.5 Final ? ? eGFR (mL/min/1.73m2) 12/29/2022 >60 >=60 mL/min/1.73m2 Final eGFR of <60 suggests chronic kidney disease if found over a 3 month period of time. eGFR <15 indicates renal failure. ??? Immunoglobulin G 12/29/2022 433 (L) 768 - 1632 mg/dL Final REFERENCE INTERVAL: Immunoglobulin G Access complete set of age- and/or gender-specific reference intervals for this test in the [facility] Test Directory ([employer]). Performed By: [facility] [address] [place] [address] Carpenter Supervisor [employer]: Parker Rangel MD, PhD ??? Immunoglobulin M 12/29/2022 33 (L) 35 - 263 mg/dL Final REFERENCE INTERVAL: Immunoglobulin M Access complete set of age- and/or gender-specific reference intervals for this test in the [facility] Test Directory ([employer]). Performed By: [facility] [address] [place] [address] Carpenter Supervisor [employer]: Parker Rangel MD, PhD ??? Immunoglobulin A 12/29/2022 534 (H) 68 - 408 mg/dL Final REFERENCE INTERVAL: Immunoglobulin A Access complete set of age- and/or gender-specific reference intervals for this test in the [facility] Test Directory ([employer]). Performed By: [facility] [address] [place] [address] Carpenter Supervisor [employer]: Parker Rangel MD, PhD ??? [employer] Electrophoresis Bill 12/29/2022 Billed Final Performed By: [facility] [address] [place] [address] Carpenter Supervisor [employer]: Parker Rangel MD, PhD No results found. Cancer Staging No matching staging information was found for the patient. Plan: I renewed her oxycodone today. I did have her receive her Darzalex this would be weeks 7 today at 1800 mg subcutaneously with premedications of dexamethasone 20 Zofran 8 Tylenol 650. She will return to see me in a week and then I will potentially end her weekly dosing of Darzalex. She continue to take the pomalidomide. I reviewed with her her kappa lambda ratio and electrophoresis today which has been stable. I have answered her questions. Signed: Electronically signed by RAIMUNDO PACHECO MD 01/12/23 4:49 PM EDT No primary care provider on file. documented in this encounter Plan of Treatment Not on file documented as of this encounter Visit Diagnoses Diagnosis Multiple myeloma without remission (HCC)- Primary Multiple myeloma, remission status unspecified (HCC) documented in this encounter
--- OUTSIDE RECORDS SUMMARY | 2024-08-03 17:03 | XMS_ITS | Encounter Summary ---
Author Organization [employer] Address [address] [place] [address] Care Team Providers Care Hearing Therapist Name Role Phone Unavailable Primary Care Provider Unavailabl e Reason for Visit * Reason Comments Injections Granix * Episode Based Medication (Routine) - Closed Specialty Diagnoses / Procedures Referred By Ana Paula anne Referred To Contact Diagnoses Multiple myeloma without remission (HCC) Procedures CT INJECTION, ZARXIO Zarxio/ [id number] Caleb Pacheco MD [address] [place] [address] Phone: tel: fax: [facility] [address] [place] [phone] Phone: tel: fax: Referral ID Status Reason Start Date Expiration Date Visits Re quested Visits Authorized [id number] Closed 01/19/2023 09/19/2024 1 99 Encounter Details Date Type Department Care Team (Late st Contact Info) Description 01/19/2023 11:45 AM EDT Infusion [facility] - [facility] [address] [place] [address] Caleb Pacheco MD [address] [place] [address] Multiple myeloma without remission (HCC) [...] Progress Notes * Kandi Ford RN - 01/19/2023 11:45 AM EDT Tolerated injection well documented in this encounter Plan of Treatment Not on file documented as of this encounter Visit Diagnoses Diagnosis Multiple myeloma without remission (HCC)- Primary documented in this encounter Administered Medications Inactive Administered Medications - up to 3 most recent administrations Medication Order MAR Action Action Date Dose Rate Site filgrastim-sndz (ZARXIO) injection 480 mcg 480 mcg Once, subcutaneous, On Wed01/19/23 at 1230, For 1 dose, ZARXIO TERTIARY AGENT Contact MD to consider discontinuation if ANC > 2,000/mL or WBC > 5,000/mL. 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
--- OUTSIDE RECORDS SUMMARY | 2024-08-03 17:03 | XMS_ITS | Encounter Summary ---
Author Organization [employer] Address [address] [place] [address] Care Team Providers Care Toxicology Teacher Name Role Phone Unavailable Primary Care Provider Unavailabl e Reason for Visit * Reason Comments Follow-up 2 week appointment - injection Encounter Details Date Type Department Care Team (Late st Contact Info) Description 02/16/2023 12:15 PM EDT Office Visit [facility] - [address] [facility] [address] [place] [address] Raimundo Pacheco MD [facility] [facility] [address] [place] [address] Multiple myeloma without remission (HCC) [...] Sign Reading Time Taken Comments Blood Pressure 113/56 02/16/2023 1:19 PM EDT Pulse 69 02/16/2023 1:19 PM EDT Temperature - - Respiratory Rate 18 02/16/2023 1:19 PM EDT Oxygen Saturation 99% 02/16/2023 1:19 PM EDT Inhaled Oxygen Concentration - - Weight - - Height - - Body Mass Index - - documented in this encounter Progress Notes * Raimundo Pacheco MD - 02/16/2023 12:15 PM EDT Chief Complaint: History of Present Illness: Francy Bailey is a 62 y.o. female who presents today for follow up of multiple myeloma. She is on pomalidomide Darzalex and dexamethasone. She has less back pain. She has not lost any weight. She has had no allergic reactions with the Darzalex. Past Medical History: Diagnosis Date ??? Asthma [...] Treatment Summary Treatment goal Palliative Plan Name [facility] Multiple Myeloma - daratumumab (Darzalex) IV d1,8,15,22 fb D1,15 fb d1 + pomalidomide(Pomalyst) PO d1-21 every 28 days Status Active Start Date 11/03/2022 End Date 10/12/2023 (Planned) Provider Raimundo Pacheco MD Chemotherapy pomalidomide 4 mg Cap, 4 mg, Oral, Daily, 1 of 1 cycle, Start date: --, End date: -- oxnhbkiyyfb-pxixbhmeenfla-qcmc (DARZALEX FASPRO) 1,800 mg-30,000 unit/15 mL subcutaneous injection 1,800 mg, 1,800 mg, Subcutaneous, Once, 3 of 12 cycles Administration: 1,800 mg (11/03/2022), 1,800 mg (11/10/2022), 1,800 mg (12/01/2022), 1,800 mg (12/15/2022), 1,800 mg (12/22/2022), 1,800 mg (01/12/2023), 1,800 mg (02/02/2023), 1,800 mg (02/16/2023), 1,800 mg(12/29/2022), 1,800 mg (01/20/2023) Allergies: Ampicillin, Codeine, Indomethacin, Morphine, and Penicillin [...] every 12 (twelve) hours as needed. ??? metoprolol succinate (TOPROL-XL) 25 [...] (two) times daily. 20 tablet 0 ??? sulfamethoxazole-trimethoprim (BACTRIM DS) 800-160 mg per tablet Take 1 tablet (160 mg of trimethoprim total) by mouth in the morning and 1 tablet (160 mg of trimethoprim total) before bedtime. 20 tablet 0 ??? Tab-A-Avery 400 mcg Tab Take 1 tablet by mouth in the morning. ??? traMADoL (ULTRAM) 50 mg tablet Take 1 tablet (50 mg total) by mouth. ??? Xarelto 20 mg tablet SMARTSI Tablet(s) By Mouth Every Evening ??? [DISCONTINUED] meclizine (ANTIVERT) 25 mg tablet Take 1 tablet (25 mg total) by mouth 4 (four) times daily as needed. No current facility-administered medications on file prior to visit. Review of Systems: Review of Systems All other systems reviewed and are negative. Vitals: Vitals: 02/16/23 1319 BP: 113/56 Pulse: 69 Resp: 18 SpO2: 99% Physical Exam: Physical Exam Vitals [...] range of motion and neck supple. Comments: No significant bony pain in multiple sites Neurological: General: No focal deficit present. Mental Status: She is alert. Relevant Results: Clinical Support on 02/16/2023 Component Date Value Ref Range Status ??? WBC 02/16/2023 4.1 (L) 4.5 - 12.5 K/??L Final ??? RBC 02/16/2023 3.01 (L) 4.00 - 5.25 M/??L Final ??? Hemoglobin 02/16/2023 10.4 (L) 12.0 - 16.0 GM/DL Final ??? Hematocrit 02/16/2023 32.8 (L) 36.0 - 46.0 % Final ??? MCV 02/16/2023 109 (H) 80 - 100 fL Final ??? MCH 02/16/2023 34.6 (H) 26.0 - 34.0 pg Final ??? MCHC 02/16/2023 31.7 31.0 - 37.0 GM/DL Final ??? RDW 02/16/2023 14.4 12.0 - 16.8 % Final ??? Platelets 02/16/2023 164 140 - 440 K/CU MM Final ??? MPV 02/16/2023 9.0 7.4 - 10.4 fL Final ??? % Neutros 02/16/2023 36 (L) 45 - 80 % Final ??? % Lymphs 02/16/2023 42 15 - 45 % Final ??? % Monos 02/16/2023 15 (H) 0 - 10 % Final ??? % Eos 02/16/2023 6 (H) 0 - 5 % Final ??? % Baso 02/16/2023 1 0 - 3 % Final ??? # Neutros 02/16/2023 1.50 (L) 2.00 - 8.80 K/??L Final ??? # Lymphs 02/16/2023 1.73 0.70 - 5.50 K/??L Final ??? # Monos 02/16/2023 0.63 0.00 - 1.70 K/??L Final ??? # Eos 02/16/2023 0.23 0.00 - 0.80 K/??L Final ??? # Baso 02/16/2023 0.05 0.00 - 0.20 K/??L Final Lab Patient Walk-In on 02/02/2023 Component Date Value Ref Range Status ??? Protein, Total 02/02/2023 6.4 6.4 - 8.2 gm/dL Final ??? Albumin 02/02/2023 3.0 (L) 3.4 - 5.0 g/dL Final ??? Total Bilirubin 02/02/2023 0.3 0.2 - 1.3 mg/dL Final ? ? Bilirubin, Direct 02/02/2023 <0.1 0.0 - 0.2 mg/dL Final ??? Alkaline Phosphatase 02/02/2023 46 27 - 136 U/L Final ??? Globulin 02/02/2023 3.4 1.5 - 4.5 g/dL Final ??? A/G Ratio 02/02/2023 0.9 (L) 1.1 - 2.5 Final ??? AST 02/02/2023 12 5 - 37 U/L Final [facility] has become aware of sulfasalazine and sulfapyridine [...] to administration of the drug. ??? ALT 02/02/2023 18 12 - 78 U/L Final [facility] has become aware of sulfasalazine and sulfapyridine [...] prior to administration of the drug. ??? WBC 02/02/2023 3.9 (L) 4.5 - 12.5 K/??L Final ??? RBC 02/02/2023 3.08 (L) 4.00 - 5.25 M/??L Final ??? Hemoglobin 02/02/2023 10.6 (L) 12.0 - 16.0 GM/DL Final ??? Hematocrit 02/02/2023 33.5 (L) 36.0 - 46.0 % Final ??? MCV 02/02/2023 109 (H) 80 - 100 fL Final ??? MCH 02/02/2023 34.4 (H) 26.0 - 34.0 pg Final ??? MCHC 02/02/2023 31.6 31.0 - 37.0 GM/DL Final ??? RDW 02/02/2023 15.3 12.0 - 16.8 % Final ??? Platelets 02/02/2023 173 140 - 440 K/CU MM Final ??? MPV 02/02/2023 9.1 7.4 - 10.4 fL Final ??? % Neutros 02/02/2023 35 (L) 45 - 80 % Final ??? % Lymphs 02/02/2023 47 (H) 15 - 45 % Final ??? % Monos 02/02/2023 13 (H) 0 - 10 % Final ??? % Eos 02/02/2023 3 0 - 5 % Final ??? % Baso 02/02/2023 2 0 - 3 % Final ??? # Neutros 02/02/2023 1.34 (L) 2.00 - 8.80 K/??L Final ??? # Lymphs 02/02/2023 1.79 0.70 - 5.50 K/??L Final ??? # Monos 02/02/2023 0.50 0.00 - 1.70 K/??L Final ??? # Eos 02/02/2023 0.13 0.00 - 0.80 K/??L Final ??? # Baso 02/02/2023 0.09 0.00 - 0.20 K/??L Final ??? Sodium 02/02/2023 146 136 - 146 meq/L Final ??? Potassium 02/02/2023 3.4 (L) 3.5 - 5.1 meq/L Final ??? Chloride 02/02/2023 116 (H) 102 - 112 meq/L Final ??? CO2 02/02/2023 26 21 - 32 meq/L Final ??? Anion Gap 02/02/2023 7 (L) 9 - 20 Final ??? BUN 02/02/2023 8 7 - 22 mg/dL Final ??? Creatinine 02/02/2023 0.73 0.55 - 1.02 mg/dL Final ??? BUN/Creatinine 02/02/2023 11 8 - 20 Final ??? Glucose 02/02/2023 90 74 - 106 mg/dL Final ??? Calcium 02/02/2023 9.1 8.5 - 10.1 mg/dL Final ??? Osmolality Calc 02/02/2023 288.4 Final ? ? eGFR (mL/min/1.73m2) 02/02/2023 >60 >=60 mL/min/1.73m2 Final eGFR of <60 suggests chronic kidney disease if found over a 3 month period of time. eGFR <15 indicates renal failure. No results found. Cancer Staging No matching staging information was found for the patient. Plan: She received Darzalex today 1800 mg subcutaneously. She is premedicated with dexamethasone 20and Zofran 8. She will return in 2 weeks for the same. I will see her 4 weeks from now. I will be on vacation at next time and she will see either Reyna our nurse practitioner or Dr. Almaraz in my absence. I have answered her questions. We will notify her regarding her immunoelectrophoresis that was performed today. Obviously that result will be very important Signed: Electronically signed by RAIMUNDO PACHCEO MD 02/16/23 6:23 PM EDT No primary care provider on file. documented in this encounter Plan of Treatment Not on file documented as of this encounter Visit Diagnoses Diagnosis Multiple myeloma without remission (HCC)- Primary documented in this encounter
--- OUTSIDE RECORDS SUMMARY | 2024-08-03 17:03 | XMS_ITS | Encounter Summary ---
Author Organization [facility] Address [address] [place] [address] Care Team Providers Care Desk Assistant Name Role Phone Unavailable Primary Care Provider Unavailabl e Reason for Visit * Reason Comments Follow-up 1 month follow up. P atient reports doing well. Encounter Details Date Type Department Care Team (Late st Contact Info) Description 03/02/2023 11:00 AM EDT Office Visit [facility] [address] [facility] [address] [place] [address] Caleb Pacheco MD [address] [facility] [address] [place] [id number] Donna Almodovar APRN [address] [facility] [address] [place] [address] Multiple myeloma without remission (HCC) (Primary Dx) [...] Sign Reading Time Taken Comments Blood Pressure 135/65 03/02/2023 11:36 AM EDT Pulse 63 03/02/2023 11:36 AM EDT Temperature 36.4 ??C (97.5 ??F) 03/02/2023 1 1:36 AM EDT Respiratory Rate 16 03/02/2023 11:3 6 AM EDT Oxygen Saturation 100% 03/02/2023 11: 36 AM EDT Inhaled Oxygen Concentration - - Weight 125.2 kg (276 lb 1.6 oz) 023 11:36 AM EDT Height 172.7 cm (5' 8 ) 03/02/2023 11:3 6 AM EDT Body Mass Index 41.98 03/02/2023 11:36 AM EDT documented in this encounter Progress Notes * Donna Almodovar, DEPARTMENT DIRECTOR - 03/02/2023 11:00 AM EDT CC: Recent hospitalization HPI: Francy Bailey is a 62 y.o. female with history of multiple myeloma. She was recently hospitalized for chest pain. She had a full cardiac work-up that was unremarkable per her report. She denies chest pain today. No chest pressure, headaches, vision changes. She is on Darzalex and Pomalyst. Tolerating these well. Back pain remains stable. No GI complaints. Weight stable. No fevers, chills, or night sweats. Oncology History Overview Note 1. Diagnosis of [...] Treatment Summary Treatment goal Palliative Plan Name [facility] Multiple Myeloma - daratumumab (Darzalex) IV d1,8,15,22 fb D1,15 fb d1 + pomalidomide(Pomalyst) PO d1-21 every 28 days Status Active Start Date 11/03/2022 End Date 10/12/2023 (Planned) Provider Caleb Pacheco MD Chemotherapy pomalidomide 4 mg Cap, 4 mg, Oral, Daily, 1 of 1 cycle, Start date: --, End date: -- [id number] (DARZALEX FASPRO) 1,800 mg-30,000 unit/15 mL subcutaneous injection 1,800 mg, 1,800 mg, Subcutaneous, Once, 3 of 12 cycles Administration: 1,800 mg (11/03/2022), 1,800 mg (11/10/2022), 1,800 mg (12/01/2022), 1,800 mg (12/15/2022), 1,800 mg (12/22/2022), 1,800 mg (01/12/2023), 1,800 mg (02/02/2023), 1,800 mg (02/16/2023), 1,800 mg(12/29/2022), 1,800 mg (01/20/2023) Tobacco Allergies Meds Problems Med Hx Surg Hx Fam Hx Soc Hx Past Medical History: Diagnosis Date ??? Asthma ??? Autologous bone marrow transplantation status (HCC) ??? Chronic low back pain ??? DVT (deep venous thrombosis) (HCC) ??? History of shingles 12/2019 ??? Hypertension ??? Multiple myeloma (HCC) ??? Peripheral neuropathy ??? Pulmonary embolism (HCC) Past Surgical History: Procedure Laterality Date ??? BONE MARROW BIOPSY ??? TOTAL KNEE ARTHROPLASTY Current Outpatient Medications: ??? Advair HFA 115-21 mcg/actuation inhaler, 2 puffs 2 (two) times daily., Disp: , Rfl: ??? amitriptyline (ELAVIL) 10 MG tablet, SMARTSI Tablet(s) By Mouth Every Evening PRN, Disp: , Rfl: ??? ascorbic acid, vitamin C, (VITAMIN C) 250 MG tablet, Take 2 tablets (500 mg total) by mouth., Disp: , Rfl: ??? BIOTIN ORAL, Take 6,000 mcg by mouth., Disp: , Rfl: ??? busPIRone (BUSPAR) 15 MG tablet, Take 1 tablet (15 mg total) by mouth in the morning and 1 tablet (15 mg total) at noon and 1 tablet (15 mg total) in the evening., Disp: , Rfl: ??? cetirizine (ZyrTEC) 10 MG tablet, Take 1 tablet (10 mg total) by mouth., Disp: , Rfl: ??? clonazePAM (KlonoPIN) 0.5 MG tablet, Take 1 tablet (0.5 mg total) by mouth as needed., Disp: , Rfl: ??? cyanocobalamin (VITAMIN B-12) 1000 MCG tablet, TAKE 1 TABLET BY MOUTH EVERY DAY ON AN EMPTY STOMACH FOR LOW VITAMIN B-12, Disp: , Rfl: ??? cyclobenzaprine (FLEXERIL) 5 MG tablet, Take 1 tablet (5 mg total) by mouth 2 (two) times dailyas needed., Disp: , Rfl: ??? dexAMETHasone (DECADRON) 4 MG tablet, Take 5 pills the morning of chemotherapy once a week., Disp: 30 tablet, Rfl: 3 ??? ergocalciferol (ERGOCALCIFEROL) 1,250 mcg (50,000 unit) capsule, Take 1 capsule (50,000 Units total) by mouth once a week., Disp: , Rfl: ??? fluticasone propionate (FLONASE) 50 mcg/actuation nasal spray, 2 sprays in the morning., Disp: , Rfl: ??? gabapentin (NEURONTIN) 300 MG capsule, Take 1-2 capsules (300-600 mg total) by mouth 3 (three) times daily as needed., Disp: , Rfl: ? ? lidocaine HCl (magic mouthwash, without steroid & Benadryl,) suspension, SWISH AND EXPECTORATE OR SWALLOW 5 TO 10 ML BY MOUTH FOUR TIMES DAILY, Disp: , Rfl: ??? LORazepam (ATIVAN) 0.5 MG tablet, Take 1 tablet (0.5 mg total) by mouth every 12 (twelve) hoursas needed., Disp: , Rfl: ??? meclizine (ANTIVERT) 25 mg tablet, Take 1 tablet (25 mg total) by mouth 4 (four) times daily asneeded., Disp: 60 tablet, Rfl: 5 ??? metoprolol succinate (TOPROL-XL) 25 MG 24 hr tablet, Take 1 tablet (25 mg total) by mouth in the morning., Disp: , Rfl: ??? Mucus Relief ER 600 mg 12 hr tablet, Take 2 tablets (1,200 mg total) by mouth in the morning and 2 tablets (1,200 mg total) before bedtime., Disp: , Rfl: ??? nystatin (MYCOSTATIN) 100,000 unit/mL suspension, Take by mouth., Disp: , Rfl: ??? OneTouch Verio test strips Strp, 2 (two) times daily., Disp: , Rfl: ??? PARoxetine (PAXIL) 30 MG tablet, Take 1 tablet (30 mg total) by mouth in the morning., Disp: , Rfl: ??? Pomalyst 2 mg Cap, Take by mouth., Disp: , Rfl: ??? potassium chloride SA (K-DUR,KLOR-CON-M) 20 MEQ tablet, Take 1 tablet (20 mEq total) by mouth in the morning., Disp: , Rfl: ??? potassium citrate (UROCIT-K) 5 mEq (540 mg) SR tablet, Take 8 tablets (40 mEq total) by mouth.,Disp: , Rfl: ??? predniSONE (DELTASONE) 20 MG tablet, Take 1 tablet (20 mg total) by mouth in the morning., Disp: , Rfl: ??? ProAir HFA 90 mcg/actuation inhaler, 2 puffs., Disp: , Rfl: ??? scopolamine (TRANSDERM-SCOP) 1 mg over 3 days patch, Place 1 patch (1.5 mg total) onto the skinevery third day., Disp: 10 patch, Rfl: 3 ??? simvastatin (ZOCOR) 10 MG tablet, Take 1 tablet (10 mg total) by mouth nightly., Disp: , Rfl: ??? sulfamethoxazole-trimethoprim (BACTRIM DS) 800-160 mg per tablet, Take 1 tablet (160 mg of trimethoprim total) by mouth 2 (two) times daily., Disp: 20 tablet, Rfl: 0 ??? sulfamethoxazole-trimethoprim (BACTRIM DS) 800-160 mg per tablet, Take 1 tablet (160 mg of trimethoprim total) by mouth in the morning and 1 tablet (160 mg of trimethoprim total) before bedtime.,Disp: 20 tablet, Rfl: 0 ??? Tab-A-Avery 400 mcg Tab, Take 1 tablet by mouth in the morning., Disp: , Rfl: ??? traMADoL (ULTRAM) 50 mg tablet, Take 1 tablet (50 mg total) by mouth., Disp: , Rfl: ??? Xarelto 20 mg tablet, SMARTSI Tablet(s) By Mouth Every Evening, Disp: , Rfl: Review of Systems All other systems reviewed and are negative. Objective: BP 135/65 (BP Location: Right arm, Patient Position: Sitting) Pulse 63 Temp 97.5 ??F (36.4 ??C) Resp 16 Ht 1.727 m (5' 8 ) Wt 125.2 kg (276 lb 1.6 oz) SpO2 100% BMI 41.98 kg/m?? Physical Exam Vitals and nursing note reviewed. Constitutional: General: She is not in acute distress. Appearance: Normal appearance. She is obese. She is not ill-appearing. HENT: Head: Normocephalic. Mouth/Throat: Mouth: Mucous membranes are moist. Eyes: Extraocular Movements: Extraocular movements intact. Conjunctiva/sclera: Conjunctivae normal. Pupils: Pupils are equal, round, and reactive to light. Cardiovascular: Rate and Rhythm: Normal rate and regular rhythm. Pulses: Normal pulses. Heart sounds: Normal heart sounds. Pulmonary: Effort: Pulmonary effort is normal. No respiratory distress. Breath sounds: Normal breath sounds. Abdominal: General: Bowel sounds are normal. Palpations: Abdomen is soft. There is no mass. Tenderness: There is no abdominal tenderness. There is no right CVA tenderness or left CVA tenderness. Musculoskeletal: General: Normal range of motion. Cervical back: Normal range of motion and neck supple. Right lower leg: Edema present. Left lower leg: Edema present. Skin: General: Skin is warm and dry. Findings: No rash. Neurological: General: No focal deficit present. Mental Status: She is alert and oriented to person, place, and time. Psychiatric: Mood and Affect: Mood normal. Behavior: Behavior normal. Clinical Support on 03/02/2023 Component Date Value Ref Range Status ??? WBC 03/02/2023 3.3 (L) 4.5 - 12.5 K/??L Final ??? RBC 03/02/2023 3.17 (L) 4.00 - 5.25 M/??L Final ??? Hemoglobin 03/02/2023 10.8 (L) 12.0 - 16.0 GM/DL Final ??? Hematocrit 03/02/2023 34.4 (L) 36.0 - 46.0 % Final ??? MCV 03/02/2023 109 (H) 80 - 100 fL Final ??? MCH 03/02/2023 34.1 (H) 26.0 - 34.0 pg Final ??? MCHC 03/02/2023 31.4 31.0 - 37.0 GM/DL Final ??? RDW 03/02/2023 13.9 12.0 - 16.8 % Final ??? Platelets 03/02/2023 169 140 - 440 K/CU MM Final ??? MPV 03/02/2023 9.4 7.4 - 10.4 fL Final ??? % Neutros 03/02/2023 27 (L) 45 - 80 % Final ??? % Lymphs 03/02/2023 54 (H) 15 - 45 % Final ??? % Monos 03/02/2023 14 (H) 0 - 10 % Final ??? % Eos 03/02/2023 3 0 - 5 % Final ??? % Baso 03/02/2023 2 0 - 3 % Final ??? # Neutros 03/02/2023 0.90 (L) 2.00 - 8.80 K/??L Final ??? # Lymphs 03/02/2023 1.79 0.70 - 5.50 K/??L Final ??? # Monos 03/02/2023 0.45 0.00 - 1.70 K/??L Final ??? # Eos 03/02/2023 0.09 0.00 - 0.80 K/??L Final ??? # Baso 03/02/2023 0.07 0.00 - 0.20 K/??L Final ??? Sodium 03/02/2023 148 (H) 136 - 146 meq/L Final ??? Potassium 03/02/2023 3.4 (L) 3.5 - 5.1 meq/L Final ??? Chloride 03/02/2023 115 (H) 102 - 112 meq/L Final ??? CO2 03/02/2023 27 21 - 32 meq/L Final ??? Anion Gap 03/02/2023 9 9 - 20 Final ??? BUN 03/02/2023 12 7 - 22 mg/dL Final ??? Creatinine 03/02/2023 0.80 0.55 - 1.02 mg/dL Final ??? BUN/Creatinine 03/02/2023 15 8 - 20 Final ??? Glucose 03/02/2023 127 (H) 74 - 106 mg/dL Final ??? Calcium 03/02/2023 8.4 (L) 8.5 - 10.1 mg/dL Final ??? Osmolality Calc 03/02/2023 295.6 Final ? ? eGFR (mL/min/1.73m2) 03/02/2023 >60 >=60 mL/min/1.73m2 Final eGFR of <60 suggests chronic kidney disease if found over a 3 month period of time. eGFR <15 indicates renal failure. Clinical Support on 02/16/2023 Component Date Value [...] 02/16/2023 0.05 0.00 - 0.20 K/??L Final ??? Total Protein, Serum 02/16/2023 6.0 (L) 6.3 - 8.2 g/dL Final ??? Albumin 02/16/2023 3.40 (L) 3.75 - 5.01 g/dL Final ??? Alpha 1 Globulin 02/16/2023 0.31 0.19 - 0.46 g/dL Final ??? Alpha 2 Globulin 02/16/2023 0.79 0.48 - 1.05 g/dL Final ??? Beta Globulin 02/16/2023 1.16 (H) 0.48 - 1.10 g/dL Final ??? Gamma 02/16/2023 0.34 (L) 0.62 - 1.51 g/dL Final ??? Immunofixation Reflex 02/16/2023 RALPH Done Final ??? Monoclonal Protein 02/16/2023 0.82 g/dL Final ??? SPEP/RALPH Interpretation 02/16/2023 See Note Final Monoclonal spike in the [...] kappa. ??? EER Serum Protein Electrophoresis * 02/16/2023 See Note Final Authorized individuals can access the [facility] Enhanced Report using the following link: [email or web address] Performed By: [facility] [employer] [address] [place] [address] Topography Technician: Parker Rangel MD, PhD ??? Rodanthe Qnt Free Light Chains 02/16/2023 12.76 3.30 - 19.40 mg/L Final INTERPRETIVE INFORMATION: Rodanthe Qnt Free Light Chains Undetected antigen excess is a rare event but cannot be excluded. Free light chain results should always be interpreted in conjunction with other clinical and laboratory findings. ??? Lambda Qnt Free Light Chains 02/16/2023 17.97 5.71 - 26.30 mg/L Final INTERPRETIVE INFORMATION: Lambda Qnt Free Light Chains Undetected antigen excess is a rare event but cannot be excluded. Free light chain results should always be interpreted in conjunction with other clinical and laboratory findings. ??? Rodanthe/Lambda Free Light Chain Ratio 02/16/2023 0.71 0.26 - 1.65 Final Performed By: [facility] [employer] [address] [place], [place] [id number] Topography Technician: Parker Rangel MD, PhD ??? Immunoglobulin G 02/16/2023 304 (L) 768 - 1632 mg/dL Final REFERENCE INTERVAL: Immunoglobulin G Access complete set of age- and/or gender-specific reference intervals for this test in the [facility] Laboratory Test Directory (Poken). Performed By: [facility] [employer] [address] [place] [address] Topography Technician: Parker Rangel MD, PhD ??? Immunoglobulin M 02/16/2023 18 (L) 35 - 263 mg/dL Final REFERENCE INTERVAL: Immunoglobulin M Access complete set of age- and/or gender-specific reference intervals for this test in the [facility] Laboratory Test Directory (Poken). Performed By: [facility] [address] [place] [address] Topography Technician: Parker Rangel MD, PhD ??? Immunoglobulin A 02/16/2023 424 (H) 68 - 408 mg/dL Final REFERENCE INTERVAL: Immunoglobulin A Access complete set of age- and/or gender-specific reference intervals for this test in the [facility] Laboratory Test Directory (Poken). Performed By: [facility] [address] [place] [address] Topography Technician: Parker Rangel MD, PhD ??? Immunofix Electrophoresis Bill 02/16/2023 Billed Final Performed By: [facility] [email or web address] [address] [place] [address] Topography Technician: Parker Rangel MD, PhD Assessment: 1. Multiple myeloma without remission (HCC) Plan: Overall, Ms. Bailey appears to be stable. Her ANC today is below 1000. I discussed holding treatment so that she can start Darzalex and Pomalyst together in 2 days after her CBC check. She declines this option due to transportation issues. She will receive Darzalex today 1800 mg subcutaneously. She will be premedicated with dexamethasone 20 and Zofran 8. She will receive return in 2 weeks for the same regimen. She is aware to call me in the interim should she develop any fevers or infection-like symptoms. I discussed with our pharmacist if we could give her Granix but this would have to be given on a nontreatment day. We will request outside records from recent admission. I sent in a refill for scopolamine patches per her request. Plan to follow up in 1 months with . No follow-ups on file. documented in this encounter Plan of Treatment Not on file documented as of this encounter Visit Diagnoses Diagnosis Multiple myeloma without remission (HCC)- Primary documented in this encounter
--- OUTSIDE RECORDS SUMMARY | 2024-08-03 17:03 | XMS_ITS | Encounter Summary ---
Author Organization [facility] Address [address] [place] [address] Care Team Providers Care Chief Airport Guide Name Role Phone Unavailable Primary Care Provider Unavailabl e Encounter Details Date Type Department Care Team (Latest Contact Info) Description 02/02/2023 10:30 AM EDT Lab Patient [facility] [address] [place] [address] Caleb Pacheco MD [facility] [address] [place] [address] Multiple myeloma without remission (HCC) [...] Diagnosis Comments CBC W/ AUTO DIFF STAT 02/02/2023 9:32 AM EDT Multiple myeloma without remission (HCC) HEPATIC FUNCTION PANEL Routine 02/02/2023 9:32 AM EDT Multiple myeloma without remission (HCC) BASIC METABOLIC PANEL STAT 02/02/2023 9:32 AM EDT Multiple myeloma without remission (HCC) documented in this encounter Results * (ABNORMAL) Basic Metabolic Panel (02/02/2023 9:32 AM EDT) Sodium 146 136 - 146 meq/L 02/02/2023 1:46 PM [facility] Potassium 3.4(L) 3.5 - 5.1 meq/L 02/02/2023 1:46 PM [facility] Chloride 116(H) 102 - 112 meq/L 02/02/2023 1:46 PM [facility] CO2 26 21 - 32 meq/L 02/02/2023 1:46 PM [facility] Anion Gap 7(L) 9 - 20 02/02/2023 1:46 PM [facility] BUN 8 7 - 22 mg/dL 02/02/2023 1:46 PM [facility] Creatinine 0.73 0.55 - 1.02 mg/dL 02/02/2023 1:46 PM [facility] BUN/Creatinine 11 8 - 20 02/02/2023 1:46 PM [facility] Glucose 90 74 - 106 mg/dL 02/02/2023 1:46 PM [facility] Calcium 9.1 8.5 - 10.1 mg/dL 02/02/2023 1:46 PM [facility] Osmolality Calc 288.4 1:46 PM [facility] eGFR (mL/min/1.73m2) >60 >=60 mL/min/1.7 3m2 02/02/2023 1:46 PM [facility] Comment:eGFR of <60 suggests chronic kidney disease if found over a 3 month period of time. eGFR <15 indicates renal failure. Blood Venipuncture / Unknown 02/02/2023 9:32 AM EDT 02/02/2023 9:39 AM EDT Narrative [facility] - 02/02/2023 1:46 PM EDT As of 12-04-2022 date, reported [...] ORDERABLES Final Res ult [facility] [address] [place] [address] * (ABNORMAL) CBC with Automated Diff (02/02/2023 9:32 AM EDT) WBC 3.9(L) 4.5 - 12.5 K/??L 02/02/2023 9:43 AM EDT [facility] RBC 3.08(L) 4.00 - 5.25 M/??L 02/02/2023 9:43 AM EDT [facility] Hemoglobin 10.6(L) 12.0 - 16.0 GM/DL 02/02/2023 9:43 AM EDT [facility] Hematocrit 33.5(L) 36.0 - 46.0 % 02/02/2023 9:43 AM EDT [facility] MCV 109(H) 80 - 100 fL 02/02/2023 9:43 AM EDT [facility] MCH 34.4(H) 26.0 - 34.0 pg 02/02/2023 9:43 AM EDT [facility] MCHC 31.6 31.0 - 37.0 GM/DL 02/02/2023 9:43 AM EDT [facility] RDW 15.3 12.0 - 16.8 % 02/02/2023 9:43 AM EDT [facility] Platelets 173 140 - 440 K/CU MM 02/02/2023 9:43 AM EDT [facility] MPV 9.1 7.4 - 10.4 fL 02/02/2023 9:43 AM EDT [facility] % Neutros 35(L) 45 - 80 % 02/02/2023 9:43 AM EDT [facility] % Lymphs 47(H) 15 - 45 % 02/02/2023 9:43 AM EDT [facility] % Monos 13(H) 0 - 10 % 02/02/2023 9:43 AM EDT [facility] % Eos 3 0 - 5 % 02/02/2023 9:43 AM EDT [facility] % Baso 2 0 - 3 % 02/02/2023 9:43 AM EDT [facility] # Neutros 1.34(L) 2.00 - 8.80 K/??L 02/02/2023 9:43 AM EDT [facility] # Lymphs 1.79 0.70 - 5.50 K/??L 02/02/2023 9:43 AM EDT [facility] # Monos 0.50 0.00 - 1.70 K/??L 02/02/2023 9:43 AM EDT [facility] # Eos 0.13 0.00 - 0.80 K/??L 02/02/2023 9:43 AM EDT [facility] # Baso 0.09 0.00 - 0.20 K/??L 02/02/2023 9:43 AM EDT [facility] Blood Venipuncture / Unknown 02/02/2023 9:32 AM EDT 02/02/2023 9:39 AM EDT Narrative [facility] - 02/02/2023 9:43 AM EDT When CBC w/ Auto Diff [...] ORDERABLES Final Res ult [facility] [employer] [address] [place] [address], [facility] [phone] * (ABNORMAL) Hepatic function panel (02/02/2023 9:32 AM EDT) Pathologist [facility] Protein, Total 6.4 6.4 - 8.2 gm/dL 02/02/2023 1:57 PM EDT [facility] Albumin 3.0(L) 3.4 - 5.0 g/dL 02/02/2023 1:57 PM EDT [facility] Total Bilirubin 0.3 0.2 - 1.3 mg/dL 02/02/2023 1:57 PM EDT [facility] Bilirubin, Direct <0.1 0.0 - 0.2 mg/dL 02/02/2023 1:57 PM EDT [facility] Alkaline Phosphatase 46 27 - 136 U/L 02/02/2023 1:57 PM EDT [facility] Globulin 3.4 1.5 - 4.5 g/dL 02/02/2023 1:57 PM EDT [facility] A/G Ratio 0.9(L) 1.1 - 2.5 02/02/2023 1:57 PM EDT [facility] AST 12 5 - 37 U/L 02/02/2023 1:57 PM EDT [facility] Comment:[facility] has become aware of sulfasalazine and sulfapyridine [...] drug. ALT 18 12 - 78 U/L 02/02/2023 1:57 PM EDT [facility] Comment:[facility] has become aware of sulfasalazine and sulfapyridine [...] VENOUS STRUCTURE / Unknown Venipuncture / Unknown 02/02/2023 9:32 AM EDT 02/02/2023 9:39 AM EDT us Caleb Pacehco MD LAB BLOOD ORDERABLES Final Res ult [facility] [address] [phone] documented in this encounter Visit Diagnoses Diagnosis Multiple myeloma without remission (HCC) documented in this encounter
--- OUTSIDE RECORDS SUMMARY | 2024-08-03 17:03 | XMS_ITS | Encounter Summary ---
Author Organization [facility] Address [address] [place] [address] Care Team Providers Care Breakfast Server Name Role Phone Unavailable Primary Care Provider Unavailabl e Reason for Visit * Reason Comments Injections Darzalex * Episode Based Medication (Routine) - Closed Specialty Diagnoses / Procedures Referred By Ana Paula anne Referred To Contact Diagnoses Multiple myeloma without remission (HCC) Procedures IN DARATUMUMAB, HYALURONIDASE Daratumumab-[id number] Caleb Pacheco MD [address] [place] [address] Phone: tel: fax: [facility] [employer] [facility] [address] [place] [phone] Phone: tel: fax: Referral ID Status Reason Start Date Expiration Date Visits Re quested Visits Authorized [id number] Closed 10/20/2022 05/14/2024 1 100 Encounter Details Date Type Department Care Team (Late st Contact Info) Description 12/29/2022 11:30 AM EDT Infusion [facility] [address] [place] [address] Caleb Pacheco MD [address] [place] [address] Multiple myeloma without remission [...] Progress Notes * Kandi Ford RN - 12/29/2022 11:30 AM EDT Tolerated injection well documented in [...] 650 mg 650 mg Once, oral, On Wed12/29/22 at 1230, For 1 dose, Recommended maximum dose of acetaminophen is 4000 mg from all sources in 24 hoursIndications:Multiple myeloma without remission (HCC) Given 12/29/2022 11:50 AM EDT 650 mg daratumumab-hyaluronidase -fihj (DARZALEX FASPRO) 1,800 mg-30,000 unit/15 mL subcutaneous injection 1,800 mg 1,800 mg Once, subcutaneous, On Wed12/29/22 at 1300, For 1 dose, FLAT DOSING Administer into the subcutaneous tissue of the abdomen about 3 inches to the right or left of the navel over 3-5 minutes. Rotate injection sites for successive injections.Indications:Mu ltiple myeloma without remission (HCC) Given 12/29/2022 12:38 PM EDT 1,800 mg Abdominal Tissue diphenhydrAMINE (BENADRYL) capsule 25 mg 25 mg Once, oral, On Wed12/29/22 at 1230, For 1 dose,Indications:Multiple myeloma without remission (HCC) Given 12/29/2022 11:50 AM EDT 25 mg documented in this encounter
--- OUTSIDE RECORDS SUMMARY | 2024-08-03 17:03 | XMS_ITS | Encounter Summary ---
Author Organization [employer] Address [address] [place] [address] Care Team Providers Care Job Spotter Name Role Phone Unavailable Primary Care Provider Unavailabl e Reason for Visit * Reason Comments Injections Xgeva/darzalex * Episode Based Medication (Routine) - Closed Specialty Diagnoses / Procedures Referred By Ana Paula anne Referred To Contact Diagnoses Multiple myeloma without remission (HCC) Procedures SD DARATUMUMAB, HYALURONIDASE Daratumumab-[id number] Caleb Pacheco MD [address] [place] [address] Phone: tel: fax: [facility] - [employer] [address] [place] [phone] Phone: tel: fax: Referral ID Status Reason Start Date Expiration Date Visits Re quested Visits Authorized [id number] Closed 10/20/2022 05/14/2024 1 100 Encounter Details Date Type Department Care Team (Late st Contact Info) Description 02/02/2023 11:00 AM EDT Infusion [facility] - [facility] [address] [place] [address] Caleb Pacheco MD [address] [place] [address] Multiple myeloma without remission (HCC) [...] as of this encounter Progress Notes * Wolfgang Godinez RN - 02/02/2023 11:00 AM EDT Pt tolerated injection well. D/Jose Eduardo in stable condition. documented in this encounter Plan of Treatment Not on file documented as of this encounter Visit Diagnoses Diagnosis Multiple myeloma without remission (HCC)- Primary documented in this encounter Administered Medications Inactive Administered Medications - up to 3 most recent administrations Medication Order MAR Action Action Date Dose Rate Site acetaminophen (TYLENOL) tablet 650 mg 650 mg Once, oral, On Wed02/02/23 at 1100, For 1 dose, Recommended maximum dose of acetaminophen is 4000 mg from all sources in 24 hoursIndications:Multip le myeloma without remission (HCC) Given 02/02/2023 10:32 AM EDT 650 mg daratumumab-hyaluronida se-fij (DARZALEX FASPRO) 1,800 mg-30,000 unit/15 mL subcutaneous injection 1,800 mg 1,800 mg Once, subcutaneous, at 300 mL/hr, On Wed02/02/23 at 1100, For 1 dose, FLAT DOSING Administer into the subcutaneous tissue of the abdomen about 3 inches to the right or left of the navel over 3-5 minutes. Rotate injection sites for successive injections.Indications: Multiple myeloma without remission (HCC) Given 02/02/2023 10:49 AM EDT 1,800 mg 300 mL/hr Abdominal Tissue diphenhydrAMINE (BENADRYL) capsule 25 mg 25 mg Once, oral, On Wed02/02/23 at 1100, For 1 dose,Indications:Multip le myeloma without remission (HCC) Given 02/02/2023 10:32 AM EDT 25 mg documented in this encounter
--- OUTSIDE RECORDS SUMMARY | 2024-08-03 17:03 | XMS_ITS | Encounter Summary ---
Author Organization [employer] Address [address] [place] [address] Care Team Providers Care Stogy Roller Name Role Phone Unavailable Primary Care Provider Unavailabl e Encounter Details Date Type Department Care Team (Latest Contact Info) Description 02/16/2023 12:00 PM EDT Lab Patient Walk-In [facility] - [place] [address] [place] [address] Caleb Pacheco MD [facility] [address] [place] [address] Multiple myeloma without remission (HCC) [...] Pressure - - Pulse - - Temperature 36.3 ??C (97.3 ??F) 02/16/2023 12:42 PM E DT Respiratory Rate - - Oxygen Saturation - - Inhaled Oxygen Concentration - - Weight 123.8 kg (273 lb) 02/16/2023 12:42 PM EDT Height - - Body Mass Index 42.1 06/16/2022 9:00 AM EDT documented in this encounter Plan of Treatment Not on file documented as of this encounter Procedures Procedure Name Priority Date/Time Associated Diagnosis Comments CBC W/ AUTO DIFF STAT 02/16/2023 12:4 2 PM EDT Multiple myeloma without remission (HCC) IMMUNOFIX ELECTROPHORESIS BILL(SENDOUT) Routine 02/16/2023 12:35 PM EDT Multiple myeloma without remission (HCC) PROTEIN ELECTROPHORESIS W RFLX TO RALPH(SENDOUT) Routine 02/16/2023 12:35 PM EDT Multiple myeloma without remission (HCC) KAPPA-LAMBDA QUANT FLC WITH RATIO(SENDOUT) Routine 02/16/2023 12:35 PM EDT Multiple myeloma without remission (HCC) IMMUNOGLOBULIN M(SENDOUT) Routine 02/16/2023 12:35 PM EDT Multiple myeloma without remission (HCC) IMMUNOGLOBULIN G(SENDOUT) Routine 02/16/2023 12:35 PM EDT Multiple myeloma without remission (HCC) IMMUNOGLOBULIN A(SENDOUT) Routine 02/16/2023 12:35 PM EDT Multiple myeloma without remission (HCC) documented in this encounter Results * (ABNORMAL) CBC with Automated Diff (02/16/2023 12:42 PM EDT) WBC 4.1(L) 4.5 - 12.5 K/??L 02/16/2023 12:53 PM EDT [facility] RBC 3.01(L) 4.00 - 5.25 M/??L 02/16/2023 12:53 PM EDT [facility] Hemoglobin 10.4(L) 12.0 - 16.0 GM/DL 02/16/2023 12:53 PM EDT [facility] Hematocrit 32.8(L) 36.0 - 46.0 % 02/16/2023 12:53 PM EDT [facility] MCV 109(H) 80 - 100 fL 02/16/2023 12:53 PM EDT [facility] MCH 34.6(H) 26.0 - 34.0 pg 02/16/2023 [...] [facility] % Monos 15(H) 0 - 10 % [...] [facility] # Lymphs 1.73 0.70 - 5.50 K/??L 02/16/2023 12:53 PM EDT [facility] # Monos 0.63 0.00 - 1.70 K/??L 02/16/2023 12:53 PM EDT [facility] # Eos 0.23 0.00 - 0.80 K/??L 02/16/2023 12:53 PM EDT [facility] # Baso 0.05 0.00 - 0.20 K/??L [...] Final Res ult Performing Organization Address City/[facility]/ZIP Co de Phone Number [facility] [address] [place] [address], [facility] [phone] * [employer] Electrophoresis Bill(SENDOUT) (02/16/2023 12:35 PM EDT) [facility] Immunofix Electrophoresis Bill Billed 02/20/2023 10:45 AM EDT [facility] Comment: Performed By: [employer] [address] [place] [address] Brim Buster: Parker Rangel MD, PhD Blood ENTIRE LEFT UPPER ARM / Unknown Venipuncture / Unknown 02/16/2023 12:35 PM EDT 02/16/2023 4:54 PM EDT Caleb Pacheco MD LAB BLOOD ORDERABLES Final Res ult Performing Organization Address [facility]/ZIP Co de Phone Number [facility] [address] [place] [address], [facility] [phone] * (ABNORMAL) Immunoglobulin A(SENDOUT) (02/16/2023 12:35 PM EDT) [facility] Immunoglobulin A 424(H) 68 - 408 mg/dL 02/20/2023 10:04 AM EDT [facility] Comment: REFERENCE INTERVAL: Immunoglobulin A Access complete set of age- and/or gender-specific reference intervals for this test in the [employer] Laboratory Test Directory (Truevision). Performed By: [employer] [address] [place] [address] Brim Buster: Parker Rangel MD, PhD Blood ENTIRE LEFT UPPER ARM / Unknown Venipuncture / Unknown 02/16/2023 12:35 PM EDT 02/16/2023 4:54 PM EDT Caleb Pacheco MD LAB BLOOD ORDERABLES Final Res ult Performing Organization Address [facility] de Phone Number [address] [phone] * (ABNORMAL) Immunoglobulin M(SENDOUT) (02/16/2023 12:35 PM EDT) Immunoglobulin M 18(L) 35 - 263 mg/dL 02/20/2023 10:04 AM EDT [facility] Comment: REFERENCE INTERVAL: Immunoglobulin M Access complete set of age- and/or gender-specific reference intervals for this test in the [employer] Laboratory Test Directory (Truevision). Performed By: [employer] [address] [place] [address] Brim Buster: Parker Rangel MD, PhD Blood ENTIRE LEFT UPPER ARM / Unknown Venipuncture / Unknown 02/16/2023 12:35 PM EDT 02/16/2023 4:54 PM EDT Caleb Pacheco MD LAB BLOOD ORDERABLES Final Res ult Performing Organization Address [facility] de Phone Number [address] [phone] * (ABNORMAL) Immunoglobulin G(SENDOUT) (02/16/2023 12:35 PM EDT) Immunoglobulin G 304(L) 768 - 1632 mg/dL 02/20/2023 10:04 AM EDT [facility] Comment: REFERENCE INTERVAL: Immunoglobulin G Access complete set of age- and/or gender-specific reference intervals for this test in the [employer] Laboratory Test Directory (Truevision). Performed By: [employer] [address] [place] [id number] Brim Buster: Parker Rangel MD, PhD Blood ENTIRE LEFT UPPER ARM / Unknown Venipuncture / Unknown 02/16/2023 12:35 PM EDT 02/16/2023 4:54 PM EDT Caleb Pacheco MD LAB BLOOD ORDERABLES Final Res ult Performing Organization Address City/[facility]/ZIP Co de Phone Number [facility] [address] [phone] * [facility] Quant FLC with Ratio(SENDOUT) (02/16/2023 12:35 PM EDT) [facility] Light Chains 12.76 3.30 - 19.40 mg/L 02/18/2023 6:28 PM EDT [email or web address] Comment: INTERPRETIVE INFORMATION: [facility] Qnt Free Light Chains Undetected antigen excess is a rare event but cannot be excluded. Free light chain results should always be interpreted in conjunction with other clinical and laboratory findings. [facility] Qnt Free Light Chains 17.97 5.71 - 26.30 mg/L 02/18/2023 6:28 PM EDT [facility] Comment: INTERPRETIVE INFORMATION: [facility] Qnt Free Light Chains Undetected antigen excess is a rare event but cannot be excluded. Free light chain results should always be interpreted in conjunction with other clinical and laboratory findings. [facility]/Lambda Free Light Chain Ratio 0.71 0.26 - 1.65 02/18/2023 6:28 PM EDT [facility] [employer] Comment: Performed By: [employer] [address] [place] [address] Brim Buster: Parker Rangel MD, PhD Blood ENTIRE LEFT UPPER ARM / Unknown Venipuncture / Unknown 02/16/2023 12:35 PM EDT 02/16/2023 4:54 PM EDT Caleb Pacheco MD LAB BLOOD ORDERABLES Final Res ult Performing Organization Address City/[facility]/ZIP Co de Phone Number [facility] [address] [phone] * (ABNORMAL) Protein Electrophoresis w Rflx to RALPH(SENDOUT) (02/16/2023 12:35 PM EDT) Total Protein, Serum 6.0(L) 6.3 - 8.2 g/dL 02/20/2023 10:45 AM EDT [facility] Albumin 3.40(L) 3.75 - 5.01 g/dL 02/20/2023 10:45 AM EDT [facility] Alpha 1 Globulin 0.31 0.19 - 0.46 g/dL 02/20/2023 10:45 AM EDT [facility] Alpha 2 Globulin 0.79 0.48 - 1.05 g/dL 02/20/2023 10:45 AM EDT [facility] Beta Globulin 1.16(H) 0.48 - 1.10 g/dL 02/20/2023 10:45 AM EDT [facility] Gamma 0.34(L) 0.62 - 1.51 g/dL 02/20/2023 10:45 AM EDT [facility] Immunofixation Reflex RALPH Done 02/20/2023 10:45 AM EDT [facility] Monoclonal Protein 0.82 g/dL 2022 10:45 AM EDT [facility] SPEP/RALPH Interpretation See Note 02/20/2023 10:45 AM EDT [facility] Comment: Monoclonal spike in the [...] EER Serum Protein Electrophoresis Reflex See Note 02/20/2023 10:45 AM EDT [facility] Comment: Authorized individuals can access the [facility] Enhanced Report using the following link: [email or web address] Performed By: [employer] [address] [place] [address] Brim Buster: Parker Rangel MD, PhD Blood ENTIRE LEFT UPPER ARM / Unknown Venipuncture / Unknown 02/16/2023 12:35 PM EDT 02/16/2023 4:54 PM EDT us Caleb Pacheco MD LAB BLOOD ORDERABLES Final Res ult [facility] [address] [place] [address], [facility] [phone] documented in this encounter Visit Diagnoses Diagnosis Multiple myeloma without remission (HCC) documented in this encounter
--- OUTSIDE RECORDS SUMMARY | 2024-08-03 17:03 | XMS_ITS | Encounter Summary ---
Author Organization [employer] Address [address] [place] [address] Care Team Providers Care Pharmaceutical Detailer Name Role Phone Unavailable Primary Care Provider Unavailabl e Reason for Visit * Reason Comments Follow-up Multiple Myeloma No new concerns. Con tinued issues with back pain. Encounter Details Date Type Department Care Team (Late st Contact Info) Description 02/02/2023 10:45 AM EDT Office Visit [facility] - [facility] [address] [facility] [address] [place] [address] Raimundo Pacheco MD [address] [facility] [address] [place] [address] Multiple myeloma without remission (HCC) [...] Sign Reading Time Taken Comments Blood Pressure 129/67 02/02/2023 9:41 AM EDT Pulse 65 02/02/2023 9:41 AM EDT Temperature 36.5 ??C (97.7 ??F) 02/02/2023 9:41 AM ED T Respiratory Rate 17 02/02/2023 9:41 AM EDT Oxygen Saturation 99% 02/02/2023 9:41 AM EDT Inhaled Oxygen Concentration - - Weight 122.9 kg (271 lb) 02/02/2023 9:41 AM EDT Height - - Body Mass Index 41.79 06/16/2022 9:00 AM EDT documented in this encounter Progress Notes * Raimundo Pacheco MD - 02/02/2023 10:45 AM EDT Chief Complaint: History of Present Illness: Francy Bailey is a 62 y.o. female who presents today for follow up of multiple myeloma she has been on Darzalex along with pomalidomide and dexamethasone. She continues to have some back pain. She denies any bone pain other sites. She has had no weight loss. She has had no anorexia or alopecia or other additional new complaints or problems. Past Medical History: Diagnosis Date [...] cycle, Start date: --, End date: -- [id number]-[id number] (DARZALEX FASPRO) 1,800 mg-30,000 unit/15 mL subcutaneous injection 1,800 mg, 1,800 mg, Subcutaneous, Once, 3 of 12 cycles Administration: 1,800 mg (11/03/2022), 1,800 mg (11/10/2022), 1,800 mg (12/01/2022), 1,800 mg (12/15/2022), 1,800 mg (12/22/2022), 1,800 mg (01/12/2023), 1,800 mg (02/02/2023), 1,800 mg (12/29/2022), 1,800 mg(01/20/2023) Allergies: Ampicillin, Codeine, Indomethacin, Morphine, and Penicillin [...] systems reviewed and are negative. Vitals: Vitals: 02/02/23 0941 BP: 129/67 Pulse: 65 Resp: 17 Temp: 97.7 ??F (36.5 ??C) SpO2: 99% Weight: 122.9 kg (271 lb) Physical Exam: Physical Exam Vitals reviewed. [...] of motion and neck supple. Comments: Subjective back pain Neurological: General: No focal deficit present. Mental Status: She is alert. Relevant Results: Lab Patient Walk-In on 02/02/2023 Component Date [...] 02/02/2023 12 5 - 37 U/L Final [facility] has become aware of sulfasalazine and sulfapyridine [...] 02/02/2023 18 12 - 78 U/L Final [facility] has become aware of sulfasalazine and sulfapyridine [...] <15 indicates renal failure. Clinical Support on 01/20/2023 Component Date Value Ref Range Status ??? WBC 01/20/2023 4.8 4.5 - 12.5 K/??L Final ??? RBC 01/20/2023 3.29 (L) 4.00 - 5.25 M/??L Final ??? Hemoglobin 01/20/2023 11.1 (L) 12.0 - 16.0 GM/DL Final ??? Hematocrit 01/20/2023 35.9 (L) 36.0 - 46.0 % Final ??? MCV 01/20/2023 109 (H) 80 - 100 fL Final ??? MCH 01/20/2023 33.7 26.0 - 34.0 pg Final ??? MCHC 01/20/2023 30.9 (L) 31.0 - 37.0 GM/DL Final ??? RDW 01/20/2023 15.0 12.0 - 16.8 % Final ??? Platelets 01/20/2023 140 140 - 440 K/CU MM Final ??? MPV 01/20/2023 9.9 7.4 - 10.4 fL Final ??? % Neutros 01/20/2023 36 (L) 45 - 80 % Final ??? % Lymphs 01/20/2023 40 15 - 45 % Final ??? % Monos 01/20/2023 17 (H) 0 - 10 % Final ??? % Eos 01/20/2023 6 (H) 0 - 5 % Final ??? % Baso 01/20/2023 1 0 - 3 % Final ??? # Neutros 01/20/2023 1.75 (L) 2.00 - 8.80 K/??L Final ??? # Lymphs 01/20/2023 1.95 0.70 - 5.50 K/??L Final ??? # Monos 01/20/2023 0.81 0.00 - 1.70 K/??L Final ??? # Eos 01/20/2023 0.29 0.00 - 0.80 K/??L Final ??? # Baso 01/20/2023 0.04 0.00 - 0.20 K/??L Final Clinical Support on 01/19/2023 Component Date Value [...] found for the patient. Plan: Her white blood count is improved and her hemoglobin is stable. She will get the Darzalex today 1800 mg subcutaneously premedicated with dexamethasone 20 orally and Zofran 8 mg. Along with Tylenol 650. She return to see me in 2 weeks. She will her pomalidomide back. I will check her immunoelectrophoresis and free light chain ratio with her next visit. Signed: Electronically signed by RAIMUNDO PACHECO MD 02/02/23 2:39 PM EDT No primary care provider on file. documented in this encounter Plan of Treatment Not on file documented as of this encounter Results * (ABNORMAL) Protein Electrophoresis w Rflx to RALPH(SENDOUT) (02/16/2023 12:35 PM EDT) Total Protein, Serum 6.0(L) 6.3 - 8.2 g/dL 02/20/2023 10:45 AM EDT [facility] Albumin 3.40(L) 3.75 - 5.01 g/dL 02/20/2023 10:45 AM EDT [facility] Alpha 1 Globulin 0.31 0.19 - 0.46 g/dL 02/20/2023 10:45 AM EDT [facility] Alpha 2 Globulin 0.79 0.48 - 1.05 g/dL 02/20/2023 10:45 AM EDT [facility] Beta Globulin 1.16(H) 0.48 - 1.10 g/dL 02/20/2023 10:45 AM EDT [facility] Gamma 0.34(L) 0.62 - 1.51 g/dL 02/20/2023 10:45 AM EDT [facility] Immunofixation Reflex RALPH Done 02/20/2023 10:45 AM [...] CENTER Comment: Authorized individuals can access the [facility] Enhanced Report using the following link: [email or web address] Performed By: [email or web address] [address] [place] [address] Pulmonary Physical Therapist: Parker Rangel MD, PhD Blood ENTIRE LEFT UPPER ARM / Unknown Venipuncture / Unknown 02/16/2023 12:35 PM EDT 02/16/2023 4:54 PM EDT us Raimundo Pacheco MD LAB BLOOD ORDERABLES Final Res ult [facility] [address] [place] [address], [facility] [phone] * [place]-Lambda Quant FLC with Ratio(SENDOUT) (02/16/2023 12:35 PM EDT) [place] Qnt Free Light Chains 12.76 3.30 - 19.40 mg/L 02/18/2023 6:28 PM EDT [employer] Comment: INTERPRETIVE INFORMATION: [place] Qnt Free Light Chains Undetected antigen excess is a rare event but cannot be excluded. Free light chain results should always be interpreted in conjunction with other clinical and laboratory findings. [facility] Qnt Free Light Chains 17.97 5.71 - 26.30 mg/L 02/18/2023 6:28 PM EDT [employer] Comment: INTERPRETIVE INFORMATION: [facility] Qnt Free Light Chains Undetected antigen excess is a rare event but cannot be excluded. Free light chain results should always be interpreted in conjunction with other clinical and laboratory findings. [place]/Lambda Free Light Chain Ratio 0.71 0.26 - 1.65 02/18/2023 6:28 PM EDT [facility] Comment: Performed By: [email or web address] [address] [place] [address] Pulmonary Physical Therapist: Parker Rangel MD, PhD Blood ENTIRE LEFT UPPER ARM / Unknown Venipuncture / Unknown 02/16/2023 12:35 PM EDT 02/16/2023 4:54 PM EDT us Raimundo Pacheco MD LAB BLOOD ORDERABLES Final Res ult [facility] [address] [place] [address], [facility] [phone] documented in this encounter Visit Diagnoses Diagnosis Multiple myeloma without remission (HCC)- Primary documented in this encounter
--- OUTSIDE RECORDS SUMMARY | 2024-08-03 17:03 | XMS_ITS | Encounter Summary ---
Author Organization [employer] Address [address] [place] [address] Care Team Providers Care Reservoir Engineering Manager Name Role Phone Unavailable Primary Care Provider Unavailabl e Reason for Visit * Reason Comments Follow-up F/u with treatment. No new concerns. Encounter Details Date Type Department Care Team (Late st Contact Info) Description 12/29/2022 11:15 AM EDT Office Visit [facility] - [employer] [address] [facility] [address] [place] [address] Raimundo Pacheco MD [address] [facility] [address] [place] [address] Multiple myeloma, remission status unspecified (HCC) (Primary Dx); Multiple myeloma without remission (HCC) Social History [...] Reading Time Taken Comments Blood Pressure 148/96 12/29/2022 11:13 AM EDT Pulse 68 12/29/2022 11:13 AM EDT Temperature - - Respiratory Rate 19 12/29/2022 11:13 AM EDT Oxygen Saturation 97% 12/29/2022 11:13 AM EDT Inhaled Oxygen Concentration - - Weight - - Height - - Body Mass Index - - documented in this encounter Progress Notes * Raimundo Pacheco MD - 12/29/2022 11:15 AM EDT Chief Complaint: History of Present Illness: Francy Bailey is a 62 y.o. female who presents today for follow up of multiple myeloma. She takes pomalidomide Darzalex and dexamethasone. She has had a reduction in her M spike. She is here today for her sixth dose of Darzalex. She concluded her pomalidomide yesterday. She still has someback pain but no other significant bone discomfort. She has not lost any weight. She has had some diarrhea. She is other additional concerns or problems Past Medical History: Diagnosis Date [...] Treatment Summary Treatment goal Palliative Plan Name Jorge Multiple Myeloma - daratumumab (Darzalex) IV d1,8,15,22 fb D1,15 fb d1 + pomalidomide(Pomalyst) PO d1-21 every 28 days Status Active Start Date 11/03/2022 End Date 09/21/2023 (Planned) Provider Raimundo Pacheco MD Chemotherapy pomalidomide 4 mg Cap, 4 mg, Oral, Daily, 1 of 1 cycle, Start date: --, End date: -- gkuuyfglwpq-napvvzyvjojqt-bxos (DARZALEX FASPRO) 1,800 mg-30,000 unit/15 mL subcutaneous injection 1,800 mg, 1,800 mg, Subcutaneous, Once, 2 of 12 cycles Administration: 1,800 mg (11/03/2022), 1,800 mg (11/10/2022), 1,800 mg (12/01/2022), 1,800 mg (12/15/2022), 1,800 mg (12/22/2022), 1,800 mg (12/29/2022) Allergies: Ampicillin, Codeine, Indomethacin, [...] tablet 650 mg 650 mg Oral Once Frank Castanon PharmD BCPS 650 mg at 12/29/22 1150 ??? [COMPLETED] xgtyarfqjqo-oojhbjjwfogrv-blfn (DARZALEX FASPRO) 1,800 mg-30,000 unit/15 mL subcutaneous injection 1,800 mg 1,800 mg Subcutaneous Once Raimundo Pacheco MD 1,800 mg at 12/29/22 1238 ??? [COMPLETED] diphenhydrAMINE (BENADRYL) capsule 25 mg 25 mg Oral Once Frank Castanon PharmD BCPS 25mg at 12/29/22 1150 Review of Systems: Review of Systems All other systems reviewed and are negative. Vitals: Vitals: 12/29/22 1113 BP: (!) 148/96 Pulse: 68 Resp: 19 SpO2: 97% Physical Exam: Physical Exam Vitals reviewed. HENT: [...] is alert. Relevant Results: Clinical Support on 12/29/2022 Component Date Value Ref Range Status ??? WBC 12/29/2022 2.5 (L) 4.5 - [...] <15 indicates renal failure. Clinical Support on 12/22/2022 Component Date Value Ref Range Status ??? WBC 12/22/2022 3.1 (L) 4.5 - 12.5 K/??L Final ??? RBC 12/22/2022 3.20 (L) 4.00 - 5.25 M/??L Final ??? Hemoglobin 12/22/2022 10.8 (L) 12.0 - 16.0 GM/DL Final ??? Hematocrit 12/22/2022 34.5 (L) 36.0 - 46.0 % Final ??? MCV 12/22/2022 108 (H) 80 - 100 fL Final ??? MCH 12/22/2022 33.8 26.0 - 34.0 pg Final ??? MCHC 12/22/2022 31.3 31.0 - 37.0 GM/DL Final ??? RDW 12/22/2022 14.6 12.0 - 16.8 % Final ??? Platelets 12/22/2022 168 140 - 440 K/CU MM Final ??? MPV 12/22/2022 9.9 7.4 - 10.4 fL Final ??? % Neutros 12/22/2022 68 45 - 80 % Final ??? % Lymphs 12/22/2022 22 15 - 45 % Final ??? % Monos 12/22/2022 6 0 - 10 % Final ??? % Eos 12/22/2022 4 0 - 5 % Final ??? % Baso 12/22/2022 1 0 - 3 % Final ??? # Neutros 12/22/2022 2.12 2.00 - 8.80 K/??L Final ??? # Lymphs 12/22/2022 0.70 0.70 - 5.50 K/??L Final ??? # Monos 12/22/2022 0.18 0.00 - 1.70 K/??L Final ??? # Eos 12/22/2022 0.11 0.00 - 0.80 K/??L Final ??? # Baso 12/22/2022 0.02 0.00 - 0.20 K/??L Final Orders Only on 12/15/2022 Component Date Value Ref Range Status ??? WBC 12/15/2022 11.5 (H) 3.9 - 10.0 K/??L Final This is a corrected result. Previous result was 11.1 K/??L on 12/15/2022 at 1116 EDT ??? RBC 12/15/2022 3.31 (L) 3.93 - 6.08 M/??L Final This is a corrected result. Previous result was 3.34 M/??L on 12/15/2022 at 1116 EDT ??? Hemoglobin 12/15/2022 11.2 11.2 - 15.7 GM/DL Final This is a corrected result. Previous result was 11.3 GM/DL on 12/15/2022 at 1116 EDT ??? Hematocrit 12/15/2022 35.4 34.1 - 44.9 % Final This is a corrected result. Previous result was 35.9 % on 12/15/2022 at 1116 EDT ??? MCV 12/15/2022 107 (H) 79 - 95 fL Final This is a corrected result. Previous result was 108 fL on 12/15/2022 at 1116 EDT ??? MCH 12/15/2022 33.8 (H) 25.6 - 32.2 pg Final ??? MCHC 12/15/2022 31.6 (L) 32.2 - 36.5 GM/DL Final This is a corrected result. Previous result was 31.5 GM/DL on 12/15/2022 at 1116 EDT ??? RDW 12/15/2022 14.6 (H) 11.6 - 14.4 % Final This is a corrected result. Previous result was 14.2 % on 12/15/2022 at 1116 EDT ??? Platelets 12/15/2022 152 (L) 163 - 369 K/CU MM Final This is a corrected result. Previous result was 130 K/CU MM on 12/15/2022 at 1116 EDT ??? MPV 12/15/2022 10.4 9.4 - 12.4 fL Final This is a corrected result. Previous result was 9.4 fL on 12/15/2022 at 1116 EDT ??? Sodium 12/15/2022 144 136 - 146 meq/L Final ??? Potassium 12/15/2022 3.3 (L) 3.5 - 5.1 meq/L Final ??? Chloride 12/15/2022 112 102 - 112 meq/L Final ??? CO2 12/15/2022 27 21 - 32 meq/L Final ??? Calcium 12/15/2022 8.8 8.5 - 10.1 mg/dL Final ??? Glucose 12/15/2022 88 74 - 106 mg/dL Final ??? BUN 12/15/2022 11 7 - 22 mg/dL Final ??? Creatinine 12/15/2022 0.92 0.55 - 1.02 mg/dL Final ??? BUN/Creatinine 12/15/2022 12 8 - 20 Final ??? Albumin 12/15/2022 2.8 (L) 3.4 - 5.0 g/dL Final ??? Alkaline Phosphatase 12/15/2022 58 27 - 136 U/L Final ??? ALT 12/15/2022 16 12 - 78 U/L Final ??? AST 12/15/2022 10 5 - 37 U/L Final ??? Total Bilirubin 12/15/2022 0.5 0.2 - 1.3 mg/dL Final ??? Protein, Total 12/15/2022 6.6 6.4 - 8.2 gm/dL Final ??? Anion Gap 12/15/2022 8 (L) 9 - 20 Final ??? A/G Ratio 12/15/2022 0.7 (L) 1.1 - 2.5 Final ??? Globulin 12/15/2022 3.8 1.5 - 4.5 g/dL Final ??? Osmolality Calc 12/15/2022 285.7 Final ? ? eGFR (mL/min/1.73m2) 12/15/2022 >60 >=60 mL/min/1.73m2 Final ESTIMATED GFR IS NOT ACCURATE CREATININE CLEARANCE IN PREDICTING GLOMERULAR FILTRATION RATE. ESTIMATED GFR IS NOT APPLICABLE FOR DIALYSIS PATIENTS. ??? Total Counted 12/15/2022 100 Final ??? % Neutros (manual) 12/15/2022 76 (H) 50 - 65 % Final ??? % Bands (manual) 12/15/2022 3 (L) 5 - 11 % Final ??? % Lymphs (manual) 12/15/2022 13 (L) 24 - 44 % Final ??? % Monos (manual) 12/15/2022 5 4 - 5 % Final ??? % Eos (manual) 12/15/2022 2 0 - 3 % Final ??? % Metamyelo (manual) 12/15/2022 1 0 - 1 % Final ??? Differential Comment 12/15/2022 Left shift with slight toxic granulation. Rbc morphology unremarkable. Final ??? RBC Morphology 12/15/2022 Normal Normal Final ??? Platelet Estimate 12/15/2022 Decreased (A) Adequate Final ??? Raw nRBC Count 12/15/2022 1 (H) 0 - 0 Final ??? ANC# 12/15/2022 9.09 K/??L Final No results found. Cancer Staging No matching staging information was found for the patient. Plan: Her neutrophil count has decreased but Ragona proceed with the Darzalex at 1800 mg subcutaneously with premedication of dexamethasone 20 and Zofran 8 mg. She will also receive Benadryl 25 mg orally along with Tylenol 650. She will return for the Darzalex next week and I will see her in 2 weeks. She will start back on the pomalidomide in a week. We will hold off giving her any Granix at thistime. I did do her immunoelectrophoresis today and the result is still pending but we will notify her with the result. Signed: Electronically signed by RAIMUNDO PACHECO MD 12/29/22 2:24 PM EDT No primary care provider on file. documented in this encounter Plan of Treatment Not on file documented as of this encounter Visit Diagnoses Diagnosis Multiple myeloma, remission status unspecified (HCC)- Primary Multiple myeloma without remission (HCC) documented in this encounter
--- OUTSIDE RECORDS SUMMARY | 2024-08-03 17:03 | XMS_ITS | Encounter Summary ---
Author Organization [employer] Address [address] [place] [address] Care Team Providers Care Vending Service Technician Name Role Phone Unavailable Primary Care Provider Unavailabl e Reason for Visit * Reason Comments Injections Darzalex * Episode Based Medication (Routine) - Closed Specialty Diagnoses / Procedures Referred By Ana Paula anne Referred To Contact Diagnoses Multiple myeloma without remission (HCC) Procedures LA DARATUMUMAB, HYALURONIDASE Daratumumab-[id number] Caleb Pacheco MD [address] [place] [address] Phone: tel: fax: [facility] - [place] [employer] [place] [phone] Phone: tel: fax: Referral ID Status Reason Start Date Expiration Date Visits Re quested Visits Authorized [id number] Closed 10/20/2022 05/14/2024 1 100 Encounter Details Date Type Department Care Team (Late st Contact Info) Description 02/16/2023 12:30 PM EDT Infusion [facility] - [employer] [address] [place] [address] Caleb Pacheco MD [address] [place] [address] Multiple myeloma without remission (HCC) [...] Time Taken Comments Blood Pressure 113/56 02/16/2023 2:02 PM EDT Pulse 69 02/16/2023 2:02 PM EDT Temperature - - Respiratory Rate 18 02/16/2023 2:02 PM EDT Oxygen Saturation 99% 02/16/2023 2:02 PM EDT Inhaled Oxygen Concentration - - Weight - - Height - - Body Mass Index - - documented in this encounter Progress Notes * Ivet Yee RN - 02/16/2023 12:30 PM EDT Tolerated injection without problems. documented in this encounter Plan of Treatment Not on file documented as of this encounter Visit Diagnoses Diagnosis Multiple myeloma without remission (HCC)- Primary documented in this encounter Administered Medications Inactive Administered Medications - up to 3 most recent administrations Medication Order MAR Action Action Date Dose Rate Site acetaminophen (TYLENOL) tablet 650 mg 650 mg Once, oral, On Wed02/16/23 at 1430, For 1 dose, Recommended maximum dose of acetaminophen is 4000 mg from all sources in 24 hoursIndications:Multip le myeloma without remission (HCC) Given 02/16/2023 2:04 PM EDT 650 mg daratumumab-hyaluronida se-fihj (DARZALEX FASPRO) 1,800 mg-30,000 unit/15 mL subcutaneous injection 1,800 mg 1,800 mg Once, subcutaneous, at 300 mL/hr, On Wed02/16/23 at 1430, For 1 dose, FLAT DOSING Administer into the subcutaneous tissue of the abdomen about 3 inches to the right or left of the navel over 3-5 minutes. Rotate injection sites for successive injections.Indications: Multiple myeloma without remission (HCC) Given 02/16/2023 2:25 PM EDT 1,800 mg 300 mL/hr Abdominal Tissue diphenhydrAMINE (BENADRYL) capsule 25 mg 25 mg Once, oral, On Wed02/16/23 at 1430, For 1 dose,Indications:Multip le myeloma without remission (HCC) Given 02/16/2023 2:04 PM EDT 25 mg documented in this encounter
--- OUTSIDE RECORDS SUMMARY | 2024-08-03 17:03 | XMS_ITS | Encounter Summary ---
Author Organization [employer] Address [address] [place] [address] Care Team Providers Care Vocational Case Manager Name Role Phone Unavailable Primary Care Provider Unavailabl e Encounter Details Date Type Department Care Team (Late st Contact Info) Description 12/30/2022 Orders Only [facility] - [employer] [address] [place] [address] Caleb Pacheco MD [address] [facility] [address] [place] [address] Social History Tobacco Use Types [...]
--- OUTSIDE RECORDS SUMMARY | 2024-08-03 17:03 | XMS_ITS | Encounter Summary ---
Author Organization [employer] Address [address] [place] [address] Care Team Providers Care Seismograph Recorder Name Role Phone Unavailable Primary Care Provider Unavailabl e Encounter Details Date Type Department Care Team (Latest Contact Info) Description 03/02/2023 10:45 AM EDT Lab Patient [facility] - [address] [place] [phone] Donna Almodovar APRN [address] [facility] [address] [place] [address] Multiple myeloma without remission (HCC) Social History [...] Diagnosis Comments CBC W/ AUTO DIFF STAT 03/02/2023 11:1 8 AM EDT Multiple myeloma without remission (HCC) HEPATIC FUNCTION PANEL Routine 03/02/2023 11:18 AM EDT Multiple myeloma without remission (HCC) BASIC METABOLIC PANEL STAT 03/02/2023 11:18 AM EDT Multiple myeloma without remission (HCC) documented in this encounter Results * (ABNORMAL) Basic Metabolic Panel (03/02/2023 11:18 AM EDT) Sodium 148(H) 136 - 146 meq/L 03/02/2023 11:58 AM [facility] Potassium 3.4(L) 3.5 - 5.1 meq/L 03/02/2023 11:58 AM [facility] Chloride 115(H) 102 - 112 meq/L 03/02/2023 11:58 AM [facility] CO2 27 21 - 32 meq/L 03/02/2023 11:58 AM [facility] Anion Gap 9 9 - 20 03/02/2023 11:58 AM [facility] BUN 12 7 - 22 mg/dL 03/02/2023 11:58 AM [facility] Creatinine 0.80 0.55 - 1.02 mg/dL 03/02/2023 11:58 AM [facility] BUN/Creatinine 15 8 - 20 03/02/2023 11:58 AM [facility] Glucose 127(H) 74 - 106 mg/dL 03/02/2023 11:58 AM [facility] Calcium 8.4(L) 8.5 - 10.1 mg/dL 03/02/2023 11:58 AM [facility] Osmolality Calc 295.6 11:58 AM [facility] eGFR (mL/min/1.73m2) >60 >=60 mL/min/1.7 3m2 03/02/2023 11:58 AM [facility] Comment:eGFR of <60 suggests chronic kidney disease if found over a 3 month period of time. eGFR <15 indicates renal failure. Blood ENTIRE LEFT UPPER ARM / Unknown Venipuncture / Unknown 03/02/2023 11:18 AM EDT 03/02/2023 11:26 AM EDT [facility] - 03/02/2023 11:58 AM EDT As of 12-04-2022 date, reported eGFR [...] [facility] [address] [place] [address], [facility] [phone] * (ABNORMAL) Hepatic function panel (03/02/2023 11:18 AM EDT) Protein, Total 6.0(L) 6.4 - 8.2 gm/dL 03/02/2023 12:10 PM EDT [facility] Albumin 3.0(L) 3.4 - 5.0 g/dL 03/02/2023 12:10 PM EDT [facility] Total Bilirubin 0.4 0.2 - 1.3 mg/dL 03/02/2023 12:10 PM EDT [facility] Bilirubin, Direct 0.1 0.0 - 0.2 mg/dL 03/02/2023 12:10 PM EDT [facility] Alkaline Phosphatase 43 27 - 136 U/L 03/02/2023 12:10 PM EDT [facility] Globulin 3 1.5 - 4.5 g/dL 03/02/2023 12:10 PM EDT [facility] A/G Ratio 1.0(L) 1.1 - 2.5 03/02/2023 12:10 PM EDT [facility] AST 12 5 - 37 U/L 03/02/2023 12:10 PM EDT [facility] Comment:[employer] has become aware of sulfasalazine and sulfapyridine [...] drug. ALT 22 12 - 78 U/L 03/02/2023 12:10 PM EDT [facility] Comment:[employer] has become aware of sulfasalazine and sulfapyridine [...] UPPER ARM / Unknown Venipuncture / Unknown 03/02/2023 11:18 AM EDT 03/02/2023 11:26 AM EDT us Caleb Pacheco MD LAB BLOOD ORDERABLES Final Res ult [facility] [address] [phone] * (ABNORMAL) CBC with Automated Diff (03/02/2023 11:18 AM EDT) WBC 3.3(L) 4.5 - 12.5 K/??L 03/02/2023 11:33 AM EDT [facility] RBC 3.17(L) 4.00 - 5.25 M/??L 03/02/2023 11:33 AM EDT [facility] Hemoglobin 10.8(L) 12.0 - 16.0 GM/DL 03/02/2023 11:33 AM EDT [facility] Hematocrit 34.4(L) 36.0 - 46.0 % 03/02/2023 11:33 AM EDT [facility] MCV 109(H) 80 - 100 fL 03/02/2023 11:33 AM EDT [facility] MCH 34.1(H) 26.0 - 34.0 pg 03/02/2023 11:33 AM EDT [facility] MCHC 31.4 31.0 - 37.0 GM/DL 03/02/2023 11:33 AM EDT [facility] RDW 13.9 12.0 - 16.8 % 03/02/2023 11:33 AM EDT [facility] Platelets 169 140 - 440 K/CU MM 03/02/2023 11:33 AM EDT [facility] MPV 9.4 7.4 - 10.4 fL 03/02/2023 11:33 AM EDT [facility] % Neutros 27(L) 45 - 80 % 03/02/2023 11:33 AM EDT [facility] % Lymphs 54(H) 15 - 45 % 03/02/2023 11:33 AM EDT [facility] % Monos 14(H) 0 - 10 % 03/02/2023 11:33 AM EDT [facility] % Eos 3 0 - 5 % 03/02/2023 11:33 AM EDT [facility] % Baso 2 0 - 3 % 03/02/2023 11:33 AM EDT [facility] # Neutros 0.90(L) 2.00 - 8.80 K/??L 03/02/2023 11:33 AM EDT [facility] # Lymphs 1.79 0.70 - 5.50 K/??L 03/02/2023 11:33 AM EDT [facility] # Monos 0.45 0.00 - 1.70 K/??L 03/02/2023 11:33 AM EDT [facility] # Eos 0.09 0.00 - 0.80 K/??L 03/02/2023 11:33 AM EDT [facility] # Baso 0.07 0.00 - 0.20 K/??L 03/02/2023 11:33 AM EDT [facility] Blood ENTIRE LEFT UPPER ARM / Unknown Venipuncture / Unknown 03/02/2023 11:18 AM EDT 03/02/2023 11:26 AM EDT Narrative [facility] - 03/02/2023 11:33 AM EDT When CBC w/ Auto Diff [...] Final Res ult [facility] [address] [phone] documented in this encounter Visit Diagnoses Diagnosis Multiple myeloma without remission (HCC) documented in this encounter
--- OUTSIDE RECORDS SUMMARY | 2024-08-03 17:03 | XMS_ITS | Encounter Summary ---
Author Organization [email or web address] Address [address] [place] [address] Care Team Providers Care Hair Spinner Name Role Phone Unavailable Primary Care Provider Unavailabl e Reason for Visit * Reason Comments Injections * Episode Based Medication (Routine) - Closed Specialty Diagnoses / Procedures Referred By Ana Paula anne Referred To Contact Diagnoses Multiple myeloma without remission (HCC) Procedures [place] DARATUMUMAB, HYALURONIDASE Daratumumab-[id number] Caleb Pacheco MD [address] [place] [address] Phone: tel: fax: [facility] - [facility] [facility] [address] [place] [address] Phone: tel: fax: Referral ID Status Reason Start Date Expiration Date Visits Re quested Visits Authorized [id number] Closed 10/20/2022 05/14/2024 1 100 Encounter Details Date Type Department Care Team (Late st Contact Info) Description 03/16/2023 1:00 PM EDT Infusion [facility] - [facility] [address] [place] [address] Caleb Pacheco MD [address] [facility] [address] [place] [address] Multiple myeloma without remission (HCC) [...] Sign Reading Time Taken Comments Blood Pressure 141/79 03/16/2023 11:00 AM EDT Pulse 65 03/16/2023 11:00 AM EDT Temperature 36.8 ??C (98.2 ??F) 03/16/2023 11:00 AM E DT Respiratory Rate 16 03/16/2023 11:00 AM EDT Oxygen Saturation 96% 03/16/2023 11:00 AM EDT Inhaled Oxygen Concentration - - Weight - - Height - - Body Mass Index - - documented in this encounter Progress Notes * Myla Franco RN - 03/16/2023 1:00 PM EDTSummary: Discharge 1215: Labs drawn from left ac. Labs WNL. Darzalex given in right abdomen. SM documented in this encounter Plan of Treatment Not on file documented as of this encounter Procedures Procedure Name Priority Date/Time Associated Diagnosis Comments CBC W/ AUTO DIFF STAT 03/16/2023 11:0 8 AM EDT Multiple myeloma without remission (HCC) documented in this encounter Results * (ABNORMAL) CBC with Automated Diff (03/16/2023 11:08 AM EDT) WBC 4.0(L) 4.5 - 12.5 K/??L 03/16/2023 12:24 PM EDT [facility] RBC 3.41(L) 4.00 - 5.25 M/??L 03/16/2023 12:24 PM EDT [facility] Hemoglobin 11.7(L) 12.0 - 16.0 GM/DL 03/16/2023 12:24 PM EDT [facility] Hematocrit 36.5 36.0 - 46.0 % 03/16/2023 12:24 PM EDT [facility] MCV 107(H) 80 - 100 fL 03/16/2023 12:24 PM EDT [facility] MCH 34.3(H) 26.0 - 34.0 pg 03/16/2023 12:24 PM EDT [facility] MCHC 32.1 31.0 - 37.0 GM/DL 03/16/2023 12:24 PM EDT [facility] RDW 13.4 12.0 - 16.8 % 03/16/2023 12:24 PM EDT [facility] Platelets 147 140 - 440 K/CU MM 03/16/2023 12:24 PM EDT [facility] MPV 9.6 7.4 - 10.4 fL 03/16/2023 12:24 PM EDT [facility] % Neutros 33(L) 45 - 80 % 03/16/2023 12:24 PM EDT [facility] % Lymphs 41 15 - 45 % 03/16/2023 12:24 PM EDT [facility] % Monos 17(H) 0 - 10 % 03/16/2023 12:24 PM EDT [facility] % Eos 7(H) 0 - 5 % 03/16/2023 12:24 PM EDT [facility] % Baso 2 0 - 3 % 03/16/2023 12:24 PM EDT [facility] # Neutros 1.34(L) 2.00 - 8.80 K/??L 03/16/2023 12:24 PM EDT [facility] # Lymphs 1.65 0.70 - 5.50 K/??L 03/16/2023 12:24 PM EDT [facility] # Monos 0.68 0.00 - 1.70 K/??L 03/16/2023 12:24 PM EDT [facility] # Eos 0.28 0.00 - 0.80 K/??L 03/16/2023 12:24 PM EDT [facility] # Baso 0.06 0.00 - 0.20 K/??L 03/16/2023 12:24 PM EDT [facility] Blood ENTIRE RIGHT UPPER ARM / Unknown Venipuncture / Unknown 03/16/2023 11:08 AM EDT 03/16/2023 11:20 AM EDT Narrative [facility] - 03/16/2023 12:24 PM EDT When CBC w/ Auto Diff is ordered the lab will add a Manual Differential as a quality check at no additional charge if: Lymphocytes greater than seventy five percent with normal or increased WBC Monocytes greater than Fifteen percent Basophil greater than four percent Bands >10% or several immature myeloids are seen on scan Blast? Flag noted Atypical Lymph flag noted Donna Almodovar APRN LAB BLOOD ORDERABLES Final Result Performing Organization Address City/State/[facility] Co de Phone Number [facility] [address] [phone] [facility] [address] [phone] documented in this encounter Visit Diagnoses Diagnosis Multiple myeloma without remission (HCC)- Primary documented in this encounter Administered Medications Inactive Administered Medications - up to 3 most recent administrations Medication Order MAR Action Action Date Dose Rate Site acetaminophen (TYLENOL) tablet 650 mg 650 mg Once, oral, On Wed03/16/23 at 1130, For 1 dose, Recommended maximum dose of acetaminophen is 4000 mg from all sources in 24 hoursIndications:Multip le myeloma without remission (HCC) Given 03/16/2023 11:45 AM EDT 650 mg daratumumab-hyaluronida se-fihj (DARZALEX FASPRO) 1,800 mg-30,000 unit/15 mL subcutaneous injection 1,800 mg 1,800 mg Once, subcutaneous, at 300 mL/hr, On Wed03/16/23 at 1200, For 1 dose, FLAT DOSING Administer into the subcutaneous tissue of the abdomen about 3 inches to the right or left of the navel over 3-5 minutes. Rotate injection sites for successive injections.Indications: Multiple myeloma without remission (HCC) Given 03/16/2023 12:06 PM EDT 1,800 mg 300 mL/hr Abdominal Tissue diphenhydrAMINE (BENADRYL) capsule 25 mg 25 mg Once, oral, On Wed03/16/23 at 1130, For 1 dose,Indications:Multip le myeloma without remission (HCC) Given 03/16/2023 11:45 AM EDT 25 mg documented in this encounter
--- OUTSIDE RECORDS SUMMARY | 2024-08-03 17:03 | XMS_ITS | Encounter Summary ---
Author Organization [employer] Address [address] [place] [address] Care Team Providers Care Personal Banking Advisor Name Role Phone Unavailable Primary Care Provider Unavailabl e Encounter Details Date Type Department Care Team (Latest Contact Info) Description 01/11/2023 Travel Social History Tobacco Use Types Packs/Day [...]
--- OUTSIDE RECORDS SUMMARY | 2024-08-03 17:03 | XMS_ITS | Encounter Summary ---
Author Organization [employer] Address [address] [place] [address] Care Team Providers Care Site Safety Manager Name Role Phone Clifford Newell Primary Care Provider + [phone] Encounter Details Date Type Department Care Team (Late st Contact Info) Description 01/20/2023 Outside Orders [facility] Central Scheduling [address] [place] [address] Clifford Newell PA [address] [place] [address] Breast cancer screening by mammogram (Primary Dx) Social History Tobacco Use Types [...] as of this encounter Visit Diagnoses Diagnosis Breast cancer screening by mammogram- Primary documented in this encounter Care Teams Site Safety Manager Relationship Specialty Start Date End Date Clifford Newell PA [address] [place] [address] PCP - General Physician Game Protector 10/14/23 documented as of this encounter
--- OUTSIDE RECORDS SUMMARY | 2024-08-03 17:03 | XMS_ITS | Encounter Summary ---
Author Organization [employer] Address [address] [place] [address] Care Team Providers Care Map Drafter Name Role Phone Unavailable Primary Care Provider Unavailabl e Reason for Visit * Reason Comments Medication Refill Encounter Details Date Type Department Care Team (Late st Contact Info) Description 12/30/2022 Refill [facility] [address] [place] [address] Caleb Pacheco MD [facility] [facility] [address] [place] [address] Social History Tobacco Use Types [...]
--- OUTSIDE RECORDS SUMMARY | 2024-08-03 17:03 | XMS_ITS | Encounter Summary ---
Author Organization [employer] Address [address] [place] [address] Care Team Providers Care Assembler Dc Field Ring Name Role Phone Unavailable Primary Care Provider Unavailabl e Reason for Visit * Reason Comments Injections * Episode Based Medication (Routine) - Closed Specialty Diagnoses / Procedures Referred By Ana Paula anne Referred To Contact Diagnoses Multiple myeloma without remission (HCC) Procedures CA DARATUMUMAB, HYALURONIDASE Daratumumab-[id number] Caleb Pacheco MD [address] [facility] [address] [place] [address] Phone: tel: fax: [facility] [address] [place] [address] Phone: tel: fax: Referral ID Status Reason Start Date Expiration Date Visits Re quested Visits Authorized [id number] Closed 10/20/2022 05/14/2024 1 100 Encounter Details Date Type Department Care Team (Late st Contact Info) Description 03/02/2023 12:00 PM EDT Infusion [facility] [address] [place] [address] Donna Almodovar APRN [address] [facility] [place], [place] [id number] Multiple myeloma without remission (HCC) (Primary Dx) [...] Progress Notes * Myla Franco RN - 03/02/2023 12:00 PM EDTSummary: Discharge 1307: Per Donna MCCLAIN, ok to treat with ANC of 900. Discussed Zarxio, but HYDROPULPER said doesn't need to give. Gave Darzalex SQ in abd, and Xgeva. Patient tolerated. SM documented in this encounter Plan of Treatment Not on file documented as of this encounter Visit Diagnoses Diagnosis Multiple myeloma without remission (HCC)- Primary documented in this encounter Administered Medications Inactive Administered Medications - up to 3 most recent administrations Medication Order MAR Action Action Date Dose Rate Site acetaminophen (TYLENOL) tablet 650 mg 650 mg Once, oral, On Wed03/02/23 at 1300, For 1 dose, Recommended maximum dose of acetaminophen is 4000 mg from all sources in 24 hoursIndications:Multip le myeloma without remission (HCC) Given 03/02/2023 12:37 PM EDT 650 mg daratumumab-hyaluronida se-fihj (DARZALEX FASPRO) 1,800 mg-30,000 unit/15 mL subcutaneous injection 1,800 mg 1,800 mg Once, subcutaneous, at 300 mL/hr, On Wed03/02/23 at 1300, For 1 dose, FLAT DOSING Administer into the subcutaneous tissue of the abdomen about 3 inches to the right or left of the navel over 3-5 minutes. Rotate injection sites for successive injections.Indications: Multiple myeloma without remission (HCC) Given 03/02/2023 12:59 PM EDT 1,800 mg 300 mL/hr Abdominal Tissue denosumab (XGEVA) subcutaneous injection 120 mg 120 mg Once, subcutaneous, On Wed03/02/23 at 1300, For 1 dose, * Refrigerated * Bring to room temperature 15 to 30 minutes prior to administration., This medication is restricted to use in outpatients only. Is this patient in outpatient status? YesIndications:Multiple myeloma without remission (HCC) Given 03/02/2023 12:38 PM EDT 120 mg Right Arm diphenhydrAMINE (BENADRYL) capsule 25 mg 25 mg Once, oral, On Wed03/02/23 at 1300, For 1 dose,Indications:Multip le myeloma without remission (HCC) Given 03/02/2023 12:37 PM EDT 25 mg documented in this encounter
--- OUTSIDE RECORDS SUMMARY | 2024-08-03 17:03 | XMS_ITS | Encounter Summary ---
Author Organization [employer] Address [address] [place] [address] Care Team Providers Care Cartridge Assembling Machine Adjuster Name Role Phone Unavailable Primary Care Provider Unavailabl e Encounter Details Date Type Department Care Team (Latest Contact Info) Description 01/20/2023 9:15 AM EDT Lab Patient Walk-In [facility] - [facility] [address] [place] [address] Caleb Pacheco MD [facility] [address] [place] [address] Multiple myeloma without remission (HCC) [...] - - Temperature 36.7 ??C (98 ??F) 01/20/2023 8:55 AM EDT Respiratory Rate - - Oxygen Saturation - - Inhaled Oxygen Concentration - - Weight 120.7 kg (266 lb) 01/20/2023 8:55 AM EDT Height - - Body Mass Index 41.02 06/16/2022 9:00 AM EDT documented in this encounter Plan of Treatment Not on file documented as of this encounter Procedures Procedure Name Priority Date/Time Associated Diagnosis Comments CBC W/ AUTO DIFF Routine 01/20/2023 8:47 AM EDT Multiple myeloma without remission (HCC) documented in this encounter Results * (ABNORMAL) CBC with automated diff (01/20/2023 8:47 AM EDT) WBC 4.8 4.5 - 12.5 K/??L 01/20/2023 8:54 AM EDT [facility] RBC 3.29(L) 4.00 - 5.25 M/??L 01/20/2023 8:54 AM EDT [facility] Hemoglobin 11.1(L) 12.0 - 16.0 GM/DL 01/20/2023 8:54 AM EDT [facility] Hematocrit 35.9(L) 36.0 - 46.0 % 01/20/2023 8:54 AM EDT [facility] MCV 109(H) 80 - 100 fL 01/20/2023 8:54 AM EDT [facility] MCH 33.7 26.0 - 34.0 pg 01/20/2023 8:54 AM EDT [facility] MCHC 30.9(L) 31.0 - 37.0 GM/DL 01/20/2023 8:54 AM EDT [facility] RDW 15.0 12.0 - 16.8 % 01/20/2023 8:54 AM EDT [facility] Platelets 140 140 - 440 K/CU MM 01/20/2023 8:54 AM EDT [facility] MPV 9.9 7.4 - 10.4 fL 01/20/2023 8:54 AM EDT [facility] % Neutros 36(L) 45 - 80 % 01/20/2023 8:54 AM EDT [facility] % Lymphs 40 15 - 45 % 01/20/2023 8:54 AM EDT [facility] % Monos 17(H) 0 - 10 % 01/20/2023 8:54 AM EDT [facility] % Eos 6(H) 0 - 5 % 01/20/2023 8:54 AM EDT [facility] % Baso 1 0 - 3 % 01/20/2023 8:54 AM EDT [facility] # Neutros 1.75(L) 2.00 - 8.80 K/??L 01/20/2023 8:54 AM EDT [facility] # Lymphs 1.95 0.70 - 5.50 K/??L 01/20/2023 8:54 AM EDT [facility] # Monos 0.81 0.00 - 1.70 K/??L 01/20/2023 8:54 AM EDT [facility] # Eos 0.29 0.00 - 0.80 K/??L 01/20/2023 8:54 AM EDT [facility] # Baso 0.04 0.00 - 0.20 K/??L 01/20/2023 8:54 AM EDT [facility] Blood ENTIRE LEFT UPPER ARM / Unknown Venipuncture / Unknown 01/20/2023 8:47 AM EDT 01/20/2023 8:50 AM EDT Narrative [facility] - 01/20/2023 8:54 AM EDT When CBC [...] Res ult [facility] [address] [phone] documented in this encounter Visit Diagnoses Diagnosis Multiple myeloma without remission (HCC) documented in this encounter
--- OUTSIDE RECORDS SUMMARY | 2024-08-03 17:04 | XMS_ITS | Encounter Summary ---
Author Organization [employer] Address [address] [place] [address] Care Team Providers Care Window Sash Installer Name Role Phone Unavailable Primary Care Provider Unavailabl e Encounter Details Date Type Department Care Team (Late st Contact Info) Description 11/24/2022 Orders Only [facility] [facility] [address] [place] [address] Caleb Pacheco MD [address] [facility] [address] [place] [address] Multiple myeloma without remission (HCC) [...] Diagnosis Comments CBC W/ AUTO DIFF STAT 11/24/2022 10:4 7 AM EST Multiple myeloma without remission (HCC) documented in this encounter Results * (ABNORMAL) CBC with Automated Diff (11/24/2022 10:47 AM EST) Pathologist [facility] WBC 1.7(LL) 4.5 - 12.5 K/??L 11/24/2022 1:45 PM EST [facility] RBC 3.46(L) 4.00 - 5.25 M/??L 11/24/2022 1:45 PM EST [facility] Hemoglobin 11.5(L) 12.0 - 16.0 GM/DL 11/24/2022 1:45 PM EST [facility] Hematocrit 37.1 36.0 - 46.0 % 11/24/2022 1:45 PM EST [facility] MCV 107(H) 80 - 100 fL 11/24/2022 1:45 PM EST [facility] MCH 33.2 26.0 - 34.0 pg 11/24/2022 1:45 PM EST [facility] MCHC 31.0 31.0 - 37.0 GM/DL 11/24/2022 1:45 PM EST [facility] RDW 13.3 12.0 - 16.8 % 11/24/2022 1:45 PM EST [facility] Platelets 128(L) 140 - 440 K/CU MM 11/24/2022 1:45 PM EST [facility] MPV 9.1 7.4 - 10.4 fL 11/24/2022 1:45 PM EST [facility] % Neutros 13(L) 45 - 80 % 11/24/2022 1:45 PM EST [facility] % Lymphs 53(H) 15 - 45 % 11/24/2022 1:45 PM EST [facility] % Monos 28(H) 0 - 10 % 11/24/2022 1:45 PM EST [facility] % Eos 4 0 - 5 % 11/24/2022 1:45 PM EST [facility] % Baso 2 0 - 3 % 11/24/2022 1:45 PM EST [facility] # Neutros 0.22(L) 2.00 - 8.80 K/??L 11/24/2022 1:45 PM EST [facility] # Lymphs 0.90 0.70 - 5.50 K/??L 11/24/2022 1:45 PM EST [facility] # Monos 0.47 0.00 - 1.70 K/??L 11/24/2022 1:45 PM EST [facility] # Eos 0.07 0.00 - 0.80 K/??L 11/24/2022 1:45 PM EST [facility] # Baso 0.04 0.00 - 0.20 K/??L 11/24/2022 1:45 PM EST [facility] Blood ENTIRE LEFT UPPER ARM / Unknown Venipuncture / Unknown 11/24/2022 10:47 AM EST 11/24/2022 10:49 AM EST Narrative [facility] - 11/24/2022 1:45 PM EST When CBC w/ Auto Diff is ordered the lab will add a Manual Differential as a quality check at no additional charge if: Lymphocytes greater than seventy five percent with normal or increased WBC Monocytes greater than Fifteen percent Basophil greater than four percent Bands >10% or several immature myeloids are seen on scan Blast? Flag noted Atypical Lymph flag noted Agree with automated diff us Caleb Pacheco MD LAB BLOOD ORDERABLES Final Res ult [facility] [address] [phone] [facility] [address] [phone] documented in this encounter Visit Diagnoses Diagnosis Multiple myeloma without remission (HCC)- Primary documented in this encounter
--- OUTSIDE RECORDS SUMMARY | 2024-08-03 17:04 | XMS_ITS | Encounter Summary ---
Author Organization [employer] Address [address] [place] [address] Care Team Providers Care Eddy Current Inspector Name Role Phone Unavailable Primary Care Provider Unavailabl e Encounter Details Date Type Department Care Team (Late st Contact Info) Description 12/22/2022 Orders Only [facility] [address] [place] [address] Caleb Pacheco MD [address] [facility] [address] [place] [address] Social History Tobacco Use Types [...]
--- OUTSIDE RECORDS SUMMARY | 2024-08-03 17:04 | XMS_ITS | Encounter Summary ---
Author Organization [employer] Address [address] [place] [address] Care Team Providers Care Coagulator Name Role Phone Unavailable Primary Care Provider Unavailabl e Reason for Visit * Reason Comments Follow-up 1 week appointment w ith treatment. No new complaints today. * Episode Based Medication (Routine) - Closed Specialty Diagnoses / Procedures Referred By Ana Paula anne Referred To Contact Diagnoses Multiple myeloma without remission (HCC) Procedures DENOSUMAB INJECTION Xgeva/ [id number] Caleb Pacheco MD [address] [address] Phone: tel: fax: [facility] [employer] [address] [place] [phone] Phone: tel: fax: Referral ID Status Reason Start Date Expiration Date Visits Re quested Visits Authorized [id number] Closed 06/16/2022 05/14/2024 99 100 Encounter Details Date Type Department Care Team (Late st Contact Info) Description 12/08/2022 12:00 PM EDT Infusion [facility] [address] [place] [address] Caleb Pacheco MD [address] [place] [address] Multiple myeloma without remission (HCC) [...] Sign Reading Time Taken Comments Blood Pressure 142/95 12/08/2022 2:11 PM EDT Pulse 80 12/08/2022 2:11 PM EDT Temperature 36.7 ??C (98 ??F) 12/08/2022 1:58 PM EDT Respiratory Rate 19 12/08/2022 2:11 PM EDT Oxygen Saturation 97% 12/08/2022 2:11 PM EDT Inhaled Oxygen Concentration - - Weight 117.9 kg (260 lb) 12/08/2022 1:58 PM EDT Height - - Body Mass Index 40.1 06/16/2022 9:00 AM EDT documented in this encounter Progress Notes * Kandi Ford RN - 12/08/2022 12:00 PM EDT Pt tolerated injections well. documented in this encounter Plan of Treatment Not on file documented as of this encounter Visit Diagnoses Diagnosis Multiple myeloma without remission (HCC)- Primary documented in this encounter Administered Medications Inactive Administered Medications - up to 3 most recent administrations Medication Order MAR Action Action Date Dose Rate Site denosumab (XGEVA) subcutaneous injection 120 mg 120 mg Once, subcutaneous, On Wed12/08/22 at 1500, For 1 dose, * Refrigerated * Bring to room temperature 15 to 30 minutes prior to administration., This medication is restricted to use in outpatients only. Is this patient in outpatient status? YesIndications:Multiple myeloma without remission (HCC) Given 12/08/2022 2:52 PM EDT 120 mg Left Arm filgrastim-sndz (ZARXIO) injection 480 mcg 480 mcg Once, subcutaneous, On 12/08/22 at 1500, For 1 dose, ZARXIO TERTIARY AGENT Contact MD to consider discontinuation if ANC > 2,000/mL or WBC > 5,000/mL. Refrigerate.Indications:Multip le myeloma without remission (HCC) Given 12/08/2022 2:54 PM EDT 480 mcg Right Arm documented in this encounter
--- OUTSIDE RECORDS SUMMARY | 2024-08-03 17:04 | XMS_ITS | Encounter Summary ---
Author Organization [employer] Address [address] [place] [address] Care Team Providers Care Cement Railroad Car Loader Name Role Phone Unavailable Primary Care Provider Unavailabl e Encounter Details Date Type Department Care Team (Late st Contact Info) Description 11/09/2022 Orders Only [facility] [address] [place] [address] Caleb Pacheco MD [address] [facility] [address] [place] [address] Multiple myeloma without remission (HCC) [...] Results * (ABNORMAL) CBC with Automated Diff (11/10/2022 8:48 AM EST) WBC 2.6(L) 4.5 - 12.5 K/??L 11/10/2022 9:04 AM EST [facility] RBC 3.35(L) 4.00 - 5.25 M/??L 11/10/2022 9:04 AM EST [facility] Hemoglobin 11.4(L) 12.0 - 16.0 GM/DL 11/10/2022 9:04 AM EST [facility] Hematocrit 36.5 36.0 - 46.0 % 11/10/2022 9:04 AM EST [facility] MCV 109(H) 80 - 100 fL 11/10/2022 9:04 AM EST [facility] MCH 34.0 26.0 - 34.0 pg 11/10/2022 9:04 AM EST [facility] MCHC 31.2 31.0 - 37.0 GM/DL 11/10/2022 9:04 AM EST [facility] RDW 13.2 12.0 - 16.8 % 11/10/2022 9:04 AM EST [facility] Platelets 131(L) 140 - 440 K/CU MM 11/10/2022 9:04 AM EST [facility] MPV 9.8 7.4 - 10.4 fL 11/10/2022 9:04 AM EST [facility] % Neutros 57 45 - 80 % 11/10/2022 9:04 AM EST [facility] % Lymphs 21 15 - 45 % 11/10/2022 9:04 AM EST [facility] % Monos 11(H) 0 - 10 % 11/10/2022 9:04 AM EST [facility] % Eos 11(H) 0 - 5 % 11/10/2022 9:04 AM EST [facility] % Baso 0 0 - 3 % 11/10/2022 9:04 AM EST [facility] # Neutros 1.47(L) 2.00 - 8.80 K/??L 11/10/2022 9:04 AM EST [facility] # Lymphs 0.53(L) 0.70 - 5.50 K/??L 11/10/2022 9:04 AM EST [facility] # Monos 0.29 0.00 - 1.70 K/??L 11/10/2022 9:04 AM EST [facility] # Eos 0.28 0.00 - 0.80 K/??L 11/10/2022 9:04 AM EST [facility] # Baso 0.00 0.00 - 0.20 K/??L 11/10/2022 9:04 AM EST [facility] Blood ENTIRE LEFT UPPER ARM / Unknown Venipuncture / Unknown 11/10/2022 8:48 AM EST 11/10/2022 8:58 AM EST Narrative [facility] - 11/10/2022 9:04 AM EST When CBC w/ Auto Diff [...] Res ult [facility] [address] [place] [address], [place] [phone] documented in this encounter Visit Diagnoses Diagnosis Multiple myeloma without remission (HCC)- Primary documented in this encounter
--- OUTSIDE RECORDS SUMMARY | 2024-08-03 17:04 | XMS_ITS | Encounter Summary ---
Author Organization [employer] Address [address] [place] [address] Care Team Providers Care Medication Manager Name Role Phone Unavailable Primary Care Provider Unavailabl e Encounter Details Date Type Department Care Team (Late st Contact Info) Description 12/21/2022 Orders Only [facility] [address] [place] [address] Caleb Pacheco MD [address] [facility] [address] [place] [address] Multiple myeloma without remission (HCC) [...] Results * (ABNORMAL) CBC with Automated Diff (12/22/2022 10:50 AM EDT) WBC 3.1(L) 4.5 - 12.5 K/??L 12/22/2022 11:00 AM EDT [facility] RBC 3.20(L) 4.00 - 5.25 M/??L 12/22/2022 11:00 AM EDT [facility] Hemoglobin 10.8(L) 12.0 - 16.0 GM/DL 12/22/2022 11:00 AM EDT [facility] Hematocrit 34.5(L) 36.0 - 46.0 % 12/22/2022 11:00 AM EDT [facility] MCV 108(H) 80 - 100 fL 12/22/2022 11:00 AM EDT [facility] MCH 33.8 26.0 - 34.0 pg 12/22/2022 11:00 AM EDT [facility] MCHC 31.3 31.0 - 37.0 GM/DL 12/22/2022 11:00 AM EDT [facility] RDW 14.6 12.0 - 16.8 % 12/22/2022 11:00 AM EDT [facility] Platelets 168 140 - 440 K/CU MM 12/22/2022 11:00 AM EDT [facility] MPV 9.9 7.4 - 10.4 fL 12/22/2022 11:00 AM EDT [facility] % Neutros 68 45 - 80 % 12/22/2022 11:00 AM EDT [facility] % Lymphs 22 15 - 45 % 12/22/2022 11:00 AM EDT [facility] % Monos 6 0 - 10 % 12/22/2022 11:00 AM EDT [facility] % Eos 4 0 - 5 % 12/22/2022 11:00 AM EDT [facility] % Baso 1 0 - 3 % 12/22/2022 11:00 AM EDT [facility] # Neutros 2.12 2.00 - 8.80 K/??L 12/22/2022 11:00 AM EDT [facility] # Lymphs 0.70 0.70 - 5.50 K/??L 12/22/2022 11:00 AM EDT [facility] # Monos 0.18 0.00 - 1.70 K/??L 12/22/2022 11:00 AM EDT [facility] # Eos 0.11 0.00 - 0.80 K/??L 12/22/2022 11:00 AM EDT [facility] # Baso 0.02 0.00 - 0.20 K/??L 12/22/2022 11:00 AM EDT [facility] Blood ENTIRE LEFT UPPER ARM / Unknown Venipuncture / Unknown 12/22/2022 10:50 AM EDT 12/22/2022 10:56 AM EDT Narrative [facility] - 12/22/2022 11:00 AM EDT When CBC w/ Auto Diff [...] Final Res ult [facility] [address] [place] [address], [facility] [phone] documented in this encounter Visit Diagnoses Diagnosis Multiple myeloma without remission (HCC)- Primary documented in this encounter
--- OUTSIDE RECORDS SUMMARY | 2024-08-03 17:04 | XMS_ITS | Encounter Summary ---
Author Organization [employer] Address [address] [place] [address] Care Team Providers Care Biodiesel Production Associate Name Role Phone Unavailable Primary Care Provider Unavailabl e Encounter Details Date Type Department Care Team (Late st Contact Info) Description 11/10/2022 Orders Only [facility] [facility] - [address] [place] [address] Caleb Pacheco MD [address] [facility] [address] [place] [address] Multiple myeloma without remission (HCC) [...] Diagnosis Comments CBC W/ AUTO DIFF STAT 11/10/2022 8:48 AM EST Multiple myeloma without remission (HCC) documented in this encounter Results * (ABNORMAL) CBC with Automated Diff (11/10/2022 8:48 AM EST) WBC 2.6(L) 4.5 - 12.5 K/??L 11/10/2022 9:04 AM EST [facility] RBC 3.35(L) 4.00 - 5.25 M/??L 11/10/2022 9:04 AM EST [facility] Hemoglobin 11.4(L) 12.0 - 16.0 GM/DL 11/10/2022 9:04 AM EST [facility] Hematocrit 36.5 36.0 - 46.0 % 11/10/2022 9:04 AM EST [facility] MCV 109(H) 80 - 100 fL 11/10/2022 9:04 AM EST [facility] MCH 34.0 26.0 - 34.0 pg 11/10/2022 9:04 AM EST [facility] MCHC 31.2 31.0 - 37.0 GM/DL 11/10/2022 9:04 AM EST [facility] RDW 13.2 12.0 - 16.8 % 11/10/2022 9:04 AM EST [facility] Platelets 131(L) 140 - 440 K/CU MM 11/10/2022 9:04 AM EST [facility] MPV 9.8 7.4 - 10.4 fL 11/10/2022 9:04 AM EST [facility] % Neutros 57 45 - 80 % 11/10/2022 9:04 AM EST [facility] % Lymphs 21 15 - 45 % 11/10/2022 9:04 AM EST [facility] % Monos 11(H) 0 - 10 % 11/10/2022 9:04 AM EST [facility] % Eos 11(H) 0 - 5 % 11/10/2022 9:04 AM EST [facility] % Baso 0 0 - 3 % 11/10/2022 9:04 AM EST [facility] # Neutros 1.47(L) 2.00 - 8.80 K/??L 11/10/2022 9:04 AM EST [facility] # Lymphs 0.53(L) 0.70 - 5.50 K/??L 11/10/2022 9:04 AM EST [facility] # Monos 0.29 0.00 - 1.70 K/??L 11/10/2022 9:04 AM EST [facility] # Eos 0.28 0.00 - 0.80 K/??L 11/10/2022 9:04 AM EST [facility] # Baso 0.00 0.00 - 0.20 K/??L 11/10/2022 9:04 AM EST [facility] Blood ENTIRE LEFT UPPER ARM / Unknown Venipuncture / Unknown 11/10/2022 8:48 AM EST 11/10/2022 8:58 AM EST Narrative [facility] - 11/10/2022 9:04 AM EST When [...] Res ult [facility] [address] [place] [address], [facility] [phone] documented in this encounter Visit Diagnoses Diagnosis Multiple myeloma without remission (HCC) documented in this encounter
--- OUTSIDE RECORDS SUMMARY | 2024-08-03 17:04 | XMS_ITS | Encounter Summary ---
Author Organization [employer] Address [address] [place] [address] Care Team Providers Care Behavioral Consultant Name Role Phone Unavailable Primary Care Provider Unavailabl e Encounter Details Date Type Department Care Team (Late st Contact Info) Description 11/23/2022 Orders Only [facility] [facility] - [facility] [address] [place] [address] Caleb Pacheco MD [address] [facility] [address] [place] [address] Multiple myeloma without remission [...] with Automated Diff (11/24/2022 10:47 AM EST) WBC 1.7(LL) 4.5 - 12.5 K/??L 11/24/2022 1:45 PM EST [facility] [facility] RBC 3.46(L) 4.00 - 5.25 M/??L 11/24/2022 1:45 PM EST [facility] Hemoglobin 11.5(L) 12.0 - 16.0 GM/DL 11/24/2022 1:45 PM EST [facility] Hematocrit 37.1 36.0 - 46.0 % 11/24/2022 1:45 PM EST [facility] MCV 107(H) 80 - 100 fL 11/24/2022 1:45 PM EST [facility] MCH 33.2 26.0 - 34.0 pg 11/24/2022 1:45 PM EST [facility] MCHC 31.0 31.0 - 37.0 GM/DL 11/24/2022 1:45 PM EST [facility] RDW 13.3 12.0 - 16.8 % 11/24/2022 1:45 PM EST [facility] Platelets 128(L) 140 - 440 K/CU MM 11/24/2022 1:45 PM EST [facility] MPV 9.1 7.4 - 10.4 fL 11/24/2022 1:45 PM EST [facility] % Neutros 13(L) 45 - 80 % 11/24/2022 1:45 PM EST [facility] % Lymphs 53(H) 15 - 45 % 11/24/2022 1:45 PM EST [facility] % Monos 28(H) 0 - 10 % 11/24/2022 1:45 PM EST [facility] % Eos 4 0 - 5 % 11/24/2022 1:45 PM EST [facility] % Baso 2 0 - 3 % 11/24/2022 1:45 PM EST [facility] # Neutros 0.22(L) 2.00 - 8.80 K/??L 11/24/2022 1:45 PM EST [facility] # Lymphs 0.90 0.70 - 5.50 K/??L 11/24/2022 1:45 PM EST [facility] # Monos 0.47 0.00 - 1.70 K/??L 11/24/2022 1:45 PM EST [facility] # Eos 0.07 0.00 - 0.80 K/??L 11/24/2022 1:45 PM EST [facility] # Baso 0.04 0.00 - 0.20 K/??L 11/24/2022 1:45 PM EST [facility] Blood ENTIRE LEFT UPPER ARM / Unknown Venipuncture / Unknown 11/24/2022 10:47 AM EST 11/24/2022 10:49 AM EST Narrative [facility] - 11/24/2022 1:45 PM EST When [...] ult [facility] [address] [facility] [address] [phone] [facility] [address] [facility] [employer] [address] [phone] documented in this encounter Visit Diagnoses Diagnosis Multiple myeloma without remission (HCC)- Primary documented in this encounter
--- OUTSIDE RECORDS SUMMARY | 2024-08-03 17:04 | XMS_ITS | Encounter Summary ---
Author Organization [employer] Address [address] [place] [address] Care Team Providers Care Recycling Attendant Name Role Phone Unavailable Primary Care Provider Unavailabl e Encounter Details Date Type Department Care Team (Late st Contact Info) Description 11/03/2022 Documentation [place] [facility] - [employer] [address] [place] [phone] Jennifer Ibarra RN Social History Tobacco Use Types Packs/Day [...] as of this encounter Progress Notes * Jennifer Ibarra RN - 11/03/2022 11:48 AM EST Scanned consent into chart F TALENT OFFICER documented in this encounter Plan of Treatment Not on file documented as of this encounter Visit Diagnoses Not on filedocumented in this encounter
--- OUTSIDE RECORDS SUMMARY | 2024-08-03 17:04 | XMS_ITS | Encounter Summary ---
Author Organization [employer] Address [address] [place] [address] Care Team Providers Care Strip Polisher Name Role Phone Unavailable Primary Care Provider Unavailabl e Encounter Details Date Type Department Care Team (Late st Contact Info) Description 12/15/2022 Orders Only [place] [facility] - [employer] [address] [place] [address] Raimundo Pacheco MD [address] [facility] [address] [place] [address] Social History Tobacco Use Types [...] Progress Notes * Raimundo Pacheco MD - 12/15/2022 5:53 PM EDT Chief Complaint: History of Present Illness: rFancy Bailey is a 62 y.o. female who presents today for follow up of multiple myeloma. She has had significant cytopenias and I have had to hold the pomalidomide and Darzalex in the past. I gave her some Granix. She denies having any significant bone pain with that. She is without fever.She is without other additional complaints or problems Past Medical [...] Summary Treatment goal Palliative Plan Name [facility] Multiple Myeloma - daratumumab (Darzalex) IV d1,8,15,22 fb D1,15 fb d1 + pomalidomide(Pomalyst) PO d1-21 every 28 days Status Active Start Date 11/03/2022 End Date 09/21/2023 (Planned) Provider Raimundo Pacheco MD Chemotherapy pomalidomide 4 mg Cap, 4 mg, Oral, Daily, 1 of 1 cycle, Start date: --, End date: -- fxscexkrkzk-pttporirobtpw-bosj (DARZALEX FASPRO) 1,800 mg-30,000 unit/15 mL subcutaneous injection 1,800 mg, 1,800 mg, Subcutaneous, Once, 2 of 12 cycles Administration: 1,800 mg (11/03/2022), 1,800 mg (11/10/2022), 1,800 mg (12/01/2022) Allergies: Ampicillin, Codeine, Indomethacin, Morphine, and Penicillin Medications: Current Outpatient Medications on File Prior to Visit Medication Sig Dispense Refill ??? Advair HFA 115-21 mcg/actuation inhaler 2 puffs 2 (two) times daily. ??? amitriptyline (ELAVIL) 10 MG tablet SMARTSI Tablet(s) By Mouth Every Evening PRN ??? ascorbic acid, vitamin C, (VITAMIN C) 250 MG tablet Take 500 mg by mouth. ??? BIOTIN ORAL Take 6,000 mcg by mouth. ??? busPIRone (BUSPAR) 15 MG tablet Take 15 mg by mouth 3 (three) times daily. ??? cetirizine (ZyrTEC) 10 MG tablet Take 10 mg by mouth. ??? clonazePAM (KlonoPIN) 0.5 MG tablet Take 0.5 mg by mouth as needed. ??? cyanocobalamin (VITAMIN B-12) 1000 MCG tablet TAKE 1 TABLET BY MOUTH EVERY DAY ON AN EMPTY STOMACH FOR LOW VITAMIN B-12 ??? cyclobenzaprine (FLEXERIL) 5 MG tablet Take 5 mg by mouth 2 (two) times daily as needed. ??? dexAMETHasone (DECADRON) 4 MG tablet Take 5 pills the morning of chemotherapy once a week. 30 tablet 3 ??? ergocalciferol (ERGOCALCIFEROL) 1,250 mcg (50,000 unit) capsule Take 1 capsule by mouth once a week. ??? fluticasone propionate (FLONASE) 50 mcg/actuation nasal spray 2 sprays daily. ??? gabapentin (NEURONTIN) 300 MG capsule Take 300-600 mg by mouth 3 (three) times daily as needed. ? ? lidocaine HCl (magic mouthwash, without steroid & Benadryl,) suspension SWISH AND EXPECTORATE OR SWALLOW 5 TO 10 ML BY MOUTH FOUR TIMES DAILY ??? LORazepam (ATIVAN) 0.5 MG tablet Take 0.5 mg by mouth every 12 (twelve) hours as needed. ??? meclizine (ANTIVERT) 25 mg tablet Take 25 mg by mouth 4 (four) times daily as needed. ??? metoprolol succinate (TOPROL-XL) 25 MG 24 hr tablet Take 25 mg by mouth daily. ??? Mucus Relief ER 600 mg 12 hr tablet Take 1,200 mg by mouth 2 (two) times daily. ??? [...] ??? PARoxetine (PAXIL) 30 MG tablet Take 30 mg by mouth daily. ??? Pomalyst 2 mg Cap Take by mouth. ??? potassium chloride SA (K-DUR,KLOR-CON-M) 20 MEQ tablet Take 20 mEq by mouth daily. ??? potassium citrate (UROCIT-K) 5 mEq (540 mg) SR tablet Take 40 mEq by mouth. ??? predniSONE (DELTASONE) 20 MG tablet Take 20 mg by mouth daily. ??? ProAir HFA 90 mcg/actuation inhaler 2 puffs. ??? simvastatin (ZOCOR) 10 MG tablet Take 10 mg by mouth nightly. ??? sulfamethoxazole-trimethoprim (BACTRIM DS) [...] tablet 650 mg 650 mg Oral Once Sheryl Blackmonbodeau 650 mg at 12/15/22 1152 ??? [COMPLETED] qhbjprdipok-ynnhsznbhidzv-bcml (DARZALEX FASPRO) 1,800 mg-30,000 unit/15 mL subcutaneous injection 1,800 mg 1,800 mg Subcutaneous Once Raimundo Pacheco MD 1,800 mg at 12/15/22 1207 ??? [COMPLETED] diphenhydrAMINE (BENADRYL) capsule 25 mg 25 mg Oral Once Sheryl Cullen 25 mg at 12/15/22 1152 Review of Systems: Review of Systems All [...] Mental Status: She is alert. Relevant Results: Orders Only on 12/15/2022 Component Date Value [...] Final ??? ANC# 12/15/2022 9.09 K/??L Final Orders Only on 12/08/2022 Component Date Value Ref Range Status ??? WBC 12/08/2022 2.2 (L) 4.5 - 12.5 K/??L Final ??? RBC 12/08/2022 3.20 (L) 4.00 - 5.25 M/??L Final ??? Hemoglobin 12/08/2022 10.7 (L) 12.0 - 16.0 GM/DL Final ??? Hematocrit 12/08/2022 34.3 (L) 36.0 - 46.0 % Final ??? MCV 12/08/2022 107 (H) 80 - 100 fL Final ??? MCH 12/08/2022 33.4 26.0 - 34.0 pg Final ??? MCHC 12/08/2022 31.2 31.0 - 37.0 GM/DL Final ??? RDW 12/08/2022 13.7 12.0 - 16.8 % Final ??? Platelets 12/08/2022 131 (L) 140 - 440 K/CU MM Final ??? MPV 12/08/2022 9.4 7.4 - 10.4 fL Final ??? % Neutros 12/08/2022 35 (L) 45 - 80 % Final ??? % Lymphs 12/08/2022 30 15 - 45 % Final ??? % Monos 12/08/2022 30 (H) 0 - 10 % Final ??? % Eos 12/08/2022 5 0 - 5 % Final ??? % Baso 12/08/2022 1 0 - 3 % Final ??? # Neutros 12/08/2022 0.77 (L) 2.00 - 8.80 K/??L Final ??? # Lymphs 12/08/2022 0.65 (L) 0.70 - 5.50 K/??L Final ??? # Monos 12/08/2022 0.66 0.00 - 1.70 K/??L Final ??? # Eos 12/08/2022 0.11 0.00 - 0.80 K/??L Final ??? # Baso 12/08/2022 0.01 0.00 - 0.20 K/??L Final Orders Only on 12/01/2022 Component Date Value Ref Range Status ??? Sodium 12/01/2022 141 136 - 146 meq/L Final ??? Potassium 12/01/2022 4.0 3.5 - 5.1 meq/L Final ??? Chloride 12/01/2022 110 (H) 98 - 108 meq/L Final ??? CO2 12/01/2022 26 22 - 29 meq/L Final ??? Anion Gap 12/01/2022 9 Final ??? BUN 12/01/2022 13 7 - 18 mg/dL Final ??? Creatinine 12/01/2022 0.90 0.60 - 1.10 mg/dL Final ??? BUN/Creatinine 12/01/2022 14 8 - 20 Final ??? Glucose 12/01/2022 97 70 - 105 mg/dL Final ??? Calcium Ionized (mg/dL) 12/01/2022 5.02 4.36 - 5.20 mg/dL Final ??? Emery Qnt Free Light Chains 12/01/2022 10.68 3.30 - 19.40 mg/L Final INTERPRETIVE INFORMATION: Emery Qnt Free Light Chains Undetected antigen excess is a rare event but cannot be excluded. Free light chain results should always be interpreted in conjunction with other clinical and laboratory findings. ??? Lambda Qnt Free Light Chains 12/01/2022 17.56 5.71 - 26.30 mg/L Final INTERPRETIVE INFORMATION: Lambda Qnt Free Light Chains Undetected antigen excess is a rare event but cannot be excluded. Free light chain results should always be interpreted in conjunction with other clinical and laboratory findings. ??? Emery/Lambda Free Light Chain Ratio 12/01/2022 0.61 0.26 - 1.65 Final Performed By: [employer] [address] [place] [address] Embedded Systems Developer: Parker Ranegl MD, PhD ??? Total Protein, Serum 12/01/2022 6.0 (L) 6.3 - 8.2 g/dL Final ??? Albumin 12/01/2022 3.10 (L) 3.75 - 5.01 g/dL Final ??? Alpha 1 Globulin 12/01/2022 0.36 0.19 - 0.46 g/dL Final ??? Alpha 2 Globulin 12/01/2022 0.85 0.48 - 1.05 g/dL Final ??? Beta Globulin 12/01/2022 1.31 (H) 0.48 - 1.10 g/dL Final ??? Gamma 12/01/2022 0.38 (L) 0.62 - 1.51 g/dL Final ??? Immunofixation Reflex 12/01/2022 RALPH Done Final ??? Monoclonal Protein 12/01/2022 0.98 g/dL Final ??? SPEP/RALPH Interpretation 12/01/2022 See Note Final Monoclonal spike in the beta region. The quantitation may include complement and/or transferrin components. Measurement of total Immunoglobulin (IgA, IgG, or IgM) can be used for the quantitation of the monoclonal spike instead. Hypogammaglobluinemia. RALPH gel pattern shows an IgA type lambda monoclonal protein. ??? EER Serum Protein Electrophoresis * 12/01/2022 See Note Final Authorized individuals can access the [facility] Enhanced Report using the following link: [email or web address] Performed By: [employer] [address] [place] [address] Embedded Systems Developer: Parker Rangel MD, PhD ??? Immunoglobulin G 12/01/2022 415 (L) 768 - 1632 mg/dL Final REFERENCE INTERVAL: Immunoglobulin G Access complete set of age- and/or gender-specific reference intervals for this test in the [facility] Test Directory (Sansan). Performed By: [employer] [address] [place] [address] Embedded Systems Developer: Parker Rangel MD, PhD ??? Immunoglobulin M 12/01/2022 21 (L) 35 - 263 mg/dL Final REFERENCE INTERVAL: Immunoglobulin M Access complete set of age- and/or gender-specific reference intervals for this test in the [facility] Laboratory Test Directory ([facility]an). Performed By: [employer] [address] [place] [address] Embedded Systems Developer: Parker Rangel MD, PhD ??? Immunoglobulin A 12/01/2022 653 (H) 68 - 408 mg/dL Final REFERENCE INTERVAL: Immunoglobulin A Access complete set of age- and/or gender-specific reference intervals for this test in the [facility] Laboratory Test Directory (Sansan). Performed By: [facility] [employer] [address] [place] [address] Embedded Systems Developer: Parker Rangel MD, PhD ??? [employer] Electrophoresis Bill 12/01/2022 Billed Final Performed By: [employer] [address] [place] [id number] Embedded Systems Developer: Parker Rangel MD, PhD Infusion on 12/01/2022 Component Date Value Ref Range Status ??? WBC 12/01/2022 2.6 (L) 4.5 - 12.5 K/??L Final ??? RBC 12/01/2022 2.99 (L) 4.00 - 5.25 M/??L Final ??? Hemoglobin 12/01/2022 10.2 (L) 12.0 - 16.0 GM/DL Final ??? Hematocrit 12/01/2022 32.4 (L) 36.0 - 46.0 % Final ??? MCV 12/01/2022 108 (H) 80 - 100 fL Final ??? MCH 12/01/2022 34.1 (H) 26.0 - 34.0 pg Final ??? MCHC 12/01/2022 31.5 31.0 - 37.0 GM/DL Final ??? RDW 12/01/2022 13.4 12.0 - 16.8 % Final ??? Platelets 12/01/2022 146 140 - 440 K/CU MM Final ??? MPV 12/01/2022 9.5 7.4 - 10.4 fL Final ??? % Neutros 12/01/2022 71 45 - 80 % Final ??? % Lymphs 12/01/2022 22 15 - 45 % Final ??? % Monos 12/01/2022 4 0 - 10 % Final ??? % Eos 12/01/2022 2 0 - 5 % Final ??? % Baso 12/01/2022 1 0 - 3 % Final ??? # Neutros 12/01/2022 1.80 (L) 2.00 - 8.80 K/??L Final ??? # Lymphs 12/01/2022 0.56 (L) 0.70 - 5.50 K/??L Final ??? # Monos 12/01/2022 0.11 0.00 - 1.70 K/??L Final ??? # Eos 12/01/2022 0.06 0.00 - 0.80 K/??L Final ??? # Ervin 12/01/2022 0.02 0.00 - 0.20 K/??L Final No results found. Cancer Staging No matching staging information was found for the patient. Plan: Her blood count is appropriate today. She has no new issues and will receive the Darzalex 1800 mg subcutaneously every premedicated with dexamethasone 20 and Zofran 8 orally. She will start back on the pomalidomide 2 mg a day. She return next week for the Darzalex again. I will see her in 2 we eks. Even though we have only been able to give her treatment sporadically she has had a 50% reduction in her M spike. I have answered her questions. She will continue on pain medicine for her back and I sent in a small prescription of oxycodone Signed: Electronically signed by RAIMUNDO PACHECO MD 12/15/22 5:53 PM EDT No primary care provider on file. documented in this encounter Plan of Treatment Not on file documented as of this encounter Visit Diagnoses Not on filedocumented in this encounter
--- OUTSIDE RECORDS SUMMARY | 2024-08-03 17:04 | XMS_ITS | Encounter Summary ---
Author Organization [employer] Address [address] [place] [address] Care Team Providers Care Fundraising Manager Name Role Phone Unavailable Primary Care Provider Unavailabl e Reason for Visit * Reason Comments Injections Encounter Details Date Type Department Care Team (Late st Contact Info) Description 11/24/2022 11:30 AM EST Infusion [place] [facility] - [facility] [address] [place] [address] Caleb Pacheco MD [facility] [address] [place] [address] Multiple myeloma without remission (HCC) [...] as of this encounter Progress Notes * Ivet Yee RN - 11/24/2022 11:30 AM EST Darzalex held today d/t low wbc, will return in 1 week. ER OFF documented in this encounter Plan of Treatment Not on file documented as of this encounter Visit Diagnoses Diagnosis Multiple myeloma without remission (HCC)- Primary documented in this encounter
--- OUTSIDE RECORDS SUMMARY | 2024-08-03 17:04 | XMS_ITS | Encounter Summary ---
Author Organization [employer] Address [address] [place] [address] Care Team Providers Care Psychotherapist Social Worker Name Role Phone Unavailable Primary Care Provider Unavailabl e Encounter Details Date Type Department Care Team (Late st Contact Info) Description 12/14/2022 Orders Only [place] [facility] - [facility] [address] [place] [address] Caleb Pacheco MD [address] [facility] [address] [place] [address] Multiple myeloma without remission (HCC) [...] encounter Results * (ABNORMAL) Comprehensive metabolic panel (12/15/2022 11:04 AM EDT) Sodium 144 136 - 146 meq/L 12/15/2022 1:11 PM EDT [facility] Potassium 3.3(L) 3.5 - 5.1 meq/L 12/15/2022 1:11 PM T [facility] Chloride 112 102 - 112 meq/L 12/15/2022 1:11 PM EDT [facility] CO2 27 21 - 32 meq/L 12/15/2022 1:11 PM T [facility] Calcium 8.8 8.5 - 10.1 mg/dL 12/15/2022 1:11 PM T [facility] Glucose 88 74 - 106 mg/dL 12/15/2022 1:11 PM T [facility] BUN 11 7 - 22 mg/dL 12/15/2022 1:11 PM T [facility] Creatinine 0.92 0.55 - 1.02 mg/dL 12/15/2022 1:11 PM [facility] BUN/Creatinine 12 8 - 20 12/15/2022 1:11 PM T [facility] Albumin 2.8(L) 3.4 - 5.0 g/dL 12/15/2022 1:11 PM T [facility] Alkaline Phosphatase 58 27 - 136 U/L 12/15/2022 1:11 PM T [facility] ALT 16 12 - 78 U/L 12/15/2022 1:11 PM T [facility] AST 10 5 - 37 U/L 12/15/2022 1:11 PM [facility] Total Bilirubin 0.5 0.2 - 1.3 mg/dL 12/15/2022 1:11 PM T [facility] Protein, Total 6.6 6.4 - 8.2 gm/dL 12/15/2022 1:11 PM T [facility] Anion Gap 8(L) 9 - 20 12/15/2022 1:11 PM [facility] A/G Ratio 0.7(L) 1.1 - 2.5 12/15/2022 1:11 PM T [facility] Globulin 3.8 1.5 - 4.5 g/dL 12/15/2022 1:11 PM T [facility] Osmolality Calc 285.7 1:11 PM [facility] eGFR (mL/min/1.73m2) >60 >=60 mL/min/1.7 3m2 12/15/2022 1:11 PM EDT [facility] Comment:ESTIMATED GFR IS NOT ACCURATE CREATININE CLEARANCE IN PREDICTING GLOMERULAR FILTRATION RATE. ESTIMATED GFR IS NOT APPLICABLE FOR DIALYSIS PATIENTS. Blood ENTIRE LEFT UPPER ARM / Unknown Venipuncture / Unknown 12/15/2022 11:04 AM EDT 12/15/2022 11:06 AM EDT Narrative [facility] - 12/15/2022 1:11 PM EDT As of 12-04-2022 date, reported [...] Final Res ult [facility] [address] [phone] * (ABNORMAL) CBC with Automated Diff (12/15/2022 11:04 AM EDT) WBC 11.5(H) 3.9 - 10.0 K/??L 12/15/2022 2:06 PM EDT [facility] Comment:This is a corrected result. Previous result was 11.1 K/??L on 12/15/2022 at 1116 EDT RBC 3.31(L) 3.93 - 6.08 M/??L 12/15/2022 2:06 PM EDT [facility] Comment:This is a corrected result. Previous result was 3.34 M/??L on 12/15/2022 at 1116 EDT Hemoglobin 11.2 11.2 - 15.7 GM/DL 12/15/2022 2:06 PM EDT [facility] Comment:This is a corrected result. Previous result was 11.3 GM/DL on 12/15/2022 at 1116 EDT Hematocrit 35.4 34.1 - 44.9 % 12/15/2022 2:06 PM EDT [facility] Comment:This is a corrected result. Previous result was 35.9 % on 12/15/2022 at 1116 EDT MCV 107(H) 79 - 95 fL 12/15/2022 2:06 PM EDT [facility] Comment:This is a corrected result. Previous result was 108 fL on 12/15/2022 at 1116 EDT MCH 33.8(H) 25.6 - 32.2 pg 12/15/2022 2:06 PM EDT [facility] MCHC 31.6(L) 32.2 - 36.5 GM/DL 12/15/2022 2:06 PM EDT [facility] Comment:This is a corrected result. Previous result was 31.5 GM/DL on 12/15/2022 at 1116 EDT RDW 14.6(H) 11.6 - 14.4 % 12/15/2022 2:06 PM EDT [facility] Comment:This is a corrected result. Previous result was 14.2 % on 12/15/2022 at 1116 EDT Platelets 152(L) 163 - 369 K/CU MM 12/15/2022 2:06 PM EDT [facility] Comment:This is a corrected result. Previous result was 130 K/CU MM on 12/15/2022 at 1116 EDT MPV 10.4 9.4 - 12.4 fL 12/15/2022 2:06 PM EDT [facility] Comment:This is a corrected result. Previous result was 9.4 fL on 12/15/2022 at 1116 EDT Blood ENTIRE LEFT UPPER ARM / Unknown Venipuncture / Unknown 12/15/2022 11:04 AM EDT 12/15/2022 11:06 AM EDT Narrative [facility] - 12/15/2022 2:06 PM EDT When CBC w/ Auto Diff [...] Final Res ult [facility] [address] [phone] documented in this encounter Visit Diagnoses Diagnosis Multiple myeloma without remission (HCC)- Primary documented in this encounter
--- OUTSIDE RECORDS SUMMARY | 2024-08-03 17:04 | XMS_ITS | Encounter Summary ---
Author Organization [employer] Address [address] [place] [address] Care Team Providers Care Order Analyst Name Role Phone Unavailable Primary Care Provider Unavailabl e Encounter Details Date Type Department Care Team (Late st Contact Info) Description 11/30/2022 Orders Only [facility] - [employer] [address] [place] [address] Caleb Pacheco MD [address] [facility] [address] [place] [address] Multiple myeloma without remission (HCC) [...] (ABNORMAL) Protein Electrophoresis w Rflx to RALPH(SENDOUT) (12/01/2022 9:01 AM EDT) Total Protein, Serum 6.0(L) 6.3 - 8.2 g/dL 12/04/2022 10:11 PM EDT [facility] Albumin 3.10(L) 3.75 - 5.01 g/dL 12/04/2022 10:11 PM EDT [facility] Alpha 1 Globulin 0.36 0.19 - 0.46 g/dL 12/04/2022 10:11 PM EDT [facility] Alpha 2 Globulin 0.85 0.48 - 1.05 g/dL 12/04/2022 10:11 PM EDT [facility] Beta Globulin 1.31(H) 0.48 - 1.10 g/dL 12/04/2022 10:11 PM EDT [facility] Gamma 0.38(L) 0.62 - 1.51 g/dL 12/04/2022 10:11 PM EDT [facility] Immunofixation Reflex RALPH Done 12/04/2022 10:11 PM EDT [facility] Monoclonal Protein 0.98 g/dL 2022 10:11 PM EDT [facility] SPEP/RALPH Interpretation See Note 12/04/2022 10:11 PM EDT [facility] Comment: Monoclonal spike in the beta region. The quantitation may include complement and/or transferrin components. Measurement of total Immunoglobulin (IgA, IgG, or IgM) can be used for the quantitation of the monoclonal spike instead. Hypogammaglobluinemia. RALPH gel pattern shows an IgA type lambda monoclonal protein. EER Serum Protein Electrophoresis Reflex See Note 12/04/2022 10:11 PM EDT [facility] Comment: Authorized individuals can access the [facility] Enhanced Report using the following link: [email or web address] Performed By: [facility] [address] [place] [address] Biochemistry Technologist: Parker Rangel MD, PhD Blood ENTIRE LEFT UPPER ARM / Unknown Venipuncture / Unknown 12/01/2022 9:01 AM EDT 12/01/2022 9:06 AM EDT us Caleb Pacheco MD LAB BLOOD ORDERABLES Final Res ult [facility] [employer] [address] [place], [place] [id number], [facility] [phone] * [place]-[facility] Quant FLC with Ratio(SENDOUT) (12/01/2022 9:01 AM EDT) [place] Qnt Free Light Chains 10.68 3.30 - 19.40 mg/L 12/02/2022 5:41 PM EDT [facility] Comment: INTERPRETIVE INFORMATION: [place] Qnt Free Light Chains Undetected antigen excess is a rare event but cannot be excluded. Free light chain results should always be interpreted in conjunction with other clinical and laboratory findings. Lambda Qnt Free Light Chains 17.56 5.71 - 26.30 mg/L 12/02/2022 5:41 PM EDT [facility] Comment: INTERPRETIVE INFORMATION: Lambda Qnt Free Light Chains Undetected antigen excess is a rare event but cannot be excluded. Free light chain results should always be interpreted in conjunction with other clinical and laboratory findings. [place]/Lambda Free Light Chain Ratio 0.61 0.26 - 1.65 12/02/2022 5:41 PM EDT [facility] Comment: Performed By: [facility] [address] [place] [address] Biochemistry Technologist: Parker Rangel MD, PhD Blood ENTIRE LEFT UPPER ARM / Unknown Venipuncture / Unknown 12/01/2022 9:01 AM EDT 12/01/2022 9:06 AM EDT us Caleb Pacheco MD LAB BLOOD ORDERABLES Final Res ult [facility] [employer] [address] [place] [address], [facility] [phone] * (ABNORMAL) Oncology Chemistry Panel (12/01/2022 9:01 AM EDT) Pathologist [facility] Sodium 141 136 - 146 meq/L 12/01/2022 9:12 AM EDT [facility] Potassium 4.0 3.5 - 5.1 meq/L 12/01/2022 9:12 AM EDT [facility] Chloride 110(H) 98 - 108 meq/L 12/01/2022 9:12 AM EDT [facility] CO2 26 22 - 29 meq/L 12/01/2022 9:12 AM EDT [facility] Anion Gap 9 12/01/2022 9:12 AM EDT [facility] BUN 13 7 - 18 mg/dL 12/01/2022 9:12 AM EDT [facility] Creatinine 0.90 0.60 - 1.10 mg/dL 12/01/2022 9:12 AM EDT [facility] BUN/Creatinine 14 8 - 20 12/01/2022 9:12 AM EDT [facility] Glucose 97 70 - 105 mg/dL 12/01/2022 9:12 AM EDT [facility] Calcium Ionized (mg/dL) 5.02 4.36 - 5.20 mg/dL 12/01/2022 9:12 AM EDT [facility] Blood ENTIRE LEFT UPPER ARM / Unknown Venipuncture / Unknown 12/01/2022 9:01 AM EDT 12/01/2022 9:06 AM EDT us Caleb Pacheco MD LAB BLOOD ORDERABLES Final Res ult [facility] [address] [address] [phone] documented in this encounter Visit Diagnoses Diagnosis Multiple myeloma without remission (HCC)- Primary documented in this encounter
--- OUTSIDE RECORDS SUMMARY | 2024-08-03 17:04 | XMS_ITS | Encounter Summary ---
Author Organization [employer] Address [address] [place] [address] Care Team Providers Care Dough Scaler And Mixer Name Role Phone Unavailable Primary Care Provider Unavailabl e Reason for Visit * Reason Comments Injections Zarxio * Episode Based Medication (Routine) - Closed Specialty Diagnoses / Procedures Referred By Ana Paula anne Referred To Contact Diagnoses Multiple myeloma without remission (HCC) Caleb Pacheco MD [address] [place] [phone] Phone: tel: fax: [facility] - [employer] [facility] [employer] [address] [place] [phone] Phone: tel: fax: Referral ID Status Reason Start Date Expiration Date Visits Re quested Visits Authorized [id number] Closed 11/25/2022 05/24/2023 1 1 Encounter Details Date Type Department Care Team (Late st Contact Info) Description 12/14/2022 11:15 AM EDT Infusion [facility] - [employer] [address] [place] [address] Caleb Pacheco MD [address] [place] [address] Multiple myeloma without remission (HCC) [...] Sign Reading Time Taken Comments Blood Pressure 149/70 12/14/2022 11:03 AM EDT Pulse 66 12/14/2022 11:03 AM EDT Temperature 36.4 ??C (97.6 ??F) 12/14/2022 11:03 AM E DT Respiratory Rate - - Oxygen Saturation 98% 12/14/2022 11:03 AM EDT Inhaled Oxygen Concentration - - Weight - - Height - - Body Mass Index - - documented in this encounter Progress Notes * Kandi Ford RN - 12/14/2022 11:15 AM EDT Pt tolerated injection well. documented in this encounter Plan of Treatment Not on file documented as of this encounter Visit Diagnoses Diagnosis Multiple myeloma without remission (HCC)- Primary documented in this encounter Administered Medications Inactive Administered Medications - up to 3 most recent administrations Medication Order MAR Action Action Date Dose Rate Site filgrastim-sndz (ZARXIO) injection 480 mcg 480 mcg Once, subcutaneous, On Wed12/14/22 at 1130, For 1 dose, ZARXIO TERTIARY AGENT Contact MD to consider discontinuation if ANC > 2,000/mL or WBC > 5,000/mL. Refrigerate.Indications:Multipl e myeloma without remission (HCC) Given 12/14/2022 11:07 AM EDT 480 mcg Left Arm documented in this encounter
--- OUTSIDE RECORDS SUMMARY | 2024-08-03 17:04 | XMS_ITS | Encounter Summary ---
Author Organization [employer] Address [address] [place] [address] Care Team Providers Care Screw Down Name Role Phone Unavailable Primary Care Provider Unavailabl e Reason for Visit * Reason Comments Follow-up Injections * Episode Based Medication (Routine) - Closed Specialty Diagnoses / Procedures Referred By Ana Paula anne Referred To Contact Diagnoses Multiple myeloma without remission (HCC) Procedures [place] DARATUMUMAB, HYALURONIDASE Daratumumab-[id number] Raimundo Pacheco MD [address] [place] [address] Phone: tel: fax: [facility] - [employer] [address] [place] [phone] Phone: tel: fax: Referral ID Status Reason Start Date Expiration Date Visits Re quested Visits Authorized [id number] Closed 10/20/2022 05/14/2024 1 100 Encounter Details Date Type Department Care Team (Late st Contact Info) Description 11/10/2022 8:45 AM EST Infusion [facility] - [facility] [address] [place] [address] Raimundo Pacheco MD [address] [place] [address] Multiple myeloma without remission (HCC) [...] Sign Reading Time Taken Comments Blood Pressure 131/60 11/10/2022 8:57 AM EST Pulse 61 11/10/2022 8:57 AM EST Temperature 36.9 ??C (98.4 ??F) 11/10/2022 8:54 AM ES T Respiratory Rate 18 11/10/2022 8:57 AM EST Oxygen Saturation 98% 11/10/2022 8:57 AM EST Inhaled Oxygen Concentration - - Weight 116.9 kg (257 lb 12.8 oz) 11/10/2022 8:54 AM EST Height - - Body Mass Index 39.76 06/16/2022 9:00 AM EDT documented in this encounter Progress Notes * Raimundo Pacheco MD - 11/10/2022 8:45 AM EST Chief Complaint: History of Present Illness: Francy Bailey is a 62 y.o. female who presents today for follow up of multiple myeloma. She is presently on weekly Darzalex along with pomalidomide and steroids. She is here for her second week of treatment. She did really well last time. She had no shortness of breath she did develop some redness in her face but no pruritus or rash. She denies any new bone pain or discomfort. Past Medical History: Diagnosis Date ??? Asthma [...] with elevation of her M spike 04/10. Multiple myeloma without remission (HCC) 06/16/2022 Initial Diagnosis Multiple myeloma without remission (HCC) 11/03/2022 - Chemotherapy Treatment Summary Treatment goal Palliative Plan Name [facility] Multiple Myeloma - daratumumab (Darzalex) IV d1,8,15,22 fb D1,15 fb d1 + pomalidomide(Pomalyst) PO d1-21 every 28 days Status Active Start Date 11/03/2022 End Date 09/07/2023 (Planned) Provider Raimundo Pacheco MD Chemotherapy pomalidomide 4 mg Cap, 4 mg, Oral, Daily, 1 of 1 cycle, Start date: --, End date: -- pnywbxkrbpr-ctbkuoyfogeed-jrov (DARZALEX FASPRO) 1,800 mg-30,000 unit/15 mL subcutaneous injection 1,800 mg, 1,800 mg, Subcutaneous, Once, 1 of 12 cycles Administration: 1,800 mg (11/03/2022), 1,800 mg (11/10/2022) Allergies: Ampicillin, Codeine, Indomethacin, Morphine, and Penicillin [...] 3 (three) times daily as needed. ??? LORazepam (ATIVAN) 0.5 MG tablet Take [...] by mouth 2 (two) times daily. ??? OneTouch Verio test strips Strp 2 (two) times daily. ??? PARoxetine (PAXIL) 30 MG tablet Take 30 mg by mouth daily. ??? Pomalyst 3 mg Cap Take by mouth. ??? potassium [...] Take 10 mg by mouth nightly. ??? Tab-A-Avery 400 mcg Tab Take 1 tablet by mouth daily. ??? Xarelto 20 mg tablet SMARTSI Tablet(s) By Mouth Every Evening No current facility-administered medications on file prior to visit. Review of Systems: Review of Systems All other systems reviewed and are negative. Vitals: Vitals: 11/10/22 0854 11/10/22 0857 BP: 131/60 Pulse: 61 Resp: 18 Temp: 98.4 ??F (36.9 ??C) SpO2: 98% Weight: 116.9 kg (257 lb 12.8 oz) Physical Exam: Physical Exam Vitals reviewed. HENT: Head: Normocephalic. Eyes: Pupils: Pupils are equal, round, and reactive to light. Cardiovascular: Rate and Rhythm: Normal rate and regular rhythm. Pulmonary: Effort: Pulmonary effort is normal. Breath sounds: Normal breath sounds. Abdominal: General: Abdomen is flat. Bowel sounds are normal. Palpations: Abdomen is soft. Musculoskeletal: General: Normal range of motion. Cervical back: Normal range of motion. Comments: Some subjective lower back pain Neurological: General: No focal deficit present. Mental Status: She is alert. Relevant Results: Orders Only on 11/10/2022 Component Date Value Ref Range Status ??? WBC 11/10/2022 2.6 (A) 4.5 - 12.5 K/??L Final ??? RBC 11/10/2022 3.35 (A) 4.00 - 5.25 M/??L Final ??? Hemoglobin 11/10/2022 11.4 (A) 12.0 - 16.0 GM/DL Final ??? Hematocrit 11/10/2022 36.5 36.0 - 46.0 % Final ??? MCV 11/10/2022 109 (A) 80 - 100 fL Final ??? MCH 11/10/2022 34.0 26.0 - 34.0 pg Final ??? MCHC 11/10/2022 31.2 31.0 - 37.0 GM/DL Final ??? RDW 11/10/2022 13.2 12.0 - 16.8 % Final ??? Platelets 11/10/2022 131 (A) 140 - 440 K/CU MM Final ??? MPV 11/10/2022 9.8 7.4 - 10.4 fL Final ??? % Neutros 11/10/2022 57 45 - 80 % Final ??? % Lymphs 11/10/2022 21 15 - 45 % Final ??? % Monos 11/10/2022 11 (A) 0 - 10 % Final ??? % Eos 11/10/2022 11 (A) 0 - 5 % Final ??? % Baso 11/10/2022 0 0 - 3 % Final ??? # Neutros 11/10/2022 1.47 (A) 2.00 - 8.80 K/??L Final ??? # Lymphs 11/10/2022 0.53 (A) 0.70 - 5.50 K/??L Final ??? # Monos 11/10/2022 0.29 0.00 - 1.70 K/??L Final ??? # Eos 11/10/2022 0.28 0.00 - 0.80 K/??L Final ??? # Baso 11/10/2022 0.00 0.00 - 0.20 K/??L Final Orders Only on 11/03/2022 Component Date Value Ref Range Status ??? Sodium 11/03/2022 141 136 - 146 meq/L Final ??? Potassium 11/03/2022 3.5 3.5 - 5.1 meq/L Final ??? Chloride 11/03/2022 107 102 - 112 meq/L Final ??? CO2 11/03/2022 29 21 - 32 meq/L Final ??? Anion Gap 11/03/2022 9 9 - 20 Final ??? BUN 11/03/2022 13 7 - 22 mg/dL Final ??? Creatinine 11/03/2022 0.83 0.55 - 1.02 mg/dL Final ??? BUN/Creatinine 11/03/2022 16 8 - 20 Final ??? Glucose 11/03/2022 108 (A) 74 - 106 mg/dL Final ??? Calcium 11/03/2022 9.3 8.5 - 10.1 mg/dL Final ??? Osmolality Calc 11/03/2022 281.9 Final ? ? eGFR Non (mL/min/1.73m2) 11/03/2022 >60 >=60 mL/min/1.73m2 Final ? ? eGFR (mL/min/1.73m2) 11/03/2022 >60 >=60 mL/min/1.73m2 Final eGFR of <60 suggests chronic kidney disease if found over a 3 month period of time. eGFR <15 indicates renal failure. ??? Protein, Total 11/03/2022 7.5 6.4 - 8.2 gm/dL Final ??? Albumin 11/03/2022 3.0 (A) 3.4 - 5.0 g/dL Final ??? Total Bilirubin 11/03/2022 0.4 0.2 - 1.3 mg/dL Final ??? Bilirubin, Direct 11/03/2022 0.2 0.0 - 0.2 mg/dL Final ??? Alkaline Phosphatase 11/03/2022 46 27 - 136 U/L Final ??? Globulin 11/03/2022 4.5 1.5 - 4.5 g/dL Final ??? A/G Ratio 11/03/2022 0.7 (A) 1.1 - 2.5 Final ??? AST 11/03/2022 17 5 - 37 U/L Final [facility] has become aware of sulfasalazine and sulfapyridine [...] to administration of the drug. ??? ALT 11/03/2022 18 12 - 78 U/L Final [facility] has become aware of sulfasalazine and sulfapyridine [...] to administration of the drug. ??? WBC 11/03/2022 3.2 (A) 4.5 - 12.5 K/??L Final ??? RBC 11/03/2022 3.41 (A) 4.00 - 5.25 M/??L Final ??? Hemoglobin 11/03/2022 11.4 (A) 12.0 - 16.0 GM/DL Final ??? Hematocrit 11/03/2022 35.8 (A) 36.0 - 46.0 % Final ??? MCV 11/03/2022 105 (A) 80 - 100 fL Final ??? MCH 11/03/2022 33.4 26.0 - 34.0 pg Final ??? MCHC 11/03/2022 31.8 31.0 - 37.0 GM/DL Final ??? RDW 11/03/2022 12.7 12.0 - 16.8 % Final ??? Platelets 11/03/2022 160 140 - 440 K/CU MM Final ??? MPV 11/03/2022 9.5 7.4 - 10.4 fL Final ??? % Neutros 11/03/2022 52 45 - 80 % Final ??? % Lymphs 11/03/2022 36 15 - 45 % Final ??? % Monos 11/03/2022 9 0 - 10 % Final ??? % Eos 11/03/2022 3 0 - 5 % Final ??? % Baso 11/03/2022 1 0 - 3 % Final ??? # Neutros 11/03/2022 1.66 (A) 2.00 - 8.80 K/??L Final ??? # Lymphs 11/03/2022 1.14 0.70 - 5.50 K/??L Final ??? # Monos 11/03/2022 0.27 0.00 - 1.70 K/??L Final ??? # Eos 11/03/2022 0.09 0.00 - 0.80 K/??L Final ??? # Baso 11/03/2022 0.03 0.00 - 0.20 K/??L Final No results found. Cancer Staging No matching staging information was found for the patient. Plan: She will receive Darzalex at 1800 mg subcutaneously today with premedication with dexamethasone 20 and Zofran 8. She will continue on the pomalidomide 3 mg a day. She return next week for her third week of treatment. I will see her in 2 weeks possibly. We will have to watch her blood counts ca refully because there has been some reduction. Probably in 3 to 4 weeks I will check her free lightchain ratio and M spike result. Free light chain ratio on her is not very helpful so the immunoelectrophoresis will be the most important test. I have answered her questions. She asked about getting her pediatric vaccinations and I stated that she would have to get that through the [facility] Signed: Electronically signed by RAIMUNDO PACHECO MD 11/10/22 5:31 PM EST No primary care provider on file. NG SECTION CHIEF documented in this encounter Plan of Treatment Not on file documented as of this encounter Visit Diagnoses Diagnosis Multiple myeloma without remission (HCC)- Primary documented in this encounter Administered Medications Inactive Administered Medications - up to 3 most recent administrations Medication Order MAR Action Action Date Dose Rate Site acetaminophen (TYLENOL) tablet 650 mg 650 mg Once, oral, On Wed11/10/22 at 1000, For 1 dose, Recommended maximum dose of acetaminophen is 4000 mg from all sources in 24 hoursIndications:Multiple myeloma without remission (HCC) Given 11/10/2022 9:28 AM EST 650 mg daratumumab-hyaluronidase -fihj (DARZALEX FASPRO) 1,800 mg-30,000 unit/15 mL subcutaneous injection 1,800 mg 1,800 mg Once, subcutaneous, On Wed11/10/22 at 1000, For 1 dose, FLAT DOSING Administer into the subcutaneous tissue of the abdomen about 3 inches to the right or left of the navel over 3-5 minutes. Rotate injection sites for successive injections.Indications:Mu ltiple myeloma without remission (HCC) Given 11/10/2022 9:58 AM EST 1,800 mg Abdominal Tissue diphenhydrAMINE (BENADRYL) capsule 25 mg 25 mg Once, oral, On Wed11/10/22 at 1000, For 1 dose,Indications:Multiple myeloma without remission (HCC) Given 11/10/2022 9:28 AM EST 25 mg documented in this encounter
--- OUTSIDE RECORDS SUMMARY | 2024-08-03 17:04 | XMS_ITS | Encounter Summary ---
Author Organization [employer] Address [address] [place] [address] Care Team Providers Care Visual Manager Name Role Phone Unavailable Primary Care Provider Unavailabl e Encounter Details Date Type Department Care Team (Late st Contact Info) Description 12/28/2022 Orders Only [facility] - [employer] [address] [place] [address] Caleb Pacheco MD [address] [facility] [address] [place] [address] Multiple myeloma, remission status unspecified (HCC) (Primary Dx) Social History Tobacco Use [...] - 8.2 g/dL 01/04/2023 6:49 AM EDT [facility] Albumin 3.17(L) 3.75 - 5.01 g/dL 01/04/2023 6:49 AM EDT [facility] Alpha 1 Globulin 0.37 0.19 - 0.46 g/dL 01/04/2023 6:49 AM EDT [facility] Alpha 2 Globulin 0.95 0.48 - 1.05 g/dL 01/04/2023 6:49 AM EDT [facility] Beta Globulin 1.26(H) 0.48 - 1.10 g/dL 01/04/2023 6:49 AM EDT [facility] Gamma 0.44(L) 0.62 - 1.51 g/dL 01/04/2023 6:49 AM EDT [facility] Immunofixation Reflex RALPH Done 01/04/2023 6:49 AM EDT ON LICENSE OF [facility] Monoclonal Protein 0.91 g/dL 2022 6:49 AM EDT ON LICENSE OF [facility] SPEP/RALPH Interpretation See Note 01/04/2023 6:49 AM EDT [facility] Comment: Monoclonal spike in the beta [...] Reflex See Note 01/04/2023 6:49 AM EDT ON LICENSE OF [facility] Comment: Authorized individuals can access the [facility] Enhanced Report using the following link: [email or web address] Performed By: [facility] [address] [place] [address] Public Health Staff Nurse: Parker Rangel MD, PhD Blood Venipuncture / Unknown 12/29/2022 11:00 AM EDT 12/29/2022 11:01 AM EDT us Caleb Pacheco MD LAB BLOOD ORDERABLES Final Res ult [facility] [address] [phone] * [facility] Quant FLC with Ratio(SENDOUT) (12/29/2022 11:00 AM EDT) [facility] Qnt Free Light Chains 12.68 3.30 - 19.40 mg/L 12/31/2022 4:43 PM EDT [facility] Comment: INTERPRETIVE INFORMATION: [facility] Qnt Free Light Chains Undetected antigen excess is a rare event but cannot be excluded. Free light chain results should always be interpreted in conjunction with other clinical and laboratory findings. Lambda Qnt Free Light Chains 17.30 5.71 - 26.30 mg/L 12/31/2022 4:43 PM EDT [facility] Comment: INTERPRETIVE INFORMATION: Lambda Qnt Free Light Chains Undetected antigen excess is a rare event but cannot be excluded. Free light chain results should always be interpreted in conjunction with other clinical and laboratory findings. [facility] Free Light Chain Ratio 0.73 0.26 - 1.65 12/31/2022 4:43 PM EDT [facility] Comment: Performed By: [facility] [address] [place] [address] Public Health Staff Nurse: Parker Rangel MD, PhD Blood ENTIRE LEFT UPPER ARM / Unknown Venipuncture / Unknown 12/29/2022 11:00 AM EDT 12/29/2022 11:01 AM EDT us Caleb Pacheco MD LAB BLOOD ORDERABLES Final Res ult [facility] [address] [phone] documented in this encounter Visit Diagnoses Diagnosis Multiple myeloma, remission status unspecified (HCC)- Primary documented in this encounter
--- OUTSIDE RECORDS SUMMARY | 2024-08-03 17:04 | XMS_ITS | Encounter Summary ---
Author Organization [employer] Address [address] [place] [address] Care Team Providers Care Manager Reimbursement Name Role Phone Unavailable Primary Care Provider Unavailabl e Reason for Visit * Reason Comments Medication Refill Encounter Details Date Type Department Care Team (Late st Contact Info) Description 12/18/2022 Refill [facility] - [facility] [address] [place] [address] Caleb Pacheco MD [facility] [facility] [address] [place] [address] Social History Tobacco Use Types [...]
--- OUTSIDE RECORDS SUMMARY | 2024-08-03 17:04 | XMS_ITS | Encounter Summary ---
Author Organization [employer] Address [address] [place] [address] Care Team Providers Care Teletype Clerk Name Role Phone Unavailable Primary Care Provider Unavailabl e Encounter Details Date Type Department Care Team (Late st Contact Info) Description 12/07/2022 Orders Only [facility] - [facility] [address] [place] [address] Caleb Pacheco MD [address] [facility] [address] [place] [address] Multiple myeloma without remission (HCC) [...] Results * (ABNORMAL) CBC with Automated Diff (12/08/2022 1:58 PM EDT) WBC 2.2(L) 4.5 - 12.5 K/??L 12/08/2022 2:07 PM EDT [facility] RBC 3.20(L) 4.00 - 5.25 M/??L 12/08/2022 2:07 PM EDT [facility] Hemoglobin 10.7(L) 12.0 - 16.0 GM/DL 12/08/2022 2:07 PM EDT [facility] Hematocrit 34.3(L) 36.0 - 46.0 % 12/08/2022 2:07 PM EDT [facility] MCV 107(H) 80 - 100 fL 12/08/2022 2:07 PM EDT [facility] MCH 33.4 26.0 - 34.0 pg 12/08/2022 2:07 PM EDT [facility] MCHC 31.2 31.0 - 37.0 GM/DL 12/08/2022 2:07 PM EDT [facility] RDW 13.7 12.0 - 16.8 % 12/08/2022 2:07 PM EDT [facility] Platelets 131(L) 140 - 440 K/CU MM 12/08/2022 2:07 PM EDT [facility] MPV 9.4 7.4 - 10.4 fL 12/08/2022 2:07 PM EDT [facility] % Neutros 35(L) 45 - 80 % 12/08/2022 2:07 PM EDT [facility] % Lymphs 30 15 - 45 % 12/08/2022 2:07 PM EDT [facility] % Monos 30(H) 0 - 10 % 12/08/2022 2:07 PM EDT [facility] % Eos 5 0 - 5 % 12/08/2022 2:07 PM EDT [facility] % Baso 1 0 - 3 % 12/08/2022 2:07 PM EDT [facility] # Neutros 0.77(L) 2.00 - 8.80 K/??L 12/08/2022 2:07 PM EDT [facility] # Lymphs 0.65(L) 0.70 - 5.50 K/??L 12/08/2022 2:07 PM EDT [facility] # Monos 0.66 0.00 - 1.70 K/??L 12/08/2022 2:07 PM EDT [facility] # Eos 0.11 0.00 - 0.80 K/??L 12/08/2022 2:07 PM EDT [facility] # Baso 0.01 0.00 - 0.20 K/??L 12/08/2022 2:07 PM EDT [facility] Blood ENTIRE LEFT UPPER ARM / Unknown Venipuncture / Unknown 12/08/2022 1:58 PM EDT 12/08/2022 2:00 PM EDT Narrative [facility] - 12/08/2022 2:07 PM EDT When CBC w/ Auto Diff [...] Res ult [facility] [address] [phone] documented in this encounter Visit Diagnoses Diagnosis Multiple myeloma without remission (HCC)- Primary documented in this encounter
--- OUTSIDE RECORDS SUMMARY | 2024-08-03 17:04 | XMS_ITS | Encounter Summary ---
Author Organization [employer] Address [address] [place] [address] Care Team Providers Care Slabber Light Name Role Phone Unavailable Primary Care Provider Unavailabl e Encounter Details Date Type Department Care Team (Late st Contact Info) Description 12/08/2022 Orders Only [facility] - [facility] [employer] [address] [place] [address] Raimundo Pacheco MD [address] [facility] [address] [place] [address] Social History Tobacco Use Types [...] Progress Notes * Raimundo Pacheco MD - 12/08/2022 5:01 PM EDT Chief Complaint: History of Present Illness: Francy Bailey is a 62 y.o. female who presents today for follow up of multiple myeloma she is on pomalidomide Darzalex and dexamethasone. We have had some issues because of cytopenias. She has had no fever. She still has lower back pain. She denies other additional concerns or problems. She has had no weight loss no peripheral numbness or discomfort. She brought her pomalidomide with her today. Past Medical History: Diagnosis Date ??? Asthma ??? 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 Chronic low back pain [...] Treatment Summary Treatment goal Palliative Plan Name [facility] Multiple Myeloma - daratumumab (Darzalex) IV d1,8,15,22 fb D1,15 fb d1 + pomalidomide(Pomalyst) PO d1-21 every 28 days Status Active Start Date 11/03/2022 End Date 09/21/2023 (Planned) Provider Raimundo Pacheco MD Chemotherapy pomalidomide 4 mg Cap, 4 mg, Oral, Daily, 1 of 1 cycle, Start date: --, End date: -- uuistvauldl-sfhcnkzxhllxp-lvqq (DARZALEX FASPRO) 1,800 mg-30,000 unit/15 mL subcutaneous [...] mg per tablet Take 1 tablet by mouth every 6 (six) hours as needed for Pain for up to 10 days. Max Daily Amount: 4 tablets 30 tablet 0 ? ? lidocaine HCl (magic mouthwash, without [...] Provider Last Rate Last Admin ??? [COMPLETED] denosumab (XGEVA) subcutaneous injection 120 mg 120 mg Subcutaneous Once Raimundo Pacheco MD 120 mg at 12/08/22 1452 ??? [COMPLETED] filgrastim-sndz (ZARXIO) injection 480 mcg 480 mcg Subcutaneous Once Reilly Campos,PharmD 480 mcg at 12/08/22 8788 Review of Systems: Review of Systems Musculoskeletal: Positive for back pain. All other [...] and neck supple. Comments: Lower back pain no palpable deformity Neurological: General: No focal deficit present. Relevant Results: Orders Only on 12/08/2022 Component Date Value [...] 5.02 4.36 - 5.20 mg/dL Final ??? Teaticket Qnt Free Light Chains 12/01/2022 10.68 3.30 - 19.40 mg/L Final INTERPRETIVE INFORMATION: Teaticket Qnt Free Light Chains Undetected antigen excess [...] with other clinical and laboratory findings. ??? Teaticket/Lambda Free Light Chain Ratio 12/01/2022 0.61 0.26 - 1.65 Final Performed By: [address] [place] [id number] Curriculum Writer: Parker Rangel MD, PhD ??? Total Protein, Serum 12/01/2022 [...] Note Final Authorized individuals can access the [facility] Enhanced Report using the following link: [email or web address] Performed By: [address] [place] [address] Curriculum Writer: Parker Rangel MD, PhD ??? Immunoglobulin G 12/01/2022 415 (L) 768 - 1632 mg/dL Final REFERENCE INTERVAL: Immunoglobulin G Access complete set of age- and/or gender-specific reference intervals for this test in the [facility] Test Directory ([employer]). Performed By: [facility] [address] [place] [address] Curriculum Writer: Parker Rangel MD, PhD ??? Immunoglobulin M 12/01/2022 21 (L) 35 - 263 mg/dL Final REFERENCE INTERVAL: Immunoglobulin M Access complete set of age- and/or gender-specific reference intervals for this test in the [facility] Laboratory Test Directory ([employer]). Performed By: [facility] [employer] [address] [place] [address] Curriculum Writer: Parker Rangel MD, PhD ??? Immunoglobulin A 12/01/2022 653 (H) 68 - 408 mg/dL Final REFERENCE INTERVAL: Immunoglobulin A Access complete set of age- and/or gender-specific reference intervals for this test in the [facility] Laboratory Test Directory ([employer]). Performed By: [facility] [employer] [address] [place] [address] Curriculum Writer: Parker Rangel MD, PhD ??? [employer] Electrophoresis Bill 12/01/2022 Billed Final Performed By: [place] [address] Curriculum Writer: Parker Rangel MD, PhD Infusion on 12/01/2022 [...] - 0.80 K/??L Final ??? # Baso 12/01/2022 0.02 0.00 - 0.20 K/??L Final Orders Only on 11/24/2022 Component Date Value Ref Range Status ??? WBC 11/24/2022 1.7 (LL) 4.5 - 12.5 K/??L Final ??? RBC 11/24/2022 3.46 (L) 4.00 - 5.25 M/??L Final ??? Hemoglobin 11/24/2022 11.5 (L) 12.0 - 16.0 GM/DL Final ??? Hematocrit 11/24/2022 37.1 36.0 - 46.0 % Final ??? MCV 11/24/2022 107 (H) 80 - 100 fL Final ??? MCH 11/24/2022 33.2 26.0 - 34.0 pg Final ??? MCHC 11/24/2022 31.0 31.0 - 37.0 GM/DL Final ??? RDW 11/24/2022 13.3 12.0 - 16.8 % Final ??? Platelets 11/24/2022 128 (L) 140 - 440 K/CU MM Final ??? MPV 11/24/2022 9.1 7.4 - 10.4 fL Final ??? % Neutros 11/24/2022 13 (L) 45 - 80 % Final ??? % Lymphs 11/24/2022 53 (H) 15 - 45 % Final ??? % Monos 11/24/2022 28 (H) 0 - 10 % Final ??? % Eos 11/24/2022 4 0 - 5 % Final ??? % Baso 11/24/2022 2 0 - 3 % Final ??? # Neutros 11/24/2022 0.22 (L) 2.00 - 8.80 K/??L Final ??? # Lymphs 11/24/2022 0.90 0.70 - 5.50 K/??L Final ??? # Monos 11/24/2022 0.47 0.00 - 1.70 K/??L Final ??? # Eos 11/24/2022 0.07 0.00 - 0.80 K/??L Final ??? # Baso 11/24/2022 0.04 0.00 - 0.20 K/??L Final No results found. Cancer Staging No matching staging information was found for the patient. Plan: Her white blood count is really low so I held her Darzalex again today. She has 13 pomalidomide's and I held that also. I will give her Granix today 480 mcg. Because of transportation issues she is not can be able to get that the rest of the week. She will be able to do it next Wednesday I will see her Wednesday and if her blood counts decent we will treat her with the Darzalex and restart the pomalidomide. In spite of this problem with having to stop her treatment at times she has had a 50% reduction in her M spike. Her free light chain ratio is something we cannot use since it is an accurate in her situation. Signed: Electronically signed by RAIMUNDO PACHECO MD 12/08/22 5:01 PM EDT No primary care provider on file. documented in this encounter Plan of Treatment Not on file documented as of this encounter Visit Diagnoses Not on filedocumented in this encounter
--- OUTSIDE RECORDS SUMMARY | 2024-08-03 17:04 | XMS_ITS | Encounter Summary ---
Author Organization [employer] Address [address] [place] [address] Care Team Providers Care Paramedic Supervisor Name Role Phone Unavailable Primary Care Provider Unavailabl e Reason for Visit * Reason Comments Follow-up Encounter Details Date Type Department Care Team (Late st Contact Info) Description 12/01/2022 8:45 AM EDT Infusion [facility] - [facility] [address] [place] [address] Raimundo Pacheco MD [facility] [facility] [address] [place] [address] Multiple myeloma without remission (HCC) [...] Sign Reading Time Taken Comments Blood Pressure 121/73 12/01/2022 9:07 AM EDT Pulse 68 12/01/2022 9:07 AM EDT Temperature 36.4 ??C (97.5 ??F) 12/01/2022 9:07 AM ED T Respiratory Rate 19 12/01/2022 9:07 AM EDT Oxygen Saturation 97% 12/01/2022 9:07 AM EDT Inhaled Oxygen Concentration - - Weight 119.7 kg (264 lb) 12/01/2022 9:07 AM EDT Height - - Body Mass Index 40.71 06/16/2022 9:00 AM EDT documented in this encounter Progress Notes * Raimundo Pacheco MD - 12/01/2022 8:45 AM EDT Chief Complaint: History of Present Illness: Francy Bailey is a 62 y.o. female who presents today for follow up of multiple myeloma. We had to give her 2 weeks off from treatment because she had such severe neutropenia. I have cut herpomalidomide back to 2 mg. She has been on oral antibiotic and she has had no fever. She has significant back pain. She has had really no other additional complaints or problems. Past Medical History: Diagnosis [...] Treatment Summary Treatment goal Palliative Plan Name [facility] Multiple Myeloma - daratumumab (Darzalex) IV d1,8,15,22 fb D1,15 fb d1 + pomalidomide(Pomalyst) PO d1-21 every 28 days Status Active Start Date 11/03/2022 End Date 09/21/2023 (Planned) Provider Raimundo Pacheco MD Chemotherapy pomalidomide 4 mg Cap, 4 mg, Oral, Daily, 1 of 1 cycle, Start date: --, End date: -- vlhnfwkumfl-dmeeaasecajch-ayen (DARZALEX FASPRO) 1,800 mg-30,000 unit/15 mL subcutaneous [...] Tablet(s) By Mouth Every Evening ??? [DISCONTINUED] Pomalyst 3 mg Cap Take by mouth. No current facility-administered medications on file prior to visit. Review of Systems: Review of Systems Musculoskeletal: Positive for back pain. All other systems reviewed and are negative. Vitals: Vitals: 12/01/22 0907 BP: 121/73 Pulse: 68 Resp: 19 Temp: 97.5 ??F (36.4 ??C) SpO2: 97% Weight: 119.7 kg (264 lb) Physical Exam: Physical Exam Vitals reviewed. HENT: [...] of motion and neck supple. Comments: Significant pain to the right of midline in the lumbar spine. Neurological: General: No focal deficit present. Mental Status: She is alert. Relevant Results: Orders Only on 12/01/2022 Component Date Value Ref Range Status ??? Sodium 12/01/2022 141 136 - 146 meq/L Final ??? Potassium 12/01/2022 4.0 3.5 - 5.1 meq/L Final ??? Chloride 12/01/2022 110 (A) 98 - 108 meq/L Final ??? CO2 [...] 12/01/2022 5.02 4.36 - 5.20 mg/dL Final Infusion on 12/01/2022 Component Date Value Ref Range Status ??? WBC 12/01/2022 2.6 (A) 4.5 - 12.5 K/??L Final ??? RBC 12/01/2022 2.99 (A) 4.00 - 5.25 M/??L Final ??? Hemoglobin 12/01/2022 10.2 (A) 12.0 - 16.0 GM/DL Final ??? Hematocrit 12/01/2022 32.4 (A) 36.0 - 46.0 % Final ??? MCV 12/01/2022 108 (A) 80 - 100 fL Final ??? MCH 12/01/2022 34.1 (A) 26.0 - 34.0 pg Final ??? MCHC [...] % Final ??? # Neutros 12/01/2022 1.80 (A) 2.00 - 8.80 K/??L Final ??? # Lymphs 12/01/2022 0.56 (A) 0.70 - 5.50 K/??L Final ??? # Monos 12/01/2022 0.11 0.00 - 1.70 K/??L Final ??? # Eos 12/01/2022 0.06 0.00 - 0.80 K/??L Final ??? # Baso 12/01/2022 0.02 0.00 - 0.20 K/??L Final Orders Only on 11/24/2022 Component Date Value Ref Range Status ??? WBC 11/24/2022 1.7 (A) 4.5 - 12.5 K/??L Final ??? RBC 11/24/2022 3.46 (A) 4.00 - 5.25 M/??L Final ??? Hemoglobin 11/24/2022 11.5 (A) 12.0 - 16.0 GM/DL Final ??? Hematocrit 11/24/2022 37.1 36.0 - 46.0 % Final ??? MCV 11/24/2022 107 (A) 80 - 100 fL Final ??? MCH 11/24/2022 33.2 26.0 - 34.0 pg Final ??? MCHC 11/24/2022 31.0 31.0 - 37.0 GM/DL Final ??? RDW 11/24/2022 13.3 12.0 - 16.8 % Final ??? Platelets 11/24/2022 128 (A) 140 - 440 K/CU MM Final ??? MPV 11/24/2022 9.1 7.4 - 10.4 fL Final ??? % Neutros 11/24/2022 13 (A) 45 - 80 % Final ??? % Lymphs 11/24/2022 53 (A) 15 - 45 % Final ??? % Monos 11/24/2022 28 (A) 0 - 10 % Final ??? % Eos 11/24/2022 4 0 - 5 % Final ??? % Baso 11/24/2022 2 0 - 3 % Final ??? # Neutros 11/24/2022 0.22 (A) 2.00 - 8.80 K/??L Final ??? # Lymphs 11/24/2022 0.90 0.70 - 5.50 K/??L Final ??? # Monos 11/24/2022 0.47 0.00 - 1.70 K/??L Final ??? # Eos 11/24/2022 0.07 0.00 - 0.80 K/??L Final ??? # Baso 11/24/2022 0.04 0.00 - 0.20 K/??L Final Orders Only on 11/17/2022 Component Date Value Ref Range Status ??? Sodium 11/17/2022 142 136 - 146 meq/L Final ??? Potassium 11/17/2022 3.3 (A) 3.5 - 5.1 meq/L Final ??? Chloride 11/17/2022 109 102 - 112 meq/L Final ??? CO2 11/17/2022 28 21 - 32 meq/L Final ??? Anion Gap 11/17/2022 8 (A) 9 - 20 Final ??? BUN 11/17/2022 11 7 - 22 mg/dL Final ??? Creatinine 11/17/2022 0.82 0.55 - 1.02 mg/dL Final ??? BUN/Creatinine 11/17/2022 13 8 - 20 Final ??? Glucose 11/17/2022 97 74 - 106 mg/dL Final ??? Calcium 11/17/2022 9.0 8.5 - 10.1 mg/dL Final ??? Osmolality Calc 11/17/2022 282.4 Final ? ? eGFR Non (mL/min/1.73m2) 11/17/2022 >60 >=60 mL/min/1.73m2 Final ? ? eGFR (mL/min/1.73m2) 11/17/2022 >60 >=60 mL/min/1.73m2 Final eGFR of <60 suggests chronic kidney disease if found over a 3 month period of time. eGFR <15 indicates renal failure. ??? Protein, Total 11/17/2022 6.6 6.4 - 8.2 gm/dL Final ??? Albumin 11/17/2022 3.0 (A) 3.4 - 5.0 g/dL Final ??? Total Bilirubin 11/17/2022 0.3 0.2 - 1.3 mg/dL Final ??? Bilirubin, Direct 11/17/2022 0.1 0.0 - 0.2 mg/dL Final ??? Alkaline Phosphatase 11/17/2022 52 27 - 136 U/L Final ??? Globulin 11/17/2022 3.6 1.5 - 4.5 g/dL Final ??? A/G Ratio 11/17/2022 0.8 (A) 1.1 - 2.5 Final ??? AST 11/17/2022 13 5 - 37 U/L Final [employer] has become aware of sulfasalazine and [...] to administration of the drug. ??? ALT 11/17/2022 18 12 - 78 U/L Final [employer] has become aware of sulfasalazine and [...] to administration of the drug. ??? WBC 11/17/2022 1.6 (A) 4.5 - 12.5 K/??L Final ??? RBC 11/17/2022 3.37 (A) 4.00 - 5.25 M/??L Final ??? Hemoglobin 11/17/2022 11.3 (A) 12.0 - 16.0 GM/DL Final ??? Hematocrit 11/17/2022 36.6 36.0 - 46.0 % Final ??? MCV 11/17/2022 109 (A) 80 - 100 fL Final ??? MCH 11/17/2022 33.5 26.0 - 34.0 pg Final ??? MCHC 11/17/2022 30.9 (A) 31.0 - 37.0 GM/DL Final ??? RDW 11/17/2022 13.1 12.0 - 16.8 % Final ??? Platelets 11/17/2022 102 (A) 140 - 440 K/CU MM Final ??? MPV 11/17/2022 9.4 7.4 - 10.4 fL Final ??? % Neutros 11/17/2022 19 (A) 45 - 80 % Final ??? % Lymphs 11/17/2022 44 15 - 45 % Final ??? % Monos 11/17/2022 20 (A) 0 - 10 % Final ??? % Eos 11/17/2022 16 (A) 0 - 5 % Final ??? % Baso 11/17/2022 1 0 - 3 % Final ??? # Neutros 11/17/2022 0.30 (A) 2.00 - 8.80 K/??L Final ??? # Lymphs 11/17/2022 0.71 0.70 - 5.50 K/??L Final ??? # Monos 11/17/2022 0.32 0.00 - 1.70 K/??L Final ??? # Eos 11/17/2022 0.26 0.00 - 0.80 K/??L Final ??? # Baso 11/17/2022 0.01 0.00 - 0.20 K/??L Final No results found. Cancer Staging No matching staging information was found for the patient. Plan: We are to go back on treatment today she received Darzalex 1800 mg subcutaneously premedicated with dexamethasone 20 Zofran 8. She is on the pomalidomide 2 mg a day. I will see her back in a week. I did do her free light chain ratio today but since her treatment is been spotty I am not sure Iwill make any changes based on the result. She was not interested in radiation to her lumbar spine even though we have done an MRI of that area and is quite abnormal. She will receive some pain medicine and I sent in a prescription for hydrocodone. I will see her again in a week. I have answered her questions Signed: Electronically signed by RAIMUNDO PACHECO MD 12/01/22 5:16 PM EDT No primary care provider on file. documented in this encounter Plan of Treatment Not on file documented as of this encounter Procedures Procedure Name Priority Date/Time Associated Diagnosis Comments CBC W/ AUTO DIFF Routine 12/01/2022 9:01 AM EDT Multiple myeloma without remission (HCC) documented in this encounter Results * (ABNORMAL) CBC w/ Auto Diff (12/01/2022 9:01 AM EDT) WBC 2.6(L) 4.5 - 12.5 K/??L 12/01/2022 9:10 AM EDT [facility] RBC 2.99(L) 4.00 - 5.25 M/??L 12/01/2022 9:10 AM EDT [facility] Hemoglobin 10.2(L) 12.0 - 16.0 GM/DL 12/01/2022 9:10 AM EDT [facility] Hematocrit 32.4(L) 36.0 - 46.0 % 12/01/2022 9:10 AM EDT [facility] MCV 108(H) 80 - 100 fL 12/01/2022 9:10 AM EDT [facility] MCH 34.1(H) 26.0 - 34.0 pg 12/01/2022 9:10 AM EDT [facility] MCHC 31.5 31.0 - 37.0 GM/DL 12/01/2022 9:10 AM EDT [facility] RDW 13.4 12.0 - 16.8 % 12/01/2022 9:10 AM EDT [facility] Platelets 146 140 - 440 K/CU MM 12/01/2022 9:10 AM EDT [facility] MPV 9.5 7.4 - 10.4 fL 12/01/2022 9:10 AM EDT [facility] % Neutros 71 45 - 80 % 12/01/2022 9:10 AM EDT [facility] % Lymphs 22 15 - 45 % 12/01/2022 9:10 AM EDT [facility] % Monos 4 0 - 10 % 12/01/2022 9:10 AM EDT [facility] % Eos 2 0 - 5 % 12/01/2022 9:10 AM EDT [facility] % Baso 1 0 - 3 % 12/01/2022 9:10 AM EDT [facility] # Neutros 1.80(L) 2.00 - 8.80 K/??L 12/01/2022 9:10 AM EDT [facility] # Lymphs 0.56(L) 0.70 - 5.50 K/??L 12/01/2022 9:10 AM EDT [facility] # Monos 0.11 0.00 - 1.70 K/??L 12/01/2022 9:10 AM EDT [facility] # Eos 0.06 0.00 - 0.80 K/??L 12/01/2022 9:10 AM EDT [facility] # Baso 0.02 0.00 - 0.20 K/??L 12/01/2022 9:10 AM EDT [facility] Blood ENTIRE LEFT UPPER ARM / Unknown Venipuncture / Unknown 12/01/2022 9:01 AM EDT 12/01/2022 9:06 AM EDT Narrative [facility] - 12/01/2022 9:10 AM EDT When CBC w/ Auto Diff [...] ult [facility] [address] [place] [address], [facility] [phone] documented in this encounter Visit Diagnoses Diagnosis Multiple myeloma without remission (HCC)- Primary documented in this encounter
--- OUTSIDE RECORDS SUMMARY | 2024-08-03 17:04 | XMS_ITS | Encounter Summary ---
Author Organization [employer] Address [address] [place] [address] Care Team Providers Care Claims Assistant Name Role Phone Unavailable Primary Care Provider Unavailabl e Encounter Details Date Type Department Care Team (Late st Contact Info) Description 11/17/2022 Orders Only [facility] - [employer] [address] [place] [address] Caleb Pacheco MD [address] [facility] [address] [place] [address] Multiple myeloma without remission (HCC) [...] Diagnosis Comments CBC W/ AUTO DIFF STAT 11/17/2022 1:55 PM EST Multiple myeloma without remission (HCC) HEPATIC FUNCTION PANEL Routine 11/17/2022 1:55 PM EST Multiple myeloma without remission (HCC) BASIC METABOLIC PANEL STAT 11/17/2022 1:55 PM EST Multiple myeloma without remission (HCC) documented in this encounter Results * (ABNORMAL) CBC with Automated Diff (11/17/2022 1:55 PM EST) WBC 1.6(LL) 4.5 - 12.5 K/??L 11/17/2022 2:12 PM EST [facility] RBC 3.37(L) 4.00 - 5.25 M/??L 11/17/2022 2:12 PM EST [facility] Hemoglobin 11.3(L) 12.0 - 16.0 GM/DL 11/17/2022 2:12 PM EST [facility] Hematocrit 36.6 36.0 - 46.0 % 11/17/2022 2:12 PM EST [facility] MCV 109(H) 80 - 100 fL 11/17/2022 2:12 PM EST [facility] MCH 33.5 26.0 - 34.0 pg 11/17/2022 2:12 PM EST [facility] MCHC 30.9(L) 31.0 - 37.0 GM/DL 11/17/2022 2:12 PM EST [facility] RDW 13.1 12.0 - 16.8 % 11/17/2022 2:12 PM EST [facility] Richardson[facility] Platelets 102(L) 140 - 440 K/CU MM 11/17/2022 2:12 PM EST [facility] MPV 9.4 7.4 - 10.4 fL 11/17/2022 2:12 PM EST [facility] % Neutros 19(L) 45 - 80 % 11/17/2022 2:12 PM EST [facility] % Lymphs 44 15 - 45 % 11/17/2022 2:12 PM EST [facility] % Monos 20(H) 0 - 10 % 11/17/2022 2:12 PM EST [facility] % Eos 16(H) 0 - 5 % 11/17/2022 2:12 PM EST [facility] % Baso 1 0 - 3 % 11/17/2022 2:12 PM EST [facility] # Neutros 0.30(L) 2.00 - 8.80 K/??L 11/17/2022 2:12 PM EST [facility] # Lymphs 0.71 0.70 - 5.50 K/??L 11/17/2022 2:12 PM EST [facility] # Monos 0.32 0.00 - 1.70 K/??L 11/17/2022 2:12 PM EST [facility] # Eos 0.26 0.00 - 0.80 K/??L 11/17/2022 2:12 PM EST [facility] # Baso 0.01 0.00 - 0.20 K/??L 11/17/2022 2:12 PM EST [facility] Blood ENTIRE LEFT UPPER ARM / Unknown Venipuncture / Unknown 11/17/2022 1:55 PM EST 11/17/2022 1:59 PM EST Narrative [facility] - 11/17/2022 2:12 PM EST When CBC w/ Auto Diff [...] Final Res ult [facility] [address] [phone] * (ABNORMAL) Hepatic function panel (11/17/2022 1:55 PM EST) Pathologist [facility] Protein, Total 6.6 6.4 - 8.2 gm/dL 11/18/2022 10:59 AM EST [facility] Albumin 3.0(L) 3.4 - 5.0 g/dL 11/18/2022 10:59 AM [facility] Total Bilirubin 0.3 0.2 - 1.3 mg/dL 11/18/2022 10:59 AM [facility] Bilirubin, Direct 0.1 0.0 - 0.2 mg/dL 11/18/2022 10:59 AM [facility] Alkaline Phosphatase 52 27 - 136 U/L 11/18/2022 10:59 AM [facility] Globulin 3.6 1.5 - 4.5 g/dL 11/18/2022 10:59 AM [facility] A/G Ratio 0.8(L) 1.1 - 2.5 11/18/2022 10:59 AM [facility] AST 13 5 - 37 U/L 11/18/2022 10:59 AM [facility] Comment:[employer] has become aware of sulfasalazine and sulfapyridine [...] drug. ALT 18 12 - 78 U/L 11/18/2022 10:59 AM [facility] Comment:[employer] has become aware of sulfasalazine and sulfapyridine [...] UPPER ARM / Unknown Venipuncture / Unknown 11/17/2022 1:55 PM EST 11/17/2022 1:59 PM EST us Caleb Pacheco MD LAB BLOOD ORDERABLES Final Res ult [facility] [address] [employer] [address] [phone] * (ABNORMAL) Basic Metabolic Panel (11/17/2022 1:55 PM EST) Sodium 142 136 - 146 meq/L 11/18/2022 11:00 AM [facility] Potassium 3.3(L) 3.5 - 5.1 meq/L 11/18/2022 11:00 AM [facility] Chloride 109 102 - 112 meq/L 11/18/2022 11:00 AM [facility] CO2 28 21 - 32 meq/L 11/18/2022 11:00 AM [facility] Anion Gap 8(L) 9 - 20 11/18/2022 11:00 AM [facility] BUN 11 7 - 22 mg/dL 11/18/2022 11:00 AM [facility] Creatinine 0.82 0.55 - 1.02 mg/dL 11/18/2022 11:00 AM [facility] BUN/Creatinine 13 8 - 20 11/18/2022 11:00 AM [facility] Glucose 97 74 - 106 mg/dL 11/18/2022 11:00 AM [facility] Calcium 9.0 8.5 - 10.1 mg/dL 11/18/2022 11:00 AM [facility] Osmolality Calc 282.4 11:00 AM [facility] eGFR Non (mL/min/1.73m2) >60 >=60 mL/min/1.7 3m2 11/18/2022 11:00 AM [facility] eGFR (mL/min/1.73m2) >60 >=60 mL/min/1.7 3m2 11/18/2022 11:00 AM [facility] Comment:eGFR of <60 suggests chronic kidney disease if found over a 3 month period of time. eGFR <15 indicates renal failure. Blood ENTIRE LEFT UPPER ARM / Unknown Venipuncture / Unknown 11/17/2022 1:55 PM EST 11/17/2022 1:59 PM EST us Caleb Pacheco MD LAB BLOOD ORDERABLES Final Res ult [facility] [address] [phone] documented in this encounter Visit Diagnoses Diagnosis Multiple myeloma without remission (HCC) documented in this encounter
--- OUTSIDE RECORDS SUMMARY | 2024-08-03 17:04 | XMS_ITS | Encounter Summary ---
Author Organization [employer] Address [address] [place] [address] Care Team Providers Care Ballroom Dance Instructor Name Role Phone Unavailable Primary Care Provider Unavailabl e Encounter Details Date Type Department Care Team (Latest Contact Info) Description 12/22/2022 11:00 AM EDT Lab Patient [facility] - [employer] [address] [place] [address] Caleb Pacheco MD [facility] [facility] [address] [place] [address] Multiple myeloma without remission (HCC) [...] Pressure - - Pulse - - Temperature 36.9 ??C (98.4 ??F) 12/22/2022 10:54 AM E DT Respiratory Rate - - Oxygen Saturation - - Inhaled Oxygen Concentration - - Weight 119 kg (262 lb 6.4 oz) 12/22/2022 10:54 A M EDT Height - - Body Mass Index 40.47 06/16/2022 9:00 AM EDT documented in this encounter Plan of Treatment Not on file documented as of this encounter Procedures Procedure Name Priority Date/Time Associated Diagnosis Comments CBC W/ AUTO DIFF STAT 12/22/2022 10:5 0 AM EDT Multiple myeloma without remission (HCC) documented in this encounter Results * (ABNORMAL) CBC with Automated Diff (12/22/2022 10:50 AM EDT) WBC 3.1(L) 4.5 - 12.5 K/??L 12/22/2022 11:00 AM EDT [facility] RBC 3.20(L) 4.00 - 5.25 M/??L 12/22/2022 11:00 AM EDT [facility] Hemoglobin 10.8(L) 12.0 - 16.0 GM/DL 12/22/2022 11:00 AM EDT [facility] Hematocrit 34.5(L) 36.0 - 46.0 % 12/22/2022 11:00 AM EDT [facility] MCV 108(H) 80 - 100 fL 12/22/2022 11:00 AM EDT [facility] MCH 33.8 26.0 - 34.0 pg 12/22/2022 11:00 AM EDT [facility] MCHC 31.3 31.0 - 37.0 GM/DL 12/22/2022 11:00 AM EDT [facility] RDW 14.6 12.0 - 16.8 % 12/22/2022 11:00 AM EDT [facility] Platelets 168 140 - 440 K/CU MM 12/22/2022 11:00 AM EDT [facility] MPV 9.9 7.4 - 10.4 fL 12/22/2022 11:00 AM EDT [facility] % Neutros 68 45 - 80 % 12/22/2022 11:00 AM EDT [facility] % Lymphs 22 15 - 45 % 12/22/2022 11:00 AM EDT [facility] % Monos 6 0 - 10 % 12/22/2022 11:00 AM EDT [facility] % Eos 4 0 - 5 % 12/22/2022 11:00 AM EDT [facility] % Baso 1 0 - 3 % 12/22/2022 11:00 AM EDT [facility] # Neutros 2.12 2.00 - 8.80 K/??L 12/22/2022 11:00 AM EDT [facility] # Lymphs 0.70 0.70 - 5.50 K/??L 12/22/2022 11:00 AM EDT [facility] # Monos 0.18 0.00 - 1.70 K/??L 12/22/2022 11:00 AM EDT [facility] # Eos 0.11 0.00 - 0.80 K/??L 12/22/2022 11:00 AM EDT [facility] # Baso 0.02 0.00 - 0.20 K/??L 12/22/2022 11:00 AM EDT [facility] Blood ENTIRE LEFT UPPER ARM / Unknown Venipuncture / Unknown 12/22/2022 10:50 AM EDT 12/22/2022 10:56 AM EDT Narrative [facility] - 12/22/2022 11:00 AM EDT When CBC [...] ult [facility] [address] [phone] documented in this encounter Visit Diagnoses Diagnosis Multiple myeloma without remission (HCC) documented in this encounter
--- OUTSIDE RECORDS SUMMARY | 2024-08-03 17:04 | XMS_ITS | Encounter Summary ---
Author Organization [employer] Address [address] [place] [address] Care Team Providers Care Kennel Operator Name Role Phone Unavailable Primary Care Provider Unavailabl e Encounter Details Date Type Department Care Team (Late st Contact Info) Description 12/08/2022 Orders Only [facility] - [employer] [address] [place] [phone] Coral Leo Multiple myeloma without remission (HCC) Social History [...] Diagnosis Comments CBC W/ AUTO DIFF STAT 12/08/2022 1:58 PM EDT Multiple myeloma without remission (HCC) documented in this encounter Results * (ABNORMAL) CBC with Automated Diff (12/08/2022 1:58 PM EDT) WBC 2.2(L) 4.5 - 12.5 K/??L 12/08/2022 2:07 PM EDT [facility] - [employer] RBC 3.20(L) 4.00 - 5.25 M/??L 12/08/2022 2:07 PM EDT [facility] Hemoglobin 10.7(L) 12.0 - 16.0 GM/DL 12/08/2022 2:07 PM EDT [facility] Hematocrit 34.3(L) 36.0 - 46.0 % 12/08/2022 2:07 PM EDT [facility] MCV 107(H) 80 - 100 fL 12/08/2022 2:07 PM EDT [facility] MCH 33.4 26.0 - 34.0 pg 12/08/2022 2:07 PM EDT [facility] MCHC 31.2 31.0 - 37.0 GM/DL 12/08/2022 2:07 PM EDT [facility] RDW 13.7 12.0 - 16.8 % 12/08/2022 2:07 PM EDT [facility] Platelets 131(L) 140 - 440 K/CU MM 12/08/2022 2:07 PM EDT [facility] MPV 9.4 7.4 - 10.4 fL 12/08/2022 2:07 PM EDT [facility] % Neutros 35(L) 45 - 80 % 12/08/2022 2:07 PM EDT [facility] % Lymphs 30 15 - 45 % 12/08/2022 2:07 PM EDT [facility] % Monos 30(H) 0 - 10 % 12/08/2022 2:07 PM EDT [facility] % Eos 5 0 - 5 % 12/08/2022 2:07 PM EDT [facility] % Baso 1 0 - 3 % 12/08/2022 2:07 PM EDT [facility] # Neutros 0.77(L) 2.00 - 8.80 K/??L 12/08/2022 2:07 PM EDT [facility] # Lymphs 0.65(L) 0.70 - 5.50 K/??L 12/08/2022 2:07 PM EDT [facility] # Monos 0.66 0.00 - 1.70 K/??L 12/08/2022 2:07 PM EDT [facility] # Eos 0.11 0.00 - 0.80 K/??L 12/08/2022 2:07 PM EDT [facility] # Baso 0.01 0.00 - 0.20 K/??L 12/08/2022 2:07 PM EDT [facility] G[facility] Blood ENTIRE LEFT UPPER ARM / Unknown Venipuncture / Unknown 12/08/2022 1:58 PM EDT 12/08/2022 2:00 PM EDT Narrative [facility] - 12/08/2022 2:07 PM EDT When [...] ult [facility] [address] [place] [place] [address], [place] [phone] documented in this encounter Visit Diagnoses Diagnosis Multiple myeloma without remission (HCC) documented in this encounter
--- OUTSIDE RECORDS SUMMARY | 2024-08-03 17:04 | XMS_ITS | Encounter Summary ---
Author Organization [employer] Address [address] [place] [address] Care Team Providers Care Educational Aid Name Role Phone Unavailable Primary Care Provider Unavailabl e Reason for Visit * Reason Comments Injections Darzalex * Episode Based Medication (Routine) - Closed Specialty Diagnoses / Procedures Referred By Ana Paula anne Referred To Contact Diagnoses Multiple myeloma without remission (HCC) Procedures NE DARATUMUMAB, HYALURONIDASE [id number] Caleb Pacheco MD [address] [place] [address] Phone: tel: fax: [facility] [employer] [address] [place] [phone] Phone: tel: fax: Referral ID Status Reason Start Date Expiration Date Visits Re quested Visits Authorized [id number] Closed 10/20/2022 05/14/2024 1 100 Encounter Details Date Type Department Care Team (Late st Contact Info) Description 12/01/2022 9:30 AM EDT Infusion [facility] [address] [place] [address] Caleb Pacheco MD [address] [place] [address] Multiple myeloma without remission (HCC) [...] Sign Reading Time Taken Comments Blood Pressure 123/71 12/01/2022 9:51 AM EDT Pulse 64 12/01/2022 9:51 AM EDT Temperature 36.6 ??C (97.8 ??F) 12/01/2022 9:51 AM ED T Respiratory Rate 18 12/01/2022 9:51 AM EDT Oxygen Saturation 98% 12/01/2022 9:51 AM EDT Inhaled Oxygen Concentration - - Weight - - Height - - Body Mass Index - - documented in this encounter Progress Notes * Ivet Yee RN - 12/01/2022 9:30 AM EDT Pt tolerated Darzalex today. Will return in 1 week. documented in [...] 650 mg 650 mg Once, oral, On Wed12/01/22 at 1030, For 1 dose, Recommended maximum dose of acetaminophen is 4000 mg from all sources in 24 hoursIndications:Multip le myeloma without remission (HCC) Given 12/01/2022 9:56 AM EDT 650 mg daratumumab-hyaluronida se-fihj (DARZALEX FASPRO) 1,800 mg-30,000 unit/15 mL subcutaneous injection 1,800 mg 1,800 mg Once, subcutaneous, at 300 mL/hr, On Wed12/01/22 at 1030, For 1 dose, FLAT DOSING Administer into the subcutaneous tissue of the abdomen about 3 inches to the right or left of the navel over 3-5 minutes. Rotate injection sites for successive injections.Indications: Multiple myeloma without remission (HCC) Given 12/01/2022 10:42 AM EDT 1,800 mg 300 mL/hr Abdominal Tissue diphenhydrAMINE (BENADRYL) capsule 25 mg 25 mg Once, oral, On Wed12/01/22 at 1030, For 1 dose,Indications:Multip le myeloma without remission (HCC) Given 12/01/2022 9:56 AM EDT 25 mg ondansetron (ZOFRAN-ODT) disintegrating tablet 8 mg 8 mg Once, oral, On Wed12/01/22 at 1030, For 1 dose Given 12/01/2022 10:01 AM EDT 8 mg documented in this encounter
--- OUTSIDE RECORDS SUMMARY | 2024-08-03 17:04 | XMS_ITS | Encounter Summary ---
Author Organization [employer] Address [address] [place] [address] Care Team Providers Care Rehabilitation Medicine Physician Name Role Phone Unavailable Primary Care Provider Unavailabl e Reason for Visit * Reason Comments Injections jerica Ewing Encounter Details Date Type Department Care Team (Late st Contact Info) Description 11/17/2022 2:15 PM EST [facility] [address] [facility] [address] [place] [address] Calbe Pacheco MD [address] [facility] [address] [place] [address] Multiple myeloma without remission (HCC) [...] - Inhaled Oxygen Concentration - - Weight 116.9 kg (257 lb 12.8 oz) 11/17/2022 1:56 PM EST Height - - Body Mass Index 39.76 06/16/2022 9:00 AM EDT documented in this encounter Progress Notes * Jennifer Ibarra RN - 11/17/2022 2:15 PM EST [facility] 300. Dr. Pacheco informed and orders to hold Darzalex and Pomalyst. Pt. , also, c/o sore mouth. Magic Mouthwash called in to [place] [facility]. Hydrocortisone 80 mg, Nystatin Susp 30 ml, Benadryl Elixir 120 ml. Quantity sufficient to fill for 240 ml. Pt. Informed to use MMW and take antibiotic sent in by Dr. Pacheco. Educated on neutropenic precautions and pt. Voiced understanding. CH COOKER documented in this encounter Plan of Treatment Not on file documented as of this encounter Visit Diagnoses Diagnosis Multiple myeloma without remission (HCC)- Primary documented in this encounter
--- OUTSIDE RECORDS SUMMARY | 2024-08-03 17:04 | XMS_ITS | Encounter Summary ---
Author Organization [employer] Address [address] [place] [address] Care Team Providers Care Bee Farmer Name Role Phone Unavailable Primary Care Provider Unavailabl e Encounter Details Date Type Department Care Team (Late st Contact Info) Description 11/23/2022 Orders Only [facility] - [facility] [address] [place] [address] Caleb Pacheco MD [address] [facility] [address] [place] [address] Social History Tobacco Use Types [...]
--- OUTSIDE RECORDS SUMMARY | 2024-08-03 17:04 | XMS_ITS | Encounter Summary ---
Author Organization [employer] Address [address] [place] [address] Care Team Providers Care Electrical Designer Drafter Name Role Phone Unavailable Primary Care Provider Unavailabl e Encounter Details Date Type Department Care Team (Late st Contact Info) Description 12/15/2022 Orders Only [place] [facility] - [employer] [address] [place] [address] Coral Leo Multiple myeloma without remission [...] Diagnosis Comments CBC W/ AUTO DIFF STAT 12/15/2022 11:0 4 AM EDT Multiple myeloma without remission (HCC) MANUAL DIFFERENTIAL Routine 12/15/2022 1 1:04 AM EDT Multiple myeloma without remission (HCC) COMPREHENSIVE METABOLIC PANEL STAT 12/15/2022 11:04 AM EDT Multiple myeloma without remission (HCC) documented in this encounter Results * (ABNORMAL) Manual Differential (12/15/2022 11:04 AM EDT) Total Counted 100 12/15/2022 2:06 PM EDT [facility] % Neutros (manual) 76(H) 50 - 65 % 12/15/2022 2:06 PM EDT [facility] % Bands (manual) 3(L) 5 - 11 % 12/15/2022 2:06 PM EDT [facility] % Lymphs (manual) 13(L) 24 - 44 % 12/15/2022 2:06 PM EDT [facility] % Monos (manual) 5 4 - 5 % 12/15/2022 2:06 PM EDT [facility] % Eos (manual) 2 0 - 3 % 12/15/2022 2:06 PM EDT [facility] % Metamyelo (manual) 1 0 - 1 % 12/15/2022 2:06 PM EDT [facility] Differential Comment Left shift with slight toxic granulation. Rbc morphology unremarkable. 12/15/2022 2:06 PM EDT [facility] RBC Morphology Normal Normal 12/15/2022 2:06 PM EDT [facility] Platelet Estimate Decreased(A) Adequate 12/15/2022 2:06 PM EDT [facility] Raw nRBC Count 1(H) 0 - 0 12/15/2022 2:06 PM EDT [facility] ANC# 9.09 K/??L 12/15/2022 2:06 PM EDT [facility] Blood ENTIRE LEFT UPPER ARM / Unknown Venipuncture / Unknown 12/15/2022 11:04 AM EDT 12/15/2022 11:06 AM EDT us Caleb Pacheco MD LAB BLOOD ORDERABLES Final Res ult [facility] [address] [phone] * (ABNORMAL) Comprehensive metabolic panel (12/15/2022 11:04 AM EDT) Sodium 144 136 - 146 meq/L 12/15/2022 1:11 PM [facility] Potassium 3.3(L) 3.5 - 5.1 meq/L 12/15/2022 1:11 PM [facility] Chloride 112 102 - 112 meq/L 12/15/2022 1:11 PM [facility] CO2 27 21 - 32 meq/L 12/15/2022 1:11 PM T [facility] Calcium 8.8 8.5 - 10.1 mg/dL 12/15/2022 1:11 PM [facility] Glucose 88 74 - 106 mg/dL 12/15/2022 1:11 PM [facility] BUN 11 7 - 22 mg/dL 12/15/2022 1:11 PM [facility] Creatinine 0.92 0.55 - 1.02 mg/dL 12/15/2022 1:11 PM [facility] BUN/Creatinine 12 8 - 20 12/15/2022 1:11 PM [facility] Albumin 2.8(L) 3.4 - 5.0 g/dL 12/15/2022 1:11 PM [facility] Alkaline Phosphatase 58 27 - 136 U/L 12/15/2022 1:11 PM [facility] ALT 16 12 - 78 U/L 12/15/2022 1:11 PM [facility] AST 10 5 - 37 U/L 12/15/2022 1:11 PM T [facility] Total Bilirubin 0.5 0.2 - 1.3 mg/dL 12/15/2022 1:11 PM [facility] Protein, Total 6.6 6.4 - 8.2 gm/dL 12/15/2022 1:11 PM [facility] Anion Gap 8(L) 9 - 20 12/15/2022 1:11 PM [facility] A/G Ratio 0.7(L) 1.1 - 2.5 12/15/2022 1:11 PM [facility] Globulin 3.8 1.5 - 4.5 g/dL 12/15/2022 1:11 PM EDT [facility] Osmolality Calc 285.7 1:11 PM EDT [facility] eGFR (mL/min/1.73m2) >60 >=60 mL/min/1.7 3m2 12/15/2022 1:11 PM EDT [facility] Comment:ESTIMATED GFR IS NOT ACCURATE CREATININE CLEARANCE IN PREDICTING GLOMERULAR FILTRATION RATE. ESTIMATED GFR IS NOT APPLICABLE FOR DIALYSIS PATIENTS. Blood ENTIRE LEFT UPPER ARM / Unknown Venipuncture / Unknown 12/15/2022 11:04 AM EDT 12/15/2022 11:06 AM EDT Narrative [facility] - 12/15/2022 1:11 PM EDT [...] [facility] [address] [place] [address], [place] [phone] * (ABNORMAL) CBC with Automated Diff (12/15/2022 11:04 AM EDT) WBC 11.5(H) 3.9 - 10.0 K/??L 12/15/2022 2:06 PM EDT [facility] Comment:This is a corrected result. Previous result was 11.1 K/??L on 12/15/2022 at 1116 EDT RBC 3.31(L) 3.93 - 6.08 M/??L 12/15/2022 2:06 PM EDT [facility] Comment:This is a corrected result. Previous result was 3.34 M/??L on 12/15/2022 at 1116 EDT Hemoglobin 11.2 11.2 - 15.7 GM/DL 12/15/2022 2:06 PM EDT [facility] Comment:This is a corrected result. Previous result was 11.3 GM/DL on 12/15/2022 at 1116 EDT Hematocrit 35.4 34.1 - 44.9 % 12/15/2022 2:06 PM EDT [facility] Comment:This is a corrected result. Previous result was 35.9 % on 12/15/2022 at 1116 EDT MCV 107(H) 79 - 95 fL 12/15/2022 2:06 PM EDT [facility] Comment:This is a corrected result. Previous result was 108 fL on 12/15/2022 at 1116 EDT MCH 33.8(H) 25.6 - 32.2 pg 12/15/2022 2:06 PM EDT [facility] MCHC 31.6(L) 32.2 - 36.5 GM/DL 12/15/2022 2:06 PM EDT [facility] Comment:This is a corrected result. Previous result was 31.5 GM/DL on 12/15/2022 at 1116 EDT RDW 14.6(H) 11.6 - 14.4 % 12/15/2022 2:06 PM EDT [facility] Comment:This is a corrected result. Previous result was 14.2 % on 12/15/2022 at [facility]6 EDT Platelets 152(L) 163 - 369 K/CU MM 12/15/2022 2:06 PM EDT [facility] Comment:This is a corrected result. Previous result was 130 K/CU MM on 12/15/2022 at 1116 EDT MPV 10.4 9.4 - 12.4 fL 12/15/2022 2:06 PM EDT [facility] Comment:This is a corrected result. Previous result was 9.4 fL on 12/15/2022 at 1116 EDT Blood ENTIRE LEFT UPPER ARM / Unknown Venipuncture / Unknown 12/15/2022 11:04 AM EDT 12/15/2022 11:06 AM EDT Narrative [facility] - 12/15/2022 2:06 PM EDT [...] [facility] [address] [phone] documented in this encounter Visit Diagnoses Diagnosis Multiple myeloma without remission (HCC) documented in this encounter
--- OUTSIDE RECORDS SUMMARY | 2024-08-03 17:04 | XMS_ITS | Encounter Summary ---
Author Organization [employer] Address [address] [place] [address] Care Team Providers Care Senior Drafter Name Role Phone Unavailable Primary Care Provider Unavailabl e Encounter Details Date Type Department Care Team (Late st Contact Info) Description 12/01/2022 Orders Only [place] [facility] - [employer] [address] [place] [address] Caleb Pacheco MD [address] [facility] [address] [place] [address] Multiple myeloma without remission (HCC) [...] Associated Diagnosis Comments IMMUNOFIX ELECTROPHORESIS BILL(SENDOUT) Routine 12/01/2022 9:01 AM EDT Multiple myeloma without remission (HCC) ONOCOLOGY CHEMISTRY PANEL Routine 12/01/2022 9:01 AM EDT Multiple myeloma without remission (HCC) PROTEIN ELECTROPHORESIS W RFLX TO RALPH(SENDOUT) Routine 12/01/2022 9:01 AM EDT Multiple myeloma without remission (HCC) KAPPA-LAMBDA QUANT FLC WITH RATIO(SENDOUT) Routine 12/01/2022 9:01 AM EDT Multiple myeloma without remission (HCC) IMMUNOGLOBULIN M(SENDOUT) Routine 12/01/2022 9:01 AM EDT Multiple myeloma without remission (HCC) IMMUNOGLOBULIN G(SENDOUT) Routine 12/01/2022 9:01 AM EDT Multiple myeloma without remission (HCC) IMMUNOGLOBULIN A(SENDOUT) Routine 12/01/2022 9:01 AM EDT Multiple myeloma without remission (HCC) documented in this encounter Results * Immunofix Electrophoresis Bill(SENDOUT) (12/01/2022 9:01 AM EDT) Pathologist [facility] Immunofix Electrophoresis Bill Billed 12/04/2022 10:11 PM EDT [facility] Comment: Performed By: [facility] [address] [place] [address] Cycle Specialist: Parker Rangel MD, PhD Blood ENTIRE LEFT UPPER ARM / Unknown Venipuncture / Unknown 12/01/2022 9:01 AM EDT 12/01/2022 9:06 AM EDT us Caleb Pacheco MD LAB BLOOD ORDERABLES Final Res ult [facility] [address] [place] [address], [facility] [phone] * (ABNORMAL) Immunoglobulin A(SENDOUT) (12/01/2022 9:01 AM EDT) [facility] Immunoglobulin A 653(H) 68 - 408 mg/dL 12/04/2022 9:53 PM EDT [facility] Comment: REFERENCE INTERVAL: Immunoglobulin A Access complete set of age- and/or gender-specific reference intervals for this test in the [facility] ([facility]). Performed By: [facility] [address] [place] [address] Cycle Specialist: Parker Rangel MD, PhD Blood ENTIRE LEFT UPPER ARM / Unknown Venipuncture / Unknown 12/01/2022 9:01 AM EDT 12/01/2022 9:06 AM EDT Caleb Pacheco MD LAB BLOOD ORDERABLES Final Res ult Performing Organization Address [facility] de Phone Number [address] [phone] * (ABNORMAL) Immunoglobulin M(SENDOUT) (12/01/2022 9:01 AM EDT) Immunoglobulin M 21(L) 35 - 263 mg/dL 12/04/2022 9:53 PM EDT [facility] Comment: REFERENCE INTERVAL: Immunoglobulin M Access complete set of age- and/or gender-specific reference intervals for this test in the [facility] ([facility]). Performed By: [facility] [address] [place] [address] Cycle Specialist: Parker Rangel MD, PhD Blood ENTIRE LEFT UPPER ARM / Unknown Venipuncture / Unknown 12/01/2022 9:01 AM EDT 12/01/2022 9:06 AM EDT Caleb Pacheco MD LAB BLOOD ORDERABLES Final Res ult Performing Organization Address [facility] de Phone Number [address] [phone] * (ABNORMAL) Immunoglobulin G(SENDOUT) (12/01/2022 9:01 AM EDT) Immunoglobulin G 415(L) 768 - 1632 mg/dL 12/04/2022 9:53 PM EDT [facility] Comment: REFERENCE INTERVAL: Immunoglobulin G Access complete set of age- and/or gender-specific reference intervals for this test in the [facility] ([facility]). Performed By: [facility] [address] [place] [address] Cycle Specialist: Parker Rangel MD, PhD Blood ENTIRE LEFT UPPER ARM / Unknown Venipuncture / Unknown 12/01/2022 9:01 AM EDT 12/01/2022 9:06 AM EDT us Caleb Pacheco MD LAB BLOOD ORDERABLES Final Res ult [facility] [address] [place] [id number], [facility] [phone] * (ABNORMAL) Protein Electrophoresis w Rflx to RALPH(SENDOUT) (12/01/2022 9:01 AM EDT) Total Protein, Serum 6.0(L) 6.3 - 8.2 g/dL 12/04/2022 10:11 PM EDT [facility] Albumin 3.10(L) 3.75 - 5.01 g/dL 12/04/2022 10:11 PM EDT [facility] Alpha 1 Globulin 0.36 0.19 - 0.46 g/dL 12/04/2022 10:11 PM EDT [facility] Alpha 2 Globulin 0.85 0.48 - 1.05 g/dL 12/04/2022 10:11 PM EDT [facility] Beta Globulin 1.31(H) 0.48 - 1.10 g/dL 12/04/2022 10:11 PM EDT [facility] Gamma 0.38(L) 0.62 - 1.51 g/dL 12/04/2022 10:11 PM EDT [facility] Immunofixation Reflex RALPH Done 12/04/2022 10:11 PM EDT [facility] Monoclonal Protein 0.98 g/dL 2022 10:11 PM EDT [facility] SPEP/RALPH Interpretation See Note 12/04/2022 10:11 PM EDT [facility] Comment: Monoclonal spike in the beta region. The quantitation may include complement and/or transferrin components. Measurement of total Immunoglobulin (IgA, IgG, or IgM) can be used for the quantitation of the monoclonal spike instead. Hypogammaglobluinemia. RALPH gel pattern shows an IgA type lambda monoclonal protein. EER Serum Protein Electrophoresis Reflex See Note 12/04/2022 10:11 PM EDT [facility] Comment: Authorized individuals can access the [facility] Enhanced Report using the following link: [email or web address] Performed By: [facility] [address] [place] [address] Cycle Specialist: Parker Rangel MD, PhD Blood ENTIRE LEFT UPPER ARM / Unknown Venipuncture / Unknown 12/01/2022 9:01 AM EDT 12/01/2022 9:06 AM EDT Caleb Pacheco MD LAB BLOOD ORDERABLES Final Res ult [facility] [address] [place] [address], [facility] [phone] * [place]-Lambda Quant FLC with Ratio(SENDOUT) (12/01/2022 9:01 AM EDT) [place]pine Qnt Free Light Chains 10.68 3.30 - 19.40 mg/L 12/02/2022 5:41 PM EDT [facility] Comment: INTERPRETIVE INFORMATION: [place]pine Qnt Free Light Chains Undetected antigen excess is a rare event but cannot be excluded. Free light chain results should always be interpreted in conjunction with other clinical and laboratory findings. Lambda Qnt Free Light Chains 17.56 5.71 - 26.30 mg/L 12/02/2022 5:41 PM EDT [facility] Comment: INTERPRETIVE INFORMATION: Lambda Qnt Free Light Chains Undetected antigen excess is a rare event but cannot be excluded. Free light chain results should always be interpreted in conjunction with other clinical and laboratory findings. [place]-Alpine/Lambda Free Light Chain Ratio 0.61 0.26 - 1.65 12/02/2022 5:41 PM EDT [facility] Comment: Performed By: [facility] [address] [place] [address] Cycle Specialist: Parker Rangel MD, PhD Blood ENTIRE LEFT UPPER ARM / Unknown Venipuncture / Unknown 12/01/2022 9:01 AM EDT 12/01/2022 9:06 AM EDT us Caleb Pacheco MD LAB BLOOD ORDERABLES Final [place] [address], [facility] [phone] * (ABNORMAL) Oncology Chemistry Panel (12/01/2022 9:01 AM EDT) Sodium 141 136 - 146 meq/L 12/01/2022 [...] ult [facility] [address] [phone] documented in this encounter Visit Diagnoses Diagnosis Multiple myeloma without remission (HCC) documented in this encounter
--- OUTSIDE RECORDS SUMMARY | 2024-08-03 17:04 | XMS_ITS | Encounter Summary ---
Author Organization [employer] Address [address] [place] [address] Care Team Providers Care Reclamation Supervisor Name Role Phone Unavailable Primary Care Provider Unavailabl e Reason for Visit * Reason Comments Chemotherapy Darzalex Faspro sq * Episode Based Medication (Routine) - Closed Specialty Diagnoses / Procedures Referred By Ana Paula anne Referred To Contact Diagnoses Multiple myeloma without remission (HCC) Procedures [place] DARATUMUMAB, HYALURONIDASE [id number]-[id number] Caleb Pacheco MD [address] [place] [phone] Phone: tel: fax: [place] [facility] - [employer] [email or web address] [place] [phone] Phone: tel: fax: Referral ID Status Reason Start Date Expiration Date Visits Re quested Visits Authorized [id number] Closed 10/20/2022 05/14/2024 1 100 Encounter Details Date Type Department Care Team (Late st Contact Info) Description 12/22/2022 11:15 AM EDT Infusion [place] [facility] - [facility] [address] [place] [address] Caleb Pacheco MD [address] [place] [address] Multiple myeloma, remission status unspecified [...] Sign Reading Time Taken Comments Blood Pressure 131/71 12/22/2022 11:24 AM EDT Pulse 66 12/22/2022 11:24 AM EDT Temperature - - Respiratory Rate 20 12/22/2022 11:24 AM EDT Oxygen Saturation 97% 12/22/2022 11:24 AM EDT Inhaled Oxygen Concentration - - Weight - - Height - - Body Mass Index - - documented in this encounter Progress Notes * Jenny Traore RN - 12/22/2022 11:15 AM EDT Charted on patient accidentally. Patient does not have port access. Please disregard. * Jennifer Ibarra RN - 12/22/2022 11:15 AM EDT Pt. Tolerated Darzalex injection without difficulty. Left ambulatory documented in this encounter Plan of Treatment Not on file documented as of this encounter Visit Diagnoses Diagnosis Multiple myeloma, remission status unspecified (HCC)- Primary documented in this encounter Administered Medications Inactive Administered Medications - up to 3 most recent administrations Medication Order MAR Action Action Date Dose Rate Site acetaminophen (TYLENOL) tablet 650 mg 650 mg Once, oral, On Wed12/22/22 at 1130, For 1 dose, Recommended maximum dose of acetaminophen is 4000 mg from all sources in 24 hoursIndications:Multip le myeloma without remission (HCC) Given 12/22/2022 11:16 AM EDT 650 mg daratumumab-hyaluronida se-fihj (DARZALEX FASPRO) 1,800 mg-30,000 unit/15 mL subcutaneous injection 1,800 mg 1,800 mg Once, subcutaneous, at 300 mL/hr, On Wed12/22/22 at 1200, For 1 dose, FLAT DOSING Administer into the subcutaneous tissue of the abdomen about 3 inches to the right or left of the navel over 3-5 minutes. Rotate injection sites for successive injections.Indications: Multiple myeloma without remission (HCC) Given 12/22/2022 11:46 AM EDT 1,800 mg 300 mL/hr Abdominal Tissue diphenhydrAMINE (BENADRYL) capsule 25 mg 25 mg Once, oral, On Wed12/22/22 at 1130, For 1 dose,Indications:Multip le myeloma without remission (HCC) Given 12/22/2022 11:16 AM EDT 25 mg documented in this encounter
--- OUTSIDE RECORDS SUMMARY | 2024-08-03 17:04 | XMS_ITS | Encounter Summary ---
Author Organization [employer] Address [address] [place] [address] Care Team Providers Care Lath Hand Name Role Phone Unavailable Primary Care Provider Unavailabl e Encounter Details Date Type Department Care Team (Latest Contact Info) Description 11/24/2022 10:45 AM EST Lab Patient Walk-In [place] [facility] - [address] [place] [address] Caleb Pacheco MD [facility] [facility] [address] [place] [address] Multiple myeloma without remission (HCC) [...] Pressure - - Pulse - - Temperature 36.6 ??C (97.8 ??F) 11/24/2022 10:[address] Respiratory Rate - - Oxygen Saturation - - Inhaled Oxygen Concentration - - Weight 115.7 kg (255 lb) 11/24/2022 10:49 AM EST Height - - Body Mass Index 39.33 06/16/2022 9:00 AM EDT documented in this encounter Plan of Treatment Not on file documented as of this encounter Visit Diagnoses Diagnosis Multiple myeloma without remission (HCC) documented in this encounter
--- OUTSIDE RECORDS SUMMARY | 2024-08-03 17:04 | XMS_ITS | Encounter Summary ---
Author Organization [employer] Address [address] [place] [address] Care Team Providers Care Child Care Aide Name Role Phone Unavailable Primary Care Provider Unavailabl e Reason for Visit * Reason Onset Date Comments Pomalyst clarification 11/25/2022 Encounter Details Date Type Department Care Team (Late st Contact Info) Description 11/25/2022 Telephone [facility] - [facility] [address] [place] [address] Brandy Thomas RN Pomalyst clarification Social History Tobacco Use Types Packs/Day Years [...] encounter Miscellaneous Notes * Telephone Encounter - Brandy Thomas RN - 11/25/2022 12:13 PM ESTSummary: Pomalyst clarification Called back to [facility] spoke with Kaylene in regards to dose and direction clarification for 2 mg 1 capsule daily #21 with 7 days off. Socorro verbalized understanding. ENTARY SCHOOL TEACHER'S AIDE * Telephone Encounter - Donna Almodovar APRN - 11/25/2022 12:05 PM EST Should be pomalyst 2mg daily x 21 days. SB ENTARY SCHOOL TEACHER'S AIDE * Telephone Encounter - Brandy Thomas RN - 11/25/2022 11:45 AM ESTSummary: Pomalyst clarification Andre from [facility] calling for dose and direction clarification on Pomalyst. States had recently received refill auth for 3 mg with correct (same directions) and then more recently received rx for 2mg dose but with #21 and directions of [address] Pacheco note pt was to decrease to 2 mg. Please clarify dose and directions. Thanks ENTARY SCHOOL TEACHER'S AIDE documented in this encounter Plan of Treatment Not on file documented as of this encounter Visit Diagnoses Not on filedocumented in this encounter
--- OUTSIDE RECORDS SUMMARY | 2024-08-03 17:04 | XMS_ITS | Encounter Summary ---
Author Organization [employer] Address [address] [place] [address] Care Team Providers Care Transit Coach Operator Name Role Phone Unavailable Primary Care Provider Unavailabl e Encounter Details Date Type Department Care Team (Late st Contact Info) Description 12/28/2022 Orders Only [place] [facility] - [facility] [address] [place] [address] Caleb Pacheco MD [address] [facility] [address] [place] [address] Multiple myeloma without remission (HCC) [...] Results * (ABNORMAL) CBC with Automated Diff (12/29/2022 11:00 AM EDT) WBC 2.5(L) 4.5 - 12.5 K/??L 12/29/2022 11:07 AM EDT [facility] RBC 3.29(L) 4.00 - 5.25 M/??L 12/29/2022 11:07 AM EDT [facility] Hemoglobin 11.1(L) 12.0 - 16.0 GM/DL 12/29/2022 11:07 AM EDT [facility] Hematocrit 35.6(L) 36.0 - 46.0 % 12/29/2022 11:07 AM EDT [facility] MCV 108(H) 80 - 100 fL 12/29/2022 11:07 AM EDT [facility] MCH 33.7 26.0 - 34.0 pg 12/29/2022 11:07 AM EDT [facility] MCHC 31.2 31.0 - 37.0 GM/DL 12/29/2022 11:07 AM EDT [facility] RDW 14.2 12.0 - 16.8 % 12/29/2022 11:07 AM EDT [facility] Platelets 143 140 - 440 K/CU MM 12/29/2022 11:07 AM EDT [facility] MPV 9.5 7.4 - 10.4 fL 12/29/2022 11:07 AM EDT [facility] % Neutros 37(L) 45 - 80 % 12/29/2022 11:07 AM EDT [facility] % Lymphs 36 15 - 45 % 12/29/2022 11:07 AM EDT [facility] % Monos 17(H) 0 - 10 % 12/29/2022 11:07 AM EDT [facility] % Eos 8(H) 0 - 5 % 12/29/2022 11:07 AM EDT [facility] % Baso 2 0 - 3 % 12/29/2022 11:07 AM EDT [facility] # Neutros 0.91(L) 2.00 - 8.80 K/??L 12/29/2022 11:07 AM EDT [facility] # Lymphs 0.88 0.70 - 5.50 K/??L 12/29/2022 11:07 AM EDT [facility] # Monos 0.42 0.00 - 1.70 K/??L 12/29/2022 11:07 AM EDT [facility] # Eos 0.20 0.00 - 0.80 K/??L 12/29/2022 11:07 AM EDT [facility] # Baso 0.04 0.00 - 0.20 K/??L 12/29/2022 11:07 AM EDT [facility] Blood Venipuncture / Unknown 12/29/2022 11:00 AM EDT 12/29/2022 11:01 AM EDT Narrative [facility] - 12/29/2022 11:07 AM EDT When CBC [...] Res ult [facility] [address] [place] [address], [facility] [phone] documented in this encounter Visit Diagnoses Diagnosis Multiple myeloma without remission (HCC)- Primary documented in this encounter
--- OUTSIDE RECORDS SUMMARY | 2024-08-03 17:04 | XMS_ITS | Encounter Summary ---
Author Organization [employer] Address [address] [place] [address] Care Team Providers Care Manufacturer Name Role Phone Unavailable Primary Care Provider Unavailabl e Reason for Visit * Reason Comments Follow-up Possible treatment Encounter Details Date Type Department Care Team (Late st Contact Info) Description 11/24/2022 11:15 AM EST Office Visit [facility] [address] [facility] [address] [place] [address] Raimundo Pacheco MD [address] [facility] [address] [place] [address] Multiple myeloma without remission (HCC) [...] Reading Time Taken Comments Blood Pressure 123/71 11/24/2022 11:26 AM EST Pulse 64 11/24/2022 11:26 AM EST Temperature - - Respiratory Rate 19 11/24/2022 11:26 AM EST Oxygen Saturation 98% 11/24/2022 11:26 AM EST Inhaled Oxygen Concentration - - Weight - - Height - - Body Mass Index - - documented in this encounter Progress Notes * Raimundo Pacheco MD - 11/24/2022 11:15 AM EST Chief Complaint: History of Present Illness: Francy Bailey is a 62 y.o. female who presents today for follow up of multiple myeloma. She is on a combination of Darzalex pomalidomide and dexamethasone. We had to hold her treatment lastweek because of low white blood count. She stopped her pomalidomide also along with the Darzalex she has had no fever she denies any mouth pain she has some lower back discomfort but is without othercomplaints Past Medical History: Diagnosis Date ??? Asthma ??? Autologous bone marrow transplantation status ([facility]) ??? Chronic low back pain ??? DVT (deep venous thrombosis) ([facility]) ??? History of shingles 12/2019 ??? Hypertension [...] Treatment Summary Treatment goal Palliative Plan Name [facility] Multiple Myeloma - daratumumab (Darzalex) IV d1,8,15,22 fb D1,15 fb d1 + pomalidomide(Pomalyst) PO d1-21 every 28 days Status Active Start Date 11/03/2022 End Date 09/14/2023 (Planned) Provider Raimundo Pacheco MD Chemotherapy pomalidomide 4 mg Cap, 4 mg, Oral, Daily, 1 of 1 cycle, Start date: --, End date: -- wydkykyxfky-iyyyukvrqmkax-orwx (DARZALEX FASPRO) 1,800 mg-30,000 unit/15 mL subcutaneous [...] systems reviewed and are negative. Vitals: Vitals: 11/24/22 1126 BP: 123/71 Pulse: 64 Resp: 19 SpO2: 98% Physical Exam: Physical Exam Vitals reviewed. HENT: [...] and neck supple. Comments: Lower back pain Neurological: General: No focal deficit present. Mental Status: She is alert. Relevant Results: Orders Only on 11/24/2022 Component Date Value [...] 11/17/2022 13 5 - 37 U/L Final [email or web address] has become aware of sulfasalazine and sulfapyridine [...] 11/17/2022 18 12 - 78 U/L Final [email or web address] has become aware of sulfasalazine and sulfapyridine [...] 11/17/2022 0.01 0.00 - 0.20 K/??L Final Orders Only on 11/10/2022 Component Date Value [...] 11/10/2022 0.00 0.00 - 0.20 K/??L Final No results found. Cancer Staging No matching staging information was found for the patient. Plan: Her neutrophil count today is only 200. I will continue the Bactrim and we will hold the pomalidomide. I will cut the pomalidomide dose to 2 mg. We will also hold the Darzalex today. I will seeher again in a week. I may have to consider giving her growth factor to stimulate white blood cell production. I have answered her questions Signed: Electronically signed by RAIMUNDO PACHECO MD 11/24/22 5:54 PM EST No primary care provider on file. HOST/HOSTESS documented in this encounter Plan of Treatment Not on file documented as of this encounter Visit Diagnoses Diagnosis Multiple myeloma without remission (HCC)- Primary documented in this encounter
--- OUTSIDE RECORDS SUMMARY | 2024-08-03 17:04 | XMS_ITS | Encounter Summary ---
Author Organization [employer] Address [address] [place] [address] Care Team Providers Care Ux Interaction Designer Name Role Phone Unavailable Primary Care Provider Unavailabl e Reason for Visit * Reason Comments Follow-up Follow up. Possible tx. Injections Darzalex * Episode Based Medication (Routine) - Closed Specialty Diagnoses / Procedures Referred By Ana Paula anne Referred To Contact Diagnoses Multiple myeloma without remission (HCC) Procedures [place] DARATUMUMAB, HYALURONIDASE Daratumumab-[id number] Caleb Pacheco MD [address] [address] Phone: tel: fax: [facility] - [employer] [address] [place] [id number] Phone: tel: fax: Referral ID Status Reason Start Date Expiration Date Visits Re quested Visits Authorized [id number] Closed 10/20/2022 05/14/2024 1 100 Encounter Details Date Type Department Care Team (Late st Contact Info) Description 12/15/2022 11:00 AM EDT Infusion [facility] - [facility] [address] [place] [address] Caleb Pacheco MD [address] [facility] [address] [place] [address] Multiple myeloma without remission (HCC) [...] Sign Reading Time Taken Comments Blood Pressure 153/74 12/15/2022 11:13 AM EDT Pulse 69 12/15/2022 11:13 AM EDT Temperature - - Respiratory Rate 17 12/15/2022 11:13 AM EDT Oxygen Saturation 98% 12/15/2022 11:13 AM EDT Inhaled Oxygen Concentration - - Weight - - Height - - Body Mass Index - - documented in this encounter Progress Notes * Jennifer Ibarra RN - 12/15/2022 11:00 AM EDT Pt. Tolerated injection without difficulty. AVS printed with upcoming appointments documented in this encounter Plan of Treatment Not on file documented as of this encounter Visit Diagnoses Diagnosis Multiple myeloma without remission (HCC)- Primary documented in this encounter Administered Medications Inactive Administered Medications - up to 3 most recent administrations Medication Order MAR Action Action Date Dose Rate Site acetaminophen (TYLENOL) tablet 650 mg 650 mg Once, oral, On Wed12/15/22 at 1200, For 1 dose, Recommended maximum dose of acetaminophen is 4000 mg from all sources in 24 hoursIndications:Multip le myeloma without remission (HCC) Given 12/15/2022 11:52 AM EDT 650 mg daratumumab-hyaluronida se-fihj (DARZALEX FASPRO) 1,800 mg-30,000 unit/15 mL subcutaneous injection 1,800 mg 1,800 mg Once, subcutaneous, at 300 mL/hr, On Wed12/15/22 at 1200, For 1 dose, FLAT DOSING Administer into the subcutaneous tissue of the abdomen about 3 inches to the right or left of the navel over 3-5 minutes. Rotate injection sites for successive injections.Indications: Multiple myeloma without remission (HCC) Given 12/15/2022 12:07 PM EDT 1,800 mg 300 mL/hr Abdominal Tissue diphenhydrAMINE (BENADRYL) capsule 25 mg 25 mg Once, oral, On Wed12/15/22 at 1200, For 1 dose,Indications:Multip le myeloma without remission (HCC) Given 12/15/2022 11:52 AM EDT 25 mg documented in this encounter
--- OUTSIDE RECORDS SUMMARY | 2024-08-03 17:04 | XMS_ITS | Encounter Summary ---
Author Organization [employer] Address [address] [place] [address] Care Team Providers Care Cyber Intelligence Analyst Name Role Phone Unavailable Primary Care Provider Unavailabl e Reason for Visit * Reason Comments Medication Refill Encounter Details Date Type Department Care Team (Late st Contact Info) Description 11/23/2022 Refill [facility] [address] [place] [address] Caleb Pacheco MD [facility] [facility] [address] [place] [address] Social History Tobacco Use Types [...]
--- OUTSIDE RECORDS SUMMARY | 2024-08-03 17:05 | XMS_ITS | Encounter Summary ---
Author Organization [employer] Address [address] [place] [address] Care Team Providers Care High School Music Teacher Name Role Phone Unavailable Primary Care Provider Unavailabl e Reason for Visit * Reason Comments Medication Refill Encounter Details Date Type Department Care Team (Late st Contact Info) Description 08/21/2022 Refill [facility] - [employer] [address] [place] [address] Caleb Pacheco MD [facility] [facility] [address] [place] [address] Social History Tobacco Use Types Packs/Day Years Used Date Smoking Tobacco: Never Assessed Comments Unknown Sex and Gender Information Value Date Recorded Sex Assigned at Not on file Legal Sex Female 10:12 AM CDT Gender Identity Not on file Sexual Orientation Not on file documented as of this encounter Plan of Treatment Not on file documented as of this encounter Visit Diagnoses Not on filedocumented in this encounter
--- OUTSIDE RECORDS SUMMARY | 2024-08-03 17:05 | XMS_ITS | Encounter Summary ---
Author Organization [employer] Address [address] [place] [address] Care Team Providers Care Pharmacognosist Name Role Phone Unavailable Primary Care Provider Unavailabl e Reason for Visit * Reason Comments Medication Refill Encounter Details Date Type Department Care Team (Late st Contact Info) Description 09/17/2022 Refill [facility] - [facility] [address] [place] [address] Caleb Pacheco MD [facility] [address] [place] [address] Social History Tobacco Use Types [...]
--- OUTSIDE RECORDS SUMMARY | 2024-08-03 17:05 | XMS_ITS | Encounter Summary ---
Author Organization [employer] Address [address] [place] [address] Care Team Providers Care Director Electrical Engineering Name Role Phone Unavailable Primary Care Provider Unavailabl e Reason for Visit * Reason Onset Date Comments medication switch 10/21/2022 Encounter Details Date Type Department Care Team (Late st Contact Info) Description 10/21/2022 Telephone [facility] - [facility] [address] [place] [address] Brandy Thomas RN medication switch Social History Tobacco Use Types Packs/Day Years Used Date Smoking Tobacco: Never Smokeless Tobacco: Never Alcohol Use Standard Drinks/Week Comments Never 0 (1 standard drink = 0.6 oz pur e alcohol) Comments Unknown Sex and Gender Information Value Date Recorded Sex Assigned at Not on file Legal Sex Female 10:12 AM CDT Gender Identity Not on file Sexual Orientation Not on file documented as of this encounter Miscellaneous Notes * Telephone Encounter - Ava Cruz - 10/21/2022 12:19 PM EST New rx sent to [id number] yesterday for Pomalyst which is a change in therapy. I will call [facility] to letthem know. VIOR SPECIALIST * Telephone Encounter - Brandy Thomas RN - 10/21/2022 11:58 AM ESTSummary: medication switch [facility] called inquiring if pt's therapy was switched from lenalidomide to pomalidomide. States they just received pomalidomide script but just sent out lenalidomide yesterday. Per MD note it does report this but didn't see either listed in pt med list. Madhuri, I am assuming you would have sent correct? Please advise. VIOR SPECIALIST documented in this encounter Plan of Treatment Not on file documented as of this encounter Visit Diagnoses Not on filedocumented in this encounter
--- OUTSIDE RECORDS SUMMARY | 2024-08-03 17:05 | XMS_ITS | Encounter Summary ---
Author Organization [employer] Address [address] [place] [address] Care Team Providers Care Appeals Board Referee Name Role Phone Unavailable Primary Care Provider Unavailabl e Encounter Details Date Type Department Care Team (Late st Contact Info) Description 07/20/2022 11:00 AM EDT Lab Patient Walk-In [facility] - [employer] [address] [place] [address] Caleb Pacheco MD [address] [facility] [address] [place] [address] Social History Tobacco Use Types [...] - Pulse - - Temperature 36.6 ??C (97.9 ??F) 07/20/2022 1 1:43 AM EDT Respiratory Rate - - Oxygen Saturation - - Inhaled Oxygen Concentration - - Weight 116.9 kg (257 lb 11.5 oz) 2021 11:43 AM EDT Height - - Body Mass Index 39.74 06/16/2022 9:00 AM EDT documented in this encounter Plan of Treatment Not on file documented as of this encounter Visit Diagnoses Not on filedocumented in this encounter
--- OUTSIDE RECORDS SUMMARY | 2024-08-03 17:05 | XMS_ITS | Encounter Summary ---
Author Organization [employer] [facility] [employer] Address [address] [place] [address] Care Team Providers Care Retail Sales Vitamin Consultant Name Role Phone Unavailable Primary Care Provider Unavailabl e Reason for Visit * Reason Onset Date Comments Medication Refill 10/27/2022 Encounter Details Date Type Department Care Team (Late st Contact Info) Description 10/27/2022 Telephone [facility] - [facility] [address] [place] [address] Jennifer Ibarra acid purification equipment operator Refill Social History Tobacco Use Types Packs/Day Years [...] Telephone Encounter - Jennifer Ibarra RN - 10/27/2022 3:37 PM EST Received call from [facility] regarding being unable to reach pt. For Pomalyst delivery. Attempted to call pt. On home phone and left detailed message with pharmacy phone number to call back. CROSS RACER documented in this encounter Plan of Treatment Not on file documented as of this encounter Visit Diagnoses Not on filedocumented in this encounter
--- OUTSIDE RECORDS SUMMARY | 2024-08-03 17:05 | XMS_ITS | Encounter Summary ---
Author Organization [employer] Address [address] [place] [address] Care Team Providers Care Prospecting Driller Name Role Phone Unavailable Primary Care Provider Unavailabl e Encounter Details Date Type Department Care Team (Late st Contact Info) Description 11/03/2022 Orders Only [facility] - [employer] [address] [place] [address] Caleb Pacheco MD [address] [facility] [address] [place] [address] Multiple myeloma without remission (HCC) [...] Procedure Name Priority Date/Time Associated Diagnosis Comments HEPATIC FUNCTION PANEL Routine 11/03/2022 9:09 AM EST Multiple myeloma without remission (HCC) BASIC METABOLIC PANEL STAT 11/03/2022 9:09 AM EST Multiple myeloma without remission (HCC) CBC W/ AUTO DIFF STAT 11/03/2022 9:03 AM EST Multiple myeloma without remission (HCC) documented in this encounter Results * (ABNORMAL) Hepatic function panel (11/03/2022 9:09 AM EST) Protein, Total 7.5 6.4 - 8.2 gm/dL 11/03/2022 1:23 PM [facility] Albumin 3.0(L) 3.4 - 5.0 g/dL 11/03/2022 1:23 PM [facility] Total Bilirubin 0.4 0.2 - 1.3 mg/dL 11/03/2022 1:23 PM [facility] Bilirubin, Direct 0.2 0.0 - 0.2 mg/dL 11/03/2022 1:23 PM [facility] Alkaline Phosphatase 46 27 - 136 U/L 11/03/2022 1:23 PM [facility] Globulin 4.5 1.5 - 4.5 g/dL 11/03/2022 1:23 PM [facility] A/G Ratio 0.7(L) 1.1 - 2.5 11/03/2022 1:23 PM [facility] AST 17 5 - 37 U/L 11/03/2022 1:23 PM [facility] Comment:[employer] has become aware of sulfasalazine and sulfapyridine [...] drug. ALT 18 12 - 78 U/L 11/03/2022 1:23 PM [facility] Comment:[employer] has become aware of sulfasalazine and sulfapyridine [...] UPPER ARM / Unknown Venipuncture / Unknown 11/03/2022 9:09 AM EST 11/03/2022 9:11 AM EST us Caleb Pacheco MD LAB BLOOD ORDERABLES Final Res ult [facility] [address] [employer] [address] [phone] * (ABNORMAL) Basic Metabolic Panel (11/03/2022 9:09 AM EST) Sodium 141 136 - 146 meq/L 11/03/2022 1:17 PM [facility] Potassium 3.5 3.5 - 5.1 meq/L 11/03/2022 1:17 PM [facility] Chloride 107 102 - 112 meq/L 11/03/2022 1:17 PM [facility] CO2 29 21 - 32 meq/L 11/03/2022 1:17 PM [facility] Anion Gap 9 9 - 20 11/03/2022 1:17 PM [facility] BUN 13 7 - 22 mg/dL 11/03/2022 1:17 PM [facility] Creatinine 0.83 0.55 - 1.02 mg/dL 11/03/2022 1:17 PM [facility] BUN/Creatinine 16 8 - 20 11/03/2022 1:17 PM [facility] Glucose 108(H) 74 - 106 mg/dL 11/03/2022 1:17 PM [facility] Calcium 9.3 8.5 - 10.1 mg/dL 11/03/2022 1:17 PM [facility] Osmolality Calc 281.9 1:17 PM [facility] eGFR Non (mL/min/1.73m2) >60 >=60 mL/min/1.7 3m2 11/03/2022 1:17 PM [facility] eGFR (mL/min/1.73m2) >60 >=60 mL/min/1.7 3m2 11/03/2022 1:17 PM EST [facility] Comment:eGFR of <60 suggests chronic kidney disease if found over a 3 month period of time. eGFR <15 indicates renal failure. Blood ENTIRE RIGHT UPPER ARM / Unknown Venipuncture / Unknown 11/03/2022 9:09 AM EST 11/03/2022 9:11 AM EST us Caleb Pacheco MD LAB BLOOD ORDERABLES Final Res ult [facility] [address] [employer] [address] [phone] * (ABNORMAL) CBC with Automated Diff (11/03/2022 9:03 AM EST) WBC 3.2(L) 4.5 - 12.5 K/??L 11/03/2022 9:16 AM EST [facility] RBC 3.41(L) 4.00 - 5.25 M/??L 11/03/2022 9:16 AM EST [facility] Hemoglobin 11.4(L) 12.0 - 16.0 GM/DL 11/03/2022 9:16 AM EST [facility] Hematocrit 35.8(L) 36.0 - 46.0 % 11/03/2022 9:16 AM EST [facility] MCV 105(H) 80 - 100 fL 11/03/2022 9:16 AM EST [facility] MCH 33.4 26.0 - 34.0 pg 11/03/2022 9:16 AM EST [facility] MCHC 31.8 31.0 - 37.0 GM/DL 11/03/2022 9:16 AM EST [facility] RDW 12.7 12.0 - 16.8 % 11/03/2022 9:16 AM EST [facility] Platelets 160 140 - 440 K/CU MM 11/03/2022 9:16 AM EST [facility] MPV 9.5 7.4 - 10.4 fL 11/03/2022 9:16 AM EST [facility] % Neutros 52 45 - 80 % 11/03/2022 9:16 AM EST [facility] % Lymphs 36 15 - 45 % 11/03/2022 9:16 AM EST [facility] % Monos 9 0 - 10 % 11/03/2022 9:16 AM EST [facility] % Eos 3 0 - 5 % 11/03/2022 9:16 AM EST [facility] % Baso 1 0 - 3 % 11/03/2022 9:16 AM EST [facility] # Neutros 1.66(L) 2.00 - 8.80 K/??L 11/03/2022 9:16 AM EST [facility] # Lymphs 1.14 0.70 - 5.50 K/??L 11/03/2022 9:16 AM EST [facility] # Monos 0.27 0.00 - 1.70 K/??L 11/03/2022 9:16 AM EST [facility] # Eos 0.09 0.00 - 0.80 K/??L 11/03/2022 9:16 AM EST [facility] # Baso 0.03 0.00 - 0.20 K/??L 11/03/2022 9:16 AM EST [facility] Blood ENTIRE RIGHT UPPER ARM / Unknown Venipuncture / Unknown 11/03/2022 9:03 AM EST 11/03/2022 9:11 AM EST Narrative [facility] - 11/03/2022 9:16 AM EST When CBC w/ Auto Diff [...] ult [facility] [address] [employer] [address] [phone] documented in this encounter Visit Diagnoses Diagnosis Multiple myeloma without remission (HCC) documented in this encounter
--- OUTSIDE RECORDS SUMMARY | 2024-08-03 17:05 | XMS_ITS | Encounter Summary ---
Author Organization [employer] Address [address] [place] [address] Care Team Providers Care Freezer Unloader Name Role Phone Unavailable Primary Care Provider Unavailabl e Encounter Details Date Type Department Care Team (Late st Contact Info) Description 02/04/2022 Historic Encounter [address] [address] Mark Peres MD [address] [place] [phone] Social History Tobacco Use Types Packs/Day Years [...] Procedure Name Priority Date/Time Associated Diagnosis Comments FREE LIGHT CHAINS GAMMOPATHY PNL, SENDOUT ([facility] BKR DATA CONV) Routine 02/24/2022 11:20 AM EDT CBC W/ AUTO DIFF ([facility] BKR DATA CONV) Routine 02/24/2022 11:20 AM EDT AUTOMATED DIFFERENTIAL ([facility] BKR DATA CONV) Routine 02/24/2022 11:20 AM EDT BMP BASIC METABOLIC PANEL ([facility] BKR DATA CONV) Routine 02/24/2022 11:20 AM EDT CREATININE Routine 02/04/2022 1:33 PM EDT documented in this encounter Results * (ABNORMAL) FREE LIGHT CHAINS GAMMOPATHY PNL, SENDOUT ([facility] BKR DATA CONV) (02/24/2022 11:20 AM EDT) Barney FLC 23.4(H) 3.3 - 19.4 02/27/2022 5:21 AM EDT Lambda FLC 16.9 5.7 - 26.3 02/27/2022 5:21 AM EDT Barney/Lambda FLC Ratio 1.38 0.26 - 1.65 02/27/2022 5:21 AM EDT Comment: Performed At: [facility] [id number] Odin Stevens PhD Ph:[phone] Protein, Total 7.1 6.0 - 8.5 g/dL 02/27/2022 5:21 AM EDT Albumin, Serum 3.6 2.9 - 4.4 g/dL 02/27/2022 5:21 AM EDT [employer]. Interp. 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 SPE Alpha1 Globulin 0.2 0.0 - 0.4 g/dL 02/27/2022 5:21 AM EDT SPE Alpha 2 Globulin 0.9 0.4 - 1.0 g/dL 02/27/2022 5:21 AM EDT SPE Beta Globulin 1.3 0.7 - 1.3 g/dL 02/27/2022 5:21 AM EDT SPE Gamma Globulin 1.1 0.4 - 1.8 g/dL 02/27/2022 5:21 AM EDT MSpike 0.5(H) Not Observed g/dL 02/27/2022 5:21 AM EDT SPE Globulin, Total 3.5 2.2 - 3.9 g/dL 02/27/2022 5:21 AM EDT SPE A/G Ratio 1.1 0.7 - 1.7 02/27/2022 5:21 AM EDT SPE Note Comment 02/27/2022 5:21 AM EDT Comment: Protein electrophoresis scan will follow via computer, mail, or digital content coordinator delivery. IgA 531(H) 87 - 352 mg/dL 02/27/2022 5:21 AM EDT IgG 1055 586 - 1602 mg/dL 02/27/2022 5:21 AM EDT IgM 37 26 - 217 mg/dL 02/27/2022 5:21 AM EDT Blood 02/24/2022 11:2 0 AM EDT 02/24/2022 10:13 PM EDT [facility] Historical Provider LAB BLOOD ORDERABLES nal Result [facility] [address] [phone] * (ABNORMAL) BMP BASIC METABOLIC PANEL ([facility] BKR DATA CONV) (02/24/2022 11:20 AM EDT) Glucose Level 106 74 - 106 mg/dL 02/24/2022 5:22 PM EDT Comment: [facility] has become aware of sulfasalazine and sulfapyridine [...] prior to administration of the drug. Blood Urea Nitrogen 9 7 - 22 mg/dL 02/24/2022 5:22 PM EDT Creatinine Level 0.87 0.55 - 1.02 mg/dL 02/24/2022 5:22 PM EDT Sodium Level 143 136 - 146 mmol/L 02/24/2022 5:22 PM EDT Potassium Level 4.0 3.5 - 5.1 mmol/L 02/24/2022 5:22 PM EDT Chloride Level 108 102 - 112 mmol/L 02/24/2022 5:22 PM EDT Carbon Dioxide Level 31 21 - 32 mmol/L 02/24/2022 5:22 PM EDT Anion Gap 8(L) 9 - 20 02/24/2022 5:22 PM EDT Calcium Level 10.0 8.5 - 10.1 mg/dL 02/24/2022 5:22 PM EDT Bun/Creatinine 10.3 8.0 - 20.0 02/24/2022 5:22 PM EDT eGFR NonAfrican >60 >=60 mL/min/1. 73m2 02/24/2022 5:22 PM EDT Comment: GFR <60 suggests chronic kidney disease, if found over 3 month period. GFR <15 indicates renal failure. eGFR >60 >=60 mL/min/1. 73m2 02/24/2022 5:22 PM EDT Comment: GFR <60 suggests chronic kidney disease, if found over 3 month period. GFR <15 indicates renal failure. Blood 02/24/2022 11:2 0 AM EDT 02/24/2022 5:06 PM EDT [facility] Historical Provider LAB BLOOD ORDERABLES Fi nal Result [facility] [address] [phone] * (ABNORMAL) CBC W/ AUTO DIFF ([facility] BKR DATA CONV) (02/24/2022 11:20 AM EDT) WBC 2.9(L) 4.5 - 12.5 x10(3)/uL 02/24/2022 3:29 PM EDT RBC 3.69(L) 4.50 - 5.20 x10(3)/uL 02/24/2022 3:29 PM EDT Hgb 12.8 12.0 - 16.0 g/dL 02/24/2022 3:29 PM EDT Hct 39.1 36.0 - 46.0 % 02/24/2022 3:29 PM EDT MCV 106.0(H) 80.0 - 100.0 fL 02/24/2022 3:29 PM EDT MCH 34.7(H) 26.0 - 34.0 pg 02/24/2022 3:29 PM EDT MCHC 32.7 31.0 - 37.0 g/dL 02/24/2022 3:29 PM EDT RDW 12.3 12.0 - 16.8 % 02/24/2022 3:29 PM EDT Platelet Count 128(L) 140 - 440 x10(3)/uL 02/24/2022 3:29 PM EDT MPV 9.0 7.4 - 10.4 fL 02/24/2022 3:29 PM EDT Blood 02/24/2022 11:2 0 AM EDT 02/24/2022 3:23 PM EDT [facility] Historical Provider LAB BLOOD ORDERABLES nal Result Performing Organization Address City/State/[facility] Co de Phone Number [facility] [address] [place] [address], [facility] [phone] * (ABNORMAL) AUTOMATED DIFFERENTIAL ([facility] BKR DATA CONV) (02/24/2022 11:20 AM EDT) Neut% 37.7(L) 45.0 - 80.0 % 02/24/2022 3:29 PM EDT Lymph% 43.2 15.0 - 45.0 % 02/24/2022 3:29 PM EDT Yazoo% 13.3(H) 0.0 - 10.0 % 02/24/2022 3:29 PM EDT Eos% 4.1 0.0 - 5.0 % 02/24/2022 3:29 PM EDT Baso% 1.7 0.0 - 3.0 % 02/24/2022 3:29 PM EDT Neut# 1.11(L) 2.00 - 8.80 K/uL 02/24/2022 3:29 PM EDT Lymph# 1.27 0.70 - 5.50 K/uL 02/24/2022 3:29 PM EDT Yazoo# 0.39 0.00 - 1.70 K/uL 02/24/2022 3:29 PM EDT Eos# 0.12 0.00 - 0.80 K/uL 02/24/2022 3:29 PM EDT Baso# 0.05(H) 0.00 - 0.02 K/uL 02/24/2022 3:29 PM EDT Blood 02/24/2022 11:2 0 AM EDT 02/24/2022 3:23 PM EDT Narrative [facility] - 02/24/2022 3:31 PM EDT Added by Discern Expert us Sle Historical Provider LAB BLOOD ORDERABLES Fi nal Result Performing Organization Address [facility]/ZIP Co de Phone Number [facility] [address] [phone] * (ABNORMAL) Creatinine (02/04/2022 1:33 PM EDT) Creatinine 1.08(H) 0.55 - 1.02 mg/dL [facility] eGFR Non (mL/min/1.73m2) 51.4(L) >60 [facility] 02/04/2022 1:33 PM EDT us Mark Peres MD LAB BLOOD ORDERABLES Final Resul t Performing Organization Address [facility]/ZIP Co de Phone Number [facility] [address] [phone] documented in this encounter Visit Diagnoses Not on filedocumented in this encounter
--- OUTSIDE RECORDS SUMMARY | 2024-08-03 17:05 | XMS_ITS | Encounter Summary ---
Author Organization [employer] Address [address] [place] [address] Care Team Providers Care Bull Gang Worker Name Role Phone Unavailable Primary Care Provider Unavailabl e Encounter Details Date Type Department Care Team (Late st Contact Info) Description 09/18/2022 Orders Only [facility] [address] [place] [address] Caleb Pacheco MD [address] [place] [address] Multiple myeloma without remission (HCC) [...] as of this encounter Results * (ABNORMAL) Oncology Chemistry Panel (10/19/2022 11:05 AM EST) Sodium 146 136 - 146 meq/L 10/19/2022 11:21 AM EST [facility] Potassium 3.1(L) 3.5 - 5.1 meq/L 10/19/2022 11:21 AM EST [facility] Chloride 108 98 - 108 meq/L 10/19/2022 11:21 AM EST [facility] CO2 32(H) 22 - 29 meq/L 10/19/2022 11:21 AM EST [facility] Anion Gap 9 10/19/2022 11:21 AM EST [facility] BUN 7 7 - 18 mg/dL 10/19/2022 11:21 AM EST [facility] Creatinine 0.90 0.60 - 1.10 mg/dL 10/19/2022 11:21 AM EST [facility] BUN/Creatinine 8 8 - 20 10/19/2022 11:21 AM EST [facility] Glucose 83 70 - 105 mg/dL 10/19/2022 11:21 AM EST [facility] Calcium Ionized (mg/dL) 4.92 4.36 - 5.20 mg/dL 10/19/2022 11:21 AM EST [facility] Blood ENTIRE LEFT UPPER ARM / Unknown Venipuncture / Unknown 10/19/2022 11:05 AM EST 10/19/2022 11:09 AM EST us Caleb Pacheco MD LAB BLOOD ORDERABLES Final Res ult [facility] [address] [facility] [employer] [address] [phone] * (ABNORMAL) Protein Electrophoresis w Rflx to RALPH(SENDOUT) (10/19/2022 11:05 AM EST) Total Protein, Serum 7.5 6.3 - 8.2 g/dL 10/26/2022 10:07 AM EST [facility] Albumin 3.50(L) 3.75 - 5.01 g/dL 10/26/2022 10:07 AM EST [facility] Alpha 1 Globulin 0.31 0.19 - 0.46 g/dL 10/26/2022 10:07 AM EST [facility] Alpha 2 Globulin 0.80 0.48 - 1.05 g/dL 10/26/2022 10:07 AM EST [facility] Beta Globulin 2.22(H) 0.48 - 1.10 g/dL 10/26/2022 10:[address] [facility] Gamma 0.68 0.62 - 1.51 g/dL 10/26/2022 10:[address] [facility] Immunofixation Reflex RALPH Done 10/26/2022 10:[address] [facility] Monoclonal Protein 1.85 g/dL 2022 10:[address] [facility] SPEP/RALPH Interpretation See Note 10/26/2022 10:[address] [facility] Comment: Monoclonal spike in the beta region. The quantitation may include complement and/or transferrin components. Measurement of total Immunoglobulin (IgA, IgG, or IgM) can be used for the quantitation of the monoclonal spike instead. RALPH gel pattern shows an IgA type lambda monoclonal protein. EER Serum Protein Electrophoresis Reflex See Note 10/26/2022 10:07 AM [facility] [employer] Comment: Authorized individuals can access the [facility] Enhanced Report using the following link: [email or web address] Performed By: [facility] [address] [place] [address] Dance Studio Manager: Parker Rangel MD, PhD Blood ENTIRE LEFT UPPER ARM / Unknown Venipuncture / Unknown 10/19/2022 11:05 AM EST 10/19/2022 11:09 AM EST us Caleb Pacheco MD LAB BLOOD ORDERABLES Final Res ult [facility] [employer] [address] [place] [address], [facility] [phone] * Nesbitt-Lambda Quant FLC with Ratio(SENDOUT) (10/19/2022 11:05 AM EST) Nesbitt Qnt Free Light Chains 17.44 3.30 - 19.40 mg/L 10/24/2022 1:43 AM EST [facility] [employer] Comment: INTERPRETIVE INFORMATION: Nesbitt Qnt Free Light Chains Undetected antigen excess is a rare event but cannot be excluded. Free light chain results should always be interpreted in conjunction with other clinical and laboratory findings. Lambda Qnt Free Light Chains 21.39 5.71 - 26.30 mg/L 10/24/2022 1:43 AM EST [facility] Comment: INTERPRETIVE INFORMATION: Lambda Qnt Free Light Chains Undetected antigen excess is a rare event but cannot be excluded. Free light chain results should always be interpreted in conjunction with other clinical and laboratory findings. Nesbitt/Lambda Free Light Chain Ratio 0.82 0.26 - 1.65 10/24/2022 1:43 AM EST [facility] Comment: Performed By: [facility] [address] [place] [address] Dance Studio Manager: Parker Rangel MD, PhD Blood ENTIRE LEFT UPPER ARM / Unknown Venipuncture / Unknown 10/19/2022 11:05 AM EST 10/19/2022 11:09 AM EST us Caleb Pacheco MD LAB BLOOD ORDERABLES Final Res ult [facility] [employer] [address] [place] [address], [facility] [phone] * (ABNORMAL) CBC with automated diff (10/19/2022 11:05 AM EST) WBC 2.4(L) 4.5 - 12.5 K/??L 10/19/2022 11:12 AM EST [facility] RBC 3.58(L) 4.00 - 5.25 M/??L 10/19/2022 11:12 AM EST [facility] Hemoglobin 11.9(L) 12.0 - 16.0 GM/DL 10/19/2022 11:12 AM EST [facility] Hematocrit 37.7 36.0 - 46.0 % 10/19/2022 11:12 AM EST [facility] MCV 105(H) 80 - 100 fL 10/19/2022 11:12 AM EST [facility] MCH 33.2 26.0 - 34.0 pg 10/19/2022 11:12 AM EST [facility] MCHC 31.6 31.0 - 37.0 GM/DL 10/19/2022 11:12 AM EST [facility] RDW 12.9 12.0 - 16.8 % 10/19/2022 11:12 AM EST [facility] Platelets 148 140 - 440 K/CU MM 10/19/2022 11:12 AM EST [facility] MPV 9.2 7.4 - 10.4 fL 10/19/2022 11:12 AM EST [facility] % Neutros 34(L) 45 - 80 % 10/19/2022 11:12 AM EST [facility] % Lymphs 48(H) 15 - 45 % 10/19/2022 11:12 AM EST [facility] % Monos 12(H) 0 - 10 % 10/19/2022 11:12 AM EST [facility] % Eos 5 0 - 5 % 10/19/2022 11:12 AM EST [facility] % Baso 1 0 - 3 % 10/19/2022 11:12 AM EST [facility] # Neutros 0.80(L) 2.00 - 8.80 K/??L 10/19/2022 11:12 AM EST [facility] # Lymphs 1.15 0.70 - 5.50 K/??L 10/19/2022 11:12 AM EST [facility] # Monos 0.29 0.00 - 1.70 K/??L 10/19/2022 11:12 AM EST [facility] # Eos 0.12 0.00 - 0.80 K/??L 10/19/2022 11:12 AM EST [facility] # Baso 0.02 0.00 - 0.20 K/??L 10/19/2022 11:12 AM EST [facility] Blood ENTIRE LEFT UPPER ARM / Unknown Venipuncture / Unknown 10/19/2022 11:05 AM EST 10/19/2022 11:09 AM EST Narrative [facility] - 10/19/2022 11:12 AM EST When CBC w/ Auto Diff [...] ORDERABLES Final Res ult [facility] [address] [place] [address], [facility] [phone] documented in this encounter Visit Diagnoses Diagnosis Multiple myeloma without remission (HCC)- Primary documented in this encounter
--- OUTSIDE RECORDS SUMMARY | 2024-08-03 17:05 | XMS_ITS | Encounter Summary ---
Author Organization [employer] Address [address] [place] [address] Care Team Providers Care Table Games Shift Manager Name Role Phone Unavailable Primary Care Provider Unavailabl e Encounter Details Date Type Department Care Team (Latest Contact Info) Description 10/19/2022 11:00 AM EST Lab Patient Walk-In [place] [facility] - [facility] [address] [place] [address] Caleb Pacheco MD [facility] [facility] [address] [place] [address] Multiple myeloma without remission (HCC) [...] Pressure - - Pulse - - Temperature 36.4 ??C (97.5 ??F) 10/19/2022 11:[address] Respiratory Rate - - Oxygen Saturation - - Inhaled Oxygen Concentration - - Weight 114.8 kg (253 lb) 10/19/2022 11:11 AM EST Height - - Body Mass Index 39.02 06/16/2022 9:00 AM EDT documented in this encounter Plan of Treatment Not on file documented as of this encounter Procedures Procedure Name Priority Date/Time Associated Diagnosis Comments IMMUNOFIX ELECTROPHORESIS BILL(SENDOUT) Routine 10/19/2022 11:05 AM EST Multiple myeloma without remission (HCC) CBC W/ AUTO DIFF Routine 10/19/2022 11:0 5 AM EST Multiple myeloma without remission (HCC) ONOCOLOGY CHEMISTRY PANEL Routine 10/19/2022 11:05 AM EST Multiple myeloma without remission (HCC) PROTEIN ELECTROPHORESIS W RFLX TO RALPH(SENDOUT) Routine 10/19/2022 11:05 AM EST Multiple myeloma without remission (HCC) KAPPA-LAMBDA QUANT FLC WITH RATIO(SENDOUT) Routine 10/19/2022 11:05 AM EST Multiple myeloma without remission (HCC) IMMUNOGLOBULIN M(SENDOUT) Routine 10/19/2022 11:05 AM EST Multiple myeloma without remission (HCC) IMMUNOGLOBULIN G(SENDOUT) Routine 10/19/2022 11:05 AM EST Multiple myeloma without remission (HCC) IMMUNOGLOBULIN A(SENDOUT) Routine 10/19/2022 11:05 AM EST Multiple myeloma without remission (HCC) documented in this encounter Results * (ABNORMAL) Immunoglobulin A(SENDOUT) (10/19/2022 11:05 AM EST) Immunoglobulin A 1384(H) 68 - 408 mg/dL 10/26/2022 10:09 AM EST [facility] Comment: REFERENCE INTERVAL: Immunoglobulin A Access complete set of age- and/or gender-specific reference intervals for this test in the [facility] Test Directory ([employer]). Performed By: [employer] [address] [place] [address] Dental Tech: Parker Rangel MD, PhD Blood ENTIRE LEFT UPPER ARM / Unknown Venipuncture / Unknown 10/19/2022 11:05 AM EST 10/19/2022 11:09 AM EST Caleb Pacheco MD LAB BLOOD ORDERABLES Final Res ult Performing Organization Address [facility] de Phone Number [address] [phone] * (ABNORMAL) Immunoglobulin M(SENDOUT) (10/19/2022 11:05 AM EST) Immunoglobulin M 26(L) 35 - 263 mg/dL 10/26/2022 10:08 AM EST [facility] Comment: REFERENCE INTERVAL: Immunoglobulin M Access complete set of age- and/or gender-specific reference intervals for this test in the [employer] Test Directory ([employer]). Performed By: [employer] [address] [place] [address] Dental Tech: Parker Rangel MD, PhD Blood ENTIRE LEFT UPPER ARM / Unknown Venipuncture / Unknown 10/19/2022 11:05 AM EST 10/19/2022 11:09 AM EST Caleb Pacheco MD LAB BLOOD ORDERABLES Final Res ult Performing Organization Address [facility] de Phone Number [address] [phone] * (ABNORMAL) Immunoglobulin G(SENDOUT) (10/19/2022 11:05 AM EST) Pathologist [facility] Immunoglobulin G 722(L) 768 - 1632 mg/dL 10/26/2022 10:08 AM EST [facility] Comment: REFERENCE INTERVAL: Immunoglobulin G Access complete set of age- and/or gender-specific reference intervals for this test in the [facility] Test Directory ([employer]). Performed By: [employer] [address] [place] [address] Dental Tech: Parker Rangel MD, PhD Blood ENTIRE LEFT UPPER ARM / Unknown Venipuncture / Unknown 10/19/2022 11:05 AM EST 10/19/2022 11:09 AM EST Caleb Pacheco MD LAB BLOOD ORDERABLES Final Res ult Performing Organization Address [facility]/ZIP Co de Phone Number [facility] [employer] [address] [place] [address] * [employer] Electrophoresis Bill(SENDOUT) (10/19/2022 11:05 AM EST) [employer] Electrophoresis Bill Billed 10/26/2022 10:07 AM EST [facility] [employer] Comment: Performed By: [employer] [address] [place] [address] Dental Tech: Parker Rangel MD, PhD Blood ENTIRE LEFT UPPER ARM / Unknown Venipuncture / Unknown 10/19/2022 11:05 AM EST 10/19/2022 11:09 AM EST Caleb Pacheco MD LAB BLOOD ORDERABLES Final Res ult Performing Organization Address [facility] de Phone Number [employer] [address] [place] [address] * (ABNORMAL) Oncology Chemistry Panel (10/19/2022 11:05 AM EST) Pathologist [facility] Sodium 146 136 - 146 meq/L 10/19/2022 11:21 AM EST [facility] Potassium 3.1(L) 3.5 - 5.1 meq/L 10/19/2022 11:21 AM EST [facility] Chloride 108 98 - 108 meq/L 10/19/2022 11:21 AM EST [facility] CO2 32(H) 22 - 29 meq/L 10/19/2022 11:21 AM EST [facility] Anion Gap 9 10/19/2022 11:21 AM EST [facility] BUN 7 7 - 18 mg/dL 10/19/2022 11:21 AM EST [facility] Creatinine 0.90 0.60 - 1.10 mg/dL 10/19/2022 11:21 AM EST [facility] BUN/Creatinine 8 8 - 20 10/19/2022 11:21 AM EST [facility] Glucose 83 70 - 105 mg/dL 10/19/2022 11:21 AM EST [facility] Calcium Ionized (mg/dL) 4.92 4.36 - 5.20 mg/dL 10/19/2022 11:21 AM EST [facility] Blood ENTIRE LEFT UPPER ARM / Unknown Venipuncture / Unknown 10/19/2022 11:05 AM EST 10/19/2022 11:09 AM EST Caleb Pacheco MD LAB BLOOD ORDERABLES Final Res ult [facility] [address] [employer] [address] [phone] * (ABNORMAL) Protein Electrophoresis w Rflx to RALPH(SENDOUT) (10/19/2022 11:05 AM EST) Total Protein, Serum 7.5 6.3 - 8.2 g/dL 10/26/2022 10:07 AM [facility] [employer] Albumin 3.50(L) 3.75 - 5.01 g/dL 10/26/2022 10:07 AM EST [facility] Alpha 1 Globulin 0.31 0.19 - 0.46 g/dL 10/26/2022 10:07 AM [facility] [employer] [facility] Alpha 2 Globulin 0.80 0.48 - 1.05 g/dL 10/26/2022 10:07 AM EST [facility] Beta Globulin 2.22(H) 0.48 - 1.10 g/dL 10/26/2022 10:07 AM EST [facility] Gamma 0.68 0.62 - 1.51 g/dL 10/26/2022 10:07 AM EST [facility] Immunofixation Reflex RALPH Done 10/26/2022 10:07 AM EST [facility] Monoclonal Protein 1.85 g/dL 2022 10:07 AM EST [facility] SPEP/RALPH Interpretation See Note 10/26/2022 10:07 AM EST [facility] Comment: Monoclonal spike in the beta region. The quantitation may include complement and/or transferrin components. Measurement of total Immunoglobulin (IgA, IgG, or IgM) can be used for the quantitation of the monoclonal spike instead. RALPH gel pattern shows an IgA type lambda monoclonal protein. EER Serum Protein Electrophoresis Reflex See Note 10/26/2022 10:07 AM EST [facility] Comment: Authorized individuals can access the [facility] Enhanced Report using the following link: [email or web address] Performed By: [employer] [address] [place] [address] Dental Tech: Parker Rangel MD, PhD Blood ENTIRE LEFT UPPER ARM / Unknown Venipuncture / Unknown 10/19/2022 11:05 AM EST 10/19/2022 11:09 AM EST Caleb Pacheco MD LAB BLOOD ORDERABLES Final Res ult [facility] [employer] [address] [place] [address], [facility] [phone] * Shickley-Lambda Quant FLC with Ratio(SENDOUT) (10/19/2022 11:05 AM EST) [place] Qnt Free Light Chains 17.44 3.30 - 19.40 mg/L 10/24/2022 1:43 AM EST [facility] Comment: INTERPRETIVE INFORMATION: [place]ickley Qnt Free Light Chains Undetected antigen excess is a rare event but cannot be excluded. Free light chain results should always be interpreted in conjunction with other clinical and laboratory findings. Lambda Qnt Free Light Chains 21.39 5.71 - 26.30 mg/L 10/24/2022 1:43 AM EST [facility] Comment: INTERPRETIVE INFORMATION: Lambda Qnt Free Light Chains Undetected antigen excess is a rare event but cannot be excluded. Free light chain results should always be interpreted in conjunction with other clinical and laboratory findings. [place]ickley/Lambda Free Light Chain Ratio 0.82 0.26 - 1.65 10/24/2022 1:43 AM EST [facility] Comment: Performed By: [employer] [address] [place] [address] Dental Tech: Parker Rangel MD, PhD Blood ENTIRE LEFT UPPER ARM / Unknown Venipuncture / Unknown 10/19/2022 11:05 AM EST 10/19/2022 11:09 AM EST us Caleb Pacheco MD LAB BLOOD ORDERABLES Final Res ult [facility] [address] [place] [id number], [facility] [phone] * (ABNORMAL) CBC with automated diff (10/19/2022 [...] EST [facility] Platelets 148 140 - 440 K/CU MM [...] [facility] # Neutros 0.80(L) 2.00 - 8.80 K/??L 10/19/2022 11:12 AM EST [facility] # Lymphs 1.15 0.70 - 5.50 K/??L [...] Narrative [facility] - 10/19/2022 11:12 AM EST When CBC [...] ult [facility] [address] [employer] [address] [phone] documented in this encounter Visit Diagnoses Diagnosis Multiple myeloma without remission (HCC) documented in this encounter
--- OUTSIDE RECORDS SUMMARY | 2024-08-03 17:05 | XMS_ITS | Encounter Summary ---
Author Organization [facility] [employer] Address [address] [place] [address] Care Team Providers Care Insurance Risk Surveyor Name Role Phone Unavailable Primary Care Provider Unavailabl e Encounter Details Date Type Department Care Team (Late st Contact Info) Description 07/28/2022 Orders Only [facility] [email or web address] [place] [phone] Jenny Traore RN Social History Tobacco Use Types Packs/Day [...]
--- OUTSIDE RECORDS SUMMARY | 2024-08-03 17:05 | XMS_ITS | Encounter Summary ---
Author Organization [employer] Address [address] [place] [address] Care Team Providers Care Design Engineer Name Role Phone Unavailable Primary Care Provider Unavailabl e Reason for Visit * Reason Comments Injections Darzalex/Xgeva * Episode Based Medication (Routine) - Closed Specialty Diagnoses / Procedures Referred By Ana Paula anne Referred To Contact Diagnoses Multiple myeloma without remission (HCC) Procedures GA DARATUMUMAB, HYALURONIDASE Daratumumab-[id number] Caleb Pacheco MD [address] [facility] [address] [place] [address] Phone: tel: fax: [facility] - [facility] [email or web address] [place] [id number] Phone: tel: fax: Referral ID Status Reason Start Date Expiration Date Visits Re quested Visits Authorized [id number] Closed 10/20/2022 05/14/2024 1 100 Encounter Details Date Type Department Care Team (Late st Contact Info) Description 11/03/2022 9:30 AM EST Infusion [facility] - [facility] [address] [place] [address] Caleb Pacheco MD [address] [facility] [address] [place] [address] Multiple myeloma without remission (HCC) [...] Sign Reading Time Taken Comments Blood Pressure 139/74 11/03/2022 11:10 AM EST Pulse 64 11/03/2022 11:10 AM EST Temperature - - Respiratory Rate 18 11/03/2022 11:10 AM EST Oxygen Saturation 99% 11/03/2022 11:10 AM EST Inhaled Oxygen Concentration - - Weight - - Height - - Body Mass Index - - documented in this encounter Progress Notes * Jennifer Ibarra RN - 11/03/2022 9:30 AM EST Pt. Tolerated well. Left ambulatory. Watched x 30 mins post Darzalex. See vital signs. 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 documented in this encounter Plan of Treatment Not on file documented as of this encounter Visit Diagnoses Diagnosis Multiple myeloma without remission (HCC)- Primary documented in this encounter Administered Medications Inactive Administered Medications - up to 3 most recent administrations Medication Order MAR Action Action Date Dose Rate Site acetaminophen (TYLENOL) tablet 650 mg 650 mg Once, oral, On Wed11/03/22 at 1000, For 1 dose, Recommended maximum dose of acetaminophen is 4000 mg from all sources in 24 hoursIndications:Multiple myeloma without remission (HCC) Given 11/03/2022 9:51 AM EST 650 mg daratumumab-hyaluronidase -fihj (DARZALEX FASPRO) 1,800 mg-30,000 unit/15 mL subcutaneous injection 1,800 mg 1,800 mg Once, subcutaneous, On Wed11/03/22 at 1030, For 1 dose, FLAT DOSING Administer into the subcutaneous tissue of the abdomen about 3 inches to the right or left of the navel over 3-5 minutes. Rotate injection sites for successive injections.Indications:Mu ltiple myeloma without remission (HCC) Given 11/03/2022 10:36 AM EST 1,800 mg Abdominal Tissue denosumab (XGEVA) subcutaneous injection 120 mg 120 mg Once, subcutaneous, On Wed11/03/22 at 1000, For 1 dose, * Refrigerated * Bring to room temperature 15 to 30 minutes prior to administration., This medication is restricted to use in outpatients only. Is this patient in outpatient status? YesIndications:Multiple myeloma without remission (HCC) Given 11/03/2022 10:38 AM EST 120 mg Right Arm diphenhydrAMINE (BENADRYL) capsule 25 mg 25 mg Once, oral, On Wed11/03/22 at 1000, For 1 dose,Indications:Multiple myeloma without remission (HCC) Given 11/03/2022 9:51 AM EST 25 mg documented in this encounter
--- OUTSIDE RECORDS SUMMARY | 2024-08-03 17:05 | XMS_ITS | Encounter Summary ---
Author Organization [employer] Address [address] [place] [address] Care Team Providers Care Auditor In Charge Name Role Phone Unavailable Primary Care Provider Unavailabl e Encounter Details Date Type Department Care Team (Latest Contact Info) Description 09/18/2022 12:45 PM EST Lab Patient Walk-In [place] [facility] - [employer] [address] [employer] [address] [address] Multiple myeloma without remission (HCC) Social History [...] Pressure - - Pulse - - Temperature 36.5 ??C (97.7 ??F) 09/18/2022 1:05 PM ES T Respiratory Rate - - Oxygen Saturation - - Inhaled Oxygen Concentration - - Weight 116.5 kg (256 lb 12.8 oz) 09/18/2022 1:05 PM EST Height - - Body Mass Index 39.6 06/16/2022 9:00 AM EDT documented in this encounter Plan of Treatment Not on file documented as of this encounter Procedures Procedure Name Priority Date/Time Associated Diagnosis Comments CBC W/ AUTO DIFF STAT 09/18/2022 1:02 PM EST Multiple myeloma without remission (HCC) ONOCOLOGY CHEMISTRY PANEL Routine 09/18/2022 1:02 PM EST Multiple myeloma without remission (HCC) documented in this encounter Results * BMP (Onc Lab) (09/18/2022 1:02 PM EST) Sodium 143 136 - 146 meq/L 09/18/2022 1:11 PM EST [facility] Potassium 3.7 3.5 - 5.1 meq/L 09/18/2022 1:11 PM EST [facility] Chloride 105 98 - 108 meq/L 09/18/2022 1:11 PM EST [facility] CO2 25 22 - 29 meq/L 09/18/2022 1:11 PM EST [facility] Anion Gap 17 09/18/2022 1:11 PM EST [facility] BUN 11 7 - 18 mg/dL 09/18/2022 1:11 PM EST [facility] Creatinine 0.60 0.60 - 1.10 mg/dL 09/18/2022 1:11 PM EST [facility] BUN/Creatinine 18 8 - 20 09/18/2022 1:11 PM EST [facility] Glucose 94 70 - 105 mg/dL 09/18/2022 1:11 PM EST [facility] Calcium Ionized (mg/dL) 4.82 4.36 - 5.20 mg/dL 09/18/2022 1:11 PM EST [facility] Blood ENTIRE LEFT UPPER ARM / Unknown Venipuncture / Unknown 09/18/2022 1:02 PM EST 09/18/2022 1:06 PM EST us Caleb Pacheco MD LAB BLOOD ORDERABLES Final Res ult [facility] [address] [facility] [address] [phone] * (ABNORMAL) CBC with Automated Diff (09/18/2022 1:02 PM EST) [facility] WBC 2.4(L) 4.5 - 12.5 K/??L 09/18/2022 1:09 PM EST [facility] RBC 3.76(L) 4.00 - 5.25 M/??L 09/18/2022 1:09 PM EST [facility] Hemoglobin 12.5 12.0 - 16.0 GM/DL 09/18/2022 1:09 PM EST [facility] Hematocrit 39.4 36.0 - 46.0 % 09/18/2022 1:09 PM EST [facility] MCV 105(H) 80 - 100 fL 09/18/2022 1:09 PM EST [facility] MCH 33.2 26.0 - 34.0 pg 09/18/2022 1:09 PM EST [facility] MCHC 31.7 31.0 - 37.0 GM/DL 09/18/2022 1:09 PM EST [facility] RDW 13.3 12.0 - 16.8 % 09/18/2022 1:09 PM EST [facility] Platelets 153 140 - 440 K/CU MM 09/18/2022 1:09 PM EST [facility] MPV 9.3 7.4 - 10.4 fL 09/18/2022 1:09 PM EST [facility] % Neutros 37(L) 45 - 80 % 09/18/2022 1:09 PM EST [facility] % Lymphs 45 15 - 45 % 09/18/2022 1:09 PM EST [facility] % Monos 12(H) 0 - 10 % 09/18/2022 1:09 PM EST [facility] % Eos 5 0 - 5 % 09/18/2022 1:09 PM EST [facility] % Baso 1 0 - 3 % 09/18/2022 1:09 PM EST [facility] # Neutros 0.89(L) 2.00 - 8.80 K/??L 09/18/2022 1:09 PM EST [facility] # Lymphs 1.10 0.70 - 5.50 K/??L 09/18/2022 1:09 PM EST [facility] # Monos 0.30 0.00 - 1.70 K/??L 09/18/2022 1:09 PM EST [facility] # Eos 0.12 0.00 - 0.80 K/??L 09/18/2022 1:09 PM EST [facility] # Baso 0.03 0.00 - 0.20 K/??L 09/18/2022 1:09 PM EST [facility] Blood ENTIRE LEFT UPPER ARM / Unknown Venipuncture / Unknown 09/18/2022 1:02 PM EST 09/18/2022 1:06 PM EST Narrative [facility] - 09/18/2022 1:09 PM EST When CBC w/ Auto Diff [...] [facility] [address] [facility] [address] [phone] documented in this encounter Visit Diagnoses Diagnosis Multiple myeloma without remission (HCC) documented in this encounter
--- OUTSIDE RECORDS SUMMARY | 2024-08-03 17:05 | XMS_ITS | Encounter Summary ---
Author Organization [employer] Address [address] [place] [address] Care Team Providers Care Pbx Technician Name Role Phone Unavailable Primary Care Provider Unavailabl e Encounter Details Date Type Department Care Team (Late st Contact Info) Description 08/04/2022 Orders Only [place] [facility] - [facility] [address] [place] [address] Caleb Pacheco MD [address] [facility] [address] [place] [address] Multiple myeloma without remission (HCC) [...] documented as of this encounter Results * BMP (Onc Lab) [...] ult [facility] [address] [place] [address], [facility] [phone] documented in this encounter Visit Diagnoses Diagnosis Multiple myeloma without remission (HCC)- Primary documented in this encounter
--- OUTSIDE RECORDS SUMMARY | 2024-08-03 17:05 | XMS_ITS | Encounter Summary ---
Author Organization [employer] Address [address] [place] [address] Care Team Providers Care Equalizer Operator Name Role Phone Unavailable Primary Care Provider Unavailabl e Reason for Visit * Reason Comments Follow-up Injections Encounter Details Date Type Department Care Team (Late st Contact Info) Description 10/19/2022 11:15 AM EST Office Visit [facility] - [employer] [address] [facility] [address] [place] [address] Raimundo Pacheco MD [facility] [facility] [address] [place] [address] Multiple myeloma without remission (HCC) [...] Sign Reading Time Taken Comments Blood Pressure 154/80 10/19/2022 11:54 AM EST Pulse 76 10/19/2022 11:54 AM EST Temperature - - Respiratory Rate 18 10/19/2022 11:54 AM EST Oxygen Saturation 98% 10/19/2022 11:54 AM EST Inhaled Oxygen Concentration - - Weight - - Height - - Body Mass Index - - documented in this encounter Progress Notes * Raimundo Pacheco MD - 10/19/2022 11:15 AM EST Chief Complaint: History of Present Illness: Francy aBiley is a 62 y.o. female who presents today for follow up of multiple myeloma. Mrs. Mcdonald has been on Revlimid. She has had a worsening of her M spike. Her free light chain ratio does not seem to be dependable. She has had some lower back pain that is been more severe. I had herget an MRI of her lumbar spine she is also had a bone survey. She has not lost weight. She is without other additional complaints or problems. Past Medical History: Diagnosis Date ??? Asthma ??? 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 Chronic low back pain ??? DVT (deep venous thrombosis) ([facility]) ??? History of shingles 12/2019 ??? Hypertension ??? Multiple myeloma ([facility]) ??? Peripheral neuropathy ??? Pulmonary embolism ([facility]) Past Surgical History: Procedure Laterality Date ??? [...] Initial Diagnosis Multiple myeloma without remission (HCC) Allergies: Ampicillin, Codeine, Indomethacin, Morphine, and Penicillin Medications: Current Outpatient Medications on File Prior to Visit Medication Sig Dispense Refill ??? amitriptyline (ELAVIL) 10 MG tablet SMARTSI Tablet(s) By Mouth Every Evening PRN ??? ascorbic acid, vitamin C, (VITAMIN C) 250 MG tablet Take 500 mg by mouth. ??? BIOTIN ORAL Take 6,000 mcg by mouth. ??? busPIRone (BUSPAR) 15 MG tablet Take 15 mg by mouth 3 (three) times daily. ??? cyanocobalamin (VITAMIN B-12) 1000 MCG tablet [...] 4 (four) times daily as needed. ??? Mucus Relief ER 600 mg 12 hr tablet Take 1,200 mg by mouth 2 (two) times daily. ??? OneTouch Verio test strips Strp 2 (two) times daily. ??? PARoxetine (PAXIL) 30 MG tablet Take 30 mg by mouth daily. ??? potassium chloride SA (K-DUR,KLOR-CON-M) 20 MEQ tablet Take 20 mEq by mouth daily. ??? ProAir HFA 90 [...] of Systems Musculoskeletal: Positive for back pain. Vitals: Vitals: 10/19/22 1154 BP: (!) 154/80 Pulse: 76 Resp: 18 SpO2: 98% Physical Exam: Physical Exam Vitals reviewed. HENT: Head: Normocephalic. Mouth/Throat: Mouth: Mucous membranes are moist. Eyes: Pupils: Pupils are equal, round, and reactive to light. Cardiovascular: Rate and Rhythm: Normal rate and regular rhythm. Pulmonary: Effort: Pulmonary effort is normal. Breath sounds: Normal breath sounds. Abdominal: General: Abdomen is flat. Palpations: Abdomen is soft. Musculoskeletal: General: Normal range of motion. Cervical back: Normal range of motion. Comments: Significant bone pain in the lumbar spine Neurological: General: No focal deficit present. Mental Status: She is alert. Relevant Results: Clinical Support on 10/19/2022 Component Date Value Ref Range Status ??? WBC 10/19/2022 2.4 (A) 4.5 - 12.5 K/??L Final ??? RBC 10/19/2022 3.58 (A) 4.00 - 5.25 M/??L Final ??? Hemoglobin 10/19/2022 11.9 (A) 12.0 - 16.0 GM/DL Final ??? Hematocrit 10/19/2022 37.7 36.0 - 46.0 % Final ??? MCV 10/19/2022 105 (A) 80 - 100 fL Final ??? MCH 10/19/2022 33.2 26.0 - 34.0 pg Final ??? MCHC 10/19/2022 31.6 31.0 - 37.0 GM/DL Final ??? RDW 10/19/2022 12.9 12.0 - 16.8 % Final ??? Platelets 10/19/2022 148 140 - 440 K/CU MM Final ??? MPV 10/19/2022 9.2 7.4 - 10.4 fL Final ??? % Neutros 10/19/2022 34 (A) 45 - 80 % Final ??? % Lymphs 10/19/2022 48 (A) 15 - 45 % Final ??? % Monos 10/19/2022 12 (A) 0 - 10 % Final ??? % Eos 10/19/2022 5 0 - 5 % Final ??? % Baso 10/19/2022 1 0 - 3 % Final ??? # Neutros 10/19/2022 0.80 (A) 2.00 - 8.80 K/??L Final ??? # Lymphs 10/19/2022 1.15 0.70 - 5.50 K/??L Final ??? # Monos 10/19/2022 0.29 0.00 - 1.70 K/??L Final ??? # Eos 10/19/2022 0.12 0.00 - 0.80 K/??L Final ??? # Baso 10/19/2022 0.02 0.00 - 0.20 K/??L Final ??? Sodium 10/19/2022 146 136 - 146 meq/L Final ??? Potassium 10/19/2022 3.1 (A) 3.5 - 5.1 meq/L Final ??? Chloride 10/19/2022 108 98 - 108 meq/L Final ??? CO2 10/19/2022 32 (A) 22 - 29 meq/L Final ??? Anion Gap 10/19/2022 9 Final ??? BUN 10/19/2022 7 7 - 18 mg/dL Final ??? Creatinine 10/19/2022 0.90 0.60 - 1.10 mg/dL Final ??? BUN/Creatinine 10/19/2022 8 8 - 20 Final ??? Glucose 10/19/2022 83 70 - 105 mg/dL Final ??? Calcium Ionized (mg/dL) 10/19/2022 4.92 4.36 - 5.20 mg/dL Final No results found. Cancer Staging No matching staging information was found for the patient. Plan: Her hemoglobin continues to drop and was 11.9. Her creatinine and calcium are normal. Her M spike from today is pending but was 0.7 in the summer and up to 1.5 by 21 July. I have spoken to at the [facility]. He recommends to be switch her to pomalidomide and I have recommended Darzalex. He does not wish to place her back on Velcade. I will work on getting this approved. I have delayed her Xgeva today until she returns. Also received a new phone number for family member. The patient is near impossible to get a hold of. I have answered her questions. SIgned: Electronically signed by RAIMUNDO PACHECO MD 10/19/22 4:46 PM EST No primary care provider on file. DECK TENDER documented in this encounter Plan of Treatment Not on file documented as of this encounter Visit Diagnoses Diagnosis Multiple myeloma without remission (HCC)- Primary documented in this encounter
--- OUTSIDE RECORDS SUMMARY | 2024-08-03 17:05 | XMS_ITS | Encounter Summary ---
Author Organization [employer] Address [address] [place] [address] Care Team Providers Care Receiving Associate Name Role Phone Unavailable Primary Care Provider Unavailabl e Encounter Details Date Type Department Care Team (Late st Contact Info) Description 10/20/2022 Orders Only [place] [facility] - [facility] [email or web address] [place] [address] Caleb Pacheco MD [address] [facility] [address] [place] [address] Social History Tobacco Use Types [...]
--- OUTSIDE RECORDS SUMMARY | 2024-08-03 17:05 | XMS_ITS | Encounter Summary ---
Author Organization [employer] Address [address] [place] [address] Care Team Providers Care Automotive Heavy Mechanic Name Role Phone Unavailable Primary Care Provider Unavailabl e Reason for Visit * Reason Comments Medication Refill Encounter Details Date Type Department Care Team (Late st Contact Info) Description 10/15/2022 Refill [place] [facility] - [facility] [address] [place] [address] Caleb Pacheco MD [facility] [address] [place] [address] Social History Tobacco Use Types [...]
--- OUTSIDE RECORDS SUMMARY | 2024-08-03 17:05 | XMS_ITS | Encounter Summary ---
Author Organization [employer] Address [address] [place] [address] Care Team Providers Care Bartender Server Name Role Phone Unavailable Primary Care Provider Unavailabl e Encounter Details Date Type Department Care Team (Late st Contact Info) Description 07/19/2022 Orders Only [facility] - [employer] [facility] [address] [place] [address] Caleb Pacheco MD [address] [facility] [address] [place] [address] Multiple myeloma without remission (HCC) [...] documented as of this encounter Results * [place]-Lambda Quant FLC with Ratio (07/20/2022 11:43 AM EDT) [place] Qnt Free Light Chains 17.77 3.30 - 19.40 mg/L 07/23/2022 6:00 AM EDT [facility] Comment: INTERPRETIVE INFORMATION: [place] Qnt Free Light Chains Undetected antigen excess is a rare event but cannot be excluded. Free light chain results should always be interpreted in conjunction with other clinical and laboratory findings. Lambda Qnt Free Light Chains 21.27 5.71 - 26.30 mg/L 07/23/2022 6:00 AM EDT [facility] Comment: INTERPRETIVE INFORMATION: Lambda Qnt Free Light Chains Undetected antigen excess is a rare event but cannot be excluded. Free light chain results should always be interpreted in conjunction with other clinical and laboratory findings. [place]/Lambda Free Light Chain Ratio 0.84 0.26 - 1.65 07/23/2022 6:00 AM EDT [facility] Comment: Performed By: [facility] [address] [place] [address] Auto Adjudication Specialist: Parker Rangel MD, PhD Blood Venipuncture / Unknown 07/20/2022 11:43 AM EDT 07/20/2022 11:46 AM EDT us Caleb Pacheco MD LAB [place]OD [place] [address], [facility] [phone] * (ABNORMAL) Protein Electrophoresis w Rflx to RALPH (07/20/2022 11:43 AM EDT) Total Protein, Serum 7.4 6.3 - 8.2 g/dL 07/25/2022 1:24 AM EDT [facility] Albumin 3.41(L) 3.75 - 5.01 g/dL 07/25/2022 1:24 AM EDT [facility] Alpha 1 Globulin 0.34 0.19 - 0.46 g/dL 07/25/2022 1:24 AM EDT [facility] Alpha 2 Globulin 0.89 0.48 - 1.05 g/dL 07/25/2022 1:24 AM EDT [facility] Beta Globulin 1.95(H) 0.48 - 1.10 g/dL 07/25/2022 1:24 AM EDT [facility] Gamma 0.81 0.62 - 1.51 g/dL 07/25/2022 1:24 AM EDT [facility] Immunofixation Reflex RALPH Done 07/25/2022 1:24 AM EDT [facility] Monoclonal Protein 1.53 g/dL 2021 1:24 AM EDT [facility] SPEP/RALPH Interpretation See Note 07/25/2022 1:24 AM EDT [facility] Comment: M-spike in the beta region. ??The monoclonal protein peak accounts for 1.53 g/dL of the total 1.95 g/dL of protein in the beta region. ??This quantitation may include complement and/or transferrin components. ??RALPH gel pattern shows an IgA type lambda monoclonal protein. EER Serum Protein Electrophoresis Reflex See Note 07/25/2022 1:24 AM EDT [facility] Comment: Authorized individuals can access the [employer] Enhanced Report using the following link: [email or web address] Performed By: [facility] [address] [place] [address] Auto Adjudication Specialist: Parker Rangel MD, PhD Blood Venipuncture / Unknown 07/20/2022 11:43 AM EDT 07/20/2022 11:46 AM EDT us Caleb Pacheco MD LAB BLOOD ORDERABLES Final Res ult [facility] [address] [place] [address], [facility] [phone] * Basic Metabolic Panel (07/20/2022 11:43 AM EDT) Sodium 142 136 - 146 meq/L 07/20/2022 6:53 PM EDT [facility] Potassium 3.5 3.5 - 5.1 meq/L 07/20/2022 6:53 PM EDT [facility] Chloride 106 102 - 112 meq/L 07/20/2022 6:53 PM EDT [facility] CO2 28 21 - 32 meq/L 07/20/2022 6:53 PM EDT [facility] Anion Gap 12 9 - 20 07/20/2022 6:53 PM EDT [facility] BUN 11 7 - 22 mg/dL 07/20/2022 6:53 PM EDT [facility] Creatinine 0.97 0.55 - 1.02 mg/dL 07/20/2022 6:53 PM EDT [facility] BUN/Creatinine 11 8 - 20 07/20/2022 6:53 PM EDT [facility] Glucose 91 74 - 106 mg/dL 07/20/2022 6:53 PM EDT [facility] Calcium 9.7 8.5 - 10.1 mg/dL 07/20/2022 6:53 PM EDT [facility] Osmolality Calc 282.1 6:53 PM EDT [facility] eGFR Non (mL/min/1.73m2) >60 >=60 mL/min/1.7 3m2 07/20/2022 6:53 PM EDT [facility] eGFR (mL/min/1.73m2) >60 >=60 mL/min/1.7 3m2 07/20/2022 6:53 PM EDT [facility] Comment:eGFR of <60 suggests chronic kidney disease if found over a 3 month period of time. eGFR <15 indicates renal failure. Blood Venipuncture / Unknown 07/20/2022 11:43 AM EDT 07/20/2022 11:46 AM EDT us Caleb Pacheco MD LAB BLOOD ORDERABLES Final Res ult [facility] [address] [place] [address], [facility] [phone] * (ABNORMAL) CBC w/ Auto Diff (07/20/2022 11:43 AM EDT) WBC 2.6(L) 4.5 - 12.5 K/??L 07/20/2022 11:54 AM EDT [facility] RBC 3.71(L) 4.00 - 5.25 M/??L 07/20/2022 11:54 AM EDT [facility] Hemoglobin 12.4 12.0 - 16.0 GM/DL 07/20/2022 11:54 AM EDT [facility] Hematocrit 39.1 36.0 - 46.0 % 07/20/2022 11:54 AM EDT [facility] MCV 105(H) 80 - 100 fL 07/20/2022 11:54 AM EDT [facility] MCH 33.4 26.0 - 34.0 pg 07/20/2022 11:54 AM EDT [facility] MCHC 31.7 31.0 - 37.0 GM/DL 07/20/2022 11:54 AM EDT [facility] RDW 12.9 12.0 - 16.8 % 07/20/2022 11:54 AM EDT [facility] Platelets 125(L) 140 - 440 K/CU MM 07/20/2022 11:54 AM EDT [facility] MPV 9.2 7.4 - 10.4 fL 07/20/2022 11:54 AM EDT [facility] % Neutros 47 45 - 80 % 07/20/2022 11:54 AM EDT [facility] % Lymphs 36 15 - 45 % 07/20/2022 11:54 AM EDT [facility] % Monos 13(H) 0 - 10 % 07/20/2022 11:54 AM EDT [facility] % Eos 4 0 - 5 % 07/20/2022 11:54 AM EDT [facility] % Baso 0 0 - 3 % 07/20/2022 11:54 AM EDT [facility] # Neutros 1.24(L) 2.00 - 8.80 K/??L 07/20/2022 11:54 AM EDT [facility] # Lymphs 0.95 0.70 - 5.50 K/??L 07/20/2022 11:54 AM EDT [facility] # Monos 0.34 0.00 - 1.70 K/??L 07/20/2022 11:54 AM EDT [facility] # Eos 0.10 0.00 - 0.80 K/??L 07/20/2022 11:54 AM EDT [facility] # Baso 0.01 0.00 - 0.20 K/??L 07/20/2022 11:54 AM EDT [facility] Blood Venipuncture / Unknown 07/20/2022 11:43 AM EDT 07/20/2022 11:46 AM EDT Narrative [facility] - 07/20/2022 11:54 AM EDT When CBC w/ Auto Diff [...] ult [facility] [address] [place] [address], [facility] [phone] documented in this encounter Visit Diagnoses Diagnosis Multiple myeloma without remission (HCC)- Primary documented in this encounter
--- OUTSIDE RECORDS SUMMARY | 2024-08-03 17:05 | XMS_ITS | Encounter Summary ---
Author Organization [employer] Address [address] [place] [address] Care Team Providers Care Supervisor Drying And Softening Name Role Phone Unavailable Primary Care Provider Unavailabl e Reason for Visit * Reason Comments Follow-up Encounter Details Date Type Department Care Team (Late st Contact Info) Description 07/20/2022 11:15 AM EDT Office Visit [facility] - [employer] [address] [facility] [address] [place] [address] Caleb Pacheco MD [facility] [address] [place] [address] Multiple myeloma without remission (HCC) [...] Sign Reading Time Taken Comments Blood Pressure 139/81 07/20/2022 11:46 AM EDT Pulse 71 07/20/2022 11:46 AM EDT Temperature - - Respiratory Rate 19 07/20/2022 11:46 AM EDT Oxygen Saturation 98% 07/20/2022 11:46 AM EDT Inhaled Oxygen Concentration - - Weight - - Height - - Body Mass Index - - documented in this encounter Progress Notes * Jenny Traore RN - 07/20/2022 11:15 AM EDT Recent ER visit d/t lower back pain. Patient states rec'd Hyrdcodone 7.5/325, but not helpful. Alsogiven muscle relaxer, cyclobenzaprine 5 mg. This has helped some with the pain. * Caleb Pacheco MD - 07/20/2022 11:15 AM EDT Subjective: Francy Bailey is a 62 y.o. female. Chief Complaint Patient presents with ??? Follow-up I have reviewed and/or updated the following: Mrs. Bailey comes to the office today for follow-up of her diagnosis of multiple myeloma. She is on Revlimid. She had a 2 falls at home and now has pain in her back. She went to the emergency room at the [facility] in [place]. She had an x-ray there was told she had disc disease and old lytic lesions from myeloma. She is in significant pain and states that her narcotic that she is on presently does not work and that would be hydrocodone. She is without other additional new concerns or problems today. Her last M spike was 0.7 g Review of Systems All other systems reviewed and are negative. Objective: BP 139/81 Pulse 71 Resp 19 SpO2 98% Physical Exam Vitals reviewed. HENT: Head: Normocephalic. Mouth/Throat: Mouth: Mucous membranes are moist. Cardiovascular: Rate and Rhythm: Normal rate and regular rhythm. Pulmonary: Effort: Pulmonary effort is normal. Breath sounds: Normal breath sounds. Abdominal: General: Abdomen is flat. Bowel sounds are normal. Palpations: Abdomen is soft. Musculoskeletal: Cervical back: Normal range of motion. Comments: She has pain in the lumbar spine especially to the left. She has some pain in her left shoulder also but its not as intense as the discomfort in the lower back Neurological: Mental Status: She is alert. Assessment: 1. Multiple myeloma without remission (HCC) Plan: Her hemoglobin remains normal today. Her calcium and creatinine are pending. When I get her M spike results I will call her. Also we will do a lumbar spine MRI to see if she has any fracture or compression or other abnormality of her lower back. I am also can repeat her skeletal survey. We will have to compare that to her prior study that was done in a different town. I have answered her questions. No follow-ups on file. documented in this encounter Plan of Treatment Not on file documented as of this encounter Visit Diagnoses Diagnosis Multiple myeloma without remission (HCC)- Primary documented in this encounter
--- OUTSIDE RECORDS SUMMARY | 2024-08-03 17:05 | XMS_ITS | Encounter Summary ---
Author Organization [employer] Address [address] [place] [address] Care Team Providers Care Truck Driver Salesperson Name Role Phone Unavailable Primary Care Provider Unavailabl e Encounter Details Date Type Department Care Team (Late st Contact Info) Description 06/16/2022 Orders Only [place] [facility] - [employer] [address] [place] [phone] Frank Castanon, PharmD BCPS Multiple myeloma without remission (HCC) (Primary Dx) [...] - Inhaled Oxygen Concentration - - Weight 115.2 kg (253 lb 15.5 oz) 06/16/2022 9:00 AM EDT Height 171.5 cm (5' 7.52 ) 06/16/2022 9:00 AM ED T Body Mass Index 39.17 06/16/2022 9:00 AM EDT documented in this encounter Plan of Treatment Not on file documented as of this encounter Visit Diagnoses Diagnosis Multiple myeloma without remission (HCC)- Primary documented in this encounter
--- OUTSIDE RECORDS SUMMARY | 2024-08-03 17:05 | XMS_ITS | Encounter Summary ---
Author Organization [employer] Address [address] [place] [address] Care Team Providers Care Anaesthesiologist Name Role Phone Unavailable Primary Care Provider Unavailabl e Encounter Details Date Type Department Care Team (Late st Contact Info) Description 10/19/2022 11:30 AM EST Infusion [place] [facility] - [facility] [address] [place] [address] Caleb Pacheco MD [address] [facility] [address] [place] [address] Multiple myeloma without remission (HCC) [...] Progress Notes * Ivet Yee RN - 10/19/2022 11:30 AM EST Pt to return next week for injections. Discharged in stable condition. N BUILDING ARCHITECT documented in this encounter Plan of Treatment Not on file documented as of this encounter Visit Diagnoses Diagnosis Multiple myeloma without remission (HCC)- Primary documented in this encounter
--- OUTSIDE RECORDS SUMMARY | 2024-08-03 17:05 | XMS_ITS | Encounter Summary ---
Author Organization [employer] Address [address] [place] [address] Care Team Providers Care Bed Spring Maker Name Role Phone Unavailable Primary Care Provider Unavailabl e Reason for Visit * Reason Onset Date Comments Appointment 09/16/2022 Encounter Details Date Type Department Care Team (Late st Contact Info) Description 09/16/2022 Telephone [facility] - [employer] [address] [address] Jennifer Ibarra, RN Appointment Social History Tobacco Use Types Packs/Day Years Used Date Smoking Tobacco: Never Assessed Comments Unknown Sex and Gender Information Value Date Recorded Sex Assigned at Not on file Legal Sex Female 10:12 AM CDT Gender Identity Not on file Sexual Orientation Not on file documented as of this encounter Miscellaneous Notes * Telephone Encounter - Jennifer Ibarra RN - 09/16/2022 1:26 PM EST Pt. Called for Xgeva appt. For this month. She stated she missed July appt. Appt. Made for Wednesday at 1245 with labs. NESS SYSTEMS ADVISOR documented in this encounter Plan of Treatment Not on file documented as of this encounter Visit Diagnoses Not on filedocumented in this encounter
--- OUTSIDE RECORDS SUMMARY | 2024-08-03 17:05 | XMS_ITS | Encounter Summary ---
Author Organization [employer] Address [address] [place] [address] Care Team Providers Care Retail Services Professional Name Role Phone Unavailable Primary Care Provider Unavailabl e Reason for Visit * Reason Comments Injections Xgeva * Episode Based Medication (Routine) - Closed Specialty Diagnoses / Procedures Referred By Ana Paula anne Referred To Contact Diagnoses Multiple myeloma without remission (HCC) Procedures DENOSUMAB INJECTION Xgeva/ [id number] Caleb Pacheco MD [address] [facility] [address] [place] [address] Phone: tel: fax: [place] [facility] - [facility] [address] [place] [phone] Phone: tel: fax: Referral ID Status Reason Start Date Expiration Date Visits Re quested Visits Authorized [id number] Closed 06/16/2022 05/14/2024 99 100 Encounter Details Date Type Department Care Team (Late st Contact Info) Description 07/20/2022 11:30 AM EDT Infusion [place] [facility] - [facility] [address] [place] [address] Multiple myeloma without remission (HCC) (Primary Dx) [...] 116.9 kg (257 lb 11.5 oz) 2021 12:35 PM EDT Height - - Body Mass Index 39.74 06/16/2022 9:00 AM EDT documented in this encounter Progress Notes * Eliana Castillo RN - 07/20/2022 11:30 AM EDT Patient tolerated well and discharged in stable condition documented in this encounter Plan of Treatment Not on file documented as of this encounter Visit Diagnoses Diagnosis Multiple myeloma without remission (HCC)- Primary documented in this encounter Administered Medications Inactive Administered Medications - up to 3 most recent administrations Medication Order MAR Action Action Date Dose Rate Site denosumab (XGEVA) subcutaneous injection 120 mg 120 mg Once, subcutaneous, On 07/20/22 at 1300, For 1 dose, * Refrigerated * Bring to room temperature 15 to 30 minutes prior to administration., This medication is restricted to use in outpatients only. Is this patient in outpatient status? YesIndications:Multiple myeloma without remission (HCC) Given 07/20/2022 12:38 PM EDT 120 mg Righ t Arm documented in this encounter
--- OUTSIDE RECORDS SUMMARY | 2024-08-03 17:05 | XMS_ITS | Encounter Summary ---
Author Organization [employer] Address [address] [place] [address] Care Team Providers Care Commercial Project Manager Name Role Phone Unavailable Primary Care Provider Unavailabl e Reason for Visit * Reason Onset Date Comments + flu 10/26/2022 Encounter Details Date Type Department Care Team (Late st Contact Info) Description 10/26/2022 Telephone [place] [facility] - [employer] [address] [place] [phone] Monalisa Deutsch RN + flu Social History Tobacco Use Types Packs/Day Years [...] encounter Miscellaneous Notes * Telephone Encounter - Moanlisa Deutsch RN - 10/26/2022 1:04 PM EST Pt left message stating that she went to [facility] last night and tested positive for the flu. Has appt tomorrow for treatment. Returned call to pt, states feels pretty bad, not sure if she is running a fever or not. States hasnot received Pomalyst in mail yet. Also pt states that her local pharmacy did not receive dexamethasone RX. Notified. Per Dr. Pacheco, delay treatment appt. Ask pt if [facility] prescribed Tamiflu, if not send toher pharmacy. Returned call to pt. [facility] did prescribe Tamiflu and clindamycin for her. Pt rescheduled appt for 11/03/22. Called her pharmacy and gave dexamethasone order, in case they did not receive. RMATICS DEVELOPER documented in this encounter Plan of Treatment Not on file documented as of this encounter Visit Diagnoses Not on filedocumented in this encounter
--- OUTSIDE RECORDS SUMMARY | 2024-08-03 17:05 | XMS_ITS | Encounter Summary ---
Author Organization [employer] Address [address] [place] [address] Care Team Providers Care Industrial Coffee Grinder Name Role Phone Unavailable Primary Care Provider Unavailabl e Encounter Details Date Type Department Care Team (Late st Contact Info) Description 03/31/2022 Historic Encounter [address] [address] ProviderYoli Historical Social History Tobacco Use Types Packs/Day Years [...] FREE LIGHT CHAINS GAMMOPATHY PNL, SENDOUT ([facility] BKR DATA CONV) Routine 04/28/2022 11:30 AM EDT CBC W/ AUTO DIFF ([facility] BKR DATA CONV) Routine 04/28/2022 11:30 AM EDT AUTOMATED DIFFERENTIAL ([facility] BK DATA CONV) Routine 04/28/2022 11:30 AM EDT ONOCOLOGY CHEMISTRY PANEL Routine 04/28/2022 11:30 AM EDT CMP COMPREHENSIVE METABOLIC PANEL ([facility] BKR DATA CONV) Routine 03/31/2022 11:50 AM EDT documented in this encounter Results * (ABNORMAL) AUTOMATED DIFFERENTIAL ([facility] BKR DATA CONV) (04/28/2022 11:30 AM EDT) Neut% 31.7(L) 45.0 - 80.0 % 04/28/2022 3:38 PM EDT Lymph% 46.2(H) 15.0 - 45.0 % 04/28/2022 3:38 PM EDT Dundy% 14.6(H) 0.0 - 10.0 % 04/28/2022 3:38 PM EDT Eos% 6.1(H) 0.0 - 5.0 % 04/28/2022 3:38 PM EDT Baso% 1.4 0.0 - 3.0 % 04/28/2022 3:38 PM EDT Neut# 0.67(L) 2.00 - 8.80 K/uL 04/28/2022 3:38 PM EDT Lymph# 0.98 0.70 - 5.50 K/uL 04/28/2022 3:38 PM EDT Dundy# 0.31 0.00 - 1.70 K/uL 04/28/2022 3:38 PM EDT Eos# 0.13 0.00 - 0.80 K/uL 04/28/2022 3:38 PM EDT Baso# 0.03(H) 0.00 - 0.02 K/uL 04/28/2022 3:38 PM EDT Blood 04/28/2022 11:3 0 AM EDT 04/28/2022 3:34 PM EDT Narrative [facility] - 04/28/2022 3:45 PM EDT Added by Discern Expert [facility] Historical Provider LAB BLOOD ORDERABLES Fi nal Result [facility] [address] [phone] * (ABNORMAL) CBC W/ AUTO DIFF ([facility] BKR DATA CONV) (04/28/2022 11:30 AM EDT) WBC 2.1(L) 4.5 - 12.5 x10(3)/uL 04/28/2022 3:38 PM EDT RBC 3.68(L) 4.50 - 5.20 x10(3)/uL 04/28/2022 3:38 PM EDT Hgb 12.6 12.0 - 16.0 g/dL 04/28/2022 3:38 PM EDT Hct 38.7 36.0 - 46.0 % 04/28/2022 3:38 PM EDT MCV 105.2(H) 80.0 - 100.0 fL 04/28/2022 3:38 PM EDT MCH 34.2(H) 26.0 - 34.0 pg 04/28/2022 3:38 PM EDT MCHC 32.6 31.0 - 37.0 g/dL 04/28/2022 3:38 PM EDT RDW 12.3 12.0 - 16.8 % 04/28/2022 3:38 PM EDT Platelet Count 114(L) 140 - 440 x10(3)/uL 04/28/2022 3:38 PM EDT MPV 10.0 7.4 - 10.4 fL 04/28/2022 3:38 PM EDT Blood 04/28/2022 11:3 0 AM EDT 04/28/2022 3:34 PM EDT [facility] Historical Provider LAB BLOOD ORDERABLES Fi nal Result [facility] [address] [place] [address], [facility] [phone] * (ABNORMAL) Oncology Chemistry Panel (04/28/2022 11:30 AM EDT) Pathologist [facility] Glucose ONC 95 70 - 105 mg/dL 04/28/2022 3:38 PM EDT Blood Urea Nitrogen Level ONC 11 7 - 18 mg/dL 04/28/2022 3:38 PM EDT Sodium Level ONC 143 136 - 146 mmol/L 04/28/2022 3:38 PM EDT Potassium ONC 4.0 3.5 - 5.1 mmol/L 04/28/2022 3:38 PM EDT Chloride ONC 108 98 - 108 mmol/L 04/28/2022 3:38 PM EDT Creatinine Level 1.20(H) 0.60 - 1.10 mg/dL 04/28/2022 3:38 PM EDT Total Carbon Dioxide Level ONC 31(H) 22 - 29 mmol/L 04/28/2022 3:38 PM EDT Anion Gap 8(L) 9 - 20 04/28/2022 3:45 PM EDT Calcium Ionized ONC 5.10 4.36 - 5.20 mg/dL 04/28/2022 3:38 PM EDT Bun/Creatinine 9.2 8.0 - 20.0 04/28/2022 3:45 PM EDT eGFR NonAfrican 46(L) >=60 mL/min/1.7 3m2 04/28/2022 3:45 PM EDT eGFR 55(L) >=60 mL/min/1.7 3m2 04/28/2022 3:45 PM EDT Blood 04/28/2022 11:3 0 AM EDT 04/28/2022 3:35 PM EDT [facility] Historical Provider LAB BLOOD ORDERABLES Fi nal Result [facility] [address] [phone] * (ABNORMAL) FREE LIGHT CHAINS GAMMOPATHY PNL, SENDOUT ([facility] BKR DATA CONV) (04/28/2022 11:30 AM EDT) [place] FLC 21.0(H) 3.3 - 19.4 04/30/2022 9:08 PM EDT Lambda FLC 17.3 5.7 - 26.3 04/30/2022 9:08 PM EDT [place]/Lambda FLC Ratio 1.21 0.26 - 1.65 04/30/2022 9:08 PM EDT Comment: Performed At: [address] [id number] Odin Stevens PhD Ph:[phone] Protein, Total 6.6 6.0 - 8.5 g/dL 04/30/2022 9:08 PM EDT Albumin, Serum 3.3 2.9 - 4.4 g/dL 04/30/2022 9:08 PM EDT Immunofix. Interp. Comment(A) 2021 9:08 PM EDT Comment: Immunofixation shows IgA monoclonal protein with lambda light chain specificity. SPE Alpha1 Globulin 0.2 0.0 - 0.4 g/dL 04/30/2022 9:08 PM EDT SPE Alpha 2 Globulin 0.8 0.4 - 1.0 g/dL 04/30/2022 9:08 PM EDT SPE Beta Globulin 1.4(H) 0.7 - 1.3 g/dL 04/30/2022 9:08 PM EDT SPE Gamma Globulin 0.9 0.4 - 1.8 g/dL 04/30/2022 9:08 PM EDT MSpike 0.7(H) Not Observed g/dL 04/30/2022 9:08 PM EDT SPE Globulin, Total 3.3 2.2 - 3.9 g/dL 04/30/2022 9:08 PM EDT SPE A/G Ratio 1.1 0.7 - 1.7 04/30/2022 9:08 PM EDT SPE Note Comment 04/30/2022 9:08 PM EDT Comment: Protein electrophoresis scan will follow via computer, mail, or e learning coordinator delivery. IgA 764(H) 87 - 352 mg/dL 04/30/2022 9:08 PM EDT IgG 890 586 - 1602 mg/dL 04/30/2022 9:08 PM EDT IgM 27 26 - 217 mg/dL 04/30/2022 9:08 PM EDT Blood 04/28/2022 11:3 0 AM EDT 04/28/2022 10:22 PM EDT [facility] Historical Provider LAB BLOOD ORDERABLES Fi nal Result [facility] [address] [place] [address], [facility] [phone] * (ABNORMAL) CMP COMPREHENSIVE METABOLIC PANEL ([facility] BKR DATA CONV) (03/31/2022 11:50 AM EDT) Sodium Level 144 136 - 146 mmol/L 03/31/2022 10:31 PM EDT Potassium Level 3.3(L) 3.5 - 5.1 mmol/L 03/31/2022 10:31 PM EDT Chloride Level 111 102 - 112 mmol/L 03/31/2022 10:31 PM EDT Carbon Dioxide Level 28 21 - 32 mmol/L 03/31/2022 10:31 PM EDT Anion Gap 8(L) 9 - 20 03/31/2022 10:31 PM EDT Calcium Level 8.2(L) 8.5 - 10.1 mg/dL 03/31/2022 10:31 PM EDT Glucose Level 89 74 - 106 mg/dL 03/31/2022 10:31 PM EDT Comment: [employer] has become aware of sulfasalazine and sulfapyridine [...] Urea Nitrogen 9 7 - 22 mg/dL 03/31/2022 10:31 PM EDT Creatinine Level 0.96 0.55 - 1.02 mg/dL 03/31/2022 10:31 PM EDT Bun/Creatinine 9.4 8.0 - 20.0 03/31/2022 10:31 PM EDT Albumin Level 3.3(L) 3.4 - 5.0 Gram/dL 03/31/2022 10:31 PM EDT Protein, Total 6.8 6.4 - 8.2 Gram/dL 03/31/2022 10:31 PM EDT A/G Ratio 0.9(L) 1.1 - 2.5 03/31/2022 10:31 PM EDT Alk Phos 49 27 - 136 Units/Lit er 03/31/2022 10:31 PM EDT ALT 17 12 - 78 Units/Lit er 03/31/2022 10:31 PM EDT Comment: [employer] has become aware of sulfasalazine and sulfapyridine [...] occur prior to administration of the drug. AST 14 5 - 37 Units/Lit er 03/31/2022 10:31 PM EDT Comment: [employer] has become aware of sulfasalazine and sulfapyridine [...] occur prior to administration of the drug. Bilirubin, Total 0.4 0.2 - 1.3 mg/dL 03/31/2022 10:31 PM EDT Comment: Total bilirubin results may be falsely elevated in patients undergoing treatment with eltrombopag (Promacta). Results should be correlated to clinical symptomology and additional laboratory testing including other markers for liver function, e.g., alanine aminotransferase, aspartate aminotransferase, alkaline phosphatase, and/or lactate dehydrogenase. Globulin 3.5 1.5 - 4.5 Gram/dL 03/31/2022 10:31 PM EDT eGFR >60 >=60 mL/min/1. 73m2 03/31/2022 10:31 PM EDT Comment: GFR <60 suggests chronic kidney disease, if found over 3 month period. GFR <15 indicates renal failure. eGFR NonAfrican 59(L) >=60 mL/min/1. 73m2 03/31/2022 10:31 PM EDT Comment: GFR <60 suggests chronic kidney disease, if found over 3 month period. GFR <15 indicates renal failure. Blood 03/31/2022 11:5 0 AM EDT 03/31/2022 10:14 PM EDT [facility] Historical Provider LAB BLOOD ORDERABLES Fi nal Result Performing Organization Address City/State/[facility] Co de Phone Number [facility] [address] [phone] documented in this encounter Visit Diagnoses Not on filedocumented in this encounter
--- OUTSIDE RECORDS SUMMARY | 2024-08-03 17:05 | XMS_ITS | Encounter Summary ---
Author Organization [employer] Address [address] [place] [address] Care Team Providers Care Painter Mirror Name Role Phone Unavailable Primary Care Provider Unavailabl e Encounter Details Date Type Department Care Team (Late st Contact Info) Description 07/17/2022 Orders Only [facility] [address] [place] [phone] Frank Castanon, PharmD BCPS Social History Tobacco [...]
--- OUTSIDE RECORDS SUMMARY | 2024-08-03 17:05 | XMS_ITS | Encounter Summary ---
Author Organization [employer] Address [address] [place] [address] Care Team Providers Care Cottage Supervisor Name Role Phone Unavailable Primary Care Provider Unavailabl e Reason for Visit * Reason Comments Follow-up No new concerns this morning Injections Encounter Details Date Type Department Care Team (Late st Contact Info) Description 11/03/2022 9:15 AM EST Office Visit [facility] [employer] [address] [employer] [facility] [address] [place] [address] Raimundo Pacheco MD [facility] [facility] [address] [place] [address] Multiple myeloma without remission (HCC) [...] Sign Reading Time Taken Comments Blood Pressure 165/82 11/03/2022 9:14 AM EST Pulse 72 11/03/2022 9:14 AM EST Temperature - - Respiratory Rate 18 11/03/2022 9:14 AM EST Oxygen Saturation 97% 11/03/2022 9:14 AM EST Inhaled Oxygen Concentration - - Weight - - Height - - Body Mass Index - - documented in this encounter Progress Notes * Raimundo Pacheco MD - 11/03/2022 9:15 AM EST Chief Complaint: History of Present Illness: Francy Bailey is a 62 y.o. female who presents today for follow up of multiple myeloma. She denies new bone pain. She has had some fatigue. No weight loss. She will be starting her new regimen today Past Medical History: Diagnosis Date ??? [...] Summary Treatment goal Palliative Plan Name [facility] Multiple Myeloma - daratumumab (Darzalex) IV d1,8,15,22 fb D1,15 fb d1 + pomalidomide(Pomalyst) PO d1-21 every 28 days Status Active Start Date 11/03/2022 End Date 09/07/2023 (Planned) Provider Raimundo Pacheco MD Chemotherapy pomalidomide 4 mg Cap, 4 mg, Oral, Daily, 1 of 1 cycle, Start date: --, End date: -- [id number] (DARZALEX FASPRO) 1,800 mg-30,000 unit/15 mL subcutaneous injection 1,800 mg, 1,800 mg, Subcutaneous, Once, 1 of 12 cycles Administration: 1,800 mg (11/03/2022) Allergies: Ampicillin, Codeine, Indomethacin, Morphine, and Penicillin [...] systems reviewed and are negative. Vitals: Vitals: 11/03/22 0914 BP: (!) 165/82 Pulse: 72 Resp: 18 SpO2: 97% Physical Exam: Physical Exam Vitals reviewed. Constitutional: Appearance: Normal appearance. HENT: Head: Normocephalic. Eyes: Pupils: Pupils are equal, round, and reactive to light. Cardiovascular: Rate and Rhythm: Normal rate and regular rhythm. Pulmonary: Effort: Pulmonary effort is normal. Breath sounds: Normal breath sounds. Abdominal: General: Abdomen is flat. Bowel sounds are normal. Palpations: Abdomen is soft. Musculoskeletal: General: Normal range of motion. Cervical back: Normal range of motion. Neurological: General: No focal deficit present. Mental Status: She is alert. Relevant Results: Orders Only on 11/03/2022 Component Date Value [...] 11/03/2022 17 5 - 37 U/L Final [employer] has become aware of sulfasalazine and sulfapyridine [...] 11/03/2022 18 12 - 78 U/L Final [employer] has become aware of sulfasalazine and sulfapyridine [...] 11/03/2022 0.03 0.00 - 0.20 K/??L Final Clinical Support on 10/19/2022 Component Date Value [...] 0.02 0.00 - 0.20 K/??L Final ??? [place] Qnt Free Light Chains 10/19/2022 17.44 3.30 - 19.40 mg/L Final INTERPRETIVE INFORMATION: [place] Qnt Free Light Chains Undetected antigen excess is a rare event but cannot be excluded. Free light chain results should always be interpreted in conjunction with other clinical and laboratory findings. ??? Lambda Qnt Free Light Chains 10/19/2022 21.39 5.71 - 26.30 mg/L Final INTERPRETIVE INFORMATION: Lambda Qnt Free Light Chains Undetected antigen excess is a rare event but cannot be excluded. Free light chain results should always be interpreted in conjunction with other clinical and laboratory findings. ??? [place]/Lambda Free Light Chain Ratio 10/19/2022 0.82 0.26 - 1.65 Final Performed By: [place] [address] Group Therapy Counselor: Parker Rangel MD, PhD ??? Total Protein, Serum 10/19/2022 7.5 6.3 - 8.2 g/dL Final ??? Albumin 10/19/2022 3.50 (A) 3.75 - 5.01 g/dL Final ??? Alpha 1 Globulin 10/19/2022 0.31 0.19 - 0.46 g/dL Final ??? Alpha 2 Globulin 10/19/2022 0.80 0.48 - 1.05 g/dL Final ??? Beta Globulin 10/19/2022 2.22 (A) 0.48 - 1.10 g/dL Final ??? Gamma 10/19/2022 0.68 0.62 - 1.51 g/dL Final ??? Immunofixation Reflex 10/19/2022 RALPH Done Final ??? Monoclonal Protein 10/19/2022 1.85 g/dL Final ??? SPEP/RALPH Interpretation 10/19/2022 See Note Final Monoclonal spike in the beta region. The quantitation may include complement and/or transferrin components. Measurement of total Immunoglobulin (IgA, IgG, or IgM) can be used for the quantitation of the monoclonal spike instead. RALPH gel pattern shows an IgA type lambda monoclonal protein. ??? EER Serum Protein Electrophoresis * 10/19/2022 See Note Final Authorized individuals can access the [employer] Enhanced Report using the following link: [email or web address] Performed By: [facility] [address] [place], [place] [id number] Group Therapy Counselor: Parker Rangel MD, PhD ??? Sodium 10/19/2022 146 136 - 146 [...] 10/19/2022 4.92 4.36 - 5.20 mg/dL Final ??? Immunofix Electrophoresis Bill 10/19/2022 Billed Final Performed By: [facility] [address] [place] [address] Group Therapy Counselor: Parker Rangel MD, PhD ??? Immunoglobulin G 10/19/2022 722 (A) 768 - 1632 mg/dL Final REFERENCE INTERVAL: Immunoglobulin G Access complete set of age- and/or gender-specific reference intervals for this test in the [facility] Test Directory (Mixamo). Performed By: [facility] [address] [place] [address] Group Therapy Counselor: Parker Rangel MD, PhD ??? Immunoglobulin M 10/19/2022 26 (A) 35 - 263 mg/dL Final REFERENCE INTERVAL: Immunoglobulin M Access complete set of age- and/or gender-specific reference intervals for this test in the [facility] Test Directory ([facility]). Performed By: [facility] [address] [place], [place] [id number] Group Therapy Counselor: Parker Rangel MD, PhD ??? Immunoglobulin A 10/19/2022 1384 (A) 68 - 408 mg/dL Final REFERENCE INTERVAL: Immunoglobulin A Access complete set of age- and/or gender-specific reference intervals for this test in the [facility] Test Directory ([facility]). Performed By: [facility] [address] [place] [address] Group Therapy Counselor: Parker Rangel MD, PhD No results found. Cancer Staging No matching staging information was found for the patient. Plan: She recieves darzalex 1800 mg subQ today premedicated by dexamthasone 20 mg po and tylenol 650 mg along with benedryl 25 po. She started pomalidomide 3 mg today also. She will take dex 4mg tomorrow and . I will see her in one week. Signed: Electronically signed by RAIMUNDO PACHECO MD 11/03/22 5:38 PM EST No primary care provider on file. TIC ENGINEER documented in this encounter Plan of Treatment Not on file documented as of this encounter Visit Diagnoses Diagnosis Multiple myeloma without remission (HCC)- Primary documented in this encounter
--- OUTSIDE RECORDS SUMMARY | 2024-08-03 17:05 | XMS_ITS | Encounter Summary ---
Author Organization [employer] Address [address] [place] [address] Care Team Providers Care Workday Senior Associate Name Role Phone Unavailable Primary Care Provider Unavailabl e Reason for Visit * Reason Onset Date Comments Revlimid script issues 07/28/2022 Encounter Details Date Type Department Care Team (Late st Contact Info) Description 07/28/2022 Telephone [facility] - [facility] [address] [place] [phone] Nicki Thurston, RN Revlimid script issues Social History Tobacco Use Types Packs/Day Years Used Date Smoking Tobacco: Never Assessed Comments Unknown Sex and Gender Information Value Date Recorded Sex Assigned at Not on file Legal Sex Female 10:12 AM CDT Gender Identity Not on file Sexual Orientation Not on file documented as of this encounter Miscellaneous Notes * Telephone Encounter - Ava Cruz - 07/28/2022 9:19 AM EST [id number] faxed over a free drug sh[place]nee for patient. I faxed that back to [employer] yesterday. As soon as they get that approved she will get the rx from the drug company. I will call the patient to let her know and [employer] should call her as well. KLER * Telephone Encounter - Nicki Thurston RN - 07/28/2022 8:55 AM EST Patient called into RN line stating that she is due to start Revlimid 5mg tomorrow but she just found out that she doesn't have any insurance. She hasn't received the pills from the pharmacy either. She is not sure what to do. Madhuri, can you look into this? KLER documented in this encounter Plan of Treatment Not on file documented as of this encounter Visit Diagnoses Not on filedocumented in this encounter
--- OUTSIDE RECORDS SUMMARY | 2024-08-03 17:05 | XMS_ITS | Encounter Summary ---
Author Organization [employer] Address [address] [place] [address] Care Team Providers Care Loans Officer Name Role Phone Unavailable Primary Care Provider Unavailabl e Encounter Details Date Type Department Care Team (Late st Contact Info) Description 10/22/2022 Orders Only [facility] - [address] [facility] [address] [place] [address] Caleb Pacheco MD [address] [facility] [address] [place] [address] Social History Tobacco Use Types [...] as of this encounter Progress Notes * Cristi Frost - 10/22/2022 2:55 PM ESTSummary: Estimate Oncology No Est. 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
--- OUTSIDE RECORDS SUMMARY | 2024-08-03 17:05 | XMS_ITS | Encounter Summary ---
Author Organization [employer] Address [address] [place] [address] Care Team Providers Care Sheet Cutting Operator Name Role Phone Unavailable Primary Care Provider Unavailabl e Encounter Details Date Type Department Care Team (Latest Contact Info) Description 11/03/2022 9:00 AM EST Clinical Support [place] [facility] - [facility] [address] [facility] [address] [place] [address] Caleb Pacheco MD [address] [facility] [address] [place] [address] Multiple myeloma without remission (HCC) [...] - Inhaled Oxygen Concentration - - Weight 116.8 kg (257 lb 6.4 oz) 11/03/2022 9:08 AM EST Height - - Body Mass Index 39.7 06/16/2022 9:00 AM EDT documented in this encounter Plan of Treatment Not on file documented as of this encounter Visit Diagnoses Diagnosis Multiple myeloma without remission (HCC) documented in this encounter
--- OUTSIDE RECORDS SUMMARY | 2024-08-03 17:05 | XMS_ITS | Encounter Summary ---
Author Organization [employer] Address [address] [place] [address] Care Team Providers Care Embedded Linux Engineer Name Role Phone Unavailable Primary Care Provider Unavailabl e Encounter Details Date Type Department Care Team (Late st Contact Info) Description 09/17/2022 Orders Only [facility] - [employer] [facility] [employer] [address] [facility] [address] [place] [address] Caleb Pacheco MD [address] [facility] [address] [place] [address] Multiple myeloma without remission (HCC) [...]
--- OUTSIDE RECORDS SUMMARY | 2024-08-03 17:05 | XMS_ITS | Encounter Summary ---
Author Organization [employer] Address [address] [place] [address] Care Team Providers Care Food And Beverage Lead Name Role Phone Unavailable Primary Care Provider Unavailabl e Encounter Details Date Type Department Care Team (Late st Contact Info) Description 07/20/2022 Orders Only [place] [facility] - [facility] [address] [place] [address] Caleb Pacheco MD [address] [facility] [address] [place] [address] Multiple myeloma without remission (HCC) Social History Tobacco Use Types Packs/Day Years Used Date Smoking Tobacco: Never Assessed Comments Unknown Sex and Gender Information Value Date Recorded Sex Assigned at Not on file Legal Sex Female 10:12 AM CDT Gender Identity Not on file Sexual Orientation Not on file documented as of this encounter Progress Notes * Malu Langley - 07/20/2022 11:33 AM EDT MRI 08.10.2022 3:00, Jenny Childs documented in this encounter Plan of Treatment Not on file documented as of this encounter Procedures Procedure Name Priority Date/Time Associated Diagnosis Comments IMMUNOFIX ELECTROPHORESIS BILL(SENDOUT) Routine 07/20/2022 11:43 AM EDT Multiple myeloma without remission (HCC) CBC W/ AUTO DIFF Routine 07/20/2022 11:4 3 AM EDT Multiple myeloma without remission (HCC) PROTEIN ELECTROPHORESIS W RFLX TO RALPH(SENDOUT) Routine 07/20/2022 11:43 AM EDT Multiple myeloma without remission (HCC) KAPPA-LAMBDA QUANT FLC WITH RATIO(SENDOUT) Routine 07/20/2022 11:43 AM EDT Multiple myeloma without remission (HCC) IMMUNOGLOBULIN M(SENDOUT) Routine 07/20/2022 11:43 AM EDT Multiple myeloma without remission (HCC) IMMUNOGLOBULIN G(SENDOUT) Routine 07/20/2022 11:43 AM EDT Multiple myeloma without remission (HCC) IMMUNOGLOBULIN A(SENDOUT) Routine 07/20/2022 11:43 AM EDT Multiple myeloma without remission (HCC) HEPATIC FUNCTION PANEL Routine 11:43 AM EDT Multiple myeloma without remission (HCC) BASIC METABOLIC PANEL Routine 07/20/2022 11:43 AM EDT Multiple myeloma without remission (HCC) documented in this encounter Results * (ABNORMAL) Immunoglobulin A(SENDOUT) (07/20/2022 11:43 AM EDT) Pathologist [facility] Immunoglobulin A 1106(H) 68 - 408 mg/dL 07/25/2022 1:26 AM EDT [employer] Comment: REFERENCE INTERVAL: Immunoglobulin A Access complete set of age- and/or gender-specific reference intervals for this test in the [facility] Test Directory (LoopPay). Performed By: [facility] [address] [place] [id number] Glass Novelty Maker: Parker Rangel MD, PhD Blood Venipuncture / Unknown 07/20/2022 11:43 AM EDT 07/20/2022 11:46 AM EDT Caleb Pacheco MD LAB BLOOD ORDERABLES Final Res ult Performing Organization Address [facility] Co de Phone Number [facility] [address] [phone] * Immunoglobulin M(SENDOUT) (07/20/2022 11:43 AM EDT) Immunoglobulin M 36 35 - 263 mg/dL 07/25/2022 1:26 AM EDT [employer] Comment: REFERENCE INTERVAL: Immunoglobulin M Access complete set of age- and/or gender-specific reference intervals for this test in the [facility] Test Directory (LoopPay). Performed By: [facility] [address] [place] [address] Glass Novelty Maker: Parker Rangel MD, PhD Blood Venipuncture / Unknown 07/20/2022 11:43 AM EDT 07/20/2022 11:46 AM EDT Caleb Pacheco MD LAB BLOOD ORDERABLES Final Res ult Performing Organization Address [facility] de Phone Number [address] [phone] * (ABNORMAL) Immunoglobulin G(SENDOUT) (07/20/2022 11:43 AM EDT) Immunoglobulin G 726(L) 768 - 1632 mg/dL 07/25/2022 1:26 AM EDT [employer] Comment: REFERENCE INTERVAL: Immunoglobulin G Access complete set of age- and/or gender-specific reference intervals for this test in the [facility] Test [facility] ([employer]Pay). Performed By: [facility] [address] [place] [address] Glass Novelty Maker: Parker Rangel MD, PhD Blood Venipuncture / Unknown 07/20/2022 11:43 AM EDT 07/20/2022 11:46 AM EDT Caleb Pacheco MD LAB BLOOD ORDERABLES Final Res ult Performing Organization Address [facility] Co de Phone Number [facility] [address] [place] [address], [facility] [phone] * Immunofix Electrophoresis Bill(SENDOUT) (07/20/2022 11:43 AM EDT) [facility] Immunofix Electrophoresis Bill Billed 07/25/2022 1:24 AM EDT [employer] Comment: Performed By: [facility] [address] [place] [address] Glass Novelty Maker: Parker Rangel MD, PhD Blood Venipuncture / Unknown 07/20/2022 11:43 AM EDT 07/20/2022 11:46 AM EDT Caleb Pacheco MD LAB BLOOD ORDERABLES Final Res ult Performing Organization Address [facility] [place] [address], [facility] [phone] * Stanley-Lambda Quant FLC with Ratio (07/20/2022 11:43 AM EDT) [facility] Stanley Qnt Free Light Chains 17.77 3.30 - 19.40 mg/L 07/23/2022 6:00 AM EDT [employer] Comment: INTERPRETIVE INFORMATION: Stanley Qnt Free Light Chains Undetected antigen excess is a rare event but cannot be excluded. Free light chain results should always be interpreted in conjunction with other clinical and laboratory findings. Lambda Qnt Free Light Chains 21.27 5.71 - 26.30 mg/L 07/23/2022 6:00 AM EDT [employer] Comment: INTERPRETIVE INFORMATION: Lambda Qnt Free Light Chains Undetected antigen excess is a rare event but cannot be excluded. Free light chain results should always be interpreted in conjunction with other clinical and laboratory findings. Stanley/Lambda Free Light Chain Ratio 0.84 0.26 - 1.65 07/23/2022 6:00 AM EDT [facility] Comment: Performed By: [facility] [address] [place] [address] Glass Novelty Maker: Parker Rangel MD, PhD Blood Venipuncture / Unknown 07/20/2022 11:43 AM EDT 07/20/2022 11:46 AM EDT us Caleb Pacheco MD LAB BLOOD ORDERABLES Final Res ult [facility] [address] [place] [phone], [facility] [phone] * (ABNORMAL) Protein Electrophoresis w Rflx to RALPH (07/20/2022 11:43 AM EDT) Total Protein, Serum 7.4 6.3 - 8.2 g/dL 07/25/2022 1:24 AM EDT [facility] Albumin 3.41(L) 3.75 - 5.01 g/dL 07/25/2022 1:24 AM EDT [facility] Alpha 1 Globulin 0.34 0.19 - 0.46 g/dL 07/25/2022 1:24 AM EDT [facility] Alpha 2 Globulin 0.89 0.48 - 1.05 g/dL 07/25/2022 1:24 AM EDT [facility] Beta Globulin 1.95(H) 0.48 - 1.10 g/dL 07/25/2022 1:24 AM EDT [facility] Gamma 0.81 0.62 - 1.51 g/dL 07/25/2022 1:24 AM EDT [facility] Immunofixation Reflex RALPH Done 07/25/2022 1:24 AM EDT [facility] Monoclonal Protein 1.53 g/dL 2021 1:24 AM EDT [facility] SPEP/RALPH Interpretation See Note 07/25/2022 1:24 AM EDT [facility] Comment: M-spike in the beta region. ??The monoclonal protein peak accounts for 1.53 g/dL of the total 1.95 g/dL of protein in the beta region. ??This quantitation may include complement and/or transferrin components. ??RALPH gel pattern shows an IgA type lambda monoclonal protein. EER Serum Protein Electrophoresis Reflex See Note 07/25/2022 1:24 AM EDT [facility] Comment: Authorized individuals can access the [facility] Enhanced Report using the following link: [email or web address] Performed By: [facility] [address] [place] [address] Glass Novelty Maker: Parker Rangel MD, PhD Blood Venipuncture / Unknown 07/20/2022 11:43 AM EDT 07/20/2022 11:46 AM EDT us Caleb Pacheco MD LAB BLOOD ORDERABLES Final Res ult [employer] [address] [place] [address], [facility] [phone] * Basic Metabolic Panel (07/20/2022 11:43 AM EDT) Sodium 142 136 - 146 meq/L 07/20/2022 6:53 PM EDT [facility] Potassium 3.5 3.5 - 5.1 meq/L 07/20/2022 6:53 PM EDT [facility] Chloride 106 102 - 112 meq/L 07/20/2022 6:53 PM EDT [facility] CO2 28 21 - 32 meq/L 07/20/2022 6:53 PM EDT [facility] Anion Gap 12 9 - 20 07/20/2022 6:53 PM EDT [facility] BUN 11 7 - 22 mg/dL 07/20/2022 6:53 PM EDT [facility] Creatinine 0.97 0.55 - 1.02 mg/dL 07/20/2022 6:53 PM EDT [facility] BUN/Creatinine 11 8 - 20 07/20/2022 6:53 PM EDT [facility] Glucose 91 74 - 106 mg/dL 07/20/2022 6:53 PM EDT [facility] Calcium 9.7 8.5 - 10.1 mg/dL 07/20/2022 6:53 PM EDT [facility] Osmolality Calc 282.1 6:53 PM EDT [facility] eGFR Non (mL/min/1.73m2) >60 >=60 mL/min/1.7 3m2 07/20/2022 6:53 PM EDT [facility] eGFR (mL/min/1.73m2) >60 >=60 mL/min/1.7 3m2 07/20/2022 6:53 PM EDT [facility] Comment:eGFR of <60 suggests chronic kidney disease if found over a 3 month period of time. eGFR <15 indicates renal failure. Blood Venipuncture / Unknown 07/20/2022 11:43 AM EDT 07/20/2022 11:46 AM EDT us Caleb Pacheco MD LAB BLOOD ORDERABLES Final Res ult [facility] [address] [phone] * (ABNORMAL) CBC w/ Auto Diff (07/20/2022 11:43 AM EDT) WBC 2.6(L) 4.5 - 12.5 K/??L 07/20/2022 11:54 AM EDT [facility] RBC 3.71(L) 4.00 - 5.25 M/??L 07/20/2022 11:54 AM EDT [facility] Hemoglobin 12.4 12.0 - 16.0 GM/DL 07/20/2022 11:54 AM EDT [facility] Hematocrit 39.1 36.0 - 46.0 % 07/20/2022 11:54 AM EDT [facility] MCV 105(H) 80 - 100 fL 07/20/2022 11:54 AM EDT [facility] MCH 33.4 26.0 - 34.0 pg 07/20/2022 11:54 AM EDT [facility] MCHC 31.7 31.0 - 37.0 GM/DL 07/20/2022 11:54 AM EDT [facility] RDW 12.9 12.0 - 16.8 % 07/20/2022 11:54 AM EDT [facility] Platelets 125(L) 140 - 440 K/CU MM 07/20/2022 11:54 AM EDT [facility] MPV 9.2 7.4 - 10.4 fL 07/20/2022 11:54 AM EDT [facility] % Neutros 47 45 - 80 % 07/20/2022 11:54 AM EDT [facility] % Lymphs 36 15 - 45 % 07/20/2022 11:54 AM EDT [facility] % Monos 13(H) 0 - 10 % 07/20/2022 11:54 AM EDT [facility] % Eos 4 0 - 5 % 07/20/2022 11:54 AM EDT [facility] % Baso 0 0 - 3 % 07/20/2022 11:54 AM EDT [facility] # Neutros 1.24(L) 2.00 - 8.80 K/??L 07/20/2022 11:54 AM EDT [facility] # Lymphs 0.95 0.70 - 5.50 K/??L 07/20/2022 11:54 AM EDT [facility] # Monos 0.34 0.00 - 1.70 K/??L 07/20/2022 11:54 AM EDT [facility] # Eos 0.10 0.00 - 0.80 K/??L 07/20/2022 11:54 AM EDT [facility] # Baso 0.01 0.00 - 0.20 K/??L 07/20/2022 11:54 AM EDT [facility] Blood Venipuncture / Unknown 07/20/2022 11:43 AM EDT 07/20/2022 11:46 AM EDT Narrative [facility] - 07/20/2022 11:54 AM EDT When [...] [facility] [address] [place] [address], [facility] [phone] * (ABNORMAL) Hepatic function panel (07/20/2022 11:43 AM EDT) Protein, Total 7.4 6.4 - 8.2 gm/dL 07/20/2022 6:53 PM EDT [facility] Albumin 3.3(L) 3.4 - 5.0 g/dL 07/20/2022 6:53 PM T [facility] Total Bilirubin 0.8 0.2 - 1.3 mg/dL 07/20/2022 6:53 PM T [facility] Bilirubin, Direct 0.2 0.0 - 0.2 mg/dL 07/20/2022 6:53 PM [facility] Alkaline Phosphatase 49 27 - 136 U/L 07/20/2022 6:53 PM T [facility] Globulin 4.1 1.5 - 4.5 g/dL 07/20/2022 6:53 PM T [facility] A/G Ratio 0.8(L) 1.1 - 2.5 07/20/2022 6:53 PM EDT [facility] AST 14 5 - 37 U/L 07/20/2022 6:53 PM T [facility] Comment:[employer] has become aware of sulfasalazine and sulfapyridine [...] drug. ALT 18 12 - 78 U/L 07/20/2022 6:53 PM EDT [facility] Comment:[employer] has become aware of sulfasalazine and sulfapyridine [...] VENOUS STRUCTURE / Unknown Venipuncture / Unknown 07/20/2022 11:43 AM EDT 07/20/2022 11:46 AM EDT us Caleb Pacheco MD LAB BLOOD ORDERABLES Final Res ult [facility] [address] [phone] documented in this encounter Visit Diagnoses Diagnosis Multiple myeloma without remission (HCC) documented in this encounter
--- OUTSIDE RECORDS SUMMARY | 2024-08-03 17:05 | XMS_ITS | Encounter Summary ---
Author Organization [employer] Address [address] [place] [address] Care Team Providers Care Email Engineer Name Role Phone Unavailable Primary Care Provider Unavailabl e Encounter Details Date Type Department Care Team (Late st Contact Info) Description 10/20/2022 Orders Only [place] [facility] - [facility] [address] [place] [address] Caleb Pacheco MD [address] [facility] [address] [place] [address] Social History Tobacco Use Types [...]
--- OUTSIDE RECORDS SUMMARY | 2024-08-03 17:05 | XMS_ITS | Encounter Summary ---
Author Organization [employer] Address [address] [place] [address] Care Team Providers Care Nanofabrication Specialist Name Role Phone Unavailable Primary Care Provider Unavailabl e Encounter Details Date Type Department Care Team (Late st Contact Info) Description 10/15/2022 Orders Only [place] [facility] - [facility] [address] [place] [address] Frank Castanon, PharmD BCPS Social History [...]
--- OUTSIDE RECORDS SUMMARY | 2024-08-03 17:05 | XMS_ITS | Encounter Summary ---
Author Organization [employer] Address [address] [place] [address] Care Team Providers Care Anodizing Line Operator Name Role Phone Unavailable Primary Care Provider Unavailabl e Encounter Details Date Type Department Care Team (Late st Contact Info) Description 07/21/2022 Orders Only [place] [facility] - [employer] [address] [place] [phone] Jenny Traore RN Social History Tobacco [...]
--- OUTSIDE RECORDS SUMMARY | 2024-08-03 17:05 | XMS_ITS | Encounter Summary ---
Author Organization [employer] Address [address] [place] [address] Care Team Providers Care Sewing Techniques Demonstrator Name Role Phone Unavailable Primary Care Provider Unavailabl e Reason for Visit * Reason Comments Injections Xgeva * Episode Based Medication (Routine) - Closed Specialty Diagnoses / Procedures Referred By Ana Paula anne Referred To Contact Diagnoses Multiple myeloma without remission (HCC) Procedures DENOSUMAB INJECTION Xgeva/ [id number] Caleb Pacheco MD [address] [facility] [address] [place] [address] Phone: tel: fax: [facility] - [employer] [facility] [employer] [address] [place] [phone] Phone: tel: fax: Referral ID Status Reason Start Date Expiration Date Visits Re quested Visits Authorized [id number] Closed 06/16/2022 05/14/2024 99 100 Encounter Details Date Type Department Care Team (Late st Contact Info) Description 09/18/2022 1:00 PM EST Infusion [facility] - [employer] [employer] [address] [place] [address] Multiple myeloma without remission (HCC) [...] Sign Reading Time Taken Comments Blood Pressure 118/68 09/18/2022 1:38 PM EST Pulse 60 09/18/2022 1:38 PM EST Temperature - - Respiratory Rate 20 09/18/2022 1:38 PM EST Oxygen Saturation 97% 09/18/2022 1:38 PM EST Inhaled Oxygen Concentration - - Weight - - Height - - Body Mass Index - - documented in this encounter Progress Notes * Jennifer Ibarra RN - 09/18/2022 1:00 PM EST Tolerated well. Dr. Pacheco notified of pain issues and he sent in Oxycodone. Attempted to call pt. And no ability to leave message. Called Sister Amina Baxter, , For appt/ pain med sent in. MENT MASON documented in this encounter Plan of Treatment Not on file documented as of this encounter Visit Diagnoses Diagnosis Multiple myeloma without remission (HCC)- Primary documented in this encounter Administered Medications Inactive Administered Medications - up to 3 most recent administrations Medication Order MAR Action Action Date Dose Rate Site denosumab (XGEVA) subcutaneous injection 120 mg 120 mg Once, subcutaneous, On Wed09/18/22 at 1400, For 1 dose, * Refrigerated * Bring to room temperature 15 to 30 minutes prior to administration., This medication is restricted to use in outpatients only. Is this patient in outpatient status? YesIndications:Multiple myeloma without remission (HCC) Given 09/18/2022 1:48 PM EST 120 mg Right Arm documented in this encounter
--- OUTSIDE RECORDS SUMMARY | 2024-08-03 17:05 | XMS_ITS | Encounter Summary ---
Author Organization [employer] Address [address] [place] [address] Care Team Providers Care Copper Plate Lithographer Name Role Phone Unavailable Primary Care Provider Unavailabl e Encounter Details Date Type Department Care Team (Late st Contact Info) Description 09/16/2022 Orders Only [place] [facility] - [employer] [address] [place] [phone] René Ku, IsaccD Social History Tobacco Use Types Packs/Day Years [...]
--- OUTSIDE RECORDS SUMMARY | 2024-08-03 17:06 | XMS_ITS | Encounter Summary ---
Author Organization [employer] Address [address] [place] [address] Care Team Providers Care Parts Salvager Name Role Phone Unavailable Primary Care Provider Unavailabl e Encounter Details Date Type Department Care Team (Late st Contact Info) Description 11/25/2021 Historic Encounter [address] [address] ProviderYoli Historical Social History Tobacco [...] Comments FREE LIGHT CHAINS GAMMOPATHY PNL, SENDOUT ([facility] DATA CONV) Routine 11/25/2021 11:26 AM EST CBC W/ AUTO DIFF ([facility] DATA CONV) Routine 11/25/2021 11:26 AM EST AUTOMATED DIFFERENTIAL ([facility]K DATA CONV) Routine 11/25/2021 11:26 AM EST ONOCOLOGY CHEMISTRY PANEL Routine 11/25/2021 11:26 AM EST documented in this encounter Results * (ABNORMAL) FREE LIGHT CHAINS GAMMOPATHY PNL, SENDOUT ([facility] DATA CONV) (11/25/2021 11:26 AM EST) [place] FLC 19.9(H) 3.3 - 19.4 11/28/2021 4:07 AM EST Lambda FLC 14.2 5.7 - 26.3 11/28/2021 4:07 AM EST [place]/Lambda FLC Ratio 1.40 0.26 - 1.65 11/28/2021 4:07 AM EST Comment: Performed At: [facility] [id number] Odin Stevens PhD Ph:[phone] Protein, Total 6.3 6.0 - 8.5 g/dL 11/28/2021 4:07 AM EST Albumin, Serum 3.5 2.9 - 4.4 g/dL 11/28/2021 4:07 AM EST [facility]. Interp. Comment(A) 2021 4:07 AM EST Comment: Immunofixation shows IgA monoclonal protein with lambda light chain specificity. SPE Alpha1 Globulin 0.2 0.0 - 0.4 g/dL 11/28/2021 4:07 AM EST SPE Alpha 2 Globulin 0.7 0.4 - 1.0 g/dL 11/28/2021 4:07 AM EST SPE Beta Globulin 1.0 0.7 - 1.3 g/dL 11/28/2021 4:07 AM EST SPE Gamma Globulin 0.9 0.4 - 1.8 g/dL 11/28/2021 4:07 AM EST [facility] Comment: Not Observed g/dL 11/28/2021 4:07 AM EST Comment: Due to the small quantity of monoclonal protein, unable to quantitate the M-spike. SPE Globulin, Total 2.8 2.2 - 3.9 g/dL 11/28/2021 4:07 AM EST SPE A/G Ratio 1.3 0.7 - 1.7 11/28/2021 4:07 AM EST SPE Note Comment 11/28/2021 4:07 AM EST Comment: Protein electrophoresis scan will follow via computer, mail, or asl interpreter delivery. IgA 331 87 - 352 mg/dL 11/28/2021 4:07 AM EST IgG 1018 586 - 1602 mg/dL 11/28/2021 4:07 AM EST IgM 34 26 - 217 mg/dL 11/28/2021 4:07 AM EST Blood 11/25/2021 11:2 6 AM EST 11/25/2021 11:15 PM EST us [facility] Historical Provider LAB BLOOD ORDERABLES Fi nal Result [facility] [address] [phone] * (ABNORMAL) CBC W/ AUTO DIFF ([facility] DATA CONV) (11/25/2021 11:26 AM EST) WBC 2.4(L) 4.5 - 12.5 x10(3)/uL 11/25/2021 4:33 PM EST RBC 3.48(L) 4.50 - 5.20 x10(3)/uL 11/25/2021 4:33 PM EST Hgb 12.0 12.0 - 16.0 g/dL 11/25/2021 4:33 PM EST Hct 37.0 36.0 - 46.0 % 11/25/2021 4:33 PM EST MCV 106.3(H) 80.0 - 100.0 fL 11/25/2021 4:33 PM EST MCH 34.5(H) 26.0 - 34.0 pg 11/25/2021 4:33 PM EST MCHC 32.4 31.0 - 37.0 g/dL 11/25/2021 4:33 PM EST RDW 12.5 12.0 - 16.8 % 11/25/2021 4:33 PM EST Platelet Count 135(L) 140 - 440 x10(3)/uL 11/25/2021 4:33 PM EST MPV 9.0 7.4 - 10.4 fL 11/25/2021 4:33 PM EST Blood 11/25/2021 11:2 6 AM EST 11/25/2021 4:30 PM EST [facility] Historical Provider LAB BLOOD ORDERABLES Fi nal Result [facility] [address] [phone] * (ABNORMAL) Oncology Chemistry Panel (11/25/2021 11:26 AM EST) Glucose ONC 84 70 - 105 mg/dL 11/25/2021 4:36 PM EST Blood Urea Nitrogen Level ONC 12 7 - 18 mg/dL 11/25/2021 4:36 PM EST Sodium Level ONC 142 136 - 146 mmol/L 11/25/2021 4:36 PM EST Potassium ONC 3.6 3.5 - 5.1 mmol/L 11/25/2021 4:36 PM EST Chloride ONC 101 98 - 108 mmol/L 11/25/2021 4:36 PM EST Creatinine Level 1.00 0.60 - 1.10 mg/dL 11/25/2021 4:36 PM EST Total Carbon Dioxide Level ONC 26 22 - 29 mmol/L 11/25/2021 4:36 PM EST Anion Gap 19 9 - 20 11/25/2021 4:36 PM EST Calcium Ionized ONC 4.80 4.36 - 5.20 mg/dL 11/25/2021 4:36 PM EST Bun/Creatinine 12.0 8.0 - 20.0 11/25/2021 4:36 PM EST eGFR NonAfrican 56(L) >=60 mL/min/1.7 3m2 11/25/2021 4:36 PM EST eGFR >60 >=60 mL/min/1.7 3m2 11/25/2021 4:36 PM EST Blood 11/25/2021 11:2 6 AM EST 11/25/2021 4:30 PM EST [facility] Historical Provider LAB BLOOD ORDERABLES Fi nal Result [facility] [address] [phone] * (ABNORMAL) AUTOMATED DIFFERENTIAL ([facility] BKR DATA CONV) (11/25/2021 11:26 AM EST) Neut% 43.7(L) 45.0 - 80.0 % 11/25/2021 4:33 PM EST Lymph% 41.6 15.0 - 45.0 % 11/25/2021 4:33 PM EST Randolph% 10.5(H) 0.0 - 10.0 % 11/25/2021 4:33 PM EST Eos% 3.4 0.0 - 5.0 % 11/25/2021 4:33 PM EST Baso% 0.8 0.0 - 3.0 % 11/25/2021 4:33 PM EST Neut# 1.04(L) 2.00 - 8.80 K/uL 11/25/2021 4:33 PM EST Lymph# 0.99 0.70 - 5.50 K/uL 11/25/2021 4:33 PM EST Randolph# 0.25 0.00 - 1.70 K/uL 11/25/2021 4:33 PM EST Eos# 0.08 0.00 - 0.80 K/uL 11/25/2021 4:33 PM EST Baso# 0.02 0.00 - 0.02 K/uL 11/25/2021 4:33 PM EST Blood 11/25/2021 11:2 6 AM EST 11/25/2021 4:30 PM EST Narrative [facility] - 11/25/2021 4:33 PM EST Added by Discern Expert [facility] Historical Provider LAB BLOOD ORDERABLES Fi nal Result [facility] [address] [place] [address], [facility] [phone] documented in this encounter Visit Diagnoses Not on filedocumented in this encounter
--- OUTSIDE RECORDS SUMMARY | 2024-08-03 17:06 | XMS_ITS | Encounter Summary ---
Author Organization [employer] Address [address] [place] [address] Care Team Providers Care Hoist Mechanic Name Role Phone Clifford Newell Primary Care Provider + [phone] Encounter Details Date Type Department Care Team (Late st Contact Info) Description 04/12/2019 Transcribed Document [facility] Family Medicine [address] [place] [id number] ProviderAntoinette MD [address] [place] [address] Social History Tobacco Use Types Packs/Day Years Used Date Smoking Tobacco: Never Assessed Comments Unknown Sex and Gender Information Value Date Recorded Sex Assigned at Not on file Legal Sex Female 10:12 AM CDT Gender Identity Not on file Sexual Orientation Not on file documented as of this encounter Miscellaneous Notes * Cerner Conversion Note - Antoinette Rae MD - 04/12/2019 8:10 AM CDT [facility] JERAD Peng [address] ASHER BAILEY :1960 Visit Time:04/12/2019 Your Visit Summary Your Care Team Admitting Physician - RAIMUNDO FELIPE MD-ONC Attending Physician - RAIMUNDO FELIPE MD-ONC Referring Physician - RAIMUNDO FELIPE MD-ONC Your Diagnosis Multiple myeloma not having achieved remission, Multiple myeloma not having achieved remission Discharge Vitals Temperature 36.1 ??C Heart Rate (Monitored) 54 Blood Pressure 128/60 What to do next Instructions From Your Care Team no driving today. May shower tomorrow. Discharge Follow Up Instructions: Provide patient with information sheet for home care at time of discharge Follow-Up Appointments Follow Up with RAIMUNDO FELIPE MD-ONC When Within 2 to 3 days Comments for results Where: [address] [place], [place] [id number]- Medications What How Much When Instructions Next Dose albuterol 2 puffs Every 4 Hours as needed for as needed for wheezing prn aspirin 81 Milligram(s) Every Day 04/13 baclofen 10 Milligram(s) Oral Every Day 04/13 busPIRone (BuSpar) 10 Milligram(s) Oral Every Day 04/13 carvedilol (Coreg) 3.125 Milligram(s) Oral Every Day 04/13 cholecalciferol (Vitamin D3) 50,000 International Units Weekly tu citalopram 20 Milligram(s) Oral Every Day 04/13 cyclobenzaprine (Flexeril) 5 Milligram(s) Oral Every Day 04/13 folic acid 1 Milligram(s) Every Day 04/13 gabapentin 100 Milligram(s) Oral Two Times A Day today lisinopril 10 Milligram(s) Oral Every Day 04/13 nitroglycerin 0.4 Milligram(s) SubLINgual Every 5 minutes as needed for as needed for chest pain prn omega-3 polyunsaturated fatty acids (Fish Oil) Oral Two Times A Day today raNITIdine 150 Milligram(s) Oral Two Times A Day today simvastatin 10 Milligram(s) Oral Every Day today Take your medications faithfully. Do NOT skip medication. Do NOT stop taking medications without the direction of a physician. Carry a list of your medications with you at all times, and take this medication list with you to your first follow up visit. Report any side effects. Avoid herbal remedies unless discussed with your physician. As part of your treatment plan, your physician may have prescribed a limited course of a controlled substance. This medication may be given to help people with moderate or severe pain or for other medical conditions, but there are risks involved with treatment. Common side effects may include nausea, constipation, drowsiness, sweating, itching, dry mouth, and rash. More serious side effects may include cognitive and motor impairment, like problems with thinking, concentrating, alertness, and movement (e.g. slowed reflexes), and driving and operating heavy machinery can be dangerous. It is important for you to talk to your physician if you have these side effects or questions. These controlled substances can produce physical dependence and be habit-forming if taken for an extended period of time, which means that the body has gotten used to them and may experience withdrawal symptoms if they are abruptly stopped. Withdrawal symptoms can include runny nose, sweating, goose bumps, diarrhea, abdominal cramping, rapid heartbeat, difficulty sleeping, and nervousness. Please dispose of unused and medications per your retail pharmacy guidance. Allergies ampicillin codeine morphine penicillin Immunizations This Visit No Immunizations Found Education Materials Bone Marrow Aspiration and Bone Marrow Biopsy, Adult, Care After This sheet gives you information about how to care for yourself after your procedure. Your health care provider may also give you more specific instructions. If you have problems or questions, contact your health care provider. What can I expect after the procedure? After the procedure, it is common to have: ??? Mild pain and tenderness. ??? Swelling. ??? Bruising. Follow these instructions at home: ??? Take [id number] or prescription medicines only as told by your health care provider. ??? Do not take baths, swim, or use a hot tub until your health care provider approves. Ask if you can take a shower or have a sponge bath. ??? Follow instructions from your health care provider about how to take care of the puncture site. Make sure you: ? Wash your hands with soap and water before you change your bandage (dressing). If soap and water are not available, use hand electromedical service engineer. ? Change your dressing as told by your health care provider. ??? Check your puncture site every day for signs of infection. Check for: ? More redness, swelling, or pain. ? More fluid or blood. ? Warmth. ? Pus or a bad smell. ??? Return to your normal activities as told by your health care provider. Ask your health care provider what activities are safe for you. ??? Do not drive for 24 hours if you were given a medicine to help you relax (sedative). ??? Keep all follow-up visits as told by your health care provider. This is important. Contact a health care provider if: ??? You have more redness, swelling, or pain around the puncture site. ??? You have more fluid or blood coming from the puncture site. ??? Your puncture site feels warm to the touch. ??? You have pus or a bad smell coming from the puncture site. ??? You have a fever. ??? Your pain is not controlled with medicine. This information is not intended to replace advice given to you by your health care provider. Make sure you discuss any questions you have with your health care provider. Document Released: 03/26/2006 Document Revised: 03/26/2017 Document Reviewed: 02/17/2017 [employer] Interactive Patient Education ?? 2019 [employer] Moderate Conscious Sedation, Adult, Care After These instructions provide you with information about caring for yourself after your procedure. Your health care provider may also give you more specific instructions. Your treatment has been planned according to current medical practices, but problems sometimes occur. Call your health care provider if you have any problems or questions after your procedure. What can I expect after the procedure? After your procedure, it is common: ??? To feel sleepy for several hours. ??? To feel clumsy and have poor balance for several hours. ??? To have poor judgment for several hours. ??? To vomit if you eat too soon. Follow these instructions at home: For at least 24 hours after the procedure: ??? Do not: ? Participate in activities where you could fall or become injured. ? Drive. ? Use heavy machinery. ? Drink alcohol. ? Take sleeping pills or medicines that cause drowsiness. ? Make important decisions or sign legal documents. ? Take care of children on your own. ??? Rest. Eating and drinking ??? Follow the diet recommended by your health care provider. ??? If you vomit: ? Drink water, juice, or soup when you can drink without vomiting. ? Make sure you have little or no nausea before eating solid foods. General instructions ??? Have a responsible adult stay with you until you are awake and alert. ??? Take poqu-dkv-nizbhyn and prescription medicines only as told by your health care provider. ??? If you smoke, do not smoke without supervision. ??? Keep all follow-up visits as told by your health care provider. This is important. Contact a health care provider if: ??? You keep feeling nauseous or you keep vomiting. ??? You feel light-headed. ??? You develop a rash. ??? You have a fever. Get help right away if: ??? You have trouble breathing. This information is not intended to replace advice given to you by your health care provider. Make sure you discuss any questions you have with your health care provider. Document Released: 06/27/2014 Document Revised: 02/08/2017 Document Reviewed: 12/26/2016 [employer] Interactive Patient Education ?? 2019 [employer]. Emergency Awareness and Preventative Care STROKE is an EMERGENCY Every Minute Counts Act FAST and Check for these signs: FACE Does the face look uneven? ARM Does one arm drift down? SPEECH Does their speech sound strange? TIME Call at any sign of stroke Stroke Risk Factors Atrial Fibrillation (irregular heartbeat) Diabetes Family history of stroke Heart Disease Heavy alcohol use High Blood Pressure High Cholesterol Physical inactivity and obesity Smoking Cigarette Smoking The facts are clear, cigarette smoking will shorten your life. Smoking can cause many illnesses along the way. As a healthcare provider, we recommend that you stop smoking. Assistance with quitting is available by contacting 5-598-VIPR-NOW. This is a free resource providing counseling, support, and referral. Or you may contact your personal physician. National Suicide Prevention Lifeline: The National Suicide Prevention Lifeline is a national network of local crisis centers that provides free and confidential emotional support to people in suicidal crisis or emotional distress 24 hours a day, 7 days a week. Don't Wait! Stop a Heart Attack Before it Starts What is a heart attack? A heart attack is damage or to a part of the heart from severely decreased or lack of blood flow to the heart. Over time, arteries can become narrow from the buildup of fat and cholesterol, which is called plaque. The plaque can rupture causing a blood clot to form. When the blood clot forms, the artery can become severely narrowed or completely blocked, causing a heart attack. Heart attack is the leading cause of in the [place]. 85% of muscle damage occurs within the first 2 hours. Delay in the recognition of heart attack symptoms increases the chances of . Know the early symptoms of a heart attack: Nausea Feeling of fullness in chest Jaw Pain Pain that travels down one or both arms Fatigue/being tired Anxiety Back Pain Chest pressure, squeezing, or discomfort Shortness of breath Sweating, or a cold sweat Feeling of impending doom There are unusual signs of a heart attack, too! Women, the elderly, and diabetics may present with atypical symptoms: Fainting/dizziness Weakness Confusion Risk Factors for a Heart Attack Some heart disease risk factors, such as age and family history, cannot be changed. Others, like smoking and lack of exercise, can be changed. Smoking High Cholesterol High Blood Pressure Family History Obesity Age Gender (Males are at higher risk) Lack of Exercise Diabetes Diet Stress Excessive Alcohol Intake If you or someone you know is experiencing the signs and symptoms of a heart attack, DON???T DELAY. Call immediately and seek help. If someone collapses, perform CPR! Do not attempt to drive if you are having symptoms of heart attack. Hands-Only CPR Why Hands-Only CPR? Hands-Only CPR has been shown to be as effective as conventional CPR for cardiac arrests that occur outside of a hospital. Survival depends on immediately receiving CPR from someone nearby. How do you perform Hands-Only CPR? There are two easy steps: Call if you see a teen or adult collapse Push hard and fast in the center of the chest at a beat of 100 beats per minute. Save a life! 4 WAYS TO GET AHEAD OF SEPSIS SEPSIS is a MEDICAL EMERGENCY. Time matters! Infections put you and your family at risk for a life-threatening condition called sepsis. Sepsis is the body's extreme response to an infection. It is life-threatening, and without timely treatment, sepsis can rapidly lead to tissue damage, organ failure, and . Sepsis happens when an infection you already have-in your skin, lungs, urinary tract or somewhere else-triggers a chain reaction throughout your body. 1 PREVENT INFECTIONS Take good care of chronic conditions. Talk to your doctor about getting the recommended vaccines. 2 PRACTICE GOOD HYGIENE Wash your hands frequently. Keep cuts or open sores clean and covered until they are healed. 3 KNOW THE SYMPTOMS Confusion or disorientation Shortness of breath High heart rate Fever, shivering, or feeling very cold Extreme pain or discomfort Clammy or sweaty skin 4 ACT FAST Get medical care IMMEDIATELY if you suspect sepsis or if you have an infection that is not getting better or is getting worse. To learn more about sepsis and how to prevent infections, visit www.cdc.gov/sepsis. Test Results Laboratory or Other Results This Visit (last charted value for your 04/12/2019 visit) No Laboratory or Other Results This Visit Patient Name:ASHER BAILEY I have received and understand this information and was given the opportunity to ask questions. Patient/Hoist Mechanic Name: Patient/Hoist Mechanic Signature: Relationship to Patient: Clinician/Hospital Hoist Mechanic Signature: Date: documented in this encounter Plan of Treatment Not on file documented as of this encounter Visit Diagnoses Not on filedocumented in this encounter Care Teams Hoist Mechanic Relationship Specialty Start Date End Date Clifford Newell PA [address] [place] [address] [place] [address] PCP - General Physician Beam Machine Operator 10/14/23 documented as of this encounter
--- OUTSIDE RECORDS SUMMARY | 2024-08-03 17:06 | XMS_ITS | Encounter Summary ---
Author Organization [employer] Address [address] [place] [address] Care Team Providers Care Intelligence Officer Basic Name Role Phone Unavailable Primary Care Provider Unavailabl e Encounter Details Date Type Department Care Team (Late st Contact Info) Description 11/20/2019 Historic Encounter [address] [phone] Provider, [facility] Historical Social History Tobacco Use Types Packs/Day [...] Comments FREE LIGHT CHAINS GAMMOPATHY PNL, SENDOUT ([facility] BKR DATA CONV) Routine 11/20/2019 8:30 AM EST documented in this encounter Results * (ABNORMAL) FREE LIGHT CHAINS GAMMOPATHY PNL, SENDOUT ([facility] BKR DATA CONV) (11/20/2019 8:30 AM EST) [place] FLC 11.3 3.3 - 19.4 11/21/2019 8:11 PM EST L[place] FLC 10.0 5.7 - 26.3 11/21/2019 8:11 PM EST [place]/Lambda FLC Ratio 1.13 0.26 - 1.65 11/21/2019 8:11 PM EST Comment: Performed At: [address] [id number] Odin Stevens PhD Ph:[phone] Protein, Total, Serum 7.0 6.0 - 8.5 g/dL 11/21/2019 8:11 PM EST Albumin, Serum 3.5 2.9 - 4.4 g/dL 11/21/2019 8:11 PM EST [employer]. Interp. 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 SPE Alpha1 Globulin 0.2 0.0 - 0.4 g/dL 11/21/2019 8:11 PM EST SPE Alpha 2 Globulin 0.8 0.4 - 1.0 g/dL 11/21/2019 8:11 PM EST SPE Beta Globulin 1.8(H) 0.7 - 1.3 g/dL 11/21/2019 8:11 PM EST SPE Gamma Globulin 0.7 0.4 - 1.8 g/dL 11/21/2019 8:11 PM EST MSpike 1.2(H) Not Observed g/dL 11/21/2019 8:11 PM EST SPE Globulin, Total 3.5 2.2 - 3.9 g/dL 11/21/2019 8:11 PM EST SPE A/G Ratio 1.1 0.7 - 1.7 11/21/2019 8:11 PM EST SPE Note Comment 11/21/2019 8:11 PM EST Comment: Protein electrophoresis scan will follow via computer, mail, or director of archives delivery. IgA 1120(H) 87 - 352 mg/dL 11/21/2019 8:11 PM EST Comment: Results confirmed on dilution. IgG 659(L) 700 - 1600 mg/dL 11/21/2019 8:11 PM EST IgM 26 26 - 217 mg/dL 11/21/2019 8:11 PM EST Comment:Result confirmed on concentration. Blood 11/20/2019 8:30 AM EST 11/20/2019 5:15 PM EST [facility] Historical Provider LAB BLOOD ORDERABLES Fi nal Result Performing Organization Address City/State/[facility] Co de Phone Number [facility] [address] [phone] documented in this encounter Visit Diagnoses Not on filedocumented in this encounter
--- OUTSIDE RECORDS SUMMARY | 2024-08-03 17:06 | XMS_ITS | Encounter Summary ---
Author Organization [employer] Address [address] [place] [address] Care Team Providers Care Fleet Service Manager Name Role Phone Unavailable Primary Care Provider Unavailabl e Encounter Details Date Type Department Care Team (Late st Contact Info) Description 07/22/2021 Historic Encounter [address] [phone] ProviderYoli Historical Social History Tobacco [...] Comments FREE LIGHT CHAINS GAMMOPATHY PNL, SENDOUT ([facility] BKR DATA CONV) Routine 07/22/2021 10:49 AM EDT CBC W/ AUTO DIFF ([facility] BKR DATA CONV) Routine 07/22/2021 10:49 AM EDT AUTOMATED DIFFERENTIAL ([facility] BKR DATA CONV) Routine 07/22/2021 10:49 AM EDT CMP COMPREHENSIVE METABOLIC PANEL ([facility] BKR DATA CONV) Routine 07/22/2021 10:49 AM EDT documented in this encounter Results * (ABNORMAL) CBC W/ AUTO DIFF ([facility] BKR DATA CONV) (07/22/2021 10:49 AM EDT) WBC 2.0(L) 4.5 - 12.5 x10(3)/uL 07/22/2021 3:26 PM EDT RBC 3.44(L) 4.50 - 5.20 x10(3)/uL 07/22/2021 3:26 PM EDT Hgb 11.8(L) 12.0 - 16.0 g/dL 07/22/2021 3:26 PM EDT Hct 36.2 36.0 - 46.0 % 07/22/2021 3:26 PM EDT MCV 105.2(H) 80.0 - 100.0 fL 07/22/2021 3:26 PM EDT MCH 34.3(H) 26.0 - 34.0 pg 07/22/2021 3:26 PM EDT MCHC 32.6 31.0 - 37.0 g/dL 07/22/2021 3:26 PM EDT RDW 13.0 12.0 - 16.8 % 07/22/2021 3:26 PM EDT Platelet Count 108(L) 140 - 440 x10(3)/uL 07/22/2021 3:26 PM EDT MPV 9.7 7.4 - 10.4 fL 07/22/2021 3:26 PM EDT Blood 07/22/2021 10:4 9 AM EDT 07/22/2021 3:18 PM EDT [facility] Historical Provider LAB BLOOD ORDERABLES Fi nal Result [facility] [address] [place] [address], [facility] [phone] * (ABNORMAL) AUTOMATED DIFFERENTIAL ([facility] BKR DATA CONV) (07/22/2021 10:49 AM EDT) Neut% 27.5(L) 45.0 - 80.0 % 07/22/2021 3:26 PM EDT Lymph% 50.0(H) 15.0 - 45.0 % 07/22/2021 3:26 PM EDT Hill% 15.5(H) 0.0 - 10.0 % 07/22/2021 3:26 PM EDT Eos% 6.0(H) 0.0 - 5.0 % 07/22/2021 3:26 PM EDT Baso% 1.0 0.0 - 3.0 % 07/22/2021 3:26 PM EDT Neut# 0.55(L) 2.00 - 8.80 K/uL 07/22/2021 3:26 PM EDT Lymph# 1.00 0.70 - 5.50 K/uL 07/22/2021 3:26 PM EDT Hill# 0.31 0.00 - 1.70 K/uL 07/22/2021 3:26 PM EDT Eos# 0.12 0.00 - 0.80 K/uL 07/22/2021 3:26 PM EDT Baso# 0.02 0.00 - 0.02 K/uL 07/22/2021 3:26 PM EDT Blood 07/22/2021 10:4 9 AM EDT 07/22/2021 3:18 PM EDT Narrative [facility] - 07/22/2021 3:48 PM EDT Added by Discern Expert [facility] Historical Provider LAB BLOOD ORDERABLES Fi nal Result [facility] [address] [place] [address], [facility] [phone] * (ABNORMAL) CMP COMPREHENSIVE METABOLIC PANEL ([facility] BKR DATA CONV) (07/22/2021 10:49 AM EDT) Sodium Level 145 136 - 146 mmol/L 07/22/2021 6:14 PM EDT Potassium Level 3.4(L) 3.5 - 5.1 mmol/L 07/22/2021 6:14 PM EDT Chloride Level 110 102 - 112 mmol/L 07/22/2021 6:14 PM EDT Carbon Dioxide Level 29 21 - 32 mmol/L 07/22/2021 6:14 PM EDT Anion Gap 9 9 - 20 07/22/2021 6:14 PM EDT Calcium Level 8.8 8.5 - 10.1 mg/dL 07/22/2021 6:14 PM EDT Glucose Level 94 74 - 106 mg/dL 07/22/2021 6:14 PM EDT Comment: [facility] has become aware of sulfasalazine and sulfapyridine [...] administration of the drug. Blood Urea Nitrogen 12 7 - 22 mg/dL 07/22/2021 6:14 PM EDT Creatinine Level 0.88 0.55 - 1.02 mg/dL 07/22/2021 6:14 PM EDT Bun/Creatinine 13.6 8.0 - 20.0 07/22/2021 6:14 PM EDT Albumin Level 3.3(L) 3.4 - 5.0 Gram/dL 07/22/2021 6:14 PM EDT Protein, Total 6.7 6.4 - 8.2 Gram/dL 07/22/2021 6:14 PM EDT A/G Ratio 1.0(L) 1.1 - 2.5 07/22/2021 6:14 PM EDT Alk Phos 58 27 - 136 Units/Lit er 07/22/2021 6:14 PM EDT ALT 22 12 - 78 Units/Lit er 07/22/2021 6:14 PM EDT Comment: [facility] has become aware of sulfasalazine and sulfapyridine [...] prior to administration of the drug. AST 19 5 - 37 Units/Lit er 07/22/2021 6:14 PM EDT Comment: [facility] has become aware of sulfasalazine and sulfapyridine [...] to administration of the drug. Bilirubin, Total 0.6 0.2 - 1.3 mg/dL 07/22/2021 6:14 PM EDT Comment: Total bilirubin results may be falsely elevated in patients undergoing treatment with eltrombopag (Promacta). Results should be correlated to clinical symptomology and additional laboratory testing including other markers for liver function, e.g., alanine aminotransferase, aspartate aminotransferase, alkaline phosphatase, and/or lactate dehydrogenase. Globulin 3.4 1.5 - 4.5 Gram/dL 07/22/2021 6:14 PM EDT eGFR >60 >=60 mL/min/1. 73m2 07/22/2021 6:14 PM EDT Comment: GFR <60 suggests chronic kidney disease, if found over 3 month period. GFR <15 indicates renal failure. eGFR NonAfrican >60 >=60 mL/min/1. 73m2 07/22/2021 6:14 PM EDT Comment: GFR <60 suggests chronic kidney disease, if found over 3 month period. GFR <15 indicates renal failure. Blood 07/22/2021 10:4 9 AM EDT 07/22/2021 5:37 PM EDT us [facility] Historical Provider LAB BLOOD ORDERABLES Fi nal Result [facility] [address] [place], [place] [address] [phone] * (ABNORMAL) FREE LIGHT CHAINS GAMMOPATHY PNL, SENDOUT ([facility] BKR DATA CONV) (07/22/2021 10:49 AM EDT) [place] FLC 24.4(H) 3.3 - 19.4 07/24/2021 9:09 PM EDT Lambda FLC 19.0 5.7 - 26.3 07/24/2021 9:09 PM EDT [place]/Lambda FLC Ratio 1.28 0.26 - 1.65 07/24/2021 9:09 PM EDT Comment: Performed At: [address] [id number] Odin Stevens PhD Ph:[phone] Protein, Total, Serum 6.2 6.0 - 8.5 g/dL 07/24/2021 9:09 PM EDT Albumin, Serum 3.5 2.9 - 4.4 g/dL 07/24/2021 9:09 PM EDT [employer]. Interp. Comment(A) 2020 9:09 PM EDT Comment: Immunofixation shows IgA monoclonal protein with lambda light chain specificity. SPE Alpha1 Globulin 0.2 0.0 - 0.4 g/dL 07/24/2021 9:09 PM EDT SPE Alpha 2 Globulin 0.7 0.4 - 1.0 g/dL 07/24/2021 9:09 PM EDT SPE Beta Globulin 1.0 0.7 - 1.3 g/dL 07/24/2021 9:09 PM EDT SPE Gamma Globulin 0.9 0.4 - 1.8 g/dL 07/24/2021 9:09 PM EDT MSpike Comment: Not Observed g/dL 07/24/2021 9:09 PM EDT Comment: Due to the small quantity of monoclonal protein, unable to quantitate the M-spike. SPE Globulin, Total 2.7 2.2 - 3.9 g/dL 07/24/2021 9:09 PM EDT SPE A/G Ratio 1.3 0.7 - 1.7 07/24/2021 9:09 PM EDT SPE Note Comment 07/24/2021 9:09 PM EDT Comment: Protein electrophoresis scan will follow via computer, mail, or funeral pre arrangement specialist delivery. IgA 170 87 - 352 mg/dL 07/24/2021 9:09 PM EDT IgG 888 586 - 1602 mg/dL 07/24/2021 9:09 PM EDT IgM 30 26 - 217 mg/dL 07/24/2021 9:09 PM EDT Blood 07/22/2021 10:4 9 AM EDT 07/22/2021 10:33 PM EDT [facility] Historical Provider LAB BLOOD ORDERABLES Fi nal Result [facility] [address] [phone] documented in this encounter Visit Diagnoses Not on filedocumented in this encounter
--- OUTSIDE RECORDS SUMMARY | 2024-08-03 17:06 | XMS_ITS | Encounter Summary ---
Author Organization [employer] Address [address] [place] [address] Care Team Providers Care Checkout Supervisor Name Role Phone Clifford Newell Primary Care Provider + [phone] Encounter Details Date Type Department Care Team (Late st Contact Info) Description 04/12/2019 Transcribed Document [facility] [place] [address] [place] [address] ProviderAntoinette MD [address] [place] [address] Social History Tobacco Use Types Packs/Day Years Used Date Smoking Tobacco: Never Assessed Comments Unknown Sex and Gender Information Value Date Recorded Sex Assigned at Not on file Legal Sex Female 10:12 AM CDT Gender Identity Not on file Sexual Orientation Not on file documented as of this encounter Miscellaneous Notes * Cerner Conversion Note - Antoinette ProviderMD - 04/12/2019 6:19 AM CDT Pre Procedure Adult Entered On: 04/12/2019 6:23 EDT Performed On: 04/12/2019 6:19 EDT by SANGEETA CHUN RN Height and Weight, Clinical Dosing Height Source : Measured Height Entry Format : [place] Height, Feet : 5 ft(Converted to: 152 cm, 60 Inch) Height, Inches : 7 Inch(Converted to: 0 ft 7 Inch, 17.78 cm) Clinical Height : 170.18 cm Weight Source : Standing scale Weight Entry Format : [place] Clinical Dosing Weight : 129.55 kg Weight, Pounds : 285 lb Body Surface Area (BSA) : 2.35 m2 Body Mass Index : 44.7 kg/m2 (>HHI) [place] Body Weight : 61 kg SANGEETA CHUN RN - 04/12/2019 6:19 EDT Health Histories Smoking Status : Former smoker, quit more than 30 days ago Smokeless Tobacco Status : Never SANGEETA CHUN RN - 04/12/2019 6:19 EDT Social History (As Of: 04/12/2019 06:23:47 EDT) Tobacco: Former smoker, quit more than 30 days ago Smoking Status. Packs/Tins Daily: .5. Last Used: never smoked regularly. (Last Updated: 04/12/2019 06:20:31 EDT by SANGEETA CHUN, RN) Infectious Disease History Infectious Disease History : None Fever/Chills Last 48 Hours : No Travel To Regions with Travel Advisories : No Travel Outside [place] Within Last 30 Days : No Contact With Traveler to Advisory Region : No Tuberculosis Symptoms : None SANGEETA CHUN RN - 04/12/2019 6:19 EDT Anesthesia/Transfusion History Family History of Anesthesia Reaction : No prior transfusion(s) Transfusion History : Prior anesthesia reaction Type of Anesthesia Reaction : Excessive somnolence Family History of Anesthesia Reaction : None SANGEETA CHUN RN - 04/12/2019 6:19 EDT Functional Assessment Living Situation : Home Current Home Treatments : CPAP SANGEETA CHUN RN - 04/12/2019 6:19 EDT Psychosocial History Do You Have a History of the Following? : Anxiety Currently in Unsafe Situation : No Tried to Harm Yourself in the Past? : No Thoughts of Harming/Killing Yourself : No SANGEETA CHUN RN - 04/12/2019 6:19 EDT Advance Directive Patient has Advance Directive *Q : No, patient refuses Advance Directive information SANGEETA CHUN RN - 04/12/2019 6:19 EDT Teaching/Learning Assessment Barriers To Learning : None evident Individuals Taught : Patient Readiness to Learn : Cooperative Readiness to Learn : Explanation Learning Style Preferences Family : Verbal explanation SANGEETA CHUN RN - 04/12/2019 6:19 EDT Education Topics, Periop Preadmission Perioperative Education Grid Postoperative Care Preparations : Verbalizes understanding Preprocedure Preparations : Verbalizes understanding SANGEETA CHUN RN - 04/12/2019 6:19 EDT General Info Arrived From : Home Mode of Arrival on Unit : Ambulatory Patient Arrival Date/Time : 04/12/2019 6:21 EDT Legal Guardian : Other: friend Lyudmila Sutherland Support Person/Pt Rep Name : Lyudmila Sutherland - friend Want Family/Rep/Phys Notified of Admit : No Emergency Contact #1 : none Emergency Contact #1 Phone Number : none Emergency Contact #1 Relationship : none Emergency Contact #2 : none Emergency Contact #2 Phone Number : none Emergency Contact #2 Relationship : none Primary Language : Slovenian Communication Barrier : None SANGEETA CHUN RN - 04/12/2019 6:19 EDT Vital Measurements Temperature, Fahrenheit : 97 Deg F Clinical Temperature, C : 36.1 Deg C Peripheral Pulse Rate : 55 bpm (LOW) Systolic Blood Pressure : 130 mmHg Diastolic Blood Pressure : 80 mmHg Oxygen Saturation : 97 % SANGEETA CHUN RN - 04/12/2019 6:19 EDT Sleep Apnea Risk Assmt BiPAP/CPAP Ordered for Home Use : Yes Hx of Obstructive Sleep Apnea Diagnosis : Yes BiPAP/CPAP Used at Home : Yes Age over 50 Years Old : Yes Gender Male : No SANGEETA CHUN RN - 04/12/2019 6:19 EDT Giuseppe Scale Giuseppe Sensory Perception : No impairment Giuseppe Moisture : Rarely moist Giuseppe Activity : Walks frequently Giuseppe Mobility : No limitation Giuseppe Nutrition : Excellent Giuseppe Friction and Shear : No apparent problem Giuseppe Score : 23 SANGEETA CHUN RN - 04/12/2019 6:19 EDT Pain Assessment Pain Assessment : Initial assessment Pain Scale Used : 0-10 Scale SANGEETA CHUN RN - 04/12/2019 6:19 EDT Fall Risk Scales ABCs Fall Injury Risk Identification : None DANIELS Hx Falls Immediate/Within 3 Months : No Daniels Secondary Diagnosis : Yes DANIELS Use of Ambulatory Aid : None DANIELS IV Therapy or IV Access : Yes Daniels Gait/Transferring : Normal, bedrest, immobile Daniels Mental Status : Oriented to own ability Daniels Fall Risk Score : 35 DANIELS Fall Scale Risk Level : 25-45 Medium Risk [place] Fall Interventions : Adequate lighting, Bed in low position, Call device within reach, Non-slip footwear, Wheels locked SANGEETA CHUN RN - 04/12/2019 6:19 EDT Valuables and Belongings Valuables and Belongings : Clothing Clothing : Common streetwear Clothing Disposition : Bedside SANGEETA CHUN RN - 04/12/2019 6:19 EDT Pain Scale Intensity : 0 SANGEETA CHUN RN - 04/12/2019 6:19 EDT Image 4 - Images currently included in the form version of this document have not been included in the text rendition version of the form. Electronically signed by [facility] Conversion Eyeglass Inspector Cerner at 01/08/2023 4:16 PM CDT documented in this encounter Plan of Treatment Not on file documented as of this encounter Visit Diagnoses Not on filedocumented in this encounter Care Teams Checkout Supervisor Relationship Specialty Start Date End Date Clifford Newell PA [address] [place] [address] [place] [address] PCP - General Physician Traffic Sign Supervisor 10/14/23 documented as of this encounter
--- OUTSIDE RECORDS SUMMARY | 2024-08-03 17:06 | XMS_ITS | Encounter Summary ---
Author Organization [employer] Address [address] [place] [address] Care Team Providers Care Recycling Coordinator Name Role Phone Clifford Newell Primary Care Provider + [phone] Encounter Details Date Type Department Care Team (Late st Contact Info) Description 12/01/2019 Transcribed Document [facility] [place] Family Medicine [address] [place] [address] ProviderAntoinette MD [address] [place] [id number] Social History Tobacco Use Types Packs/Day Years Used Date Smoking Tobacco: Never Assessed Comments Unknown Sex and Gender Information Value Date Recorded Sex Assigned at Not on file Legal Sex Female 10:12 AM CDT Gender Identity Not on file Sexual Orientation Not on file documented as of this encounter Miscellaneous Notes * Cerner Conversion Note - Antoinette ProviderMD - 12/01/2019 3:00 PM CDT Patient: ASHER BAILEY Age: 59 years Sex: Female : 1960 Associated Diagnoses: None Author: JUDIT AGUIRRE MD-RAD Pre-OP/Procedure Diagnosis: _Multiple myeloma Post-OP/Procedure Diagnosis: Need for long term access Procedure Performed: Tunnelled subcutaneous dual lumen port placement Procedural MD: Eugene Principal Technical Writer: None Sedation: 3 ml of Versed iv and 200 mcg of Fentanyl iv Findings: Successful right IJ tunnelled subcutaneous dual lumen port placement. Complications: None EBL: Min Specimen(s) Removed: None Full report to follow. documented in this encounter Plan of Treatment Not on file documented as of this encounter Visit Diagnoses Not on filedocumented in this encounter Care Teams Recycling Coordinator Relationship Specialty Start Date End Date Clifford Newell, MARILEE [address] [place] [address] [place] [address] PCP - General Physician Principal Technical Writer 10/14/23 documented as of this encounter
--- OUTSIDE RECORDS SUMMARY | 2024-08-03 17:06 | XMS_ITS | Encounter Summary ---
Author Organization [employer] Address [address] [place] [address] Care Team Providers Care Consumer Education Specialist Name Role Phone Clifford Newell Primary Care Provider + [phone] Encounter Details Date Type Department Care Team (Late st Contact Info) Description 05/06/2021 Transcribed Document [facility] [place] [address] [place] [address] ProviderAntoinette MD [address] [place] [address] Social History Tobacco Use Types Packs/Day Years Used Date Smoking Tobacco: Never Assessed Comments Unknown Sex and Gender Information Value Date Recorded Sex Assigned at Not on file Legal Sex Female 10:12 AM CDT Gender Identity Not on file Sexual Orientation Not on file documented as of this encounter Miscellaneous Notes * Cerner Conversion Note - Antoinette ProviderMD - 05/06/2021 2:38 PM CDT Stroke/Warfarin Instructions Entered On: 05/06/2021 14:38 EDT Performed On: 05/06/2021 14:38 EDT by Jerry Carpio RN Stroke/Warfarin Instructions Stroke/TIA Discharge Ins : N/A Warfarin Discharge Ins : N/A Jerry Carpio RN - 05/06/2021 14:38 EDT documented in this encounter Plan of Treatment Not on file documented as of this encounter Visit Diagnoses Not on filedocumented in this encounter Care Teams Consumer Education Specialist Relationship Specialty Start Date End Date Clifford Newell PA [address] [place] [address] [place] [address] PCP - General Physician Machine Stuffer 10/14/23 documented as of this encounter
--- OUTSIDE RECORDS SUMMARY | 2024-08-03 17:06 | XMS_ITS | Encounter Summary ---
Author Organization [employer] Address [address] [facility] [place] [place] [address] Care Team Providers Care Engagement Quality Consultant Name Role Phone Clifford Newell Primary Care Provider + [phone] Encounter Details Date Type Department Care Team (Late st Contact Info) Description 04/12/2019 Transcribed Document [facility] [place] Family Medicine [address] [place] [address] ProviderAntoinette MD [address] [place] [address] Social History Tobacco Use Types Packs/Day Years Used Date Smoking Tobacco: Never Assessed Comments Unknown Sex and Gender Information Value Date Recorded Sex Assigned at Not on file Legal Sex Female 10:12 AM CDT Gender Identity Not on file Sexual Orientation Not on file documented as of this encounter Miscellaneous Notes * Cerner Conversion Note - Antoinette Rae MD - 04/12/2019 6:35 AM CDT Patient Education Materials Follows: Bone Marrow Aspiration and Bone Marrow Biopsy, [...] Follow these instructions at home: ??? Take zxrl-qoe-zseycyz or prescription medicines only as told by [...] and water are not available, use hand formula maker. ? Change your dressing as told by your health care provider. ??? Check your puncture site?every day for signs of infection. Check for: [...] 03/26/2006 Document Revised: 03/26/2017 Document Reviewed: 02/17/2017 [employer] Interactive Patient Education ? 2019 [employer] Moderate Conscious Sedation, Adult, Care After [...] you are awake and alert. ??? Take jswd-hll-eozuoff and prescription medicines only as told by [...] 06/27/2014 Document Revised: 02/08/2017 Document Reviewed: 12/26/2016 [employer] Interactive Patient Education ? 2019 [employer]. documented in this encounter Plan of Treatment Not on file documented as of this encounter Visit Diagnoses Not on filedocumented in this encounter Care Teams Engagement Quality Consultant Relationship Specialty Start Date End Date Clifford Newell, MARILEE [address] [place] [address] [place] [address] PCP - General Physician Steam Crane Operator 10/14/23 documented as of this encounter
--- OUTSIDE RECORDS SUMMARY | 2024-08-03 17:06 | XMS_ITS | Encounter Summary ---
Author Organization [employer] Address [address] [place] [address] Care Team Providers Care Car Whacker Name Role Phone Unavailable Primary Care Provider Unavailabl e Encounter Details Date Type Department Care Team (Late st Contact Info) Description 05/06/2021 Historic Encounter [facility] Radiology [address] [place] [address] Crystal Crabtree MD [facility] [address] [address] Social History Tobacco Use Types Packs/Day Years [...] Procedure Name Priority Date/Time Associated Diagnosis Comments OFELIA,REMOVE TUNNELED CVC W PORT Routine 05/06/2021 2:13 PM EDT documented in this encounter Results * OFELIA,REMOVE TUNNELED CVC W PORT (05/06/2021 2:13 PM EDT) Anatomical Region Laterality Modality X-Ray 05/06/2021 2:13 PM EDT Narrative 05/06/2021 7:24 PM EDT PROCEDURE: Tunneled chest port removal. HISTORY: Patient no longer needs chest port. The procedure, risks and benefits were explained to the patient. Written informed consent was obtained. A timeout was performed. The upper chest was prepped and draped in the usual sterile manner. Appropriate antibiotic coverage was administered. Lidocaine was administered in the subcutaneous tissues of the chest. An incision above the port was made. Utilizing sharp and blunt dissection, the port was dissected. Stay sutures were removed. The port was withdrawn. The catheter was withdrawn. The pocket was vigorously flushed with saline. Sutures in a layered fashion were placed to close the pocket. The patient received 2 mg of Versed and 150 mcg of fentanyl for conscious sedation. Sedation time was 15 minutes. A nurse was present. 900 milligrams of clindamycin administered. IMPRESSION: Successful removal of a chest port. The patient tolerated the procedure well and left the department in good condition. There were no immediate complications. Fluoroscopy exposure time: 0.2 minutes. Spot films: 1. Images reviewed, interpreted, and dictated by Jaleesa Crabtree MD Procedure Note Crystal Crabtree MD - 01/05/2023 PROCEDURE: Tunneled chest port removal. HISTORY: Patient no longer needs chest port. The procedure, risks and benefits were explained to the patient. Written informed consent was obtained. A timeout was performed. The upper chest was prepped and draped in the usual sterile manner. Appropriate antibiotic coverage was administered. Lidocaine was administered in the subcutaneous tissues of the chest. An incision above the port was made. Utilizing sharp and blunt dissection, the port was dissected. Stay sutures were removed. The port was withdrawn. The catheter was withdrawn. The pocket was vigorously flushed with saline. Sutures in a layered fashion were placed to close the pocket. The patient received 2 mg of Versed and 150 mcg of fentanyl for conscious sedation. Sedation time was 15 minutes. A nurse was present. 900 milligrams of clindamycin administered. IMPRESSION: Successful removal of a chest port. The patient tolerated the procedure well and left the department in good condition. There were no immediate complications. Fluoroscopy exposure time: 0.2 minutes. Spot films: 1. Images reviewed, interpreted, and dictated by Jaleesa Crabtree MD us Crystal Crabtree MD IMG DIAGNOSTIC IMAGING OR DERABLES Final Result documented in this encounter Visit Diagnoses Not on filedocumented in this encounter
--- OUTSIDE RECORDS SUMMARY | 2024-08-03 17:06 | XMS_ITS | Encounter Summary ---
Author Organization [employer] Address [address] [place] [address] Care Team Providers Care Chemical Applicator Name Role Phone Clifford Newell Primary Care Provider + [phone] Encounter Details Date Type Department Care Team (Late st Contact Info) Description 05/06/2021 Transcribed Document [facility] [place] Family Medicine [address] [place] [address] ProviderAntoinette MD [address] [place] [address] Social History Tobacco Use Types Packs/Day Years Used Date Smoking Tobacco: Never Assessed Comments Unknown Sex and Gender Information Value Date Recorded Sex Assigned at Not on file Legal Sex Female 10:12 AM CDT Gender Identity Not on file Sexual Orientation Not on file documented as of this encounter Miscellaneous Notes * Cerner Conversion Note - Antoinette ProviderMD - 05/06/2021 3:47 PM CDT Nursing Discharge Summary Entered On: 05/06/2021 15:47 EDT Performed On: 05/06/2021 15:47 EDT by Jerry Carpio RN Discharge Documentation Discharge Date/Time : 05/06/2021 15:45 EDT Patient Disposition, General : Discharge Discharge To : Home with ambulatory/outpatient follow-up Mode Of Departure, General Discharge : Private vehicle Accompanied By, Discharge : Friend IV Discontinued : Yes Personal Belongings With Patient : Yes Pt's Own Supply of Medications Returned : No patient supply of medications to return Prescriptions Given to Patient : No Medications Given to Patient : No Discharge Instructions Reviewed With, Opportunity For Questions Given : Patient, Friend Patient Education Completed : Yes Teaching Method : Explanation, Printed materials Teaching Evaluation : Verbalizes understanding Jerry Carpio RN - 05/06/2021 15:47 EDT Electronically signed by [facility], [facility] Conversion Licensed Practical Nurse Cerner at 01/08/2023 4:17 PM CDT documented in this encounter Plan of Treatment Not on file documented as of this encounter Visit Diagnoses Not on filedocumented in this encounter Care Teams Chemical Applicator Relationship Specialty Start Date End Date Clifford Newell PA [address] [place] [address] [place] [address] PCP - General Physician Cook Morning 10/14/23 documented as of this encounter
--- OUTSIDE RECORDS SUMMARY | 2024-08-03 17:06 | XMS_ITS | Encounter Summary ---
Author Organization [employer] Address [address] [place] [address] Care Team Providers Care Data Warehouse Manager Name Role Phone Unavailable Primary Care Provider Unavailabl e Encounter Details Date Type Department Care Team (Late st Contact Info) Description 10/10/2019 Historic Encounter [address] [address] Provider, [facility] Historical Social History Tobacco Use Types Packs/Day [...] Comments FREE LIGHT CHAINS GAMMOPATHY PNL, SENDOUT ([facility] DATA CONV) Routine 10/10/2019 10:10 AM EST CMP COMPREHENSIVE METABOLIC PANEL ([facility] DATA CONV) Routine 10/10/2019 10:10 AM EST documented in this encounter Results * (ABNORMAL) FREE LIGHT CHAINS GAMMOPATHY PNL, SENDOUT ([facility] DATA CONV) (10/10/2019 10:10 AM EST) [place] FLC 13.2 3.3 - 19.4 10/11/2019 8:08 PM EST Lambda FLC 12.8 5.7 - 26.3 10/11/2019 8:08 PM EST [place]/Lambda FLC Ratio 1.03 0.26 - 1.65 10/11/2019 8:08 PM EST Comment: Performed At: Lab[address] [id number] Odin Stevens PhD Ph:[phone] Protein, Total, Serum 6.6 6.0 - 8.5 g/dL 10/11/2019 8:08 PM EST Albumin, Serum 3.5 2.9 - 4.4 g/dL 10/11/2019 8:08 PM EST [employer]. Interp. 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 SPE Alpha1 Globulin 0.2 0.0 - 0.4 g/dL 10/11/2019 8:08 PM EST SPE Alpha 2 Globulin 0.8 0.4 - 1.0 g/dL 10/11/2019 8:08 PM EST SPE Beta Globulin 1.6(H) 0.7 - 1.3 g/dL 10/11/2019 8:08 PM EST SPE Gamma Globulin 0.6 0.4 - 1.8 g/dL 10/11/2019 8:08 PM EST MSpike 0.7(H) Not Observed g/dL 10/11/2019 8:08 PM EST SPE Globulin, Total 3.1 2.2 - 3.9 g/dL 10/11/2019 8:08 PM EST SPE A/G Ratio 1.2 0.7 - 1.7 10/11/2019 8:08 PM EST SPE Note Comment 10/11/2019 8:08 PM EST Comment: Protein electrophoresis scan will follow via computer, mail, or redeye gunner delivery. IgA 709(H) 87 - 352 mg/dL 10/11/2019 8:08 PM EST IgG 616(L) 700 - 1600 mg/dL 10/11/2019 8:08 PM EST IgM 29 26 - 217 mg/dL 10/11/2019 8:08 PM EST Blood 10/10/2019 10:1 0 AM EST 10/10/2019 5:45 PM EST us [facility] Historical Provider LAB BLOOD ORDERABLES Fi nal Result [facility] [address] [place] [address], [facility] [phone] * (ABNORMAL) CMP COMPREHENSIVE METABOLIC PANEL ([facility] DATA CONV) (10/10/2019 10:10 AM EST) Sodium Level 144 136 - 146 mmol/L 10/10/2019 6:10 PM EST Potassium Level 3.3(L) 3.5 - 5.1 mmol/L 10/10/2019 6:10 PM EST Chloride Level 111 102 - 112 mmol/L 10/10/2019 6:10 PM EST Carbon Dioxide Level 27 21 - 32 mmol/L 10/10/2019 6:10 PM EST Anion Gap 9 9 - 20 10/10/2019 6:10 PM EST Calcium Level 9.2 8.5 - 10.1 mg/dL 10/10/2019 6:10 PM EST Glucose Level 129(H) 74 - 106 mg/dL 10/10/2019 6:10 PM EST Comment: [facility] has become aware of sulfasalazine and sulfapyridine [...] administration of the drug. Blood Urea Nitrogen 14 7 - 22 mg/dL 10/10/2019 6:10 PM EST Creatinine Level 0.85 0.55 - 1.02 mg/dL 10/10/2019 6:10 PM EST Bun/Creatinine 16.5 8.0 - 20.0 10/10/2019 6:10 PM EST Albumin Level 3.3(L) 3.4 - 5.0 Gram/dL 10/10/2019 6:10 PM EST Protein, Total 7.1 6.4 - 8.2 Gram/dL 10/10/2019 6:10 PM EST A/G Ratio 0.9(L) 1.1 - 2.5 10/10/2019 6:10 PM EST Alk Phos 71 27 - 136 Units/Lit er 10/10/2019 6:10 PM EST ALT 24 12 - 78 Units/Lit er 10/10/2019 6:10 PM EST Comment: [facility] has become aware of sulfasalazine and sulfapyridine [...] prior to administration of the drug. AST 16 5 - 37 Units/Lit er 10/10/2019 6:10 PM EST Comment: [facility] has become aware of sulfasalazine and sulfapyridine [...] to administration of the drug. Bilirubin, Total 0.7 0.2 - 1.3 mg/dL 10/10/2019 6:10 PM EST Globulin 3.8 1.5 - 4.5 Gram/dL 10/10/2019 6:10 PM EST eGFR >60 >=60 mL/min/1. 73m2 10/10/2019 6:10 PM EST Comment: GFR <60 suggests chronic kidney disease, if found over 3 month period. GFR <15 indicates renal failure. eGFR NonAfrican >60 >=60 mL/min/1. 73m2 10/10/2019 6:10 PM EST Comment: GFR <60 suggests chronic kidney disease, if found over 3 month period. GFR <15 indicates renal failure. Blood 10/10/2019 10:1 0 AM EST 10/10/2019 5:44 PM EST us [facility] Historical Provider LAB BLOOD ORDERABLES Fi nal Result [facility] [address] [phone] documented in this encounter Visit Diagnoses Not on filedocumented in this encounter
--- OUTSIDE RECORDS SUMMARY | 2024-08-03 17:06 | XMS_ITS | Encounter Summary ---
Author Organization [employer] Address [address] [place] [address] Care Team Providers Care Crisis Clinician Name Role Phone Unavailable Primary Care Provider Unavailabl e Encounter Details Date Type Department Care Team (Late st Contact Info) Description 12/21/2019 Historic Encounter [facility] Radiology [address] [place] [address] Princess Paulino MD [address] [phone] Social History Tobacco Use Types Packs/Day Years [...] Comments FREE LIGHT CHAINS GAMMOPATHY PNL, SENDOUT ([facility] BKR DATA CONV) Routine 01/16/2020 12:37 PM EDT CTA CHEST Routine 12/21/2019 2:12 PM EDT documented in this encounter Results * (ABNORMAL) FREE LIGHT CHAINS GAMMOPATHY PNL, SENDOUT ([facility] BKR DATA CONV) (01/16/2020 12:37 PM EDT) [place] FLC 4.7 3.3 - 19.4 01/17/2020 8:09 PM EDT Lambda FLC 3.6(L) 5.7 - 26.3 01/17/2020 8:09 PM EDT [place]/Lambda FLC Ratio 1.31 0.26 - 1.65 01/17/2020 8:09 PM EDT Comment: Performed At: [address] [id number] Odin Stevens PhD Ph:[phone] Protein, Total, Serum 5.7(L) 6.0 - 8.5 g/dL 01/17/2020 8:09 PM EDT Albumin, Serum 3.1 2.9 - 4.4 g/dL 01/17/2020 8:09 PM EDT [employer]ix. Interp. Comment 2019 8:09 PM EDT Comment: Immunofixation shows IgG monoclonal protein with kappa light chain specificity. Please note that samples from patients receiving DARZALEX(R) (daratumumab) treatment can appear as an IgG kappa and mask a complete response. If this patient is receiving GINNY, this RALPH assay interference can be removed by ordering test number [id number]- Immunofixation, Daratumumab- Specific, Serum and submitting a new sample for testing or by calling the lab to add this test to the current sample. Immunofixation shows IgA monoclonal protein with lambda light chain specificity. SPE Alpha1 Globulin 0.2 0.0 - 0.4 g/dL 01/17/2020 8:09 PM EDT SPE Alpha 2 Globulin 1.0 0.4 - 1.0 g/dL 01/17/2020 8:09 PM EDT SPE Beta Globulin 1.1 0.7 - 1.3 g/dL 01/17/2020 8:09 PM EDT SPE Gamma Globulin 0.4 0.4 - 1.8 g/dL 01/17/2020 8:09 PM EDT MSpike Comment: Not Observed g/dL 01/17/2020 8:09 PM EDT Comment: Due to the small quantity of monoclonal IgA lambda, unable to qauntitate the M-spike. Monoclonal IgG kappa = 0.2 g/dl SPE Globulin, Total 2.6 2.2 - 3.9 g/dL 01/17/2020 8:09 PM EDT SPE A/G Ratio 1.2 0.7 - 1.7 01/17/2020 8:09 PM EDT SPE Note Comment 01/17/2020 8:09 PM EDT Comment: Protein electrophoresis scan will follow via computer, mail, or peripatologist delivery. IgA 179 87 - 352 mg/dL 01/17/2020 8:09 PM EDT IgG 496(L) 586 - 1602 mg/dL 01/17/2020 8:09 PM EDT IgM 19(L) 26 - 217 mg/dL 01/17/2020 8:09 PM EDT Comment:Result confirmed on concentration. Blood 01/16/2020 12:3 7 PM EDT 01/16/2020 8:19 PM EDT [facility] Historical Provider LAB BLOOD ORDERABLES Fi nal Result [facility] [address] [phone] * CTA chest (12/21/2019 2:12 PM EDT) Anatomical Region Laterality Modality Chest, Lung Computed Tomogra phy 12/21/2019 2:12 PM EDT Narrative 12/21/2019 6:[address] angiogram of the chest HISTORY: Left-sided chest pain with clinical question of pulmonary embolism FINDINGS: Postcontrast imaging with IV contrast. There are no prior CT chest exams. There is thrombus in the lobar arterial branch to the right middle lobe. There is evidence of pulmonary embolism in segmental and subsegmental to reveal branches to the right lower lobe. There are filling defects compatible with pulmonary emboli in segmental and subsegmental branches to the left lower lobe as well. There are no enlarged mediastinal nodes. There are no hilar masses. There are no pleural effusions. The thoracic aorta is normal in size. There is old granulomatous disease. There are small blebs in the right middle and right lower lobes. There are no significant lung infiltrates. This study was performed with techniques to keep radiation doses as low as reasonably achievable (ALARA). Individualized dose reduction techniques using automated exposure control or adjustment of mA and/or kV according to the patient's size were employed. IMPRESSION: Findings are compatible with multiple bilateral pulmonary emboli as detailed. Procedure Note Princess Paulino MD - 01/05/2023 CT angiogram of the chest HISTORY: Left-sided chest pain with clinical question of pulmonary embolism FINDINGS: Postcontrast imaging with IV contrast. There are no prior CT chest exams. There is thrombus in the lobar arterial branch to the right middle lobe. There is evidence of pulmonary embolism in segmental and subsegmental to reveal branches to the right lower lobe. There are filling defects compatible with pulmonary emboli in segmental and subsegmental branches to the left lower lobe as well. There are no enlarged mediastinal nodes. There are no hilar masses. There are no pleural effusions. The thoracic aorta is normal in size. There is old granulomatous disease. There are small blebs in the right middle and right lower lobes. There are no significant lung infiltrates. This study was performed with techniques to keep radiation doses as low as reasonably achievable (ALARA). Individualized dose reduction techniques using automated exposure control or adjustment of mA and/or kV according to the patient's size were employed. IMPRESSION: Findings are compatible with multiple bilateral pulmonary emboli as detailed. us Princess Paulino MD IMG CT ORDERABLES Final Resu lt documented in this encounter Visit Diagnoses Not on filedocumented in this encounter
--- OUTSIDE RECORDS SUMMARY | 2024-08-03 17:06 | XMS_ITS | Encounter Summary ---
Author Organization [employer] Address [address] [place] [address] Care Team Providers Care Warehouse Consultant Name Role Phone Unavailable Primary Care Provider Unavailabl e Encounter Details Date Type Department Care Team (Late st Contact Info) Description 01/28/2021 Historic Encounter [address] [address] ProviderYoli Historical Social History Tobacco [...] Comments FREE LIGHT CHAINS GAMMOPATHY PNL, SENDOUT ([facility] BK DATA CONV) Routine 01/28/2021 12:26 PM EDT CBC W/ AUTO DIFF ([facility] BKR DATA CONV) Routine 01/28/2021 12:26 PM EDT AUTOMATED DIFFERENTIAL ([facility] BK DATA CONV) Routine 01/28/2021 12:26 PM EDT CMP COMPREHENSIVE METABOLIC PANEL ([facility] BKR DATA CONV) Routine 01/28/2021 12:26 PM EDT documented in this encounter Results * (ABNORMAL) FREE LIGHT CHAINS GAMMOPATHY PNL, SENDOUT ([facility] BKR DATA CONV) (01/28/2021 12:26 PM EDT) [place] FLC 13.7 3.3 - 19.4 01/30/2021 8:11 PM EDT Lambda FLC 9.2 5.7 - 26.3 01/30/2021 8:11 PM EDT [place]/Lambda FLC Ratio 1.49 0.26 - 1.65 01/30/2021 8:11 PM EDT Comment: Performed At: [facility] [address] [id number] Odin Stevens PhD Ph:[phone] Protein, Total, Serum 5.4(L) 6.0 - 8.5 g/dL 01/30/2021 8:11 PM EDT Albumin, Serum 3.1 2.9 - 4.4 g/dL 01/30/2021 8:11 PM EDT [employer]. Interp. Comment: 2020 8:11 PM EDT Comment:RALPH SHOWS AN ASYMMET RICAL IGA SUGGESTIVE OF A MONOCLONAL PROTEIN SPE Alpha1 Globulin 0.2 0.0 - 0.4 g/dL 01/30/2021 8:11 PM EDT SPE Alpha 2 Globulin 0.7 0.4 - 1.0 g/dL 01/30/2021 8:11 PM EDT SPE Beta Globulin 0.8 0.7 - 1.3 g/dL 01/30/2021 8:11 PM EDT SPE Gamma Globulin 0.5 0.4 - 1.8 g/dL 01/30/2021 8:11 PM EDT MSpike Not Observed Not Observed g/dL 01/30/2021 8:11 PM EDT SPE Globulin, Total 2.3 2.2 - 3.9 g/dL 01/30/2021 8:11 PM EDT SPE A/G Ratio 1.4 0.7 - 1.7 01/30/2021 8:11 PM EDT SPE Note Comment 01/30/2021 8:11 PM EDT Comment: Protein electrophoresis scan will follow via computer, mail, or fire control system installer delivery. IgA 46(L) 87 - 352 mg/dL 01/30/2021 8:11 PM EDT Comment:Result confirmed on concentration. IgG 526(L) 586 - 1602 mg/dL 01/30/2021 8:11 PM EDT IgM 17(L) 26 - 217 mg/dL 01/30/2021 8:11 PM EDT Comment:Result confirmed on concentration. Blood 01/28/2021 12:2 6 PM EDT 01/28/2021 8:20 PM EDT [facility] Historical Provider LAB BLOOD ORDERABLES nal Result [facility] [address] [phone] * (ABNORMAL) AUTOMATED DIFFERENTIAL ([facility] BKR DATA CONV) (01/28/2021 12:26 PM EDT) Neut% 29.9(L) 45.0 - 80.0 % 01/28/2021 4:45 PM EDT Lymph% 48.6(H) 15.0 - 45.0 % 01/28/2021 4:45 PM EDT [place]% 15.9(H) 0.0 - 10.0 % 01/28/2021 4:45 PM EDT Eos% 5.2(H) 0.0 - 5.0 % 01/28/2021 4:45 PM EDT Baso% 0.4 0.0 - 3.0 % 01/28/2021 4:45 PM EDT Neut# 0.75(L) 2.00 - 8.80 K/uL 01/28/2021 4:45 PM EDT Lymph# 1.22 0.70 - 5.50 K/uL 01/28/2021 4:45 PM EDT [place]# 0.40 0.00 - 1.70 K/uL 01/28/2021 4:45 PM EDT Eos# 0.13 0.00 - 0.80 K/uL 01/28/2021 4:45 PM EDT Baso# 0.01 0.00 - 0.02 K/uL 01/28/2021 4:45 PM EDT Blood 01/28/2021 12:2 6 PM EDT 01/28/2021 4:39 PM EDT Narrative [facility] - 01/28/2021 4:45 PM EDT Added by Discern Expert us [facility] Historical Provider LAB BLOOD ORDERABLES Fi nal Result [facility] [address] [phone] * (ABNORMAL) CMP COMPREHENSIVE METABOLIC PANEL ([facility] BKR DATA CONV) (01/28/2021 12:26 PM EDT) Sodium Level 145 136 - 146 mmol/L 01/28/2021 8:43 PM EDT Potassium Level 3.3(L) 3.5 - 5.1 mmol/L 01/28/2021 8:43 PM EDT Chloride Level 112 102 - 112 mmol/L 01/28/2021 8:43 PM EDT Carbon Dioxide Level 28 21 - 32 mmol/L 01/28/2021 8:43 PM EDT Anion Gap 8(L) 9 - 20 01/28/2021 8:43 PM EDT Calcium Level 9.0 8.5 - 10.1 mg/dL 01/28/2021 8:43 PM EDT Glucose Level 93 74 - 106 mg/dL 01/28/2021 8:43 PM EDT Comment: [employer] has become aware of sulfasalazine and sulfapyridine [...] administration of the drug. Blood Urea Nitrogen 11 7 - 22 mg/dL 01/28/2021 8:43 PM EDT Creatinine Level 0.65 0.55 - 1.02 mg/dL 01/28/2021 8:43 PM EDT Bun/Creatinine 16.9 8.0 - 20.0 01/28/2021 8:43 PM EDT Albumin Level 3.3(L) 3.4 - 5.0 Gram/dL 01/28/2021 8:43 PM EDT Protein, Total 6.0(L) 6.4 - 8.2 Gram/dL 01/28/2021 8:43 PM EDT A/G Ratio 1.2 1.1 - 2.5 01/28/2021 8:43 PM EDT Alk Phos 42 27 - 136 Units/Lit er 01/28/2021 8:43 PM EDT ALT 24 12 - 78 Units/Lit er 01/28/2021 8:43 PM EDT Comment: [employer] has become aware of sulfasalazine and sulfapyridine [...] AST 19 5 - 37 Units/Lit er 01/28/2021 8:43 PM EDT Comment: [employer] has become aware of sulfasalazine and sulfapyridine [...] to administration of the drug. Bilirubin, Total 0.5 0.2 - 1.3 mg/dL 01/28/2021 8:43 PM EDT Comment: Total bilirubin results may be falsely elevated in patients undergoing treatment with eltrombopag (Promacta). Results should be correlated to clinical symptomology and additional laboratory testing including other markers for liver function, e.g., alanine aminotransferase, aspartate aminotransferase, alkaline phosphatase, and/or lactate dehydrogenase. Globulin 2.7 1.5 - 4.5 Gram/dL 01/28/2021 8:43 PM EDT eGFR >60 >=60 mL/min/1. 73m2 01/28/2021 8:43 PM EDT Comment: GFR <60 suggests chronic kidney disease, if found over 3 month period. GFR <15 indicates renal failure. eGFR NonAfrican >60 >=60 mL/min/1. 73m2 01/28/2021 8:43 PM EDT Comment: GFR <60 suggests chronic kidney disease, if found over 3 month period. GFR <15 indicates renal failure. Blood 01/28/2021 12:2 6 PM EDT 01/28/2021 8:21 PM EDT [facility] Historical Provider LAB BLOOD ORDERABLES Count includes the [facility] Result [facility] [address] [place] [address], [facility] [phone] * (ABNORMAL) CBC W/ AUTO DIFF ([facility] BKR DATA CONV) (01/28/2021 12:26 PM EDT) WBC 2.5(L) 4.5 - 12.5 x10(3)/uL 01/28/2021 4:45 PM EDT RBC 3.35(L) 4.50 - 5.20 x10(3)/uL 01/28/2021 4:45 PM EDT Hgb 11.4(L) 12.0 - 16.0 g/dL 01/28/2021 4:45 PM EDT Hct 35.1(L) 36.0 - 46.0 % 01/28/2021 4:45 PM EDT MCV 104.8(H) 80.0 - 100.0 fL 01/28/2021 4:45 PM EDT MCH 34.0 26.0 - 34.0 pg 01/28/2021 4:45 PM EDT MCHC 32.5 31.0 - 37.0 g/dL 01/28/2021 4:45 PM EDT RDW 12.3 12.0 - 16.8 % 01/28/2021 4:45 PM EDT Platelet Count 80(L) 140 - 440 x10(3)/uL 01/28/2021 4:45 PM EDT MPV 10.5(H) 7.4 - 10.4 fL 01/28/2021 4:45 PM EDT Blood 01/28/2021 12:2 6 PM EDT 01/28/2021 4:39 PM EDT [facility] Historical Provider LAB BLOOD ORDERABLES Fi nal Result [facility] [address] [phone] documented in this encounter Visit Diagnoses Not on filedocumented in this encounter
--- OUTSIDE RECORDS SUMMARY | 2024-08-03 17:06 | XMS_ITS | Encounter Summary ---
Author Organization [employer] Address [address] [place] [address] Care Team Providers Care Paper Handler Name Role Phone Clifford Newell Primary Care Provider + [phone] Encounter Details Date Type Department Care Team (Late st Contact Info) Description 05/06/2021 Transcribed Document [facility] [place] [place] Family Medicine [address] [place] [id number] ProviderAntoinette MD [address] [place] [id number] Social History Tobacco Use Types Packs/Day Years Used Date Smoking Tobacco: Never Assessed Comments Unknown Sex and Gender Information Value Date Recorded Sex Assigned at Not on file Legal Sex Female 10:12 AM CDT Gender Identity Not on file Sexual Orientation Not on file documented as of this encounter Miscellaneous Notes * [employer]ner Conversion Note - Antoinette ProviderMD - 05/06/2021 12:46 PM CDT Pre Procedure Adult Entered On: 05/06/2021 12:53 EDT Performed On: 05/06/2021 12:46 EDT by Jerry Carpio RN Height and Weight, Clinical Dosing Height Source : Stated Height Entry Format : [place] Height, Feet : 5 ft(Converted to: 152 cm, 60 Inch) Height, Inches : 9 Inch(Converted to: 0 ft 9 Inch, 22.86 cm) Clinical Height : 175.26 cm Weight Source : Standing scale Weight Entry Format : [place] Clinical Dosing Weight : 108.64 kg Weight, Pounds : 239 lb Body Surface Area (BSA) : 2.23 m2 Body Mass Index : 35.4 kg/m2 (HI) [place] Body Weight : 66 kg Jerry Carpio RN - 05/06/2021 12:46 EDT Health Histories Smoking Status : Never (less than 100 in lifetime; none in last 30 days) Smokeless Tobacco Status : Never Implant/Device Type, Shopping Inspector and Model : port a cath rt chest wall Jerry Carpio RN - 05/06/2021 12:46 EDT Social History (As Of: 05/06/2021 12:53:38 EDT) Tobacco: Former smoker, quit more than 30 days ago Smoking Status. Packs/Tins Daily: .5. Last Used: never smoked regularly. (Last Updated: 04/12/2019 06:20:31 EDT by SANGEETA CHUN RN) Alcohol: Alcohol Use History No. (Last Updated: 12/01/2019 07:24:13 EDT by BARRETT TAPIA, KOKI) Substance Abuse: Drug Use Hx: No. (Last Updated: 12/01/2019 07:24:17 EDT by BARRETT TAPIA RN) Infectious Disease History Has the patient ever been tested for COVID-19? : Yes, Patient stated results Negative Date of COVID-19 test known? : Yes Date of COVID-19 Test : 05/05/2021 EDT Does patient have symptoms of COVID-19? : No COVID19 Screening : No Experiencing Infectious Disease Symptoms : No symptoms Physical contact outside [place] in the last 30 days : No Infectious Disease History : Influenza Tuberculosis Symptoms : None Jerry Carpio RN - 05/06/2021 12:46 EDT COVID19 PreProcedure Screening Is this an Emergent or Add on Procedure? : No Date PreProcedure COVID-19 test known? : Yes Date of PreProcedure COVID-19 : 05/05/2021 EDT Has patient been isolated since the test : No Exposed to COVID19 symptoms since test? : No Jerry Carpio RN - 05/06/2021 12:46 EDT Anesthesia/Transfusion History Family History of Anesthesia Reaction : No prior transfusion(s) Blood Transfusion Acceptable to Patient : Yes Transfusion History : Prior anesthesia reaction Type of Anesthesia Reaction : Excessive somnolence Family History of Anesthesia Reaction : None Jerry Carpio RN - 05/06/2021 12:46 EDT Functional Assessment Living Situation : Home Current Home Treatments : CPAP Jerry Carpio RN - 05/06/2021 12:46 EDT [place] Suicide Severity Rating Scale (C-SSRS) CSSRS Past Month Wish to be : No CSSRS Past Month Suicidal Thoughts : No CSSRS Lifetime Suicide Behavior : No Suicide Severity Rating Score : 0 Suicide Severity Rating : No Additional Care Required at this time Thoughts of Harming/Killing Others : No Jerry Carpio RN - 05/06/2021 12:46 EDT Psychosocial History Do You Have a History of the Following? : Anxiety Currently in Unsafe Situation : No Jerry Carpio RN - 05/06/2021 12:46 EDT Advance Directive Patient has Advance Directive *Q : No, patient refuses Advance Directive information Jerry Carpio RN - 05/06/2021 12:46 EDT General Info Support Person/Pt Rep Name : Lyudmila Sutherland - friend Want Family/Rep/Phys Notified of Admit : No Emergency Contact #1 : Lyudmila Sutherland Emergency Contact #1 Emergency Contact #1 Relationship : friend Emergency Contact #2 : Thomas Bailey Emergency Contact #2 Emergency Contact #2 Relationship : son Primary Language : Arabic Preferred Communication Mode : Verbal Communication Barrier : None Restaurant Line Server Needed : Jerry Cabrera RN - 05/06/2021 12:46 EDT Sleep Apnea Risk Assmt BiPAP/CPAP Ordered for Home Use : Yes Hx of Obstructive Sleep Apnea Diagnosis : Yes BiPAP/CPAP Used at Home : Yes Age over 50 Years Old : Yes Gender Male : No Jerry Carpio RN - 05/06/2021 12:46 EDT Giuseppe Scale [place] Sensory Perception : Slightly limited [place] Moisture : Rarely moist [place] Activity : Walks occasionally [place] Mobility : No limitation [place] Nutrition : Adequate [place] Friction and Shear : No apparent problem [place] Score : 20 Jerry Carpio RN - 05/06/2021 12:46 EDT Fall Risk Scales ABCs Fall Injury Risk Identification : Coagulation ABC Fall Injury Risk : Moderate to high injury risk DANIELS Hx Falls Immediate/Within 3 Months : No Daniels Secondary Diagnosis : Yes DANIELS Use of Ambulatory Aid : None DANIELS IV Therapy or IV Access : Yes Daniels Gait/Transferring : Normal, bedrest, immobile Daniels Mental Status : Oriented to own ability Daniels Fall Risk Score : 35 DANIELS Fall Scale Risk Level : 25-45 Medium Risk [place] Fall Interventions : Adequate lighting, Assistive devices within reach, Bed in low position, Call device within reach, Fall prevention handout/education per facility policy, Hourly comfort/safety rounds, Non-slip footwear, Personal items within reach, Reinforced to call for assistance before getting out of bed, Room free of clutter/spills, Upper side-rails up, Wheels locked, Wires/Cords secured Jerry Carpio RN - 05/06/2021 12:46 EDT Valuables and Belongings Valuables and Belongings : Clothing, Personal devices, Personal items, No comfort items, No jewelry, No assistive devices, No respiratory devices, No medications Clothing : Common streetwear Clothing Disposition : With patient Personal Device Disposition : With patient Personal Devices : Glasses Personal Items : Cell phone, Wallet Personal Items Disposition : Declines to send to security/safe, Other: with friend Jerry Carpio RN - 05/06/2021 12:46 EDT Isabel Coma Isabel Best Motor Response : Obey commands [place] Best Verbal Response : Oriented [place] Eye Opening Response : Spontaneous Isabel Coma Score : 15 Jerry Carpio RN - 05/06/2021 12:46 EDT Electronically signed by [facility] Conversion Senior Teradata Developer Cerner at 01/08/2023 4:30 PM CDT documented in this encounter Plan of Treatment Not on file documented as of this encounter Visit Diagnoses Not on filedocumented in this encounter Care Teams Paper Handler Relationship Specialty Start Date End Date Clifford Newell PA [address] [place] [address] [place] [address] PCP - General Physician Rod Cup Filler 10/14/23 documented as of this encounter
--- OUTSIDE RECORDS SUMMARY | 2024-08-03 17:06 | XMS_ITS | Encounter Summary ---
Author Organization [employer] Address [address] [place] [address] Care Team Providers Care Medication Aid Name Role Phone Unavailable Primary Care Provider Unavailabl e Encounter Details Date Type Department Care Team (Late st Contact Info) Description 02/13/2020 Historic Encounter [address] [address] Provider [facility] Historical Social History Tobacco Use Types Packs/Day [...] LIGHT CHAINS GAMMOPATHY PNL, SENDOUT ([facility] BKR DATA CONV) Routine 02/13/2020 11:22 AM EDT CMP COMPREHENSIVE METABOLIC PANEL ([facility] BK DATA CONV) Routine 02/13/2020 11:22 AM EDT documented in this encounter Results * (ABNORMAL) CMP COMPREHENSIVE METABOLIC PANEL ([facility] BKR DATA CONV) (02/13/2020 11:22 AM EDT) Sodium Level 144 136 - 146 mmol/L 02/13/2020 11:01 PM EDT Potassium Level 3.8 3.5 - 5.1 mmol/L 02/13/2020 11:01 PM EDT Chloride Level 109 102 - 112 mmol/L 02/13/2020 11:01 PM EDT Carbon Dioxide Level 26 21 - 32 mmol/L 02/13/2020 11:01 PM EDT Anion Gap 13 9 - 20 02/13/2020 11:01 PM EDT Calcium Level 9.2 8.5 - 10.1 mg/dL 02/13/2020 11:01 PM EDT Glucose Level 103 74 - 106 mg/dL 02/13/2020 11:01 PM EDT Comment: [place] has become aware of sulfasalazine and sulfapyridine [...] administration of the drug. Blood Urea Nitrogen 15 7 - 22 mg/dL 02/13/2020 11:01 PM EDT Creatinine Level 0.79 0.55 - 1.02 mg/dL 02/13/2020 11:01 PM EDT Bun/Creatinine 19.0 8.0 - 20.0 02/13/2020 11:01 PM EDT Albumin Level 3.3(L) 3.4 - 5.0 Gram/dL 02/13/2020 11:01 PM EDT Protein, Total 6.6 6.4 - 8.2 Gram/dL 02/13/2020 11:01 PM EDT A/G Ratio 1.0(L) 1.1 - 2.5 02/13/2020 11:01 PM EDT Alk Phos 65 27 - 136 Units/Lit er 02/13/2020 11:01 PM EDT ALT 23 12 - 78 Units/Lit er 02/13/2020 11:01 PM EDT Comment: [place] has become aware of sulfasalazine and sulfapyridine [...] AST 19 5 - 37 Units/Lit er 02/13/2020 11:01 PM EDT Comment: [place] has become aware of sulfasalazine and sulfapyridine [...] Bilirubin, Total 0.5 0.2 - 1.3 mg/dL 02/13/2020 11:01 PM EDT Comment: Total bilirubin results may be falsely elevated in patients undergoing treatment with eltrombopag (Promacta). Results should be correlated to clinical symptomology and additional laboratory testing including other markers for liver function, e.g., alanine aminotransferase, aspartate aminotransferase, alkaline phosphatase, and/or lactate dehydrogenase. Globulin 3.3 1.5 - 4.5 Gram/dL 02/13/2020 11:01 PM EDT eGFR >60 >=60 mL/min/1. 73m2 02/13/2020 11:01 PM EDT Comment: GFR <60 suggests chronic kidney disease, if found over 3 month period. GFR <15 indicates renal failure. eGFR NonAfrican >60 >=60 mL/min/1. 73m2 02/13/2020 11:01 PM EDT Comment: GFR <60 suggests chronic kidney disease, if found over 3 month period. GFR <15 indicates renal failure. Blood 02/13/2020 11:2 2 AM EDT 02/13/2020 10:32 PM EDT [facility] Historical Provider LAB BLOOD ORDERABLES Fi nal Result [facility] [address] [phone] * (ABNORMAL) FREE LIGHT CHAINS GAMMOPATHY PNL, SENDOUT ([facility] BKR DATA CONV) (02/13/2020 11:22 AM EDT) [place] FLC 5.1 3.3 - 19.4 02/15/2020 9:11 PM EDT Lambda FLC 3.4(L) 5.7 - 26.3 02/15/2020 9:11 PM EDT [place]/Lambda FLC Ratio 1.50 0.26 - 1.65 02/15/2020 9:11 PM EDT Comment: Performed At: [facility] [address] [id number] Odin Stevens PhD Ph:[phone] Protein, Total, Serum 6.1 6.0 - 8.5 g/dL 02/15/2020 9:11 PM EDT Albumin, Serum 3.4 2.9 - 4.4 g/dL 02/15/2020 9:11 PM EDT [employer]. Interp. Comment 2019 9:11 PM EDT Comment: Immunofixation shows IgG monoclonal protein with kappa light chain specificity. Please note that samples from patients receiving DARZALEX(R) (daratumumab) treatment can appear as an IgG kappa and mask a complete response. If this patient is receiving GINNY, this RALPH assay interference can be removed by ordering test number [id number]- Immunofixation, Daratumumab- Specific, Serum and submitting a new sample for testing or by calling the lab to add this test to the current sample. Immunofixation shows IgA monoclonal protein with lambda light chain specificity. SPE Alpha1 Globulin 0.2 0.0 - 0.4 g/dL 02/15/2020 9:11 PM EDT SPE Alpha 2 Globulin 0.9 0.4 - 1.0 g/dL 02/15/2020 9:11 PM EDT SPE Beta Globulin 1.2 0.7 - 1.3 g/dL 02/15/2020 9:11 PM EDT SPE Gamma Globulin 0.4 0.4 - 1.8 g/dL 02/15/2020 9:11 PM EDT MSpike Comment: Not Observed g/dL 02/15/2020 9:11 PM EDT Comment: MONOCLONAL IGG KAPPA = 0.1 G/DL DUE TO THE SMALL QUANTITY OF MONOCLONAL IGA LAMBDA, UNABLE TO QUANTITATE THE M-SPIKE. SPE Globulin, Total 2.7 2.2 - 3.9 g/dL 02/15/2020 9:11 PM EDT SPE A/G Ratio 1.3 0.7 - 1.7 02/15/2020 9:11 PM EDT SPE Note Comment 02/15/2020 9:11 PM EDT Comment: Protein electrophoresis scan will follow via computer, mail, or tobacco sprayer delivery. IgA 190 87 - 352 mg/dL 02/15/2020 9:11 PM EDT IgG 489(L) 586 - 1602 mg/dL 02/15/2020 9:11 PM EDT IgM 17(L) 26 - 217 mg/dL 02/15/2020 9:11 PM EDT Comment:Result confirmed on concentration. Blood 02/13/2020 11:2 2 AM EDT 02/13/2020 10:32 PM EDT [facility] Historical Provider LAB BLOOD ORDERABLES Fi nal Result [facility] 1 [place], [place] [address] [phone] documented in this encounter Visit Diagnoses Not on filedocumented in this encounter
--- OUTSIDE RECORDS SUMMARY | 2024-08-03 17:06 | XMS_ITS | Encounter Summary ---
Author Organization [employer] Address [address] [place] [address] Care Team Providers Care Conservation Officer Name Role Phone Unavailable Primary Care Provider Unavailabl e Encounter Details Date Type Department Care Team (Late st Contact Info) Description 06/17/2021 Historic Encounter [address] [address] Provider[facility] Historical Social History Tobacco [...] Diagnosis Comments CBC W/ AUTO DIFF Routine 06/17/2021 11:5 5 AM EDT RHEUMATOID FACTOR(SENDOUT) Routine 06/17/2021 11:55 AM EDT CYCLIC CITRULLINATED PEPTIDE AB, IGG(SENDOUT) Routine 06/17/2021 11:55 AM EDT ANTINUCLEAR ANTIBODY (DANIEL), HEP-2, IGG(SENDOUT) Routine 06/17/2021 11:55 AM EDT ANKYLOSING SPONDYLITIS (HLAB27)(SENDOUT) Routine 06/17/2021 11:55 AM EDT LYME AB SCREEN Routine 06/17/2021 11:55 AM EDT C-REACTIVE PROTEIN Routine 06/17/2021 11 :55 AM EDT SEDIMENTATION RATE Routine 06/17/2021 11 :55 AM EDT documented in this encounter Results * LYME AB SCREEN (06/17/2021 11:55 AM EDT) [facility] Lyme IgG and IgM Ab <0.91 0.00 - 0.90 [facility] Comment: Negative ? <0.91 Equivocal ??0.91 - 1.09 Positive ? >1.09 Performed at: ?? - [facility] ??[id number] Product Support Engineer: Rodney Newby PhD, Phone: ??[phone] 06/17/2021 11:5 5 AM EDT Generic Provider Historical PATHOLOGY/CYTOLOGY O RDERABLES Final Result Performing Organization Address [facility] Co de Phone Number [facility] [address] [phone] * (ABNORMAL) C-Reactive Protein (06/17/2021 11:55 AM EDT) [facility] CRP < 0.2(L) <1.0 mg/dL [facility] 06/17/2021 11:5 5 AM EDT us [facility] Historical Provider LAB BLOOD ORDERABLES Fi nal Result Performing Organization Address [facility]/ZIP Co de Phone Number [facility] [address] [phone] * (ABNORMAL) Antinuclear Antibody (DANIEL), HEp-2, IgG(SENDOUT) (06/17/2021 11:55 AM EDT) Speckled Pattern 1:80 >. [facility] Comment:ICAP nomenclature: A C-2,4,5,29 Anti-Nuclear Ab (DANIEL), IgG by AYSHA Positive(A) >. [facility] Comment: Negative ?? <1:80 Borderline ??1:80 Positive ?? >1:80 DANIEL Interpretive Comment Comment >. [facility] Comment: For more information about Hep-2 cell patterns use ANApatterns.org, the official website for the International Consensus on Antinuclear Antibody (DANIEL) Patterns (ICAP). A positive DANIEL result may occur in healthy individuals (low titer) or be associated with a variety of diseases. ??See interpretation chart which is not all inclusive: Pattern ?Antigen Detected ??Suggested Disease Association ? Homogeneous ??DNA(ds,ss), ? SLE - High titers Nucleosomes, Histones ?Drug-induced SLE ? Speckled ? Sm, [employer], SCL-70, ??SLE,MCTD,PSS (diffuse form), SS-A/SS-B ? Sjogrens ? Nucleolar ?SCL-70, PM-1/SCL ??High titers Scleroderma, PM/DM ? Centromere ?? Centromere ?PSS (limited form) w/Crest syndrome variable ? Nuclear Dot ??[id number] ??Primary Biliary Cirrhosis ? Nuclear ?GP210, ?Primary Biliary Cirrhosis Membrane ? tammy A,B,C ? Performed at: ??CB - [facility] [address] ??[id number] Product Support Engineer: Rodney Newby PhD, Phone: ??[phone] 06/17/2021 11:5 5 AM EDT us [facility] Historical Provider LAB BLOOD ORDERABLES Fi nal Result [facility] 1 [place] [address], [facility] [phone] * Rheumatoid Factor(SENDOUT) (06/17/2021 11:55 AM EDT) Pathologist [facility] Rheumatoid Factor 10.2 0.0 - 13.9 [facility] Comment: Performed at: ?? - [facility] ??[id number] Product Support Engineer: Rodney Newby PhD, Phone: ??[phone] 06/17/2021 11:5 5 AM EDT [facility] Provider LAB BLOOD ORDERABLES Fi nal Result Performing Organization Address [facility] de Phone Number [facility] [address] [phone] * Cyclic Citrullinated Peptide Ab, IgG(SENDOUT) (06/17/2021 11:55 AM EDT) [facility] Cyclic Citrullinated Peptide Ab, IgG 5 0 - 19 [facility] Comment: Negative ? <20 Weak positive ?20 - 39 Moderate positive ??40 - 59 Strong positive ?>59 Performed at: ??[facility] ??[id number] Product Support Engineer: Rolando Foster MD, Phone: ??[phone] 06/17/2021 11:5 5 AM EDT [facility] Provider LAB BLOOD ORDERABLES Fi nal Result Performing Organization Address [facility] Co de Phone Number [facility] [address] [phone] * Ankylosing Spondylitis (HLAB27)(SENDOUT) (06/17/2021 11:55 AM EDT) [facility] HLA B27 Loc Negative >. [facility] Comment: HLA-B*27 Negative B27 allele interpretation for all loci based on IMGT/HLA database version 3.44 This test was developed and its performance characteristics determined by [facility]. ??It has not been cleared or approved by the Food and Drug Administration. [facility] CLIA ID Number [id number] This test was performed using PCR (Polymerase Chain Reaction)/SSOP (Sequence Specific Oligonucleotide Probes) technique. ??SBT (Sequence Based Typing) and/or SSP (Sequence Specific Primers) may be used as supplemental methods when necessary. ??Please contact HLA Customer Service at if you have any questions. Director of HLA Laboratory Dr Андрей Bañuelos, PhD Performed at: ??2Q - [facility] [address] [place] [address] ??[id number] Product Support Engineer: Андрей Bañuelos PhD, Phone: ??[phone] 06/17/2021 11:5 5 AM EDT [facility] Provider LAB BLOOD ORDERABLES Fi nal Result Performing Organization Address [facility] Co de Phone Number [facility] [address] [phone] * Sedimentation rate (06/17/2021 11:55 AM EDT) Sed Rate 13 0 - 30 mm/Hr [facility] 06/17/2021 11:5 5 AM EDT [facility] LAB BLOOD ORDERABLES Fi nal Result Performing Organization Address [facility] Co de Phone Number [facility] [address] [phone] * (ABNORMAL) CBC with automated diff (06/17/2021 11:55 AM EDT) MCH 32.6(H) 25.6 - 32.2 pg [facility] % Lymphs 41.3 19.3 - 51.7 % [facility] Immature Granulocytes-Re lative 0.0 0.0 - 0.5 % [facility] Hemoglobin 12.5 11.2 - 15.7 [facility] MCHC 32.4 32.2 - 35.5 [facility] % Monos 11.7 4.7 - 12.5 % [facility] RDW 12.9 11.7 - 14.4 % [facility] % Eos 6.3(H) 0.7 - 5.8 % [facility] WBC 2.4(<) 4.0 - 10.0 [facility] Comment: RESULTS RERAN, CALLED TO SULEIMAN [place] AND READ BACK, BY RICH.BKW 06/17/21 at 1322. Hematocrit 38.6 34.1 - 44.9 % [facility] Platelets 95(L) 182 - 369 [facility] % Baso 1.7(H) 0.1 - 1.2 % [facility] RBC 3.83(L) 3.93 - 5.22 [facility] MCV 101(H) 79 - 95 [facility] % Neutros 39.0 34.0 - 71.1 [facility] 06/17/2021 11:5 5 AM EDT us [facility] Historical Provider LAB BLOOD ORDERABLES Fi nal Result [facility] [address] [phone] documented in this encounter Visit Diagnoses Not on filedocumented in this encounter
--- OUTSIDE RECORDS SUMMARY | 2024-08-03 17:06 | XMS_ITS | Encounter Summary ---
Author Organization [employer] Address [address] [place] [address] Care Team Providers Care Meat Soaker Name Role Phone Clifford Newell Primary Care Provider + [phone] Encounter Details Date Type Department Care Team (Late st Contact Info) Description 12/01/2019 Transcribed Document [facility] Family Medicine [address] [place] [address] ProviderAntoinette MD [address] [place] [id number] Social History Tobacco Use Types Packs/Day Years Used Date Smoking Tobacco: Never Assessed Comments Unknown Sex and Gender Information Value Date Recorded Sex Assigned at Not on file Legal Sex Female 10:12 AM CDT Gender Identity Not on file Sexual Orientation Not on file documented as of this encounter Miscellaneous Notes * Cerner Conversion Note - Antoinette ProviderMD - 12/01/2019 7:17 AM CDT Pre Procedure Adult Entered On: 12/01/2019 7:28 EDT Performed On: 12/01/2019 7:17 EDT by BARRETT TAPIA RN Height and Weight, Clinical Dosing Height Source : Stated Height Entry Format : [place] Height, Feet : 5 ft(Converted to: 152 cm, 60 Inch) Height, Inches : 8 Inch(Converted to: 0 ft 8 Inch, 20.32 cm) Clinical Height : 172.72 cm Weight Source : Standing scale Weight Entry Format : [place] Clinical Dosing Weight : 122.73 kg Weight, Pounds : 270 lb Body Surface Area (BSA) : 2.32 m2 Body Mass Index : 41.1 kg/m2 (>HHI) [place] Body Weight : 63 kg BARRETT TAPIA RN - 12/01/2019 7:17 EDT Health Histories Smoking Status : Former smoker, quit more than 30 days ago Smokeless Tobacco Status : Never BARRETT TAPIA RN - 12/01/2019 7:17 EDT Social History (As Of: 12/01/2019 07:28:07 EDT) Tobacco: Former smoker, quit more than 30 days ago Smoking Status. Packs/Tins Daily: .5. Last Used: never smoked regularly. (Last Updated: 04/12/2019 06:20:31 EDT by SANGEETA CHUN RN) Alcohol: Alcohol Use History No. (Last Updated: 12/01/2019 07:24:13 EDT by BARRETT TAPIA, KOKI) Substance Abuse: Drug Use Hx: No. (Last Updated: 12/01/2019 07:24:17 EDT by BARRETT TAPIA RN) Infectious Disease History COVID19 Screening : No Physical contact outside [place] in the last 30 days : No Infectious Disease History : Influenza Tuberculosis Symptoms : None BARRETT TAPIA RN - 12/01/2019 7:17 EDT Anesthesia/Transfusion History Family History of Anesthesia Reaction : No prior transfusion(s) Transfusion History : Prior anesthesia reaction Type of Anesthesia Reaction : Excessive somnolence Family History of Anesthesia Reaction : None BARRETT TAPIA RN - 12/01/2019 7:17 EDT Functional Assessment Living Situation : Home Patient Lives With : Adult Child/Children Current Home Treatments : CPAP BARRETT TAPIA RN - 12/01/2019 7:17 EDT [place] Suicide Severity Rating Scale (C-SSRS) CSSRS Past Month Wish to be : No CSSRS Past Month Suicidal Thoughts : No CSSRS Lifetime Suicide Behavior : No Suicide Severity Rating Score : 0 Suicide Severity Rating : No Additional Care Required at this time BARRETT TAPIA RN - 12/01/2019 7:17 EDT Psychosocial History Do You Have a History of the Following? : Anxiety Currently in Unsafe Situation : No BARRETT TAPIA RN - 12/01/2019 7:17 EDT Advance Directive Patient has Advance Directive *Q : No, patient refuses Advance Directive information BARRETT TAPIA RN - 12/01/2019 7:17 EDT Teaching/Learning Assessment Barriers To Learning : None evident Individuals Taught : Patient, Child Readiness to Learn : Cooperative Baseline Knowledge of Topic : Limited Readiness to Learn : Explanation Learning Style Preferences Patient : Verbal explanation Learning Style Preferences Family : Verbal explanation BARRETT TAPIA RN - 12/01/2019 7:17 EDT Education Topics, Periop Preadmission Perioperative Education Grid Arrival Time/Place : Verbalizes understanding CAUTI : Verbalizes understanding Central Lines : Verbalizes understanding CHG Preoperative Bathing/Cloths : Verbalizes understanding Falls : Verbalizes understanding Incentive Spirometry : Verbalizes understanding Infection Control : Verbalizes understanding IV's : Verbalizes understanding NPO Status/Directions : Verbalizes understanding Pain Management : Verbalizes understanding Postoperative Care Preparations : Verbalizes understanding Preprocedure Preparations : Verbalizes understanding Preprocedure Tests/Labs : Verbalizes understanding Remove Body Piercings : Verbalizes understanding Responsible Adult : Verbalizes understanding SNE's : Verbalizes understanding Take/Hold Medications Pre-Procedure : Verbalizes understanding Other : Verbalizes understanding BARRETT TAPIA RN - 12/01/2019 7:17 EDT General Info Arrived From : Home Mode of Arrival on Unit : Ambulatory Patient Arrival Date/Time : 12/01/2019 7:02 EDT Legal Guardian : Daughter Want Family/Rep/Phys Notified of Admit : No Emergency Contact #1 : Laura Bailey Emergency Contact #1 Emergency Contact #1 Relationship : daughter Emergency Contact #2 : na Emergency Contact #2 Phone Number : na Emergency Contact #2 Relationship : na Information Obtained From : Patient Primary Language : Spanish Preferred Communication Mode : Verbal Communication Barrier : None BARRETT TAPIA RN - 12/01/2019 7:17 EDT Vital Measurements Temperature Source : Temporal artery scanning Temperature Mode : Fahrenheit Temperature, Fahrenheit : 97.6 Deg F Clinical Temperature, C : 36.4 Deg C Peripheral Pulse Rate : 64 bpm Systolic Blood Pressure : 145 mmHg (HI) Diastolic Blood Pressure : 83 mmHg Oxygen Saturation : 98 % Oxygen Therapy Mode : Room air BARRETT TAPIA RN - 12/01/2019 7:17 EDT Sleep Apnea Risk Assmt BiPAP/CPAP Ordered for Home Use : Yes Hx of Obstructive Sleep Apnea Diagnosis : Yes BiPAP/CPAP Used at Home : Yes Age over 50 Years Old : Yes Gender Male : No BARRETT TAPIA RN - 12/01/2019 7:17 EDT Giuseppe Scale Giuseppe Sensory Perception : No impairment Giuseppe Moisture : Rarely moist Giuseppe Activity : Walks frequently Giuseppe Mobility : No limitation Giuseppe Nutrition : Excellent Giuseppe Friction and Shear : No apparent problem Giuseppe Score : 23 BARRETT TAPIA RN - 12/01/2019 7:17 EDT Oxygen Therapy Oxygen Therapy Mode : Room air BARRETT TAPIA RN - 12/01/2019 7:17 EDT Pain Assessment Pain Assessment : Initial assessment Pain Scale Used : 0-10 Scale BARRETT TAPIA RN - 12/01/2019 7:17 EDT Fall Risk Scales ABCs Fall Injury Risk Identification : None DANIELS Hx Falls Immediate/Within 3 Months : Yes Daniels Secondary Diagnosis : No DANIELS Use of Ambulatory Aid : None DANIELS IV Therapy or IV Access : Yes Daniels Gait/Transferring : Normal, bedrest, immobile Daniels Mental Status : Oriented to own ability Daniels Fall Risk Score : 45 DANIELS Fall Scale Risk Level : 25-45 Medium Risk [place] Fall Interventions : Adequate lighting, Bed in low position, Call device within reach, Frequent orientation to call device, Frequent orientation to surroundings, Non-slip footwear, Personal items within reach, Room free of clutter/spills, Wheels locked BARRETT TAPIA RN - 12/01/2019 7:17 EDT Valuables and Belongings Valuables and Belongings : Clothing, Personal devices, Personal items Clothing : Common streetwear Clothing Disposition : Bedside, With family Personal Device Disposition : With patient Personal Devices : Glasses Personal Items : Purse Personal Items Disposition : Bedside, With family BARRETT TAPIA RN - 12/01/2019 7:17 EDT Pain Scale Intensity : 0 BARRETT TAPIA RN - 12/01/2019 7:17 EDT Image 4 - Images currently included in the form version of this document have not been included in the text rendition version of the form. documented in this encounter Plan of Treatment Not on file documented as of this encounter Visit Diagnoses Not on filedocumented in this encounter Care Teams Meat Soaker Relationship Specialty Start Date End Date Cliffodr Newell PA [address] [place] [address] [place] [address] PCP - General Physician Snowboard Instructor 10/14/23 documented as of this encounter
--- OUTSIDE RECORDS SUMMARY | 2024-08-03 17:06 | XMS_ITS | Encounter Summary ---
Author Organization [employer] Address [address] [place] [address] Care Team Providers Care Family Welfare Social Work Professor Name Role Phone Unavailable Primary Care Provider Unavailabl e Encounter Details Date Type Department Care Team (Late st Contact Info) Description 09/05/2020 Historic Encounter [address] [phone] Provider, [facility] Historical Social History Tobacco [...] Comments FREE LIGHT CHAINS GAMMOPATHY PNL, SENDOUT ([facility] BKR DATA CONV) Routine 09/05/2020 1:35 PM EST CBC W/ AUTO DIFF ([facility] BKR DATA CONV) Routine 09/05/2020 1:35 PM EST AUTOMATED DIFFERENTIAL ([facility] BKR DATA CONV) Routine 09/05/2020 1:35 PM EST BMP BASIC METABOLIC PANEL ([facility] BKR DATA CONV) Routine 09/05/2020 1:35 PM EST documented in this encounter Results * (ABNORMAL) AUTOMATED DIFFERENTIAL ([facility] BKR DATA CONV) (09/05/2020 1:35 PM EST) Neut% 43.3(L) 45.0 - 80.0 % 09/05/2020 6:46 PM EST Lymph% 43.1 15.0 - 45.0 % 09/05/2020 6:46 PM EST [place]% 10.7(H) 0.0 - 10.0 % 09/05/2020 6:46 PM EST Eos% 2.7 0.0 - 5.0 % 09/05/2020 6:46 PM EST Baso% 0.2 0.0 - 3.0 % 09/05/2020 6:46 PM EST Neut# 1.78(L) 2.00 - 8.80 K/uL 09/05/2020 6:46 PM EST Lymph# 1.77 0.70 - 5.50 K/uL 09/05/2020 6:46 PM EST [place]# 0.44 0.00 - 1.70 K/uL 09/05/2020 6:46 PM EST Eos# 0.11 0.00 - 0.80 K/uL 09/05/2020 6:46 PM EST Baso# 0.01 0.00 - 0.02 K/uL 09/05/2020 6:46 PM EST Blood 09/05/2020 1:35 PM EST 09/05/2020 6:40 PM EST Narrative [facility] - 09/05/2020 6:46 PM EST Added by Discern Expert us [facility] Historical Provider LAB BLOOD ORDERABLES Fi nal Result [facility] [address] [id number], [facility] [phone] * (ABNORMAL) CBC W/ AUTO DIFF ([facility] BKR DATA CONV) (09/05/2020 1:35 PM EST) Pathologist [facility] WBC 4.1(L) 4.5 - 12.5 x10(3)/uL 09/05/2020 6:46 PM EST RBC 3.45(L) 4.50 - 5.20 x10(3)/uL 09/05/2020 6:46 PM EST Hgb 11.8(L) 12.0 - 16.0 g/dL 09/05/2020 6:46 PM EST Hct 35.9(L) 36.0 - 46.0 % 09/05/2020 6:46 PM EST MCV 104.1(H) 80.0 - 100.0 fL 09/05/2020 6:46 PM EST MCH 34.2(H) 26.0 - 34.0 pg 09/05/2020 6:46 PM EST MCHC 32.9 31.0 - 37.0 g/dL 09/05/2020 6:46 PM EST RDW 13.5 12.0 - 16.8 % 09/05/2020 6:46 PM EST Platelet Count 112(L) 140 - 440 x10(3)/uL 09/05/2020 6:47 PM EST MPV 9.8 7.4 - 10.4 fL 09/05/2020 6:47 PM EST Blood 09/05/2020 1:35 PM EST 09/05/2020 6:40 PM EST [facility] Historical Provider LAB BLOOD ORDERABLES nal Result [facility] [address] [phone] * (ABNORMAL) BMP BASIC METABOLIC PANEL ([facility] BKR DATA CONV) (09/05/2020 1:35 PM EST) Glucose Level 91 74 - 106 mg/dL 09/05/2020 10:33 PM EST Comment: [employer] has become aware of sulfasalazine and sulfapyridine [...] administration of the drug. Blood Urea Nitrogen 8 7 - 22 mg/dL 09/05/2020 10:33 PM EST Creatinine Level 0.79 0.55 - 1.02 mg/dL 09/05/2020 10:33 PM EST Sodium Level 146 136 - 146 mmol/L 09/05/2020 10:33 PM EST Potassium Level 3.6 3.5 - 5.1 mmol/L 09/05/2020 10:33 PM EST Chloride Level 115(H) 102 - 112 mmol/L 09/05/2020 10:33 PM EST Carbon Dioxide Level 26 21 - 32 mmol/L 09/05/2020 10:33 PM EST Anion Gap 9 9 - 20 09/05/2020 10:33 PM EST Calcium Level 9.1 8.5 - 10.1 mg/dL 09/05/2020 10:33 PM EST Bun/Creatinine 10.1 8.0 - 20.0 09/05/2020 10:33 PM EST eGFR NonAfrican >60 >=60 mL/min/1. 73m2 09/05/2020 10:33 PM EST Comment: GFR <60 suggests chronic kidney disease, if found over 3 month period. GFR <15 indicates renal failure. eGFR >60 >=60 mL/min/1. 73m2 09/05/2020 10:33 PM EST Comment: GFR <60 suggests chronic kidney disease, if found over 3 month period. GFR <15 indicates renal failure. Blood 09/05/2020 1:35 PM EST 09/05/2020 10:10 PM EST [facility] Historical Provider LAB BLOOD ORDERABLES Fi nal Result [facility] [address] [id number] [phone] * (ABNORMAL) FREE LIGHT CHAINS GAMMOPATHY PNL, SENDOUT ([facility] BKR DATA CONV) (09/05/2020 1:35 PM EST) [place] FLC 5.1 3.3 - 19.4 09/26/2020 4:11 PM EST Lambda FLC 2.9(L) 5.7 - 26.3 09/26/2020 4:11 PM EST [place]/Lambda FLC Ratio 1.76(H) 0.26 - 1.65 09/26/2020 4:11 PM EST Comment: Performed At: [facility] [id number] Odin Stevens PhD Ph:[phone] Protein, Total, Serum 5.1(L) 6.0 - 8.5 g/dL 09/26/2020 4:11 PM EST Albumin, Serum 3.2 2.9 - 4.4 g/dL 09/26/2020 4:11 PM EST [employer]. Interp. Comment: 2020 4:11 PM EST Comment:RALPH SHOWS ASYMMETRIC AL IGA SUGGESTIVE OF A MONOCLONAL PROTEIN. SPE Alpha1 Globulin 0.2 0.0 - 0.4 g/dL 09/26/2020 4:11 PM EST SPE Alpha 2 Globulin 0.6 0.4 - 1.0 g/dL 09/26/2020 4:11 PM EST SPE Beta Globulin 0.7 0.7 - 1.3 g/dL 09/26/2020 4:11 PM EST SPE Gamma Globulin 0.4 0.4 - 1.8 g/dL 09/26/2020 4:11 PM EST MSpike Not Observed Not Observed g/dL 09/26/2020 4:11 PM EST SPE Globulin, Total 1.9(L) 2.2 - 3.9 g/dL 09/26/2020 4:11 PM EST SPE A/G Ratio 1.7 0.7 - 1.7 09/26/2020 4:11 PM EST SPE Note Comment 09/26/2020 4:11 PM EST Comment: Protein electrophoresis scan will follow via computer, mail, or shot peening operator delivery. PE PDF see report 10/01/2020 1:19 PM EST Comment:Missing Attachment R eference Lab Report Can be viewed in source system IgA 29(L) 87 - 352 mg/dL 09/26/2020 4:11 PM EST Comment:Result confirmed on concentration. IgG 423(L) 586 - 1602 mg/dL 09/26/2020 4:11 PM EST IgM 10(L) 26 - 217 mg/dL 09/26/2020 4:11 PM EST Comment:Result confirmed on concentration. Blood 09/05/2020 1:35 PM EST 09/05/2020 10:06 PM EST us Sle Historical Provider LAB BLOOD ORDERABLES Fi nal Result Performing Organization Address City/State/[facility] Co de Phone Number [facility] [address] [phone] documented in this encounter Visit Diagnoses Not on filedocumented in this encounter
--- OUTSIDE RECORDS SUMMARY | 2024-08-03 17:06 | XMS_ITS | Encounter Summary ---
Author Organization [employer] Address [address] [place] [address] Care Team Providers Care Glass Cut Off Supervisor Name Role Phone Unavailable Primary Care Provider Unavailabl e Encounter Details Date Type Department Care Team (Late st Contact Info) Description 08/16/2019 Historic Encounter [address] [phone] ProviderYoli Historical Social History Tobacco [...] [facility] Routine 09/11/2019 10:10 AM EST FREE LIGHT CHAINS GAMMOPATHY PNL, SENDOUT ([facility] BKR DATA CONV) Routine 08/16/2019 10:25 AM EST documented in this encounter Results * (ABNORMAL) FREE LIGHT CHAINS GAMMOPATHY PNL, SENDOUT ([facility] BKR DATA CONV) (09/11/2019 10:10 AM EST) [place] FLC 15.0 3.3 - 19.4 09/12/2019 9:10 PM EST Lambda FLC 14.7 5.7 - 26.3 09/12/2019 9:10 PM EST [place]/Lambda FLC Ratio 1.02 0.26 - 1.65 09/12/2019 9:10 PM EST Comment: Performed At: [facility] [id number] Odin Stevens PhD Ph:[phone] Protein, Total, Serum 6.4 6.0 - 8.5 g/dL 09/12/2019 9:10 PM EST Albumin, Serum 3.3 2.9 - 4.4 g/dL 09/12/2019 9:10 PM EST [employer]. Interp. Comment 2018 9:10 PM EST Comment: Immunofixation shows IgA monoclonal protein with lambda light chain specificity. SPE Alpha1 Globulin 0.2 0.0 - 0.4 g/dL 09/12/2019 9:10 PM EST SPE Alpha 2 Globulin 0.9 0.4 - 1.0 g/dL 09/12/2019 9:10 PM EST SPE Beta Globulin 1.5(H) 0.7 - 1.3 g/dL 09/12/2019 9:10 PM EST SPE Gamma Globulin 0.6 0.4 - 1.8 g/dL 09/12/2019 9:10 PM EST MSpike 0.7(H) Not Observed g/dL 09/12/2019 9:10 PM EST SPE Globulin, Total 3.1 2.2 - 3.9 g/dL 09/12/2019 9:10 PM EST SPE A/G Ratio 1.1 0.7 - 1.7 09/12/2019 9:10 PM EST SPE Note Comment 09/12/2019 9:10 PM EST Comment: Protein electrophoresis scan will follow via computer, mail, or fitness leader delivery. IgA 658(H) 87 - 352 mg/dL 09/12/2019 9:10 PM EST IgG 618(L) 700 - 1600 mg/dL 09/12/2019 9:10 PM EST IgM 29 26 - 217 mg/dL 09/12/2019 9:10 PM EST Blood 09/11/2019 10:1 0 AM EST 09/11/2019 7:19 PM EST [facility] Historical Provider LAB BLOOD ORDERABLES Fi nal Result [facility] [address] [phone] * (ABNORMAL) FREE LIGHT CHAINS GAMMOPATHY PNL, SENDOUT ([facility] BKR DATA CONV) (08/16/2019 10:25 AM EST) [place] FLC 11.0 3.3 - 19.4 08/18/2019 8:11 PM EST Lambda FLC 12.3 5.7 - 26.3 08/18/2019 8:11 PM EST [place]/Lambda FLC Ratio 0.89 0.26 - 1.65 08/18/2019 8:11 PM EST Comment: Performed At: [facility] [id number] Odin Stevens PhD Ph:[phone] Protein, Total, Serum 6.8 6.0 - 8.5 g/dL 08/18/2019 8:11 PM EST Albumin, Serum 3.4 2.9 - 4.4 g/dL 08/18/2019 8:11 PM EST [employer]. Interp. Comment 2018 8:11 PM EST Comment: Immunofixation shows IgA monoclonal protein with lambda light chain specificity. SPE Alpha1 Globulin 0.2 0.0 - 0.4 g/dL 08/18/2019 8:11 PM EST SPE Alpha 2 Globulin 0.9 0.4 - 1.0 g/dL 08/18/2019 8:11 PM EST SPE Beta Globulin 1.7(H) 0.7 - 1.3 g/dL 08/18/2019 8:11 PM EST SPE Gamma Globulin 0.6 0.4 - 1.8 g/dL 08/18/2019 8:11 PM EST MSpike 1.0(H) Not Observed g/dL 08/18/2019 8:11 PM EST SPE Globulin, Total 3.4 2.2 - 3.9 g/dL 08/18/2019 8:11 PM EST SPE A/G Ratio 1.1 0.7 - 1.7 08/18/2019 8:11 PM EST SPE Note Comment 08/18/2019 8:11 PM EST Comment: Protein electrophoresis scan will follow via computer, mail, or fitness leader delivery. IgA 1018(H) 87 - 352 mg/dL 08/18/2019 8:11 PM EST Comment: Results confirmed on dilution. IgG 589(L) 700 - 1600 mg/dL 08/18/2019 8:11 PM EST IgM 21(L) 26 - 217 mg/dL 08/18/2019 8:11 PM EST Comment:Result confirmed on concentration. Blood 08/16/2019 10:2 5 AM EST 08/16/2019 7:21 PM EST [facility] Historical Provider LAB BLOOD ORDERABLES Fi nal Result [facility] [address] [phone] documented in this encounter Visit Diagnoses Not on filedocumented in this encounter
--- OUTSIDE RECORDS SUMMARY | 2024-08-03 17:06 | XMS_ITS | Encounter Summary ---
Author Organization [email or web address] Address [address] [place] [address] Care Team Providers Care Lead Systems Analyst Name Role Phone Unavailable Primary Care Provider Unavailabl e Encounter Details Date Type Department Care Team (Late st Contact Info) Description 02/20/2020 Historic Encounter [address] [phone] Provider, [facility] Historical Social History Tobacco Use [...] Procedure Name Priority Date/Time Associated Diagnosis Comments CMP COMPREHENSIVE METABOLIC PANEL ([facility] BKR DATA CONV) Routine 02/20/2020 11:05 AM EDT documented in this encounter Results * (ABNORMAL) CMP COMPREHENSIVE METABOLIC PANEL ([facility] BKR DATA CONV) (02/20/2020 11:05 AM EDT) Sodium Level 140 136 - 146 mmol/L 02/20/2020 11:27 PM EDT Potassium Level 3.7 3.5 - 5.1 mmol/L 02/20/2020 11:27 PM EDT Chloride Level 107 102 - 112 mmol/L 02/20/2020 11:27 PM EDT Carbon Dioxide Level 29 21 - 32 mmol/L 02/20/2020 11:27 PM EDT Anion Gap 8(L) 9 - 20 02/20/2020 11:27 PM EDT Calcium Level 9.2 8.5 - 10.1 mg/dL 02/20/2020 11:27 PM EDT Glucose Level 101 74 - 106 mg/dL 02/20/2020 11:27 PM EDT Comment: [employer] has become aware of sulfasalazine and sulfapyridine [...] administration of the drug. Blood Urea Nitrogen 17 7 - 22 mg/dL 02/20/2020 11:27 PM EDT Creatinine Level 1.02 0.55 - 1.02 mg/dL 02/20/2020 11:27 PM EDT Bun/Creatinine 16.7 8.0 - 20.0 02/20/2020 11:27 PM EDT Albumin Level 3.6 3.4 - 5.0 Gram/dL 02/20/2020 11:27 PM EDT Protein, Total 7.2 6.4 - 8.2 Gram/dL 02/20/2020 11:27 PM EDT A/G Ratio 1.0(L) 1.1 - 2.5 02/20/2020 11:27 PM EDT Alk Phos 67 27 - 136 Units/Lit er 02/20/2020 11:27 PM EDT ALT 19 12 - 78 Units/Lit er 02/20/2020 11:27 PM EDT Comment: [employer] has become aware of sulfasalazine and sulfapyridine [...] prior to administration of the drug. AST 13 5 - 37 Units/Lit er 02/20/2020 11:27 PM EDT Comment: [employer] has become aware of sulfasalazine and sulfapyridine [...] to administration of the drug. Bilirubin, Total 1.0 0.2 - 1.3 mg/dL 02/20/2020 11:27 PM EDT Comment: Total bilirubin results may be falsely elevated in patients undergoing treatment with eltrombopag (Promacta). Results should be correlated to clinical symptomology and additional laboratory testing including other markers for liver function, e.g., alanine aminotransferase, aspartate aminotransferase, alkaline phosphatase, and/or lactate dehydrogenase. Globulin 3.6 1.5 - 4.5 Gram/dL 02/20/2020 11:27 PM EDT eGFR >60 >=60 mL/min/1. 73m2 02/20/2020 11:27 PM EDT Comment: GFR <60 suggests chronic kidney disease, if found over 3 month period. GFR <15 indicates renal failure. eGFR NonAfrican 55(L) >=60 mL/min/1. 73m2 02/20/2020 11:27 PM EDT Comment: GFR <60 suggests chronic kidney disease, if found over 3 month period. GFR <15 indicates renal failure. Blood 02/20/2020 11:0 5 AM EDT 02/20/2020 10:49 PM EDT us Sle Historical Provider LAB BLOOD ORDERABLES Fi nal Result [facility] [address] [place] [address], [facility] [phone] documented in this encounter Visit Diagnoses Not on filedocumented in this encounter
--- OUTSIDE RECORDS SUMMARY | 2024-08-03 17:06 | XMS_ITS | Encounter Summary ---
Author Organization [employer] Address [address] [place] [address] Care Team Providers Care Broommaker Name Role Phone Unavailable Primary Care Provider Unavailabl e Encounter Details Date Type Department Care Team (Late st Contact Info) Description 05/24/2019 Historic Encounter [address] [phone] Provider, [facility] Historical Social History Tobacco Use [...] Associated Diagnosis Comments CMP COMPREHENSIVE METABOLIC PANEL ([facility] BKR DATA CONV) Routine 05/31/2019 12:05 PM EDT FREE LIGHT CHAINS GAMMOPATHY PNL, SENDOUT ([facility] BKR DATA CONV) Routine 05/24/2019 12:05 PM EDT documented in this encounter Results * (ABNORMAL) CMP COMPREHENSIVE METABOLIC PANEL ([facility] BKR DATA CONV) (05/31/2019 12:05 PM EDT) Sodium Level 143 136 - 146 mmol/L 05/31/2019 10:43 PM EDT Potassium Level 3.5 3.5 - 5.1 mmol/L 05/31/2019 10:43 PM EDT Chloride Level 109 102 - 112 mmol/L 05/31/2019 10:43 PM EDT Carbon Dioxide Level 26 21 - 32 mmol/L 05/31/2019 10:43 PM EDT Anion Gap 12 9 - 20 05/31/2019 10:43 PM EDT Calcium Level 8.8 8.5 - 10.1 mg/dL 05/31/2019 10:43 PM EDT Glucose Level 84 74 - 106 mg/dL 05/31/2019 10:43 PM EDT Comment: [employer] has become aware of sulfasalazine and sulfapyridine [...] administration of the drug. Blood Urea Nitrogen 10 7 - 22 mg/dL 05/31/2019 10:43 PM EDT Creatinine Level 0.89 0.55 - 1.02 mg/dL 05/31/2019 10:43 PM EDT Bun/Creatinine 11.2 8.0 - 20.0 05/31/2019 10:43 PM EDT Albumin Level 3.0(L) 3.4 - 5.0 Gram/dL 05/31/2019 10:43 PM EDT Protein, Total 7.9 6.4 - 8.2 Gram/dL 05/31/2019 10:43 PM EDT A/G Ratio 0.6(L) 1.1 - 2.5 05/31/2019 10:43 PM EDT Alk Phos 96 27 - 136 Units/Lit er 05/31/2019 10:43 PM EDT ALT 17 12 - 78 Units/Lit er 05/31/2019 10:43 PM EDT Comment: [employer] has become aware of sulfasalazine and sulfapyridine [...] prior to administration of the drug. AST 11 5 - 37 Units/Lit er 05/31/2019 10:43 PM EDT Comment: [employer] has become aware of sulfasalazine and sulfapyridine [...] Bilirubin, Total 0.6 0.2 - 1.3 mg/dL 05/31/2019 10:43 PM EDT Globulin 4.9(H) 1.5 - 4.5 Gram/dL 05/31/2019 10:43 PM EDT eGFR >60 >=60 mL/min/1. 73m2 05/31/2019 10:43 PM EDT Comment: GFR <60 suggests chronic kidney disease, if found over 3 month period. GFR <15 indicates renal failure. eGFR NonAfrican >60 >=60 mL/min/1. 73m2 05/31/2019 10:43 PM EDT Comment: GFR <60 suggests chronic kidney disease, if found over 3 month period. GFR <15 indicates renal failure. Blood 05/31/2019 12:0 5 PM EDT 05/31/2019 10:11 PM EDT us [facility] Historical Provider LAB BLOOD ORDERABLES Fi nal Result [facility] [address] [place] [address], [facility] [phone] * (ABNORMAL) FREE LIGHT CHAINS GAMMOPATHY PNL, SENDOUT ([facility] BKR DATA CONV) (05/24/2019 12:05 PM EDT) [place] FLC 9.7 3.3 - 19.4 05/26/2019 10:11 PM EDT Lambda FLC 9.4 5.7 - 26.3 05/26/2019 10:11 PM EDT [place]/Lambda FLC Ratio 1.03 0.26 - 1.65 05/26/2019 10:11 PM EDT Comment: Performed At: [address] [id number] Odin Stevens PhD Ph:[phone] Protein, Total, Serum 8.2 6.0 - 8.5 g/dL 05/26/2019 10:11 PM EDT Albumin, Serum 3.5 2.9 - 4.4 g/dL 05/26/2019 10:11 PM EDT [employer]. Interp. Comment 2018 10:11 PM EDT Comment: Immunofixation shows IgA monoclonal protein with lambda light chain specificity. SPE Alpha1 Globulin 0.2 0.0 - 0.4 g/dL 05/26/2019 10:11 PM EDT SPE Alpha 2 Globulin 0.8 0.4 - 1.0 g/dL 05/26/2019 10:11 PM EDT SPE Beta Globulin 3.4(H) 0.7 - 1.3 g/dL 05/26/2019 10:11 PM EDT SPE Gamma Globulin 0.4 0.4 - 1.8 g/dL 05/26/2019 10:11 PM EDT MSpike 2.7(H) Not Observed g/dL 05/26/2019 10:11 PM EDT SPE Globulin, Total 4.7(H) 2.2 - 3.9 g/dL 05/26/2019 10:11 PM EDT SPE A/G Ratio 0.8 0.7 - 1.7 05/26/2019 10:11 PM EDT SPE Note Comment 05/26/2019 10:11 PM EDT Comment: Protein electrophoresis scan will follow via computer, mail, or garment patternmaker delivery. IgA 2730(H) 87 - 352 mg/dL 05/26/2019 10:11 PM EDT Comment: Results confirmed on dilution. IgG 317(L) 700 - 1600 mg/dL 05/26/2019 10:11 PM EDT IgM 12(L) 26 - 217 mg/dL 05/26/2019 10:11 PM EDT Comment:Result confirmed on concentration. Blood 05/24/2019 12:0 5 PM EDT 05/24/2019 11:20 PM EDT Sle Historical Provider LAB BLOOD ORDERABLES Fi nal Result Performing Organization Address City/State/[facility] Co de Phone Number [facility] [address] [phone] documented in this encounter Visit Diagnoses Not on filedocumented in this encounter
--- OUTSIDE RECORDS SUMMARY | 2024-08-03 17:06 | XMS_ITS | Encounter Summary ---
Author Organization [employer] Address [address] [place] [address] Care Team Providers Care Personnel Analyst Name Role Phone Unavailable Primary Care Provider Unavailabl e Encounter Details Date Type Department Care Team (Late st Contact Info) Description 04/03/2019 Historic Encounter [address] [phone] ProviderYoli Historical Social History Tobacco [...] LIGHT CHAINS GAMMOPATHY PNL, SENDOUT ([facility] BKR DATA CONV) Routine 04/03/2019 3:20 PM EDT documented in this encounter Results * (ABNORMAL) FREE LIGHT CHAINS GAMMOPATHY PNL, SENDOUT ([facility] BKR DATA CONV) (04/03/2019 3:20 PM EDT) [place] FLC 6.4 3.3 - 19.4 04/11/2019 2:09 PM EDT Lambda FLC 7.8 5.7 - 26.3 04/11/2019 2:09 PM EDT [place]/Lambda FLC Ratio 0.82 0.26 - 1.65 04/11/2019 2:09 PM EDT Comment: Performed At: [facility] [id number] Odin Stevens PhD Ph:[phone] Protein, Total, Serum 10.0(H) 6.0 - 8.5 g/dL 04/11/2019 2:09 PM EDT Albumin, Serum 3.5 2.9 - 4.4 g/dL 04/11/2019 2:09 PM EDT [employer] Interp. Comment 2018 2:09 PM EDT Comment: Immunofixation shows IgA monoclonal protein with lambda light chain specificity. SPE Alpha1 Globulin 0.2 0.0 - 0.4 g/dL 04/11/2019 2:09 PM EDT SPE Alpha 2 Globulin 0.8 0.4 - 1.0 g/dL 04/11/2019 2:09 PM EDT SPE Beta Globulin 5.2(H) 0.7 - 1.3 g/dL 04/11/2019 2:09 PM EDT SPE Gamma Globulin 0.4 0.4 - 1.8 g/dL 04/11/2019 2:09 PM EDT MSpike 4.9(H) Not Observed g/dL 04/11/2019 2:09 PM EDT SPE Globulin, Total 6.5(H) 2.2 - 3.9 g/dL 04/11/2019 2:09 PM EDT SPE A/G Ratio 0.6(L) 0.7 - 1.7 04/11/2019 2:09 PM EDT SPE Note Comment 04/11/2019 2:09 PM EDT Comment: Protein electrophoresis scan will follow via computer, mail, or paradichlorobenzene machine operator delivery. IgA 5362(H) 87 - 352 mg/dL 04/11/2019 2:09 PM EDT Comment: Results confirmed on dilution. IgG 205(L) 700 - 1600 mg/dL 04/11/2019 2:09 PM EDT Comment:Result confirmed on concentration. IgM 8(L) 26 - 217 mg/dL 04/11/2019 2:09 PM EDT Comment:Result confirmed on concentration. Blood 04/03/2019 3:20 PM EDT 04/03/2019 10:02 PM EDT [facility] Historical Provider LAB BLOOD ORDERABLES Fi nal Result [facility] [address] [phone] documented in this encounter Visit Diagnoses Not on filedocumented in this encounter
--- OUTSIDE RECORDS SUMMARY | 2024-08-03 17:06 | XMS_ITS | Encounter Summary ---
Author Organization [employer] Address [address] [place] [address] Care Team Providers Care Medical Assistant Instructor Name Role Phone Clifford Newell Primary Care Provider + [phone] Encounter Details Date Type Department Care Team (Late st Contact Info) Description 12/01/2019 Transcribed Document [facility] [place] [address] [place] [address] ProviderAntoinette MD [address] [place] [address] Social History Tobacco Use Types Packs/Day Years Used Date Smoking Tobacco: Never Assessed Comments Unknown Sex and Gender Information Value Date Recorded Sex Assigned at Not on file Legal Sex Female 10:12 AM CDT Gender Identity Not on file Sexual Orientation Not on file documented as of this encounter Miscellaneous Notes * Cerner Conversion Note - Antoinette Rae MD - 12/01/2019 3:16 PM CDT Patient Education Materials Follows: Implanted Port Insertion, Care After This sheet gives you information about how to care for yourself after your procedure. Your health care provider may also give you more specific instructions. If you have problems or questions, contact your health care provider. What can I expect after the procedure? After your procedure, it is common to have: ??? Discomfort at the port insertion site. ??? Bruising on the skin over the port. This should improve over 3?4 days. Follow these instructions at home: Port care ??? After your port is placed, you will get a evp global product leadership's information card. The card has information about your port. Keep this card with you at all times. ??? Take care of the port as told by your health care provider. Ask your health care provider if you or a family member can get training for taking care of the port at home. A home health care nurse may also take care of the port. ??? Make sure to remember what type of port you have. Incision care ??? Follow instructions from your health care provider about how to take care of your port insertion site. Make sure you: ? Wash your hands with soap and water before you change your bandage (dressing). If soap and water are not available, use hand shook splicer. ? Change your dressing as told by your health care provider. ? Leave stitches (sutures), skin glue, or adhesive strips in place. These skin closures may need to stay in place for 2 weeks or longer. If adhesive strip edges start to loosen and curl up, you may trim the loose edges. Do not remove adhesive strips completely unless your health care provider tells you to do that. ??? Check your port insertion site every day for signs of infection. Check for: ? More redness, swelling, or pain. ? More fluid or blood. ? Warmth. ? Pus or a bad smell. General instructions ??? Do not take baths, swim, or use a hot tub until your health care provider approves. ??? Do not lift anything that is heavier than 10 lb (4.5 kg) for a week, or as told by your health care provider. ??? Ask your health care provider when it is okay to: ? Return to work or school. ? Resume usual physical activities or sports. ??? Do not drive for 24 hours if you were given a medicine to help you relax (sedative). ??? Take mdkf-snf-vmlukta and prescription medicines only as told by your health care provider. ??? Wear a medical alert bracelet in case of an emergency. This will tell any health care providers that you have a port. ??? Keep all follow-up visits as told by your health care provider. This is important. Contact a health care provider if: ??? You cannot flush your port with saline as directed, or you cannot draw blood from the port. ??? You have a fever or chills. ??? You have more redness, swelling, or pain around your port insertion site. ??? You have more fluid or blood coming from your port insertion site. ??? Your port insertion site feels warm to the touch. ??? You have pus or a bad smell coming from the port insertion site. Get help right away if: ??? You have chest pain or shortness of breath. ??? You have bleeding from your port that you cannot control. Summary ??? Take care of the port as told by your health care provider. ??? Change your dressing as told by your health care provider. ??? Keep all follow-up visits as told by your health care provider. This information is not intended to replace advice given to you by your health care provider. Make sure you discuss any questions you have with your health care provider. Document Released: 06/27/2014 Document Revised: 07/28/2017 Document Reviewed: 07/28/2017 Eduvant Interactive Patient Education ? 2019 Pixel Qi. Moderate Conscious Sedation, Adult, Care After These [...] you are awake and alert. ??? Take iapd-kxc-neqmiwc and prescription medicines only as told by [...] 06/27/2014 Document Revised: 02/08/2017 Document Reviewed: 12/26/2016 [employer] Interactive Patient Education ? 2019 Pixel Qi. documented in this encounter Plan of Treatment Not on file documented as of this encounter Visit Diagnoses Not on filedocumented in this encounter Care Teams Medical Assistant Instructor Relationship Specialty Start Date End Date Clifford Newell PA [address] [place] [address] JERAD Ling [phone] PCP - General Physician Field Recruiter 10/14/23 documented as of this encounter
--- OUTSIDE RECORDS SUMMARY | 2024-08-03 17:06 | XMS_ITS | Encounter Summary ---
Author Organization [employer] Address [address] [place] [address] Care Team Providers Care Scientific Informatics Analyst Name Role Phone Clifford Newell Primary Care Provider + [phone] Encounter Details Date Type Department Care Team (Late st Contact Info) Description 05/06/2021 Transcribed Document [facility] [place] [address] [place] [address] ProviderAntoinette MD [address] [place] [address] Social History Tobacco Use Types Packs/Day Years Used Date Smoking Tobacco: Never Assessed Comments Unknown Sex and Gender Information Value Date Recorded Sex Assigned at Not on file Legal Sex Female 10:12 AM CDT Gender Identity Not on file Sexual Orientation Not on file documented as of this encounter Miscellaneous Notes * Cerner Conversion Note - Antoinette ProviderMD - 05/06/2021 2:11 PM CDT Patient: ASHER BAILEY Age: 60 years Sex: Female : 1960 Associated Diagnoses: None Author: Gerson Crabtree MD-RAD Pre-OP/Procedure Diagnosis: _Port Removal Indication: Need for iv treatment Procedure Performed: Power Port removal Procedural MD: СЕРГЕЙ Software Quality Specialist: None Sedation: IV Conscious Sedation Findings: Successful Power Port removal Complications: None EBL: Minimal Specimen(s) Removed: None Full report to follow. documented in this encounter Plan of Treatment Not on file documented as of this encounter Visit Diagnoses Not on filedocumented in this encounter Care Teams Scientific Informatics Analyst Relationship Specialty Start Date End Date Clifford Newell PA [address] [place] [address] [place] [address] PCP - General Physician Software Quality Specialist 10/14/23 documented as of this encounter
--- OUTSIDE RECORDS SUMMARY | 2024-08-03 17:06 | XMS_ITS | Encounter Summary ---
Author Organization [employer] Address [address] [place] [address] Care Team Providers Care Buffing Machine Operator Name Role Phone Unavailable Primary Care Provider Unavailabl e Encounter Details Date Type Department Care Team (Late st Contact Info) Description 05/05/2021 Historic Encounter [address] [address] Provider, [facility] Historical Social History Tobacco Use Types Packs/Day [...] Procedure Name Priority Date/Time Associated Diagnosis Comments SARS-COV2 PCR (COVID 19) Routine 05/05/2021 2:23 PM EDT documented in this encounter Results * SARS-COV2/RT-PCR (05/05/2021 2:23 PM EDT) SARS-COV2/RT-P CR NEGATIVE NEGATIVE-N EGATIVE [facility] 05/05/2021 2:23 PM EDT [facility] Historical Provider MICROBIOLOGY - GENERAL ORDERABLES Final Result [facility] [address] [place] [address] documented in this encounter Visit Diagnoses Not on filedocumented in this encounter
--- OUTSIDE RECORDS SUMMARY | 2024-08-03 17:06 | XMS_ITS | Encounter Summary ---
Author Organization [employer] Address [address] [place] [address] Care Team Providers Care Shoe Repair Supervisor Name Role Phone Unavailable Primary Care Provider Unavailabl e Encounter Details Date Type Department Care Team (Late st Contact Info) Description 04/29/2021 Historic Encounter [address] [address] ProviderYoli Historical Social History Tobacco [...] Comments FREE LIGHT CHAINS GAMMOPATHY PNL, SENDOUT ([facility] BKR DATA CONV) Routine 04/29/2021 1:04 PM EDT CBC W/ AUTO DIFF ([facility] BKR DATA CONV) Routine 04/29/2021 1:04 PM EDT AUTOMATED DIFFERENTIAL ([facility] BK DATA CONV) Routine 04/29/2021 1:04 PM EDT CMP COMPREHENSIVE METABOLIC PANEL ([facility] BKR DATA CONV) Routine 04/29/2021 1:04 PM EDT documented in this encounter Results * (ABNORMAL) FREE LIGHT CHAINS GAMMOPATHY PNL, SENDOUT ([facility] BKR DATA CONV) (04/29/2021 1:04 PM EDT) [place] FLC 23.3(H) 3.3 - 19.4 05/01/2021 8:13 PM EDT Lambda FLC 16.6 5.7 - 26.3 05/01/2021 8:13 PM EDT [place]/Lambda FLC Ratio 1.40 0.26 - 1.65 05/01/2021 8:13 PM EDT Comment: Performed At: [facility] [id number] Odin Stevens PhD Ph:[phone] Protein, Total, Serum 5.7(L) 6.0 - 8.5 g/dL 05/01/2021 8:13 PM EDT Albumin, Serum 3.2 2.9 - 4.4 g/dL 05/01/2021 8:13 PM EDT [employer]. Interp. Comment(A) 2020 8:13 PM EDT Comment: Immunofixation shows IgA monoclonal protein with lambda light chain specificity. SPE Alpha1 Globulin 0.2 0.0 - 0.4 g/dL 05/01/2021 8:13 PM EDT SPE Alpha 2 Globulin 0.6 0.4 - 1.0 g/dL 05/01/2021 8:13 PM EDT SPE Beta Globulin 0.8 0.7 - 1.3 g/dL 05/01/2021 8:13 PM EDT SPE Gamma Globulin 0.8 0.4 - 1.8 g/dL 05/01/2021 8:13 PM EDT MSpike Comment: Not Observed g/dL 05/01/2021 8:13 PM EDT Comment: Due to the small quantity of monoclonal protein, unable to quantitate the M-spike. SPE Globulin, Total 2.5 2.2 - 3.9 g/dL 05/01/2021 8:13 PM EDT SPE A/G Ratio 1.3 0.7 - 1.7 05/01/2021 8:13 PM EDT SPE Note Comment 05/01/2021 8:13 PM EDT Comment: Protein electrophoresis scan will follow via computer, mail, or base engineer delivery. IgA 116 87 - 352 mg/dL 05/01/2021 8:13 PM EDT IgG 837 586 - 1602 mg/dL 05/01/2021 8:13 PM EDT IgM 35 26 - 217 mg/dL 05/01/2021 8:13 PM EDT Blood 04/29/2021 1:04 PM EDT 04/29/2021 9:09 PM EDT [facility] Historical Provider LAB BLOOD ORDERABLES [facility] Result [facility] [address] [phone] * (ABNORMAL) CBC W/ AUTO DIFF ([facility] BKR DATA CONV) (04/29/2021 1:04 PM EDT) WBC 2.5(L) 4.5 - 12.5 x10(3)/uL 04/29/2021 5:20 PM EDT RBC 3.47(L) 4.50 - 5.20 x10(3)/uL 04/29/2021 5:20 PM EDT Hgb 11.8(L) 12.0 - 16.0 g/dL 04/29/2021 5:20 PM EDT Hct 36.5 36.0 - 46.0 % 04/29/2021 5:20 PM EDT MCV 105.2(H) 80.0 - 100.0 fL 04/29/2021 5:20 PM EDT MCH 34.0 26.0 - 34.0 pg 04/29/2021 5:20 PM EDT MCHC 32.3 31.0 - 37.0 g/dL 04/29/2021 5:20 PM EDT RDW 12.2 12.0 - 16.8 % 04/29/2021 5:20 PM EDT Platelet Count 94(L) 140 - 440 x10(3)/uL 04/29/2021 5:20 PM EDT MPV 10.4 7.4 - 10.4 fL 04/29/2021 5:20 PM EDT Blood 04/29/2021 1:04 PM EDT 04/29/2021 5:14 PM EDT us [facility] Historical Provider LAB BLOOD ORDERABLES Fi nal Result [facility] [address] [phone] * (ABNORMAL) AUTOMATED DIFFERENTIAL ([facility] BKR DATA CONV) (04/29/2021 1:04 PM EDT) Neut% 28.6(L) 45.0 - 80.0 % 04/29/2021 5:20 PM EDT Lymph% 50.2(H) 15.0 - 45.0 % 04/29/2021 5:20 PM EDT [place]% 13.5(H) 0.0 - 10.0 % 04/29/2021 5:20 PM EDT Eos% 7.3(H) 0.0 - 5.0 % 04/29/2021 5:20 PM EDT Baso% 0.4 0.0 - 3.0 % 04/29/2021 5:20 PM EDT Neut# 0.70(L) 2.00 - 8.80 K/uL 04/29/2021 5:20 PM EDT Lymph# 1.23 0.70 - 5.50 K/uL 04/29/2021 5:20 PM EDT [place]# 0.33 0.00 - 1.70 K/uL 04/29/2021 5:20 PM EDT Eos# 0.18 0.00 - 0.80 K/uL 04/29/2021 5:20 PM EDT Baso# 0.01 0.00 - 0.02 K/uL 04/29/2021 5:20 PM EDT Blood 04/29/2021 1:04 PM EDT 04/29/2021 5:14 PM EDT Narrative [facility] - 04/29/2021 5:20 PM EDT Added by Discern Expert us [facility] Historical Provider LAB BLOOD ORDERABLES Fi nal Result [facility] [address] [place] [address], [facility] [phone] * (ABNORMAL) CMP COMPREHENSIVE METABOLIC PANEL ([facility] BKR DATA CONV) (04/29/2021 1:04 PM EDT) Sodium Level 144 136 - 146 mmol/L 04/29/2021 9:36 PM EDT Potassium Level 3.4(L) 3.5 - 5.1 mmol/L 04/29/2021 9:36 PM EDT Chloride Level 112 102 - 112 mmol/L 04/29/2021 9:36 PM EDT Carbon Dioxide Level 27 21 - 32 mmol/L 04/29/2021 9:36 PM EDT Anion Gap 8(L) 9 - 20 04/29/2021 9:36 PM EDT Calcium Level 8.6 8.5 - 10.1 mg/dL 04/29/2021 9:36 PM EDT Glucose Level 93 74 - 106 mg/dL 04/29/2021 9:36 PM EDT Comment: [employer] has become aware of sulfasalazine and sulfapyridine [...] Urea Nitrogen 10 7 - 22 mg/dL 04/29/2021 9:36 PM EDT Creatinine Level 0.73 0.55 - 1.02 mg/dL 04/29/2021 9:36 PM EDT Bun/Creatinine 13.7 8.0 - 20.0 04/29/2021 9:36 PM EDT Albumin Level 3.3(L) 3.4 - 5.0 Gram/dL 04/29/2021 9:36 PM EDT Protein, Total 6.4 6.4 - 8.2 Gram/dL 04/29/2021 9:36 PM EDT A/G Ratio 1.1 1.1 - 2.5 04/29/2021 9:36 PM EDT Alk Phos 44 27 - 136 Units/Lit er 04/29/2021 9:36 PM EDT ALT 24 12 - 78 Units/Lit er 04/29/2021 9:36 PM EDT Comment: [employer] has become aware of sulfasalazine and sulfapyridine [...] AST 16 5 - 37 Units/Lit er 04/29/2021 9:36 PM EDT Comment: [employer] has become aware of sulfasalazine and sulfapyridine [...] Bilirubin, Total 0.4 0.2 - 1.3 mg/dL 04/29/2021 9:36 PM EDT Comment: Total bilirubin results may be falsely elevated in patients undergoing treatment with eltrombopag (Promacta). Results should be correlated to clinical symptomology and additional laboratory testing including other markers for liver function, e.g., alanine aminotransferase, aspartate aminotransferase, alkaline phosphatase, and/or lactate dehydrogenase. Globulin 3.1 1.5 - 4.5 Gram/dL 04/29/2021 9:36 PM EDT eGFR >60 >=60 mL/min/1. 73m2 04/29/2021 9:36 PM EDT Comment: GFR <60 suggests chronic kidney disease, if found over 3 month period. GFR <15 indicates renal failure. eGFR NonAfrican >60 >=60 mL/min/1. 73m2 04/29/2021 9:36 PM EDT Comment: GFR <60 suggests chronic kidney disease, if found over 3 month period. GFR <15 indicates renal failure. Blood 04/29/2021 1:04 PM EDT 04/29/2021 9:09 PM EDT [facility] Historical Provider LAB BLOOD ORDERABLES Fi nal Result Performing Organization Address City/State/[facility] Co de Phone Number [facility] [address] [phone] documented in this encounter Visit Diagnoses Not on filedocumented in this encounter
--- OUTSIDE RECORDS SUMMARY | 2024-08-03 17:06 | XMS_ITS | Encounter Summary ---
Author Organization [employer] Address [address] [place] [address] Care Team Providers Care Flight Operations Manager Name Role Phone Unavailable Primary Care Provider Unavailabl e Encounter Details Date Type Department Care Team (Late st Contact Info) Description 07/05/2019 Historic Encounter [address] [address] ProviderYoli Historical Social History Tobacco [...] ([facility] BKR DATA CONV) Routine 07/05/2019 8:35 AM EDT documented in this encounter Results * (ABNORMAL) FREE LIGHT CHAINS GAMMOPATHY PNL, SENDOUT ([facility] BKR DATA CONV) (07/05/2019 8:35 AM EDT) [place] FLC 15.9 3.3 - 19.4 07/06/2019 9:10 PM EDT Lambda FLC 17.4 5.7 - 26.3 07/06/2019 9:10 PM EDT [place]/Lambda FLC Ratio 0.91 0.26 - 1.65 07/06/2019 9:10 PM EDT Comment: Performed At: [facility] [id number] Odin Stevens PhD Ph:[phone] Protein, Total, Serum 6.8 6.0 - 8.5 g/dL 07/06/2019 9:10 PM EDT Albumin, Serum 3.2 2.9 - 4.4 g/dL 07/06/2019 9:10 PM EDT [employer]. Interp. Comment 2018 9:10 PM EDT Comment: Immunofixation shows IgA monoclonal protein with lambda light chain specificity. SPE Alpha1 Globulin 0.2 0.0 - 0.4 g/dL 07/06/2019 9:10 PM EDT SPE Alpha 2 Globulin 0.9 0.4 - 1.0 g/dL 07/06/2019 9:10 PM EDT SPE Beta Globulin 1.9(H) 0.7 - 1.3 g/dL 07/06/2019 9:10 PM EDT SPE Gamma Globulin 0.5 0.4 - 1.8 g/dL 07/06/2019 9:10 PM EDT MSpike 1.1(H) Not Observed g/dL 07/06/2019 9:10 PM EDT SPE Globulin, Total 3.6 2.2 - 3.9 g/dL 07/06/2019 9:10 PM EDT SPE A/G Ratio 0.9 0.7 - 1.7 07/06/2019 9:10 PM EDT SPE Note Comment 07/06/2019 9:10 PM EDT Comment: Protein electrophoresis scan will follow via computer, mail, or surgical services coordinator delivery. IgA 1198(H) 87 - 352 mg/dL 07/06/2019 9:10 PM EDT Comment: Results confirmed on dilution. IgG 413(L) 700 - 1600 mg/dL 07/06/2019 9:10 PM EDT IgM 20(L) 26 - 217 mg/dL 07/06/2019 9:10 PM EDT Comment:Result confirmed on concentration. Blood 07/05/2019 8:35 AM EDT 07/05/2019 6:36 PM EDT [facility] Historical Provider LAB BLOOD ORDERABLES Fi nal Result Performing Organization Address City/State/[facility] Co de Phone Number [facility] [address] [phone] documented in this encounter Visit Diagnoses Not on filedocumented in this encounter
--- OUTSIDE RECORDS SUMMARY | 2024-08-03 17:06 | XMS_ITS | Encounter Summary ---
Author Organization [employer] Address [address] [place] [address] Care Team Providers Care Psych Arnp Name Role Phone Ana Luisa Herrera Primary Care Provider + [phone] Encounter Details Date Type Department Care Team (Late st Contact Info) Description 12/01/2019 Transcribed Document [facility] [place] [address] [place] [address] ProviderAntoinette MD [address] [place] [address] Social History Tobacco Use Types Packs/Day Years Used Date Smoking Tobacco: Never Assessed Comments Unknown Sex and Gender Information Value Date Recorded Sex Assigned at Not on file Legal Sex Female 10:12 AM CDT Gender Identity Not on file Sexual Orientation Not on file documented as of this encounter Miscellaneous Notes * Cerner Conversion Note - Antoinette ProviderMD - 12/01/2019 3:19 PM CDT [facility] JERAD Peng [address] ASHER BAILEY :1960 Visit Time:12/01/2019 Your Visit Summary Your Care Team Admitting Physician - RAIMUNDO FELIPE MD-ONC Attending Physician - RAIMUNDO FELIPE MD-ONC Primary Care Physician - ANA LUISA HERRERA PA-[facility] Referring Physician - FELIPE, RAIMUNDO T, MD-ONC Your Diagnosis Multiple myeloma not having achieved remission, Multiple myeloma not having achieved remission Discharge Vitals Heart Rate (Monitored) 52 Respiratory Rate 14 Blood Pressure 109/54 What to do next Instructions From Your Care Team Diet after Discharge: Resume usual diet as tolerated Activity after Discharge: Rest and relax today, No strenuous activity. Use a sling on the right arm for the first three nights when sleeping. Driving after Discharge: Do not drive for 24 hours Showering/Bathing: Keep the dressing in place for the first three days. You may remove the dressing after three days, there is skin glue that will come off on its own. For the first week, cover the site with saran wrap to shower. Medications: No changes to your current home medications. Notify Provider of: any chest pain, shortness of breath, bleeding, hematoma, or signs of infection. If any uncontrolled bleeding occurs,apply pressure and call 911. Follow-Up Appointments Follow Up with RAIMUNDO FELIPE MD-ONC When Within As needed [facility] [place] [address]- Medications What How Much When Instructions Next Dose albuterol 2 puffs Every 4 Hours as needed for as needed for wheezing as needed aspirin 81 Milligram(s) Every Day tomorrow baclofen 20 Milligram(s) Oral Two Times A Day tonight biotin (biotin 1000 mcg oral tablet) 2 Tablet(s) Oral Every Day tomorrow busPIRone (BuSpar) 15 Milligram(s) Oral Two Times A Day tonight cholecalciferol (Vitamin D3) 50,000 International Units Weekly Wednesday FLUoxetine (FLUoxetine 40 mg oral capsule) 1 Capsule(s) Oral Every Day tomorrow folic acid 1 Milligram(s) Every Day tomorrow gabapentin 100 Milligram(s) Oral Three Times A Day tonight loratadine (loratadine 10 mg oral tablet) 1 Tablet(s) Oral Every Day tomorrow meclizine (meclizine 25 mg oral tablet) 1 Tablet(s) Oral Three Times A Day tonight melatonin (Melatonin) 10 Milligram(s) Oral At Bedtime tonight metoprolol (metoprolol succinate 25 mg oral capsule, extended release) 1 Capsule(s) Oral Every Day tomorrow multivitamin 1 Tablet(s) Oral Every Day tomorrow nitroglycerin 0.4 Milligram(s) SubLINgual Every 5 minutes as needed for as needed for chest pain as needed omega-3 polyunsaturated fatty acids (Fish Oil) 1,000 Milligram(s) Oral Two Times A Day tonight raNITIdine 150 Milligram(s) Oral Two Times A Day tonight simvastatin 10 Milligram(s) Oral Every Day tomorrow Take your medications faithfully. Do NOT skip [...] your retail pharmacy guidance. Allergies ampicillin codeine indomethacin morphine penicillin Immunizations This Visit No Immunizations Found Education Materials Implanted Port Insertion, Care After This sheet [...] over the port. This should improve over 3???4 days. Follow these instructions at home: Port care ??? After your port is placed, you will get a mortar mixer's information card. The card has information about [...] and water are not available, use hand world language teacher. ? Change your dressing as told by [...] to help you relax (sedative). ??? Take hfff-rng-xvqygub and prescription medicines only as told by [...] 06/27/2014 Document Revised: 07/28/2017 Document Reviewed: 07/28/2017 [employer] Interactive Patient Education ?? 2019 [employer]. Moderate Conscious Sedation, Adult, Care After These [...] you are awake and alert. ??? Take wchh-nmj-vjyrqbz and prescription medicines only as told by [...] 06/27/2014 Document Revised: 02/08/2017 Document Reviewed: 12/26/2016 [employer] Interactive Patient Education ?? 2019 [employer]iona. Emergency Awareness and Preventative Care STROKE is [...] Assistance with quitting is available by contacting 1-555-HWIY-NOW. This is a free resource providing counseling, [...] This Visit (last charted value for your 12/01/2019 visit) Coagulation 12/01/2019 7:00 AM INR: 1.0 -- Normal range between ( 0.9 and 1.1 ) PT: 10.7 Second(s) -- Normal range between ( 9.6 and 12.0 ) Patient Name:ASHER BAILEY I have received and understand this information and was given the opportunity to ask questions. Patient/Naval Engineer Name: Patient/Naval Engineer Signature: Relationship to Patient: Clinician/Hospital Naval Engineer Signature: Date: Electronically signed by [facility] Conversion Survey Project Manager Cerner at 01/08/2023 4:22 PM CDT documented in this encounter Plan of Treatment Not on file documented as of this encounter Visit Diagnoses Not on filedocumented in this encounter Care Teams Psych Arnp Relationship Specialty Start Date End Date Ana Luisa Herrera PA [address] [place] [address] [place] [address] PCP - General Physician Conveyor Worker 10/14/23 documented as of this encounter
--- OUTSIDE RECORDS SUMMARY | 2024-08-03 17:06 | XMS_ITS | Encounter Summary ---
Author Organization [employer] Address [address] [place] [address] Care Team Providers Care Nutritional Services Cook Name Role Phone Clifford Newell Primary Care Provider + [phone] Encounter Details Date Type Department Care Team (Late st Contact Info) Description 12/01/2019 Transcribed Document [facility] [place] [address] [place] [address] ProviderAntoinette MD [address] [place] [address] Social History Tobacco Use Types Packs/Day Years Used Date Smoking Tobacco: Never Assessed Comments Unknown Sex and Gender Information Value Date Recorded Sex Assigned at Not on file Legal Sex Female 10:12 AM CDT Gender Identity Not on file Sexual Orientation Not on file documented as of this encounter Miscellaneous Notes * Cerner Conversion Note - Antoinette ProviderMD - 12/01/2019 3:18 PM CDT Nursing Discharge Summary Entered On: 12/01/2019 15:19 EDT Performed On: 12/01/2019 15:18 EDT by BARRETT TAPIA, clerical order filler Documentation Discharge Date/Time : 12/01/2019 16:20 EDT CECE MESA RN - 12/01/2019 16:30 EDT Patient Disposition, General : Discharge Discharge To : Home with ambulatory/outpatient follow-up Mode Of Departure, General Discharge : Private vehicle, Wheelchair Accompanied By, Discharge : Daughter IV Discontinued : Yes Personal Belongings With Patient : Yes Pt's Own Supply of Medications Returned : No patient supply of medications to return Prescriptions Given to Patient : No Discharge Instructions Reviewed With, Opportunity For Questions Given : Patient, Daughter Patient Education Completed : Yes Teaching Method : Explanation, Printed materials Teaching Evaluation : Returns demonstration, Verbalizes understanding BARRETT TAPIA RN - 12/01/2019 15:18 EDT Electronically signed by [facility], [facility] Conversion Awning Craftsman Cerner at 01/08/2023 4:21 PM CDT documented in this encounter Plan of Treatment Not on file documented as of this encounter Visit Diagnoses Not on filedocumented in this encounter Care Teams Nutritional Services Cook Relationship Specialty Start Date End Date Clifford Newell PA [address] [place] [address] [place] [address] PCP - General Physician Forest Aide 10/14/23 documented as of this encounter
--- OUTSIDE RECORDS SUMMARY | 2024-08-03 17:06 | XMS_ITS | Encounter Summary ---
Author Organization [employer] Address [address] [place] [address] Care Team Providers Care Retail Account Specialist Name Role Phone Clifford Newell Primary Care Provider + [phone] Encounter Details Date Type Department Care Team (Late st Contact Info) Description 04/12/[address] [facility] [place] [address] [place] [address] ProviderAntoinette MD [address] [place] [address] Social History Tobacco Use Types Packs/Day Years Used Date Smoking Tobacco: Never Assessed Comments Unknown Sex and Gender Information Value Date Recorded Sex Assigned at Not on file Legal Sex Female 10:12 AM CDT Gender Identity Not on file Sexual Orientation Not on file documented as of this encounter Miscellaneous Notes * Cerner Conversion Note - Antoinette ProviderMD - 04/12/2019 7:35 AM CDT Patient: ASHER BAILEY Age: 58 years Sex: Female : 1960 Associated Diagnoses: None Author: RAIMUNDO FELIPE MD-ONC Attachments: None Subjective Chief complaint Chief complaint Patient with lytic lesions on Xray of c spine with M-spike. Here for bone marrow bx Health Status Allergies Allergic Reactions (All) Severity Not Documented Ampicillin- No reactions were documented. Codeine- No reactions were documented. Morphine- No reactions were documented. Penicillin- No reactions were documented. Allergies (4) Active Reaction ampicillin None Documented codeine None Documented morphine None Documented penicillin None Documented Current medications Home Medications (15) Active albuterol 2 puffs, PRN, Q4H aspirin 81 mg, Daily baclofen 10 mg, Oral, Daily BuSpar 10 mg, Oral, Daily citalopram 20 mg, Oral, Daily Coreg 3.125 mg, Oral, Daily Fish Oil , Oral, BID Flexeril 5 mg, Oral, Daily folic acid 1 mg, Daily gabapentin 100 mg, Oral, BID lisinopril 10 mg, Oral, Daily nitroglycerin 0.4 mg, PRN, SubLINgual, Q5Min raNITIdine 150 mg, Oral, BID simvastatin 10 mg, Oral, Daily Vitamin D3 50,000 Int Units, Weekly Medications (2) Active Scheduled: (2) fentaNYL 100 mcg/2 mL inj 75 mcg 1.5 mL, IV Push, 1-Time midazolam 8 mg, IV Push, 1-Time Continuous: (0) PRN: (0) Problem list Active Problems (8) Arthritis Asthma Back pain High blood pressure History of obstructive sleep apnea Hyperlipidemia Multiple myeloma Sleep apnea Objective VS/Measurements Vitals Signs (last 24 hrs) Last Charted Minimum Maximum Temp 97 (APR 12 06:19) 97 (APR 12 06:19) 97 (APR 12 06:19) Periph HR 55 (APR 12 06:19) 55 (APR 12 06:19) 55 (APR 12 06:19) SBP 130 (APR 12 06:19) 130 (APR 12 06:19) 130 (APR 12 06:19) DBP 80 (APR 12 06:19) 80 (APR 12 06:19) 80 (APR 12 06:19) SpO2 97 (APR 12 06:19) 97 (APR 12 06:19) 97 (APR 12 06:19) General Alert and oriented No acute distress Respiratory Lungs are clear to auscultation Gastrointestinal Soft Non-distended Normal postop abdominal tenderness Normal postop abdominal tenderness Results Review General results Interpretation: LABS No qualifying data available Radiology Results No Radiology Results Found Impression and Plan Assessment and Plan Diagnosis Muliple Myeloma Course Progressing as expected Orders Completed bone marrow biopsy without complication removing aspirate and 1 cm bx. EBL= 10ml. Electronically signed by Wing, [facility] Conversion Fare Enforcement Officer Cerner at 01/08/2023 4:01 PM CDT documented in this encounter Plan of Treatment Not on file documented as of this encounter Visit Diagnoses Not on filedocumented in this encounter Care Teams Retail Account Specialist Relationship Specialty Start Date End Date Clifford Newell PA [address] [place] [address] [place] [address] PCP - General Physician Fitting Room Operator 10/14/23 documented as of this encounter
--- OUTSIDE RECORDS SUMMARY | 2024-08-03 17:06 | XMS_ITS | Encounter Summary ---
Author Organization [employer] Address [address] [place] [address] Care Team Providers Care Cst Name Role Phone Ana Luisa Herrera Primary Care Provider + [phone] Encounter Details Date Type Department Care Team (Late st Contact Info) Description 05/06/2021 Transcribed Document [facility] Family Medicine [address] [place] [address] ProviderAntoinette MD [address] [place] [address] Social History Tobacco Use Types Packs/Day [...] Antoinette ProviderMD - 05/06/2021 2:38 PM CDT [facility] JERAD Peng [address] ASHER BAILEY :1960 Visit Time:05/06/2021 Your Visit Summary Your Care Team Admitting Physician - RAIMUNDO PACHECO MD-ONC Attending Physician - RAIMUNDO PACHECO MD-ONC Primary Care Physician - ANA LUISA HERRERA PA-[facility] Referring Physician - ANA LUISA HERRERA PA-L[facility] These Are Your Goals No qualifying data available. Discharge Vitals Heart Rate (Monitored) 48 Respiratory Rate 21 Blood Pressure 109/68 What to do next Instructions From Your Care Team No driving 24 hours. Rest/relax today. May remove tegaderm dressing in 3 days. Keep site dry. Cover with saran wrap and tape when showering for the first week. Hold Aspirin for 48 hours. Watch for sign of bleeding and signs of infection. Follow up Dr. Pacheco. Medications What How Much When Instructions Next Dose acyclovir (acyclovir 800 mg oral tablet) 1 Tablet(s) Oral Two Times A Day albuterol 2 puffs Every 4 Hours as needed for as needed for wheezing baclofen 20 Milligram(s) Oral Two Times A Day biotin (biotin 5000 mcg oral capsule) 2 Capsule(s) Oral Two Times A Day busPIRone (BuSpar) 30 Milligram(s) Oral Two Times A Day ergocalciferol (ergocalciferol 50,000 intl units (1.25 mg) oral capsule) 1 Capsule(s) Oral Weekly gabapentin 300 Milligram(s) Oral Three Times A Day loratadine (loratadine 10 mg oral tablet) 1 Tablet(s) Oral Every Day LORazepam (LORazepam 0.5 mg oral tablet) 1 Tablet(s) Oral Two Times A Day as needed for as needed for anxiety meclizine (meclizine 25 mg oral tablet) 1 Tablet(s) Oral Two Times A Day melatonin (Melatonin) 10 Milligram(s) Oral At Bedtime metoprolol (metoprolol succinate 25 mg oral capsule, extended release) 1 Capsule(s) Oral Every Day multivitamin with minerals (Cerovite Advanced Formula oral tablet) 1 Tablet(s) Oral Every Day nitroglycerin 0.4 Milligram(s) SubLINgual Every 5 minutes as needed for as needed for chest pain raNITIdine 150 Milligram(s) Oral Two Times A Day rivaroxaban (Xarelto 20 mg oral tablet) 1 Tablet(s) Oral Every Evening simvastatin 10 Milligram(s) Oral Every Day traMADol (traMADol 50 mg oral tablet) 1 Tablet(s) Oral Every 12 hours as needed for as needed for pain Take your medications faithfully. Do NOT skip [...] This Visit No Immunizations Found Education Materials Moderate Conscious Sedation, Adult, Care After These [...] you are awake and alert. ??? Take wwnv-igx-wjniiat and prescription medicines only as told by [...] have with your health care provider. Document Revised: 08/19/2018 Document Reviewed: 12/26/2016 [employer] Patient Education ?? 2020 [employer] Implanted Port Removal, Care After This sheet gives you information about how to care for yourself after your procedure. Your health care provider may also give you more specific instructions. If you have problems or questions, contact your health care provider. What can I expect after the procedure? After the procedure, it is common to have: ??? Soreness or pain near your incision. ??? Some swelling or bruising near your incision. Follow these instructions at home: Medicines ??? Take jkbq-dlw-ptidfgs and prescription medicines only as told by your health care provider. ??? If you were prescribed an antibiotic medicine, take it as told by your health care provider. Do not stop taking the antibiotic even if you start to feel better. Bathing ??? Do not take baths, swim, or use a hot tub until your health care provider approves. Ask your health care provider if you can take showers. You may only be allowed to take sponge baths. Incision care ??? Follow instructions from your health care provider about how to take care of your incision. Make sure you: ? Wash your hands with soap and water before you change your bandage (dressing). If soap and water are not available, use hand healthcare specialist. ? Change your dressing as told by your health care provider. ? Keep your dressing dry. ? Leave stitches (sutures), skin glue, or adhesive strips in place. These skin closures may need to stay in place for 2 weeks or longer. If adhesive strip edges start to loosen and curl up, you may trim the loose edges. Do not remove adhesive strips completely unless your health care provider tells you to do that. ??? Check your incision area every day for signs of infection. Check for: ? More redness, swelling, or pain. ? More fluid or blood. ? Warmth. ? Pus or a bad smell. Driving ??? Do not drive for 24 hours if you were given a medicine to help you relax (sedative) during your procedure. ??? If you did not receive a sedative, ask your health care provider when it is safe to drive. Activity ??? Return to your normal activities as told by your health care provider. Ask your health care provider what activities are safe for you. ??? Do not lift anything that is heavier than 10 lb (4.5 kg), or the limit that you are told, until your health care provider says that it is safe. ??? Do not do activities that involve lifting your arms over your head. General instructions ??? Do not use any products that contain nicotine or tobacco, such as cigarettes and e-cigarettes. These can delay healing. If you need help quitting, ask your health care provider. ??? Keep all follow-up visits as told by your health care provider. This is important. Contact a health care provider if: ??? You have more redness, swelling, or pain around your incision. ??? You have more fluid or blood coming from your incision. ??? Your incision feels warm to the touch. ??? You have pus or a bad smell coming from your incision. ??? You have pain that is not relieved by your pain medicine. Get help right away if you have: ??? A fever or chills. ??? Chest pain. ??? Difficulty breathing. Summary ??? After the procedure, it is common to have pain, soreness, swelling, or bruising near your incision. ??? If you were prescribed an antibiotic medicine, take it as told by your health care provider. Do not stop taking the antibiotic even if you start to feel better. ??? Do not drive for 24 hours if you were given a sedative during your procedure. ??? Return to your normal activities as told by your health care provider. Ask your health care provider what activities are safe for you. This information is not intended to replace advice given to you by your health care provider. Make sure you discuss any questions you have with your health care provider. Document Revised: 10/20/2018 Document Reviewed: 10/20/2018 [employer] Patient Education ?? 2020 [employer]. Emergency Awareness and Preventative Care STROKE is [...] Assistance with quitting is available by contacting 0-127-YOKC-NOW. This is a free resource providing counseling, [...] This Visit (last charted value for your 05/06/2021 visit) Specials/Interventional 05/06/2021 1:49 PM XA CVC Remove Tunneled Cath W Pump/Port: XA CVC Remove Tunneled Cath W Pump/Port Patient Name:ASHER BAILEY I have received and understand this information and was given the opportunity to ask questions. Patient/Smooth Stucco Resurfacer Name: Patient/Smooth Stucco Resurfacer Signature: Relationship to Patient: Clinician/Hospital Smooth Stucco Resurfacer Signature: Date: Electronically signed by Wing, [facility] Conversion Durability Engineer Cerner at 01/08/2023 4:02 PM CDT documented in this encounter Plan of Treatment Not on file documented as of this encounter Visit Diagnoses Not on filedocumented in this encounter Care Teams Cst Relationship Specialty Start Date End Date Ana Luisa Herrera PA [address] [place] [address] [place] [address] PCP - General Physician Custodial Manager 10/14/23 documented as of this encounter
--- OUTSIDE RECORDS SUMMARY | 2024-08-03 17:06 | XMS_ITS | Encounter Summary ---
Author Organization [employer] Address [address] [place] [address] Care Team Providers Care Erp Manager Name Role Phone Clifford Newell Primary Care Provider + [phone] Encounter Details Date Type Department Care Team (Late st Contact Info) Description 04/12/2019 Transcribed Document [facility] [place] [address] [place] [address] ProviderAntoinette MD [address] [place] [address] Social History Tobacco Use Types Packs/Day Years Used Date Smoking Tobacco: Never Assessed Comments Unknown Sex and Gender Information Value Date Recorded Sex Assigned at Not on file Legal Sex Female 10:12 AM CDT Gender Identity Not on file Sexual Orientation Not on file documented as of this encounter Miscellaneous Notes * Cerner Conversion Note - Antoinette ProviderMD - 04/12/2019 8:09 AM CDT Nursing Discharge Summary Entered On: 04/12/2019 8:09 EDT Performed On: 04/12/2019 8:09 EDT by SANGEETA CHUN, agronomy specialist Documentation Discharge Date/Time : 04/12/2019 10:02 EDT SANGEETA CHUN, RN - 04/12/2019 10:02 EDT Patient Disposition, General : Discharge Discharge To : Home with ambulatory/outpatient follow-up Mode Of Departure, General Discharge : Ambulatory Accompanied By, Discharge : Other: friend IV Discontinued : Yes Personal Belongings With Patient : Yes Discharge Instructions Reviewed With, Opportunity For Questions Given : Patient Patient Education Completed : Yes Teaching Method : Explanation Teaching Evaluation : Verbalizes understanding SANGEETA CHUN, RN - 04/12/2019 8:09 EDT Electronically signed by Wing [facility] Conversion Director Of Sports Performance Cerner at 01/08/2023 4:26 PM CDT documented in this encounter Plan of Treatment Not on file documented as of this encounter Visit Diagnoses Not on filedocumented in this encounter Care Teams Erp Manager Relationship Specialty Start Date End Date Clifford Newell, MARILEE [address] [place] [address] [place] [address] PCP - General Physician Rerolling Machine Operator 10/14/23 documented as of this encounter
--- OUTSIDE RECORDS SUMMARY | 2024-08-03 17:06 | XMS_ITS | Encounter Summary ---
Author Organization [employer] Address [address] [place] [address] Care Team Providers Care Manager Progressive Care Name Role Phone Unavailable Primary Care Provider Unavailabl e Encounter Details Date Type Department Care Team (Late st Contact Info) Description 12/03/2020 Historic Encounter [address] [address] ProviderYoli Historical Social History Tobacco [...] Comments FREE LIGHT CHAINS GAMMOPATHY PNL, SENDOUT ([facility] BKR DATA CONV) Routine 12/03/2020 12:33 PM EDT CBC W/ AUTO DIFF ([facility]KR DATA CONV) Routine 12/03/2020 12:33 PM EDT AUTOMATED DIFFERENTIAL ([facility] BK DATA CONV) Routine 12/03/2020 12:33 PM EDT CMP COMPREHENSIVE METABOLIC PANEL ([facility] BKR DATA CONV) Routine 12/03/2020 12:33 PM EDT documented in this encounter Results * (ABNORMAL) CMP COMPREHENSIVE METABOLIC PANEL ([facility] BK DATA CONV) (12/03/2020 12:33 PM EDT) Sodium Level 146 136 - 146 mmol/L 12/03/2020 7:53 PM EDT Potassium Level 3.9 3.5 - 5.1 mmol/L 12/03/2020 7:53 PM EDT Chloride Level 113(H) 102 - 112 mmol/L 12/03/2020 7:53 PM EDT Carbon Dioxide Level 28 21 - 32 mmol/L 12/03/2020 7:53 PM EDT Anion Gap 9 9 - 20 12/03/2020 7:53 PM EDT Calcium Level 9.3 8.5 - 10.1 mg/dL 12/03/2020 7:53 PM EDT Glucose Level 91 74 - 106 mg/dL 12/03/2020 7:53 PM EDT Comment: Social Recruiting has become aware of sulfasalazine and sulfapyridine [...] Urea Nitrogen 11 7 - 22 mg/dL 12/03/2020 7:53 PM EDT Creatinine Level 0.68 0.55 - 1.02 mg/dL 12/03/2020 7:53 PM EDT Bun/Creatinine 16.2 8.0 - 20.0 12/03/2020 7:53 PM EDT Albumin Level 3.4 3.4 - 5.0 Gram/dL 12/03/2020 7:53 PM EDT Protein, Total 6.2(L) 6.4 - 8.2 Gram/dL 12/03/2020 7:53 PM EDT A/G Ratio 1.2 1.1 - 2.5 12/03/2020 7:53 PM EDT Alk Phos 50 27 - 136 Units/Lit er 12/03/2020 7:53 PM EDT ALT 34 12 - 78 Units/Lit er 12/03/2020 7:53 PM EDT Comment: Social Recruiting has become aware of sulfasalazine and sulfapyridine [...] prior to administration of the drug. AST 22 5 - 37 Units/Lit er 12/03/2020 7:53 PM EDT Comment: Social Recruiting has become aware of sulfasalazine and sulfapyridine [...] Bilirubin, Total 0.6 0.2 - 1.3 mg/dL 12/03/2020 7:53 PM EDT Comment: Total bilirubin results may be falsely elevated in patients undergoing treatment with eltrombopag (Promacta). Results should be correlated to clinical symptomology and additional laboratory testing including other markers for liver function, e.g., alanine aminotransferase, aspartate aminotransferase, alkaline phosphatase, and/or lactate dehydrogenase. Globulin 2.8 1.5 - 4.5 Gram/dL 12/03/2020 7:53 PM EDT eGFR >60 >=60 mL/min/1. 73m2 12/03/2020 7:53 PM EDT Comment: GFR <60 suggests chronic kidney disease, if found over 3 month period. GFR <15 indicates renal failure. eGFR NonAfrican >60 >=60 mL/min/1. 73m2 12/03/2020 7:53 PM EDT Comment: GFR <60 suggests chronic kidney disease, if found over 3 month period. GFR <15 indicates renal failure. Blood 12/03/2020 12:3 3 PM EDT 12/03/2020 7:26 PM EDT [facility] Historical Provider LAB BLOOD ORDERABLES Fi nal Result [facility] [address] [place] [address], [facility] [phone] * (ABNORMAL) CBC W/ AUTO DIFF ([facility] BKR DATA CONV) (12/03/2020 12:33 PM EDT) WBC 2.8(L) 4.5 - 12.5 x10(3)/uL 12/03/2020 4:49 PM EDT Comment:12/05/2020 10:56:28 E DT specimen sent for slide review on 12/03/20...jdp RBC 3.40(L) 4.50 - 5.20 x10(3)/uL 12/03/2020 4:49 PM EDT Hgb 11.6(L) 12.0 - 16.0 g/dL 12/03/2020 4:49 PM EDT Hct 35.4(L) 36.0 - 46.0 % 12/03/2020 4:49 PM EDT MCV 104.1(H) 80.0 - 100.0 fL 12/03/2020 4:49 PM EDT MCH 34.1(H) 26.0 - 34.0 pg 12/03/2020 4:49 PM EDT MCHC 32.8 31.0 - 37.0 g/dL 12/03/2020 4:49 PM EDT RDW 12.5 12.0 - 16.8 % 12/03/2020 4:49 PM EDT Platelet Count 80(L) 140 - 440 x10(3)/uL 12/03/2020 4:49 PM EDT MPV 11.0(H) 7.4 - 10.4 fL 12/03/2020 4:49 PM EDT Slide Review Technologist 12/03/2020 6:59 PM EDT Comment:no clot in tube, no clumps on slide Blood 12/03/2020 12:3 3 PM EDT 12/03/2020 4:45 PM EDT us [facility] Historical Provider LAB BLOOD ORDERABLES Fi nal Result [facility] [address] [place] [address], [facility] [phone] * (ABNORMAL) FREE LIGHT CHAINS GAMMOPATHY PNL, SENDOUT ([facility] BKR DATA CONV) (12/03/2020 12:33 PM EDT) [place] FLC 12.2 3.3 - 19.4 12/05/2020 8:21 PM EDT Lambda FLC 8.9 5.7 - 26.3 12/05/2020 8:21 PM EDT [place]/Lambda FLC Ratio 1.37 0.26 - 1.65 12/05/2020 8:21 PM EDT Comment: Performed At: [facility] [address] [id number] Odin Stevens PhD Ph:[phone] Protein, Total, Serum 5.6(L) 6.0 - 8.5 g/dL 12/05/2020 8:21 PM EDT Albumin, Serum 3.6 2.9 - 4.4 g/dL 12/05/2020 8:21 PM EDT [facility] Interp. Comment: 2020 8:21 PM EDT Comment:RALPH SHOWS AN ASYMMET RICAL IGA SUGGESTIVE OF A MONOCLONAL PROTEIN SPE Alpha1 Globulin 0.2 0.0 - 0.4 g/dL 12/05/2020 8:21 PM EDT SPE Alpha 2 Globulin 0.7 0.4 - 1.0 g/dL 12/05/2020 8:21 PM EDT SPE Beta Globulin 0.8 0.7 - 1.3 g/dL 12/05/2020 8:21 PM EDT SPE Gamma Globulin 0.4 0.4 - 1.8 g/dL 12/05/2020 8:21 PM EDT MSpike Not Observed Not Observed g/dL 12/05/2020 8:21 PM EDT SPE Globulin, Total 2.0(L) 2.2 - 3.9 g/dL 12/05/2020 8:21 PM EDT SPE A/G Ratio 1.9(H) 0.7 - 1.7 12/05/2020 8:21 PM EDT SPE Note Comment 12/05/2020 8:21 PM EDT Comment: Protein electrophoresis scan will follow via computer, mail, or tune up mechanic delivery. IgA 25(L) 87 - 352 mg/dL 12/05/2020 8:21 PM EDT Comment:Result confirmed on concentration. IgG 431(L) 586 - 1602 mg/dL 12/05/2020 8:21 PM EDT IgM 20(L) 26 - 217 mg/dL 12/05/2020 8:21 PM EDT Comment:Result confirmed on concentration. Blood 12/03/2020 12:3 3 PM EDT 12/03/2020 7:26 PM EDT [facility] Historical Provider LAB BLOOD ORDERABLES nal Result [facility] [address] [phone] * (ABNORMAL) AUTOMATED DIFFERENTIAL ([facility] BKR DATA CONV) (12/03/2020 12:33 PM EDT) Neut% 32.3(L) 45.0 - 80.0 % 12/03/2020 4:49 PM EDT Lymph% 48.4(H) 15.0 - 45.0 % 12/03/2020 4:49 PM EDT [place]% 13.1(H) 0.0 - 10.0 % 12/03/2020 4:49 PM EDT Eos% 5.8(H) 0.0 - 5.0 % 12/03/2020 4:49 PM EDT Baso% 0.4 0.0 - 3.0 % 12/03/2020 4:49 PM EDT Neut# 0.89(L) 2.00 - 8.80 K/uL 12/03/2020 4:49 PM EDT Lymph# 1.33 0.70 - 5.50 K/uL 12/03/2020 4:49 PM EDT [place]# 0.36 0.00 - 1.70 K/uL 12/03/2020 4:49 PM EDT Eos# 0.16 0.00 - 0.80 K/uL 12/03/2020 4:49 PM EDT Baso# 0.01 0.00 - 0.02 K/uL 12/03/2020 4:49 PM EDT Blood 12/03/2020 12:3 3 PM EDT 12/03/2020 4:45 PM EDT Narrative [facility] - 12/03/2020 4:49 PM EDT Added by Discern Expert us Sle Historical Provider LAB BLOOD ORDERABLES Fi nal Result [facility] [address] [place] [address] documented in this encounter Visit Diagnoses Not on filedocumented in this encounter
--- OUTSIDE RECORDS SUMMARY | 2024-08-03 17:06 | XMS_ITS | Encounter Summary ---
Author Organization [employer] Address [address] [place] [address] Care Team Providers Care Payment Manager Name Role Phone Clifford Newell Primary Care Provider + [phone] Encounter Details Date Type Department Care Team (Late st Contact Info) Description 05/06/2021 Transcribed Document [facility] [place] [address] [place] [address] ProviderAntoinette MD [address] [place] [address] Social History Tobacco Use Types Packs/Day Years Used Date Smoking Tobacco: Never Assessed Comments Unknown Sex and Gender Information Value Date Recorded Sex Assigned at Not on file Legal Sex Female 10:12 AM CDT Gender Identity Not on file Sexual Orientation Not on file documented as of this encounter Miscellaneous Notes * Cerner Conversion Note - Antoinette ProviderMD - 05/06/2021 1:51 PM CDT Patient: ASHER BAILEY Age: 60 years Sex: Female : 1960 Associated Diagnoses: None Author: DEBBY BELTRÁN PA Postoperative Information The patient presents for a tunneled port-a-cath removal requiring sedation. Review of Systems Constitutional: Negative. Eye: Negative. Ear/Nose/Mouth/Throat: Negative. Respiratory: Negative. Cardiovascular: Negative. Gastrointestinal: Negative. Genitourinary: Negative. Hematology/Lymphatics: Negative. Endocrine: Negative. Immunologic: Negative. Musculoskeletal: Negative. Integumentary: Negative. Neurologic: Negative. Psychiatric: Negative. All other systems are negative Health Status Allergies: Allergic Reactions (Selected) Severity Not Documented Ampicillin- No reactions were documented. Codeine- No reactions were documented. Indomethacin- No reactions were documented. Morphine- No reactions were documented. Penicillin- No reactions were documented., Allergies (5) Active Reaction ampicillin None Documented codeine None Documented indomethacin None Documented morphine None Documented penicillin None Documented Current medications: (Selected) Inpatient Medications Ordered Xgeva: 120 mg, SubCutaneous, 1-Time Xgeva: 120 mg, SubCutaneous, 1-Time Documented Medications Documented BuSpar: 30 mg, Oral, BID, 0 Refill(s) Cerovite Advanced Formula oral tablet: 1 Tab, Oral, Daily, 30 Tab, 0 Refill(s) LORazepam 0.5 mg oral tablet: 1 Tab, Oral, BID, PRN: as needed for anxiety, 0 Refill(s) Melatonin: 10 mg, Oral, At Bedtime, 0 Refill(s) Xarelto 20 mg oral tablet: 1 Tab, Oral, QPM, 30 Tab, 0 Refill(s) acyclovir 800 mg oral tablet: 1 Tab, Oral, BID, 14 Tab, 0 Refill(s) albuterol: 2 puffs, Q4H, PRN: as needed for wheezing, 0 Refill(s) baclofen: 20 mg, Oral, BID, 0 Refill(s) biotin 5000 mcg oral capsule: 2 Cap, Oral, BID, 0 Refill(s) ergocalciferol 50,000 intl units (1.25 mg) oral capsule: 1 Cap, Oral, Weekly, 0 Refill(s) gabapentin: 300 mg, Oral, TID, 0 Refill(s) loratadine 10 mg oral tablet: 1 Tab, Oral, Daily, 0 Refill(s) meclizine 25 mg oral tablet: 1 Tab, Oral, BID, 60 Tab, 0 Refill(s) metoprolol succinate 25 mg oral capsule, extended release: 1 Cap, Oral, Daily, 0 Refill(s) nitroglycerin: 0.4 mg, SubLINgual, Q5Min, PRN: as needed for chest pain, 0 Refill(s) raNITIdine: 150 mg, Oral, BID, 0 Refill(s) simvastatin: 10 mg, Oral, Daily, 0 Refill(s) traMADol 50 mg oral tablet: 1 Tab, Oral, Q12H, PRN: as needed for pain, 0 Refill(s), Home Medications (18) Active acyclovir 800 mg oral tablet 800 mg = 1 Tab, Oral, BID albuterol 2 puffs, PRN, Q4H baclofen 20 mg, Oral, BID biotin 5000 mcg oral capsule 2 Cap, Oral, BID BuSpar 30 mg, Oral, BID Cerovite Advanced Formula oral tablet 1 Tab, Oral, Daily ergocalciferol 50,000 intl units (1.25 mg) oral capsule 50,000 Int Units = 1 Cap, Oral, Weekly gabapentin 300 mg, Oral, TID loratadine 10 mg oral tablet 10 mg = 1 Tab, Oral, Daily LORazepam 0.5 mg oral tablet 0.5 mg = 1 Tab, PRN, Oral, BID meclizine 25 mg oral tablet 25 mg = 1 Tab, Oral, BID Melatonin 10 mg, Oral, At Bedtime metoprolol succinate 25 mg oral capsule, extended release 25 mg = 1 Cap, Oral, Daily nitroglycerin 0.4 mg, PRN, SubLINgual, Q5Min raNITIdine 150 mg, Oral, BID simvastatin 10 mg, Oral, Daily traMADol 50 mg oral tablet 50 mg = 1 Tab, PRN, Oral, Q12H Xarelto 20 mg oral tablet 20 mg = 1 Tab, Oral, QPM , No qualifying data available Problem list: All Problems History of obstructive sleep apnea / IMO 58822493 / Confirmed High blood pressure / SNOMED CT 61275028 / Confirmed Hyperlipidemia / SNOMED CT 43901772 / Confirmed Asthma / SNOMED CT 271066044 / Confirmed Sleep apnea / SNOMED CT 549790683 / Confirmed Multiple myeloma / SNOMED CT 128210678 / Confirmed Arthritis / SNOMED CT 7440664 / Confirmed Back pain / SNOMED CT 5494362010 / Confirmed, Active Problems (8) Arthritis Asthma Back pain High blood pressure History of obstructive sleep apnea Hyperlipidemia Multiple myeloma Sleep apnea Histories Past Medical History: No active or resolved past medical history items have been selected or recorded. Family History: No family history items have been selected or recorded. Procedure history: Hysterectomy ([id number]). patch on ear. gastric sleeve. knee replacement- left. Port ([id number]). Social History Social & Psychosocial Habits Alcohol 12/01/2019 Alcohol Use History, Social Habits No Substance Abuse 12/01/2019 Recreational Drug Use History No Tobacco 04/12/2019 Smoking Status Former smoker, quit more Packs/Tins Daily .5 Month Tobacco Last Used never smoked regularly . Physical Examination VS/Measurements Vital Signs/Vital Measures 05/06/2021 12:45 EDT Systolic Blood Pressure 114 mmHg Diastolic Blood Pressure 70 mmHg Temperature Source Temporal artery scanning Temperature Mode Fahrenheit Temperature, Fahrenheit 97.2 Deg F Heart Rate Monitored 69 bpm Respiratory Rate 18 Breaths/Min Oxygen Saturation 98 % Oxygen Therapy Mode Room air , Measurements from flowsheet : Measurements 05/06/2021 12:46 EDT Height Source Stated Height Entry Format [place] Height/Length, BANGLADESHI (ft) 5 ft Height/Length BANGLADESHI 9 Inch CLINICALHEIGHT 175.26 cm [place] Body Weight 66 kg Weight Source Standing scale Weight Entry Format [place] Weight Latvian lb 239 lb CLINICALWEIGHT 108.64 kg Body Surface Area (BSA) 2.23 m2 Body Mass Index 35.4 kg/m2 HI General: No acute distress. Respiratory: Lungs are clear to auscultation. Cardiovascular: Normal rate, No murmur. Gastrointestinal: Non-distended. Neurologic: Alert. Review / Management Results review: No qualifying data available. Impression and Plan Proceed with ordered procedure/exam . documented in this encounter Plan of Treatment Not on file documented as of this encounter Visit Diagnoses Not on filedocumented in this encounter Care Teams Payment Manager Relationship Specialty Start Date End Date Clifford Newell PA [address] [place] [address] Dr Portillo, JERAD [phone] PCP - General Physician Shadowgraph Operator 10/14/23 documented as of this encounter
--- OUTSIDE RECORDS SUMMARY | 2024-08-03 17:06 | XMS_ITS | Encounter Summary ---
Author Organization [employer] Address [address] [place] [address] Care Team Providers Care Gritting Machine Operator Name Role Phone Clifford Newell Primary Care Provider + [phone] Encounter Details Date Type Department Care Team (Late st Contact Info) Description 05/06/2021 Transcribed Document [facility] [place] [address] [place] [address] ProviderAntoinette MD [address] [place] [address] Social History Tobacco Use Types Packs/Day Years Used Date Smoking Tobacco: Never Assessed Comments Unknown Sex and Gender Information Value Date Recorded Sex Assigned at Not on file Legal Sex Female 10:12 AM CDT Gender Identity Not on file Sexual Orientation Not on file documented as of this encounter Miscellaneous Notes * Cerner Conversion Note - Antoinette Rae MD - 05/06/2021 2:36 PM CDT Patient Education Materials Follows: Moderate Conscious Sedation, Adult, Care After These [...] you are awake and alert. ??? Take [id number] and prescription medicines only as told by [...] provider. Document Revised: 08/19/2018 Document Reviewed: 12/26/2016 [employer] Patient Education ? 2020 [employer] Surgery Implanted Port Removal, Care After This sheet [...] these instructions at home: Medicines ??? Take [id number] and prescription medicines only as told by [...] and water are not available, use hand core finisher. ? Change your dressing as told by [...] provider. Document Revised: 10/20/2018 Document Reviewed: 10/20/2018 [employer] Patient Education ? 2020 [employer]. documented in this encounter Plan of Treatment Not on file documented as of this encounter Visit Diagnoses Not on filedocumented in this encounter Care Teams Gritting Machine Operator Relationship Specialty Start Date End Date Clifford Newell PA [address] [place] [address] [place] Ling [phone] PCP - General Physician Hr Recruiter 10/14/23 documented as of this encounter
--- OUTSIDE RECORDS SUMMARY | 2024-08-03 17:06 | XMS_ITS | Encounter Summary ---
Author Organization [email or web address] Address [address] [place] [address] Care Team Providers Care Revenue Cycle Specialist Name Role Phone Unavailable Primary Care Provider Unavailabl e Encounter Details Date Type Department Care Team (Late st Contact Info) Description 12/01/2019 Historic Encounter [address] [address] Provider, [facility] Historical Social History Tobacco Use Types [...] FREE LIGHT CHAINS GAMMOPATHY PNL, SENDOUT ([facility] BKR DATA CONV) Routine 12/18/2019 9:14 AM EDT PT/INR PROTHROMBIN TIME ([facility] BKR DATA CONV) Routine 12/01/2019 7:00 AM EDT documented in this encounter Results * (ABNORMAL) FREE LIGHT CHAINS GAMMOPATHY PNL, SENDOUT ([facility] BKR DATA CONV) (12/18/2019 9:14 AM EDT) Tye FLC 4.8 3.3 - 19.4 12/19/2019 6:10 PM EDT Lambda FLC 3.2(L) 5.7 - 26.3 12/19/2019 6:10 PM EDT Tye/Lambda FLC Ratio 1.50 0.26 - 1.65 12/19/2019 6:10 PM EDT Comment: Performed At: [facility] [id number] Odin Stevens PhD Ph:[phone] Protein, Total, Serum 6.5 6.0 - 8.5 g/dL 12/19/2019 6:10 PM EDT Albumin, Serum 3.5 2.9 - 4.4 g/dL 12/19/2019 6:10 PM EDT [employer]ofix. Interp. Comment 2019 6:10 PM EDT Comment: Immunofixation shows IgG monoclonal protein with kappa light chain specificity. Please note that samples from patients receiving DARZALEX(R) (daratumumab) treatment can appear as an IgG kappa and mask a complete response. If this patient is receiving GINNY, this RALPH assay interference can be removed by ordering test number [id number]- Immunofixation, Daratumumab- Specific, Serum and submitting a new sample for testing or by calling the lab to add this test to the current sample. Immunofixation shows IgA monoclonal protein with lambda light chain specificity. SPE Alpha1 Globulin 0.2 0.0 - 0.4 g/dL 12/19/2019 6:10 PM EDT SPE Alpha 2 Globulin 0.9 0.4 - 1.0 g/dL 12/19/2019 6:10 PM EDT SPE Beta Globulin 1.4(H) 0.7 - 1.3 g/dL 12/19/2019 6:10 PM EDT SPE Gamma Globulin 0.5 0.4 - 1.8 g/dL 12/19/2019 6:10 PM EDT MSpike Comment: Not Observed g/dL 12/19/2019 6:10 PM EDT Comment: MONOCLONAL IGA LAMBDA = 0.4 G/DL MONOCLONAL IGG KAPPA = 0.1 G/DL SPE Globulin, Total 3.0 2.2 - 3.9 g/dL 12/19/2019 6:10 PM EDT SPE A/G Ratio 1.2 0.7 - 1.7 12/19/2019 6:10 PM EDT SPE Note Comment 12/19/2019 6:10 PM EDT Comment: Protein electrophoresis scan will follow via computer, mail, or valet parking attendant delivery. IgA 352 87 - 352 mg/dL 12/19/2019 6:10 PM EDT IgG 570(L) 586 - 1602 mg/dL 12/19/2019 6:10 PM EDT Comment:Please note refere nce interval change IgM 22(L) 26 - 217 mg/dL 12/19/2019 6:10 PM EDT Comment:Result confirmed on concentration. Blood 12/18/2019 9:14 AM EDT 12/18/2019 4:29 PM EDT [facility] Historical Provider LAB BLOOD ORDERABLES Critical access hospital Result Performing Organization Address City/State/[facility] Co de Phone Number [facility] [address] [phone] * PT/INR PROTHROMBIN TIME ([facility] BKR DATA CONV) (12/01/2019 7:00 AM EDT) PT 10.7 9.6 - 12.0 Second(s) 12/01/2019 11:39 AM EDT INR 1.0 0.9 - 1.1 12/01/2019 11:39 AM EDT Comment: DIAGNOSIS ?THERAPEUTIC RANGE a) Primary and secondary prevention of ?2.0-3.0 venous thrombosis b) Active venous thrombosis, pulmonary ?2.0-4.0 embolism and prevention of recurrent venous thrombosis c) Prevention of arterial thromboembolism ? 3.0-4.5 including patients with mechanical heart valves Blood 12/01/2019 7:00 AM EDT 12/01/2019 11:28 AM EDT us Sle Historical Provider LAB BLOOD ORDERABLES Fi nal Result [facility] [address] [phone] documented in this encounter Visit Diagnoses Not on filedocumented in this encounter
--- OUTSIDE RECORDS SUMMARY | 2024-08-03 17:07 | XMS_ITS | Encounter Summary ---
Author Organization [employer] Address [address] [place] [address] Care Team Providers Care Hair Boiler Operator Name Role Phone Unavailable Primary Care Provider Unavailabl e Encounter Details Date Type Department Care Team (Late st Contact Info) Description 12/09/2018 Historic Encounter [address] [address] ProviderYoli Historical Social History Tobacco [...] Diagnosis Comments CBC W/ AUTO DIFF Routine 12/09/2018 4:01 PM EDT C-REACTIVE PROTEIN Routine 12/09/2018 4: 01 PM EDT SEDIMENTATION RATE Routine 12/09/2018 4: 01 PM EDT documented in this encounter Results * (ABNORMAL) C-Reactive Protein (12/09/2018 4:01 PM EDT) CRP < 0.2(L) <1.0 mg/dL [facility] 12/09/2018 4:01 PM EDT [facility] Provider LAB BLOOD ORDERABLES Fi nal Result [facility] [address] [phone] * (ABNORMAL) Sedimentation rate (12/09/2018 4:01 PM EDT) Sed Rate 117(H) 0 - 30 mm/Hr [facility] 12/09/2018 4:01 PM EDT [facility] Provider LAB BLOOD ORDERABLES Fi nal Result Performing Organization Address [facility] Co de Phone Number [facility] [address] [phone] * (ABNORMAL) CBC with automated diff (12/09/2018 4:01 PM EDT) % Baso 0.9 0.1 - 1.2 % [facility] MCV 103(H) 79 - 95 [facility] % Neutros 46.2 34.0 - 71.1 [facility] Immature Granulocytes-Re lative 0.2 0.0 - 0.5 % [facility] WBC 4.7 4.0 - 10.0 [facility] MCH 32.1 25.6 - 32.2 pg [facility] % Lymphs 44.8 19.3 - 51.7 % [facility] RBC 3.21(L) 3.93 - 5.22 [facility] MCHC 31.2(L) 32.2 - 35.5 [facility] % Monos 6.6 4.7 - 12.5 % [facility] Hemoglobin 10.3(L) 11.2 - 15.7 [facility] RDW 12.9 11.7 - 14.4 % [facility] % Eos 1.3 0.7 - 5.8 % [facility] Hematocrit 33.0(L) 34.1 - 44.9 % [facility] Platelets 141(L) 182 - 369 [facility] 12/09/2018 4:01 PM EDT us Sle Historical Provider LAB BLOOD ORDERABLES Fi nal Result Performing Organization Address City/State/[facility] Co de Phone Number [facility] [address] [phone] documented in this encounter Visit Diagnoses Not on filedocumented in this encounter
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
[2024-08-03 17:15] LABS: Appearance,Urine CLEAR (Clear); Blood, Urine 3+ (Negative); Color,Urine YELLOW (Yellow); Glucose,Urine (UA) Negative (Negative); Ketones,Urine Negative (Negative); Leukocyte Esterase,Urine 1+ (Negative); Nitrate,Urine Negative (Negative); Protein,Urine 1+ (Negative)
[2024-08-03 17:36] LABS: Bilirubin,Urine Negative (Negative)
[2024-08-03 17:40] LABS: Amorphous Sediment,Urine 4+ /lpf; Squamous Epithelial Cell,Urine 20-50 #/hpf (0-5); WBC,Urine 20-50 #/hpf (0-3)
== END 2024-08-03 23:59 | disposition home or self-care (01) ==
LOC: LAB.DROPOF 16:52
PROVIDERS: PCP Family Medicine Hospice and Palliative Medicine; Visit Provider Family Medicine Hospice and Palliative Medicine
DX: C90.00 Multiple myeloma not having achieved remission (principal)
CPT/HCPCS: 81001; 87086